=== PATIENT | male | born 1945 | race Caucasian/White ===

== ENCOUNTER 2024-02-11 08:04 | Inpatient (IN) | payer MEDICARE, OTHER, SELFPAY ==
[2024-02-11] VITALS (35 sets, daily range): BP systolic 111–161; BP diastolic 67–101; PULSE 85–124; RESP 16–28; TEMP 36.2–36.8; O2SAT 67–100
--- NOTE | ~2024-02-11 | XR_ITS ---
EXAMINATION: XR chest 1V portable DATE: 02/13/2024 08:03 INDICATION: Shortness of breath. TECHNIQUE: A single frontal view of the chest was obtained. COMPARISON: Chest 2 views 02/11/2024, chest CT 02/12/2024 FINDINGS: There are lucencies in the lungs, consistent with emphysema. There are small pleural effusi ons. There are airspace opacities in the mid and lower lung zones. No pneumothorax. The heart size is normal. IMPRESSION: 1. Airspace opacities in the mid and lower lung zones with mild worsening, consistent with atelectasi s versus pneumonia. 2. Emphysema. 3. Stable small pleural effusions. Reviewed, dictated and finalized at location A. ON OPERATOR IMPRESSION: 1. Airspace opacities in the mid and lower lung zones with mild worsening, cons istent with atelectasis versus pneumonia. 2. Emphysema. 3. Stable small pleural effusions.
--- NOTE | ~2024-02-11 | XR_ITS ---
EXAMINATION: XR chest 2V DATE: 02/11/2024 09:00 INDICATION: Shortness of breath. COPD. TECHNIQUE: frontal and lateral views of the chest were obtained. COMPARISON: None FINDINGS: Interstitial and airspace opacities in the bilateral lower lung zones. There are also small bilateral pleural effusions. No pneumothorax. Cardiomegaly. Severe thoracic spondylosis. Surgical clip project s of the central upper abdomen. IMPRESSION: 1. Opacities in the lower lung zones which could represent either congestive heart failure related mi ld pulmonary edema or pneumonia. 2. Small bilateral pleural effusions. Reviewed, dictated and finalized at location A. OR TECHNICAL WRITER IMPRESSION: 1. Opacities in the lower lung zones which could represent either congestive he art failure related mild pulmonary edema or pneumonia. 2. Small bilateral pleural effusions.
--- NOTE | ~2024-02-11 | CT_ITS ---
EXAMINATION: CTA chest PE protocol DATE: 02/12/2024 13:03 MANAGER GALLERY INDICATION: Pulmonary embolus suspected clinically TECHNIQUE: Computed tomographic angiography (CTA) of the chest was performed with 100 mL Omnipaque-35 0 intravenous contrast. The dose-length product was 182.95 mGy-cm. Maximum intensity projection 3D-re constructions of the aorta and other arteries were constructed by the technologist on a separate work station. COMPARISON: None. FINDINGS: No filling defect within the main or proximal pulmonary arteries. The main pulmonary artery is not enlarged. Calcified atherosclerotic disease within the thoracic aorta without aneurysmal dilatation. Retained fluid within the esophagus with an air-fluid level. Bilateral pleural effusions with adjacent compressive atelectasis. Panlobular emphysematous disease is noted. Bibasilar interstitial thickening is present. Full evaluation for the presence or absence of pulmonary nodules is limited secondary to the rapid re spiratory rate and motion artifact. No mediastinal lymphadenopathy is noted. Within the upper abdomen: Retained gastric contents within the stomach. The bilateral adrenal glands are unremarkable. No acute fractures. No lytic or blastic lesions identified. IMPRESSION: No pulmonary embolus. No aortic dilatation. Bilateral pleural effusions with adjacent compressive atelectasis. Motion artifact precludes adequate evaluation for the presence or absence of pulmonary nodules. Panlobular emphysematous disease. Air-fluid level within the esophagus. Reviewed, dictated and finalized at location A. GER GALLERY IMPRESSION: No pulmonary embolus. No aortic dilatation. Bilateral pleural effusions with adjacent compressive atelectasis. Motion artifact precludes adequate evaluation for the presence or absence of pu lmonary nodules. Panlobular emphysematous disease. Air-fluid level within the esophagus.
--- NOTE | ~2024-02-11 | XR_ITS ---
EXAMINATION: XR barium swallow modified DATE: 02/12/2024 13:14 INDICATION: Witnessed cough with oral intake. TECHNIQUE: The patient was given barium-containing material of multiple consistencies to swallow by t nestor speech pathologist while I performed fluoroscopy. Fluoroscopy exposure time was 2.0 minutes. The n umber of fluoroscopy images saved to the PACS was 1. Dose-area product was 1.27 Gy-cm^2. FINDINGS: There is reduced laryngeal elevation, reduced tongue base retraction, reduced pharyngeal squeeze, genesis lecular residue, pyriform sinus residue, pharyngeal wall residue, laryngeal penetration, and aspirati on. IMPRESSION: 1. Aspiration of all consistencies. 2. Please refer to the speech therapy report for recommendations. Reviewed, dictated and finalized at location A. OS ARCHITECT
--- NOTE | 2024-02-11 08:14 | ECG_ITS ---
Test Date: 2024-02-11 08:22:24 Measurements Intervals [place] Rate: 116 P: 68 IN: 169 QRS: 79 QRSD: 92 T: 46 QT: 317 QTc: 440 Interpretive Statements SINUS TACHYCARDIA NONSPECIFIC ST ELEVATION [0.05+ mV ST ELEVATION] ABNORMAL RHYTHM ECG No previous ECG available for comparison Electronically Signed On 02-16-2024 10:14:19 DIRECTOR OPERATING by Bib Ventura M.D.
[2024-02-11 08:23] LABS: Basophils Percent Auto 0.4 % (0.2-1.2); Eosinophils Absolute Auto 0.1 K/mm3 (0-0.3); Eosinophils Percent Auto 1.2 % (0-4.4); Hematocrit 38.6 % (42.0-52.0); Hemoglobin 11.9 g/dL (14.0-18.0); Immature Granulocyte Absolute 0.04 K/mm3 (0.00-0.031); Immature Granulocyte Percent A 0.4 % (0-0.5); Lymphocytes Absolute Auto 2.09 K/mm3 (0.9-3.2); Mean Corpuscular HGB Conc 30.8 g/dl (32-36); Mean Corpuscular Hemoglobin 28.6 pg (26-34); Mean Corpuscular Volume 92.8 fl (80-100); Mean Platelet Volume 10.7 fl (7.4-10.4); Monocytes Percent Auto 9.3 % (2.6-8.5); Neutrophils Absolute Auto 7.7 K/mm3 (1.3-6.7); Neutrophils Percent Auto 69.7 % (45.5-73.1); Platelet Count Result 539 k/mm3 (150-375); Red Blood Count 4.16 M/mm3 (4.6-6.20); Red Cell Distribution Width 15.9 % (11.5-14.5)
--- NOTE | 2024-02-11 08:30 | PC.NURSE ---
Upon arrival to ED, pt O2 sats 70% room air. Pt placed on 15L non-rebreather and sats elevated to 95%. Pt reports SOB had some improvement. Pt placed on 4L NC but unable to maintain O2 sats WNL. O2 dropped to 86% on 4L NC. Pt placed back on non-rebreather on 8L. made aware.
[2024-02-11 08:35] LABS: Alanine Aminotransferase 11 U/L (6-50); Albumin Level 3.9 g/dL (3.5-5.1); Alkaline Phosphatase 183 U/L (38-126); Anion Gap -1 mmol/L (4-12); Aspartate Amino Transferase 19 U/L (17-59); Bilirubin,Total 0.8 mg/dL (0.2-1.3); Blood Urea Nitrogen 19 mg/dL (9-20); Calcium 9.3 mg/dL (8.4-10.2); Carbon Dioxide 39 mmol/L (22-30); Chloride 99 mmol/L (98-107); Estimated CRCL calculation 62 ml/min; Estimated Glomerular Filt Rate > 60; Glucose 131 mg/dL (65-110); Potassium 4.2 mmol/L (3.4-5.0); Sodium 137 mmol/L (137-145)
[2024-02-11 08:46] LABS: Hypochromasia 1+; Platelet Estimate Increased (Adequate); Schistocytes None Seen
[2024-02-11 09:23] LABS: Alveolar/Arterial O2 Gradient 587.3 mmHg; Base Excess ABG 7.1 mEq/l (+/-2.0); Fractional Inspired Oxygen 100 %; HCO3 ABG 32.9 mEq/l (22.0-26.0); Methemoglobin ABG 0.1 %THb (0-1.5); Oxygen Content ABG 14.9 %vol (16.0-22.0); Oxygen Saturation ABG 94.6 % (95.0-100.0); Oxyhemoglobin 92.9 % THb (90.0-100.0); PCO2 ABG 52.9 mmHg (35.0-45.0); PO2 ABG 72.8 mmHg (80.0-100.0); PO2 FiO2 Ratio Arterial Blood 0.73 %; Total Hemoglobin 11.4 g/dL (12.0-18.0); pH ABG 7.412 (7.350-7.450)
[2024-02-11 09:24] LABS: Device NON-REBREATHER MASK; Modified Allen's Test Pass; Site Drawn RIGHT RADIAL
--- NOTE | 2024-02-11 09:29 | PC.NURSE ---
ED RT placed pt back on NC 6L.
[2024-02-11] MEDS: IPRATROPIUM 0.5 MG/ALBUTEROL SULFATE 2.5 MG AMPUL.NEB 3 ML INHALATION (09:37)
[2024-02-11] MEDS: ALBUTEROL SULFATE NEB 2.5 MG/3 ML INH INHALATION (09:37)
--- NOTE | 2024-02-11 10:16 | ED.SOB ---
HPI - SOB/Dyspnea General Chief Complaint: Shortness of Breath/Dyspnea <NATHAN Bryan Last Filed: 02/11/24 16:33> Stated Complaint: SOB <NATHAN Bryan Last Filed: 02/11/24 16:33> Time Seen by Provider: 02/11/24 09:04 <NATHAN Bryan Last Filed: 02/11/24 16:33> Source: patient, EMS and old records reviewed <NATHAN Bryan Last Filed: 02/11/24 16:33> Mode of arrival: EMS <NATHAN Bryan Last Filed: 02/11/24 16:33> Limitations: no limitations <NATHAN Bryan Last Filed: 02/11/24 16:33> History of Present Illness HPI Narrative: Patient is a 78-year-old male, past medical history of COPD, CHF, seizure disorder on Keppra, aortic valve stenosis, mitral valve stenosis, CAD, pulmonary HTN, DM, who presents to the ED via EMS with report of SOB. Per records, patient was admitted to [facility] on 02/08 from [facility] s/p cardiac arrest, AMS with possible CVA, NSTEMI, sepsis. Per staff at [facility], patient became acutely dyspneic today and was noted to be hypoxic down into the 70s. He does wear 2 L nasal cannula at night, this does not typically require oxygen supplementation throughout the day. Was placed on non-rebreather. Was given a nebulizer treatment and Solu-Medrol in route to the ED. Patient reports having diffuse chest pressure, recent cough, subjective fevers. Denies lower ext swelling <NATHAN Bryan Last Filed: 02/11/24 16:33> Related Data Home Medications: Home Medications ?Medication ?Instructions ?Recorded ?Confirmed ?Last Taken ?Type apixaban 5 mg tablet 5 mg PO BID 02/09/24 02/11/24 02/11/24 History aspirin 81 mg capsule 81 mg PO DAILY 02/09/24 02/11/24 02/11/24 History atorvastatin 80 mg tablet 80 mg PO HS 02/09/24 02/11/24 02/11/24 History cholecalciferol (vitamin D3) 25 25 mcg PO DAILY 02/09/24 02/11/24 02/11/24 History mcg (1,000 unit) chewable tablet (Vitamin D3) ferrous sulfate 325 mg (65 mg 325 mg PO .3x week 02/09/24 02/11/24 02/11/24 History iron) tablet (Feosol) finasteride 5 mg tablet 5 mg PO DAILY 02/09/24 02/11/24 02/11/24 History levetiracetam 1,000 mg tablet 1,000 mg PO BID 02/09/24 02/11/24 02/11/24 History (Keppra) lidocaine 4 % topical patch 1 patch topical Q24H 02/09/24 02/11/24 02/11/24 History (Aspercreme (lidocaine)) pantoprazole 40 mg tablet,delayed 40 mg PO QAM 02/09/24 02/11/24 02/11/24 History release polyethylene glycol 3350 17 gram 17 g PO DAILY 02/09/24 02/11/24 02/11/24 History oral powder packet (Miralax) prednisone 10 mg tablet 5 mg PO DIRECTED 02/09/24 02/11/24 02/11/24 History quetiapine 50 mg tablet 50 mg PO HS 02/09/24 02/11/24 02/11/24 History sennosides 8.6 mg-docusate sodium 1 tab-cap PO BID 02/09/24 02/11/24 02/11/24 History 50 mg tablet (Senna with Docusate Sodium) tiotropium 2.5 mcg-olodaterol 2.5 2 inh inhalation DAILY 02/09/24 02/11/24 02/11/24 History mcg/actuation mist for inhalation (Stiolto Respimat) tramadol 50 mg tablet 50 mg PO BID PRN moderate or more 02/09/24 02/11/24 02/11/24 History severe pain albuterol sulfate 2.5 mg/3 mL 2.5 mg inhalation Q6H PRN 02/10/24 02/11/24 02/11/24 History (0.083 %) solution for nebulization shortness of breath albuterol sulfate 90 mcg/actuation 1 puff inhalation QID PRN wheezing 02/10/24 02/11/24 02/11/24 History aerosol inhaler lacosamide 100 mg tablet 100 mg PO Q12H 02/10/24 02/11/24 02/11/24 History melatonin 5 mg tablet 5 mg PO HS PRN sleep 02/10/24 02/11/24 02/11/24 History potassium chloride 10 mEq 20 meq PO DAILY 02/10/24 02/11/24 02/10/24 History tablet,extended release(part/cryst) (Klor-Con M) bumetanide 2 mg tablet 2 mg PO DAILY 02/11/24 02/11/24 02/11/24 History mometasone-formoterol HFA 200 2 inh inhalation Q12H 02/11/24 02/11/24 02/11/24 History mcg-5 mcg/actuation aerosol inhaler (Dulera) <Martina Manning PA-C - Last Filed: 02/11/24 16:33> Allergies/Adverse Reactions: Allergies Allergy/AdvReac Type Severity Reaction Status Date / Time gabapentin Allergy Mild Rash Verified 02/09/24 21:42 <Martina Manning PA-C - Last Filed: 02/11/24 16:33> Review of Systems Review of Systems: All systems reviewed & are unremarkable except as noted in HPI. <Martina Manning PA-C - Last Filed: 02/11/24 16:33> All systems reviewed & are unremarkable except as noted in HPI and below <Martina Manning PA-C - Last Filed: 02/11/24 16:33> [facility] Family History Family History: Family History (Updated 02/11/24 @ 18:51 by Joanne Jameson RN) Mother COPD (chronic obstructive pulmonary disease) Diabetes mellitus Father Colon cancer <Martina Manning PA-C - Last Filed: 02/11/24 16:33> Social History Social History: Social History Smoking packs per day: 0.5 Smoking cigarettes per day: 10.0 Smoking status: Current every day smoker Second hand tobacco smoke exposure: Yes Alcohol intake: never Substance use: never Substance use type: does not use Do You Feel Safe in your Home?: Yes Lack of Transportation: No Lack of Food: Never True Current Housing: I Have Housing Concerned About Future Housing: No Difficulty Paying Gas/Electric Bills: No Difficulty Paying for Meds: No Currently Unemployed: No Education: High School Diploma/GED Difficulty w/ Childcare or Family Care: No Spiritual care concerns: No <Martina Manning PA-C - Last Filed: 02/11/24 16:33> Exam Narrative: GENERAL: Chronically ill/elderly appearing, thin, in mild acute distress. HEAD: Normocephalic, atraumatic. RESPIRATORY: Airway patent, respirations labored and tachypneic. Some accessory muscle use. Diffuse rhonchi and crackles throughout bases bilaterally. Occasional expiratory wheezing heard throughout right mid lung field. CARDIOVASCULAR: Tachycardic with regular rhythm without murmurs, rubs, or gallops. ABDOMINAL: Soft, nontender, nondistended. Normoactive BS. MUSCULOSKELETAL: Moves all extremities. No gross deformities. No peripheral edema. SKIN: Warm, dry, normal color. NEURO: A&O X3. Speech clear. Able to answer all questions appropriately. Cranial nerves II-XII grossly intact. Steady gait. No ataxic movements. No focal deficits. PSYCHIATRIC: Appropriate mood and affect. Normal interaction. <Martina Manning PA-C - Last Filed: 02/11/24 16:33> Course RN NIGHT/PA Physician Supervision I was notified when this patient came in that they were initially hypoxic at 88% but that oxygen settings were being tweaked. Subsequently saw on the monitor that they were saturating 95-96%. Patient was evaluated by the PA and I am notified that they were being admitted. I otherwise did not personally evaluate this patient but was available for consultation and was not involved in their care. <Lorelei Harrell MD - Last Filed: 02/11/24 21:53> Vital Signs Vital signs: Vital Signs Temperature 97.2 F L 02/11/24 08:01 Pulse Rate 113 H 02/11/24 08:01 Respiratory Rate 24 H 02/11/24 08:01 Blood Pressure 148/80 H 02/11/24 08:01 Pulse Oximetry 95 02/11/24 08:01 Oxygen Delivery Non-Rebreather Mask 02/11/24 08:01 Oxygen Flow Rate 15 02/11/24 08:01 Temperature 97.2 F L 02/11/24 21:32 Pulse Rate 85 02/11/24 21:32 Respiratory Rate 20 02/11/24 21:32 Blood Pressure 134/72 02/11/24 21:32 Pulse Oximetry 99 02/11/24 21:32 Oxygen Delivery High Flow Therapy with Nasal Cannula 02/11/24 11:59 Oxygen Flow Rate 6 02/11/24 11:59 Fraction of Inspired Oxygen 44 02/11/24 09:38 <Martina Manning PA-C - Last Filed: 02/11/24 16:33> Vital Signs Temperature 97.2 F L 02/11/24 08:01 Pulse Rate 113 H 02/11/24 08:01 Respiratory Rate 24 H 02/11/24 08:01 Blood Pressure 148/80 H 02/11/24 08:01 Pulse Oximetry 95 02/11/24 08:01 Oxygen Delivery Non-Rebreather Mask 02/11/24 08:01 Oxygen Flow Rate 15 02/11/24 08:01 Temperature 97.2 F L 02/11/24 21:32 Pulse Rate 85 02/11/24 21:32 Respiratory Rate 20 02/11/24 21:32 Blood Pressure 134/72 02/11/24 21:32 Pulse Oximetry 99 02/11/24 21:32 Oxygen Delivery High Flow Therapy with Nasal Cannula 02/11/24 11:59 Oxygen Flow Rate 6 02/11/24 11:59 Fraction of Inspired Oxygen 44 02/11/24 09:38 <Lorelei Harrell MD - Last Filed: 02/11/24 21:53> MDM - SOB/Dyspnea MDM Narrative Medical decision making narrative: Patient presented to ED from [facility] with report of shortness of breath. Recent prolonged hospitalization. Patient initially presented on non-rebreather mask. He was tachycardic and tachypneic, diffuse rhonchi throughout lung bases. Respiratory was notified. ABG was obtained and without significant CO2 retention. Normal pH. Was able to be titrated down to 6 L nasal cannula. Patient reports he typically wears 2 L nasal cannula at night, otherwise does not wear oxygen throughout the day. Complains of recent cough and subjective fevers, also reporting mild chest discomfort currently. EKG with sinus tachycardia, nonspecific ST changes. Baseline troponin 0.024. Will continue to trend. Chest x-ray: IMPRESSION: 1. Opacities in the lower lung zones which could represent either congestive heart failure related mild pulmonary edema or pneumonia. 2. Small bilateral pleural effusions. BNP minimally elevated to 519. Patient given dose of Lasix in the ED. Viral swabs negative. Patient is on eliquis BID, low suspicion for PE. Hypoxia attributable to chf/PNA. With leukocytosis, report of recent cough and subjective fevers, will start patient on antibiotics for possible concurrent pneumonia. Blood cultures were obtained. Rocephin and azithromycin started in the ED. Patient will be admitted for further evaluation and management, titration back to RA. Discussed case with [facility]y hospitalist RN NIGHT, accepted patient for admission. Patient in agreement with plan and need for admission. <Martina Manning PA-C - Last Filed: 02/11/24 16:33> Medical Records Attestation: I reviewed the patient's medical records. <NATHAN Bryan Last Filed: 02/11/24 16:33> Lab Data Attestation: I reviewed the patient's lab results. <Martina Manning PA-C - Last Filed: 02/11/24 16:33> Result diagrams: 02/11/24 08:18 02/11/24 08:18 <NATHAN Bryan Last Filed: 02/11/24 16:33> Labs: Lab Results 02/11/24 02/11/24 02/11/24 Range/Units 08:18 09:21 09:44 WBC 11.0 H (4.5-10.0) K/mm3 RBC 4.16 L (4.6-6.20) M/mm3 Hgb 11.9 L (14.0-18.0) g/dL Hct 38.6 L (42.0-52.0) % MCV 92.8 (80-100) fl MCH 28.6 (26-34) pg MCHC 30.8 L (32-36) g/dl RDW 15.9 H (11.5-14.5) % Plt Count 539 H (150-375) k/mm3 MPV 10.7 H (7.4-10.4) fl Immature Gran % (Auto) 0.4 (0-0.5) % Neut % (Auto) 69.7 (45.5-73.1) % Lymph % (Auto) 19.0 (18.3-44.2) % [place] % (Auto) 9.3 H (2.6-8.5) % Eos % (Auto) 1.2 (0-4.4) % Baso % (Auto) 0.4 (0.2-1.2) % Lymph # (Auto) 2.09 (0.9-3.2) K/mm3 [place] # (Auto) 1.0 H (0.1-0.6) K/mm3 Eos # (Auto) 0.1 (0-0.3) K/mm3 Baso # (Auto) 0.0 (0.0-0.1) K/mm3 Abs Immat Gran (auto) 0.04 H (0.00-0.031) K/mm3 Absolute Neuts (auto) 7.7 H (1.3-6.7) K/mm3 Absolute Nucleated RBC 0.000 (0.0-0.012) K/mm3 Nucleated RBC % 0.0 (0.0-0.2) % Platelet Estimate Increased (Adequate) Hypochromasia 1+ Schistocytes None seen Methemoglobin 0.1 (0-1.5) %THb Sodium 137 (137-145) mmol/L Potassium 4.2 (3.4-5.0) mmol/L Chloride 99 (98-107) mmol/L Carbon Dioxide 39 H (22-30) mmol/L Anion Gap -1 L (4-12) mmol/L BUN 19 (9-20) mg/dL Creatinine 0.80 (0.7-1.3) mg/dL Estim Creat Clear Calc 62 ml/min Estimated GFR > 60 (59 - ) Glucose 131 H (65-110) mg/dL Calcium 9.3 (8.4-10.2) mg/dL Total Bilirubin 0.8 (0.2-1.3) mg/dL AST 19 (17-59) U/L ALT 11 (6-50) U/L Alkaline Phosphatase 183 H (38-126) U/L Troponin I (0.000-0.034) ng/mL NT-Pro-B Natriuret Pep (19.9-100) pg/mL Total Protein 8.0 (6.3-8.2) g/dL Albumin 3.9 (3.5-5.1) g/dL Influenza A (RT-PCR) Negative (Negative) Influenza B (RT-PCR) Negative (Negative) RSV (RT-PCR) Negative (Negative) SARS-CoV-2 RNA (RT-PCR) Negative (Negative) 02/11/24 Range/Units 10:47 WBC (4.5-10.0) K/mm3 RBC (4.6-6.20) M/mm3 Hgb (14.0-18.0) g/dL Hct (42.0-52.0) % MCV (80-100) fl MCH (26-34) pg MCHC (32-36) g/dl RDW (11.5-14.5) % Plt Count (150-375) k/mm3 MPV (7.4-10.4) fl Immature Gran % (Auto) (0-0.5) % Neut % (Auto) (45.5-73.1) % Lymph % (Auto) (18.3-44.2) % [place] % (Auto) (2.6-8.5) % Eos % (Auto) (0-4.4) % Baso % (Auto) (0.2-1.2) % Lymph # (Auto) (0.9-3.2) K/mm3 [place] # (Auto) (0.1-0.6) K/mm3 Eos # (Auto) (0-0.3) K/mm3 Baso # (Auto) (0.0-0.1) K/mm3 Abs Immat Gran (auto) (0.00-0.031) K/mm3 Absolute Neuts (auto) (1.3-6.7) K/mm3 Absolute Nucleated RBC (0.0-0.012) K/mm3 Nucleated RBC % (0.0-0.2) % Platelet Estimate (Adequate) Hypochromasia Schistocytes Methemoglobin (0-1.5) %THb Sodium (137-145) mmol/L Potassium (3.4-5.0) mmol/L Chloride (98-107) mmol/L Carbon Dioxide (22-30) mmol/L Anion Gap (4-12) mmol/L BUN (9-20) mg/dL Creatinine (0.7-1.3) mg/dL Estim Creat Clear Calc ml/min Estimated GFR (59 - ) Glucose (65-110) mg/dL Calcium (8.4-10.2) mg/dL Total Bilirubin (0.2-1.3) mg/dL AST (17-59) U/L ALT (6-50) U/L Alkaline Phosphatase (38-126) U/L Troponin I 0.024 (0.000-0.034) ng/mL NT-Pro-B Natriuret Pep 519 H (19.9-100) pg/mL Total Protein (6.3-8.2) g/dL Albumin (3.5-5.1) g/dL Influenza A (RT-PCR) (Negative) Influenza B (RT-PCR) (Negative) RSV (RT-PCR) (Negative) SARS-CoV-2 RNA (RT-PCR) (Negative) <Martina Manning PA-C - Last Filed: 02/11/24 16:33> Lab Results 02/11/24 02/11/24 02/11/24 Range/Units 08:18 09:21 09:44 WBC 11.0 H (4.5-10.0) K/mm3 RBC 4.16 L (4.6-6.20) M/mm3 Hgb 11.9 L (14.0-18.0) g/dL Hct 38.6 L (42.0-52.0) % MCV 92.8 (80-100) fl MCH 28.6 (26-34) pg MCHC 30.8 L (32-36) g/dl RDW 15.9 H (11.5-14.5) % Plt Count 539 H (150-375) k/mm3 MPV 10.7 H (7.4-10.4) fl Immature Gran % (Auto) 0.4 (0-0.5) % Neut % (Auto) 69.7 (45.5-73.1) % Lymph % (Auto) 19.0 (18.3-44.2) % [place] % (Auto) 9.3 H (2.6-8.5) % Eos % (Auto) 1.2 (0-4.4) % Baso % (Auto) 0.4 (0.2-1.2) % Lymph # (Auto) 2.09 (0.9-3.2) K/mm3 [place] # (Auto) 1.0 H (0.1-0.6) K/mm3 Eos # (Auto) 0.1 (0-0.3) K/mm3 Baso # (Auto) 0.0 (0.0-0.1) K/mm3 Abs Immat Gran (auto) 0.04 H (0.00-0.031) K/mm3 Absolute Neuts (auto) 7.7 H (1.3-6.7) K/mm3 Absolute Nucleated RBC 0.000 (0.0-0.012) K/mm3 Nucleated RBC % 0.0 (0.0-0.2) % Platelet Estimate Increased (Adequate) Hypochromasia 1+ Schistocytes None seen Methemoglobin 0.1 (0-1.5) %THb Sodium 137 (137-145) mmol/L Potassium 4.2 (3.4-5.0) mmol/L Chloride 99 (98-107) mmol/L Carbon Dioxide 39 H (22-30) mmol/L Anion Gap -1 L (4-12) mmol/L BUN 19 (9-20) mg/dL Creatinine 0.80 (0.7-1.3) mg/dL Estim Creat Clear Calc 62 ml/min Estimated GFR > 60 (59 - ) Glucose 131 H (65-110) mg/dL Calcium 9.3 (8.4-10.2) mg/dL Total Bilirubin 0.8 (0.2-1.3) mg/dL AST 19 (17-59) U/L ALT 11 (6-50) U/L Alkaline Phosphatase 183 H (38-126) U/L Troponin I (0.000-0.034) ng/mL NT-Pro-B Natriuret Pep (19.9-100) pg/mL Total Protein 8.0 (6.3-8.2) g/dL Albumin 3.9 (3.5-5.1) g/dL Influenza A (RT-PCR) Negative (Negative) Influenza B (RT-PCR) Negative (Negative) RSV (RT-PCR) Negative (Negative) SARS-CoV-2 RNA (RT-PCR) Negative (Negative) 02/11/24 Range/Units 10:47 WBC (4.5-10.0) K/mm3 RBC (4.6-6.20) M/mm3 Hgb (14.0-18.0) g/dL Hct (42.0-52.0) % MCV (80-100) fl MCH (26-34) pg MCHC (32-36) g/dl RDW (11.5-14.5) % Plt Count (150-375) k/mm3 MPV (7.4-10.4) fl Immature Gran % (Auto) (0-0.5) % Neut % (Auto) (45.5-73.1) % Lymph % (Auto) (18.3-44.2) % [place] % (Auto) (2.6-8.5) % Eos % (Auto) (0-4.4) % Baso % (Auto) (0.2-1.2) % Lymph # (Auto) (0.9-3.2) K/mm3 [place] # (Auto) (0.1-0.6) K/mm3 Eos # (Auto) (0-0.3) K/mm3 Baso # (Auto) (0.0-0.1) K/mm3 Abs Immat Gran (auto) (0.00-0.031) K/mm3 Absolute Neuts (auto) (1.3-6.7) K/mm3 Absolute Nucleated RBC (0.0-0.012) K/mm3 Nucleated RBC % (0.0-0.2) % Platelet Estimate (Adequate) Hypochromasia Schistocytes Methemoglobin (0-1.5) %THb Sodium (137-145) mmol/L Potassium (3.4-5.0) mmol/L Chloride (98-107) mmol/L Carbon Dioxide (22-30) mmol/L Anion Gap (4-12) mmol/L BUN (9-20) mg/dL Creatinine (0.7-1.3) mg/dL Estim Creat Clear Calc ml/min Estimated GFR (59 - ) Glucose (65-110) mg/dL Calcium (8.4-10.2) mg/dL Total Bilirubin (0.2-1.3) mg/dL AST (17-59) U/L ALT (6-50) U/L Alkaline Phosphatase (38-126) U/L Troponin I 0.024 (0.000-0.034) ng/mL NT-Pro-B Natriuret Pep 519 H (19.9-100) pg/mL Total Protein (6.3-8.2) g/dL Albumin (3.5-5.1) g/dL Influenza A (RT-PCR) (Negative) Influenza B (RT-PCR) (Negative) RSV (RT-PCR) (Negative) SARS-CoV-2 RNA (RT-PCR) (Negative) <Lorelei Harrell MD - Last Filed: 02/11/24 21:53> ABG Data ABG results: 02/11/24 09:21 Puncture Site Right radial ABG pH 7.412 ABG pCO2 52.9 H ABG pO2 72.8 L ABG PO2/FiO2 Ratio 0.73 ABG HCO3 32.9 H ABG O2 Saturation 94.6 L ABG O2 Content 14.9 L ABG Base Excess 7.1 A-a Gradient 587.3 Oxyhemoglobin 92.9 Carboxyhemoglobin 1.0 Reduced Hemoglobin 6.0 H Total Hemoglobin 11.4 L O2 Delivery Device Non-rebreather mask O2 Liters/Min 8.0 FiO2 100 <Martina Manning PA-C - Last Filed: 02/11/24 16:33> 02/11/24 09:21 Puncture Site Right radial ABG pH 7.412 ABG pCO2 52.9 H ABG pO2 72.8 L ABG PO2/FiO2 Ratio 0.73 ABG HCO3 32.9 H ABG O2 Saturation 94.6 L ABG O2 Content 14.9 L ABG Base Excess 7.1 A-a Gradient 587.3 Oxyhemoglobin 92.9 Carboxyhemoglobin 1.0 Reduced Hemoglobin 6.0 H Total Hemoglobin 11.4 L O2 Delivery Device Non-rebreather mask O2 Liters/Min 8.0 FiO2 100 <Lorelei Harrell MD - Last Filed: 02/11/24 21:53> Attestation: I personally reviewed and interpreted this ABG as follows: <Martina Manning PA-C - Last Filed: 02/11/24 16:33> Imaging Data Attestation: I personally reviewed and interpreted this imaging study as follows: <Martina Manning PA-C - Last Filed: 02/11/24 16:33> Radiologist's impression: ITS Impressions Chest X-Ray 02/11/24 09:05 IMPRESSION: 1. Opacities in the lower lung zones which could represent either congestive heart failure related mild pulmonary edema or pneumonia. 2. Small bilateral pleural effusions. <NATHAN Bryan Last Filed: 02/11/24 16:33> ECG Data EKG #1: Attestation: I personally reviewed and interpreted this ECG as follows: <NATHAN Bryan Last Filed: 02/11/24 16:33> ECG completion date: 02/11/24 <NATHAN Bryan Last Filed: 02/11/24 16:33> ECG completion time: 08:22 <NATHAN Bryan Last Filed: 02/11/24 16:33> EKG Interpretation: tachycardia (116), sinus rhythm, non-specific ST changes and other (baseline artifact and wander) <NATHAN Bryan Last Filed: 02/11/24 16:33> Discharge Plan Discharge Clinical Impression: Acute hypoxic respiratory failure Pneumonia Qualifiers: Pneumonia type: due to unspecified organism Laterality: bilateral Lung location: lower lobe of lung Qualified Code(s): J18.9 - Pneumonia, unspecified organism Acute exacerbation of CHF (congestive heart failure) Qualifiers: Heart failure type: unspecified Qualified Code(s): I50.9 - Heart failure, unspecified <NATHAN Bryan Last Filed: 02/11/24 16:33> Patient Disposition: Still a Patient <NATHAN Bryan Last Filed: 02/11/24 16:33> Condition: Serious <NATHAN Bryan Last Filed: 02/11/24 16:33>
[2024-02-11 11:17] LABS: NT Pro B Type Natriuretic Pept 519 pg/mL (19.9-100); Troponin I 0.024 ng/mL (0.000-0.034)
[2024-02-11] MEDS: AZITHROMYCIN 500 MG/NS 250 ML 500 MG/250 ML BAG 250 MG IVPB (11:18)
[2024-02-11] MEDS: FUROSEMIDE INJ 40 MG/4 ML VIAL IV PUSH (11:19)
[2024-02-11 11:43] LABS: Influenza A QL RT-PCR Negative (Negative); Influenza B QL RT-PCR Negative (Negative); RSV RNA, RT-PCR Negative (Negative); SARS-CoV-2 RNA PCR Negative (Negative)
--- NOTE | 2024-02-11 13:32 | ECG_ITS ---
Test Date: 2024-02-11 13:39:15 Measurements Intervals [place] Rate: 106 P: 75 TX: 170 QRS: 76 QRSD: 93 T: 64 QT: 338 QTc: 450 Interpretive Statements SINUS TACHYCARDIA NONSPECIFIC ST ELEVATION [0.05+ mV ST ELEVATION] ABNORMAL RHYTHM ECG Compared to ECG 02/11/2024 08:22:24 No significant changes Electronically Signed On 02-16-2024 10:19:32 [facility] by Bib Ventura M.D.
[2024-02-11 14:07] LABS: Troponin I 0.021 ng/mL (0.000-0.034)
--- NOTE | 2024-02-11 15:15 | P.HP_ITS ---
H&P: HPI History of Present Illness Date/Time: 02/11/24 14:15 Chief Complaint: Shortness of Breath Narrative: Patient was brought in to the ER with reports of altered mental status at home. Patient has a past medical history of COPD, CHF, seizure disorder on Keppra, aortic valve stenosis, mitral valve stenosis, CAD, pulmonary HTN, DM. Per medical records, patient was admitted to [facility] on 02/08 from [facility] s/p cardiac arrest, AMS with possible CVA, NSTEMI, sepsis. Per staff at [facility], patient became acutely dyspneic today and was noted to be hypoxic down into the 70s. He does wear 2 L nasal cannula at night, and does not typically require oxygen supplementation throughout the day. Was placed on non-rebreather, given a nebulizer treatment and Solu-Medrol in route to the ED. Patient keeps asking for just 1 cigarette, which he states he gets at home. Review of Systems Review of Systems: All systems reviewed & are unremarkable except as noted in HPI and below PMFSH Social History Social History Smoking packs per day: 0.5 Smoking cigarettes per day: 10.0 Smoking status: Current every day smoker Tobacco type: cigarettes Second hand tobacco smoke exposure: Yes Alcohol intake: former Substance use: never Substance use type: does not use Do You Feel Safe in your Home?: Yes Lack of Transportation: No Lack of Food: Never True Current Housing: I Have Housing Concerned About Future Housing: No Difficulty Paying Gas/Electric Bills: No Difficulty Paying for Meds: No Currently Unemployed: No Education: High School Diploma/GED Difficulty w/ Childcare or Family Care: No Spiritual care concerns: No Meds Home Medications and Allergies Home Medications ?Medication ?Instructions ?Recorded ?Confirmed ?Type apixaban 5 mg tablet 5 mg PO BID 02/09/24 02/09/24 History aspirin 81 mg capsule 81 mg PO DAILY 02/09/24 02/09/24 History atorvastatin 80 mg tablet 80 mg PO HS 02/09/24 02/09/24 History cholecalciferol (vitamin D3) 25 25 mcg PO DAILY 02/09/24 02/09/24 History mcg (1,000 unit) chewable tablet (Vitamin D3) ferrous sulfate 325 mg (65 mg 325 mg PO .3x week 02/09/24 02/09/24 History iron) tablet (Feosol) finasteride 5 mg tablet 5 mg PO DAILY 02/09/24 02/09/24 History fluticasone 250 mcg-salmeterol 50 1 inh inhalation Q12H 02/09/24 02/09/24 History mcg/dose blistr powdr for inhalation (Advair Diskus) levetiracetam 1,000 mg tablet 1,000 mg PO BID 02/09/24 02/09/24 History (Keppra) lidocaine 4 % topical patch 1 patch topical Q24H 02/09/24 02/09/24 History (Aspercreme (lidocaine)) nicotine 21 mg/24 hr daily 1 patch transdermal DAILY PRN 02/09/24 02/09/24 History transdermal patch smoking cessation oxybutynin chloride 5 mg 5 mg PO DAILY 02/09/24 02/09/24 History tablet,extended release 24 hr pantoprazole 40 mg tablet,delayed 40 mg PO QAM 02/09/24 02/09/24 History release polyethylene glycol 3350 17 gram 17 g PO DAILY 02/09/24 02/09/24 History oral powder packet (Miralax) prednisone 10 mg tablet 10 mg PO DIRECTED 02/09/24 02/09/24 History quetiapine 50 mg tablet 50 mg PO HS 02/09/24 02/09/24 History sennosides 8.6 mg-docusate sodium 1 tab-cap PO BID 02/09/24 02/09/24 History 50 mg tablet (Senna with Docusate Sodium) tiotropium 2.5 mcg-olodaterol 2.5 2 inh inhalation DAILY 02/09/24 02/09/24 History mcg/actuation mist for inhalation (Stiolto Respimat) torsemide 40 mg tablet 40 mg PO QAM 02/09/24 02/09/24 History tramadol 50 mg tablet 50 mg PO BID PRN moderate or more 02/09/24 02/09/24 History severe pain albuterol sulfate 2.5 mg/3 mL 2.5 mg inhalation Q6H PRN 02/10/24 02/10/24 History (0.083 %) solution for nebulization shortness of breath albuterol sulfate 90 mcg/actuation 1 puff inhalation QID PRN wheezing 02/10/24 02/10/24 History aerosol inhaler lacosamide 100 mg tablet 100 mg PO Q12H 02/10/24 02/10/24 History melatonin 5 mg tablet 5 mg PO HS PRN sleep 02/10/24 02/10/24 History potassium chloride 10 mEq 10 meq PO DAILY 02/10/24 02/10/24 History tablet,extended release(part/cryst) (Klor-Con M) Allergies Allergy/AdvReac Type Severity Reaction Status Date / Time gabapentin Allergy Mild Rash Verified 02/09/24 21:42 Vital Signs Vital Signs - 24 hr 02/11/24 08:01 02/11/24 08:09 02/11/24 08:11 Temperature 97.2 F L Pulse Rate 113 H 118 H 124 H Respiratory Rate 24 H 23 H 24 H Blood Pressure 148/80 H 148/80 H Pulse Oximetry 95 67 L 93 Oxygen Delivery Non-Rebreather Mask Oxygen Flow Rate 15 Fraction of Inspired Oxygen 02/11/24 08:15 02/11/24 08:15 02/11/24 08:20 Temperature Pulse Rate 120 H Respiratory Rate 23 H Blood Pressure 157/101 H Pulse Oximetry 73 L 96 95 Oxygen Delivery Room Air Non-Rebreather Mask Oxygen Flow Rate 10 Fraction of Inspired Oxygen 02/11/24 08:20 02/11/24 08:30 02/11/24 08:31 Temperature Pulse Rate 114 H Respiratory Rate 22 H Blood Pressure Pulse Oximetry 94 94 94 Oxygen Delivery Nasal Cannula Non-Rebreather Mask Oxygen Flow Rate 4 8 Fraction of Inspired Oxygen 02/11/24 08:53 02/11/24 09:15 02/11/24 09:28 Temperature Pulse Rate 123 H 115 H Respiratory Rate 25 H 19 Blood Pressure 161/80 H Pulse Oximetry 96 97 97 Oxygen Delivery Non-Rebreather Mask Oxygen Flow Rate 8 Fraction of Inspired Oxygen 02/11/24 09:30 02/11/24 09:37 02/11/24 09:38 Temperature Pulse Rate 113 H 113 H Respiratory Rate 21 H 22 H Blood Pressure 132/71 Pulse Oximetry 100 97 Oxygen Delivery Nasal Cannula Oxygen Flow Rate 6 Fraction of Inspired Oxygen 44 02/11/24 09:59 02/11/24 10:00 02/11/24 10:00 Temperature Pulse Rate 120 H Respiratory Rate 24 H Blood Pressure Pulse Oximetry 74 L 94 Oxygen Delivery High Flow Nasal Cannula Oxygen Flow Rate 15 Fraction of Inspired Oxygen 02/11/24 10:00 02/11/24 10:01 02/11/24 10:30 Temperature Pulse Rate 121 H 118 H Respiratory Rate 27 H 17 Blood Pressure 155/86 H Pulse Oximetry 92 93 98 Oxygen Delivery High Flow Therapy with Na Oxygen Flow Rate 13 Fraction of Inspired Oxygen 02/11/24 11:00 02/11/24 11:00 02/11/24 11:30 Temperature Pulse Rate 115 H 109 H Respiratory Rate 28 H 22 H Blood Pressure 128/80 119/70 Pulse Oximetry 98 98 100 Oxygen Delivery High Flow Therapy with Na Oxygen Flow Rate 10 Fraction of Inspired Oxygen 02/11/24 11:36 02/11/24 11:59 02/11/24 12:00 Temperature Pulse Rate 106 H Respiratory Rate 20 Blood Pressure 118/71 Pulse Oximetry 100 100 100 Oxygen Delivery High Flow Therapy with Na High Flow Therapy with Na Oxygen Flow Rate 9 6 Fraction of Inspired Oxygen 02/11/24 12:30 02/11/24 13:00 02/11/24 13:30 Temperature Pulse Rate 107 H 108 H 112 H Respiratory Rate 18 18 23 H Blood Pressure 119/75 116/71 119/79 Pulse Oximetry 100 100 Oxygen Delivery Oxygen Flow Rate Fraction of Inspired Oxygen 02/11/24 14:00 02/11/24 14:30 Temperature Pulse Rate 106 H 105 H Respiratory Rate 18 17 Blood Pressure 119/67 111/71 Pulse Oximetry 100 98 Oxygen Delivery Oxygen Flow Rate Fraction of Inspired Oxygen Exam Narrative: General: Chronically ill appearing, respiratory distress with minimal exertion. HEENT: Atraumatic, PERRL, moist mucosa, EOM, anicteric. NECK: Supple. Lungs: Generally coarse and congested, expiratory wheezes, labored with minimal exertion. Heart: RRR, Grade II R. Sternal border murmur. Abdomen: Soft, non-tender, non-distended, +ve sounds X4 quadrants. Extremities: Acyanotic, no edema. Skin: Warm and dry, no lesions noted. Neuro: Well oriented, CN II-XII grossly intact. Psych: Pleasant and co-operative. H&P: Results Labs Labs: Short CBC 02/11/24 Range/Units 08:18 WBC 11.0 H (4.5-10.0) K/mm3 Hgb 11.9 L (14.0-18.0) g/dL Hct 38.6 L (42.0-52.0) % Plt Count 539 H (150-375) k/mm3 BMP 02/11/24 08:18 Sodium 137 Potassium 4.2 Chloride 99 Carbon Dioxide 39 H BUN 19 Creatinine 0.80 Glucose 131 H Calcium 9.3 Cardiac Enzymes 02/11/24 02/11/24 Range/Units 10:47 13:40 Troponin I 0.024 0.021 (0.000-0.034) ng/mL Liver Function 02/11/24 Range/Units 08:18 Total Bilirubin 0.8 (0.2-1.3) mg/dL AST 19 (17-59) U/L ALT 11 (6-50) U/L Alkaline Phosphatase 183 H (38-126) U/L Albumin 3.9 (3.5-5.1) g/dL Assessment and Plan Assessment and plan (1) Acute hypoxic respiratory failure: Code(s): J96.01 - Acute respiratory failure with hypoxia Status: Acute Assessment and Plan: - Likely related to CHF exacerbation +/vs PNA. - CXR: Opacities in the lower lung zones which could represent either congestive heart failure related mild pulmonary edema or pneumonia. - Blood cultures collected. - Started on empiric IV abx; Ceftriaxone, Azithromycin. - Given a dose of Lasix. - Currently on 5L/HFNC for sats > 90 %. - Wean O2 as forrest for sats > 90 %. (2) Chronic diastolic congestive heart failure, NYHA class 3: Code(s): I50.32 - Chronic diastolic (congestive) heart failure Status: Acute Assessment and Plan: - Possibly in exacerbation. - BNP 519. - EKG: ST with no acute ischemic changes. - Given a dose of lasix in ER. - Schedule IV lasix. - Strict I & O with daily weights. (3) COPD (chronic obstructive pulmonary disease): Code(s): J44.9 - Chronic obstructive pulmonary disease, unspecified Status: Acute Assessment and Plan: - Appears to be in acute exacerbation. - Start IV steroids. - Schedule bronchodilators. - Supplemental O2 for sats > 90 %; now on 5L/HFNC - Wean as forrest for sats > 90 %. (4) A-fib: Code(s): I48.91 - Unspecified atrial fibrillation Status: Acute Assessment and Plan: - Currently in sinus rhythm. - Resume Apixaban. - I'm not seeing any rate control meds on pt list. - Consider rate control medication. (5) Diabetes mellitus: Code(s): E11.9 - Type 2 diabetes mellitus without complications Status: Acute Assessment and Plan: - We'll start SSI and adjust as needed. (6) Seizure: Code(s): R56.9 - Unspecified convulsions Status: Acute Assessment and Plan: - Resume Lacosamide. - Seizure precautions. Quality VTE Prophylaxis VTE prophylaxis: mechanical ordered and pharmacologic ordered Hospitalist MIPS Advance Care Plan I have confirmed that the patient's Advanced Care Plan is present, code status is documented, or surrogate decision maker is listed in patient medical record.: Yes Medication Reconciliation I have utilized all available resources to obtain, update and review the patients current medications (includes all prescriptions, OTC, herbals, cannabis, and nutritional supplements).: Yes
[2024-02-11 17:58] LABS: Troponin I 0.022 ng/mL (0.000-0.034)
[2024-02-11] MEDS: ATORVASTATIN 40 MG TABLET 80 MG PO (23:58)
[2024-02-11] MEDS: APIXABAN 5 MG TABLET PO (23:58)
[2024-02-11] MEDS: LACOSAMIDE (*CRX) 100 MG TABLET PO (23:58)
[2024-02-11] MEDS: levETIRAcetam 500 MG TABLET 1000 MG PO (23:58)
[2024-02-11] MEDS: QUEtiapine FUMARATE 25 MG TABLET 50 MG PO (23:58)
[2024-02-11] MEDS: MELATONIN 5 MG TABLET PO (23:59)
[2024-02-12] VITALS (17 sets, daily range): BP systolic 106–140; BP diastolic 62–75; PULSE 85–102; RESP 16–24; TEMP 36.4–36.8; O2SAT 92–100; BMI 19.5
--- NOTE | 2024-02-12 | ECHO_ITS ---
Patient Info Name: Papito Joseph Age: 78 years : 1945 Gender: Male Ht: 71 in Wt: 148 lbs BSA: 1.83 m2 HR: 92 bpm BP: 124 / 75 mmHg Technical Quality: Fair Exam Date: 02/12/2024 10:07 AM Exam Location: Echo Lab Exam Room: [facility] Patient Status: Inpatient Admit Date: 02/11/2024 Staff Ordering Physician: Shadia Bhatti NP Pinball Machine Repairer: Sandra Lewis RDCS Attending Provider: Dimas Echavarria MD Referring Physician: Davy CRANE; Exam Type: CA echo doppler color flow Study Info Complete two-dimensional, color flow and Doppler transthoracic echocardiogram is performed. Summary 1. Complete two-dimensional, color flow and Doppler transthoracic echocardiogram is performed. 2. There is severe aortic valve stenosis. TAHIRA 0.8-1 by continuity equation, Vmax 376, MG 34 mmhg; DI 0.24. 3. There is mild aortic valve regurgitation. 4. There is moderate aortic valve sclerosis. 5. There is mild-moderate mitral valve stenosis. MVA 1.7 by deceleration time; MVA 1.2-1.4 (VTI), MG 4 mmhg at 99 bpm. 6. The mitral valve has calcified leaflets. 7. There is trace mitral valve regurgitation. 8. There is mild tricuspid valve regurgitation. 9. No pulmonary hypertension, estimated pulmonary arterial systolic pressure is 40 mmHg. 10. Left ventricular chamber dimension is normal. 11. Left ventricular systolic function is normal, estimated at 60-65%. 12. There is mildly increased left ventricular wall thickness. 13. Left ventricular septal wall motion is normal. 14. The left ventricular diastolic function is indeterminate. 15. Right ventricular chamber dimension is normal. 16. Right ventricular systolic function is normal. Left Ventricle Left ventricular chamber dimension is normal. Left ventricular systolic function is normal, estimated at 60-65%. There is mildly increased left ventricular wall thickness. Left ventricular septal wall motion is normal. The left ventricular diastolic function is indeterminate. Right Ventricle Right ventricular chamber dimension is normal. Right ventricular systolic function is normal. Left Atria Left atrial chamber dimension is enlarged. Right Atria Right atrial chamber dimension is normal. Aortic Valve Aortic valve is not well visualized. There is moderate aortic valve sclerosis. There is severe aortic valve stenosis. TAHIRA 0.8-1 by continuity equation, Vmax 376, MG 34 mmhg; DI 0.24. There is mild aortic valve regurgitation. Pulmonic Valve The pulmonic valve is normal. There is no pulmonic regurgitation. Mitral Valve The mitral valve has calcified leaflets. There is mild-moderate mitral valve stenosis. MVA 1.7 by deceleration time; MVA 1.2-1.4 (VTI), MG 4 mmhg at 99 bpm. There is trace mitral valve regurgitation. Tricuspid Valve The tricuspid valve leaflets are normal. There is no significant tricuspid valve stenosis. There is mild tricuspid valve regurgitation. No pulmonary hypertension, estimated pulmonary arterial systolic pressure is 40 mmHg. Pericardium/Pleural The pericardium appears normal. There is no pericardial effusion. Inferior Vena Cava Normal inferior vena cava with >50% collapse upon inspiration consistent with normal right atrial pressure, 3 mmHg. Aorta The aortic root size at the sinus of Valsalva is dilated. The prox ascending aorta size is normal. Left Ventricular Outflow Tract Name Value Normal LVOT 2D LVOT Diameter 2.0 cm LVOT Doppler LVOT Peak Gradient 3 mmHg LVOT Mean Gradient 2 mmHg LVOT VTI 17 cm LVOT VTI/AV VTI Ratio 0.2 LVOT Stroke Volume 51 ml LVOT CO 5.2 l/min LVOT CI 2.8 l/min/m2 Pulmonic Valve Name Value Normal PV Doppler PV Peak Gradient 4 mmHg Mitral Valve Name Value Normal MV Doppler MV Peak Gradient 10 mmHg MV Mean Gradient 3 mmHg MV Decel Grimes 317 cm/s2 MV PHT 129 ms MV Area (PHT) 1.7 cm2 4.0-5.0 MV Area (Cont Eq VTI) 1.1 cm2 MV Diastolic Function MV E Peak Velocity 141 cm/s MV A Peak Velocity 94 cm/s MV E/A 1.5 MV Decel Time 446 ms Tricuspid Valve Name Value Normal TV Regurgitation Doppler TR Peak Velocity 306 cm/s TR Peak Gradient 37 mmHg Estimated PAP/RSVP RA Pressure 3 mmHg <=5 PA Systolic Pressure 40 mmHg <36 RV Systolic Pressure 40 mmHg <36 Aortic Valve Name Value Normal AV Doppler AV Peak Velocity 426 cm/s AV Peak Gradient 34 mmHg AV Mean Gradient 22 mmHg AV VTI 86 cm AV Area (Cont Eq VTI) 0.6 cm2 >=3.0 AV Area (Cont Eq Abrahan) 0.8 cm2 AV Regurgitation 2D LVOT Area 3.0 cm2 Ventricles Name Value Normal LV Dimensions 2D/MM IVS Diastolic Thickness (2D) 1.1 cm 0.6-1.0 LVID Diastole (2D) 4.0 cm 4.2-5.8 LVIW Diastolic Thickness (2D) 0.9 cm 0.6-1.0 LVID Systole (2D) 3.0 cm 2.5-4.0 LVOT Diameter 2.0 cm LV Mass (2D Cubed) 123.62 g 88.00-224.00 LV Mass Index (2D Cubed) 68 g/m2 49-115 Relative Wall Thickness (2D) 0.46 LV Fractional Shortening/Ejection Fraction 2D/MM LV Fractional Shortening (2D) 20 % 25-43 LV EF (2D Teicholz) 41 % 52-72 Atria Name Value Normal RA Dimensions RA Area (4C) 21.9 cm2 <=18.0 Report Signatures Amended by Brittney Taylor on 02/12/2024 18:17
[2024-02-12 04:25] LABS: Basophils Percent Auto 0.1 % (0.2-1.2); Eosinophils Percent Auto 0.1 % (0-4.4); Hematocrit 29.3 % (42.0-52.0); Hemoglobin 9.2 g/dL (14.0-18.0); Immature Granulocyte Absolute 0.06 K/mm3 (0.00-0.031); Immature Granulocyte Percent A 0.4 % (0-0.5); Immature Platelet Fraction Pct 6.7 % (0.9-11.2); Lymphocytes Absolute Auto 1.21 K/mm3 (0.9-3.2); Lymphocytes Percent Auto 8.4 % (18.3-44.2); Mean Corpuscular HGB Conc 31.4 g/dl (32-36); Mean Corpuscular Hemoglobin 29.1 pg (26-34); Mean Corpuscular Volume 92.7 fl (80-100); Mean Platelet Volume 10.9 fl (7.4-10.4); Monocytes Absolute Auto 0.9 K/mm3 (0.1-0.6); Monocytes Percent Auto 6.4 % (2.6-8.5); Neutrophils Absolute Auto 12.1 K/mm3 (1.3-6.7); Neutrophils Percent Auto 84.6 % (45.5-73.1); Platelet Count Result 429 k/mm3 (150-375); Red Blood Count 3.16 M/mm3 (4.6-6.20); Red Cell Distribution Width 15.6 % (11.5-14.5); White Blood Count 14.4 K/mm3 (4.5-10.0)
[2024-02-12 04:32] LABS: Anion Gap -2 mmol/L (4-12); Blood Urea Nitrogen 19 mg/dL (9-20); Calcium 8.5 mg/dL (8.4-10.2); Carbon Dioxide 39 mmol/L (22-30); Chloride 97 mmol/L (98-107); Estimated CRCL calculation 56 ml/min; Estimated Glomerular Filt Rate > 60; Glucose 107 mg/dL (65-110); Potassium 4.3 mmol/L (3.4-5.0); Sodium 134 mmol/L (137-145)
[2024-02-12 04:53] LABS: Procalcitonin 0.1 ng/mL
[2024-02-12] MEDS: levETIRAcetam 500 MG TABLET 1000 MG PO ×2 (09:50→21:39)
[2024-02-12] MEDS: FINASTERIDE 5 MG TABLET PO (09:54)
[2024-02-12] MEDS: ASPIRIN 81 MG CHEWABLE TABLET PO (09:54)
[2024-02-12] MEDS: SENNA/DOCUSATE SODIUM TABLET 1 TAB PO (09:54)
[2024-02-12] MEDS: PANTOPRAZOLE 40 MG TABLET PO (09:55)
[2024-02-12] MEDS: CHOLECALCIFEROL 1,000 UNITS TABLET 1000 UNITS PO (10:31)
[2024-02-12] MEDS: APIXABAN 5 MG TABLET PO ×2 (10:31→21:39)
[2024-02-12] MEDS: LACOSAMIDE (*CRX) 100 MG TABLET PO ×2 (10:32→21:39)
[2024-02-12] MEDS: POTASSIUM CHLORIDE 20 MEQ ER TABLET PO (10:32)
[2024-02-12] MEDS: FUROSEMIDE INJ 40 MG/4 ML VIAL IV PUSH (10:32)
--- NOTE | 2024-02-12 11:21 | P.PNIM_ITS ---
Progress Note: A&P Assessment and Plan (1) Acute hypoxic respiratory failure: Code(s): J96.01 - Acute respiratory failure with hypoxia Status: Acute Assessment and Plan: - Likely related to CHF exacerbation +/vs PNA. - CXR: Opacities in the lower lung zones which could represent either congestive heart failure related mild pulmonary edema or pneumonia. - Blood cultures collected. - Started on empiric IV abx; Ceftriaxone, Azithromycin. - Given a dose of Lasix. - Currently on 5L/HFNC for sats > 90 %. - Wean O2 as forrest for sats > 90 %. (2) Chronic diastolic congestive heart failure, NYHA class 3: Code(s): I50.32 - Chronic diastolic (congestive) heart failure Status: Acute Assessment and Plan: - Possibly in exacerbation. - BNP 519. - EKG: ST with no acute ischemic changes. - Given a dose of lasix in ER. - Schedule IV lasix. - Strict I & O with daily weights. (3) COPD (chronic obstructive pulmonary disease): Code(s): J44.9 - Chronic obstructive pulmonary disease, unspecified Status: Acute Assessment and Plan: - Appears to be in acute exacerbation. - Start IV steroids. - Schedule bronchodilators. - Supplemental O2 for sats > 90 %; now on 5L/HFNC - Wean as forrest for sats > 90 %. (4) A-fib: Code(s): I48.91 - Unspecified atrial fibrillation Status: Acute Assessment and Plan: - Currently in sinus rhythm. - Resume Apixaban. - I'm not seeing any rate control meds on pt list. - Consider rate control medication. (5) Diabetes mellitus: Code(s): E11.9 - Type 2 diabetes mellitus without complications Status: Acute Assessment and Plan: - We'll start SSI and adjust as needed. (6) Seizure: Code(s): R56.9 - Unspecified convulsions Status: Acute Assessment and Plan: - Resume Lacosamide. - Seizure precautions. Subjective Date/time seen: 02/12/24 11:21 Interval history: Per medical records, patient was admitted to [facility] on 02/08 from [facility] s/p cardiac arrest, AMS with possible CVA, NSTEMI, sepsis. Per staff at [facility], patient became acutely dyspneic today and was noted to be hypoxic down into the 70s. He does wear 2 L nasal cannula at night, and does not typically require oxygen supplementation throughout the day. Ordered CTA to r/o PE which shows no PE. Patient failed barium swallow.Discussed with the patient and his son both understands risk of aspiration. So we will continue his regular diet.Discussed about the code status and will continue full code. Review of Systems Review of Systems: All systems reviewed & are unremarkable except as noted in HPI and below Exam Narrative: General: Chronically ill appearing, respiratory distress with minimal exertion. HEENT: Atraumatic, PERRL, moist mucosa, EOM, anicteric. NECK: Supple. Lungs: Generally coarse and congested, expiratory wheezes, labored with minimal exertion. Heart: RRR, Grade II R. Sternal border murmur. Abdomen: Soft, non-tender, non-distended, +ve sounds X4 quadrants. Extremities: Acyanotic, no edema. Skin: Warm and dry, no lesions noted. Neuro: Well oriented, CN II-XII grossly intact. Psych: Pleasant and co-operative. Objective Data Vital Signs Vital Signs: Vital Signs - 24 hr 02/11/24 11:30 02/11/24 11:36 02/11/24 11:59 Temperature Pulse Rate 109 H Respiratory Rate 22 H Blood Pressure 119/70 Pulse Oximetry 100 100 100 Oxygen Delivery High Flow Therapy with Na High Flow Therapy with Na Oxygen Flow Rate 9 6 02/11/24 12:00 02/11/24 12:30 02/11/24 13:00 Temperature Pulse Rate 106 H 107 H 108 H Respiratory Rate 20 18 18 Blood Pressure 118/71 119/75 116/71 Pulse Oximetry 100 100 Oxygen Delivery Oxygen Flow Rate 02/11/24 13:30 02/11/24 14:00 02/11/24 14:30 Temperature Pulse Rate 112 H 106 H 105 H Respiratory Rate 23 H 18 17 Blood Pressure 119/79 119/67 111/71 Pulse Oximetry 100 100 98 Oxygen Delivery Oxygen Flow Rate 02/11/24 15:38 02/11/24 18:00 02/11/24 20:00 Temperature 98.2 F Pulse Rate 90 105 H 93 Respiratory Rate 16 Blood Pressure 132/69 Pulse Oximetry 97 Oxygen Delivery Oxygen Flow Rate 02/11/24 21:32 02/11/24 22:00 02/11/24 22:40 Temperature 97.2 F L Pulse Rate 85 93 85 Respiratory Rate 20 20 Blood Pressure 134/72 Pulse Oximetry 99 99 Oxygen Delivery High Flow Therapy with Na Oxygen Flow Rate 5 02/11/24 23:55 02/11/24 23:56 02/12/24 00:00 Temperature 97.6 F Pulse Rate 92 92 94 Respiratory Rate 18 18 Blood Pressure 134/70 Pulse Oximetry 99 99 Oxygen Delivery Nasal Cannula Oxygen Flow Rate 4 02/12/24 02:00 02/12/24 04:00 02/12/24 04:00 Temperature Pulse Rate 89 90 90 Respiratory Rate 20 Blood Pressure Pulse Oximetry 99 Oxygen Delivery Nasal Cannula Oxygen Flow Rate 3 02/12/24 04:30 02/12/24 05:55 02/12/24 06:00 Temperature 98.2 F Pulse Rate 94 90 91 Respiratory Rate 20 20 Blood Pressure 140/70 Pulse Oximetry 98 99 Oxygen Delivery Nasal Cannula Oxygen Flow Rate 2 02/12/24 07:52 Temperature 97.5 F L Pulse Rate 92 Respiratory Rate 22 H Blood Pressure 124/75 Pulse Oximetry 94 Oxygen Delivery Oxygen Flow Rate Intake/Output Intake/Output: Intake & Output 02/09/24 02/10/24 02/11/24 02/12/24 23:59 23:59 23:59 23:59 Intake Total 540 220 Output Total 2500 900 Balance -1960 -680 Meds/Results Medications: Active Medications Generic Name Dose Route Start Last Admin Trade Name Freq PRN Reason Stop Dose Admin Acetaminophen 650 mg 02/11/24 13:02 Acetaminophen 325 Mg Tablet PO Q4H PRN Mild Pain (1-3) or Fever Albuterol 2.5 mg 02/11/24 23:08 Albuterol Sulfate Neb 2.5 Mg/3 Ml Inh INHALATION Q6H PRN shortness of breath Albuterol 1 puff 02/11/24 23:08 Albuterol Sulfate (*Sp) Aerosol 1 Puff INHALATION QID PRN wheezing Apixaban 5 mg 02/11/24 23:20 02/12/24 10:31 Apixaban 5 Mg Tablet PO 5 mg Q12HR PATTIE Administration Aspirin 81 mg 02/12/24 09:00 02/12/24 09:54 Aspirin 81 Mg Chewable Tablet PO 81 mg DAILY PATTIE Administration Atorvastatin Calcium 80 mg 02/11/24 23:20 02/11/24 23:58 Atorvastatin 40 Mg Tablet PO 80 mg HS PATTIE Administration Ferrous Sulfate 325 mg 02/13/24 08:00 Ferrous Sulfate [address] PO 03/14/24 07:59 [id number] PATTIE Finasteride 5 mg 02/12/24 09:00 02/12/24 09:54 Finasteride 5 Mg Tablet PO 5 mg DAILY PATTIE Administration Furosemide 40 mg 02/12/24 09:00 02/12/24 10:32 Furosemide Inj 40 Mg/4 Ml Vial IV PUSH 40 mg DAILY PATTIE Administration Ceftriaxone Sodium 1 gm in 50 mls @ 100 mls/hr 02/12/24 09:00 Rocephin 1 Gm/Ns 50 Ml IVPB Q24H PATTIE Azithromycin 500 mg in 250 mls @ 250 mls/hr 02/12/24 09:00 Zithromax IVPB Q24H PATTIE Lacosamide 100 mg 02/11/24 23:10 02/12/24 10:32 Lacosamide (*Crx) 100 Mg Tablet PO 100 mg Q12HR PATTIE Administration Levetiracetam 1,000 mg 02/11/24 23:20 02/12/24 09:50 Levetiracetam 500 Mg Tablet PO 1,000 mg Q12HR PATTIE Administration Melatonin 5 mg 02/11/24 23:08 02/11/24 23:59 Melatonin 5 Mg Tablet PO 5 mg HS PRN Administration sleep Miscellaneous Information 1 each 02/12/24 00:01 Clarify Dulera And Stiolto--Duplicate Long Acting Bronchodilators XX 03/13/24 00:00 [facility] Miscellaneous Information 1 each 02/12/24 00:01 Clarify Prednisone--Where Is Pt At On Dosing Taper? XX 03/13/24 00:00 [facility] Miscellaneous Information 1 each 02/12/24 00:01 Lidocaine 4% Patch Nonform; Ok To Change To 5% Patch? XX 03/13/24 00:00 [facility] Non-Formulary Medication 1 patch 02/11/24 23:15 Lidocaine [Aspercreme (Lidocaine)] TOPICAL 03/12/24 23:14 Q24H [facility] Non-Formulary Medication 2 inhalation 02/11/24 23:15 Mometasone-Formoterol [Dulera] INHALATION 03/12/24 23:14 Q12H [facility] Non-Formulary Medication 2 inhalation 02/12/24 09:00 Tiotropium-Olodaterol [Stiolto Respimat] INHALATION 03/13/24 08:59 DAILY PATTIE Pantoprazole Sodium 40 mg 02/12/24 09:00 02/12/24 09:55 Pantoprazole 40 Mg Tablet PO 40 mg QAM PATTIE Administration Perflutren Lipid Microsphere 0 ml 02/11/24 15:32 Perflutren Lipid Microspheres 1.5 Ml Vial Diluted To 10 Ml Total Volume IV PUSH 02/14/24 15:32 ONCE PRN adequate visualization Protocol Polyethylene Glycol 17 gm 02/12/24 09:00 Polyethylene Glycol 3350 17 Gm Powd.Pack PO DAILY PTATIE Potassium Chloride 20 meq 02/12/24 09:00 02/12/24 10:32 Potassium Chloride 20 Meq Er Tablet PO 20 meq DAILY PATTIE Administration Prednisone 5 mg 02/11/24 23:10 Prednisone 5 Mg Tablet PO DIRECTED PATTIE Quetiapine Fumarate 50 mg 02/11/24 23:25 02/11/24 23:58 Quetiapine Fumarate 25 Mg Tablet PO 50 mg HS PATTIE Administration Senna/Docusate Sodium 1 tab 02/12/24 09:00 02/12/24 09:54 Senna/Docusate Sodium Tablet PO 1 tab BID PATTIE Administration Tramadol HCl 50 mg 02/11/24 23:08 Tramadol Hcl (*Crx) 50 Mg Tablet PO BID PRN PAIN RATED 4-10 Vitamin D 1,000 units 02/12/24 09:00 02/12/24 10:31 Cholecalciferol 1,000 Units Tablet PO 1,000 units DAILY PATTIE Administration Radiology Results: ITS Impressions Chest X-Ray 02/11/24 09:05 IMPRESSION: 1. Opacities in the lower lung zones which could represent either congestive heart failure related mild pulmonary edema or pneumonia. 2. Small bilateral pleural effusions. Labs Labs: Laboratory Results - last 24 hr 02/11/24 02/11/24 02/11/24 09:44 13:40 17:26 WBC RBC Hgb Hct MCV MCH MCHC RDW Plt Count MPV Immature Gran % (Auto) Neut % (Auto) Lymph % (Auto) Miner % (Auto) Eos % (Auto) Baso % (Auto) Lymph # (Auto) Miner # (Auto) Eos # (Auto) Baso # (Auto) Abs Immat Gran (auto) Absolute Neuts (auto) Absolute Nucleated RBC Nucleated RBC % % Immature Plt Fraction Sodium Potassium Chloride Carbon Dioxide Anion Gap BUN Creatinine Estim Creat Clear Calc Estimated GFR Glucose Calcium Troponin I 0.021 0.022 Procalcitonin Influenza A (RT-PCR) Negative Influenza B (RT-PCR) Negative RSV (RT-PCR) Negative SARS-CoV-2 RNA (RT-PCR) Negative 02/12/24 03:51 WBC 14.4 H RBC 3.16 L Hgb 9.2 L Hct 29.3 L MCV 92.7 MCH 29.1 MCHC 31.4 L RDW 15.6 H Plt Count 429 H MPV 10.9 H Immature Gran % (Auto) 0.4 Neut % (Auto) 84.6 H Lymph % (Auto) 8.4 L Miner % (Auto) 6.4 Eos % (Auto) 0.1 Baso % (Auto) 0.1 L Lymph # (Auto) 1.21 Miner # (Auto) 0.9 H Eos # (Auto) 0.0 Baso # (Auto) 0.0 Abs Immat Gran (auto) 0.06 H Absolute Neuts (auto) 12.1 H Absolute Nucleated RBC 0.000 Nucleated RBC % 0.0 % Immature Plt Fraction 6.7 Sodium 134 L Potassium 4.3 Chloride 97 L Carbon Dioxide 39 H Anion Gap -2 L BUN 19 Creatinine 0.90 Estim Creat Clear Calc 56 Estimated GFR > 60 Glucose 107 Calcium 8.5 Troponin I Procalcitonin 0.1 Influenza A (RT-PCR) Influenza B (RT-PCR) RSV (RT-PCR) SARS-CoV-2 RNA (RT-PCR) Quality VTE Prophylaxis VTE prophylaxis: mechanical ordered and pharmacologic ordered Hospitalist MIPS Advance Care Plan I have confirmed that the patient's Advanced Care Plan is present, code status is documented, or surrogate decision maker is listed in patient medical record.: Yes Medication Reconciliation I have utilized all available resources to obtain, update and review the patients current medications (includes all prescriptions, OTC, herbals, cannabis, and nutritional supplements).: Yes
[2024-02-12 12:25] LABS: Glucose Point of Care 135 mg/dl (65-105)
--- NOTE | 2024-02-12 14:14 | PCSTNOTE ---
Please refer to the Bedside Swallow Evaluation in the EMR. Please note, silent aspiration cannot be ruled out at bedside. The above pleasant and cooperative pt was seen for a swallow evaluation at bedside. The pt was positioned upright in the bed and able to follow simple commands. He is currently on a regular diet and when asked re swallowing difficulty, he stated, it hangs up and reports difficulty x 3 weeks; Oral mucosa is normal; pt was wearing full upper and lower dentures. Brief peripheral exam revealed lingual and labial structures to be within functional limits. He was able to dry swallow on command and exhibited a strong productive coughing before oral trials. Vocal quality was clear. He was tested with thin liquids and pudding in controlled amounts via a spoon. The oral stages appeared WNL. No oral residue, leakage, or pocketing was noted. During the pharyngeal stage, swallow reflex appeared prompt but laryngeal elevation was questionably adequate; subtle/weak cough occurred after the thin liquids trials and overt s/s of aspiration/coughing were exhibited after the pudding trial; after the coughing occurred after the pudding trial it was decided to terminate the bedside testing and defer to a modified barium swallow (MBS). Impression: questionable degree of dysphagia which should be further assessed via MBS. Recommendation: NPO until MBS; MBS to further assess swallow function, determine a safe diet and an appropriate plan of care. Thank you for this referral.
--- NOTE | 2024-02-12 14:53 | PCSTNOTE ---
Please refer to the Modified Barium Swallow Evaluation in the EMR. The patient was seen for a modified barium swallow due to the bedside swallow evaluation revealing overt s/s of aspiration. Pt also has a current diagnosis of pneumonia. The pt was seated for a lateral view and presented with 4-5cc of thin liquid barium via spoon, pudding consistency barium via a spoon, and 4-5 cc of moderately thick liquids. The oral stages were within functional limits; during the pharyngeal stage the following was noted: reduced tongue base retraction which resulted in varying degrees of vallecular residue amongst trials, poor anterior movement of the pharyngeal wall as evidenced by pharyngeal wall coating (mild); reduced laryngeal elevation as evidenced by laryngeal penetration during the swallow and pyriform sinus residue which also varied amongst trial, and poor airway protection with lack of sensation resulting in silent aspiration after the swallow. All trials given resulted in aspiration. Chin tuck modification did not alter or improve outcomes. Impression: severe dysphagia Recommendation: ST for dysphagia but it is questionable if improvement could be achieved prior to discharge.
[2024-02-12 16:33] LABS: Glucose Point of Care 137 mg/dl (65-105)
[2024-02-12 20:10] LABS: Glucose Point of Care 112 mg/dl (65-105)
--- NOTE | 2024-02-12 20:20 | PC.NURSE ---
Detailed discussion with son, Marvin, pertaining to Aspiration Pneumonia, as well as the results from Barium Swallow evaluation. Son stated I did not understanding everting the said about my Dad eating . Rn advised son to come to bedside to discuss plan of care with Hospitalist, he said he will be able to tomorrow after work. Dr. NELSON updated on discussion. FILIBERTO Hurley updated on plan of care for the shift.
[2024-02-12] MEDS: SODIUM CHLORIDE 0.9% IV 1,000 ML 65 ML IV CONT (21:32)
[2024-02-12] MEDS: QUEtiapine FUMARATE 25 MG TABLET 50 MG PO (21:39)
[2024-02-12] MEDS: ATORVASTATIN 40 MG TABLET 80 MG PO (21:39)
[2024-02-12] MEDS: traMADol HCL (*CRX) 50 MG TABLET PO (23:23)
[2024-02-13] VITALS (19 sets, daily range): BP systolic 121–146; BP diastolic 61–76; PULSE 83–117; RESP 15–24; TEMP 36.3–36.9; O2SAT 91–99
[2024-02-13 05:36] LABS: Basophils Percent Auto 0.5 % (0.2-1.2); Eosinophils Absolute Auto 0.1 K/mm3 (0-0.3); Eosinophils Percent Auto 0.8 % (0-4.4); Hemoglobin 9.8 g/dL (14.0-18.0); Immature Granulocyte Absolute 0.02 K/mm3 (0.00-0.031); Immature Granulocyte Percent A 0.3 % (0-0.5); Lymphocytes Absolute Auto 1.38 K/mm3 (0.9-3.2); Lymphocytes Percent Auto 17.3 % (18.3-44.2); Mean Corpuscular HGB Conc 30.6 g/dl (32-36); Mean Corpuscular Hemoglobin 28.6 pg (26-34); Mean Corpuscular Volume 93.3 fl (80-100); Mean Platelet Volume 11.2 fl (7.4-10.4); Monocytes Absolute Auto 0.8 K/mm3 (0.1-0.6); Monocytes Percent Auto 9.6 % (2.6-8.5); Neutrophils Absolute Auto 5.7 K/mm3 (1.3-6.7); Neutrophils Percent Auto 71.5 % (45.5-73.1); Platelet Count Result 368 k/mm3 (150-375); Red Blood Count 3.43 M/mm3 (4.6-6.20); Red Cell Distribution Width 15.9 % (11.5-14.5)
[2024-02-13 05:49] LABS: Alanine Aminotransferase 8 U/L (6-50); Albumin Level 3.1 g/dL (3.5-5.1); Alkaline Phosphatase 150 U/L (38-126); Anion Gap -2 mmol/L (4-12); Aspartate Amino Transferase 15 U/L (17-59); Bilirubin,Total 0.6 mg/dL (0.2-1.3); Blood Urea Nitrogen 21 mg/dL (9-20); Calcium 8.7 mg/dL (8.4-10.2); Carbon Dioxide 39 mmol/L (22-30); Chloride 100 mmol/L (98-107); Estimated CRCL calculation 55 ml/min; Estimated Glomerular Filt Rate > 60; Glucose 87 mg/dL (65-110); Potassium 3.9 mmol/L (3.4-5.0); Sodium 137 mmol/L (137-145)
--- NOTE | 2024-02-13 07:48 | P.PNIM_ITS ---
Progress Note: A&P Assessment and Plan (1) Acute hypoxic respiratory failure: Code(s): J96.01 - Acute respiratory failure with hypoxia Status: Acute Assessment and Plan: - Likely related to CHF exacerbation +/vs PNA. - CXR: Opacities in the lower lung zones which could represent either congestive heart failure related mild pulmonary edema or pneumonia. - Blood cultures collected. - Started on empiric IV abx; Ceftriaxone, Azithromycin. - Given a dose of Lasix. - Currently on 5L/HFNC for sats > 90 %. - Wean O2 as forrest for sats > 90 %. (2) Chronic diastolic congestive heart failure, NYHA class 3: Code(s): I50.32 - Chronic diastolic (congestive) heart failure Status: Acute Assessment and Plan: - Possibly in exacerbation. - BNP 519. - EKG: ST with no acute ischemic changes. - Given a dose of lasix in ER. - Schedule IV lasix. - Strict I & O with daily weights. (3) COPD (chronic obstructive pulmonary disease): Code(s): J44.9 - Chronic obstructive pulmonary disease, unspecified Status: Acute Assessment and Plan: - Appears to be in acute exacerbation. - Start IV steroids. - Schedule bronchodilators. - Supplemental O2 for sats > 90 %; now on 5L/HFNC - Wean as forrest for sats > 90 %. (4) A-fib: Code(s): I48.91 - Unspecified atrial fibrillation Status: Acute Assessment and Plan: - Currently in sinus rhythm. - Resume Apixaban. - I'm not seeing any rate control meds on pt list. - Consider rate control medication. (5) Diabetes mellitus: Code(s): E11.9 - Type 2 diabetes mellitus without complications Status: Acute Assessment and Plan: - We'll start SSI and adjust as needed. (6) Seizure: Code(s): R56.9 - Unspecified convulsions Status: Acute Assessment and Plan: - Resume Lacosamide. - Seizure precautions. Subjective Date/time seen: 02/13/24 07:48 Interval history: 02/12: Night team nurse called yesterday and reported he spoke with the son and explained again the risk of aspiration. Today I will speak to his son and explain again the risk of aspiration. Although considering G-Tube is not going to completely prevent the aspiration risk. Also his son reported he took the patient to [facility] because he was not responding while watching TV. In [facility] ED he coded and was intubated. He reports he never was given explanation whether its Mi vs seizure or any other condition.Later he was discharged to [facility] and transferred to [facility].Off note patient came with nash and nursing team was not able to re- insert the nash and Urology is consulted. Around 6:00 p.m. his son came to visit the patient. Discussed with his son and the patient. Patient agrees to comfort care but not to hospice. Agrees to change the code status to DNR. Patient understands the risk of aspiration. 02/11:Per medical records, patient was admitted to [facility] on 02/08 from [facility] s/p cardiac arrest, AMS with possible CVA, NSTEMI, sepsis. Per staff at [facility], patient became acutely dyspneic today and was noted to be hypoxic down into the 70s. He does wear 2 L nasal cannula at night, and does not typically require oxygen supplementation throughout the day. Ordered CTA to r/o PE which shows no PE. Patient failed barium swallow.Discussed with the patient and his son both understands risk of aspiration. So we will continue his regular diet.Discussed about the code status and will continue full code. Review of Systems Review of Systems: All systems reviewed & are unremarkable except as noted in HPI and below Exam Narrative: General: Chronically ill appearing, respiratory distress with minimal exertion. HEENT: Atraumatic, PERRL, moist mucosa, EOM, anicteric. NECK: Supple. Lungs: Generally coarse and congested, expiratory wheezes, labored with minimal exertion. Heart: RRR, Grade II R. Sternal border murmur. Abdomen: Soft, non-tender, non-distended, +ve sounds X4 quadrants. Extremities: Acyanotic, no edema. Skin: Warm and dry, no lesions noted. Neuro: Well oriented, CN II-XII grossly intact. Psych: Pleasant and co-operative. Objective Data Vital Signs Vital Signs: Vital Signs - 24 hr 02/12/24 07:52 02/12/24 08:00 02/12/24 08:00 Temperature 97.5 F L Pulse Rate 92 102 H Respiratory Rate 22 H Blood Pressure 124/75 Pulse Oximetry 94 96 Oxygen Delivery Nasal Cannula Oxygen Flow Rate 2 02/12/24 10:00 02/12/24 11:39 02/12/24 12:00 Temperature 97.5 F L Pulse Rate 102 H 102 H Respiratory Rate 24 H Blood Pressure 106/70 Pulse Oximetry 100 94 Oxygen Delivery Nasal Cannula Oxygen Flow Rate 2 02/12/24 12:00 02/12/24 14:00 02/12/24 16:00 Temperature 97.9 F Pulse Rate 87 92 87 Respiratory Rate 18 Blood Pressure 118/62 Pulse Oximetry 100 Oxygen Delivery Oxygen Flow Rate 02/12/24 16:00 02/12/24 16:00 02/12/24 18:00 Temperature Pulse Rate 87 89 Respiratory Rate Blood Pressure Pulse Oximetry 94 Oxygen Delivery Nasal Cannula Oxygen Flow Rate 2 02/12/24 20:00 02/12/24 20:00 02/12/24 20:00 Temperature 98.1 F Pulse Rate 87 86 85 Respiratory Rate 16 16 Blood Pressure 126/69 Pulse Oximetry 95 95 Oxygen Delivery Nasal Cannula Oxygen Flow Rate 2 02/12/24 22:00 02/12/24 23:34 02/13/24 00:00 Temperature 97.7 F Pulse Rate 85 96 89 Respiratory Rate 20 Blood Pressure 117/70 Pulse Oximetry 92 Oxygen Delivery Oxygen Flow Rate 02/13/24 00:00 02/13/24 02:00 02/13/24 03:45 Temperature 98.5 F Pulse Rate 89 84 87 Respiratory Rate 15 20 Blood Pressure 122/61 Pulse Oximetry 95 95 Oxygen Delivery Nasal Cannula Oxygen Flow Rate 2 02/13/24 04:00 02/13/24 04:00 02/13/24 06:00 Temperature Pulse Rate 83 83 83 Respiratory Rate 15 Blood Pressure Pulse Oximetry 95 Oxygen Delivery Nasal Cannula Oxygen Flow Rate 2 02/13/24 07:14 Temperature 97.4 F L Pulse Rate 97 Respiratory Rate 24 H Blood Pressure 146/76 H Pulse Oximetry 91 Oxygen Delivery Oxygen Flow Rate Intake/Output Intake/Output: Intake & Output 02/10/24 02/11/24 02/12/24 02/13/24 23:59 23:59 23:59 23:59 Intake Total 540 940 Output Total 2500 1650 300 Balance -1960 -710 -300 Meds/Results Medications: Active Medications Generic Name Dose Route Start Last Admin Trade Name Freq PRN Reason Stop Dose Admin Acetaminophen 650 mg 02/11/24 13:02 Acetaminophen 325 Mg Tablet PO Q4H PRN Mild Pain (1-3) or Fever Albuterol 2.5 mg 02/11/24 23:08 Albuterol Sulfate Neb 2.5 Mg/3 Ml Inh INHALATION Q6H PRN shortness of breath Albuterol 1 puff 02/11/24 23:08 Albuterol Sulfate (*Sp) Aerosol 1 Puff INHALATION QID PRN wheezing Apixaban 5 mg 02/11/24 23:20 02/12/24 21:39 Apixaban 5 Mg Tablet PO 5 mg Q12HR PATTIE Administration Aspirin 81 mg 02/12/24 09:00 02/12/24 09:54 Aspirin 81 Mg Chewable Tablet PO 81 mg DAILY PATTIE Administration Atorvastatin Calcium 80 mg 02/11/24 23:20 02/12/24 21:39 Atorvastatin 40 Mg Tablet PO 80 mg HS PATTIE Administration Azithromycin 500 mg 02/13/24 09:00 Azithromycin 250 Mg Tablet PO 02/15/24 09:01 DAILY PATTIE Ferrous Sulfate 325 mg 02/13/24 08:00 Ferrous Sulfate [address] PO 03/14/24 07:59 [id number] PATTIE Finasteride 5 mg 02/12/24 09:00 02/12/24 09:54 Finasteride 5 Mg Tablet PO 5 mg DAILY PATTIE Administration Fluticasone/Umeclidinium/Vilanterol 1 puff 02/12/24 14:00 Fluticasone/Umeclidin/Vilanter 200-62.5-25 Mcg Ellipta INHALATION DAILYRT PATTIE Furosemide 40 mg 02/12/24 09:00 02/12/24 10:32 Furosemide Inj 40 Mg/4 Ml Vial IV PUSH 40 mg DAILY PATTIE Administration Ceftriaxone Sodium 1 gm in 50 mls @ 100 mls/hr 02/12/24 09:00 02/12/24 16:01 Rocephin 1 Gm/Ns 50 Ml IVPB 100 mls/hr Q24H PATTIE Administration Sodium Chloride 1,000 mls @ 65 mls/hr 02/12/24 20:45 02/12/24 21:32 Normal Saline Iv IV CONT 65 mls/hr .[id number] PATTIE Administration Lacosamide 100 mg 02/11/24 23:10 02/12/24 21:39 Lacosamide (*Crx) 100 Mg Tablet PO 100 mg Q12HR PATTIE Administration Levetiracetam 1,000 mg 02/11/24 23:20 02/12/24 21:39 Levetiracetam 500 Mg Tablet PO 1,000 mg Q12HR PATTIE Administration Lidocaine 1 patch 02/12/24 14:13 02/12/24 20:06 Lidocaine 5% Patch TRANSDERM Not Given DAILY PATTIE Melatonin 5 mg 02/11/24 23:08 02/11/24 23:59 Melatonin 5 Mg Tablet PO 5 mg HS PRN Administration sleep Pantoprazole Sodium 40 mg 02/12/24 09:00 02/12/24 09:55 Pantoprazole 40 Mg Tablet PO 40 mg QAM PATTIE Administration Perflutren Lipid Microsphere 0 ml 02/11/24 15:32 Perflutren Lipid Microspheres 1.5 Ml Vial Diluted To 10 Ml Total Volume IV PUSH 02/14/24 15:32 ONCE PRN adequate visualization Protocol Polyethylene Glycol 17 gm 02/12/24 09:00 02/12/24 16:01 Polyethylene Glycol 3350 17 Gm Powd.Pack PO Not Given DAILY PATTIE Potassium Chloride 20 meq 02/12/24 09:00 02/12/24 10:32 Potassium Chloride 20 Meq Er Tablet PO 20 meq DAILY PATTIE Administration Prednisone 2.5 mg 02/13/24 09:00 Prednisone 2.5 Mg Tablet PO 02/15/24 09:01 DAILY PATTIE Quetiapine Fumarate 50 mg 02/11/24 23:25 02/12/24 21:39 Quetiapine Fumarate 25 Mg Tablet PO 50 mg HS PATTIE Administration Senna/Docusate Sodium 1 tab 02/12/24 09:00 02/12/24 20:06 Senna/Docusate Sodium Tablet PO Not Given BID PATTIE Tramadol HCl 50 mg 02/11/24 23:08 02/12/24 23:23 Tramadol Hcl (*Crx) 50 Mg Tablet PO 50 mg BID PRN Administration PAIN RATED 4-10 Vitamin D 1,000 units 02/12/24 09:00 02/12/24 10:31 Cholecalciferol 1,000 Units Tablet PO 1,000 units DAILY PATTIE Administration Radiology Results: ITS Impressions Chest X-Ray 02/11/24 09:05 IMPRESSION: 1. Opacities in the lower lung zones which could represent either congestive heart failure related mild pulmonary edema or pneumonia. 2. Small bilateral pleural effusions. Chest CTA 02/12/24 13:02 IMPRESSION: No pulmonary embolus. No aortic dilatation. Bilateral pleural effusions with adjacent compressive atelectasis. Motion artifact precludes adequate evaluation for the presence or absence of pulmonary nodules. Panlobular emphysematous disease. Air-fluid level within the esophagus. Modified Barium Swallow 02/12/24 14:03 IMPRESSION: 1. Aspiration of all consistencies. 2. Please refer to the speech therapy report for recommendations. Labs Labs: Laboratory Results - last 24 hr 02/12/24 02/12/24 02/12/24 11:46 16:29 19:36 WBC RBC Hgb Hct MCV MCH MCHC RDW Plt Count MPV Immature Gran % (Auto) Neut % (Auto) Lymph % (Auto) [place] % (Auto) Eos % (Auto) Baso % (Auto) Lymph # (Auto) [place] # (Auto) Eos # (Auto) Baso # (Auto) Abs Immat Gran (auto) Absolute Neuts (auto) Absolute Nucleated RBC Nucleated RBC % Sodium Potassium Chloride Carbon Dioxide Anion Gap BUN Creatinine Estim Creat Clear Calc Estimated GFR Glucose POC Capillary Glucose 135 H 137 H 112 H Calcium Total Bilirubin AST ALT Alkaline Phosphatase Total Protein Albumin 02/13/24 04:56 WBC 8.0 RBC 3.43 L Hgb 9.8 L Hct 32.0 L MCV 93.3 MCH 28.6 MCHC 30.6 L RDW 15.9 H Plt Count 368 MPV 11.2 H Immature Gran % (Auto) 0.3 Neut % (Auto) 71.5 Lymph % (Auto) 17.3 L [place] % (Auto) 9.6 H Eos % (Auto) 0.8 Baso % (Auto) 0.5 Lymph # (Auto) 1.38 [place] # (Auto) 0.8 H Eos # (Auto) 0.1 Baso # (Auto) 0.0 Abs Immat Gran (auto) 0.02 Absolute Neuts (auto) 5.7 Absolute Nucleated RBC 0.000 Nucleated RBC % 0.0 Sodium 137 Potassium 3.9 Chloride 100 Carbon Dioxide 39 H Anion Gap -2 L BUN 21 H Creatinine 0.90 Estim Creat Clear Calc 55 Estimated GFR > 60 Glucose 87 POC Capillary Glucose Calcium 8.7 Total Bilirubin 0.6 AST 15 L ALT 8 Alkaline Phosphatase 150 H Total Protein 6.0 L Albumin 3.1 L Quality VTE Prophylaxis VTE prophylaxis: mechanical ordered and pharmacologic ordered Hospitalist MIPS Advance Care Plan I have confirmed that the patient's Advanced Care Plan is present, code status is documented, or surrogate decision maker is listed in patient medical record.: Yes Medication Reconciliation I have utilized all available resources to obtain, update and review the patients current medications (includes all prescriptions, OTC, herbals, cannabis, and nutritional supplements).: Yes
[2024-02-13] MEDS: FLUTICASONE/UMECLIDIN/VILANTER 200-62.5-25 MCG ELLIPTA 1 PUFF INHALATION (08:01)
[2024-02-13 08:14] LABS: Glucose Point of Care 106 mg/dl (65-105)
--- NOTE | 2024-02-13 09:32 | WPDURCON ---
Assessment and Plan Assessment and plan (1) Chronic indwelling Blankenship catheter: Code(s): Z97.8 - Presence of other specified devices Status: Acute Assessment and Plan: Last changed at [facility] 01/30/24 (2) Neurogenic bladder: Code(s): N31.9 - Neuromuscular dysfunction of bladder, unspecified Status: Acute Assessment and Plan: Managed with chronic indwelling Blankenship >5yrs in [place] Monthly catheter exchanges at [facility] (3) BPH (benign prostatic hyperplasia): Code(s): N40.0 - Benign prostatic hyperplasia without lower urinary tract symptoms Status: Acute Assessment and Plan: Denies bothersome LUTS Continue daily finasteride 5mg Plan - Continue monthly Blankenship catheter exchanges. Next due around 03/01/2024. - Recommend daily Blankenship hygiene. Keep catheter secured and off tension. - No need to exchange at this time as catheter is patent and draining. Renal function stable. - Recently treated for a complicated CAUTI 2 weeks ago. Low suspicion for acute UTI. - No plan for inpatient urologic surgical intervention. Signing off. Please call with questions. Urology Consult Note HPI Date Seen: 02/13/24 Requesting Physician: Catrachito Echavarria MD Primary Care Provider: UNKNOWN,DOCTOR Consult Narrative Reason for consult: Chronic Blankenship Evaluation Narrative: Papito Joseph is a pleasant 78 year old male with a complicated medical history significant for CHF, COPD, seizure disorder, afib, lifelong smoker who was admitted 02/11/24 from rehab for evaluation of acute on chronic hypoxic/hypercarbic respiratory failure likely 2/2 combined CHF/COPD exacerbation, ?aspiration PNA. Had a prolonged hospitalization at [facility] last month following a seizure requiring resuscitation/intubation. There are ongoing goals of care discussions after failed modified barium swallow yesterday. Urology consulted for management of chronic indwelling Blankenship catheter. He recently moved to the region from [place]. I have no urology records to review. Patient is alert and oriented and a good medical resident. He reports having a neurogenic bladder managed with indwelling Blankenship for at least 5 years. BPH on daily finasteride. Newly established with [facility] for monthly catheter exchanges. Last catheter change was at [facility] 01/30/24 and treated for Serratia marcescens/Enterococcus UTI with IV cefepime. On exam this morning, patient denies issue with his catheter. Denies bladder spasms, dysuria, abdominal pain, hematuria. Draining clear yellow urine, Blankenship secured off tension. He does have moderate-severe hypospadias, likely 2/2 prolonged catheter use. He is not bothered by this. Review of Systems Constitutional: Constitutional: Reports fatigue and Reports weakness Eyes: Eyes: Reports no additional eye complaints ENT: Reports Normal hearing present and Reports dysphagia Respiratory: Respiratory: Reports chest congestion, Reports cough and Reports dyspnea on exertion Gastrointestinal: Gastrointestinal: Denies abdominal pain Genitourinary: Genitourinary: Reports as per HPI Musculoskeletal: Musculoskeletal: Reports stiffness Neurologic: Denies Abnormal speech present and Denies confusion Psychiatric: Psychiatric: Denies confusion [facility] Family History Family History (Updated 02/11/24 @ 18:51 by Joanne Jameson RN) Mother COPD (chronic obstructive pulmonary disease) Diabetes mellitus Father Colon cancer Social History Social History Smoking packs per day: 0.5 Smoking cigarettes per day: 10.0 Smoking status: Current every day smoker Second hand tobacco smoke exposure: Yes Alcohol intake: never Substance use: never Substance use type: does not use Do You Feel Safe in your Home?: Yes Lack of Transportation: No Lack of Food: Never True Current Housing: I Have Housing Concerned About Future Housing: No Difficulty Paying Gas/Electric Bills: No Difficulty Paying for Meds: No Currently Unemployed: No Education: High School Diploma/GED Difficulty w/ Childcare or Family Care: No Spiritual care concerns: No Meds Home Medications and Allergies Home Medications ?Medication ?Instructions ?Recorded ?Confirmed ?Type apixaban 5 mg tablet 5 mg PO BID 02/09/24 02/11/24 History aspirin 81 mg capsule 81 mg PO DAILY 02/09/24 02/11/24 History atorvastatin 80 mg tablet 80 mg PO HS 02/09/24 02/11/24 History cholecalciferol (vitamin D3) 25 25 mcg PO DAILY 02/09/24 02/11/24 History mcg (1,000 unit) chewable tablet (Vitamin D3) ferrous sulfate 325 mg (65 mg 325 mg PO .3x week 02/09/24 02/11/24 History iron) tablet (Feosol) finasteride 5 mg tablet 5 mg PO DAILY 02/09/24 02/11/24 History levetiracetam 1,000 mg tablet 1,000 mg PO BID 02/09/24 02/11/24 History (Keppra) lidocaine 4 % topical patch 1 patch topical Q24H 02/09/24 02/11/24 History (Aspercreme (lidocaine)) pantoprazole 40 mg tablet,delayed 40 mg PO QAM 02/09/24 02/11/24 History release polyethylene glycol 3350 17 gram 17 g PO DAILY 02/09/24 02/11/24 History oral powder packet (Miralax) prednisone 10 mg tablet 5 mg PO DIRECTED 02/09/24 02/11/24 History quetiapine 50 mg tablet 50 mg PO HS 02/09/24 02/11/24 History sennosides 8.6 mg-docusate sodium 1 tab-cap PO BID 02/09/24 02/11/24 History 50 mg tablet (Senna with Docusate Sodium) tiotropium 2.5 mcg-olodaterol 2.5 2 inh inhalation DAILY 02/09/24 02/11/24 History mcg/actuation mist for inhalation (Stiolto Respimat) tramadol 50 mg tablet 50 mg PO BID PRN moderate or more 02/09/24 02/11/24 History severe pain albuterol sulfate 2.5 mg/3 mL 2.5 mg inhalation Q6H PRN 02/10/24 02/11/24 History (0.083 %) solution for nebulization shortness of breath albuterol sulfate 90 mcg/actuation 1 puff inhalation QID PRN wheezing 02/10/24 02/11/24 History aerosol inhaler lacosamide 100 mg tablet 100 mg PO Q12H 02/10/24 02/11/24 History melatonin 5 mg tablet 5 mg PO HS PRN sleep 02/10/24 02/11/24 History potassium chloride 10 mEq 20 meq PO DAILY 02/10/24 02/11/24 History tablet,extended release(part/cryst) (Klor-Con M) bumetanide 2 mg tablet 2 mg PO DAILY 02/11/24 02/11/24 History mometasone-formoterol HFA 200 2 inh inhalation Q12H 02/11/24 02/11/24 History mcg-5 mcg/actuation aerosol inhaler (Dulera) Allergies Allergy/AdvReac Type Severity Reaction Status Date / Time gabapentin Allergy Mild Rash Verified 02/09/24 21:42 Vital Signs Vital Signs - 24 hr 02/12/24 10:00 02/12/24 11:39 02/12/24 12:00 Temperature 97.5 F L Pulse Rate 102 H 102 H Respiratory Rate 24 H Blood Pressure 106/70 Pulse Oximetry 100 94 Oxygen Delivery Nasal Cannula Oxygen Flow Rate 2 02/12/24 12:00 02/12/24 14:00 02/12/24 16:00 Temperature 97.9 F Pulse Rate 87 92 87 Respiratory Rate 18 Blood Pressure 118/62 Pulse Oximetry 100 Oxygen Delivery Oxygen Flow Rate 02/12/24 16:00 02/12/24 16:00 02/12/24 18:00 Temperature Pulse Rate 87 89 Respiratory Rate Blood Pressure Pulse Oximetry 94 Oxygen Delivery Nasal Cannula Oxygen Flow Rate 2 02/12/24 20:00 02/12/24 20:00 02/12/24 20:00 Temperature 98.1 F Pulse Rate 87 86 85 Respiratory Rate 16 16 Blood Pressure 126/69 Pulse Oximetry 95 95 Oxygen Delivery Nasal Cannula Oxygen Flow Rate 2 02/12/24 22:00 02/12/24 23:34 02/13/24 00:00 Temperature 97.7 F Pulse Rate 85 96 89 Respiratory Rate 20 Blood Pressure 117/70 Pulse Oximetry 92 Oxygen Delivery Oxygen Flow Rate 02/13/24 00:00 02/13/24 02:00 02/13/24 03:45 Temperature 98.5 F Pulse Rate 89 84 87 Respiratory Rate 15 20 Blood Pressure 122/61 Pulse Oximetry 95 95 Oxygen Delivery Nasal Cannula Oxygen Flow Rate 2 02/13/24 04:00 02/13/24 04:00 02/13/24 06:00 Temperature Pulse Rate 83 83 83 Respiratory Rate 15 Blood Pressure Pulse Oximetry 95 Oxygen Delivery Nasal Cannula Oxygen Flow Rate 2 02/13/24 07:14 02/13/24 08:05 02/13/24 08:06 Temperature 97.4 F L Pulse Rate 97 97 Respiratory Rate 24 H 18 Blood Pressure 146/76 H Pulse Oximetry 91 95 Oxygen Delivery High Flow Nasal Cannula Oxygen Flow Rate 8 Exam Const: General: comfortable and no acute distress Other: Elderly gentleman, appears chronically ill HENMT: Mouth: Yes dry mucous membranes Resp: Auscultation: rhonchi : Other: moderate-severe hypospadias, nontender to touch Urinary Catheter: Urinary Catheter: patent and draining and urine clear Neuro: Speech: normal speech Psych: Speech and movement: Normal speech and movement present Affect: normal affect Results Labs 02/13/24 04:56 02/13/24 04:56 Labs: Short CBC 02/13/24 Range/Units 04:56 WBC 8.0 (4.5-10.0) K/mm3 Hgb 9.8 L (14.0-18.0) g/dL Hct 32.0 L (42.0-52.0) % Plt Count 368 (150-375) k/mm3 BMP 02/13/24 04:56 Sodium 137 Potassium 3.9 Chloride 100 Carbon Dioxide 39 H BUN 21 H Creatinine 0.90 Glucose 87 Calcium 8.7 Liver Function 02/13/24 Range/Units 04:56 Total Bilirubin 0.6 (0.2-1.3) mg/dL AST 15 L (17-59) U/L ALT 8 (6-50) U/L Alkaline Phosphatase 150 H (38-126) U/L Albumin 3.1 L (3.5-5.1) g/dL
[2024-02-13] MEDS: LIDOCAINE 5% PATCH 1 PATCH TRANSDERM (11:30)
[2024-02-13] MEDS: AZITHROMYCIN 500 MG/NS 250 ML 500 MG/250 ML BAG 250 MG IVPB (11:31)
[2024-02-13] MEDS: FUROSEMIDE INJ 40 MG/4 ML VIAL IV PUSH (11:31)
[2024-02-13 11:52] LABS: Glucose Point of Care 104 mg/dl (65-105)
[2024-02-13 16:36] LABS: Glucose Point of Care 118 mg/dl (65-105)
[2024-02-13 20:42] LABS: Glucose Point of Care 224 mg/dl (65-105)
[2024-02-14] VITALS (7 sets, daily range): BP systolic 127–138; BP diastolic 62–79; PULSE 73–103; RESP 18–20; TEMP 36.3–37; O2SAT 97–100
[2024-02-14] MEDS: MORPHINE SULFATE (*CRX) 2 MG/ML INJ IV PUSH ×2 (00:37→11:41)
--- NOTE | 2024-02-14 07:55 | PM.IMPN ---
Subjective Date/time seen: 02/14/24 07:55 Interval history: Continue comfort Objective Data Vital Signs Vital Signs: Vital Signs - 24 hr 02/13/24 08:00 02/13/24 08:05 02/13/24 08:06 Temperature Pulse Rate 90 97 Respiratory Rate 18 Blood Pressure Pulse Oximetry 95 Oxygen Delivery High Flow Nasal Cannula Oxygen Flow Rate 8 02/13/24 10:00 02/13/24 11:11 02/13/24 12:00 Temperature 97.7 F Pulse Rate 96 96 90 Respiratory Rate 24 H Blood Pressure 129/69 Pulse Oximetry 99 Oxygen Delivery Oxygen Flow Rate 02/13/24 14:00 02/13/24 15:41 02/13/24 16:00 Temperature 97.9 F Pulse Rate 92 100 92 Respiratory Rate 20 Blood Pressure 121/72 Pulse Oximetry 98 Oxygen Delivery Oxygen Flow Rate 02/13/24 17:46 02/13/24 19:27 02/13/24 20:00 Temperature 97.5 F L Pulse Rate 99 117 H Respiratory Rate 20 Blood Pressure 132/76 Pulse Oximetry 97 98 Oxygen Delivery High Flow Nasal Cannula Oxygen Flow Rate 10 02/13/24 20:00 02/13/24 22:00 02/14/24 00:00 Temperature 97.9 F Pulse Rate 113 H 94 101 H Respiratory Rate 20 Blood Pressure 127/76 Pulse Oximetry 98 Oxygen Delivery Oxygen Flow Rate 02/14/24 00:00 02/14/24 00:00 02/14/24 02:00 Temperature Pulse Rate 95 88 Respiratory Rate Blood Pressure Pulse Oximetry 99 Oxygen Delivery High Flow Nasal Cannula Oxygen Flow Rate 10 02/14/24 04:00 02/14/24 04:00 02/14/24 04:00 Temperature 98.1 F Pulse Rate 73 86 Respiratory Rate 20 Blood Pressure 131/62 Pulse Oximetry 100 99 Oxygen Delivery High Flow Nasal Cannula Oxygen Flow Rate 10 Intake/Output Intake/Output: Intake & Output 02/11/24 02/12/24 02/13/24 02/14/24 23:59 23:59 23:59 23:59 Intake Total 540 990 150 Output Total 2500 1650 1750 375 Balance -1960 -660 -1750 -225 Meds/Results Medications: Active Medications Generic Name Dose Route Start Last Admin Trade Name Freq PRN Reason Stop Dose Admin Lorazepam 2 mg 02/13/24 18:06 Lorazepam Inj (*Crx) 2 Mg/Ml Vial IV PUSH Q6H PRN Anxiety Morphine Sulfate 2 mg 02/13/24 18:06 02/14/24 00:37 Morphine Sulfate (*Crx) 2 Mg/Ml Inj IV PUSH 2 mg Q4H PRN Administration Pain Rated 7-10 Radiology Results: ITS Impressions Chest CTA 02/12/24 13:02 IMPRESSION: No pulmonary embolus. No aortic dilatation. Bilateral pleural effusions with adjacent compressive atelectasis. Motion artifact precludes adequate evaluation for the presence or absence of pulmonary nodules. Panlobular emphysematous disease. Air-fluid level within the esophagus. Modified Barium Swallow 02/12/24 14:03 IMPRESSION: 1. Aspiration of all consistencies. 2. Please refer to the speech therapy report for recommendations. Chest X-Ray 02/13/24 08:05 IMPRESSION: 1. Airspace opacities in the mid and lower lung zones with mild worsening, consistent with atelectasis versus pneumonia. 2. Emphysema. 3. Stable small pleural effusions. Labs Labs: Laboratory Results - last 24 hr 02/13/24 02/13/24 02/13/24 07:22 11:15 16:29 POC Capillary Glucose 106 H 104 118 H 02/13/24 19:32 POC Capillary Glucose 224 H
--- NOTE | 2024-02-14 11:10 | PCNFU ---
Nutrition Follow-Up Complete: Swallowing difficulties related to dysphagia as evidenced by modified barium swallow results and need for NPO Goal:Meet estimated need Pt is meeting goal via PO Pt current nutrition is Regular. Nutrition recommendation: continue with current plan of care. comfort measures Last recorded weight is 64.3 kg. Bowel Motility: +BM 1/2 Labs Reviewed: Hgb:9.8, HCT:32, BUN:21, Glu:224 Meds Noted: morphine Skin: WNL Additional Notes: Pt failed MBS, recommendations for NPO however noted son and pt are aware of aspiration risks and have chosen to proceed with a regular diet, status changed to comfort measures. Noted pt does not want any nutrition supplements. Intake currently 50-100% of meals. Monitor intake, wt, labs. Follow up in 7 days.
--- NOTE | 2024-02-14 18:01 | P.DS_ITS ---
DS: Admitting Diagnosis Discharge Date 02/14/2024 Admitting Diagnosis Shortness of Breath DS: Discharge Diagnosis Discharge Diagnosis (1) Acute hypoxic respiratory failure: Code(s): J96.01 - Acute respiratory failure with hypoxia Status: Acute Assessment and Plan: Initiated on comfort (2) Chronic diastolic congestive heart failure, NYHA class 3: Code(s): I50.32 - Chronic diastolic (congestive) heart failure Status: Acute (3) COPD (chronic obstructive pulmonary disease): Code(s): J44.9 - Chronic obstructive pulmonary disease, unspecified Status: Acute (4) A-fib: Code(s): I48.91 - Unspecified atrial fibrillation Status: Acute (5) Diabetes mellitus: Code(s): E11.9 - Type 2 diabetes mellitus without complications Status: Acute (6) Seizure: Code(s): R56.9 - Unspecified convulsions Status: Acute DS: Summary Hospital Course Hospital Course: Patient was brought in to the ER with reports of altered mental status at home. Patient has a past medical history of COPD, CHF, seizure disorder on Keppra, aortic valve stenosis, mitral valve stenosis, CAD, pulmonary HTN, DM. Per medical records, patient was admitted to [facility] on 02/08 from [facility] s/p cardiac arrest, AMS with possible CVA, NSTEMI, sepsis. Per staff at [facility], patient became acutely dyspneic today and was noted to be hypoxic down into the 70s. He does wear 2 L nasal cannula at night, and does not typically require oxygen supplementation throughout the day. Was placed on non-rebreather, given a nebulizer treatment and Solu-Medrol in route to the ED. Patient keeps asking for just 1 cigarette, which he states he gets at home. Assumed care 02/11. Spoke with the son who reported that previously he took the patient to [facility] because he was not responding while watching TV. In [facility] ED he coded and was intubated. He reports he never was given explanation whether its Mi vs seizure or any other condition.Later he was discharged to [facility] and transferred to [facility]. During the course of hospitalization patient was treated for acute respiratory failure with hypoxia and for CHF. During the hospitalization patient oxygen need was increased. He failed his speech evaluation. Patient reported he wants to eat and drink coffee. He wants to smoke and live his life. He does not want any aggressive measures. Discussed with the son and patient who agrees for comfort care and hospice. Status at Discharge Cognitive/behavioral status at discharge: Prognosis guarded Time Spent with Patient Time attestation: Total time spent providing and/or coordinating discharge services: 45 minute Exam Narrative: General: Chronically ill appearing, respiratory distress with minimal exertion. HEENT: Atraumatic, PERRL, moist mucosa, EOM, anicteric. NECK: Supple. Lungs: Generally coarse and congested, expiratory wheezes, labored with minimal exertion. Heart: RRR, Grade II R. Sternal border murmur. Abdomen: Soft, non-tender, non-distended, +ve sounds X4 quadrants. Extremities: Acyanotic, no edema. Skin: Warm and dry, no lesions noted. Neuro: Well oriented, CN II-XII grossly intact. Psych: Pleasant and co-operative. DS: Data Data Completed and Pending Labs on day of discharge: Labs from last 24 hours 02/13/24 19:32 POC Capillary Glucose 224 H Preliminary micro results at discharge 02/11/24 10:47 Blood Culture - Preliminary Blood 02/11/24 11:10 Blood Culture - Preliminary Blood Discharge Plan Discharge Attending physician on discharge: James Dorantes Discharging Clinician: James Dorantes Anticipated Discharge Date/Time: 02/14/24 18:17 Patient Disposition: Hospice - Home Activity: as tolerated Diet: regular Discharge Instructions: Discharged to hospice. Medical reconciliation as per hospice protocol Patient Instructions: Apixaban (By mouth), Heart Failure (DC), Pneumonia (DC) Patient Language: Bermudian Stand Alone Forms: General Discharge Information Discharge Medications: Continued bumetanide 2 mg tablet 2 mg PO DAILY Dulera 200-5 mcg/actuation HFA aerosol inhaler 2 inh inhalation Q12H finasteride 5 mg tablet 5 mg PO DAILY levetiracetam [Keppra] 1,000 mg tablet 1,000 mg PO BID lidocaine [Aspercreme (lidocaine)] 4 % adhesive patch,medicated 1 patch topical Q24H Patient Comments: 1 patch by transdermal route nightly Rx Instructions: may leave on for up to 12 hrs pantoprazole 40 mg tablet,delayed release (DR/EC) 40 mg PO QAM prednisone 10 mg tablet 5 mg PO DIRECTED Patient Comments: take 1 tablet by mouth daily with breakfast for 3 days. THEN 0.5 tablets daily with breakfast for 3 days Rx Instructions: see taper instructions quetiapine 50 mg tablet 50 mg PO HS sennosides-docusate sodium [Senna with Docusate Sodium] 8.6-50 mg tablet 1 tab-cap PO BID Stiolto Respimat 2.5-2.5 mcg/actuation mist 2 inh inhalation DAILY tramadol 50 mg tablet 50 mg PO BID PRN (Reason: moderate or more severe pain) polyethylene glycol 3350 [Miralax] 17 gram powder in packet 17 g PO DAILY Patient Comments: dissolve in 4-8 oz lacosamide 100 mg tablet 100 mg PO Q12H melatonin 5 mg tablet 5 mg PO HS PRN (Reason: sleep) potassium chloride [Klor-Con M10] 10 mEq tablet,ER particles/crystals 20 meq PO DAILY albuterol sulfate 90 mcg/actuation HFA aerosol inhaler 1 puff inhalation QID PRN (Reason: wheezing) albuterol sulfate 2.5 mg /3 mL (0.083 %) solution for nebulization 2.5 mg inhalation Q6H PRN (Reason: shortness of breath) Discontinued apixaban 5 mg tablet 5 mg PO BID aspirin 81 mg capsule 81 mg PO DAILY atorvastatin 80 mg tablet 80 mg PO HS ferrous sulfate [Feosol] 325 mg (65 mg iron) tablet 325 mg PO .3x week Patient Comments: takes 3 times a week cholecalciferol (vitamin D3) [Vitamin D3] 25 mcg (1,000 unit) tablet,chewable 25 mcg PO DAILY Date of admission: 02/13/24 10:02 Primary Care Provider: UNKNOWN,DOCTOR Admitting Provider: Dimas Echavarria Attending physician on admission: Dimas Echavarria Condition: Guarded Prognosis
--- NOTE | 2024-02-14 23:32 | PC.NURSE ---
PTS SON CAME TO PICK PT UP SINCE AMBULANCE WOULDNT BE ABLE TO GET HERE TILL [employer]. BROUGHT PORTABLE O2 TANK. HOSPICE NOTIFIED PT LEAVING
--- OUTSIDE RECORDS SUMMARY | 2024-02-18 04:06 | XMS_ITS | Continuity of Care Document ---
Author Organization [facility] Address [address] [place] [address] Care Team Providers Care Casino Operations Supervisor Name Role Phone Misc, PCP Unknown Primary Care Physician Unavail able Encounter Date(s): 12/06/22 - 12/12/22 [facility] [address] [place] [address] Encounter Diagnosis GI bleed(Discharge Diagnosis) - 12/06/22 Altered mental status(Discharge Diagnosis) - 12/06/22 On mechanically assisted ventilation(Discharge Diagnosis) - 12/06/22 Pyelonephritis(Discharge Diagnosis) - 12/06/22 Anemia(Discharge Diagnosis) - 12/06/22 Indwelling Nash catheter present(Discharge Diagnosis) - 12/07/22 Complicated UTI (urinary tract infection)(Discharge Diagnosis) - 12/07/22 Metabolic acidosis(Discharge Diagnosis) - 12/07/22 Lactic acidosis(Discharge Diagnosis) - 12/07/22 Prediabetes(Discharge Diagnosis) - 12/07/22 Hypertension(Discharge Diagnosis) - 12/07/22 Chronic diastolic CHF (congestive heart failure)(Discharge Diagnosis) - 12/07/22 Chronic obstructive pulmonary disease(Discharge Diagnosis) - 12/07/22 Hemorrhagic shock(Discharge Diagnosis) - 12/07/22 ZIGGY (acute kidney injury)(Discharge Diagnosis) - 12/07/22 Discharge Disposition: Discharge to Home (Routine) Attending Physician: MD Braulio, Kimi Jensen Admitting Physician: MD Neftali, Pa Carlson Allergies, Adverse Reactions, Alerts No Known Allergies Assessment and Plan Future Scheduled Tests Laboratory* COVID-19,PCR PE 12/12/21 Functional Status 12/12/22 Activity Status ADL Dangle 12/12/22 Oral Intake 240 Lunch Percent 100% 12/12/22 Personal Care Provided Diaper/Brief chec ked: clean and dry 12/12/22 Breakfast Percent 100% 12/11/22 Indwelling Catheter Care Done Pericare, IUC Line Care Bath Type Complete bed bath 12/11/22 ADLs Moderate assistance Diet Type soft bland 12/11/22 Living Environment Home Environment No qualifying data available Lives In Single level home Lives With Spouse Living Situation Acute Home with Family Patient's Responsibilities Rehab Leisure /Play/Hobbies, Personal ADL, Social participation Detail Areas of Responsibilities No AD u sed inside the house, sometimes used 3WW outside. Does yard work Spouse manages meds/laundry/cooking stall shower, flat enter, grab bars, s/c with back/arms grab by by toilet (did not use), own [facility] Location Bed 1st floor Location Main Bathroom 1st floor Location Kitchen 1st floor Location Laundry 1st floor Prior Cognitive-Communication Skills Ind ependent Prior Grooming Status Independent Prior Bathing Status Independent Prior UB Dressing Status Independent Prior LB Dressing Status Independent Prior Toileting Status Independent Prior Accessbility Options Acute Stairs 12/10/22 Dinner Percent 100% 12/09/22 Pressure Reducing Device for Bed Standar d mattress 12/09/22 Prior Household Ambulation Status Modifi ed Independent Prior Bed Mobility Status Modified Indep endent Prior Limited Community Ambulation Statu Modified Independent Prior Transfers (Chair/Toilet) Status Mo dified Independent 12/08/22 Elimination Assistance Offered Q2H Offer ed/Performed 12/08/22 Antiembolism Device SCD below the knee, bilateral Positioning/Pressure Reducing Devices Fo am wedge 12/06/22 Assistive Device Slider sheet Lifting Equipment Slide board/sheet Immunizations Given and Recorded Vaccine Date Status Refusal Reason influenza, injectable, MDCK, quad, PF. 11/06/16 Re corded Medications Advair Diskus 250 mcg-50 mcg inhalation powder 1 puffs, Inhale, Resp BID, last 07/2022, # 180 EA, 0 Refill(s) Start Date: 12/11/22 Status: Ordered albuterol 90 mcg/inh inhalation aerosol 1 puffs, Inhale, every 6 hr, PRN as needed for wheezing, last 12/05/22 [facility], # 18 g, 0 Refill(s) Start Date: 12/11/22 Status: Ordered cloNIDine 0.1 mg = 1 tab, Oral, Tab, First Dose: 12/12/22 8:00:00 PDT, Stop Date: 12/12/22 8:00:00 PDT Start Date: 12/12/22 Stop Date: 12/12/22 Status: Completed docusate-senna 50 mg-8.6 mg oral tablet 1 tab, Oral, BID, PRN constipation, last 12/05/22 [facility], # 30 tab, 0 Refill(s) Start Date: 12/11/22 Status: Ordered FeroSul 325 mg (65 mg elemental iron) oral tablet 325 mg = 1 tab, Oral, Fri/Fri/Fri, last 12/05/22 [facility], # 90 tab, 0 Refill(s) Start Date: 12/11/22 Status: Ordered Fish Oil 1000 mg oral capsule 1,000 mg = 1 cap, Oral, Daily, last 11/2022 [facility], # 60 cap, 0 Refill(s) Start Date: 12/11/22 Status: Ordered Flomax 0.4 mg oral capsule 0.8 mg = 2 cap, Oral, Daily, last 11/2022 [facility], # 90 cap, 0 Refill(s) Start Date: 12/11/22 Status: Ordered Lasix 40 mg = 1 tab, Oral, Tab, First Dose: 12/12/22 8:00:00 PDT, Stop Date: 12/12/22 8:00:00 PDT Start Date: 12/12/22 Stop Date: 12/12/22 Status: Completed Lipitor 80 mg oral tablet 80 mg = 1 tab, Oral, Daily, last 12/05/22 [facility], # 90 tab, 0 Refill(s) Start Date: 12/11/22 Status: Ordered metFORMIN 500 mg oral tablet, extended release 500 mg = 1 tab, Oral, Daily, last 11/2022 [facility], # 30 tab, 0 Refill(s) Start Date: 12/11/22 Status: Ordered metoprolol succinate 200 mg oral tablet, extended release 100 mg = 0.5 tab, Oral, Daily, last 05/2022 [facility], # 30 tab, 0 Refill(s) Start Date: 12/11/22 Status: Ordered Proscar 5 mg oral tablet 5 mg = 1 tab, Oral, Daily, last 04/2022 [facility], # 30 tab, 0 Refill(s) Start Date: 12/11/22 Status: Ordered Protonix 40 mg oral delayed release tablet 40 mg = 1 tab, Oral, BID, last 11/2022 [facility], # 60 tab, 0 Refill(s), Pharmacy: [facility], 174, cm, 12/08/22 9:07:00 PDT, Height/Length Measured, 87.6, kg, 12/10/22 6:52:00 PDT, Weight Dosing Start Date: 12/12/22 Status: Ordered Spiriva 18 mcg inhalation capsule 18 mcg = 1 cap, Inhale, Daily, use two inhalations of one capsule for each dose, # 30 EA, 0 Refill(s) Start Date: 12/11/22 Status: Ordered traMADol 50 mg oral tablet 50 mg = 1 tab, Oral, every 12 hr, last 11/2022 [facility], 0 Refill(s) Start Date: 12/11/22 Status: Ordered Vitamin D3 1000 intl units oral tablet 25 mcg = 1 tab, Oral, Daily, last 12/05/22 [facility], # 30 tab, 0 Refill(s) Start Date: 12/11/22 Status: Ordered Mental Status 12/12/22 Eye Opening Response Jorge Luis Spontaneous ly Best Verbal Response Jorge Luis Oriented Best Motor Response Parker Obeys comman ds Parker Coma Score 15 12/07/22 Response to Stimuli Affected by (adult) Sedation Problem List Condition Confirmation Course Effective Dates Status Health St atus Informant At risk for falls 1 Confirmed 12/02/21 Active Chronic diastolic CHF (congestive heart failure) Confirmed Active Chronic obstructive pulmonary disease Confirmed Active HLD (hyperlipidemia) Confirmed Active Hypertension Confirmed Active Stenosis of left internal carotid artery Confirmed Active Prediabetes Confirmed Active Tobacco dependence Confirmed Active 1Problem added automatically by system based on order of Add At Risk for Infection to Problem List Diagnosis Diagnosis Type Effective Dates Health Status Clinical Service Informant GI bleed Discharge Diagnosis 12/06/22 Altered mental status Discharge Diagnosis 12/06/22 On mechanically assisted ventilation Discharge Diagnosis 12/06/22 Pyelonephritis Discharge Diagnosis 12/06/22 Anemia Discharge Diagnosis 12/06/22 Indwelling Nash catheter present Discharge Diagnosis 12/07/22 Complicated UTI (urinary tract infection) Discharge Diagnosis 12/07/22 Metabolic acidosis Discharge Diagnosis 12/07/22 Lactic acidosis Discharge Diagnosis 12/07/22 Prediabetes Discharge Diagnosis 12/07/22 Hypertension Discharge Diagnosis 12/07/22 Chronic diastolic CHF (congestive heart failure) Discharge Diagnosis 12/07/22 Chronic obstructive pulmonary disease Discharge Diagnosis 12/07/22 Hemorrhagic shock Discharge Diagnosis 12/07/22 ZIGGY (acute kidney injury) Discharge Diagnosis 12/07/22 Results Laboratory List Name Date .Automated Diff 12/12/22 .Estimated Glomerular Filtration Rate CBC with Differential 12/12/22 Renal Panel 2 (BMP+Mg,Phos,Uric) 12/12/22 .Estimated Glomerular Filtration Rate Renal Panel 2 (BMP+Mg,Phos,Uric) 12/11/22 .Automated Diff 12/11/22 .Estimated Glomerular Filtration Rate CBC with Differential 12/11/22 Renal Panel 2 (BMP+Mg,Phos,Uric) 12/11/22 PT/INR 12/10/22 Partial Thromboplastin Time 12/10/22 .Automated Diff 12/10/22 CBC with Differential 12/10/22 PT/INR 12/07/22 Partial Thromboplastin Time (PTT) Hemoglobin A1c (Glycosylated) 12/06/22 Biofire Pneumonia Panel [facility] 12/06/22 VBG (Lactic Acid Only) [place] 12/06/22 VBG Alert Panel ([facility] ED Alert Panel) Triglycerides 12/06/22 VBG (Lactic Acid Only) [place] 12/06/22 .Estimated Glomerular Filtration Rate Co rrected 12/06/22 Complete Metabolic Panel (CMP) 12/06/22 PT/INR (PT with INR) 12/06/22 Troponin-I High Sensitivity 12/06/22 VBG Alert Panel ([facility] ED Alert Panel) VBG Alert Panel ([facility] ED Alert Panel) Ammonia Level 12/06/22 Complete Metabolic Panel (CMP) 12/06/22 UA with Microscopic, Culture if Ind 11/11 09/01 VBG Alert Panel ([facility] ED Alert Panel) Blood Gases Most recent to oldest [Reference Range]: 1 2 3 pH Shadi [7.36-7.41] 7.32 *LOW* (12/06/22 7:59 AM) 7.19 1 *CRIT* (12/06/22 4:11 AM) 7.16 2 *CRIT* (12/06/22 3:16 AM) pCO2 Shadi [40-45 mmHg] 50 mmHg *HI* (12/06/22 7:59 AM) 47 mmHg *HI* (12/06/22 4:11 AM) 43 mmHg (12/06/22 3:16 AM) pO2 Shadi [35.0-40.0 mmHg] 117.0 mmHg *HI* (12/06/22 7:59 AM) 70.0 mmHg *HI* (12/06/22 4:11 AM) 53.0 mmHg *HI* (12/06/22 3:16 AM) Na Shadi [136-145 mmol/L] 136 mmol/L (12/06/22 7:59 AM) 134 mmol/L *LOW* (12/06/22 4:11 AM) 138 mmol/L (12/06/22 3:16 AM) K Shadi [3.6-5.1 mmol/L] 3.3 mmol/L *LOW* (12/06/22 7:59 AM) 3.8 mmol/L (12/06/22 4:11 AM) 3.8 mmol/L (12/06/22 3:16 AM) Cl. [101-111 mmol/L] 102 mmol/L (12/06/22 7:59 AM) 100 mmol/L *LOW* (12/06/22 4:11 AM) 100 mmol/L *LOW* (12/06/22 3:16 AM) Calcium Ionized [1.15-1.35 mmol/L] 1.14 mmol/L *LOW* (12/06/22 7:59 AM) 1.12 mmol/L *LOW* (12/06/22 4:11 AM) 1.17 mmol/L (12/06/22 3:16 AM) Glucose Shadi [74-118 mg/dL] 177 mg/dL *HI* (12/06/22 7:59 AM) 166 mg/dL *HI* (12/06/22 4:11 AM) 199 mg/dL *HI* (12/06/22 3:16 AM) Lactic Acid Shadi [0.5-1.6 mmol/L] 2.7 mmol/L *HI* (12/06/22 9:30 AM) 2.5 mmol/L *HI* (12/06/22 7:59 AM) 3.5 mmol/L *HI* (12/06/22 7:05 AM) Hgb Shadi [13.5-17.5 g/dL] 9.7 g/dL *LOW* (12/06/22 7:59 AM) 7.3 g/dL *LOW* (12/06/22 4:11 AM) 6.6 g/dL 3 *CRIT* (12/06/22 3:16 AM) O2Hb Shadi [70.0-75.0 %] 95.4 % *HI* (12/06/22 7:59 AM) 90.9 % *HI* (12/06/22 4:11 AM) 69.1 % *LOW* (12/06/22 3:16 AM) COHb Shadi [0.5-1.5 %] 1.4 % (12/06/22 7:59 AM) 2.2 % *HI* (12/06/22 4:11 AM) 3.4 % *HI* (12/06/22 3:16 AM) MetHb Shadi [0.0-1.5 %] 1.7 % *HI* (12/06/22 7:59 AM) 1.1 % (12/06/22 4:11 AM) 1.2 % (12/06/22 3:16 AM) HHb Shadi [25.0-30.0 %] 1.5 % *LOW* (12/06/22 7:59 AM) 5.7 % *LOW* (12/06/22 4:11 AM) 26.4 % (12/06/22 3:16 AM) O2 Sat Shadi [50.0-70.0 %] 98.5 % *HI* (12/06/22 7:59 AM) 94.1 % *HI* (12/06/22 4:11 AM) 72.4 % *HI* (12/06/22 3:16 AM) Base Excess Shadi [-2.0-3.0 mmol/L] -0.6 mmol/L (12/06/22 7:59 AM) -9.5 mmol/L *LOW* (12/06/22 4:11 AM) -12.4 mmol/L *LOW* (12/06/22 3:16 AM) HCO3 Shadi [22.0-26.0 mmol/L] 25.8 mmol/L (12/06/22 7:59 AM) 18.0 mmol/L *LOW* (12/06/22 4:11 AM) 15.3 mmol/L *LOW* (12/06/22 3:16 AM) HCO3- Std Shadi [22.0-26.0 mmol/L] 24.4 mmol/L (12/06/22 7:59 AM) 17.5 mmol/L *LOW* (12/06/22 4:11 AM) 14.9 mmol/L *LOW* (12/06/22 3:16 AM) O2 Control LPM 15.0 L/min *NA* (12/06/22 2:43 AM) FiO2 Shadi 80 % *NA* (12/06/22 7:59 AM) 100 % *NA* (12/06/22 4:11 AM) 100 % *NA* (12/06/22 3:16 AM) Hct. [40.0-54.0 %] 29.0 % *LOW* (12/06/22 7:59 AM) 22.0 % *LOW* (12/06/22 4:11 AM) 20.0 % 4 *CRIT* (12/06/22 3:16 AM) 1Result Comment: Critical value called to and read back by SABRINA EMERY at 12/06/2022 04:17:31 PDT by CONOR. 2Result Comment: Critical value called to and read back by SABRINA EMERY at 12/06/2022 03:22:58 PDT by 3Result Comment: Critical value called to and read back by SABRINA EMERY at 12/06/2022 03:22:58 PDT by 4Result Comment: Critical value called to and read back by SABRINA EMERY at 12/06/2022 03:22:58 PDT by RO. Hematology Most recent to oldest [Reference Range]: 1 2 3 WBC [4.00-12.00 x10^3/mcL] 7.71 x10^3/mc L (12/12/22 6:19 AM) 8.36 x10^3/mcL (12/11/22 5:04 AM) 8.92 x10^3/mcL (12/10/22 5:11 AM) RBC [4.60-6.20 x10^6/mcL] 3.60 x10^6/mcL *LOW* (12/12/22 6:19 AM) 3.76 x10^6/mcL *LOW* (12/11/22 5:04 AM) 3.97 x10^6/mcL *LOW* (12/10/22 5:11 AM) Hgb [13.5-17.5 g/dL] 10.4 g/dL *LOW* (12/12/22 6:19 AM) 10.8 g/dL *LOW* (12/11/22 5:04 AM) 11.6 g/dL *LOW* (12/10/22 5:11 AM) Hct [40.0-54.0 %] 34.1 % *LOW* (12/12/22 6:19 AM) 34.6 % *LOW* (12/11/22 5:04 AM) 36.8 % *LOW* (12/10/22 5:11 AM) MCV [80.0-100.0 fL] 94.7 fL (12/12/22 6:19 AM) 92.0 fL (12/11/22 5:04 AM) 92.7 fL (12/10/22 5:11 AM) MCH [27.0-34.0 pg] 28.9 pg (12/12/22 6:19 AM) 28.7 pg (12/11/22 5:04 AM) 29.2 pg (12/10/22 5:11 AM) MCHC [30.0-36.0 g/dL] 30.5 g/dL (12/12/22 6:19 AM) 31.2 g/dL (12/11/22 5:04 AM) 31.5 g/dL (12/10/22 5:11 AM) Platelets [130-400 x10^3/mcL] 249 x10^3/mcL (12/12/22 6:19 AM) 253 x10^3/mcL (12/11/22 5:04 AM) 248 x10^3/mcL (12/10/22 5:11 AM) MPV [9.4-12.4 fL] 11.0 fL (12/12/22 6:19 AM) 11.2 fL (12/11/22 5:04 AM) 11.2 fL (12/10/22 5:11 AM) RDW-CV [11.3-14.8 %] 17.1 % *HI* (12/12/22 6:19 AM) 17.2 % *HI* (12/11/22 5:04 AM) 18.1 % *HI* (12/10/22 5:11 AM) RDW-SD [36.3-48.9 fL] 59.2 fL *HI* (12/12/22 6:19 AM) 57.9 fL *HI* (12/11/22 5:04 AM) 61.6 fL *HI* (12/10/22 5:11 AM) Neut Auto% [42.00-72.00 %] 67.40 % (12/12/22 6:19 AM) 70.60 % (12/11/22 5:04 AM) 73.40 % *HI* (12/10/22 5:11 AM) Lymp Auto% [17.00-45.00 %] 18.70 % (12/12/22 6:19 AM) 15.20 % *LOW* (12/11/22 5:04 AM) 12.10 % *LOW* (12/10/22 5:11 AM) [place] Auto% [3.00-10.00 %] 9.30 % (12/12/22 6:19 AM) 10.40 % *HI* (12/11/22 5:04 AM) 12.40 % *HI* (12/10/22 5:11 AM) Eos% Auto [1.00-10.00 %] 3.90 % (12/12/22 6:19 AM) 3.30 % (12/11/22 5:04 AM) 1.50 % (12/10/22 5:11 AM) Baso Auto% [0.00-2.00 %] 0.40 % (12/12/22 6:19 AM) 0.10 % (12/11/22 5:04 AM) 0.20 % (12/10/22 5:11 AM) Im Gr Auto% [0.00-2.00 %] 0.30 % (12/12/22 6:19 AM) 0.40 % (12/11/22 5:04 AM) 0.40 % (12/10/22 5:11 AM) NRBC% [<=1.00 %] 0.00 % (12/12/22 6:19 AM) 0.00 % (12/11/22 5:04 AM) 0.00 % (12/10/22 5:11 AM) Neut Abs [1.60-8.30 x10^3/mcL] 5.20 x10^3/mcL (12/12/22 6:19 AM) 5.90 x10^3/mcL (12/11/22 5:04 AM) 6.54 x10^3/mcL (12/10/22 5:11 AM) Lym Ab [1.00-4.50 x10^3/mcL] 1.44 x10^3/mcL (12/12/22 6:19 AM) 1.27 x10^3/mcL (12/11/22 5:04 AM) 1.08 x10^3/mcL (12/10/22 5:11 AM) [place] Abs [0.10-0.90 x10^3/mcL] 0.72 x10^3/mcL (12/12/22 6:19 AM) 0.87 x10^3/mcL (12/11/22 5:04 AM) 1.11 x10^3/mcL *HI* (12/10/22 5:11 AM) Eos Abs [0.00-0.55 x10^3/mcL] 0.30 x10^3/mcL (12/12/22 6:19 AM) 0.28 x10^3/mcL (12/11/22 5:04 AM) 0.13 x10^3/mcL (12/10/22 5:11 AM) Baso Abs [0.00-0.20 x10^3/mcL] 0.03 x10^3/mcL (12/12/22 6:19 AM) 0.01 x10^3/mcL (12/11/22 5:04 AM) 0.02 x10^3/mcL (12/10/22 5:11 AM) Im Gran Abs [0.01-0.03 x10^3/mcL] 0.02 x10^3/mcL (12/12/22 6:19 AM) 0.03 x10^3/mcL (12/11/22 5:04 AM) 0.04 x10^3/mcL *HI* (12/10/22 5:11 AM) NRBC Absolute [<=0.01 x10^3/mcL] 0.00 x10^3/mcL (12/12/22 6:19 AM) 0.00 x10^3/mcL (12/11/22 5:04 AM) 0.00 x10^3/mcL (12/10/22 5:11 AM) Coagulation Most recent to oldest [Reference Range]: 1 2 3 PT [9.3-11.5 seconds] 10.4 seconds (12/10/22 1:00 PM) 11.3 seconds (12/07/22 8:42 AM) 14.3 seconds *HI* (12/06/22 4:11 AM) INR [0.90-1.11] 0.98 (12/10/22 1:00 PM) 1.07 (12/07/22 8:42 AM) 1.38 *HI* (12/06/22 4:11 AM) PTT [22.75-32.96 seconds] 26.70 seconds (12/10/22 1:00 PM) 26.00 seconds (12/07/22 8:42 AM) Chemistry Most recent to oldest [Reference Range]: 1 2 3 Ammonia Level [10-53 mcmol/L] 40 mcmol/L (12/06/22 2:58 AM) Sodium Level [135.0-144.0 mmol/L] 144.0 mmol/L (12/12/22 6:19 AM) 144.0 mmol/L (12/11/22 4:02 PM) 142.0 mmol/L (12/11/22 5:04 AM) Potassium Level [3.5-5.1 mmol/L] 3.7 mmol/L (12/12/22 6:19 AM) 4.1 mmol/L (12/11/22 4:02 PM) 2.7 mmol/L 1 *CRIT* (12/11/22 5:04 AM) Chloride Level [101-111 mmol/L] 105 mmol/L (12/12/22 6:19 AM) 106 mmol/L (12/11/22 4:02 PM) 105 mmol/L (12/11/22 5:04 AM) CO2 [22.0-32.0 mmol/L] 35.0 mmol/L *HI* (12/12/22 6:19 AM) 36.1 mmol/L *HI* (12/11/22 4:02 PM) 32.5 mmol/L *HI* (12/11/22 5:04 AM) Anion Gap [4.0-16.0 mmol/L] 7.7 mmol/L (12/12/22 6:19 AM) 6.0 mmol/L (12/11/22 4:02 PM) 7.2 mmol/L (12/11/22 5:04 AM) Glucose Level [74-118 mg/dL] 101 mg/dL (12/12/22 6:19 AM) 98 mg/dL (12/11/22 4:02 PM) 133 mg/dL *HI* (12/11/22 5:04 AM) BUN [6-20 mg/dL] 7 mg/dL (12/12/22 6:19 AM) 6 mg/dL (12/11/22 4:02 PM) 8 mg/dL (12/11/22 5:04 AM) Creatinine Lvl [0.50-1.20 mg/dL] 0.86 mg/dL (12/12/22 6:19 AM) 0.84 mg/dL (12/11/22 4:02 PM) 0.74 mg/dL (12/11/22 5:04 AM) BUN/Creat Ratio [6.0-27.0 ratio] 8.7 ratio (12/12/22 6:19 AM) 7.4 ratio (12/11/22 4:02 PM) 10.5 ratio (12/11/22 5:04 AM) Calcium Level [7.5-10.4 mg/dL] 8.6 mg/dL (12/12/22 6:19 AM) 8.7 mg/dL (12/11/22 4:02 PM) 8.6 mg/dL (12/11/22 5:04 AM) Bilirubin Total [0.40-2.00 mg/dL] 0.30 mg/dL *LOW* (10/27/23 4:11 AM) 0.37 mg/dL *LOW* (12/06/22 2:58 AM) Protein Total [6.1-7.9 g/dL] 4.7 g/dL *LOW* (12/06/22 4:11 AM) 5.9 g/dL *LOW* (12/06/22 2:58 AM) Albumin Level [3.5-5.7 g/dL] 2.7 g/dL *LOW* (12/06/22 4:11 AM) 3.5 g/dL (12/06/22 2:58 AM) AST [15-41 IntlUnit/L] 26 IntlUnit/L (12/06/22 4:11 AM) 22 IntlUnit/L (12/06/22 2:58 AM) ALT [3-36 IntlUnit/L] 11 IntlUnit/L (12/06/22 4:11 AM) 9 IntlUnit/L (12/06/22 2:58 AM) Alk Phos [34-104 IntlUnit/L] 50 IntlUnit /L (12/06/22 4:11 AM) 60 IntlUnit/L (12/06/22 2:58 AM) Magnesium [1.8-2.5 mg/dL] 1.9 mg/dL (12/12/22 6:19 AM) 1.9 mg/dL (12/11/22 4:02 PM) 1.8 mg/dL (12/11/22 5:04 AM) Phosphorus Lvl [2.4-4.7 mg/dL] 3.0 mg/dL (12/12/22 6:19 AM) 2.8 mg/dL (12/11/22 4:02 PM) 3.2 mg/dL (12/11/22 5:04 AM) Uric Acid [3.0-8.0 mg/dL] 8.4 mg/dL *HI* (12/12/22 6:19 AM) 8.2 mg/dL *HI* (12/11/22 4:02 PM) 8.0 mg/dL (12/11/22 5:04 AM) Hemoglobin A1c [4.0-5.6 %] 5.3 % (12/06/22 5:05 PM) Triglycerides [10-200 mg/dL] 61 mg/dL (12/06/22 7:58 AM) eGFR CKD-EPI 89 2 *NA* (12/12/22 6:19 AM) 89 3 *NA* (12/11/22 4:02 PM) >90 4 *NA* (12/11/22 5:04 AM) eGFR Correction Yes (12/06/22 4:11 AM) Troponin-I HS [0.000-0.040 ng/mL] 0.015 ng/mL (12/06/22 4:11 AM) 1Result Comment: Critical value called to and read back by Margo Torres RN 2N at 12/11/2022 05:53:07 PDT by LUIS F/. 2Result Comment: eGFR CKD-EPI Result created via Discern Rule: [GL_GFR_CALC_CKDEPI] 3Result Comment: eGFR CKD-EPI Result created via Discern Rule: [GL_GFR_CALC_CKDEPI] 4Result Comment: eGFR CKD-EPI Result created via Discern Rule: [GL_GFR_CALC_CKDEPI] Urinalysis Most recent to oldest [Reference Range]: 1 2 3 UA Clarity HAZY *NA* (12/06/22 2:55 AM) UA Color [Yellow] Shelley *ABN* (12/06/22 2:55 AM) UA pH [5.0-8.0] 6.0 (12/06/22 2:55 AM) UA Spec Grav [1.006-1.029] 1.016 (12/06/22 2:55 AM) UA Protein [Negative mg/dL] 100 mg/dL *ABN* (12/06/22 2:55 AM) UA Glucose [Negative mg/dL] Negative mg/ dL (12/06/22 2:55 AM) UA Ketones [Negative mg/dL] Negative mg/ dL (12/06/22 2:55 AM) UA Blood SMALL *NA* (12/06/22 2:55 AM) UA Bilirubin [Negative] Negative (12/06/22 2:55 AM) UA Nitrite [Negative] Negative (12/06/22 2:55 AM) UA Urobilinogen [0.2 mg/dL] 2.0 mg/dL *ABN* (12/06/22 2:55 AM) UA Leuk Est MODERATE *NA* (12/06/22 2:55 AM) UA Culture Indicated? [No] Yes *ABN* (12/06/22 2:55 AM) UA RBC [0-3 /HPF] 101 /HPF *HI* (12/06/22 2:55 AM) UA WBC [0-3 /HPF] 87 /HPF *HI* (12/06/22 2:55 AM) UA Bacteria FEW /HPF *NA* (12/06/22 2:55 AM) UA Epi Squam [0-3 /HPF] 2 /HPF (12/06/22 2:55 AM) UA Epi Renal [<=1 /HPF] 0 /HPF (12/06/22 2:55 AM) UA Mucus RARE /LPF *NA* (12/06/22 2:55 AM) UA WBC Clumps MANY /HPF *NA* (12/06/22 2:55 AM) Immunology/Serology Most recent to oldest [Reference Range]: 1 2 3 Acinetobater calcoaceticus-baumanni comp [Not Detected] Not Detected (12/06/22 3:28 PM) E. cloacae cmp [Not Detected] Not Detect ed (12/06/22 3:28 PM) Escherichia coli [Not Detected] Not Dete cted (12/06/22 3:28 PM) Klebsiella aerogenes [Not Detected] Not Detected (12/06/22 3:28 PM) Klebsiella oxytoca [Not Detected] Not De tected (12/06/22 3:28 PM) Klebsiella pneumoniae group [Not Detecte d] Not Detected (12/06/22 3:28 PM) Moraxella catarrhalis [Not Detected] Not Detected (12/06/22 3:28 PM) Proteus spp. [Not Detected] Not Detected (12/06/22 3:28 PM) Pseudomonas aeruginosa [Not Detected] No t Detected (12/06/22 3:28 PM) Serratia marcescens [Not Detected] Detec remington BIN 10^5 1 *CRIT* (12/06/22 3:28 PM) Staphylococcus aureus [Not Detected] Not Detected (12/06/22 3:28 PM) Streptococcus pyogenes [Not Detected] No t Detected (12/06/22 3:28 PM) CTX-M [Not Detected] Not Detected (12/06/22 3:28 PM) IMP [Not Detected] Not Detected (12/06/22 3:28 PM) KPC [Not Detected] Not Detected (12/06/22 3:28 PM) mecA/C MREJ [Not Detected] Not Applicabl e *NA* (12/06/22 3:28 PM) NDM [Not Detected] Not Detected (12/06/22 3:28 PM) Oxa48 [Not Detected] Not Detected (12/06/22 3:28 PM) VIM [Not Detected] Not Detected (12/06/22 3:28 PM) Legionella pneumophila [Not Detected] No t Detected (12/06/22 3:28 PM) Coronavirus [Not Detected] Not Detected (12/06/22 3:28 PM) Parainfluenza virus [Not Detected] Not D etected (12/06/22 3:28 PM) Adenovirus [Not Detected] Not Detected (12/06/22 3:28 PM) Human Metapneumovirus [Not Detected] Not Detected (12/06/22 3:28 PM) Human Rhinovirus/Enterovirus [Not Detect ed] Not Detected (12/06/22 3:28 PM) Influenza A [Not Detected] Not Detected (12/06/22 3:28 PM) Influenza B [Not Detected] Not Detected (12/06/22 3:28 PM) Respiratory Syncytial Virus [Not Detecte d] Not Detected (12/06/22 3:28 PM) Chlamydia pneumoniae [Not Detected] Not Detected (12/06/22 3:28 PM) Mycoplamsa pneumoniae [Not Detected] Not Detected (12/06/22 3:28 PM) H. influenzae [Not Detected] Detected BI N 10^7 2 *CRIT* (12/06/22 3:28 PM) Streptococcus agalactiae (Group B) [Not Detected] Not Detected (12/06/22 3:28 PM) Streptococcus pneumoniae [Not Detected] Not Detected (12/06/22 3:28 PM) 1Result Comment: Critical value called to and read back by Apolonia Esquivel RN @ ICU at 12/06/2022 19:50:38 PDT by GBE. 2Result Comment: Critical value called to and read back by Apolonia Esquivel RN @ ICU at 12/06/2022 19:50:38 PDT by BARBARA. Transfusion Data Most recent to oldest [Reference Range]: 1 2 3 Transfusion Unit Number END [id number] (12/07/22 12:03 PM) START [id number] (12/07/22 10:59 AM) END [id number] (12/07/22 10:55 AM) Donor Blood Type O positive (12/07/22 10:59 AM) O positive (12/07/22 9:35 AM) Blood Product Red Blood Cells Leukoreduced (12/07/22 12:03 PM) Red Blood Cells Leukoreduced (12/07/22 10:59 AM) Red Blood Cells Leukoreduced (12/07/22 10:55 AM) Donation Type Volunteer homologous (allogeneic) donor (12/07/22 12:03 PM) Volunteer homologous (allogeneic) donor (12/07/22 10:59 AM) Volunteer homologous (allogeneic) donor (12/07/22 10:55 AM) Division 00 (12/07/22 12:03 PM) 00 (12/07/22 10:59 AM) 00 (12/07/22 10:55 AM) Blood Product Expiration 01/06/2023 23:59 (12/07/22 10:59 AM) 01/08/2023 23:59 (12/07/22 9:35 AM) Pre-Transfusion Checks Transfusion order reviewed: Informed consent verified: Transfusion education provided: Filter tubing used: Attributes: None (12/07/22 10:59 AM) Transfusion order reviewed: Informed consent verified: Transfusion education provided: Attributes: None (12/07/22 9:35 AM) User ID Bubba Lin (12/07/22 12:03 PM) Marycruz Guzman (12/07/22 10:59 AM) Marycruz Guzman (12/07/22 10:55 AM) Transfusion Started 12/07/2022 10:59 (12/07/22 10:59 AM) 12/07/2022 09:35 (12/07/22 9:35 AM) Transfusion Ended 12/07/2022 12:03 (12/07/22 12:03 PM) 12/07/2022 10:55 (12/07/22 10:55 AM) Red Blood Cells Volume Transfused 500 mL (12/07/22 12:03 PM) 500 mL (12/07/22 10:55 AM) Orders for Microbiology Reports Name Date Quantitative Culture 12/06/22 Respiratory Culture with Gram Stain (Spu malu Culture with Gram Stain) 12/06/22 Cindy auris Screen 12/06/22 Nasal MRSA Screen 12/06/22 Blood Culture 12/06/22 Blood Culture 12/06/22 Urine Culture 12/06/22 Microbiology Reports TEST:Respiratory Culture with Gram Stain STATUS:Auth (Verified) BODY SITE: SOURCE:Deep Endotracheal Aspirate COLLECTED DATE/TIME:12/06/22 3:28 PM FINAL REPORT Occasional Serratia marcescens 1+ Typical oral-pharyngeal melba. No MRSA or Pseudomonas found STAIN REPORT 5 WBCs/lpf 0 Epithelial cells/lpf Occasional Typical oral-pharyngeal melba. ORGANISM:Serratia marcescens TEST:Quantitative Culture STATUS:Auth (Verified) BODY SITE: SOURCE:Deep Endotracheal Aspirate COLLECTED DATE/TIME:12/06/22 3:28 PM FINAL REPORT 20,000 cfu/ml Serratia marcescens 60,000 cfu/ml Typical oral-pharyngeal melba. TEST:Nasal MRSA Screen STATUS:Auth (Verified) BODY SITE: SOURCE:Nasal COLLECTED DATE/TIME:12/06/22 11:00 AM FINAL REPORT Negative for MRSA. - Negative results are highly indicative (>95%) of not having MRSA pneumonia TEST:Cindy Auris Screen STATUS:Auth (Verified) BODY SITE:Bilateral Axilla and Groin SOURCE:Bilateral Axilla and Groin COLLECTED DATE/TIME:12/06/22 11:00 AM FINAL REPORT Negative for Cindy auris. TEST:Blood Culture STATUS:Auth (Verified) BODY SITE: SOURCE:Blood COLLECTED DATE/TIME:12/06/22 7:57 AM FINAL REPORT No growth at 121 Hours TEST:Blood Culture STATUS:Auth (Verified) BODY SITE: SOURCE:Blood COLLECTED DATE/TIME:12/06/22 7:57 AM FINAL REPORT No growth at 121 Hours TEST:Urine Culture1 STATUS:Auth (Verified) BODY SITE: SOURCE:Urine, Nash Catheterized COLLECTED DATE/TIME:12/06/22 2:55 AM FINAL REPORT >100,000 cfu/ml Proteus mirabilis ORGANISM:Proteus mirabilis INTERPRETIVE DATA 1In non-pediatric patients treatment is not recommended with asymptomatic bacteriuria as clinical outcomes are not improved. If the patient is asymptomatic, please re-evaluate the need for antibiotic therapy. Radiology Reports (Most Recent Ten) * Exam Date Time Procedure Performing Provider Status 12/10/22 6:17 AM XR Chest 1 View Portable CLARISA Boyd Joshua D; Lucina Notes: (XR Chest 1 View Portable) Reason For Exam: Congestion REPORT XR Chest 1 View Portable INDICATIONS: Congestion: , FINDINGS: A single frontal view of the chest is compared to prior study of December 08, 2022. No pneumothorax is noted. Cardiomegaly is stable. Bilateral lung interstitial and airspace opacities are overall improved. Blunting of the bilateral costophrenic angles is decreased. IMPRESSION: Improvement of alveolar pulmonary edema and/or pneumonia and minimal bilateral pleural effusions. Final Signed by: MD Loyola Bennett Signed (Electronic Signature): 12/10/2022 9:21 am Transcribed by: MARCY * Exam Date Time Procedure Performing Provider Status 12/08/22 5:50 AM XR Chest 1 View Portable Karla Maldonado; Auth (Verified) Notes: (XR Chest 1 View Portable) Reason For Exam: Hypoxia REPORT XR Chest 1 View Portable HISTORY: Hypoxia: , COMPARISON: 12/07/2022 IMPRESSION: Progressive bilateral pulmonary opacities with underlying effusions. Heart appears borderline prominent. Endotracheal tube and transesophageal tube of removed uneventfully. Left IJ introducer remains in situ. Grossly the osseous structures are similar the prior exam. Final Signed by: MD Parikh Francis R Signed (Electronic Signature): 12/08/2022 7:33 am Transcribed by: FANNIE * Exam Date Time Procedure Performing Provider Status 12/07/22 4:29 AM XR Chest 1 View Portable Cuca Drake ; Auth (Verified) Notes: (XR Chest 1 View Portable) Reason For Exam: Pneumonia REPORT XR Chest 1 View Portable HISTORY: Pneumonia: , COMPARISON: 12/06/2022 IMPRESSION: Progressive interstitial opacities. Dominant right side. Follow-through resolution. Correlate clinically. No leland cardiomegaly. Heart shifted to the right concordant with degree rotation of patient.Soft tissues, osseous structures, and indwelling support lines and tubes appear stable. Final Signed by: MD Parikh Francis R Signed (Electronic Signature): 12/07/2022 8:35 am Transcribed by: FANNIE * Exam Date Time Procedure Performing Provider Status 12/06/22 4:33 PM XR Abdomen KUB 1 View Cee, METAL ANNEALER, Cristina; Auth (Verified) Notes: (XR Abdomen KUB 1 View) Reason For Exam: Line placement REPORT XR Abdomen KUB 1 View INDICATION: Line placement: , COMPARISON: None FINDINGS: NG tube is noted in the stomach IMPRESSION: As above Final Signed by: MD Carpenter Aaron J Signed (Electronic Signature): 12/06/2022 4:35 pm Transcribed by: AJB * Exam Date Time Procedure Performing Provider Status 12/06/22 11:28 AM XR Chest 1 View Portable Cee, C RT, Cristina; Auth (Verified) Notes: (XR Chest 1 View Portable) Reason For Exam: Line placement REPORT XR Chest 1 View Portable INDICATION: Dyspnea COMPARISON: Same day IMPRESSION: A single frontal x-ray of the chest was performed and reveals the following: Since the prior study there is a new left central line with the tip probably in the left brachiocephalic vein. Correlation suggested. Otherwise The pertinent lines and/or tubes remain unchanged in position when compared with the prior study. Diffuse mild opacity persists unchanged without pneumothorax Final Signed by: MD Carpenter Aaron J Signed (Electronic Signature): 12/06/2022 11:31 am Transcribed by: AJB * Exam Date Time Procedure Performing Provider Status 12/06/22 7:35 AM XR Chest 1 View Portable Karla Maldonado; Auth (Verified) Notes: (XR Chest 1 View Portable) Reason For Exam: ET tube placement REPORT XR Chest 1 View Portable INDICATION: ET tube placement: , COMPARISON: 12/06/2022 IMPRESSION:No pneumothorax. Bilateral infrahilar atelectasis/infiltrates. Cardiomediastinal silhouette is within normal limits. Supporting tubes are unchanged. Final Signed by: MD Anthony Francisco Signed (Electronic Signature): 12/06/2022 2:24 pm Transcribed by: ALEXI * Exam Date Time Procedure Performing Provider Status 12/06/22 3:[address] Brain/Head w/o Contrast Fan Franklin , CLARISA, Tyron; Auth (Verified) Notes: (CT Brain/Head w/o Contrast) Radiation Dose Estimate: CTDI(mGy) DLP(mGy-cm) Body Part Effective Dose(mSv) 45.7000 1008.9000 Head 2.1187 Total Effective Dose: 2.760088 mSv (CT Brain/Head w/o Contrast) Reason For Exam: Neuro deficit, acute, stroke suspected REPORT CT Brain/Head w/o Contrast CLINICAL HISTORY: Slurred speech and generalized weakness. Hypotension. TECHNIQUE: CT head performed with multiplane reformats. COMPARISON: None available. FINDINGS: Saenz-white matter differentiation is normal. There is no mass effect or midline shift, intracranial hemorrhage, extra-axial fluid collection or hydrocephalus. The midbrain and brain stem are normal. There is a focal old infarct in the right cerebellar hemisphere. The basal cisterns are patent. No sellar or suprasellar abnormality. There is an old lacunar infarct left caudate head. Thereis generalized cerebral atrophy with commensurate prominence of the cerebral sulci. There are foci of decreased attenuation in the periventricular white matter. There are atherosclerotic calcifications of the cavernous portions of internal carotid arteries. The paranasal sinuses are clear. There is opacification of the left mastoid air cells. There is some fluid in the right mastoid air cells as well. Status post bilateral cataract surgeries. The orbital contents are unremarkable. The calvariumand extra cranial soft tissues appear normal. IMPRESSION: 1. No visible acute intracranial abnormality. 2. Cerebral atrophy. 3. Periventricular and central white matter small vessel ischemic disease. 4. Old lacunar infarct left caudate head. 5. Old focal infarct in the right cerebellar hemisphere. 6. Poor pneumatization of the left mastoid air cells, congenital or secondary to chronic mastoid effusion/mastoiditis. Mild right mastoid effusion/mastoiditis. DLP: 1008.90 mGy-cm. CTDI: 45.70 mGy. Note: All CT scans performed in the [facility] are performed using dose optimization techniques, including automated exposure control, iterative reconstruction, and adjustment of the mA and/or kV according to exam, patient size, and the body part being imaged. Final Signed by: MD Baron Troy K Signed (Electronic Signature): 12/06/2022 7:55 am Transcribed by: OVIDIO * Exam Date Time Procedure Performing Provider Status 12/06/22 4:13 AM 12/06/22 4:13 AM CTA Brain/Head CTA Neck Fan Franklin, CLARISA, Tyron; Fan Franklin, CLARISA, Tyron; Auth (Verified) Auth (Verified) Notes: (CTA Brain/Head) Radiation Dose Estimate: CTDI(mGy) DLP(mGy-cm) Body Part Effective Dose(mSv) 8.3000 318.1000 Head 0.6680 Total Effective Dose: 0.436741 mSv (CTA Brain/Head) Reason For Exam: Neuro deficit, acute, stroke suspected (CTA Neck) Radiation Dose Estimate: CTDI(mGy) DLP(mGy-cm) Body Part Effective Dose(mSv) 8.3000 318.1000 Neck 1.8768 Total Effective Dose: 1.697202 mSv (CTA Neck) Reason For Exam: Neuro deficit, acute, persistent or progressing REPORT CTA Brain/Head, CTA Neck INDICATION: Slurred speech and generalized weakness. Hypotension. TECHNIQUE: Intravenous administration of 96 ml Isovue-[address] head angiogram. Ahelical CTA scan of the head and neck was performed at 0.5mm intervals with 2mm reconstructions in coronal and sagittal planes. Following the examination, 3D and MIP reconstructions were performed rose [employer] 3D workstation. COMPARISON: None FINDINGS: CTA head: The anterior cerebral, middle cerebral and posterior cerebral arteries are normal. The basilar artery and its branches are normal. There are atherosclerotic calcifications of the cavernous portions of internal carotid arteries. The intracranial portions of the vertebral arteries appear normal. CTA neck: There is minimal atherosclerotic plaque at the origin of the right internal carotid artery. No significant atherosclerotic plaque in the right carotid bifurcation, left carotid bifurcation or proximal left internal carotid artery. Normal caliber common carotid and internal carotid arteries. The vertebral arteries demonstrate normal course and caliber. The visualized portions of the brachiocephalic and subclavian arteries are normal. The patient is intubated. There is also a nasogastric tube in place. There is a layering right pleural effusion. There is no lymphadenopathy or mass in the neck. The salivary and thyroid glands are normal. There are scattered mild degenerative changes of the cervical spine. The nasopharynx and oropharynx are normal. There is a retention cyst or polypin the right maxillary sinus with mild mucosal thickening here. IMPRESSION: CTA HEAD: 1. No aneurysm, stenosis or occlusion of the cerebral arterial vasculature. CTA NECK: 1. No aneurysm, stenosis, occlusion or dissection of the arterial vasculature in the neck. 2. Minimal calcified atherosclerotic plaque involving the origin of the right internal carotid artery. 3. Retention cyst or polyp right maxillary sinus along with mild chronic inflammatory changes here. 4. Layering right pleural effusion, incompletely visualized. DLP: 318.10 mGy-cm. CTDI: 8.30 mGy. Note: All CT scans performed in the [facility] are performed using dose optimization techniques, including automated exposure control, iterative reconstruction, and adjustment of the mA and/or kV according to exam, patient size, and the body part being imaged. Final Signed by: MD Baron Troy K Signed (Electronic Signature): 12/06/2022 7:59 am Transcribed by: OVIDIO * Exam Date Time Procedure Performing Provider Status 12/06/22 4:[address] Chest W/ Contrast Fan Franklin CRT, Nicolas; Auth (Verified) Notes: (CT Chest W/ Contrast) Reason For Exam: hypotensive, altered, GI bleed, tenderness to palpation to abdomen (CT Chest W/ Contrast) Radiation Dose Estimate: CTDI(mGy) DLP(mGy-cm) Body Part Effective Dose(mSv) 21.7000 907.6000 Chest 12.7064 Total Effective Dose: 12.303228 mSv REPORT CT Chest W/ Contrast CLINICAL HISTORY: Altered mental status. Generalized weakness. Hypotension. TECHNIQUE: CT chest performed with multiplane reformats. IV contrast: 96 mL of Isovue-370 COMPARISON: None available. FINDINGS: The patient is intubated with the endotracheal tube tip in satisfactory position. Nasogastric tube extending into the abdomen. There are calcified mediastinal lymph nodes. The largest lymph node is anterior to the rolando to the right of midline and measures 2.3 cm x 1.8 cm. There are also small calcified right hilar lymph nodes. There are atherosclerotic calcifications of the thoracic aorta. No aneurysm or dissection. No central pulmonary emboli. There is borderline cardiomegaly. There is no pericardial effusion or hiatal hernia. The thyroid gland, trachea and esophagus are unremarkable. There is a layering right pleural effusion, measuring up to 3.5 cm in thickness. There is adjacent atelec tasis. Borderline vascular congestion is seen. There is a small 8 mm subpleural noncalcified nodulein the left lower lobe. No pneumothoraces. There are mild emphysematous changes in the upper lungs and apices. There are multilevel endplate degenerative changes of the thoracic spine. No lytic or blastic bony lesion is seen. The soft tissues are unremarkable. IMPRESSION: 1. Layering right pleural effusion, measuring up to 3.5 cm in thickness, with adjacent atelectasis. 2. Borderline vascular congestion. 3. 8mm noncalcified indeterminate subpleural nodule in the left lower lobe, possibly a granuloma. 4. Borderline cardiomegaly. 5. Atherosclerotic calcifications of the thoracic aorta. Mitral annulus calcifications are also seen. 6. Calcified mediastinal lymph nodes, largest one measuring 2.3 cm x 1.8 cm. Could reflect old granulomatous and/or/or fungal infection versus treated lymphoma. Favor the former, given small calcified right hilar lymph nodes and 6 mm calcified granuloma in the right lower lobe. DLP: 907.60 mGy-cm. CTDI: 21.70 mGy. Note: All CT scans performed in the [facility] are performed using dose optimization techniques, including automated exposure control, iterative reconstruction, and adjustment of the mA and/or kV according to exam, patient size, and the body part being imaged. Final Signed by: MD Baron Troy K Signed (Electronic Signature): 12/06/2022 8:03 am Transcribed by: OVIDIO * Exam Date Time Procedure Performing Provider Status 12/06/22 3:55 AM CTA Abdomen and Pelvis BOYD Chavira Jr, Nicolas; Auth (Verified) Notes: (CTA Abdomen and Pelvis) Radiation Dose Estimate: CTDI(mGy) DLP(mGy-cm) Body Part Effective Dose(mSv) 8.8000 568.7000 Abdomen 8.5305 Total Effective Dose: 8.188339 mSv (CTA Abdomen and Pelvis) Reason For Exam: hypotensive, altered, GI bleed, tenderness to palpation to abdomen REPORT CTA Abdomen and Pelvis CLINICAL HISTORY: Hypotension. Bloody stool. Generalized weakness. TECHNIQUE: CT angiogram of the abdomen and pelvis was performed with multiplane reformats. IV contrast: 96 mL of Isovue-370 Oral contrast: None. COMPARISON: None available. FINDINGS: There are atherosclerotic calcination the claudio of the abdominal aorta, without aneurysm or dissection. There are also atherosclerotic calcifications of the common iliac and external iliac arteries, with variable at least mild stenosis. There are atherogenic calcifications of the common femoral and proximal superficial femoral arteries, with variable mild to moderate stenosis. The celiac artery is widely patent. There is moderate stenosis of the origin of the superior mesenteric artery secondary to calcified atherosclerotic plaque. Small caliber right and left renal arteries. The right renal artery appears widely patent. There is perhaps mild stenosis left renal artery origin. Widely patent inferior mesenteric artery. The liver, gallbladder, pancreas and adrenal glands are normal. There are calcified granulomas in the spleen. No hydronephrosis or renal masses. Small nonobstructing calculus in the lower pole the right kidney. There is nonspecific mild stranding of the perinephric fat. No retroperitoneal or mesenteric lymphadenopathy. There is no free air or free fluid. The small bowel is normal. No GI tract obstruction is identified. The appendix is normal. There is moderate to moderately large stool burden in the colon with fecal distention of the rectum. There is fluid in the cecum and proximal ascending colon. No significant colonic wall thickening. There is a Nash catheter in the decompressed urinary bladder. There is gas in the anterior bladder lumen, probablyfrom Nash instrumentation. There is a fat-containing umbilical hernia. There are age-appropriate degenerative changes of the thoracic and lumbar spine. The soft tissues appear normal. IMPRESSION: 1. Moderately large stool burden in the colon. There is small amount of fluid in the right right colon. Mild fecal distention of the rectum. Query constipation/obstipation. No colonic wall thickeningis seen. 2. No small bowel obstruction. 3. Normal appendix. 4. Nash catheter in the decompressed urinary bladder. 5. Calcified granulomas in the spleen. 6. Punctate nonobstructing calcification in the right kidney. 7. Atherosclerotic calcifications of the abdominal aorta, common iliac arteries, external iliac arteries, common femoral arteries and proximal superficial femoral arteries, with variable mild to moderate stenosis. 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 Mild stenosis of the origin left renal artery is suggested. DLP: 568.70 mGy-cm. CTDI: 8.80 mGy. Note: All CT scans performed in the [facility] are performed using dose optimization techniques, including automated exposure control, iterative reconstruction, and adjustment of the mA and/or kV according to exam, patient size, and the body part being imaged. Final Signed by: MD Baron Troy K Signed (Electronic Signature): 12/06/2022 8:15 am Transcribed by: TKB Vital Signs Most recent to oldest [Reference Range]: 1 2 3 Advance Directive Surrogate No (12/09/22 1:36 PM) No (12/09/22 1:35 PM) No (12/07/22 9:41 AM) Temperature Oral [35.8-37.9 Deg C] 36.3 Deg C (12/12/22 6:38 AM) 36.3 Deg C (12/10/22 4:07 PM) 36.5 Deg C (12/10/22 7:17 AM) Temperature Rectal [36.3-37.9 Deg C] 35.6 Deg C *LOW* (12/06/22 2:48 AM) Temperature Bladder [36-37.9 Deg C] 36.7 Deg C (12/08/22 3:00 PM) 36.7 Deg C (12/08/22 10:30 AM) Temperature Bladder [36.0-38.0 Deg C] 37.5 Deg C (12/07/22 12:04 PM) Temperature Temporal Artery [36.3-37.9 Deg C] 36.4 Deg C (12/12/22 11:15 AM) 36.2 Deg C *LOW* (12/12/22 3:54 AM) 36.6 Deg C (12/11/22 11:33 PM) Peripheral Pulse Rate [60-100 bpm] 106 bpm *HI* (12/09/22 8:07 AM) 114 bpm *HI* (12/08/22 5:00 PM) 88 bpm (12/08/22 4:00 PM) Heart Rate Monitored [50-100 bpm] 104 bpm *HI* (12/12/22 11:15 AM) 102 bpm *HI* (12/12/22 6:38 AM) 92 bpm (12/12/22 3:57 AM) Respiratory Rate [14-20 br/min] 18 br/min (12/12/22 11:15 AM) 16 br/min (12/12/22 3:54 AM) 18 br/min (12/11/22 11:33 PM) Blood Pressure [90-140/60-90 mmHg] 113/72mmHg (12/12/22 11:14 AM) 128/72mmHg (12/12/22 7:37 AM) 128/72mmHg (12/12/22 7:37 AM) Mean Arterial Pressure, Monitor 81 mmHg (12/09/22 8:07 AM) 88 mmHg (12/08/22 5:00 PM) 100 mmHg (12/08/22 4:00 PM) Mean Arterial Pressure, Cuff 85 mmHg (12/12/22 11:14 AM) 91 mmHg (12/12/22 6:38 AM) 90 mmHg (12/12/22 3:55 AM) Blood Pressure Invasive [90-140/60-90] 146/62 *HI* (12/08/22 4:00 PM) 112/46 (12/08/22 3:00 PM) 124/54 (12/08/22 2:00 PM) Mean Arterial Pressure, Invasive [65-140 mmHg] 96 mmHg (12/08/22 4:00 PM) 69 mmHg (12/08/22 3:00 PM) 80 mmHg (12/08/22 2:00 PM) Blood Pressure Location Right arm (12/12/22 11:15 AM) Right arm (12/12/22 3:54 AM) Left arm (12/11/22 11:33 PM) Blood Pressure Method Automatic (12/12/22 11:15 AM) Automatic (12/12/22 3:54 AM) Automatic (12/11/22 11:33 PM) Urine Output Greater than 30mL/hr Yes (12/11/22 6:59 PM) Yes (12/09/22 7:02 PM) Yes (12/08/22 5:00 PM) Level of Consciousness SOV Alert/Calm (12/12/22 7:00 AM) Alert/Calm (12/11/22 6:59 PM) Alert/Calm (12/11/22 7:30 AM) Additional Information Vital Signs Gave report to SABRINA Laurent, for handoff, ok to leave [facility]. (12/08/22 5:26 PM) Manual cuff and arterial line no longer correlating. As per Dr. Lanza, titrate pressors to manual cuff readings. (12/07/22 10:15 AM) took over care of patient from [facility] (12/06/22 11:04 AM) Peripheral Pulse Rate Begin 102 (12/11/22 11:05 AM) SpO2 Begin 100 (12/11/22 11:05 AM) Oxygen Flow Rate Begin 3 (12/11/22 11:05 AM) Peripheral Pulse Rate with Activity 123 bpm (12/11/22 11:05 AM) 138 bpm (12/09/22 10:24 AM) BP Position w Activity Sitting (12/09/22 10:24 AM) Vital Signs w/ Activity Additional Info With donning pants, 91%, 86% with walking (12/11/22 11:05 AM) on 2L/min (12/09/22 10:24 AM) Peripheral Pulse Rate end 120 bpm (12/09/22 10:24 AM) BP Position end Sitting (12/09/22 10:24 AM) O2 Saturation end 92 % (12/09/22 10:24 AM) Additional Information end on 3L/min (12/09/22 10:24 AM) Social History Social History Type Response Smoking Status Current every day heidy mathew entered on: 12/12/22 Sex Hospital Discharge Instructions Follow Up Care 12/06/2022 02:25:04 With:Sophia, PCP Unknown Address: When:1 to 2 weeks Discharge summary * MD Braulio, Kimi H: MODIFY, MODIFY, MODIFY, MODIFY, MODIFY, MODIFY, MODIFY, PERFORM, MODIFY Event Display: Discharge Summary Authored Date: Primary Care Provider Sophia, PCP Unknown Dates of Service 12/06/22-12/12/22 Discharge Diagnoses ZIGGY (acute kidney injury)??(N17.9: Acute kidney failure, unspecified) Altered mental status??(R41.82: Altered mental status, unspecified) Anemia??(D64.9: Anemia, unspecified) Chronic diastolic CHF (congestive heart failure)??(I50.32: Chronic diastolic (congestive) heart failure) Chronic obstructive pulmonary disease??(J44.9: Chronic obstructive pulmonary disease, unspecified) Complicated UTI (urinary tract infection)??(N39.0: Urinary tract infection, site not specified) GI bleed??(K92.2: Gastrointestinal hemorrhage, unspecified) Hemorrhagic shock??(R57.8: Other shock) Hypertension??(I10: Essential (primary) hypertension) Indwelling Nash catheter present??(Z97.8: Presence of other specified devices) Lactic acidosis,??(E87.20: Acidosis, unspecified)Metabolic acidosis On mechanically assisted ventilation??(Z99.11: Dependence on respirator [ventilator] status) Prediabetes??(R73.03: Prediabetes) Pyelonephritis??(N12: Tubulo-interstitial nephritis, not specified as acute or chronic) Procedures EGD Post-procedure Diagnosis:??Possible short segment??Caro's esophagus??in the??distal esophagus Irregular Z-line Large amount??of food??debris in??the fundus??and body of??the stomach??seen on??retroflexion and??antegrade view the distal??body of??the stomach??and antrum??was??mostly visible??and appeared??normal except??forsmall amounts of??food debris??and gastritis Pylorus appeared normal Normal duodenal mucosa seen in first and second portion of duodenum??mildly limited visualization by food debris No evidence of recent bleeding seen.?? Old blood mixed with food was present in the proximal stomach. Consults GI Studies TTE: Summary: 1. Left ventricular ejection fraction, by visual estimation, is 60 to 65%. 2. Normal global left ventricular systolic function. 3. Low normal RV systolic function. 4. Severely dilated left atrium. 5. Mildly dilated right atrium. 6. Mild mitral valve regurgitation. 7. Moderate mitral annular calcification. 8. Moderate mitral stenosis. 9. Moderate thickening of the anterior and posterior mitral valve leaflets. 10. Mild tricuspid regurgitation. 11. Mild to moderate aortic valve stenosis. 12. Trivial aortic regurgitation.13. Spectral Doppler shows grade II pattern of LV diastolic dysfunction ?? REPORT XR Chest 1 View Portable ?? INDICATIONS: ??Congestion: , ?? FINDINGS: ??A single frontal view of the chest is compared to prior study of December 08, 2022. No pneumothorax is noted. Cardiomegaly is stable. Bilateral lung interstitial and airspace opacities areoverall improved. Blunting of the bilateral costophrenic angles is decreased. ?? IMPRESSION: ?? Improvement of alveolar pulmonary edema and/or pneumonia and minimal bilateral pleural effusions. ?? 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 ICA stenosis s/p L. endarterectomy w/o defeicits who was BIBA due to altered mental status, worsening generalized weakness, slurred speech, and black tarry, bloody stool. Per family, patient had been experiencing generalized weakness for 1 week with worsening last night. Slurred speech started approximately 1:30 AM and became unresponsive at 2:00 AM. Family reports that patient has been hypotensive the past couple of days, with his baseline near 120s/80s. Pt family reported patient was complaining of recent vision changes with mild??headache. Pt had been having worsening SOB over the past couple of days as well. Family denied patient having dark tarry stool or diarrhea, but EMS found patient sitting on bucket with dark watery bloody stool. Pt family denies history of ulcers, liver cirrhosis, alcohol use, past EGD/GI bleed,??nausea, vomiting, diarrhea, abdominal pain, fever, chills.?Per EMS, upon arrival??patient was GCS 5 initially and hypotensive with SBP in 80s. Patient was fluid resuscitated with improvement of GCS to 13. Per ED report,??upon arrival to ED, patient remained GCS 8-9 and was eventually??intubated for airway protection. Patient also given 3 units pRBC in EDgiven Hgb of 5.6 and gross melena. Initial labs revealed acidosis with??pH of 7.22 and??lactic acidof 15 on VBG.??Initial bicarb level of 16.6 with elevated anion gap of 27.??CBC showed leukocytosisof 17??and??significantly low??Hgb of 5.6. BUN 35??and creatinine 1.71, indicative of ZIGGY likely??prerenal due to??hypoperfusion??secondary??to??acute GI bleed.??Normal LFTs with no history of cirrhosis. Patient was treated with Protonix empirically. UA with pyuria (WBC 87) and hematuria (RBC 101).??ED also??initiated further workup for suspected sepsis and gave Vanc and Zosyn empirically. Strokeactivation was also called in the ED given history of CVA and slurring of speech but patient was deemed not a candidate for tPA given active upper GI bleed. CT Head was ordered along with CTA??Head and Neck??which showed no acute intracranial hemorrhage, large vessel occlusion, stenosis, dissection. CXR showed small pleural effusion. CT??Chest??ordered which showed??R. sided??pleural effusion. CTA Abdomen/Pelvis was ordered in ED due to concern for mesenteric ischemia but did not identify any acute intraabdominal processes. At this point, patient remained hypotensive and was started on Levophed. Given his intubation status and hemodynamic instability from acute upper GI bleed, patient was admitted to ICU. Hospital Course Patient was admitted to ICU for acute GI bleed. GI was consulted and EGD was performed which had gastric contents, unable to visualize a bleed. Repeat EGD was performed on 12/07 which showed no visual bleeding or ulcers in distal stomach or duodenum. Patient was continued on IV protonix BID and wasable to be extubated. Following extubation he became agitated requiring precedex drip for 24 hrs. His agitation and delirium resolved and he was downgraded to med/surg. He was noted to have pneumoniaand sputum culture grew serratia and biofire was positive for H influenza. He completed course of IV ceftriaxone with improvement in his respiratory status. He was also noted to have pleural effusions which improved with diuresis.??His chronic indwelling?? nash catheter was exchanged and urine culture grew proteus and he completed antibiotic course. His home antiplatelets and anticoagulation were held in setting of GI bleed and his hemoglobin remained stable. He was weaned down to his baselineoxygen. He was counseled on smoking cessation. He was evaluated by PT and OT who recommended SNF however patient refused to go to SNF. He was alert and oriented and able to make medical decisions. Hewas ordered home health and advised to follow up with his PCP within 1-2 weeks. He was agreeable with this plan and was discharged to home with home health in stable condition. Physical Exam Vitals & Measurements T:??36.4?C (Temporal Artery)?? TMIN:??36.2?C (Temporal Artery)?? TMAX:??36.6?C (Temporal Artery)?? HR:??104(Monitored)?? RR:??18?? BP:??113/72?? SpO2:??97%?? General: [Alert, awake, no acute distress]. Eye: [EOMI, normal conjunctiva]. HENT: [Normocephalic, normal hearing, no scleral icterus]. Lungs: [Non labored respirations,??diminished at bases,??2L of NC]. Heart: [Normal rate, regular rhythm, no murmur, gallop or edema]. Abdomen: [Soft, non-tender, non-distended]. Skin: [Skin is warm, dry and pink, no rashes or lesions]. Neurologic: [Awake, alert, and oriented X1]. Psychiatric: [Cooperative, appropriate mood and affect]. Circulatory: [No LE edema bilaterally] Follow Up Labs/Studies No qualifying data available. No qualifying data available. Discharge Medications Home Advair Diskus 250 mcg-50 mcg inhalation powder, 1 puffs, Inhale, BID RT,?Still taking, not as prescribed: last 07/2022 @[facility] albuterol 90 mcg/inh inhalation aerosol, 1 puffs, Inhale, every 6 hr, PRN docusate-senna 50 mg-8.6 mg oral tablet, 1 tab, Oral, BID, PRN FeroSul 325 mg (65 mg elemental iron) oral tablet, 325 mg= 1 tab, Oral, Mon/Wed/Fri Fish Oil 1000 mg oral capsule, 1000 mg= 1 cap, Oral, Daily Flomax 0.4 mg oral capsule, 0.8 mg= 2 cap, Oral, Daily Lipitor 80 mg oral tablet, 80 mg= 1 tab, Oral, Daily metFORMIN 500 mg oral tablet, extended release, 500 mg= 1 tab, Oral, Daily metoprolol succinate 200 mg oral tablet, extended release, 100 mg= 0.5 tab, Oral, Daily,?Still taking, not as prescribed: last 05/2022 @[facility] Proscar 5 mg oral tablet, 5 mg= 1 tab, Oral, Daily,?Unable to obtain: last 04/2022 @[facility] Protonix 40 mg oral delayed release tablet, 40 mg= 1 tab, Oral, BID Spiriva 18 mcg inhalation capsule, 18 mcg= 1 cap, Inhale, Daily,?Still taking, not as prescribed: last 07/2022 @[facility] traMADol 50 mg oral tablet, 50 mg= 1 tab, Oral, every 12 hr Vitamin D3 1000 intl units oral tablet, 25 mcg= 1 tab, Oral, Daily Pending Labs and Studies None Condition on Discharge Stable Discharge Disposition Home with family Diet Cardiac/diabetic Activity Restrictions AAT Product Manager Services Utilized [_] Phone [_] Skype [_] Face to Face Electronically Signed on 12/12/22 03:28 PM MD Braulio, Kimi Jensen Nutrition and dietetics Note * Fidelia Lawrence: MODIFY, MODIFY, MODIFY, PERFORM, MODIFY Event Display: Nutrition Note Authored Date: Nutrition Note - High Nutrition Risk Follow Up ?? High nutrition??risk follow up for pt with moderate malnutrition dx (NFPE completed by RD on 12/09).??Pt admitted with altered mental status, worsening generalized weakness, slurred speech, and blacktarry, bloody stool. 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 Pt had been intubated, then extubated on 12/07.??Pt had EGD on 12/07,??no visual bleeding or ulcers seen. NGT and rectal tube have been discontinued. Wt trend overall increased since admit, question accuracy due to bed scales and pt with net negative I&O. Pt was advanced from clearliquid to full liquid diet. Pt now advanced to soft/bland diet (starting today with dinner).??Pt had been consuming average 83% on the full liquid diet, which was suboptimal for meeting estimated nutrient needs. Current soft/bland diet is appropriate for meeting calorie and protein needs. Noted perprevious nutrition note pt had declined oral nutrition supplements.? Spoke with pt at bedside. Pt??spoke??softly/mumbled, was difficult to understand at times. Pt reports his appetite is fine but??he is tired of hospital food. Noted?? has now ordered upgrade to soft/bland diet which will start with dinner, encouraged pt to eat meals as able.??Pt seemed focused on wanting to go home,??stated he might??go home tonight or tomorrow. Encouraged??pt to eat well for however long he is here.??Will continue to follow pt as??high nutrition risk to monitor PO intake trend now that diet has advanced.? Labs reviewed. K was??repleted. MAR medications reviewed: atorvastatin, ceftriaxone, lasix. Skin: Intact. No pressure injuries noted. GI: No N/V, diarrhea or constipation noted at this time per chart. Last BM 12/09. Edema: None noted. Net I&O since admit: -5057mL ?? Diagnosis Moderate malnutrition r/t inadequate energy intake in the context of chronic disease (COPD) as evidenced by mild loss of subcutaneous fat loss (orbital/triceps), mild muscle wasting (mormon/clavicle/dorsal hand), and reported weight loss of 40 lbs in over a year. (12/09 active, ongoing) Inadequate protein/energy intake related to GI dysfunction as evidenced by pt not yet meeting estimated nutritional needs 2/2 on liquid diet previously, now with orders for soft/bland.?? (12/08 active revised, ongoing) ?? Recommendations 1.??Continue soft/bland diet per order. Advance to goal diet of regular as medically able.?? Lab Results Test Name Test Result Date/Time CommentsSodium Level 142.0 mmol/L 12/11/2022 05:04 PDT Potassium Level 2.7 mmol/L (Critical) 12/11/2022 05:04 PDT Critical value called to and read back by Margo Torres RN 2N at 12/11/2022 05:53:07 PDT by LUIS F/RA. Glucose Level 133 mg/dL (High) 12/11/2022 05:04 PDT Magnesium 1.8 mg/dL 12/11/2022 05:04 PDT Phosphorus Lvl 3.2 mg/dL 12/11/2022 05:04 PDT Electronically Signed on 12/11/22 03:19 PM Fidelia Lawrence Jeanne L.: PERFORM Event Display: Nutrition Note Authored Date: [id number] Nutrition Note: ?? Nutrition Focused Physical Exam scheduled for this patient - sitting up at his bedside and agreeable to participate.?? Results as follows: ?? Adipose Stores Orbital Region: mild Buccal Region: normal Triceps Region: mild Midaxillary Region: Unable to observe due to positioning of patient ?? Lean Body Mass Stores Temporal Region: mild Clavicle Region: mild Deltoid Muscle Region: normal Scapula Region: normal Dorsal Hand Region: mild Thigh/Patellar Region: normal Calf Region: normal ?? Patient identified with 9.4% weight loss on admit (87.8 kg??in April to 79.5 kg on 12/07).?? Reweighed today with questionable gain of 9.2 kg (cumulative I/O - 2102 ml) or weight of 79.5 kg may not be accurate, however noted??weight of 80 kg on 12/08.?? Patient does endorse weight loss and describes it as 40 lbs in over a year .?[employer] form for malnutrition assessment completed withoutweight loss criteria.?? Results of nutrition focused physical exam used to complete form with criteria met for moderate malnutrition. ?? Nutrition Diagnosis: ?? Moderate malnutrition r/t inadequate energy intake in the context of chronic disease (COPD) as evidenced by mild loss of subcutaneous fat loss (orbital/triceps), mild muscle wasting (mormon/clavicle/dorsal hand), and reported weight loss of 40 lbs in over a year. ?? Patient just advanced from Clear Liquids to Full Liquids - he declines any offer of supplements - stating I will not drink any sweets .?? Patient being followed as high risk with f/u 12/11/22 ?? Electronically Signed on 12/09/22 03:29 PM Mavis Olson. * PROSPER Bardales, Terri: PERFORM Event Display: Nutrition Note Authored Date: [id number] Nutrition Recommendations 1. Advance diet as medically able to goal of regular diet. -- May consider diabetic diet restriction should the patient require tighter glycemic control Nutrition Risk Level Nutrition Risk: High (12/08/22) Assessment No qualifying data available. ?? RD consult ordered for selection of unable to assess on nutrition screen.?? 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 Pt was intubated on admit, extubated on 12/07. Pt s/p EGD on 12/07 which reveals?? No evidence of recent bleeding seen.?? Old blood mixed with foodwas present in the proximal stomach. See GI note for further details. Pt currently has orders for a clear liquid diet, pending meal trends. Recommend to advance as medically able to goal of regular diet. So far, no chewing/swallowing difficulty noted in pt's chart. N/Vlast documented on 12/07. Last BM on 12/06 via rectal tube which has since been discontinued. Reviewed weight history: pt with possible recent significant weight loss of 9.4% since April 2022 based on documented weight of 87.8 kg. Unable to perform nutrition focused physical exam or clarify weight history with pt at this time but will reattempt at next review.?? Will follow as high nutrition riskpending diet advancement and further p.o. and weight??trends. ?? 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 Nutrition Intake Clear Liquid Diet --pending meal trends ?? D5% at 50 mL/hr provides daily 204 calories/day Nutrition Diagnosis Inadequate protein/energy intake related to GI dysfunction as evidenced by pt not yet meeting estimated nutritional needs 2/2 NPO status previously, now with orders for Clear Liquid Diet. Nutrition Goals Advance diet within the next 24-48 hrs. Meal trends >50% within 5 days. Nutrition Interventions Diet Type: npo (12/07/22) 1. Advance diet as medically able to goal of regular diet. Nutrition Monitoring Diet advancement, meal??intake/tolerance, GI function, labs, weight, I & O, and skin. Anthropometrics Weight Dosin.5 kg (12/07/22) Height/Length Measured: 174 cm (12/08/22) Body Mass Index Measured: 25.6 kg/m2 (12/06/22) [place] Body Weight Calculated: 69.559 kg (12/08/22) Weight Nutrition: 79.5 kg (12/08/22) Reference Weight, Nutrition Description: current weight (12/08/22) Admitting Chief Complaint BIBA from home for slurred speech and generalized weakness on EMS arrival pt sitting on bucket withdark, watery, bloody stool noted in bucket, hypotensive 80s systolic, gcs 13 on arrival, nash present on admission Problem List/Past Medical History Ongoing Chronic diastolic CHF (congestive heart failure) Chronic obstructive pulmonary disease HLD (hyperlipidemia) Hypertension Prediabetes Stenosis of left internal carotid artery Tobacco dependence Historical No qualifying data Social History Alcohol Denies use, 12/01/2021 Electronic Cigarette/Vaping Never, 12/06/2022 Never, 04/17/2022 Tobacco Current every day smoker, Type: Cigarettes. per day 2 packs a day., 12/06/2022 Former smoker, Type: Cigarettes., 04/17/2022 Family History Family history is unknown Allergies No Known Allergies Lab Results H & H is low Hypernatremia noted Hemoglobin A1c of 5.3% is WNL Point of Care Glucose:??118-196 mg/dL x 24 hr - elevated; on dextrose IV fluids Lab Results Test Name Test Result Date/Time CommentsHgb 9.6 g/dL (Low) 12/08/2022 01:29 PDT Sodium Level 147.0 mmol/L (High) 12/08/2022 04:18 PDT Glucose Level 135 mg/dL (High) 12/08/2022 04:18 PDT Hemoglobin A1c 5.3 % 12/06/2022 17:05 PDT INTERPRETIVE INFORMATION: Hemoglobin A1c ?? Hemoglobin A1c values of 5.7 - 6.4 percent indicate an increased risk for developing diabetes mellitus. ??Hemoglobin A1c values greater than or equal to 6.5 percent are diagnostic of diabetes mellitus. ??Diagnosis should be confirmed by repeating the Hb A1c test. This boronate affinity Hb A1c method provides accurate analytical results in the presence of nearlyall hemoglobin variants. ??Hb F higher than 10 percent of total Hb may yield falsely low results. ??Conditions that shorten red cell survival, such as the presence of unstable hemoglobins like Hb SS,Hb CC, and Hb SC, or other causes of hemolytic anemia may yield falsely low results. ??Iron deficiency anemia may yield falsely high results. Medications Inpatient Atrovent 0.02% 500 mcg/2.5 mL solution for nebulization, 500 mcg= 2.5 mL, NEB, every 4 hours. RT cefTRIAXone IVPB, 2 g= 50 mL, IV Piggyback, every 24 hours. chlorhexidine 2% topical pad, 1 izabella, Topical, every evening D5W/LR 1,000 mL, 1000 mL, IV dexmedeTOMIDine additive* 400 mcg [0.4 mcg/kg/hr] + Premix Sodium Chloride 0.9%* 100 mL Dextrose 10% Water Bolus*, 100 to 150 mL, IV Bolus, every 15 min, PRN dextrose 50% Syringe, 12.5 g= 25 mL, IV Push, every 15 min, PRN fentaNYL, 25 mcg= 0.5 mL, IV Push, every 1 hr, PRN glucagon, 1 mg= 1 EA, IM, As Directed, PRN HumaLOG., Per Glucommander, Subcut, every 4 hours. HumaLOG., Per Glucommander, Subcut, As Directed, PRN Lantus, Per Glucommander, Subcut, BID norEPINEPHrine additive* 16 mg [0.01 mcg/kg/min] + Dextrose 5% Water* 250 mL oxyCODONE, 5 mg= 5 mL, Oral, every 4 hours., PRN oxyCODONE, 10 mg= 1 tab, Oral, every 4 hours., PRN Peridex 0.12% mucous membrane liquid, 0.018 g= 15 mL, Mucous Membrane, BID Pharmacy Communication, 1 EA, N/A, As Directed Protonix, 40 mg= 1 EA, Slow IV Push, every 12 hours. Proventil 2.5 mg/3 mL (0.083%) inhalation solution, 2.5 mg= 3 mL, NEB, every 4 hours. RT sodium chloride 0.9% flush, 10 mL, IV Push, every 12 hours. sodium chloride 0.9% flush, 20 mL, IV Push, As Directed, PRN vasopressin additive* 40 units [0.03 unit/min] + Premix Dextrose 5% Water* 100 mL ZyPREXA, 5 mg= 1 tab, Oral, Daily Home Advair Diskus 100 mcg-50 mcg inhalation powder, 1 puffs, Inhale, BID,?Not taking Albuterol (Eqv-Proventil HFA) 90 mcg/inh inhalation aerosol, 2 puffs, Inhale, every 6 hr, PRN aspirin 325 mg oral tablet, 325 mg= 1 tab, Oral, QHS cholecalciferol 1000 intl units oral tablet, 25 mcg= 1 tab, Oral, Daily Fish Oil 1000 mg oral capsule, 1000 mg= 1 cap, Oral, Daily Flomax 0.4 mg oral capsule, 0.4 mg= 1 cap, Oral, Daily Lipitor 80 mg oral tablet, 80 mg= 1 tab, Oral, QHS lisinopril 2.5 mg oral tablet, 2.5 mg= 1 tab, Oral, Daily Metoprolol Succinate ER 25 mg oral tablet, extended release, 25 mg= 1 tab, Oral, Daily Plavix 75 mg oral tablet, 75 mg= 1 tab, Oral, every evening Spiriva 18 mcg inhalation capsule, 18 mcg= 1 cap, Inhale, Daily,?Not taking Comments Reviewed drug/nutrient interactions. Product Manager Services Utilized [_] Phone [_] Skype [_] Face to Face Electronically Signed on 12/08/22 09:29 AM PROSPER Bardales Kelli Progress note * MD Braulio, Kimi Jensen: PERFORM, MODIFY, MODIFY, MODIFY Event Display: Progress Note Generic Authored Date: [id number] HOSPITAL COURSE: Patient is a 77-year-old male with PMH of HTN, CHFpEF (70-75%), HLD, COPD, 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 ICA stenosis s/p L. endarterectomy w/o defeicits who was BIBA due to altered mental status, worsening generalized weakness, slurred speech, and black tarry, bloody stool. Per family, patient had been experiencing generalized weakness for 1 week with worsening last night. Slurred speech started approximately 1:30 AM and became unresponsive at 2:00 AM. Family reports that patient has been hypotensive the past couple of days, with his baseline near 120s/80s. Pt family reported patient was complaining of recent vision changes with mild??headache. Pt had been having worsening SOB over the past couple of days as well. Family denied patient having dark tarry stool or diarrhea, but EMS found patient sitting on bucket with dark watery bloody stool. Pt family denies history of ulcers, liver cirrhosis, alcohol use, past EGD/GI bleed,??nausea, vomiting, diarrhea, abdominal pain, fever, chills.?Per EMS, upon arrival??patient was GCS 5 initially and hypotensive with SBP in 80s. Patient was fluid resuscitated with improvement of GCS to 13. Per ED report,??upon arrival to ED, patient remained GCS 8-9 and was eventually??intubated for airway protection. Patient also given 3 units pRBC in EDgiven Hgb of 5.6 and gross melena. Initial labs revealed acidosis with??pH of 7.22 and??lactic acidof 15 on VBG.??Initial bicarb level of 16.6 with elevated anion gap of 27.??CBC showed leukocytosisof 17??and??significantly low??Hgb of 5.6. BUN 35??and creatinine 1.71, indicative of ZIGGY likely??prerenal due to??hypoperfusion??secondary??to??acute GI bleed.??Normal LFTs with no history of cirrhosis. Patient was treated with Protonix empirically. UA with pyuria (WBC 87) and hematuria (RBC 101).??ED also??initiated further workup for suspected sepsis and gave Vanc and Zosyn empirically. Strokeactivation was also called in the ED given history of CVA and slurring of speech but patient was deemed not a candidate for tPA given active upper GI bleed. CT Head was ordered along with CTA??Head and Neck??which showed no acute intracranial hemorrhage, large vessel occlusion, stenosis, dissection. CXR showed small pleural effusion. CT??Chest??ordered which showed??R. sided??pleural effusion. CTA Abdomen/Pelvis was ordered in ED due to concern for mesenteric ischemia but did not identify any acute intraabdominal processes. At this point, patient remained hypotensive and was started on Levophed. Given his intubation status and hemodynamic instability from acute upper GI bleed, patient was admitted to ICU. ?? 12/06: EGD performed which had gastric contents, unable to visualize a bleed. Repeat EGD tomorrow per GI with Reglan 2x before tomorrow EGD. ?? 12/07: EGD repeated unable to visualize proximal stomach, but otherwise no visual bleeding or ulcers seen in distal stomach nor duodenum. Pt extubated yesterday and on NC. ?? 12/08: Overnight, pt became agitated and zyprexa was given. Pt desaturated and was placed on hi-floNC. This morning, pt stated multiple times he wanted to go back to earth with his family . I repeated to him that he is in the hospital and we will get him home as soon as possible. Pt denied any pain, but reported shortness of breath. No bowel movement overnight. ?? 12/09: assumed care. Calm. No complaints. States he is having trouble breathing which is improving. 12/10: No complaints. Agitation resolved. Reports no shortness of breath. 12/11: No complaints. Potassium 2.7, replaced. Advance??from liquid to??soft diet. ?? SUBJECTIVE: As above PHYSICAL EXAM: Vitals & Measurements T:??36.4?C (Temporal Artery)?? TMIN:??36.3?C (Oral)?? TMAX:??36.7?C (Temporal Artery)??HR:??103(Monitored)?? RR:??22?? BP:??133/76?? SpO2:??96%?? General: [Alert, awake, no acute distress]. Eye: [EOMI, normal conjunctiva]. HENT: [Normocephalic, normal hearing, no scleral icterus]. Lungs: [Non labored respirations, diminished, 2L of NC]. Heart: [Normal rate, regular rhythm, no murmur, gallop or edema]. Abdomen: [Soft, non-tender, non-distended]. Skin: [Skin is warm, dry and pink, no rashes or lesions]. Neurologic: [Awake, alert, and oriented X1]. Psychiatric: [Cooperative, appropriate mood and affect]. Circulatory: [No LE edema bilaterally] ASSESSMENT/PLANS: #Delirium - resolved #Agitation - resolved #Sinus tachycardia - resolved - was on precedex in ICU for 24 hours - continue zyprexa for now ?? #Community acquired PNA 2/2 to serratia and Hflu #History of COPD #History of chronic tobacco use #Bilateral effusions - improving respiratory status - continue IV??ceftriaxone - continue lasix targeting net negative, continue breathing treatments - repeat xray with improvement - pulmonary hygiene ?? #Hypernatremia - resolved - encourage water intake ?? #Acute blood loss anemia #Upper GI bleed with melena, improving - s/p EGD without obvious bleeding - continue holding all antiplatelets and AC - continue monitoring hh and signs of GI bleeding ?? #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 Endarterectomy - holding home asa and plavix 2/2 bleeding ?? #History of A. fib - Takes Eliquis at home. Holding for now given acute upper GI bleed. ?? #Hypotension - multifactorial - resolved ?? #ZIGGY, resolved ?? #UTI with pyuria and hematuria #Chronic indwelling catheter - New nash catheter placed in the ED - Urine cultures grew proteus - continue abx ?? Code Status: Full code as of right now. ??prefers no??advanced life support if prognosis seems poor. dvt ppx: holding due to bleed Next of??Emergency contact:?? (Alondra), Granddaughter (Rafaela)??-??[phone], home phone , Marvin (Son) - Dispo: PT recommended HH vs SNF. Patient does not want to go to SNF and prefers HH. LABS: Labs??(Last four charted values) WBC ?8.36?(DEC 11)?8.92?(OCT 31)?11.39?(OCT 30)?H??14.76?(NOV 29) Hgb ?L??10.8?(DEC 11)?L??11.6?(OCT 31)?L??11.5?(OCT 30)?L??10.5?(OCT 30) Hct ?L??34.6?(DEC 11)?L??36.8?(OCT 31)?L??37.6?(OCT 30)?L??33.6?(OCT 30) Plt ?253?(DEC 11)?248?(OCT 31)?223?(OCT 30)?224?(OCT 29) Na ?142.0?(DEC 11)?H??147.0?(OCT 31)?H??148.0?(OCT 30)?H??147.0?(OCT 29) K ?C??2.7?(DEC 11)?3.7?(OCT 31)?L??3.1?(OCT 30)?3.7?(OCT 29) CO2 ?H??32.5?(NOV 01)?H??34.4?(OCT 31)?H??33.2?(OCT 30)?29.8?(OCT 29) Cr ?0.74?(NOV 01)?0.84?(OCT 31)?0.87?(OCT 30)?0.89?(OCT 29) BUN ?8?(NOV 01)?12?(OCT 31)?20?(OCT 30)?H??29?(OCT 29) Glucose Random ?H??133?(NOV 01)?101?(OCT 31)?82?(OCT 30)?H??135?(OCT 29) PT ?10.4?(OCT 31)?11.3?(OCT 28)?H??14.3?(OCT 27) INR ?0.98?(OCT 31)?1.07?(OCT 28)?H??1.38?(DEC 06) PTT ?26.70?(DEC 10)?26.00?(DEC 07) IMAGING: No qualifying data available. MEDICATIONS: Inpatient albuterol 2.5 mg/3 mL (0.083%) inhalation solution, 2.5 mg= 3 mL, NEB, every 4 hours. RT, PRN Atrovent 0.02% 500 mcg/2.5 mL solution for nebulization, 0.5 mg= 2.5 mL, NEB, every 4 hours. RT, PRN cefTRIAXone IVPB, 2 g= 50 mL, IV Piggyback, every 24 hours. chlorhexidine 2% topical pad, 1 izabella, Topical, every evening cloNIDine, 0.1 mg= 1 tab, Oral, TID hydrALAZINE, 10 mg= 0.5 mL, IV Push, every 4 hours., PRN Lasix, 40 mg= 1 tab, Oral, Daily Lipitor, 40 mg= 2 tab, Oral, QHS nicotine 21 mg/24 hr Patch, 1 patches, Transdermal, Daily oxyCODONE, 5 mg= 5 mL, Oral, every 4 hours., PRN oxyCODONE, 10 mg= 1 tab, Oral, every 4 hours., PRN Protonix, 40 mg= 1 EA, Slow IV Push, every 12 hours. sodium chloride 0.9% flush, 10 mL, IV Push, every 12 hours. sodium chloride 0.9% flush, 20 mL, IV Push, As Directed, PRN ZyPREXA, 5 mg= 1 tab, Oral, Daily Home Advair Diskus 100 mcg-50 mcg inhalation powder, 1 puffs, Inhale, BID,?Not taking Albuterol (Eqv-Proventil HFA) 90 mcg/inh inhalation aerosol, 2 puffs, Inhale, every 6 hr, PRN aspirin 325 mg oral tablet, 325 mg= 1 tab, Oral, QHS cholecalciferol 1000 intl units oral tablet, 25 mcg= 1 tab, Oral, Daily Fish Oil 1000 mg oral capsule, 1000 mg= 1 cap, Oral, Daily Flomax 0.4 mg oral capsule, 0.4 mg= 1 cap, Oral, Daily Lipitor 80 mg oral tablet, 80 mg= 1 tab, Oral, QHS lisinopril 2.5 mg oral tablet, 2.5 mg= 1 tab, Oral, Daily Metoprolol Succinate ER 25 mg oral tablet, extended release, 25 mg= 1 tab, Oral, Daily Plavix 75 mg oral tablet, 75 mg= 1 tab, Oral, every evening Spiriva 18 mcg inhalation capsule, 18 mcg= 1 cap, Inhale, Daily,?Not taking INTAKE AND OUTPUT: ?? This visit (24 hour periods starting at 06:00 PDT)? 12/11/22 *?? 12/10/22?? 12/09/22?? Total Summary?Intake mL?? 560?? 1,270?? 660?Output mL?? 900?? 2,800?? 1,800?Fluid Balance ?? -340?? -1,530?? -1,140?? Intake (4)?Oral Intake mL?? 480?? 1,200?? 600?ceftriaxone mL?? 50?? 50?? 50?potassium chloride mL?? 30?? --?? --?sodium chloride mL?? --?? 20?? 10?Total?? 560?? 1,270?? 660?? Output (1)?Urethral Indwelling/Continuous 16 Fr mL?? 900?? 2,800?? 1,800?Total?? 900?? 2,800?? 1,800?? Counts (3)?Oral Intake mL?? 480?? 1,200?? 600?Stool Count ?? --?? 1?? 2?Urinary Catheter Output: mL?? 900?? 2,800?? 1,800? * This column has not completed the indicated time period.?? 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 ICA stenosis s/p L. endarterectomy w/o defeicits who was BIBA due to altered mental status, worsening generalized weakness, slurred speech, and black tarry, bloody stool. Per family, patient had been experiencing generalized weakness for 1 week with worsening last night. Slurred speech started approximately 1:30 AM and became unresponsive at 2:00 AM. Family reports that patient has been hypotensive the past couple of days, with his baseline near 120s/80s. Pt family reported patient was complaining of recent vision changes with mild??headache. Pt had been having worsening SOB over the past couple of days as well. Family denied patient having dark tarry stool or diarrhea, but EMS found patient sitting on bucket with dark watery bloody stool. Pt family denies history of ulcers, liver cirrhosis, alcohol use, past EGD/GI bleed,??nausea, vomiting, diarrhea, abdominal pain, fever, chills.?Per EMS, upon arrival??patient was GCS 5 initially and hypotensive with SBP in 80s. Patient was fluid resuscitated with improvement of GCS to 13. Per ED report,??upon arrival to ED, patient remained GCS 8-9 and was eventually??intubated for airway protection. Patient also given 3 units pRBC in EDgiven Hgb of 5.6 and gross melena. Initial labs revealed acidosis with??pH of 7.22 and??lactic acidof 15 on VBG.??Initial bicarb level of 16.6 with elevated anion gap of 27.??CBC showed leukocytosisof 17??and??significantly low??Hgb of 5.6. BUN 35??and creatinine 1.71, indicative of ZIGGY likely??prerenal due to??hypoperfusion??secondary??to??acute GI bleed.??Normal LFTs with no history of cirrhosis. Patient was treated with Protonix empirically. UA with pyuria (WBC 87) and hematuria (RBC 101).??ED also??initiated further workup for suspected sepsis and gave Vanc and Zosyn empirically. Strokeactivation was also called in the ED given history of CVA and slurring of speech but patient was deemed not a candidate for tPA given active upper GI bleed. CT Head was ordered along with CTA??Head and Neck??which showed no acute intracranial hemorrhage, large vessel occlusion, stenosis, dissection. CXR showed small pleural effusion. CT??Chest??ordered which showed??R. sided??pleural effusion. CTA Abdomen/Pelvis was ordered in ED due to concern for mesenteric ischemia but did not identify any acute intraabdominal processes. At this point, patient remained hypotensive and was started on Levophed. Given his intubation status and hemodynamic instability from acute upper GI bleed, patient was admitted to ICU. ?? 12/06: EGD performed which had gastric contents, unable to visualize a bleed. Repeat EGD tomorrow per GI with Reglan 2x before tomorrow EGD. ?? 12/07: EGD repeated unable to visualize proximal stomach, but otherwise no visual bleeding or ulcers seen in distal stomach nor duodenum. Pt extubated yesterday and on NC. ?? 12/08: Overnight, pt became agitated and zyprexa was given. Pt desaturated and was placed on hi-floNC. This morning, pt stated multiple times he wanted to go back to earth with his family . I repeated to him that he is in the hospital and we will get him home as soon as possible. Pt denied any pain, but reported shortness of breath. No bowel movement overnight. ?? 12/09: assumed care. Calm. No complaints. States he is having trouble breathing which is improving. 12/10: No complaints. Agitation resolved. Reports no shortness of breath. SUBJECTIVE: Patient denies shortness of breath, chest pain, or any other complaints. PHYSICAL EXAM: Vitals & Measurements T:??36.6?C (Temporal Artery)?? TMIN:??36.3?C (Temporal Artery)?? TMAX:??37.1?C (Temporal Artery)?? HR:??85(Monitored)?? RR:??20?? BP:??127/77?? SpO2:??93%?? WT:??87.600??kg?? General: [Alert, awake, no acute distress]. Eye: [EOMI, normal conjunctiva]. HENT: [Normocephalic, normal hearing, no scleral icterus]. Lungs: [Non labored respirations, diminished, 2L of NC]. Heart: [Normal rate, regular rhythm, no murmur, gallop or edema]. Abdomen: [Soft, non-tender, non-distended]. Skin: [Skin is warm, dry and pink, no rashes or lesions]. Neurologic: [Awake, alert, and oriented X1]. Psychiatric: [Cooperative, appropriate mood and affect]. Circulatory: [No LE edema bilaterally] ASSESSMENT/PLANS: #Delirium - resolved #Agitation - resolved #Sinus tachycardia - resolved - was on precedex in ICU for 24 hours - continue zyprexa for now ?? #Community acquired PNA 2/2 to serratia and Hflu #History of COPD #History of chronic tobacco use #Bilateral effusions - improving respiratory status - continue IV??ceftriaxone - continue lasix targeting net negative - repeat xray with improvement - pulmonary hygiene ?? #Hypernatremia - improving - encourage water intake - continue d5w fluids ?? #Acute blood loss anemia #Upper GI bleed with melena, improving - s/p EGD without obvious bleeding - continue holding all antiplatelets and AC - continue monitoring hh and signs of GI bleeding ?? #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 Endarterectomy - holding home asa and plavix 2/2 bleeding ?? #History of A. fib - Takes Eliquis at home. Holding for now given acute upper GI bleed. ?? #Hypotension - multifactorial - resolved ?? #ZIGGY, resolved ?? #UTI with pyuria and hematuria #Chronic indwelling catheter - New nash catheter placed in the ED - Urine cultures grew proteus - continue abx ?? Code Status: Full code as of right now. ??prefers no??advanced life support if prognosis seems poor. dvt ppx: holding due to bleed Next of??Emergency contact:?? (Alondra), Granddaughter (Rafaela)??-??[phone], home phone , Marvin (Son) - Dispo: PT recommended HH vs SNF LABS: Labs??(Last four charted values) WBC ?8.92?(OCT 31)?11.39?(OCT 30)?H??14.76?(OCT 29)?H??20.16?(OCT 28) Hgb ?L??11.6?(OCT 31)?L??11.5?(OCT 30)?L??10.5?(OCT 30)?L??10.5?(OCT 29) Hct ?L??36.8?(OCT 31)?L??37.6?(OCT 30)?L??33.6?(OCT 30)?L??32.6?(OCT 29) Plt ?248?(OCT 31)?223?(OCT 30)?224?(OCT 29)?248?(OCT 28) Na ?H??147.0?(OCT 31)?H??148.0?(OCT 30)?H??147.0?(OCT 29)?141.0?(OCT 28) K ?3.7?(OCT 31)?L??3.1?(OCT 30)?3.7?(OCT 29)?3.9?(OCT28) CO2 ?H??34.4?(OCT 31)?H??33.2?(OCT 30)?29.8?(OCT 29)?26.9?(OCT 28) Cr ?0.84?(OCT 31)?0.87?(OCT 30)?0.89?(OCT 29)?H??1.40?(OCT 28) BUN ?12?(OCT 31)?20?(OCT 30)?H??29?(OCT 29)?H??44?(OCT 28) Glucose Random ?101?(OCT 31)?82?(OCT 30)?H??135?(OCT 29)?H??173?(OCT 28) PT ?11.3?(OCT 28)?H??14.3?(OCT 27) INR ?1.07?(DEC 07)?H??1.38?(DEC 06) PTT ?26.00?(DEC 07) IMAGING: XR Chest 1 View Portable ?? 12/10/22 06:17:17 IMPRESSION: ?? Improvement of alveolar pulmonary edema and/or pneumonia and minimal bilateral pleural effusions. ?? Signed By: MD Loyola Bennett MEDICATIONS: Inpatient cefTRIAXone IVPB, 2 g= 50 mL, IV Piggyback, every 24 hours. chlorhexidine 2% topical pad, 1 izabella, Topical, every evening cloNIDine, 0.1 mg= 1 tab, Oral, TID Dextrose 5% Water 1,000 mL, 1000 mL, IV fentaNYL, 25 mcg= 0.5 mL, IV Push, every 1 hr, PRN hydrALAZINE, 10 mg= 0.5 mL, IV Push, every 4 hours., PRN Lasix, 40 mg= 1 tab, Oral, Daily Lipitor, 40 mg= 2 tab, Oral, QHS nicotine 21 mg/24 hr Patch, 1 patches, Transdermal, Daily oxyCODONE, 5 mg= 5 mL, Oral, every 4 hours., PRN oxyCODONE, 10 mg= 1 tab, Oral, every 4 hours., PRN Protonix, 40 mg= 1 EA, Slow IV Push, every 12 hours. sodium chloride 0.9% flush, 10 mL, IV Push, every 12 hours. sodium chloride 0.9% flush, 20 mL, IV Push, As Directed, PRN ZyPREXA, 5 mg= 1 tab, Oral, Daily Home Advair Diskus 100 mcg-50 mcg inhalation powder, 1 puffs, Inhale, BID,?Not taking Albuterol (Eqv-Proventil HFA) 90 mcg/inh inhalation aerosol, 2 puffs, Inhale, every 6 hr, PRN aspirin 325 mg oral tablet, 325 mg= 1 tab, Oral, QHS cholecalciferol 1000 intl units oral tablet, 25 mcg= 1 tab, Oral, Daily Fish Oil 1000 mg oral capsule, 1000 mg= 1 cap, Oral, Daily Flomax 0.4 mg oral capsule, 0.4 mg= 1 cap, Oral, Daily Lipitor 80 mg oral tablet, 80 mg= 1 tab, Oral, QHS lisinopril 2.5 mg oral tablet, 2.5 mg= 1 tab, Oral, Daily Metoprolol Succinate ER 25 mg oral tablet, extended release, 25 mg= 1 tab, Oral, Daily Plavix 75 mg oral tablet, 75 mg= 1 tab, Oral, every evening Spiriva 18 mcg inhalation capsule, 18 mcg= 1 cap, Inhale, Daily,?Not taking INTAKE AND OUTPUT: ?? This visit (24 hour periods starting at 06:00 PDT)? 12/10/22 *?? 12/09/22?? 12/08/22?? Total Summary?Intake mL?? 300?? 660?? 228?Output mL?? 300?? 1,800?? 3,200?Fluid Balance ?? --?? -1,140?? -2,972?? Intake (5)?Oral Intake mL?? 240?? 600?? --?ceftriaxone mL?? 50?? 50?? 50?furosemide mL?? --?? --?? 8?potassium chloride mL?? --?? --?? 150?sodium chloride mL?? 10?? 10?? 20?Total?? 300?? 660?? 228?? Output (1)?Urethral Indwelling/Continuous 16 Fr mL?? 300?? 1,800?? 3,200?Total?? 300?? 1,800?? 3,200?? Counts (3)?Oral Intake mL?? 240?? 600?? --?Stool Count ?? 1?? 2?? 1?Urinary Catheter Output: mL?? 300?? 1,800?? 3,200? * This column has not completed the indicated time period.?? 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 ICA stenosis s/p L. endarterectomy w/o defeicits who was BIBA due to altered mental status, worsening generalized weakness, slurred speech, and black tarry, bloody stool. Per family, patient had been experiencing generalized weakness for 1 week with worsening last night. Slurred speech started approximately 1:30 AM and became unresponsive at 2:00 AM. Family reports that patient has been hypotensive the past couple of days, with his baseline near 120s/80s. Pt family reported patient was complaining of recent vision changes with mild??headache. Pt had been having worsening SOB over the past couple of days as well. Family denied patient having dark tarry stool or diarrhea, but EMS found patient sitting on bucket with dark watery bloody stool. Pt family denies history of ulcers, liver cirrhosis, alcohol use, past EGD/GI bleed,??nausea, vomiting, diarrhea, abdominal pain, fever, chills.?Per EMS, upon arrival??patient was GCS 5 initially and hypotensive with SBP in 80s. Patient was fluid resuscitated with improvement of GCS to 13. Per ED report,??upon arrival to ED, patient remained GCS 8-9 and was eventually??intubated for airway protection. Patient also given 3 units pRBC in EDgiven Hgb of 5.6 and gross melena. Initial labs revealed acidosis with??pH of 7.22 and??lactic acidof 15 on VBG.??Initial bicarb level of 16.6 with elevated anion gap of 27.??CBC showed leukocytosisof 17??and??significantly low??Hgb of 5.6. BUN 35??and creatinine 1.71, indicative of ZIGGY likely??prerenal due to??hypoperfusion??secondary??to??acute GI bleed.??Normal LFTs with no history of cirrhosis. Patient was treated with Protonix empirically. UA with pyuria (WBC 87) and hematuria (RBC 101).??ED also??initiated further workup for suspected sepsis and gave Vanc and Zosyn empirically. Strokeactivation was also called in the ED given history of CVA and slurring of speech but patient was deemed not a candidate for tPA given active upper GI bleed. CT Head was ordered along with CTA??Head and Neck??which showed no acute intracranial hemorrhage, large vessel occlusion, stenosis, dissection. CXR showed small pleural effusion. CT??Chest??ordered which showed??R. sided??pleural effusion. CTA Abdomen/Pelvis was ordered in ED due to concern for mesenteric ischemia but did not identify any acute intraabdominal processes. At this point, patient remained hypotensive and was started on Levophed. Given his intubation status and hemodynamic instability from acute upper GI bleed, patient was admitted to ICU. ?? 12/06: EGD performed which had gastric contents, unable to visualize a bleed. Repeat EGD tomorrow per GI with Reglan 2x before tomorrow EGD. ?? 12/07: EGD repeated unable to visualize proximal stomach, but otherwise no visual bleeding or ulcers seen in distal stomach nor duodenum. Pt extubated yesterday and on NC. ?? 12/08: Overnight, pt became agitated and zyprexa was given. Pt desaturated and was placed on hi-cecilia NC. This morning, pt stated multiple times he wanted to go back to earth with his family . I repeated to him that he is in the hospital and we will get him home as soon as possible. Pt denied anypain, but reported shortness of breath. No bowel movement overnight. ?? 12/09: assumed care. Calm. No complaints. States he is having trouble breathing which is improving. SUBJECTIVE: as above. PHYSICAL EXAM: Vitals & Measurements T:??36.0?C (Temporal Artery)?? TMIN:??36.0?C (Temporal Artery)?? TMAX:??36.9?C (Temporal Artery)?? HR:??129(Monitored)?? RR:??18?? BP:??147/80?? BP:??146/62(Line)?? SpO2:??96%?? General: [Alert, awake, no acute distress]. Eye: [EOMI, normal conjunctiva]. HENT: [Normocephalic, normal hearing, no scleral icterus]. Lungs: [Crackles, mild labored breathing, diminished, 3L of NC]. Heart: [Normal rate, regular rhythm, no murmur, gallop or edema]. Abdomen: [Soft, non-tender, non-distended]. Skin: [Skin is warm, dry and pink, no rashes or lesions]. Neurologic: [Awake, alert, and oriented X1]. Psychiatric: [Cooperative, appropriate mood and affect]. Circulatory: [No LE edema bilaterally] ?? ASSESSMENT/PLANS: #Delirium vs baseline dementia #Agitation #Sinus tachycardia - was on precedex in ICU for 24 hours - continue zyprexa for now - no agitation this morning but likely has rebound tachycardia from precedex, start clonidine to assist with taper ?? #Community acquired PNA 2/2 to serratia and Hflu #History of COPD #History of chronic tobacco use #Bilateral effusions - improving respiratory status - continue IV abx f/u micro S - continue lasix targetting net negative - repeat xray in am - pulmonary hygiene ?? #Hypernatremia - encourage water intake - d5w for 1L ?? #Acute blood loss anemia #Upper GI bleed with melena, improving - s/p EGD without obvious bleeding - continue holding all antiplatelets and AC - continue monitoring hh and signs of GI bleeding ?? #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 Endarterectomy - holding home asa and plavix 2/2 bleeding ?? #History of A. fib - Takes Eliquis at home. Holding for now given acute upper GI bleed. ?? #Hypotension - multifactorial - resolved ?? #ZIGGY, resolved ?? #UTI with pyuria and hematuria #Chronic indwelling catheter - New nash catheter placed in the ED - Urine cultures grew proteus - continue abx ? Code Status: Full code as of right now. ??prefers no??advanced life support if prognosis seems poor. dvt ppx: holding due to bleed Next of??Emergency contact:?? (Alondra), Granddaughter (Rafaela)??-??, home phone , Marvin (Son) - LABS: Labs??(Last four charted values) WBC ?11.39?(OCT 30)?H??14.76?(OCT 29)?H??20.16?(OCT 28)?H??20.98?(OCT 27) Hgb ?L??11.5?(OCT 30)?L??10.5?(OCT 30)?L??10.5?(OCT 29)?L??10.7?(OCT 29) Hct ?L??37.6?(OCT 30)?L??33.6?(OCT 30)?L??32.6?(OCT 29)?L??33.1?(OCT 29) Plt ?223?(OCT 30)?224?(OCT 29)?248?(OCT 28)?239?(OCT 27) Na ?H??148.0?(OCT 30)?H??147.0?(OCT 29)?141.0?(OCT 28)?140.0?(OCT 27) K ?L??3.1?(OCT 30)?3.7?(OCT 29)?3.9?(OCT 28)?L??3.2?(OCT 27) CO2 ?H??33.2?(OCT 30)?29.8?(OCT 29)?26.9?(OCT 28)?26.6?(OCT 27) Cr ?0.87?(OCT 30)?0.89?(OCT 29)?H??1.40?(OCT 28)?H??1.69?(OCT 27) BUN ?20?(OCT 30)?H??29?(OCT 29)?H??44?(OCT 28)?H??45?(OCT 27) Glucose Random ?82?(OCT 30)?H??135?(OCT 29)?H??173?(OCT 28)?H??207?(OCT 27) PT ?11.3?(OCT 28)?H??14.3?(DEC 06) INR ?1.07?(DEC 07)?H??1.38?(DEC 06) PTT ?26.00?(DEC 07) IMAGING: No qualifying data available. MEDICATIONS: Inpatient cefTRIAXone IVPB, 2 g= 50 mL, IV Piggyback, every 24 hours. chlorhexidine 2% topical pad, 1 izabella, Topical, every evening Dextrose 5% Water 1000 mL, 1000 mL, IV fentaNYL, 25 mcg= 0.5 mL, IV Push, every 1 hr, PRN hydrALAZINE, 10 mg= 0.5 mL, IV Push, every 4 hours., PRN K-Phos Neutral oral tablet, 2 tab, Oral, ACHS oxyCODONE, 5 mg= 5 mL, Oral, every 4 hours., PRN oxyCODONE, 10 mg= 1 tab, Oral, every 4 hours., PRN Protonix, 40 mg= 1 EA, Slow IV Push, every 12 hours. sodium chloride 0.9% flush, 10 mL, IV Push, every 12 hours. sodium chloride 0.9% flush, 20 mL, IV Push, As Directed, PRN ZyPREXA, 5 mg= 1 tab, Oral, Daily Home Advair Diskus 100 mcg-50 mcg inhalation powder, 1 puffs, Inhale, BID,?Not taking Albuterol (Eqv-Proventil HFA) 90 mcg/inh inhalation aerosol, 2 puffs, Inhale, every 6 hr, PRN aspirin 325 mg oral tablet, 325 mg= 1 tab, Oral, QHS cholecalciferol 1000 intl units oral tablet, 25 mcg= 1 tab, Oral, Daily Fish Oil 1000 mg oral capsule, 1000 mg= 1 cap, Oral, Daily Flomax 0.4 mg oral capsule, 0.4 mg= 1 cap, Oral, Daily Lipitor 80 mg oral tablet, 80 mg= 1 tab, Oral, QHS lisinopril 2.5 mg oral tablet, 2.5 mg= 1 tab, Oral, Daily Metoprolol Succinate ER 25 mg oral tablet, extended release, 25 mg= 1 tab, Oral, Daily Plavix 75 mg oral tablet, 75 mg= 1 tab, Oral, every evening Spiriva 18 mcg inhalation capsule, 18 mcg= 1 cap, Inhale, Daily,?Not taking INTAKE AND OUTPUT: ?? This visit (24 hour periods starting at 06:00 PDT)? 12/09/22 *?? 12/08/22?? 12/07/22?? Total Summary?Intake mL?? 420?? 228?? 3,011.71?Output mL?? 750?? 3,200?? 2,890?Fluid Balance ?? -330?? -2,972?? 121.71?? Intake (16)?Dextrose 5% Water/Lactated Ringers 1,000 mL mL?? --?? --?? 857.5?Lactated Ringers Injection mL?? --?? --?? 500?Oral Intake mL?? 360?? --?? 30?Red Blood Cells Volume Transfused mL?? --?? --?? 1,000?ceftriaxone mL?? 50?? 50?? 50?dexmedeTOMIDine 400 mcg [0.4 mcg/kg/hr] + Premix Sodium Chloride 0.9% 100 mL mL?? --?? --?? 314.314?fentaNYL 1,000 mcg [25 mcg/hr] + Premix Sodium Chloride 0.9% 100 mL mL?? --?? --?? 90.375?fentanyl mL?? --?? --?? 0.5?furosemide mL?? --?? 8?? 2?norepinephrine 16 mg [0.01 mcg/kg/min] + Dextrose 5% Water 250 mL mL?? --?? --?? 17.997?oxycodone mL?? --?? --?? 5?piperacillin-tazobactam mL?? --?? --?? 75?potassium chloride mL?? --?? 150?? --?propofol 1,000 mg [10 mcg/kg/min] + Premix* 100 mL mL?? --?? --?? 40.023?sodium chloride mL?? 10?? 20?? 20?vasopressin 40 units [0.03 unit/min] + Premix Dextrose 5% Water 100 mL mL?? --?? --?? 9?Total?? 420?? 228?? 3,011.71?? Output (2)?Rectal mL?? --?? --?? 10?Urethral Indwelling/Continuous 16 Fr mL?? 750?? 3,200?? 2,880?Total?? 750?? 3,200?? 2,890?? Counts (5)?GI Tube Output: mL?? --?? --?? 10?Oral Intake mL?? 360?? --?? 30?Red Blood Cells Volume Transfused mL?? --?? --?? 1,000?Stool Count ?? 1?? 1?? --?Urinary Catheter Output: mL?? 750?? 3,200?? 2,880? * This column has not completed the indicated time period.?? 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 ICA stenosis s/p L. endarterectomy w/o defeicits who was BIBA due to altered mental status, worsening generalized weakness, slurred speech, and black tarry, bloody stool. Per family, patient had been experiencing generalized weakness for 1 week with worsening last night. Slurred speech started approximately 1:30 AM and became unresponsive at 2:00 AM. Family reports that patient has been hypotensive the past couple of days, with his baseline near 120s/80s. Pt family reported patient was complaining of recent vision changes with mild??headache. Pt had been having worsening SOB over the past couple of days as well. Family denied patient having dark tarry stool or diarrhea, but EMS found patient sitting on bucket with dark watery bloody stool. Pt family denies history of ulcers, liver cirrhosis, alcohol use, past EGD/GI bleed,??nausea, vomiting, diarrhea, abdominal pain, fever, chills.?Per EMS, upon arrival??patient was GCS 5 initially and hypotensive with SBP in 80s. Patient was fluid resuscitated with improvement of GCS to 13. Per ED report,??upon arrival to ED, patient remained GCS 8-9 and was eventually??intubated for airway protection. Patient also given 3 units pRBC in EDgiven Hgb of 5.6 and gross melena. Initial labs revealed acidosis with??pH of 7.22 and??lactic acidof 15 on VBG.??Initial bicarb level of 16.6 with elevated anion gap of 27.??CBC showed leukocytosisof 17??and??significantly low??Hgb of 5.6. BUN 35??and creatinine 1.71, indicative of ZIGGY likely??prerenal due to??hypoperfusion??secondary??to??acute GI bleed.??Normal LFTs with no history of cirrhosis. Patient was treated with Protonix empirically. UA with pyuria (WBC 87) and hematuria (RBC 101).??ED also??initiated further workup for suspected sepsis and gave Vanc and Zosyn empirically. Strokeactivation was also called in the ED given history of CVA and slurring of speech but patient was deemed not a candidate for tPA given active upper GI bleed. CT Head was ordered along with CTA??Head and Neck??which showed no acute intracranial hemorrhage, large vessel occlusion, stenosis, dissection. CXR showed small pleural effusion. CT??Chest??ordered which showed??R. sided??pleural effusion. CTA Abdomen/Pelvis was ordered in ED due to concern for mesenteric ischemia but did not identify any acute intraabdominal processes. At this point, patient remained hypotensive and was started on Levophed. Given his intubation status and hemodynamic instability from acute upper GI bleed, patient was admitted to ICU. ?? 12/06: EGD performed which had gastric contents, unable to visualize a bleed. Repeat EGD tomorrow per GI with Reglan 2x before tomorrow EGD. ?? 12/07: EGD repeated unable to visualize proximal stomach, but otherwise no visual bleeding or ulcers seen in distal stomach nor duodenum. Pt extubated yesterday and on NC. INTERVAL HISTORY: Overnight, pt became agitated and zyprexa was given. Pt desaturated and was placed on hi-cecilia NC. This morning, pt stated multiple times he wanted to go back [place] with his family . I repeated to him that he is in the hospital and we will get him home as soon as possible. Pt denied any pain, butreported shortness of breath. No bowel movement overnight. PHYSICAL EXAM: Vitals & Measurements T:??37.1?C (Oral)?? TMIN:??36.8?C (Oral)?? TMAX:??37.7?C (Bladder)?? HR:??82(Monitored)?? RR:??14?? BP:??164/74?? BP:??141/58(Line)?? SpO2:??100%?? General: [Alert, awake, no acute distress]. Eye: [EOMI, normal conjunctiva]. HENT: [Normocephalic, normal hearing, no scleral icterus]. Lungs: [Crackles, mild labored breathing, wet cough multiple times on exam, 3L of NC]. Heart: [Normal rate, regular rhythm, no murmur, gallop or edema]. Abdomen: [Soft, non-tender, non-distended]. Skin: [Skin is warm, dry and pink, no rashes or lesions]. Neurologic: [Awake, alert, and oriented X1]. Psychiatric: [Cooperative, appropriate mood and affect]. Circulatory: [No LE edema bilaterally] ASSESSMENT/PLANS: 1.??Indwelling Nash catheter present??(Z97.8: Presence of other specified devices) 2.??Complicated UTI (urinary tract infection)??(N39.0: Urinary tract infection, site not specified) 3.??Metabolic acidosis,??(E87.20: Acidosis, unspecified)Lactic acidosis 5.??Prediabetes??(R73.03: Prediabetes) 6.??Hypertension??(I10: Essential (primary) hypertension) 7.??Chronic diastolic CHF (congestive heart failure)??(I50.32: Chronic diastolic (congestive) heartfailure) 8.??Chronic obstructive pulmonary disease??(J44.9: Chronic obstructive pulmonary disease, unspecified) 9.??Hemorrhagic shock??(R57.8: Other shock) 10.??ZIGGY (acute kidney injury)??(N17.9: Acute kidney failure, unspecified) Altered mental status??(R41.82: Altered mental status, unspecified) Anemia??(D64.9: Anemia, unspecified) GI bleed??(K92.2: Gastrointestinal hemorrhage, unspecified) On mechanically assisted ventilation??(Z99.11: Dependence on respirator [ventilator] status) Pyelonephritis??(N12: Tubulo-interstitial nephritis, not specified as acute or chronic) Orders: dexmedeTOMIDine 400 mcg [0.4 mcg/kg/hr] + Premix Sodium Chloride 0.9% 100 mL, 100 mL, IV, Titrationinstructions: Adjust by 0.2 mcg/kg/hr as often as every 30 minutes, Max Dose: 1.2 mcg/kg/hr, Goal: RASS 0 to -2, Rate: 7.95 mL/hr, Order Duration: 45 days, Start Date: 12/07/22 13:47:00 PDT, Stop Date: 01/21/23 13:46:00 PST Dextrose 5% Water/Lactated Ringers 1,000 mL, 1,000 mL, IV, 50 mL/hr, Order Duration: 45 days, StartDate: 12/07/22 11:16:00 PDT, Stop Date: 01/21/23 11:15:00 PST, 77.5 kg, Populate Charting Weight From Order, 1.94, m2 furosemide, 40 mg = 4 mL, IV Push, Injection, BID for 45 days, First Dose: 12/08/22 9:13:00 PDT, Stop Date: 01/21/23 17:30:00 PST OLANZapine, 5 mg = 1 tab, Oral, Tab-Dis, Daily for 45 days, First Dose: 12/08/22 10:10:00 PDT, StopDate: 01/21/23 8:00:00 PST Delirium Prevention and Management Interventions Electrocardiogram Inpatient Hgb and Hct. 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 Endarterectomy #Agitation - On Precedex - Started Zyprexa 5mg daily - Given history of CVA, consider starting Lipitor? #Metabolic encephalopathy, improved #AMS with slurred speech, improved ?? Cardiovascular #History of HFpEF (EF 70-75%) #History of L. 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 Endarterectomy #Hx of HTN #HLD - Consider restarting home BP medications if BP >140 systolic - Previous echo in 2021 showed EF 70-75%,??mild aortic stenosis, and trace tricuspid regurgitation.?? - October 2022??Echo was performed at NH where family was told he has?? valve problems -??Pending echo results ?? - Monitor fluid status due to history of HFpEF ?? #History of A. fib - Takes Eliquis at home. Holding for now given acute upper GI bleed. - Need to get possible cardiology consult regarding restarting anticoagulation for hx of Afib ?? #Hemorrhagic shock vs distributive shock due to upper GI bleed vs septic shock, resolved #Hypotension, resolved ?? Respiratory?? #History of COPD #History of chronic tobacco use #Bilateral effusions #Serratia and H. Flu positive Biofire - Refer to Heme/ID - Follow with daily CXR and CBC - Hi cecilia to NC 3 L - O2 goal of 88-92% - Start Lasix 40 mg BID for pleural effusions ?? #Respiratory acidosis likely secondary to COPD, resolved #Mechanical ventilation, resolved ?? Gastrointestinal #Acute blood loss anemia #Upper GI bleed with melena, improving - Hgb and Hct q6h, hgb remains stable - Protonix 40 mg BID - GI recs: EGD was unable to visualize proximal stomach, no ulcer or bleeding seen in duodenum and distal stomach ? - Monitor H/H, stool output ? - If see increased melena, vomiting blood, or decrease hgb reconsult GI for repeat EGD ? - Otherwise recommends getting EGD repeated in outpatient setting - Started Clear liquid diet today and advance as tolerated - Consider blood transfusion if Hgb<7 and plt transfusion if plt<50 with active bleed ?? #Hemorrhagic shock, resolved ?? Renal #ZIGGY, resolved ?? - Strict I/O - Daily renal panel - ABG q6h - Replete electrolytes prn ?? #UTI with pyuria and hematuria #Chronic indwelling catheter - New nash catheter placed in the ED - Urine cultures grew proteus ?? #Possible history of BPH - Takes Tamsulosin at home. Hold for now. ?? #Anion gap metabolic acidosis, resolved #Lactic acidosis, resolved ?? Heme/ID #Leukocytosis, improved #Septic shock: Pneumonia vs. UTI #Serratia and H. Flu positive Biofire #Positive urine cx for proteus -??Ceftriaxone 12/07 for 6 days - F/u blood cultures ?? #Acute blood loss anemia, improving - Continue monitoring Hgb/hct ?? #Possible Coagulopathy - PT/INR normal ?? Endo #Hyperglycemia - Takes Metformin at home, holding - A1C 5.3 - Glucommander setting for glycemic control for critical ill patient ?? MSK #History of unspecified skin cancer s/p surgical removal - Per family, patient had unknown type of skin cancer on upper back which was removed surgically 30+ years ago ?? Fluids: Stop maintenance fluids as we are starting clear liquids Electrolytes: will replete PRN Nutrition: Clear liquid diet Antibiotics:??Vanc and Zosyn d/c. Ceftriaxone 12/06-12/13 DVT PPx: SCDs, holding chemoprophylaxis??given acute upper GI bleed GI??PPX: Protonix Consults: GI consulted (Dr. New) Dispo: Maintain ICU level of care Code Status: Full code as of right now. ??prefers no??advanced life support if prognosis seems poor. Next of??Emergency contact:?? (Alondra), Granddaughter (Rafaela)??-??, home phone , Marvin (Son) - ?? Patient was discussed with my attending, Dr. Julius Lanza D.O. [phone] PGY-1 [employer] Worker LABS: Labs??(Last four charted values) WBC ?H??14.76?(DEC 08)?H??20.16?(DEC 07)?H??20.98?(DEC 06)?H??17.09?(DEC 06) Hgb ?L??9.7?(DEC 08)?L??9.6?(DEC 08)?L??10.1?(DEC 07)?L??10.4?(DEC 07) Hct ?L??29.6?(DEC 08)?L??29.4?(DEC 08)?L??30.6?(DEC 07)?L??31.9?(DEC 07) Plt ?224?(OCT 29)?248?(OCT 28)?239?(OCT 27)?400?(OCT 27) Na ?H??147.0?(OCT 29)?141.0?(OCT 28)?140.0?(OCT 27)?138.0?(OCT 27) K ?3.7?(OCT 29)?3.9?(OCT 28)?L??3.2?(OCT 27)?3.8?(OCT 27) CO2 ?29.8?(OCT 29)?26.9?(OCT 28)?26.6?(OCT 27)?L??18.5?(OCT 27) Cr ?0.89?(OCT 29)?H??1.40?(OCT 28)?H??1.69?(OCT 27)?H??1.57?(OCT 27) BUN ?H??29?(OCT 29)?H??44?(OCT 28)?H??45?(OCT 27)?H??30?(OCT 27) Glucose Random ?H??135?(DEC 08)?H??173?(DEC 07)?H??207?(DEC 06)?H??170?(DEC 06) PT ?11.3?(DEC 07)?H??14.3?(DEC 06) INR ?1.07?(DEC 07)?H??1.38?(DEC 06) PTT ?26.00?(DEC 07) IMAGING: XR Chest 1 View Portable ?? 12/08/22 05:38:38 IMPRESSION: ?? Progressive bilateral pulmonary opacities with underlying effusions. Heart appears borderline prominent. ?? Endotracheal tube and transesophageal tube of removed uneventfully. Left IJ introducer remains in situ. Grossly the osseous structures are similar the prior exam. ?? Signed By: MD Kati, Steven Mcarthur MEDICATIONS: Inpatient Atrovent 0.02% 500 mcg/2.5 mL solution for nebulization, 500 mcg= 2.5 mL, NEB, every 4 hours. RT cefTRIAXone IVPB, 2 g= 50 mL, IV Piggyback, every 24 hours. chlorhexidine 2% topical pad, 1 izabella, Topical, every evening D5W/LR 1,000 mL, 1000 mL, IV dexmedeTOMIDine additive* 400 mcg [0.4 mcg/kg/hr] + Premix Sodium Chloride 0.9%* 100 mL Dextrose 10% Water Bolus*, 100 to 150 mL, IV Bolus, every 15 min, PRN dextrose 50% Syringe, 12.5 g= 25 mL, IV Push, every 15 min, PRN fentaNYL, 25 mcg= 0.5 mL, IV Push, every 1 hr, PRN glucagon, 1 mg= 1 EA, IM, As Directed, PRN HumaLOG., Per Glucommander, Subcut, every 4 hours. HumaLOG., Per Glucommander, Subcut, As Directed, PRN Lantus, Per Glucommander, Subcut, BID Lasix, 40 mg= 4 mL, IV Push, BID norEPINEPHrine additive* 16 mg [0.01 mcg/kg/min] + Dextrose 5% Water* 250 mL oxyCODONE, 5 mg= 5 mL, Oral, every 4 hours., PRN oxyCODONE, 10 mg= 1 tab, Oral, every 4 hours., PRN Peridex 0.12% mucous membrane liquid, 0.018 g= 15 mL, Mucous Membrane, BID Pharmacy Communication, 1 EA, N/A, As Directed Protonix, 40 mg= 1 EA, Slow IV Push, every 12 hours. Proventil 2.5 mg/3 mL (0.083%) inhalation solution, 2.5 mg= 3 mL, NEB, every 4 hours. RT sodium chloride 0.9% flush, 10 mL, IV Push, every 12 hours. sodium chloride 0.9% flush, 20 mL, IV Push, As Directed, PRN vasopressin additive* 40 units [0.03 unit/min] + Premix Dextrose 5% Water* 100 mL ZyPREXA, 5 mg, Oral, Daily Home Advair Diskus 100 mcg-50 mcg inhalation powder, 1 puffs, Inhale, BID,?Not taking Albuterol (Eqv-Proventil HFA) 90 mcg/inh inhalation aerosol, 2 puffs, Inhale, every 6 hr, PRN aspirin 325 mg oral tablet, 325 mg= 1 tab, Oral, QHS cholecalciferol 1000 intl units oral tablet, 25 mcg= 1 tab, Oral, Daily Fish Oil 1000 mg oral capsule, 1000 mg= 1 cap, Oral, Daily Flomax 0.4 mg oral capsule, 0.4 mg= 1 cap, Oral, Daily Lipitor 80 mg oral tablet, 80 mg= 1 tab, Oral, QHS lisinopril 2.5 mg oral tablet, 2.5 mg= 1 tab, Oral, Daily Metoprolol Succinate ER 25 mg oral tablet, extended release, 25 mg= 1 tab, Oral, Daily Plavix 75 mg oral tablet, 75 mg= 1 tab, Oral, every evening Spiriva 18 mcg inhalation capsule, 18 mcg= 1 cap, Inhale, Daily,?Not taking Red Blood Cells Volume Transfused: 500 mL (12/07/22 12:03:37) INTAKE AND OUTPUT: ?? This visit (24 hour periods starting at 06:00 PDT)? 12/08/22 *?? 12/07/22?? 12/06/22?? Total Summary?Intake mL?? 164?? 3,011.71?? 4,407.072?Output mL?? --?? 2,890?? 3,655?Fluid Balance ?? 164?? 121.71?? 752.072?? Intake (22)?Dextrose 5% Water/Lactated Ringers 1,000 mL mL?? --?? 857.5?? --?Lactated Ringers 1,000 mL mL?? --?? --?? 950?Lactated Ringers Injection mL?? --?? 500?? 1,500?Oral Intake mL?? --?? 30?? --?Red Blood Cells Volume Transfused mL?? --?? 1,000?? --?Sodium Chloride 0.9%, vancomycin mL?? --?? --?? 143.33?ceftriaxone mL?? 50?? 50?? 50?dexmedeTOMIDine 400 mcg [0.4 mcg/kg/hr] + Premix Sodium Chloride 0.9% 100 mL mL?? --?? 314.314?? --?fentaNYL 1,000 mcg [25 mcg/hr] + Premix Sodium Chloride 0.9% 100 mL mL?? --?? 90.375?? 215?fentanyl mL?? --?? 0.5?? --?furosemide mL?? 4?? 2?? --?magnesium sulfate mL?? --?? --?? 200?metoclopramide mL?? --?? --?? 6?norepinephrine 16 mg [0.01 mcg/kg/min] + Dextrose 5% Water 250 mL mL?? --?? 17.997?? 39.486?norepinephrine 4 mg [0.01 mcg/kg/min] + Premix Dextrose 5% Water 250 mL mL?? --?? --?? 564.384?oxycodone mL?? --?? 5?? --?piperacillin-tazobactam mL?? --?? 75?? 225?potassium chloride mL?? 100?? --?? 200?propofol 1,000 mg [10 mcg/kg/min] + Premix* 100 mL mL?? --?? 40.023?? 93.122?sodium chloride mL?? 10?? 20?? 10?vancomycin mL?? --?? --?? 150?vasopressin 40 units [0.03 unit/min] + Premix Dextrose 5% Water 100 mL mL?? --?? 9?? 60.75?Total?? 164?? 3,011.71?? 4,407.072?? Output (3)?Rectal mL?? --?? 10?? 900?Urethral Indwelling/Continuous 16 Fr mL?? --?? 2,880?? 2,055?Urine Voided mL?? --?? --?? 700?Total?? --?? 2,890?? 3,655?? Counts (5)?GI Tube Output: mL?? --?? 10?? 900?Oral Intake mL?? --?? 30?? --?Red Blood Cells Volume Transfused mL?? --?? 1,000?? --?Urinary Catheter Output: mL?? --?? 2,880?? 2,055?Urine Voided mL?? --?? --?? 700? * This column has not completed the indicated time period.?? Product Manager Services Utilized [_] Phone [_] Skype [_] Face to Face Electronically Signed on 12/08/22 10:35 AM DO Lanza Martin (R) Electronically Signed on 12/08/22 12:17 PM MD Laura, Julius Bryson * MD Sanchez Dale J: PERFORM Event Display: Critical Care Progress Note Authored Date: [id number] I have examined this patient and confirmed the essential components of the history and physical exam. I agree with the plan of care as documented by the resident. See resident's note for complete details of service.? MD Laura, Julius Bryson: I spent??35 minutes of clinical care time with this patient not including reportable procedures.?? Time involved was spent in direct patient care, reviewing ancillary data, old records, consulting with decision makers, other doctors, giving orders and documenting. Electronically Signed on 12/08/22 12:18 PM MD Sanchez Dale J * DO Lanza Martin (R): PERFORM, MODIFY, MODIFY, MODIFY, MODIFY Event Display: Critical Care Progress Note Authored Date: [id number] HOSPITAL COURSE: Patient is a 77-year-old male with PMH of HTN, CHFpEF (70-75%), HLD, COPD, 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 ICA stenosis s/p L. endarterectomy w/o defeicits who was BIBA due to altered mental status, worsening generalized weakness, slurred speech, and black tarry, bloody stool. Per family, patient had been experiencing generalized weakness for 1 week with worsening last night. Slurred speech started approximately 1:30 AM and became unresponsive at 2:00 AM. Family reports that patient has been hypotensive the past couple of days, with his baseline near 120s/80s. Pt family reported patient was complaining of recent vision changes with mild??headache. Pt had been having worsening SOB over the past couple of days as well. Family denied patient having dark tarry stool or diarrhea, but EMS found patient sitting on bucket with dark watery bloody stool. Pt family denies history of ulcers, liver cirrhosis, alcohol use, past EGD/GI bleed,??nausea, vomiting, diarrhea, abdominal pain, fever, chills.?Per EMS, upon arrival??patient was GCS 5 initially and hypotensive with SBP in 80s. Patient was fluid resuscitated with improvement of GCS to 13. Per ED report,??upon arrival to ED, patient remained GCS 8-9 and was eventually??intubated for airway protection. Patient also given 3 units pRBC in EDgiven Hgb of 5.6 and gross melena. Initial labs revealed acidosis with??pH of 7.22 and??lactic acidof 15 on VBG.??Initial bicarb level of 16.6 with elevated anion gap of 27.??CBC showed leukocytosisof 17??and??significantly low??Hgb of 5.6. BUN 35??and creatinine 1.71, indicative of ZIGGY likely??prerenal due to??hypoperfusion??secondary??to??acute GI bleed.??Normal LFTs with no history of cirrhosis. Patient was treated with Protonix empirically. UA with pyuria (WBC 87) and hematuria (RBC 101).??ED also??initiated further workup for suspected sepsis and gave Vanc and Zosyn empirically. Strokeactivation was also called in the ED given history of CVA and slurring of speech but patient was deemed not a candidate for tPA given active upper GI bleed. CT Head was ordered along with CTA??Head and Neck??which showed no acute intracranial hemorrhage, large vessel occlusion, stenosis, dissection. CXR showed small pleural effusion. CT??Chest??ordered which showed??R. sided??pleural effusion. CTA Abdomen/Pelvis was ordered in ED due to concern for mesenteric ischemia but did not identify any acute intraabdominal processes. At this point, patient remained hypotensive and was started on Levophed. Given his intubation status and hemodynamic instability from acute upper GI bleed, patient was admitted to ICU. ?? 12/06: EGD performed which had gastric contents, unable to visualize a bleed. Repeat EGD tomorrow per GI with Reglan 2x before tomorrow EGD. INTERVAL HISTORY: Pt intubated, following commands. Patient family consent to blood transfusion. PHYSICAL EXAM: Vitals & Measurements T:??37.8?C (Bladder)?? TMIN:??36.8?C (Bladder)?? TMAX:??37.8?C (Bladder)?? HR:??98(Pulse)?? RR:??22?? BP:??110/48?? BP:??121/43(Line)?? SpO2:??97%?? WT:??77.500??kg?? WT:??77.500??kg?? General: [Following commands, melena in G-tube, no acute distress]. Eye: [PERRL,??normal conjunctiva]. HENT: [Normocephalic, normal hearing, no scleral icterus]. Lungs: [Clear to auscultation, mechanically ventilated]. Heart: [Normal rate, regular rhythm, no murmur, gallop or edema]. Abdomen: [Soft, non-distended]. Skin: [Skin is warm, dry and pink, no rashes or lesions]. Neurologic: [Following commands]. Circulatory: [No LE edema bilaterally] ASSESSMENT/PLANS: 1.??Indwelling Nash catheter present??(Z97.8: Presence of other specified devices) 2.??Complicated UTI (urinary tract infection)??(N39.0: Urinary tract infection, site not specified) 3.??Metabolic acidosis,??(E87.20: Acidosis, unspecified)Lactic acidosis 5.??Prediabetes??(R73.03: Prediabetes) 6.??Hypertension??(I10: Essential (primary) hypertension) 7.??Chronic diastolic CHF (congestive heart failure)??(I50.32: Chronic diastolic (congestive) heartfailure) 8.??Chronic obstructive pulmonary disease??(J44.9: Chronic obstructive pulmonary disease, unspecified) 9.??Hemorrhagic shock??(R57.8: Other shock) 10.??ZIGGY (acute kidney injury)??(N17.9: Acute kidney failure, unspecified) Altered mental status??(R41.82: Altered mental status, unspecified) Anemia??(D64.9: Anemia, unspecified) GI bleed??(K92.2: Gastrointestinal hemorrhage, unspecified) On mechanically assisted ventilation??(Z99.11: Dependence on respirator [ventilator] status) Pyelonephritis??(N12: Tubulo-interstitial nephritis, not specified as acute or chronic) Orders: albuterol, 2.5 mg, = 3 mL, NEB, Device: Aerosol, Soln-Inhalation, every 4 hours. RT for 45 days, First Dose: 12/06/22 15:00:00 PDT, Stop Date: 01/20/23 11:00:00 PST chlorhexidine topical, 0.018 g = 15 mL, Mucous Membrane, Liquid, BID for 45 days, First Dose: 12/06/22 20:00:00 PDT, Stop Date: 01/20/23 8:00:00 PST Dextrose 10% Water, 100 to 150 mL, IV Bolus, Soln-IV, every 15 min for 45 days, PRN other (see comment), First Dose: 12/06/22 13:31:00 PDT, Stop Date: 01/20/23 12:30:00 PST glucagon, 1 mg = 1 EA, IM, Injection, As Directed for 45 days, PRN other (see comment), First Dose:12/06/22 13:31:00 PDT, Stop Date: 01/20/23 12:30:00 PST glucose, 12.5 g = 25 mL, IV Push, Syringe-inj, every 15 min for 45 days, PRN other (see comment), First Dose: 12/06/22 13:31:00 PDT, Stop Date: 01/20/23 12:30:00 PST insulin glargine, Ongoing Dose: Per Glucommander, Subcut, Injection, BID, for 45 days, First Dose: 12/06/22 20:00:00 PDT, Stop Date: 01/20/23 8:00:00 PST insulin lispro, Ongoing Dose: Per Glucommander, Subcut, Injection, every 4 hours., for 45 days, First Dose: 12/06/22 16:00:00 PDT, Stop Date: 01/20/23 12:00:00 PST insulin lispro, Ongoing Dose: Per Glucommander, Subcut, Injection, As Directed, for 45 days, PRN blood glucose, First Dose: 12/06/22 13:31:00 PDT, Stop Date: 01/20/23 12:30:00 PST ipratropium, 500 mcg, = 2.5 mL, NEB, Device: Aerosol, Soln-Inhalation, every 4 hours. RT for 45 days, First Dose: 12/06/22 15:00:00 PDT, Stop Date: 01/20/23 11:00:00 PST norepinephrine 16 mg [0.01 mcg/kg/min] + Dextrose 5% Water 250 mL, 250 mL, IV, Titration instructions: 0.02 mcg/kg/min as often as every 1 minute, Max Dose: 3 mcg/kg/min, Goal: Mean arterial pressureGREATER than 65 mmHg, Rate: 0.73 mL/hr, Order Duration: 45 days, Start Date: 12/06/22 15:47:00 PDT,Stop Date: ... Pharmacy Communication, 12/06/22 13:31:00 PDT, Instructions: USE ORDER COMMENTS FOR PHARMACY COMMUNICATION. sodium chloride, 10 mL, IV Push, Injection, every 12 hours. for 45 days, First Dose: 12/06/22 20:00:00 PDT, Stop Date: 01/20/23 8:00:00 PST sodium chloride, 20 mL, IV Push, Injection, As Directed for 45 days, PRN other (see comment), FirstDose: 12/06/22 11:27:00 PDT, Stop Date: 01/20/23 10:26:00 PST vasopressin 40 units [0.03 unit/min] + Premix Dextrose 5% Water 100 mL, 100 mL, IV, Goal: N/A, Rate: 4.5 mL/hr, Order Duration: 45 days, Start Date: 12/06/22 15:48:00 PDT, Stop Date: 01/20/23 15:47:00 PST Blood Glucose Monitoring POINT OF CARE Central Venous Access Device Line Care Central Venous Access Device Line Care Change attending to Communication Order D/C Insulin PUMP Communication Early and Progressive Mobilization Glucommander Setting Head of Bed Notify Treating Practitioner Laboratory Results NPO Readiness to Extubate Assessment Documentation Restraint Initiate Non Violent (Protective) Sedation Vacation & Spontaneous Breathing Trial Protocol Ventilator - Volume Control A/C Neuro #Metabolic encephalopathy #AMS with slurred speech #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 Endarterectomy #Sedation - On Fentanyl and Propofol - RAAS score -1 to -2 goal - Given history of CVA, consider starting Lipitor - Need to determine patient anticoagulation use of Eliquis ? Cardiovascular #Hemorrhagic shock vs distributive shock due to upper GI bleed vs septic shock #History of HFpEF (EF 70-75%) #History of L. 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 Endarterectomy #Hypotension #Hx of HTN #HLD - On vasopressin try to switch to levophed, and then off pressors, MAP goal >60 - Give 2 packed RBC for low Hgb and consider using fluid resuscitation to wean patient off pressors - If pressures don't increase with pRBC nor fluids will start albumin - Holding BP meds given persistent??hypotension - Previous echo in 2021 showed EF 70-75%,??mild aortic stenosis, and trace tricuspid regurgitation.?? - October 2022??Echo was performed at NH where family was told he has?? valve problems -??Echo ordered today for possible cardiogenic cause ?? - Monitor fluid status due to history of HFpEF ?? #Possible history of A. fib - Takes Eliquis at home. Holding for now given acute upper GI bleed. ?? Respiratory?? #History of COPD #History of chronic tobacco use #Mechanical Ventilation - MV settings: VC/AC, RR-22, TV-450, PEEP-6, FiO2-40 - Albuterol and Atrovent??nebulizer??treatment - Monitor ABG for improvement in acidosis - SBT today to wean patient off mechanical ventilation ?? #Right sided pleural effusion #Leukocytosis #Possible Pneumonia - CXR shows mild pleural effusion. CT chest confirms right sided pleural effusion. - Refer to Heme/ID - Follow with daily CXR and CBC ?? #Respiratory acidosis likely secondary to COPD, resolved ?? Gastrointestinal #Acute blood loss anemia #Upper GI bleed with melena #Hemorrhagic shock - Hgb and Hct q6h - Protonix 40 mg BID - IV Reglan 10 mg given two times since yesterday evening and this morning - Low intermittent suction of OG-tube - Repeat EGD today, yesterday EGD was difficult to visualize bleed due to gastric contents - Consider blood transfusion if Hgb<7 and plt transfusion if plt<50 with active bleed ?? Renal #ZIGGY, likely prerenal due to hypoperfusion secondary to acute GI bleed, improving - ZIGGY improving after fluid resuscitation - Strict I/O - Daily renal panel - Continue mIVF - ABG q6h ?? #UTI with pyuria and hematuria #Chronic indwelling catheter - New nash catheter placed in the ED - Urine cultures pending - Refer to heme/ID ?? #Possible history of BPH - Takes Tamsulosin at home. Hold for now. ?? #Anion gap metabolic acidosis, resolved #Lactic acidosis, resolved ?? Heme/ID #Leukocytosis #Hypothermia #Septic shock: Pneumonia vs. UTI # Serratia and H. Flu positive Biofire - D/c vanc and zosyn - Start Ceftriaxone today for coverage - F/u blood cultures, urine cultures ?? #Acute blood loss anemia - Order 2 Packed RBC, monitor Hgb/Hct and blood pressure - Discussed consent with Lilia, risk and benefits were discussed with her and she agreed to blood transfusion. Nurses Angela and Bubba confirmed pt consented to blood transfusion ?? #Possible Coagulopathy - Obtain PT/INR ?? Endo #Hyperglycemia - Takes Metformin at home - A1C 5.3 - Glucommander setting for glycemic control for critical ill patient ?? MSK #History of unspecified skin cancer s/p surgical removal - Per family, patient had unknown type of skin cancer on upper back which was removed surgically 30+ years ago ?? Fluids: IV LR 50 cc/hr Electrolytes: will replete PRN Nutrition: NPO for EGD Antibiotics:??Vanc and Zosyn d/c. Ceftriaxone 12/07- DVT PPx: SCDs, holding chemoprophylaxis??given acute upper GI bleed GI??PPX: Protonix Consults: GI consulted (Dr. New) Dispo: Maintain ICU level of care Code Status: Full code as of right now. ??prefers no??advanced life support if prognosis seems poor. Next of??Emergency contact:?? (Alondra), Granddaughter (Rafaela)??-??, home phone ?? Patient was discussed with my attending, Dr. Julius Lanza D.O. [phone] PGY-1 [employer] Worker LABS: Labs??(Last four charted values) WBC ?H??20.16?(DEC 07)?H??20.98?(DEC 06)?H??17.09?(DEC 06) Hgb ?L??7.8?(DEC 07)?L??8.2?(DEC 07)?L??8.5?(DEC 06)?L??8.7?(DEC 06) Hct ?L??23.7?(DEC 07)?L??25.0?(DEC 07)?L??26.5?(DEC 06)?L??26.1?(DEC 06) Plt ?248?(DEC 07)?239?(DEC 06)?400?(DEC 06) Na ?141.0?(DEC 07)?140.0?(OCT 27)?138.0?(OCT 27)?139.0?(OCT 27) K ?3.9?(OCT 28)?L??3.2?(OCT 27)?3.8?(OCT 27)?3.8?(OCT27) CO2 ?26.9?(OCT 28)?26.6?(OCT 27)?L??18.5?(OCT 27)?L??16.6?(OCT 27) Cr ?H??1.40?(OCT 28)?H??1.69?(OCT 27)?H??1.57?(OCT 27)?H??1.71?(OCT 27) BUN ?H??44?(OCT 28)?H??45?(OCT 27)?H??30?(OCT 27)?H??35?(OCT 27) Glucose Random ?H??173?(OCT 28)?H??207?(OCT 27)?H??170?(OCT 27)?H??221?(OCT 27) PT ?11.3?(DEC 07)?H??14.3?(DEC 06) INR ?1.07?(DEC 07)?H??1.38?(DEC 06) PTT ?26.00?(DEC 07) IMAGING: XR Abdomen KUB 1 View ?? 12/06/22 15:56:56 IMPRESSION: As above ?? Signed By: MD Pauline, Luis A Bryson ?? XR Chest 1 View Portable ?? 12/07/22 04:02:02 IMPRESSION: ?? Progressive interstitial opacities. Dominant right side. Follow-through resolution. Correlate clinically. No leland cardiomegaly. Heart shifted to the right concordant with degree rotation of patient.Soft tissues, osseous structures, and indwelling support lines and tubes appear stable. ?? Signed By: MD Kati, Steven Mcarthur ?? XR Chest 1 View Portable ?? 12/06/22 11:13:13 IMPRESSION: A single frontal x-ray of the chest was performed and reveals the following: ?? Since the prior study there is a new left central line with the tip probably in the left brachiocephalic vein. Correlation suggested. Otherwise The pertinent lines and/or tubes remain unchanged in position when compared with the prior study. ?? Diffuse mild opacity persists unchanged without pneumothorax ?? Signed By: MD Pauline, Luis A Bryson MEDICATIONS: Inpatient Atrovent 0.02% 500 mcg/2.5 mL solution for nebulization, 500 mcg= 2.5 mL, NEB, every 4 hours. RT cefTRIAXone IVPB, 2 g= 50 mL, IV Piggyback, every 24 hours. chlorhexidine 2% topical pad, 1 izabella, Topical, every evening Dextrose 10% Water Bolus*, 100 to 150 mL, IV Bolus, every 15 min, PRN dextrose 50% Syringe, 12.5 g= 25 mL, IV Push, every 15 min, PRN fentaNYL additive* 1,000 mcg [25 mcg/hr] + Premix Sodium Chloride 0.9% 100 mL glucagon, 1 mg= 1 EA, IM, As Directed, PRN HumaLOG., Per Glucommander, Subcut, every 4 hours. HumaLOG., Per Glucommander, Subcut, As Directed, PRN Lactated Ringers 1,000 mL, 1000 mL, IV Lantus, Per Glucommander, Subcut, BID norEPINEPHrine additive* 16 mg [0.01 mcg/kg/min] + Dextrose 5% Water* 250 mL norEPINEPHrine additive* 4 mg [0.01 mcg/kg/min] + Premix Dextrose 5% Water* 250 mL Peridex 0.12% mucous membrane liquid, 0.018 g= 15 mL, Mucous Membrane, BID Pharmacy Communication, 1 EA, N/A, As Directed propofol additive* 1,000 mg [10 mcg/kg/min] + Premix (RASS) 100 mL Protonix, 40 mg= 1 EA, Slow IV Push, every 12 hours. Proventil 2.5 mg/3 mL (0.083%) inhalation solution, 2.5 mg= 3 mL, NEB, every 4 hours. RT Sodium Chloride 0.9% 1,000 mL, 1000 mL, IV Sodium Chloride 0.9% 1,000 mL, 1000 mL, IV sodium chloride 0.9% flush, 10 mL, IV Push, every 12 hours. sodium chloride 0.9% flush, 20 mL, IV Push, As Directed, PRN vasopressin additive* 40 units [0.03 unit/min] + Premix Dextrose 5% Water* 100 mL Home Advair Diskus 100 mcg-50 mcg inhalation powder, 1 puffs, Inhale, BID,?Not taking Albuterol (Eqv-Proventil HFA) 90 mcg/inh inhalation aerosol, 2 puffs, Inhale, every 6 hr, PRN aspirin 325 mg oral tablet, 325 mg= 1 tab, Oral, QHS cholecalciferol 1000 intl units oral tablet, 25 mcg= 1 tab, Oral, Daily Fish Oil 1000 mg oral capsule, 1000 mg= 1 cap, Oral, Daily Flomax 0.4 mg oral capsule, 0.4 mg= 1 cap, Oral, Daily Lipitor 80 mg oral tablet, 80 mg= 1 tab, Oral, QHS lisinopril 2.5 mg oral tablet, 2.5 mg= 1 tab, Oral, Daily Metoprolol Succinate ER 25 mg oral tablet, extended release, 25 mg= 1 tab, Oral, Daily Plavix 75 mg oral tablet, 75 mg= 1 tab, Oral, every evening Spiriva 18 mcg inhalation capsule, 18 mcg= 1 cap, Inhale, Daily,?Not taking INTAKE AND OUTPUT: ?? This visit (24 hour periods starting at 06:00 PDT)? 12/07/22 *?? 12/06/22?? 12/05/22?? Total Summary?Intake mL?? 85?? 4,407.072?? 1,482.42?Output mL?? --?? 3,655?? --?Fluid Balance ?? 85?? 752.072?? 1,482.42?? Intake (18)?Lactated Ringers 1,000 mL mL?? --?? 950?? --?Lactated Ringers Injection mL?? --?? 1,500?? 1,000?Sodium Chloride 0.9%, vancomycin mL?? --?? 143.33?? 156.67?ceftriaxone mL?? --?? 50?? --?etomidate mL?? --?? --?? 5?fentaNYL 1,000 mcg [25 mcg/hr] + Premix Sodium Chloride 0.9% 100 mL mL?? --?? 215?? 18.75?iopamidol mL?? --?? --?? 194?magnesium sulfate mL?? --?? 200?? --?metoclopramide mL?? --?? 6?? --?norepinephrine 16 mg [0.01 mcg/kg/min] + Dextrose 5% Water 250 mL mL?? --?? 39.486?? --?norepinephrine 4 mg [0.01 mcg/kg/min] + Premix Dextrose 5% Water 250 mL mL?? --?? 564.384?? --?piperacillin-tazobactam mL?? 75?? 225?? 100?potassium chloride mL?? --?? 200?? --?propofol 1,000 mg [10 mcg/kg/min] + Premix* 100 mL mL?? --?? 93.122?? --?rocuronium mL?? --?? --?? 8?sodium chloride mL?? 10?? 10?? --?vancomycin mL?? --?? 150?? --?vasopressin 40 units [0.03 unit/min] + Premix Dextrose 5% Water 100 mL mL?? --?? 60.75?? --?Total?? 85?? 4,407.072?? 1,482.42?? Output (3)?Rectal mL?? --?? 900?? --?Urethral Indwelling/Continuous 16 Fr mL?? --?? 2,055?? --?Urine Voided mL?? --?? 700?? --?Total?? --?? 3,655?? --?? Counts (3)?GI Tube Output: mL?? --?? 900?? --?Urinary Catheter Output: mL?? --?? 2,055?? --?Urine Voided mL?? --?? 700?? --? * This column has not completed the indicated time period.?? Product Manager Services Utilized [_] Phone [_] Skype [_] Face to Face Electronically Signed on 12/07/22 09:59 AM Lanza, DO (Antonio Mcdermott Electronically Signed on 12/07/22 11:59 AM MD Sanchez Dale J * MD Sanchez Dale J: PERFORM Event Display: Critical Care Progress Note Authored Date: I have examined this patient and confirmed the essential components of the history and physical exam. I agree with the plan of care as documented by the resident. See resident's note for complete details of service.? MD Sanchez Dale J: I spent??35 minutes of critical care time with this patient not including reportable procedures. There was an acute impairment of an organ system with a high probability of imminent or life threatening deterioration in the patient's condition. Interventions and changes required in the course of therapy are located in the chart. Time involved was spent in direct patient care, reviewing ancillary data, old records, consulting with decision makers, other doctors, giving orders and documenting. Electronically Signed on 12/07/22 12:00 PM MD Sanchez Dale J Procedure note * MD New William: PERFORM, MODIFY Event Display: Procedure Note Authored Date: Name of Procedure:??EGD? Endoscopist: ??James New ?? Pre-procedure assessment: ASA??4 Time out was performed confirming right patient and procedure. History reviewed. ?? Sedation: Per ICU team ?? Instrument:??[id number]? EGD Pre-procedure Diagnosis:??Melena, AMS, Hypotension, Anemia Hgb 5.6,??s/p EGD 12/06 with large food debris throughout entire stomach s/p Reglan x3 doses ?? 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 Old blood mixed with food was present in the proximal stomach. ?? Technique: The patient was hooked to a BP, cardiac monitors and pulse oximeter. After adequate sedation, the gastroscope was introduced through the bite block under direct visualization and the esophagus, stomach and duodenum were intubated without difficulty. Findings were as documented. The patient tolerated the procedure well, residual CO2 was suctioned and the scope was withdrawn. ?? Complications: none ?? Blood Loss:??none ?? Specimens:??none _ _ ?? Recommendations: 1.??Avoid NSAID's 2.??Continue PPI??BID??therapy 3.??Monitor for a minimum of 72 hours total in hospital for GI bleed 4. Continue care per ICU team 5. Can consider repeat EGD if there is continued concern for??active GI bleed (drop in hemoglobin, blood in OG tube, persistent melena, etc.) 6. Would need Erythromycin 250 mg IV over 30 min or Reglan 10 mg IV evening before and morning of procedure if inpatient EGD is needed 7.??Recommend outpatient EGD??to evaluate proximal stomach and rule out malignancy,??ulcers, etc. if no further evidence of active bleeding ? Electronically Signed on 12/07/22 11:13 AM MD New William Electronically Signed on 12/07/22 11:14 AM MD New William * MD New William: PERFORM Event Display: Procedure Note Authored Date: [id number] Name of Procedure:??EGD? Endoscopist: ??James New ?? Pre-procedure assessment: ASA??IV Time out was performed confirming right patient and procedure. History reviewed. ?? Sedation: Per ICU ?? Instrument:??[id number]-[id number]? EGD Pre-procedure Diagnosis:??Melena, AMS, Hypotension, Anemia Hgb 5.6 ?? EGD Post-procedure Diagnosis:??Small amount??of old??blood limiting??evaluation of??the mucosa,??possible Caro's??esophagus seen??in the??distal esophagus Large blood??clots and food??debris throughout??the entire??stomach, bulb, and??2nd portion??of the??duodenum limiting??visualization of??the underlying??mucosa No significant active or recent hemorrhage seen ? Technique: The patient was hooked to a BP, cardiac monitors and pulse oximeter. After adequate sedation, the gastroscope was introduced through the bite block under direct visualization and the esophagus, stomach and duodenum were intubated without difficulty. Findings were as documented. The patient tolerated the procedure well, residual CO2 was suctioned and the scope was withdrawn. ?? Complications: none ?? Blood Loss:??none ?? Specimens:??none _ _ ?? Recommendations: 1.??If no??QT prolongation,??suggest Erythromycin??250 mg??IV?over 30 minutes in the morning 12/07/22.?? If unable to get Erythromycin can consider Reglan IV this afternoon and 12/07 AM if no QT prolongation 2.??Continue PPI??IV BID 3.??Plan for??repeat EGD??12/07/22 4.??Continue care??per??ICU team ? Electronically Signed on 12/06/22 03:14 PM MD New William Gastroenterology Consult note * MD New William: PERFORM, MODIFY Event Display: Gastroenterology Consultation Authored Date: [id number] Consult Requested By ED Reason for Consultation Melena Assessment/Plan Altered mental status??(R41.82: Altered mental status, unspecified) Anemia??(D64.9: Anemia, unspecified) ??-Monitor H/H, transfuse for Hgb >7-8 GI bleed??(K92.2: Gastrointestinal hemorrhage, unspecified) -DDx: Upper GI bleed such as PUD, Esophagitis, AVM's, Dieulafoy's, Neoplasms, etc. -Monitor H/H -Continue PPI IV BID -Maintain NPO -Will plan for EGD On mechanically assisted ventilation??(Z99.11: Dependence on respirator [ventilator] status) Pyelonephritis??(N12: Tubulo-interstitial nephritis, not specified as acute or chronic) Urinary tract infection??(N39.0: Urinary tract infection, site not specified) Subjective/History of Present Illness 77-year-old male with PMH of HTN, COPD, prior CVA in 11/2021, left ICA stenosis status post CEA, admitted for altered mental status and melena, intubated for GCS 5 and airway protection, hemoglobin 5.6, hypotension on vasopressors.?? GI consulted for evaluation of GI bleed. ?? History obtained from family ( Alondra and Rafaela granddaughter) since patient is intubated.??Reportedly had melena at home but no prior history of GI bleeds. Takes Eliquis at home.?? Reportedly has a history of colonoscopy but no EGD.?? Denies hematemesis. no FH of colon cancer Denies NSAID's or alcohol use. Chief Complaint BIBA from home for slurred speech and generalized weakness on EMS arrival pt sitting on bucket withdark, watery, bloody stool noted in bucket, hypotensive 80s systolic, gcs 13 on arrival, nash present on admission Objective/Physical Exam Vitals & Measurements T:??36.8?C (Bladder)?? TMIN:??35.6?C (Rectal)?? TMAX:??36.8?C (Bladder)?? HR:??104(Pulse)?? HR:??104(Monitored)?? RR:??22?? BP:??109/53?? BP:??131/52(Line)?? SpO2:??100%?? WT:??77.500??kg?? General: [intubated, no responding to commands,??no acute distress]. HENT: [No scleral icterus]. Abdomen: [Soft, non-tender, non-distended]. Review of Systems Unable to be obtained since patient is intubated and AMS Primary Care Provider Misc, PCP Unknown Problem List/Past Medical History Ongoing Chronic diastolic CHF (congestive heart failure) Chronic obstructive pulmonary disease HLD (hyperlipidemia) Hypertension Prediabetes Stenosis of left internal carotid artery Tobacco dependence Historical No qualifying data Procedure/Surgical History Colonoscopy Medications Inpatient Atrovent 0.02% 500 mcg/2.5 mL solution for nebulization, 500 mcg= 2.5 mL, NEB, every 4 hours. RT chlorhexidine 2% topical pad, 1 izabella, Topical, every evening Dextrose 10% Water Bolus*, 100 to 150 mL, IV Bolus, every 15 min, PRN dextrose 50% Syringe, 12.5 g= 25 mL, IV Push, every 15 min, PRN fentaNYL additive* 1,000 mcg [25 mcg/hr] + Premix Sodium Chloride 0.9% 100 mL glucagon, 1 mg= 1 EA, IM, As Directed, PRN HumaLOG., Per Glucommander, Subcut, every 4 hours. HumaLOG., Per Glucommander, Subcut, As Directed, PRN Lactated Ringers 1,000 mL, 1000 mL, IV Lantus, Per Glucommander, Subcut, BID magnesium sulfate, 1 g= 100 mL, IV Piggyback, Once norEPINEPHrine additive* 4 mg [0.01 mcg/kg/min] + Premix Dextrose 5% Water* 250 mL Notification: Consult to Pharmacy - VANCOmycin dose per pharmacy, 1 EA, N/A, As Directed Peridex 0.12% mucous membrane liquid, 0.018 g= 15 mL, Mucous Membrane, BID Pharmacy Communication, 1 EA, N/A, As Directed propofol additive* 1,000 mg [10 mcg/kg/min] + Premix (RASS) 100 mL Protonix, 40 mg= 1 EA, Slow IV Push, every 12 hours. Proventil 2.5 mg/3 mL (0.083%) inhalation solution, 2.5 mg= 3 mL, NEB, every 4 hours. RT Reglan, 10 mg= 2 mL, IV Push, Once sodium chloride 0.9% flush, 10 mL, IV Push, every 12 hours. sodium chloride 0.9% flush, 20 mL, IV Push, As Directed, PRN vancomycin, 750 mg= 150 mL, IV Piggyback, every 18 hr Zosyn, 4.5 g= 100 mL, IV Piggyback, every 8 hours. Home Advair Diskus 100 mcg-50 mcg inhalation powder, 1 puffs, Inhale, BID,?Not taking Albuterol (Eqv-Proventil HFA) 90 mcg/inh inhalation aerosol, 2 puffs, Inhale, every 6 hr, PRN aspirin 325 mg oral tablet, 325 mg= 1 tab, Oral, QHS cholecalciferol 1000 intl units oral tablet, 25 mcg= 1 tab, Oral, Daily Fish Oil 1000 mg oral capsule, 1000 mg= 1 cap, Oral, Daily Flomax 0.4 mg oral capsule, 0.4 mg= 1 cap, Oral, Daily Lipitor 80 mg oral tablet, 80 mg= 1 tab, Oral, QHS lisinopril 2.5 mg oral tablet, 2.5 mg= 1 tab, Oral, Daily Metoprolol Succinate ER 25 mg oral tablet, extended release, 25 mg= 1 tab, Oral, Daily Plavix 75 mg oral tablet, 75 mg= 1 tab, Oral, every evening Spiriva 18 mcg inhalation capsule, 18 mcg= 1 cap, Inhale, Daily,?Not taking Allergies No Known Allergies Social History Alcohol Denies use, 12/01/2021 Electronic Cigarette/Vaping Never, 12/06/2022 Never, 04/17/2022 Tobacco Current every day smoker, Type: Cigarettes. per day 2 packs a day., 12/06/2022 Former smoker, Type: Cigarettes., 04/17/2022 Family History Family history is unknown Lab Results Labs??(Last four charted values) WBC ?H??20.98?(DEC 06)?H??17.09?(DEC 06) Hgb ?L??9.4?(DEC 06)?L??9.2?(DEC 06)?L??7.0?(DEC 06)?C??5.6?(DEC 06) Hct ?L??28.0?(DEC 06)?L??28.6?(DEC 06)?L??22.7?(DEC 06)?C??18.9?(DEC 06) Plt ?239?(DEC 06)?400?(DEC 06) Na ?138.0?(DEC 06)?139.0?(DEC 06) K ?3.8?(DEC 06)?3.8?(DEC 06) CO2 ?L??18.5?(DEC 06)?L??16.6?(DEC 06) Cr ?H??1.57?(DEC 06)?H??1.71?(DEC 06) BUN ?H??30?(DEC 06)?H??35?(DEC 06) Glucose Random ?H??170?(DEC 06)?H??221?(DEC 06) PT ?H??14.3?(DEC 06) INR ?H??1.38?(DEC 06) Imaging Results (Last 24 Hours) CTA Brain/Head ?? 12/06/22 03:27:27 IMPRESSION: CTA HEAD: 1. No aneurysm, stenosis or occlusion of the cerebral arterial vasculature. ?? CTA NECK: 1. No aneurysm, stenosis, occlusion or dissection of the arterial vasculature in the neck. 2. Minimal calcified atherosclerotic plaque involving the origin of the right internal carotid artery. 3. Retention cyst or polyp right maxillary sinus along with mild chronic inflammatory changes here. 4. Layering right pleural effusion, incompletely visualized. ?? DLP: 318.10 mGy-cm. CTDI: 8.30 mGy. ?? Note: All CT scans performed in the [facility] are performed using dose optimization techniques, including automated exposure control, iterative reconstruction, and adjustment of the mA and/or kV according to exam, patient size, and the body part being imaged. ?? Signed By: MD Baron Troy K ?? CT Brain/Head w/o Contrast ?? 12/06/22 03:27:27 IMPRESSION: 1. No visible acute intracranial abnormality. 2. Cerebral atrophy. 3. Periventricular and central white matter small vessel ischemic disease. 4. Old lacunar infarct left caudate head. 5. Old focal infarct in the right cerebellar hemisphere. 6. Poor pneumatization of the left mastoid air cells, congenital or secondary to chronic mastoid effusion/mastoiditis. Mild right mastoid effusion/mastoiditis. ?? DLP: 1008.90 mGy-cm. CTDI: 45.70 mGy. ?? Note: All CT scans performed in the [facility] are performed using dose optimization techniques, including automated exposure control, iterative reconstruction, and adjustment of the mA and/or kV according to exam, patient size, and the body part being imaged. ?? Signed By: MD Baron Troy K ?? XR Chest 1 View Portable ?? 12/06/22 11:13:13 IMPRESSION: A single frontal x-ray of the chest was performed and reveals the following: ?? Since the prior study there is a new left central line with the tip probably in the left brachiocephalic vein. Correlation suggested. Otherwise The pertinent lines and/or tubes remain unchanged in position when compared with the prior study. ?? Diffuse mild opacity persists unchanged without pneumothorax ?? Signed By: MD Carpenter Aaron J ?? XR Chest 1 View Portable ?? 12/06/22 03:04:04 IMPRESSION: A single frontal x-ray of the chest was performed and reveals the following: ?? Endotracheal tube and NG tube appear in good position. ?? Small pleural effusions are noted ?? Mild congestion is evident ?? There is no pneumothorax ?? Signed By: MD Carpenter Aaron J ?? CTA Abdomen and Pelvis ?? 12/06/22 03:27:27 IMPRESSION: 1. Moderately large stool burden in the colon. There is small amount of fluid in the right right colon. Mild fecal distention of the rectum. Query constipation/obstipation. No colonic wall thickeningis seen. 2. No small bowel obstruction. 3. Normal appendix. 4. Nash catheter in the decompressed urinary bladder. 5. Calcified granulomas in the spleen. 6. Punctate nonobstructing calcification in the right kidney. 7. Atherosclerotic calcifications of the abdominal aorta, common iliac arteries, external iliac arteries, common femoral arteries and proximal superficial femoral arteries, with variable mild to moderate stenosis. 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 Mild stenosis of the origin left renal artery is suggested. ?? DLP: 568.70 mGy-cm. CTDI: 8.80 mGy. ?? Note: All CT scans performed in the [facility] are performed using dose optimization techniques, including automated exposure control, iterative reconstruction, and adjustment of the mA and/or kV according to exam, patient size, and the body part being imaged. ?? Signed By: MD Baron Troy K ?? CT Chest W/ Contrast ?? 12/06/22 03:27:27 IMPRESSION: 1. Layering right pleural effusion, measuring up to 3.5 cm in thickness, with adjacent atelectasis. 2. Borderline vascular congestion. 3. 8mm noncalcified indeterminate subpleural nodule in the left lower lobe, possibly a granuloma. 4. Borderline cardiomegaly. 5. Atherosclerotic calcifications of the thoracic aorta. Mitral annulus calcifications are also seen. 6. Calcified mediastinal lymph nodes, largest one measuring 2.3 cm x 1.8 cm. Could reflect old granulomatous and/or/or fungal infection versus treated lymphoma. Favor the former, given small calcified right hilar lymph nodes and 6 mm calcified granuloma in the right lower lobe. ?? DLP: 907.60 mGy-cm. CTDI: 21.70 mGy. ?? Note: All CT scans performed in the [facility] are performed using dose optimization techniques, including automated exposure control, iterative reconstruction, and adjustment of the mA and/or kV according to exam, patient size, and the body part being imaged. ?? Signed By: MD Baron Troy K Product Manager Services Utilized [_] Phone [_] Skype [_] Face to Face Electronically Signed on 12/06/22 02:42 PM MD Shaq, James Critical care medicine procedure note * MD Lindsay Jeffrey K: MODIFY MD Lindsay Jeffrey K: MODIFY Event Display: Critical Care / Assistant Professor Of Geography Procedure Authored Date: [id number] Procedure Date 12/06/2022 08:58:28 Procedure Name Left internal jugular central venous catheter Consent Verbal consent by telephone from patient's , confirmed and signed by two nurses. Time Out Time out was performed and identified patient, site, and procedure. All present were in agreement Indication Hemodynamic instability Shock Medications Administered Review the nursing medication procedure log for this procedure Procedure Details Prior to the procedure the following was done in preparation: 1. Hand hygiene using soap or alcohol based pipe cleaner. 2. Insertion site was cleaned with chlorhexidine and allowed to dry. 3. Sterile gown, cap, mask and gloves were put on. 4. Maximal barrier precautions were accomplished by kit sterile drape, sterile towels, and 3/4 sterile sheet if needed. ?? A procedural Time Out was taken, during which the correct patient identity, side and site, procedure, patient position, implants and/or equipment were confirmed. ?? The site was then infiltrated with 1% Lidocaine. Ultrasound was used to initially locate the vein and guide insertion of the needle. The vein was cannulated and the central line guidewire was inserted through the needle, after which the needle was removed.?US was used to visualize the guidewire in the lumen of the vessel in the transverse and longitudinal plane.?The dilator was passed through the hemostasis valve of the introducer.?Both dilator & catheter were advanced in unison over the guidewire into the lumen of the blood vessel.??Guidewire was removed, and verbally/visually confirmed by nursing at bedside.??All ports aspirated and flushed demonstrating good blood return and flow.?The line was sutured in place and dressed in a sterile manner. ?? Site Used: left Internal Jugular Vein Complications: None CXRY Results: Reviewed with satisfactory position and no pneumothorax Line OK to Use: Yes Complications None. ?? Procedure performed under direct supervision of my attending Dr. Pa Lindsay. ?? Manav Vasquez MD Emergency Medicine PGY-2 Product Manager Services Utilized [_] Phone [_] Skype [_] Face to Face ?? Dr. Pa Lindsay Attestation: ?? I was present throughout all critical portions of the procedure. Electronically Signed on 12/06/22 11:39 AM MD Pedro (R)Manav Electronically Signed on 12/07/22 02:55 PM MD Neftali, Pa Carlson * MD Neftali, Pa Carlson: MODIFY MD Lindsay Jeffrey K: MODIFY Event Display: Critical Care / Assistant Professor Of Geography Procedure Authored Date: [id number] Procedure Date 12/06/2022 08:58:28 Procedure Name Right radial arterial line Consent Verbal consent by patient's spouse, confirmed by two RNs via telephone Time Out Time out was performed and identified patient, site, and procedure. All present were in agreement Indication Hemodynamic instability Medications Administered Review the nursing medication procedure log for this procedure Procedure Details Prior to the procedure the following was done in preparation:?? 1. Hand hygiene using soap or alcohol based pipe cleaner. 2. Insertion site was cleaned with chlorhexidine and allowed to dry. 3. Sterile cap, mask and gloves were put on. 4. Maximal barrier precautions were accomplished??with a??sterile drape.? A procedural Time Out was taken, during which the correct patient identity, side and site, procedure, patient position, implants and/or equipment were confirmed. ?? Lidocaine, 1%, was infiltrated into the area selected for arterial cannulation. Ultrasound was usedto locate the vessel and guide needle placement. The vessel was cannulated and the intra-arterial catheter was inserted, then sutured in place.? Site Used:Right Radial Artery ?? No complications were evident. Complications None. ?? My attending, Dr. Pa Lindsay, was readily available throughout the entirety of the procedure. ?? Manav Vasquez MD Emergency Medicine PGY-2 Product Manager Services Utilized [_] Phone [_] Skype [_] Face to Face ?? Dr. Pa Lindsay Attestation: ?? I was present throughout all critical portions of the procedure. Electronically Signed on 12/06/22 11:35 AM MD Pedro (R)Manav Electronically Signed on 12/07/22 02:54 PM MD Lindsay Jeffrey K History and physical note * MD Lindsay Jeffrey K: MODIFY MD Lindsay Jeffrey K: MODIFY, MODIFY, MODIFY, MODIFY, MODIFY, MODIFY, MODIFY Reece, MS, Jaskirat: MODIFY, MODIFY Reece, MS, Jaskirat: MODIFY, MODIFY Reece, MS, Jaskirat: MODIFY, MODIFY Reece, MS, Jaskirat: MODIFY, MODIFY Reece, MS, Jaskirat: MODIFY, MODIFY Reece, MS, Jaskirat: MODIFY, MODIFY Reece, MS, Jaskirat: MODIFY, MODIFY Reece, MS, Jaskirat: MODIFY, MODIFY Reece, MS, Jaskirat: MODIFY, MODIFY Reece, MS, Jaskirat: MODIFY, MODIFY Reece, MS, Jaskirat: MODIFY, MODIFY Reece, MS, Jaskirat: MODIFY, MODIFY Reece, MS, Jaskirat: MODIFY, MODIFY Reece, MS, Jaskirat: MODIFY, MODIFY Reece, MS, Jaskirat: MODIFY, MODIFY Reece, MS, Jaskirat: MODIFY, MODIFY Reece, MS, Jaskirat: MODIFY, MODIFY Reece, MS, Jaskirat: MODIFY, MODIFY Reece, MS, Jaskirat: MODIFY, MODIFY Reece, MS, Jaskirat: MODIFY, MODIFY Reece, MS, Jaskirat: MODIFY Lanza, DO (R), Antonio: MODIFY, MODIFY Lanza, DO (R), Antonio: MODIFY, MODIFY Lanza, DO (R), Antonio: MODIFY, MODIFY Lanza, DO (R), Antonio: MODIFY, MODIFY Lanza, DO (R), Antonio: MODIFY, PERFORM Lanza, DO (R), Antonio: PERFORM Event Display: History and Physical Authored Date: CHIEF COMPLAINT: BIBA from home for slurred speech and generalized weakness on EMS arrival pt sitting on bucket withdark, watery, bloody stool noted in bucket, hypotensive 80s systolic, gcs 13 on arrival, nash present on admission HISTORY OF PRESENT ILLNESS: Patient is a 77-year-old male with PMH of HTN, CHFpEF (70-75%), HLD, COPD, 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 ICA stenosis s/p L. endarterectomy w/o defeicits who was BIBA due to altered mental status, worsening generalized weakness, slurred speech, and black tarry, bloody stool. Per family, patient had been experiencing generalized weakness for 1 week with worsening last night. Slurred speech started approximately 1:30 AM and became unresponsive at 2:00 AM. Family reports that patient has been hypotensive the past couple of days, with his baseline near 120s/80s. Pt family reported patient was complaining of recent vision changes with mild??headache. Pt had been having worsening SOB over the past couple of days as well. Family denied patient having dark tarry stool or diarrhea, but EMS found patient sitting on bucket with dark watery bloody stool. Pt family denies history of ulcers, liver cirrhosis, alcohol use, past EGD/GI bleed,??nausea, vomiting, diarrhea, abdominal pain, fever, chills.?Per EMS, upon arrival??patient was GCS 5 initially and hypotensive with SBP in 80s. Patient was fluid resuscitated with improvement of GCS to 13. Per ED report,??upon arrival to ED, patient remained GCS 8-9 and was eventually??intubated for airway protection. Patient also given 3 units pRBC in EDgiven Hgb of 5.6 and gross melena. Initial labs revealed acidosis with??pH of 7.22 and??lactic acidof 15 on VBG.??Initial bicarb level of 16.6 with elevated anion gap of 27.??CBC showed leukocytosisof 17??and??significantly low??Hgb of 5.6. BUN 35??and creatinine 1.71, indicative of ZIGGY likely??prerenal due to??hypoperfusion??secondary??to??acute GI bleed.??Normal LFTs with no history of cirrhosis. Patient was treated with Protonix empirically. UA with pyuria (WBC 87) and hematuria (RBC 101).??ED also??initiated further workup for suspected sepsis and gave Vanc and Zosyn empirically. Strokeactivation was also called in the ED given history of CVA and slurring of speech but patient was deemed not a candidate for tPA given active upper GI bleed. CT Head was ordered along with CTA??Head and Neck??which showed no acute intracranial hemorrhage, large vessel occlusion, stenosis, dissection. CXR showed small pleural effusion. CT??Chest??ordered which showed??R. sided??pleural effusion. CTA Abdomen/Pelvis was ordered in ED due to concern for mesenteric ischemia but did not identify any acute intraabdominal processes. At this point, patient remained hypotensive and was started on Levophed. Given his intubation status and hemodynamic instability from acute upper GI bleed, patient was admitted to ICU. ?? In the ICU, patient remains sedated on Fentanyl and Propofol. Given persistent hypotension, consent for arterial line and central line was obtained from . Both lines were placed??and??central line??location was confirmed with with CXR. Continuing Levophed for BP support.??Continuous??monitoring of??labs with gradual improvement in acidosis. pH of 7.32, lactate of 2.5, bicarb of 18.5, and anion gap of 21. Hgb improved to 9.2. WBC uptrending with leukocytosis of 21. ZIGGY has been improving with most recent BUN of 30 and creatinine of 1.57. Further history from family reveals that patient takes Protonix at home but does not have history of GI bleeds. Patient takes Eliquis at home, possibly due to history of A. fib but could not confirm. Patient has had colonoscopies in the past but no endoscopy. GI was consulted. Plan to do EGD today. REVIEW OF SYSTEMS: A total of 10 systems were reviewed and??found to be negative except as documented above in the chart. PHYSICAL EXAM: Vitals & Measurements T:??36.7?C (Bladder)?? TMIN:??35.6?C (Rectal)?? TMAX:??36.7?C (Bladder)?? HR:??109(Monitored)?? RR:??22?? BP:??85/55?? SpO2:??98%?? WT:??77.500??kg?? General: Partially sedated, intubated. Eye: PERRL, 2mm bilaterally with R side less reaction,??normal conjunctiva, no scleral icterus. HENT: No JVD,??dry oral mucosa. Lungs:??mechanical ventilation breath sounds b/l, equal chest rise b/l. Heart:??Normal ??rate,??regular??rhythm, no murmur auscultated. Circulatory:??No LE edema noted bilaterally Abdomen: Soft, diffuse??tenderness to palpation,??non-distended, no masses, rectal tube in place, black tarry stool visualized in stool bag. : Nash catheter in place draining??dark yellow colored??urine. Skin: Skin is warm and dry, no rashes or lesions. Neurologic/psych: Partially sedated, pupils as above, responds to command. LABS: Labs??(Last four charted values) WBC ?H??20.98?(DEC 06)?H??17.09?(DEC 06) Hgb ?L??9.2?(OCT 27)?L??7.0?(OCT 27)?C??5.6?(OCT 27) Hct ?L??28.6?(OCT 27)?L??22.7?(OCT 27)?C??18.9?(OCT 27) Plt ?239?(OCT 27)?400?(OCT 27) Na ?138.0?(OCT 27)?139.0?(OCT 27) K ?3.8?(OCT 27)?3.8?(OCT 27) CO2 ?L??18.5?(OCT 27)?L??16.6?(OCT 27) Cr ?H??1.57?(OCT 27)?H??1.71?(OCT 27) BUN ?H??30?(OCT 27)?H??35?(OCT 27) Glucose Random ?H??170?(OCT 27)?H??221?(OCT 27) PT ?H??14.3?(OCT 27) INR ?H??1.38?(OCT 27) IMAGING: CTA Brain/Head ?? 12/06/22 03:27:27 IMPRESSION: CTA HEAD: 1. No aneurysm, stenosis or occlusion of the cerebral arterial vasculature. ?? CTA NECK: 1. No aneurysm, stenosis, occlusion or dissection of the arterial vasculature in the neck. 2. Minimal calcified atherosclerotic plaque involving the origin of the right internal carotid artery. 3. Retention cyst or polyp right maxillary sinus along with mild chronic inflammatory changes here. 4. Layering right pleural effusion, incompletely visualized. ?? DLP: 318.10 mGy-cm. CTDI: 8.30 mGy. ?? Note: All CT scans performed in the [facility] are performed using dose optimization techniques, including automated exposure control, iterative reconstruction, and adjustment of the mA and/or kV according to exam, patient size, and the body part being imaged. ?? Signed By: MD Baron Troy K ?? CT Brain/Head w/o Contrast ?? 12/06/22 03:27:27 IMPRESSION: 1. No visible acute intracranial abnormality. 2. Cerebral atrophy. 3. Periventricular and central white matter small vessel ischemic disease. 4. Old lacunar infarct left caudate head. 5. Old focal infarct in the right cerebellar hemisphere. 6. Poor pneumatization of the left mastoid air cells, congenital or secondary to chronic mastoid effusion/mastoiditis. Mild right mastoid effusion/mastoiditis. ?? DLP: 1008.90 mGy-cm. CTDI: 45.70 mGy. ?? Note: All CT scans performed in the [facility] are performed using dose optimization techniques, including automated exposure control, iterative reconstruction, and adjustment of the mA and/or kV according to exam, patient size, and the body part being imaged. ?? Signed By: MD Baron Troy K ?? XR Chest 1 View Portable ?? 12/06/22 03:04:04 IMPRESSION: A single frontal x-ray of the chest was performed and reveals the following: ?? Endotracheal tube and NG tube appear in good position. ?? Small pleural effusions are noted ?? Mild congestion is evident ?? There is no pneumothorax ?? Signed By: MD Pauline, Luis A Bryson ?? CTA Abdomen and Pelvis ?? 12/06/22 03:27:27 IMPRESSION: 1. Moderately large stool burden in the colon. There is small amount of fluid in the right right colon. Mild fecal distention of the rectum. Query constipation/obstipation. No colonic wall thickeningis seen. 2. No small bowel obstruction. 3. Normal appendix. 4. Nash catheter in the decompressed urinary bladder. 5. Calcified granulomas in the spleen. 6. Punctate nonobstructing calcification in the right kidney. 7. Atherosclerotic calcifications of the abdominal aorta, common iliac arteries, external iliac arteries, common femoral arteries and proximal superficial femoral arteries, with variable mild to moderate stenosis. 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 Mild stenosis of the origin left renal artery is suggested. ?? DLP: 568.70 mGy-cm. CTDI: 8.80 mGy. ?? Note: All CT scans performed in the [facility] are performed using dose optimization techniques, including automated exposure control, iterative reconstruction, and adjustment of the mA and/or kV according to exam, patient size, and the body part being imaged. ?? Signed By: MD Baron Troy K ?? CT Chest W/ Contrast ?? 12/06/22 03:27:27 IMPRESSION: 1. Layering right pleural effusion, measuring up to 3.5 cm in thickness, with adjacent atelectasis. 2. Borderline vascular congestion. 3. 8mm noncalcified indeterminate subpleural nodule in the left lower lobe, possibly a granuloma. 4. Borderline cardiomegaly. 5. Atherosclerotic calcifications of the thoracic aorta. Mitral annulus calcifications are also seen. 6. Calcified mediastinal lymph nodes, largest one measuring 2.3 cm x 1.8 cm. Could reflect old granulomatous and/or/or fungal infection versus treated lymphoma. Favor the former, given small calcified right hilar lymph nodes and 6 mm calcified granuloma in the right lower lobe. ?? DLP: 907.60 mGy-cm. CTDI: 21.70 mGy. ?? Note: All CT scans performed in the [facility] are performed using dose optimization techniques, including automated exposure control, iterative reconstruction, and adjustment of the mA and/or kV according to exam, patient size, and the body part being imaged. ?? Signed By: MD Baron Troy K ASSESSMENT/PLANS: Altered mental status??(R41.82: Altered mental status, unspecified) GI bleed??(K92.2: Gastrointestinal hemorrhage, unspecified) On mechanically assisted ventilation??(Z99.11: Dependence on respirator [ventilator] status) Pyelonephritis??(N12: Tubulo-interstitial nephritis, not specified as acute or chronic) Urinary tract infection??(N39.0: Urinary tract infection, site not specified) Orders: Restraint Initiate Non Violent (Protective) ?? Neuro #Metabolic encephalopathy #AMS with slurred speech #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 Endarterectomy #Sedation - On Fentanyl and Propofol - RAAS score -1 to -2 goal - CT Head??and CTA Head and Neck show no acute intracranial hemorrhage, large vessel occlusion, stenosis, dissection - Given history of CVA, consider starting Lipitor - Need to determine patient anticoagulation use of Eliquis ? Cardiovascular #Hemorrhagic shock vs distributive shock due to upper GI bleed vs septic shock #History of HFpEF (EF 70-75%) #History of L. 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 Endarterectomy #HTN #HLD - On Levophed, MAP goal >60 - Troponin negative - Placed right radial??arterial line and left central IJ line today - Holding BP meds given persistent??hypotension - Considering septic shock as well given leukocytosis, hypothermia,??hypotension, and??tachycardia.Given Vanc and Zosyn in ED. - Previous echo in 2021 showed EF 70-75%,??mild aortic stenosis, and trace tricuspid regurgitation.?? - October 2022??Echo was performed at NH where family was told he has?? valve problems - Once patient stabilizes consider getting echo?? - F/u blood cultures ?? #Possible history of A. fib - Takes Eliquis at home. Holding for now given acute upper GI bleed. ?? Respiratory?? #History of COPD #History of chronic tobacco use #Respiratory acidosis likely secondary to COPD #Mechanical Ventilation - MV settings: VC/AC, RR-22, TV-450, PEEP-6, FiO2-50 - Per family, patient has been smoking since age of 8. Currently smokes 2 ppd. - Start Albuterol and Atrovent??nebulizer??treatment - Monitor ABG for improvement in acidosis ?? #Right sided pleural effusion #Leukocytosis #Possible Pneumonia - CXR shows mild pleural effusion. CT chest confirms right sided pleural effusion. - Order respiratory BioFire and respiratory cultures - Received Vanc and Zosyn in ED. Continue Vanc 750 mg daily??and Zosyn 4.5 g q8h for 7 days. -??Given Rocephin x1 - Follow with daily CXR and CBC ?? Gastrointestinal #Acute blood loss anemia #Upper GI bleed with melena #Hemorrhagic shock - Given 3 units of pRBC and??1L bolus of LR in ED.??Hgb improved to 9.2. - Hgb and Hct q6h - Start Protonix 40 mg BID - Reglan 10 mg IV once, QTc was 499, holding until??Mg returns - Low intermittent suction of OG-tube - GI consulted. Plan to do EGD today. - Consider blood transfusion if Hgb<7 and plt transfusion if plt<50 with active bleed ?? Renal #ZIGGY, likely prerenal due to hypoperfusion secondary to acute GI bleed #Anion gap metabolic acidosis #Lactic acidosis - ZIGGY improving after fluid resuscitation - Strict I/O - Daily renal panel - Continue mIVF - ABG q6h ?? #UTI with pyuria and hematuria #Chronic indwelling catheter - Nash catheter replaced this morning in ED - Given Vanc and Zosyn empirically in ED. Continue Vanc 750 mg daily??and Zosyn 4.5 g q8h for 7 days. - Given Rocephin x1 - Urine cultures pending ?? #Possible history of BPH - Takes Tamsulosin at home. Hold for now. ?? Heme/ID #Leukocytosis #Hypothermia #Septic shock vs. Pneumonia vs. UTI - Continue Vanc 750 mg daily??and Zosyn 4.5 g q8h for 7 days. - F/u blood cultures, urine cultures, respiratory BioFire, and respiratory cultures ?? #Acute blood loss anemia - See GI above ?? Endo #Hyperglycemia - Takes Metformin at home - Glucommander setting for glycemic control for critical ill patient ?? MSK #History of unspecified skin cancer s/p surgical removal - Per family, patient had unknown type of skin cancer on upper back which was removed surgically 30+ years ago ?? Fluids: IV LR 50 cc/hr Electrolytes: will replete PRN Nutrition: NPO for EGD Antibiotics:??Vanc and Zosyn DVT PPx: SCDs, holding chemoprophylaxis??given acute upper GI bleed GI??PPX: Protonix Consults: GI consulted (Dr. New) Dispo: Maintain ICU level of care Code Status: Full code as of right now. ??prefers no??advanced life support if prognosis seems poor. Next of??Emergency contact:?? (Alondra), Granddaughter (Rafaela)??-??, home phone ?? Patient was discussed with my attending, ??Neftali. ?? Lars Peña [facility] [employer] in [place] ?? Patient was discussed with my attending, Dr. Pa Lanza D.O. [phone] PGY-1 Parks Worker ATTENDING PHYSICIAN STATEMENT: ?? Dr. Pa Lindsay Attestation: ?? I have examined this patient and confirmed the essential components of the history and physical exam. I agree with the plan of care as??discussed during rounds and document??by the resident and amended herein by me. See residents note for complete details of service.? Critical Care Time:?33 Minutes This Critical Care time was to provide documentation, evaluate, manage and maintain or prevent deterioration of the organ systems and problems noted above. This critical care time does not include time I spent performing procedures that are reported separately or time spent by previous providers. Plan of care discussed with bedside RN, pharmacy,??and charge authorizer. ?? Primary Care Provider Misc, PCP Unknown Medical: Ongoing Chronic diastolic CHF (congestive heart failure) Chronic obstructive pulmonary disease HLD (hyperlipidemia) Hypertension Prediabetes Stenosis of left internal carotid artery Tobacco dependence Historical No qualifying data Allergies: No Known Allergies Medications: Inpatient chlorhexidine 2% topical pad, 1 izabella, Topical, every evening fentaNYL additive* 1,000 mcg [25 mcg/hr] + Premix Sodium Chloride 0.9% 100 mL Lactated Ringers 1,000 mL, 1000 mL, IV norEPINEPHrine additive* 4 mg [0.01 mcg/kg/min] + Premix Dextrose 5% Water* 250 mL propofol additive* 1,000 mg [10 mcg/kg/min] + Premix (RASS) 100 mL Protonix, 40 mg= 1 EA, Slow IV Push, every 12 hours. Rocephin IVPB, 2 g= 50 mL, IV Piggyback, every 24 hours. Home Advair Diskus 100 mcg-50 mcg inhalation powder, 1 puffs, Inhale, BID,?Not taking Albuterol (Eqv-Proventil HFA) 90 mcg/inh inhalation aerosol, 2 puffs, Inhale, every 6 hr, PRN aspirin 325 mg oral tablet, 325 mg= 1 tab, Oral, QHS cholecalciferol 1000 intl units oral tablet, 25 mcg= 1 tab, Oral, Daily Fish Oil 1000 mg oral capsule, 1000 mg= 1 cap, Oral, Daily Flomax 0.4 mg oral capsule, 0.4 mg= 1 cap, Oral, Daily Lipitor 80 mg oral tablet, 80 mg= 1 tab, Oral, QHS lisinopril 2.5 mg oral tablet, 2.5 mg= 1 tab, Oral, Daily Metoprolol Succinate ER 25 mg oral tablet, extended release, 25 mg= 1 tab, Oral, Daily Plavix 75 mg oral tablet, 75 mg= 1 tab, Oral, every evening Spiriva 18 mcg inhalation capsule, 18 mcg= 1 cap, Inhale, Daily,?Not taking FAMILY HISTORY: Family history is unknown SOCIAL HISTORY: Alcohol Denies use, 12/01/2021 Electronic Cigarette/Vaping Never, 12/06/2022 Never, 04/17/2022 Tobacco Current every day smoker, Type: Cigarettes. per day 2 packs a day., 12/06/2022 Former smoker, Type: Cigarettes., 04/17/2022 Product Manager Services Utilized [_] Phone [_] Skype [_] Face to Face Electronically Signed on 12/06/22 02:40 PM DO Pool (R), Antonio Electronically Signed on 12/06/22 02:41 PM DO Pool (R), Antonio Electronically Signed on 12/07/22 03:00 PM MD Neftali, Pa Carlson Emergency department Education note * SABRINA Ruff, Dickson: PERFORM, SIGN, VERIFY Event Display: ED Patient Education Note Authored Date: Patient Education Instructions Name: Papito Joseph Current Date: 12/06/2022 08:58:33 The following sheet(s) are the Patient Education Leaflets for [facility] Emergency department Discharge summary * SABRINA Ruff, Dickson: PERFORM, SIGN, VERIFY Event Display: ED Patient Summary Authored Date: [id number] Emergency Department [facility] KELSIE [place] [email or web address] Discharge Instructions (Patient) Name: Papito Joseph? :?1945 ? Diagnosis: Altered mental status; GI bleed; On mechanically assisted ventilation; Pyelonephritis; Urinary tract infection Visit Date: 12/06/2022 02:24:00 Primary Care Provider: ? Name: Misc, PCP Unknown ? Phone: Emergency Department Providers: Primary Physician: MD Wade, [facility] would like to thank you for allowing us to assist you with your healthcare needs. Thefollowing instructions include patient education materials, follow-up instructions, prescriptions and information regarding your injury/illness. Comment?? Allergies:??No Known Allergies Medication Information: [facility] ED Physicians provided you with a complete list of medications post discharge. ??If you have been instructed to stop taking a medication, please ensure you also follow up with this information to your Primary Care Physician.?? Unless otherwise noted, please continue to take medications as prescribed prior to your Emergency Room visit.?? Any specific questions regarding your chronic medications and dosages should be discussed with your physician(s) and pharmacist. ??New Medications and Prescriptions None Medications That Were Changed - Changes Shown Below None Medications That Have Not Changed Other Medications albuterol (Albuterol (Eqv-Proventil HFA) 90 mcg/inh inhalation aerosol) 2 Puffs Inhale (breathe in)every 6 hours as needed shortness of breath or wheezing. Refills: 0. Last Dose: Next Dose: aspirin (aspirin 325 mg oral tablet) 1 tab Oral (given by mouth) At Bedtime. Refills: 0. Last Dose: Next Dose: atorvastatin (Lipitor 80 mg oral tablet) 1 tab Oral (given by mouth) At Bedtime. Refills: 0. Last Dose: Next Dose: cholecalciferol (cholecalciferol 1000 intl units oral tablet) 1 tab Oral (given by mouth) Daily. Refills: 0. Last Dose: Next Dose: clopidogrel (Plavix 75 mg oral tablet) 1 tab Oral (given by mouth) every evening. Refills: 0. Last Dose: Next Dose: fluticasone-salmeterol (Advair Diskus 100 mcg-50 mcg inhalation powder) 1 Puffs Inhale (breathe in)2 times a day. Refills: 0. Last Dose: Next Dose: lisinopril (lisinopril 2.5 mg oral tablet) 1 tab Oral (given by mouth) Daily. Refills: 0. Last Dose: Next Dose: metoprolol (Metoprolol Succinate ER 25 mg oral tablet, extended release) 1 tab Oral (given by mouth) Daily. Refills: 0. Last Dose: Next Dose: omega-3 polyunsaturated fatty acids (Fish Oil 1000 mg oral capsule) 1 Capsules Oral (given by mouth) Daily. Last Dose: Next Dose: tamsulosin (Flomax 0.4 mg oral capsule) 1 Capsules Oral (given by mouth) Daily. Refills: 0. Last Dose: Next Dose: tiotropium (Spiriva 18 mcg inhalation capsule) 1 Capsules Inhale (breathe in) Daily. use two inhalations of one capsule for each dose. Refills: 0. Last Dose: Next Dose: Stop Taking the Following None Additional Medications Reviewed During Your Visit None If you have been given medications or prescription in the Emergency Department??? Many medications can make you feel sleepy, impair your ability to drive, or effect your ability to make good decisions. Some of these medicines can even make you stop breathing when you go to sleep, particularly if several different medicines are combined. For this reason, we ask that you arrange for someone else togive you a ride home, do not operate machinery or make important decisions, and do not take any sleeping pills, pain pills, or drink alcohol for at least 4-6 hours from the time you leave the emergency department. It is also important to know that the use of narcotic medications can be habit forming. Major Tests: The following tests were performed during your ED visit: Radiology Orders: CT Brain/Head w/o Contrast 12/06/22 3:08:00 PDT, Stroke, Reason: Neuro deficit, acute, stroke suspected, Consulting Dr: MD Wade, [place], Transport Mode: Ambulatory CT Chest W/ Contrast 12/06/22 3:09:00 PDT, Stat, Reason: hypotensive, altered, GI bleed, tendernessto palpation to abdomen, Consulting Dr: MD Wade, [place], Transport Mode: Ambulatory CTA Abdomen and Pelvis 12/06/22 3:09:00 PDT, Stat, Reason: hypotensive, altered, GI bleed, tenderness to palpation to abdomen, Consulting Dr: MD Wade, [place], Transport Mode: Ambulatory CTA Brain/Head 12/06/22 3:08:00 PDT, Stroke, Reason: Neuro deficit, acute, stroke suspected, Consulting Dr: MD Wade, [place], Transport Mode: Ambulatory CTA Neck 12/06/22 3:08:00 PDT, Stroke, Reason: Neuro deficit, acute, persistent or progressing, Consulting Dr: MD Wade, [place], Transport Mode: Ambulatory Electrocardiogram ED 12/06/22 3:08:00 PDT, Stat, Cerebrovascular Accident [CVA], Ambulatory, Stop date 12/06/22 3:08:00 PDT Electrocardiogram ED 12/06/22 2:44:00 PDT, Stat, Ambulatory, Stop date 12/06/22 2:44:00 PDT XR Chest 1 View Portable 12/06/22 2:50:00 PDT, Stat, Reason: Difficulty breathing, Transport Mode: Ambulatory XR Chest 1 View Portable 12/06/22 7:01:00 PDT, In AM, Reason: ET tube placement, Transport Mode: Ambulatory Laboratory Orders: .Automated Diff 12/06/22 2:50:00 PDT, Blood, Stat, Once, Nurse collect, [id number] .Automated Diff 12/06/22 4:11:23 PDT, Blood, ST, Collected, Once, [id number] .Estimated Glomerular Filtration Rate 12/06/22 2:58:00 PDT, Blood, Stat, Collected, Once, Nurse collect, [id number] .Estimated Glomerular Filtration Rate 12/06/22 4:11:00 PDT, Blood, ST, Collected, Once, [id number] .Estimated Glomerular Filtration Rate Corrected 12/06/22 4:11:00 PDT, Blood, ST, Collected, Once, [id number] ABG Alert Panel 12/07/22 3:30:00 PDT, Blood, AM Draw (Inpatient Only), Daily, for 45 days ABO/Rh Automated 12/06/22 2:58:00 PDT, Blood, Stat, Collected, Once, Nurse collect, [id number] ABO/Rh Retype 12/06/22 4:11:23 PDT, Blood, ST, Collected, Once ABOV 12/06/22 2:58:00 PDT, Blood, Stat, Collected, Collected By: Zackary BURRIS, Nurse collect, 3 mL Lebam/*A*/ Ammonia Level 12/06/22 2:54:00 PDT, Blood, Stat, Once, Nurse collect Antibody Screen 12/06/22 2:58:00 PDT, Blood, Stat, Collected, Collected By: Zackary BURRIS, Nurse collect, 3 mL Lebam/*A*/ Biofire Pneumonia Panel [facility] 12/06/22 7:59:32 PDT, ST Collect, Collected, Once Blood Culture 12/06/22 7:57:55 PDT, ST collect, ST - Stat ST, Collected Blood Culture 12/06/22 7:57:55 PDT, ST collect, ST - Stat ST, Collected CBC with Diff 12/06/22 4:11:23 PDT, Blood, ST, Collected, Once CBC with Diff 12/06/22 2:50:00 PDT, Blood, Stat, Once, Nurse collect CBC with Differential 12/07/22 3:30:00 PDT, Blood, AM Draw (Inpatient Only), Daily, for 45 days CMP 12/06/22 2:50:00 PDT, Blood, Stat, Once, Nurse collect CMP 12/06/22 4:11:23 PDT, Blood, ST, Collected, Once Crossmatch 12/06/22 2:58:00 PDT, Blood, Stat, Collected, Collected By: Zackary BURRIS, Nurse collect, 3 mL Lebam/*A*/ Hgb and Hct. 12/06/22 7:16:00 PDT, Blood, Routine, every 6 hr, for 2 days POC Glucose 12/06/22 2:45:40 PDT, Blood, RT collect, Collected, Once, Nurse collect PT with INR 12/06/22 4:11:23 PDT, Blood, ST, Collected, Once Renal Panel 2 (BMP+Mg,Phos,Uric) 12/07/22 3:30:00 PDT, Blood, AM Draw (Inpatient Only), Daily, for 45 days Sputum Culture with Gram Stain 12/06/22 7:16:00 PDT, Deep Endotracheal Aspirate, Stat collect, ST -Stat, Nurse collect Triglycerides 12/06/22 7:14:00 PDT, Blood, Timed Study, every 72 hr, for 6 days Troponin-I High Sensitivity 12/06/22 3:53:00 PDT, Blood, Add On, Once Type and Screen Only 12/06/22 2:57:00 PDT, Blood, Stat, Once, Nurse collect UA with Microscopic, Culture if Ind 12/06/22 2:50:00 PDT, Urine, Nash Catheterized, Stat Collect, Once, Nurse collect Urine Culture 12/06/22 2:55:00 PDT, Urine, Nash Catheterized, Stat Collect, Collected, Once, Nursecollect VBG (Lactic Acid Only) [place] 12/06/22 10:59:00 PDT, Blood, TS, Once VBG (Lactic Acid Only) [place] 12/06/22 10:05:00 PDT, Blood, ST, Once VBG (Lactic Acid Only) [place] 12/06/22 7:05:13 PDT, Blood, TS, Collected, Once VBG Alert Panel 12/06/22 7:21:00 PDT, Blood, Routine, every 4 hr, for 45 days VBG ED Alert Panel 12/06/22 3:16:17 PDT, Blood, ST, Collected, Once VBG ED Alert Panel 12/06/22 4:11:23 PDT, Blood, ST, Collected, Once VBG ED Alert Panel 12/06/22 2:27:00 PDT, Blood, Stat, Once, Nurse collect VBG ED Alert Panel 12/06/22 7:59:32 PDT, Blood, ST, Collected, Once Medications give during visit: Medication Dose Route vancomycin 1500 mg IV Piggyback piperacillin-tazobactam (Zosyn) 4.5 g IV Piggyback etomidate (Amidate) 10 mg IV Push rocuronium (Zemuron) 80 mg IV Push fentaNYL 1,000 mcg [25 mcg/hr] + Premix Sodium Chloride 0.9% 100 mL (fentaNYL additive* 1,000 mcg [25 mcg/hr] + Premix Sodium Chloride 0.9% 100 mL) 5 mL 100 mL Initial Volume 7.5 mL/hr IV Forearm, Right fentaNYL 1,000 mcg [25 mcg/hr] + Premix Sodium Chloride 0.9% 100 mL (fentaNYL additive* 1,000 mcg [25 mcg/hr] + Premix Sodium Chloride 0.9% 100 mL) 5 mL 100 mL Initial Volume 5 mL/hr IV Forearm, Left fentaNYL 1,000 mcg [25 mcg/hr] + Premix Sodium Chloride 0.9% 100 mL (fentaNYL additive* 1,000 mcg [25 mcg/hr] + Premix Sodium Chloride 0.9% 100 mL) 5 mL 100 mL Initial Volume 5 mL/hr IV Forearm, Left fentaNYL 1,000 mcg [25 mcg/hr] + Premix Sodium Chloride 0.9% 100 mL (fentaNYL additive* 1,000 mcg [25 mcg/hr] + Premix Sodium Chloride 0.9% 100 mL) 12.5 mL 100 mL Initial Volume 2.5 mL/hr IV Hand, Left fentaNYL 1,000 mcg [25 mcg/hr] + Premix Sodium Chloride 0.9% 100 mL (fentaNYL additive* 1,000 mcg [25 mcg/hr] + Premix Sodium Chloride 0.9% 100 mL) 12.5 mL 100 mL Initial Volume 2.5 mL/hr IV Hand, Left fentaNYL 1,000 mcg [25 mcg/hr] + Premix Sodium Chloride 0.9% 100 mL (fentaNYL additive* 1,000 mcg [25 mcg/hr] + Premix Sodium Chloride 0.9% 100 mL) 1.25 mL 100 mL Initial Volume 2.5 mL/hr IV Hand, Left fentaNYL 1,000 mcg [25 mcg/hr] + Premix Sodium Chloride 0.9% 100 mL (fentaNYL additive* 1,000 mcg [25 mcg/hr] + Premix Sodium Chloride 0.9% 100 mL) 1.25 mL 100 mL Initial Volume 2.5 mL/hr IV Hand, Left fentaNYL 1,000 mcg [25 mcg/hr] + Premix Sodium Chloride 0.9% 100 mL (fentaNYL additive* 1,000 mcg [25 mcg/hr] + Premix Sodium Chloride 0.9% 100 mL) 5 mL 100 mL Initial Volume 5 mL/hr IV Forearm, Right fentaNYL 1,000 mcg [25 mcg/hr] + Premix Sodium Chloride 0.9% 100 mL (fentaNYL additive* 1,000 mcg [25 mcg/hr] + Premix Sodium Chloride 0.9% 100 mL) 5 mL 100 mL Initial Volume 5 mL/hr IV Forearm, Right fentaNYL 1,000 mcg [25 mcg/hr] + Premix Sodium Chloride 0.9% 100 mL (fentaNYL additive* 1,000 mcg [25 mcg/hr] + Premix Sodium Chloride 0.9% 100 mL) 5 mL 100 mL Initial Volume 7.5 mL/hr IV Forearm, Right fentaNYL 1,000 mcg [25 mcg/hr] + Premix Sodium Chloride 0.9% 100 mL (fentaNYL additive* 1,000 mcg [25 mcg/hr] + Premix Sodium Chloride 0.9% 100 mL) 100 mL Initial Volume 10 mL/hr IV Forearm, Right fentaNYL 1,000 mcg [25 mcg/hr] + Premix Sodium Chloride 0.9% 100 mL (fentaNYL additive* 1,000 mcg [25 mcg/hr] + Premix Sodium Chloride 0.9% 100 mL) 100 mL Initial Volume 10 mL/hr IV Forearm, Right fentaNYL 1,000 mcg [25 mcg/hr] + Premix Sodium Chloride 0.9% 100 mL (fentaNYL additive* 1,000 mcg [25 mcg/hr] + Premix Sodium Chloride 0.9% 100 mL) 100 mL Initial Volume 5 mL/hr IV Hand, Left fentaNYL 1,000 mcg [25 mcg/hr] + Premix Sodium Chloride 0.9% 100 mL (fentaNYL additive* 1,000 mcg [25 mcg/hr] + Premix Sodium Chloride 0.9% 100 mL) 100 mL Initial Volume 5 mL/hr IV Hand, Left fentaNYL 1,000 mcg [25 mcg/hr] + Premix Sodium Chloride 0.9% 100 mL (fentaNYL additive* 1,000 mcg [25 mcg/hr] + Premix Sodium Chloride 0.9% 100 mL) 100 mL Initial Volume 7.5 mL/hr IV Forearm, Right fentaNYL 1,000 mcg [25 mcg/hr] + Premix Sodium Chloride 0.9% 100 mL (fentaNYL additive* 1,000 mcg [25 mcg/hr] + Premix Sodium Chloride 0.9% 100 mL) 100 mL Initial Volume 7.5 mL/hr IV Forearm, Right fentaNYL 1,000 mcg [25 mcg/hr] + Premix Sodium Chloride 0.9% 100 mL (fentaNYL additive* 1,000 mcg [25 mcg/hr] + Premix Sodium Chloride 0.9% 100 mL) 100 mL Initial Volume 2.5 mL/hr IV Forearm, Right fentaNYL 1,000 mcg [25 mcg/hr] + Premix Sodium Chloride 0.9% 100 mL (fentaNYL additive* 1,000 mcg [25 mcg/hr] + Premix Sodium Chloride 0.9% 100 mL) 100 mL Initial Volume 2.5 mL/hr IV Forearm, Right pantoprazole (Protonix IV) 80 mg IV Push iopamidol 194 mL IV Contrast Lactated Ringers (Lactated Ringers Bolus) 1000 mL IV Bolus norepinephrine 4 mg [0.01 mcg/kg/min] + Premix Dextrose 5% Water 250 mL (norEPINEPHrine additive* 4mg [0.01 mcg/kg/min] + Premix Dextrose 5% Water* 250 mL) 250 mL Initial Volume 34.56 mL/hr IV Forearm, Right norepinephrine 4 mg [0.01 mcg/kg/min] + Premix Dextrose 5% Water 250 mL (norEPINEPHrine additive* 4mg [0.01 mcg/kg/min] + Premix Dextrose 5% Water* 250 mL) 250 mL Initial Volume 34.56 mL/hr IV Forearm, Right norepinephrine 4 mg [0.01 mcg/kg/min] + Premix Dextrose 5% Water 250 mL (norEPINEPHrine additive* 4mg [0.01 mcg/kg/min] + Premix Dextrose 5% Water* 250 mL) 250 mL Initial Volume 5.76 mL/hr IV Forearm, Right norepinephrine 4 mg [0.01 mcg/kg/min] + Premix Dextrose 5% Water 250 mL (norEPINEPHrine additive* 4mg [0.01 mcg/kg/min] + Premix Dextrose 5% Water* 250 mL) 250 mL Initial Volume 2.88 mL/hr IV Forearm, Right norepinephrine 4 mg [0.01 mcg/kg/min] + Premix Dextrose 5% Water 250 mL (norEPINEPHrine additive* 4mg [0.01 mcg/kg/min] + Premix Dextrose 5% Water* 250 mL) 250 mL Initial Volume 2.88 mL/hr IV Forearm, Right norepinephrine 4 mg [0.01 mcg/kg/min] + Premix Dextrose 5% Water 250 mL (norEPINEPHrine additive* 4mg [0.01 mcg/kg/min] + Premix Dextrose 5% Water* 250 mL) 250 mL Initial Volume 23.04 mL/hr IV Forearm, Right norepinephrine 4 mg [0.01 mcg/kg/min] + Premix Dextrose 5% Water 250 mL (norEPINEPHrine additive* 4mg [0.01 mcg/kg/min] + Premix Dextrose 5% Water* 250 mL) 250 mL Initial Volume 23.04 mL/hr IV Forearm, Right norepinephrine 4 mg [0.01 mcg/kg/min] + Premix Dextrose 5% Water 250 mL (norEPINEPHrine additive* 4mg [0.01 mcg/kg/min] + Premix Dextrose 5% Water* 250 mL) 250 mL Initial Volume 5.76 mL/hr IV Forearm, Right norepinephrine 4 mg [0.01 mcg/kg/min] + Premix Dextrose 5% Water 250 mL (norEPINEPHrine additive* 4mg [0.01 mcg/kg/min] + Premix Dextrose 5% Water* 250 mL) 250 mL Initial Volume 40.32 mL/hr IV Forearm, Right norepinephrine 4 mg [0.01 mcg/kg/min] + Premix Dextrose 5% Water 250 mL (norEPINEPHrine additive* 4mg [0.01 mcg/kg/min] + Premix Dextrose 5% Water* 250 mL) 250 mL Initial Volume 28.8 mL/hr IV Forearm, Right norepinephrine 4 mg [0.01 mcg/kg/min] + Premix Dextrose 5% Water 250 mL (norEPINEPHrine additive* 4mg [0.01 mcg/kg/min] + Premix Dextrose 5% Water* 250 mL) 250 mL Initial Volume 28.8 mL/hr IV Forearm, Right norepinephrine 4 mg [0.01 mcg/kg/min] + Premix Dextrose 5% Water 250 mL (norEPINEPHrine additive* 4mg [0.01 mcg/kg/min] + Premix Dextrose 5% Water* 250 mL) 250 mL Initial Volume 11.52 mL/hr IV Forearm, Right norepinephrine 4 mg [0.01 mcg/kg/min] + Premix Dextrose 5% Water 250 mL (norEPINEPHrine additive* 4mg [0.01 mcg/kg/min] + Premix Dextrose 5% Water* 250 mL) 250 mL Initial Volume 11.52 mL/hr IV Forearm, Right norepinephrine 4 mg [0.01 mcg/kg/min] + Premix Dextrose 5% Water 250 mL (norEPINEPHrine additive* 4mg [0.01 mcg/kg/min] + Premix Dextrose 5% Water* 250 mL) 250 mL Initial Volume 17.28 mL/hr IV Forearm, Right norepinephrine 4 mg [0.01 mcg/kg/min] + Premix Dextrose 5% Water 250 mL (norEPINEPHrine additive* 4mg [0.01 mcg/kg/min] + Premix Dextrose 5% Water* 250 mL) 250 mL Initial Volume 17.28 mL/hr IV Forearm, Right norepinephrine 4 mg [0.01 mcg/kg/min] + Premix Dextrose 5% Water 250 mL (norEPINEPHrine additive* 4mg [0.01 mcg/kg/min] + Premix Dextrose 5% Water* 250 mL) 250 mL Initial Volume 40.32 mL/hr IV Forearm, Right pantoprazole (Protonix) 40 mg Slow IV Push cefTRIAXone (Rocephin IVPB) 2 g IV Piggyback X-rays do not always show injury or disease. Fractures may not be revealed on the initial x-ray. Ifthe problem persists or worsens, contact your physician, the follow-up physician, or return to the Emergency Department. Your initial x- ray reading is often a preliminary interpretation, done by an emergency provider to expedite your care. A radiologist reviews all x-rays within 24 hours. If there is a difference from the preliminary reading, you will be informed. If you have questions regarding the findings of your imaging studies please call the Emergency Department Adjusto Writer Operator at . If you need to obtain copies of the films, please call the Radiology Department at: . If you had a limited (not complete) bedside emergency ultrasound performed today while in the emergency department, you will need to discuss with your Primary Care Physician whether you need a formal(complete) ultrasound as an outpatient. Additional Information An Emergency Department visit is not capable of addressing all the unique aspects of an individual???s healthcare. It is intended to address immediate and life-threatening concerns. Emergency Department visits do not take the place of routine physical examinations or follow-up examinations by a primary physician. In addition, medical problems may not be apparent, diagnosed, or treated prior to being released from the emergency department. If cultures or other pending studies were ordered pleasecall in 3 days for results. Based on the patient???s clinical picture and the results of a medical screening exam, there is no emergent medical condition present at this time. The patient is stable for discharge from the ED with the agreed upon follow-up plan and return precautions. IS IT A STROKE? Act??BE FAST??and Check for these signs: ?BALANCE Is there a sudden loss of balance?EYES Is there a sudden change in vision?FACE Is there sudden facial droop?ARM Is there sudden arm and leg weakness?SPEECH Is there sudden speech difficulty?TIME Call at any sign of stroke Suicide Prevention Awareness: Warning Signs can include personal situations, thoughts, images, thinking types, mood and behavior. If you have thoughts or feelings of hurting yourself, please call 911 or the Suicide Prevention Hotline. In Case of Emergency Dial 911 or nearest Emergency Room: National Suicide Prevention Life Line ??5-907-393-TALK ?http://www.suicidepreventionlifeline.org Crisis Text Line Text HELLO to 978427 Transgender Suicide Prevention LifeLine National [place] on Mental Illness or ?http://www.daria.org Substance Abuse and Mental Health Services Administration 5-058-QMLIOT-7 ?http://www.[facility].gov/suicide-prevention Suicide Crisis Lifeline Call or Text 988 ?Email: 988Team@[facility].gov MyHealth Patient Portal [facility] Dec[employer] is an online service that allows patients who have had recent services at [facility] to view portions of their medical record, anytime. It is free and easy to use. It???s private andsecure. And it???s available 24 hours a day from any computer. [facility] is committed to protecting the safety and privacy concerns of our patients. Simply visit [email or web address]/ to login. You may receive a survey from an independent agency requesting information about your visit today. Please complete and return it at your earliest convenience. Your feedback helps us continually improve our service to the community. [place] Health and Safety Code 722909 requires medical providers to report immediately to the local health officer in writing, the name, date of , and address of every patient at least 14 years of age or older whom the provider has diagnosed as having a case of a disorder characterized by lapses of consciousness. The local health officer is required to report in writing to the Department of Motor Vehicles the name, age, and address of every person reported to it as a case of disorder characterized by lapses of consciousness. Seat Belt Law SEAT BELT LAW INFROMATION: Traffic crashes are a leading cause of for children. Child safety seats, including booster seats, are very effective in saving children???s lives. Failure to use a child passenger restraint system may increase the risk of or serious injury to a child in an accident. REQUIREMENTS: Regardless of age or weight, all children are required to be in a child safety seat, booster seat or safety belt when being transported in a motor vehicle. Children under 8 years of age must be secured in a federally approved child passenger restraint system in the back seat. Ifa child is under 8 years of age and is 4 feet 9 inches or taller, the child may be restrained by a safety belt in the back seat instead of in a child passenger restraint system. Starting 2016, children under 2 years of age must be secured in a federally- approved rear-facing child passenger restraint system, unless the child weighs 40 or more pounds or is 40 or more inches tall. The child must be secured in a manner that complies with the height and weight limits specified by the manufact urer. Children 8 years of age or older must be secured in a federally approved child passenger restraint system or safety belt.(Exceptions to this requirement can be found by calling (916) SEAT-CHECKor visit seatcheESCAPESwithYOU.[employer] or [employer]Light/cps/index.cfm to find a nearby location.) Failure to properly secure a child in a child safety seat, booster seat or safety belt as described above is illegal. Youmay receive a fine and/or be ordered to attend an education program. RESOURCES: There are places you can go to get free help on how to use or install a child safety seat safely. Call (525) [employer]AT[employer]ana [employer] or visit www.seatcheESCAPESwithYOU.[employer] or [employer]/cps/index.cfm to find a nearby location. Referral Instructions You were treated today on an emergency basis; it may be hinojosa to contact your primary care provider to notify them of your visit today. You may have been referred to your regular doctor or a specialist, please follow up as instructed. If your condition worsens or you can???t get in to see the doctor, contact the Emergency Department. Procedural Sedation If you or somebody under your care received procedural sedation at the emergency department today, here is some information regarding your care after you go home. The treatment today has been plannedaccording to current medical practices, but problems sometimes occur. Please call your health care provider if you have any problems or questions after the procedure. WHAT TO EXPECT: If the patient received sedation today they may be sleepy, confused, or feel a little ???out of it?? for several hours after going home. Coordination may be impaired until medications have completely worn off. The patient may feel nauseous or vomit if they eat too soon after the procedure. Start slow with juices and clear liquids and eat more as tolerated. HOME CARE INSTRUCTIONS: For at least the next 24 hours or until the patient is behaving normally again, do not participate in activities in which the patient may become injured. Do not operate heavy machinery or drive. Do not make important legal decisions. If the patient is a child, supervise all play or bathing for at least the next 24 hours or until the patient is behaving normally. Your child may be unsteady on their feet for several hours after sedation. Only take medications as prescribed or as directed by your healthcare provider. Avoid alcohol, medications, or drugs which may contribute to excess drowsiness for at least the first 24 hours. Keep all follow up appointments as directed. Seek medical care if clumsiness or sleepiness lasts more than 24 hours. SEEK IMMEDIATE MEDICAL CARE IF: The patient develops a rash. The patient develops difficulty breathing. The patient develops any other signs of an allergic reaction. If the patient appears to be doing worse or you have any other concerns. This information is not intended to replace advice given to you by your health care provider. Please make sure you discuss any questions with them. Insurance Information When you sign in, it is your responsibility to give correct and complete insurance information. We will make every effort to properly bill your insurance company on your behalf. If you are uninsured or underinsured, you may be eligible for Financial Assistance. [facility] offers a claudio program that may reduce or eliminate your bill. You can apply by filling out an application online by visiting our website [email or web address] or by calling our customer service department at to learn more and have an application mailed to you. [facility] has Financial Counselors that can help you with [place]overed [place] and presumptive Medi-Juan F. You can also visit [email or web address] to learn more about shoppable services. There are organizations that can provide further information about the billing and payment process. Please visit [email or web address]. * SABRINA Ruff, Dickson: PERFORM, SIGN, VERIFY Event Display: ED Clinical Summary Authored Date: [id number] Emergency Department [facility] Emergency Department Discharge Instructions (Clinical) PERSON INFORMATION Name: Papito Joseph? :?1945?Age:?? 77 Years ? Address and Phone:?? [place] [address]?? DISCHARGE INFORMATION Date of Discharge/Departed:? Diagnosis: ??Altered mental status; GI bleed; On mechanically assisted ventilation; Pyelonephritis;Urinary tract infection PROVIDERS Primary Care Provider: ? Name: Misc, PCP Unknown ? Phone: Emergency Department Providers: Provider Role Assigned Unassigned MD Olvera Michael ED Provider 12/06/2022 02:37:22 Serenity Naylor ED Scribe 12/06/2022 02:40:47 Rosita Leon DO (R), Jessie ED Resident 12/06/2022 02:48:26 Becca, RN, Katherine Strange ED Nurse 12/06/2022 03:49:19 12/06/2022 07:51:25 MD Zachary (R), Terry ED Resident 12/06/2022 06:23:04 12/06/2022 06:25:18 Elzbieta, SABRINA, Dickson ED Nurse 12/06/2022 06:42:26 Comment: MEDICAL INFORMATION Vitals Information: Vital Sign Triage Latest Temp Oral Temp Axillary Temp Rectal O2 Sat 100 % 95 % Respiratory Rate Peripheral Pulse Rate Blood Pressure / 56 mmHg / 62 mmHg Major Tests and Procedures: The following tests were performed during your ED visit. Radiology Orders: CT Brain/Head w/o Contrast 12/06/22 3:08:00 PDT, Stroke, Reason: Neuro deficit, acute, stroke suspected, Consulting Dr: MD Olvera Michael, Transport Mode: Ambulatory CT Chest W/ Contrast 12/06/22 3:09:00 PDT, Stat, Reason: hypotensive, altered, GI bleed, tendernessto palpation to abdomen, Consulting Dr: MD Olvera Michael, Transport Mode: Ambulatory CTA Abdomen and Pelvis 12/06/22 3:09:00 PDT, Stat, Reason: hypotensive, altered, GI bleed, tenderness to palpation to abdomen, Consulting Dr: MD Olvera Michael, Transport Mode: Ambulatory CTA Brain/Head 12/06/22 3:08:00 PDT, Stroke, Reason: Neuro deficit, acute, stroke suspected, Consulting Dr: MD Olvera Michael, Transport Mode: Ambulatory CTA Neck 12/06/22 3:08:00 PDT, Stroke, Reason: Neuro deficit, acute, persistent or progressing, Consulting Dr: MD Olvera Michael, Transport Mode: Ambulatory Electrocardiogram ED 12/06/22 3:08:00 PDT, Stat, Cerebrovascular Accident [CVA], Ambulatory, Stop date 12/06/22 3:08:00 PDT Electrocardiogram ED 12/06/22 2:44:00 PDT, Stat, Ambulatory, Stop date 12/06/22 2:44:00 PDT XR Chest 1 View Portable 12/06/22 2:50:00 PDT, Stat, Reason: Difficulty breathing, Transport Mode: Ambulatory XR Chest 1 View Portable 12/06/22 7:01:00 PDT, In AM, Reason: ET tube placement, Transport Mode: Ambulatory Laboratory Orders: .Automated Diff 12/06/22 2:50:00 PDT, Blood, Stat, Once, Nurse collect, [id number] .Automated Diff 12/06/22 4:11:23 PDT, Blood, ST, Collected, Once, [id number] .Estimated Glomerular Filtration Rate 12/06/22 2:58:00 PDT, Blood, Stat, Collected, Once, Nurse collect, [id number] .Estimated Glomerular Filtration Rate 12/06/22 4:11:00 PDT, Blood, ST, Collected, Once, [id number] .Estimated Glomerular Filtration Rate Corrected 12/06/22 4:11:00 PDT, Blood, ST, Collected, Once, [id number] ABG Alert Panel 12/07/22 3:30:00 PDT, Blood, AM Draw (Inpatient Only), Daily, for 45 days ABO/Rh Automated 12/06/22 2:58:00 PDT, Blood, Stat, Collected, Once, Nurse collect, [id number] ABO/Rh Retype 12/06/22 4:11:23 PDT, Blood, ST, Collected, Once ABOV 12/06/22 2:58:00 PDT, Blood, Stat, Collected, Collected By: DAYTON, Once, Nurse collect, 3 mL Lebam/*A*/ Ammonia Level 12/06/22 2:54:00 PDT, Blood, Stat, Once, Nurse collect Antibody Screen 12/06/22 2:58:00 PDT, Blood, Stat, Collected, Collected By: DAYTON, Zackary, Nurse collect, 3 mL Lebam/*A*/ Biofire Pneumonia Panel [facility] 12/06/22 7:59:32 PDT, ST Collect, Collected, Once Blood Culture 12/06/22 7:57:55 PDT, ST collect, ST - Stat ST, Collected Blood Culture 12/06/22 7:57:55 PDT, ST collect, ST - Stat ST, Collected CBC with Diff 12/06/22 4:11:23 PDT, Blood, ST, Collected, Once CBC with Diff 12/06/22 2:50:00 PDT, Blood, Stat, Once, Nurse collect CBC with Differential 12/07/22 3:30:00 PDT, Blood, AM Draw (Inpatient Only), Daily, for 45 days CMP 12/06/22 2:50:00 PDT, Blood, Stat, Once, Nurse collect CMP 12/06/22 4:11:23 PDT, Blood, ST, Collected, Once Crossmatch 12/06/22 2:58:00 PDT, Blood, Stat, Collected, Collected By: DAYTON, Once, Nurse collect, 3 mL Lebam/*A*/ Hgb and Hct. 12/06/22 7:16:00 PDT, Blood, Routine, every 6 hr, for 2 days POC Glucose 12/06/22 2:45:40 PDT, Blood, RT collect, Collected, Once, Nurse collect PT with INR 12/06/22 4:11:23 PDT, Blood, ST, Collected, Once Renal Panel 2 (BMP+Mg,Phos,Uric) 12/07/22 3:30:00 PDT, Blood, AM Draw (Inpatient Only), Daily, for 45 days Sputum Culture with Gram Stain 12/06/22 7:16:00 PDT, Deep Endotracheal Aspirate, Stat collect, ST -Stat, Nurse collect Triglycerides 12/06/22 7:14:00 PDT, Blood, Timed Study, every 72 hr, for 6 days Troponin-I High Sensitivity 12/06/22 3:53:00 PDT, Blood, Add On, Once Type and Screen Only 12/06/22 2:57:00 PDT, Blood, Stat, Once, Nurse collect UA with Microscopic, Culture if Ind 12/06/22 2:50:00 PDT, Urine, Nash Catheterized, Stat Collect, Once, Nurse collect Urine Culture 12/06/22 2:55:00 PDT, Urine, Nash Catheterized, Stat Collect, Collected, Once, Nursecollect VBG (Lactic Acid Only) [place] 12/06/22 10:59:00 PDT, Blood, TS, Once VBG (Lactic Acid Only) [place] 12/06/22 10:05:00 PDT, Blood, ST, Once VBG (Lactic Acid Only) [place] 12/06/22 7:05:13 PDT, Blood, TS, Collected, Once VBG Alert Panel 12/06/22 7:21:00 PDT, Blood, Routine, every 4 hr, for 45 days VBG ED Alert Panel 12/06/22 3:16:17 PDT, Blood, ST, Collected, Once VBG ED Alert Panel 12/06/22 4:11:23 PDT, Blood, ST, Collected, Once VBG ED Alert Panel 12/06/22 2:27:00 PDT, Blood, Stat, Once, Nurse collect VBG ED Alert Panel 12/06/22 7:59:32 PDT, Blood, ST, Collected, Once Results: Laboratory or Other Results This Visit??(last charted value for your??12/06/2022??visit) ?Hematology ?12/06/2022?7:58 AM ?Hct:??28.6??%??--??Normal range between??(??40.0??and??54.0??)?Hgb:??9.2??g/dL??--??Normal range between??(??13.5??and??17.5??)?12/06/2022?4:11 AM ?WBC:??20.98??x10^3/mcL??--??Normal range between??(??4.00??and??12.00??)?RBC:??2.47??x10^6/mcL??--??Normal range between??(??4.60??and??6.20??)?Neut Auto%:??90.20??%??--??Normal range between??(??42.00??and??72.00??)?Lymp Auto%:??2.40??%??--??Normal range between??(??17.00??and??45.00??)?[place] Auto%:??6.50??%??--??Normal range between??(??3.00??and??10.00??)?Baso Auto%:??0.10??%??--??Normal range between??(??0.00??and??2.00??)?Baso Abs:??0.03??x10^3/mcL??--??Normal range between??(??0.00??and??0.20??)?MCV:??91.9??fL??--??Normal range between??(??80.0??and??100.0??)?MCHC:??30.8??g/dL??--??Normal range between??(??30.0??and??36.0??)?Lym Ab:??0.51??x10^3/mcL??--??Normal range between??(??1.00??and??4.50??)?[place] Abs:??1.36??x10^3/mcL??--??Normal range between??(??0.10??and??0.90??)?MCH:??28.3??pg??--??Normal range between??(??27.0??and??34.0??)?Neut Abs:??18.92??x10^3/mcL??--??Normal range between??(??1.60??and??8.30??)?MPV:??11.3??fL??--??Normal range between??(??9.4??and??12.4??)?Platelets:??239??x10^3/mcL??--??Normal range between??(??130??and??400??)?Eos Abs:??0.00??x10^3/mcL??--??Normal range between??(??0.00??and??0.55??)?RDW-CV:??18.6??%??--??Normal range between??(??11.3??and??14.8??)?Im Gr Auto%:??0.80??%??--??Normal range between??(??0.00??and??2.00??)?Im Gran Abs:??0.16??x10^3/mcL??--??Normal range between??(??0.01??and??0.03??)?NRBC Absolute:??0.03??x10^3/mcL ?RDW-SD:??60.1??fL??--??Normal range between??(??36.3??and??48.9??)?Eos% Auto:??0.00??%??--??Normal range between??(??1.00??and??10.00??)?NRBC%:??0.10??% ?Coagulation ?12/06/2022?4:11 AM ?PT:??14.3??seconds??--??Normal range between??(??9.3??and??11.5??)?INR:??1.38?--??Normal range between??(??0.90??and??1.11??)?Urinalysis ?12/06/2022?2:55 AM ?UA Color:??Shelley?UA WBC:??87??/HPF??--??Normal range between??(??0??and??3??)?UA Urobilinogen:??2.0??mg/dL ?UA Bilirubin:??Negative?UA Ketones:??Negative??mg/dL ?UA RBC:??101??/HPF??--??Normal range between??(??0??and??3??)?UA Leuk Est:??MODERATE?UA Nitrite:??Negative?UA Glucose:??Negative??mg/dL ?UA Bacteria:??FEW??/HPF ?UA Protein:??100??mg/dL ?UA Blood:??SMALL?UA Mucus:??RARE??/LPF ?UA Epi Squam:??2??/HPF??--??Normal range between??(??0??and??3??)?UA pH:??6.0?--??Normal range between??(??5.0??and??8.0??)?UA Epi Renal:??0??/HPF ?UA Clarity:??HAZY?UA Spec Grav:??1.016?--??Normal range between??(??1.006??and??1.029??)?UA Culture Indicated?:??Yes?UA WBC Clumps:??MANY??/HPF ?Chemistry ?12/06/2022?7:59 AM ?HCO3 Shadi:??25.8??mmol/L??--??Normal range between??(??22.0??and??26.0??)?pCO2 Shadi:??50??mmHg??--??Normal range between??(??40??and??45??)?FiO2 Shadi:??80??% ?pO2 Shadi:??117.0??mmHg??--??Normal range between??(??35.0??and??40.0??)?pH Shadi:??7.32?--??Normal range between??(??7.36??and??7.41??)?Base Excess Shadi:??-0.6??mmol/L ?Calcium Ionized:??1.14??mmol/L??--??Normal range between??(??1.15??and??1.35??)?Lactic Acid Shadi:??2.5??mmol/L??--??Normal range between??(??0.5??and??1.6??)?O2 Sat Shadi:??98.5??%??--??Normal range between??(??50.0??and??70.0??)?HCO3- Std Shadi:??24.4??mmol/L??--??Normal range between??(??22.0??and??26.0??)?Glucose Shadi:??177??mg/dL??--??Normal range between??(??74??and??118??)?Hct.:??29.0??%??--??Normal range between??(??40.0??and??54.0??)?Hgb Shadi:??9.7??g/dL??--??Normal range between??(??13.5??and??17.5??)?K Shadi:??3.3??mmol/L??--??Normal range between??(??3.6??and??5.1??)?Na Shadi:??136??mmol/L??--??Normal range between??(??136??and??145??)?Cl.:??102??mmol/L??--??Normal range between??(??101??and??111??)?COHb Shadi:??1.4??%??--??Normal range between??(??0.5??and??1.5??)?O2Hb Shadi:??95.4??%??--??Normal range between??(??70.0??and??75.0??)?MetHb Shadi:??1.7??%??--??Normal range between??(??0.0??and??1.5??)?HHb Shadi:??1.5??%??--??Normal range between??(??25.0??and??30.0??)?12/06/2022?7:58 AM ?Triglycerides:??61??mg/dL??--??Normal range between??(??10??and??200??)?12/06/2022?4:11 AM ?Creatinine Lvl:??1.57??mg/dL??--??Normal range between??(??0.50??and??1.20??)?BUN:??30??mg/dL??--??Normal range between??(??6??and??20??)?Glucose Level:??170??mg/dL??--??Normal range between??(??74??and??118??)?Potassium Level:??3.8??mmol/L??--??Normal range between??(??3.5??and??5.1??)?AST:??26??IntlUnit/L??--??Normal range between??(??15??and??41??)?ALT:??11??IntlUnit/L??--??Normal range between??(??3??and??36??)?Troponin-I HS:??0.015??ng/mL??--??Normal range between??(??0.000??and??0.040??)?Sodium Level:??138.0??mmol/L??--??Normal range between??(??135.0??and??144.0??)?Calcium Level:??8.0??mg/dL??--??Normal range between??(??7.5??and??10.4??)?Albumin Level:??2.7??g/dL??--??Normal range between??(??3.5??and??5.7??)?Protein Total:??4.7??g/dL??--??Normal range between??(??6.1??and??7.9??)?Bilirubin Total:??0.30??mg/dL??--??Normal range between??(??0.40??and??2.00??)?Alk Phos:??50??IntlUnit/L??--??Normal range between??(??34??and??104??)?CO2:??18.5??mmol/L??--??Normal range between??(??22.0??and??32.0??)?eGFR Correction:??Yes?Chloride Level:??102??mmol/L??--??Normal range between??(??101??and??111??)?Anion Gap:??21.2??mmol/L??--??Normal range between??(??4.0??and??16.0??)?BUN/Creat Ratio:??19.0??ratio??--??Normal range between??(??6.0??and??27.0??)?eGFR CKD-EPI:??27?12/06/2022?2:58 AM ?Ammonia Level:??40??mcmol/L??--??Normal range between??(??10??and??53??)?12/06/2022?2:43 AM ?O2 Control LPM:??15.0??L/min ?Transfusion Medicine ?12/06/2022?2:58 AM ?ABO/Rh:??O??POS?Antibody Screen:??Negative??ABSC?Crossmatch - Computer:??Computer??XM??OK?Point of Care Testing ?12/06/2022?2:45 AM ?POC Gluc:??218??mg/dL??--??Normal range between??(??70??and??105??) Medications given during visit: Medication Dose Route vancomycin 1500 mg IV Piggyback piperacillin-tazobactam (Zosyn) 4.5 g IV Piggyback etomidate (Amidate) 10 mg IV Push rocuronium (Zemuron) 80 mg IV Push fentaNYL 1,000 mcg [25 mcg/hr] + Premix Sodium Chloride 0.9% 100 mL (fentaNYL additive* 1,000 mcg [25 mcg/hr] + Premix Sodium Chloride 0.9% 100 mL) 5 mL 100 mL Initial Volume 7.5 mL/hr IV Forearm, Right fentaNYL 1,000 mcg [25 mcg/hr] + Premix Sodium Chloride 0.9% 100 mL (fentaNYL additive* 1,000 mcg [25 mcg/hr] + Premix Sodium Chloride 0.9% 100 mL) 5 mL 100 mL Initial Volume 5 mL/hr IV Forearm, Left fentaNYL 1,000 mcg [25 mcg/hr] + Premix Sodium Chloride 0.9% 100 mL (fentaNYL additive* 1,000 mcg [25 mcg/hr] + Premix Sodium Chloride 0.9% 100 mL) 5 mL 100 mL Initial Volume 5 mL/hr IV Forearm, Left fentaNYL 1,000 mcg [25 mcg/hr] + Premix Sodium Chloride 0.9% 100 mL (fentaNYL additive* 1,000 mcg [25 mcg/hr] + Premix Sodium Chloride 0.9% 100 mL) 12.5 mL 100 mL Initial Volume 2.5 mL/hr IV Hand, Left fentaNYL 1,000 mcg [25 mcg/hr] + Premix Sodium Chloride 0.9% 100 mL (fentaNYL additive* 1,000 mcg [25 mcg/hr] + Premix Sodium Chloride 0.9% 100 mL) 12.5 mL 100 mL Initial Volume 2.5 mL/hr IV Hand, Left fentaNYL 1,000 mcg [25 mcg/hr] + Premix Sodium Chloride 0.9% 100 mL (fentaNYL additive* 1,000 mcg [25 mcg/hr] + Premix Sodium Chloride 0.9% 100 mL) 1.25 mL 100 mL Initial Volume 2.5 mL/hr IV Hand, Left fentaNYL 1,000 mcg [25 mcg/hr] + Premix Sodium Chloride 0.9% 100 mL (fentaNYL additive* 1,000 mcg [25 mcg/hr] + Premix Sodium Chloride 0.9% 100 mL) 1.25 mL 100 mL Initial Volume 2.5 mL/hr IV Hand, Left fentaNYL 1,000 mcg [25 mcg/hr] + Premix Sodium Chloride 0.9% 100 mL (fentaNYL additive* 1,000 mcg [25 mcg/hr] + Premix Sodium Chloride 0.9% 100 mL) 5 mL 100 mL Initial Volume 5 mL/hr IV Forearm, Right fentaNYL 1,000 mcg [25 mcg/hr] + Premix Sodium Chloride 0.9% 100 mL (fentaNYL additive* 1,000 mcg [25 mcg/hr] + Premix Sodium Chloride 0.9% 100 mL) 5 mL 100 mL Initial Volume 5 mL/hr IV Forearm, Right fentaNYL 1,000 mcg [25 mcg/hr] + Premix Sodium Chloride 0.9% 100 mL (fentaNYL additive* 1,000 mcg [25 mcg/hr] + Premix Sodium Chloride 0.9% 100 mL) 5 mL 100 mL Initial Volume 7.5 mL/hr IV Forearm, Right fentaNYL 1,000 mcg [25 mcg/hr] + Premix Sodium Chloride 0.9% 100 mL (fentaNYL additive* 1,000 mcg [25 mcg/hr] + Premix Sodium Chloride 0.9% 100 mL) 100 mL Initial Volume 10 mL/hr IV Forearm, Right fentaNYL 1,000 mcg [25 mcg/hr] + Premix Sodium Chloride 0.9% 100 mL (fentaNYL additive* 1,000 mcg [25 mcg/hr] + Premix Sodium Chloride 0.9% 100 mL) 100 mL Initial Volume 10 mL/hr IV Forearm, Right fentaNYL 1,000 mcg [25 mcg/hr] + Premix Sodium Chloride 0.9% 100 mL (fentaNYL additive* 1,000 mcg [25 mcg/hr] + Premix Sodium Chloride 0.9% 100 mL) 100 mL Initial Volume 5 mL/hr IV Hand, Left fentaNYL 1,000 mcg [25 mcg/hr] + Premix Sodium Chloride 0.9% 100 mL (fentaNYL additive* 1,000 mcg [25 mcg/hr] + Premix Sodium Chloride 0.9% 100 mL) 100 mL Initial Volume 5 mL/hr IV Hand, Left fentaNYL 1,000 mcg [25 mcg/hr] + Premix Sodium Chloride 0.9% 100 mL (fentaNYL additive* 1,000 mcg [25 mcg/hr] + Premix Sodium Chloride 0.9% 100 mL) 100 mL Initial Volume 7.5 mL/hr IV Forearm, Right fentaNYL 1,000 mcg [25 mcg/hr] + Premix Sodium Chloride 0.9% 100 mL (fentaNYL additive* 1,000 mcg [25 mcg/hr] + Premix Sodium Chloride 0.9% 100 mL) 100 mL Initial Volume 7.5 mL/hr IV Forearm, Right fentaNYL 1,000 mcg [25 mcg/hr] + Premix Sodium Chloride 0.9% 100 mL (fentaNYL additive* 1,000 mcg [25 mcg/hr] + Premix Sodium Chloride 0.9% 100 mL) 100 mL Initial Volume 2.5 mL/hr IV Forearm, Right fentaNYL 1,000 mcg [25 mcg/hr] + Premix Sodium Chloride 0.9% 100 mL (fentaNYL additive* 1,000 mcg [25 mcg/hr] + Premix Sodium Chloride 0.9% 100 mL) 100 mL Initial Volume 2.5 mL/hr IV Forearm, Right pantoprazole (Protonix IV) 80 mg IV Push iopamidol 194 mL IV Contrast Lactated Ringers (Lactated Ringers Bolus) 1000 mL IV Bolus norepinephrine 4 mg [0.01 mcg/kg/min] + Premix Dextrose 5% Water 250 mL (norEPINEPHrine additive* 4mg [0.01 mcg/kg/min] + Premix Dextrose 5% Water* 250 mL) 250 mL Initial Volume 34.56 mL/hr IV Forearm, Right norepinephrine 4 mg [0.01 mcg/kg/min] + Premix Dextrose 5% Water 250 mL (norEPINEPHrine additive* 4mg [0.01 mcg/kg/min] + Premix Dextrose 5% Water* 250 mL) 250 mL Initial Volume 34.56 mL/hr IV Forearm, Right norepinephrine 4 mg [0.01 mcg/kg/min] + Premix Dextrose 5% Water 250 mL (norEPINEPHrine additive* 4mg [0.01 mcg/kg/min] + Premix Dextrose 5% Water* 250 mL) 250 mL Initial Volume 5.76 mL/hr IV Forearm, Right norepinephrine 4 mg [0.01 mcg/kg/min] + Premix Dextrose 5% Water 250 mL (norEPINEPHrine additive* 4mg [0.01 mcg/kg/min] + Premix Dextrose 5% Water* 250 mL) 250 mL Initial Volume 2.88 mL/hr IV Forearm, Right norepinephrine 4 mg [0.01 mcg/kg/min] + Premix Dextrose 5% Water 250 mL (norEPINEPHrine additive* 4mg [0.01 mcg/kg/min] + Premix Dextrose 5% Water* 250 mL) 250 mL Initial Volume 2.88 mL/hr IV Forearm, Right norepinephrine 4 mg [0.01 mcg/kg/min] + Premix Dextrose 5% Water 250 mL (norEPINEPHrine additive* 4mg [0.01 mcg/kg/min] + Premix Dextrose 5% Water* 250 mL) 250 mL Initial Volume 23.04 mL/hr IV Forearm, Right norepinephrine 4 mg [0.01 mcg/kg/min] + Premix Dextrose 5% Water 250 mL (norEPINEPHrine additive* 4mg [0.01 mcg/kg/min] + Premix Dextrose 5% Water* 250 mL) 250 mL Initial Volume 23.04 mL/hr IV Forearm, Right norepinephrine 4 mg [0.01 mcg/kg/min] + Premix Dextrose 5% Water 250 mL (norEPINEPHrine additive* 4mg [0.01 mcg/kg/min] + Premix Dextrose 5% Water* 250 mL) 250 mL Initial Volume 5.76 mL/hr IV Forearm, Right norepinephrine 4 mg [0.01 mcg/kg/min] + Premix Dextrose 5% Water 250 mL (norEPINEPHrine additive* 4mg [0.01 mcg/kg/min] + Premix Dextrose 5% Water* 250 mL) 250 mL Initial Volume 40.32 mL/hr IV Forearm, Right norepinephrine 4 mg [0.01 mcg/kg/min] + Premix Dextrose 5% Water 250 mL (norEPINEPHrine additive* 4mg [0.01 mcg/kg/min] + Premix Dextrose 5% Water* 250 mL) 250 mL Initial Volume 28.8 mL/hr IV Forearm, Right norepinephrine 4 mg [0.01 mcg/kg/min] + Premix Dextrose 5% Water 250 mL (norEPINEPHrine additive* 4mg [0.01 mcg/kg/min] + Premix Dextrose 5% Water* 250 mL) 250 mL Initial Volume 28.8 mL/hr IV Forearm, Right norepinephrine 4 mg [0.01 mcg/kg/min] + Premix Dextrose 5% Water 250 mL (norEPINEPHrine additive* 4mg [0.01 mcg/kg/min] + Premix Dextrose 5% Water* 250 mL) 250 mL Initial Volume 11.52 mL/hr IV Forearm, Right norepinephrine 4 mg [0.01 mcg/kg/min] + Premix Dextrose 5% Water 250 mL (norEPINEPHrine additive* 4mg [0.01 mcg/kg/min] + Premix Dextrose 5% Water* 250 mL) 250 mL Initial Volume 11.52 mL/hr IV Forearm, Right norepinephrine 4 mg [0.01 mcg/kg/min] + Premix Dextrose 5% Water 250 mL (norEPINEPHrine additive* 4mg [0.01 mcg/kg/min] + Premix Dextrose 5% Water* 250 mL) 250 mL Initial Volume 17.28 mL/hr IV Forearm, Right norepinephrine 4 mg [0.01 mcg/kg/min] + Premix Dextrose 5% Water 250 mL (norEPINEPHrine additive* 4mg [0.01 mcg/kg/min] + Premix Dextrose 5% Water* 250 mL) 250 mL Initial Volume 17.28 mL/hr IV Forearm, Right norepinephrine 4 mg [0.01 mcg/kg/min] + Premix Dextrose 5% Water 250 mL (norEPINEPHrine additive* 4mg [0.01 mcg/kg/min] + Premix Dextrose 5% Water* 250 mL) 250 mL Initial Volume 40.32 mL/hr IV Forearm, Right pantoprazole (Protonix) 40 mg Slow IV Push cefTRIAXone (Rocephin IVPB) 2 g IV Piggyback Allergy Information: No Known Allergies Medication List: albuterol (Albuterol (Eqv-Proventil HFA) 90 mcg/inh inhalation aerosol) 2 Puffs Inhale (breathe in)every 6 hours as needed shortness of breath or wheezing. Refills: 0. aspirin (aspirin 325 mg oral tablet) 1 tab Oral (given by mouth) At Bedtime. Refills: 0. atorvastatin (Lipitor 80 mg oral tablet) 1 tab Oral (given by mouth) At Bedtime. Refills: 0. cholecalciferol (cholecalciferol 1000 intl units oral tablet) 1 tab Oral (given by mouth) Daily. Refills: 0. clopidogrel (Plavix 75 mg oral tablet) 1 tab Oral (given by mouth) every evening. Refills: 0. fluticasone-salmeterol (Advair Diskus 100 mcg-50 mcg inhalation powder) 1 Puffs Inhale (breathe in)2 times a day. Refills: 0. lisinopril (lisinopril 2.5 mg oral tablet) 1 tab Oral (given by mouth) Daily. Refills: 0. metoprolol (Metoprolol Succinate ER 25 mg oral tablet, extended release) 1 tab Oral (given by mouth) Daily. Refills: 0. omega-3 polyunsaturated fatty acids (Fish Oil 1000 mg oral capsule) 1 Capsules Oral (given by mouth) Daily. tamsulosin (Flomax 0.4 mg oral capsule) 1 Capsules Oral (given by mouth) Daily. Refills: 0. tiotropium (Spiriva 18 mcg inhalation capsule) 1 Capsules Inhale (breathe in) Daily. use two inhalations of one capsule for each dose. Refills: 0. Comment: Comment: Nurse Emergency department Note * SABRINA Hudson, Katherine Strange: PERFORM Event Display: ED Note Nursing Authored Date: [id number] Patient brought in by ambulance from home, GCS 9, hypotensive 80's systolic, active GI bleed, per EMS family stated pt had slurred speech. Tier 2 stroke alert called at 0239, pt unstable to go to CT at this time, pt intubated by Dr. Ta with Katherine Doherty RN, Pharmacist, and RT present. Intubated at 0304 with 7.5 tube 25cm at gum, placement confimed with color change, breath sounds, and XR. Patient taken to CT at 0330 Electronically Signed on 12/06/22 03:36 AM SABRINA Hudson, Katherine Strange Emergency department procedure note * MD Olvera Michael: MODIFY MD Olvera Michael: MODIFY, MODIFY, MODIFY Rosita Leon DO (R)Jessie: MODIFY Event Display: ED Procedure Note Authored Date: [id number] Olvera Procedure Procedure: Endotracheal Intubation ?? Indication:??Airway Protection ?? Informed consent was:??Implied Emergent ?? Procedure Description:?? Patient was placed in the??supineposition, set up with continuous telemetry, continuous pulse ox, and non invasive blood pressure monitoring every 2.5 minutes if no arterial line present.?Preoxygenation, medications, and intubation tools listed below.? Pre-Oxygenation:??Bag Mask Ventilation 100% FiO2 ?? Medications: 1.?? [??Etomidate??_ mg/kg]??10 mg 2. Rocuronium??_ mg/kg??80 mg ?? Intubation Device:??Video Laryngoscope Cormack-Lehane classification:??Grade 1 View Endotracheal??Tube Size:??7.5 Fr Airway confirmed by:??Auscultation & CO2 Colorimetric Detection CXRY Obtained: _Yes ?? Performed by me, Jessie Dickerson DO (Emergency Medicine PGY-3), directly supervised by attending physician Dr. Olvera. ?? Attending Attestation I attest that I was present for patel/critical portions of the procedure which was performed under mysupervision, and agree with the documentation above. ?? Bradly Olvera MD? Electronically Signed on 12/06/22 03:21 AM Rosita Leon DO (R)Jessie Electronically Signed on 12/06/22 07:59 AM Rosita Leon DO (R)Jessie Electronically Signed on 12/06/22 08:01 AM MD Wade, Bradly Emergency department Note * SABRINA Hudson, Katherine Strange: PERFORM Event Display: ED Misc Note Authored Date: [id number] ED Ambulance Offload Entered On: 12/06/2022 2:53 PDT Performed On: 12/06/2022 2:44 PDT by SABRINA Hudson, Katherine Strange ED Amb Offload ED Amb Offload Time : 12/06/2022 2:45 PDT ED Amb Offload Destination : Nazia Hudson RN, Kasey L - 12/06/2022 2:52 PDT Electronically Signed on 12/06/22 02:52 AM SABRINA Hudson Kasey L Emergency department Visit notification * Clare Mackenzie: PERFORM Event Display: ED Pre Arrival Note Authored Date: Emergency department Triage note * SABRINA Hudson Kasey L: PERFORM Event Display: ED Triage Note Authored Date: ED Triage Part 1 - Adult Entered On: 12/06/2022 2:44 PDT Performed On: 12/06/2022 2:25 PDT by SABRINA Hudson Kasey L ED Triage Part 1 - Adult Chief Complaint : BIBA from home for slurred speech and generalized weakness on EMS arrival pt sitting on bucket with dark, watery, bloody stool noted in bucket, hypotensive 80s systolic, gcs 13 on arrival, nash present on admission SABRINA Hudson Kasey L - 12/06/2022 2:45 PDT [facility] Mode of Arrival : Ambulance ED Allergies/Med Hx Section : Document assessment Allergy Band on and Verified : N/A Exhibit stroke-like symptoms : Yes Risk for Harm to Others : No Cognitive Impairment ED : Yes Behavioral Health Concern : No ED CSSRS Admit for Suicide Attempt : No ED Adult Choose Pain Score : Pain Assessment in Adult Dementia SABRINA Hudson Kasey L - 12/06/2022 2:38 PDT DCP GENERIC CODE Tracking Group : ED Tracking Group Tracking Acuity : 2 - Emergent SABRINA Hudson Kasey L - 12/06/2022 2:38 PDT Respirations : Labored SABRINA Hudson Kasey L - 12/06/2022 2:38 PDT Skin Color : Pale SABRINA Hudson Kasey L - 12/06/2022 2:45 PDT (As Of: 12/06/2022 02:47:09 PDT) Diagnoses(Active) Altered mental status Date: 12/06/2022 ; Diagnosis Type: Reason For Visit ; Confirmation: Confirmed ; Clinical Dx: Altered mental status ; Classification: Nursing ; Clinical Service: Non-Specified ; Code: IMO ; Probability: 0 ; Diagnosis Code: [id number] Hypotension Date: 12/06/2022 ; Diagnosis Type: Reason For Visit ; Confirmation: Confirmed ; Clinical Dx: Hypotension ; Classification: Nursing ; Clinical Service: Non- Specified ; Code: IMO ; Probability: 0 ; Diagnosis Code: 72888 Allergies (As Of: 12/06/2022 02:44:34 PDT) Allergies (Active) No Known Allergies Estimated Onset Date: Unspecified ; Created By: SABRINA Hudson Kasey L; Reaction Status: Active ; Category: Drug ; Substance: No Known Allergies ; Type: Allergy ; Updated By: SABRINA Hudson Kasey L; Reviewed Date: 12/06/2022 2:38 PDT Stroke Symptoms Details/BE FAST Stroke Symptom Onset : Unknown SABRINA Hudson Kasey L - 12/06/2022 2:38 PDT B.E.F.A.S.T Grid Speech Slurred : Yes SABRINA Hudson Kasey L - 12/06/2022 2:38 PDT Wake-up Stroke : Yes (Comment: wake up stroke [SABRINA Hudson Kasey L - 12/06/2022 2:38 PDT] ) Blood Glucose POC completed FAST : Yes SABRINA Hudson Kasey L - 12/06/2022 2:38 PDT ED Ambulance Name ED Amb [facility] : [facility]) SABRINA Hudson Kasey L - 12/06/2022 2:38 PDT Pain Assessment in Advanced Dementia Breathing Indep of Vocalization PAINAD : 1 = Occasional labored breathing. Short period of hyperventilation Negative Vocalization PAINAD : 0 = None Facial Expression PAINAD : 0 = Smiling or inexpressive Body Language PAINAD : 0 = Relaxed Consolability PAINAD : 0 = No need to console PAINAD Score : 1 SABRINA Hudson Kasey L - 12/06/2022 2:38 PDT [email or web address] Fall Risk Assessment Present To ED Because Of Fall : No Age Greater Than 70 : Yes Altered Mental Status : Yes Impaired Mobility : Yes Nursing Judgment : Yes Falls Assessment : Risk for falls Fall Interventions Initiated : Encourage patient prone to dizziness to move/change positions slowly, Use safety measures with chairs and wheelchairs, Placed yellow armband on patient, Keep side railsup, Keep bed in low position, Ensure path is clear, personal items in reach, Round hourly (emphasison toileting), Observable Room SABRINA Hudson Kasey L - 12/06/2022 2:38 PDT Electronically Signed on 12/06/22 02:38 AM SABRINA Hudson Kasey L Electronically Signed on 12/06/22 02:45 AM SABRINA Hudson Kasey L Portable XR Chest AP single view * MD Loyola Bennett: TRANSCRIBE, VERIFY, PERFORM, MODIFY Event Display: Report Authored Date: [id number] XR Chest 1 View Portable INDICATIONS: Congestion: , FINDINGS: A single frontal view of the chest is compared to prior study of December 08, 2022. No pneumothorax is noted. Cardiomegaly is stable. Bilateral lung interstitial and airspace opacities are overall improved. Blunting of the bilateral costophrenic angles is decreased. IMPRESSION: Improvement of alveolar pulmonary edema and/or pneumonia and minimal bilateral pleural effusions. Final Signed by: MD Loyola Bennett Signed (Electronic Signature): 12/10/2022 9:21 am Transcribed by: MARCY Parikh MD, Francis R: TRANSCRIBE, VERIFY, VERIFY, PERFORM Event Display: Report Authored Date: [id number] XR Chest 1 View Portable HISTORY: Hypoxia: , COMPARISON: 12/07/2022 IMPRESSION: Progressive bilateral pulmonary opacities with underlying effusions. Heart appears borderline prominent. Endotracheal tube and transesophageal tube of removed uneventfully. Left IJ introducer remains in situ. Grossly the osseous structures are similar the prior exam. Final Signed by: MD Parikh Francis R Signed (Electronic Signature): 12/08/2022 7:33 am Transcribed by: FANNIE Parikh MD, Francis R: TRANSCRIBE, VERIFY, PERFORM, VERIFY Event Display: Report Authored Date: [id number] XR Chest 1 View Portable HISTORY: Pneumonia: , COMPARISON: 12/06/2022 IMPRESSION: Progressive interstitial opacities. Dominant right side. Follow-through resolution. Correlate clinically. No leland cardiomegaly. Heart shifted to the right concordant with degree rotation of patient.Soft tissues, osseous structures, and indwelling support lines and tubes appear stable. Final Signed by: MD Parikh Francis R Signed (Electronic Signature): 12/07/2022 8:35 am Transcribed by: FANNIE Carpenter MD, Aaron J: TRANSCRIBE, VERIFY, PERFORM, VERIFY Event Display: Report Authored Date: [id number] XR Chest 1 View Portable INDICATION: Dyspnea COMPARISON: No prior IMPRESSION: A single frontal x-ray of the chest was performed and reveals the following: Endotracheal tube and NG tube appear in good position. Small pleural effusions are noted Mild congestion is evident There is no pneumothorax Final Signed by: MD Carpenter Aaron J Signed (Electronic Signature): 12/06/2022 8:48 am Transcribed by: IAN Carpenter MD, Aaron J: TRANSCRIBE, VERIFY, PERFORM, VERIFY Event Display: Report Authored Date: [id number] XR Chest 1 View Portable INDICATION: Dyspnea COMPARISON: Same day IMPRESSION: A single frontal x-ray of the chest was performed and reveals the following: Since the prior study there is a new left central line with the tip probably in the left brachiocephalic vein. Correlation suggested. Otherwise The pertinent lines and/or tubes remain unchanged in position when compared with the prior study. Diffuse mild opacity persists unchanged without pneumothorax Final Signed by: MD Carpenter Aaron J Signed (Electronic Signature): 12/06/2022 11:31 am Transcribed by: IAN Anthony MD, Francisco: TRANSCRIBE, VERIFY, PERFORM, VERIFY Event Display: Report Authored Date: [id number] XR Chest 1 View Portable INDICATION: ET tube placement: , COMPARISON: 12/06/2022 IMPRESSION:No pneumothorax. Bilateral infrahilar atelectasis/infiltrates. Cardiomediastinal silhouette is within normal limits. Supporting tubes are unchanged. Final Signed by: MD Anthony Francisco Signed (Electronic Signature): 12/06/2022 2:24 pm Transcribed by: FV CT Head WO contrast * MD Baron Troy K: TRANSCRIBE, VERIFY, PERFORM, VERIFY Event Display: Report Authored Date: [id number] CT Brain/Head w/o Contrast CLINICAL HISTORY: Slurred speech and generalized weakness. Hypotension. TECHNIQUE: CT head performed with multiplane reformats. COMPARISON: None available. FINDINGS: Saenz-white matter differentiation is normal. There is no mass effect or midline shift, intracranial hemorrhage, extra-axial fluid collection or hydrocephalus. The midbrain and brain stem are normal. There is a focal old infarct in the right cerebellar hemisphere. The basal cisterns are patent. No sellar or suprasellar abnormality. There is an old lacunar infarct left caudate head. Thereis generalized cerebral atrophy with commensurate prominence of the cerebral sulci. There are foci of decreased attenuation in the periventricular white matter. There are atherosclerotic calcifications of the cavernous portions of internal carotid arteries. The paranasal sinuses are clear. There is opacification of the left mastoid air cells. There is some fluid in the right mastoid air cells as well. Status post bilateral cataract surgeries. The orbital contents are unremarkable. The calvariumand extra cranial soft tissues appear normal. IMPRESSION: 1. No visible acute intracranial abnormality. 2. Cerebral atrophy. 3. Periventricular and central white matter small vessel ischemic disease. 4. Old lacunar infarct left caudate head. 5. Old focal infarct in the right cerebellar hemisphere. 6. Poor pneumatization of the left mastoid air cells, congenital or secondary to chronic mastoid effusion/mastoiditis. Mild right mastoid effusion/mastoiditis. DLP: 1008.90 mGy-cm. CTDI: 45.70 mGy. Note: All CT scans performed in the [facility] are performed using dose optimization techniques, including automated exposure control, iterative reconstruction, and adjustment of the mA and/or kV according to exam, patient size, and the body part being imaged. Final Signed by: MD Baron Troy K Signed (Electronic Signature): 12/06/2022 7:55 am Transcribed by: OVIDIO CTA Head vessels W contrast IV * MD Baron Troy K: TRANSCRIBE, VERIFY, PERFORM, VERIFY Event Display: Report Authored Date: [id number] CTA Brain/Head, CTA Neck INDICATION: Slurred speech and generalized weakness. Hypotension. TECHNIQUE: Intravenous administration of 96 ml Isovue-[address] head angiogram. Ahelical CTA scan of the head and neck was performed at 0.5mm intervals with 2mm reconstructions in coronal and sagittal planes. Following the examination, 3D and MIP reconstructions were performed rose [employer] 3D workstation. COMPARISON: None FINDINGS: CTA head: The anterior cerebral, middle cerebral and posterior cerebral arteries are normal. The basilar artery and its branches are normal. There are atherosclerotic calcifications of the cavernous portions of internal carotid arteries. The intracranial portions of the vertebral arteries appear normal. CTA neck: There is minimal atherosclerotic plaque at the origin of the right internal carotid artery. No significant atherosclerotic plaque in the right carotid bifurcation, left carotid bifurcation or proximal left internal carotid artery. Normal caliber common carotid and internal carotid arteries. The vertebral arteries demonstrate normal course and caliber. The visualized portions of the brachiocephalic and subclavian arteries are normal. The patient is intubated. There is also a nasogastric tube in place. There is a layering right pleural effusion. There is no lymphadenopathy or mass in the neck. The salivary and thyroid glands are normal. There are scattered mild degenerative changes of the cervical spine. The nasopharynx and oropharynx are normal. There is a retention cyst or polypin the right maxillary sinus with mild mucosal thickening here. IMPRESSION: CTA HEAD: 1. No aneurysm, stenosis or occlusion of the cerebral arterial vasculature. CTA NECK: 1. No aneurysm, stenosis, occlusion or dissection of the arterial vasculature in the neck. 2. Minimal calcified atherosclerotic plaque involving the origin of the right internal carotid artery. 3. Retention cyst or polyp right maxillary sinus along with mild chronic inflammatory changes here. 4. Layering right pleural effusion, incompletely visualized. DLP: 318.10 mGy-cm. CTDI: 8.30 mGy. Note: All CT scans performed in the [facility] are performed using dose optimization techniques, including automated exposure control, iterative reconstruction, and adjustment of the mA and/or kV according to exam, patient size, and the body part being imaged. Final Signed by: MD Baron Troy K Signed (Electronic Signature): 12/06/2022 7:59 am Transcribed by: OVIDIO CT Chest W contrast IV * MD Baron Troy K: TRANSCRIBE, VERIFY, PERFORM, VERIFY Event Display: Report Authored Date: [id number] CT Chest W/ Contrast CLINICAL HISTORY: Altered mental status. Generalized weakness. Hypotension. TECHNIQUE: CT chest performed with multiplane reformats. IV contrast: 96 mL of Isovue-370 COMPARISON: None available. FINDINGS: The patient is intubated with the endotracheal tube tip in satisfactory position. Nasogastric tube extending into the abdomen. There are calcified mediastinal lymph nodes. The largest lymph node is anterior to the rolando to the right of midline and measures 2.3 cm x 1.8 cm. There are also small calcified right hilar lymph nodes. There are atherosclerotic calcifications of the thoracic aorta. No aneurysm or dissection. No central pulmonary emboli. There is borderline cardiomegaly. There is no pericardial effusion or hiatal hernia. The thyroid gland, trachea and esophagus are unremarkable. There is a layering right pleural effusion, measuring up to 3.5 cm in thickness. There is adjacent atelec tasis. Borderline vascular congestion is seen. There is a small 8 mm subpleural noncalcified nodulein the left lower lobe. No pneumothoraces. There are mild emphysematous changes in the upper lungs and apices. There are multilevel endplate degenerative changes of the thoracic spine. No lytic or blastic bony lesion is seen. The soft tissues are unremarkable. IMPRESSION: 1. Layering right pleural effusion, measuring up to 3.5 cm in thickness, with adjacent atelectasis. 2. Borderline vascular congestion. 3. 8mm noncalcified indeterminate subpleural nodule in the left lower lobe, possibly a granuloma. 4. Borderline cardiomegaly. 5. Atherosclerotic calcifications of the thoracic aorta. Mitral annulus calcifications are also seen. 6. Calcified mediastinal lymph nodes, largest one measuring 2.3 cm x 1.8 cm. Could reflect old granulomatous and/or/or fungal infection versus treated lymphoma. Favor the former, given small calcified right hilar lymph nodes and 6 mm calcified granuloma in the right lower lobe. DLP: 907.60 mGy-cm. CTDI: 21.70 mGy. Note: All CT scans performed in the [facility] are performed using dose optimization techniques, including automated exposure control, iterative reconstruction, and adjustment of the mA and/or kV according to exam, patient size, and the body part being imaged. Final Signed by: MD Baron Troy K Signed (Electronic Signature): 12/06/2022 8:03 am Transcribed by: OVIDIO CTA Abdominal vessels and Pelvis vessels W contrast IV * MD Baron Troy K: TRANSCRIBE, VERIFY, PERFORM, VERIFY Event Display: Report Authored Date: [id number] CTA Abdomen and Pelvis CLINICAL HISTORY: Hypotension. Bloody stool. Generalized weakness. TECHNIQUE: CT angiogram of the abdomen and pelvis was performed with multiplane reformats. IV contrast: 96 mL of Isovue-370 Oral contrast: None. COMPARISON: None available. FINDINGS: There are atherosclerotic calcination the claudio of the abdominal aorta, without aneurysm or dissection. There are also atherosclerotic calcifications of the common iliac and external iliac arteries, with variable at least mild stenosis. There are atherogenic calcifications of the common femoral and proximal superficial femoral arteries, with variable mild to moderate stenosis. The celiac artery is widely patent. There is moderate stenosis of the origin of the superior mesenteric artery secondary to calcified atherosclerotic plaque. Small caliber right and left renal arteries. The right renal artery appears widely patent. There is perhaps mild stenosis left renal artery origin. Widely patent inferior mesenteric artery. The liver, gallbladder, pancreas and adrenal glands are normal. There are calcified granulomas in the spleen. No hydronephrosis or renal masses. Small nonobstructing calculus in the lower pole the right kidney. There is nonspecific mild stranding of the perinephric fat. No retroperitoneal or mesenteric lymphadenopathy. There is no free air or free fluid. The small bowel is normal. No GI tract obstruction is identified. The appendix is normal. There is moderate to moderately large stool burden in the colon with fecal distention of the rectum. There is fluid in the cecum and proximal ascending colon. No significant colonic wall thickening. There is a Nash catheter in the decompressed urinary bladder. There is gas in the anterior bladder lumen, probablyfrom Nash instrumentation. There is a fat-containing umbilical hernia. There are age-appropriate degenerative changes of the thoracic and lumbar spine. The soft tissues appear normal. IMPRESSION: 1. Moderately large stool burden in the colon. There is small amount of fluid in the right right colon. Mild fecal distention of the rectum. Query constipation/obstipation. No colonic wall thickeningis seen. 2. No small bowel obstruction. 3. Normal appendix. 4. Nash catheter in the decompressed urinary bladder. 5. Calcified granulomas in the spleen. 6. Punctate nonobstructing calcification in the right kidney. 7. Atherosclerotic calcifications of the abdominal aorta, common iliac arteries, external iliac arteries, common femoral arteries and proximal superficial femoral arteries, with variable mild to moderate stenosis. 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 Mild stenosis of the origin left renal artery is suggested. DLP: 568.70 mGy-cm. CTDI: 8.80 mGy. Note: All CT scans performed in the [facility] are performed using dose optimization techniques, including automated exposure control, iterative reconstruction, and adjustment of the mA and/or kV according to exam, patient size, and the body part being imaged. Final Signed by: MD Baron Troy K Signed (Electronic Signature): 12/06/2022 8:15 am Transcribed by: TKB XR Abdomen Single view * MD Carpenter Aaron J: TRANSCRIBE, VERIFY, PERFORM, VERIFY Event Display: Report Authored Date: [id number] XR Abdomen KUB 1 View INDICATION: Line placement: , COMPARISON: None FINDINGS: NG tube is noted in the stomach IMPRESSION: As above Final Signed by: MD Carpenter Aaron J Signed (Electronic Signature): 12/06/2022 4:35 pm Transcribed by: IAN Patient Care team information Care Team Personnel Name: Dora Cabral Position: Woods Superintendent Member Role: Nanotechnology Engineering Technician Name: Misc, PCP Unknown Position: care giver Member Role: Primary Care Physician Name: Bibi Robles Position: Emergency Medicine - Beverage Manager Member Role: ED Optical Fabricator Name: Rosita Leon DO (R)Jessie Position: Resident Member Role: Ordering Physician Address: Address: [address] [place] [address]- Name: SABRINA Ruff, Dickson Position: Emergency Medicine - Nurse Member Role: ED Nurse Name: Serenity Naylor Position: Emergency Medicine - Scribe Member Role: ED Scribe Name: MD Olvera Michael Position: Physician - Emergency Medicine Member Role: Supervising Physician Address: Address: [address] [place] [address]- Care Team Related Persons Name: Rafaela Nicole Name: Sindi Vasquez Address: Home
--- OUTSIDE RECORDS SUMMARY | 2024-02-18 04:06 | XMS_ITS | Continuity of Care Document ---
Author Organization [facility] Address [address] [place] [address] Care Team Providers Care Magnetic Testing Technician Name Role Phone Misc, PCP Unknown Primary Care Physician Unavail able Encounter Date(s): 04/17/22 - 04/17/22 [facility] [address] [place] [address] Encounter Diagnosis Paraphimosis(Discharge Diagnosis) - 04/17/22 Acute urinary retention(Discharge Diagnosis) - 04/17/22 Discharge Disposition: Discharge to Home (Routine) Attending Physician: MD Ramsay William Allergies, Adverse Reactions, Alerts No Known Allergies Assessment and Plan Future Scheduled Tests Laboratory* COVID-19,PCR PE 12/12/21 Immunizations Given and Recorded Vaccine Date Status Refusal Reason influenza, injectable, MDCK, quad, PF. 11/06/16 Re corded Medications Advair Diskus 100 mcg-50 mcg inhalation powder 1 puffs, Inhale, BID, # 60 blister, 0 Refill(s), Pharmacy: [facility], 180.34, cm, 12/01/21 22:33:00 PDT, Height/Length Measured, 89.9, kg, 12/02/21 3:09:00 PDT, Weight Dosing Start Date: 12/03/21 Status: Ordered Albuterol (Eqv-Proventil HFA) 90 mcg/inh inhalation aerosol = 2 puffs, Inhale, every 6 hr, PRN shortness of breath or wheezing, # 18 g, 0 Refill(s), Pharmacy: [facility], 180.34, cm, 12/01/21 22:33:00 PDT, Height/Length Measured, 89.9, kg, 12/02/21 3:09:00 PDT, Weight Dosing Start Date: 12/03/21 Status: Ordered aspirin 325 mg oral tablet 325 mg = 1 tab, Oral, QHS, # 30 tab, 0 Refill(s), Pharmacy: [facility], 180.34, cm, 12/01/21 22:33:00 PDT, Height/Length Measured, 89.9, kg, 12/02/21 3:09:00 PDT, Weight Dosing Start Date: 12/03/21 Status: Ordered cholecalciferol 1000 intl units oral tablet 25 mcg = 1 tab, Oral, Daily, # 30 tab, 0 Refill(s), Pharmacy: [facility], 180.34, cm, 12/01/21 22:33:00 PDT, Height/Length Measured, 89.9, kg, 12/02/21 3:09:00 PDT, Weight Dosing Start Date: 12/03/21 Status: Ordered Fish Oil 1000 mg oral capsule 1,000 mg = 1 cap, Oral, Daily Start Date: 12/02/21 Status: Ordered Flomax 0.4 mg oral capsule 0.4 mg = 1 cap, Oral, Daily, # 30 cap, 0 Refill(s), Pharmacy: [facility], 180.34, cm, 12/01/21 22:33:00 PDT, Height/Length Measured, 89.9, kg, 12/02/21 3:09:00 PDT, Weight Dosing Start Date: 12/03/21 Status: Ordered Lipitor 80 mg oral tablet 80 mg = 1 tab, Oral, QHS, # 30 tab, 0 Refill(s), Pharmacy: [facility], 180.34, cm, 12/01/21 22:33:00 PDT, Height/Length Measured, 89.9, kg, 12/02/21 3:09:00 PDT, Weight Dosing Start Date: 12/03/21 Status: Ordered lisinopril 2.5 mg oral tablet 2.5 mg = 1 tab, Oral, Daily, # 30 tab, 0 Refill(s), Pharmacy: [facility], 180.34, cm, 12/01/21 22:33:00 PDT, Height/Length Measured, 89.9, kg, 12/02/21 3:09:00 PDT, Weight Dosing Start Date: 12/03/21 Status: Ordered Metoprolol Succinate ER 25 mg oral tablet, extended release 25 mg = 1 tab, Oral, Daily, # 30 tab, 0 Refill(s), Pharmacy: [facility], 180.34, cm, 12/01/21 22:33:00 PDT, Height/Length Measured, 89.9, kg, 12/02/21 3:09:00 PDT, Weight Dosing Start Date: 12/03/21 Status: Ordered Plavix 75 mg oral tablet 75 mg = 1 tab, Oral, every evening, # 30 tab, 0 Refill(s), Pharmacy: [facility], 180.34, cm, 12/01/21 22:33:00 PDT, Height/Length Measured, 89.9, kg, 12/02/21 3:09:00 PDT, Weight Dosing Start Date: 12/03/21 Status: Ordered Spiriva 18 mcg inhalation capsule 18 mcg = 1 cap, Inhale, Daily, use two inhalations of one capsule for each dose, # 30 EA, 0 Refill(s), Pharmacy: [facility], 180.34, cm, 12/01/21 22:33:00 PDT, Height/Length Measured, 89.9,kg, 12/02/21 3:09:00 PDT, Weight Dosing Start Date: 12/03/21 Status: Ordered Mental Status 04/17/22 Eye Opening Response Jorge Luis Spontaneous ly Best Verbal Response Jorge Luis Oriented Best Motor Response Babb Obeys comman ds Jorge Luis Coma Score 15 Problem List Condition Confirmation Course Effective Dates [...] Effective Dates Health Status Clinical Service Informant Paraphimosis Discharge Diagnosis 04/17/22 Acute urinary retention Discharge Diagnosis 04/17/22 Non-Specified Vital Signs Most recent to oldest [Reference Range]: 1 2 3 Temperature Axillary [35.2-37.9 Deg C] 36.4 Deg C (04/17/22 6:56 PM) 36.2 Deg C (04/17/22 4:56 PM) Temperature Oral [35.8-37.9 Deg C] 36.5 Deg C (04/17/22 8:29 PM) 36.8 Deg C (04/17/22 11:22 AM) Peripheral Pulse Rate [60-100 bpm] 146 bpm *HI* (04/17/22 8:29 PM) 70 bpm (04/17/22 6:56 PM) 66 bpm (04/17/22 4:26 PM) Heart Rate Monitored [50-100 bpm] 73 bpm (04/17/22 6:56 PM) 77 bpm (04/17/22 1:47 PM) 79 bpm (04/17/22 1:13 PM) Respiratory Rate [14-20 br/min] 16 br/min (04/17/22 8:29 PM) 15 br/min (04/17/22 6:56 PM) 16 br/min (04/17/22 4:26 PM) Blood Pressure [90-140/60-90 mmHg] 144/89mmHg *HI* (04/17/22 8:29 PM) 155/92mmHg *HI* (04/17/22 6:56 PM) 147/86mmHg *HI* (04/17/22 4:56 PM) Mean Arterial Pressure, Monitor 113 mmHg (04/17/22 11:56 AM) Mean Arterial Pressure, Cuff [65-140 mmHg] 107 mmHg (04/17/22 8:29 PM) Mean Arterial Pressure, Cuff 103 mmHg (04/17/22 11:23 AM) Blood Pressure Location Right arm (04/17/22 8:29 PM) Right arm (04/17/22 4:56 PM) Blood Pressure Method Automatic (04/17/22 8:29 PM) Automatic (04/17/22 4:56 PM) Social History Social History Type Response Smoking Status Former smoker; Type: Cigarettes entered on: 04/17/22 Sex Hospital Discharge Instructions Patient Education 04/17/2022 20:03:42 Acute Urinary Retention, Male, [id number] Acute Urinary Retention, Male Acute urinary retention is when you are unable to pee (urinate). Acute urinary retention is common in older men. Prostates can get bigger, which blocks the flow of pee. HOME CARE ?Drink enough fluids to keep your pee clear or pale yellow. ?If you are sent home with a tube that drains the bladder (catheter), there will be a drainage bag attached to it. There are two types of bags. One is big that you can wear at night without having to empty it. One is smaller and needs to be emptied more often. ?Keep the drainage bag empty. ?Keep the drainage bag lower than your catheter. ?Only take medicine as told by your doctor. GET HELP IF: ?You have a low-grade fever. ?You have spasms or you are leaking pee when you have spasms. GET HELP RIGHT AWAY IF: ?You have chills or a fever. ?Your catheter stops draining pee. ?Your catheter falls out. ?You have increased bleeding that does not stop after you have rested and increased the amount of fluids you had been drinking. MAKE SURE YOU: ?Understand these instructions. ?Will watch your condition. ?Will get help right away if you are not doing well or get worse. This information is not intended to replace advice given to you by your health care provider. Make sure you discuss any questions you have with your health care provider. Document Released: 07/15/2008 Document Revised: 06/13/2015 Document Reviewed: 07/08/2013 [employer] Interactive Patient Education ??2016 [employer] 04/17/2022 20:03:09 Blankenship Catheter Care, Adult, [id number] Blankenship Catheter Care, Adult A Blankenship catheter is a soft, flexible tube. This tube is placed into your bladder to drain pee (urine). If you go home with this catheter in place, follow the instructions below. TAKING CARE OF THE CATHETER 1.?Wash your hands with soap and water. 2.?Put soap and water on a clean washcloth. ?Clean the skin where the tube goes into your body. ?Clean away from the tube site. ?Never wipe toward the tube. ?Clean the area using a circular motion. ?Remove all the soap. Pat the area dry with a clean towel. For males, reposition the skin that covers the end of the penis (foreskin). 3.?Attach the tube to your leg with tape or a leg strap. Do not stretch the tube tight. If you are using tape, remove any stickiness left behind by past tape you used. 4.?Keep the drainage bag below your hips. Keep it off the floor. 5.?Check your tube during the day. Make sure it is working and draining. Make sure the tube doesnot curl, twist, or bend. 6.?Do not pull on the tube or try to take it out. TAKING CARE OF THE DRAINAGE BAGS You will have a large overnight drainage bag and a small leg bag. You may wear the overnight bag any time. Never wear the small bag at night. Follow the directions below. Emptying the Drainage Bag Empty your drainage bag when it is ? full or at least 2???3 times a day. 1.?Wash your hands with soap and water. 2.?Keep the drainage bag below your hips. 3.?Hold the dirty bag over the toilet or clean container. 4.?Open the pour spout at the bottom of the bag. Empty the pee into the toilet or container. Do not let the pour spout touch anything. 5.?Clean the pour spout with a gauze pad or cotton ball that has rubbing alcohol on it. 6.?Close the pour spout. 7.?Attach the bag to your leg with tape or a leg strap. 8.?Wash your hands well. Changing the Drainage Bag Change your bag once a month or sooner if it starts to smell or look dirty. 1.?Wash your hands with soap and water. 2.?Pinch the rubber tube so that pee does not spill out. 3.?Disconnect the catheter tube from the drainage tube at the connection valve. Do not let the tubes touch anything. 4.?Clean the end of the catheter tube with an alcohol wipe. Clean the end of a the drainage tubewith a different alcohol wipe. 5.?Connect the catheter tube to the drainage tube of the clean drainage bag. 6.?Attach the new bag to the leg with tape or a leg strap. Avoid attaching the new bag too tightly. 7.?Wash your hands well. Cleaning the Drainage Bag 1.?Wash your hands with soap and water. 2.?Wash the bag in warm, soapy water. 3.?Rinse the bag with warm water. 4.?Fill the bag with a mixture of white vinegar and water (1 cup vinegar to 1 quart warm water [.2 liter vinegar to 1 liter warm water]). Close the bag and soak it for 30 minutes in the solution. 5.?Rinse the bag with warm water. 6.?Hang the bag to dry with the pour spout open and hanging downward. 7.?Store the clean bag (once it is dry) in a clean plastic bag. 8.?Wash your hands well. PREVENT INFECTION ?Wash your hands before and after touching your tube. ?Take showers every day. Wash the skin where the tube enters your body. Do not take baths. Replace wet leg straps with dry ones, if this applies. ? Do not use powders, sprays, or lotions on the genital area. Only use creams, lotions, or ointments as told by your doctor. ?For females, wipe from front to back after going to the bathroom. ?Drink enough fluids to keep your pee clear or pale yellow unless you are told not to have too much fluid (fluid restriction). ? Do not let the drainage bag or tubing touch or lie on the floor. ?Wear cotton underwear to keep the area dry. GET HELP IF: ?Your pee is cloudy or smells unusually bad. ?Your tube becomes clogged. ?You are not draining pee into the bag or your bladder feels full. ?Your tube starts to leak. GET HELP RIGHT AWAY IF: ?You have pain, puffiness (swelling), redness, or yellowish-white fluid (pus) where the tube enters the body. ?You have pain in the belly (abdomen), legs, lower back, or bladder. ?You have a fever. ?You see blood fill the tube, or your pee is pink or red. ?You feel sick to your stomach (nauseous), throw up (vomit), or have chills. ?Your tube gets pulled out. MAKE SURE YOU: ?Understand these instructions. ?Will watch your condition. ?Will get help right away if you are not doing well or get worse. This information is not intended to replace advice given to you by your health care provider. Make sure you discuss any questions you have with your health care provider. Document Released: 05/24/2013 Document Revised: 02/17/2015 Document Reviewed: 05/24/2013 [employer] Interactive Patient Education ??2016 [employer]. 04/17/2022 20:03:02 Paraphimosis Paraphimosis Paraphimosis is a condition that involves the foreskin of the penis (the fold of skin that stretches over the tip of the penis). It can occur in boys or men who have not been circumcised (had the foreskin removed). Or, it can develop if the entire foreskin was not removed in circumcision. It also can occur if the procedure was done incorrectly. Paraphimosis can develop if the foreskin is very tight. It can become stuck when it is pulled back.It cannot be returned to its normal position. This can keep blood from flowing to the tip of the penis. It can cause swelling and pain. Infection can result. This is a serious condition. It can be an emergency. Do not delay in getting treatment. CAUSES Causes of paraphimosis include: ?A foreskin that is tighter than normal. ?Infection under the foreskin. This could be caused by: ?Not cleaning the tip of the penis well. ?Genital piercing. ?Another medical condition, such as diabetes. ?Trauma to the area. For example, the tip of the penis might have been hit hard. ?A foreskin that has been pulled back for too long. ?A forceful retraction of the foreskin in attempting to clean the penis. This can cause the head of the penis to swell. Then, the foreskin cannot return to its natural position. SYMPTOMS ?When the foreskin is retracted (pulled back), it stays in that position. ?Pain, often at the tip of the penis. ?Swelling of the penis. DIAGNOSIS To decide if you have paraphimosis, a health care provider will probably: ?Ask about symptoms you have noticed. ?Ask about your health overall. ?Ask about any problems you have had with the penis or foreskin. ?Examine the penis. TREATMENT Paraphimosis can be treated several ways. Most of the time, treatment can be done in a clinic or a health care provider's office. Be sure to discuss the different options with your health care provider. They include: ?Forcing the foreskin back over the tip of the penis. You may be given painkillers for this procedure. Also, any swelling must be reduced first. To do this: ?Ice may be used. ?A bandage may be wrapped tightly around the penis. ?[place] may be used to drain any pus or blood that is causing the swelling. ?Dorsal slit procedure. A small cut is made in the tightened foreskin. This frees it. Then, it can be pulled back into place. ?Circumcision. This is surgery to remove the foreskin. It may be needed if the foreskin cannot be moved back into place. This also would prevent paraphimosis from developing again. HOME CARE INSTRUCTIONS ?The treated area may be covered with gauze or a bandage. What you will need to do will depend on the treatment you had. Ask: ?How often the bandage should be changed. ?If the area can get wet. ?When you can leave the skin uncovered. ?Apply any creams that your health care provider prescribed. Follow the directions carefully. ?Take any medications prescribed by your health care provider. Follow the directions carefully. ?Learn how to clean and care for the tip of the penis after treatment. After the swelling hassubsided, talk to your health care provider about the proper way to care for the hygiene of the penis. SEEK MEDICAL CARE IF: ?The treated area of skin does not heal. It can become more irritated and red or bloody. ?Urination is difficult or painful. ?Pain in the penis continues, even after taking pain medication. ?You have any questions about how to use creams or medications that were prescribed. ?You develop a fever of more than 101??F (38.3??C). SEEK IMMEDIATE MEDICAL CARE IF: You develop a fever of more than 102.0??F (38.9??C). This information is not intended to replace advice given to you by your health care provider. Make sure you discuss any questions you have with your health care provider. Document Released: 11/24/2009 Document Revised: 02/17/2015 Document Reviewed: 04/24/2015 Elsevier Interactive Patient Education ??2016 [employer] Follow Up Care 04/17/2022 11:22:22 With:LEONIDES Cortes Unknown Address:Unknown When:1 week Patient Care team information Personnel Name: Sophia, PCP Unknown
--- OUTSIDE RECORDS SUMMARY | 2024-02-18 04:06 | XMS_ITS ---
Author Organization [facility] Address [address] [place] [address]- Care Team Providers Care Aircraft Painter Name Role Phone Misc, PCP Unknown Primary Care Physician Unavail able Encounter Date(s): 12/12/21 - 12/12/21 [facility] 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) - 12/12/21 Chronic diastolic CHF (congestive heart failure)(Discharge Diagnosis) - 12/12/21 Discharge Disposition: Discharge to Home (Routine) Attending Physician: MD Mookie, Naz De Guzman Vital Signs 12/12/21 Temperature Tympanic 36.9 Deg C (Normal is 35.8-37.9 Deg C) Peripheral Pulse Rate 74 bpm (Normal is 60-100 bpm) Respiratory Rate 14 br/min (Normal is 14-2 0 br/min) Blood Pressure 147/77mmHg (Normal is 90-14 0/60-90 mmHg) Mean Arterial Pressure, Cuff 100 mmHg (No rmal is 65-140 mmHg) Systolic Blood Pressure 2 130 mmHg Diastolic Blood Pressure 2 69 mmHg Problem List Condition Effective Dates Status Health Status Inform ant Chronic diastolic CHF (conge stive heart failure)(Confirmed) Active Chronic obstructive pulmonar y disease(Confirmed) Active HLD (hyperlipidemia)(Confirmed) Active Hypertension(Confirmed) Active Stenosis of left internal ca rotid artery(Confirmed) Active Prediabetes(Confirmed) Active Tobacco dependence(Confirmed) Active Allergies, Adverse Reactions, Alerts No Known Allergies Medications albuterol (Albuterol (Eqv-Pr oventil HFA) 90 mcg/inh inhalation aerosol) Status: Ordered Start Date: 12/03/21 2 Puffs Inhale (breathe in) every 6 hours as needed shortness of breath or wheezing. Refills: 0. Ordering provider: MD Mcgraw Vajeeh [facility] [address], [place] [phone] aspirin (aspirin 325 mg oral tablet) Status: Ordered Start Date: 12/03/21 1 tab Oral (given by mouth) At Bedtime. Refills: 0. Ordering provider: MD Mcgraw Vajeeh [facility] [address], [place] [id number] atorvastatin (Lipitor 80 mg oral tablet) Status: Ordered Start Date: 12/03/21 1 tab Oral (given by mouth) At Bedtime. Refills: 0. [facility] [address], [place] [id number] cholecalciferol (cholecalcif vikki 1000 intl units oral tablet) Status: Ordered Start Date: 12/03/21 1 tab Oral (given by mouth) Daily. Refills: 0. Ordering provider: MD Mcgraw Vajeeh [facility] [address], [place] [id number] clopidogrel (Plavix 75 mg or al tablet) Status: Ordered Start Date: 12/03/21 1 tab Oral (given by mouth) every evening. Refills: 0. Ordering provider: MD Mcgraw Vajeeh [facility] [address], [place] [phone] fluticasone-salmeterol (Adva ir Diskus 100 mcg-50 mcg inhalation powder) Status: Ordered Start Date: 12/03/21 1 Puffs Inhale (breathe in) 2 times a day. Refills: 0. Ordering provider: MD Mcgraw Vajeeh [facility] [address], [place] [id number] lisinopril (lisinopril 2.5 m g oral tablet) Status: Ordered Start Date: 12/03/21 1 tab Oral (given by mouth) Daily. Refills: 0. Ordering provider: MD Mcgraw Vajeeh [facility] [address], [place] [id number] metoprolol (Metoprolol Succi izabela ER 25 mg oral tablet, extended release) Status: Ordered Start Date: 12/03/21 1 tab Oral (given by mouth) Daily. Refills: 0. Ordering provider: MD Lucien, Chacorta [facility] [address], [place] [phone] omega-3 polyunsaturated fatt y acids (Fish Oil 1000 mg oral capsule) Status: Ordered Start Date: 12/02/21 1 Capsules Oral (given by mouth) Daily. tamsulosin (Flomax 0.4 mg or al capsule) Status: Ordered Start Date: 12/03/21 1 Capsules Oral (given by mouth) Daily. Refills: 0. Ordering provider: MD Lucien, [facility] [address], [place] [phone] tiotropium (Spiriva 18 mcg i nhalation capsule) Status: Ordered Start Date: 12/03/21 1 Capsules Inhale (breathe in) Daily. use two inhalations of one capsule for each dose. Refills: 0. Ordering provider: MD Lucien, [facility] [address], [place] [phone] Social History Social History Type Response Smoking Status Current every day heidy mathew; Type: Cigarettes; Tobacco use per day: 2 packs a day; entered on: 12/01/21 Assessment and Plan Future Appointments ?? Future Scheduled Tests Laboratory* COVID-19,PCR PE 12/12/21
--- OUTSIDE RECORDS SUMMARY | 2024-02-18 04:07 | XMS_ITS ---
Care Plan - [facility] Created on: February 18, 2024 Papito Joseph : 1945 Sex: Male Author Organization [facility] Address [address] [place] [address] Phone Care Team Providers Care Commercial Producer Name Role Phone MELVIN Frias, Mayra Unavailable [phone] NO PCP, NO PCP Primary Care Provider Unavailkenrick Branch MD, [facility], Balbir Unavailable [phone]
--- OUTSIDE RECORDS SUMMARY | 2024-02-18 04:07 | XMS_ITS | Clinical Summary ---
Author Organization [facility] Address [address] [place] [address] Phone Care Team Providers Care Costume Seamstress Name Role Phone MELVIN Frias, Mayra Unavailable [phone] NO PCP, NO PCP Primary Care Provider Unavailabl e Sarina ELLIS, [facility], [facility] Unavailable [phone] Reason for Visit and Chief Complaint Ablation Follow Up Plan of Treatment Atrial Fibrillation s/p ablation: Underwent ablation on 07/29/2022. Reviewed results which shows Successful electrical isolation of right and left pulmonary veins. Left atrial roof line. Ablation of cavotricuspid isthmus with bidirectional block. ECG in office shows NSR. With regards to stroke prevention, the patient's CHADS-VASc score is 7 (for age, hypertension, diabetes, CHF, stroke). 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 [facility] by stone carriage operator at the [facility]. Nicotine Dependence: States he continues smoking. Significant amount of time was spent explaining cardiovascular effects of nicotine use, which can lead to a higher risk of plaque rupture, causing M.I. and stroke. Increased risk of malignancy with smoking was also discussed. Patient expressed understanding of this. No follow up needed. Would be happy to see him in the future if necessary. [facility] - Last Documented On 08/12/2022 11:19AM ; [facility] Pending Tests Order Diagnosis Results Due Ordering P priti Lab Test Order - A - Lab Order CP Lab Order - CP 06/27/22 Margo cardoso PA-C Last Documented On 4:20PM ; [facility] Assessments Includes: Assessments from this encounter Findings - Shortness of breath - Last Documented On 08/12/2022 11:19AM ; [facility] - Fainting - Last Documented On 08/12/2022 11:19AM ; [facility] - Atrial fibrillation - Last Documented On 08/12/2022 11:19AM ; [facility] - Congestive heart failure - Last Documented On 08/12/2022 11:19AM ; [facility] - Aortic stenosis - Last Documented On 08/12/2022 11:19AM ; [facility] - Aortic regurgitation - Last Documented On 08/12/2022 11:19AM ; [facility] - Mitral regurgitation - Last Documented On 08/12/2022 11:19AM ; [facility] - Mitral annular calcification - Last Documented On 08/12/2022 11:19AM ; [facility] - Hypertension - Last Documented On 08/12/2022 11:19AM ; [facility] - Pulmonary hypertension - Last Documented On 08/12/2022 11:19AM ; [facility] - Abnormal hepatic enzyme / Liver enzyme abnormal - ultrasound done 01/2022 showed hepatomegaly without cirrhosis or mass or PH - Last Documented On 08/12/2022 11:19AM ; [facility] - Hyperlipidemia - Last Documented On 08/12/2022 11:19AM ; [facility] - Obesity - Last Documented On 08/12/2022 11:19AM ; [facility] - Type 2 diabetes mellitus - Last Documented On 08/12/2022 11:19AM ; [facility] - Stroke/cerebrovascular accident - Last Documented On 08/12/2022 11:19AM ; [facility] - Nicotine dependence - Last Documented On 08/12/2022 11:19AM ; [facility] Medical Equipment - Implanted Devices Includes: Current Devices No Medical Equipment Recorded Medications Includes: Medications discussed during this encounter and other current Medications Current Medications (continue as prescribed) Colchicine 0.6 MG Oral Capsule 07/30/2022 Provider: Margo Verdin PA-C Diagnosis: take one tablet twice a day Last Documented On 8:11PM By Paula Nicholas ; [facility] Saturnino M20 20 MEQ Oral Tablet Extended Release 06/20 Provider: Diagnosis: Last Documented On 3 4:20PM By Paula Nicholas ; [facility] Albuterol Sulfate HFA 108 (9 0 Base) MCG/ACT Inhalation Aerosol Solution 06/18/2022 Provider: Diagnosis: Last Documented On 3 3:39PM By Balbir Branch MD, FACC ; [facility] Atorvastatin Calcium 80 MG Oral Tablet 06/18/2022 Pr ovider: Diagnosis: Last Documented On 3 3:39PM By Balbir Branch MD, FACC ; [facility] Cefpodoxime Proxetil 200 MG Oral Tablet 06/18/2022 P rovider: Diagnosis: Last Documented On 3 3:39PM By Balbir Branch MD, FACC ; [facility] Finasteride 5 MG Oral Tablet 06/18/2022 Provider: Diagnosis: Last Documented On 3 3:39PM By Balbir Branch MD, FACC ; [facility] Latanoprost 0.005% Ophthalmic Solution 06/18/2022 Pr ovider: Diagnosis: Last Documented On 3 3:40PM By Balbir Branch MD, FACC ; [facility] levETIRAcetam 500 MG Oral Tablet 06/18/2022 Provider : Diagnosis: Last Documented On 3 3:40PM By Balbir Branch MD, FACC ; [facility] Lisinopril 10 MG Oral Tablet 06/18/2022 Provider: Diagnosis: Last Documented On 3 3:40PM By Balbir Branch MD, FACC ; [facility] metFORMIN HCl 500 MG Oral Tablet 06/18/2022 Provider : Diagnosis: Last Documented On 3 3:41PM By Balbir Branch MD, FACC ; [facility] Metoprolol Succinate ER 200 MG Oral Tablet Extended Release 24 Hour 06/18/2022 Provider: Diagnosis: Last Documented On 3 3:41PM By Balbir Branch MD, FACC ; [facility] Pantoprazole Sodium 40 MG Oral Tablet Delayed Release 06/18/2022 Provider: Diagnosis: Last Documented On 3 3:41PM By Balbir Branch MD, FACC ; [facility] traMADol HCl 50 MG Oral Tablet 06/18/2022 Provider: Diagnosis: Last Documented On 3 3:42PM By Balbir Branch MD, FACC ; [facility] Tamsulosin HCl 0.4 MG Oral Capsule 06/18/2022 Provid er: Diagnosis: Last Documented On 3 3:42PM By Balbir Branch MD, FACC ; [facility] Eliquis 5 MG Oral Tablet 06/18/2022 Provider: Diagnosis: Last Documented On 3 3:38PM By Balbir Branch MD, FACC ; [facility] Lasix 40 MG Oral Tablet 06/18/2022 [facility]: [facility] Diagnosis: Take 2 tablets in the mornin g and 1 tablet in the afternoon, no later than 2 PM. Last Documented On 3 7:02PM By Balbir Branch MD, FACC ; [facility] Medications Administered Includes: Administered Medications from this encounter No Administered Medications Recorded Vital Signs Includes: Vital Signs from this encounter Vital Name 08/12/2022 10:19A Blood Pressure Sitting (mmHg) 118/60 Pulse Rate-Sitting (bpm) 80 Height (in) 69 Weight (lb) 180 Body Mass Index (kg/m2) 26.6 Body Surface Area (m2) 2.0 Last Documented On: 08/12/2022 10:24AM ; [facility] Results Includes: Results discussed during this encounter No Results Recorded For Specified Dates History of Present Illness Includes: History of Present Illness from this encounter HPI Papito Joseph is a 77 year old male. - Allergy list reviewed - Medication reconciliation performed Papito Joseph was seen in my office today for follow up. For our records, please allow me to summarize the history and findings. The patient's active cardiovascular problems are as follows: - Obesity - Type II Diabetes Mellitus - Nicotine Dependence - Hypertension - Hyperlipidemia - Pulmonary Hypertension - Mitral Annular Calcification / Mitral Regurgitation - Aortic Stenosis / Aortic Regurgitation - Syncope - Carotid Artery Stenosis s/p Left CEA (01/2022) - Congestive Heart Failure - Cerebrovascular Accident (3 years ago) - Atrial Fibrillation s/p ablation (08/06/2022) The patient has been referred to discuss the rhythm control options for atrial fibrillation, and more specifically the option of catheter ablation. He was found to have new onset atrial fibrillation in February 2022 after being admitted to the hospital for possible sepsis. Cardioversion was attempted, however it was unsuccessful. He returns for follow up after ablation. He reports feeling shortness of breath every once in awhile, especially when walking. Social History Description Last Updated Smoking status : Current everyday smoker 1.5 packs daily 06/18/2022 Last Documented On 3 10:17AM ; [facility] Medical History Includes: Medical History addressed during this encounter Description Last Updated Shortness of breath 06/18/2022 Last Documented On 3 10:17AM ; [facility] Abnormal hepatic enzyme / Li tonio enzyme abnormal - ultrasound done 01/2022 showed hepatomegaly without cirrhosis or mass or PH 06/18/2022 Last Documented On 3 10:17AM ; [facility] Aortic regurgitation 06/18/2022 Last Documented On 3 10:17AM ; [facility] Aortic stenosis 06/18/2022 Last Documented On 3 10:17AM ; [facility] Atrial fibrillation 06/18/2022 Last Documented On 3 10:17AM ; [facility] Congestive heart failure 06/18/2022 Last Documented On 3 10:17AM ; [facility] Fainting 06/18/2022 Last Documented On 3 10:17AM ; [facility] History of type 2 diabetes mellitus 10/2022 Last Documented On 3 10:17AM ; [facility] Hyperlipidemia 06/18/2022 Last Documented On 3 10:17AM ; [facility] Hypertension 06/18/2022 Last Documented On 3 10:17AM ; [facility] Mitral annular calcification 06/18/2022 Last Documented On 3 10:17AM ; [facility] Mitral regurgitation 06/18/2022 Last Documented On 3 10:17AM ; [facility] Nicotine dependence 06/18/2022 Last Documented On 3 10:17AM ; [facility] Obesity 06/18/2022 Last Documented On 3 10:17AM ; [facility] Pulmonary hypertension 06/18/2022 Last Documented On 3 10:17AM ; [facility] Stroke/cerebrovascular accident 06/19/19 Last Documented On 3 10:17AM ; [facility] Family History Includes: Family History addressed during this encounter Description Last Updated Family medical history : No significant family history 06/18/2022 Last Documented On 3 10:17AM ; [facility] Review of Systems Includes: Review of Systems from this encounter Systemic: No fever, no chills, and no recent weight change. Head: No headache. Eyes: No partial visual field loss and no diplopia . No eye pain. Otolaryngeal: No tinnitus, no hearing loss and no epistaxis. Cardiovascular: Cardiovascular symptoms: See HPI. Pulmonary: Pulmonary symptoms: See HPI. Gastrointestinal: No heartburn and no melena . No nausea. Genitourinary: No polyuria . No pain with urination and no blood in the urine. No sexual dysfunction. Endocrine: No polydipsia . No swelling of the neck. Hematologic: No easy bleeding and no tendency for easy bruising . No clotting problems. No vein problems/stripping. Musculoskeletal: No lower leg pain with activity, no muscle aches, no arthralgias, no localized soft tissue swelling of lower leg, and not of the ankle. Neurological: No dizziness and no paralysis / CVA. No convulsions/seizures. No memory loss. Psychological: No anxiety and no depression. Skin: No rash . No sores/wounds. Mental Status Includes: Mental Status from this encounter Description Oriented to time, place, and person No hallucinations No anxiety No delusions Functional Status Includes: Functional Status from this encounter No Functional Status Recorded Physical Exam Includes: Physical Exam from this encounter Allergies Includes: Active Allergies No Known Allergies Encounters Encounter Provider Location Date Check-In Time Check-Out Time Diagnosis Ablation Follow Up Margo Verdin PA-C [facility] [address] 08/13/19 9:31AM 11:15AM Fainting (Syncope),Yolanda betes Mellitus Type 2,Nicotine Dependence,At rial Fibrillation, Aortic Regurgitation ,Congestive Heart Failure,Hyper tension Systemic,Mitr al Annular Calcification ,Mitral Regurgitation ,Pulmonary Hypertension, Aortic Stenosis,Obes ity,Shortness of Breath,Hyperl ipidemia,Abno rmal Hepatic Enzyme,Stroke /cerebrovascu lar Accident Insurance Includes: Active Insurance Policies Plan Name Member ID Group # Subscriber Relationship Effect laurie Dates [id number] Papito Joseph Self Clinical Notes Includes: Clinical Notes from this encounter No Clinical Notes Recorded
--- OUTSIDE RECORDS SUMMARY | 2024-02-18 04:07 | XMS_ITS | Clinical Summary ---
Author Organization [facility] Address [address] [place] [address] Phone Care Team Providers Care Development Engineer Name Role Phone MELVIN Frias, Mayra Unavailable [phone] NO PCP, NO PCP Primary Care Provider Unavailkenrick e Sarina ELLIS, [facility], Balbir Unavailable [phone] Reason for Visit and Chief Complaint Chart Prep Appt Plan of Treatment Atrial Fibrillation: With regards to rhythm management, we discussed the options of antiarrhythmic drug therapy versus catheter ablation. We discussed the procedural details of catheter ablation and possible risks including bleeding, vascular complications, perforation/tamponade, esophageal injury, pulmonary vein stenosis, stroke, and rarely . I do believe that he is a good candidate for ablation. I have quoted a success rate of 70-75% with single procedure. After deliberating over the options and weighing the risks versus benefits, the patient has decided to proceed with ablation. The patient was also made aware that technical support and expertise may be provided on site during the procedure specifically involving the use of electrophysiology equipment and three- dimensional mapping systems by industry representatives. With regards to stroke prevention, the patient's CHADS-VASc score is 7 (for age, hypertension, diabetes, CHF, stroke). I have advised to continue current medications including Eliquis. We will hold anticoagulation for 24 hours prior to the procedure. Risk for CAD / Carotid Stenosis: He has significant risk factors for CAD including age, gender, CHF, hypertension, diabetes, obesity, hyperlipidemia, current smoker, and carotid stenosis with left CEA done January 2022. He underwent a functional study. Reviewed results in office which shows no evidence of ischemia and normal EF of 75%. Congestive Heart Failure / Edema / Pulmonary Hypertension: Echocardiogram done 05/23/2022 showed EF of 60-65% with severe pHTN [PASP 70-80 mmHg]. Decompensated on exam. Continue Lasix to 80/40 mg. [facility]. Murmur / Mixed Valvular Disease: Echocardiogram done May 23, 2022 showed mild aortic regurgitation, mild aortic stenosis [mean gradient 15 mmHg], mitral annular calcification, and mild- moderate mitral regurgitation. [facility]. Nicotine Dependence: States he continues smoking. Significant amount of time was spent explaining cardiovascular effects of nicotine use, which can lead to a higher risk of plaque rupture, causing M.I. and stroke. Increased risk of malignancy with smoking was also discussed. Patient expressed understanding of this. Follow-up 2-3 weeks after ablation. - Last Documented On 08/06/2022 4:42PM ; [facility] Assessments Includes: Assessments from this encounter Findings - Shortness of breath - Last Documented On 08/06/2022 4:42PM ; [facility] - Fainting - Last Documented On 08/06/2022 4:42PM ; [facility] - Atrial fibrillation - Last Documented On 08/06/2022 4:42PM ; [facility] - Congestive heart failure - Last Documented On 08/06/2022 4:42PM ; [facility] - Aortic stenosis - Last Documented On 08/06/2022 4:42PM ; [facility] - Aortic regurgitation - Last Documented On 08/06/2022 4:42PM ; [facility] - Mitral regurgitation - Last Documented On 08/06/2022 4:42PM ; [facility] - Mitral annular calcification - Last Documented On 08/06/2022 4:42PM ; [facility] - Hypertension - Last Documented On 08/06/2022 4:42PM ; [facility] - Pulmonary hypertension - Last Documented On 08/06/2022 4:42PM ; [facility] - Abnormal hepatic enzyme / Liver enzyme abnormal - ultrasound done 01/2022 showed hepatomegaly without cirrhosis or mass or PH - Last Documented On 08/06/2022 4:42PM ; [facility] - Hyperlipidemia - Last Documented On 08/06/2022 4:42PM ; [facility] - Obesity - Last Documented On 08/06/2022 4:42PM ; [facility] - Type 2 diabetes mellitus - Last Documented On 08/06/2022 4:42PM ; [facility] - Stroke/cerebrovascular accident - Last Documented On 08/06/2022 4:42PM ; [facility] - Nicotine dependence - Last Documented On 08/06/2022 4:42PM ; [facility] Medical Equipment - Implanted Devices Includes: Current Devices No Medical Equipment Recorded Medications Includes: Medications discussed during this encounter and other current Medications Current Medications (continue as prescribed) Colchicine 0.6 MG Oral Capsule 07/30/2022 Provider: Margo Verdin PA-C Diagnosis: take one tablet twice a day Last Documented On 3 8:11PM By Paula Nicholas ; [facility] [...] Diagnosis: Last Documented On 3 3:42PM By Balibr Branch MD, FACC ; [facility] Tamsulosin HCl 0.4 MG Oral Capsule 06/18/2022 Provid er: Diagnosis: Last Documented On 3 3:42PM By Balbir Branch MD, FACC ; [facility] Eliquis 5 MG Oral Tablet 06/18/2022 Provider: Diagnosis: Last Documented On 3 3:38PM By Balbir Branch MD, FACC ; [facility] Lasix 40 MG Oral Tablet 06/18/2022 Provider: Alonso Branch MD, [facility] Diagnosis: Take 2 tablets in the mornin g and 1 tablet in the afternoon, no later than 2 PM. Last Documented On 3 7:02PM By Balbir Branch MD, FACC ; [facility] Medications Administered Includes: Administered Medications from this encounter No Administered Medications Recorded Results Includes: Results discussed during this encounter [...] He returns for follow up after ablation. Social History Description Last Updated Smoking status : Current everyday smoker 1.5 packs daily 07/01/2022 Last Documented On 3 2:21PM ; [facility] Medical History Includes: Medical History addressed during this encounter Description Last Updated Shortness of breath 07/01/2022 Last Documented On 3 2:21PM ; [facility] Mitral annular calcification 06/14/2022 Last Documented On 3 8:45AM ; [facility] Pulmonary hypertension 06/14/2022 Last Documented On 3 8:44AM ; [facility] Aortic regurgitation 06/14/2022 Last Documented On 3 8:44AM ; [facility] Aortic stenosis 06/14/2022 Last Documented On 3 8:44AM ; [facility] Mitral regurgitation 06/14/2022 Last Documented On 3 8:44AM ; [facility] Fainting 06/14/2022 Last Documented On 3 8:43AM ; [facility] History of type 2 diabetes mellitus 06/2022 Last Documented On 3 8:43AM ; [facility] Stroke/cerebrovascular accident 06/15/19 Last Documented On 3 8:43AM ; [facility] Hyperlipidemia 06/14/2022 Last Documented On 3 8:43AM ; [facility] Hypertension 06/14/2022 Last Documented On 3 8:43AM ; [facility] Nicotine dependence 06/14/2022 Last Documented On 3 8:43AM ; [facility] Obesity 06/14/2022 Last Documented On 3 8:43AM ; [facility] Abnormal hepatic enzyme / Li tonio enzyme abnormal - ultrasound done 01/2022 showed hepatomegaly without cirrhosis or mass or PH 06/14/2022 Last Documented On 3 8:43AM ; [facility] Atrial fibrillation 06/14/2022 Last Documented On 3 8:34AM ; [facility] Congestive heart failure 06/14/2022 Last Documented On 3 8:34AM ; [facility] Family History Includes: Family History addressed during this encounter Description Last Updated Family medical history : No significant family history 07/01/2022 Last Documented On 3 2:21PM ; [facility] Review of Systems Includes: [...] Location Date Check-In Time Check-Out Time Diagnosis Chart Prep Appt Balbir Branch MD, [facility]ACC 08/07/19 23 8:34AM 11:59PM Atrial Fibrillation, Congestive Heart Failure,Abnor mal Hepatic Enzyme,Nicoti ne Dependence,Hy pertension Systemic,Obes ity,Hyperlipi demia,Faintin g (Syncope),Yolanda betes Mellitus Type 2,Stroke/cere brovascular Accident,Aort ic Regurgitation ,Mitral Regurgitation ,Aortic Stenosis,Pulm onary Hypertension, Mitral Annular Calcification ,Shortness of Breath Insurance Includes: Active Insurance Policies Plan Name Member ID Group # Subscriber Relationship Effect laurie Dates [id number] Papito Joseph Self Clinical Notes Includes: Clinical Notes from this encounter No Clinical Notes Recorded
--- OUTSIDE RECORDS SUMMARY | 2024-02-18 04:07 | XMS_ITS | Clinical Summary ---
Author Organization [facility] Address [address] [place] [address] Phone Care Team Providers Care Die Operator Name Role Phone MELVIN Frias, Mayra Unavailable [phone] NO PCP, NO PCP Primary Care Provider Unavailkenrick e Sarina ELLIS, [facility], Balbir Unavailable [phone] Reason for Visit and Chief Complaint [place] Follow Up Plan of Treatment Atrial Fibrillation: With regards [...] weeks after ablation. - Last Documented On 07/10/2022 12:43PM ; [facility] Pending Tests Order Diagnosis Results Due Ordering P priti Lab Test Order - A - Lab Order CP Lab Order - CP 06/27/22 Margo cardoso PA-C Last Documented On 4:20PM ; [facility] Assessments Includes: Assessments from this encounter Findings - Shortness of breath - Last Documented On 07/10/2022 12:43PM ; [facility] - Fainting - Last Documented On 07/10/2022 12:43PM ; [facility] - Atrial fibrillation - Last Documented On 07/10/2022 12:43PM ; [facility] - Congestive heart failure - Last Documented On 07/10/2022 12:43PM ; [facility] - Aortic stenosis - Last Documented On 07/10/2022 12:43PM ; [facility] - Aortic regurgitation - Last Documented On 07/10/2022 12:43PM ; [facility] - Mitral regurgitation - Last Documented On 07/10/2022 12:43PM ; [facility] - Mitral annular calcification - Last Documented On 07/10/2022 12:43PM ; [facility] - Hypertension - Last Documented On 07/10/2022 12:43PM ; [facility] - Pulmonary hypertension - Last Documented On 07/10/2022 12:43PM ; [facility] - Abnormal hepatic enzyme / Liver enzyme abnormal - ultrasound done 01/2022 showed hepatomegaly without cirrhosis or mass or PH - Last Documented On 07/10/2022 12:43PM ; [facility] - Hyperlipidemia - Last Documented On 07/10/2022 12:43PM ; [facility] - Obesity - Last Documented On 07/10/2022 12:43PM ; [facility] - Type 2 diabetes mellitus - Last Documented On 07/10/2022 12:43PM ; [facility] - Stroke/cerebrovascular accident - Last Documented On 07/10/2022 12:43PM ; [facility] - Nicotine dependence - Last Documented On 07/10/2022 12:43PM ; [facility] Medical Equipment - Implanted [...] Oral Tablet 06/18/2022 Provider: Alonso Branch MD, FACC Diagnosis: Take 2 tablets in the mornin g and 1 tablet in the afternoon, no later than 2 PM. Last Documented On 3 7:02PM By Balbir Branch MD, FACC ; [facility] Medications Administered Includes: Administered Medications from this encounter No Administered Medications Recorded Vital Signs Includes: Vital Signs from this encounter Vital Name 07/10/2022 12:10P Blood Pressure Sitting (mmHg) 124/70 Pulse Rate-Sitting (bpm) 71 Height (in) 69 Weight (lb) 183 Body Mass Index (kg/m2) 27.0 Body Surface Area (m2) 2.0 Last Documented On: 07/10/2022 12:12PM ; [facility] Results Includes: Results discussed [...] Dependence - Hypertension - Hyperlipidemia - Pulmonary Hypertesion - Mitral Annular Calcification / Mitral Regurgitation - Aortic Stenosis / Aortic Regurgitation - Syncope - Carotid Artery Stenosis s/p Left CEA (01/2022) - Congestive Heart Failure - Cerebrovascular Accident (3 years ago) - Atrial Fibrillation The patient has been referred to discuss the rhythm control options for atrial fibrillation, and more specifically the option of catheter ablation. He was found to have new onset atrial fibrillation in February 2022 after being admitted to the hospital for possible sepsis. Cardioversion was attempted, however it was unsuccessful. He returns for follow up to review stress test results.. He tells he has edema on both ankles, improved from before Social History Description Last Updated Smoking status : Current everyday smoker 1.5 packs daily 06/18/2022 Last Documented On 3 12:06PM ; [facility] Medical History Includes: Medical History addressed during this encounter Description Last Updated Shortness of breath 06/18/2022 Last Documented On 3 12:06PM ; [facility] Abnormal hepatic enzyme / Li tonio enzyme abnormal - ultrasound done 01/2022 showed hepatomegaly without cirrhosis or mass or PH 06/18/2022 Last Documented On 3 12:06PM ; [facility] Aortic regurgitation 06/18/2022 Last Documented On 3 12:06PM ; [facility] Aortic stenosis 06/18/2022 Last Documented On 3 12:06PM ; [facility] Atrial fibrillation 06/18/2022 Last Documented On 3 12:06PM ; [facility] Congestive heart failure 06/18/2022 Last Documented On 3 12:06PM ; [facility] Fainting 06/18/2022 Last Documented On 3 12:06PM ; [facility] History of type 2 diabetes mellitus 10/2022 Last Documented On 3 12:06PM ; [facility] Hyperlipidemia 06/18/2022 Last Documented On 3 12:06PM ; [facility] Hypertension 06/18/2022 Last Documented On 3 12:06PM ; [facility] Mitral annular calcification 06/18/2022 Last Documented On 3 12:06PM ; [facility] Mitral regurgitation 06/18/2022 Last Documented On 3 12:06PM ; [facility] Nicotine dependence 06/18/2022 Last Documented On 3 12:06PM ; [facility] Obesity 06/18/2022 Last Documented On 3 12:06PM ; [facility] Pulmonary hypertension 06/18/2022 Last Documented On 3 12:06PM ; [facility] Stroke/cerebrovascular accident 06/19/19 Last Documented On 3 12:06PM ; [facility] Family History Includes: Family History addressed during this encounter Description Last Updated Family medical history : No significant family history 06/18/2022 Last Documented On 3 12:06PM ; [facility] Review of Systems Includes: [...] Location Date Check-In Time Check-Out Time Diagnosis [place] Follow Up Margo Verdin PA-C [facility] [place] [address] 07/11/19 23 12:02PM 12:43PM Fainting (Syncope),Yolanda betes Mellitus Type 2,Nicotine Dependence,At rial Fibrillation, Aortic Regurgitation ,Congestive Heart Failure,Hyper tension Systemic,Mitr al Annular Calcification ,Mitral Regurgitation ,Pulmonary Hypertension, Aortic Stenosis,Obes ity,Shortness of Breath,Hyperl ipidemia,Abno rmal Hepatic Enzyme,Stroke /cerebrovascu lar Accident Insurance Includes: Active Insurance Policies Plan Name Member ID Group # Subscriber Relationship Effect laurie Dates [id number] Papito Joseph Self Clinical Notes Includes: Clinical Notes from this encounter No Clinical Notes Recorded
--- OUTSIDE RECORDS SUMMARY | 2024-02-18 04:07 | XMS_ITS | Clinical Summary ---
Author Organization [facility] Address [address] [place] [address] Phone Care Team Providers Care Trumpet Teacher Name Role Phone MELVIN Frias Lawanna Unavailable [phone] NO PCP, NO PCP Primary Care Provider Amara Branch MD, FACJaleel, Balbir Unavailable [phone] Reason for Visit and Chief Complaint Lexiscan Study Plan of Treatment No Plan of Treatment Recorded Assessments Includes: Assessments from this encounter No Assessments Recorded Medical Equipment - Implanted Devices Includes: Current Devices No Medical Equipment Recorded Medications Includes: Medications discussed during this encounter and other current Medications Current Medications (continue as prescribed) Colchicine 0.6 MG Oral Capsule 07/30/2022 Provider: Margo Verdin PA-C Diagnosis: take one tablet twice a day Last Documented On 3 8:11PM By Paula Nicholas ; [facility] KlRiley M20 20 MEQ Oral Tablet Extended Release [...] On 3 3:38PM By Balbir Branch MD, [facility] ; [facility] Lasix 40 MG Oral Tablet 06/18/2022 Provider: Alonso Branch MD, [facility] Diagnosis: Take 2 tablets in the mornin g and 1 tablet in the afternoon, no later than 2 PM. Last Documented On 3 7:02PM By Balbir Branch MD, [facility] ; [facility] Medications Administered Includes: Administered Medications from this encounter No Administered Medications Recorded Results Includes: Results discussed during this encounter No Results Recorded For Specified Dates History of Present Illness Includes: History of Present Illness from this encounter No History of Present Illness Recorded Social History No Social History Recorded - Smoking Status Unknown Medical History Includes: Medical History addressed during this encounter No Medical History Recorded Family History Includes: Family History addressed during this encounter No Family History Recorded Review of Systems Includes: Review of Systems from this encounter No Review of Systems Recorded Mental Status Includes: Mental Status from this encounter No Mental Status Recorded Functional Status Includes: Functional Status from this encounter No Functional Status Recorded Physical Exam Includes: Physical Exam from this encounter No Physical Exam Recorded Allergies Includes: Active Allergies No Known Allergies Encounters Encounter Provider Location Date Check-In Time Check-Out Time Diagnosis Lexiscan Study Balbir Branch MD, [facility] Office 06/25/19 23 1:49PM 4:05PM Insurance Includes: Active Insurance Policies Plan Name Member ID Group # Subscriber Relationship Effect laurie Dates [id number] Papito Joseph Self Clinical Notes Includes: Clinical Notes from this encounter No Clinical Notes Recorded
--- OUTSIDE RECORDS SUMMARY | 2024-02-18 04:07 | XMS_ITS ---
Author Organization [facility] Address [address] [place] [address] Phone Care Team Providers Care Sand Mixer Machine Name Role Phone MELVIN Frias Lawanna Unavailable [phone] NO PCP, NO PCP Primary Care Provider Unavailabl kristal Branch MD, [facility], Balbir Unavailable [phone] Plan of Treatment Pending Tests Order Diagnosis Results Due Ordering P priti Lab Test Order - A - Lab Order CP Lab Order - CP 06/27/22 Margo cardoso PA-C Last Documented On 3 4:20PM ; [facility] Assessments Includes: Assessments for all patient encounters Findings Encounter Date Abnormal hepatic enzyme / Li tonio enzyme abnormal - ultrasound done 01/2022 showed hepatomegaly without cirrhosis or mass or PH Ablation Follow Up with Margo Herrerau PA-C 08/12/2022 Last Documented On 3 11:19AM ; [facility] Aortic regurgitation Ablation Follow Up with Anu Herrerau PA-C 08/12/2022 Last Documented On 3 11:19AM ; [facility] Aortic stenosis Ablation Follow Up with Margo Browerwu PA-C 08/12/2022 Last Documented On 3 11:19AM ; [facility] Atrial fibrillation Ablation Follow Up with Juancarlos Browerwu PA-C 08/12/2022 Last Documented On 3 11:19AM ; [facility] Congestive heart failure Ablation Follow Up with Margo Herrerau PA-C 08/12/2022 Last Documented On 3 11:19AM ; [facility] Fainting Ablation Follow Up with Margo Strange Obidiegwu PA-C 08/12/2022 Last Documented On 3 11:19AM ; [facility] Hyperlipidemia Ablation Follow Up with Margo L Obidiegwu PA-C 08/12/2022 Last Documented On 3 11:19AM ; [facility] Hypertension Ablation Follow Up with Margo Strange Obidiegwu PA-C 08/12/2022 Last Documented On 3 11:19AM ; [facility] Mitral annular calcification Ablation Fo llow Up with Margo Strange Obidiegwu PA-C 08/12/2022 Last Documented On 3 11:19AM ; [facility] Mitral regurgitation Ablation Follow Up with Anu Strange Obidiegwu PA-C 08/12/2022 Last Documented On 3 11:19AM ; [facility] Nicotine dependence Ablation Follow Up with Juancarlos Strange Obidiegwu PA-C 08/12/2022 Last Documented On 3 11:19AM ; [facility] Obesity Ablation Follow Up with Margo Strange Obidiegwu PA-C 08/12/2022 Last Documented On 3 11:19AM ; [facility] Pulmonary hypertension Ablation Follow Up with Aldo Strange Obidiegwu PA-C 08/12/2022 Last Documented On 3 11:19AM ; [facility] Shortness of breath Ablation Follow Up with Juancarlos Strange Obidiegwu PA-C 08/12/2022 Last Documented On 3 11:19AM ; [facility] Stroke/cerebrovascular accident Ablation Follow Up with Margo Strange Obidiegwu PA-C 08/12/2022 Last Documented On 3 11:19AM ; [facility] Type 2 diabetes mellitus Ablation Follow Up with Margo L Obidiegwu PA-C 08/12/2022 Last Documented On 3 11:19AM ; [facility] Abnormal hepatic enzyme / Li tonio enzyme abnormal - ultrasound done 01/2022 showed hepatomegaly without cirrhosis or mass or PH Chart Prep Appt with Balbir Branch MD, [facility] 08/06/2022 Last Documented On 3 4:42PM ; [facility] Aortic regurgitation Chart Prep Appt sanjiv Branch MD, [facility] 08/06/2022 Last Documented On 3 4:42PM ; [facility] Aortic stenosis Chart Prep Appt with Itz Branch MD, [facility] 08/06/2022 Last Documented On 3 4:42PM ; [facility] Atrial fibrillation Chart Prep Appt with Pete Branch MD, [facility] 08/06/2022 Last Documented On 3 4:42PM ; [facility] Congestive heart failure Chart Prep Appt with Balbir Branch MD, [facility] 08/06/2022 Last Documented On 3 4:42PM ; [facility] Fainting Chart Prep Appt with Itz Branch MD, [facility] 08/06/2022 Last Documented On 3 4:42PM ; [facility] Hyperlipidemia Chart Prep Appt with Itz Branch MD, [facility] 08/06/2022 Last Documented On 3 4:42PM ; [facility] Hypertension Chart Prep Appt with Itz Branch MD, [facility] 08/06/2022 Last Documented On 3 4:42PM ; [facility] Mitral annular calcification Chart Prep Appt with Balbir Branch MD, [facility] 08/06/2022 Last Documented On 3 4:42PM ; [facility] Mitral regurgitation Chart Prep Appt sanjiv Branch MD, [facility] 08/06/2022 Last Documented On 3 4:42PM ; [facility] Nicotine dependence Chart Prep Appt with Pete Branch MD, [facility] 08/06/2022 Last Documented On 3 4:42PM ; [facility] Obesity Chart Prep Appt with Itz Branch MD, [facility] 08/06/2022 Last Documented On 3 4:42PM ; [facility] Pulmonary hypertension Chart Prep Appt w kenji Branch MD, [facility] 08/06/2022 Last Documented On 3 4:42PM ; [facility] Shortness of breath Chart Prep Appt with Pete Branch MD, [facility] 08/06/2022 Last Documented On 3 4:42PM ; [facility] Stroke/cerebrovascular accident Chart Pr ep Appt with Balbir Branch MD, [facility] 08/06/2022 Last Documented On 3 4:42PM ; [facility] Type 2 diabetes mellitus Chart Prep Appt with Balbir Branch MD, [facility] 08/06/2022 Last Documented On 3 4:42PM ; [facility] Abnormal hepatic enzyme / Li tonio enzyme abnormal - ultrasound done 01/2022 showed hepatomegaly without cirrhosis or mass or PH [place] Follow Up with Margo L Obkashmiregwu PA-C 07/10/2022 Last Documented On 3 12:43PM ; [facility] Aortic regurgitation [place] Follow Up with Abhi y L Obkashmiregwu PA-C 07/10/2022 Last Documented On 3 12:43PM ; [facility] Aortic stenosis [place] Follow Up with Margo L O bidrizwangwu PA-C 07/10/2022 Last Documented On 3 12:43PM ; [facility] Atrial fibrillation [place] Follow Up with Margo L Obidiegwu PA-C 07/10/2022 Last Documented On 3 12:43PM ; [facility] Congestive heart failure [place] Follow Up with Anu nagaly L Obidiegwu PA-C 07/10/2022 Last Documented On 3 12:43PM ; [facility] Fainting [place] Follow Up with Margo L O bidiegwu PA-C 07/10/2022 Last Documented On 3 12:43PM ; [facility] Hyperlipidemia [place] Follow Up with Margo L O bidiegwu PA-C 07/10/2022 Last Documented On 3 12:43PM ; [facility] Hypertension [place] Follow Up with Margo L O bidiegwu PA-C 07/10/2022 Last Documented On 3 12:43PM ; [facility] Mitral annular calcification [place] Follow Up with Margo L Obidiegwu PA-C 07/10/2022 Last Documented On 3 12:43PM ; [facility] Mitral regurgitation [place] Follow Up with Abhi Strange Obidiegwu PA-C 07/10/2022 Last Documented On 3 12:43PM ; [facility] Nicotine dependence [place] Follow Up with Margo L Obidiegwu PA-C 07/10/2022 Last Documented On 3 12:43PM ; [facility] Obesity [place] Follow Up with Margo L O bidiegwu PA-C 07/10/2022 Last Documented On 3 12:43PM ; [facility] Pulmonary hypertension [place] Follow Up with Veronica nagy L Obidiegwu PA-C 07/10/2022 Last Documented On 3 12:43PM ; [facility] Shortness of breath [place] Follow Up with Margo Strange Obidiegwu PA-C 07/10/2022 Last Documented On 3 12:43PM ; [facility] Stroke/cerebrovascular accident [place] Fol low Up with Margo L Obidiegwu PA-C 07/10/2022 Last Documented On 3 12:43PM ; [facility] Type 2 diabetes mellitus [place] Follow Up with Anu nagaly L Obidiegwu PA-C 07/10/2022 Last Documented On 3 12:43PM ; [facility] Abnormal hepatic enzyme / Li tonio enzyme abnormal - ultrasound done 01/2022 showed hepatomegaly without cirrhosis or mass or PH Eval Evaluation with Balbir Branch MD, FACJaleel 06/18/2022 Last Documented On 3 3:48PM ; [facility] Aortic regurgitation Eval Evaluation sanjiv Branch MD, [facility] 06/18/2022 Last Documented On 3 3:48PM ; [facility] Aortic stenosis Eval Evaluation with Itz Branch MD, [facility] 06/18/2022 Last Documented On 3 3:48PM ; [facility] Atrial fibrillation Eval Evaluation with Pete Branch MD, [facility] 06/18/2022 Last Documented On 3 3:48PM ; [facility] Congestive heart failure Eval Evaluation with Balbir Branch MD, [facility] 06/18/2022 Last Documented On 3 3:48PM ; [facility] Fainting Eval Evaluation with Itz Branch MD, [facility] 06/18/2022 Last Documented On 3 3:48PM ; [facility] Hyperlipidemia Eval Evaluation with Itz Branch MD, [facility] 06/18/2022 Last Documented On 3 3:48PM ; [facility] Hypertension Eval Evaluation with Itz Branch MD, [facility] 06/18/2022 Last Documented On 3 3:48PM ; [facility] Mitral annular calcification Eval Evalua tion with Balbir Branch MD, [facility] 06/18/2022 Last Documented On 3 3:48PM ; [facility] Mitral regurgitation Eval Evaluation wit h Balbir Branch MD, [facility] 06/18/2022 Last Documented On 3 3:48PM ; [facility] Nicotine dependence Eval Evaluation with Pete Branch MD, [facility] 06/18/2022 Last Documented On 3 3:48PM ; [facility] Obesity Eval Evaluation with Itz Branch MD, [facility] 06/18/2022 Last Documented On 3 3:48PM ; [facility] Pulmonary hypertension Eval Evaluation w kenji Branch MD, [facility] 06/18/2022 Last Documented On 3 3:48PM ; [facility] Shortness of breath Eval Evaluation with Pete Branch MD, [facility] 06/18/2022 Last Documented On 3 3:48PM ; [facility] Stroke/cerebrovascular accident Eval Payton luation with Balbir Branch MD, [facility]ACC 06/18/2022 Last Documented On 3 3:48PM ; [facility] Type 2 diabetes mellitus Eval Evaluation with Balbir Branch MD, [facility] 06/18/2022 Last Documented On 3 3:48PM ; [facility] Medical Equipment - Implanted Devices Includes: Current and historical Devices No Medical Equipment Recorded Medications Includes: Current and historical Medications Current Medications (continue as prescribed) Colchicine [...] MG Oral Tablet 06/18/2022 Provider: Alonso Branch MD FACJaleel Diagnosis: Take 2 tablets in the mornin g and 1 tablet in the afternoon, no later than 2 PM. Last Documented On 3 7:02PM By Balbir Branch MD, FACC ; [facility] Medications Administered Includes: Administered Medications in patient's chart No Administered Medications Recorded Results Includes: Results from 02/17/2023 through 02/18/2024 No Results Recorded For Specified Dates History of Present Illness History of Present Illness not supported for this document type No History of Present Illness Recorded Social History Description Last Updated Smoking status : Current everyday smoker 1.5 packs daily 06/18/2022 Last Documented On 3 3:48PM ; [facility] Medical History Includes: Medical History in patient's chart Description Last Updated Shortness of breath 06/18/2022 Last Documented On 3 3:48PM ; [facility] Abnormal hepatic enzyme / Li tonio enzyme abnormal - ultrasound done 01/2022 showed hepatomegaly without cirrhosis or mass or PH 06/18/2022 Last Documented On 3 3:48PM ; [facility] Aortic regurgitation 06/18/2022 Last Documented On 3 3:48PM ; [facility] Aortic stenosis 06/18/2022 Last Documented On 3 3:48PM ; [facility] Atrial fibrillation 06/18/2022 Last Documented On 3 3:48PM ; [facility] Congestive heart failure 06/18/2022 Last Documented On 3 3:48PM ; [facility] Fainting 06/18/2022 Last Documented On 3 3:48PM ; [facility] History of type 2 diabetes mellitus 10/2022 Last Documented On 3 3:48PM ; [facility] Hyperlipidemia 06/18/2022 Last Documented On 3 3:48PM ; [facility] Hypertension 06/18/2022 Last Documented On 3 3:48PM ; [facility] Mitral annular calcification 06/18/2022 Last Documented On 3 3:48PM ; [facility] Mitral regurgitation 06/18/2022 Last Documented On 3 3:48PM ; [facility] Nicotine dependence 06/18/2022 Last Documented On 3 3:48PM ; [facility] Obesity 06/18/2022 Last Documented On 3 3:48PM ; [facility] Pulmonary hypertension 06/18/2022 Last Documented On 3 3:48PM ; [facility] Stroke/cerebrovascular accident 06/19/19 Last Documented On 3 3:48PM ; [facility] Family History Includes: Family History in patient's chart Description Last Updated Family medical history : No significant family history 06/18/2022 Last Documented On 3 3:48PM ; [facility] Review of Systems Review of Systems not supported for this document type No Review of Systems Recorded Mental Status No Mental Status Recorded Functional Status No Functional Status Recorded Physical Exam Physical Exam not supported for this document type No Physical Exam Recorded Allergies Includes: Active, inactive, and resolved Allergies No Known Allergies Insurance Includes: Active Insurance Policies Plan Name Member ID Group # Subscriber Relationship Effect laurie Dates [id number] Papito Joseph Self Clinical Notes Includes: Signed Clinical Notes starting from 11/08/2022 No Clinical Notes Recorded
--- OUTSIDE RECORDS SUMMARY | 2024-02-18 04:07 | XMS_ITS ---
Author Organization [facility] Address [address] [place] [address] Care Team Providers Care Residential Glazier Name Role Phone Misc, PCP Unknown Primary Care Physician Unavail able Encounter Date(s): 12/01/21 - 12/03/21 [facility] [address] [place] [address] Encounter Diagnosis Hypertension(Discharge Diagnosis) - 12/01/21 Chronic obstructive pulmonary disease(Discharge Diagnosis) - 12/03/21 Acute cerebrovascular accident(Discharge Diagnosis) - 12/03/21 Stenosis of left internal carotid artery(Discharge Diagnosis) - 12/03/21 Tobacco dependence(Discharge Diagnosis) - 12/03/21 Chronic diastolic CHF (congestive heart failure)(Discharge Diagnosis) - 12/03/21 Discharge Disposition: Admitted to this Hospital as Inpatient Attending Physician: MD Lucien, Chacorta Melgar Admitting Physician: MD Kiera, Joe Reason for Visit CVAAneurysmal dilatation VSS covid neg neuro Vital Signs 12/03/21 Temperature Oral 36.6 Deg C (Normal is 35.8 -37.9 Deg C) Temperature Oral 36.4 Deg C (Normal is 35.8 -37.9 Deg C) Temperature Oral 36.7 Deg C (Normal is 35.8 -37.9 Deg C) Apical Heart Rate 115 bpm*HI* (Normal is 60- 100 bpm) Heart Rate Monitored 121 bpm*HI* (Normal is 50-100 bpm) Heart Rate Monitored 117 bpm*HI* (Normal is 50-100 bpm) Heart Rate Monitored 90 bpm (Normal is 50-100 bpm) Respiratory Rate 18 br/min (Normal is 14-2 0 br/min) Respiratory Rate 16 br/min (Normal is 14-2 0 br/min) Respiratory Rate 18 br/min (Normal is 14-2 0 br/min) Blood Pressure 137/77mmHg (Normal is 90-14 0/60-90 mmHg) Blood Pressure 151/88mmHg (Normal is 90-14 0/60-90 mmHg) Blood Pressure 125/77mmHg (Normal is 90-14 0/60-90 mmHg) Mean Arterial Pressure, Cuff 97 mmHg Mean Arterial Pressure, Cuff 93 mmHg Mean Arterial Pressure, Cuff 85 mmHg Blood Pressure Location Right arm Blood Pressure Location Left arm Blood Pressure Location Right arm Blood Pressure Method Automatic Blood Pressure Method Automatic Blood Pressure Method Automatic Urine Output Greater than 30mL/hr Yes Level of Consciousness SOV Alert/Calm 12/02/21 Temperature Temporal Artery 36.4 Deg C (Nor mal is 36.3-37.9 Deg C) Temperature Temporal Artery 36.0 Deg C*LOW* (Nor mal is 36.3-37.9 Deg C) Temperature Temporal Artery 36.8 Deg C (Nor mal is 36.3-37.9 Deg C) Peripheral Pulse Rate 73 bpm (Normal is 60-100 bpm) Peripheral Pulse Rate 80 bpm (Normal is 60-100 bpm) Peripheral Pulse Rate 92 bpm (Normal is 60-100 bpm) Mean Arterial Pressure, Monitor 109 mmHg Mean Arterial Pressure, Monitor 100 mmHg Mean Arterial Pressure, Monitor 100 mmHg Urine Output Greater than 30mL/hr Yes Level of Consciousness SOV Alert/Calm Level of Consciousness SOV Alert/Calm 12/01/21 Temperature Axillary 36.5 Deg C (Normal is 35.2-37.9 Deg C) Additional Information Vital Signs ED admit Problem List Condition Effective Dates Status Health [...] or wheezing. Refills: 0. Ordering provider: MD Lucien, Chacorta [facility] [address] [place], [place] [id number] aspirin (aspirin 325 mg oral tablet) Status: Ordered Start Date: 12/03/21 1 tab Oral (given by mouth) At Bedtime. Refills: 0. [facility]ing [facility]: [facility] [address], [place] [id number] atorvastatin (Lipitor 80 mg oral tablet) Status: Ordered Start Date: 12/03/21 1 tab Oral (given by mouth) At Bedtime. Refills: 0. Ordering provider: [facility] [address], [place] [id number] cholecalciferol (cholecalcif vikki 1000 intl units oral tablet) Status: Ordered Start Date: 12/03/21 1 tab Oral (given by mouth) Daily. Refills: 0. Ordering provider: [facility] [address], [place] [id number] clopidogrel (Plavix 75 mg or al tablet) Status: Ordered Start Date: 12/03/21 1 tab Oral (given by mouth) every evening. Refills: 0. Ordering provider: MD Lucien [facility] [address], [place] [id number] fluticasone-salmeterol (Adva ir Diskus 100 mcg-50 mcg inhalation powder) Status: Ordered Start Date: 12/03/21 1 Puffs Inhale (breathe in) 2 times a day. Refills: 0. Ordering [facility]: [facility] [address], [place] [phone] lisinopril (lisinopril 2.5 m g oral tablet) Status: Ordered Start Date: 12/03/21 1 tab Oral (given by mouth) Daily. Refills: 0. Ordering provider: [facility] [address], [place] [phone] metoprolol (Metoprolol Succi izabela ER 25 mg oral tablet, extended release) Status: Ordered Start Date: 12/03/21 1 tab Oral (given by mouth) Daily. Refills: 0. Ordering provider: MD Lucien, Chacorta [facility] [address], [place] [phone] omega-3 polyunsaturated fatt y acids (Fish Oil 1000 mg oral capsule) Status: Ordered Start Date: 12/02/21 1 Capsules Oral (given by mouth) Daily. tamsulosin (Flomax 0.4 mg or al capsule) Status: Ordered Start Date: 12/03/21 1 Capsules Oral (given by mouth) Daily. Refills: 0. Ordering provider: MD Lucien, Chacorta Melgar [facility] [address], [place] [phone] tiotropium (Spiriva 18 mcg i nhalation capsule) Status: Ordered Start Date: 12/03/21 1 Capsules Inhale (breathe in) Daily. use two inhalations of one capsule for each dose. Refills: 0. [facility]ing [facility]: [facility] [address], [place] [phone] metoprolol (Metoprolol Succi izabela ER (Toprol-XL)) Status: Completed Start Date: 12/03/21 Stop Date: 12/03/21 25 Milligrams Oral (given by mouth). Refills: 0. Results 12/03/21 WBC 13.31 x10^3/mcL (Normal is 4.00- 12.00 x10^3/mcL) RBC 4.91 x10^6/mcL (Normal is 4.60- 6.20 x10^6/mcL) Hgb 15.2 g/dL (Normal is 13.5- 17.5 g/dL) Hct 43.7 % (Normal is 40.0- 54.0 %) MCV 89.0 fL (Normal is 80.0- 100.0 fL) MCH 31.0 pg (Normal is 27.0- 34.0 pg) MCHC 34.8 g/dL (Normal is 30.0- 36.0 g/dL) Platelets 244 x10^3/mcL (Normal is 130-4 00 x10^3/mcL) MPV 11.3 fL (Normal is 9.4-1 2.4 fL) RDW-CV 15.0 % (Normal is 11.3- 14.8 %) RDW-SD 49.0 fL (Normal is 36.3- 48.9 fL) Neut Auto% 74.60 % (Normal is 42.00 -72.00 %) Lymp Auto% 12.40 % (Normal is 17.00 -45.00 %) [place] Auto% 12.10 % (Normal is 3.00- 10.00 %) Eos% Auto 0.40 % (Normal is 1.00- 10.00 %) Baso Auto% 0.20 % (Normal is 0.00- 2.00 %) Im Gr Auto% 0.30 % (Normal is 0.00- 2.00 %) NRBC% 0.00 % (Normal is <=1.0 0 %) Neut Abs 9.93 x10^3/mcL (Normal is 1.60- 8.30 x10^3/mcL) Lym Ab 1.65 x10^3/mcL (Normal is 1.00- 4.50 x10^3/mcL) [place] Abs 1.61 x10^3/mcL (Normal is 0.10- 0.90 x10^3/mcL) Eos Abs 0.05 x10^3/mcL (Normal is 0.00- 0.55 x10^3/mcL) Baso Abs 0.03 x10^3/mcL (Normal is 0.00- 0.20 x10^3/mcL) Im Gran Abs 0.04 x10^3/mcL (Normal is .01-0 .03 x10^3/mcL) NRBC Absolute 0.00 x10^3/mcL (Normal is <=.01 x10^3/mcL) Sodium Level 134.0 mmol/L (Normal is 135.0 -144.0 mmol/L) Potassium Level 3.7 mmol/L (Normal is 3.5-5 .1 mmol/L) Chloride Level 99 mmol/L (Normal is 101-1 11 mmol/L) CO2 27.8 mmol/L (Normal is 22.0- 32.0 mmol/L) Anion Gap 11.0 mmol/L (Normal is 4.0-1 6.0 mmol/L) Glucose Level 122 mg/dL (Normal is 74-11 8 mg/dL) BUN 11 mg/dL (Normal is 6-20 mg/dL) Creatinine Lvl 0.90 mg/dL (Normal is 0.50- 1.20 mg/dL) BUN/Creat Ratio 11.7 ratio (Normal is 6.0-2 7.0 ratio) Calcium Level 9.4 mg/dL (Normal is 7.5-1 0.4 mg/dL) eGFR CKD-EPI 88 1 Vitamin D 25 OH 27.17 ng/mL (Normal is 30.00 -100.00 ng/mL) 12/02/21 WBC 13.06 x10^3/mcL (Normal is 4.00- 12.00 x10^3/mcL) RBC 4.73 x10^6/mcL (Normal is 4.60- 6.20 x10^6/mcL) Hgb 14.6 g/dL (Normal is 13.5- 17.5 g/dL) Hct 42.1 % (Normal is 40.0- 54.0 %) MCV 89.0 fL (Normal is 80.0- 100.0 fL) MCH 30.9 pg (Normal is 27.0- 34.0 pg) MCHC 34.7 g/dL (Normal is 30.0- 36.0 g/dL) Platelets 259 x10^3/mcL (Normal is 130-4 00 x10^3/mcL) MPV 11.2 fL (Normal is 9.4-1 2.4 fL) RDW-CV 15.0 % (Normal is 11.3- 14.8 %) RDW-SD 48.7 fL (Normal is 36.3- 48.9 fL) Neut Auto% 76.60 % (Normal is 42.00 -72.00 %) Lymp Auto% 11.20 % (Normal is 17.00 -45.00 %) [place] Auto% 11.40 % (Normal is 3.00- 10.00 %) Eos% Auto 0.20 % (Normal is 1.00- 10.00 %) Baso Auto% 0.20 % (Normal is 0.00- 2.00 %) Im Gr Auto% 0.40 % (Normal is 0.00- 2.00 %) NRBC% 0.00 % (Normal is <=1.0 0 %) Neut Abs 10.01 x10^3/mcL (Normal is 1.60- 8.30 x10^3/mcL) Lym Ab 1.46 x10^3/mcL (Normal is 1.00- 4.50 x10^3/mcL) [place] Abs 1.49 x10^3/mcL (Normal is 0.10- 0.90 x10^3/mcL) Eos Abs 0.02 x10^3/mcL (Normal is 0.00- 0.55 x10^3/mcL) Baso Abs 0.03 x10^3/mcL (Normal is 0.00- 0.20 x10^3/mcL) Im Gran Abs 0.05 x10^3/mcL (Normal is .01-0 .03 x10^3/mcL) NRBC Absolute 0.00 x10^3/mcL (Normal is <=.01 x10^3/mcL) Teg Description Baseline Teg Split Time (SP) 5.6 minutes Teg Reaction(R) 6.2 minutes (Normal is 5.0-1 0.0 minutes) Teg Delta 0.6 Teg Kinetics(K) 1.8 minutes (Normal is 1.0-3 .0 minutes) Teg Angle 66.2 degrees (Normal is 53.0- 72.0 degrees) Teg Maximum(MA) 63.9 mm (Normal is 50.0- 70.0 mm) Teg G(Clot Strength) 8.9 kilodynes/sec (Normal i s 4.5-11.0 kilodynes/sec) Teg Lysis 30 3.4 % (Normal is 0.0-8 .0 %) Teg % ADP Aggregation 8.2 % Teg Net Clot Strength(Net G) 0.7 kilodynes/sec ( Normal is 4.6-10.9 kilodynes/sec) Teg % AA Inhibition 83.9 % Sodium Level 136.0 mmol/L (Normal is 135.0 -144.0 mmol/L) Potassium Level 4.0 mmol/L (Normal is 3.5-5 .1 mmol/L) Chloride Level 101 mmol/L (Normal is 101-1 11 mmol/L) CO2 28.1 mmol/L (Normal is 22.0- 32.0 mmol/L) Anion Gap 10.9 mmol/L (Normal is 4.0-1 6.0 mmol/L) Glucose Level 118 mg/dL (Normal is 74-11 8 mg/dL) BUN 9 mg/dL (Normal is 6-20 mg/dL) Creatinine Lvl 0.85 mg/dL (Normal is 0.50- 1.20 mg/dL) BUN/Creat Ratio 10.6 ratio (Normal is 6.0-2 7.0 ratio) Calcium Level 9.6 mg/dL (Normal is 7.5-1 0.4 mg/dL) Magnesium 1.6 mg/dL (Normal is 1.8-2 .5 mg/dL) HDL Cholesterol 35.6 mg/dL (Normal is 35.0- 85.0 mg/dL) Chol/HDL 3.9 ratio (Normal is 4.2-7 .3 ratio) Cholesterol Total 137.2 mg/dL (Normal is 10. 0-200.0 mg/dL) Triglycerides 60 mg/dL (Normal is 10-20 0 mg/dL) Chol/HDL Fast 3.9 ratio (Normal is 4.2-7 .3 ratio) Non HDL Chol 102 mg/dL LDL, Direct 98 mg/dL (Normal is <=100 mg/dL) eGFR CKD-EPI 90 2 BNP 155.34 pg/mL (Normal is <=100 .00 pg/mL) 12/01/21 WBC 10.05 x10^3/mcL (Normal is 4.00- 12.00 x10^3/mcL) RBC 4.41 x10^6/mcL (Normal is 4.60- 6.20 x10^6/mcL) Hgb 13.7 g/dL (Normal is 13.5- 17.5 g/dL) Hct 40.0 % (Normal is 40.0- 54.0 %) MCV 90.7 fL (Normal is 80.0- 100.0 fL) MCH 31.1 pg (Normal is 27.0- 34.0 pg) MCHC 34.3 g/dL (Normal is 30.0- 36.0 g/dL) Platelets 241 x10^3/mcL (Normal is 130-4 00 x10^3/mcL) MPV 11.5 fL (Normal is 9.4-1 2.4 fL) RDW-CV 15.1 % (Normal is 11.3- 14.8 %) RDW-SD 50.0 fL (Normal is 36.3- 48.9 fL) Neut Auto% 75.90 % (Normal is 42.00 -72.00 %) Lymp Auto% 11.90 % (Normal is 17.00 -45.00 %) [place] Auto% 10.80 % (Normal is 3.00- 10.00 %) Eos% Auto 0.70 % (Normal is 1.00- 10.00 %) Baso Auto% 0.40 % (Normal is 0.00- 2.00 %) Im Gr Auto% 0.30 % (Normal is 0.00- 2.00 %) NRBC% 0.00 % (Normal is <=1.0 0 %) Neut Abs 7.62 x10^3/mcL (Normal is 1.60- 8.30 x10^3/mcL) Lym Ab 1.20 x10^3/mcL (Normal is 1.00- 4.50 x10^3/mcL) [place] Abs 1.09 x10^3/mcL (Normal is 0.10- 0.90 x10^3/mcL) Eos Abs 0.07 x10^3/mcL (Normal is 0.00- 0.55 x10^3/mcL) Baso Abs 0.04 x10^3/mcL (Normal is 0.00- 0.20 x10^3/mcL) Im Gran Abs 0.03 x10^3/mcL (Normal is .01-0 .03 x10^3/mcL) NRBC Absolute 0.00 x10^3/mcL (Normal is <=.01 x10^3/mcL) PT 10.3 seconds (Normal is 9.3-1 1.5 seconds) INR 0.99 (Normal is 0.90- 1.11) Sodium Level 133.0 mmol/L (Normal is 135.0 -144.0 mmol/L) Potassium Level 4.4 mmol/L (Normal is 3.5-5 .1 mmol/L) Chloride Level 97 mmol/L (Normal is 101-1 11 mmol/L) CO2 31.1 mmol/L (Normal is 22.0- 32.0 mmol/L) Anion Gap 8.9 mmol/L (Normal is 4.0-1 6.0 mmol/L) Glucose Level 117 mg/dL (Normal is 74-11 8 mg/dL) BUN 12 mg/dL (Normal is 6-20 mg/dL) Creatinine Lvl 1.02 mg/dL (Normal is 0.50- 1.20 mg/dL) BUN/Creat Ratio 11.6 ratio (Normal is 6.0-2 7.0 ratio) Calcium Level 9.3 mg/dL (Normal is 7.5-1 0.4 mg/dL) Bilirubin Total 0.40 mg/dL (Normal is 0.40- 2.00 mg/dL) Protein Total 7.2 g/dL (Normal is 6.1-7 .9 g/dL) Albumin Level 4.3 g/dL (Normal is 3.5-5 .7 g/dL) AST 26 IntlUnit/L (Normal is 15-41 IntlUnit/L) ALT 31 IntlUnit/L (Normal is 3-36 IntlUnit/L) Alk Phos 64 IntlUnit/L (Normal is 34-10 4 IntlUnit/L) Hemoglobin A1c 5.7 % (Normal is 4.0-5 .6 %) eGFR CKD-EPI 76 3 Troponin-I HS 0.005 ng/mL (Normal is 0.000 -0.040 ng/mL) 1Result Comment: eGFR CKD-EPI Result created via Discern Rule: [GL_GFR_CALC_CKDEPI] 2Result Comment: eGFR CKD-EPI Result created via Discern Rule: [GL_GFR_CALC_CKDEPI] 3Result Comment: eGFR CKD-EPI Result created via Discern Rule: [GL_GFR_CALC_CKDEPI] Medications Administered During Your Visit acetaminophen (Tylenol) 650 Milligrams Oral (given by mouth) every 4 hours. as needed pain, mild (scale 1-3) for 45 Days. Refills: 0. albuterol (albuterol 2.5 mg/3 mL (0.083%) inhalation solution) 3 Milliliters Nebulized inhalation (inhale using nebulizer) once. Refills: 0. aspirin 325 Milligrams Oral (given by mouth) once. Refills: 0. aspirin 325 Milligrams Oral (given by mouth) every morning for 45 Days. Refills: 0. atorvastatin (Lipitor) 80 Milligrams Oral (given by mouth) At Bedtime for 45 Days. Refills: 0. benzonatate (Tessalon Perles) 100 Milligrams Oral (given by mouth) 3 times a day for 45 Days. Refills: 0. cholecalciferol 1,000 International unit Oral (given by mouth) Daily for 45 Days. Refills: 0. clopidogrel (Plavix) 75 Milligrams Oral (given by mouth) every evening for 45 Days. Refills: 0. fluticasone-salmeterol (Advair Diskus 100 mcg-50 mcg inhalation powder) 1 Puffs Inhale (breathe in) 2 times a day for 45 Days. Refills: 0. furosemide (Lasix) 40 Milligrams Intravenous Push Daily for 5 Days. Refills: 0. heparin (heparin 5,000 units/mL injectable) 1 Milliliters Subcutaneous (under the skin) every 12 hours. for 10 Days. Refills: 0. iopamidol 95 Milliliters IV Contrast once. Refills: 0. Lactated Ringers (Lactated Ringers Bolus) 500 Milliliters IV Bolus once. Refills: 0. magnesium sulfate 50 Milliliters/hour IV Piggyback once. Refills: 0. metFORMIN 500 Milligrams Oral (given by mouth) Daily for 45 Days. Refills: 0. metoprolol (Metoprolol Succinate ER (Toprol-XL)) 25 Milligrams Oral (given by mouth) Daily for 45 Days. Refills: 0. multivitamin (multivitamin adult, oral tablet) 1 tab Oral (given by mouth) Daily for 45 Days. Refills: 0. omega-3 polyunsaturated fatty acids 1,000 Milligrams Oral (given by mouth) Daily for 45 Days. Refills: 0. tamsulosin (Flomax) 0.4 Milligrams Oral (given by mouth) Daily for 45 Days. Refills: 0. Social History Social History Type Response Smoking Status Current every day sm oker; Type: Cigarettes; Tobacco use per day: 2 packs a day; entered on: 12/01/21 Assessment and Plan Future Appointments ?? Diagnostic Tests Pending * Flu A / B Screen 12/02/21 * [facility] Respiratory Panel 2.1 12/02/21 Instructions Patient Education CVA, Completed SMOKING CESSATION Stroke, Discharge Instructions Follow Up Care 12/01/2021 17:29:51 With:MD Mookie, Naz De Guzman Address: When:1 week With:F/U with PCP Address: When:1 week Comments:Needs Neurology referral via PCP
--- OUTSIDE RECORDS SUMMARY | 2024-02-18 04:07 | XMS_ITS | Clinical Summary ---
Author Organization [facility] Address [address] [place] [address] Phone Care Team Providers Care Cap Coverer Name Role Phone MELVIN Frias Lawanna Unavailable [phone] NO PCP, NO PCP Primary Care Provider Unavailkenrick Branch MD, FACC, Balbir Unavailable [phone] Reason for Visit and Chief Complaint Telephone Note Plan of Treatment Pending Tests Order Diagnosis Results Due Ordering P priti Lab Test Order - A - Lab Order CP Lab Order - CP 06/27/22 Margo cardoso PA-C Last Documented On 3 4:20PM ; [facility] Assessments Includes: Assessments from this encounter No [...] On 3 3:42PM By Balbir Branch MD, [facility] ; [facility] Eliquis 5 MG Oral Tablet 06/18/2022 Provider: Diagnosis: Last Documented On 3 3:38PM By Balbir Branch MD, [facility] ; [facility] Lasix 40 MG Oral Tablet 06/18/2022 Provider: Alonso Branch MD, [facility] Diagnosis: Take 2 tablets in the mornin g and 1 tablet in the afternoon, no later than 2 PM. Last Documented On 3 7:02PM By Balbir Branch MD, [facility] ; [facility] Medications Administered Includes: [...] Location Date Check-In Time Check-Out Time Diagnosis Telephone Note Margo Verdin PA-C 3 4:17PM 11:59PM Insurance Includes: Active Insurance Policies Plan Name Member ID Group # Subscriber Relationship Effect laurie [id number] Papito Joseph Self Clinical Notes Includes: Clinical Notes from this encounter No Clinical Notes Recorded
--- OUTSIDE RECORDS SUMMARY | 2024-02-18 04:08 | XMS_ITS | Continuity of Care Document ---
Author Name [facility] Organization [facility] Care Team Providers Care Adolescent Counselor Name Role Phone [facility] Unavailable Problems Problem Status Onset Date Classification Date Reported Comments Source Anemia, unspecified Active 03/30/2022 [facility] Chronic obstructive pulmonary disease, u Active 03/28/2022 [facility] Tobacco use Active 03/28/2022 [facility] Acute respiratory failure with hypoxia Active 03/28/2022 [facility] Effusion, right knee Active 03/28/2022 [facility] Pain in right knee Active 03/27/2022 [facility] Weakness Active 03/26/2022 [facility] Bacteremia Active 03/26/2022 [facility] Unspecified convulsions Active 03/26/2022 [facility] Unspecified atrial fibrillation Active 03/26/2022 [facility] Retention of urine, unspecified Active 03/26/2022 [facility] Presence of urogenital implants Active 03/26/2022 [facility] Personal history of transient ischemic a Active 03/26/2022 [facility] Prediabetes Active 03/26/2022 [facility] Hyperglycemia, unspecified Active 03/26/2022 [facility] Body mass index 30+ - obesity Active 04/12/2022 58 [facility] Diabetes Active 04/12/2022 58 [facility] Elevated serum cholesterol Active 04/12/2022 58 [facility] High blood pressure Active 04/12/2022 58 [facility] TIA (transient ischemic attack) Active [facility]tered mental status, unspecified Active [facility] Medications Medication Details Route Status Patient Instructions Ordering Provider Order Date Source Aspir 81 oral enteric coated tablet = 1 Tab, ORAL, DAILY, # 30 Tab, 0 Refill(s), Maintenance, Pharmacy: [facility] #[id number], 180.34, cm, 03/27/22 12:16:00 PST, Height/Length (cm), 86.3, kg, 03/26/22 18:15:00 PST, Dose calculation weight (kg) Active 58 [facility] Metoprolol Tartrate 50 mg oral tablet = 1 Tab, ORAL, BID, # 60 Tab, 0 Refill(s), Maintenance, Pharmacy: [facility] #[id number], 180.34, cm, 03/27/22 12:16:00 PST, Height/Length (cm), 86.3, kg, 03/26/22 18:15:00 PST, Dose calculation weight (kg) Active 58 [facility] atorvastatin 80 mg oral tablet = 1 Tab, ORAL, DAILY, # 30 Tab, 0 Refill(s), Maintenance, Pharmacy: [facility] #[id number], 180.34, cm, 03/27/22 12:16:00 PST, Height/Length (cm), 86.3, kg, 03/26/22 18:15:00 PST, Dose calculation weight (kg) Active 58 [facility] Eliquis 5 mg oral tablet = 1 Tab, ORAL, BID, # 60 Tab, 0 Refill(s), Maintenance, Pharmacy: [facility] #[id number], 180.34, cm, 03/27/22 12:16:00 PST, Height/Length (cm), 86.3, kg, 03/26/22 18:15:00 PST, Dose calculation weight (kg) Active 58 [facility] furosemide 20 mg oral tablet = 1 Tab, ORAL, DAILY, # 30 Tab, 0 Refill(s), Maintenance, Pharmacy: [facility] #[id number], 180.34, cm, 03/27/22 12:16:00 PST, Height/Length (cm), 86.3, kg, 03/26/22 18:15:00 PST, Dose calculation weight (kg) Active 58 [facility] tamsulosin 0.4 mg oral capsule = 1 Cap, ORAL, QBedtime, # 30 Cap, 0 Refill(s), Maintenance, Pharmacy: [facility] #[id number], 180.34, cm, 03/27/22 12:16:00 PST, Height/Length (cm), 86.3, kg, 03/26/22 18:15:00 PST, Dose calculation weight (kg) Active 023 58 [facility] lisinopril 10 mg oral tablet = 1 Tab, ORAL, DAILY, # 30 Tab, 0 Refill(s), Maintenance, Pharmacy: [facility] #[id number], 180.34, cm, 03/27/22 12:16:00 PST, Height/Length (cm), 86.3, kg, 03/26/22 18:15:00 PST, Dose calculation weight (kg) Active 023 58 [facility] digoxin 125 mcg (0.125 mg) oral tablet = 1 Tab, ORAL, DAILY, # 30 Tab, 0 Refill(s), Maintenance, Pharmacy: [facility] #[id number], 180.34, cm, 03/27/22 12:16:00 PST, Height/Length (cm), 86.3, kg, 03/26/22 18:15:00 PST, Dose calculation weight (kg) Active 023 58 [facility] cholecalciferol 1000 intl units oral tablet = 1 Tab, ORAL, DAILY, # 30 Tab, 0 Refill(s), Maintenance, Pharmacy: [facility] #[id number], 180.34, cm, 03/27/22 12:16:00 PST, Height/Length (cm), 86.3, kg, 03/26/22 18:15:00 PST, Dose calculation weight (kg) Active 023 58 [facility] budesonide 0.5 mg/2 mL inhalation suspension = 2 mL, INH, Q12H, # 120 mL, 0 Refill(s), Maintenance, Pharmacy: [facility] #[id number], 180.34, cm, 03/27/22 12:16:00 PST, Height/Length (cm), 86.3, kg, 03/26/22 18:15:00 PST, Dose calculation weight (kg) Active 023 58 [facility] nicotine 14 mg/24 hr transdermal film, extended release = 1 Patch, TOP, DAILY, X 7 Day(s), # 7 Patch, 0 Refill(s), Acute, Pharmacy: [facility] #[id number], 180.34, cm, 03/27/22 12:16:00 PST, Height/Length (cm), 86.3, kg, 03/26/22 18:15:00 PST, Dose calculation weight (kg) Active 023 58 [facility] Keppra 500 mg oral tablet = 1 Tab, ORAL, BID, # 60 Tab, 0 Refill(s), Maintenance, Pharmacy: [facility] #[id number], 180.34, cm, 03/27/22 12:16:00 PST, Height/Length (cm), 86.3, kg, 03/26/22 18:15:00 PST, Dose calculation weight (kg) Active 023 58 [facility] pantoprazole 40 mg oral enteric coated tablet = 1 Tab, ORAL, ACBkfst, # 30 Tab, 0 Refill(s), Maintenance, Pharmacy: [facility] #[id number], 180.34, cm, 03/27/22 12:16:00 PST, Height/Length (cm), 86.3, kg, 03/26/22 18:15:00 PST, Dose calculation weight (kg) Active 023 58 [facility] digoxin 0.125 mg, ORAL, TAB, 04/11/22 9:00:00 PST Active 023 58 [facility] digoxin 0.125 mg, ORAL, TAB, 04/10/22 9:00:00 PST Active 023 58 [facility] digoxin 0.125 mg, ORAL, TAB, 04/09/22 9:00:00 PST Active 023 58 [facility] docusate-senna 50 mg-8.6 mg oral capsule 0 Refill(s), Maintenance Active 023 50 [facility] Results Order Name Results Value Reference Range Date Interpretation Comments Source AutoDiff* Auto Neutrophil Percent 73.8 % 46.0 - 78.0 12/19 NA 2.16.840.1 .852011.3. 1355.2 AutoDiff* Auto Neutrophil Absolute 7.5 K/mm3 1.4 - 7.2 12/19 H 2.16.840.1 .335040.3. 1355.2 AutoDiff* Auto Lymphocyte Percent 12.5 % 9.0 - 42.0 12/19 NA 2.16.840.1 .901894.3. 1355.2 AutoDiff* Auto Lymphocyte Absolute 1.3 K/mm3 0.8 - 4.4 12/19 NA 2.16.840.1 .583465.3. 1355.2 AutoDiff* Auto Monocyte Percent 11.4 % 0.0 - 10.0 12/19 H 2.16.840.1 .228071.3. 1355.2 AutoDiff* Auto Monocyte Absolute 1.2 K/mm3 0.2 - 1.6 12/19 NA 2.16.840.1 .212302.3. 1355.2 AutoDiff* Auto Eosinophil Percent 1.3 % 0.0 - 7.0 12/19 NA 2.16.840.1 .198086.3. 1355.2 AutoDiff* Auto Eosinophil Absolute 0.1 K/mm3 0.0 - 0.7 12/19 NA 2.16.840.1 .248058.3. 1355.2 AutoDiff* Auto Basophil Percent 1.0 % 0.0 - 3.0 12/19 NA 2.16.840.1 .081249.3. 1355.2 AutoDiff* Auto Basophil Absolute 0.1 K/mm3 0.0 - 0.2 12/19 NA 2.16.840.1 .427550.3. 1355.2 AutoDiff* Auto NRBC % 0.1 % 12/19 NA 2.16.840.1 .702643.3. 1355.2 AutoDiff* Sex assigned at Male 12/19 NA 2.16.840.1 .288210.3. 1355.2 BNPep BNP B-Natriureti c Peptide 343 pg/mL 0 - 100 12/19 H The results of the BNP Test should be evaluated with all clinical and laboratory data available. If BNP Test results do not agree with the clinical evaluation, additional test should be performed. 2.16.840.1 .046183.3. 1355.2 BNPep Sex assigned at Male 12/19 NA 2.16.840.1 .500408.3. 1355.2 CBC WBC 10.10 K/mm3 4.50 - 11.00 12/19 NA 2.16.840.1 .635654.3. 1355.2 CBC RBC 3.34 M/mm3 4.50 - 5.90 12/19 L 2.16.840.1 .704506.3. 1355.2 CBC HGB 9.8 gm/dL 13.5 - 17.5 12/19 L 2.16.840.1 .531634.3. 1355.2 CBC HCT 30.4 % 37.0 - 49.0 12/19 L 2.16.840.1 .899050.3. 1355.2 CBC MCV 91.0 fL 80.0 - 99.0 12/19 NA 2.16.840.1 .775867.3. 1355.2 CBC MCH 29.3 pg 26.0 - 34.0 12/19 NA 2.16.840.1 .979918.3. 1355.2 CBC MCHC 32.2 gm/dL 32.5 - 35.5 12/19 L 2.16.840.1 .082720.3. 1355.2 CBC RDW 18.1 % 11.5 - 14.5 12/19 H 2.16.840.1 .555751.3. 1355.2 CBC PLT 437 K/mm3 150 - 400 12/19 H 2.16.840.1 .748227.3. 1355.2 CBC MPV 9.2 fL 7.4 - 10.4 12/19 NA 2.16.840.1 .508562.3. 1355.2 CBC Sex assigned at Male 12/19 NA 2.16.840.1 .365108.3. 1355.2 CMP Sodium Level 140 mmol/L 136 - 144 12/19 NA 2.16.840.1 .828495.3. 1355.2 CMP Potassium Level 4.3 mmol/L 3.5 - 5.2 12/19 NA 2.16.840.1 .482776.3. 1355.2 CMP Chloride Level 108 mmol/L 101 - 111 12/19 NA 2.16.840.1 .976064.3. 1355.2 CMP CO2/Carbon Dioxide 27 mmol/L 22 - 32 12/19 NA 2.16.840.1 .797411.3. 1355.2 CMP Anion Gap 5 mmol/L 5 - 15 12/19 NA 2.16.840.1 .806237.3. 1355.2 CMP Glucose, Random 92 mg/dL 70 - 110 12/19 NA 2.16.840.1 .867422.3. 1355.2 CMP BUN 10 mg/dL 7 - 29 12/19 NA 2.16.840.1 .934674.3. 1355.2 CMP Creatinine 0.9 mg/dL 0.5 - 1.4 12/19 NA 2.16.840.1 .899448.3. 1355.2 CMP BUN/Creat Ratio 11 15 - 24 12/19 L 2.16.840.1 .137813.3. 1355.2 CMP Osmolality, Calculated 278 mOsm/L 275 - 295 12/19 NA 2.16.840.1 .102948.3. 1355.2 CMP Calcium Level 8.4 mg/dL 8.9 - 10.3 12/19 L 2.16.840.1 .100360.3. 1355.2 CMP Total Protein 5.6 gm/dL 6.5 - 8.1 12/19 L 2.16.840.1 .711739.3. 1355.2 CMP Albumin Level 2.7 gm/dL 3.5 - 5.0 12/19 L 2.16.840.1 .560803.3. 1355.2 CMP Globulin Level 2.9 gm/dL 2.6 - 4.0 12/19 NA 2.16.840.1 .641696.3. 1355.2 CMP A/G Ratio 0.9 1.5 - 3.0 12/19 L 2.16.840.1 .131319.3. 1355.2 CMP ALP 66 IntUnit/L 30 - 114 12/19 NA 2.16.840.1 .246537.3. 1355.2 CMP ALT 11 IntUnit/L 14 - 63 12/19 L 2.16.840.1 .316704.3. 1355.2 CMP AST 12 IntUnit/L 15 - 41 12/19 L 2.16.840.1 .980821.3. 1355.2 CMP Bilirubin, Total 0.5 mg/dL 0.0 - 1.2 12/19 NA H-gklhdk-m-be nzoquinone imine (NAPQI), a metabolite of acetaminophen (paracetamol) , may generate erroneously low results in samples for patients that have taken toxic doses of acetaminophen (paracetamol) 2.16.840.1 .566487.3. 1355.2 CMP eGFR 88 mL/min/1.7 3m2 12/19 NA This eGFR equation utilizes the 2020 CKD-EPI creatinine equation.Stag es GFRNone or slight 1 >90 ml/minMild 2 60-89 ml/minModerat e 3 30-59 ml/minSevere 4 15-29 ml/minApproac jenny Failure 5 <15 ml/min 2.16.840.1 .091423.3. 1355.2 CMP Sex assigned at Male 12/19 NA 2.16.840.1 .435981.3. 1355.2 TSH3 TSH Thyroid Stim Hormone 3RD Generation 5.44 uInt Unit/mL 0.45 - 5.33 12/19 H Reference Ranges:Genera l Population (males and non- females): 0.45 - 5.33 Females, 1st Trimester: 0.05 - 3.70 Females, 2nd Trimester: 0.31 - 4.35 Females, 3rd Trimester: 0.41 - 5.18 2.16.840.1 .669398.3. 1355.2 TSH3 Sex assigned at Male 12/19 NA 2.16.840.1 .635314.3. 1355.2 AutoDiff* Auto Neutrophil Percent 68.9 % 46.0 - 78.0 04/10 NA [facility] AutoDiff* Auto Neutrophil Absolute 6.3 K/mm3 1.4 - 7.2 04/10 NA [facility] AutoDiff* Auto Lymphocyte Percent 17.6 % 9.0 - 42.0 04/10 NA [facility] AutoDiff* Auto Lymphocyte Absolute 1.6 K/mm3 0.8 - 4.4 04/10 NA [facility] AutoDiff* Auto Monocyte Percent 12.1 % 0.0 - 10.0 04/10 H [facility] AutoDiff* Auto Monocyte Absolute 1.1 K/mm3 0.2 - 1.6 04/10 NA [facility] AutoDiff* Auto Eosinophil Percent 0.8 % 0.0 - 7.0 04/10 NA [facility] AutoDiff* Auto Eosinophil Absolute 0.1 K/mm3 0.0 - 0.7 04/10 NA [facility] AutoDiff* Auto Basophil Percent 0.6 % 0.0 - 3.0 04/10 NA [facility] AutoDiff* Auto Basophil Absolute 0.1 K/mm3 0.0 - 0.2 04/10 NA [facility] AutoDiff* Sex assigned at Male 04/10 NA [facility] CBC WBC 9.20 K/mm3 4.50 - 11.00 04/10 NA [facility] CBC RBC 3.34 M/mm3 4.50 - 5.90 04/10 L [facility] CBC HGB 9.5 gm/dL 13.5 - 17.5 04/10 L [facility] CBC HCT 29.0 % 37.0 - 49.0 04/10 L [facility] CBC MCV 87.0 fL 80.0 - 99.0 04/10 NA [facility] CBC MCH 28.4 pg 26.0 - 34.0 04/10 NA [facility] CBC MCHC 32.6 gm/dL 32.5 - 35.5 04/10 NA [facility] CBC RDW 15.2 % 11.5 - 14.5 04/10 H [facility] CBC PLT 368 K/mm3 150 - 400 04/10 NA [facility] CBC MPV 8.6 fL 7.4 - 10.4 04/10 NA [facility] CBC Sex assigned at Male 04/10 NA [facility] CMP Sodium Level 138 mmol/L 136 - 144 04/10 NA [facility] CMP Potassium Level 3.9 mmol/L 3.5 - 5.2 04/10 NA [facility] CMP Chloride Level 101 mmol/L 101 - 111 04/10 NA [facility] CMP CO2/Carbon Dioxide 29 mmol/L 22 - 32 04/10 NA [facility] CMP Anion Gap 8 mmol/L 5 - 15 04/10 NA [facility] CMP Glucose, Random 104 mg/dL 70 - 110 04/10 NA [facility] CMP BUN 17 mg/dL 7 - 29 04/10 NA [facility] CMP Creatinine 1.0 mg/dL 0.5 - 1.4 04/10 [facility] CMP BUN/Creat Ratio 17 15 - 24 04/10 NA [facility] CMP Osmolality, Calculated 278 mOsm/L 275 - 295 04/10 NA [facility] CMP Calcium Level 8.6 mg/dL 8.9 - 10.3 04/10 L [facility] CMP Total Protein 6.1 gm/dL 6.5 - 8.1 04/10 L [facility] CMP Albumin Level 2.9 gm/dL 3.5 - 5.0 04/10 L [facility] CMP Globulin Level 3.2 gm/dL 2.6 - 4.0 04/10 NA [facility] CMP A/G Ratio 0.9 1.5 - 3.0 04/10 L [facility] CMP ALP 63 IntUnit/L 30 - 114 04/10 NA [facility] ALT 6 IntUnit/L 14 - 63 04/10 L [facility] AST 13 IntUnit/L 15 - 41 04/10 L [facility] Bilirubin, Total 0.4 mg/dL 0.0 - 1.2 04/10 NA S-zfphmm-z-be nzoquinone imine (NAPQI), a metabolite of acetaminophen (paracetamol) , may generate erroneously low results in samples for patients that have taken toxic doses of acetaminophen (paracetamol) [facility] CMP eGFR 82 mL/min/1.7 3m2 04/10 NA This eGFR equation utilizes the 2020 CKD-EPI creatinine equation.Stag es GFRNone or slight 1 >90 ml/minMild 2 60-89 ml/minModerat e 3 30-59 ml/minSevere 4 15-29 ml/minApproac jenny Failure 5 <15 ml/min [facility] CMP Sex assigned at Male 04/10 [facility] Mg Magnesium Level 1.8 mg/dL 1.8 - 2.4 04/10 [facility] Mg Sex assigned at Male 04/10 [facility] AutoDiff* Auto Neutrophil Percent 61.2 % 46.0 - 78.0 03/31 [facility] AutoDiff* Auto Neutrophil Absolute 4.0 K/mm3 1.4 - 7.2 03/31 [facility] AutoDiff* Auto Lymphocyte Percent 21.0 % 9.0 - 42.0 03/31 [facility] AutoDiff* Auto Lymphocyte Absolute 1.4 K/mm3 0.8 - 4.4 03/31 [facility] AutoDiff* Auto Monocyte Percent 15.6 % 0.0 - 10.0 03/31 H [facility] AutoDiff* Auto Monocyte Absolute 1.0 K/mm3 0.2 - 1.6 03/31 NA [facility] AutoDiff* Auto Eosinophil Percent 1.2 % 0.0 - 7.0 03/31 NA [facility] AutoDiff* Auto Eosinophil Absolute 0.1 K/mm3 0.0 - 0.7 03/31 NA [facility] AutoDiff* Auto Basophil Percent 1.0 % 0.0 - 3.0 03/31 NA [facility] AutoDiff* Auto Basophil Absolute 0.1 K/mm3 0.0 - 0.2 03/31 [facility] AutoDiff* Sex assigned at Male 03/31 [facility] Sodium Level 138 mmol/L 136 - 144 03/31 [facility] Potassium Level 4.5 mmol/L 3.5 - 5.2 03/31 [facility] Chloride Level 103 mmol/L 101 - 111 03/31 [facility] CO2/Carbon Dioxide 28 mmol/L 22 - 32 03/31 [facility] Anion Gap 7 mmol/L 5 - 15 03/31 [facility] Glucose, Random 116 mg/dL 70 - 110 03/31 H [facility] BUN 12 mg/dL 7 - 29 03/31 [facility] Creatinine 0.9 mg/dL 0.5 - 1.4 03/31 [facility] BUN/Creat Ratio 13 15 - 24 03/31 L [facility] Osmolality, Calculated 276 mOsm/L 275 - 295 03/31 [facility] Calcium Level 8.1 mg/dL 8.9 - 10.3 03/31 L [facility] eGFR 89 mL/min/1.7 3m2 03/31 NA This eGFR equation utilizes the 2020 CKD-EPI creatinine equation.Stag es GFRNone or slight 1 >90 ml/minMild 2 60-89 ml/minModerat e 3 30-59 ml/minSevere 4 15-29 ml/minApproac jenny Failure 5 <15 ml/min [facility] BMP Sex assigned at Male 03/31 NA [facility] CBC WBC 6.60 K/mm3 4.50 - 11.00 03/31 NA [facility] CBC RBC 2.86 M/mm3 4.50 - 5.90 03/31 L [facility] CBC HGB 8.4 gm/dL 13.5 - 17.5 03/31 L [facility] CBC HCT 25.4 % 37.0 - 49.0 03/31 L [facility] CBC MCV 88.9 fL 80.0 - 99.0 03/31 NA [facility] CBC MCH 29.3 pg 26.0 - 34.0 03/31 NA [facility] CBC MCHC 33.0 gm/dL 32.5 - 35.5 03/31 NA [facility] CBC RDW 14.7 % 11.5 - 14.5 03/31 H [facility] CBC PLT 362 K/mm3 150 - 400 03/31 NA [facility] CBC MPV 9.0 fL 7.4 - 10.4 03/31 NA [facility] CBC Sex assigned at Male 03/31 NA [facility] BMP Sodium Level 136 mmol/L 136 - 144 03/29 NA [facility] BMP Potassium Level 4.5 mmol/L 3.5 - 5.2 03/29 NA [facility] BMP Chloride Level 100 mmol/L 101 - 111 03/29 L [facility] BMP CO2/Carbon Dioxide 29 mmol/L 22 - 32 03/29 NA [facility] BMP Anion Gap 7 mmol/L 5 - 15 03/29 NA [facility] BMP Glucose, Random 99 mg/dL 70 - 110 03/29 NA [facility] BMP BUN 20 mg/dL 7 - 29 03/29 NA [facility] BMP Creatinine 1.0 mg/dL 0.5 - 1.4 03/29 NA [facility] BMP BUN/Creat Ratio 20 15 - 24 03/29 [facility] BMP Osmolality, Calculated 275 mOsm/L 275 - 295 03/29 NA [facility] BMP Calcium Level 8.2 mg/dL 8.9 - 10.3 03/29 L [facility] BMP eGFR 81 mL/min/1.7 3m2 03/29 NA This eGFR equation utilizes the 2020 CKD-EPI creatinine equation.Stag es GFRNone or slight 1 >90 ml/minMild 2 60-89 ml/minModerat e 3 30-59 ml/minSevere 4 15-29 ml/minApproac jenny Failure 5 <15 ml/min [facility] BMP Sex assigned at Male 03/29 [facility] AutoDiff* Auto Neutrophil Percent 65.4 % 46.0 - 78.0 03/29 [facility] AutoDiff* Auto Neutrophil Absolute 4.6 K/mm3 1.4 - 7.2 03/29 [facility] AutoDiff* Auto Lymphocyte Percent 16.0 % 9.0 - 42.0 03/29 [facility] AutoDiff* Auto Lymphocyte Absolute 1.1 K/mm3 0.8 - 4.4 03/29 [facility] AutoDiff* Auto Monocyte Percent 16.6 % 0.0 - 10.0 03/29 H [facility] AutoDiff* Auto Monocyte Absolute 1.2 K/mm3 0.2 - 1.6 03/29 [facility] AutoDiff* Auto Eosinophil Percent 1.4 % 0.0 - 7.0 03/29 [facility] AutoDiff* Auto Eosinophil Absolute 0.1 K/mm3 0.0 - 0.7 03/29 [facility] AutoDiff* Auto Basophil Percent 0.6 % 0.0 - 3.0 03/29 [facility] AutoDiff* Auto Basophil Absolute 0.0 K/mm3 0.0 - 0.2 03/29 NA [facility] AutoDiff* Sex assigned at Male 03/29 NA [facility] CBC WBC 7.00 K/mm3 4.50 - 11.00 03/29 NA [facility] CBC RBC 2.86 M/mm3 4.50 - 5.90 03/29 L [facility] CBC HGB 8.4 gm/dL 13.5 - 17.5 03/29 L [facility] CBC HCT 25.3 % 37.0 - 49.0 03/29 L [facility] CBC MCV 88.4 fL 80.0 - 99.0 03/29 NA [facility] CBC MCH 29.3 pg 26.0 - 34.0 03/29 NA [facility] CBC MCHC 33.1 gm/dL 32.5 - 35.5 03/29 NA [facility] CBC RDW 14.5 % 11.5 - 14.5 03/29 NA [facility] CBC PLT 327 K/mm3 150 - 400 03/29 NA [facility] CBC MPV 9.3 fL 7.4 - 10.4 03/29 NA [facility] CBC Sex assigned at Male 03/29 NA [facility] AutoDiff* Auto Neutrophil Percent 65.1 % 46.0 - 78.0 03/28 NA [facility] AutoDiff* Auto Neutrophil Absolute 4.8 K/mm3 1.4 - 7.2 03/28 NA [facility] AutoDiff* Auto Lymphocyte Percent 17.1 % 9.0 - 42.0 03/28 NA [facility] AutoDiff* Auto Lymphocyte Absolute 1.3 K/mm3 0.8 - 4.4 03/28 NA [facility] AutoDiff* Auto Monocyte Percent 16.8 % 0.0 - 10.0 03/28 H [facility] AutoDiff* Auto Monocyte Absolute 1.2 K/mm3 0.2 - 1.6 03/28 NA [facility] AutoDiff* Auto Eosinophil Percent 0.3 % 0.0 - 7.0 03/28 NA [facility] AutoDiff* Auto Eosinophil Absolute 0.0 K/mm3 0.0 - 0.7 03/28 NA [facility] AutoDiff* Auto Basophil Percent 0.7 % 0.0 - 3.0 03/28 NA [facility] AutoDiff* Auto Basophil Absolute 0.1 K/mm3 0.0 - 0.2 03/28 NA [facility] AutoDiff* Sex assigned at Male 03/28 NA [facility] CBC WBC 7.40 K/mm3 4.50 - 11.00 03/28 NA [facility] CBC RBC 2.89 M/mm3 4.50 - 5.90 03/28 L [facility] CBC HGB 8.5 gm/dL 13.5 - 17.5 03/28 L [facility] CBC HCT 25.5 % 37.0 - 49.0 03/28 L [facility] CBC MCV 88.3 fL 80.0 - 99.0 03/28 NA [facility] CBC MCH 29.5 pg 26.0 - 34.0 03/28 NA [facility] CBC MCHC 33.4 gm/dL 32.5 - 35.5 03/28 NA [facility] CBC RDW 14.6 % 11.5 - 14.5 03/28 H [facility] CBC PLT 337 K/mm3 150 - 400 03/28 NA [facility] CBC MPV 8.5 fL 7.4 - 10.4 03/28 NA [facility] CBC Sex assigned at Male 03/28 NA [facility] CMP Sodium Level 134 mmol/L 136 - 144 03/28 L [facility] CMP Potassium Level 4.0 mmol/L 3.5 - 5.2 03/28 NA [facility] CMP Chloride Level 99 mmol/L 101 - 111 03/28 L [facility] CMP CO2/Carbon Dioxide 30 mmol/L 22 - 32 03/28 NA [facility] Anion Gap 5 mmol/L 5 - 15 03/28 NA [facility] Glucose, Random 121 mg/dL 70 - 110 03/28 H [facility] BUN 15 mg/dL 7 - 29 03/28 NA [facility] Creatinine 0.8 mg/dL 0.5 - 1.4 03/28 NA [facility] BUN/Creat Ratio 19 15 - 24 03/28 NA [facility] Osmolality, Calculated 270 mOsm/L 275 - 295 03/28 L [facility] Calcium Level 8.2 mg/dL 8.9 - 10.3 03/28 L [facility] Total Protein 5.9 gm/dL 6.5 - 8.1 03/28 L [facility] Albumin Level 2.5 gm/dL 3.5 - 5.0 03/28 L [facility] Globulin Level 3.4 gm/dL 2.6 - 4.0 03/28 NA [facility] A/G Ratio 0.7 1.5 - 3.0 03/28 L [facility] ALP 64 IntUnit/L 30 - 114 03/28 NA [facility] ALT 5 IntUnit/L 14 - 63 03/28 L [facility] AST 12 IntUnit/L 15 - 41 03/28 L [facility] Bilirubin, Total 0.7 mg/dL 0.0 - 1.2 03/28 NA A-puymgt-k-be nzoquinone imine (NAPQI), a metabolite of acetaminophen (paracetamol) , may generate erroneously low results in samples for patients that have taken toxic doses of acetaminophen (paracetamol) [facility] Sex assigned at Male 03/28 NA [facility] eGFR >90 mL/min/1.7 3m2 03/28 NA This eGFR equation utilizes the 2020 CKD-EPI creatinine equation.Stag es GFRNone or slight 1 >90 ml/minMild 2 60-89 ml/minModerat e 3 30-59 ml/minSevere 4 15-29 ml/minApproac jenny Failure 5 <15 ml/min [facility] CRPhs CRP High Sensitivity 5.945 mg/dL 0.020 - 0.748 03/28 H [facility] CRPhs Sex assigned at Male 03/28 [facility] ESR Auto Sedimentatio n Rate Auto 40 mm/hr 0 - 20 03/28 H [facility] ESR Auto Sex assigned at Male 03/28 NA [facility] Mg Magnesium Level 1.7 mg/dL 1.8 - 2.4 03/28 L [facility] Mg Sex assigned at Male 03/28 [facility] Uric Uric Acid Level 4.5 mg/dL 2.6 - 8.7 03/28 NA S-ycvdzt-c-be nzoquinone imine (NAPQI), a metabolite of acetaminophen (paracetamol) , may generate erroneously low results in samples for patients that have taken toxic doses of acetaminophen (paracetamol) [facility] Uric Sex assigned at Male 03/[address] SARS-CoV-2 Source Eric miller 03/[address] Patient From [facility] Area? No 03/[address] Health Care Worker? No 03/[address] SARS-CoV-2 Molecular Negative Negative 03/26 NA Negative results should be treated as presumptive and, if inconsistent with clinical signs and symptoms or necessary for patient management, should be tested with different authorized or cleared molecular tests. Negative results do not preclude SARS-CoV-2 infection and should not be used as the sole basis for patient management decisions. Negative results should be considered in the context of a patient s recent exposures, history and the presence of clinical signs and symptoms consistent with COVID-19.Assa y performed by Nucleic Acid Amplification This test was performed under U.S. Food and Drug Administratio n (FDA) Emergency use Authorization (EUA). This test has been validated but the FDAs independent review of this validation is pending. [facility] [id number] Symptomatic per CDC? Yes 03/26 [facility] [id number] SARS-CoV-2 First test? Unknown 03/26 [facility] [id number] SARS-CoV-2 Is the Patient Hospitalized ? Yes 03/26 [facility] [id number] SARS-CoV-2 Is the Patient in ICU? No 03/26 [facility] [id number] SARS-CoV-2 Is the Patient ? No 03/26 [facility] [id number] Sex assigned at Male 03/26 [facility] AutoDiff* Auto Neutrophil Percent 69.8 % 46.0 - 78.0 03/26 [facility] AutoDiff* Auto Neutrophil Absolute 6.3 K/mm3 1.4 - 7.2 03/26 [facility] AutoDiff* Auto Lymphocyte Percent 15.7 % 9.0 - 42.0 03/26 [facility] AutoDiff* Auto Lymphocyte Absolute 1.4 K/mm3 0.8 - 4.4 03/26 [facility] AutoDiff* Auto Monocyte Percent 12.9 % 0.0 - 10.0 03/26 H [facility] AutoDiff* Auto Monocyte Absolute 1.2 K/mm3 0.2 - 1.6 03/26 [facility] AutoDiff* Auto Eosinophil Percent 0.8 % 0.0 - 7.0 03/26 [facility] AutoDiff* Auto Eosinophil Absolute 0.1 K/mm3 0.0 - 0.7 03/26 [facility] AutoDiff* Auto Basophil Percent 0.8 % 0.0 - 3.0 03/26 [facility] AutoDiff* Auto Basophil Absolute 0.1 K/mm3 0.0 - 0.2 03/26 [facility] AutoDiff* Sex assigned at Male 03/26 [facility] BMP Sodium Level 138 mmol/L 136 - 144 03/26 NA [facility] BMP Potassium Level 4.4 mmol/L 3.5 - 5.2 03/26 NA [facility] BMP Chloride Level 99 mmol/L 101 - 111 03/26 L [facility] BMP CO2/Carbon Dioxide 30 mmol/L 22 - 32 03/26 NA [facility] Anion Gap 9 mmol/L 5 - 15 03/26 NA [facility] BMP Glucose, Random 155 mg/dL 70 - 110 03/26 H [facility] BMP BUN 15 mg/dL 7 - 29 03/26 NA [facility] BMP Creatinine 0.9 mg/dL 0.5 - 1.4 03/26 NA [facility] BUN/Creat Ratio 17 15 - 24 03/26 NA [facility] Osmolality, Calculated 280 mOsm/L 275 - 295 03/26 NA [facility] Calcium Level 8.5 mg/dL 8.9 - 10.3 03/26 L [facility] BMP Sex assigned at Male 03/26 NA [facility] BMP eGFR 87 mL/min/1.7 3m2 03/26 NA This eGFR equation utilizes the 2020 CKD-EPI creatinine equation.Stag es GFRNone or slight 1 >90 ml/minMild 2 60-89 ml/minModerat e 3 30-59 ml/minSevere 4 15-29 ml/minApproac jenny Failure 5 <15 ml/min [facility] CBC WBC 9.10 K/mm3 4.50 - 11.00 03/26 NA [facility] CBC RBC 3.35 M/mm3 4.50 - 5.90 03/26 L [facility] CBC HGB 9.9 gm/dL 13.5 - 17.5 03/26 L [facility] CBC HCT 30.3 % 37.0 - 49.0 03/26 L [facility] CBC MCV 90.3 fL 80.0 - 99.0 03/26 NA [facility] CBC MCH 29.6 pg 26.0 - 34.0 03/26 [facility] CBC MCHC 32.7 gm/dL 32.5 - 35.5 03/26 NA [facility] CBC RDW 14.6 % 11.5 - 14.5 03/26 H [facility] CBC PLT 423 K/mm3 150 - 400 03/26 H [facility] CBC MPV 8.7 fL 7.4 - 10.4 03/26 NA [facility] CBC Sex assigned at Male 03/26 [facility] Liver ALP 75 IntUnit/L 30 - 114 03/26 [facility] Liver ALT 5 IntUnit/L 14 - 63 03/26 L [facility] Liver AST 15 IntUnit/L 15 - 41 03/26 [facility] Liver Bilirubin, Total 0.6 mg/dL 0.0 - 1.2 03/26 NA J-idqvta-i-be nzoquinone imine (NAPQI), a metabolite of acetaminophen (paracetamol) , may generate erroneously low results in samples for patients that have taken toxic doses of acetaminophen (paracetamol) [facility] Liver Bilirubin, Direct 0.2 mg/dL 0.0 - 0.5 03/26 NA W-krvqji-s-be nzoquinone imine (NAPQI), a metabolite of acetaminophen (paracetamol) , may generate erroneously low results in samples for patients that have taken toxic doses of acetaminophen (paracetamol) [facility] Liver Bilirubin, Indirect (Calc) 0.4 mg/dL 03/26 [facility] Liver Total Protein 6.5 gm/dL 6.5 - 8.1 03/26 [facility] Liver Albumin Level 2.7 gm/dL 3.5 - 5.0 03/26 L [facility] Liver Globulin Level 3.8 gm/dL 2.6 - 4.0 03/26 [facility] Liver A/G Ratio 0.7 1.5 - 3.0 03/26 L [facility] Liver Sex assigned at Male 03/26 NA [facility] Mg Magnesium Level 1.7 mg/dL 1.8 - 2.4 03/26 L [facility] Mg Sex assigned at Male 03/26 NA [facility] Phos Phosphorus Level 2.6 mg/dL 2.5 - 4.9 03/26 NA [facility] Phos Sex assigned at Male 03/26 NA [facility] AutoDiff* Auto Neutrophil Percent 74.6 % 46.0 - 78.0 03/25 NA [facility] AutoDiff* Auto Neutrophil Absolute 6.5 K/mm3 1.4 - 7.2 03/25 NA [facility] AutoDiff* Auto Lymphocyte Percent 12.5 % 9.0 - 42.0 03/25 NA [facility] AutoDiff* Auto Lymphocyte Absolute 1.1 K/mm3 0.8 - 4.4 03/25 NA [facility] AutoDiff* Auto Monocyte Percent 11.8 % 0.0 - 10.0 03/25 H [facility] AutoDiff* Auto Monocyte Absolute 1.0 K/mm3 0.2 - 1.6 03/25 [facility] AutoDiff* Auto Eosinophil Percent 0.7 % 0.0 - 7.0 03/25 [facility] AutoDiff* Auto Eosinophil Absolute 0.1 K/mm3 0.0 - 0.7 03/25 [facility] AutoDiff* Auto Basophil Percent 0.4 % 0.0 - 3.0 03/25 [facility] AutoDiff* Auto Basophil Absolute 0.0 K/mm3 0.0 - 0.2 03/25 [facility] AutoDiff* Sex assigned at Male 03/25 [facility] BMP Sodium Level 134 mmol/L 136 - 144 03/25 L [facility] BMP Potassium Level 4.4 mmol/L 3.5 - 5.2 03/25 NA [facility] BMP Chloride Level 95 mmol/L 101 - 111 03/25 L [facility] BMP CO2/Carbon Dioxide 29 mmol/L 22 - 32 03/25 NA [facility] Anion Gap 10 mmol/L 5 - 15 03/25 NA [facility] Glucose, Random 145 mg/dL 70 - 110 03/25 H [facility] BMP BUN 16 mg/dL 7 - 29 03/25 NA [facility] BMP Creatinine 0.9 mg/dL 0.5 - 1.4 03/25 NA [facility] BUN/Creat Ratio 18 15 - 24 03/25 NA [facility] Osmolality, Calculated 272 mOsm/L 275 - 295 03/25 L [facility] Calcium Level 8.4 mg/dL 8.9 - 10.3 03/25 L [facility] eGFR 89 mL/min/1.7 3m2 03/25 NA This eGFR equation utilizes the 2020 CKD-EPI creatinine equation.Stag es GFRNone or slight 1 >90 ml/minMild 2 60-89 ml/minModerat e 3 30-59 ml/minSevere 4 15-29 ml/minApproac jenny Failure 5 <15 ml/min [facility] Sex assigned at Male 03/25 [facility] CBC WBC 8.70 K/mm3 4.50 - 11.00 03/25 [facility] CBC RBC 3.31 M/mm3 4.50 - 5.90 03/25 [facility] CBC HGB 9.8 gm/dL 13.5 - 17.5 03/25 [facility] CBC HCT 30.1 % 37.0 - 49.0 03/25 [facility] CBC MCV 90.9 fL 80.0 - 99.0 03/25 [facility] CBC MCH 29.7 pg 26.0 - 34.0 03/25 [facility] CBC MCHC 32.7 gm/dL 32.5 - 35.5 03/25 [facility] CBC RDW 14.8 % 11.5 - 14.5 03/25 H [facility] CBC PLT 439 K/mm3 150 - 400 03/25 H [facility] CBC MPV 8.6 fL 7.4 - 10.4 03/25 NA [facility] CBC Sex assigned at Male 03/25 NA [facility] Liver ALP 81 IntUnit/L 30 - 114 03/25 NA [facility] Liver ALT 7 IntUnit/L 14 - 63 03/25 L [facility] Liver AST 13 IntUnit/L 15 - 41 03/25 L [facility] Liver Bilirubin, Total 0.6 mg/dL 0.0 - 1.2 03/25 NA B-mbzboi-d-be nzoquinone imine (NAPQI), a metabolite of acetaminophen (paracetamol) , may generate erroneously low results in samples for patients that have taken toxic doses of acetaminophen (paracetamol) [facility] Liver Bilirubin, Direct 0.1 mg/dL 0.0 - 0.5 03/25 NA J-hrktbh-x-be nzoquinone imine (NAPQI), a metabolite of acetaminophen (paracetamol) , may generate erroneously low results in samples for patients that have taken toxic doses of acetaminophen (paracetamol) [facility] Liver Bilirubin, Indirect (Calc) 0.5 mg/dL 03/25 NA [facility] Liver Total Protein 6.8 gm/dL 6.5 - 8.1 03/25 NA [facility] Liver Albumin Level 2.8 gm/dL 3.5 - 5.0 03/25 L [facility] Liver Globulin Level 4.0 gm/dL 2.6 - 4.0 03/25 [facility] Liver A/G Ratio 0.7 1.5 - 3.0 03/25 L [facility] Liver Sex assigned at Male 03/25 NA [facility] Mg Magnesium Level 2.1 mg/dL 1.8 - 2.4 03/25 [facility] Mg Sex assigned at Male 03/25 [facility] Pho Phosphorus Level 3.0 mg/dL 2.5 - 4.9 03/25 NA [facility] Phos Sex assigned at Male 03/25 NA [facility] AutoDiff* Auto Neutrophil Percent 71.7 % 46.0 - 78.0 03/24 NA [facility] AutoDiff* Auto Neutrophil Absolute 6.5 K/mm3 1.4 - 7.2 03/24 NA [facility] AutoDiff* Auto Lymphocyte Percent 13.6 % 9.0 - 42.0 03/24 [facility] AutoDiff* Auto Lymphocyte Absolute 1.2 K/mm3 0.8 - 4.4 03/24 [facility] AutoDiff* Auto Monocyte Percent 13.1 % 0.0 - 10.0 03/24 H [facility] AutoDiff* Auto Monocyte Absolute 1.2 K/mm3 0.2 - 1.6 03/24 [facility] AutoDiff* Auto Eosinophil Percent 0.5 % 0.0 - 7.0 03/24 [facility] AutoDiff* Auto Eosinophil Absolute 0.0 K/mm3 0.0 - 0.7 03/24 [facility] AutoDiff* Auto Basophil Percent 1.1 % 0.0 - 3.0 03/24 [facility] AutoDiff* Auto Basophil Absolute 0.1 K/mm3 0.0 - 0.2 03/24 [facility] AutoDiff* Sex assigned at Male 03/24 [facility] BMP Sodium Level 137 mmol/L 136 - 144 03/24 [facility] BMP Potassium Level 4.3 mmol/L 3.5 - 5.2 03/24 [facility] BMP Chloride Level 102 mmol/L 101 - 111 03/24 [facility] BMP CO2/Carbon Dioxide 30 mmol/L 22 - 32 03/24 [facility] BMP Anion Gap 5 mmol/L 5 - 15 03/24 [facility] Glucose, Random 100 mg/dL 70 - 110 03/24 NA [facility] BMP BUN 13 mg/dL 7 - 29 03/24 NA [facility] BMP Creatinine 0.9 mg/dL 0.5 - 1.4 03/24 NA [facility] BUN/Creat Ratio 14 15 - 24 03/24 [facility] Osmolality, Calculated 274 mOsm/L 275 - 295 03/24 [facility] Calcium Level 8.4 mg/dL 8.9 - 10.3 03/24 [facility] Sex assigned at Male 03/24 NA [facility] BMP eGFR 89 mL/min/1.7 3m2 03/24 NA This eGFR equation utilizes the 2020 CKD-EPI creatinine equation.Stag es GFRNone or slight 1 >90 ml/minMild 2 60-89 ml/minModerat e 3 30-59 ml/minSevere 4 15-29 ml/minApproac jenny Failure 5 <15 ml/min [facility] CBC WBC 9.10 K/mm3 4.50 - 11.00 03/24 [facility] CBC RBC 2.99 M/mm3 4.50 - 5.90 03/24 [facility] CBC HGB 9.0 gm/dL 13.5 - 17.5 03/24 [facility] CBC HCT 26.8 % 37.0 - 49.0 03/24 [facility] CBC MCV 89.6 fL 80.0 - 99.0 03/24 [facility] CBC MCH 30.0 pg 26.0 - 34.0 03/24 [facility] CBC MCHC 33.5 gm/dL 32.5 - 35.5 03/24 [facility] CBC RDW 14.5 % 11.5 - 14.5 03/24 [facility] CBC PLT 399 K/mm3 150 - 400 03/24 [facility] CBC MPV 9.1 fL 7.4 - 10.4 03/24 NA [facility] CBC Sex assigned at Male 03/24 NA [facility] Liver ALP 72 IntUnit/L 30 - 114 03/24 NA [facility] Liver ALT 5 IntUnit/L 14 - 63 03/24 L [facility] Liver AST 11 IntUnit/L 15 - 41 03/24 L [facility] Liver Bilirubin, Total 0.8 mg/dL 0.0 - 1.2 03/24 NA V-puhwap-x-be nzoquinone imine (NAPQI), a metabolite of acetaminophen (paracetamol) , may generate erroneously low results in samples for patients that have taken toxic doses of acetaminophen (paracetamol) [facility] Liver Bilirubin, Direct 0.1 mg/dL 0.0 - 0.5 03/24 NA Y-vboehl-q-be nzoquinone imine (NAPQI), a metabolite of acetaminophen (paracetamol) , may generate erroneously low results in samples for patients that have taken toxic doses of acetaminophen (paracetamol) [facility] Liver Bilirubin, Indirect (Calc) 0.7 mg/dL 03/24 NA [facility] Liver Total Protein 5.7 gm/dL 6.5 - 8.1 03/24 L [facility] Liver Albumin Level 2.4 gm/dL 3.5 - 5.0 03/24 [facility] Liver Globulin Level 3.3 gm/dL 2.6 - 4.0 03/24 [facility] Liver A/G Ratio 0.7 1.5 - 3.0 03/24 L [facility] Liver Sex assigned at Male 03/24 [facility] Mg Magnesium Level 1.7 mg/dL 1.8 - 2.4 03/24 L [facility] Mg Sex assigned at Male 03/24 [facility] Phos Phosphorus Level 3.0 mg/dL 2.5 - 4.9 03/24 NA [facility] Phos Sex assigned at Male 03/24 [facility] AutoDiff* Auto Neutrophil Percent 75.7 % 46.0 - 78.0 03/23 [facility] AutoDiff* Auto Neutrophil Absolute 6.6 K/mm3 1.4 - 7.2 03/23 [facility] AutoDiff* Auto Lymphocyte Percent 10.8 % 9.0 - 42.0 03/23 [facility] AutoDiff* Auto Lymphocyte Absolute 0.9 K/mm3 0.8 - 4.4 03/23 [facility] AutoDiff* Auto Monocyte Percent 12.5 % 0.0 - 10.0 03/23 [facility] AutoDiff* Auto Monocyte Absolute 1.1 K/mm3 0.2 - 1.6 03/23 [facility] AutoDiff* Auto Eosinophil Percent 0.3 % 0.0 - 7.0 03/23 [facility] AutoDiff* Auto Eosinophil Absolute 0.0 K/mm3 0.0 - 0.7 03/23 [facility] AutoDiff* Auto Basophil Percent 0.7 % 0.0 - 3.0 03/23 [facility] AutoDiff* Auto Basophil Absolute 0.1 K/mm3 0.0 - 0.2 03/23 [facility] AutoDiff* Sex assigned at Male 03/23 [facility] BMP Sodium Level 137 mmol/L 136 - 144 03/23 [facility] BMP Potassium Level 4.3 mmol/L 3.5 - 5.2 03/23 [facility] BMP Chloride Level 100 mmol/L 101 - 111 03/23 L [facility] BMP CO2/Carbon Dioxide 32 mmol/L 22 - 32 03/23 [facility] BMP Anion Gap 5 mmol/L 5 - 15 03/23 [facility] BMP Glucose, Random 112 mg/dL 70 - 110 03/23 [facility] BMP BUN 9 mg/dL 7 - 29 03/23 [facility] BMP Creatinine 0.9 mg/dL 0.5 - 1.4 03/23 NA [facility] BMP BUN/Creat Ratio 10 15 - 24 03/23 L [facility] BMP Osmolality, Calculated 273 mOsm/L 275 - 295 03/23 L [facility] Calcium Level 8.5 mg/dL 8.9 - 10.3 03/23 L [facility] BMP Sex assigned at Male 03/23 NA [facility] BMP eGFR 89 mL/min/1.7 3m2 03/23 NA This eGFR equation utilizes the 2020 CKD-EPI creatinine equation.Stag es GFRNone or slight 1 >90 ml/minMild 2 60-89 ml/minModerat e 3 30-59 ml/minSevere 4 15-29 ml/minApproac jenny Failure 5 <15 ml/min [facility] CBC WBC 8.80 K/mm3 4.50 - 11.00 03/23 [facility] CBC RBC 3.06 M/mm3 4.50 - 5.90 03/23 L [facility] CBC HGB 9.1 gm/dL 13.5 - 17.5 03/23 L [facility] CBC HCT 27.9 % 37.0 - 49.0 03/23 [facility] CBC MCV 91.4 fL 80.0 - 99.0 03/23 [facility] CBC MCH 29.7 pg 26.0 - 34.0 03/23 [facility] CBC MCHC 32.5 gm/dL 32.5 - 35.5 03/23 [facility] CBC RDW 14.6 % 11.5 - 14.5 03/23 H [facility] CBC PLT 443 K/mm3 150 - 400 03/23 H [facility] CBC MPV 8.4 fL 7.4 - 10.4 03/23 [facility] CBC Sex assigned at Male 03/23 [facility] Liver ALP 81 IntUnit/L 30 - 114 03/23 [facility] Liver ALT 8 IntUnit/L 14 - 63 03/23 L [facility] Liver AST 12 IntUnit/L 15 - 41 03/23 L [facility] Liver Bilirubin, Total 0.8 mg/dL 0.0 - 1.2 03/23 NA Q-phlgnl-t-be nzoquinone imine (NAPQI), a metabolite of acetaminophen (paracetamol) , may generate erroneously low results in samples for patients that have taken toxic doses of acetaminophen (paracetamol) [facility] Liver Bilirubin, Direct 0.1 mg/dL 0.0 - 0.5 03/23 NA L-zokmwa-k-be nzoquinone imine (NAPQI), a metabolite of acetaminophen (paracetamol) , may generate erroneously low results in samples for patients that have taken toxic doses of acetaminophen (paracetamol) [facility] Liver Bilirubin, Indirect (Calc) 0.7 mg/dL 03/23 NA [facility] Liver Total Protein 6.0 gm/dL 6.5 - 8.1 03/23 L [facility] Liver Albumin Level 2.6 gm/dL 3.5 - 5.0 03/23 L [facility] Liver Globulin Level 3.4 gm/dL 2.6 - 4.0 03/23 [facility] Liver A/G Ratio 0.8 1.5 - 3.0 03/23 L [facility] Liver Sex assigned at Male 03/23 [facility] Mg Magnesium Level 2.0 mg/dL 1.8 - 2.4 03/23 [facility] Mg Sex assigned at Male 03/23 [facility] Phos Phosphorus Level 3.1 mg/dL 2.5 - 4.9 03/23 [facility] Phos Sex assigned at Male 03/23 [facility] AutoDiff* Auto Neutrophil Percent 79.4 % 46.0 - 78.0 03/22 H [facility] AutoDiff* Auto Neutrophil Absolute 8.8 K/mm3 1.4 - 7.2 03/22 H [facility] AutoDiff* Auto Lymphocyte Percent 9.2 % 9.0 - 42.0 03/22 [facility] AutoDiff* Auto Lymphocyte Absolute 1.0 K/mm3 0.8 - 4.4 03/22 [facility] AutoDiff* Auto Monocyte Percent 10.4 % 0.0 - 10.0 03/22 [facility] AutoDiff* Auto Monocyte Absolute 1.1 K/mm3 0.2 - 1.6 03/22 [facility] AutoDiff* Auto Eosinophil Percent 0.5 % 0.0 - 7.0 03/22 [facility] AutoDiff* Auto Eosinophil Absolute 0.1 K/mm3 0.0 - 0.7 03/22 [facility] AutoDiff* Auto Basophil Percent 0.5 % 0.0 - 3.0 03/22 [facility] AutoDiff* Auto Basophil Absolute 0.1 K/mm3 0.0 - 0.2 03/22 [facility] AutoDiff* Sex assigned at Male 03/22 [facility] BMP Sodium Level 136 mmol/L 136 - 144 03/22 [facility] BMP Potassium Level 4.0 mmol/L 3.5 - 5.2 03/22 [facility] BMP Chloride Level 97 mmol/L 101 - 111 03/22 [facility] BMP CO2/Carbon Dioxide 30 mmol/L 22 - 32 03/22 [facility] BMP Anion Gap 9 mmol/L 5 - 15 03/22 [facility] BMP Glucose, Random 135 mg/dL 70 - 110 03/22 [facility] BMP BUN 12 mg/dL 7 - 29 03/22 [facility] BMP Creatinine 0.9 mg/dL 0.5 - 1.4 03/22 [facility] BMP BUN/Creat Ratio 13 15 - 24 03/22 [facility] BMP Osmolality, Calculated 274 mOsm/L 275 - 295 03/22 L [facility] BMP Calcium Level 8.3 mg/dL 8.9 - 10.3 03/22 L [facility] BMP Sex assigned at Male 03/22 NA [facility] BMP eGFR 88 mL/min/1.7 3m2 03/22 NA This eGFR equation utilizes the 2020 CKD-EPI creatinine equation.Stag es GFRNone or slight 1 >90 ml/minMild 2 60-89 ml/minModerat e 3 30-59 ml/minSevere 4 15-29 ml/minApproac jenny Failure 5 <15 ml/min [facility] CBC WBC 11.00 K/mm3 4.50 - 11.00 03/22 NA [facility] CBC RBC 2.98 M/mm3 4.50 - 5.90 03/22 L [facility] CBC HGB 9.0 gm/dL 13.5 - 17.5 03/22 L [facility] CBC HCT 27.1 % 37.0 - 49.0 03/22 L [facility] CBC MCV 91.1 fL 80.0 - 99.0 03/22 NA [facility] CBC MCH 30.2 pg 26.0 - 34.0 03/22 NA [facility] CBC MCHC 33.2 gm/dL 32.5 - 35.5 03/22 [facility] CBC RDW 14.7 % 11.5 - 14.5 03/22 H [facility] CBC PLT 458 K/mm3 150 - 400 03/22 H [facility] CBC MPV 8.6 fL 7.4 - 10.4 03/22 NA [facility] CBC Sex assigned at Male 03/22 NA [facility] Liver ALP 82 IntUnit/L 30 - 114 03/22 [facility] Liver ALT 11 IntUnit/L 14 - 63 03/22 [facility] Liver AST 14 IntUnit/L 15 - 41 03/22 [facility] Liver Bilirubin, Total 0.7 mg/dL 0.0 - 1.2 03/22 NA P-neiujh-r-be nzoquinone imine (NAPQI), a metabolite of acetaminophen (paracetamol) , may generate erroneously low results in samples for patients that have taken toxic doses of acetaminophen (paracetamol) [facility] Liver Bilirubin, Direct 0.1 mg/dL 0.0 - 0.5 03/22 NA C-ckopzf-a-be nzoquinone imine (NAPQI), a metabolite of acetaminophen (paracetamol) , may generate erroneously low results in samples for patients that have taken toxic doses of acetaminophen (paracetamol) [facility] Liver Bilirubin, Indirect (Calc) 0.6 mg/dL 03/22 NA [facility] Liver Total Protein 5.9 gm/dL 6.5 - 8.1 03/22 L [facility] Liver Albumin Level 2.5 gm/dL 3.5 - 5.0 03/22 L [facility] Liver Globulin Level 3.4 gm/dL 2.6 - 4.0 03/22 [facility] Liver A/G Ratio 0.7 1.5 - 3.0 03/22 L [facility] Liver Sex assigned at Male 03/22 [facility] Mg Magnesium Level 1.8 mg/dL 1.8 - 2.4 03/22 NA [facility] Mg Sex assigned at Male 03/22 [facility] Phos Phosphorus Level 2.9 mg/dL 2.5 - 4.9 03/22 NA [facility] Phos Sex assigned at Male 03/22 [facility] C Blood C Blood Final:No growth at 5 days.Sex assigned at :Male 03/21 Performed at: [facility], [address] [place] [address], [place] Laborer: Demond Mccoy MD Verified: March 26, 2022 20:01:45 PST [facility] Lactic Lactic Acid Level 1.9 mmol/L 0.5 - 2.0 03/21 NA Venipuncture immediately after or during the administratio n of Metamizole (Dipyrone) may lead to falsely low results for Lactic. Venipuncture should be performed prior to the administratio n of Metamizole. [facility] Lactic Sex assigned at Male 03/21 NA [facility] TrepScreen Treponema Ab NEGATIVE 03/21 NA Treponemal Ab = presumptive pos, and Syphilis RPR Screen = negative, andTreponema Ab by TP-PA = negative, then Syphilisis unlikelyTrepo nemal Ab = presumptive pos, and Syphilis RPR Screen = negative, andTreponema Ab by TP-PA = positive, then Syphilisis likely; correlate with clinical history and treataccordin g to CDC guidelinesTre ponemal Ab = presumptive pos, and Syphilis RPR Screen = positive, then Syphilis islikely; correlate with clinical history and treataccordin g to CDC guidelines [facility] TrepScreen Sex assigned at Male 03/21 [facility] C Blood C Blood Final:No growth at 5 days.Sex assigned at :Male 03/21 [facility] AutoDiff* Auto Neutrophil Percent 80.1 % 46.0 - 78.0 03/21 [facility] AutoDiff* Auto Neutrophil Absolute 9.1 K/mm3 1.4 - 7.2 03/21 [facility] AutoDiff* Auto Lymphocyte Percent 9.6 % 9.0 - 42.0 03/21 [facility] AutoDiff* Auto Lymphocyte Absolute 1.1 K/mm3 0.8 - 4.4 03/21 [facility] AutoDiff* Auto Monocyte Percent 9.1 % 0.0 - 10.0 03/21 [facility] AutoDiff* Auto Monocyte Absolute 1.0 K/mm3 0.2 - 1.6 03/21 [facility] AutoDiff* Auto Eosinophil Percent 0.7 % 0.0 - 7.0 03/21 [facility] AutoDiff* Auto Eosinophil Absolute 0.1 K/mm3 0.0 - 0.7 03/21 [facility] AutoDiff* Auto Basophil Percent 0.5 % 0.0 - 3.0 03/21 NA [facility] AutoDiff* Auto Basophil Absolute 0.1 K/mm3 0.0 - 0.2 03/21 NA [facility] AutoDiff* Sex assigned at Male 03/21 NA [facility] BMP Sodium Level 137 mmol/L 136 - 144 03/21 NA [facility] Potassium Level 3.6 mmol/L 3.5 - 5.2 03/21 NA [facility] Chloride Level 99 mmol/L 101 - 111 03/21 L [facility] BMP CO2/Carbon Dioxide 33 mmol/L 22 - 32 03/21 H [facility] Anion Gap 5 mmol/L 5 - 15 03/21 NA [facility] Glucose, Random 107 mg/dL 70 - 110 03/21 NA [facility] BUN 10 mg/dL 7 - 29 03/21 NA [facility] BMP Creatinine 0.9 mg/dL 0.5 - 1.4 03/21 NA [facility] BUN/Creat Ratio 11 15 - 24 03/21 [facility] Osmolality, Calculated 273 mOsm/L 275 - 295 03/21 [facility] Calcium Level 8.4 mg/dL 8.9 - 10.3 03/21 [facility] eGFR 88 mL/min/1.7 3m2 03/21 NA This eGFR equation utilizes the 2020 CKD-EPI creatinine equation.Stag es GFRNone or slight 1 >90 ml/minMild 2 60-89 ml/minModerat e 3 30-59 ml/minSevere 4 15-29 ml/minApproac jenny Failure 5 <15 ml/min [facility] Sex assigned at Male 03/21 [facility] CBC WBC 11.30 K/mm3 4.50 - 11.00 03/21 H [facility] CBC RBC 3.00 M/mm3 4.50 - 5.90 03/21 L [facility] CBC HGB 9.0 gm/dL 13.5 - 17.5 03/21 L [facility] CBC HCT 27.2 % 37.0 - 49.0 03/21 L [facility] CBC MCV 90.9 fL 80.0 - 99.0 03/21 [facility] CBC MCH 30.0 pg 26.0 - 34.0 03/21 NA [facility] CBC MCHC 33.0 gm/dL 32.5 - 35.5 03/21 [facility] CBC RDW 14.5 % 11.5 - 14.5 03/21 NA [facility] CBC PLT 469 K/mm3 150 - 400 03/21 H [facility] CBC MPV 9.0 fL 7.4 - 10.4 03/21 [facility] CBC Sex assigned at Male 03/21 NA [facility] Liver ALP 84 IntUnit/L 30 - 114 03/21 [facility] Liver ALT 21 IntUnit/L 14 - 63 03/21 NA [facility] Liver AST 14 IntUnit/L 15 - 41 03/21 L [facility] Liver Bilirubin, Total 0.7 mg/dL 0.0 - 1.2 03/21 NA X-gtwaon-y-be nzoquinone imine (NAPQI), a metabolite of acetaminophen (paracetamol) , may generate erroneously low results in samples for patients that have taken toxic doses of acetaminophen (paracetamol) [facility] Liver Bilirubin, Direct 0.2 mg/dL 0.0 - 0.5 03/21 NA Z-pfewvu-g-be nzoquinone imine (NAPQI), a metabolite of acetaminophen (paracetamol) , may generate erroneously low results in samples for patients that have taken toxic doses of acetaminophen (paracetamol) [facility] Liver Bilirubin, Indirect (Calc) 0.5 mg/dL 03/21 NA [facility] Liver Total Protein 5.9 gm/dL 6.5 - 8.1 03/21 L [facility] Liver Albumin Level 2.6 gm/dL 3.5 - 5.0 03/21 L [facility] Liver Globulin Level 3.3 gm/dL 2.6 - 4.0 03/21 NA [facility] Liver A/G Ratio 0.8 1.5 - 3.0 03/21 L [facility] Liver Sex assigned at Male 03/21 NA [facility] Mg Magnesium Level 1.8 mg/dL 1.8 - 2.4 03/21 NA [facility] Mg Sex assigned at Male 03/21 NA [facility] Phos Phosphorus Level 2.9 mg/dL 2.5 - 4.9 03/21 NA [facility] Phos Sex assigned at Male 03/21 NA [facility] Lactic Lactic Acid Level 1.5 mmol/L 0.5 - 2.0 03/21 NA Venipuncture immediately after or during the administratio n of Metamizole (Dipyrone) may lead to falsely low results for Lactic. Venipuncture should be performed prior to the administratio n of Metamizole. [facility] Lactic Sex assigned at Male 03/21 NA [facility] Lactic Lactic Acid Level 5.4 mmol/L 0.5 - 2.0 03/21 C CRITICAL TEST RESULTS REPORTING1. Result has been confirmed by repeat testing? Y/N N2. Person Results Called To: Name / Title: SHEA De Guzman RN3. When Reported: a.Date/Time Reported: 03/20/2022 20:52 b. Who Reported Results: Name: 4. TWO Patient identifiers Confirmed? Y/N Y5. Confirmed Read-back of patient information and Test results? Y/N YVenipuncture immediately after or during the administratio n of Metamizole (Dipyrone) may lead to falsely low results for Lactic. Venipuncture should be performed prior to the administratio n of Metamizole. [facility] Lactic Sex assigned at Male 03/21 NA [facility] AutoDiff* Auto Neutrophil Percent 81.0 % 46.0 - 78.0 03/21 H [facility] AutoDiff* Auto Neutrophil Absolute 9.6 K/mm3 1.4 - 7.2 03/21 [facility] AutoDiff* Auto Lymphocyte Percent 10.1 % 9.0 - 42.0 03/21 [facility] AutoDiff* Auto Lymphocyte Absolute 1.2 K/mm3 0.8 - 4.4 03/21 [facility] AutoDiff* Auto Monocyte Percent 7.7 % 0.0 - 10.0 03/21 [facility] AutoDiff* Auto Monocyte Absolute 0.9 K/mm3 0.2 - 1.6 03/21 [facility] AutoDiff* Auto Eosinophil Percent 0.6 % 0.0 - 7.0 03/21 [facility] AutoDiff* Auto Eosinophil Absolute 0.1 K/mm3 0.0 - 0.7 03/21 [facility] AutoDiff* Auto Basophil Percent 0.6 % 0.0 - 3.0 03/21 [facility] AutoDiff* Auto Basophil Absolute 0.1 K/mm3 0.0 - 0.2 03/21 [facility] AutoDiff* Auto NRBC % 0.1 % 03/21 [facility] AutoDiff* Sex assigned at Male 03/21 [facility] CBC WBC 11.80 K/mm3 4.50 - 11.00 03/21 [facility] CBC RBC 3.12 M/mm3 4.50 - 5.90 03/21 [facility] CBC HGB 9.3 gm/dL 13.5 - 17.5 03/21 L [facility] CBC HCT 28.4 % 37.0 - 49.0 03/21 [facility] CBC MCV 91.2 fL 80.0 - 99.0 03/21 [facility] CBC MCH 29.8 pg 26.0 - 34.0 03/21 [facility] CBC MCHC 32.7 gm/dL 32.5 - 35.5 03/21 [facility] CBC RDW 14.4 % 11.5 - 14.5 03/21 NA [facility] CBC PLT 474 K/mm3 150 - 400 03/21 H [facility] CBC MPV 8.7 fL 7.4 - 10.4 03/21 NA [facility] CBC Sex assigned at Male 03/21 NA [facility] CMP Sodium Level 136 mmol/L 136 - 144 03/21 NA [facility] CMP Potassium Level 4.5 mmol/L 3.5 - 5.2 03/21 NA [facility] CMP Chloride Level 98 mmol/L 101 - 111 03/21 L [facility] CMP CO2/Carbon Dioxide 30 mmol/L 22 - 32 03/21 NA [facility] CMP Anion Gap 8 mmol/L 5 - 15 03/21 NA [facility] CMP Glucose, Random 151 mg/dL 70 - 110 03/21 H [facility] CMP BUN 10 mg/dL 7 - 29 03/21 [facility] CMP Creatinine 0.9 mg/dL 0.5 - 1.4 03/21 [facility] CMP BUN/Creat Ratio 11 15 - 24 03/21 [facility] CMP Osmolality, Calculated 274 mOsm/L 275 - 295 03/21 L [facility] CMP Calcium Level 8.3 mg/dL 8.9 - 10.3 03/21 L [facility] CMP Total Protein 5.6 gm/dL 6.5 - 8.1 03/21 L [facility] CMP Albumin Level 2.6 gm/dL 3.5 - 5.0 03/21 L [facility] CMP Globulin Level 3.0 gm/dL 2.6 - 4.0 03/21 [facility] CMP A/G Ratio 0.9 1.5 - 3.0 03/21 L [facility] CMP ALP 89 IntUnit/L 30 - 114 03/21 [facility] CMP ALT 28 IntUnit/L 14 - 63 03/21 NA [facility] CMP AST 17 IntUnit/L 15 - 41 03/21 [facility] CMP Bilirubin, Total 0.7 mg/dL 0.0 - 1.2 03/21 NA O-dpdfch-p-be nzoquinone imine (NAPQI), a metabolite of acetaminophen (paracetamol) , may generate erroneously low results in samples for patients that have taken toxic doses of acetaminophen (paracetamol) [facility] CMP Sex assigned at Male 03/21 NA [facility] CMP eGFR 89 mL/min/1.7 3m2 03/21 NA This eGFR equation utilizes the 2020 CKD-EPI creatinine equation.Stag es GFRNone or slight 1 >90 ml/minMild 2 60-89 ml/minModerat e 3 30-59 ml/minSevere 4 15-29 ml/minApproac jenny Failure 5 <15 ml/min [facility] Mg Magnesium Level 1.9 mg/dL 1.8 - 2.4 03/21 NA [facility] Mg Sex assigned at Male 03/21 [facility] PT PT - Patient 14.7 sec 11.6 - 14.2 03/21 H [facility] PT PT - INR 1.2 0.9 - 1.1 03/21 H Recommended Therapeutic Range for Oral Anticoagulant Theraphy (Yenni, et al, CHEST, 119/1., Feb 2000)Indicati ons INRProphylaxi s/Treatment ofThromboembo lic Disorders ............. ......... 2.0 - 3.0Prevention of Systemic Embolism ............. .. 2.0 - 3.0 Tissue Heart Valves Valvular Heart Diseases Atrial FibrillationM echanical Heart Valves (High Risk) ............. ............. ... 2.5 - 3.5 [facility] PT Sex assigned at Male 03/21 [facility] PTT PTT - Patient 37.9 sec 23.0 - 36.0 03/21 H [facility] PTT Sex assigned at Male 03/21 NA [facility] Trop Troponin I 0.17 ng/mL 0.00 - 0.05 03/21 C CRITICAL TEST RESULTS REPORTING1. Result has been confirmed by repeat testing? Y/N N2. Person Results Called To: Name / Title: DEO FRAZIER RN3. When Reported: a.Date/Time Reported: 03/20/2022 20:04 b. Who Reported Results: Name: RC4. TWO Patient identifiers Confirmed? Y/N Y5. Confirmed Read-back of patient information and Test results? Y/N YA Troponin value of 0.06 ng/mL or greater is consistent with myocardial injury. Interpretatio n requires correlation with other clinical findings.Gupta ging values are more significant than a single elevated value in the diagnosis of acute ischemic necrosis. [facility] Trop Sex assigned at Male 03/21 [facility] AutoDiff* Auto Neutrophil Percent 73.4 % 46.0 - 78.0 03/20 [facility] AutoDiff* Auto Neutrophil Absolute 6.5 K/mm3 1.4 - 7.2 03/20 [facility] AutoDiff* Auto Lymphocyte Percent 15.2 % 9.0 - 42.0 03/20 [facility] AutoDiff* Auto Lymphocyte Absolute 1.4 K/mm3 0.8 - 4.4 03/20 [facility] AutoDiff* Auto Monocyte Percent 9.8 % 0.0 - 10.0 03/20 [facility] AutoDiff* Auto Monocyte Absolute 0.9 K/mm3 0.2 - 1.6 03/20 [facility] AutoDiff* Auto Eosinophil Percent 0.9 % 0.0 - 7.0 03/20 [facility] AutoDiff* Auto Eosinophil Absolute 0.1 K/mm3 0.0 - 0.7 03/20 [facility] AutoDiff* Auto Basophil Percent 0.7 % 0.0 - 3.0 03/20 [facility] AutoDiff* Auto Basophil Absolute 0.1 K/mm3 0.0 - 0.2 03/20 NA [facility] AutoDiff* Sex assigned at Male 03/20 NA [facility] BMP Sodium Level 139 mmol/L 136 - 144 03/20 NA [facility] BMP Potassium Level 4.6 mmol/L 3.5 - 5.2 03/20 NA [facility] Chloride Level 102 mmol/L 101 - 111 03/20 NA [facility] BMP CO2/Carbon Dioxide 32 mmol/L 22 - 32 03/20 NA [facility] Anion Gap 5 mmol/L 5 - 15 03/20 NA [facility] Glucose, Random 129 mg/dL 70 - 110 03/20 H [facility] BMP BUN 8 mg/dL 7 - 29 03/20 NA [facility] BMP Creatinine 1.0 mg/dL 0.5 - 1.4 03/20 NA [facility] BUN/Creat Ratio 8 15 - 24 03/20 [facility] Osmolality, Calculated 278 mOsm/L 275 - 295 03/20 NA [facility] Calcium Level 8.4 mg/dL 8.9 - 10.3 03/20 [facility] BMP Sex assigned at Male 03/20 NA [facility] BMP eGFR 79 mL/min/1.7 3m2 03/20 NA This eGFR equation utilizes the 2020 CKD-EPI creatinine equation.Stag es GFRNone or slight 1 >90 ml/minMild 2 60-89 ml/minModerat e 3 30-59 ml/minSevere 4 15-29 ml/minApproac jenny Failure 5 <15 ml/min [facility] CBC WBC 8.90 K/mm3 4.50 - 11.00 03/20 NA [facility] CBC RBC 2.91 M/mm3 4.50 - 5.90 03/20 L [facility] CBC HGB 8.8 gm/dL 13.5 - 17.5 03/20 L [facility] CBC HCT 26.5 % 37.0 - 49.0 03/20 L [facility] CBC MCV 91.2 fL 80.0 - 99.0 03/20 NA [facility] CBC MCH 30.3 pg 26.0 - 34.0 03/20 NA [facility] CBC MCHC 33.2 gm/dL 32.5 - 35.5 03/20 NA [facility] CBC RDW 14.6 % 11.5 - 14.5 03/20 H [facility] CBC PLT 446 K/mm3 150 - 400 03/20 H [facility] CBC MPV 8.8 fL 7.4 - 10.4 03/20 NA [facility] CBC Sex assigned at Male 03/20 NA [facility] Liver ALP 77 IntUnit/L 30 - 114 03/20 [facility] Liver ALT 35 IntUnit/L 14 - 63 03/20 NA [facility] Liver AST 18 IntUnit/L 15 - 41 03/20 [facility] Liver Bilirubin, Total 0.7 mg/dL 0.0 - 1.2 03/20 NA O-cbwcxd-k-be nzoquinone imine (NAPQI), a metabolite of acetaminophen (paracetamol) , may generate erroneously low results in samples for patients that have taken toxic doses of acetaminophen (paracetamol) [facility] Liver Bilirubin, Direct 0.2 mg/dL 0.0 - 0.5 03/20 NA A-chfznv-k-be nzoquinone imine (NAPQI), a metabolite of acetaminophen (paracetamol) , may generate erroneously low results in samples for patients that have taken toxic doses of acetaminophen (paracetamol) [facility] Liver Bilirubin, Indirect (Calc) 0.5 mg/dL 03/20 NA [facility] Liver Total Protein 5.7 gm/dL 6.5 - 8.1 03/20 L [facility] Liver Albumin Level 2.4 gm/dL 3.5 - 5.0 03/20 L [facility] Liver Globulin Level 3.3 gm/dL 2.6 - 4.0 03/20 NA [facility] Liver A/G Ratio 0.7 1.5 - 3.0 03/20 L [facility] Liver Sex assigned at Male 03/20 NA [facility] Mg Magnesium Level 2.0 mg/dL 1.8 - 2.4 03/20 NA [facility] Mg Sex assigned at Male 03/20 NA [facility] Phos Phosphorus Level 3.6 mg/dL 2.5 - 4.9 03/20 NA [facility] Phos Sex assigned at Male 03/20 [facility] AutoDiff* Auto Neutrophil Percent 77.1 % 46.0 - 78.0 03/19 [facility] AutoDiff* Auto Neutrophil Absolute 8.1 K/mm3 1.4 - 7.2 03/19 H [facility] AutoDiff* Auto Lymphocyte Percent 12.1 % 9.0 - 42.0 03/19 [facility] AutoDiff* Auto Lymphocyte Absolute 1.3 K/mm3 0.8 - 4.4 03/19 [facility] AutoDiff* Auto Monocyte Percent 8.9 % 0.0 - 10.0 03/19 [facility] AutoDiff* Auto Monocyte Absolute 0.9 K/mm3 0.2 - 1.6 03/19 [facility] AutoDiff* Auto Eosinophil Percent 1.0 % 0.0 - 7.0 03/19 [facility] AutoDiff* Auto Eosinophil Absolute 0.1 K/mm3 0.0 - 0.7 03/19 [facility] AutoDiff* Auto Basophil Percent 0.9 % 0.0 - 3.0 03/19 [facility] AutoDiff* Auto Basophil Absolute 0.1 K/mm3 0.0 - 0.2 03/19 [facility] AutoDiff* Auto NRBC % 0.1 % 03/19 [facility] AutoDiff* Sex assigned at Male 03/19 NA [facility] BMP Sodium Level 138 mmol/L 136 - 144 03/19 NA [facility] BMP Potassium Level 3.9 mmol/L 3.5 - 5.2 03/19 NA [facility] BMP Chloride Level 103 mmol/L 101 - 111 03/19 NA [facility] BMP CO2/Carbon Dioxide 32 mmol/L 22 - 32 03/19 NA [facility] BMP Anion Gap 3 mmol/L 5 - 15 03/19 L [facility] BMP Glucose, Random 135 mg/dL 70 - 110 03/19 H [facility] BMP BUN 8 mg/dL 7 - 29 03/19 NA [facility] BMP Creatinine 0.7 mg/dL 0.5 - 1.4 03/19 NA [facility] BUN/Creat Ratio 11 15 - 24 03/19 L [facility] BMP Osmolality, Calculated 276 mOsm/L 275 - 295 03/19 NA [facility] Calcium Level 8.1 mg/dL 8.9 - 10.3 03/19 L [facility] BMP eGFR >90 mL/min/1.7 3m2 03/19 NA This eGFR equation utilizes the 2020 CKD-EPI creatinine equation.Stag es GFRNone or slight 1 >90 ml/minMild 2 60-89 ml/minModerat e 3 30-59 ml/minSevere 4 15-29 ml/minApproac jenny Failure 5 <15 ml/min [facility] BMP Sex assigned at Male 03/19 NA [facility] CBC WBC 10.60 K/mm3 4.50 - 11.00 03/19 NA [facility] CBC RBC 2.93 M/mm3 4.50 - 5.90 03/19 [facility] CBC HGB 8.8 gm/dL 13.5 - 17.5 03/19 [facility] CBC HCT 26.4 % 37.0 - 49.0 03/19 [facility] CBC MCV 90.1 fL 80.0 - 99.0 03/19 [facility] CBC MCH 30.0 pg 26.0 - 34.0 03/19 [facility] CBC MCHC 33.3 gm/dL 32.5 - 35.5 03/19 [facility] CBC RDW 14.4 % 11.5 - 14.5 03/19 NA [facility] CBC PLT 436 K/mm3 150 - 400 03/19 H [facility] CBC MPV 9.4 fL 7.4 - 10.4 03/19 [facility] CBC Sex assigned at Male 03/19 [facility] Liver ALP 75 IntUnit/L 30 - 114 03/19 [facility] Liver ALT 50 IntUnit/L 14 - 63 03/19 [facility] Liver AST 24 IntUnit/L 15 - 41 03/19 [facility] Liver Bilirubin, Total 0.6 mg/dL 0.0 - 1.2 03/19 NA M-qqebml-v-be nzoquinone imine (NAPQI), a metabolite of acetaminophen (paracetamol) , may generate erroneously low results in samples for patients that have taken toxic doses of acetaminophen (paracetamol) [facility] Liver Bilirubin, Direct 0.2 mg/dL 0.0 - 0.5 03/19 NA V-oztxgm-o-be nzoquinone imine (NAPQI), a metabolite of acetaminophen (paracetamol) , may generate erroneously low results in samples for patients that have taken toxic doses of acetaminophen (paracetamol) [facility] Liver Bilirubin, Indirect (Calc) 0.4 mg/dL 03/19 [facility] Liver Total Protein 5.5 gm/dL 6.5 - 8.1 03/19 L [facility] Liver Albumin Level 2.3 gm/dL 3.5 - 5.0 03/19 L [facility] Liver Globulin Level 3.2 gm/dL 2.6 - 4.0 03/19 [facility] Liver A/G Ratio 0.7 1.5 - 3.0 03/19 L [facility] Liver Sex assigned at Male 03/19 [facility] Mg Magnesium Level 1.6 mg/dL 1.8 - 2.4 03/19 L [facility] Mg Sex assigned at Male 03/19 NA [facility] Phos Phosphorus Level 3.6 mg/dL 2.5 - 4.9 03/19 NA [facility] Phos Sex assigned at Male 03/19 NA [facility] AutoDiff* Auto Neutrophil Percent 75.7 % 46.0 - 78.0 03/18 [facility] AutoDiff* Auto Neutrophil Absolute 8.8 K/mm3 1.4 - 7.2 03/18 H [facility] AutoDiff* Auto Lymphocyte Percent 14.3 % 9.0 - 42.0 03/18 [facility] AutoDiff* Auto Lymphocyte Absolute 1.7 K/mm3 0.8 - 4.4 03/18 [facility] AutoDiff* Auto Monocyte Percent 8.7 % 0.0 - 10.0 03/18 [facility] AutoDiff* Auto Monocyte Absolute 1.0 K/mm3 0.2 - 1.6 03/18 [facility] AutoDiff* Auto Eosinophil Percent 0.9 % 0.0 - 7.0 03/18 [facility] AutoDiff* Auto Eosinophil Absolute 0.1 K/mm3 0.0 - 0.7 03/18 [facility] AutoDiff* Auto Basophil Percent 0.4 % 0.0 - 3.0 03/18 [facility] AutoDiff* Auto Basophil Absolute 0.0 K/mm3 0.0 - 0.2 03/18 [facility] AutoDiff* Sex assigned at Male 03/18 [facility] BMP Sodium Level 138 mmol/L 136 - 144 03/18 [facility] BMP Potassium Level 4.6 mmol/L 3.5 - 5.2 02/06 /2023 NA [facility] Chloride Level 102 mmol/L 101 - 111 03/18 NA [facility] BMP CO2/Carbon Dioxide 31 mmol/L 22 - 32 03/18 NA [facility] Anion Gap 5 mmol/L 5 - 15 03/18 NA [facility] Glucose, Random 123 mg/dL 70 - 110 03/18 H [facility] BUN 10 mg/dL 7 - 29 03/18 [facility] Creatinine 0.8 mg/dL 0.5 - 1.4 03/18 [facility] BUN/Creat Ratio 12 15 - 24 03/18 [facility] Osmolality, Calculated 276 mOsm/L 275 - 295 03/18 [facility] Calcium Level 8.1 mg/dL 8.9 - 10.3 03/18 [facility] Sex assigned at Male 03/18 [facility] eGFR 90 mL/min/1.7 3m2 03/18 NA This eGFR equation utilizes the 2020 CKD-EPI creatinine equation.Stag es GFRNone or slight 1 >90 ml/minMild 2 60-89 ml/minModerat e 3 30-59 ml/minSevere 4 15-29 ml/minApproac jenny Failure 5 <15 ml/min [facility] CBC WBC 11.70 K/mm3 4.50 - 11.00 03/18 [facility] CBC RBC 3.10 M/mm3 4.50 - 5.90 03/18 [facility] CBC HGB 9.2 gm/dL 13.5 - 17.5 03/18 [facility] CBC HCT 27.9 % 37.0 - 49.0 03/18 [facility] CBC MCV 90.0 fL 80.0 - 99.0 03/18 NA [facility] CBC MCH 29.7 pg 26.0 - 34.0 03/18 [facility] CBC MCHC 33.0 gm/dL 32.5 - 35.5 03/18 [facility] CBC RDW 14.6 % 11.5 - 14.5 03/18 H [facility] CBC PLT 399 K/mm3 150 - 400 03/18 [facility] CBC MPV 9.6 fL 7.4 - 10.4 03/18 [facility] CBC Sex assigned at Male 03/18 NA [facility] Liver ALP 82 IntUnit/L 30 - 114 03/18 [facility] Liver ALT 64 IntUnit/L 14 - 63 03/18 H [facility] Liver AST 39 IntUnit/L 15 - 41 03/18 [facility] Liver Bilirubin, Total 0.8 mg/dL 0.0 - 1.2 03/18 NA R-ftwqyg-a-be nzoquinone imine (NAPQI), a metabolite of acetaminophen (paracetamol) , may generate erroneously low results in samples for patients that have taken toxic doses of acetaminophen (paracetamol) [facility] Liver Bilirubin, Direct 0.2 mg/dL 0.0 - 0.5 03/18 NA C-cvtdxs-a-be nzoquinone imine (NAPQI), a metabolite of acetaminophen (paracetamol) , may generate erroneously low results in samples for patients that have taken toxic doses of acetaminophen (paracetamol) [facility] Liver Bilirubin, Indirect (Calc) 0.6 mg/dL 03/18 [facility] Liver Total Protein 5.7 gm/dL 6.5 - 8.1 03/18 L [facility] Liver Albumin Level 2.5 gm/dL 3.5 - 5.0 03/18 L [facility] Liver Globulin Level 3.2 gm/dL 2.6 - 4.0 03/18 [facility] Liver A/G Ratio 0.8 1.5 - 3.0 03/18 L [facility] Liver Sex assigned at Male 03/18 [facility] Mg Magnesium Level 1.7 mg/dL 1.8 - 2.4 03/18 L [facility] Mg Sex assigned at Male 03/18 NA [facility] Phos Phosphorus Level 3.6 mg/dL 2.5 - 4.9 03/18 NA [facility] Phos Sex assigned at Male 03/18 NA [facility] PTT PTT - Patient 21.3 sec 23.0 - 36.0 03/18 L [facility] PTT Sex assigned at Male 03/18 NA [facility] PTT PTT - Patient 37.5 sec 23.0 - 36.0 03/17 H [facility] PTT Sex assigned at Male 03/17 [place] [facility] PTT - Patient 35.6 sec 23.0 - 36.0 03/17 NA [facility] PTT Sex assigned at Male 03/17 NA [facility] AutoDiff* Auto Neutrophil Percent 80.6 % 46.0 - 78.0 03/17 H [facility] AutoDiff* Auto Neutrophil Absolute 9.3 K/mm3 1.4 - 7.2 03/17 H [facility] AutoDiff* Auto Lymphocyte Percent 10.0 % 9.0 - 42.0 03/17 [facility] AutoDiff* Auto Lymphocyte Absolute 1.2 K/mm3 0.8 - 4.4 03/17 [facility] AutoDiff* Auto Monocyte Percent 8.2 % 0.0 - 10.0 03/17 [facility] AutoDiff* Auto Monocyte Absolute 0.9 K/mm3 0.2 - 1.6 03/17 [facility] AutoDiff* Auto Eosinophil Percent 0.8 % 0.0 - 7.0 03/17 [facility] AutoDiff* Auto Eosinophil Absolute 0.1 K/mm3 0.0 - 0.7 03/17 [facility] AutoDiff* Auto Basophil Percent 0.4 % 0.0 - 3.0 03/17 [facility] AutoDiff* Auto Basophil Absolute 0.0 K/mm3 0.0 - 0.2 03/17 NA [facility] AutoDiff* Auto NRBC % 0.1 % 03/17 NA [facility] AutoDiff* Sex assigned at Male 03/17 NA [facility] BMP Sodium Level 138 mmol/L 136 - 144 03/17 NA [facility] BMP Potassium Level 4.4 mmol/L 3.5 - 5.2 03/17 NA [facility] BMP Chloride Level 102 mmol/L 101 - 111 03/17 NA [facility] BMP CO2/Carbon Dioxide 29 mmol/L 22 - 32 03/17 NA [facility] Anion Gap 7 mmol/L 5 - 15 03/17 [facility] BMP Glucose, Random 125 mg/dL 70 - 110 03/17 H [facility] BMP BUN 9 mg/dL 7 - 29 03/17 [facility] BMP Creatinine 0.5 mg/dL 0.5 - 1.4 03/17 [facility] BUN/Creat Ratio 18 15 - 24 03/17 [facility] Osmolality, Calculated 276 mOsm/L 275 - 295 03/17 [facility] Calcium Level 8.1 mg/dL 8.9 - 10.3 03/17 [facility] eGFR >90 mL/min/1.7 3m2 03/17 NA This eGFR equation utilizes the 2020 CKD-EPI creatinine equation.Stag es GFRNone or slight 1 >90 ml/minMild 2 60-89 ml/minModerat e 3 30-59 ml/minSevere 4 15-29 ml/minApproac jenny Failure 5 <15 ml/min [facility] BMP Sex assigned at Male 03/17 [facility] CBC WBC 11.60 K/mm3 4.50 - 11.00 03/17 H [facility] CBC RBC 3.06 M/mm3 4.50 - 5.90 03/17 L [facility] CBC HGB 9.2 gm/dL 13.5 - 17.5 03/17 L [facility] CBC HCT 27.5 % 37.0 - 49.0 03/17 L [facility] CBC MCV 89.6 fL 80.0 - 99.0 03/17 [facility] CBC MCH 30.1 pg 26.0 - 34.0 03/17 [facility] CBC MCHC 33.6 gm/dL 32.5 - 35.5 03/17 [facility] CBC RDW 14.2 % 11.5 - 14.5 03/17 [facility] CBC PLT 322 K/mm3 150 - 400 03/17 [facility] CBC MPV 9.6 fL 7.4 - 10.4 03/17 [facility] CBC Sex assigned at Male 03/17 [facility] Liver ALP 75 IntUnit/L 30 - 114 03/17 [facility] Liver ALT 63 IntUnit/L 14 - 63 03/17 [facility] Liver AST 41 IntUnit/L 15 - 41 03/17 [facility] Liver Bilirubin, Total 1.0 mg/dL 0.0 - 1.2 03/17 NA P-uhcsec-v-be nzoquinone imine (NAPQI), a metabolite of acetaminophen (paracetamol) , may generate erroneously low results in samples for patients that have taken toxic doses of acetaminophen (paracetamol) [facility] Liver Bilirubin, Direct 0.3 mg/dL 0.0 - 0.5 03/17 NA U-asakur-y-be nzoquinone imine (NAPQI), a metabolite of acetaminophen (paracetamol) , may generate erroneously low results in samples for patients that have taken toxic doses of acetaminophen (paracetamol) [facility] Liver Bilirubin, Indirect (Calc) 0.7 mg/dL 03/17 [facility] Liver Total Protein 5.4 gm/dL 6.5 - 8.1 03/17 L [facility] Liver Albumin Level 2.2 gm/dL 3.5 - 5.0 03/17 L [facility] Liver Globulin Level 3.2 gm/dL 2.6 - 4.0 03/17 NA [facility] Liver A/G Ratio 0.7 1.5 - 3.0 03/17 L [facility] Liver Sex assigned at Male 03/17 NA [facility] Mg Magnesium Level 1.7 mg/dL 1.8 - 2.4 03/17 L [facility] Mg Sex assigned at Male 03/17 NA [facility] Phos Phosphorus Level 3.7 mg/dL 2.5 - 4.9 03/17 NA [facility] Phos Sex assigned at Male 03/17 NA [facility] PTT PTT - Patient 34.2 sec 23.0 - 36.0 03/17 NA [facility] PTT Sex assigned at Male 03/17 NA [facility] PTT PTT - Patient 34.3 sec 23.0 - 36.0 03/17 NA [facility] PTT Sex assigned at Male 03/17 NA [facility] PTT PTT - Patient 36.4 sec 23.0 - 36.0 03/16 H [facility] PTT Sex assigned at Male 03/16 NA [facility] PTT PTT - Patient 33.4 sec 23.0 - 36.0 03/16 NA [facility] PTT Sex assigned at Male 03/16 NA [facility] AutoDiff* Auto Neutrophil Percent 82.3 % 46.0 - 78.0 03/16 H [facility] AutoDiff* Auto Neutrophil Absolute 9.7 K/mm3 1.4 - 7.2 03/16 H [facility] AutoDiff* Auto Lymphocyte Percent 9.9 % 9.0 - 42.0 03/16 NA [facility] AutoDiff* Auto Lymphocyte Absolute 1.2 K/mm3 0.8 - 4.4 03/16 NA [facility] AutoDiff* Auto Monocyte Percent 6.9 % 0.0 - 10.0 03/16 [facility] AutoDiff* Auto Monocyte Absolute 0.8 K/mm3 0.2 - 1.6 03/16 [facility] AutoDiff* Auto Eosinophil Percent 0.6 % 0.0 - 7.0 03/16 [facility] AutoDiff* Auto Eosinophil Absolute 0.1 K/mm3 0.0 - 0.7 03/16 [facility] AutoDiff* Auto Basophil Percent 0.3 % 0.0 - 3.0 03/16 [facility] AutoDiff* Auto Basophil Absolute 0.0 K/mm3 0.0 - 0.2 03/16 [facility] AutoDiff* Sex assigned at Male 03/16 [facility] BMP Sodium Level 138 mmol/L 136 - 144 03/16 [facility] BMP Potassium Level 4.1 mmol/L 3.5 - 5.2 03/16 [facility] BMP Chloride Level 102 mmol/L 101 - 111 03/16 [facility] BMP CO2/Carbon Dioxide 31 mmol/L 22 - 32 03/16 [facility] BMP Anion Gap 5 mmol/L 5 - 15 03/16 [facility] BMP Glucose, Random 125 mg/dL 70 - 110 03/16 H [facility] BMP BUN 10 mg/dL 7 - 29 03/16 [facility] BMP Creatinine 0.7 mg/dL 0.5 - 1.4 03/16 [facility] BMP BUN/Creat Ratio 14 15 - 24 03/16 L [facility] BMP Osmolality, Calculated 276 mOsm/L 275 - 295 03/16 [facility] BMP Calcium Level 8.0 mg/dL 8.9 - 10.3 03/16 L [facility] BMP Sex assigned at Male 03/16 [facility] BMP eGFR >90 mL/min/1.7 3m2 03/16 NA This eGFR equation utilizes the 2020 CKD-EPI creatinine equation.Stag es GFRNone or slight 1 >90 ml/minMild 2 60-89 ml/minModerat e 3 30-59 ml/minSevere 4 15-29 ml/minApproac jenny Failure 5 <15 ml/min [facility] CBC WBC 11.80 K/mm3 4.50 - 11.00 03/16 H [facility] CBC RBC 3.11 M/mm3 4.50 - 5.90 03/16 L [facility] CBC HGB 9.4 gm/dL 13.5 - 17.5 03/16 L [facility] CBC HCT 27.8 % 37.0 - 49.0 03/16 L [facility] CBC MCV 89.6 fL 80.0 - 99.0 03/16 NA [facility] CBC MCH 30.3 pg 26.0 - 34.0 03/16 [facility] CBC MCHC 33.8 gm/dL 32.5 - 35.5 03/16 NA [facility] CBC RDW 14.3 % 11.5 - 14.5 03/16 NA [facility] CBC PLT 289 K/mm3 150 - 400 03/16 [facility] CBC MPV 10.0 fL 7.4 - 10.4 03/16 [facility] CBC Sex assigned at Male 03/16 [facility] Liver ALP 76 IntUnit/L 30 - 114 03/16 [facility] Liver ALT 65 IntUnit/L 14 - 63 03/16 H [facility] Liver AST 38 IntUnit/L 15 - 41 03/16 [facility] Liver Bilirubin, Total 0.8 mg/dL 0.0 - 1.2 03/16 NA K-fbzpoc-u-be nzoquinone imine (NAPQI), a metabolite of acetaminophen (paracetamol) , may generate erroneously low results in samples for patients that have taken toxic doses of acetaminophen (paracetamol) [facility] Liver Bilirubin, Direct 0.2 mg/dL 0.0 - 0.5 03/16 NA R-frfkex-g-be nzoquinone imine (NAPQI), a metabolite of acetaminophen (paracetamol) , may generate erroneously low results in samples for patients that have taken toxic doses of acetaminophen (paracetamol) [facility] Liver Bilirubin, Indirect (Calc) 0.6 mg/dL 03/16 NA [facility] Liver Total Protein 5.5 gm/dL 6.5 - 8.1 03/16 L [facility] Liver Albumin Level 2.2 gm/dL 3.5 - 5.0 03/16 L [facility] Liver Globulin Level 3.3 gm/dL 2.6 - 4.0 03/16 [facility] Liver A/G Ratio 0.7 1.5 - 3.0 03/16 L [facility] Liver Sex assigned at Male 03/16 [facility] Mg Magnesium Level 1.7 mg/dL 1.8 - 2.4 03/16 L [facility] Mg Sex assigned at Male 03/16 [facility] Phos Phosphorus Level 3.0 mg/dL 2.5 - 4.9 03/16 [facility] Phos Sex assigned at Male 03/16 [facility] PTT PTT - Patient 38.7 sec 23.0 - 36.0 03/16 H [facility] PTT Sex assigned at Male 03/16 [facility] PTT PTT - Patient 33.8 sec 23.0 - 36.0 03/16 NA [facility] PTT Sex assigned at Male 03/16 NA [facility] PTT PTT - Patient 30.6 sec 23.0 - 36.0 03/15 NA [facility] PTT Sex assigned at Male 03/15 [facility] PTT PTT - Patient 32.9 sec 23.0 - 36.0 03/15 NA [facility] PTT Sex assigned at Male 03/15 [facility] C Blood C Blood Final:No growth at 5 days.Sex assigned at :Male 03/15 Performed at: [facility], [address] [place] [address], [place] Laborer: Demond Mccoy MD Verified: March 20, 2022 14:01:59 PST [facility] AutoDiff* Auto Neutrophil Percent 86.4 % 46.0 - 78.0 03/15 H [facility] AutoDiff* Auto Neutrophil Absolute 11.3 K/mm3 1.4 - 7.2 03/15 H [facility] AutoDiff* Auto Lymphocyte Percent 7.0 % 9.0 - 42.0 03/15 L [facility] AutoDiff* Auto Lymphocyte Absolute 0.9 K/mm3 0.8 - 4.4 03/15 [facility] AutoDiff* Auto Monocyte Percent 5.9 % 0.0 - 10.0 03/15 [facility] AutoDiff* Auto Monocyte Absolute 0.8 K/mm3 0.2 - 1.6 03/15 [facility] AutoDiff* Auto Eosinophil Percent 0.7 % 0.0 - 7.0 03/15 [facility] AutoDiff* Auto Eosinophil Absolute 0.1 K/mm3 0.0 - 0.7 03/15 [facility] AutoDiff* Auto Basophil Percent 0.0 % 0.0 - 3.0 03/15 [facility] AutoDiff* Auto Basophil Absolute 0.0 K/mm3 0.0 - 0.2 03/15 [facility] AutoDiff* Sex assigned at Male 03/15 [facility] BMP Sodium Level 135 mmol/L 136 - 144 03/15 L [facility] BMP Potassium Level 3.9 mmol/L 3.5 - 5.2 03/15 [facility] BMP Chloride Level 102 mmol/L 101 - 111 03/15 [facility] BMP CO2/Carbon Dioxide 31 mmol/L 22 - 32 03/15 [facility] BMP Anion Gap 2 mmol/L 5 - 15 03/15 L [facility] BMP Glucose, Random 132 mg/dL 70 - 110 03/15 H [facility] BMP BUN 13 mg/dL 7 - 29 03/15 NA [facility] Creatinine 0.7 mg/dL 0.5 - 1.4 03/15 NA [facility] BUN/Creat Ratio 19 15 - 24 03/15 NA [facility] Osmolality, Calculated 272 mOsm/L 275 - 295 03/15 L [facility] Calcium Level 7.3 mg/dL 8.9 - 10.3 03/15 L [facility] BMP Sex assigned at Male 03/15 NA [facility] BMP eGFR >90 mL/min/1.7 3m2 03/15 NA This eGFR equation utilizes the 2020 CKD-EPI creatinine equation.Stag es GFRNone or slight 1 >90 ml/minMild 2 60-89 ml/minModerat e 3 30-59 ml/minSevere 4 15-29 ml/minApproac jenny Failure 5 <15 ml/min [facility] CBC WBC 13.10 K/mm3 4.50 - 11.00 03/15 H [facility] CBC RBC 3.03 M/mm3 4.50 - 5.90 03/15 [facility] CBC HGB 9.2 gm/dL 13.5 - 17.5 03/15 [facility] CBC HCT 27.2 % 37.0 - 49.0 03/15 [facility] CBC MCV 89.7 fL 80.0 - 99.0 03/15 NA [facility] CBC MCH 30.3 pg 26.0 - 34.0 03/15 [facility] CBC MCHC 33.8 gm/dL 32.5 - 35.5 03/15 [facility] CBC RDW 14.0 % 11.5 - 14.5 03/15 NA [facility] CBC PLT 225 K/mm3 150 - 400 03/15 NA [facility] CBC MPV 10.4 fL 7.4 - 10.4 03/15 NA [facility] CBC Sex assigned at Male 03/15 NA [facility] Liver ALP 72 IntUnit/L 30 - 114 03/15 NA [facility] Liver ALT 66 IntUnit/L 14 - 63 03/15 H [facility] Liver AST 54 IntUnit/L 15 - 41 03/15 H [facility] Liver Bilirubin, Total 1.0 mg/dL 0.0 - 1.2 03/15 NA M-kuibxc-z-be nzoquinone imine (NAPQI), a metabolite of acetaminophen (paracetamol) , may generate erroneously low results in samples for patients that have taken toxic doses of acetaminophen (paracetamol) [facility] Liver Bilirubin, Direct 0.2 mg/dL 0.0 - 0.5 03/15 NA V-cfprjf-o-be nzoquinone imine (NAPQI), a metabolite of acetaminophen (paracetamol) , may generate erroneously low results in samples for patients that have taken toxic doses of acetaminophen (paracetamol) [facility] Liver Bilirubin, Indirect (Calc) 0.8 mg/dL 03/15 NA [facility] Liver Total Protein 4.5 gm/dL 6.5 - 8.1 03/15 L [facility] Liver Albumin Level 1.9 gm/dL 3.5 - 5.0 03/15 L [facility] Liver Globulin Level 2.6 gm/dL 2.6 - 4.0 03/15 [facility] Liver A/G Ratio 0.7 1.5 - 3.0 03/15 L [facility] Liver Sex assigned at Male 03/15 [facility] Mg Magnesium Level 1.6 mg/dL 1.8 - 2.4 03/15 L [facility] Mg Sex assigned at Male 03/15 [facility] Phos Phosphorus Level 2.6 mg/dL 2.5 - 4.9 03/15 NA [facility] Phos Sex assigned at Male 03/15 NA [facility] PTT PTT - Patient 36.0 sec 23.0 - 36.0 03/15 NA [facility] PTT Sex assigned at Male 03/15 NA [facility] Lactic Lactic Acid Level 1.6 mmol/L 0.5 - 2.0 03/15 NA Venipuncture immediately after or during the administratio n of Metamizole (Dipyrone) may lead to falsely low results for Lactic. Venipuncture should be performed prior to the administratio n of Metamizole. [facility] Lactic Sex assigned at Male 03/15 NA [facility] PTT PTT - Patient 31.9 sec 23.0 - 36.0 03/15 NA [facility] PTT Sex assigned at Male 03/15 NA [facility] PTT PTT - Patient 33.5 sec 23.0 - 36.0 03/14 NA [facility] PTT Sex assigned at Male 03/14 NA [facility] PTT PTT - Patient 30.2 sec 23.0 - 36.0 03/14 NA [facility] PTT Sex assigned at Male 03/14 NA [facility] AutoDiff* Auto Neutrophil Percent 85.4 % 46.0 - 78.0 03/14 H [facility] AutoDiff* Auto Neutrophil Absolute 11.6 K/mm3 1.4 - 7.2 03/14 H [facility] AutoDiff* Auto Lymphocyte Percent 6.0 % 9.0 - 42.0 03/14 L [facility] AutoDiff* Auto Lymphocyte Absolute 0.8 K/mm3 0.8 - 4.4 03/14 NA [facility] AutoDiff* Auto Monocyte Percent 7.4 % 0.0 - 10.0 03/14 [facility] AutoDiff* Auto Monocyte Absolute 1.0 K/mm3 0.2 - 1.6 03/14 NA [facility] AutoDiff* Auto Eosinophil Percent 0.3 % 0.0 - 7.0 03/14 NA [facility] AutoDiff* Auto Eosinophil Absolute 0.0 K/mm3 0.0 - 0.7 03/14 NA [facility] AutoDiff* Auto Basophil Percent 0.9 % 0.0 - 3.0 03/14 NA [facility] AutoDiff* Auto Basophil Absolute 0.1 K/mm3 0.0 - 0.2 03/14 NA [facility] AutoDiff* Sex assigned at Male 03/14 NA [facility] BMP Sodium Level 135 mmol/L 136 - 144 03/14 L [facility] BMP Potassium Level 3.6 mmol/L 3.5 - 5.2 03/14 NA [facility] Chloride Level 101 mmol/L 101 - 111 03/14 [facility] BMP CO2/Carbon Dioxide 29 mmol/L 22 - 32 03/14 [facility] Anion Gap 5 mmol/L 5 - 15 03/14 NA [facility] BMP Glucose, Random 184 mg/dL 70 - 110 03/14 H [facility] BMP BUN 19 mg/dL 7 - 29 03/14 [facility] Creatinine 0.8 mg/dL 0.5 - 1.4 03/14 [facility] BUN/Creat Ratio 24 15 - 24 03/14 [facility] Osmolality, Calculated 277 mOsm/L 275 - 295 03/14 [facility] Calcium Level 7.3 mg/dL 8.9 - 10.3 03/14 L [facility] eGFR >90 mL/min/1.7 3m2 03/14 NA This eGFR equation utilizes the 2020 CKD-EPI creatinine equation.Stag es GFRNone or slight 1 >90 ml/minMild 2 60-89 ml/minModerat e 3 30-59 ml/minSevere 4 15-29 ml/minApproac jenny Failure 5 <15 ml/min [facility] BMP Sex assigned at Male 03/14 [facility] CBC WBC 13.50 K/mm3 4.50 - 11.00 03/14 H [facility] CBC RBC 3.11 M/mm3 4.50 - 5.90 03/14 L [facility] CBC HGB 9.4 gm/dL 13.5 - 17.5 03/14 L [facility] CBC HCT 27.7 % 37.0 - 49.0 03/14 L [facility] CBC MCV 89.4 fL 80.0 - 99.0 03/14 NA [facility] CBC MCH 30.2 pg 26.0 - 34.0 03/14 NA [facility] CBC MCHC 33.8 gm/dL 32.5 - 35.5 03/14 [facility] CBC RDW 14.4 % 11.5 - 14.5 03/14 [facility] CBC PLT 183 K/mm3 150 - 400 03/14 [facility] CBC MPV 11.0 fL 7.4 - 10.4 03/14 H [facility] CBC Sex assigned at Male 03/14 [facility] Liver ALP 74 IntUnit/L 30 - 114 03/14 [facility] Liver ALT 40 IntUnit/L 14 - 63 03/14 [facility] Liver AST 40 IntUnit/L 15 - 41 03/14 [facility] Liver Bilirubin, Total 1.0 mg/dL 0.0 - 1.2 03/14 NA Z-olvnok-o-be nzoquinone imine (NAPQI), a metabolite of acetaminophen (paracetamol) , may generate erroneously low results in samples for patients that have taken toxic doses of acetaminophen (paracetamol) [facility] Liver Bilirubin, Direct 0.3 mg/dL 0.0 - 0.5 03/14 NA A-mknllm-b-be nzoquinone imine (NAPQI), a metabolite of acetaminophen (paracetamol) , may generate erroneously low results in samples for patients that have taken toxic doses of acetaminophen (paracetamol) [facility] Liver Bilirubin, Indirect (Calc) 0.7 mg/dL 03/14 [facility] Liver Total Protein 4.7 gm/dL 6.5 - 8.1 03/14 L [facility] Liver Albumin Level 2.0 gm/dL 3.5 - 5.0 03/14 L [facility] Liver Globulin Level 2.7 gm/dL 2.6 - 4.0 03/14 NA [facility] Liver A/G Ratio 0.7 1.5 - 3.0 03/14 L [facility] Liver Sex assigned at Male 03/14 NA [facility] Mg Magnesium Level 1.6 mg/dL 1.8 - 2.4 03/14 L [facility] Mg Sex assigned at Male 03/14 NA [facility] Phos Phosphorus Level 2.7 mg/dL 2.5 - 4.9 03/14 NA [facility] Phos Sex assigned at Male 03/14 NA [facility] PTT PTT - Patient 33.2 sec 23.0 - 36.0 03/14 NA [facility] PTT Sex assigned at Male 03/14 NA [facility] Lactic Lactic Acid Level 0.9 mmol/L 0.5 - 2.0 03/14 NA Venipuncture immediately after or during the administratio n of Metamizole (Dipyrone) may lead to falsely low results for Lactic. Venipuncture should be performed prior to the administratio n of Metamizole. [facility] Lactic Sex assigned at Male 03/14 NA [facility] C Blood C Blood Final:No growth at 5 days.Sex assigned at :Male 03/14 Performed at: [facility], [address] [place] [address], [place] Laborer: Demond Mccoy MD Verified: March 19, 2022 06:01:35 PST [facility] PTT PTT - Patient 31.1 sec 23.0 - 36.0 03/14 NA [facility] PTT Sex assigned at Male 03/14 NA [facility] PTT PTT - Patient 33.4 sec 23.0 - 36.0 03/13 NA [facility] PTT Sex assigned at Male 03/13 [facility] PTT PTT - Patient 29.7 sec 23.0 - 36.0 03/13 NA [facility] PTT Sex assigned at Male 03/13 NA [facility] AutoDiff* Auto Neutrophil Percent 85.4 % 46.0 - 78.0 03/13 H [facility] AutoDiff* Auto Neutrophil Absolute 12.9 K/mm3 1.4 - 7.2 03/13 H [facility] AutoDiff* Auto Lymphocyte Percent 5.8 % 9.0 - 42.0 03/13 [facility] AutoDiff* Auto Lymphocyte Absolute 0.9 K/mm3 0.8 - 4.4 03/13 [facility] AutoDiff* Auto Monocyte Percent 8.2 % 0.0 - 10.0 03/13 [facility] AutoDiff* Auto Monocyte Absolute 1.2 K/mm3 0.2 - 1.6 03/13 [facility] AutoDiff* Auto Eosinophil Percent 0.1 % 0.0 - 7.0 03/13 [facility] AutoDiff* Auto Eosinophil Absolute 0.0 K/mm3 0.0 - 0.7 03/13 [facility] AutoDiff* Auto Basophil Percent 0.5 % 0.0 - 3.0 03/13 [facility] AutoDiff* Auto Basophil Absolute 0.1 K/mm3 0.0 - 0.2 03/13 [facility] AutoDiff* Auto NRBC % 0.1 % 03/13 [facility] AutoDiff* Sex assigned at Male 03/13 [facility] BMP Sodium Level 134 mmol/L 136 - 144 03/13 [facility] BMP Potassium Level 3.7 mmol/L 3.5 - 5.2 03/13 [facility] BMP Chloride Level 100 mmol/L 101 - 111 03/13 [facility] BMP CO2/Carbon Dioxide 27 mmol/L 22 - 32 03/13 NA [facility] BMP Anion Gap 7 mmol/L 5 - 15 03/13 NA [facility] BMP Glucose, Random 126 mg/dL 70 - 110 03/13 H [facility] BMP BUN 20 mg/dL 7 - 29 03/13 NA [facility] BMP Creatinine 0.8 mg/dL 0.5 - 1.4 03/13 NA [facility] BMP Calcium Level 7.5 mg/dL 8.9 - 10.3 03/13 L [facility] BMP Sex assigned at Male 03/13 NA [facility] BMP eGFR >90 mL/min/1.7 3m2 03/13 NA This eGFR equation utilizes the 2020 CKD-EPI creatinine equation.Stag es GFRNone or slight 1 >90 ml/minMild 2 60-89 ml/minModerat e 3 30-59 ml/minSevere 4 15-29 ml/minApproac jenny Failure 5 <15 ml/min [facility] CBC WBC 15.10 K/mm3 4.50 - 11.00 03/13 H [facility] CBC RBC 3.45 M/mm3 4.50 - 5.90 03/13 L [facility] CBC HGB 10.2 gm/dL 13.5 - 17.5 03/13 L [facility] CBC HCT 31.4 % 37.0 - 49.0 03/13 L [facility] CBC MCV 91.1 fL 80.0 - 99.0 03/13 NA [facility] CBC MCH 29.6 pg 26.0 - 34.0 03/13 NA [facility] CBC MCHC 32.5 gm/dL 32.5 - 35.5 03/13 NA [facility] CBC RDW 14.4 % 11.5 - 14.5 03/13 NA [facility] CBC PLT 152 K/mm3 150 - 400 03/13 NA [facility] CBC MPV 10.2 fL 7.4 - 10.4 03/13 [facility] CBC Sex assigned at Male 03/13 NA [facility] Liver ALP 80 IntUnit/L 30 - 114 03/13 NA [facility] Liver ALT 25 IntUnit/L 14 - 63 03/13 NA [facility] Liver AST 19 IntUnit/L 15 - 41 03/13 NA [facility] Liver Bilirubin, Total 1.6 mg/dL 0.0 - 1.2 03/13 H N-elytao-h-be nzoquinone imine (NAPQI), a metabolite of acetaminophen (paracetamol) , may generate erroneously low results in samples for patients that have taken toxic doses of acetaminophen (paracetamol) [facility] Liver Bilirubin, Direct 0.5 mg/dL 0.0 - 0.5 03/13 NA N-bypziu-b-be nzoquinone imine (NAPQI), a metabolite of acetaminophen (paracetamol) , may generate erroneously low results in samples for patients that have taken toxic doses of acetaminophen (paracetamol) [facility] Liver Bilirubin, Indirect (Calc) 1.1 mg/dL 03/13 [facility] Liver Total Protein 5.1 gm/dL 6.5 - 8.1 03/13 L [facility] Liver Albumin Level 2.3 gm/dL 3.5 - 5.0 03/13 L [facility] Liver Globulin Level 2.8 gm/dL 2.6 - 4.0 03/13 [facility] Liver A/G Ratio 0.8 1.5 - 3.0 03/13 L [facility] Liver Sex assigned at Male 03/13 [facility] Mg Magnesium Level 1.6 mg/dL 1.8 - 2.4 03/13 L [facility] Mg Sex assigned at Male 03/13 [facility] Phos Phosphorus Level 2.4 mg/dL 2.5 - 4.9 03/13 L [facility] Phos Sex assigned at Male 03/13 [facility] PTT PTT - Patient 32.5 sec 23.0 - 36.0 03/13 NA [facility] PTT Sex assigned at Male 03/13 NA [facility] PTT PTT - Patient 30.4 sec 23.0 - 36.0 03/13 NA [facility] PTT Sex assigned at Male 03/13 NA [facility] PTT PTT - Patient 31.9 sec 23.0 - 36.0 03/12 NA [facility] PTT Sex assigned at Male 03/12 [facility] C Blood C Blood Final:Stap hylococcus aureus Performed at [facility] [address] [place] [address] [employer] Laborer: Demond Mccoy MDORGANISM :SASex assigned at :Male 03/12 [facility] Lactic Lactic Acid Level 1.4 mmol/L 0.5 - 2.0 03/12 NA Venipuncture immediately after or during the administratio n of Metamizole (Dipyrone) may lead to falsely low results for Lactic. Venipuncture should be performed prior to the administratio n of Metamizole. [facility] Lactic Sex assigned at Male 03/12 NA [facility] PTT PTT - Patient 27.6 sec 23.0 - 36.0 03/12 NA [facility] PTT Sex assigned at Male 03/12 [facility] C Blood C Blood Final:No growth at 5 days.Sex assigned at :Male 03/12 [facility] AutoDiff* Auto Neutrophil Percent 84.4 % 46.0 - 78.0 03/12 H [facility] AutoDiff* Auto Neutrophil Absolute 14.7 K/mm3 1.4 - 7.2 03/12 H [facility] AutoDiff* Auto Lymphocyte Percent 7.0 % 9.0 - 42.0 03/12 L [facility] AutoDiff* Auto Lymphocyte Absolute 1.2 K/mm3 0.8 - 4.4 03/12 [facility] AutoDiff* Auto Monocyte Percent 8.3 % 0.0 - 10.0 03/12 [facility] AutoDiff* Auto Monocyte Absolute 1.4 K/mm3 0.2 - 1.6 03/12 [facility] AutoDiff* Auto Eosinophil Percent 0.1 % 0.0 - 7.0 03/12 [facility] AutoDiff* Auto Eosinophil Absolute 0.0 K/mm3 0.0 - 0.7 03/12 [facility] AutoDiff* Auto Basophil Percent 0.2 % 0.0 - 3.0 03/12 [facility] AutoDiff* Auto Basophil Absolute 0.0 K/mm3 0.0 - 0.2 03/12 [facility] AutoDiff* Sex assigned at Male 03/12 [facility] BMP Sodium Level 131 mmol/L 136 - 144 03/12 L [facility] BMP Potassium Level 3.8 mmol/L 3.5 - 5.2 03/12 [facility] BMP Chloride Level 96 mmol/L 101 - 111 03/12 [facility] BMP CO2/Carbon Dioxide 28 mmol/L 22 - 32 03/12 [facility] BMP Anion Gap 7 mmol/L 5 - 15 03/12 [facility] BMP Glucose, Random 116 mg/dL 70 - 110 03/12 [facility] BMP BUN 30 mg/dL 7 - 29 03/12 [facility] BMP Creatinine 0.8 mg/dL 0.5 - 1.4 03/12 [facility] BMP BUN/Creat Ratio 38 15 - 24 03/12 [facility] BMP Osmolality, Calculated 270 mOsm/L 275 - 295 03/12 L [facility] BMP Calcium Level 7.6 mg/dL 8.9 - 10.3 03/12 [facility] BMP Sex assigned at Male 03/12 [facility] BMP eGFR 90 mL/min/1.7 3m2 03/12 NA This eGFR equation utilizes the 2020 CKD-EPI creatinine equation.Stag es GFRNone or slight 1 >90 ml/minMild 2 60-89 ml/minModerat e 3 30-59 ml/minSevere 4 15-29 ml/minApproac jenny Failure 5 <15 ml/min [facility] CBC WBC 17.40 K/mm3 4.50 - 11.00 03/12 H [facility] CBC RBC 3.64 M/mm3 4.50 - 5.90 03/12 L [facility] CBC HGB 10.9 gm/dL 13.5 - 17.5 03/12 L [facility] CBC HCT 33.0 % 37.0 - 49.0 03/12 L [facility] CBC MCV 90.7 fL 80.0 - 99.0 03/12 NA [facility] CBC MCH 29.9 pg 26.0 - 34.0 03/12 NA [facility] CBC MCHC 33.0 gm/dL 32.5 - 35.5 03/12 NA [facility] CBC RDW 14.1 % 11.5 - 14.5 03/12 NA [facility] CBC PLT 132 K/mm3 150 - 400 03/12 L [facility] CBC MPV 11.9 fL 7.4 - 10.4 03/12 H [facility] CBC Sex assigned at Male 03/12 NA [facility] LipidP Total Cholesterol 114 mg/dL 90 - 200 03/12 NA Venipuncture immediately after or during the administratio n of Metamizole (Dipyrone) may lead to falsely low results for Chol. Venipuncture should be performed prior to the administratio n of Metamizole. [facility] LipidP Triglyceride s 109 mg/dL 42 - 197 03/12 NA Y-jrrslr-h-be nzoquinone imine (NAPQI), a metabolite of acetaminophen (paracetamol) , may generate erroneously low results in samples for patients that have taken toxic doses of acetaminophen (paracetamol) [facility] LipidP HDL Cholesterol 31 mg/dL 35 - 60 03/12 L Venipuncture immediately after or during the administratio n of Metamizole (Dipyrone) may lead to falsely low results for HDL. Venipuncture should be performed prior to the administratio n of Metamizole. [facility] LipidP LDL Cholesterol, Calc 61 mg/dL - <=130 03/12 NA [facility] LipidP Total Chol/HDL Ratio 4 03/12 NA NOTE: Reference ranges reflect current 2004 recommendatio ns of the National Cholesterol Educational Program.See Interpretatio n Below: Men Women 3.4 1/2 average risk 3.3 5.0 average risk 4.4 9.6 2X average risk 7.1 24.0 3X average risk 11.1 [facility] LipidP LDL/HDL Ratio 2.0 03/12 NA [facility] LipidP VLDL Cholesterol, Calc 22 mg/dL 14 - 35 03/12 NA [facility] LipidP Sex assigned at Male 03/12 NA [facility] Liver ALP 92 IntUnit/L 30 - 114 03/12 [facility] Liver ALT 32 IntUnit/L 14 - 63 03/12 NA [facility] Liver AST 26 IntUnit/L 15 - 41 03/12 [facility] Liver Bilirubin, Total 1.6 mg/dL 0.0 - 1.2 03/12 H Z-ktcgjl-f-be nzoquinone imine (NAPQI), a metabolite of acetaminophen (paracetamol) , may generate erroneously low results in samples for patients that have taken toxic doses of acetaminophen (paracetamol) [facility] Liver Bilirubin, Direct 0.5 mg/dL 0.0 - 0.5 03/12 NA X-lymjab-k-be nzoquinone imine (NAPQI), a metabolite of acetaminophen (paracetamol) , may generate erroneously low results in samples for patients that have taken toxic doses of acetaminophen (paracetamol) [facility] Liver Bilirubin, Indirect (Calc) 1.1 mg/dL 03/12 NA [facility] Liver Total Protein 5.6 gm/dL 6.5 - 8.1 03/12 L [facility] Liver Albumin Level 2.6 gm/dL 3.5 - 5.0 03/12 L [facility] Liver Globulin Level 3.0 gm/dL 2.6 - 4.0 03/12 NA [facility] Liver A/G Ratio 0.9 1.5 - 3.0 03/12 L [facility] Liver Sex assigned at Male 03/12 NA [facility] Mg Magnesium Level 1.7 mg/dL 1.8 - 2.4 03/12 L [facility] Mg Sex assigned at Male 03/12 NA [facility] Phos Phosphorus Level <1.5 mg/dL 2.5 - 4.9 03/12 L [facility] Phos Sex assigned at Male 03/12 NA [facility] PTT PTT - Patient 28.6 sec 23.0 - 36.0 03/12 NA [facility] PTT Sex assigned at Male 03/12 NA [facility] TSH3 TSH Thyroid Stim Hormone 3RD Generation 4.99 uInt Unit/mL 0.45 - 5.33 03/12 NA Reference Ranges:Genera l Population (males and non- females): 0.45 - 5.33 Females, 1st Trimester: 0.05 - 3.70 Females, 2nd Trimester: 0.31 - 4.35 Females, 3rd Trimester: 0.41 - 5.18 [facility] TSH3 Sex assigned at Male 03/12 NA [facility] PTT PTT - Patient 26.9 sec 23.0 - 36.0 03/12 [facility] PTT Sex assigned at Male 03/12 NA [facility] PTT PTT - Patient 29.7 sec 23.0 - 36.0 03/11 NA [facility] PTT Sex assigned at Male 03/11 NA [facility] VancR Vancomycin Lvl Random 14.6 mcg/mL 03/11 NA [facility] VancR Sex assigned at Male 03/11 NA [facility] PTT PTT - Patient 26.1 sec 23.0 - 36.0 03/11 [facility] PTT Sex assigned at Male 03/11 [facility] [id number] Hemoglobin A1C by HPLC 6.4 % 4.5 - 5.6 03/11 H [facility] [id number] Calculated Mean Blood Glucose 151 mg/dL 03/11 NA [facility] [id number] Sex assigned at Male 03/11 [facility] AutoDiff* Auto Neutrophil Percent 87.1 % 46.0 - 78.0 03/11 H [facility] AutoDiff* Auto Neutrophil Absolute 20.6 K/mm3 1.4 - 7.2 03/11 [facility] AutoDiff* Auto Lymphocyte Percent 4.2 % 9.0 - 42.0 03/11 L [facility] AutoDiff* Auto Lymphocyte Absolute 1.0 K/mm3 0.8 - 4.4 03/11 [facility] AutoDiff* Auto Monocyte Percent 8.5 % 0.0 - 10.0 03/11 [facility] AutoDiff* Auto Monocyte Absolute 2.0 K/mm3 0.2 - 1.6 03/11 [facility] AutoDiff* Auto Eosinophil Percent 0.0 % 0.0 - 7.0 03/11 [facility] AutoDiff* Auto Eosinophil Absolute 0.0 K/mm3 0.0 - 0.7 03/11 [facility] AutoDiff* Auto Basophil Percent 0.2 % 0.0 - 3.0 03/11 [facility] AutoDiff* Auto Basophil Absolute 0.1 K/mm3 0.0 - 0.2 03/11 [facility] AutoDiff* Sex assigned at Male 03/11 [facility] BMP Sodium Level 137 mmol/L 136 - 144 03/11 [facility] BMP Potassium Level 4.4 mmol/L 3.5 - 5.2 03/11 [facility] BMP Chloride Level 100 mmol/L 101 - 111 03/11 L [facility] CO2/Carbon Dioxide 28 mmol/L 22 - 32 03/11 NA [facility] Anion Gap 9 mmol/L 5 - 15 03/11 NA [facility] Glucose, Random 96 mg/dL 70 - 110 03/11 NA [facility] BUN 50 mg/dL 7 - 29 03/11 H [facility] Creatinine 0.9 mg/dL 0.5 - 1.4 03/11 NA [facility] BUN/Creat Ratio 56 15 - 24 03/11 H [facility] Osmolality, Calculated 287 mOsm/L 275 - 295 03/11 NA [facility] Calcium Level 7.9 mg/dL 8.9 - 10.3 03/11 L [facility] eGFR 83 mL/min/1.7 3m2 03/11 NA This eGFR equation utilizes the 2020 CKD-EPI creatinine equation.Stag es GFRNone or slight 1 >90 ml/minMild 2 60-89 ml/minModerat e 3 30-59 ml/minSevere 4 15-29 ml/minApproac jenny Failure 5 <15 ml/min [facility] Sex assigned at Male 03/11 [facility] CBC WBC 23.70 K/mm3 4.50 - 11.00 03/11 H [facility] CBC RBC 3.50 M/mm3 4.50 - 5.90 03/11 L [facility] CBC HGB 10.2 gm/dL 13.5 - 17.5 03/11 L [facility] CBC HCT 31.9 % 37.0 - 49.0 03/11 L [facility] CBC MCV 91.1 fL 80.0 - 99.0 03/11 NA [facility] CBC MCH 29.1 pg 26.0 - 34.0 03/11 NA [facility] CBC MCHC 31.9 gm/dL 32.5 - 35.5 03/11 [facility] CBC RDW 14.4 % 11.5 - 14.5 03/11 [facility] CBC PLT 118 K/mm3 150 - 400 03/11 L [facility] CBC MPV 11.2 fL 7.4 - 10.4 03/11 H [facility] CBC Manual Diff Y/N Man Diff 03/11 NA [facility] CBC Sex assigned at Male 03/11 NA [facility] Liver ALP 75 IntUnit/L 30 - 114 03/11 NA [facility] Liver ALT 22 IntUnit/L 14 - 63 03/11 NA [facility] Liver AST 14 IntUnit/L 15 - 41 03/11 L [facility] Liver Bilirubin, Total 1.2 mg/dL 0.0 - 1.2 03/11 NA N-nwlcxc-a-be nzoquinone imine (NAPQI), a metabolite of acetaminophen (paracetamol) , may generate erroneously low results in samples for patients that have taken toxic doses of acetaminophen (paracetamol) [facility] Liver Bilirubin, Direct 0.3 mg/dL 0.0 - 0.5 03/11 NA B-lkgnuk-l-be nzoquinone imine (NAPQI), a metabolite of acetaminophen (paracetamol) , may generate erroneously low results in samples for patients that have taken toxic doses of acetaminophen (paracetamol) [facility] Liver Bilirubin, Indirect (Calc) 0.9 mg/dL 03/11 [facility] Liver Total Protein 5.5 gm/dL 6.5 - 8.1 03/11 L [facility] Liver Albumin Level 2.5 gm/dL 3.5 - 5.0 03/11 L [facility] Liver Globulin Level 3.0 gm/dL 2.6 - 4.0 03/11 [facility] Liver A/G Ratio 0.8 1.5 - 3.0 03/11 L [facility] Liver Sex assigned at Male 03/11 [facility] MDiff Bands % 1 % 0 - 4 03/11 [facility] MDiff Absolute Bands Count 0.2 K/mm3 03/11 NA [facility] MDiff Manual Neutrophil Percent 92 % 46 - 78 03/11 H [facility] MDiff Manual Neutrophil Absolute 22.0 K/mm3 1.4 - 7.2 03/11 H [facility] MDiff Manual Lymphocyte Percent 2 % 9 - 42 03/11 L [facility] MDiff Manual Lymphocyte Absolute 0.5 K/mm3 0.8 - 4.4 03/11 L [facility] MDiff Manual Monocyte Percent 5 % 0 - 10 03/11 NA [facility] MDiff Manual Monocyte Absolute 1.2 K/mm3 0.2 - 1.6 03/11 NA [facility] MDiff RBC Morphology Normal Normal 03/11 NA [facility] MDiff Toxic Granulation 1+ None 03/11 * [facility] MDiff PLT Estimate Decreased Normal 03/11 * [facility] MDiff Platelet Clumps None None 03/11 NA [facility] MDiff Sex assigned at Male 03/11 NA [facility] Mg Magnesium Level 2.3 mg/dL 1.8 - 2.4 03/11 NA [facility] Mg Sex assigned at Male 03/11 NA [facility] Phos Phosphorus Level 2.0 mg/dL 2.5 - 4.9 03/11 L [facility] Phos Sex assigned at Male 03/11 NA [facility] PTT PTT - Patient 31.4 sec 23.0 - 36.0 03/11 NA [facility] PTT Sex assigned at Male 03/11 NA [facility] PTT PTT - Patient 27.6 sec 23.0 - 36.0 03/11 NA [facility] PTT Sex assigned at Male 03/11 NA [facility] C Urine C Urine Final:>100 ,000 cfu/ml Klebsiella oxytoca <10,000 cfu/ml Citrobacte r koseri Performed at [address] [address] [employer] Laborer: Demond Mccoy MDORGANISM :Corry Bacon assigned at :Male 03/11 [facility] Lactic Lactic Acid Level 2.1 mmol/L 0.5 - 2.0 03/11 H Venipuncture immediately after or during the administratio n of Metamizole (Dipyrone) may lead to falsely low results for Lactic. Venipuncture should be performed prior to the administratio n of Metamizole. [facility] Lactic Sex assigned at Male 03/11 NA [facility] UAIf UA - Source/Colle ct Type Urine Voided 03/10 NA [facility] UAIf UA - Appearance SL Clear 03/10 * [facility] RED 03[facility]10 * [facility] UA - pH 8.0 5.0 - 8.0 03/10 NA [facility] UA - Specific [place] 1.012 1.005 - 1.025 03/10 [facility] - Protein 100 mg/dL Negative 03/10 * [facility] UA - Glucose NEG mg/dL Negative 03/10 [facility] Ketones [facility]G Negative 03/10 [facility] - Bilirubin NEG Negative 03/10 [facility] - Blood MANY Negative 03/10 * [facility] UAIf UA - Urobilinogen <2.0 mg/dL 0.1 - 2.0 03/10 NA [facility] UAIf UA - Nitrites NEG Negative 03/10 [facility] - Leukocyte Esterase MOD Negative 03/10 * [facility] Y/N Yes 03/10 [facility] - WBC 46 /HPF 0 - 5 03/10 [facility] - RBC 15 /HPF 0 - 2 03/10 H [facility] UACSIf UA - Bacteria MANY 03/10 * [facility] UACSIf UA - Epithelials, Squamous <1 /HPF 03/10 NA [facility] UACSIf UA - Mucus RARE None 03/10 [facility] UACSIf Sex assigned at Male 03/10 [facility] Lactic Lactic Acid Level 2.4 mmol/L 0.5 - 2.0 03/10 H Venipuncture immediately after or during the administratio n of Metamizole (Dipyrone) may lead to falsely low results for Lactic. Venipuncture should be performed prior to the administratio n of Metamizole. [facility] Lactic Sex assigned at Male 03/10 [facility] PTT PTT - Patient 27.2 sec 23.0 - 36.0 03/10 [facility] PTT Sex assigned at Male 03/10 [facility] C Blood C Blood Final:Citr obacter koseri Staphyloco ccus aureus Enterococc us faecalis Please refer to accession #[id number] 393 for sensitivit ies. In 2 of 2 sets drawn [place] [address] [employer] Laborer: RASHARD Moctezumaex assigned at :Male 03/10 [facility] BCPCRPNL2 BC IMP (carbapenem resistance) NOT_DETECT Not Detected 03/10 [facility] BCPCRPNL2 BC KPC (carbap-resi stance gene) NOT_DETECT Not Detected 03/10 [facility] BCPCRPNL2 BC OXA-48-like (carbapenem resistance) NOT_DETECT Not Detected 03/10 [facility] BCPCRPNL2 BC NDM (carbapenem resistance) NOT_DETECT Not Detected 03/10 [facility] BCPCRPNL2 BC VIM (carbapenem resistance) NOT_DETECT Not Detected 03/10 [facility] BCPCRPNL2 BC mcr-1 (colistin resistance) NOT_APPLIC ABLE Not Detected 03/[address] CTX-M (extended spectrum B-lactamase) NOT_DETECT Not Detected 03/[address] mecA/C and MREJ (methicillin resist) NOT_DETECT Not Detected 03/[address] Hardeep/B vancomycin-r esistance NOT_DETECT Not Detected 03/[address] Enterococcus faecalis DETECT Not Detected 03/10 * Enterococcus faecalis and faecium are gram-positive cocci that normally inhabit the gastrointesti nal tract of humans, but are among the most common nosocomial pathogens. Enterococcal infections include urinary tract infections, hepatobiliary sepsis, endocarditis, surgical wound infection, bloodstream infection, and sepsis. Enterococci can carry vancomycin-re sistance genes such as Hardeep and vanB. E. faecalis is more pathogenic than E. faecium, the latter exhibits more resistance and is associated with the majority of vancomycin-re sistant enterococcus (VRE) infections. [address] Enterococcus faecium NOT_DETECT Not Detected 03/[address] Listeria monocytogene s NOT_DETECT Not Detected 03/[address] Staphylococc us DETECT Not Detected 03/10 * The BCID Panel contains three assays for the detection of Staphylococcu s species. The Staphylococcu s aureus assay and two multi-species assays (Staphylococc us1 and Staphylococcu s2) which are the most commonly encountered CoNS recovered for positive blood cultures. However, this is a large and diverse group and detection by BCID Panel assays is variable [address] Staphylococc us aureus DETECT Not Detected 03/10 * The S.aureus assay detects all strains of S. aureus and does not cross-react with other organisms, including other species of Staphylococcu s. The multi-species assays detect the most prevalent coagulase-neg ative Staphylococcu s (CoNS) species encountered in blood culture specimens and can also react with high levels of S. aureus. [address] Staphylococc us epidermidis NOT_DETECT Not Detected 03/10 [facility] BCPCRPN BC Staphylococc us lugdunensis NOT_DETECT Not Detected 03/10 [facility] BCPCRPN BC Streptococcu s NOT_DETECT Not Detected 03/10 [facility] Streptococcu s agalac Group B NOT_DETECT Not Detected 03/10 [facility] Streptococcu s pneumoniae NOT_DETECT Not Detected 03/10 [facility] BCPCRPN BC Strep pyogenes Group A NOT_DETECT Not Detected 03/10 [facility] BC Acinetobacte r baumannii NOT_DETECT Not Detected 03/10 [facility] Bacteroides fragilis NOT_DETECT Not Detected 03/10 [facility] BC Enterobacter iaceae DETECT Not Detected 03/10 * The BCID Panel cannot currently provide any result for Enterobacteri aceae that are specifically listed with their Genus and Species. [facility] BCPCRPNL2 BC Enterobacter ales NOT_DETECT Not Detected 03/10 [facility] BC Enterobacter cloacae complex NOT_DETECT Not Detected 03/10 [facility] BC Escherichia coli NOT_DETECT Not Detected 03/10 [facility] BC Klebsiella aerogenes NOT_DETECT Not Detected 03/10 [facility] Klebsiella oxytoca NOT_DETECT Not Detected 03/10 [facility] BCPCRPN BC Klebsiella pneumoniae NOT_DETECT Not Detected 03/10 [facility] BC Proteus NOT_DETECT Not Detected 03/10 [facility] BCPCRPN BC Salmonella NOT_DETECT Not Detected 03/10 [facility] BCPCRPN BC Serratia marcescens NOT_DETECT Not Detected 03/10 [facility] Haemophilus influenzae NOT_DETECT Not Detected 03/10 [facility] BCPCRPN BC Neisseria meningitidis NOT_DETECT Not Detected 03/10 [place] [address] BC Pseudomonas aeruginosa NOT_DETECT Not Detected 03/10 [place] [address] BC Stenotrophom onas maltophilia NOT_DETECT Not Detected 03/10 [place] [address] BC Cindy albicans NOT_DETECT Not Detected 03/10 [place] [address] BC Cindy auris NOT_DETECT Not Detected 03/10 [place] [address] BC Cindy glabrata NOT_DETECT Not Detected 03/10 [place] [address] BC Cindy krusei NOT_DETECT Not Detected 03/10 [place] [place] [address] [place] C[place] parapsilosis NOT_DETECT Not Detected 03/10 [place] [address] [place] tropicalis NOT_DETECT Not Detected 03/10 [place] [address] BC Cryptococcus neoformans/g attii NOT_DETECT Not Detected 03/10 [place] [address] Sex assigned at Male 03/10 [facility] Lactic Lactic Acid Level 4.5 mmol/L 0.5 - 2.0 03/10 C CRITICAL TEST RESULTS REPORTING1. Result has been confirmed by repeat testing? Y/N N2. Person Results Called To: Name / Title: Estelita Smith RN3. When Reported: a.Date/Time Reported: 03/10/2022 12:59 b. Who Reported Results: Name: GIANA CLS4. TWO Patient identifiers Confirmed? Y/N Y5. Confirmed Read-back of patient information and Test results? Y/N YVenipuncture immediately after or during the administratio n of Metamizole (Dipyrone) may lead to falsely low results for Lactic. Venipuncture should be performed prior to the administratio n of Metamizole. [facility] Lactic Sex assigned at Male 03/10 [facility] C Blood C Blood Final:Citr obacter koseri Staphyloco ccus aureus Enterococc us faecalis In 2 of 2 sets drawn [place] [address] [employer] Laborer: Demond Mccoy MDORGANISM :Demetrice oconnorfaecaSex assigned at :Male 03/10 [facility] PTT PTT - Patient 25.7 sec 23.0 - 36.0 03/10 [facility] PTT Sex assigned at Male 03/10 [facility] AutoDiff* Auto Neutrophil Percent 86.9 % 46.0 - 78.0 03/10 [facility] AutoDiff* Auto Neutrophil Absolute 22.5 K/mm3 1.4 - 7.2 03/10 [facility] AutoDiff* Auto Lymphocyte Percent 2.5 % 9.0 - 42.0 03/10 [facility] AutoDiff* Auto Lymphocyte Absolute 0.6 K/mm3 0.8 - 4.4 03/10 [facility] AutoDiff* Auto Monocyte Percent 10.4 % 0.0 - 10.0 03/10 [facility] AutoDiff* Auto Monocyte Absolute 2.7 K/mm3 0.2 - 1.6 03/10 H [facility] AutoDiff* Auto Eosinophil Percent 0.0 % 0.0 - 7.0 03/10 [facility] AutoDiff* Auto Eosinophil Absolute 0.0 K/mm3 0.0 - 0.7 03/10 [facility] AutoDiff* Auto Basophil Percent 0.2 % 0.0 - 3.0 03/10 [facility] AutoDiff* Auto Basophil Absolute 0.0 K/mm3 0.0 - 0.2 03/10 [facility] AutoDiff* Sex assigned at Male 03/10 [facility] BMP Sodium Level 135 mmol/L 136 - 144 03/10 [facility] BMP Potassium Level 4.3 mmol/L 3.5 - 5.2 03/10 [facility] BMP Chloride Level 98 mmol/L 101 - 111 03/10 [facility] BMP CO2/Carbon Dioxide 30 mmol/L 22 - 32 03/10 NA [facility] Anion Gap 7 mmol/L 5 - 15 03/10 NA [facility] BMP Glucose, Random 146 mg/dL 70 - 110 03/10 H [facility] BUN 62 mg/dL 7 - 29 03/10 H [facility] BMP Creatinine 1.1 mg/dL 0.5 - 1.4 03/10 NA [facility] BUN/Creat Ratio 56 15 - 24 03/10 H [facility] Osmolality, Calculated 290 mOsm/L 275 - 295 03/10 NA [facility] Calcium Level 8.6 mg/dL 8.9 - 10.3 03/10 L [facility] eGFR 72 mL/min/1.7 3m2 03/10 NA This eGFR equation utilizes the 2020 CKD-EPI creatinine equation.Stag es GFRNone or slight 1 >90 ml/minMild 2 60-89 ml/minModerat e 3 30-59 ml/minSevere 4 15-29 ml/minApproac jenny Failure 5 <15 ml/min [facility] BMP Sex assigned at Male 03/10 NA [facility] CBC WBC 25.80 K/mm3 4.50 - 11.00 03/10 H [facility] CBC RBC 3.56 M/mm3 4.50 - 5.90 03/10 L [facility] CBC HGB 10.9 gm/dL 13.5 - 17.5 03/10 L [facility] CBC HCT 32.1 % 37.0 - 49.0 03/10 L [facility] CBC MCV 90.3 fL 80.0 - 99.0 03/10 NA [facility] CBC MCH 30.6 pg 26.0 - 34.0 03/10 NA [facility] CBC MCHC 33.9 gm/dL 32.5 - 35.5 03/10 [facility] CBC RDW 14.4 % 11.5 - 14.5 03/10 NA [facility] CBC PLT 120 K/mm3 150 - 400 03/10 L [facility] CBC MPV 11.5 fL 7.4 - 10.4 03/10 H [facility] CBC Sex assigned at Male 03/10 NA [facility] Liver ALP 72 IntUnit/L 30 - 114 03/10 NA [facility] Liver ALT 29 IntUnit/L 14 - 63 03/10 NA [facility] Liver AST 20 IntUnit/L 15 - 41 03/10 NA [facility] Liver Bilirubin, Total 1.3 mg/dL 0.0 - 1.2 03/10 H P-psydtm-a-be nzoquinone imine (NAPQI), a metabolite of acetaminophen (paracetamol) , may generate erroneously low results in samples for patients that have taken toxic doses of acetaminophen (paracetamol) [facility] Liver Bilirubin, Direct 0.3 mg/dL 0.0 - 0.5 03/10 NA P-bpdygk-a-be nzoquinone imine (NAPQI), a metabolite of acetaminophen (paracetamol) , may generate erroneously low results in samples for patients that have taken toxic doses of acetaminophen (paracetamol) [facility] Liver Bilirubin, Indirect (Calc) 1.0 mg/dL 03/10 [facility] Liver Total Protein 6.2 gm/dL 6.5 - 8.1 03/10 L [facility] Liver Albumin Level 2.9 gm/dL 3.5 - 5.0 03/10 L [facility] Liver Globulin Level 3.3 gm/dL 2.6 - 4.0 03/10 [facility] Liver A/G Ratio 0.9 1.5 - 3.0 03/10 L [facility] Liver Sex assigned at Male 03/10 [facility] Mg Magnesium Level 2.2 mg/dL 1.8 - 2.4 03/10 NA [facility] Mg Sex assigned at Male 03/10 [facility] Phos Phosphorus Level 1.9 mg/dL 2.5 - 4.9 03/10 L [facility] Phos Sex assigned at Male 03/10 NA [facility] PTT PTT - Patient 27.7 sec 23.0 - 36.0 03/10 NA [facility] PTT Sex assigned at Male 03/10 NA [facility] PTT PTT - Patient 26.8 sec 23.0 - 36.0 03/10 NA [facility] PTT Sex assigned at Male 03/10 NA [facility] PTT PTT - Patient 28.5 sec 23.0 - 36.0 03/09 NA [facility] PTT Sex assigned at Male 03/09 NA [facility] PTT PTT - Patient 28.2 sec 23.0 - 36.0 03/09 NA [facility] PTT Sex assigned at Male 03/09 NA [facility] AutoDiff* Auto Neutrophil Percent 89.7 % 46.0 - 78.0 03/09 H [facility] AutoDiff* Auto Neutrophil Absolute 27.2 K/mm3 1.4 - 7.2 03/09 H [facility] AutoDiff* Auto Lymphocyte Percent 2.6 % 9.0 - 42.0 03/09 [facility] AutoDiff* Auto Lymphocyte Absolute 0.8 K/mm3 0.8 - 4.4 03/09 [facility] AutoDiff* Auto Monocyte Percent 6.9 % 0.0 - 10.0 03/09 [facility] AutoDiff* Auto Monocyte Absolute 2.1 K/mm3 0.2 - 1.6 03/09 H [facility] AutoDiff* Auto Eosinophil Percent 0.6 % 0.0 - 7.0 03/09 [facility] AutoDiff* Auto Eosinophil Absolute 0.2 K/mm3 0.0 - 0.7 03/09 [facility] AutoDiff* Auto Basophil Percent 0.2 % 0.0 - 3.0 03/09 [facility] AutoDiff* Auto Basophil Absolute 0.1 K/mm3 0.0 - 0.2 03/09 NA [facility] AutoDiff* Sex assigned at Male 03/09 NA [facility] BMP Sodium Level 131 mmol/L 136 - 144 03/09 L [facility] BMP Potassium Level 4.1 mmol/L 3.5 - 5.2 03/09 NA [facility] Chloride Level 98 mmol/L 101 - 111 03/09 L [facility] BMP CO2/Carbon Dioxide 29 mmol/L 22 - 32 03/09 NA [facility] Anion Gap 4 mmol/L 5 - 15 03/09 L [facility] BMP Glucose, Random 157 mg/dL 70 - 110 03/09 H [facility] BMP BUN 72 mg/dL 7 - 29 03/09 H [facility] BMP Creatinine 1.4 mg/dL 0.5 - 1.4 03/09 [facility] BUN/Creat Ratio 51 15 - 24 03/09 H [facility] Osmolality, Calculated 287 mOsm/L 275 - 295 03/09 NA [facility] Calcium Level 8.1 mg/dL 8.9 - 10.3 03/09 L [facility] eGFR 50 mL/min/1.7 3m2 03/09 NA This eGFR equation utilizes the 2020 CKD-EPI creatinine equation.Stag es GFRNone or slight 1 >90 ml/minMild 2 60-89 ml/minModerat e 3 30-59 ml/minSevere 4 15-29 ml/minApproac jenny Failure 5 <15 ml/min [facility] BMP Sex assigned at Male 03/09 NA [facility] CBC WBC 30.30 K/mm3 4.50 - 11.00 03/09 H [facility] CBC RBC 3.17 M/mm3 4.50 - 5.90 03/09 L [facility] CBC HGB 9.6 gm/dL 13.5 - 17.5 03/09 L [facility] CBC HCT 29.2 % 37.0 - 49.0 03/09 L [facility] CBC MCV 91.9 fL 80.0 - 99.0 03/09 NA [facility] CBC MCH 30.2 pg 26.0 - 34.0 03/09 NA [facility] CBC MCHC 32.9 gm/dL 32.5 - 35.5 03/09 NA [facility] CBC RDW 14.0 % 11.5 - 14.5 03/09 NA [facility] CBC PLT 123 K/mm3 150 - 400 03/09 L [facility] CBC MPV 11.3 fL 7.4 - 10.4 03/09 H [facility] CBC Sex assigned at Male 03/09 [facility] Liver ALP 55 IntUnit/L 30 - 114 03/09 [facility] Liver ALT 19 IntUnit/L 14 - 63 03/09 NA [facility] Liver AST 17 IntUnit/L 15 - 41 03/09 [facility] Liver Bilirubin, Total 1.9 mg/dL 0.0 - 1.2 03/09 H K-mqnxlg-y-be nzoquinone imine (NAPQI), a metabolite of acetaminophen (paracetamol) , may generate erroneously low results in samples for patients that have taken toxic doses of acetaminophen (paracetamol) [facility] Liver Bilirubin, Direct 0.6 mg/dL 0.0 - 0.5 03/09 H S-yqsrec-j-be nzoquinone imine (NAPQI), a metabolite of acetaminophen (paracetamol) , may generate erroneously low results in samples for patients that have taken toxic doses of acetaminophen (paracetamol) [facility] Liver Bilirubin, Indirect (Calc) 1.3 mg/dL 03/09 [facility] Liver Total Protein 5.8 gm/dL 6.5 - 8.1 03/09 L [facility] Liver Albumin Level 2.8 gm/dL 3.5 - 5.0 03/09 L [facility] Liver Globulin Level 3.0 gm/dL 2.6 - 4.0 03/09 NA [facility] Liver A/G Ratio 0.9 1.5 - 3.0 03/09 L [facility] Liver Sex assigned at Male 03/09 NA [facility] Mg Magnesium Level 2.0 mg/dL 1.8 - 2.4 03/09 NA [facility] Mg Sex assigned at Male 03/09 NA [facility] Phos Phosphorus Level 2.3 mg/dL 2.5 - 4.9 03/09 L [facility] Phos Sex assigned at Male 03/09 NA [facility] PTT PTT - Patient 34.2 sec 23.0 - 36.0 03/09 NA [facility] PTT Sex assigned at Male 03/09 NA [facility] PTT PTT - Patient 29.7 sec 23.0 - 36.0 03/09 NA [facility] PTT Sex assigned at Male 03/09 NA [facility] PTT PTT - Patient 39.6 sec 23.0 - 36.0 03/08 H [facility] PTT Sex assigned at Male 03/08 NA [facility] PTT PTT - Patient 41.8 sec 23.0 - 36.0 03/08 H [facility] PTT Sex assigned at Male 03/08 NA [facility] PTT PTT - Patient 60.3 sec 23.0 - 36.0 03/08 H [facility] PTT Sex assigned at Male 03/08 NA [facility] AutoDiff* Auto Neutrophil Percent 90.4 % 46.0 - 78.0 03/08 H [facility] AutoDiff* Auto Neutrophil Absolute 21.7 K/mm3 1.4 - 7.2 03/08 H [facility] AutoDiff* Auto Lymphocyte Percent 2.4 % 9.0 - 42.0 03/08 L [facility] AutoDiff* Auto Lymphocyte Absolute 0.6 K/mm3 0.8 - 4.4 03/08 L [facility] AutoDiff* Auto Monocyte Percent 6.5 % 0.0 - 10.0 03/08 [facility] AutoDiff* Auto Monocyte Absolute 1.6 K/mm3 0.2 - 1.6 03/08 [facility] AutoDiff* Auto Eosinophil Percent 0.4 % 0.0 - 7.0 03/08 [facility] AutoDiff* Auto Eosinophil Absolute 0.1 K/mm3 0.0 - 0.7 03/08 [facility] AutoDiff* Auto Basophil Percent 0.3 % 0.0 - 3.0 03/08 [facility] AutoDiff* Auto Basophil Absolute 0.1 K/mm3 0.0 - 0.2 03/08 [facility] AutoDiff* Auto NRBC % 0.1 % 03/08 [facility] AutoDiff* Sex assigned at Male 03/08 [facility] BMP Sodium Level 136 mmol/L 136 - 144 03/08 [facility] BMP Potassium Level 4.0 mmol/L 3.5 - 5.2 03/08 [facility] BMP Chloride Level 100 mmol/L 101 - 111 03/08 L [facility] BMP CO2/Carbon Dioxide 29 mmol/L 22 - 32 03/08 [facility] BMP Anion Gap 7 mmol/L 5 - 15 03/08 [facility] BMP Glucose, Random 175 mg/dL 70 - 110 03/08 [facility] BMP BUN 58 mg/dL 7 - 29 03/08 [facility] BMP Creatinine 1.2 mg/dL 0.5 - 1.4 03/08 [facility] BMP BUN/Creat Ratio 48 15 - 24 03/08 [facility] BMP Osmolality, Calculated 292 mOsm/L 275 - 295 03/08 [facility] BMP Calcium Level 8.6 mg/dL 8.9 - 10.3 03/08 L [facility] BMP Sex assigned at Male 03/08 [facility] BMP eGFR 65 mL/min/1.7 3m2 03/08 NA This eGFR equation utilizes the 2020 CKD-EPI creatinine equation.Stag es GFRNone or slight 1 >90 ml/minMild 2 60-89 ml/minModerat e 3 30-59 ml/minSevere 4 15-29 ml/minApproac jenny Failure 5 <15 ml/min [facility] CBC WBC 24.00 K/mm3 4.50 - 11.00 03/08 H [facility] CBC RBC 3.42 M/mm3 4.50 - 5.90 03/08 L [facility] CBC HGB 10.3 gm/dL 13.5 - 17.5 03/08 L [facility] CBC HCT 31.3 % 37.0 - 49.0 03/08 [facility] CBC MCV 91.4 fL 80.0 - 99.0 03/08 [facility] CBC MCH 30.1 pg 26.0 - 34.0 03/08 [facility] CBC MCHC 33.0 gm/dL 32.5 - 35.5 03/08 [facility] CBC RDW 14.6 % 11.5 - 14.5 03/08 H [facility] CBC PLT 169 K/mm3 150 - 400 03/08 [facility] CBC MPV 11.7 fL 7.4 - 10.4 03/08 [facility] CBC Sex assigned at Male 03/08 NA [facility] Liver ALP 50 IntUnit/L 30 - 114 03/08 [facility] Liver ALT 17 IntUnit/L 14 - 63 03/08 [facility] Liver AST 16 IntUnit/L 15 - 41 03/08 [facility] Liver Bilirubin, Total 1.6 mg/dL 0.0 - 1.2 03/08 H G-neezpx-n-be nzoquinone imine (NAPQI), a metabolite of acetaminophen (paracetamol) , may generate erroneously low results in samples for patients that have taken toxic doses of acetaminophen (paracetamol) [facility] Liver Bilirubin, Direct 0.5 mg/dL 0.0 - 0.5 03/08 NA G-tcnwks-d-be nzoquinone imine (NAPQI), a metabolite of acetaminophen (paracetamol) , may generate erroneously low results in samples for patients that have taken toxic doses of acetaminophen (paracetamol) [facility] Liver Bilirubin, Indirect (Calc) 1.1 mg/dL 03/08 NA [facility] Liver Total Protein 6.6 gm/dL 6.5 - 8.1 03/08 NA [facility] Liver Albumin Level 3.4 gm/dL 3.5 - 5.0 03/08 L [facility] Liver Globulin Level 3.2 gm/dL 2.6 - 4.0 03/08 NA [facility] Liver A/G Ratio 1.1 1.5 - 3.0 03/08 L [facility] Liver Sex assigned at Male 03/08 [facility] Mg Magnesium Level 2.3 mg/dL 1.8 - 2.4 03/08 [facility] Mg Sex assigned at Male 03/08 [facility] Phos Phosphorus Level 2.9 mg/dL 2.5 - 4.9 03/08 NA [facility] Phos Sex assigned at Male 03/08 NA [facility] PTT PTT - Patient 41.0 sec 23.0 - 36.0 03/08 H [facility] PTT Sex assigned at Male 03/08 [facility] PTT PTT - Patient 52.0 sec 23.0 - 36.0 03/08 H [facility] PTT Sex assigned at Male 03/08 [facility] PTT PTT - Patient 38.2 sec 23.0 - 36.0 03/08 H [facility] PTT Sex assigned at Male 03/08 [facility] AutoDiff* Auto Neutrophil Percent 89.7 % 46.0 - 78.0 03/07 [facility] AutoDiff* Auto Neutrophil Absolute 23.5 K/mm3 1.4 - 7.2 03/07 [facility] AutoDiff* Auto Lymphocyte Percent 2.4 % 9.0 - 42.0 03/07 [facility] AutoDiff* Auto Lymphocyte Absolute 0.6 K/mm3 0.8 - 4.4 03/07 [facility] AutoDiff* Auto Monocyte Percent 7.0 % 0.0 - 10.0 03/07 [facility] AutoDiff* Auto Monocyte Absolute 1.8 K/mm3 0.2 - 1.6 03/07 [facility] AutoDiff* Auto Eosinophil Percent 0.4 % 0.0 - 7.0 03/07 [facility] AutoDiff* Auto Eosinophil Absolute 0.1 K/mm3 0.0 - 0.7 03/07 [facility] AutoDiff* Auto Basophil Percent 0.5 % 0.0 - 3.0 03/07 [facility] AutoDiff* Auto Basophil Absolute 0.1 K/mm3 0.0 - 0.2 03/07 [facility] AutoDiff* Auto NRBC % 0.1 % 03/07 [facility] AutoDiff* Sex assigned at Male 03/07 [facility] CBC WBC 26.20 K/mm3 4.50 - 11.00 03/07 [facility] CBC RBC 3.69 M/mm3 4.50 - 5.90 03/07 [facility] CBC HGB 11.2 gm/dL 13.5 - 17.5 03/07 [facility] CBC HCT 34.4 % 37.0 - 49.0 03/07 [facility] CBC MCV 93.0 fL 80.0 - 99.0 03/07 [facility] CBC MCH 30.3 pg 26.0 - 34.0 03/07 [facility] CBC MCHC 32.6 gm/dL 32.5 - 35.5 03/07 [facility] CBC RDW 14.5 % 11.5 - 14.5 03/07 [facility] CBC PLT 197 K/mm3 150 - 400 03/07 [facility] CBC MPV 10.8 fL 7.4 - 10.4 03/07 H [facility] CBC Sex assigned at Male 03/07 [facility] PT PT - Patient 14.8 sec 11.6 - 14.2 03/07 H [facility] PT PT - INR 1.2 0.9 - 1.1 03/07 H Recommended Therapeutic Range for Oral Anticoagulant Theraphy (Yenni, et al, CHEST, 119/1., Feb 2000)Indicati ons INRProphylaxi s/Treatment ofThromboembo lic Disorders ............. ......... 2.0 - 3.0Prevention of Systemic Embolism ............. .. 2.0 - 3.0 Tissue Heart Valves Valvular Heart Diseases Atrial FibrillationM echanical Heart Valves (High Risk) ............. ............. ... 2.5 - 3.5 [facility] PT Sex assigned at Male 03/07 [facility] PTT PTT - Patient 25.8 sec 23.0 - 36.0 03/07 [facility] PTT Sex assigned at Male 03/07 [facility] AutoDiff* Auto Neutrophil Percent 89.6 % 46.0 - 78.0 03/07 H [facility] AutoDiff* Auto Neutrophil Absolute 25.1 K/mm3 1.4 - 7.2 03/07 H [facility] AutoDiff* Auto Lymphocyte Percent 2.3 % 9.0 - 42.0 03/07 L [facility] AutoDiff* Auto Lymphocyte Absolute 0.6 K/mm3 0.8 - 4.4 01/26 /2023 L [facility] AutoDiff* Auto Monocyte Percent 7.9 % 0.0 - 10.0 03/07 [facility] AutoDiff* Auto Monocyte Absolute 2.2 K/mm3 0.2 - 1.6 03/07 H [facility] AutoDiff* Auto Eosinophil Percent 0.1 % 0.0 - 7.0 03/07 [facility] AutoDiff* Auto Eosinophil Absolute 0.0 K/mm3 0.0 - 0.7 03/07 [facility] AutoDiff* Auto Basophil Percent 0.1 % 0.0 - 3.0 03/07 [facility] AutoDiff* Auto Basophil Absolute 0.0 K/mm3 0.0 - 0.2 03/07 [facility] AutoDiff* Sex assigned at Male 03/07 [facility] BMP Sodium Level 139 mmol/L 136 - 144 03/07 [facility] BMP Potassium Level 4.0 mmol/L 3.5 - 5.2 03/07 [facility] BMP Chloride Level 101 mmol/L 101 - 111 03/07 [facility] BMP CO2/Carbon Dioxide 29 mmol/L 22 - 32 03/07 [facility] BMP Anion Gap 9 mmol/L 5 - 15 03/07 [facility] BMP Glucose, Random 158 mg/dL 70 - 110 03/07 [facility] BMP BUN 47 mg/dL 7 - 29 03/07 [facility] BMP Creatinine 1.4 mg/dL 0.5 - 1.4 03/07 [facility] BMP BUN/Creat Ratio 34 15 - 24 03/07 [facility] BMP Osmolality, Calculated 293 mOsm/L 275 - 295 03/07 [facility] BMP Calcium Level 8.9 mg/dL 8.9 - 10.3 03/07 [facility] BMP eGFR 54 mL/min/1.7 3m2 03/07 NA This eGFR equation utilizes the 2020 CKD-EPI creatinine equation.Stag es GFRNone or slight 1 >90 ml/minMild 2 60-89 ml/minModerat e 3 30-59 ml/minSevere 4 15-29 ml/minApproac jenny Failure 5 <15 ml/min [facility] BMP Sex assigned at Male 03/07 [facility] CBC WBC 28.00 K/mm3 4.50 - 11.00 03/07 H [facility] CBC RBC 3.74 M/mm3 4.50 - 5.90 03/07 L [facility] CBC HGB 11.3 gm/dL 13.5 - 17.5 03/07 L [facility] CBC HCT 34.6 % 37.0 - 49.0 03/07 L [facility] CBC MCV 92.6 fL 80.0 - 99.0 03/07 NA [facility] CBC MCH 30.3 pg 26.0 - 34.0 03/07 [facility] CBC MCHC 32.7 gm/dL 32.5 - 35.5 03/07 [facility] CBC RDW 14.6 % 11.5 - 14.5 03/07 H [facility] CBC PLT 194 K/mm3 150 - 400 03/07 [facility] CBC MPV 10.6 fL 7.4 - 10.4 03/07 H [facility] CBC Manual Diff Y/N Man Diff 03/07 [facility] CBC Sex assigned at Male 03/07 [facility] Liver ALP 51 IntUnit/L 30 - 114 03/07 [facility] Liver ALT 18 IntUnit/L 14 - 63 03/07 [facility] Liver AST 23 IntUnit/L 15 - 41 03/07 [facility] Liver Bilirubin, Total 1.3 mg/dL 0.0 - 1.2 03/07 H D-fumirk-w-be nzoquinone imine (NAPQI), a metabolite of acetaminophen (paracetamol) , may generate erroneously low results in samples for patients that have taken toxic doses of acetaminophen (paracetamol) [facility] Liver Bilirubin, Direct 0.5 mg/dL 0.0 - 0.5 03/07 NA N-rknpeh-z-be nzoquinone imine (NAPQI), a metabolite of acetaminophen (paracetamol) , may generate erroneously low results in samples for patients that have taken toxic doses of acetaminophen (paracetamol) [facility] Liver Bilirubin, Indirect (Calc) 0.8 mg/dL 03/07 NA [facility] Liver Total Protein 6.6 gm/dL 6.5 - 8.1 03/07 NA [facility] Liver Albumin Level 3.4 gm/dL 3.5 - 5.0 03/07 L [facility] Liver Globulin Level 3.2 gm/dL 2.6 - 4.0 03/07 NA [facility] Liver A/G Ratio 1.1 1.5 - 3.0 03/07 L [facility] Liver Sex assigned at Male 03/07 NA [facility] MDiff Bands % 8 % 0 - 4 03/07 H [facility] MDiff Absolute Bands Count 2.2 K/mm3 03/07 [facility] MDiff Manual Neutrophil Percent 80 % 46 - 78 03/07 H [facility] MDiff Manual Neutrophil Absolute 24.6 K/mm3 1.4 - 7.2 03/07 H [facility] MDiff Manual Lymphocyte Percent 2 % 9 - 42 03/07 [facility] MDiff Manual Lymphocyte Absolute 0.6 K/mm3 0.8 - 4.4 03/07 L [facility] MDiff Manual Monocyte Percent 10 % 0 - 10 03/07 [facility] MDiff Manual Monocyte Absolute 2.8 K/mm3 0.2 - 1.6 03/07 H [facility] MDiff RBC Morphology Normal Normal 03/07 NA [facility] MDiff Anisocytosis 1+ None 03/07 * [facility] MDiff PLT Estimate Normal Normal 03/07 [facility] MDbruna Platelet Clumps None None 03/07 [facility] MDiff Sex assigned at Male 03/07 [facility] [facility] Magnesium Level 1.9 mg/dL 1.8 - 2.4 03/07 [facility] Mg Sex assigned at Male 03/07 [facility] Phos Phosphorus Level 4.2 mg/dL 2.5 - 4.9 03/07 [facility] Phos Sex assigned at Male 03/07 [facility] AutoDiff* Auto Neutrophil Percent 92.9 % 46.0 - 78.0 03/06 [facility] AutoDiff* Auto Neutrophil Absolute 18.4 K/mm3 1.4 - 7.2 03/06 [facility] AutoDiff* Auto Lymphocyte Percent 1.8 % 9.0 - 42.0 03/06 [facility] AutoDiff* Auto Lymphocyte Absolute 0.4 K/mm3 0.8 - 4.4 03/06 [facility] AutoDiff* Auto Monocyte Percent 5.1 % 0.0 - 10.0 03/06 [facility] AutoDiff* Auto Monocyte Absolute 1.0 K/mm3 0.2 - 1.6 03/06 [facility] AutoDiff* Auto Eosinophil Percent 0.0 % 0.0 - 7.0 03/06 [facility] AutoDiff* Auto Eosinophil Absolute 0.0 K/mm3 0.0 - 0.7 03/06 [facility] AutoDiff* Auto Basophil Percent 0.2 % 0.0 - 3.0 03/06 [facility] AutoDiff* Auto Basophil Absolute 0.0 K/mm3 0.0 - 0.2 03/06 [facility] AutoDiff* Sex assigned at Male 03/06 [facility] BMP Sodium Level 137 mmol/L 136 - 144 03/06 [facility] BMP Potassium Level 4.2 mmol/L 3.5 - 5.2 03/06 NA [facility] Chloride Level 99 mmol/L 101 - 111 03/06 L [facility] CO2/Carbon Dioxide 27 mmol/L 22 - 32 03/06 NA [facility] Anion Gap 11 mmol/L 5 - 15 03/06 NA [facility] Glucose, Random 192 mg/dL 70 - 110 03/06 H [facility] BMP BUN 25 mg/dL 7 - 29 03/06 NA [facility] BMP Creatinine 1.2 mg/dL 0.5 - 1.4 03/06 [facility] BUN/Creat Ratio 21 15 - 24 03/06 [facility] Osmolality, Calculated 283 mOsm/L 275 - 295 03/06 NA [facility] Calcium Level 9.0 mg/dL 8.9 - 10.3 03/06 NA [facility] BMP eGFR 66 mL/min/1.7 3m2 03/06 NA This eGFR equation utilizes the 2020 CKD-EPI creatinine equation.Stag es GFRNone or slight 1 >90 ml/minMild 2 60-89 ml/minModerat e 3 30-59 ml/minSevere 4 15-29 ml/minApproac jenny Failure 5 <15 ml/min [facility] BMP Sex assigned at Male 03/06 [facility] CBC WBC 19.80 K/mm3 4.50 - 11.00 03/06 H [facility] CBC RBC 4.12 M/mm3 4.50 - 5.90 03/06 L [facility] CBC HGB 12.4 gm/dL 13.5 - 17.5 03/06 [facility] CBC HCT 38.4 % 37.0 - 49.0 03/06 [facility] CBC MCV 93.1 fL 80.0 - 99.0 03/06 [facility] CBC MCH 30.0 pg 26.0 - 34.0 03/06 NA [facility] CBC MCHC 32.2 gm/dL 32.5 - 35.5 03/06 L [facility] CBC RDW 14.4 % 11.5 - 14.5 03/06 NA [facility] CBC PLT 227 K/mm3 150 - 400 03/06 NA [facility] CBC MPV 10.0 fL 7.4 - 10.4 03/06 NA [facility] CBC Sex assigned at Male 03/06 NA [facility] LipidP Total Cholesterol 130 mg/dL 90 - 200 03/06 NA Venipuncture immediately after or during the administratio n of Metamizole (Dipyrone) may lead to falsely low results for Chol. Venipuncture should be performed prior to the administratio n of Metamizole. [facility] LipidP Triglyceride s 56 mg/dL 42 - 197 03/06 NA H-gskbrf-c-be nzoquinone imine (NAPQI), a metabolite of acetaminophen (paracetamol) , may generate erroneously low results in samples for patients that have taken toxic doses of acetaminophen (paracetamol) [facility] LipidP HDL Cholesterol 50 mg/dL 35 - 60 03/06 NA Venipuncture immediately after or during the administratio n of Metamizole (Dipyrone) may lead to falsely low results for HDL. Venipuncture should be performed prior to the administratio n of Metamizole. [facility] LipidP LDL Cholesterol, Calc 69 mg/dL - <=130 03/06 NA [facility] LipidP Total Chol/HDL Ratio 3 03/06 NA NOTE: Reference ranges reflect current 2004 recommendatio ns of the National Cholesterol Educational Program.See Interpretatio n Below: Men Women 3.4 1/2 average risk 3.3 5.0 average risk 4.4 9.6 2X average risk 7.1 24.0 3X average risk 11.1 [facility] LipidP LDL/HDL Ratio 1.4 03/06 NA [facility] LipidP VLDL Cholesterol, Calc 11 mg/dL 14 - 35 03/06 L [facility] LipidP Sex assigned at Male 03/06 [facility] Liver ALP 63 IntUnit/L 30 - 114 03/06 [facility] Liver ALT 16 IntUnit/L 14 - 63 03/06 [facility] Liver AST 23 IntUnit/L 15 - 41 03/06 [facility] Liver Bilirubin, Total 0.8 mg/dL 0.0 - 1.2 03/06 NA E-yxnezx-y-be nzoquinone imine (NAPQI), a metabolite of acetaminophen (paracetamol) , may generate erroneously low results in samples for patients that have taken toxic doses of acetaminophen (paracetamol) [facility] Liver Bilirubin, Direct 0.2 mg/dL 0.0 - 0.5 03/06 NA D-loggum-i-be nzoquinone imine (NAPQI), a metabolite of acetaminophen (paracetamol) , may generate erroneously low results in samples for patients that have taken toxic doses of acetaminophen (paracetamol) [facility] Liver Bilirubin, Indirect (Calc) 0.6 mg/dL 03/06 [facility] Liver Total Protein 7.2 gm/dL 6.5 - 8.1 03/06 [facility] Liver Albumin Level 3.8 gm/dL 3.5 - 5.0 03/06 [facility] Liver Globulin Level 3.4 gm/dL 2.6 - 4.0 03/06 [facility] Liver A/G Ratio 1.1 1.5 - 3.0 03/06 L [facility] Liver Sex assigned at Male 03/06 [facility] Mg Magnesium Level 2.0 mg/dL 1.8 - 2.4 03/06 [facility] Mg Sex assigned at Male 03/06 [facility] Phos Phosphorus Level 4.7 mg/dL 2.5 - 4.9 03/06 [facility] Phos Sex assigned at Male 03/06 [facility] [id number] Hemoglobin A1C by HPLC 6.1 % 4.5 - 5.6 03/05 H [facility] [id number] Calculated Mean Blood Glucose 140 mg/dL 03/05 [facility] [id number] Sex assigned at Male 03/05 [facility] ABORh ABO/Rh Type O Pos 03/05 NA [facility] ABORh Sex assigned at Male 03/05 [facility] ABSC 3 Antibody Screen Negative ABSC 03/05 NA [facility] ABSC 3 Sex assigned at Male 03/05 [facility] AutoDiff* Auto Neutrophil Percent 80.2 % 46.0 - 78.0 03/05 H [facility] AutoDiff* Auto Neutrophil Absolute 10.2 K/mm3 1.4 - 7.2 03/05 H [facility] AutoDiff* Auto Lymphocyte Percent 7.3 % 9.0 - 42.0 03/05 L [facility] AutoDiff* Auto Lymphocyte Absolute 0.9 K/mm3 0.8 - 4.4 03/05 [facility] AutoDiff* Auto Monocyte Percent 11.7 % 0.0 - 10.0 03/05 H [facility] AutoDiff* Auto Monocyte Absolute 1.5 K/mm3 0.2 - 1.6 03/05 [facility] AutoDiff* Auto Eosinophil Percent 0.1 % 0.0 - 7.0 03/05 [facility] AutoDiff* Auto Eosinophil Absolute 0.0 K/mm3 0.0 - 0.7 03/05 [facility] AutoDiff* Auto Basophil Percent 0.7 % 0.0 - 3.0 03/05 [facility] AutoDiff* Auto Basophil Absolute 0.1 K/mm3 0.0 - 0.2 03/05 [facility] AutoDiff* Sex assigned at Male 03/05 [facility] BMP Sodium Level 136 mmol/L 136 - 144 03/05 [facility] BMP Potassium Level 3.9 mmol/L 3.5 - 5.2 03/05 NA [facility] Chloride Level 102 mmol/L 101 - 111 03/05 NA [facility] BMP CO2/Carbon Dioxide 26 mmol/L 22 - 32 03/05 NA [facility] Anion Gap 8 mmol/L 5 - 15 03/05 NA [facility] BMP Glucose, Random 129 mg/dL 70 - 110 03/05 H [facility] BMP BUN 13 mg/dL 7 - 29 03/05 NA [facility] BMP Creatinine 0.8 mg/dL 0.5 - 1.4 03/05 NA [facility] BUN/Creat Ratio 16 15 - 24 03/05 NA [facility] Osmolality, Calculated 274 mOsm/L 275 - 295 03/05 L [facility] Calcium Level 8.8 mg/dL 8.9 - 10.3 03/05 L [facility] BMP eGFR 90 mL/min/1.7 3m2 03/05 NA This eGFR equation utilizes the 2020 CKD-EPI creatinine equation.Stag es GFRNone or slight 1 >90 ml/minMild 2 60-89 ml/minModerat e 3 30-59 ml/minSevere 4 15-29 ml/minApproac jenny Failure 5 <15 ml/min [facility] BMP Sex assigned at Male 03/05 NA [facility] CBC WBC 12.70 K/mm3 4.50 - 11.00 03/05 H [facility] CBC RBC 3.84 M/mm3 4.50 - 5.90 03/05 L [facility] CBC HGB 11.6 gm/dL 13.5 - 17.5 03/05 L [facility] CBC HCT 35.6 % 37.0 - 49.0 03/05 L [facility] CBC MCV 92.7 fL 80.0 - 99.0 03/05 NA [facility] CBC MCH 30.3 pg 26.0 - 34.0 03/05 NA [facility] CBC MCHC 32.8 gm/dL 32.5 - 35.5 03/05 [facility] CBC RDW 14.4 % 11.5 - 14.5 03/05 [facility] CBC PLT 246 K/mm3 150 - 400 03/05 [facility] CBC MPV 9.8 fL 7.4 - 10.4 03/05 [facility] CBC Sex assigned at Male 03/05 [facility] Liver ALP 60 IntUnit/L 30 - 114 03/05 [facility] Liver ALT 15 IntUnit/L 14 - 63 03/05 [facility] Liver AST 20 IntUnit/L 15 - 41 03/05 [facility] Liver Bilirubin, Total 0.7 mg/dL 0.0 - 1.2 03/05 NA U-hpocas-y-be nzoquinone imine (NAPQI), a metabolite of acetaminophen (paracetamol) , may generate erroneously low results in samples for patients that have taken toxic doses of acetaminophen (paracetamol) [facility] Liver Bilirubin, Direct 0.2 mg/dL 0.0 - 0.5 03/05 NA V-foaqeb-w-be nzoquinone imine (NAPQI), a metabolite of acetaminophen (paracetamol) , may generate erroneously low results in samples for patients that have taken toxic doses of acetaminophen (paracetamol) [facility] Liver Bilirubin, Indirect (Calc) 0.5 mg/dL 03/05 [facility] Liver Total Protein 6.6 gm/dL 6.5 - 8.1 03/05 [facility] Liver Albumin Level 3.6 gm/dL 3.5 - 5.0 03/05 [facility] Liver Globulin Level 3.0 gm/dL 2.6 - 4.0 03/05 [facility] Liver A/G Ratio 1.2 1.5 - 3.0 03/05 L [facility] Liver Sex assigned at Male 03/05 [facility] Mg Magnesium Level 1.8 mg/dL 1.8 - 2.4 03/05 [facility] Mg Sex assigned at Male 03/05 NA [facility] Phos Phosphorus Level 3.6 mg/dL 2.5 - 4.9 03/05 NA [facility] Phos Sex assigned at Male 03/05 [facility] C MRSA C MRSA Final:No MRSA (Methicill in Resistant Staph Aureus) recovered Performed at [address] [address] [place] Laborer: Dana Moctezuma assigned at :Male 03/05 [id number]: Order placed because patient was transfered to an ICU area. [facility] COVFLURSV SARS-CoV-2 Source Eric miller 03/05 NA [facility] COVFLURSV Influenza A Agn Molecular NEGATIVE Negative 03/05 NA Assay performed by RT-PCR [facility] COVFLURSV Influenza B Agn Molecular NEGATIVE Negative 03/05 NA Assay performed by RT-PCR [facility] COVFLURSV Respiratory Syncytial Virus Molecular NEGATIVE Negative 03/05 NA Assay performed by RT-PCR [facility] COVFLURSV SARS-CoV-2 Molecular NEGATIVE Negative 03/05 NA Assay performed by RT-PCRThis test was performed under U.S. Food and Drug Administratio n (FDA) Emergency use Authorization (EUA). This test has been validated but the FDAs independent review of this validation is pending. [facility] COVFLURSV SARS-CoV-2 First test? Unknown 03/05 NA [facility] COVFLURSV Health Care Worker? Unknown 03/05 NA [facility] COVFLURSV SARS-CoV-2 Is the Patient Hospitalized ? Unknown 03/05 NA [facility] COVFLURSV SARS-CoV-2 Is the Patient in ICU? Unknown 03/05 NA [facility] COVFLURSV Patient From [facility] Area? Unknown 03/05 NA [facility] COVFLURSV Symptomatic per CDC? Unknown 03/05 NA [facility] COVFLURSV SARS-CoV-2 Is the Patient ? Unknown 03/05 [facility] COVFLURSV Sex assigned at Male 03/05 [facility] RESPPCR2.1 Resp Adenovirus NOT_DETECT Not Detected 03/05 [facility] RESPPCR2.1 Resp Coronavirus 229E NOT_DETECT Not Detected 03/05 [facility] RESPPCR2.1 Resp Coronavirus HKU1 NOT_DETECT Not Detected 03/05 [facility] RESPPCR2.1 Resp Coronavirus NL63 NOT_DETECT Not Detected 03/05 [facility] RESPPCR2.1 Resp Coronavirus OC43 NOT_DETECT Not Detected 03/05 [facility] RESPPCR2.1 Resp Human Metapneumovi demetria NOT_DETECT Not Detected 03/05 [facility] RESPPCR2.1 Resp Human Rhino/Entero NOT_DETECT Not Detected 03/05 [facility] RESPPCR2.1 Resp Influenza A NOT_DETECT Not Detected 03/05 [facility] RESPPCR2.1 Resp Influenza B NOT_DETECT Not Detected 03/05 [facility] RESPPCR2.1 Resp Parainfluenz a virus 1 NOT_DETECT Not Detected 03/05 [facility] RESPPCR2.1 Resp Parainfluenz a virus 2 NOT_DETECT Not Detected 03/05 [facility] RESPPCR2.1 Resp Parainfluenz a virus 3 NOT_DETECT Not Detected 03/05 [facility] RESPPCR2.1 Resp Parainfluenz a virus 4 NOT_DETECT Not Detected 03/05 [facility] RESPPCR2.1 Resp Respiratory Syncytial Virus NOT_DETECT Not Detected 03/05 [facility] RESPPCR2.1 Resp Bordetella parapertussi s NOT_DETECT Not Detected 03/05 [facility] RESPPCR2.1 Resp Bordetella Pertussis NOT_DETECT Not Detected 03/05 [facility] RESPPCR2.1 Resp Chlamydophil a pneumoniae NOT_DETECT Not Detected 03/05 [facility] RESPPCR2.1 Resp Mycoplasma pneumoniae NOT_DETECT Not Detected 03/05 [facility] RESPPCR2.1 SARS-CoV-2 Molecular NOT_DETECT Not Detected 03/05 [facility] RESPPCR2.1 Sex assigned at Male 03/05 [facility] AutoDiff* Auto Neutrophil Percent 82.6 % 46.0 - 78.0 03/05 [facility] AutoDiff* Auto Neutrophil Absolute 10.0 K/mm3 1.4 - 7.2 03/05 [facility] AutoDiff* Auto Lymphocyte Percent 8.8 % 9.0 - 42.0 03/05 [facility] AutoDiff* Auto Lymphocyte Absolute 1.1 K/mm3 0.8 - 4.4 03/05 [facility] AutoDiff* Auto Monocyte Percent 7.4 % 0.0 - 10.0 03/05 [facility] AutoDiff* Auto Monocyte Absolute 0.9 K/mm3 0.2 - 1.6 03/05 [facility] AutoDiff* Auto Eosinophil Percent 0.6 % 0.0 - 7.0 03/05 [facility] AutoDiff* Auto Eosinophil Absolute 0.1 K/mm3 0.0 - 0.7 03/05 [facility] AutoDiff* Auto Basophil Percent 0.6 % 0.0 - 3.0 03/05 [facility] AutoDiff* Auto Basophil Absolute 0.1 K/mm3 0.0 - 0.2 03/05 [facility] AutoDiff* Auto NRBC % 0.1 % 03/05 [facility] AutoDiff* Sex assigned at Male 03/05 [facility] CBC WBC 12.10 K/mm3 4.50 - 11.00 03/05 [facility] CBC RBC 4.27 M/mm3 4.50 - 5.90 03/05 [facility] CBC HGB 13.4 gm/dL 13.5 - 17.5 03/05 L [facility] CBC HCT 39.3 % 37.0 - 49.0 03/05 NA [facility] CBC MCV 92.2 fL 80.0 - 99.0 03/05 NA [facility] CBC MCH 31.3 pg 26.0 - 34.0 03/05 NA [facility] CBC MCHC 34.0 gm/dL 32.5 - 35.5 03/05 NA [facility] CBC RDW 14.3 % 11.5 - 14.5 03/05 NA [facility] CBC PLT 264 K/mm3 150 - 400 03/05 NA [facility] CBC MPV 10.0 fL 7.4 - 10.4 03/05 NA [facility] CBC Sex assigned at Male 03/05 NA [facility] CMP Sodium Level 135 mmol/L 136 - 144 03/05 L [facility] CMP Potassium Level 3.9 mmol/L 3.5 - 5.2 03/05 [facility] CMP Chloride Level 99 mmol/L 101 - 111 03/05 L [facility] CMP CO2/Carbon Dioxide 21 mmol/L 22 - 32 03/05 L [facility] CMP Anion Gap 15 mmol/L 5 - 15 03/05 [facility] CMP Glucose, Random 229 mg/dL 70 - 110 03/05 H [facility] CMP BUN 13 mg/dL 7 - 29 03/05 [facility] CMP Creatinine 1.3 mg/dL 0.5 - 1.4 03/05 [facility] CMP BUN/Creat Ratio 10 15 - 24 03/05 L [facility] CMP Osmolality, Calculated 277 mOsm/L 275 - 295 03/05 NA [facility] CMP Calcium Level 9.0 mg/dL 8.9 - 10.3 03/05 [facility] CMP Total Protein 7.3 gm/dL 6.5 - 8.1 03/05 NA [facility] Albumin Level 3.8 gm/dL 3.5 - 5.0 03/05 [facility] Globulin Level 3.5 gm/dL 2.6 - 4.0 03/05 [facility] A/G Ratio 1.1 1.5 - 3.0 03/05 L [facility] ALP 63 IntUnit/L 30 - 114 03/05 NA [facility] ALT 15 IntUnit/L 14 - 63 03/05 [facility] AST 25 IntUnit/L 15 - 41 03/05 [facility] Bilirubin, Total 0.4 mg/dL 0.0 - 1.2 03/05 NA E-zcuyug-m-be nzoquinone imine (NAPQI), a metabolite of acetaminophen (paracetamol) , may generate erroneously low results in samples for patients that have taken toxic doses of acetaminophen (paracetamol) [facility] eGFR 55 mL/min/1.7 3m2 03/05 NA This eGFR equation utilizes the 2020 CKD-EPI creatinine equation.Stag es GFRNone or slight 1 >90 ml/minMild 2 60-89 ml/minModerat e 3 30-59 ml/minSevere 4 15-29 ml/minApproac jenny Failure 5 <15 ml/min [facility] Sex assigned at Male 03/05 [facility] PT PT - Patient 14.2 sec 11.6 - 14.2 03/05 [facility] PT PT - INR 1.2 0.9 - 1.1 03/05 H Recommended Therapeutic Range for Oral Anticoagulant Theraphy (Yenni, et al, CHEST, 119/1., Feb 2000)Indicati ons INRProphylaxi s/Treatment ofThromboembo lic Disorders ............. ......... 2.0 - 3.0Prevention of Systemic Embolism ............. .. 2.0 - 3.0 Tissue Heart Valves Valvular Heart Diseases Atrial FibrillationM echanical Heart Valves (High Risk) ............. ............. ... 2.5 - 3.5 [facility] PT Sex assigned at Male 03/05 NA [facility] PTT PTT - Patient 26.5 sec 23.0 - 36.0 03/05 NA [facility] PTT Sex assigned at Male 03/05 NA [facility] Trop Troponin I 0.02 ng/mL 0.00 - 0.05 03/05 NA A Troponin value of 0.06 ng/mL or greater is consistent with myocardial injury. Interpretatio n requires correlation with other clinical findings.Gupta ging values are more significant than a single elevated value in the diagnosis of acute ischemic necrosis. [facility] Trop Sex assigned at Male 03/05 NA [facility] TSH3 Rflx TSH Thyroid Stim Hormone 3RD Generation 2.56 uInt Unit/mL 0.45 - 5.33 03/05 NA Reference Ranges:[facility] l Population (males and non- females): 0.45 - 5.33 Females, 1st Trimester: 0.05 - 3.70 Females, 2nd Trimester: 0.31 - 4.35 Females, 3rd Trimester: 0.41 - 5.18 [facility] TSH3 Rflx Sex assigned at Male 03/05 NA [facility] POC Gluc POCT - Glucose (Capillary) 228 mg/dL 70 - 110 03/05 H Device Code: 50 ER#2Facility: [id number]: H ERSerial Number: [id number] perator Code: Neema rose marie Name: Gloria Landa chetna Lot: [id number] [facility] POC Gluc Sex assigned at Male 03/05 [facility] Diagnostic Reports Report Value Date Source Knee Rt 2 Vw EXAMINATION: Knee Rt 2 Vw CLINICAL HISTORY: Knee pain. COMPARISONS: No priors available for comparison. TECHNIQUE: AP and lateral views of the right knee were obtained. FINDINGS: There is no fracture or joint dislocation. There are mild bicompartmental degenerative changes greatest in the medial and patellofemoral compartments characterized by joint space narrowing and spur formation. There is a moderately sized joint effusion. Vascular calcifications are noted throughout the soft tissues. IMPRESSION: Moderately size joint effusion. Signed by: Sandeep Montiel on 03/28/2022 12:51 PM 03/28/2022 [facility] US Lower Ext Vein Duplex Rt EXAM: Right extremity venous duplex study CLINICAL INDICATION: Swelling COMPARISON: None TECHNIQUE: Venous duplex evaluation performed using 4 MHz transducer. Sagittal and axial saenz scale and color Doppler images, including compression images, obtained of the right common femoral, femoral, popliteal, posterior tibial veins. Spectral wave forms from the segments also recorded. FINDINGS: No DVT IMPRESSION: 1. Normal Signed by: Chapo Lowery on 03/28/2022 6:21 AM 03/28/2022 [facility] Chest 1 Vw EXAMINATION: Chest 1 Vw CLINICAL HISTORY: Shortness of breath. COMPARISONS: Chest radiograph dated 03/21/2022 TECHNIQUE: A single portable AP view of the chest was obtained. FINDINGS: The cardiomediastinal silhouette is mildly enlarged. There is mild pulmonary vascular congestion and perihilar interstitial and airspace opacity. Small bilateral effusions are present. No pneumothorax is seen. The osseous structures are grossly intact. IMPRESSION: Mild CHF. Signed by: Sandeep Montiel on 03/22/2022 10:39 AM 03/22/2022 [facility] MRI Brain W WO Contrast Clinical History convulsions AMS, r/o brain lesion Comparison: CT HEAD on 03/20/2022, 241 images. Technique: Multiplanar multisequence MR imaging of the brain before and after the administration of IV contrast Contrast: Dotarem 18.0 ml SHERRON SURESH, [id number] Findings: The ventricles and sulci are normal in size and configuration. There is no acute infarct or intracerebral hemorrhage. No extra-axial blood or fluid collection is present. 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 Increased T2/FLAIR periventricular signal compatible chronic small vessel ischemia. The brainstem, posterior fossa and cervicomedullary junction are preserved. The orbits, periorbital and pericavernous spaces are normal. The pituitary is unremarkable. No abnormality of the skull base or calvarium is identified. Impression: No intracranial mass is identified. 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 Chronic small vessel ischemia. This report was electronically signed by Lionel Haines MD on 03/21/2022 8:34:04 PM. 03/22/2022 [facility] US Renal EXAMINATION: US Chinyere l CLINICAL HISTORY: Urinary retention. COMPARISONS: No priors available for comparison. TECHNIQUE: Real-time sonography and color-flow imaging of the kidneys was performed and multiple images were obtained. FINDINGS: The right kidney measures 11.2 cm. The left kidney measures 9.7 cm. Both kidneys demonstrate normal echogenicity and contour without hydronephrosis. There are punctate echogenic reflector scattered throughout both kidneys not felt to represent true calculi. Urinary bladder was not imaged. IMPRESSION: No hydronephrosis. Punctate echogenic reflectors throughout both kidneys are not felt to represent true calculi. Correlation with clinical findings and urinalysis is recommended. Signed by: Sandeep Montiel on 03/21/2022 4:09 PM 03/21/2022 [facility] Chest 1 Vw Portable EXAM: Chest 1 Vw Por table CLINICAL INDICATION: Chest pain COMPARISON: Radiograph from the prior day TECHNIQUE: Single portable frontal view of the chest. FINDINGS: Normal cardiomediastinal silhouette. Infiltrates or pulmonary edema is seen No acute abnormality of the bony thorax. IMPRESSION: 1. No change Signed by: Chapo Lowery on 03/21/2022 6:23 AM 03/21/2022 [facility] Chest 1 Vw Portable Clinical History dyspnea Comparison: XR CHEST on 03/15/2022, 1 images. Without Contrast SHERRON SURESH, [id number] FINDINGS: Cardiomediastinal silhouette is unremarkable. Calcifications are present in the aorta. There are small bilateral pleural effusions. There is pulmonary venous congestion with moderate, diffuse interstitial prominence compatible with pulmonary edema. No definite consolidation is identified. There is no acute bony abnormality. IMPRESSION: Bilateral pleural effusions and a moderate interstitial pulmonary edema. This report was electronically signed by Gelacio Crowe MD on 03/20/2022 8:55:36 PM. 03/21/2022 [facility] CT Brain WO Contrast Clinical History altered mental status cva Comparison: CT HEAD on 03/05/2022, 230 images. Technique: All CT scans at this medical facility are performed using dose modulation techniques as appropriate to a performed exam including the following: Automated exposure control was utilized; adjustment of the mA and/or kV according to patient size; and use of iterative reconstruction technique. All CT studies are reported to the Dose Index Registry of the [employer]. Without Contrast Radiation Dose: CTDI (mGy): 52.11; DLP (mGy-cm): 1032.36 SHERRON SURESH, [id number] FINDINGS: Cerebral ventricles are symmetric in morphology. There is no extra-axial collection, midline shift or intracranial hemorrhage . Basal cisterns are not effaced. Visual segments of the orbits are unremarkable. Paranasal sinuses and mastoids are well pneumatized. There is no depressed skull fracture. IMPRESSION: Negative for an acute intracranial process by noncontrast CT. Should symptoms persist MRI follow-up is recommended for more sensitive evaluation. This report was electronically signed by Ari Willard MD on 03/20/2022 7:14:35 PM. The above findings were reported to Nurse Gary Park The call was initiated at 03/20/2022 7:15:08 PM. 03/21/2022 [facility] 1 Vw Clinical History sob Comparison: XR CHEST on 03/10/2022, 2 images. Technique: 2 frontal views of the chest Without Contrast SHERRON SURESH, [id number] FINDINGS: Trachea is midline. Heart is enlarged, cardiomediastinal silhouette unremarkable. There is hazy patchy airspace consolidation involving right mid and lower lung primarily, less so left lower lung with some associated subsegmental atelectasis. There is no definite pulmonary vascular congestion, no evidence of pneumothorax. Small pleural effusions cannot be excluded based on this study. Osseous structures do not suggest acute pathology. There are degenerative changes in the spine. IMPRESSION: 1. Mild cardiac enlargement 2. Hazy patchy airspace consolidation right mid and lower lung, less so left lower lung with some associated subsegmental atelectasis, cannot exclude multifocal pneumonia. This report was electronically signed by Lucas Frank MD on 03/15/2022 3:19:29 AM. 03/15/2022 [facility] Chest 1 Vw Portable EXAM: Chest 1 Vw Por table CLINICAL INDICATION: Chest pain COMPARISON: 03/09/2022 TECHNIQUE: Single portable frontal view of the chest. FINDINGS: Normal cardiomediastinal silhouette. No mediastinal or hilar abnormality. Central airway is patent. Lungs are clear. No pleural effusion or pneumothorax. No acute abnormality of the bony thorax. IMPRESSION: 1. No acute abnormality. Signed by: Chapo Lowery on 03/10/2022 6:51 AM 03/10/2022 [place] [address] Vw Portable INDICATION: Congestion PROCEDURE: Chest 1 Vw Portable FINDINGS: The cardiac silhouette appears enlarged. There is mild redistribution and increase in the vascular markings in the perihilar regions and at the bases. IMPRESSION: Findings suggest mild congestive heart failure and cardiomegaly. There is no gross interval change as compared to the previous study 03/08/2022. Signed by: Angelo Boateng on 03/09/2022 11:12 AM 03/09/2022 [place] [address] Vw Portable EXAMINATION: Portabl e chest x-ray, one view. COMPARISON: March 07, 2022. INDICATION: Shortness of breath. FINDINGS: Mild cardiomegaly, pulmonary edema and left costophrenic angle blunting are suggestive of CHF. There is new tiny left pleural effusion. The remainder of findings are unchanged. IMPRESSION: New left costophrenic angle blunting suggestive of tiny pleural effusion. Signed by: KIANA BUTTERFIELD on 03/08/2022 7:24 AM 03/08/2022 [place] [address] Vw Portable INDICATION: Congestion COMPARISON: March 06, 2022 FINDINGS: Cardiomegaly is seen. There is no evidence of infiltrates or effusions. The aorta is calcified. Mild pulmonary vascular congestion is seen. Soft tissues are unremarkable. Spondylosis is seen throughout the spine. IMPRESSION: Cardiomegaly with mild pulmonary vascular congestion, not significant changed. Calcified aorta. Spondylosis thoracic spine. Signed by: Jesus Garcia on 03/07/2022 7:21 AM 03/07/2022 [facility] MRI Brain WO Contrast EXAMINATION: MRI B rain WO Contrast CLINICAL HISTORY: Unspecified neurologic symptoms and suspected stroke. COMPARISONS: CT brain and CTA head from the previous day. TECHNIQUE: Multiplanar/multisequence noncontrast MR imaging of the brain was performed. Patient motion artifact severely degrades several of these sequences rendering some of them near nondiagnostic. FINDINGS: Evaluation of the posterior fossa demonstrate the fourth ventricle to be midline without mass impression. The seventh and eighth nerve complexes are grossly unremarkable. Evaluation of the supratentorial brain demonstrates the cortical sulci and ventricular system to be unremarkable for the patient's age. No restricted diffusion is seen. There is suspected mild nonspecific confluent periventricular T2/FLAIR signal abnormality likely related to small vessel ischemic disease in a patient of this age. There is no gross mass lesion or hemorrhage. There is no mass effect or midline shift. An extra-axial fluid collection is not identified. The cerebral vasculature demonstrates grossly normal flow-void. The globes and optic nerve complexes are symmetric with nonvisualization of the lenses, likely postsurgical. There is mild chronic mucosal thickening throughout the right maxillary sinus, right frontal sinus and bilateral posterior ethmoid air cells. IMPRESSION: Markedly limited study due to motion with no acute infarct. Short-term follow-up with a repeat study when the patient can better tolerate it may be of benefit. Signed by: Sandeep Montiel on 03/06/2022 1:46 PM 03/06/2022 [facility] Chest 1 Vw Portable EXAM: Chest 1 Vw Por table CLINICAL INDICATION: Chest pain COMPARISON: 03/04/2022 TECHNIQUE: Single portable frontal view of the chest. FINDINGS: Normal cardiomediastinal silhouette. Congestion noted. No acute abnormality of the bony thorax. IMPRESSION: 1. Congestion is noted. Signed by: Chapo Lowery on 03/06/2022 7:16 AM 03/06/2022 [facility] CT Brain WO Contrast Clinical History 24 hours after tpa patient altered would not hold still Comparison: CT HEAD on 03/04/2022, 244 images. Technique: Noncontrast CT head is obtained. All CT scans at this medical facility are performed using dose modulation techniques as appropriate to a performed exam including the following: Automated exposure control was utilized; adjustment of the mA and/or kV according to patient size; and use of iterative reconstruction technique. All CT studies are reported to the Dose Index Registry of the [employer]. Without Contrast Radiation Dose: CTDI (mGy): 46.34; DLP (mGy-cm): 895.32 SHERRON SURESH, [id number] -FINDINGS: Evaluation is limited secondary to motion artifact. Cerebral parenchyma: Saenz-white differentiation is maintained. No acute hemorrhage. Extra-axial spaces: No extra-axial fluid collection Ventricles: Ventricles are normal in size Mass effect: No midline shift Posterior Fossa: cerebellar tonsils are normal in position and configuration Calvarium: Normal Visualized paranasal sinuses/mastoids: clear IMPRESSION: No acute intracranial hemorrhage given the limitation of motion artifact. This report was electronically signed by Hudson Conner GASPAR on 03/05/2022 6:36:54 PM. 03/06/2022 [facility] CT Angio Head/Neck W Contrast Clinical History stroke Comparison: CT HEAD on 03/04/2022, 244 images. Technique: Axial images are acquired from the aortic arch to the vertex, during the dynamic injection of intravenous contrast. Data is reconstructed in the sagittal and coronal planes. Multiplanar MIP reconstruction imaging was provided and reviewed at the workstation. MIPS reconstruction was performed in multiple planes. All CT scans at this medical facility are performed using dose modulation techniques as appropriate to a performed exam including the following: Automated exposure control was utilized; adjustment of the mA and/or kV according to patient size; and use of iterative reconstruction technique. All CT studies are reported to the Dose Index Registry of the [employer]. 3D images be reconstructed or obtained with maximum intensity projection postprocessing (MIP), volume rendered or other 3D technique. Contrast: isovue 370/100ml Radiation Dose: CTDI (mGy): 25.26; DLP (mGy-cm): 988.98 SHERRON SURESH, [id number] Findings: CTA neck: Aortic arch is normal in caliber without significant atherosclerotic changes. The right brachiocephalic, common carotid arteries, carotid bulb as well as the internal carotid artery are patent. mild plaque in the carotid bulb and distal common carotid. The left common carotid artery, carotid bulb and internal carotid artery are patent. mild inflammatory changes along the distal carotid and carotid bulb. The vertebral arteries are patent. CTA head: Cavernous internal carotid arteries are patent. The A1, and A2 segments of the anterior cerebral artery are patent. There is a patent anterior communicating artery. The M1, and M2 segments of the middle cerebral artery are patent. There is a symmetric distal branch pattern. The posterior inferior cerebellar arteries are patent. Basilar artery is unremarkable. Posterior superior cerebral arteries are unremarkable. The P1, and P2 segments of the posterior cerebral artery are patent. Posterior communicating arteries are present. Bony structures are intact. No evidence of an acute fracture. The airway is midline. Thyroid gland is unremarkable. Lung apices demonstrate subtle emphysematous changes with dependent basilar lung disease. There is no enlarged cervical lymphadenopathy. Impression: No evidence of hemodynamically significant stenosis in the neck. No dissection or occlusion Inflammatory changes surrounding the distal left common carotid and carotid bulb suggest prior endarterectomy. No evidence of hemodynamically significant stenosis in the head. No aneurysm or occlusion. No evidence of vascular mass. This report was electronically signed by Fidencio Del Rio MD on 03/04/2022 9:40:39 PM. 03/05/[address]22 [facility] CT Brain WO Contrast Clinical History stroke/TIA Comparison: CT HEAD on 11/22/2013, 83 images. Technique: Noncontrast axial images were obtained from the skull base to the vertex. Sagittal and coronal reconstructions were performed. All CT scans at this medical facility are performed using dose modulation techniques as appropriate to a performed exam including the following: Automated exposure control was utilized; adjustment of the mA and/or kV according to patient size; and use of iterative reconstruction technique. All CT studies are reported to the Dose Index Registry of the [employer]. Without Contrast Radiation Dose: CTDI (mGy): 46.66; DLP (mGy-cm): 924.79 SHERRON SURESH, [id number] Findings: There was dilatation of the ventricles and sulci. No acute hemorrhage is seen. No acute large vessel cerebral infarcts were seen. Old lacunar infarct. Sinus disease. Motion artifact. No fractures were seen. There was decreased attenuation seen within the periventricular white matter which was nonspecific however may represent small vessel ischemia. Impression: Atrophy. No acute hemorrhage. No acute infarcts are seen. However, acute infarcts cannot be excluded. If clinically indicated, MRI is recommended for further evaluation. This report was electronically signed by Jan Baron MD on 03/04/2022 7:16:30 PM. The above findings were reported to Dr. Rodriguez . The call was initiated at 03/04/2022 7:18:22 PM. 03/05/2022 [facility] Chest 1 Vw Portable INDICATION: Stroke/TIA COMPARISON: December 10, 2013 FINDINGS: Cardiomegaly is seen. There is no evidence of infiltrates or effusions. The aorta is calcified. Mild pulmonary vascular congestion is seen. Soft tissues are unremarkable. Spondylosis is seen throughout the spine. IMPRESSION: Cardiomegaly with mild pulmonary vascular congestion. Calcified aorta. Spondylosis thoracic spine. Signed by: Jesus Garcia on 03/04/2022 9:14 PM 03/05/2022 [facility] Consultation Notes Results Value Date Source Discharge summary Patient: SHERORN SURESH Age: 76 years Legal Sex: Male : 1945 Author: MD Morgan, Clayton Basic Information Documented by: Attending Physician. Discharge Information Discharge Information: Admit Date: 03/26/22 17:18 Discharge Date: 04/11/22 Reason For Visit: SWING BED Discharge Location: Home Physicians Involved With Care ?? Admitting: ? MD Anne Tasha ?? Attending: ? MD Anne Tasha ?? Primary Care: ??? NONE, . Conditions Present on Admission: DIagnosis/Condition: Active Diagnoses ?Anemia (Anemia, unspecified) ?Effusion of right knee joint (Effusion, right knee) ?Acute respiratory failure with hypoxia (Acute respiratory failure with hypoxia) ?Tobacco abuse (Tobacco use) ?COPD without exacerbation (Chronic obstructive pulmonary disease, unspecified) ?Right knee pain (Pain in right knee) ?Hyperglycemia (Hyperglycemia, unspecified) ?Prediabetes (Prediabetes) ?History of TIA (transient ischemic attack) (Personal history of transient ischemic attack (TIA), and cerebral infarction without residual deficits) ?Urinary catheter present (Presence of urogenital implants) ?Urine retention (Retention of urine, unspecified) ?Atrial fibrillation with RVR (Unspecified atrial fibrillation) ?Seizure (Unspecified convulsions) ?MSSA bacteremia (Bacteremia) ?Generalized weakness (Weakness) . Diagnoses: Active Diagnoses ?Anemia (Anemia, unspecified) ?Effusion of right knee joint (Effusion, right knee) ?Acute respiratory failure with hypoxia (Acute respiratory failure with hypoxia) ?Tobacco abuse (Tobacco use) ?COPD without exacerbation (Chronic obstructive pulmonary disease, unspecified) ?Right knee pain (Pain in right knee) ?Hyperglycemia (Hyperglycemia, unspecified) ?Prediabetes (Prediabetes) ?History of TIA (transient ischemic attack) (Personal history of transient ischemic attack (TIA), and cerebral infarction without residual deficits) ?Urinary catheter present (Presence of urogenital implants) ?Urine retention (Retention of urine, unspecified) ?Atrial fibrillation with RVR (Unspecified atrial fibrillation) ?Seizure (Unspecified convulsions) ?MSSA bacteremia (Bacteremia) ?Generalized weakness (Weakness) . Allergies: Allergic Reactions (Selected) NKA. 76 yo male with hx of HTN, HLD, tob abuse, COPD, pre-diabetes, s/p carotid endarterectomy 02/21/22 who is admitted to [facility] Swing bed for cont IV Abx therapy for MSSA Bacteremia with IV Ancef thru 04/10/22 and rehab for weakness after an acute hospitalization where he was treated for an acute CVA with tPA and he suffered a seizure and developed atrial fibrillation. Has a blankenship catheter for urine retention - has not had any problems with urination previously and no dx of prostate problems. Seen by Dr. Cagle neurology on 04/10/22 and recommended to continue Keppra and follow up as outpt, 1. Weakness: Swing bed, PT, OT, fall precautions. 2. TIA: On Eliquis, ASA, cont Lipitor, patient presented with signs/symptoms of CVA, CT head was negative for hemorrhagic stroke - Neurology recommended tPA. Subsequent MRI brain was negative for stroke, CT H&N angio was negative, Echo with bubble was negative. 3. New onset AFib: Currently in NSR, Cont Metoprolol and Digoxin and follow up as outpatient, cont Eliquis. 4. Urinary retention: On Blankenship, Cont Bladder training with new parameters. Nurse informed for bladder scanning. Cont Flomax. 5. Seizure like activity: CT and MRI brain were negative for acute process, Cont Keppra, scheduled for EEG on today at [facility] with Dr. Cagle, will follow up with Neurology. 6. MSSA and E faecalis bacteremia: Cont Ancef until 04/10/22. Missed the dose last night, will restart and last dose tomorrow am. 7. COPD: Chronic, not on exacerbation, need O2 at night, Cont Budesonide and Duoneb treatments, may need Home O2 nocturnal. 8. HTN: Cont Lisinopril and Metoprolol. 9. Pre-diabetes: Cont Insulin sliding scale. 10. HLD: Cont Lipitor 11. Smoking: Nicotine patch and counseling done. 12. 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 13. Anemia: Hgb stable and improving, no sign of bleed. Laboratory Results: Lab Results ST Selected Lab Results Lab ? Results ? Normalcy ? Date WBC ? 9.20 K/mm3 ? Normal ? 04/10/22 05:25 HGB ? 9.5 gm/dL ? Low ? 04/10/22 05:25 HCT ? 29.0 % ? Low ? 04/10/22 05:25 PLT ? 368 K/mm3 ? Normal ? 04/10/22 05:25 Sodium Level ? 138 mmol/L ? Normal ? 04/10/22 05:25 Chloride Level ? 101 mmol/L ? Normal ? 04/10/22 05:25 Potassium Level ? 3.9 mmol/L ? Normal ? 04/10/22 05:25 BUN ? 17 mg/dL ? Normal ? 04/10/22 05:25 Creatinine ? 1.0 mg/dL ? Normal ? 04/10/22 05:25 AST ? 13 IntUnit/L ? Low ? 04/10/22 05:25 ALT ? 6 IntUnit/L ? Low ? 04/10/22 05:25 Calcium Level ? 8.6 mg/dL ? Low ? 04/10/22 05:25 Magnesium Level ? 1.8 mg/dL ? Normal ? 04/10/22 05:25 Albumin Level ? 2.9 gm/dL ? Low ? 04/10/22 05:25 CO2/Carbon Dioxide ? 29 mmol/L ? Normal ? 04/10/22 05:25 Glucose, Random ? 104 mg/dL ? Normal ? 04/10/22 05:25 , Unresulted Labs/Orders ST Results Pending No Pending Orders Found Within Electronic Medical Record . MEDICATIONS NEW MEDICATIONS YOU WILL BE TAKING AT HOME WITH INSTRUCTIONS ON HOW AND WHEN TO TAKE FOR EACH MEDICATION. budesonide (budesonide 0.5 mg/2 mL inhalation suspension) ?2 mL = 0.5 mg Deep breath EVERY 12 HOURS NEBULIZER AMPULE Last Dose: ?04/11/2022 07:13 aspirin (Aspir 81 oral enteric coated tablet) ?1 Tab = 81 mg Oral DAILY Enteric coated tablet Last Dose: 04/11/2022 ?08:38 metoprolol (Metoprolol Tartrate 50 mg oral tablet) ?1 Tab = 50 mg Oral TWICE DAILY Tablet Last Dose: 04/11/2022 08:38 atorvastatin (atorvastatin 80 mg oral tablet) ?1 Tab = 80 mg Oral DAILY Tablet apixaban (Eliquis 5 mg oral tablet) ?1 Tab = 5 mg Oral TWICE DAILY Tablet furosemide (furosemide 20 mg oral tablet) ?1 Tab = 20 mg Oral DAILY Tablet pantoprazole (pantoprazole 40 mg oral enteric coated tablet) ?1 Tab = 40 mg Oral BEFORE BREAKFAST Enteric coated tablet Last Dose: ?04/11/2022 05:34 nicotine (nicotine 14 mg/24 hr transdermal film, extended release) ?1 Patch Top of the skin in one area DAILY Patch 7 Day(s) Last Dose: ?04/08/2022 09:27 levETIRAcetam (Keppra 500 mg oral tablet) ?1 Tab = 500 mg Oral TWICE DAILY Tablet Last Dose: 04/11/2022 08:38 tamsulosin (tamsulosin 0.4 mg oral capsule) ?1 Cap = 0.4 mg Oral AT BEDTIME Capsule lisinopril (lisinopril 10 mg oral tablet) ?1 Tab = 10 mg Oral DAILY Tablet digoxin (digoxin 125 mcg (0.125 mg) oral tablet) ?1 Tab = 0.125 mg Oral DAILY Tablet cholecalciferol (cholecalciferol 1000 intl units oral tablet) ?1 Tab = 25 mcg Oral DAILY Tablet MEDICATION(S) YOU TOOK AT HOME PRIOR TO YOUR VISIT. PLEASE CHECK THE INSTRUCTIONS, THEY MAY HAVE CHANGED. docusate-senna (docusate-senna 50 mg-8.6 mg oral capsule) Immunizations:: Immunization/Vaccination Not Found Within Electronic Medical Record . Vital Signs (last charted) Pulse:?78?(04/11 08:38)?Pulse Ox:?93?(04/11 08:17) BP:?127/66?? ?(04/11 08:17)?Ox Delivery:?? ?Room air Temperature:?? ?97.9 F (36.6 C) ?(04/11 08:17)?Ox %/FiO2:?21?(04/11 07:33) Respiration:?? ?18?(04/11 08:17)?FiO2 set:?Not Charted Pain Intensity Level:??6??(04/11 08:38) Measurements (last charted) ? Weight: ? 88.3 kg (04/11/22 06:40:00) ? Height: ? 180.34 cm (03/27/22 10:06:00) ? BMI: ? 26.54 kg/m2 (03/26/22 18:14:00) Physical Examination General: Alert and oriented, No acute distress. Eye: Extraocular movements are intact. HENT: Normocephalic. Neck: Supple. Respiratory: Rales and coarse BL, decrease BS bases . Cardiovascular: Normal rate, Regular rhythm, Diastolc Murmur. Gastrointestinal: Soft, Non-tender, Non-distended, Normal bowel sounds. Genitourinary: No costovertebral angle tenderness, Blankenship in place . Musculoskeletal Normal range of motion. Normal strength. No tenderness. No swelling. Midline R upper arm. Integumentary: Warm. Neurologic: Alert, Oriented, Normal sensory, Normal motor function, No focal deficits, Cranial Nerves II-XII are grossly intact, Gag reflex normal. Psychiatric: Cooperative, Normal judgment, Non-suicidal. Discharge Plan Discharge Summary Plan Discharge Status: improved. Condition at Discharge: Cognitive status intact, Resuscitation status full code, Rehab potential good. Discharged/Transferred to: home with Home Health Care. Follow Up: PMD in 1 week , Neurology as scheduled, Urology in 1 week . Professional Services Total Discharge Time Discharge Time: > 30 Minutes. Electronically signed by: MD Morgan, Clayton Signed on: 11-Apr-2022 11:25 PST 04/11/2022 [facility] Neurology Office/Clinic Note Patient: SHERRON SURESH Age: 76 years Legal Sex: MALE : 1945 _ 04/10/2022 16:00 PST Reason for consult: Recent TIA, seizures History of present illness: Patient with recent TIA and seizure. He is currently at rehab. He is in a wheelchair due to generalized weakness. He denies focal neurologic deficits. Reports having seizures previously in his life, small once. Sounds like this time he had generalized tonic-clonic convulsions. He is on Keppra. He denies significant side effects. No qualifying data available. Review of System: Constitutional: Negative except as noted in HPI. EENT: Negative except as noted in HPI. Respiratory: Negative except as noted in HPI. Cardiovascular: Negative except as noted in HPI. Lymphatic: Negative except as noted in HPI. Gastrointestinal: Negative except as noted in HPI. Genitourinary: Negative except as noted in HPI. LNMP: _ (if applicable) Musculoskeletal: Negative except as noted in HPI. Skin: Negative except as noted in HPI. Neurologic: Negative except as noted in HPI. Psychiatric: Negative except as noted in HPI. Review of Systems was completed. Vital Signs (last 24 hrs) Last Charted Minimum Maximum Temp(?F) 97.8 (APR 10 15:53 PST) 97.8 (APR 10 15:53 PST) 97.8 (APR 10 15:53 PST) Heart Rate 77 (APR 10 15:53 PST) 77 (APR 10 15:53 PST) 77 (APR 10 15:53 PST) Resp Rate 16 (APR 10 15:53 PST) 16 (APR 10 15:53 PST) 16 (APR 10 15:53 PST) SBP 138 (APR 10 15:53 PST) 138 (APR 10 15:53 PST) 138 (APR 10 15:53 PST) DBP 88 (APR 10 15:53 PST) 88 (APR 10 15:53 PST) 88 (APR 10 15:53 PST) Physical Examination: General Appearance: No acute distress. HEENT: Normocephalic. PERRL. Normal tympanic membranes. No nasal discharge. Oral cavity and pharynx normal. Teeth and gingiva in good general condition. Neck supple, non-tender without lymphadenopathy, masses or thyromegaly. Cardiac: Normal rate and rhythm. There is no peripheral edema, cyanosis or pallor. Lungs: Clear to auscultation Abdomen: Positive bowel sounds. Soft, non-distended, non-tender. No guarding or rebound. No masses. Musculoskeletal: No joint deformity, erythema, or tenderness. Neurological: Normal motor, sensory, and mental status examination. Reflexes 2+ throughout. Skin: Skin normal color, texture and turgor with no rash present. Genitalia: Deferred. Psychiatric: Demonstrated good judgment and reason and normal affect during examination. Assessment: 76-year-old male with recent TIA and seizure disorder. Continue Keppra, strict vascular risk factors control per primary care provider. We discussed adherence with antiepileptic drugs. We discussed seizure triggers and seizure precautions. We discussed antiepileptic drugs side effects. I have reviewed patients medical records, labs and images, results as above. Counseling included patients condition, prognosis and treatment. Patient was interactive, attentive, asked questions and verbalized understanding. We will provide primary care provider with the copy of this note. It is duly noted that this narrative may have been transcribed utilizing [employer] voice recognition software and may include unintended recognition errors within the text. [id number] Male 04/11/2022 [facility] [place] Progress note Patient: SHERRON SURESH Age: 76 years Legal Sex: Male : 1945 Author: MD Morgan, Clayton Basic Information No events, Labs reviewed and OK except Hgb which is improving Review of Systems Constitutional: Weakness, Fatigue, Decreased activity. Eye: Negative. Ear/Nose/Mouth/Throat: Negative. Respiratory: Shortness of breath. Cardiovascular: Negative. Gastrointestinal: Negative. Genitourinary: Negative. Musculoskeletal: Joint pain. Integumentary: Negative. Neurologic: Negative. Psychiatric: Negative. Health Status Allergies: Allergic Reactions (Selected) NKA Current medications: (Selected) Inpatient Medications Ordered Dextrose 50% Inj 50 mL: = 25 mL, IV, As directed, PRN, Blood Glucose, INJ, 03/27/22 8:30:00 PST Dextrose 50% Inj 50 mL: = 50 mL, IV, As directed, PRN, Blood Glucose, INJ, 03/27/22 8:30:00 PST DuoNeb: = 3 mL, INH, Q4H7, PRN, Shortness of breath, NEB AMP, 03/27/22 12:55:00 PST DuoNeb: = 3 mL, INH, Q6H7, NEB AMP, 03/27/22 13:00:00 PST Eliquis: 5 mg, ORAL, BID, Indication = Atrial Fibrillation, TAB, 03/26/22 21:00:00 PST Keppra: 500 mg, ORAL, BID, TAB, 03/26/22 21:00:00 PST Metoprolol Tartrate: 50 mg, ORAL, BID, TAB, 03/30/22 21:00:00 PST acetaminophen: 500 mg, ORAL, Q6H, PRN, Pain-Mild (Scale 1-3), TAB, 03/26/22 20:32:00 PST aspirin: 81 mg, ORAL, DAILY, EC TAB, 04/08/22 20:09:00 PST atorvastatin: 80 mg, ORAL, DAILY, TAB, 03/26/22 19:46:00 PST bisacodyl: 5 mg, ORAL, DAILY, PRN, Constipation, EC TAB Second option, 04/03/22 17:35:00 PST budesonide 0.25 mg/2 mL Inhal Susp: 0.5 mg, INH, Q12H, NEB AMP, 03/27/22 13:00:00 PST cholecalciferol: 25 mcg, ORAL, DAILY, TAB, 03/27/22 9:00:00 PST digoxin: 0.125 mg, ORAL, DAILY, TAB, 03/27/22 9:00:00 PST docusate: 100 mg, ORAL, BID, CAP, 03/26/22 21:00:00 PST furosemide: 20 mg, ORAL, DAILY, TAB, 03/27/22 9:00:00 PST glucagon: 1 mg, SUBQ, As directed, PRN, Blood Glucose, INJ, 03/27/22 8:30:00 PST glucose 40% oral gel: 15 gm = 37.5 mL, ORAL, As directed, PRN, Blood Glucose, GEL, 03/27/22 8:30:00 PST insulin regular Sliding Scale Med (Body wt 70-100kg): sliding scale, SUBQ, AC&Bed, INJ, 03/26/22 21:00:00 PST lisinopril: 10 mg, ORAL, DAILY, TAB, 03/27/22 9:00:00 PST magnesium hydroxide: = 30 mL, ORAL, DAILY, PRN, Constipation, ORAL SUSP First option, 03/26/22 20:32:00 PST magnesium oxide: 400 mg, ORAL, BIDMEALS, TAB, 03/28/22 16:30:00 PST nicotine 14 mg/day Patch: 14 mg, TOP, DAILY, PATCH, 03/27/22 12:54:00 PST pantoprazole: 40 mg, ORAL, ACBkfst, NOW, EC TAB, 03/28/22 14:53:00 PST tamsulosin: 0.4 mg, ORAL, QBedtime, CAP, 03/26/22 21:00:00 PST traMADol: 100 mg, ORAL, Q6H, PRN, Pain-Severe (Scale 7-10), TAB, 03/27/22 12:54:00 PST traMADol: 50 mg, ORAL, Q6H, PRN, Pain-Moderate (Scale 4-6), TAB, 03/27/22 12:54:00 PST Documented Medications Documented Eliquis 5 mg oral tablet: = 1 Tab, ORAL, BID, 0 Refill(s), Maintenance atorvastatin 80 mg oral tablet: = 1 Tab, ORAL, DAILY, 0 Refill(s), Maintenance cholecalciferol 1000 intl units oral tablet: = 1 Tab, ORAL, DAILY, 0 Refill(s), Maintenance digoxin 125 mcg (0.125 mg) oral tablet: = 1 Tab, ORAL, DAILY, 0 Refill(s), Maintenance docusate-senna 50 mg-8.6 mg oral capsule: 0 Refill(s), Maintenance furosemide 20 mg oral tablet: = 1 Tab, ORAL, DAILY, 0 Refill(s), Maintenance insulin lispro 100 units/mL injectable solution: correction scale, SUBQ, AC&Bed, 0 Refill(s), Maintenance lisinopril 10 mg oral tablet: = 1 Tab, ORAL, DAILY, 0 Refill(s), Maintenance metoprolol tartrate 25 mg oral tablet: = 1 Tab, ORAL, BID, 0 Refill(s), Maintenance tamsulosin 0.4 mg oral capsule: = 1 Cap, ORAL, QBedtime, 0 Refill(s), Maintenance, Medications (27) Active Scheduled: (17) albuterol-ipratrop 3-0.5 mg/3 mL Neb Soln 3 mL, INH, Q6H7 apixaban 5 mg Tab 5 mg 1 Tab, ORAL, BID aspirin 81 mg EC Tab 81 mg 1 EC_Tab, ORAL, DAILY atorvastatin 40 mg Tab 80 mg 2 Tab, ORAL, DAILY budesonide 0.5 mg/2 mL, 2 mL Inhal Susp 0.5 mg 2 mL, INH, Q12H cholecalciferol (D3) 25 mcg (1,000 IU) Tab 25 mcg 1 Tab, ORAL, DAILY digoxin 0.125 mg Tab 0.125 mg 1 Tab, ORAL, DAILY docusate sodium 100 mg Cap 100 mg 1 Cap, ORAL, BID furosemide 20 mg Tab 20 mg 1 Tab, ORAL, DAILY insulin regular (HumuLIN R) 100 units/mL, 3 mL MDV sliding scale, SUBQ, AC&Bed levETIRAcetam 500 mg Tab 500 mg 1 Tab, ORAL, BID lisinopril 10 mg Tab 10 mg 1 Tab, ORAL, DAILY magnesium Oxide 400 mg Tab 400 mg 1 Tab, ORAL, BIDMEALS metoprolol tartrate 50 mg Tab 50 mg 1 Tab, ORAL, BID nicotine 14 mg/day Patch 14 mg 1 Patch, TOP, DAILY pantoprazole 40 mg EC Tab 40 mg 1 Tab, ORAL, ACBkfst tamsulosin 0.4 mg Cap 0.4 mg 1 Cap, ORAL, QBedtime Continuous: (0) PRN: (10) acetaminophen 500 mg Tab 500 mg 1 ea, ORAL, Q6H albuterol-ipratrop 3-0.5 mg/3 mL Neb Soln 3 mL, INH, Q4H7 bisacodyl 5 mg EC Tab 5 mg 1 Tab, ORAL, DAILY Dextrose 50% Inj 50 mL Syr 25 mL, IV, As directed Dextrose 50% Inj 50 mL Syr 50 mL, IV, As directed glucagon 1 mg Inj SDV 1 mg, SUBQ, As directed Glucose 40% Oral Gel 15 gm 15 gm 37.5 mL, ORAL, As directed Milk of Magnesia 30 mL 30 mL, ORAL, DAILY traMADol 50 mg Tab 50 mg 1 Tab, ORAL, Q6H traMADol 50 mg Tab 100 mg 2 Tab, ORAL, Q6H Problem list: All Problems Anticoagulated by anticoagulation treatment / [id number] / Confirmed Bleeding / 138943960 / Provisional Blood sugar management / [id number] / Provisional Body mass index 30+ - obesity / 514655141 / Confirmed Current smoker / 292351892 / Confirmed Diabetes / 45110 / Confirmed Elevated serum cholesterol / [id number] [facility] / Confirmed Fall risk / [id number] / Provisional High blood pressure / [id number] / Confirmed Manage infection control / [id number] / Provisional Readiness for discharge / 0460314762 / Provisional TIA (transient ischemic attack) / [id number] / Confirmed Canceled: Activity intolerance / 176957267 Canceled: Anticoagulant monitoring / [id number] Canceled: Blood sugar management / [id number] Canceled: Decreased cardiac output / 300248899 Canceled: Fall risk / [id number] Canceled: Knowledge deficit / 4676103557 Canceled: Readiness for discharge / 5033900804 Canceled: Skin integrity at risk / 2835782803, Active or Inactive Problems (5) Body mass index 30+ - obesity Diabetes Elevated serum cholesterol High blood pressure TIA (transient ischemic attack) Physical Examination Vital Signs (last 24 hrs) Last Charted Minimum Maximum Temp(?F) 98 (APR 10 07:45 PST) 97.9 (APR 09 19:47 PST) 98 (APR 10 07:45 PST) Heart Rate 99 (APR 10 08:54 PST) 72 (APR 09 13:55 PST) H 115 (APR 10 08:38 PST) Resp Rate 20 (APR 10 08:38 PST) 18 (APR 09 13:55 PST) 20 (APR 09 19:07 PST) SBP 132 (APR 10 08:54 PST) 132 (APR 10 08:54 PST) H 155 (APR 10 07:45 PST) DBP 68 (APR 10 08:54 PST) 68 (APR 09 19:47 PST) 86 (APR 10 07:45 PST) SpO2 98 (APR 10 08:39 PST) C 89 (APR 10 01:06 PST) 98 (APR 09 19:21 PST) OXYFIO2 24 (APR 10 08:39 PST) 24 (APR 10 08:30 PST) 24 (APR 10 08:30 PST) OXYFLOW 1 (APR 10 08:39 PST) 1 (APR 09 13:55 PST) 1 (APR 09 13:55 PST) OXYDELIVERY Nasal cannula Nasal Nasal (APR 10 08:39 PST) (APR 09 19:07 PST) (APR 09 19:07 PST) General: Alert and oriented, No acute distress. Eye: Extraocular movements are intact. HENT: Normocephalic. Neck: Supple. Respiratory: Rales and coarse BL, decrease BS bases . Cardiovascular: Normal rate, Regular rhythm, Diastolc Murmur. Gastrointestinal: Soft, Non-tender, Non-distended, Normal bowel sounds. Genitourinary: No costovertebral angle tenderness, Blankenship in place . Musculoskeletal Normal range of motion. Normal strength. No tenderness. No swelling. Midline R upper arm. Integumentary: Warm. Neurologic: Alert, Oriented, Normal sensory, Normal motor function, No focal deficits, Cranial Nerves II-XII are grossly intact, Gag reflex normal. Psychiatric: Cooperative, Normal judgment, Non-suicidal. Review / Management Results review: Labs (Last four charted values) WBC 9.20 (APR 10) 6.60 (MAR 31) 7.00 (MAR 29) 7.40 (MAR 16) Hgb L 9.5 (APR 10) L 8.4 (MAR 31) L 8.4 (MAR 29) L 8.5 (MAR 16) Hct L 29.0 (APR 10) L 25.4 (MAR 31) L 25.3 (MAR 29) L 25.5 (MAR 16) Plt 368 (APR 10) 362 (MAR 31) 327 (MAR 29) 337 (MAR 28) Na 138 (APR 10) 138 (MAR 31) 136 (MAR 29) L 134 (MAR 28) K 3.9 (APR 10) 4.5 (MAR 31) 4.5 (MAR 29) 4.0 (MAR 28) CO2 29 (APR 10) 28 (MAR 31) 29 (MAR 29) 30 (MAR 28) Cl 101 (APR 10) 103 (MAR 31) L 100 (MAR 29) L 99 (MAR 28) Cr 1.0 (APR 10) 0.9 (MAR 31) 1.0 (MAR 29) 0.8 (MAR 28) BUN 17 (APR 10) 12 (MAR 31) 20 (MAR 29) 15 (MAR 28) Glucose Random 104 (APR 10) H 116 (MAR 31) 99 (MAR 29) H 121 (MAR 28) Mg 1.8 (APR 10) L 1.7 (MAR 28) Ca L 8.6 (APR 10) L 8.1 (MAR 31) L 8.2 (MAR 29) L 8.2 (MAR 28) . Impression and Plan 1. Weakness: Swing bed, PT, OT, fall precautions. 2. TIA: On Eliquis, ASA, cont Lipitor, patient presented with signs/symptoms of CVA, CT head was negative for hemorrhagic stroke - Neurology recommended tPA. Subsequent MRI brain was negative for stroke, CT H&N angio was negative, Echo with bubble was negative. 3. New onset AFib: Currently in NSR, Cont Metoprolol and Digoxin and follow up as outpatient, cont Eliquis. 4. Urinary retention: On Blankenship, Cont Bladder training with new parameters. Nurse informed for bladder scanning. Cont Flomax. 5. Seizure like activity: CT and MRI brain were negative for acute process, Cont Kecynthiara, scheduled for EEG on today at [facility] with Dr. Royter, will follow up with Neurology. 6. MSSA and E faecalis bacteremia: Cont Ancef until 04/10/22. Missed the dose last night, will restart and last dose tomorrow am. 7. COPD: Chronic, not on exacerbation, need O2 at night, Cont Budesonide and Duoneb treatments, may need Home O2 nocturnal. 8. HTN: Cont Lisinopril and Metoprolol. 9. Pre-diabetes: Cont Insulin sliding scale. 10. HLD: Cont Lipitor 11. Smoking: Nicotine patch and counseling done. 12. 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 13. Anemia: Hgb stable and improving, no sign of bleed. 14. DVT, GI PPX 15. Code: Full 16. Dispo: In PT Swing Electronically signed by: MD Morgan, Clayton Signed on: 10-Apr-2022 10:01 PST 04/10/2022 [facility] Progress Note Patient: SHERRON SURESH Age: 76 years Legal Sex: Male : 1945 Author: MD Morgan, [facility] Basic Information No events, Labs reviewed and OK except Hgb which is improving Review of Systems Constitutional: Weakness, Fatigue, Decreased activity. Eye: Negative. Ear/Nose/Mouth/Throat: Negative. Respiratory: Shortness of breath. Cardiovascular: Negative. Gastrointestinal: Negative. Genitourinary: Negative. Musculoskeletal: Joint pain. Integumentary: Negative. Neurologic: Negative. Psychiatric: Negative. Health Status Allergies: Allergic Reactions (Selected) NKA Current medications: (Selected) Inpatient Medications Ordered Dextrose 50% Inj 50 mL: = 25 mL, IV, As directed, PRN, Blood Glucose, INJ, 03/27/22 8:30:00 PST Dextrose 50% Inj 50 mL: = 50 mL, IV, As directed, PRN, Blood Glucose, INJ, 03/27/22 8:30:00 PST DuoNeb: = 3 mL, INH, Q4H7, PRN, Shortness of breath, NEB AMP, 03/27/22 12:55:00 PST DuoNeb: = 3 mL, INH, Q6H7, NEB AMP, 03/27/22 13:00:00 PST Eliquis: 5 mg, ORAL, BID, Indication = Atrial Fibrillation, TAB, 03/26/22 21:00:00 PST Keppra: 500 mg, ORAL, BID, TAB, 03/26/22 21:00:00 PST Metoprolol Tartrate: 50 mg, ORAL, BID, TAB, 03/30/22 21:00:00 PST acetaminophen: 500 mg, ORAL, Q6H, PRN, Pain-Mild (Scale 1-3), TAB, 03/26/22 20:32:00 PST aspirin: 81 mg, ORAL, DAILY, EC TAB, 04/08/22 20:09:00 PST atorvastatin: 80 mg, ORAL, DAILY, TAB, 03/26/22 19:46:00 PST bisacodyl: 5 mg, ORAL, DAILY, PRN, Constipation, EC TAB Second option, 04/03/22 17:35:00 PST budesonide 0.25 mg/2 mL Inhal Susp: 0.5 mg, INH, Q12H, NEB AMP, 03/27/22 13:00:00 PST cholecalciferol: 25 mcg, ORAL, DAILY, TAB, 03/27/22 9:00:00 PST digoxin: 0.125 mg, ORAL, DAILY, TAB, 03/27/22 9:00:00 PST docusate: 100 mg, ORAL, BID, CAP, 03/26/22 21:00:00 PST furosemide: 20 mg, ORAL, DAILY, TAB, 03/27/22 9:00:00 PST glucagon: 1 mg, SUBQ, As directed, PRN, Blood Glucose, INJ, 03/27/22 8:30:00 PST glucose 40% oral gel: 15 gm = 37.5 mL, ORAL, As directed, PRN, Blood Glucose, GEL, 03/27/22 8:30:00 PST insulin regular Sliding Scale Med (Body wt 70-100kg): sliding scale, SUBQ, AC&Bed, INJ, 03/26/22 21:00:00 PST lisinopril: 10 mg, ORAL, DAILY, TAB, 03/27/22 9:00:00 PST magnesium hydroxide: = 30 mL, ORAL, DAILY, PRN, Constipation, ORAL SUSP First option, 03/26/22 20:32:00 PST magnesium oxide: 400 mg, ORAL, BIDMEALS, TAB, 03/28/22 16:30:00 PST nicotine 14 mg/day Patch: 14 mg, TOP, DAILY, PATCH, 03/27/22 12:54:00 PST pantoprazole: 40 mg, ORAL, ACBkfst, NOW, EC TAB, 03/28/22 14:53:00 PST tamsulosin: 0.4 mg, ORAL, QBedtime, CAP, 03/26/22 21:00:00 PST traMADol: 100 mg, ORAL, Q6H, PRN, Pain-Severe (Scale 7-10), TAB, 03/27/22 12:54:00 PST traMADol: 50 mg, ORAL, Q6H, PRN, Pain-Moderate (Scale 4-6), TAB, 03/27/22 12:54:00 PST Documented Medications Documented Eliquis 5 mg oral tablet: = 1 Tab, ORAL, BID, 0 Refill(s), Maintenance atorvastatin 80 mg oral tablet: = 1 Tab, ORAL, DAILY, 0 Refill(s), Maintenance cholecalciferol 1000 intl units oral tablet: = 1 Tab, ORAL, DAILY, 0 Refill(s), Maintenance digoxin 125 mcg (0.125 mg) oral tablet: = 1 Tab, ORAL, DAILY, 0 Refill(s), Maintenance docusate-senna 50 mg-8.6 mg oral capsule: 0 Refill(s), Maintenance furosemide 20 mg oral tablet: = 1 Tab, ORAL, DAILY, 0 Refill(s), Maintenance insulin lispro 100 units/mL injectable solution: correction scale, SUBQ, AC&Bed, 0 Refill(s), Maintenance lisinopril 10 mg oral tablet: = 1 Tab, ORAL, DAILY, 0 Refill(s), Maintenance metoprolol tartrate 25 mg oral tablet: = 1 Tab, ORAL, BID, 0 Refill(s), Maintenance tamsulosin 0.4 mg oral capsule: = 1 Cap, ORAL, QBedtime, 0 Refill(s), Maintenance, Medications (27) Active Scheduled: (17) albuterol-ipratrop 3-0.5 mg/3 mL Neb Soln 3 mL, INH, Q6H7 apixaban 5 mg Tab 5 mg 1 Tab, ORAL, BID aspirin 81 mg EC Tab 81 mg 1 EC_Tab, ORAL, DAILY atorvastatin 40 mg Tab 80 mg 2 Tab, ORAL, DAILY budesonide 0.5 mg/2 mL, 2 mL Inhal Susp 0.5 mg 2 mL, INH, Q12H cholecalciferol (D3) 25 mcg (1,000 IU) Tab 25 mcg 1 Tab, ORAL, DAILY digoxin 0.125 mg Tab 0.125 mg 1 Tab, ORAL, DAILY docusate sodium 100 mg Cap 100 mg 1 Cap, ORAL, BID furosemide 20 mg Tab 20 mg 1 Tab, ORAL, DAILY insulin regular (HumuLIN R) 100 units/mL, 3 mL MDV sliding scale, SUBQ, AC&Bed levETIRAcetam 500 mg Tab 500 mg 1 Tab, ORAL, BID lisinopril 10 mg Tab 10 mg 1 Tab, ORAL, DAILY magnesium Oxide 400 mg Tab 400 mg 1 Tab, ORAL, BIDMEALS metoprolol tartrate 50 mg Tab 50 mg 1 Tab, ORAL, BID nicotine 14 mg/day Patch 14 mg 1 Patch, TOP, DAILY pantoprazole 40 mg EC Tab 40 mg 1 Tab, ORAL, ACBkfst tamsulosin 0.4 mg Cap 0.4 mg 1 Cap, ORAL, QBedtime Continuous: (0) PRN: (10) acetaminophen 500 mg Tab 500 mg 1 ea, ORAL, Q6H albuterol-ipratrop 3-0.5 mg/3 mL Neb Soln 3 mL, INH, Q4H7 bisacodyl 5 mg EC Tab 5 mg 1 Tab, ORAL, DAILY Dextrose 50% Inj 50 mL Syr 25 mL, IV, As directed Dextrose 50% Inj 50 mL Syr 50 mL, IV, As directed glucagon 1 mg Inj SDV 1 mg, SUBQ, As directed Glucose 40% Oral Gel 15 gm 15 gm 37.5 mL, ORAL, As directed Milk of Magnesia 30 mL 30 mL, ORAL, DAILY traMADol 50 mg Tab 50 mg 1 Tab, ORAL, Q6H traMADol 50 mg Tab 100 mg 2 Tab, ORAL, Q6H Problem list: All Problems Anticoagulated by anticoagulation treatment / [id number] / Confirmed Bleeding / 401051272 / Provisional Blood sugar management / 3697146503 / Provisional Body mass index 30+ - obesity / 525510753 / Confirmed Current smoker / 066148137 / Confirmed Diabetes / 31643 / Confirmed Elevated serum cholesterol / [id number] / Confirmed Fall risk / 9972925945 / Provisional High blood pressure / [id number] C3B6 / Confirmed Manage infection control / 8593725586 / Provisional Readiness for discharge / 0623249459 / Provisional TIA (transient ischemic attack) / [id number] / Confirmed Canceled: Activity intolerance / 467260467 Canceled: Anticoagulant monitoring / 021748010 Canceled: Blood sugar management / 3209416245 Canceled: Decreased cardiac output / 801129498 Canceled: Fall risk / 3047281467 Canceled: Knowledge deficit / 8112621319 Canceled: Readiness for discharge / 1861395182 Canceled: Skin integrity at risk / 9065439262, Active or Inactive Problems (5) Body mass index 30+ - obesity Diabetes Elevated serum cholesterol High blood pressure TIA (transient ischemic attack) Physical Examination Vital Signs (last 24 hrs) Last Charted Minimum Maximum Temp(?F) 98 (APR 10 07:45 PST) 97.9 (APR 09 19:47 PST) 98 (APR 10 07:45 PST) Heart Rate 99 (APR 10 08:54 PST) 72 (APR 09 13:55 PST) H 115 (APR 10 08:38 PST) Resp Rate 20 (APR 10 08:38 PST) 18 (APR 09 13:55 PST) 20 (APR 09 19:07 PST) SBP 132 (APR 10 08:54 PST) 132 (APR 10 08:54 PST) H 155 (APR 10 07:45 PST) DBP 68 (APR 10 08:54 PST) 68 (APR 09 19:47 PST) 86 (APR 10 07:45 PST) SpO2 98 (APR 10 08:39 PST) C 89 (APR 10 01:06 PST) 98 (APR 09 19:21 PST) OXYFIO2 24 (APR 10 08:39 PST) 24 (APR 10 08:30 PST) 24 (APR 10 08:30 PST) OXYFLOW 1 (APR 10 08:39 PST) 1 (APR 09 13:55 PST) 1 (APR 09 13:55 PST) OXYDELIVERY Nasal cannula Nasal Nasal (APR 10 08:39 PST) (APR 09 19:07 PST) (APR 09 19:07 PST) General: Alert and oriented, No acute distress. Eye: Extraocular movements are intact. HENT: Normocephalic. Neck: Supple. Respiratory: Rales and coarse BL, decrease BS bases . Cardiovascular: Normal rate, Regular rhythm, Diastolc Murmur. Gastrointestinal: Soft, Non-tender, Non-distended, Normal bowel sounds. Genitourinary: No costovertebral angle tenderness, Blankenship in place . Musculoskeletal Normal range of motion. Normal strength. No tenderness. No swelling. Midline R upper arm. Integumentary: Warm. Neurologic: Alert, Oriented, Normal sensory, Normal motor function, No focal deficits, Cranial Nerves II-XII are grossly intact, Gag reflex normal. Psychiatric: Cooperative, Normal judgment, Non-suicidal. Review / Management Results review: Labs (Last four charted values) WBC 9.20 (APR 10) 6.60 (MAR 31) 7.00 (MAR 29) 7.40 (MAR 28) Hgb L 9.5 (APR 10) L 8.4 (MAR 31) L 8.4 (MAR 29) L 8.5 (MAR 28) Hct L 29.0 (APR 10) L 25.4 (MAR 31) L 25.3 (MAR 29) L 25.5 (MAR 28) Plt 368 (APR 10) 362 (MAR 31) 327 (MAR 29) 337 (MAR 28) Na 138 (APR 10) 138 (MAR 31) 136 (MAR 29) L 134 (MAR 28) K 3.9 (APR 10) 4.5 (MAR 31) 4.5 (MAR 29) 4.0 (MAR 28) CO2 29 (APR 10) 28 (MAR 31) 29 (MAR 29) 30 (MAR 28) Cl 101 (APR 10) 103 (MAR 31) L 100 (MAR 29) L 99 (MAR 28) Cr 1.0 (APR 10) 0.9 (MAR 31) 1.0 (MAR 29) 0.8 (MAR 28) BUN 17 (APR 10) 12 (MAR 31) 20 (MAR 29) 15 (MAR 28) Glucose Random 104 (APR 10) H 116 (MAR 31) 99 (MAR 29) H 121 (MAR 28) Mg 1.8 (APR 10) L 1.7 (MAR 28) Ca L 8.6 (APR 10) L 8.1 (MAR 31) L 8.2 (MAR 29) L 8.2 (MAR 28) . Impression and Plan 1. Weakness: Swing bed, PT, OT, fall precautions. 2. TIA: On Eliquis, ASA, cont Lipitor, patient presented with signs/symptoms of CVA, CT head was negative for hemorrhagic stroke - Neurology recommended tPA. Subsequent MRI brain was negative for stroke, CT H&N angio was negative, Echo with bubble was negative. 3. New onset AFib: Currently in NSR, Cont Metoprolol and Digoxin and follow up as outpatient, cont Eliquis. 4. Urinary retention: On Blankenship, Cont Bladder training with new parameters. Nurse informed for bladder scanning. Cont Flomax. 5. Seizure like activity: CT and MRI brain were negative for acute process, Cont Santosh, scheduled for EEG on today at [facility] with Dr. Cagle, will follow up with Neurology. 6. MSSA and E faecalis bacteremia: Cont Ancef until 04/10/22. Missed the dose last night, will restart and last dose tomorrow am. 7. COPD: Chronic, not on exacerbation, need O2 at night, Cont Budesonide and Duoneb treatments, may need Home O2 nocturnal. 8. HTN: Cont Lisinopril and Metoprolol. 9. Pre-diabetes: Cont Insulin sliding scale. 10. HLD: Cont Lipitor 11. Smoking: Nicotine patch and counseling done. 12. 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 13. Anemia: Hgb stable and improving, no sign of bleed. 14. DVT, GI PPX 15. Code: Full 16. Dispo: In PT Swing [id number] Male 04/10/2022 [facility] Progress Note Patient: SHERRON SURESH Age: 76 years Legal Sex: Male : 1945 Author: MD Morgan, [facility] Basic Information No events, Review of Systems Constitutional: Weakness, Fatigue, Decreased activity. Eye: Negative. Ear/Nose/Mouth/Throat: Negative. Respiratory: Shortness of breath. Cardiovascular: Negative. Gastrointestinal: Negative. Genitourinary: Negative. Musculoskeletal: Joint pain. Integumentary: Negative. Neurologic: Negative. Psychiatric: Negative. Health Status Allergies: Allergic Reactions (Selected) NKA Current medications: (Selected) Inpatient Medications Ordered Ancef: 2 gm, IVPB, [id number], Indication= Bacteremia / Fungemia, INJ, 03/26/22 20:00:00 PST, Stop date 04/10/22 3:59:00 PST Dextrose 50% Inj 50 mL: = 25 mL, IV, As directed, PRN, Blood Glucose, INJ, 03/27/22 8:30:00 PST Dextrose 50% Inj 50 mL: = 50 mL, IV, As directed, PRN, Blood Glucose, INJ, 03/27/22 8:30:00 PST DuoNeb: = 3 mL, INH, Q4H7, PRN, Shortness of breath, NEB AMP, 03/27/22 12:55:00 PST DuoNeb: = 3 mL, INH, Q6H7, NEB AMP, 03/27/22 13:00:00 PST Eliquis: 5 mg, ORAL, BID, Indication = Atrial Fibrillation, TAB, 03/26/22 21:00:00 PST Keppra: 500 mg, ORAL, BID, TAB, 03/26/22 21:00:00 PST Metoprolol Tartrate: 50 mg, ORAL, BID, TAB, 03/30/22 21:00:00 PST acetaminophen: 500 mg, ORAL, Q6H, PRN, Pain-Mild (Scale 1-3), TAB, 03/26/22 20:32:00 PST aspirin: 81 mg, ORAL, DAILY, EC TAB, 04/08/22 20:09:00 PST atorvastatin: 80 mg, ORAL, DAILY, TAB, 03/26/22 19:46:00 PST bisacodyl: 5 mg, ORAL, DAILY, PRN, Constipation, EC TAB Second option, 04/03/22 17:35:00 PST budesonide 0.25 mg/2 mL Inhal Susp: 0.5 mg, INH, Q12H, NEB AMP, 03/27/22 13:00:00 PST cholecalciferol: 25 mcg, ORAL, DAILY, TAB, 03/27/22 9:00:00 PST digoxin: 0.125 mg, ORAL, DAILY, TAB, 03/27/22 9:00:00 PST docusate: 100 mg, ORAL, BID, CAP, 03/26/22 21:00:00 PST furosemide: 20 mg, ORAL, DAILY, TAB, 03/27/22 9:00:00 PST glucagon: 1 mg, SUBQ, As directed, PRN, Blood Glucose, INJ, 03/27/22 8:30:00 PST glucose 40% oral gel: 15 gm = 37.5 mL, ORAL, As directed, PRN, Blood Glucose, GEL, 03/27/22 8:30:00 PST insulin regular Sliding Scale Med (Body wt 70-100kg): sliding scale, SUBQ, AC&Bed, INJ, 03/26/22 21:00:00 PST lisinopril: 10 mg, ORAL, DAILY, TAB, 03/27/22 9:00:00 PST magnesium hydroxide: = 30 mL, ORAL, DAILY, PRN, Constipation, ORAL SUSP First option, 03/26/22 20:32:00 PST magnesium oxide: 400 mg, ORAL, BIDMEALS, TAB, 03/28/22 16:30:00 PST nicotine 14 mg/day Patch: 14 mg, TOP, DAILY, PATCH, 03/27/22 12:54:00 PST pantoprazole: 40 mg, ORAL, ACBkfst, NOW, EC TAB, 03/28/22 14:53:00 PST tamsulosin: 0.4 mg, ORAL, QBedtime, CAP, 03/26/22 21:00:00 PST traMADol: 100 mg, ORAL, Q6H, PRN, Pain-Severe (Scale 7-10), TAB, 03/27/22 12:54:00 PST traMADol: 50 mg, ORAL, Q6H, PRN, Pain-Moderate (Scale 4-6), TAB, 03/27/22 12:54:00 PST Documented Medications Documented Eliquis 5 mg oral tablet: = 1 Tab, ORAL, BID, 0 Refill(s), Maintenance atorvastatin 80 mg oral tablet: = 1 Tab, ORAL, DAILY, 0 Refill(s), Maintenance cholecalciferol 1000 intl units oral tablet: = 1 Tab, ORAL, DAILY, 0 Refill(s), Maintenance digoxin 125 mcg (0.125 mg) oral tablet: = 1 Tab, ORAL, DAILY, 0 Refill(s), Maintenance docusate-senna 50 mg-8.6 mg oral capsule: 0 Refill(s), Maintenance furosemide 20 mg oral tablet: = 1 Tab, ORAL, DAILY, 0 Refill(s), Maintenance insulin lispro 100 units/mL injectable solution: correction scale, SUBQ, AC&Bed, 0 Refill(s), Maintenance lisinopril 10 mg oral tablet: = 1 Tab, ORAL, DAILY, 0 Refill(s), Maintenance metoprolol tartrate 25 mg oral tablet: = 1 Tab, ORAL, BID, 0 Refill(s), Maintenance tamsulosin 0.4 mg oral capsule: = 1 Cap, ORAL, QBedtime, 0 Refill(s), Maintenance, Medications (28) Active Scheduled: (18) albuterol-ipratrop 3-0.5 mg/3 mL Neb Soln 3 mL, INH, Q6H7 apixaban 5 mg Tab 5 mg 1 Tab, ORAL, BID aspirin 81 mg EC Tab 81 mg 1 EC_Tab, ORAL, DAILY atorvastatin 40 mg Tab 80 mg 2 Tab, ORAL, DAILY budesonide 0.5 mg/2 mL, 2 mL Inhal Susp 0.5 mg 2 mL, INH, Q12H ceFAZolin 2 g Inj 2 gm 1 Vial, IVPB, O2F-Ixzxmfxz cholecalciferol (D3) 25 mcg (1,000 IU) Tab 25 mcg 1 Tab, ORAL, DAILY digoxin 0.125 mg Tab 0.125 mg 1 Tab, ORAL, DAILY docusate sodium 100 mg Cap 100 mg 1 Cap, ORAL, BID furosemide 20 mg Tab 20 mg 1 Tab, ORAL, DAILY insulin regular (HumuLIN R) 100 units/mL, 3 mL MDV sliding scale, SUBQ, AC&Bed levETIRAcetam 500 mg Tab 500 mg 1 Tab, ORAL, BID lisinopril 10 mg Tab 10 mg 1 Tab, ORAL, DAILY magnesium Oxide 400 mg Tab 400 mg 1 Tab, ORAL, BIDMEALS metoprolol tartrate 50 mg Tab 50 mg 1 Tab, ORAL, BID nicotine 14 mg/day Patch 14 mg 1 Patch, TOP, DAILY pantoprazole 40 mg EC Tab 40 mg 1 Tab, ORAL, ACBkfst tamsulosin 0.4 mg Cap 0.4 mg 1 Cap, ORAL, QBedtime Continuous: (0) PRN: (10) acetaminophen 500 mg Tab 500 mg 1 ea, ORAL, Q6H albuterol-ipratrop 3-0.5 mg/3 mL Neb Soln 3 mL, INH, Q4H7 bisacodyl 5 mg EC Tab 5 mg 1 Tab, ORAL, DAILY Dextrose 50% Inj 50 mL Syr 25 mL, IV, As directed Dextrose 50% Inj 50 mL Syr 50 mL, IV, As directed glucagon 1 mg Inj SDV 1 mg, SUBQ, As directed Glucose 40% Oral Gel 15 gm 15 gm 37.5 mL, ORAL, As directed Milk of Magnesia 30 mL 30 mL, ORAL, DAILY traMADol 50 mg Tab 50 mg 1 Tab, ORAL, Q6H traMADol 50 mg Tab 100 mg 2 Tab, ORAL, Q6H Problem list: All Problems Anticoagulated by anticoagulation treatment / [id number] / Confirmed Bleeding / [id number] / Provisional Blood sugar management / [id number] / Provisional Body mass index 30+ - obesity / 836468907 / Confirmed Current smoker / 142456332 / Confirmed Diabetes / 26885 / Confirmed Elevated serum cholesterol / [id number] / Confirmed Fall risk / [id number] / Provisional High blood pressure / [id number] / Confirmed Manage infection control / [id number] / Provisional Readiness for discharge / [id number] / Provisional TIA (transient ischemic attack) / [id number] / Confirmed Canceled: Activity intolerance / [id number] Canceled: Anticoagulant monitoring / [id number] Canceled: Blood sugar management / [id number] Canceled: Decreased cardiac output / [id number] Canceled: Fall risk / [id number] Canceled: Knowledge deficit / [id number] Canceled: Readiness for discharge / [id number] Canceled: Skin integrity at risk / 7156380014, Active or Inactive Problems (5) Body mass index 30+ - obesity Diabetes Elevated serum cholesterol High blood pressure TIA (transient ischemic attack) Physical Examination Vital Signs (last 24 hrs) Last Charted Minimum Maximum Temp(?F) 98.4 (APR 09 08:15 PST) 97.8 (APR 08 19:23 PST) 98.4 (APR 09 08:15 PST) Heart Rate 70 (APR 09 09:21 PST) 70 (APR 09 09:21 PST) 90 (APR 08 19:23 PST) Resp Rate 16 (APR 09 08:15 PST) 16 (APR 09 08:15 PST) 20 (APR 08 18:52 PST) SBP 103 (APR 09 08:15 PST) 103 (APR 09 08:15 PST) 120 (APR 08 16:03 PST) DBP L 59 (APR 09 08:15 PST) L 59 (APR 09 08:15 PST) 75 (APR 08 16:03 PST) SpO2 98 (APR 09 08:15 PST) C 87 (APR 08 17:30 PST) 99 (APR 08 19:05 PST) OXYFIO2 21 (APR 08 13:53 PST) 21 (B 13:53 PST) 21 (B 13:53 PST) OXYFLOW 1 (APR 09 08:15 PST) 1 (B 18:23 PST) 2 (APR 08 17:55 PST) OXYDELIVERY Nasal cannula Room a Room a (APR 09 08:15 PST) (APR 08 17:30 PST) (APR 08 17:30 PST) Measurements from flowsheet : Measurements 04/08/2022 05:04 PST Weight (kg) 88.0 kg Weight measured method Bed scale General: Alert and oriented, No acute distress. Eye: Extraocular movements are intact. HENT: Normocephalic. Neck: Supple. Respiratory: Rales and coarse BL, decrease BS bases . Cardiovascular: Normal rate, Regular rhythm, Diastolc Murmur. Gastrointestinal: Soft, Non-tender, Non-distended, Normal bowel sounds. Genitourinary: No costovertebral angle tenderness, Blankenship in place . Musculoskeletal Normal range of motion. Normal strength. No tenderness. No swelling. Midline R upper arm. Integumentary: Warm. Neurologic: Alert, Oriented, Normal sensory, Normal motor function, No focal deficits, Cranial Nerves II-XII are grossly intact, Gag reflex normal. Psychiatric: Cooperative, Normal judgment, Non-suicidal. Review / Management Results review: Labs (Last four charted values) WBC 6.60 (MAR 31) 7.00 (MAR 29) 7.40 (B 16) Hgb L 8.4 (MAR 31) L 8.4 (MAR 29) L 8.5 (MAR 16) Hct L 25.4 (MAR 31) L 25.3 (MAR 29) L 25.5 (B 16) Plt 362 (MAR 31) 327 (B 17) 337 (B 16) Na 138 (MAR 31) 136 (MAR 29) L 134 (B 16) K 4.5 (MAR 31) 4.5 (B 17) 4.0 (B 16) CO2 28 (MAR 31) 29 (B 17) 30 (B 16) Cl 103 (MAR 31) L 100 (MAR 17) L 99 (B 16) Cr 0.9 (B ) 1.0 (B 17) 0.8 (B 16) BUN 12 (MAR 31) 20 (B 17) 15 (B 16) Glucose Random H 116 (MAR 31) 99 (B 17) H 121 (B 16) Mg L 1.7 (B 16) Ca L 8.1 (MAR 31) L 8.2 (B 17) L 8.2 (B 16) . Impression and Plan 1. Weakness: Swing bed, PT, OT, fall precautions. 2. TIA: On Eliquis, ASA, cont Lipitor, patient presented with signs/symptoms of CVA, CT head was negative for hemorrhagic stroke - Neurology recommended tPA. Subsequent MRI brain was negative for stroke, CT H&N angio was negative, Echo with bubble was negative. 3. New onset AFib: Currently in NSR, Cont Metoprolol and Digoxin and follow up as outpatient, cont Eliquis. 4. Urinary retention: On Blankenship, Cont Bladder training with new parameters. Nurse informed for bladder scanning. Cont Flomax. 5. Seizure like activity: CT and MRI brain were negative for acute process, Cont Santosh, scheduled for EEG on 04/10/22, will follow up with Neurology. 6. MSSA and E faecalis bacteremia: Cont Ancef until 04/10/22. 7. COPD: Chronic, not on exacerbation, need O2 at night, Cont Budesonide and Duoneb treatments, may need Home O2 nocturnal. 8. HTN: Cont Lisinopril and Metoprolol. 9. Pre-diabetes: Cont Insulin sliding scale. 10. HLD: Cont Lipitor 11. Smoking: Nicotine patch and counseling done. 12. 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 13. DVT, GI PPX 14. Code: Full 15. Dispo: In PT Swing [id number] Male 04/09/2022 [facility] Progress Note Patient: SHERRON SURESH Age: 76 years Legal Sex: Male : 1945 Author: MD Morgan, [facility] Basic Information No events, Review of Systems Constitutional: Weakness, Fatigue, Decreased activity. Eye: Negative. Ear/Nose/Mouth/Throat: Negative. Respiratory: Shortness of breath. Cardiovascular: Negative. Gastrointestinal: Negative. Genitourinary: Negative. Musculoskeletal: Joint pain. Integumentary: Negative. Neurologic: Negative. Psychiatric: Negative. Health Status Allergies: Allergic Reactions (Selected) NKA Current medications: (Selected) Inpatient Medications Ordered Ancef: 2 gm, IVPB, P0P-Fpbgwtcy, Indication= Bacteremia / Fungemia, INJ, 03/26/22 20:00:00 PST, Stop date 04/10/22 3:59:00 PST Dextrose 50% Inj 50 mL: = 25 mL, IV, As directed, PRN, Blood Glucose, INJ, 03/27/22 8:30:00 PST Dextrose 50% Inj 50 mL: = 50 mL, IV, As directed, PRN, Blood Glucose, INJ, 03/27/22 8:30:00 PST DuoNeb: = 3 mL, INH, Q4H7, PRN, Shortness of breath, [facility], 03/27/22 12:55:00 PST DuoNeb: = 3 mL, INH, Q6H7, [facility], 03/27/22 13:00:00 PST Eliquis: 5 mg, ORAL, BID, Indication = Atrial Fibrillation, TAB, 03/26/22 21:00:00 PST Keppra: 500 mg, ORAL, BID, TAB, 03/26/22 21:00:00 PST Metoprolol Tartrate: 50 mg, ORAL, BID, TAB, 03/30/22 21:00:00 PST acetaminophen: 500 mg, ORAL, Q6H, PRN, Pain-Mild (Scale 1-3), TAB, 03/26/22 20:32:00 PST atorvastatin: 80 mg, ORAL, DAILY, TAB, 03/26/22 19:46:00 PST bisacodyl: 5 mg, ORAL, DAILY, PRN, Constipation, EC TAB Second option, 04/03/22 17:35:00 PST budesonide 0.25 mg/2 mL Inhal Susp: 0.5 mg, INH, Q12H, [facility], 03/27/22 13:00:00 PST cholecalciferol: 25 mcg, ORAL, DAILY, TAB, 03/27/22 9:00:00 PST digoxin: 0.125 mg, ORAL, DAILY, TAB, 03/27/22 9:00:00 PST docusate: 100 mg, ORAL, BID, CAP, 03/26/22 21:00:00 PST furosemide: 20 mg, ORAL, DAILY, TAB, 03/27/22 9:00:00 PST glucagon: 1 mg, SUBQ, As directed, PRN, Blood Glucose, INJ, 03/27/22 8:30:00 PST glucose 40% oral gel: 15 gm = 37.5 mL, ORAL, As directed, PRN, Blood Glucose, GEL, 03/27/22 8:30:00 PST insulin regular Sliding Scale Med (Body wt 70-100kg): sliding scale, SUBQ, AC&Bed, INJ, 03/26/22 21:00:00 PST lisinopril: 10 mg, ORAL, DAILY, TAB, 03/27/22 9:00:00 PST magnesium hydroxide: = 30 mL, ORAL, DAILY, PRN, Constipation, ORAL SUSP First option, 03/26/22 20:32:00 PST magnesium oxide: 400 mg, ORAL, BIDMEALS, TAB, 03/28/22 16:30:00 PST nicotine 14 mg/day Patch: 14 mg, TOP, DAILY, PATCH, 03/27/22 12:54:00 PST pantoprazole: 40 mg, ORAL, ACBkfst, NOW, EC TAB, 03/28/22 14:53:00 PST tamsulosin: 0.4 mg, ORAL, QBedtime, CAP, 03/26/22 21:00:00 PST traMADol: 100 mg, ORAL, Q6H, PRN, Pain-Severe (Scale 7-10), TAB, 03/27/22 12:54:00 PST traMADol: 50 mg, ORAL, Q6H, PRN, Pain-Moderate (Scale 4-6), TAB, 03/27/22 12:54:00 PST Documented Medications Documented Eliquis 5 mg oral tablet: = 1 Tab, ORAL, BID, 0 Refill(s), Maintenance atorvastatin 80 mg oral tablet: = 1 Tab, ORAL, DAILY, 0 Refill(s), Maintenance cholecalciferol 1000 intl units oral tablet: = 1 Tab, ORAL, DAILY, 0 Refill(s), Maintenance digoxin 125 mcg (0.125 mg) oral tablet: = 1 Tab, ORAL, DAILY, 0 Refill(s), Maintenance docusate-senna 50 mg-8.6 mg oral capsule: 0 Refill(s), Maintenance furosemide 20 mg oral tablet: = 1 Tab, ORAL, DAILY, 0 Refill(s), Maintenance insulin lispro 100 units/mL injectable solution: correction scale, SUBQ, AC&Bed, 0 Refill(s), Maintenance lisinopril 10 mg oral tablet: = 1 Tab, ORAL, DAILY, 0 Refill(s), Maintenance metoprolol tartrate 25 mg oral tablet: = 1 Tab, ORAL, BID, 0 Refill(s), Maintenance tamsulosin 0.4 mg oral capsule: = 1 Cap, ORAL, QBedtime, 0 Refill(s), Maintenance, Medications (27) Active Scheduled: (17) albuterol-ipratrop 3-0.5 mg/3 mL Neb Soln 3 mL, INH, Q6H7 apixaban 5 mg Tab 5 mg 1 Tab, ORAL, BID atorvastatin 40 mg Tab 80 mg 2 Tab, ORAL, DAILY budesonide 0.5 mg/2 mL, 2 mL Inhal Susp 0.5 mg 2 mL, INH, Q12H ceFAZolin 2 g Inj 2 gm 1 Vial, IVPB, P2Y-Eholkzud cholecalciferol (D3) 25 mcg (1,000 IU) Tab 25 mcg 1 Tab, ORAL, DAILY digoxin 0.125 mg Tab 0.125 mg 1 Tab, ORAL, DAILY docusate sodium 100 mg Cap 100 mg 1 Cap, ORAL, BID furosemide 20 mg Tab 20 mg 1 Tab, ORAL, DAILY insulin regular (HumuLIN R) 100 units/mL, 3 mL MDV sliding scale, SUBQ, AC&Bed levETIRAcetam 500 mg Tab 500 mg 1 Tab, ORAL, BID lisinopril 10 mg Tab 10 mg 1 Tab, ORAL, DAILY magnesium Oxide 400 mg Tab 400 mg 1 Tab, ORAL, BIDMEALS metoprolol tartrate 50 mg Tab 50 mg 1 Tab, ORAL, BID nicotine 14 mg/day Patch 14 mg 1 Patch, TOP, DAILY pantoprazole 40 mg EC Tab 40 mg 1 Tab, ORAL, ACBkfst tamsulosin 0.4 mg Cap 0.4 mg 1 Cap, ORAL, QBedtime Continuous: (0) PRN: (10) acetaminophen 500 mg Tab 500 mg 1 ea, ORAL, Q6H albuterol-ipratrop 3-0.5 mg/3 mL Neb Soln 3 mL, INH, Q4H7 bisacodyl 5 mg EC Tab 5 mg 1 Tab, ORAL, DAILY Dextrose 50% Inj 50 mL Syr 25 mL, IV, As directed Dextrose 50% Inj 50 mL Syr 50 mL, IV, As directed glucagon 1 mg Inj SDV 1 mg, SUBQ, As directed Glucose 40% Oral Gel 15 gm 15 gm 37.5 mL, ORAL, As directed Milk of Magnesia 30 mL 30 mL, ORAL, DAILY traMADol 50 mg Tab 50 mg 1 Tab, ORAL, Q6H traMADol 50 mg Tab 100 mg 2 Tab, ORAL, Q6H Problem list: All Problems Anticoagulated by anticoagulation treatment / [id number] / Confirmed Bleeding / 402633708 / Provisional Blood sugar management / [id number] / Provisional Body mass index 30+ - obesity / 569057817 / Confirmed Current smoker / 937027002 / Confirmed Diabetes / 65443 / Confirmed Elevated serum cholesterol / [id number] [facility] / Confirmed Fall risk / [id number] / Provisional High blood pressure / [id number] / Confirmed Manage infection control / 9731075219 / Provisional Readiness for discharge / [id number] / Provisional TIA (transient ischemic attack) / [id number] / Confirmed, Active or Inactive Problems (5) Body mass index 30+ - obesity Diabetes Elevated serum cholesterol High blood pressure TIA (transient ischemic attack) Physical Examination Vital Signs (last 24 hrs) Last Charted Minimum Maximum Temp(?F) 98.4 (APR 08 07:26 PST) 98.4 (APR 07 19:17 PST) 98.4 (APR 07 19:17 PST) Heart Rate 75 (APR 08 16:03 PST) 66 (APR 08 07:05 PST) 92 (APR 07 19:17 PST) Resp Rate 18 (APR 08 16:03 PST) 18 (APR 08 07:10 PST) 20 (B 19:00 PST) SBP 120 (APR 08 16:03 PST) 120 (APR 08 16:03 PST) 134 (B 19:17 PST) DBP 75 (APR 08 16:03 PST) 66 (B 07:26 PST) 75 (B 16:03 PST) SpO2 95 (APR 08 18:23 PST) C 87 (APR 08 17:30 PST) 99 (APR 07 19:00 PST) OXYFIO2 21 (APR 08 13:53 PST) 21 (APR 07 19:00 PST) 92 (APR 08 01:26 PST) OXYFLOW 1 (APR 08 18:23 PST) 0 (B 19:00 PST) 2 (APR 08 02:10 PST) OXYDELIVERY Nasal cannula Room a Room a (APR 08 18:23 PST) (APR 07 19:17 PST) (APR 07 19:17 PST) Measurements from flowsheet : Measurements 04/08/2022 05:04 PST Weight (kg) 88.0 kg Weight measured method Bed scale 04/07/2022 06:[address] [facility] Weight (kg) 87.0 kg Weight measured method Bed scale General: Alert and oriented, No acute distress. Eye: Extraocular movements are intact. HENT: Normocephalic. Neck: Supple. Respiratory: Rales and coarse BL, decrease BS bases . Cardiovascular: Normal rate, Regular rhythm, Diastolc Murmur. Gastrointestinal: Soft, Non-tender, Non-distended, Normal bowel sounds. Genitourinary: No costovertebral angle tenderness, Blankenship in place . Musculoskeletal Normal range of motion. Normal strength. No tenderness. No swelling. Midline R upper arm. Integumentary: Warm. Neurologic: Alert, Oriented, Normal sensory, Normal motor function, No focal deficits, Cranial Nerves II-XII are grossly intact, Gag reflex normal. Psychiatric: Cooperative, Normal judgment, Non-suicidal. Review / Management Results review: Labs (Last four charted values) WBC 6.60 (B ) 7.00 (B 17) 7.40 (FEB 16) Hgb L 8.4 (B 19) L 8.4 (B 17) L 8.5 (FEB 16) Hct L 25.4 (B 19) L 25.3 (FEB 17) L 25.5 (FEB 16) Plt 362 (B 19) 327 (FEB 17) 337 (FEB 16) Na 138 (B 19) 136 (FEB 17) L 134 (FEB 16) K 4.5 (FEB 19) 4.5 (FEB 17) 4.0 (FEB 16) CO2 28 (B 19) 29 (FEB 17) 30 (FEB 16) Cl 103 (B 19) L 100 (FEB 17) L 99 (FEB 16) Cr 0.9 (FEB 19) 1.0 (FEB 17) 0.8 (FEB 16) BUN 12 (FEB 19) 20 (FEB 17) 15 (FEB 16) Glucose Random H 116 (B 19) 99 (FEB 17) H 121 (FEB 16) Mg L 1.7 (MAR 16) Ca L 8.1 (MAR 19) L 8.2 (MAR 17) L 8.2 (MAR 16) . Impression and Plan 1. Weakness: Swing bed, PT, OT, fall precautions. 2. TIA: On Eliquis, need ASA, cont Lipitor, patient presented with signs/symptoms of CVA, CT head was negative for hemorrhagic stroke - Neurology recommended tPA. Subsequent MRI brain was negative for stroke, CT H&N angio was negative, Echo with bubble was negative. 3. New onset AFib: Currently in NSR, Cont Metoprolol and Digoxin and follow up as outpatient, cont Eliquis. 4. Urinary retention: On Blankenship, start Bladder training with new parameters. Nurse informed for bladder scanning. Cont Flomax. 5. Seizure like activity: CT and MRI brain were negative for acute process, Cont Santosh, scheduled for EEG on 04/10/22, will follow up with Neurology. 6. MSSA and E faecalis bacteremia: Cont Ancef until 04/10/22. 7. COPD: Chronic, not on exacerbation, need O2 at night, Cont Budesonide and Duoneb treatments, may need Home O2 nocturnal. 8. HTN: Cont Lisinopril and Metoprolol. 9. Pre-diabetes: Cont Insulin sliding scale. 10. HLD: Cont Lipitor 11. Smoking: Nicotine patch and counseling done. 12. 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 13. DVT, GI PPX 14. Code: Full 15. Dispo: In PT Swing [id number] Male 04/09/2022 [facility] Hospitalist Progress Note Patient: SHERRON SURESH ? Age: 76 years?Legal Sex: MALE?: 1945 Date of Service 04/07/22 Hospital Course 76M with HTN, HLD, smoker, COPD, pre-diabetes, S/P carotid endarterectomy 02/21/22, is admitted for IV antibiotics and rehab after acute treatment for TIA (treated with tPA), MSSA bacteremia, new onset AFib, seizure, urinary retention Subjective No new concerns today Objective Vitals and Measurements T: 97.6 F HR: 84(Apical) HR: 66 RR: 18 BP: 133/75 SpO2: 96% O2 Delivery: Nasal cannula O2 Flow: 1L/min FiO2: 28% HT:?180.34 cm?WT:?87.0 kg?BMI:?26.54 kg/m2 Intake and Output?as of :15 (24 hour periods starting at 06:00) ? 04/07/22 04/06/22 04/05/22 Intake mL ?? 1380 ?? 2205 ?? 2810 Output mL ?? 1800 ?? 3900 ?? 6000 Fluid Balance ?? -420 ??-1695 ??-3190 Physical Exam General: ?Alert and oriented, No acute distress. ? HENT: ?Normocephalic. ? Neck: ?Supple, Non-tender. ? Respiratory: ?Respirations are non-labored, Breath sounds are equal. ? Cardiovascular: ?Normal rate, No edema. ? Gastrointestinal: ?Soft, Non-tender, Non-distended. ? Integumentary: ?Warm, Dry. ? Neurologic: ?Alert, Oriented. ? Psychiatric: ?Cooperative. ? Inpatient Medications Scheduled: albuterol-ipratrop 3-0.5 mg/3 mL Neb Soln ?3 mL, INH, Q6H7 apixaban 5 mg Tab ?5 mg 1 Tab, ORAL, BID atorvastatin 40 mg Tab ?80 mg 2 Tab, ORAL, DAILY budesonide 0.5 mg/2 mL, 2 mL Inhal Susp ?0.5 mg 2 mL, INH, Q12H ceFAZolin 2 g Inj ?2 gm 1 Vial, IVPB, D1K-Hbruzyqh cholecalciferol (D3) 25 mcg (1,000 IU) Tab ?25 mcg 1 Tab, ORAL, DAILY digoxin 0.125 mg Tab ?0.125 mg 1 Tab, ORAL, DAILY docusate sodium 100 mg Cap ?100 mg 1 Cap, ORAL, BID furosemide 20 mg Tab ?20 mg 1 Tab, ORAL, DAILY insulin regular (HumuLIN R) 100 units/mL, 3 mL MDV ?sliding scale, SUBQ, AC&Bed levETIRAcetam 500 mg Tab ?500 mg 1 Tab, ORAL, BID lisinopril 10 mg Tab ?10 mg 1 Tab, ORAL, DAILY magnesium Oxide 400 mg Tab ?400 mg 1 Tab, ORAL, BIDMEALS metoprolol tartrate 50 mg Tab ?50 mg 1 Tab, ORAL, BID nicotine 14 mg/day Patch ?14 mg 1 Patch, TOP, DAILY pantoprazole 40 mg EC Tab ?40 mg 1 Tab, ORAL, ACBkfst tamsulosin 0.4 mg Cap ?0.4 mg 1 Cap, ORAL, QBedtime ? Continuous: ? PRN: acetaminophen 500 mg Tab ?500 mg 1 ea, ORAL, Q6H albuterol-ipratrop 3-0.5 mg/3 mL Neb Soln ?3 mL, INH, Q4H7 bisacodyl 5 mg EC Tab ?5 mg 1 Tab, ORAL, DAILY Dextrose 50% Inj 50 mL Syr ?25 mL, IV, As directed Dextrose 50% Inj 50 mL Syr ?50 mL, IV, As directed glucagon 1 mg Inj SDV ?1 mg, SUBQ, As directed Glucose 40% Oral Gel 15 gm ?15 gm 37.5 mL, ORAL, As directed Milk of Magnesia 30 mL ?30 mL, ORAL, DAILY traMADol 50 mg Tab ?50 mg 1 Tab, ORAL, Q6H traMADol 50 mg Tab ?100 mg 2 Tab, ORAL, Q6H Lab Results ? Labs All 24H ?Lab ?Results ?Date POCT - Glucose (Capillary)? 112 mg/dL? (HIGH)? 04/07/22 11:01 PST Assessment/Plan _ Acute respiratory failure with hypoxia (Acute respiratory failure with hypoxia, J96.01) Anemia (Anemia, unspecified, D64.9) Atrial fibrillation with RVR (Unspecified atrial fibrillation, I48.91) COPD without exacerbation (Chronic obstructive pulmonary disease, unspecified, J44.9) Effusion of right knee joint (Effusion, right knee, M25.461) Generalized weakness (Weakness, R53.1) History of TIA (transient ischemic attack) (Personal history of transient ischemic attack (TIA), and cerebral infarction without residual deficits, Z86.73) Hyperglycemia (Hyperglycemia, unspecified, R73.9) MSSA bacteremia (Bacteremia, R78.81) Prediabetes (Prediabetes, R73.03) Right knee pain (Pain in right knee, M25.561) Seizure (Unspecified convulsions, R56.9) Tobacco abuse (Tobacco use, Z72.0) Urinary catheter present (Presence of urogenital implants, Z96.0) Urine retention (Retention of urine, unspecified, R33.9) 1.??Generalized weakness - S/P?treatment for TIA, MSSA bacteremia, new onset AFib - for PT/OT ? 2.? TIA - patient presented with signs/symptoms of CVA - CT head was negative for hemorrhagic stroke - Neurology recommended tPA. Subsequent MRI brain was negative for stroke, CT angio was negative for hemodynamically significant stenosis in the head and neck. Echo with bubble study was negative for cardiac source of thrombus and negative for vegetations. - dual antiplatelet agents were discontinued as per Neurology ? 3.? New onset AFib - currently in NSR, HR is controlled -?Cardiology recommended metoprolol and digoxin and follow up?as outpatient - he is on Eliquis ? 4.? Urinary retention - patient was thought to have traumatic urinary catheterization and developed urinary retention then failed bladder training?so will be discharged with Blankenship and follow up with Urology - he is on tamsulosin ? 5.? Seizure like activity -?CT and MRI brain were negative for acute process - he was started on Keppra - patient has been scheduled for EEG on 04/10/22 - will follow up with Neurology ? 6.? MSSA and E faecalis bacteremia - patient is on Ancef until 04/10/22 ? 7. COPD - stable on budesonide and Duoneb treatments ? 8.? HTN - controlled on lisinopril and metoprolol ? 9.? Pre-diabetes - on insulin sliding scale ? 10.? GI and DVT prophylaxis ? 11.? Full code ? 12.? Swing bed - over-all patient is improving and is for potential discharge on 04/10/22 which is last day of antibiotics Electronically signed by: MD Betsy, Ulises Bauman Signed on: 07-Apr-2022 14:17 PST 04/07/2022 58 [facility] Hospitalist Progress Note Patient: SHERRON SURESH Age: 76 years Legal Sex: MALE : 1945 Date of Service 04/07/22 Hospital Course 76M with HTN, HLD, smoker, COPD, pre-diabetes, S/P carotid endarterectomy 02/21/22, is admitted for IV antibiotics and rehab after acute treatment for TIA (treated with tPA), MSSA bacteremia, new onset AFib, seizure, urinary retention Subjective No new concerns today Objective Vitals and Measurements T: 97.6 F HR: 84(Apical) HR: 66 RR: 18 BP: 133/75 SpO2: 96% O2 Delivery: Nasal cannula O2 Flow: 1L/min FiO2: 28% HT: 180.34 cm WT: 87.0 kg BMI: 26.54 kg/m2 Intake and Output as of 14:15 (24 hour periods starting at 06:00) 04/07/22 04/06/22 04/05/22 Intake mL 1380 2205 2810 Output mL 1800 3900 6000 Fluid Balance -421 -5133 -1608 Physical Exam General: Alert and oriented, No acute distress. HENT: Normocephalic. Neck: Supple, Non-tender. Respiratory: Respirations are non-labored, Breath sounds are equal. Cardiovascular: Normal rate, No edema. Gastrointestinal: Soft, Non-tender, Non-distended. Integumentary: Warm, Dry. Neurologic: Alert, Oriented. Psychiatric: Cooperative. Inpatient Medications Scheduled: albuterol-ipratrop 3-0.5 mg/3 mL Neb Soln 3 mL, INH, Q6H7 apixaban 5 mg Tab 5 mg 1 Tab, ORAL, BID atorvastatin 40 mg Tab 80 mg 2 Tab, ORAL, DAILY budesonide 0.5 mg/2 mL, 2 mL Inhal Susp 0.5 mg 2 mL, INH, Q12H ceFAZolin 2 g Inj 2 gm 1 Vial, IVPB, A4L-Uvzoarvs cholecalciferol (D3) 25 mcg (1,000 IU) Tab 25 mcg 1 Tab, ORAL, DAILY digoxin 0.125 mg Tab 0.125 mg 1 Tab, ORAL, DAILY docusate sodium 100 mg Cap 100 mg 1 Cap, ORAL, BID furosemide 20 mg Tab 20 mg 1 Tab, ORAL, DAILY insulin regular (HumuLIN R) 100 units/mL, 3 mL MDV sliding scale, SUBQ, AC&Bed levETIRAcetam 500 mg Tab 500 mg 1 Tab, ORAL, BID lisinopril 10 mg Tab 10 mg 1 Tab, ORAL, DAILY magnesium Oxide 400 mg Tab 400 mg 1 Tab, ORAL, BIDMEALS metoprolol tartrate 50 mg Tab 50 mg 1 Tab, ORAL, BID nicotine 14 mg/day Patch 14 mg 1 Patch, TOP, DAILY pantoprazole 40 mg EC Tab 40 mg 1 Tab, ORAL, ACBkfst tamsulosin 0.4 mg Cap 0.4 mg 1 Cap, ORAL, QBedtime Continuous: PRN: acetaminophen 500 mg Tab 500 mg 1 ea, ORAL, Q6H albuterol-ipratrop 3-0.5 mg/3 mL Neb Soln 3 mL, INH, Q4H7 bisacodyl 5 mg EC Tab 5 mg 1 Tab, ORAL, DAILY Dextrose 50% Inj 50 mL Syr 25 mL, IV, As directed Dextrose 50% Inj 50 mL Syr 50 mL, IV, As directed glucagon 1 mg Inj SDV 1 mg, SUBQ, As directed Glucose 40% Oral Gel 15 gm 15 gm 37.5 mL, ORAL, As directed Milk of Magnesia 30 mL 30 mL, ORAL, DAILY traMADol 50 mg Tab 50 mg 1 Tab, ORAL, Q6H traMADol 50 mg Tab 100 mg 2 Tab, ORAL, Q6H Lab Results Labs All 24H Lab Results Date POCT - Glucose (Capillary) 112 mg/dL (HIGH) 04/07/22 11:01 PST Assessment/Plan _ Acute respiratory failure with hypoxia (Acute respiratory failure with hypoxia, J96.01) Anemia (Anemia, unspecified, D64.9) Atrial fibrillation with RVR (Unspecified atrial fibrillation, I48.91) COPD without exacerbation (Chronic obstructive pulmonary disease, unspecified, J44.9) Effusion of right knee joint (Effusion, right knee, M25.461) Generalized weakness (Weakness, R53.1) History of TIA (transient ischemic attack) (Personal history of transient ischemic attack (TIA), and cerebral infarction without residual deficits, Z86.73) Hyperglycemia (Hyperglycemia, unspecified, R73.9) MSSA bacteremia (Bacteremia, R78.81) Prediabetes (Prediabetes, R73.03) Right knee pain (Pain in right knee, M25.561) Seizure (Unspecified convulsions, R56.9) Tobacco abuse (Tobacco use, Z72.0) Urinary catheter present (Presence of urogenital implants, Z96.0) Urine retention (Retention of urine, unspecified, R33.9) 1. Generalized weakness - S/P treatment for TIA, MSSA bacteremia, new onset AFib - for PT/OT 2. TIA - patient presented with signs/symptoms of CVA - CT head was negative for hemorrhagic stroke - Neurology recommended tPA. Subsequent MRI brain was negative for stroke, CT angio was negative for hemodynamically significant stenosis in the head and neck. Echo with bubble study was negative for cardiac source of thrombus and negative for vegetations. - dual antiplatelet agents were discontinued as per Neurology 3. New onset AFib - currently in NSR, HR is controlled - Cardiology recommended metoprolol and digoxin and follow up as outpatient - he is on Eliquis 4. Urinary retention - patient was thought to have traumatic urinary catheterization and developed urinary retention then failed bladder training so will be discharged with Blankenship and follow up with Urology - he is on tamsulosin 5. Seizure like activity - CT and MRI brain were negative for acute process - he was started on Keppra - patient has been scheduled for EEG on 04/10/22 - will follow up with Neurology 6. MSSA and E faecalis bacteremia - patient is on Ancef until 04/10/22 7. COPD - stable on budesonide and Duoneb treatments 8. HTN - controlled on lisinopril and metoprolol 9. Pre-diabetes - on insulin sliding scale 10. GI and DVT prophylaxis 11. Full code 12. Swing bed - over-all patient is improving and is for potential discharge on 04/10/22 which is last day of antibiotics [id number] Male 04/07/2022 [facility] Hospitalist Progress Note Patient: SHERRON SURESH Age: 76 years Legal Sex: MALE : 1945 Date of Service 04/06/22 Hospital Course 76M with HTN, HLD, smoker, COPD, pre-diabetes, S/P carotid endarterectomy 02/21/22, is admitted for IV antibiotics and rehab after acute treatment for TIA (treated with tPA), MSSA bacteremia, new onset AFib, seizure, urinary retention Subjective Patient has no new concerns today Objective Vitals and Measurements T: 98.3 F HR: 64(Apical) HR: 81 RR: 18 BP: 140/76 SpO2: 97% O2 Delivery: Nasal cannula O2 Flow: 2L/min FiO2: 28% HT: 180.34 cm WT: 90.9 kg BMI: 26.54 kg/m2 Intake and Output as of 11:27 (24 hour periods starting at 06:00) 04/06/22 04/05/22 04/04/22 Intake mL 0 2810 2940 Output mL 250 6000 4400 Fluid Balance -[phone] Physical Exam . General: Alert and oriented, No acute distress. HENT: Normocephalic. Neck: Supple, Non-tender. Respiratory: Respirations are non-labored, Breath sounds are equal. Cardiovascular: Normal rate, No edema. Gastrointestinal: Soft, Non-tender, Non-distended. Integumentary: Warm, Dry. Neurologic: Alert, Oriented. Psychiatric: Cooperative. Inpatient Medications Scheduled: albuterol-ipratrop 3-0.5 mg/3 mL Neb Soln 3 mL, INH, Q6H7 apixaban 5 mg Tab 5 mg 1 Tab, ORAL, BID atorvastatin 40 mg Tab 80 mg 2 Tab, ORAL, DAILY budesonide 0.5 mg/2 mL, 2 mL Inhal Susp 0.5 mg 2 mL, INH, Q12H ceFAZolin 2 g Inj 2 gm 1 Vial, IVPB, [id number]-Ppmoihbe cholecalciferol (D3) 25 mcg (1,000 IU) Tab 25 mcg 1 Tab, ORAL, DAILY digoxin 0.125 mg Tab 0.125 mg 1 Tab, ORAL, DAILY docusate sodium 100 mg Cap 100 mg 1 Cap, ORAL, BID furosemide 20 mg Tab 20 mg 1 Tab, ORAL, DAILY insulin regular (HumuLIN R) 100 units/mL, 3 mL MDV sliding scale, SUBQ, AC&Bed levETIRAcetam 500 mg Tab 500 mg 1 Tab, ORAL, BID lisinopril 10 mg Tab 10 mg 1 Tab, ORAL, DAILY magnesium Oxide 400 mg Tab 400 mg 1 Tab, ORAL, BIDMEALS metoprolol tartrate 50 mg Tab 50 mg 1 Tab, ORAL, BID nicotine 14 mg/day Patch 14 mg 1 Patch, TOP, DAILY pantoprazole 40 mg EC Tab 40 mg 1 Tab, ORAL, ACBkfst tamsulosin 0.4 mg Cap 0.4 mg 1 Cap, ORAL, QBedtime Continuous: PRN: acetaminophen 500 mg Tab 500 mg 1 ea, ORAL, Q6H albuterol-ipratrop 3-0.5 mg/3 mL Neb Soln 3 mL, INH, Q4H7 bisacodyl 5 mg EC Tab 5 mg 1 Tab, ORAL, DAILY Dextrose 50% Inj 50 mL Syr 25 mL, IV, As directed Dextrose 50% Inj 50 mL Syr 50 mL, IV, As directed glucagon 1 mg Inj SDV 1 mg, SUBQ, As directed Glucose 40% Oral Gel 15 gm 15 gm 37.5 mL, ORAL, As directed Milk of Magnesia 30 mL 30 mL, ORAL, DAILY traMADol 50 mg Tab 50 mg 1 Tab, ORAL, Q6H traMADol 50 mg Tab 100 mg 2 Tab, ORAL, Q6H Lab Results Labs All 24H Lab Results Date POCT - Glucose (Capillary) 118 mg/dL (HIGH) 04/05/22 16:09 PST Assessment/Plan _ Acute respiratory failure with hypoxia (Acute respiratory failure with hypoxia, J96.01) Anemia (Anemia, unspecified, D64.9) Atrial fibrillation with RVR (Unspecified atrial fibrillation, I48.91) COPD without exacerbation (Chronic obstructive pulmonary disease, unspecified, J44.9) Effusion of right knee joint (Effusion, right knee, M25.461) Generalized weakness (Weakness, R53.1) History of TIA (transient ischemic attack) (Personal history of transient ischemic attack (TIA), and cerebral infarction without residual deficits, Z86.73) Hyperglycemia (Hyperglycemia, unspecified, R73.9) MSSA bacteremia (Bacteremia, R78.81) Prediabetes (Prediabetes, R73.03) Right knee pain (Pain in right knee, M25.561) Seizure (Unspecified convulsions, R56.9) Tobacco abuse (Tobacco use, Z72.0) Urinary catheter present (Presence of urogenital implants, Z96.0) Urine retention (Retention of urine, unspecified, R33.9) 1. Generalized weakness - S/P treatment for TIA, MSSA bacteremia, new onset AFib - for PT/OT 2. TIA - patient presented with signs/symptoms of CVA - CT head was negative for hemorrhagic stroke - Neurology recommended tpA. Subsequent MRI brain was negative for stroke, CT angio was negative for hemodynamically significant stenosis in the head and neck. Echo with bubble study was negative for cardiac source of thrombus and negative for vegetations. - dual antiplatelet agents were discontinued as per Neurology 3. New onset AFib - currently in NSR, HR is controlled - Cardiology recommended metoprolol and digoxin and follow up as outpatient - he is on Eliquis 4. Urinary retention - patient was thought to have traumatic urinary catheterization and developed urinary retention then failed bladder training so will be discharged with Blankenship and follow up with Urology - he is on tamsulosin 5. Seizure like activity - CT and MRI brain were negative for acute process - he was started on Keppra - patient has been scheduled for EEG on 04/10/22 - will follow up with Neurology 6. MSSA and E faecalis bacteremia - patient is on Ancef until 04/10/22 7. COPD - stable on budesonide and Duoneb treatments 8. HTN - controlled on lisinopril and metoprolol 9. Pre-diabetes - on insulin sliding scale 10. GI and DVT prophylaxis 11. Full code 12. Swing bed - over-all patient is improving and is for potential discharge on 04/10/22 which is last day of antibiotics [id number] Male 04/06/2022 [facility] Progress Note Patient: SHERRON SURESH Age: 76 years Legal Sex: Male : 1945 Author: MD Begum Swapna Review of Systems Constitutional: No fever, No chills. Respiratory: No shortness of breath, No cough. Cardiovascular: Negative. Gastrointestinal: Negative. Neurologic: Alert and oriented X4. Psychiatric: Negative. All other systems are negative Health Status Current medications: Home Medications (10) Active atorvastatin 80 mg oral tablet 80 mg = 1 Tab, ORAL, DAILY (Documented 03/07/22) cholecalciferol 1000 intl units oral tablet 25 mcg = 1 Tab, ORAL, DAILY (Documented 03/07/22) digoxin 125 mcg (0.125 mg) oral tablet 0.125 mg = 1 Tab, ORAL, DAILY (Documented 03/20/22) docusate-senna 50 mg-8.6 mg oral capsule (Documented 03/07/22) Eliquis 5 mg oral tablet 5 mg = 1 Tab, ORAL, BID (Documented 03/20/22) furosemide 20 mg oral tablet 20 mg = 1 Tab, ORAL, DAILY (Documented 03/07/22) insulin lispro 100 units/mL injectable solution correction scale, SUBQ, AC&Bed (Documented 03/26/22) lisinopril 10 mg oral tablet 10 mg = 1 Tab, ORAL, DAILY (Documented 03/20/22) metoprolol tartrate 25 mg oral tablet 25 mg = 1 Tab, ORAL, BID (Documented 03/20/22) tamsulosin 0.4 mg oral capsule 0.4 mg = 1 Cap, ORAL, QBedtime (Documented 03/07/22) , Active inpatient medications ACTIVE INPT MEDS: albuterol-ipratropium (DuoNeb) 3 mL INH Q6H7 apixaban (Eliquis) 5 mg ORAL BID atorvastatin 80 mg ORAL DAILY budesonide (budesonide 0.25 mg/2 mL Inhal Susp) 0.5 mg INH Q12H ceFAZolin (Ancef) 2 gm IVPB [id number] cholecalciferol 25 mcg ORAL DAILY digoxin 0.125 mg ORAL DAILY docusate 100 mg ORAL BID furosemide 20 mg ORAL DAILY insulin regular (insulin regular Sliding Scale Med (Body wt 70-100kg)) SUBQ AC&Bed levETIRAcetam (Keppra) 500 mg ORAL BID lisinopril 10 mg ORAL DAILY magnesium oxide 400 mg ORAL BIDMEALS metoprolol (Metoprolol Tartrate) 50 mg ORAL BID nicotine (nicotine 14 mg/day Patch) 14 mg TOP DAILY pantoprazole 40 mg ORAL ACBkfst tamsulosin 0.4 mg ORAL QBedtime ACTIVE PRN MEDS: acetaminophen 500 mg ORAL Q6H albuterol-ipratropium (DuoNeb) 3 mL INH Q4H7 bisacodyl 5 mg ORAL DAILY glucagon 1 mg SUBQ As directed glucose (Dextrose 50% Inj 50 mL) 25 mL IV As directed glucose (Dextrose 50% Inj 50 mL) 50 mL IV As directed glucose (glucose 40% oral gel) 15 gm ORAL As directed magnesium hydroxide 30 mL ORAL DAILY traMADol 50 mg ORAL Q6H traMADol 100 mg ORAL Q6H ONE TIME MEDS: None ACTIVE IV MEDS: None Problem List: Problem List Active or Inactive Problems (5) Body mass index 30+ - obesity Diabetes Elevated serum cholesterol High blood pressure TIA (transient ischemic attack) Physical Examination Intake and Output Intake and Output Fluid Balance Intake and Output as of 08:13 (24 hour periods starting at 06:00) 04/05/22 04/04/22 04/03/22 Intake mL 320 2940 5157 Output mL 0 4400 5475 Fluid Balance [phone] VS/Measurements: Inpt. Vital signs (ST) Vital Signs (last 24 hrs) Last Charted Minimum Maximum Temp(?F) 97.0 (FEB 07:32 PST) 97.0 (FEB 07:32 PST) 97.5 (FEB 19:27 PST) Heart Rate 78 (B 07:34 PST) 64 (B 01:06 PST) H 100 (FEB 08:17 PST) Resp Rate 16 (B 07:34 PST) 16 (FEB 07:17 PST) 20 (FEB 18:52 PST) SBP H 142 (B 07:32 PST) H 142 (B 07:32 PST) H 154 (FEB 09:07 PST) DBP 74 (FEB 07:32 PST) 69 (FEB 09:07 PST) 79 (FEB 19:27 PST) SpO2 98 (B 07:34 PST) 95 (FEB 09:07 PST) 100 (FEB 00:58 PST) OXYFIO2 28 (FEB 01:06 PST) 28 (FEB 18:52 PST) 28 (FEB 18:52 PST) OXYFLOW 2 (B 07:34 PST) 2 (FEB 09:07 PST) 2 (FEB 09:07 PST) OXYDELIVERY Nasal cannula Nasal Nasal (B 07:17 PST) (FEB 09:07 PST) (FEB 09:07 PST) . General: Alert and oriented, No acute distress. HENT: Normocephalic. Neck: Supple, Non-tender. Respiratory: Respirations are non-labored, Breath sounds are equal. Cardiovascular: Normal rate, No edema. Gastrointestinal: Soft, Non-tender, Non-distended. Integumentary: Warm, Dry. Neurologic: Alert, Oriented. Psychiatric: Cooperative. Review / Management Laboratory Results Labs (Last four charted values) WBC 6.60 (MAR 31) 7.00 (B 17) 7.40 (B 16) Hgb L 8.4 (MAR 19) L 8.4 (B 17) L 8.5 (B 16) Hct L 25.4 (B 19) L 25.3 (B 17) L 25.5 (B 16) Plt 362 (B ) 327 (B 17) 337 (B 16) Na 138 (MAR 19) 136 (B 17) L 134 (B 16) K 4.5 (MAR 31) 4.5 (MAR 17) 4.0 (MAR 16) CO2 28 (MAR 31) 29 (MAR 17) 30 (MAR 16) Cl 103 (MAR 31) L 100 (MAR 17) L 99 (B 16) Cr 0.9 (MAR 31) 1.0 (MAR 17) 0.8 (MAR 16) BUN 12 (MAR 31) 20 (B 17) 15 (B 16) Glucose Random H 116 (MAR 31) 99 (MAR 17) H 121 (MAR 16) Mg L 1.7 (MAR 16) Ca L 8.1 (MAR 31) L 8.2 (MAR 17) L 8.2 (MAR 16) Cultures Results: Culture Results Culture MRSA Screen Final - March 06 2022 08:17:11 PST No MRSA (Methicillin Resistant Staph Aureus) [place] [address] [facility] [facility] Laborer: Demond Mccoy MD Cult Blood Final - March 13 2022 11:23:54 PST Citrobacter koseri Staphylococcus aureus Enterococcus faecalis In 2 of 2 sets drawn [place] [address] [facility] [facility] Laborer: Demond Mccoy MD Final - March 13 2022 11:25:51 PST Citrobacter koseri Staphylococcus aureus Enterococcus faecalis Please refer to accession #[id number] for sensitivities. In 2 of 2 sets drawn [place] [address] [employer] [facility] Laborer: Demond Mccoy MD Culture Urine Final - March 14 2022 06:28:27 PST >100,000 cfu/ml Klebsiella oxytoca <10,000 cfu/ml Citrobacter koseri [place] [address] [employer] [facility] Laborer: Demond Mccoy MD Cult Blood Final - March 17 2022 14:02:02 PST No growth at 5 days. Final - March 16 2022 08:10:37 PST Staphylococcus [place] [address] [employer] [facility] Laborer: Demond Mccoy MD Final - March 19 2022 06:01:34 PST No growth at 5 days. No growth at 5 days. Final - March 20 2022 14:01:57 PST No growth at 5 days. Final - March 20 2022 14:01:58 PST No growth at 5 days. Final - March 26 2022 20:01:44 PST No growth at 5 days. No growth at 5 days. . Impression and Plan Diagnosis: Active Diagnoses Anemia (Anemia, unspecified) Effusion of right knee joint (Effusion, right knee) Acute respiratory failure with hypoxia (Acute respiratory failure with hypoxia) Tobacco abuse (Tobacco use) COPD without exacerbation (Chronic obstructive pulmonary disease, unspecified) Right knee pain (Pain in right knee) Hyperglycemia (Hyperglycemia, unspecified) Prediabetes (Prediabetes) History of TIA (transient ischemic attack) (Personal history of transient ischemic attack (TIA), and cerebral infarction without residual deficits) Urinary catheter present (Presence of urogenital implants) Urine retention (Retention of urine, unspecified) Atrial fibrillation with RVR (Unspecified atrial fibrillation) Seizure (Unspecified convulsions) MSSA bacteremia (Bacteremia) Generalized weakness (Weakness) . Course: Improving, Progressing as expected, stepson at bedside. Plan: 76-year-old male with hypertension, hyperlipidemia, chronic ex-smoker, newly diagnosed type II DM, ?history of TIA's, carotid endarterectomy (elective, 02/21/2022) BIBA to the ED with c/o AMS (GCS 8/15 on presentation) and admitted due to the possibility of acute stroke. Vital signs were significant for Tachycardia (144bpm) and ECG showed new onset Afib with RVR. CT brain was -ve for hemorrhagic stroke. Pt was given tPA in ED as per recs of Neurologist. CT angio was -ve for hemodynamically significant stenosis in head and neck. Pt was transferred to ICU on 03/04, MRI brain (03/06) was negative for acute stroke and downgraded on 03/07. During the course of ICU stay , pt stayed AAOX3. ECHO without bubble study was -ve for evidence of cardiac source thrombus, negative for vegetations and EF 60%. Dual antiplatelet agents were dc'd as per recs of Neuro. Cardio (Dr. Chang) was consulted who recommended Metoprolol and digoxin for Afib and outpt f/u. Pt had a ?traumatic urinary catheterization and later had a MSSA and gram -ve bacteremia. ID was consulted and pt was started on Unasyn and later switched to Ancef with Midline and goal to complete abx treatment (04/10/22). Repeat cultures are negative till date. Pt had a rapid response on 03/20/22 based on seizure like activity (eyes rolled back, non responsive, body stiffness). Lactic acid was elevated to 5.4. CT scan brain was done and negative for acute findings. Pt stayed in ICU for observation without intubation and later downgraded on 03/21/22 and care transitioned to the residency team. Pt says that he does not recall the seizures/event. Denies tongue bite, fecal incontinence and prior hx of seizures in the past. MRI brain w/wo contrast negative for lesion/stroke. Repeat cultures negative till date. Pt has urinary cath in place due to urinary retention after failed attempt to dc blankenship's, pt to f/u with urologist outpt. was seen by [facility] initially. the team Spoke with Dr. Cagle 03/25, recommendations - continue Keppra and follow up outpatient, on iv abxs until 04/10/22 PT/OT. [id number] Male 04/05/2022 [facility] Progress Note Patient: SHERRON SURESH Age: 76 years Legal Sex: Male : 1945 Author: MD Shy, Niyah Review of Systems Constitutional: No fever, No chills. Respiratory: No shortness of breath, No cough. Cardiovascular: Negative. Gastrointestinal: Negative. Neurologic: Alert and oriented X4. Psychiatric: Negative. All other systems are negative Health Status Current medications: Home Medications (10) Active atorvastatin 80 mg oral tablet 80 mg = 1 Tab, ORAL, DAILY (Documented 03/07/22) cholecalciferol 1000 intl units oral tablet 25 mcg = 1 Tab, ORAL, DAILY (Documented 03/07/22) digoxin 125 mcg (0.125 mg) oral tablet 0.125 mg = 1 Tab, ORAL, DAILY (Documented 03/20/22) docusate-senna 50 mg-8.6 mg oral capsule (Documented 03/07/22) Eliquis 5 mg oral tablet 5 mg = 1 Tab, ORAL, BID (Documented 03/20/22) furosemide 20 mg oral tablet 20 mg = 1 Tab, ORAL, DAILY (Documented 03/07/22) insulin lispro 100 units/mL injectable solution correction scale, SUBQ, AC&Bed (Documented 03/26/22) lisinopril 10 mg oral tablet 10 mg = 1 Tab, ORAL, DAILY (Documented 03/20/22) metoprolol tartrate 25 mg oral tablet 25 mg = 1 Tab, ORAL, BID (Documented 03/20/22) tamsulosin 0.4 mg oral capsule 0.4 mg = 1 Cap, ORAL, QBedtime (Documented 03/07/22) , Active inpatient medications ACTIVE INPT MEDS: albuterol-ipratropium (DuoNeb) 3 mL INH Q6H7 apixaban (Eliquis) 5 mg ORAL BID atorvastatin 80 mg ORAL DAILY budesonide (budesonide 0.25 mg/2 mL Inhal Susp) 0.5 mg INH Q12H ceFAZolin (Ancef) 2 gm IVPB [id number] cholecalciferol 25 mcg ORAL DAILY digoxin 0.125 mg ORAL DAILY docusate 100 mg ORAL BID furosemide 20 mg ORAL DAILY insulin regular (insulin regular Sliding Scale Med (Body wt 70-100kg)) SUBQ AC&Bed levETIRAcetam (Keppra) 500 mg ORAL BID lisinopril 10 mg ORAL DAILY magnesium oxide 400 mg ORAL BIDMEALS metoprolol (Metoprolol Tartrate) 50 mg ORAL BID nicotine (nicotine 14 mg/day Patch) 14 mg TOP DAILY pantoprazole 40 mg ORAL ACBkfst tamsulosin 0.4 mg ORAL QBedtime ACTIVE PRN MEDS: acetaminophen 500 mg ORAL Q6H albuterol-ipratropium (DuoNeb) 3 mL INH Q4H7 bisacodyl 5 mg ORAL DAILY glucagon 1 mg SUBQ As directed glucose (Dextrose 50% Inj 50 mL) 25 mL IV As directed glucose (Dextrose 50% Inj 50 mL) 50 mL IV As directed glucose (glucose 40% oral gel) 15 gm ORAL As directed magnesium hydroxide 30 mL ORAL DAILY traMADol 50 mg ORAL Q6H traMADol 100 mg ORAL Q6H ONE TIME MEDS: None ACTIVE IV MEDS: None Problem List: Problem List Active or Inactive Problems (5) Body mass index 30+ - obesity Diabetes Elevated serum cholesterol High blood pressure TIA (transient ischemic attack) Physical Examination VS/Measurements: Vital signs from flowsheet : Vital Signs 04/04/2022 07:26 PST Peripheral Pulse Rate 72 bpm Normal Peripheral Pulse Rate 72 bpm Normal Respiratory rate 20 br/min Normal Respiratory rate 20 br/min Normal Pulse Oximetry 99 % Pulse Oximetry 99 % Pulse Oximetry 99 % Oxygen delivery Nasal cannula Oxygen flow 2 L/min Oxygen flow 2 L/min Peripheral pulse site Pulse oximetry device Peripheral pulse site Pulse oximetry device . General: Alert and oriented, No acute distress. HENT: Normocephalic. Neck: Supple, Non-tender. Respiratory: Respirations are non-labored, Breath sounds are equal. Cardiovascular: Normal rate, No edema. Gastrointestinal: Soft, Non-tender, Non-distended. Integumentary: Warm, Dry. Neurologic: Alert, Oriented. Psychiatric: Cooperative. Review / Management Laboratory Results Labs (Last four charted values) WBC 6.60 (MAR 31) 7.00 (MAR 29) 7.40 (MAR 28) Hgb L 8.4 (MAR 31) L 8.4 (MAR 29) L 8.5 (MAR 28) Hct L 25.4 (MAR 31) L 25.3 (MAR 29) L 25.5 (MAR 28) Plt 362 (MAR 31) 327 (MAR 29) 337 (MAR 28) Na 138 (MAR 31) 136 (MAR 29) L 134 (MAR 28) K 4.5 (MAR 31) 4.5 (MAR 29) 4.0 (MAR 28) CO2 28 (MAR 31) 29 (MAR 29) 30 (MAR 28) Cl 103 (MAR 31) L 100 (MAR 29) L 99 (MAR 28) Cr 0.9 (MAR 31) 1.0 (MAR 29) 0.8 (MAR 28) BUN 12 (MAR 31) 20 (MAR 29) 15 (MAR 28) Glucose Random H 116 (MAR 31) 99 (MAR 29) H 121 (MAR 28) Mg L 1.7 (MAR 28) Ca L 8.1 (MAR 31) L 8.2 (MAR 29) L 8.2 (MAR 28) Cultures Results: Culture Results Culture MRSA Screen Final - March 06 2022 08:17:11 PST No MRSA (Methicillin Resistant Staph Aureus) [place] [address] [employer] Laborer: Demond Mccoy MD Cult Blood Final - March 13 2022 11:23:54 PST Citrobacter koseri Staphylococcus aureus Enterococcus faecalis In 2 of 2 sets drawn [place] [address] [employer] Laborer: Demond Mccoy MD Final - March 13 2022 11:25:51 PST Citrobacter koseri Staphylococcus aureus Enterococcus faecalis Please refer to accession #[id number] for sensitivities. In 2 of 2 sets drawn [place] [address] [employer] Laborer: Demond Mccoy MD Culture Urine Final - March 14 2022 06:28:27 PST >100,000 cfu/ml Klebsiella oxytoca <10,000 cfu/ml Citrobacter koseri [place] [address] [employer] Laborer: Demond Mccoy MD Cult Blood Final - March 17 2022 14:02:02 PST No growth at 5 days. Final - March 16 2022 08:10:37 PST Staphylococcus aureus [place] [address] [employer] [facility] Laborer: Demond Mccoy MD Final - March 19 2022 06:01:34 PST No growth at 5 days. No growth at 5 days. Final - March 20 2022 14:01:57 PST No growth at 5 days. Final - March 20 2022 14:01:58 PST No growth at 5 days. Final - March 26 2022 20:01:44 PST No growth at 5 days. No growth at 5 days. . Impression and Plan Diagnosis: Active Diagnoses Anemia (Anemia, unspecified) Effusion of right knee joint (Effusion, right knee) Acute respiratory failure with hypoxia (Acute respiratory failure with hypoxia) Tobacco abuse (Tobacco use) COPD without exacerbation (Chronic obstructive pulmonary disease, unspecified) Right knee pain (Pain in right knee) Hyperglycemia (Hyperglycemia, unspecified) Prediabetes (Prediabetes) History of TIA (transient ischemic attack) (Personal history of transient ischemic attack (TIA), and cerebral infarction without residual deficits) Urinary catheter present (Presence of urogenital implants) Urine retention (Retention of urine, unspecified) Atrial fibrillation with RVR (Unspecified atrial fibrillation) Seizure (Unspecified convulsions) MSSA bacteremia (Bacteremia) Generalized weakness (Weakness) . Course: Improving, Progressing as expected, stepson at bedside. Plan: 76-year-old male with hypertension, hyperlipidemia, chronic ex-smoker, newly diagnosed type II DM, ?history of TIA's, carotid endarterectomy (elective, 02/21/2022) BIBA to the ED with c/o AMS (GCS 8/15 on presentation) and admitted due to the possibility of acute stroke. Vital signs were significant for Tachycardia (144bpm) and ECG showed new onset Afib with RVR. CT brain was -ve for hemorrhagic stroke. Pt was given tPA in ED as per recs of Neurologist. CT angio was -ve for hemodynamically significant stenosis in head and neck. Pt was transferred to ICU on 03/04, MRI brain (03/06) was negative for acute stroke and downgraded on 03/07. During the course of ICU stay , pt stayed AAOX3. ECHO without bubble study was -ve for evidence of cardiac source thrombus, negative for vegetations and EF 60%. Dual antiplatelet agents were dc'd as per recs of Neuro. Cardio (Dr. Chang) was consulted who recommended Metoprolol and digoxin for Afib and outpt f/u. Pt had a ?traumatic urinary catheterization and later had a MSSA and gram -ve bacteremia. ID was consulted and pt was started on Unasyn and later switched to Ancef with Midline and goal to complete abx treatment (04/10/22). Repeat cultures are negative till date. Pt had a rapid response on 03/20/22 based on seizure like activity (eyes rolled back, non responsive, body stiffness). Lactic acid was elevated to 5.4. CT scan brain was done and negative for acute findings. Pt stayed in ICU for observation without intubation and later downgraded on 03/21/22 and care transitioned to the residency team. Pt says that he does not recall the seizures/event. Denies tongue bite, fecal incontinence and prior hx of seizures in the past. MRI brain w/wo contrast negative for lesion/stroke. Repeat cultures negative till date. Pt has urinary cath in place due to urinary retention after failed attempt to dc blankenship's, pt to f/u with urologist outpt. was seen by [facility] initially. the team Spoke with Dr. Cagle 03/25, recommendations - continue Keppra and follow up outpatient, on iv abxs until 04/10/22 PT/OT. [id number] Male 04/04/2022 [facility] Progress Note Patient: SHERRON SURESH Age: 76 years Legal Sex: Male : 1945 Author: MD Begum Swapna Review of Systems Constitutional: No fever, No chills. Respiratory: No shortness of breath, No cough. Cardiovascular: Negative. Gastrointestinal: Negative. Neurologic: Alert and oriented X4. Psychiatric: Negative. All other systems are negative Health Status Current medications: Home Medications (10) Active atorvastatin 80 mg oral tablet 80 mg = 1 Tab, ORAL, DAILY (Documented 03/07/22) cholecalciferol 1000 intl units oral tablet 25 mcg = 1 Tab, ORAL, DAILY (Documented 03/07/22) digoxin 125 mcg (0.125 mg) oral tablet 0.125 mg = 1 Tab, ORAL, DAILY (Documented 03/20/22) docusate-senna 50 mg-8.6 mg oral capsule (Documented 03/07/22) Eliquis 5 mg oral tablet 5 mg = 1 Tab, ORAL, BID (Documented 03/20/22) furosemide 20 mg oral tablet 20 mg = 1 Tab, ORAL, DAILY (Documented 03/07/22) insulin lispro 100 units/mL injectable solution correction scale, SUBQ, AC&Bed (Documented 03/26/22) lisinopril 10 mg oral tablet 10 mg = 1 Tab, ORAL, DAILY (Documented 03/20/22) metoprolol tartrate 25 mg oral tablet 25 mg = 1 Tab, ORAL, BID (Documented 03/20/22) tamsulosin 0.4 mg oral capsule 0.4 mg = 1 Cap, ORAL, QBedtime (Documented 03/07/22) , Active inpatient medications ACTIVE INPT MEDS: albuterol-ipratropium (DuoNeb) 3 mL INH Q6H7 apixaban (Eliquis) 5 mg ORAL BID atorvastatin 80 mg ORAL DAILY budesonide (budesonide 0.25 mg/2 mL Inhal Susp) 0.5 mg INH Q12H ceFAZolin (Ancef) 2 gm IVPB [id number] cholecalciferol 25 mcg ORAL DAILY digoxin 0.125 mg ORAL DAILY docusate 100 mg ORAL BID furosemide 20 mg ORAL DAILY insulin regular (insulin regular Sliding Scale Med (Body wt 70-100kg)) SUBQ AC&Bed levETIRAcetam (Keppra) 500 mg ORAL BID lisinopril 10 mg ORAL DAILY magnesium oxide 400 mg ORAL BIDMEALS metoprolol (Metoprolol Tartrate) 50 mg ORAL BID nicotine (nicotine 14 mg/day Patch) 14 mg TOP DAILY pantoprazole 40 mg ORAL ACBkfst tamsulosin 0.4 mg ORAL QBedtime ACTIVE PRN MEDS: acetaminophen 500 mg ORAL Q6H albuterol-ipratropium (DuoNeb) 3 mL INH Q4H7 glucagon 1 mg SUBQ As directed glucose (Dextrose 50% Inj 50 mL) 25 mL IV As directed glucose (Dextrose 50% Inj 50 mL) 50 mL IV As directed glucose (glucose 40% oral gel) 15 gm ORAL As directed magnesium hydroxide 30 mL ORAL DAILY traMADol 50 mg ORAL Q6H traMADol 100 mg ORAL Q6H ONE TIME MEDS: None ACTIVE IV MEDS: None Problem List: Problem List Active or Inactive Problems (5) Body mass index 30+ - obesity Diabetes Elevated serum cholesterol High blood pressure TIA (transient ischemic attack) Physical Examination Intake and Output Intake and Output Fluid Balance Intake and Output as of 18:12 (24 hour periods starting at 06:00) 04/02/22 04/01/2223 Intake mL 1460 3307 2460 Output mL 1400 4225 3000 Fluid Balance 99 -181 -069 VS/Measurements: Inpt. Vital signs (ST) Vital Signs (last 24 hrs) Last Charted Minimum Maximum Temp(?F) 98.6 (APR 02 11:22 PST) 97.3 (APR 02 08:00 PST) 98.6 (APR 02 11:22 PST) Heart Rate 77 (APR 02 13:25 PST) 70 (APR 01 18:56 PST) H 101 (APR 02 08:00 PST) Resp Rate 20 (APR 02 13:25 PST) 18 (APR 02 07:06 PST) H 22 (APR 02 08:00 PST) SBP 132 (APR 02:22 PST) 132 (B 11:22 PST) H 148 (APR 01 19:26 PST) DBP L 57 (APR 02:22 PST) L 57 (B 11:22 PST) 81 (B 08:00 PST) SpO2 95 (APR 02 13:25 PST) 95 (B 08:00 PST) 98 (B 19:08 PST) OXYFLOW 2 (APR 02 13:25 PST) 2 (FEB 18:56 PST) 2 (FEB 18:56 PST) OXYDELIVERY Nasal cannula Nasal Nasal (APR 02:22 PST) (B 18:56 PST) (B 18:56 PST) , Measurements 04/02/2022 06:55 PST Weight (kg) 88.1 kg Weight measured method Bed scale . General: Alert and oriented, No acute distress. HENT: Normocephalic. Neck: Supple, Non-tender. Respiratory: Respirations are non-labored, Breath sounds are equal. Cardiovascular: Normal rate, No edema. Gastrointestinal: Soft, Non-tender, Non-distended. Integumentary: Warm, Dry. Neurologic: Alert, Oriented. Psychiatric: Cooperative. Review / Management Laboratory Results Labs (Last four charted values) WBC 6.60 (FEB 19) 7.00 (FEB 17) 7.40 (B 16) Hgb L 8.4 (B 19) L 8.4 (B 17) L 8.5 (B 16) Hct L 25.4 (B 19) L 25.3 (FEB 17) L 25.5 (FEB 16) Plt 362 (FEB 19) 327 (FEB 17) 337 (FEB 16) Na 138 (B 19) 136 (B 17) L 134 (B 16) K 4.5 (B 19) 4.5 (B 17) 4.0 (B 16) CO2 28 (B 19) 29 (B 17) 30 (B 16) Cl 103 (B 19) L 100 (B 17) L 99 (B 16) Cr 0.9 (B 19) 1.0 (B 17) 0.8 (B 16) BUN 12 (B 19) 20 (FEB 17) 15 (B 16) Glucose Random H 116 (B ) 99 (B 17) H 121 (B 16) Mg L 1.7 (B 16) Ca L 8.1 (B 19) L 8.2 (B 17) L 8.2 (B 16) Cultures Results: Culture Results Culture MRSA Screen Final - March 06 2022 08:17:11 PST No MRSA (Methicillin Resistant Staph Aureus) [place] [address] [employer] Laborer: Demond Mccoy MD Cult Blood Final - March 13 2022 11:23:54 PST Citrobacter koseri Staphylococcus aureus Enterococcus faecalis In 2 of 2 sets drawn [place] [address] [employer] Laborer: Demond Mccoy MD Final - March 13 2022 11:25:51 PST Citrobacter koseri Staphylococcus aureus Enterococcus faecalis Please refer to accession #[id number] for sensitivities. In 2 of 2 sets drawn [place] [address] [employer] [facility] Laborer: Demond Mccoy MD Culture Urine Final - March 14 2022 06:28:27 PST >100,000 cfu/ml Klebsiella oxytoca <10,000 cfu/ml Citrobacter koseri [place] [address] [employer] [facility] Laborer: Demond Mccoy MD Cult Blood Final - March 17 2022 14:02:02 PST No growth at 5 days. Final - March 16 2022 08:10:37 PST Staphylococcus [place] [address] [employer] [facility] Laborer: Demond Mccoy MD Final - March 19 2022 06:01:34 PST No growth at 5 days. No growth at 5 days. Final - March 20 2022 14:01:57 PST No growth at 5 days. - March 20 2022 14:01:58 PST No growth at 5 days. March 26 2022 20:01:44 PST No growth at 5 days. No growth at 5 days. . Impression and Plan Diagnosis: Active Diagnoses Anemia (Anemia, unspecified) Effusion of right knee joint (Effusion, right knee) Acute respiratory failure with hypoxia (Acute respiratory failure with hypoxia) Tobacco abuse (Tobacco use) COPD without exacerbation (Chronic obstructive pulmonary disease, unspecified) Right knee pain (Pain in right knee) Hyperglycemia (Hyperglycemia, unspecified) Prediabetes (Prediabetes) History of TIA (transient ischemic attack) (Personal history of transient ischemic attack (TIA), and cerebral infarction without residual deficits) Urinary catheter present (Presence of urogenital implants) Urine retention (Retention of urine, unspecified) Atrial fibrillation with RVR (Unspecified atrial fibrillation) Seizure (Unspecified convulsions) MSSA bacteremia (Bacteremia) Generalized weakness (Weakness) . Course: Improving, Progressing as expected, matthew at bedside. Plan: on iv abxs until 04/10/22 PT/OT. [id number] Male 04/02/2022 [facility] Hospitalist Progress Note Patient: SHERRON SURESH Age: 76 years Legal Sex: MALE : 1945 Date of Service 04/01/2022 11:22 PST Hospital Course 76 yo male with hx of HTN, HLD, tob abuse, COPD, pre-diabetes, s/p carotid endarterectomy 02/21/22 who is admitted to [facility] bed for cont IV Abx therapy for MSSA Bacteremia with IV Ancef thru 04/10/22 and rehab for weakness after an acute hospitalization where he was treated for an acute CVA with tPA and he suffered a seizure and developed atrial fibrillation. Has a blankenship catheter for urine retention - has not had any problems with urination previously and no dx of prostate problems. 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 [facility]. Had his carotid stent placed there 02/21/22. His and stepson are at the bedside helping with history ( is 86 and stepson is 70); , Julián Vasquez, is surrogate decision maker. I reviewed notes, studies, and imaging reports from the outside facility [1] Subjective Is doing okay - cannot feel his bladder filling up, is okay to wait on taking out the blankenship cath. No pain in the knee - feeling back to normal Objective Vitals and Measurements T: 98.6 F HR: 91(Apical) HR: 91 RR: 20 BP: 138/79 SpO2: 95% O2 Delivery: Nasal cannula O2 Flow: 2L/min HT: 180.34 cm WT: 86.3 kg BMI: 26.54 kg/m2 Intake and Output as of 11:22 (24 hour periods starting at 06:00) 04/01/22 03/31/22 03/30/22 Intake mL 720 2460 2382 Output mL 475 3000 3675 Fluid Balance 245 -540 -1293 Physical Exam General Appearance: No acute distress. Cardiac: Normal sinus rhythm. No murmurs. Lungs: Clear to auscultation, diminished at bases Abdomen: Soft, non-distended, nontender, +BS Musculoskeletal: Lt knee - no pain with ROM, no edema/erythema Psychiatric: Alert and interactive Inpatient Medications Scheduled: albuterol-ipratrop 3-0.5 mg/3 mL Neb Soln 3 mL, INH, Q6H7 apixaban 5 mg Tab 5 mg 1 Tab, ORAL, BID atorvastatin 40 mg Tab 80 mg 2 Tab, ORAL, DAILY budesonide 0.5 mg/2 mL, 2 mL Inhal Susp 0.5 mg 2 mL, INH, Q12H ceFAZolin 2 g Inj 2 gm 1 Vial, IVPB, [id number] cholecalciferol (D3) 25 mcg (1,000 IU) Tab 25 mcg 1 Tab, ORAL, DAILY digoxin 0.125 mg Tab 0.125 mg 1 Tab, ORAL, DAILY docusate sodium 100 mg Cap 100 mg 1 Cap, ORAL, BID furosemide 20 mg Tab 20 mg 1 Tab, ORAL, DAILY insulin regular (HumuLIN R) 100 units/mL, 3 mL MDV sliding scale, SUBQ, AC&Bed levETIRAcetam 500 mg Tab 500 mg 1 Tab, ORAL, BID lisinopril 10 mg Tab 10 mg 1 Tab, ORAL, DAILY magnesium Oxide 400 mg Tab 400 mg 1 Tab, ORAL, BIDMEALS metoprolol tartrate 50 mg Tab 50 mg 1 Tab, ORAL, BID nicotine 14 mg/day Patch 14 mg 1 Patch, TOP, DAILY pantoprazole 40 mg EC Tab 40 mg 1 Tab, ORAL, ACBkfst tamsulosin 0.4 mg Cap 0.4 mg 1 Cap, ORAL, QBedtime Continuous: PRN: acetaminophen 500 mg Tab 500 mg 1 ea, ORAL, Q6H albuterol-ipratrop 3-0.5 mg/3 mL Neb Soln 3 mL, INH, Q4H7 Dextrose 50% Inj 50 mL Syr 25 mL, IV, As directed Dextrose 50% Inj 50 mL Syr 50 mL, IV, As directed glucagon 1 mg Inj SDV 1 mg, SUBQ, As directed Glucose 40% Oral Gel 15 gm 15 gm 37.5 mL, ORAL, As directed Milk of Magnesia 30 mL 30 mL, ORAL, DAILY traMADol 50 mg Tab 50 mg 1 Tab, ORAL, Q6H traMADol 50 mg Tab 100 mg 2 Tab, ORAL, Q6H Lab Results Labs All 24H Lab Results Date POCT - Glucose (Capillary) 119 mg/dL (HIGH) 04/01/22 11:03 PST Assessment/Plan _ Acute respiratory failure with hypoxia (Acute respiratory failure with hypoxia, J96.01) Anemia (Anemia, unspecified, D64.9) - hgb stable 8.4 - stool iFob pending Atrial fibrillation with RVR (Unspecified atrial fibrillation, I48.91) COPD without exacerbation (Chronic obstructive pulmonary disease, unspecified, J44.9) Effusion of right knee joint (Effusion, right knee, M25.461) Generalized weakness (Weakness, R53.1) - cont to work with PT/OT per rehab plan History of TIA (transient ischemic attack) (Personal history of transient ischemic attack (TIA), and cerebral infarction without residual deficits, Z86.73) Hyperglycemia (Hyperglycemia, unspecified, R73.9) MSSA bacteremia (Bacteremia, R78.81) - doing well on abx - Cont the IV abx thru 04/10/22 - weekly labs last complete 03/28/22 - stable Prediabetes (Prediabetes, R73.03) Right knee pain (Pain in right knee, M25.561) - resolved with 3 days antiinflammatory Seizure (Unspecified convulsions, R56.9) Tobacco abuse (Tobacco use, Z72.0) Urinary catheter present (Presence of urogenital implants, Z96.0) Urine retention (Retention of urine, unspecified, R33.9) - failed bladder training yesterday/today - hold off on bladder training for now until becomes more active with PT (had 3 attempts at blankenship removal in [place]) - disc that may have to go home with lbankenship and f/u w/outpt urology Orders: metoprolol (Metoprolol Tartrate), 50 mg, ORAL, BID, TAB, 03/30/22 21:00:00 PST naproxen (Naprosyn), 500 mg, ORAL, BID, NOW, TAB, 03/28/22 14:54:00 PST, 3 Day(s), Stop date 03/31/22 14:53:00 PST Basic Metabolic Panel BMP Bladder Training CBC w Differential Continue Blankenship Differential Automated* Occult Bld Stool FIT (Lab) Screen POC Glucose Panel POC Glucose Panel POC Glucose Panel POC Glucose Panel POC Glucose Panel POC Glucose Panel POC Glucose Panel POC Glucose Panel POC Glucose Panel POC Glucose Panel POC Glucose Panel POC Glucose Panel POC Glucose Panel Serum Indices Disposition: Swing Bed Anticipated DC: once abx/rehab complete Place of DC: home wi/family with HHN/PT/OT [1] Hospitalist Progress/SOAP Note; MD Omid, [facility] 03/31/2022 14:40 PST [id number] Male 04/01/2022 [facility] Hospitalist Progress Note Patient: SHERRON SURESH Age: 76 years Legal Sex: MALE : 1945 Date of Service 03/31/2022 14:41 PST Hospital Course 76 yo male with hx of HTN, HLD, tob abuse, COPD, pre-diabetes, s/p carotid endarterectomy 02/21/22 who is admitted to [facility] [place] for cont IV Abx therapy for MSSA Bacteremia with IV Ancef thru 04/10/22 and rehab for weakness after an acute hospitalization where he was treated for an acute CVA with tPA and he suffered a seizure and developed atrial fibrillation. Has a blankenship catheter for urine retention - has not had any problems with urination previously and no dx of prostate problems. 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 [facility]read[facility]. Had his carotid stent placed there 02/21/22. His and stepson are at the bedside helping with history ( is 86 and stepson is 70); , Julián Vasquez, is surrogate decision maker. I reviewed notes, studies, and imaging reports from the outside facility [1] Subjective Is doing well - knee is feeling better today. Knee is getting better. Would like to try and get the blankenship out Objective Vitals and Measurements T: 97.4 F HR: 80(Apical) HR: 86 RR: 20 BP: 152/70 SpO2: 97% O2 Delivery: Nasal cannula O2 Flow: 2L/min HT: 180.34 cm WT: 86.3 kg BMI: 26.54 kg/m2 Intake and Output as of 14:40 (24 hour periods starting at 06:00) 03/31/22 03/30/22 03/29/22 Intake mL 320 2382 2140 Output mL 550 9695 2875 Fluid Balance -230 -1293 -735 Physical Exam General Appearance: No acute distress. Cardiac: Normal sinus rhythm. No murmurs. Lungs: Clear to auscultation, diminished at bases Abdomen: Soft, non-distended, non-tender, +BS Psychiatric: Alert and interactive Inpatient Medications Scheduled: albuterol-ipratrop 3-0.5 mg/3 mL Neb Soln 3 mL, INH, Q6H7 apixaban 5 mg Tab 5 mg 1 Tab, ORAL, BID atorvastatin 40 mg Tab 80 mg 2 Tab, ORAL, DAILY budesonide 0.5 mg/2 mL, 2 mL Inhal Susp 0.5 mg 2 mL, INH, Q12H ceFAZolin 2 g Inj 2 gm 1 Vial, IVPB, [id number] cholecalciferol (D3) 25 mcg (1,000 IU) Tab 25 mcg 1 Tab, ORAL, DAILY digoxin 0.125 mg Tab 0.125 mg 1 Tab, ORAL, DAILY docusate sodium 100 mg Cap 100 mg 1 Cap, ORAL, BID furosemide 20 mg Tab 20 mg 1 Tab, ORAL, DAILY insulin regular (HumuLIN R) 100 units/mL, 3 mL MDV sliding scale, SUBQ, AC&Bed levETIRAcetam 500 mg Tab 500 mg 1 Tab, ORAL, BID lisinopril 10 mg Tab 10 mg 1 Tab, ORAL, DAILY magnesium Oxide 400 mg Tab 400 mg 1 Tab, ORAL, BIDMEALS metoprolol tartrate 50 mg Tab 50 mg 1 Tab, ORAL, BID naproxen 500 mg Tab 500 mg 1 Tab, ORAL, BID nicotine 14 mg/day Patch 14 mg 1 Patch, TOP, DAILY pantoprazole 40 mg EC Tab 40 mg 1 Tab, ORAL, ACBkfst tamsulosin 0.4 mg Cap 0.4 mg 1 Cap, ORAL, QBedtime Continuous: PRN: acetaminophen 500 mg Tab 500 mg 1 ea, ORAL, Q6H albuterol-ipratrop 3-0.5 mg/3 mL Neb Soln 3 mL, INH, Q4H7 Dextrose 50% Inj 50 mL Syr 25 mL, IV, As directed Dextrose 50% Inj 50 mL Syr 50 mL, IV, As directed glucagon 1 mg Inj SDV 1 mg, SUBQ, As directed Glucose 40% Oral Gel 15 gm 15 gm 37.5 mL, ORAL, As directed Milk of Magnesia 30 mL 30 mL, ORAL, DAILY traMADol 50 mg Tab 50 mg 1 Tab, ORAL, Q6H traMADol 50 mg Tab 100 mg 2 Tab, ORAL, Q6H Lab Results Labs All 24H Lab Results Date Auto Neutrophil Percent 61.2 % 03/31/22 03:03 PST Auto Neutrophil Absolute 4.0 K/mm3 03/31/22 03:03 PST Auto Lymphocyte Percent 21.0 % 03/31/22 03:03 PST Auto Lymphocyte Absolute 1.4 K/mm3 03/31/22 03:03 PST Auto Monocyte Percent 15.6 % (HIGH) 03/31/22 03:03 PST Auto Monocyte Absolute 1.0 K/mm3 03/31/22 03:03 PST Auto Basophil Percent 1.0 % 03/31/22 03:03 PST Auto Basophil Absolute 0.1 K/mm3 03/31/22 03:03 PST Auto Eosinophil Percent 1.2 % 03/31/22 03:03 PST Auto Eosinophil Absolute 0.1 K/mm3 03/31/22 03:03 PST WBC 6.60 K/mm3 03/31/22 03:03 PST RBC 2.86 M/mm3 (LOW) 03/31/22 03:03 PST HGB 8.4 gm/dL (LOW) 03/31/22 03:03 PST HCT 25.4 % (LOW) 03/31/22 03:03 PST MCV 88.9 fL 03/31/22 03:03 PST MCH 29.3 pg 03/31/22 03:03 PST MCHC 33.0 gm/dL 03/31/22 03:03 PST RDW 14.7 % (HIGH) 03/31/22 03:03 PST PLT 362 K/mm3 03/31/22 03:03 PST MPV 9.0 fL 03/31/22 03:03 PST Sodium Level 138 mmol/L 03/31/22 03:03 PST Potassium Level 4.5 mmol/L 03/31/22 03:03 PST Chloride Level 103 mmol/L 03/31/22 03:03 PST CO2/Carbon Dioxide 28 mmol/L 03/31/22 03:03 PST Anion Gap 7 mmol/L 03/31/22 03:03 PST Glucose, Random 116 mg/dL (HIGH) 03/31/22 03:03 PST POCT - Glucose (Capillary) 125 mg/dL (HIGH) 03/31/22 10:46 PST BUN 12 mg/dL 03/31/22 03:03 PST Creatinine 0.9 mg/dL 03/31/22 03:03 PST BUN/Creat Ratio 13 (LOW) 03/31/22 03:03 PST Osmolality, Calculated 276 mOsm/L 03/31/22 03:03 PST Calcium Level 8.1 mg/dL (LOW) 03/31/22 03:03 PST eGFR 89 mL/min/1.73m2 03/31/22 03:03 PST Assessment/Plan _ Acute respiratory failure with hypoxia (Acute respiratory failure with hypoxia, J96.01) Anemia (Anemia, unspecified, D64.9) - hgb 8.4, stable - will cont to monitor - pt on blood thinner and Nsaids - stool iFob is pending Atrial fibrillation with RVR (Unspecified atrial fibrillation, I48.91) COPD without exacerbation (Chronic obstructive pulmonary disease, unspecified, J44.9) Effusion of right knee joint (Effusion, right knee, M25.461) - swelling/pain improving - no signs of infection - will complete the 3 days of antiinflamm Generalized weakness (Weakness, R53.1) - cont PT/OT per rehab plan - cont self directed exercises History of TIA (transient ischemic attack) (Personal history of transient ischemic attack (TIA), and cerebral infarction without residual deficits, Z86.73) Hyperglycemia (Hyperglycemia, unspecified, R73.9) MSSA bacteremia (Bacteremia, R78.81) - cont IV Abx Cefazolin thru 04/10/22 - weekly labs have been stable, pt is afebrile Prediabetes (Prediabetes, R73.03) Right knee pain (Pain in right knee, M25.561) - improving, no signs of infection Seizure (Unspecified convulsions, R56.9) Tobacco abuse (Tobacco use, Z72.0) Urinary catheter present (Presence of urogenital implants, Z96.0) Urine retention (Retention of urine, unspecified, R33.9) - will start bladder training - if not able to feel bladder when full not able to get the blankenship out Orders: magnesium oxide (magnesium oxide), 400 mg, ORAL, BIDMEALS, TAB, 03/28/22 16:30:00 PST metoprolol (Metoprolol Tartrate), 50 mg, ORAL, BID, TAB, 03/30/22 21:00:00 PST naproxen (Naprosyn), 500 mg, ORAL, BID, NOW, TAB, 03/28/22 14:54:00 PST, 3 Day(s), Stop date 03/31/22 14:53:00 PST pantoprazole (pantoprazole), 40 mg, ORAL, ACBkfst, NOW, EC TAB, 03/28/22 14:53:00 PST Basic Metabolic Panel BMP Basic Metabolic Panel BMP CBC w Differential CBC w Differential Continue Blankenship Differential Automated* Differential Automated* Nutritional Services Consult Occult Bld Stool FIT (Lab) Screen POC Glucose Panel POC Glucose Panel POC Glucose Panel POC Glucose Panel POC Glucose Panel POC Glucose Panel POC Glucose Panel POC Glucose Panel POC Glucose Panel POC Glucose Panel POC Glucose Panel POC Glucose Panel Serum Indices Serum Indices Disposition: Swing Bed Anticipated DC: once IV abx and rehab is complete Place of DC: home with family w/HHN/PT/OT [1] Hospitalist Progress/SOAP Note; MD Omid, [facility] 03/30/2022 14:13 PST [id number] Male 03/31/2022 [facility] Hospitalist Progress Note Patient: SHERRON SURESH Age: 76 years Legal Sex: MALE : 1945 Date of Service 03/30/2022 14:13 PST Hospital Course 76 yo male with hx of HTN, HLD, tob abuse, COPD, pre-diabetes, s/p carotid endarterectomy 02/21/22 who is admitted to [facility] Swing bed for cont IV Abx therapy for MSSA Bacteremia with IV Ancef thru 04/10/22 and rehab for weakness after an acute hospitalization where he was treated for an acute CVA with tPA and he suffered a seizure and developed atrial fibrillation. Has a blankenship catheter for urine retention - has not had any problems with urination previously and no dx of prostate problems. 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 [facility]. Had his carotid stent placed there 02/21/22. His and stepson are at the bedside helping with history ( is 85 and stepson is 70); , Julián Vasquez, is surrogate decision maker. I reviewed notes, studies, and imaging reports from the outside facility [1] Subjective Is moving better - knee has no swelling and min pain now. Would like to cont to drink his coffee thruout the day Objective Vitals and Measurements T: 97.4 F HR: 102(Apical) HR: 96 RR: 20 BP: 150/60 SpO2: 98% O2 Delivery: Nasal cannula O2 Flow: 2L/min FiO2: 28% HT: 180.34 cm WT: 86.3 kg BMI: 26.54 kg/m2 Intake and Output as of 14:13 (24 hour periods starting at 06:00) 03/30/22 03/29/22 03/28/22 Intake mL 340 2140 2030 Output mL 550 2875 1900 Fluid Balance -210 -735 130 Physical Exam General Appearance: No acute distress. Cardiac: Normal sinus rhythm. No murmurs, no LE edema Lungs: fine crackles Abdomen: Soft, non-distended, non-tender, +BS Musculoskeletal: Rt Knee - no edema, FROM Psychiatric: Alert and interactive Inpatient Medications Scheduled: albuterol-ipratrop 3-0.5 mg/3 mL Neb Soln 3 mL, INH, Q6H7 apixaban 5 mg Tab 5 mg 1 Tab, ORAL, BID atorvastatin 40 mg Tab 80 mg 2 Tab, ORAL, DAILY budesonide 0.5 mg/2 mL, 2 mL Inhal Susp 0.5 mg 2 mL, INH, Q12H ceFAZolin 2 g Inj 2 gm 1 Vial, IVPB, [id number] cholecalciferol (D3) 25 mcg (1,000 IU) Tab 25 mcg 1 Tab, ORAL, DAILY digoxin 0.125 mg Tab 0.125 mg 1 Tab, ORAL, DAILY docusate sodium 100 mg Cap 100 mg 1 Cap, ORAL, BID furosemide 20 mg Tab 20 mg 1 Tab, ORAL, DAILY insulin regular (HumuLIN R) 100 units/mL, 3 mL MDV sliding scale, SUBQ, AC&Bed levETIRAcetam 500 mg Tab 500 mg 1 Tab, ORAL, BID lisinopril 10 mg Tab 10 mg 1 Tab, ORAL, DAILY magnesium Oxide 400 mg Tab 400 mg 1 Tab, ORAL, BIDMEALS metoprolol tartrate 50 mg Tab 50 mg 1 Tab, ORAL, BID naproxen 500 mg Tab 500 mg 1 Tab, ORAL, BID nicotine 14 mg/day Patch 14 mg 1 Patch, TOP, DAILY pantoprazole 40 mg EC Tab 40 mg 1 Tab, ORAL, ACBkfst tamsulosin 0.4 mg Cap 0.4 mg 1 Cap, ORAL, QBedtime Continuous: PRN: acetaminophen 500 mg Tab 500 mg 1 ea, ORAL, Q6H albuterol-ipratrop 3-0.5 mg/3 mL Neb Soln 3 mL, INH, Q4H7 Dextrose 50% Inj 50 mL Syr 25 mL, IV, As directed Dextrose 50% Inj 50 mL Syr 50 mL, IV, As directed glucagon 1 mg Inj SDV 1 mg, SUBQ, As directed Glucose 40% Oral Gel 15 gm 15 gm 37.5 mL, ORAL, As directed Milk of Magnesia 30 mL 30 mL, ORAL, DAILY traMADol 50 mg Tab 50 mg 1 Tab, ORAL, Q6H traMADol 50 mg Tab 100 mg 2 Tab, ORAL, Q6H Lab Results Labs All 72H A/G Ratio L 0.7 (03/28/22) Albumin Level L 2.5 (03/28/22) ALP 64 (03/28/22) ALT L 5 (03/28/22) Anion Gap 7 (03/29/22) 5 (03/28/22) AST L 12 (03/28/22) Auto Basophil Absolute 0.0 (03/29/22) 0.1 (03/28/22) Auto Basophil Percent 0.6 (03/29/22) 0.7 (03/28/22) Auto Eosinophil Absolute 0.1 (03/29/22) 0.0 (03/28/22) Auto Eosinophil Percent 1.4 (03/29/22) 0.3 (03/28/22) Auto Lymphocyte Absolute 1.1 (03/29/22) 1.3 (03/28/22) Auto Lymphocyte Percent 16.0 (03/29/22) 17.1 (03/28/22) Auto Monocyte Absolute 1.2 (03/29/22) 1.2 (03/28/22) Auto Monocyte Percent H 16.6 (03/29/22) H 16.8 (03/28/22) Auto Neutrophil Absolute 4.6 (03/29/22) 4.8 (03/28/22) Auto Neutrophil Percent 65.4 (03/29/22) 65.1 (03/28/22) Bilirubin, Total 0.7 (03/28/22) BUN 20 (03/29/22) 15 (03/28/22) BUN/Creat Ratio 20 (03/29/22) 19 (03/28/22) Calcium Level L 8.2 (03/29/22) L 8.2 (03/28/22) Chloride Level L 100 (03/29/22) L 99 (03/28/22) CO2/Carbon Dioxide 29 (03/29/22) 30 (03/28/22) Creatinine 1.0 (03/29/22) 0.8 (03/28/22) CRP High Sensitivity H 5.945 (03/28/22) eGFR 81 (03/29/22) >90 (03/28/22) Globulin Level 3.4 (03/28/22) Glucose, Random 99 (03/29/22) H 121 (03/28/22) HCT L 25.3 (03/29/22) L 25.5 (03/28/22) HGB L 8.4 (03/29/22) L 8.5 (03/28/22) Magnesium Level L 1.7 (03/28/22) MCH 29.3 (03/29/22) 29.5 (03/28/22) MCHC 33.1 (03/29/22) 33.4 (03/28/22) MCV 88.4 (03/29/22) 88.3 (03/28/22) MPV 9.3 (03/29/22) 8.5 (03/28/22) Osmolality, Calculated 275 (03/29/22) L 270 (03/28/22) PLT 327 (03/29/22) 337 (03/28/22) POCT - Glucose (Capillary) H 141 (03/30/22) H 143 (03/30/22) Potassium Level 4.5 (03/29/22) 4.0 (03/28/22) RBC L 2.86 (03/29/22) L 2.89 (03/28/22) RDW 14.5 (03/29/22) H 14.6 (03/28/22) Sedimentation Rate Auto H 40 (03/28/22) Sodium Level 136 (03/29/22) L 134 (03/28/22) Total Protein L 5.9 (03/28/22) Uric Acid Level 4.5 (03/28/22) WBC 7.00 (03/29/22) 7.40 (03/28/22) Assessment/Plan _ Acute respiratory failure with hypoxia (Acute respiratory failure with hypoxia, J96.01) - cont oxygen support and wean oxygen as tolerated Anemia (Anemia, unspecified, D64.9) - will cont to monitor Atrial fibrillation with RVR (Unspecified atrial fibrillation, I48.91) COPD without exacerbation (Chronic obstructive pulmonary disease, unspecified, J44.9) Effusion of right knee joint (Effusion, right knee, M25.461) - improving, will complete the course of anti-inflammatory - considered ref for aspiration if not resolving Generalized weakness (Weakness, R53.1) - cont to work with PT/OT per rehab plan History of TIA (transient ischemic attack) (Personal history of transient ischemic attack (TIA), and cerebral infarction without residual deficits, Z86.73) Hyperglycemia (Hyperglycemia, unspecified, R73.9) MSSA bacteremia (Bacteremia, R78.81) - cont IV abx thru 04/10/22 Ancef - weekly labs CBC/CMP/ESR/CRP-hs Prediabetes (Prediabetes, R73.03) hgbA1c 6.4 - will cont to monitor Right knee pain (Pain in right knee, M25.561) Seizure (Unspecified convulsions, R56.9) - cont meds and seizure precautions Tobacco abuse (Tobacco use, Z72.0) Urinary catheter present (Presence of urogenital implants, Z96.0) Urine retention (Retention of urine, unspecified, R33.9) - has improved activity - will trial the bladder training Friday (pt had failed 3 attempts for removal) Orders: magnesium oxide (magnesium oxide), 400 mg, ORAL, BIDMEALS, TAB, 03/28/22 16:30:00 PST metoprolol (Metoprolol Tartrate), 50 mg, ORAL, BID, TAB, 03/30/22 21:00:00 PST naproxen (Naprosyn), 500 mg, ORAL, BID, NOW, TAB, 03/28/22 14:54:00 PST, 3 Day(s), Stop date 03/31/22 14:53:00 PST pantoprazole (pantoprazole), 40 mg, ORAL, ACBkfst, NOW, EC TAB, 03/28/22 14:53:00 PST Basic Metabolic Panel BMP CBC w Differential CBC w Differential Comprehensive Metabolic Panel CMP Continue Blankenship CRPhs CReactive Protein HighSensitivity Differential Automated* Differential Automated* Knee Rt 2 Vw Magnesium Level Nutritional Services Consult POC Glucose Panel POC Glucose Panel POC Glucose Panel POC Glucose Panel POC Glucose Panel POC Glucose Panel POC Glucose Panel POC Glucose Panel POC Glucose Panel POC Glucose Panel POC Glucose Panel POC Glucose Panel Sed Rate (ESR) AUTO Serum Indices Serum Indices Uric Acid Level US Lower Ext Vein Duplex Rt Disposition: Swing Bed Anticipated DC: once abx and rehab are complette Place of Discharge: home with family with HHN?PT/OT [1] Hospitalist Progress/SOAP Note; MD Omid, [facility] 03/28/2022 12:09 PST hgb down to 8.4 (down from 9.9) will check stool for occult blood and cont to monitor [id number] Male 03/30/2022 [facility] Hospitalist Progress Note Patient: SHERRON SURESH Age: 76 years Legal Sex: MALE : 1945 Date of Service 03/29/2022 08:06 PST Hospital Course 76 yo male with hx of HTN, HLD, tob abuse, COPD, pre-diabetes, s/p carotid endarterectomy 02/21/22 who is admitted to [facility] Swing bed for cont IV Abx therapy for MSSA Bacteremia with IV Ancef thru 04/10/22 and rehab for weakness after an acute hospitalization where he was treated for an acute CVA with tPA and he suffered a seizure and developed atrial fibrillation. Has a blankenship catheter for urine retention - has not had any problems with urination previously and no dx of prostate problems. 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 [facility] Had his carotid stent placed there 02/21/22. His and stepson are at the bedside helping with history ( is 86 and stepson is 70); , Julián Vasquez, is surrogate decision maker. I reviewed notes, studies, and imaging reports from the outside facility Subjective Feels like the knee is doing a little better - less pain and swelling has gone down Objective Vitals and Measurements T: 98.0 F HR: 117(Apical) HR: 86 RR: 20 BP: 116/67 SpO2: 96% O2 Delivery: Nasal cannula O2 Flow: 2L/min FiO2: 26% HT: 180.34 cm WT: 86.3 kg BMI: 26.54 kg/m2 Intake and Output as of 08:06 (24 hour periods starting at 06:00) 03/29/22 03/28/22 03/27/22 Intake mL 600 2030 1880 Output mL 0 1900 3350 Fluid Balance 600 130 -1470 Physical Exam General Appearance: No acute distress. Cardiac: Normal sinus rhythm. No murmurs Lungs: diminished at bases, exp wheezes Abdomen: Soft, non-distended, non-tender, +BS Musculoskeletal: Rt knee - min edema, no erythema, min ttp Psychiatric: Alert and interactive Inpatient Medications Scheduled: albuterol-ipratrop 3-0.5 mg/3 mL Neb Soln 3 mL, INH, Q6H7 apixaban 5 mg Tab 5 mg 1 Tab, ORAL, BID atorvastatin 40 mg Tab 80 mg 2 Tab, ORAL, DAILY budesonide 0.5 mg/2 mL, 2 mL Inhal Susp 0.5 mg 2 mL, INH, Q12H ceFAZolin 2 g Inj 2 gm 1 Vial, IVPB, [id number] cholecalciferol (D3) 25 mcg (1,000 IU) Tab 25 mcg 1 Tab, ORAL, DAILY digoxin 0.125 mg Tab 0.125 mg 1 Tab, ORAL, DAILY docusate sodium 100 mg Cap 100 mg 1 Cap, ORAL, BID furosemide 20 mg Tab 20 mg 1 Tab, ORAL, DAILY insulin regular (HumuLIN R) 100 units/mL, 3 mL MDV sliding scale, SUBQ, AC&Bed levETIRAcetam 500 mg Tab 500 mg 1 Tab, ORAL, BID lisinopril 10 mg Tab 10 mg 1 Tab, ORAL, DAILY magnesium Oxide 400 mg Tab 400 mg 1 Tab, ORAL, BIDMEALS metoprolol tartrate 25 mg Tab 25 mg 1 Tab, ORAL, BID naproxen 500 mg Tab 500 mg 1 Tab, ORAL, BID nicotine 14 mg/day Patch 14 mg 1 Patch, TOP, DAILY pantoprazole 40 mg EC Tab 40 mg 1 Tab, ORAL, ACBkfst tamsulosin 0.4 mg Cap 0.4 mg 1 Cap, ORAL, QBedtime Continuous: PRN: acetaminophen 500 mg Tab 500 mg 1 ea, ORAL, Q6H albuterol-ipratrop 3-0.5 mg/3 mL Neb Soln 3 mL, INH, Q4H7 Dextrose 50% Inj 50 mL Syr 25 mL, IV, As directed Dextrose 50% Inj 50 mL Syr 50 mL, IV, As directed glucagon 1 mg Inj SDV 1 mg, SUBQ, As directed Glucose 40% Oral Gel 15 gm 15 gm 37.5 mL, ORAL, As directed Milk of Magnesia 30 mL 30 mL, ORAL, DAILY traMADol 50 mg Tab 50 mg 1 Tab, ORAL, Q6H traMADol 50 mg Tab 100 mg 2 Tab, ORAL, Q6H Lab Results Labs All 24H Lab Results Date Auto Neutrophil Percent 65.4 % 03/29/22 04:46 PST Auto Neutrophil Absolute 4.6 K/mm3 03/29/22 04:46 PST Auto Lymphocyte Percent 16.0 % 03/29/22 04:46 PST Auto Lymphocyte Absolute 1.1 K/mm3 03/29/22 04:46 PST Auto Monocyte Percent 16.6 % (HIGH) 03/29/22 04:46 PST Auto Monocyte Absolute 1.2 K/mm3 03/29/22 04:46 PST Auto Basophil Percent 0.6 % 03/29/22 04:46 PST Auto Basophil Absolute 0.0 K/mm3 03/29/22 04:46 PST Auto Eosinophil Percent 1.4 % 03/29/22 04:46 PST Auto Eosinophil Absolute 0.1 K/mm3 03/29/22 04:46 PST WBC 7.00 K/mm3 03/29/22 04:46 PST RBC 2.86 M/mm3 (LOW) 03/29/22 04:46 PST HGB 8.4 gm/dL (LOW) 03/29/22 04:46 PST HCT 25.3 % (LOW) 03/29/22 04:46 PST MCV 88.4 fL 03/29/22 04:46 PST MCH 29.3 pg 03/29/22 04:46 PST MCHC 33.1 gm/dL 03/29/22 04:46 PST RDW 14.5 % 03/29/22 04:46 PST PLT 327 K/mm3 03/29/22 04:46 PST MPV 9.3 fL 03/29/22 04:46 PST Sodium Level 136 mmol/L 03/29/22 04:46 PST Potassium Level 4.5 mmol/L 03/29/22 04:46 PST Chloride Level 100 mmol/L (LOW) 03/29/22 04:46 PST CO2/Carbon Dioxide 29 mmol/L 03/29/22 04:46 PST Anion Gap 7 mmol/L 03/29/22 04:46 PST Glucose, Random 99 mg/dL 03/29/22 04:46 PST POCT - Glucose (Capillary) 98 mg/dL 03/29/22 05:59 PST BUN 20 mg/dL 03/29/22 04:46 PST Creatinine 1.0 mg/dL 03/29/22 04:46 PST BUN/Creat Ratio 20 03/29/22 04:46 PST Osmolality, Calculated 275 mOsm/L 03/29/22 04:46 PST Calcium Level 8.2 mg/dL (LOW) 03/29/22 04:46 PST eGFR 81 mL/min/1.73m2 03/29/22 04:46 PST Diagnostic Results Result Type: Knee Rt 2 Vw Result Date: March 28, 2022 11:38 PST Reason For Exam: Swelling REPORT: EXAMINATION: Knee Rt 2 VwCLINICAL HISTORY: Knee pain.COMPARISONS: No priors available for comparison.TECHNIQUE:AP and lateral views of the right knee were obtained. FINDINGS: There is no fracture or joint dislocation. There are mild bicompartmental degenerative changes greatest in the medial and patellofemoral compartments characterized by joint space narrowing and spur formation. There is a moderately sized joint effusion. Vascular calcifications are noted throughout the soft tissues. IMPRESSION: Moderately size joint effusion. Signed by: Sandeep Montiel on 03/28/2022 12:51 PM Assessment/Plan _ Acute respiratory failure with hypoxia (Acute respiratory failure with hypoxia, J96.01) - cont oxygen support and wean as tolerated Atrial fibrillation with RVR (Unspecified atrial fibrillation, I48.91) - NSR, rate controlled - cont anticoagulation COPD without exacerbation (Chronic obstructive pulmonary disease, unspecified, J44.9) - cont inh steroids and breathing tx Effusion of right knee joint (Effusion, right knee, M25.461) - will cont the antinflamm tx x 3 days - has improved with tx - XR showed moderate effusion - if not cont to improve will need ref for draingage Generalized weakness (Weakness, R53.1) - cont to work with PT/OT per rehab plan Ordered: Admission Status History of TIA (transient ischemic attack) (Personal history of transient ischemic attack (TIA), and cerebral infarction without residual deficits, Z86.73) Hyperglycemia (Hyperglycemia, unspecified, R73.9) MSSA bacteremia (Bacteremia, R78.81) - will cont the IV abx for full 6 weeks - IV Ancef Q8 thru 04/10/22 - pt afeb, VSS - monitor weekly labs - WBC, CBC, ESR, CRP-hs Prediabetes (Prediabetes, R73.03) - hgbA1c 6.4 on 03/11/22 - cont to monitor and cover with SSI - ok for regular diet Right knee pain (Pain in right knee, M25.561) - has tramadol for pain Seizure (Unspecified convulsions, R56.9) - cont seizure precautions - will need f/u appt with Dr Cagle Tobacco abuse (Tobacco use, Z72.0) Urinary catheter present (Presence of urogenital implants, Z96.0) Urine retention (Retention of urine, unspecified, R33.9) - cont blankenship and meds for urine retention - will start bladder training once more active Orders: acetaminophen (acetaminophen), 500 mg, ORAL, Q6H, PRN, Pain-Mild (Scale 1-3), TAB, 03/26/22 20:32:00 PST albuterol-ipratropium (DuoNeb), = 3 mL, INH, Q6H7, NEB AMP, 03/27/22 13:00:00 PST albuterol-ipratropium (DuoNeb), = 3 mL, INH, Q4H7, PRN, Shortness of breath, [facility] AMP, 03/27/22 12:55:00 PST apixaban (Eliquis), 5 mg, ORAL, BID, Indication = Atrial Fibrillation, TAB, 03/26/22 21:00:00 PST atorvastatin (atorvastatin), 80 mg, ORAL, DAILY, TAB, 03/26/22 19:46:00 PST budesonide (budesonide 0.25 mg/2 mL Inhal Susp), 0.5 mg, INH, Q12H, NEB AMP, 03/27/22 13:00:00 PST ceFAZolin (Ancef), 2 gm, IVPB, [id number], Indication= Bacteremia / Fungemia, INJ, 03/26/22 20:00:00 PST, Stop date 04/10/22 3:59:00 PST cholecalciferol (cholecalciferol), 25 mcg, ORAL, DAILY, TAB, 03/27/22 9:00:00 PST digoxin (digoxin), 0.125 mg, ORAL, DAILY, TAB, 03/27/22 9:00:00 PST docusate (docusate), 100 mg, ORAL, BID, CAP, 03/26/22 21:00:00 PST furosemide (furosemide), 20 mg, ORAL, DAILY, TAB, 03/27/22 9:00:00 PST glucagon (glucagon), 1 mg, SUBQ, As directed, PRN, Blood Glucose, INJ, 03/27/22 8:30:00 PST glucose (glucose 40% oral gel), 15 gm = 37.5 mL, ORAL, As directed, PRN, Blood Glucose, GEL, 03/27/22 8:30:00 PST glucose (Dextrose 50% Inj 50 mL), = 50 mL, IV, As directed, PRN, Blood Glucose, INJ, 03/27/22 8:30:00 PST glucose (Dextrose 50% Inj 50 mL), = 25 mL, IV, As directed, PRN, Blood Glucose, INJ, 03/27/22 8:30:00 PST insulin regular (insulin regular Sliding Scale Med (Body wt 70-100kg)), sliding scale, SUBQ, AC&Bed, INJ, 03/26/22 21:00:00 PST levETIRAcetam (Keppra), 500 mg, ORAL, BID, TAB, 03/26/22 21:00:00 PST lisinopril (lisinopril), 10 mg, ORAL, DAILY, TAB, 03/27/22 9:00:00 PST magnesium hydroxide (magnesium hydroxide), = 30 mL, ORAL, DAILY, PRN, Constipation, ORAL SUSP, 03/26/22 20:32:00 PST magnesium oxide (magnesium oxide), 400 mg, ORAL, BIDMEALS, TAB, 03/28/22 16:30:00 PST metoprolol (Metoprolol Tartrate), 25 mg, ORAL, BID, TAB, 03/26/22 21:00:00 PST naproxen (Naprosyn), 500 mg, ORAL, BID, NOW, TAB, 03/28/22 14:54:00 PST, 3 Day(s), Stop date 03/31/22 14:53:00 PST nicotine (nicotine 14 mg/day Patch), 14 mg, TOP, DAILY, PATCH, 03/27/22 12:54:00 PST pantoprazole (pantoprazole), 40 mg, ORAL, ACBkfst, NOW, EC TAB, 03/28/22 14:53:00 PST tamsulosin (tamsulosin), 0.4 mg, ORAL, QBedtime, CAP, 03/26/22 21:00:00 PST traMADol (traMADol), 50 mg, ORAL, Q6H, PRN, Pain-Moderate (Scale 4-6), TAB, 03/27/22 12:54:00 PST traMADol (traMADol), 100 mg, ORAL, Q6H, PRN, Pain-Severe (Scale 7-10), TAB, 03/27/22 12:54:00 PST Ambulate Basic Metabolic Panel BMP CBC w Differential CBC w Differential Chair Chair Communication Communication Communication Communication Comprehensive Metabolic Panel CMP Continue Blankenship CRPhs CReactive Protein HighSensitivity Differential Automated* Differential Automated* Fingerstick/Capillary Blood Sugar Fingerstick/Capillary Blood Sugar Full Code Hypoglycemia Protocol Hypoglycemia Protocol Incentive Spirometry Education Intake and Output Knee Rt 2 Vw Magnesium Level Notify Physician Nutritional Services Consult Occupational Therapy Eval and Treat per protocol Oxygen Therapy Physical Therapy Eval and Treat per protocol POC Glucose Panel POC Glucose Panel POC Glucose Panel POC Glucose Panel POC Glucose Panel POC Glucose Panel POC Glucose Panel POC Glucose Panel POC Glucose Panel POC Glucose Panel Precautions Regular Diet Respiratory Assessment Sed Rate (ESR) AUTO Serum Indices Serum Indices Cook Dinner Consult Speech Therapy Eval and Treat per protocol Straight Cath Updraft Nebulizer Treatment Updraft Nebulizer Treatment Updraft Nebulizer Treatment Uric Acid Level US Lower Ext Vein Duplex Rt Vital Signs VTE Prophylaxis Guidelines Weigh Patient Disposition: Swing Bed Anticipated DC: Once IV Abx/Rehab is complete Place of DC: [place] [id number] Male 03/29/2022 [facility] XR Knee - right 2 Views EXAMINATION: Kne e Rt 2 Vw CLINICAL HISTORY: Knee pain. COMPARISONS: No priors available for comparison. TECHNIQUE: AP and lateral views of the right knee were obtained. FINDINGS: There is no fracture or joint dislocation. There are mild bicompartmental degenerative changes greatest in the medial and patellofemoral compartments characterized by joint space narrowing and spur formation. There is a moderately sized joint effusion. Vascular calcifications are noted throughout the soft tissues. IMPRESSION: Moderately size joint effusion. Signed by: Sandeep Montiel on 03/28/2022 12:51 PM Final 03/28/2022 58 [facility] Hospitalist Progress Note Patient: SHERRON SURESH Age: 76 years Legal Sex: MALE : 1945 Date of Service 03/28/2022 12:[address] [facility] Hospital Course 76 yo male with hx of HTN, HLD, tob abuse, COPD, pre-diabetes, s/p carotid endarterectomy 02/21/22 who is admitted to [facility] bed for cont IV Abx therapy for MSSA Bacteremia with IV Ancef thru 04/10/22 and rehab for weakness after an acute hospitalization where he was treated for an acute CVA with tPA and he suffered a seizure and developed atrial fibrillation. Has a blankenship catheter for urine retention - has not had any problems with urination previously and no dx of prostate problems. 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 [facility]read[facility]. Had his carotid stent placed there 02/21/22. His and stepson are at the bedside helping with history ( is 85 and stepson is 70); , Julián Vasquez, is surrogate decision maker. I reviewed notes, studies, and imaging reports from the outside facility [1] Subjective Is feeling better - had a shower with OT today. Feels like the Rt knee is still a little painful but the less swelling. Objective Vitals and Measurements T: 98.6 F HR: 117(Apical) HR: 88 RR: 18 BP: 135/73 SpO2: 98% O2 Delivery: Room air O2 Flow: 2L/min FiO2: 21% HT: 180.34 cm WT: 86.3 kg BMI: 26.54 kg/m2 Intake and Output as of 12:09 (24 hour periods starting at 06:00) 03/28/22 03/27/22 03/26/22 Intake mL 830 1880 200 Output mL 600 3350 2525 Fluid Balance 230 -1470 -2325 Physical Exam General Appearance: No acute distress. Cardiac: Normal sinus rhythm Lungs: Clear to auscultation, sl diminished at bases Abdomen: Soft, non-distended, non-tender. Neurological: Grossly intact motor and sensory examination. Musculoskeletal: Rt knee edema, min ttp anteriorly, no erythema/warmth Psychiatric: Alert and interactive Inpatient Medications Scheduled: albuterol-ipratrop 3-0.5 mg/3 mL Neb Soln 3 mL, INH, Q6H7 apixaban 5 mg Tab 5 mg 1 Tab, ORAL, BID atorvastatin 40 mg Tab 80 mg 2 Tab, ORAL, DAILY budesonide 0.5 mg/2 mL, 2 mL Inhal Susp 0.5 mg 2 mL, INH, Q12H ceFAZolin 2 g Inj 2 gm 1 Vial, IVPB, [id number] cholecalciferol (D3) 25 mcg (1,000 IU) Tab 25 mcg 1 Tab, ORAL, DAILY digoxin 0.125 mg Tab 0.125 mg 1 Tab, ORAL, DAILY docusate sodium 100 mg Cap 100 mg 1 Cap, ORAL, BID furosemide 20 mg Tab 20 mg 1 Tab, ORAL, DAILY insulin regular (HumuLIN R) 100 units/mL, 3 mL MDV sliding scale, SUBQ, AC&Bed levETIRAcetam 500 mg Tab 500 mg 1 Tab, ORAL, BID lisinopril 10 mg Tab 10 mg 1 Tab, ORAL, DAILY metoprolol tartrate 25 mg Tab 25 mg 1 Tab, ORAL, BID nicotine 14 mg/day Patch 14 mg 1 Patch, TOP, DAILY tamsulosin 0.4 mg Cap 0.4 mg 1 Cap, ORAL, QBedtime Continuous: PRN: acetaminophen 500 mg Tab 500 mg 1 ea, ORAL, Q6H albuterol-ipratrop 3-0.5 mg/3 mL Neb Soln 3 mL, INH, Q4H7 Dextrose 50% Inj 50 mL Syr 25 mL, IV, As directed Dextrose 50% Inj 50 mL Syr 50 mL, IV, As directed glucagon 1 mg Inj SDV 1 mg, SUBQ, As directed Glucose 40% Oral Gel 15 gm 15 gm 37.5 mL, ORAL, As directed Milk of Magnesia 30 mL 30 mL, ORAL, DAILY traMADol 50 mg Tab 50 mg 1 Tab, ORAL, Q6H traMADol 50 mg Tab 100 mg 2 Tab, ORAL, Q6H Lab Results Labs All 24H Lab Results Date CRP High Sensitivity 5.945 mg/dL (HIGH) 03/28/22 04:36 PST Auto Neutrophil Percent 65.1 % 03/28/22 04:36 PST Auto Neutrophil Absolute 4.8 K/mm3 03/28/22 04:36 PST Auto Lymphocyte Percent 17.1 % 03/28/22 04:36 PST Auto Lymphocyte Absolute 1.3 K/mm3 03/28/22 04:36 PST Auto Monocyte Percent 16.8 % (HIGH) 03/28/22 04:36 PST Auto Monocyte Absolute 1.2 K/mm3 03/28/22 04:36 PST Auto Basophil Percent 0.7 % 03/28/22 04:36 PST Auto Basophil Absolute 0.1 K/mm3 03/28/22 04:36 PST Auto Eosinophil Percent 0.3 % 03/28/22 04:36 PST Auto Eosinophil Absolute 0.0 K/mm3 03/28/22 04:36 PST WBC 7.40 K/mm3 03/28/22 04:36 PST RBC 2.89 M/mm3 (LOW) 03/28/22 04:36 PST HGB 8.5 gm/dL (LOW) 03/28/22 04:36 PST HCT 25.5 % (LOW) 03/28/22 04:36 PST MCV 88.3 fL 03/28/22 04:36 PST MCH 29.5 pg 03/28/22 04:36 PST MCHC 33.4 gm/dL 03/28/22 04:36 PST RDW 14.6 % (HIGH) 03/28/22 04:36 PST PLT 337 K/mm3 03/28/22 04:36 PST MPV 8.5 fL 03/28/22 04:36 PST Sedimentation Rate Auto 40 mm/hr (HIGH) 03/28/22 04:36 PST Sodium Level 134 mmol/L (LOW) 03/28/22 04:36 PST Potassium Level 4.0 mmol/L 03/28/22 04:36 PST Chloride Level 99 mmol/L (LOW) 03/28/22 04:36 PST CO2/Carbon Dioxide 30 mmol/L 03/28/22 04:36 PST Anion Gap 5 mmol/L 03/28/22 04:36 PST Glucose, Random 121 mg/dL (HIGH) 03/28/22 04:36 PST POCT - Glucose (Capillary) 126 mg/dL (HIGH) 03/28/22 10:59 PST BUN 15 mg/dL 03/28/22 04:36 PST Creatinine 0.8 mg/dL 03/28/22 04:36 PST BUN/Creat Ratio 19 03/28/22 04:36 PST Osmolality, Calculated 270 mOsm/L (LOW) 03/28/22 04:36 PST Uric Acid Level 4.5 mg/dL 03/28/22 04:36 PST Calcium Level 8.2 mg/dL (LOW) 03/28/22 04:36 PST Magnesium Level 1.7 mg/dL (LOW) 03/28/22 04:36 PST Total Protein 5.9 gm/dL (LOW) 03/28/22 04:36 PST Albumin Level 2.5 gm/dL (LOW) 03/28/22 04:36 PST Globulin Level 3.4 gm/dL 03/28/22 04:36 PST A/G Ratio 0.7 (LOW) 03/28/22 04:36 PST Bilirubin, Total 0.7 mg/dL 03/28/22 04:36 PST AST 12 IntUnit/L (LOW) 03/28/22 04:36 PST ALT 5 IntUnit/L (LOW) 03/28/22 04:36 PST ALP 64 IntUnit/L 03/28/22 04:36 PST eGFR >90 mL/min/1.73m2 03/28/22 04:36 PST Diagnostic Results Result Type: Knee Rt 2 Vw Result Date: March 28, 2022 11:38 PST Reason For Exam: Swelling REPORT: EXAMINATION: Knee Rt 2 VwCLINICAL HISTORY: Knee pain.COMPARISONS: No priors available for comparison.TECHNIQUE:AP and lateral views of the right knee were obtained. FINDINGS: There is no fracture or joint dislocation. There are mild bicompartmental degenerative changes greatest in the medial and patellofemoral compartments characterized by joint space narrowing and spur formation. There is a moderately sized joint effusion. Vascular calcifications are noted throughout the soft tissues. IMPRESSION: Moderately size joint effusion. Signed by: Sandeep Montiel on 03/28/2022 12:51 PM Assessment/Plan _ Acute respiratory failure with hypoxia (Acute respiratory failure with hypoxia, J96.01) Atrial fibrillation with RVR (Unspecified atrial fibrillation, I48.91) COPD without exacerbation (Chronic obstructive pulmonary disease, unspecified, J44.9) Effusion of right knee joint (Effusion, right knee, M25.461) - reviewed xray result which shows mod jt effusion - will cont to elevate, can wear a lite wrap as needed, will trial an antiinflamm - Uric acid level is wnl at 4.5 - consider ref to ortho for eval and tx Generalized weakness (Weakness, R53.1) - cont to work with PT/OT per rehab plan - rec pt to sit up in chairs with meals if tolerated Ordered: Admission Status History of TIA (transient ischemic attack) (Personal history of transient ischemic attack (TIA), and cerebral infarction without residual deficits, Z86.73) Hyperglycemia (Hyperglycemia, unspecified, R73.9) MSSA bacteremia (Bacteremia, R78.81) - will cont the IV Ancef Q 8 thru 04/10/22 - pt afeb, VSS - wbc/cmp WNL, ESR 40 and CRP-hs 5.945 - will cont to monitor weekly labs Prediabetes (Prediabetes, R73.03) Right knee pain (Pain in right knee, M25.561) - cont meds for pain - ok for ice or heat pack as needed Seizure (Unspecified convulsions, R56.9) - cont meds - needs f/u appt scheduled with Dr Cagle Tobacco abuse (Tobacco use, Z72.0) Urinary catheter present (Presence of urogenital implants, Z96.0) Urine retention (Retention of urine, unspecified, R33.9) - will cont meds and the blankenship for now - disc moving forward with bladder training as he becomes more active with therapist Orders: acetaminophen (acetaminophen), 500 mg, ORAL, Q6H, PRN, Pain-Mild (Scale 1-3), TAB, 03/26/22 20:32:00 PST albuterol-ipratropium (DuoNeb), = 3 mL, INH, Q6H7, NEB AMP, 03/27/22 13:00:00 PST albuterol-ipratropium (DuoNeb), = 3 mL, INH, Q4H7, PRN, Shortness of breath, NEB AMP, 03/27/22 12:55:00 PST apixaban (Eliquis), 5 mg, ORAL, BID, Indication = Atrial Fibrillation, TAB, 03/26/22 21:00:00 PST atorvastatin (atorvastatin), 80 mg, ORAL, DAILY, TAB, 03/26/22 19:46:00 PST budesonide (budesonide 0.25 mg/2 mL Inhal Susp), 0.5 mg, INH, Q12H, NEB AMP, 03/27/22 13:00:00 PST ceFAZolin (Ancef), 2 gm, IVPB, [id number], Indication= Bacteremia / Fungemia, INJ, 03/26/22 20:00:00 PST, Stop date 04/10/22 3:59:00 PST cholecalciferol (cholecalciferol), 25 mcg, ORAL, DAILY, TAB, 03/27/22 9:00:00 PST digoxin (digoxin), 0.125 mg, ORAL, DAILY, TAB, 03/27/22 9:00:00 PST docusate (docusate), 100 mg, ORAL, BID, CAP, 03/26/22 21:00:00 PST furosemide (furosemide), 20 mg, ORAL, DAILY, TAB, 03/27/22 9:00:00 PST glucagon (glucagon), 1 mg, SUBQ, As directed, PRN, Blood Glucose, INJ, 03/27/22 8:30:00 PST glucose (glucose 40% oral gel), 15 gm = 37.5 mL, ORAL, As directed, PRN, Blood Glucose, GEL, 03/27/22 8:30:00 PST glucose (Dextrose 50% Inj 50 mL), = 50 mL, IV, As directed, PRN, Blood Glucose, INJ, 03/27/22 8:30:00 PST glucose (Dextrose 50% Inj 50 mL), = 25 mL, IV, As directed, PRN, Blood Glucose, INJ, 03/27/22 8:30:00 PST insulin regular (insulin regular Sliding Scale Med (Body wt 70-100kg)), sliding scale, SUBQ, AC&Bed, INJ, 03/26/22 21:00:00 PST levETIRAcetam (Keppra), 500 mg, ORAL, BID, TAB, 03/26/22 21:00:00 PST lisinopril (lisinopril), 10 mg, ORAL, DAILY, TAB, 03/27/22 9:00:00 PST magnesium hydroxide (magnesium hydroxide), = 30 mL, ORAL, DAILY, PRN, Constipation, ORAL SUSP, 03/26/22 20:32:00 PST metoprolol (Metoprolol Tartrate), 25 mg, ORAL, BID, TAB, 03/26/22 21:00:00 PST nicotine (nicotine 14 mg/day Patch), 14 mg, TOP, DAILY, PATCH, 03/27/22 12:54:00 PST tamsulosin (tamsulosin), 0.4 mg, ORAL, QBedtime, CAP, 03/26/22 21:00:00 PST traMADol (traMADol), 50 mg, ORAL, Q6H, PRN, Pain-Moderate (Scale 4-6), TAB, 03/27/22 12:54:00 PST traMADol (traMADol), 100 mg, ORAL, Q6H, PRN, Pain-Severe (Scale 7-10), TAB, 03/27/22 12:54:00 PST Ambulate CBC w Differential Chair Chair Communication Communication Communication Communication Comprehensive Metabolic Panel CMP Continue Blankenship CRPhs CReactive Protein HighSensitivity Differential Automated* Fingerstick/Capillary Blood Sugar Fingerstick/Capillary Blood Sugar Full Code Hypoglycemia Protocol Hypoglycemia Protocol Incentive Spirometry Education Intake and Output Knee Rt 2 Vw Magnesium Level Notify Physician Nutritional Services Consult Occupational Therapy Eval and Treat per protocol Oxygen Therapy Physical Therapy Eval and Treat per protocol POC Glucose Panel POC Glucose Panel POC Glucose Panel POC Glucose Panel POC Glucose Panel POC Glucose Panel POC Glucose Panel Precautions Regular Diet Respiratory Assessment Sed Rate (ESR) AUTO Serum Indices Cook Dinner Consult Speech Therapy Eval and Treat per protocol Straight Cath Updraft Nebulizer Treatment Updraft Nebulizer Treatment Updraft Nebulizer Treatment Uric Acid Level US Lower Ext Vein Duplex Rt Vital Signs VTE Prophylaxis Guidelines Weigh Patient Disposition: Swing Bed Anticipated DC: once abx/rehab is complete Place of DC: home with family with HHN/PT/OT [1] Hospitalist Admission H&P; MD Omid, [facility] 03/27/2022 11:59 PST [id number] Male 03/28/2022 [facility] Lower Ext Vein Duplex Rt EXAM: Right extremity venous duplex study CLINICAL INDICATION: Swelling COMPARISON: None TECHNIQUE: Venous duplex evaluation performed using 4 MHz transducer. Sagittal and axial saenz scale and color Doppler images, including compression images, obtained of the right common femoral, femoral, popliteal, posterior tibial veins. Spectral wave forms from the segments also recorded. FINDINGS: No DVT IMPRESSION: 1. Normal Signed by: Chapo Lowery on 03/28/2022 6:21 AM Final 03/28/2022 58 [facility] History and Physical Examination Patient: SHERRON SURESH ? Age: 76 years?Legal Sex: MALE?: 1945 Date of Service 03/27/2022 11:59 PST Chief Complaint SWING BED History of Present Illness 76 yo male with hx of HTN, HLD, tob abuse, COPD, pre-diabetes, s/p carotid endarterectomy 02/21/22 who is admitted to [facility] [place] for cont IV Abx therapy for MSSA Bacteremia with IV Ancef thru 04/10/22 and rehab for weakness after an acute hospitalization where he was treated for an acute CVA with tPA and he suffered a seizure and developed atrial fibrillation. Has a blankenship catheter for urine retention - has not had any problems with urination previously and no dx of prostate problems.? 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 [facility].? Had his carotid stent placed there 02/21/22. His and celinaon are at the bedside helping with history ( is 86 and stepson is 70); , Julián Vasquez, is surrogate decision maker.? I reviewed notes, studies, and imaging reports from the outside facility ? Acute hospitalization Recap: 76-year-old male with history of HTN, HLD, chronic ex-smoker, COPD, new T2DM, s/p carotid endarterectomy on 02/21/22 who was admitted due to AMS to r/o stroke on 03/04. Patient was directly admitted to ICU for tPA. Later,?MRI had no findings of stroke, unremarkable CT angio of the neck and unremarkable During hospitalization, patient developed Afib with RVR and was managed with amiodarone drip. Patient also developed urinary retention and hematuria and was placed on Blankenship. Blood cultures during his hospital stayed showed polymicrobial infection with MSSA, Enterococcus and Citrobacter bacteremia. ID was consulted and he was placed on Unasyn and then switched to Ancef. PER ID This is a difficult case to sort out; however, based on the clinical review of this case, I suspect that the MSSA was likely present on admission, which led to the patient's altered sensorium and atrial fibrillation. ?This is probably masked by the patient's corticosteroids. ?The E. faecalis and Citrobacter likely a complication of a catheter-associated urinary tract infection. The patient has had hematuria; that has now since resolved, but that would be my suspicion for the introduction of the source, especially in light of the fact that there is only gram-negative vanesa identified from the urine at this point . Of note, patient had received steroids due to COPD, earlier in the admission. On 03/20, patient was transferred to ICU after a seizure-like activity/rapid response episode. Next day, he was downgraded. Tele neuro was consulted and recommended Keppra, apixaban, atorvastatin. Patient has remained? stable, neurologically intact. No more seizure-like activity. EEG had been ordered per Tele Neuro, but it was discontinued after consulting our neurologist who recommended to cancel it, as it is not going to give us any further information. Dr. Cagle recommended to continue Keppra and f/u as outpatient. Review of Systems Constitutional: Negative. EENT: Negative. Respiratory: Chronic Cough, occ RIVERA Cardiovascular: Negative. Gastrointestinal: Negative. Genitourinary: Negative. Hematology/Lymphatics: Negative. Endocrine: Negative. Immunologic: Negative. Musculoskeletal: R leg pain edema - from great toe to the back of the knee Skin: Negative. Neurologic: Negative. Psychiatric: Negative. ? Review of Systems was completed. ? Physical Exam Vitals and Measurements T: 98.0 F HR: 69(Apical) HR: 82 RR: 18 BP: 126/74 SpO2: 97% O2 Delivery: Nasal cannula O2 Flow: 1L/min HT:?180.34 cm?WT:?86.3 kg(Dose Calc Wt.)?WT:?86.3 kg?BMI:?26.54 kg/m2 ?Shock Index: ?0.558 03/27/22 07:29 General Appearance: No acute distress. HEENT: PERRL,EOMI B, neck supple Cardiac: Normal rate and rhythm, pulses 2+ B DP Lungs: Insp/Exp wheezing Abdomen: Positive bowel sounds. Soft, non-distended, non-tender to palp Musculoskeletal: Rt knee - edema, no erythema, pain with ROM, ttp ant and post aspect. Rt Foot - min edema at dorsum, no erythema, great toe min ttp Neurological: No focal deficits Skin: Skin norm Genitalia: Deferred. Psychiatric: Demonstrated good judgment and reason Assessment/Plan _ Acute respiratory failure with hypoxia (Acute respiratory failure with hypoxia, J96.01) - will cont oxygen support and wean as tolerated - pt not on home oxygen prior to acute events - disc with pt and family - given baseline chronic lung disease and prolonged smoking hx may req usp oxygen therapy ( has oxygen for nite time use at home, says that was using at home when he had episodes of severe SOB) ? Atrial fibrillation with RVR (Unspecified atrial fibrillation, I48.91) - currently NSR - will cont the aniticoag, B avis, Echo (03/05/22)?- showed EF 55-60% ? COPD without exacerbation (Chronic obstructive pulmonary disease, unspecified, J44.9) - will cont on inhaled steroids and breathing tx - will get resp therapy consult, give pt IS ? Generalized weakness (Weakness, R53.1) - will admit to rehab - get PT/OT/ST eval and tx - pt has supportive family, will return home with them, is motivated to return to [facility] Ordered: Admission Status ? History of TIA (transient ischemic attack) (Personal history of transient ischemic attack (TIA), and cerebral infarction without residual deficits, Z86.73) - reviewed records from outside facility - pt received tx with tPA on 03/04/22 for likely stroke, had consult with Dr Cagle, neurologoy - cont chol, bp control, anticoagulation - disc high risk of re-stroke with multiple RF and cont tob abuse ? Hyperglycemia (Hyperglycemia, unspecified, R73.9) - will cont to monitor - likely sugar was elevated from steroids received and acute stress - per pt and family has no dx of DM ? MSSA bacteremia (Bacteremia, R78.81) - admit for continued IV Abx therapy for MSSA bacteremia (polymicrobial infection per ID, Dr Fernandez notes) - will cont IV abx therapy with 2 gn Ancef Q8 thru 04/10/22 (4 weeks 03/13/22 thru 04/10/22) - will monitor weekly labs - CBC/CMP/ESR/CRP-hs ? Prediabetes (Prediabetes, R73.03) - hgA1c 6.4 03/11/22 - will cont FSBS, SSI coverage, CCD diet, monitor closely and adj medication - likely higher sugars due to steroid therapy and acute stress ? Right knee pain (Pain in right knee, M25.561) - pain and swelling started in last 24 hours, - will r/o acute gout attack, will check xray and u/s to r/o DVT - ok for elevation and cold compress, take meds as needed for pain ? Seizure (Unspecified convulsions, R56.9) - one episode, had the tele-neuro consult that rec? kecynthiara - will give lorazepam IV for acute sustained seizure - will cont seizure precaution - needs f/u with Dr Cagle ? Tobacco abuse (Tobacco use, Z72.0) - disc need for cessation - disc high risk for re-stroke - cont nicotine patch ? Urinary catheter present (Presence of urogenital implants, Z96.0) - cont blankenship care per protocol ? Urine retention (Retention of urine, unspecified, R33.9) - cont meds and will cont with bladder training - disc that poss had some underlying prostate enlargement that was unknown -? disc that as gets more moble and stable from his acute illness normal bladder functions more likely to return ? ? Orders: acetaminophen (acetaminophen), 500 mg, ORAL, Q6H, PRN, Pain-Mild (Scale 1-3), TAB, 03/26/22 20:32:00 PST albuterol-ipratropium (DuoNeb), = 3 mL, INH, Q6H7, NEB AMP, 03/27/22 13:00:00 PST albuterol-ipratropium (DuoNeb), = 3 mL, INH, Q4H7, PRN, Shortness of breath, NEB AMP, 03/27/22 12:55:00 PST apixaban (Eliquis), 5 mg, ORAL, BID, Indication = Atrial Fibrillation, TAB, 03/26/22 21:00:00 PST atorvastatin (atorvastatin), 80 mg, ORAL, DAILY, TAB, 03/26/22 19:46:00 PST budesonide (budesonide 0.25 mg/2 mL Inhal Susp), 0.5 mg, INH, Q12H, NEB AMP, 03/27/22 13:00:00 PST ceFAZolin (Ancef), 2 gm, IVPB, [id number], Indication= Bacteremia / Fungemia, INJ, 03/26/22 20:00:00 PST, Stop date 04/10/22 3:59:00 PST cholecalciferol (cholecalciferol), 25 mcg, ORAL, DAILY, TAB, 03/27/22 9:00:00 PST digoxin (digoxin), 0.125 mg, ORAL, DAILY, TAB, 03/27/22 9:00:00 PST docusate (docusate), 100 mg, ORAL, BID, CAP, 03/26/22 21:00:00 PST furosemide (furosemide), 20 mg, ORAL, DAILY, TAB, 03/27/22 9:00:00 PST glucagon (glucagon), 1 mg, SUBQ, As directed, PRN, Blood Glucose, INJ, 03/27/22 8:30:00 PST glucose (glucose 40% oral gel), 15 gm = 37.5 mL, ORAL, As directed, PRN, Blood Glucose, GEL, 03/27/22 8:30:00 PST glucose (Dextrose 50% Inj 50 mL), = 50 mL, IV, As directed, PRN, Blood Glucose, INJ, 03/27/22 8:30:00 PST glucose (Dextrose 50% Inj 50 mL), = 25 mL, IV, As directed, PRN, Blood Glucose, INJ, 03/27/22 8:30:00 PST insulin regular (insulin regular Sliding Scale Med (Body wt 70-100kg)), sliding scale, SUBQ, AC&Bed, INJ, 03/26/22 21:00:00 PST levETIRAcetam (Keppra), 500 mg, ORAL, BID, TAB, 03/26/22 21:00:00 PST lisinopril (lisinopril), 10 mg, ORAL, DAILY, TAB, 03/27/22 9:00:00 PST magnesium hydroxide (magnesium hydroxide), = 30 mL, ORAL, DAILY, PRN, Constipation, ORAL SUSP, 03/26/22 20:32:00 PST metoprolol (Metoprolol Tartrate), 25 mg, ORAL, BID, TAB, 03/26/22 21:00:00 PST nicotine (nicotine 14 mg/day Patch), 14 mg, TOP, DAILY, PATCH, 03/27/22 12:54:00 PST tamsulosin (tamsulosin), 0.4 mg, ORAL, QBedtime, CAP, 03/26/22 21:00:00 PST traMADol (traMADol), 50 mg, ORAL, Q6H, PRN, Pain-Moderate (Scale 4-6), TAB, 03/27/22 12:54:00 PST traMADol (traMADol), 100 mg, ORAL, Q6H, PRN, Pain-Severe (Scale 7-10), TAB, 03/27/22 12:54:00 PST Ambulate CBC w Differential Chair Chair Communication Communication Communication Communication Comprehensive Metabolic Panel CMP Continue Blankenship CRPhs CReactive Protein HighSensitivity Differential Automated* Fingerstick/Capillary Blood Sugar Fingerstick/Capillary Blood Sugar Full Code Hypoglycemia Protocol Hypoglycemia Protocol Incentive Spirometry Education Intake and Output Knee Rt 2 Vw Magnesium Level Notify Physician Nutritional Services Consult Occupational Therapy Eval and Treat per protocol Oxygen Therapy Physical Therapy Eval and Treat per protocol POC Glucose Panel POC Glucose Panel POC Glucose Panel POC Glucose Panel POC Glucose Panel POC Glucose Panel Precautions Regular Diet Respiratory Assessment Sed Rate (ESR) AUTO Serum Indices Cook Dinner Consult Speech Therapy Eval and Treat per protocol Straight Cath Updraft Nebulizer Treatment Updraft Nebulizer Treatment Updraft Nebulizer Treatment Uric Acid Level US Lower Ext Vein Duplex Rt Vital Signs VTE Prophylaxis Guidelines Weigh Patient ? Disposition:? Swing Bed Anticipated DC: once IV ABx and rehab complete Place of DC: home with family with HHN/PT/OT Allergies NKA Problem List Active Problems Body mass index 30+ - obesity Elevated serum cholesterol High blood pressure TIA (transient ischemic attack) Gout Pre-Diabetes Chronic Cough COPD (takes inhalers, no home oxygen) Atrial Fibrillation (dx in acute hospital) Procedure/Surgical History L carotid endarterectomy/stent 02/21/22 (at [facility]) Medications Inpatient acetaminophen, 500 mg, 1 ea, ORAL, Q6H, PRN Ancef, 2 gm, 1 Vial, IVPB, [id number] atorvastatin, 80 mg, 2 Tab, ORAL, DAILY budesonide 0.25 mg/2 mL Inhal Susp, 0.5 mg, 2 mL, INH, Q12H cholecalciferol, 25 mcg, 1 Tab, ORAL, DAILY Dextrose 50% Inj 50 mL, 25 mL, IV, As directed, PRN Dextrose 50% Inj 50 mL, 50 mL, IV, As directed, PRN digoxin, 0.125 mg, 1 Tab, ORAL, DAILY docusate, 100 mg, 1 Cap, ORAL, BID DuoNeb, 3 mL, INH, Q4H7, PRN DuoNeb, 3 mL, INH, Q6H7 Eliquis, 5 mg, 1 Tab, ORAL, BID furosemide, 20 mg, 1 Tab, ORAL, DAILY glucagon, 1 mg, SUBQ, As directed, PRN glucose 40% oral gel, 15 gm, 37.5 mL, ORAL, As directed, PRN insulin regular Sliding Scale Med (Body wt 70-100kg), sliding scale, SUBQ, AC&Bed Keppra, 500 mg, 1 Tab, ORAL, BID lisinopril, 10 mg, 1 Tab, ORAL, DAILY magnesium hydroxide, 30 mL, ORAL, DAILY, PRN Metoprolol Tartrate, 25 mg, 1 Tab, ORAL, BID nicotine 14 mg/day Patch, 14 mg, 1 Patch, TOP, DAILY tamsulosin, 0.4 mg, 1 Cap, ORAL, QBedtime traMADol, 50 mg, 1 Tab, ORAL, Q6H, PRN traMADol, 100 mg, 2 Tab, ORAL, Q6H, PRN Home atorvastatin 80 mg oral tablet, 80 mg, 1 Tab, ORAL, DAILY cholecalciferol 1000 intl units oral tablet, 25 mcg, 1 Tab, ORAL, DAILY digoxin 125 mcg (0.125 mg) oral tablet, 0.125 mg, 1 Tab, ORAL, DAILY docusate-senna 50 mg-8.6 mg oral capsule Eliquis 5 mg oral tablet, 5 mg, 1 Tab, ORAL, BID furosemide 20 mg oral tablet, 20 mg, 1 Tab, ORAL, DAILY insulin lispro 100 units/mL injectable solution, correction scale, SUBQ, AC&Bed lisinopril 10 mg oral tablet, 10 mg, 1 Tab, ORAL, DAILY metoprolol tartrate 25 mg oral tablet, 25 mg, 1 Tab, ORAL, BID tamsulosin 0.4 mg oral capsule, 0.4 mg, 1 Cap, ORAL, QBedtime Lab Results ? Immunology ? ? SARS-CoV-2 Source Nasopharyngeal? 03/26/22 14:30 PST Patient From Congregate Area? No? 03/26/22 14:30 PST Health Care Worker? No? 03/26/22 14:30 PST SARS-CoV-2 Molecular Negative? 03/26/22 14:30 PST Symptomatic per CDC? Yes? 03/26/22 14:30 PST SARS-CoV-2 First test? Unknown? 03/26/22 14:30 PST SARS-CoV-2 Is the Patient Hospitalized? Yes? 03/26/22 14:30 PST SARS-CoV-2 Is the Patient in ICU? No? 03/26/22 14:30 PST SARS-CoV-2 Is the Patient ? No? 03/26/22 14:30 PST Social History ???Abuse/Intent to Harm ?CSSRS Risk Level: No risk (0-24) ? *Alcohol Screen How often do you have a drink containing alcohol? Never (0). How many standard drinks containing alcohol do you have on a typical day? Never (0). How often do you have six or more drinks on one occasion? Never (0). Ready to change: N/A. Previous treatment: None. *Home/Environment Screen Living Situation: Home/Independent. Lives with: Spouse. Has emotional support? Yes. *Nutrition Screen No (0) Decreased appetite:. If pt unsure/unable, answer next question (0), No (0), Nutritional Risks: No nutritional risk triggers identified. Type of diet: Regular diet. *Substance Abuse Screen Do you have concerns about substance abuse for yourself or in your household? No. Current or past use? Never. How often do you use substances or drugs in your life? Never used. *Tobacco Use Screen Is there a smoker in the household? No. Do you have concerns about tobacco use in household? No. Over the past 30 days, what and how much have you smoked? Former smoker, quit more than 30 days ago. Over the past 30 days, what has been your smokeless tobacco use? Never. Are you ready to quit? N/A. Started at age: 12 Years. Stopped at age: 75 Years. Number of years: 64. Receiving counseling during visit/stay: No. Family History Stroke in Brother Electronically signed by: MD Anne Tasha Signed on: 28-Mar-2022 07:09 PST 03/27/2022 [facility] Progress Note Patient: SHERRON SURESH Age: 76 years Legal Sex: Male : 1945 Author: DO Fernandez Mina Basic Information Time Seen: Date and Time seen:: 03/22/2022 14:39:00. no c/o n/v/d. Review of Systems ROS reviewed as documented in chart Health Status Current medications: None, Active inpatient medications ACTIVE INPT MEDS: apixaban (Eliquis) 5 mg ORAL BID atorvastatin 80 mg ORAL QBedtime ceFAZolin (Ancef) 2 gm IVPB [id number] cholecalciferol 25 mcg ORAL DAILY digoxin 0.125 mg ORAL DAILY furosemide 20 mg ORAL DAILY insulin lispro (insulin lispro Correction Scale Med (Body wt 70-100kg)) SUBQ AC&Bed levETIRAcetam (Keppra) 500 mg ORAL BID lisinopril 10 mg ORAL DAILY metoprolol 25 mg ORAL BID pantoprazole (Protonix) 40 mg ORAL ACBkfst Pharmacy Communication N/A As directed Pharmacy Communication N/A As directed Pharmacy Consult N/A As directed tamsulosin 0.4 mg ORAL QBedtime ACTIVE PRN MEDS: acetaminophen 650 mg ORAL Q6H dextromethorphan-guaiFENesin (Robitussin DM) 10 mL ORAL Q4H glucagon 1 mg SUBQ As directed glucose (Dextrose 50% Inj 50 mL) 25 mL IV As directed glucose (Dextrose 50% Inj 50 mL) 50 mL IV As directed glucose (glucose 40% oral gel) 15 gm ORAL As directed levalbuterol (Xopenex) 1.25 mg INH Q4H metoprolol (metoprolol IV) 5 mg IV PUSH Q6H nalOXone (Narcan) 0.2 mg IV PUSH As directed traMADol 50 mg ORAL Q6H ONE TIME MEDS: (Completed) magnesium sulfate 2 gm IVPB ONCE ACTIVE IV MEDS: None Physical Examination Intake and Output Intake and Output Fluid Balance Intake and Output as of 16:28 (24 hour periods starting at 06:00) 03/26/22 03/25/22 03/24/22 Intake mL 530 440 250 Output mL 0 3750 3300 Fluid Balance 530 3310 -3050 VS/Measurements: Inpt. Vital signs (ST) Vital Signs (last 24 hrs) Last Charted Minimum Maximum Temp(?F) 98.5 (B 15:31 PST) 97.5 (B 07:35 PST) 98.5 (B 15:31 PST) Heart Rate 70 (B 15:26 PST) 70 (MAR 26 15:26 PST) H 119 (B 19:43 PST) Resp Rate 18 (B 15:26 PST) 17 (B 05:16 PST) 20 (B 19:42 PST) SBP 131 (B 15:26 PST) 116 (B 07:35 PST) H 146 (MAR 26 03:53 PST) DBP 73 (B 15:26 PST) 63 (B 11:15 PST) 74 (B 19:41 PST) SpO2 99 (B 15:31 PST) C 87 (B 19:43 PST) 100 (B 11:16 PST) OXYFLOW 1 (MAR 26 15:31 PST) 1 (FEB 14 15:31 PST) 2 (FEB 13 19:42 PST) OXYDELIVERY Nasal cannula Nasal Nasal (B 14 15:31 PST) (B 13 19:42 PST) (B 13 19:42 PST) , Measurements 03/26/2022 06:04 PST Weight (kg) 85.8 kg Weight measured method Bed scale 03/25/2022 09:00 PST Weight (kg) 89.1 kg . nontoxic chest gae abd soft ext warm Review / Management Laboratory Results Labs (Last four charted values) WBC 9.10 (FEB 14) 8.70 (FEB 13) 9.10 (FEB 12) 8.80 (FEB 11) Hgb L 9.9 (FEB 14) L 9.8 (FEB 13) L 9.0 (FEB 12) L 9.1 (FEB 11) Hct L 30.3 (FEB 14) L 30.1 (FEB 13) L 26.8 (FEB 12) L 27.9 (FEB 11) Plt H 423 (FEB 14) H 439 (FEB 13) 399 (FEB 12) H 443 (FEB 11) Na 138 (FEB 14) L 134 (FEB 13) 137 (FEB 12) 137 (FEB 11) K 4.4 (FEB 14) 4.4 (FEB 13) 4.3 (FEB 12) 4.3 (FEB 11) CO2 30 (FEB 14) 29 (FEB 13) 30 (FEB 12) 32 (FEB 11) Cl L 99 (FEB 14) L 95 (FEB 13) 102 (FEB 12) L 100 (FEB 11) Cr 0.9 (FEB 14) 0.9 (FEB 13) 0.9 (FEB 12) 0.9 (FEB 11) BUN 15 (FEB 14) 16 (FEB 13) 13 (FEB 12) 9 (FEB 11) Glucose Random H 155 (FEB 14) H 145 (FEB 13) 100 (FEB 12) H 112 (FEB 11) Mg L 1.7 (FEB 14) 2.1 (FEB 13) L 1.7 (FEB 12) 2.0 (FEB 11) Phos 2.6 (FEB 14) 3.0 (FEB 13) 3.0 (MAR 24) 3.1 (MAR 23) Ca L 8.5 (MAR 26) L 8.4 (MAR 25) L 8.4 (MAR 24) L 8.5 (MAR 23) PT H 14.7 (MAR 20) H 14.8 (MAR 07) 14.2 (MAR 04) INR H 1.2 (MAR 20) H 1.2 (MAR 07) H 1.2 (MAR 04) PTT H 37.9 (MAR 20) L 21.3 (MAR 17) H 37.5 (MAR 17) 35.6 (MAR 17) DIAGNOSTIC DATA: 03/10/22: Blood culture 2/2 sets, Staphylococcus aureus, enterococcus fecalis, Citrobacter koseri. Cirtobacter koseri 03/10/22: Blood culture 2/2 sets Citrobacter koseri, Enterococcus, S. aureus: blood culture biofire enterobacteriacae, staph aureus. e faecalis 03/12/22: Blood culture 1/2 sets in progress gpc clusters: S aureus 03/13/22: Blood culture 2/2 sets neg. 03/15/22: Blood culture 2/2 sets neg. 03/10 urine culture: Greater than 100,000 colony-forming units and gram-negative vanesa. 03/10 UA: 46 WBCs, 15 RBCs. 03/04/22: MRSA screen negative. 03/06 MRI brain without contrast: Poor study. Echocardiogram 03/05/22: A bubble study not completed due to lack of cooperation, due to quality EF 55-60. No thrombus. No pericardial effusion. 03/04 CTA head and neck. No hemodynamically significant stenosis. 03/04/22 CT brain: Atrophy, no hemorrhage. 03/11/22: urine culture:>100,000 cfu/ml Klebsiella oxytoca <10,000 cfu/ml Citrobacter koseri 03/21/22 Treponema ab negative. 03/26/22: SARS CoV2 neg. 03/05/22: TTE Summary Technically limited study, poor acoustic windows. Due to the quality of the echocardiogram bubble study not completed. Ejection fraction is visually estimated at 55-60%. No obvious evidence of cardiac source thrombus. Mild left atrial enlargement. Right ventricle is not well visualized. Right atrium is not well visualized. Moderate to severe aortic insufficiency. Thickened mitral valve leaflets with reduced excursion. Tricuspid valve was not well visualized. Insufficient tricuspid regurgitation jet to calculate RVSP. Mild pulmonic regurgitation. Normal size aortic root. Normal size of IVC with normal inspiratory collapse. There is no evidence of pericardial effusion. 03/04/22 CTA head and neck; No evidence of hemodynamically significant stenosis in the neck. No dissection or occlusion Inflammatory changes surrounding the distal left common carotid and carotid bulb suggest prior endarterectomy. No evidence of hemodynamically significant stenosis in the head. No aneurysm or occlusion. No evidence of vascular mass. 03/04/22: ct brain Impression: Atrophy. No acute hemorrhage. Anti-Infective Medications Ordered Medications ceFAZolin, 2 gm = 1 Vial, IVPB, [id number], Indication= Bloodstream Infection, Routine, INJ, 03/19/22 20:00:00 PST, 4 Week(s), Stop date 04/16/22 19:59:00 PST, 200 mL/hr, 30 min Completed Medications ampicillin-sulbactam, 3 gm = 1 Vial, IVPB, [id number], Indication= Bacteremia / Fungemia, INJ, 03/11/22 18:00:00 PST, 7 Day(s), Stop date 03/18/22 23:59:00 PST, 200 mL/hr, 30 min vancomycin, 2,000 mg, IVPB, ONCE, Indication= Bloodstream Infection, IV SOLN, 03/11/22 4:00:00 PST, Stop date 03/11/22 4:00:00 PST, 250 mL/hr, 120 min Discontinued Medications ceFAZolin, 2 gm = 1 Vial, IVPB, Q8H, Indication= Bloodstream Infection, NOW, INJ, 03/19/22 9:52:00 PST, 4 Week(s), Stop date 04/16/22 9:51:00 PST, 200 mL/hr, 30 min cefTRIAXone, 1 gm, IVPB, Q24H, Indication= Sepsis, INJ, 03/10/22 12:52:00 PST vancomycin, 1,000 mg, IVPB, [id number], Indication= Bloodstream Infection, IV SOLN, 03/11/22 22:00:00 PST Impression and Plan Polymicrobial bacteremia, suspect MSSA bacteremia was present on admission and other organisms are secondary to Blankenship catheter.03/05 TTE neg. No evidence of hematogenous seeding. Ancef 2 g iv q 8 03/19/22 hours for 4 weeks 03/13-04/10/22. COPD exacerbation status post methylprednisolone. DM. A1c 6.1, new diagnosis. Dyslipidemia. Atrial fibrillation. Stroke, status post tPA 03/04. Atrial fibrillation with RVR. Carotid artery disease, status post left carotid endarterectomy 02/21/2022. MLC 03/19/22 No change from ID. Continue ancef thru 04/10. Weekly cbc, cmp. Tele-neuro notes reviewed. Face to face time 15 minutes. Total time spent 50 minutes. [id number] Male 03/27/2022 [facility] Emergencyist Progress Note Patient: SHERRON SURESH Age: 76 years Legal Sex: MALE : 1945 Date of Service 03/25/2022 20:24 PST Subjective 76-year-old male with history of HTN, HLD, chronic ex-smoker, new T2DM, carotid endarterectomy FEB 21, 2022. BIBA to ED with AMS of GCS 8 admitted for possible stroke. No overnight events. Relevant laboratory results and imaging reviewed. Patient seen sitting up at beside after eating breakfast. He is slightly hard of hearing. He reports feeling well with decent appetite, able to finish half of his hospital meals. He denies any recent seizure-like symptoms, fever, chills, nausea, chest pain, SOB, vomiting, or diarrhea. Patient was noted to have a slight cough about once every minute or two during the interview. Objective Vitals and Measurements T: 97.8 F HR: 99(Apical) HR: 119 RR: 20 BP: 126/74 SpO2: 87% O2 Delivery: Nasal cannula O2 Flow: 2L/min HT: 180.34 cm WT: 89.1 kg BMI: 26.2 kg/m2 Intake and Output as of 20:24 (24 hour periods starting at 06:00) 03/25/22 03/24/22 03/23/22 Intake mL 340 250 200 Output mL 2700 3300 4350 Fluid Balance -2360 -3050 -4150 Physical Exam Vital Signs (last 24 hrs) Last Charted Minimum Maximum Temp(?F) 97.8 (FEB 13 07:19 PST) 97.8 (FEB 12 15:23 PST) 98.4 (FEB 12 19:39 PST) Heart Rate 99 (B 13 07:20 PST) 70 (FEB 12 15:23 PST) 99 (FEB 13 07:20 PST) Resp Rate 17 (B 13 02:53 PST) 17 (FEB 13 02:53 PST) 18 (FEB 12 19:39 PST) SBP 127 (B 07:20 PST) 123 (FEB 12 11:23 PST) H 151 (FEB 12 23:03 PST) DBP 64 (B 07:20 PST) 64 (B 07:20 PST) 74 (FEB 12 23:03 PST) SpO2 98 (B 07:20 PST) 96 (FEB 12 19:37 PST) 99 (FEB 12 15:23 PST) General Appearance: 76-year-old male that appears his age. HEENT: NCAT. Normal oropharynx. Neck supple without lymphadenopathy. Cardiac: Normal sinus rhythm. No murmurs. Lungs: Clear to auscultation. Abdomen: Soft, non-distended, non-tender. Neurological: Grossly intact motor and sensory examination. Skin: No rash present. Psychiatric: Alert and interactive with normal affect. (Last three charted values) WBC 8.70 (FEB 13) 9.10 (FEB 12) 8.80 (FEB 11) Hgb L 9.8 (FEB 13) L 9.0 (FEB 12) L 9.1 (FEB 11) Hct L 30.1 (FEB 13) L 26.8 (FEB 12) L 27.9 (FEB 11) Plt H 439 (FEB 13) 399 (FEB 12) H 443 (FEB 11) Na L 134 (FEB 13) 137 (FEB 12) 137 (FEB 11) K 4.4 (FEB 13) 4.3 (FEB 12) 4.3 (FEB 11) CO2 29 (FEB 13) 30 (FEB 12) 32 (FEB 11) Cl L 95 (FEB 13) 102 (FEB 12) L 100 (FEB 11) Cr 0.9 (FEB 13) 0.9 (FEB 12) 0.9 (MAR 23) BUN 16 (MAR 25) 13 (MAR 24) 9 (MAR 23) Glu Rndm H 145 (MAR 25) 100 (MAR 24) H 112 (MAR 23) Mg 2.1 (MAR 25) L 1.7 (MAR 24) 2.0 (MAR 23) Phos 3.0 (MAR 25) 3.0 (MAR 24) 3.1 (MAR 23) Ca L 8.4 (MAR 25) L 8.4 (MAR 24) L 8.5 (MAR 23) PT H 14.7 (MAR 20) H 14.8 (MAR 07) 14.2 (MAR 04) INR H 1.2 (MAR 20) H 1.2 (MAR 07) H 1.2 (MAR 04) PTT H 37.9 (MAR 20) L 21.3 (MAR 17) H 37.5 (MAR 17) Inpatient Medications Scheduled: apixaban 5 mg Tab 5 mg 1 Tab, ORAL, BID atorvastatin 40 mg Tab 80 mg 2 Tab, ORAL, QBedtime ceFAZolin 2 gm 1 Vial, IVPB, [id number] cholecalciferol (D3) 25 mcg (1,000 IU) Tab 25 mcg 1 Tab, ORAL, DAILY digoxin 0.125 mg Tab 0.125 mg 1 Tab, ORAL, DAILY furosemide 20 mg Tab 20 mg 1 Tab, ORAL, DAILY insulin lispro (Admelog) 100 units/mL, 3 mL MDV correction scale, SUBQ, AC&Bed levETIRAcetam 500 mg Tab 500 mg 1 Tab, ORAL, BID lisinopril 10 mg Tab 10 mg 1 Tab, ORAL, DAILY metoprolol tartrate 25 mg Tab 25 mg 1 Tab, ORAL, BID pantoprazole 40 mg EC Tab 40 mg 1 Tab, ORAL, ACBkfst Pharmacy Communication No Anticoag/antithrombotic/antiplat elet, N/A, As directed Pharmacy Communication As Directed, N/A, As directed Pharmacy Consult Pharmacotherapy Review, N/A, As directed tamsulosin 0.4 mg Cap 0.4 mg 1 Cap, ORAL, QBedtime Continuous: PRN: acetaminophen 325 mg Tab 650 mg 2 ea, ORAL, Q6H Dextrose 50% Inj 50 mL Syr 25 mL, IV, As directed Dextrose 50% Inj 50 mL Syr 50 mL, IV, As directed glucagon 1 mg Inj SDV 1 mg, SUBQ, As directed Glucose 40% Oral Gel 15 gm 15 gm 37.5 mL, ORAL, As directed levalbuterol 1.25 mg/3 mL Neb Amp 3 mL 1.25 mg 3 mL, INH, Q4H LORazepam 2 mg/mL, 1 mL Inj 2 mg 1 mL, IV, ONCE metoprolol tartrate 1 mg/mL Inj 5 mL 5 mg 5 mL, IV PUSH, Q6H nalOXone 0.4 mg/mL, 1 mL Inj 0.2 mg 0.5 mL, IV PUSH, As directed traMADol 50 mg Tab 50 mg 1 Tab, ORAL, Q6H Lab Results Labs All 24H Lab Results Date Auto Neutrophil Percent 74.6 % 03/25/22 06:01 PST Auto Neutrophil Absolute 6.5 K/mm3 03/25/22 06:01 PST Auto Lymphocyte Percent 12.5 % 03/25/22 06:01 PST Auto Lymphocyte Absolute 1.1 K/mm3 03/25/22 06:01 PST Auto Monocyte Percent 11.8 % (HIGH) 03/25/22 06:01 PST Auto Monocyte Absolute 1.0 K/mm3 03/25/22 06:01 PST Auto Basophil Percent 0.4 % 03/25/22 06:01 PST Auto Basophil Absolute 0.0 K/mm3 03/25/22 06:01 PST Auto Eosinophil Percent 0.7 % 03/25/22 06:01 PST Auto Eosinophil Absolute 0.1 K/mm3 03/25/22 06:01 PST WBC 8.70 K/mm3 03/25/22 06:01 PST RBC 3.31 M/mm3 (LOW) 03/25/22 06:01 PST HGB 9.8 gm/dL (LOW) 03/25/22 06:01 PST HCT 30.1 % (LOW) 03/25/22 06:01 PST MCV 90.9 fL 03/25/22 06:01 PST MCH 29.7 pg 03/25/22 06:01 PST MCHC 32.7 gm/dL 03/25/22 06:01 PST RDW 14.8 % (HIGH) 03/25/22 06:01 PST PLT 439 K/mm3 (HIGH) 03/25/22 06:01 PST MPV 8.6 fL 03/25/22 06:01 PST Sodium Level 134 mmol/L (LOW) 03/25/22 06:01 PST Potassium Level 4.4 mmol/L 03/25/22 06:01 PST Chloride Level 95 mmol/L (LOW) 03/25/22 06:01 PST CO2/Carbon Dioxide 29 mmol/L 03/25/22 06:01 PST Anion Gap 10 mmol/L 03/25/22 06:01 PST Glucose, Random 145 mg/dL (HIGH) 03/25/22 06:01 PST POCT - Glucose (Capillary) 165 mg/dL (HIGH) 03/25/22 20:17 PST BUN 16 mg/dL 03/25/22 06:01 PST Creatinine 0.9 mg/dL 03/25/22 06:01 PST BUN/Creat Ratio 18 03/25/22 06:01 PST Osmolality, Calculated 272 mOsm/L (LOW) 03/25/22 06:01 PST Calcium Level 8.4 mg/dL (LOW) 03/25/22 06:01 PST Magnesium Level 2.1 mg/dL 03/25/22 06:01 PST Phosphorus Level 3.0 mg/dL 03/25/22 06:01 PST Total Protein 6.8 gm/dL 03/25/22 06:01 PST Albumin Level 2.8 gm/dL (LOW) 03/25/22 06:01 PST Globulin Level 4.0 gm/dL 03/25/22 06:01 PST A/G Ratio 0.7 (LOW) 03/25/22 06:01 PST Bilirubin, Total 0.6 mg/dL 03/25/22 06:01 PST Bilirubin, Direct 0.1 mg/dL 03/25/22 06:01 PST Bilirubin, Indirect (Calc) 0.5 mg/dL 03/25/22 06:01 PST AST 13 IntUnit/L (LOW) 03/25/22 06:01 PST ALT 7 IntUnit/L (LOW) 03/25/22 06:01 PST ALP 81 IntUnit/L 03/25/22 06:01 PST eGFR 89 mL/min/1.73m2 03/25/22 06:01 PST Assessment/Plan _ #Concern for CVA (Ruled out) - s/p tPA - MRI was negative, CTA with no LVO - TTE with no thrombus reported( PFO not done) - cont statin, not on antiplatelet agents, discussed with neurology Dr Cagle, the main concern was for cardioembolic process and Eliquis is enough, no need to add antiplatelets #Afib with RVR - Monitor Vital signs q4h, O2 prn - continue digoxin and metoprolol - cont Eliquis #MSSA bacteremia, #Enterococcus and Citrobacter bacteremia - ID recs: Unasyn thru 03/18. Ancef 2 g iv q 8 03/19/22 hours for 4 weeks 03/13-04/10/22. 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 Cagle 03/25, we appreciate your recommendations - continue Keppra and follow up outpatient #Urinary retention Hematuria - resolved #BPH - continue Blankenship catheter needs outpatient urology evaluation - per RN report patient was trialed off Blankenship and was retaining, it had to be placed back - no more hematuria, hgb stable - cont Flomax - US Renal shows normal b/l echogenicity and no hydronephrosis #HTN - On lispro #HLD - Atorvastatin 80 mg Qdaily #DM type II - Insulin lispro correction scale #DVT prophylaxis Continue Eliquis #Status code: Full code Disposition: swing bed for abx course completion (swing bed pending per CM) and neuro cleared, pending EEG - Continue PT at acute rehab Attestation Plan of care was discussed with supervising attending physician, Dr. Lemus. Care team includes: Senior PGY 3 resident, Dr. Chelsie Monsalve. Senior PGY 2 resident, Dr. Nguyễn Rao. Night senior PGY 2 resident, Dr. Bo. Signed, Lionel Watkins PGY1, [facility] I participated in the following activities of this patients care: the medical history, the physical exam, medical decision making. I personally performed: supervision of the patient's care, the medical history, the physical exam and medical decision making. The case was discussed with: resident physician Evaluation and management service: I agree with the evaluation and management decisions made in this patient's care. Results interpretation: I agree with the study interpretation in this patient's care. [id number] Male 03/26/2022 [facility] Progress Note Patient: SHERRON SURESH Age: 76 years Legal Sex: Male : 1945 Author: FILIBERTO Perkins,MSN, Ara Zamudio Basic Information Time Seen: Date and Time seen:: 03/25/2022 15:19:00. 2LNC Review of Systems Denies headache Denies chest pain Denies sob. Denies n/v/d Health Status Current medications: None, Active inpatient medications ACTIVE INPT MEDS: apixaban (Eliquis) 5 mg ORAL BID atorvastatin 80 mg ORAL QBedtime ceFAZolin (Ancef) 2 gm IVPB [id number] cholecalciferol 25 mcg ORAL DAILY digoxin 0.125 mg ORAL DAILY furosemide 20 mg ORAL DAILY insulin lispro (insulin lispro Correction Scale Med (Body wt 70-100kg)) SUBQ Q6H ipratropium 0.5 mg INH TID levETIRAcetam (Keppra) 500 mg ORAL BID lisinopril 10 mg ORAL DAILY metoprolol 25 mg ORAL BID pantoprazole (Protonix) 40 mg ORAL ACBkfst Pharmacy Communication N/A As directed Pharmacy Communication N/A As directed Pharmacy Consult N/A As directed tamsulosin 0.4 mg ORAL QBedtime ACTIVE PRN MEDS: acetaminophen 650 mg ORAL Q6H glucagon 1 mg SUBQ As directed glucose (Dextrose 50% Inj 50 mL) 25 mL IV As directed glucose (Dextrose 50% Inj 50 mL) 50 mL IV As directed glucose (glucose 40% oral gel) 15 gm ORAL As directed levalbuterol (Xopenex) 1.25 mg INH Q4H metoprolol (metoprolol IV) 5 mg IV PUSH Q6H nalOXone (Narcan) 0.2 mg IV PUSH As directed traMADol 50 mg ORAL Q6H ONE TIME MEDS: (Completed) magnesium sulfate 2 gm IVPB ONCE ACTIVE IV MEDS: None Physical Examination Intake and Output Intake and Output Fluid Balance Intake and Output as of 15:19 (24 hour periods starting at 06:00) 03/25/22 03/24/22 03/23/22 Intake mL 240 250 200 Output mL 0 3300 4350 Fluid Balance 240 -3050 -4150 VS/Measurements: Inpt. Vital signs (ST) Vital Signs (last 24 hrs) Last Charted Minimum Maximum Temp(?F) 97.8 (MAR 25 11:33 PST) 97.8 (B 15:23 PST) 98.4 (B 19:39 PST) Heart Rate 94 (MAR 25 11:33 PST) 70 (B 15:23 PST) 99 (B 07:20 PST) Resp Rate 17 (MAR 25 02:53 PST) 17 (B 02:53 PST) 18 (B 19:39 PST) SBP 104 (B 11:33 PST) 104 (B 11:33 PST) H 151 (B 23:03 PST) DBP 69 (B 11:33 PST) 64 (B 07:20 PST) 74 (FEB 23:03 PST) SpO2 97 (B 11:33 PST) 96 (FEB 19:37 PST) 99 (B 15:23 PST) OXYFLOW 2 (B 08:44 PST) 2 (B 20:21 PST) 2 (B 20:21 PST) OXYDELIVERY Nasal cannula Nasal Nasal (MAR 25 08:44 PST) (B 19:39 PST) (B 19:39 PST) , Measurements 03/25/2022 09:00 PST Weight (kg) 89.1 kg 03/24/2022 09:00 PST Weight (kg) 89.1 kg . General: Alert some confusion. Head: Normocephalic Cardiovascular: Regular rate, regular rhythm, no edema Respiratory: B/L clear, Gastrointestinal: Soft, non-tender, non-distended Musculoskeletal: Full rom, Psych: Calm and cooperative Rt mid line intact with no erythema. Review / Management Laboratory Results Labs (Last four charted values) WBC 8.70 (FEB 13) 9.10 (FEB 12) 8.80 (FEB 11) 11.00 (FEB 10) Hgb L 9.8 (FEB 13) L 9.0 (FEB 12) L 9.1 (FEB 11) L 9.0 (FEB 10) Hct L 30.1 (FEB 13) L 26.8 (FEB 12) L 27.9 (FEB 11) L 27.1 (FEB 10) Plt H 439 (FEB 13) 399 (FEB 12) H 443 (FEB 11) H 458 (FEB 10) Na L 134 (FEB 13) 137 (FEB 12) 137 (FEB 11) 136 (FEB 10) K 4.4 (FEB 13) 4.3 (FEB 12) 4.3 (FEB 11) 4.0 (FEB 10) CO2 29 (FEB 13) 30 (FEB 12) 32 (FEB 11) 30 (FEB 10) Cl L 95 (FEB 13) 102 (FEB 12) L 100 (FEB 11) L 97 (FEB 10) Cr 0.9 (FEB 13) 0.9 (FEB 12) 0.9 (FEB 11) 0.9 (FEB 10) BUN 16 (FEB 13) 13 (FEB 12) 9 (FEB 11) 12 (FEB 10) Glucose Random H 145 (FEB 13) 100 (FEB 12) H 112 (FEB 11) H 135 (FEB 10) Mg 2.1 (FEB 13) L 1.7 (FEB 12) 2.0 (FEB 11) 1.8 (FEB 10) Phos 3.0 (FEB 13) 3.0 (FEB 12) 3.1 (FEB 11) 2.9 (FEB 10) Ca L 8.4 (FEB 13) L 8.4 (FEB 12) L 8.5 (FEB 11) L 8.3 (FEB 10) PT H 14.7 (MAR 08) H 14.8 (MAR 07) 14.2 (MAR 04) INR H 1.2 (MAR 20) H 1.2 (MAR 07) H 1.2 (MAR 04) PTT H 37.9 (MAR 20) L 21.3 (MAR 17) H 37.5 (MAR 17) 35.6 (MAR 17) DIAGNOSTIC DATA: 03/10/22: Blood culture 2/2 sets, Staphylococcus aureus, enterococcus fecalis, Citrobacter koseri. Cirtobacter koseri 03/10/22: Blood culture 2/2 sets Citrobacter koseri, Enterococcus, S. aureus: blood culture biofire enterobacteriacae, staph aureus. e faecalis 03/12/22: Blood culture 1/2 sets in progress gpc clusters: S aureus 03/13/22: Blood culture 2/2 sets neg. 03/15/22: Blood culture 2/2 sets neg. 03/10 urine culture: Greater than 100,000 colony-forming units and gram-negative vanesa. 03/10 UA: 46 WBCs, 15 RBCs. 03/04/22: MRSA screen negative. 03/06 MRI brain without contrast: Poor study. Echocardiogram 03/05/22: A bubble study not completed due to lack of cooperation, due to quality EF 55-60. No thrombus. No pericardial effusion. 03/04 CTA head and neck. No hemodynamically significant stenosis. 03/04/22 CT brain: Atrophy, no hemorrhage. 03/11/22: urine culture:>100,000 cfu/ml Klebsiella oxytoca <10,000 cfu/ml Citrobacter koseri 03/21/22 Treponema ab negative. 03/05/22: TTE Summary Technically limited study, poor acoustic windows. Due to the quality of the echocardiogram bubble study not completed. Ejection fraction is visually estimated at 55-60%. No obvious evidence of cardiac source thrombus. Mild left atrial enlargement. Right ventricle is not well visualized. Right atrium is not well visualized. Moderate to severe aortic insufficiency. Thickened mitral valve leaflets with reduced excursion. Tricuspid valve was not well visualized. Insufficient tricuspid regurgitation jet to calculate RVSP. Mild pulmonic regurgitation. Normal size aortic root. Normal size of IVC with normal inspiratory collapse. There is no evidence of pericardial effusion. 03/04/22 CTA head and neck; No evidence of hemodynamically significant stenosis in the neck. No dissection or occlusion Inflammatory changes surrounding the distal left common carotid and carotid bulb suggest prior endarterectomy. No evidence of hemodynamically significant stenosis in the head. No aneurysm or occlusion. No evidence of vascular mass. 03/04/22: ct brain Impression: Atrophy. No acute hemorrhage. 03/21/22 : Mri brain No intracranial mass is identified. 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 Chronic small vessel ischemia. 03/22/22 CXR Mild CHF. Anti-Infective Medications Ordered Medications ceFAZolin, 2 gm = 1 Vial, IVPB, [id number], Indication= Bloodstream Infection, Routine, INJ, 03/19/22 20:00:00 PST, 4 Week(s), Stop date 04/16/22 19:59:00 PST, 200 mL/hr, 30 min Completed Medications ampicillin-sulbactam, 3 gm = 1 Vial, IVPB, [id number], Indication= Bacteremia / Fungemia, INJ, 03/11/22 18:00:00 PST, 7 Day(s), Stop date 03/18/22 23:59:00 PST, 200 mL/hr, 30 min vancomycin, 2,000 mg, IVPB, ONCE, Indication= Bloodstream Infection, IV SOLN, 03/11/22 4:00:00 PST, Stop date 03/11/22 4:00:00 PST, 250 mL/hr, 120 min Discontinued Medications ceFAZolin, 2 gm = 1 Vial, IVPB, Q8H, Indication= Bloodstream Infection, NOW, INJ, 03/19/22 9:52:00 PST, 4 Week(s), Stop date 04/16/22 9:51:00 PST, 200 mL/hr, 30 min cefTRIAXone, 1 gm, IVPB, Q24H, Indication= Sepsis, INJ, 03/10/22 12:52:00 PST vancomycin, 1,000 mg, IVPB, [id number], Indication= Bloodstream Infection, IV SOLN, 03/11/22 22:00:00 PST Impression and Plan Polymicrobial bacteremia, suspect MSSA bacteremia was present on admission and other organisms are secondary to Blankenship catheter.03/05 TTE neg. No evidence of hematogenous seeding. Ancef 2 g iv q 8 03/19/22 hours for 4 weeks 03/13-04/10/22. COPD exacerbation status post methylprednisolone. Diabetes mellitus, A1c 6.1, new diagnosis. Dyslipidemia. Atrial fibrillation. Stroke, status post tPA 03/04. Atrial fibrillation with RVR. Carotid artery disease, status post left carotid endarterectomy 02/21/2022. Seizures on Keppra MLC 03/25/22. Stable from ID. Continue Ancef. DW bedside nurse. Pending swing bed. Atrovent discontinued as pt refusing to due, prn levalbuterol available for wheezing. Son updated. Face to face time 15 minutes. Total time spent 50 minutes. Seen and agree with above. Face to Face time 15 minutes. Total time spent 50 minutes. [id number] Male 03/25/2022 [facility] Progress Note Patient: SHERRON SURESH Age: 76 years Legal Sex: Male : 1945 Author: SABRINA Johnson, Payton Ahumada Pt. had a midline placed left cephalic vein 03-19-22, % VO 33. Pt complaining of 'a lot ' of pain with flushing. Left cephalic vein assessed with ultrasound. Catheter visible within the vein. Vein no longer compressible. Catheter discontinued. New midline placed right basilic vein. % VO 31, Arm circumference 30 cm. Pt. requires abx therapy until 04-10-22. Discussed with ID doctor. [id number] Male 03/25/2022 [facility] Progress Note Patient: MAYRA SURESH Age: 76 years Legal Sex: MALE : 1945 Date of Service 03/24/22 Hospital Course 76-year-old male with hypertension, hyperlipidemia, chronic ex-smoker, newly diagnosed type II DM, ?history of TIA's, carotid endarterectomy (elective, 02/21/2022) BIBA to the ED with c/o AMS (GCS 8/15 on presentation) and admitted due to the possibility of acute stroke. Vital signs were significant for Tachycardia (144bpm) and ECG showed new onset Afib with RVR. CT brain was -ve for hemorrhagic stroke. Pt was given tPA in ED as per recs of Neurologist. CT angio was -ve for hemodynamically significant stenosis in head and neck. Pt was transferred to ICU on 03/04, MRI brain (03/06) was negative for acute stroke and downgraded on 03/07. During the course of ICU stay , pt stayed AAOX3. ECHO without bubble study was -ve for evidence of cardiac source thrombus, negative for vegetations and EF 60%. Dual antiplatelet agents were dc'd as per recs of Neuro. Cardio (Dr. hCang) was consulted who recommended Metoprolol and digoxin for Afib and outpt f/u. Pt had a ?traumatic urinary catheterization and later had a MSSA and gram -ve bacteremia. ID was consulted and pt was started on Unasyn and later switched to Ancef with Midline and goal to complete abx treatment (04/10/22). Repeat cultures are negative till date. Pt had a rapid response on 03/20/22 based on seizure like activity (eyes rolled back, non responsive, body stiffness). Lactic acid was elevated to 5.4. CT scan brain was done and negative for acute findings. Pt stayed in ICU for observation without intubation and later downgraded on 03/21/22 and care transitioned to the residency team. Pt says that he does not recall the seizures/event. Denies tongue bite, fecal incontinence and prior hx of seizures in the past. MRI brain w/wo contrast negative for lesion/stroke. Repeat cultures negative till date. Pt has urinary cath in place due to urinary retention after failed attempt to dc blankenship's, pt to f/u with urologist outpt Subjective Pt evaluated at bedside. Pt is tolerating oral diet well. No focal neurological weakness. No seizure episode. Objective Vitals and Measurements T: 98.3 F HR: 120(Apical) HR: 75 RR: 20 BP: 123/66 SpO2: 98% O2 Delivery: Nasal cannula O2 Flow: 2L/min FiO2: 25% HT: 180.34 cm WT: 89.1 kg BMI: 26.2 kg/m2 Intake and Output as of 15:09 (24 hour periods starting at 06:00) 03/24/22 03/23/22 03/22/22 Intake mL 50 200 1000 Output mL 1000 2800 3700 Fluid Balance -950 -2600 -2700 Physical Exam General: Alert and oriented to time, place and person, No acute distress. HENT: Normocephalic, Normal hearing. Neck: Supple. Respiratory: Respirations are non-labored. Cardiovascular: Normal rate, No edema Musculoskeletal: Gait not assessed due to risk of fall. Integumentary: Warm, No pallor, dry peeled off skin noticed on b/l legs. Neurologic: Alert, Oriented. Psychiatric: Cooperative, Appropriate mood and affect. Neurological: CN II-XII intact. Strength and sensation symmetric and intact throughout. Reflexes 2+ throughout. Cerebellar testing normal. Inpatient Medications Scheduled: apixaban 5 mg Tab 5 mg 1 Tab, ORAL, BID atorvastatin 40 mg Tab 80 mg 2 Tab, ORAL, QBedtime ceFAZolin 2 gm 1 Vial, IVPB, [id number] cholecalciferol (D3) 25 mcg (1,000 IU) Tab 25 mcg 1 Tab, ORAL, DAILY digoxin 0.125 mg Tab 0.125 mg 1 Tab, ORAL, DAILY furosemide 20 mg Tab 20 mg 1 Tab, ORAL, DAILY insulin lispro (Admelog) 100 units/mL, 3 mL MDV correction scale, SUBQ, Q6H ipratropium 0.5mg/2.5 mL (0.02%) Neb Amp 0.5 mg 2.5 mL, INH, TID lactulose 20 gm/30 mL Syrup 30 mL 10 gm 15 mL, ORAL, BID levETIRAcetam 500 mg Tab 500 mg 1 Tab, ORAL, BID lisinopril 10 mg Tab 10 mg 1 Tab, ORAL, DAILY metoprolol tartrate 25 mg Tab 25 mg 1 Tab, ORAL, BID pantoprazole 40 mg EC Tab 40 mg 1 Tab, ORAL, ACBkfst Pharmacy Communication No Anticoag/antithrombotic/antiplat elet, N/A, As directed Pharmacy Communication As Directed, N/A, As directed Pharmacy Consult Pharmacotherapy Review, N/A, As directed tamsulosin 0.4 mg Cap 0.4 mg 1 Cap, ORAL, QBedtime Continuous: PRN: acetaminophen 325 mg Tab 650 mg 2 ea, ORAL, Q6H Dextrose 50% Inj 50 mL Syr 25 mL, IV, As directed Dextrose 50% Inj 50 mL Syr 50 mL, IV, As directed glucagon 1 mg Inj SDV 1 mg, SUBQ, As directed Glucose 40% Oral Gel 15 gm 15 gm 37.5 mL, ORAL, As directed levalbuterol 1.25 mg/3 mL Neb Amp 3 mL 1.25 mg 3 mL, INH, Q4H LORazepam 2 mg/mL, 1 mL Inj 2 mg 1 mL, IV, ONCE metoprolol tartrate 1 mg/mL Inj 5 mL 5 mg 5 mL, IV PUSH, Q6H nalOXone 0.4 mg/mL, 1 mL Inj 0.2 mg 0.5 mL, IV PUSH, As directed traMADol 50 mg Tab 50 mg 1 Tab, ORAL, Q6H Lab Results Labs All 24H Lab Results Date Auto Neutrophil Percent 71.7 % 03/24/22 06:16 PST Auto Neutrophil Absolute 6.5 K/mm3 03/24/22 06:16 PST Auto Lymphocyte Percent 13.6 % 03/24/22 06:16 PST Auto Lymphocyte Absolute 1.2 K/mm3 03/24/22 06:16 PST Auto Monocyte Percent 13.1 % (HIGH) 03/24/22 06:16 PST Auto Monocyte Absolute 1.2 K/mm3 03/24/22 06:16 PST Auto Basophil Percent 1.1 % 03/24/22 06:16 PST Auto Basophil Absolute 0.1 K/mm3 03/24/22 06:16 PST Auto Eosinophil Percent 0.5 % 03/24/22 06:16 PST Auto Eosinophil Absolute 0.0 K/mm3 03/24/22 06:16 PST WBC 9.10 K/mm3 03/24/22 06:16 PST RBC 2.99 M/mm3 (LOW) 03/24/22 06:16 PST HGB 9.0 gm/dL (LOW) 03/24/22 06:16 PST HCT 26.8 % (LOW) 03/24/22 06:16 PST MCV 89.6 fL 03/24/22 06:16 PST MCH 30.0 pg 03/24/22 06:16 PST MCHC 33.5 gm/dL 03/24/22 06:16 PST RDW 14.5 % 03/24/22 06:16 PST PLT 399 K/mm3 03/24/22 06:16 PST MPV 9.1 fL 03/24/22 06:16 PST Sodium Level 137 mmol/L 03/24/22 06:16 PST Potassium Level 4.3 mmol/L 03/24/22 06:16 PST Chloride Level 102 mmol/L 03/24/22 06:16 PST CO2/Carbon Dioxide 30 mmol/L 03/24/22 06:16 PST Anion Gap 5 mmol/L 03/24/22 06:16 PST Glucose, Random 100 mg/dL 03/24/22 06:16 PST POCT - Glucose (Capillary) 143 mg/dL (HIGH) 03/24/22 11:48 PST BUN 13 mg/dL 03/24/22 06:16 PST Creatinine 0.9 mg/dL 03/24/22 06:16 PST BUN/Creat Ratio 14 (LOW) 03/24/22 06:16 PST Osmolality, Calculated 274 mOsm/L (LOW) 03/24/22 06:16 PST Calcium Level 8.4 mg/dL (LOW) 03/24/22 06:16 PST Magnesium Level 1.7 mg/dL (LOW) 03/24/22 06:16 PST Phosphorus Level 3.0 mg/dL 03/24/22 06:16 PST Total Protein 5.7 gm/dL (LOW) 03/24/22 06:16 PST Albumin Level 2.4 gm/dL (LOW) 03/24/22 06:16 PST Globulin Level 3.3 gm/dL 03/24/22 06:16 PST A/G Ratio 0.7 (LOW) 03/24/22 06:16 PST Bilirubin, Total 0.8 mg/dL 03/24/22 06:16 PST Bilirubin, Direct 0.1 mg/dL 03/24/22 06:16 PST Bilirubin, Indirect (Calc) 0.7 mg/dL 03/24/22 06:16 PST AST 11 IntUnit/L (LOW) 03/24/22 06:16 PST ALT 5 IntUnit/L (LOW) 03/24/22 06:16 PST ALP 72 IntUnit/L 03/24/22 06:16 PST eGFR 89 mL/min/1.73m2 03/24/22 06:16 PST Images No new imaging Assessment/Plan _ 1. Altered mental status (Altered mental status, [id number]) 2. Atrial fibrillation with rapid ventricular response (Unspecified atrial fibrillation, I48.91) 3. MSSA bacteremia (Bacteremia, R78.81) 4. Gram-negative bacteremia (Bacteremia, R78.81) 5. Urinary catheter present (Presence of urogenital implants, Z96.0) 6. Diabetes mellitus (Type 2 diabetes mellitus without complications, E11.9) 7. HLD (hyperlipidemia) (Hyperlipidemia, unspecified, E78.5) 8. HTN (hypertension) (Essential (primary) hypertension, I10) 9. Hx of transient ischemic attack (TIA) (Personal history of transient ischemic attack (TIA), and cerebral infarction without residual deficits, Z86.73) Orders: furosemide (Lasix), 20 mg, ORAL, ONCE, TAB, 03/22/22 17:00:00 PST, Stop date 03/22/22 17:00:00 PST ipratropium (ipratropium), 0.5 mg, INH, TID, NEB AMP, 03/23/22 14:00:00 PST lactulose (lactulose), 10 gm, ORAL, BID, SYRUP, 03/24/22 9:35:00 PST, Stop date 03/24/22 21:00:00 PST levETIRAcetam (Keppra), 500 mg, ORAL, BID, TAB, 03/23/22 9:56:00 PST levETIRAcetam (levETIRAcetam), 1,000 mg = 100 mL, IVPB, [id number], IV SOLN, 03/22/22 13:00:00 PST, 2 Time(s)/Dose(s), Stop date 03/22/22 13:29:00 PST, 400 mL/hr, 15 min magnesium sulfate (magnesium sulfate), 2 gm = 50 mL, IVPB, ONCE, IV SOLN, 03/24/22 9:35:00 PST, Stop date 03/24/22 9:35:00 PST, 25 mL/hr, 2 hr Chest 1 Vw EEG Full Code Lactic Acid/Lactate MRI Brain W WO Contrast Physical Therapy Eval and Treat per protocol Serum Indices Treponema Ab Screen US Renal Virtual Care Neuro Consult #Concern for CVA (Ruled out) - s/p tPA - MRI was negative, CTA with no LVO - TTE with no thrombus reported( PFO not done) - cont statin, not on antiplatelet agents, discussed with neurology Dr Cagle, the main concern was for cardioembolic process and Eliquis is enough, no need to add antiplatelets #Afib with RVR - Monitor Vital signs q4h, O2 prn - continue digoxin and metoprolol - cont Eliquis #MSSA bacteremia, #Enterococcus and Citrobacter bacteremia - ID recs: Unasyn thru 03/18. Ancef 2 g iv q 8 03/19/22 hours for 4 weeks 03/13-04/10/22. 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 but did have some MV thickening - blood cultures negative till date #Seizure like activity - MRI brain w/wo contrast: -ve for brain lesion/stroke - Seizure precautions - Ativan prn for seizures - TeleNeuro consulted: recs EEG (possibly on 03/25) , s/p loading dose keppra 2gm, continue Keppra 500 mg bid - Treponema screen -ve #Urinary retention Hematuria - resolved #BPH - continue Blankenship catheter needs outpatient urology evaluation - per RN report patient was trialed off Blankenship and was retaining, it had to be placed back - no more hematuria, hgb stable - cont Flomax - US Renal shows normal b/l echogenicity and no hydronephrosis #HTN - On lispro #HLD - Atorvastatin 80 mg qdaily #DM type II - Insulin lispro correction scale #DVT prophylaxis Continue Eliquis #Status code: Full code Disposition: swing bed for abx course completion (swing bed to review patient again on Saturday 03/25) and clearance from neuro after EEG on 03/25 - Continue PT at acute rehab Pt was seen and case discussed with the attending physician Dr. Mariah MD who agreed to the above assessment plan. Discussed with Jorge L Mason MD PGY1 and the night resident Jass Bo MD PGY2 Chacorta Li MD PGY2 I participated in the following activities of this patients care: the medical history, the physical exam, medical decision making. I personally performed: supervision of the patient's care, the medical history, the physical exam and medical decision making. The case was discussed with: resident physician Evaluation and management service: I agree with the evaluation and management decisions made in this patient's care. Results interpretation: I agree with the study interpretation in this patient's care. [id number] Male 03/24/2022 [facility] Neurology Progress Note Patient: SHERRON SURESH Age: 76 years Legal Sex: MALE : 1945 _ Brief TeleNeurology Note 03/24/22: The patient was not seen on TeleNeurology rounds. EEG remains pending. In-house Neurology to follow-up Friday if the patient is still admitted. Feng [facility] [id number] Male 03/24/2022 [facility] Progress Note Patient: MAYRA SURESH Age: 76 years Legal Sex: MALE : 1945 Date of Service 03/23/22 Hospital Course 76-year-old male with hypertension, hyperlipidemia, chronic ex-smoker, newly diagnosed type II DM, ?history of TIA's, carotid endarterectomy (elective, 02/21/2022) BIBA to the ED with c/o AMS (GCS 8/15 on presentation) and admitted due to the possibility of acute stroke. Vital signs were significant for Tachycardia (144bpm) and ECG showed new onset Afib with RVR. CT brain was -ve for hemorrhagic stroke. Pt was given tPA in ED as per recs of Neurologist. CT angio was -ve for hemodynamically significant stenosis in head and neck. Pt was transferred to ICU on 03/04, MRI brain (03/06) was negative for acute stroke and downgraded on 03/07. During the course of ICU stay , pt stayed AAOX3. ECHO without bubble study was -ve for evidence of cardiac source thrombus, negative for vegetations and EF 60%. Dual antiplatelet agents were dc'd as per recs of Neuro. Cardio (Dr. Chang) was consulted who recommended Metoprolol and digoxin for Afib and outpt f/u. Pt had a ?traumatic urinary catheterization and later had a MSSA and gram -ve bacteremia. ID was consulted and pt was started on Unasyn and later switched to Ancef with Midline and goal to complete abx treatment (04/10/22). Repeat cultures are negative till date. Pt had a rapid response on 03/20/22 based on seizure like activity (eyes rolled back, non responsive, body stiffness). Lactic acid was elevated to 5.4. CT scan brain was done and negative for acute findings. Pt stayed in ICU for observation without intubation and later downgraded on 03/21/22 and care transitioned to the residency team. Pt says that he does not recall the seizures/event. Denies tongue bite, fecal incontinence and prior hx of seizures in the past. MRI brain w/wo contrast negative for lesion/stroke. Repeat cultures negative till date. Pt has urinary cath in place due to urinary retention after failed attempt to dc blankenship's, pt to f/u with urologist outpt Subjective Pt evaluated at bedside. Pt is tolerating oral diet well. No focal neurological weakness. No seizure episode Objective Vitals and Measurements T: 98.3 F HR: 84(Apical) HR: 89 RR: 17 BP: 132/74 SpO2: 96% O2 Delivery: Nasal cannula O2 Flow: 2L/min HT: 180.34 cm WT: 89.1 kg BMI: 26.2 kg/m2 Intake and Output as of 17:04 (24 hour periods starting at 06:00) 03/23/22 03/22/22 03/21/22 Intake mL 0 1000 200 Output mL 0 3700 3650 Fluid Balance 0 -2700 -3450 Physical Exam General: Alert and oriented to time, place and person, No acute distress. HENT: Normocephalic, Normal hearing. Neck: Supple. Respiratory: Respirations are non-labored. Cardiovascular: Normal rate, No edema Musculoskeletal: Gait not assessed due to risk of fall. Integumentary: Warm, No pallor, dry peeled off skin noticed on b/l legs. Neurologic: Alert, Oriented. Psychiatric: Cooperative, Appropriate mood and affect. Neurological: CN II-XII intact. Strength and sensation symmetric and intact throughout. Reflexes 2+ throughout. Cerebellar testing normal. Inpatient Medications Scheduled: apixaban 5 mg Tab 5 mg 1 Tab, ORAL, BID atorvastatin 40 mg Tab 80 mg 2 Tab, ORAL, QBedtime ceFAZolin 2 gm 1 Vial, IVPB, [id number] cholecalciferol (D3) 25 mcg (1,000 IU) Tab 25 mcg 1 Tab, ORAL, DAILY digoxin 0.125 mg Tab 0.125 mg 1 Tab, ORAL, DAILY furosemide 20 mg Tab 20 mg 1 Tab, ORAL, DAILY insulin lispro (Admelog) 100 units/mL, 3 mL MDV correction scale, SUBQ, Q6H ipratropium 0.5mg/2.5 mL (0.02%) Neb Amp 0.5 mg 2.5 mL, INH, TID levETIRAcetam 500 mg Tab 500 mg 1 Tab, ORAL, BID lisinopril 10 mg Tab 10 mg 1 Tab, ORAL, DAILY metoprolol tartrate 25 mg Tab 25 mg 1 Tab, ORAL, BID pantoprazole 40 mg EC Tab 40 mg 1 Tab, ORAL, ACBkfst Pharmacy Communication No Anticoag/antithrombotic/antiplat elet, N/A, As directed Pharmacy Communication As Directed, N/A, As directed Pharmacy Consult Pharmacotherapy Review, N/A, As directed tamsulosin 0.4 mg Cap 0.4 mg 1 Cap, ORAL, QBedtime Continuous: PRN: acetaminophen 325 mg Tab 650 mg 2 ea, ORAL, Q6H Dextrose 50% Inj 50 mL Syr 25 mL, IV, As directed Dextrose 50% Inj 50 mL Syr 50 mL, IV, As directed glucagon 1 mg Inj SDV 1 mg, SUBQ, As directed Glucose 40% Oral Gel 15 gm 15 gm 37.5 mL, ORAL, As directed levalbuterol 1.25 mg/3 mL Neb Amp 3 mL 1.25 mg 3 mL, INH, Q4H LORazepam 2 mg/mL, 1 mL Inj 2 mg 1 mL, IV, ONCE metoprolol tartrate 1 mg/mL Inj 5 mL 5 mg 5 mL, IV PUSH, Q6H nalOXone 0.4 mg/mL, 1 mL Inj 0.2 mg 0.5 mL, IV PUSH, As directed traMADol 50 mg Tab 50 mg 1 Tab, ORAL, Q6H Lab Results Labs All 24H Lab Results Date Auto Neutrophil Percent 75.7 % 03/23/22 07:04 PST Auto Neutrophil Absolute 6.6 K/mm3 03/23/22 07:04 PST Auto Lymphocyte Percent 10.8 % 03/23/22 07:04 PST Auto Lymphocyte Absolute 0.9 K/mm3 03/23/22 07:04 PST Auto Monocyte Percent 12.5 % (HIGH) 03/23/22 07:04 PST Auto Monocyte Absolute 1.1 K/mm3 03/23/22 07:04 PST Auto Basophil Percent 0.7 % 03/23/22 07:04 PST Auto Basophil Absolute 0.1 K/mm3 03/23/22 07:04 PST Auto Eosinophil Percent 0.3 % 03/23/22 07:04 PST Auto Eosinophil Absolute 0.0 K/mm3 03/23/22 07:04 PST WBC 8.80 K/mm3 03/23/22 07:04 PST RBC 3.06 M/mm3 (LOW) 03/23/22 07:04 PST HGB 9.1 gm/dL (LOW) 03/23/22 07:04 PST HCT 27.9 % (LOW) 03/23/22 07:04 PST MCV 91.4 fL 03/23/22 07:04 PST MCH 29.7 pg 03/23/22 07:04 PST MCHC 32.5 gm/dL 03/23/22 07:04 PST RDW 14.6 % (HIGH) 03/23/22 07:04 PST PLT 443 K/mm3 (HIGH) 03/23/22 07:04 PST MPV 8.4 fL 03/23/22 07:04 PST Sodium Level 137 mmol/L 03/23/22 07:04 PST Potassium Level 4.3 mmol/L 03/23/22 07:04 PST Chloride Level 100 mmol/L (LOW) 03/23/22 07:04 PST CO2/Carbon Dioxide 32 mmol/L 03/23/22 07:04 PST Anion Gap 5 mmol/L 03/23/22 07:04 PST Glucose, Random 112 mg/dL (HIGH) 03/23/22 07:04 PST POCT - Glucose (Capillary) 158 mg/dL (HIGH) 03/23/22 11:47 PST BUN 9 mg/dL 03/23/22 07:04 PST Creatinine 0.9 mg/dL 03/23/22 07:04 PST BUN/Creat Ratio 10 (LOW) 03/23/22 07:04 PST Osmolality, Calculated 273 mOsm/L (LOW) 03/23/22 07:04 PST Calcium Level 8.5 mg/dL (LOW) 03/23/22 07:04 PST Magnesium Level 2.0 mg/dL 03/23/22 07:04 PST Phosphorus Level 3.1 mg/dL 03/23/22 07:04 PST Total Protein 6.0 gm/dL (LOW) 03/23/22 07:04 PST Albumin Level 2.6 gm/dL (LOW) 03/23/22 07:04 PST Globulin Level 3.4 gm/dL 03/23/22 07:04 PST A/G Ratio 0.8 (LOW) 03/23/22 07:04 PST Bilirubin, Total 0.8 mg/dL 03/23/22 07:04 PST Bilirubin, Direct 0.1 mg/dL 03/23/22 07:04 PST Bilirubin, Indirect (Calc) 0.7 mg/dL 03/23/22 07:04 PST AST 12 IntUnit/L (LOW) 03/23/22 07:04 PST ALT 8 IntUnit/L (LOW) 03/23/22 07:04 PST ALP 81 IntUnit/L 03/23/22 07:04 PST eGFR 89 mL/min/1.73m2 03/23/22 07:04 PST Images No new imaging Assessment/Plan _ 1. Altered mental status (Altered mental status, [id number]) 2. Atrial fibrillation with rapid ventricular response (Unspecified atrial fibrillation, I48.91) 3. MSSA bacteremia (Bacteremia, R78.81) 4. Gram-negative bacteremia (Bacteremia, R78.81) 5. Urinary catheter present (Presence of urogenital implants, Z96.0) 6. Diabetes mellitus (Type 2 diabetes mellitus without complications, E11.9) 7. HLD (hyperlipidemia) (Hyperlipidemia, unspecified, E78.5) 8. HTN (hypertension) (Essential (primary) hypertension, I10) 9. Hx of transient ischemic attack (TIA) (Personal history of transient ischemic attack (TIA), and cerebral infarction without residual deficits, Z86.73) Orders: furosemide (Lasix), 20 mg, ORAL, ONCE, TAB, 03/22/22 17:00:00 PST, Stop date 03/22/22 17:00:00 PST ipratropium (ipratropium), 0.5 mg, INH, TID, NEB AMP, 03/23/22 14:00:00 PST levETIRAcetam (Keppra), 500 mg, ORAL, BID, TAB, 03/23/22 9:56:00 PST levETIRAcetam (levETIRAcetam), 1,000 mg = 100 mL, IVPB, [id number], IV SOLN, 03/22/22 13:00:00 PST, 2 Time(s)/Dose(s), Stop date 03/22/22 13:29:00 PST, 400 mL/hr, 15 min LORazepam (Ativan), 2 mg, IV, ONCE, PRN, Seizures, STAT, INJ, 03/21/22 13:28:00 PST Chest 1 Vw Communication EEG Full Code Lactic Acid/Lactate MRI Brain W WO Contrast Physical Therapy Eval and Treat per protocol Physician Consult Precautions Serum Indices Treponema Ab Screen US Renal Virtual Care Neuro Consult #concern for CVA (Ruled out) - s/p tPA - MRI was negative, CTA with no LVO - TTE with no thrombus reported( PFO not done) - cont statin, not on antiplatelet agents, discussed with neurology Dr Cagle, the main concern was for cardioembolic process and Eliquis is enough, no need to add antiplatelets - PT #Afib with RVR - Monitor Vital signs q4h, O2 prn - continue digoxin and metoprolol - cont Eliquis #MSSA bacteremia, #Enterococcus and Citrobacter bacteremia - ID recs: Unasyn thru 03/18. Ancef 2 g iv q 8 03/19/22 hours for 4 weeks 03/13-04/10/22. 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 but did have some MV thickening - blood cultures negative till date #Seizure like activity - MRI brain w/wo contrast: -ve for brain lesion/stroke - Seizure precautions - Ativan prn for seizures - TeleNeuro consulted: recs EEG (possibly on 03/25) , s/p loading dose keppra 2gm, continue Keppra 500 mg bid - Treponema screen -ve #Urinary retention Hematuria - resolved #BPH - continue Blankenship catheter needs outpatient urology evaluation - per RN report patient was trialed off Blankenship and was retaining, it had to be placed back - no more hematuria, hgb stable - cont Flomax - US Renal shows normal b/l echogenicity and no hydronephrosis #HTN - On lispro #HLD - Atorvastatin 80 mg qdaily #DM type II - Insulin lispro correction scale #DVT prophylaxis Continue eliquis #Status code: Full code Disposition: swing bed for abx course completion (swing bed to review patient again on Saturday 03/25), clearance from neuro. PT OT Pt was seen and case discussed with the attending physician Dr. Mariah MD who agreed to the above assessment plan. Discussed with Jorge L Mason MD PGY1 and the night resident and Diaz Ferraro MD PGY 3. Chacorta Li MD PGY2 I participated in the following activities of this patients care: the medical history, the physical exam, medical decision making. I personally performed: supervision of the patient's care, the medical history, the physical exam and medical decision making. The case was discussed with: resident physician Evaluation and management service: I agree with the evaluation and management decisions made in this patient's care. Results interpretation: I agree with the study interpretation in this patient's care. [id number] Male 03/24/2022 [facility] Neurology Progress Note Patient: SHERRON SURESH Age: 76 years Legal Sex: MALE : 1945 History of Present Illness 76 year-old man with a past medical history of TIA, left carotid endarterectomy, hypertension, hyperlipidemia, and obesity who initially presented 03/04 with an acute transient episode of confusion, unresponsiveness, and 'posturing' per EMS. A rapid response was called 03/20 for an episode of eyes rolled back, non responsive, body stiffness, and lactic acidosis. The patient was amnestic to the episode. No complaints. The patient is sleeping comfortably. Review of Systems 10-point review of systems complete, all others negative other than those mentioned in HPI Physical Exam Vitals and Measurements T: 98.3 F HR: 84(Apical) HR: 89 RR: 17 BP: 118/66 SpO2: 96% O2 Delivery: Nasal cannula O2 Flow: 2L/min HT: 180.34 cm WT: 89.1 kg BMI: 26.2 kg/m2 The exam was conducted with the assistance of bedside nursing staff. General: No acute distress. HEENT: Atraumatic, normocephalic. CV/Pulm: Breathing comfortably. Abdomen: Non-distended. Extremities: No cyanosis. Skin: No rash. Mental status: Sleeping but easily awakens, oriented to name, , hospital, and month. Language is fluent with intact comprehension. Cranial nerves: Face symmetric. Motor: Moving extremities spontaneously. Assessment/Plan _ 1. Altered mental status (Altered mental status, [id number]) 2. Atrial fibrillation with rapid ventricular response (Unspecified atrial fibrillation, I48.91) 3. MSSA bacteremia (Bacteremia, R78.81) 4. Gram-negative bacteremia (Bacteremia, R78.81) 5. Urinary catheter present (Presence of urogenital implants, Z96.0) 6. Diabetes mellitus (Type 2 diabetes mellitus without complications, E11.9) 7. HLD (hyperlipidemia) (Hyperlipidemia, unspecified, E78.5) 8. HTN (hypertension) (Essential (primary) hypertension, I10) 9. Hx of transient ischemic attack (TIA) (Personal history of transient ischemic attack (TIA), and cerebral infarction without residual deficits, Z86.73) 76 year-old man with a past medical history of TIA, left carotid endarterectomy, hypertension, hyperlipidemia, and obesity who initially presented 03/04 with an acute transient episode of confusion, unresponsiveness, and 'posturing.' The patient had an episode / of eyes rolled back, non responsive, body stiffness, and lactic acidosis. The patient was amnestic to both events. The patient is sleeping but easily awakens with now intact orientation. He follows commands and responds to questions. 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 Suspect these episodes are a manifestation of seizure as opposed to TIA. The fact that the episodes are similar, self-limited, recurrent, and associated with amnesia is suggestive. Disorientation has resolved. Per nursing, he will have some disorientation on first waking up. Recommendations Workup - EEG. Unable to be performed until Friday, 03/25. This can be obtained as an outpatient if no further episodes. Management - Levetiracetam 500 mg q12h - Seizure and delirium precautions - Lorazepam 2 mg IV PRN seizure > 3 minutes or multiple w/o return to baseline - [facility] Morbidity Report Form - Apixaban 5 mg q12h - Atorvastatin 80 mg daily We will continue to follow. To be followed up by in-house Neurology after EEG, if still admitted, on Friday. Case discussed with bedside nursing and recommendations given. Prior consent for telehealth services obtained from patient. This service is delivered via an interactive video telecommunication system. Total time spent providing care: 20 minutes Feng Gaffney MD [facility] Past Medical History Active Problems Body mass index 30+ - obesity Elevated serum cholesterol High blood pressure TIA (transient ischemic attack) Family History Family history is unknown Social History *Alcohol Screen How often do you have a drink containing alcohol? Never (0). How many standard drinks containing alcohol do you have on a typical day? Never (0). How often do you have six or more drinks on one occasion? Never (0). Ready to change: N/A. Previous treatment: None. *Substance Abuse Screen Substance abuse in household: No. Household substance abuse concerns: No. *Tobacco Use Screen Is there a smoker in the household? Yes. Do you have concerns about tobacco use in household? No. Over the past 30 days, what and how much have you smoked? 5-9 cigarettes (between 1/4 to 1/2 pack)/day in last 30 days. Over the past 30 days, what has been your smokeless tobacco use? Never. Are you ready to quit? No. Started at age: 12 Years. Number of years: 64. Receiving counseling during visit/stay: Yes. Home Medications Last Documented: 03/20/2022 aspirin 325 mg oral enteric coated tablet, 1 Tab, ORAL, DAILY, Not taking atenolol 50 mg oral tablet, 1 Tab, ORAL, DAILY, Not taking atenolol 50 mg oral tablet, 50 mg, 1 Tab, ORAL, DAILY, Not taking atorvastatin 80 mg oral tablet, 80 mg, 1 Tab, ORAL, DAILY cholecalciferol 1000 intl units oral tablet, 25 mcg, 1 Tab, ORAL, DAILY clopidogrel 75 mg oral tablet, 75 mg, 1 Tab, ORAL, DAILY digoxin 125 mcg (0.125 mg) oral tablet, 0.125 mg, 1 Tab, ORAL, DAILY docusate-senna 50 mg-8.6 mg oral capsule Eliquis 5 mg oral tablet, 5 mg, 1 Tab, ORAL, BID Fish Oil 1000 mg oral capsule, 1 Cap, ORAL, DAILY furosemide 20 mg oral tablet, 20 mg, 1 Tab, ORAL, DAILY lisinopril 10 mg oral tablet, 10 mg, 1 Tab, ORAL, DAILY metFORMIN, 500 mg, ORAL, DAILY metoprolol tartrate 25 mg oral tablet, 25 mg, 1 Tab, ORAL, BID tamsulosin 0.4 mg oral capsule, 0.4 mg, 1 Cap, ORAL, QBedtime traMADol, 50 mg, ORAL, Q6H, PRN Eliquis 5 mg oral tablet, Fish Oil 1000 mg oral capsule, aspirin 325 mg oral enteric coated tablet, atenolol 50 mg oral tablet, atenolol 50 mg oral tablet, atorvastatin 80 mg oral tablet, cholecalciferol 1000 intl units oral tablet, clopidogrel 75 mg oral tablet, digoxin 125 mcg (0.125 mg) oral tablet, docusate-senna 50 mg-8.6 mg oral capsule, furosemide 20 mg oral tablet, lisinopril 10 mg oral tablet, metFORMIN, metoprolol tartrate 25 mg oral tablet, tamsulosin 0.4 mg oral capsule, traMADol, Lab Results Labs All 24H Lab Results Date Auto Neutrophil Percent 75.7 % 03/23/22 07:04 PST Auto Neutrophil Absolute 6.6 K/mm3 03/23/22 07:04 PST Auto Lymphocyte Percent 10.8 % 03/23/22 07:04 PST Auto Lymphocyte Absolute 0.9 K/mm3 03/23/22 07:04 PST Auto Monocyte Percent 12.5 % (HIGH) 03/23/22 07:04 PST Auto Monocyte Absolute 1.1 K/mm3 03/23/22 07:04 PST Auto Basophil Percent 0.7 % 03/23/22 07:04 PST Auto Basophil Absolute 0.1 K/mm3 03/23/22 07:04 PST Auto Eosinophil Percent 0.3 % 03/23/22 07:04 PST Auto Eosinophil Absolute 0.0 K/mm3 03/23/22 07:04 PST WBC 8.80 K/mm3 03/23/22 07:04 PST RBC 3.06 M/mm3 (LOW) 03/23/22 07:04 PST HGB 9.1 gm/dL (LOW) 03/23/22 07:04 PST HCT 27.9 % (LOW) 03/23/22 07:04 PST MCV 91.4 fL 03/23/22 07:04 PST MCH 29.7 pg 03/23/22 07:04 PST MCHC 32.5 gm/dL 03/23/22 07:04 PST RDW 14.6 % (HIGH) 03/23/22 07:04 PST PLT 443 K/mm3 (HIGH) 03/23/22 07:04 PST MPV 8.4 fL 03/23/22 07:04 PST Sodium Level 137 mmol/L 03/23/22 07:04 PST Potassium Level 4.3 mmol/L 03/23/22 07:04 PST Chloride Level 100 mmol/L (LOW) 03/23/22 07:04 PST CO2/Carbon Dioxide 32 mmol/L 03/23/22 07:04 PST Anion Gap 5 mmol/L 03/23/22 07:04 PST Glucose, Random 112 mg/dL (HIGH) 03/23/22 07:04 PST POCT - Glucose (Capillary) 141 mg/dL (HIGH) 03/23/22 06:11 PST BUN 9 mg/dL 03/23/22 07:04 PST Creatinine 0.9 mg/dL 03/23/22 07:04 PST BUN/Creat Ratio 10 (LOW) 03/23/22 07:04 PST Osmolality, Calculated 273 mOsm/L (LOW) 03/23/22 07:04 PST Calcium Level 8.5 mg/dL (LOW) 03/23/22 07:04 PST Magnesium Level 2.0 mg/dL 03/23/22 07:04 PST Phosphorus Level 3.1 mg/dL 03/23/22 07:04 PST Total Protein 6.0 gm/dL (LOW) 03/23/22 07:04 PST Albumin Level 2.6 gm/dL (LOW) 03/23/22 07:04 PST Globulin Level 3.4 gm/dL 03/23/22 07:04 PST A/G Ratio 0.8 (LOW) 03/23/22 07:04 PST Bilirubin, Total 0.8 mg/dL 03/23/22 07:04 PST Bilirubin, Direct 0.1 mg/dL 03/23/22 07:04 PST Bilirubin, Indirect (Calc) 0.7 mg/dL 03/23/22 07:04 PST AST 12 IntUnit/L (LOW) 03/23/22 07:04 PST ALT 8 IntUnit/L (LOW) 03/23/22 07:04 PST ALP 81 IntUnit/L 03/23/22 07:04 PST eGFR 89 mL/min/1.73m2 03/23/22 07:04 PST Diagnostic Results General Diagnostic Result Type: Chest 1 Vw Result Date: March 22, 2022 10:33 PST Reason For Exam: Abnormal Chest Sounds (Wheezing, Rales, Stridor) REPORT: EXAMINATION: Chest 1 VwCLINICAL HISTORY: Shortness of breath.COMPARISONS: Chest radiograph dated 03/21/2022TECHNIQUE:A single portable AP view of the chest was obtained. FINDINGS: The cardiomediastinal silhouette is mildly enlarged. There is mild pulmonary vascular congestion and perihilar interstitial and airspace opacity. Small bilateral effusions are present. No pneumothorax is seen. The osseous structures are grossly intact. IMPRESSION: Mild CHF. Signed by: Sandeep Montiel on 03/22/2022 10:39 AM Result Type: Chest 1 Vw Portable Result Date: March 21, 2022 06:04 PST Reason For Exam: Congestion REPORT: EXAM: Chest 1 Vw PortableCLINICAL INDICATION: Chest pain COMPARISON: Radiograph from the prior day TECHNIQUE: Single portable frontal view of the chest. FINDINGS: Normal cardiomediastinal silhouette. Infiltrates or pulmonary edema is seen No acute abnormality of the bony thorax. IMPRESSION: 1. No change Signed by: Chapo Lowery on 03/21/2022 6:23 AM Computerized Tomography Result Type: CT Brain WO Contrast Result Date: March 20, 2022 18:59 PST Reason For Exam: CVA REPORT: Clinical Historyaltered mental status cvaComparison:CT HEAD on 03/05/2022, 230 images.Technique: All CT scans at this medical facility are performed using dose modulation techniques as appropriate to a performed exam including the following: Automated exposure control was utilized; adjustment of the mA and/or kV according to patient size; and use of iterative reconstruction technique.All CT studies are reported to the Dose Index Registry of the [employer]. Without ContrastRadiation Dose: CTDI (mGy): 52.11; DLP (mGy-cm): 1032.36GLSHERRON CURTIS, [id number] FINDINGS: Cerebral ventricles are symmetric in morphology. There is no extra-axial collection, midline shift or intracranial hemorrhage . Basal cisterns are not effaced.Visual segments of the orbits are unremarkable. Paranasal sinuses and mastoids are well pneumatized. There is no depressed skull fracture. IMPRESSION: Negative for an acute intracranial process by noncontrast CT. Should symptoms persist MRI follow-up is recommended for more sensitive evaluation.This report was electronically signed by Ari Willard MD on 03/20/2022 7:14:35 PM.The above findings were reported to Nurse Gary Park The call was initiated at 03/20/2022 7:15:08 PM. Ultrasound Result Type: US Renal Result Date: March 21, 2022 15:56 PST Reason For Exam: Urinary retention REPORT: EXAMINATION: US RenalCLINICAL HISTORY: Urinary retention.COMPARISONS: No priors available for comparison.TECHNIQUE:Real-time sonography and color-flow imaging of the kidneys was performed and multiple images were obtained. FINDINGS: The right kidney measures 11.2 cm. The left kidney measures 9.7 cm.Both kidneys demonstrate normal echogenicity and contour without hydronephrosis. There are punctate echogenic reflector scattered throughout both kidneys not felt to represent true calculi. Urinary bladder was not imaged. IMPRESSION: No hydronephrosis. Punctate echogenic reflectors throughout both kidneys are not felt to represent true calculi. Correlation with clinical findings and urinalysis is recommended. Signed by: Sandeep Montiel on 03/21/2022 4:09 PM Magnetic Resonance Imaging Result Type: MRI Brain W WO Contrast Result Date: March 21, 2022 19:03 PST Reason For Exam: Seizures/Convulsions REPORT: Clinical Historyconvulsions AMS, r/o brain lesionComparison:CT HEAD on 03/20/2022, 241 images.Technique: Multiplanar multisequence MR imaging of the brain before and after the administration of IV contrastContrast: Dotarem 18.0 SHERRON Baker, [id number] Findings: The ventricles and sulci are normal in size and configuration. There is no acute infarct or intracerebral hemorrhage. No extra-axial blood or fluid collection is present. 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 Increased T2/FLAIR periventricular signal compatible chronic small vessel ischemia. The brainstem, posterior fossa and cervicomedullary junction are preserved. The orbits, periorbital and pericavernous spaces are normal. The pituitary is unremarkable. No abnormality of the skull base or calvarium is identified. Impression: No intracranial mass is identified. 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 No qualifying data [id number] Male 03/23/2022 [facility] Progress Note Patient: MAYRA SURESH Age: 76 years Legal Sex: MALE : 1945 Date of Service 03/22/22 Hospital Course 76-year-old male with hypertension, hyperlipidemia, chronic ex-smoker, newly diagnosed type II DM, ?history of TIA's, carotid endarterectomy (elective, 02/21/2022) BIBA to the ED with c/o AMS (GCS 8/15 on presentation) and admitted due to the possibility of acute stroke. Vital signs were significant for Tachycardia (144bpm) and ECG showed new onset Afib with RVR. CT brain was -ve for hemorrhagic stroke. Pt was given tPA in ED as per recs of Neurologist. CT angio was -ve for hemodynamically significant stenosis in head and neck. Pt was transferred to ICU on 03/04, MRI brain (03/06) was negative for acute stroke and downgraded on 03/07. During the course of ICU stay , pt stayed AAOX3. ECHO without bubble study was -ve for evidence of cardiac source thrombus, negative for vegetations and EF 60%. Dual antiplatelet agents were dc'd as per recs of Neuro. Cardio (Dr. Chang) was consulted who recommended Metoprolol and digoxin for Afib and outpt f/u. Pt had a ?traumatic urinary catheterization and later had a MSSA and gram -ve bacteremia. ID was consulted and pt was started on Unasyn and later switched to Ancef with Midline and goal to complete abx treatment (04/10/22). Repeat cultures are negative till date. Pt had a rapid response on 03/20/22 based on seizure like activity (eyes rolled back, non responsive, body stiffness). Lactic acid was elevated to 5.4. CT scan brain was done and negative for acute findings. Pt stayed in ICU for observation without intubation and later downgraded on 03/21/22 and care transitioned to the residency team. Pt says that he does not recall the seizures/event. Denies tongue bite, fecal incontinence and prior hx of seizures in the past. MRI brain w/wo contrast negative for lesion/stroke. Repeat cultures negative till date. Pt has urinary cath in place due to urinary retention after failed attempt to dc blankenship's, pt to f/u with urologist outpt. Subjective Pt evaluated at bedside. Denies any new complaints or concerns. Pt is tolerating oral diet well. No focal neurological weakness. No seizure episode. Objective Vitals and Measurements T: 97.6 F HR: 103(Apical) HR: 100 RR: 20 BP: 117/69 SpO2: 97% O2 Delivery: Nasal cannula O2 Flow: 2L/min HT: 180.34 cm WT: 89.1 kg BMI: 26.2 kg/m2 Intake and Output as of 14:51 (24 hour periods starting at 06:00) 03/22/22 03/21/22 03/20/22 Intake mL 560 200 703 Output mL 950 3650 5600 Fluid Balance -390 -1900 -7389 Physical Exam General: Alert and oriented to time, place and person, No acute distress. HENT: Normocephalic, Normal hearing. Neck: Supple. Respiratory: Respirations are non-labored. Cardiovascular: Normal rate, No edema Musculoskeletal: Gait not assessed due to risk of fall. Integumentary: Warm, No pallor, dry peeled off skin noticed on b/l legs. Neurologic: Alert, Oriented. Psychiatric: Cooperative, Appropriate mood and affect. Neurological: CN II-XII intact. Strength and sensation symmetric and intact throughout. Reflexes 2+ throughout. Cerebellar testing normal. Inpatient Medications Scheduled: apixaban 5 mg Tab 5 mg 1 Tab, ORAL, BID atorvastatin 40 mg Tab 80 mg 2 Tab, ORAL, QBedtime ceFAZolin 2 gm 1 Vial, IVPB, [id number] cholecalciferol (D3) 25 mcg (1,000 IU) Tab 25 mcg 1 Tab, ORAL, DAILY digoxin 0.125 mg Tab 0.125 mg 1 Tab, ORAL, DAILY furosemide 20 mg Tab 20 mg 1 Tab, ORAL, DAILY insulin lispro (Admelog) 100 units/mL, 3 mL MDV correction scale, SUBQ, Q6H lisinopril 10 mg Tab 10 mg 1 Tab, ORAL, DAILY metoprolol tartrate 25 mg Tab 25 mg 1 Tab, ORAL, BID pantoprazole 40 mg EC Tab 40 mg 1 Tab, ORAL, ACBkfst Pharmacy Communication No Anticoag/antithrombotic/antiplat elet, N/A, As directed Pharmacy Communication As Directed, N/A, As directed Pharmacy Consult Pharmacotherapy Review, N/A, As directed tamsulosin 0.4 mg Cap 0.4 mg 1 Cap, ORAL, QBedtime Continuous: PRN: acetaminophen 325 mg Tab 650 mg 2 ea, ORAL, Q6H Dextrose 50% Inj 50 mL Syr 25 mL, IV, As directed Dextrose 50% Inj 50 mL Syr 50 mL, IV, As directed glucagon 1 mg Inj SDV 1 mg, SUBQ, As directed Glucose 40% Oral Gel 15 gm 15 gm 37.5 mL, ORAL, As directed levalbuterol 1.25 mg/3 mL Neb Amp 3 mL 1.25 mg 3 mL, INH, Q4H LORazepam 2 mg/mL, 1 mL Inj 2 mg 1 mL, IV, ONCE metoprolol tartrate 1 mg/mL Inj 5 mL 5 mg 5 mL, IV PUSH, Q6H nalOXone 0.4 mg/mL, 1 mL Inj 0.2 mg 0.5 mL, IV PUSH, As directed traMADol 50 mg Tab 50 mg 1 Tab, ORAL, Q6H Lab Results Labs All 24H Lab Results Date Auto Neutrophil Percent 79.4 % (HIGH) 03/22/22 05:56 PST Auto Neutrophil Absolute 8.8 K/mm3 (HIGH) 03/22/22 05:56 PST Auto Lymphocyte Percent 9.2 % 03/22/22 05:56 PST Auto Lymphocyte Absolute 1.0 K/mm3 03/22/22 05:56 PST Auto Monocyte Percent 10.4 % (HIGH) 03/22/22 05:56 PST Auto Monocyte Absolute 1.1 K/mm3 03/22/22 05:56 PST Auto Basophil Percent 0.5 % 03/22/22 05:56 PST Auto Basophil Absolute 0.1 K/mm3 03/22/22 05:56 PST Auto Eosinophil Percent 0.5 % 03/22/22 05:56 PST Auto Eosinophil Absolute 0.1 K/mm3 03/22/22 05:56 PST Culture Blood See Report 03/21/22 14:54 PST WBC 11.00 K/mm3 03/22/22 05:56 PST RBC 2.98 M/mm3 (LOW) 03/22/22 05:56 PST HGB 9.0 gm/dL (LOW) 03/22/22 05:56 PST HCT 27.1 % (LOW) 03/22/22 05:56 PST MCV 91.1 fL 03/22/22 05:56 PST MCH 30.2 pg 03/22/22 05:56 PST MCHC 33.2 gm/dL 03/22/22 05:56 PST RDW 14.7 % (HIGH) 03/22/22 05:56 PST PLT 458 K/mm3 (HIGH) 03/22/22 05:56 PST MPV 8.6 fL 03/22/22 05:56 PST Sodium Level 136 mmol/L 03/22/22 05:56 PST Potassium Level 4.0 mmol/L 03/22/22 05:56 PST Chloride Level 97 mmol/L (LOW) 03/22/22 05:56 PST CO2/Carbon Dioxide 30 mmol/L 03/22/22 05:56 PST Anion Gap 9 mmol/L 03/22/22 05:56 PST Glucose, Random 135 mg/dL (HIGH) 03/22/22 05:56 PST POCT - Glucose (Capillary) 176 mg/dL (HIGH) 03/22/22 11:48 PST BUN 12 mg/dL 03/22/22 05:56 PST Creatinine 0.9 mg/dL 03/22/22 05:56 PST BUN/Creat Ratio 13 (LOW) 03/22/22 05:56 PST Osmolality, Calculated 274 mOsm/L (LOW) 03/22/22 05:56 PST Calcium Level 8.3 mg/dL (LOW) 03/22/22 05:56 PST Magnesium Level 1.8 mg/dL 03/22/22 05:56 PST Phosphorus Level 2.9 mg/dL 03/22/22 05:56 PST Total Protein 5.9 gm/dL (LOW) 03/22/22 05:56 PST Albumin Level 2.5 gm/dL (LOW) 03/22/22 05:56 PST Globulin Level 3.4 gm/dL 03/22/22 05:56 PST A/G Ratio 0.7 (LOW) 03/22/22 05:56 PST Bilirubin, Total 0.7 mg/dL 03/22/22 05:56 PST Bilirubin, Direct 0.1 mg/dL 03/22/22 05:56 PST Bilirubin, Indirect (Calc) 0.6 mg/dL 03/22/22 05:56 PST AST 14 IntUnit/L (LOW) 03/22/22 05:56 PST ALT 11 IntUnit/L (LOW) 03/22/22 05:56 PST ALP 82 IntUnit/L 03/22/22 05:56 PST eGFR 88 mL/min/1.73m2 03/22/22 05:56 PST Images No new imaging Assessment/Plan _ 1. Altered mental status (Altered mental status, [id number]) 2. Atrial fibrillation with rapid ventricular response (Unspecified atrial fibrillation, I48.91) 3. MSSA bacteremia (Bacteremia, R78.81) 4. Gram-negative bacteremia (Bacteremia, R78.81) 5. Urinary catheter present (Presence of urogenital implants, Z96.0) 6. Diabetes mellitus (Type 2 diabetes mellitus without complications, E11.9) 7. HLD (hyperlipidemia) (Hyperlipidemia, unspecified, E78.5) 8. HTN (hypertension) (Essential (primary) hypertension, I10) 9. Hx of transient ischemic attack (TIA) (Personal history of transient ischemic attack (TIA), and cerebral infarction without residual deficits, Z86.73) Orders: levETIRAcetam (levETIRAcetam), 1,000 mg = 100 mL, IVPB, [id number], IV SOLN, 03/22/22 13:00:00 PST, 2 Time(s)/Dose(s), Stop date 03/22/22 13:29:00 PST, 400 mL/hr, 15 min LORazepam (Ativan), 2 mg, IV, ONCE, PRN, Seizures, STAT, INJ, 03/21/22 13:28:00 PST Chest 1 Vw Communication EEG Full Code Lactic Acid/Lactate MRI Brain W WO Contrast Physical Therapy Eval and Treat per protocol Physician Consult Precautions Serum Indices Treponema Ab Screen US Renal Virtual Care Neuro Consult #concern for CVA (Ruled out) - s/p tPA - MRI was negative, CTA with no LVO - TTE with no thrombus reported( PFO not done) - cont statin, not on antiplatelet agents, discussed with neurology Dr Cagle, the main concern was for cardioembolic process and Eliquis is enough, no need to add antiplatelets - PT #Afib with RVR - Monitor Vital signs q4h, O2 prn - continue digoxin and metoprolol - cont Eliquis #MSSA bacteremia, #Enterococcus and Citrobacter bacteremia - ID following - ID recs: Unasyn thru 2/6. Ancef 2 g iv q 8 2/7/23 hours for 4 weeks 03/13-04/10/22. 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 but did have some MV thickening - blood cultures negative till date, repeat cultures sent to uptrending leukocytosis #Seizure like activity - MRI brain w/wo contrast: -ve for brain lesion/stroke - Seizure precautions - Ativan prn for seizures - TeleNeuro consulted: recs EEG and Loading dose of Keppra 2gm followed by Keppra 500 mg bid - Treponema screen -ve #Urinary retention Hematuria - resolved #BPH - continue Blankenship catheter needs outpatient urology evaluation - per RN report patient was trialed off Blankenship and was retaining, it had to be placed back - no more hematuria, hgb stable - cont Flomax - US Renal shows normal b/l echogenicity and no hydronephrosis #HTN - On lispro #HLD - Atorvastatin 80 mg qdaily #DM type II - Insulin lispro correction scale #Status code: Full code Disposition: swing bed for abx course completion, clearance from neuro. PT OT Pt was seen and case discussed with the attending physician Dr. Mariah MD who agreed to the above assessment plan. Discussed with Cesilia Campbell MD PGY1 and the night resident and Diaz Ferraro MD PGY 3. Chacorta Li MD PGY2 I participated in the following activities of this patients care: the medical history, the physical exam, medical decision making. I personally performed: supervision of the patient's care, the medical history, the physical exam and medical decision making. The case was discussed with: resident physician Evaluation and management service: I agree with the evaluation and management decisions made in this patient's care. Results interpretation: I agree with the study interpretation in this patient's care. [id number] Male 03/22/2022 [facility] Progress Note Patient: SHERRON SURESH Age: 76 years Legal Sex: Male : 1945 Author: DO Fernandez Mina Basic Information Time Seen: Date and Time seen:: 03/22/2022 14:39:00. Review of Systems ROS reviewed as documented in chart Health Status Current medications: None, Active inpatient medications ACTIVE INPT MEDS: apixaban (Eliquis) 5 mg ORAL BID atorvastatin 80 mg ORAL QBedtime ceFAZolin (Ancef) 2 gm IVPB [id number] cholecalciferol 25 mcg ORAL DAILY digoxin 0.125 mg ORAL DAILY furosemide 20 mg ORAL DAILY insulin lispro (insulin lispro Correction Scale Med (Body wt 70-100kg)) SUBQ Q6H lisinopril 10 mg ORAL DAILY metoprolol 25 mg ORAL BID pantoprazole (Protonix) 40 mg ORAL ACBkfst Pharmacy Communication N/A As directed Pharmacy Communication N/A As directed Pharmacy Consult N/A As directed tamsulosin 0.4 mg ORAL QBedtime ACTIVE PRN MEDS: acetaminophen 650 mg ORAL Q6H glucagon 1 mg SUBQ As directed glucose (Dextrose 50% Inj 50 mL) 25 mL IV As directed glucose (Dextrose 50% Inj 50 mL) 50 mL IV As directed glucose (glucose 40% oral gel) 15 gm ORAL As directed levalbuterol (Xopenex) 1.25 mg INH Q4H metoprolol (metoprolol IV) 5 mg IV PUSH Q6H nalOXone (Narcan) 0.2 mg IV PUSH As directed traMADol 50 mg ORAL Q6H ONE TIME MEDS: None ACTIVE IV MEDS: None Physical Examination Intake and Output Intake and Output Fluid Balance Intake and Output as of 14:39 (24 hour periods starting at 06:00) 03/22/22 03/21/22 03/20/22 Intake mL 560 200 703 Output mL 950 3650 5600 Fluid Balance -[phone] -[phone] -4721 VS/Measurements: Inpt. Vital signs (ST) Vital Signs (last 24 hrs) Last Charted Minimum Maximum Temp(?F) 97.6 (MAR 22 11:44 PST) 97.5 (MAR 22 07:23 PST) 98.6 (MAR 22 00:07 PST) Heart Rate H 100 (MAR 22 11:44 PST) 82 (MAR 22 00:11 PST) H 103 (MAR 22 07:24 PST) Resp Rate 20 (FEB 10 11:44 PST) 19 (B 10 07:24 PST) H 25 (B 09 16:01 PST) SBP 117 (FEB 10 11:44 PST) 110 (FEB 10 00:11 PST) H 142 (FEB 10 07:24 PST) DBP 69 (FEB 10 11:44 PST) L 56 (B 00:11 PST) 73 (B 16:04 PST) SpO2 97 (MAR 22 11:44 PST) 95 (B 16:01 PST) 97 (B 03:44 PST) OXYFLOW 2 (MAR 22 11:44 PST) 2 (MAR 22 11:44 PST) 3 (MAR 21 16:01 PST) OXYDELIVERY Nasal cannula Nasal Nasal (MAR 22 11:44 PST) (MAR 21 16:01 PST) (MAR 21 16:01 PST) , Measurements 03/22/2022 05:35 PST Weight (kg) 89.1 kg Weight measured method Bed scale . resting dnd chest gae abd soft ext warm mlc ok Review / Management Laboratory Results Labs (Last four charted values) WBC 11.00 (FEB 10) H 11.30 (FEB 09) H 11.80 (FEB 08) 8.90 (FEB 08) Hgb L 9.0 (FEB 10) L 9.0 (FEB 09) L 9.3 (FEB 08) L 8.8 (FEB 08) Hct L 27.1 (FEB 10) L 27.2 (FEB 09) L 28.4 (FEB 08) L 26.5 (FEB 08) Plt H 458 (FEB 10) H 469 (FEB 09) H 474 (FEB 08) H 446 (FEB 08) Na 136 (FEB 10) 137 (FEB 09) 136 (FEB 08) 139 (FEB 08) K 4.0 (FEB 10) 3.6 (FEB 09) 4.5 (FEB 08) 4.6 (FEB 08) CO2 30 (FEB 10) H 33 (FEB 09) 30 (FEB 08) 32 (FEB 08) Cl L 97 (FEB 10) L 99 (FEB 09) L 98 (FEB 08) 102 (FEB 08) Cr 0.9 (FEB 10) 0.9 (MAR 21) 0.9 (MAR 20) 1.0 (MAR 20) BUN 12 (MAR 22) 10 (MAR 21) 10 (MAR 20) 8 (MAR 20) Glucose Random H 135 (MAR 22) 107 (MAR 21) H 151 (MAR 20) H 129 (MAR 20) Mg 1.8 (MAR 22) 1.8 (MAR 21) 1.9 (MAR 20) 2.0 (MAR 20) Phos 2.9 (MAR 22) 2.9 (MAR 21) 3.6 (MAR 20) 3.6 (MAR 19) Ca L 8.3 (MAR 22) L 8.4 (MAR 21) L 8.3 (MAR 20) L 8.4 (MAR 20) PT H 14.7 (MAR 20) H 14.8 (MAR 07) 14.2 (MAR 04) INR H 1.2 (MAR 20) H 1.2 (MAR 07) H 1.2 (MAR 04) PTT H 37.9 (MAR 20) L 21.3 (MAR 17) H 37.5 (MAR 17) 35.6 (MAR 17) DIAGNOSTIC DATA: 03/10/22: Blood culture 2/2 sets, Staphylococcus aureus, enterococcus fecalis, Citrobacter koseri. Cirtobacter koseri 03/10/22: Blood culture 2/2 sets Citrobacter koseri, Enterococcus, S. aureus: blood culture biofire enterobacteriacae, staph aureus. e faecalis 03/12/22: Blood culture 1/2 sets in progress gpc clusters: S aureus 03/13/22: Blood culture 2/2 sets neg. 03/15/22: Blood culture 2/2 sets neg. 03/10 urine culture: Greater than 100,000 colony-forming units and gram-negative vanesa. 03/10 UA: 46 WBCs, 15 RBCs. 03/04/22: MRSA screen negative. 03/06 MRI brain without contrast: Poor study. Echocardiogram 03/05/22: A bubble study not completed due to lack of cooperation, due to quality EF 55-60. No thrombus. No pericardial effusion. 03/04 CTA head and neck. No hemodynamically significant stenosis. 03/04/22 CT brain: Atrophy, no hemorrhage. 03/11/22: urine culture:>100,000 cfu/ml Klebsiella oxytoca <10,000 cfu/ml Citrobacter koseri 03/21/22 Treponema ab negative. 03/05/22: TTE Summary Technically limited study, poor acoustic windows. Due to the quality of the echocardiogram bubble study not completed. Ejection fraction is visually estimated at 55-60%. No obvious evidence of cardiac source thrombus. Mild left atrial enlargement. Right ventricle is not well visualized. Right atrium is not well visualized. Moderate to severe aortic insufficiency. Thickened mitral valve leaflets with reduced excursion. Tricuspid valve was not well visualized. Insufficient tricuspid regurgitation jet to calculate RVSP. Mild pulmonic regurgitation. Normal size aortic root. Normal size of IVC with normal inspiratory collapse. There is no evidence of pericardial effusion. 03/04/22 CTA head and neck; No evidence of hemodynamically significant stenosis in the neck. No dissection or occlusion Inflammatory changes surrounding the distal left common carotid and carotid bulb suggest prior endarterectomy. No evidence of hemodynamically significant stenosis in the head. No aneurysm or occlusion. No evidence of vascular mass. 03/04/22: ct brain Impression: Atrophy. No acute hemorrhage. Anti-Infective Medications Ordered Medications ceFAZolin, 2 gm = 1 Vial, IVPB, [id number], Indication= Bloodstream Infection, Routine, INJ, 03/19/22 20:00:00 PST, 4 Week(s), Stop date 04/16/22 19:59:00 PST, 200 mL/hr, 30 min Completed Medications ampicillin-sulbactam, 3 gm = 1 Vial, IVPB, [id number], Indication= Bacteremia / Fungemia, INJ, 03/11/22 18:00:00 PST, 7 Day(s), Stop date 03/18/22 23:59:00 PST, 200 mL/hr, 30 min vancomycin, 2,000 mg, IVPB, ONCE, Indication= Bloodstream Infection, IV SOLN, 03/11/22 4:00:00 PST, Stop date 03/11/22 4:00:00 PST, 250 mL/hr, 120 min Discontinued Medications ceFAZolin, 2 gm = 1 Vial, IVPB, Q8H, Indication= Bloodstream Infection, NOW, INJ, 03/19/22 9:52:00 PST, 4 Week(s), Stop date 04/16/22 9:51:00 PST, 200 mL/hr, 30 min cefTRIAXone, 1 gm, IVPB, Q24H, Indication= Sepsis, INJ, 03/10/22 12:52:00 PST vancomycin, 1,000 mg, IVPB, [id number], Indication= Bloodstream Infection, IV SOLN, 03/11/22 22:00:00 PST Impression and Plan Polymicrobial bacteremia, suspect MSSA bacteremia was present on admission and other organisms are secondary to Blankenship catheter.03/05 TTE neg. No evidence of hematogenous seeding. Ancef 2 g iv q 8 03/19/22 hours for 4 weeks 03/13-04/10/22. COPD exacerbation status post methylprednisolone. Diabetes mellitus, A1c 6.1, new diagnosis. Dyslipidemia. Atrial fibrillation. Stroke, status post tPA 03/04. Atrial fibrillation with RVR. Carotid artery disease, status post left carotid endarterectomy 02/21/2022. MLC 03/19/22 Avasys on board due to episodes of confusion. Tele-neuro consult pending. Stable from ID. DW bedside nurse. Face to face time 15 minutes. Total time spent 50 minutes. [id number] Male 03/22/2022 [facility] Neurology Consultation Patient: SHERRON SURESH Age: 76 years Legal Sex: MALE : 1945 Consult Requested by: MD Guillermo, [facility] Reason for Consultation eyes rolled back, non responsive, body stiffness History of Present Illness 76 year-old man with a past medical history of TIA, left carotid endarterectomy, hypertension, hyperlipidemia, and obesity who initially presented 03/04 with an acute transient episode of confusion, unresponsiveness, and 'posturing' per EMS. The episode was noted by the patient's while he was working in the yard. The patient was drowsy and disoriented on presentation. He was amnestic to the episode. CT neuroimaging was unremarkable. The patient received TNK. Neurology was consulted. The patient had returned to baseline upon assessment. The patient was found to be in atrial fibrillation with RVR. He was started on anticoagulation. MRI was unremarkable for acute stroke. A rapid response was called 03/20 for an episode of eyes rolled back, non responsive, body stiffness, and lactic acidosis. The patient was amnestic to the episode. 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 He is sleeping but easily awakens. He is disoriented and hard of hearing. The patient denies any personal or family history of seizures. He reports a history of stroke but is unable to characterize this. He reports 'of course,' when asked if he's had concussions before. Review of Systems Unable to perform ROS due to patient factors Physical Exam Vitals and Measurements T: 97.5 F HR: 103(Apical) HR: 68(Monitored) HR: 103 RR: 19 BP: 142/73 SpO2: 95% O2 Delivery: Nasal cannula O2 Flow: 3L/min HT: 180.34 cm WT: 89.1 kg BMI: 26.2 kg/m2 The exam was conducted with the assistance of bedside nursing staff. General: No acute distress. HEENT: Atraumatic, normocephalic. CV/Pulm: Breathing comfortably. Abdomen: Non-distended. Extremities: No cyanosis. Skin: No rash. Mental status: Awake, alert, and oriented to person, [place], says it is April. Language is fluent with intact comprehension. Cranial nerves: Visual simmons full. Extraocular muscles intact. V1-3 intact. Face symmetric. Tongue midline. Motor: No drift x 4 extremities. Sensory: Intact to LT x 4 extremities. Coordination: No dysmetria. Assessment/Plan _ 1. Altered mental status (Altered mental status, [id number]) 2. Atrial fibrillation with rapid ventricular response (Unspecified atrial fibrillation, I48.91) 3. MSSA bacteremia (Bacteremia, R78.81) 4. Gram-negative bacteremia (Bacteremia, R78.81) 5. Urinary catheter present (Presence of urogenital implants, Z96.0) 6. Diabetes mellitus (Type 2 diabetes mellitus without complications, E11.9) 7. HLD (hyperlipidemia) (Hyperlipidemia, unspecified, E78.5) 8. HTN (hypertension) (Essential (primary) hypertension, I10) 9. Hx of transient ischemic attack (TIA) (Personal history of transient ischemic attack (TIA), and cerebral infarction without residual deficits, Z86.73) 76 year-old man with a past medical history of TIA, left carotid endarterectomy, hypertension, hyperlipidemia, and obesity who initially presented 03/04 with an acute transient episode of confusion, unresponsiveness, and 'posturing.' The patient had an episode 2/ of eyes rolled back, non responsive, body stiffness, and lactic acidosis. The patient was amnestic to both events. The patient is sleeping but easily awakens with orientation to name only. He is otherwise disoriented. He follows commands and responds to questions. 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 Suspect these episodes are a manifestation of seizure as opposed to TIA. The fact that the episodes are similar, self-limited, recurrent, and associated with amnesia is suggestive. Disorientation, delirium vs prolonged postictal/interictal. Recommendations Workup - EEG Management - Levetiracetam 2 grams x 1 now - Levetiracetam 500 mg q12h - Seizure and delirium precautions - Lorazepam 2 mg IV PRN seizure > 3 minutes or multiple w/o return to baseline - [facility] Morbidity Report Form - Apixaban 5 mg q12h - Atorvastatin 80 mg daily We will continue to follow. Will follow-up EEG and provide further recommendations if needed. Case discussed with bedside nursing and recommendations given. Prior consent for telehealth services obtained from patient. This service is delivered via an interactive video telecommunication system. Total time spent providing care: 40 minutes Feng Gaffney MD [facility] Past Medical History Active Problems Body mass index 30+ - obesity Elevated serum cholesterol High blood pressure TIA (transient ischemic attack) Family History Family history is unknown Social History *Alcohol Screen How often do you have a drink containing alcohol? Never (0). How many standard drinks containing alcohol do you have on a typical day? Never (0). How often do you have six or more drinks on one occasion? Never (0). Ready to change: N/A. Previous treatment: None. *Substance Abuse Screen Substance abuse in household: No. Household substance abuse concerns: No. *Tobacco Use Screen Is there a smoker in the household? Yes. Do you have concerns about tobacco use in household? No. Over the past 30 days, what and how much have you smoked? 5-9 cigarettes (between 1/4 to 1/2 pack)/day in last 30 days. Over the past 30 days, what has been your smokeless tobacco use? Never. Are you ready to quit? No. Started at age: 12 Years. Number of years: 64. Receiving counseling during visit/stay: Yes. Home Medications Last Documented: 03/20/2022 aspirin 325 mg oral enteric coated tablet, 1 Tab, ORAL, DAILY, Not taking atenolol 50 mg oral tablet, 1 Tab, ORAL, DAILY, Not taking atenolol 50 mg oral tablet, 50 mg, 1 Tab, ORAL, DAILY, Not taking atorvastatin 80 mg oral tablet, 80 mg, 1 Tab, ORAL, DAILY cholecalciferol 1000 intl units oral tablet, 25 mcg, 1 Tab, ORAL, DAILY clopidogrel 75 mg oral tablet, 75 mg, 1 Tab, ORAL, DAILY digoxin 125 mcg (0.125 mg) oral tablet, 0.125 mg, 1 Tab, ORAL, DAILY docusate-senna 50 mg-8.6 mg oral capsule Eliquis 5 mg oral tablet, 5 mg, 1 Tab, ORAL, BID Fish Oil 1000 mg oral capsule, 1 Cap, ORAL, DAILY furosemide 20 mg oral tablet, 20 mg, 1 Tab, ORAL, DAILY lisinopril 10 mg oral tablet, 10 mg, 1 Tab, ORAL, DAILY metFORMIN, 500 mg, ORAL, DAILY metoprolol tartrate 25 mg oral tablet, 25 mg, 1 Tab, ORAL, BID tamsulosin 0.4 mg oral capsule, 0.4 mg, 1 Cap, ORAL, QBedtime traMADol, 50 mg, ORAL, Q6H, PRN Eliquis 5 mg oral tablet, Fish Oil 1000 mg oral capsule, aspirin 325 mg oral enteric coated tablet, atenolol 50 mg oral tablet, atenolol 50 mg oral tablet, atorvastatin 80 mg oral tablet, cholecalciferol 1000 intl units oral tablet, clopidogrel 75 mg oral tablet, digoxin 125 mcg (0.125 mg) oral tablet, docusate-senna 50 mg-8.6 mg oral capsule, furosemide 20 mg oral tablet, lisinopril 10 mg oral tablet, metFORMIN, metoprolol tartrate 25 mg oral tablet, tamsulosin 0.4 mg oral capsule, traMADol, Lab Results Labs All 24H Lab Results Date Lactic Acid Level 1.9 mmol/L 03/21/22 14:47 PST Treponema Ab Negative 03/21/22 14:47 PST Auto Neutrophil Percent 79.4 % (HIGH) 03/22/22 05:56 PST Auto Neutrophil Absolute 8.8 K/mm3 (HIGH) 03/22/22 05:56 PST Auto Lymphocyte Percent 9.2 % 03/22/22 05:56 PST Auto Lymphocyte Absolute 1.0 K/mm3 03/22/22 05:56 PST Auto Monocyte Percent 10.4 % (HIGH) 03/22/22 05:56 PST Auto Monocyte Absolute 1.1 K/mm3 03/22/22 05:56 PST Auto Basophil Percent 0.5 % 03/22/22 05:56 PST Auto Basophil Absolute 0.1 K/mm3 03/22/22 05:56 PST Auto Eosinophil Percent 0.5 % 03/22/22 05:56 PST Auto Eosinophil Absolute 0.1 K/mm3 03/22/22 05:56 PST Culture Blood See Report 03/21/22 14:54 PST WBC 11.00 K/mm3 03/22/22 05:56 PST RBC 2.98 M/mm3 (LOW) 03/22/22 05:56 PST HGB 9.0 gm/dL (LOW) 03/22/22 05:56 PST HCT 27.1 % (LOW) 03/22/22 05:56 PST MCV 91.1 fL 03/22/22 05:56 PST MCH 30.2 pg 03/22/22 05:56 PST MCHC 33.2 gm/dL 03/22/22 05:56 PST RDW 14.7 % (HIGH) 03/22/22 05:56 PST PLT 458 K/mm3 (HIGH) 03/22/22 05:56 PST MPV 8.6 fL 03/22/22 05:56 PST Sodium Level 136 mmol/L 03/22/22 05:56 PST Potassium Level 4.0 mmol/L 03/22/22 05:56 PST Chloride Level 97 mmol/L (LOW) 03/22/22 05:56 PST CO2/Carbon Dioxide 30 mmol/L 03/22/22 05:56 PST Anion Gap 9 mmol/L 03/22/22 05:56 PST Glucose, Random 135 mg/dL (HIGH) 03/22/22 05:56 PST POCT - Glucose (Capillary) 130 mg/dL (HIGH) 03/22/22 05:54 PST BUN 12 mg/dL 03/22/22 05:56 PST Creatinine 0.9 mg/dL 03/22/22 05:56 PST BUN/Creat Ratio 13 (LOW) 03/22/22 05:56 PST Osmolality, Calculated 274 mOsm/L (LOW) 03/22/22 05:56 PST Calcium Level 8.3 mg/dL (LOW) 03/22/22 05:56 PST Magnesium Level 1.8 mg/dL 03/22/22 05:56 PST Phosphorus Level 2.9 mg/dL 03/22/22 05:56 PST Total Protein 5.9 gm/dL (LOW) 03/22/22 05:56 PST Albumin Level 2.5 gm/dL (LOW) 03/22/22 05:56 PST Globulin Level 3.4 gm/dL 03/22/22 05:56 PST A/G Ratio 0.7 (LOW) 03/22/22 05:56 PST Bilirubin, Total 0.7 mg/dL 03/22/22 05:56 PST Bilirubin, Direct 0.1 mg/dL 03/22/22 05:56 PST Bilirubin, Indirect (Calc) 0.6 mg/dL 03/22/22 05:56 PST AST 14 IntUnit/L (LOW) 03/22/22 05:56 PST ALT 11 IntUnit/L (LOW) 03/22/22 05:56 PST ALP 82 IntUnit/L 03/22/22 05:56 PST eGFR 88 mL/min/1.73m2 03/22/22 05:56 PST Diagnostic Results General Diagnostic Result Type: Chest 1 Vw Result Date: March 15, 2022 02:16 PST Reason For Exam: Shortness of Breath, Dyspnea, Hypoxia REPORT: Clinical HistorysobComparison:XR CHEST on 03/10/2022, 2 images.Technique: 2 frontal views of the chestWithout ContrastGLISSON, SHERRON, [id number] FINDINGS: Trachea is midline. Heart is enlarged, cardiomediastinal silhouette unremarkable.There is hazy patchy airspace consolidation involving right mid and lower lung primarily, less so left lower lung with some associated subsegmental atelectasis. There is no definite pulmonary vascular congestion, no evidence of pneumothorax. Small pleural effusions cannot be excluded based on this study.Osseous structures do not suggest acute pathology. There are degenerative changes in the spine. IMPRESSION: 1. Mild cardiac enlargement2. Hazy patchy airspace consolidation right mid and lower lung, less so left lower lung with some associated subsegmental atelectasis, cannot exclude multifocal pneumonia.This report was electronically signed by Lucas Frank MD on 03/15/2022 3:19:29 AM. Result Type: Chest 1 Vw Portable Result Date: March 21, 2022 06:04 PST Reason For Exam: Congestion REPORT: EXAM: Chest 1 Vw PortableCLINICAL INDICATION: Chest pain COMPARISON: Radiograph from the prior day TECHNIQUE: Single portable frontal view of the chest. FINDINGS: Normal cardiomediastinal silhouette. Infiltrates or pulmonary edema is seen No acute abnormality of the bony thorax. IMPRESSION: 1. No change Signed by: Chapo Lowery on 03/21/2022 6:23 AM Computerized Tomography Result Type: CT Brain WO Contrast Result Date: March 20, 2022 18:59 PST Reason For Exam: CVA REPORT: Clinical Historyaltered mental status cvaComparison:CT HEAD on 03/05/2022, 230 images.Technique: All CT scans at this medical facility are performed using dose modulation techniques as appropriate to a performed exam including the following: Automated exposure control was utilized; adjustment of the mA and/or kV according to patient size; and use of iterative reconstruction technique.All CT studies are reported to the Dose Index Registry of the [employer]. Without ContrastRadiation Dose: CTDI (mGy): 52.11; DLP (mGy-cm): 1032.36GLISSON, BILL, [id number] FINDINGS: Cerebral ventricles are symmetric in morphology. There is no extra-axial collection, midline shift or intracranial hemorrhage . Basal cisterns are not effaced.Visual segments of the orbits are unremarkable. Paranasal sinuses and mastoids are well pneumatized. There is no depressed skull fracture. IMPRESSION: Negative for an acute intracranial process by noncontrast CT. Should symptoms persist MRI follow-up is recommended for more sensitive evaluation.This report was electronically signed by Ari Willard MD on 03/20/2022 7:14:35 PM.The above findings were reported to Nurse Gary Clark. The call was initiated at 03/20/2022 7:15:08 PM. Ultrasound Result Type: US Renal Result Date: March 21, 2022 15:56 PST Reason For Exam: Urinary retention REPORT: EXAMINATION: US RenalCLINICAL HISTORY: Urinary retention.COMPARISONS: No priors available for comparison.TECHNIQUE:Real-time sonography and color-flow imaging of the kidneys was performed and multiple images were obtained. FINDINGS: The right kidney measures 11.2 cm. The left kidney measures 9.7 cm.Both kidneys demonstrate normal echogenicity and contour without hydronephrosis. There are punctate echogenic reflector scattered throughout both kidneys not felt to represent true calculi. Urinary bladder was not imaged. IMPRESSION: No hydronephrosis. Punctate echogenic reflectors throughout both kidneys are not felt to represent true calculi. Correlation with clinical findings and urinalysis is recommended. Signed by: Sandeep Montiel on 03/21/2022 4:09 PM Magnetic Resonance Imaging Result Type: MRI Brain W WO Contrast Result Date: March 21, 2022 19:03 PST Reason For Exam: Seizures/Convulsions REPORT: Clinical Historyconvulsions AMS, r/o brain lesionComparison:CT HEAD on 03/20/2022, 241 images.Technique: Multiplanar multisequence MR imaging of the brain before and after the administration of IV contrastContrast: Dotarem 18.0 SHERRON Baker, [id number] Findings: The ventricles and sulci are normal in size and configuration. There is no acute infarct or intracerebral hemorrhage. No extra-axial blood or fluid collection is present. 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 Increased T2/FLAIR periventricular signal compatible chronic small vessel ischemia. The brainstem, posterior fossa and cervicomedullary junction are preserved. The orbits, periorbital and pericavernous spaces are normal. The pituitary is unremarkable. No abnormality of the skull base or calvarium is identified. Impression: No intracranial mass is identified. 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 No qualifying data [id number] Male 03/22/2022 [facility] Progress Note Patient: MAYRA SURESH J Age: 76 years Legal Sex: MALE : 1945 Date of Service 03/21/22 Hospital Course 76-year-old male with hypertension, hyperlipidemia, chronic ex-smoker, newly diagnosed type II DM, ?history of TIA's, carotid endarterectomy (elective, 02/21/2022) BIBA to the ED with c/o AMS (GCS 8/15 on presentation) and admitted due to the possibility of acute stroke. Vital signs were significant for Tachycardia (144bpm) and ECG showed new onset Afib with RVR. CT brain was -ve for hemorrhagic stroke. Pt was given tPA in ED as per recs of Neurologist. CT angio was -ve for hemodynamically significant stenosis in head and neck. Pt was transferred to ICU on 03/04, MRI brain (03/06) was negative for acute stroke and downgraded on 03/07. During the course of ICU stay , pt stayed AAOX3. ECHO without bubble study was -ve for evidence of cardiac source thrombus, negative for vegetations and EF 60%. Dual antiplatelet agents were dc'd as per recs of Neuro. Cardio (Dr. Chang) was consulted who recommended Metoprolol and digoxin for Afib and outpt f/u. Pt had a ?traumatic urinary catheterization and later had a MSSA and gram -ve bacteremia. ID was consulted and pt was started on Unasyn and later switched to Ancef with Midline and goal to complete abx treatment (04/10/22). Repeat cultures are negative till date. Pt had a rapid response on 03/20/22 based on seizure like activity (eyes rolled back, non responsive, body stiffness). Lactic acid was elevated to 5.4. CT scan brain was done and negative for acute findings. Pt stayed in ICU for observation without intubation and later downgraded on 03/21/22 and care transitioned to the residency team. Pt says that he does not recall the seizures/event. Denies tongue bite, fecal incontinence and prior hx of seizures in the past. MRI brain w/wo contrast ordered along with repeat cultures due uptrending leukocytosis. F/u with neuro for further recs. Pt has urinary cath in place due to urinary retention after failed attempt to dc blankenship's, pt to f/u with urologist outpt. Subjective Pt evaluated in the afternoon at bedside. Denies any new complaints. Pt is tolerating oral diet well. No focal neurological weakness. Objective Vitals and Measurements T: 98.2 F HR: 92(Apical) HR: 68(Monitored) HR: 94 RR: 25 BP: 137/73 SpO2: 96% O2 Delivery: Nasal cannula O2 Flow: 3L/min FiO2: 100% HT: 180.34 cm WT: 89.7 kg BMI: 26.2 kg/m2 Intake and Output as of 17:23 (24 hour periods starting at 06:00) 03/21/22 03/20/22 03/19/22 Intake mL 0 703 150 Output mL [phone] Fluid Balance -657 -[phone] -5087 Physical Exam General: Alert and oriented to time, place and person, No acute distress. HENT: Normocephalic, Normal hearing. Neck: Supple. Respiratory: Respirations are non-labored. Cardiovascular: Normal rate, No edema Musculoskeletal: Gait not assessed due to risk of fall. Integumentary: Warm, No pallor, dry peeled off skin noticed on b/l legs. Neurologic: Alert, Oriented. Psychiatric: Cooperative, Appropriate mood and affect. Neurological: CN II-XII intact. Strength and sensation symmetric and intact throughout. Reflexes 2+ throughout. Cerebellar testing normal. Inpatient Medications Scheduled: apixaban 5 mg Tab 5 mg 1 Tab, ORAL, BID atorvastatin 40 mg Tab 80 mg 2 Tab, ORAL, QBedtime ceFAZolin 2 gm 1 Vial, IVPB, U2M-Orlnigvk cholecalciferol (D3) 25 mcg (1,000 IU) Tab 25 mcg 1 Tab, ORAL, DAILY digoxin 0.125 mg Tab 0.125 mg 1 Tab, ORAL, DAILY furosemide 20 mg Tab 20 mg 1 Tab, ORAL, DAILY insulin lispro (Admelog) 100 units/mL, 3 mL MDV correction scale, SUBQ, Q6H lisinopril 10 mg Tab 10 mg 1 Tab, ORAL, DAILY metoprolol tartrate 25 mg Tab 25 mg 1 Tab, ORAL, BID pantoprazole 40 mg EC Tab 40 mg 1 Tab, ORAL, ACBkfst Pharmacy Communication No Anticoag/antithrombotic/antiplat elet, N/A, As directed Pharmacy Communication As Directed, N/A, As directed Pharmacy Consult Pharmacotherapy Review, N/A, As directed tamsulosin 0.4 mg Cap 0.4 mg 1 Cap, ORAL, QBedtime Continuous: sodium chloride 0.9% 500 mL 500 mL, IV, 100 mL/hr PRN: acetaminophen 325 mg Tab 650 mg 2 ea, ORAL, Q6H Dextrose 50% Inj 50 mL Syr 25 mL, IV, As directed Dextrose 50% Inj 50 mL Syr 50 mL, IV, As directed glucagon 1 mg Inj SDV 1 mg, SUBQ, As directed Glucose 40% Oral Gel 15 gm 15 gm 37.5 mL, ORAL, As directed levalbuterol 1.25 mg/3 mL Neb Amp 3 mL 1.25 mg 3 mL, INH, Q4H LORazepam 2 mg/mL, 1 mL Inj 2 mg 1 mL, IV, ONCE metoprolol tartrate 1 mg/mL Inj 5 mL 5 mg 5 mL, IV PUSH, Q6H nalOXone 0.4 mg/mL, 1 mL Inj 0.2 mg 0.5 mL, IV PUSH, As directed traMADol 50 mg Tab 50 mg 1 Tab, ORAL, Q6H Lab Results Labs All 24H Lab Results Date Lactic Acid Level 1.9 mmol/L 03/21/22 14:47 PST Auto NRBC % 0.1 % 03/20/22 19:15 PST Auto Neutrophil Percent 80.1 % (HIGH) 03/21/22 03:59 PST Auto Neutrophil Absolute 9.1 K/mm3 (HIGH) 03/21/22 03:59 PST Auto Lymphocyte Percent 9.6 % 03/21/22 03:59 PST Auto Lymphocyte Absolute 1.1 K/mm3 03/21/22 03:59 PST Auto Monocyte Percent 9.1 % 03/21/22 03:59 PST Auto Monocyte Absolute 1.0 K/mm3 03/21/22 03:59 PST Auto Basophil Percent 0.5 % 03/21/22 03:59 PST Auto Basophil Absolute 0.1 K/mm3 03/21/22 03:59 PST Auto Eosinophil Percent 0.7 % 03/21/22 03:59 PST Auto Eosinophil Absolute 0.1 K/mm3 03/21/22 03:59 PST WBC 11.30 K/mm3 (HIGH) 03/21/22 03:59 PST RBC 3.00 M/mm3 (LOW) 03/21/22 03:59 PST HGB 9.0 gm/dL (LOW) 03/21/22 03:59 PST HCT 27.2 % (LOW) 03/21/22 03:59 PST MCV 90.9 fL 03/21/22 03:59 PST MCH 30.0 pg 03/21/22 03:59 PST MCHC 33.0 gm/dL 03/21/22 03:59 PST RDW 14.5 % 03/21/22 03:59 PST PLT 469 K/mm3 (HIGH) 03/21/22 03:59 PST MPV 9.0 fL 03/21/22 03:59 PST PT - Patient 14.7 sec (HIGH) 03/20/22 19:15 PST PT - INR 1.2 - (HIGH) 03/20/22 19:15 PST PTT - Patient 37.9 sec (HIGH) 03/20/22 19:15 PST Sodium Level 137 mmol/L 03/21/22 03:59 PST Potassium Level 3.6 mmol/L 03/21/22 03:59 PST Chloride Level 99 mmol/L (LOW) 03/21/22 03:59 PST CO2/Carbon Dioxide 33 mmol/L (HIGH) 03/21/22 03:59 PST Anion Gap 5 mmol/L 03/21/22 03:59 PST Glucose, Random 107 mg/dL 03/21/22 03:59 PST POCT - Glucose (Capillary) 180 mg/dL (HIGH) 03/21/22 16:52 PST BUN 10 mg/dL 03/21/22 03:59 PST Creatinine 0.9 mg/dL 03/21/22 03:59 PST BUN/Creat Ratio 11 (LOW) 03/21/22 03:59 PST Osmolality, Calculated 273 mOsm/L (LOW) 03/21/22 03:59 PST Calcium Level 8.4 mg/dL (LOW) 03/21/22 03:59 PST Magnesium Level 1.8 mg/dL 03/21/22 03:59 PST Phosphorus Level 2.9 mg/dL 03/21/22 03:59 PST Total Protein 5.9 gm/dL (LOW) 03/21/22 03:59 PST Albumin Level 2.6 gm/dL (LOW) 03/21/22 03:59 PST Globulin Level 3.3 gm/dL 03/21/22 03:59 PST A/G Ratio 0.8 (LOW) 03/21/22 03:59 PST Bilirubin, Total 0.7 mg/dL 03/21/22 03:59 PST Bilirubin, Direct 0.2 mg/dL 02/09/23 03:59 PST Bilirubin, Indirect (Calc) 0.5 mg/dL 03/21/22 03:59 PST AST 14 IntUnit/L (LOW) 03/21/22 03:59 PST ALT 21 IntUnit/L 03/21/22 03:59 PST ALP 84 IntUnit/L 03/21/22 03:59 PST Troponin I 0.17 ng/mL (Critical) 03/20/22 19:15 PST eGFR 88 mL/min/1.73m2 03/21/22 03:59 PST Images No new imaging Assessment/Plan _ 1. Altered mental status (Altered mental status, [id number] F917) 2. Atrial fibrillation with rapid ventricular response (Unspecified atrial fibrillation, I48.91) 3. MSSA bacteremia (Bacteremia, R78.81) 4. Gram-negative bacteremia (Bacteremia, R78.81) 5. Urinary catheter present (Presence of urogenital implants, Z96.0) 6. Diabetes mellitus (Type 2 diabetes mellitus without complications, E11.9) 7. HLD (hyperlipidemia) (Hyperlipidemia, unspecified, E78.5) 8. HTN (hypertension) (Essential (primary) hypertension, I10) 9. Hx of transient ischemic attack (TIA) (Personal history of transient ischemic attack (TIA), and cerebral infarction without residual deficits, Z86.73) Orders: LORazepam (Ativan), 2 mg, IV, ONCE, PRN, Seizures, STAT, INJ, 03/21/22 13:28:00 PST Communication Lactic Acid/Lactate MRI Brain W WO Contrast Physical Therapy Eval and Treat per protocol Physician Consult Precautions Serum Indices Treponema Ab Screen US Renal #concern for CVA - s/p tPA - MRI was negative, CTA with no LVO - TTE with no thrombus reported( PFO not done) - cont statin, not on antiplatelet agents, discussed with neurology Dr Cagle, the main concern was for cardioembolic process and Eliquis is enough, no need to add antiplatelets - PT #Afib with RVR - Monitor Vital signs q4h, O2 prn - continue digoxin and metoprolol - cont Eliquis #MSSA bacteremia, #Enterococcus and Citrobacter bacteremia - ID following - ID recs: Unasyn thru 03/18. Ancef 2 g iv q 8 03/19/22 hours for 4 weeks 03/13-04/10/22. 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 but did have some MV thickening - blood cultures negative till date, repeat cultures sent to uptrending leukocytosis #Seizure like activity - Ordered MRI brain w/wo contrast to rule out brain lesion - Seizure precautions - Ativan prn for seizures - Neuro consult pending - Treponema screen #Urinary retention Hematuria - resolved #BPH - continue Blankenship catheter needs outpatient urology evaluation - per RN report patient was trialed off Blankenship and was retaining, it had to be placed back - no more hematuria, hgb stable - cont Flomax - US Renal shows normal b/l echogenicity and no hydronephrosis #HTN - On lispro #HLD - Atorvastatin 80 mg qdaily #DM type II - Insulin lispro correction scale #Status code: Full code Disposition: swing bed for abx course completion, clearance from neuro PT OT Pt was seen and case discussed with the attending physician Dr. Eli MD who agreed to the above assessment plan. Discussed with Cesilia Campbell MD PGY1 and the night resident and Diaz Ferraro MD PGY 3. Chacorta Li MD PGY2 New onset seizure per report and notes , it is unclear if repeated episodes of neurological deficit are associated to this event or not, will consider broadening differential including AVM , mass, lession, with MRI brain W/WO/C, will recall Neurology Dr Cagle for his input, and order RPR, and repeat blood culture, explained to family at bedside and patient whom agreed with plan. The case was discussed with: the Resident . Discussion of management and test result interpretation with OTHER PROVIDERS: ID Dr Fernandez, Neuro Dr Cagle Prior EXTERNAL notes/records are reviewed. Home medications reviewed and reconciled based on the information available at the time of dictation Care is affected by social determinants or health: I participated in the following activities of this patient's care: (a) medical history, (b) physical exam, (c) assessment and plan/medical decision making, (d) supervision of patient's care I agree with the study interpretation in this patient's care, evaluation and management decisions made in this patient's care. History, vital signs, laboratory and imaging tests were reviewed by me INDEPENDENTLY. William Ordonez MD Internal Medicine - Hospitalist [id number] Male 03/22/2022 [facility] Progress Note Patient: SHERRON SURESH Age: 76 years Legal Sex: Male : 1945 Author: DO Fernandez Mina Basic Information Time Seen: Date and Time seen:: 03/21/2022 10:46:00. transferred to ICU. ct head neg. Transferred to ICU for ?seizure and ams. At time of transfer was resolved. Review of Systems ROS reviewed as documented in chart Health Status Current medications: None, Active inpatient medications ACTIVE INPT MEDS: apixaban (Eliquis) 5 mg ORAL BID atorvastatin 80 mg ORAL QBedtime ceFAZolin (Ancef) 2 gm IVPB [id number] cholecalciferol 25 mcg ORAL DAILY digoxin 0.125 mg ORAL DAILY furosemide 20 mg ORAL DAILY insulin lispro (insulin lispro Correction Scale Med (Body wt 70-100kg)) SUBQ Q6H lisinopril 10 mg ORAL DAILY metoprolol 25 mg ORAL BID pantoprazole (Protonix) 40 mg ORAL ACBkfst Pharmacy Communication N/A As directed Pharmacy Communication N/A As directed Pharmacy Consult N/A As directed tamsulosin 0.4 mg ORAL QBedtime ACTIVE PRN MEDS: acetaminophen 650 mg ORAL Q6H glucagon 1 mg SUBQ As directed glucose (Dextrose 50% Inj 50 mL) 25 mL IV As directed glucose (Dextrose 50% Inj 50 mL) 50 mL IV As directed glucose (glucose 40% oral gel) 15 gm ORAL As directed levalbuterol (Xopenex) 1.25 mg INH Q4H metoprolol (metoprolol IV) 5 mg IV PUSH Q6H nalOXone (Narcan) 0.2 mg IV PUSH As directed traMADol 50 mg ORAL Q6H ONE TIME MEDS: (Completed) furosemide (Lasix) 20 mg IV PUSH ONCE (Completed) furosemide (Lasix) 20 mg IV PUSH ONCE ACTIVE IV MEDS: sodium chloride 0.9% 500 mL (Normal Saline 0.9% 500 mL) 500 mL 100 mL/hr Physical Examination Intake and Output Intake and Output Fluid Balance Intake and Output as of 10:46 (24 hour periods starting at 06:00) 03/21/22 03/20/22 03/19/22 Intake mL 0 703 150 Output mL 0 5600 6900 Fluid Balance 0 -5535 -7496 VS/Measurements: Inpt. Vital signs (ST) Vital Signs (last 24 hrs) Last Charted Minimum Maximum Temp(?F) 98.2 (MAR 21 07:00 PST) 97.7 (MAR 20 11:17 PST) 98.2 (MAR 21 07:00 PST) Heart Rate 64 (MAR 21 10:19 PST) 64 (MAR 21 10:19 PST) H 104 (MAR 21 07:45 PST) Resp Rate 14 (MAR 21 10:19 PST) 14 (MAR 21 02:00 PST) H 27 (MAR 21 08:00 PST) SBP H 141 (MAR 21 10:19 PST) 113 (MAR 21 05:00 PST) H 148 (MAR 21 07:00 PST) DBP 74 (MAR 21 10:19 PST) 62 (MAR 20 15:53 PST) H 101 (MAR 20 20:00 PST) SpO2 95 (MAR 21 09:30 PST) 94 (MAR 21 01:00 PST) 100 (MAR 20 15:53 PST) OXYFIO2 100 (MAR 20 20:00 PST) 100 (MAR 20 20:00 PST) 100 (MAR 20 20:00 PST) OXYFLOW 3 (MAR 21 08:00 PST) 3 (MAR 20 23:00 PST) 15 (MAR 20 20:00 PST) OXYDELIVERY Nasal cannula Nasal Nasal (MAR 21 09:30 PST) (MAR 20:17 PST) (MAR 20 11:17 PST) , Measurements 03/20/2022 09:25 PST Weight (kg) 89.7 kg Weight measured method Bed scale . aao chest coarse cv irregular abd soft ext warm legs dry non blanching ankles mlc ok Review / Management Laboratory Results Labs (Last four charted values) WBC H 11.30 (MAR 21) H 11.80 (FEB 08) 8.90 (FEB 08) 10.60 (FEB 07) Hgb L 9.0 (FEB 09) L 9.3 (FEB 08) L 8.8 (FEB 08) L 8.8 (FEB 07) Hct L 27.2 (FEB 09) L 28.4 (FEB 08) L 26.5 (FEB 08) L 26.4 (B 07) Plt H 469 (FEB 09) H 474 (FEB 08) H 446 (FEB 08) H 436 (B 07) Na 137 (B 09) 136 (FEB 08) 139 (FEB 08) 138 (B 07) K 3.6 (B 09) 4.5 (FEB 08) 4.6 (FEB 08) 3.9 (B 07) CO2 H 33 (B 09) 30 (B 08) 32 (B 08) 32 (B 07) Cl L 99 (B 09) L 98 (B 08) 102 (FEB 08) 103 (B 07) Cr 0.9 (B 09) 0.9 (FEB 08) 1.0 (FEB 08) 0.7 (FEB 07) BUN 10 (FEB 09) 10 (FEB 08) 8 (FEB 08) 8 (B 07) Glucose Random 107 (B 09) H 151 (B 08) H 129 (B 08) H 135 (B 07) Mg 1.8 (B 09) 1.9 (FEB 08) 2.0 (FEB 08) L 1.6 (B 07) Phos 2.9 (FEB 09) 3.6 (FEB 08) 3.6 (FEB 07) 3.6 (FEB 06) Ca L 8.4 (MAR 09) L 8.3 (B 08) L 8.4 (B 08) L 8.1 (MAR 07) PT H 14.7 (MAR 08) H 14.8 (MAR 07) 14.2 (MAR 04) INR H 1.2 (MAR 08) H 1.2 (MAR 07) H 1.2 (MAR 04) PTT H 37.9 (FEB 08) L 21.3 (MAR 17) H 37.5 (MAR 17) 35.6 (MAR 17) DIAGNOSTIC DATA: 03/10/22: Blood culture 2/2 sets, Staphylococcus aureus, enterococcus fecalis, Citrobacter koseri. Cirtobacter koseri 03/10/22: Blood culture 2/2 sets Citrobacter koseri, Enterococcus, S. aureus: blood culture biofire enterobacteriacae, staph aureus. e faecalis 03/12/22: Blood culture 1/2 sets in progress gpc clusters: S aureus 03/13/22: Blood culture 2/2 sets neg. 03/15/22: Blood culture 2/2 sets neg. 03/10 urine culture: Greater than 100,000 colony-forming units and gram-negative vanesa. 03/10 UA: 46 WBCs, 15 RBCs. 03/04/22: MRSA screen negative. 03/06 MRI brain without contrast: Poor study. Echocardiogram 03/05/22: A bubble study not completed due to lack of cooperation, due to quality EF 55-60. No thrombus. No pericardial effusion. 03/04 CTA head and neck. No hemodynamically significant stenosis. 03/04/22 CT brain: Atrophy, no hemorrhage. 03/11/22: urine culture:>100,000 cfu/ml Klebsiella oxytoca <10,000 cfu/ml Citrobacter koseri 03/05/22: TTE Summary Technically limited study, poor acoustic windows. Due to the quality of the echocardiogram bubble study not completed. Ejection fraction is visually estimated at 55-60%. No obvious evidence of cardiac source thrombus. Mild left atrial enlargement. Right ventricle is not well visualized. Right atrium is not well visualized. Moderate to severe aortic insufficiency. Thickened mitral valve leaflets with reduced excursion. Tricuspid valve was not well visualized. Insufficient tricuspid regurgitation jet to calculate RVSP. Mild pulmonic regurgitation. Normal size aortic root. Normal size of IVC with normal inspiratory collapse. There is no evidence of pericardial effusion. 03/04/22 CTA head and neck; No evidence of hemodynamically significant stenosis in the neck. No dissection or occlusion Inflammatory changes surrounding the distal left common carotid and carotid bulb suggest prior endarterectomy. No evidence of hemodynamically significant stenosis in the head. No aneurysm or occlusion. No evidence of vascular mass. 03/04/22: ct brain Impression: Atrophy. No acute hemorrhage. Anti-Infective Medications Ordered Medications ceFAZolin, 2 gm = 1 Vial, IVPB, [id number], Indication= Bloodstream Infection, Routine, INJ, 03/19/22 20:00:00 PST, 4 Week(s), Stop date 04/16/22 19:59:00 PST, 200 mL/hr, 30 min Completed Medications ampicillin-sulbactam, 3 gm = 1 Vial, IVPB, [id number], Indication= Bacteremia / Fungemia, INJ, 03/11/22 18:00:00 PST, 7 Day(s), Stop date 03/18/22 23:59:00 PST, 200 mL/hr, 30 min vancomycin, 2,000 mg, IVPB, ONCE, Indication= Bloodstream Infection, IV SOLN, 03/11/22 4:00:00 PST, Stop date 03/11/22 4:00:00 PST, 250 mL/hr, 120 min Discontinued Medications ceFAZolin, 2 gm = 1 Vial, IVPB, Q8H, Indication= Bloodstream Infection, NOW, INJ, 03/19/22 9:52:00 PST, 4 Week(s), Stop date 04/16/22 9:51:00 PST, 200 mL/hr, 30 min cefTRIAXone, 1 gm, IVPB, Q24H, Indication= Sepsis, INJ, 03/10/22 12:52:00 PST vancomycin, 1,000 mg, IVPB, [id number], Indication= Bloodstream Infection, IV SOLN, 03/11/22 22:00:00 PST Impression and Plan Polymicrobial bacteremia, suspect MSSA bacteremia was present on admission and other organisms are secondary to Blankenship catheter.03/05 TTE neg. No evidence of hematogenous seeding. Ancef 2 g iv q 8 03/19/22 hours for 4 weeks 03/13-04/10/22. COPD exacerbation status post methylprednisolone. Diabetes mellitus, A1c 6.1, new diagnosis. Dyslipidemia. Atrial fibrillation. Stroke, status post tPA 03/04. Atrial fibrillation with RVR. Carotid artery disease, status post left carotid endarterectomy 02/21/2022. MLC 03/19/22 Patient at clinical baseline. Etiology of event overnight unclear. No change from ID. Continue Ancef. Labs and films reviewed. [id number] Male 03/21/2022 [facility] Progress Note Patient: SHERRON SURESH Age: 76 years Legal Sex: Male : 1945 Author: DO Fernandez Mina Basic Information Time Seen: Date and Time seen:: 03/20/2022 21:11:00. ambulating without difficulty. Review of Systems ROS reviewed as documented in chart Health Status Current medications: None, Active inpatient medications ACTIVE INPT MEDS: apixaban (Eliquis) 5 mg ORAL BID atorvastatin 80 mg ORAL QBedtime ceFAZolin (Ancef) 2 gm IVPB [id number] cholecalciferol 25 mcg ORAL DAILY digoxin 0.125 mg ORAL DAILY furosemide 20 mg ORAL DAILY insulin lispro (insulin lispro Correction Scale Med (Body wt 70-100kg)) SUBQ Q6H lisinopril 10 mg ORAL DAILY metoprolol 25 mg ORAL BID pantoprazole (Protonix) 40 mg ORAL ACBkfst Pharmacy Communication N/A As directed Pharmacy Communication N/A As directed Pharmacy Consult N/A As directed tamsulosin 0.4 mg ORAL QBedtime ACTIVE PRN MEDS: acetaminophen 650 mg ORAL Q6H glucagon 1 mg SUBQ As directed glucose (Dextrose 50% Inj 50 mL) 25 mL IV As directed glucose (Dextrose 50% Inj 50 mL) 50 mL IV As directed glucose (glucose 40% oral gel) 15 gm ORAL As directed levalbuterol (Xopenex) 1.25 mg INH Q4H metoprolol (metoprolol IV) 5 mg IV PUSH Q6H nalOXone (Narcan) 0.2 mg IV PUSH As directed traMADol 50 mg ORAL Q6H ONE TIME MEDS: (Completed) furosemide (Lasix) 20 mg IV PUSH ONCE (Completed) furosemide (Lasix) 20 mg IV PUSH ONCE (Completed) magnesium sulfate 2 gm IVPB ONCE ACTIVE IV MEDS: sodium chloride 0.9% 500 mL (Normal Saline 0.9% 500 mL) 500 mL 100 mL/hr Problem List: Problem List Active or Inactive Problems (4) Body mass index 30+ - obesity Elevated serum cholesterol High blood pressure TIA (transient ischemic attack) Physical Examination Intake and Output Intake and Output Fluid Balance Intake and Output as of 21:11 (24 hour periods starting at 06:00) 03/20/22 03/19/22 03/18/22 Intake mL 095 074 3236 Output mL 2900 0 8650 Fluid Balance -1348 -7082 -8983 VS/Measurements: Inpt. Vital signs (ST) Vital Signs (last 24 hrs) Last Charted Minimum Maximum Temp(?F) 97.9 (FEB 08 15:53 PST) 97.4 (FEB 03:27 PST) 98.2 (B 08:16 PST) Heart Rate 72 (MAR 20 15:53 PST) L 57 (MAR 20 08:17 PST) 78 (MAR 19 23:19 PST) Resp Rate 18 (B 15:53 PST) 18 (B 08:16 PST) 19 (B 23:19 PST) SBP 136 (FEB 08 20:00 PST) 119 (FEB 08 15:53 PST) H 143 (FEB 08 03:27 PST) DBP H 101 (FEB 08 20:00 PST) 60 (FEB 08 08:17 PST) H 101 (FEB 20:00 PST) SpO2 96 (FEB 08 20:10 PST) 96 (FEB 08 20:10 PST) 100 (FEB 08 07:46 PST) OXYFIO2 100 (FEB 20:00 PST) 100 (FEB 20:00 PST) 100 (FEB 20:00 PST) OXYFLOW 6 (B 20:10 PST) 2 (FEB 21:35 PST) 15 (FEB 08 20:00 PST) OXYDELIVERY Nasal cannula Nasal Nasal (MAR 20 20:00 PST) (MAR 19 21:35 PST) (MAR 19 21:35 PST) , Measurements 03/20/2022 09:25 PST Weight (kg) 89.7 kg Weight measured method Bed scale . comfortable dancing jovial abd soft neuro nonfocal Review / Management Laboratory Results Labs (Last four charted values) WBC H 11.80 (MAR 08) 8.90 (MAR 20) 10.60 (FEB 07) H 11.70 (FEB 06) Hgb L 9.3 (FEB 08) L 8.8 (FEB 08) L 8.8 (FEB 07) L 9.2 (FEB 06) Hct L 28.4 (FEB 08) L 26.5 (FEB 08) L 26.4 (FEB 07) L 27.9 (FEB 06) Plt H 474 (FEB 08) H 446 (FEB 08) H 436 (FEB 07) 399 (FEB 06) Na 136 (FEB 08) 139 (FEB 08) 138 (FEB 07) 138 (FEB 06) K 4.5 (FEB 08) 4.6 (FEB 08) 3.9 (FEB 07) 4.6 (FEB 06) CO2 30 (FEB 08) 32 (FEB 08) 32 (FEB 07) 31 (FEB 06) Cl L 98 (FEB 08) 102 (FEB 08) 103 (FEB 07) 102 (FEB 06) Cr 0.9 (FEB 08) 1.0 (FEB 08) 0.7 (FEB 07) 0.8 (FEB 06) BUN 10 (FEB 08) 8 (FEB 08) 8 (FEB 07) 10 (FEB 06) Glucose Random H 151 (FEB 08) H 129 (FEB 08) H 135 (FEB 07) H 123 (FEB 06) Mg 1.9 (FEB 08) 2.0 (FEB 08) L 1.6 (FEB 07) L 1.7 (B 06) Phos 3.6 (FEB 08) 3.6 (FEB 07) 3.6 (FEB 06) 3.7 (FEB 05) Ca L 8.3 (B 08) L 8.4 (B 08) L 8.1 (B 07) L 8.1 (MAR 06) PT H 14.7 (MAR 08) H 14.8 (MAR 07) 14.2 (MAR 04) INR H 1.2 (MAR 08) H 1.2 (MAR 07) H 1.2 (MAR 04) PTT H 37.9 (MAR 08) L 21.3 (MAR 05) H 37.5 (MAR 05) 35.6 (MAR 17) DIAGNOSTIC DATA: 03/10/22: Blood culture 2/2 sets, Staphylococcus aureus, enterococcus fecalis, Citrobacter koseri. Cirtobacter koseri 03/10/22: Blood culture 2/2 sets Citrobacter koseri, Enterococcus, S. aureus: blood culture biofire enterobacteriacae, staph aureus. e faecalis 03/12/22: Blood culture 1/2 sets in progress gpc clusters: S aureus 03/13/22: Blood culture 2/2 sets in progress 03/15/22: Blood culture 2/2 sets in progress 03/10 urine culture: Greater than 100,000 colony-forming units and gram-negative vanesa. 03/10 UA: 46 WBCs, 15 RBCs. 03/04/22: MRSA screen negative. 03/06 MRI brain without contrast: Poor study. Echocardiogram 03/05/22: A bubble study not completed due to lack of cooperation, due to quality EF 55-60. No thrombus. No pericardial effusion. 03/04 CTA head and neck. No hemodynamically significant stenosis. 03/04/22 CT brain: Atrophy, no hemorrhage. 03/11/22: urine culture:>100,000 cfu/ml Klebsiella oxytoca <10,000 cfu/ml Citrobacter koseri 03/05/22: TTE Summary Technically limited study, poor acoustic windows. Due to the quality of the echocardiogram bubble study not completed. Ejection fraction is visually estimated at 55-60%. No obvious evidence of cardiac source thrombus. Mild left atrial enlargement. Right ventricle is not well visualized. Right atrium is not well visualized. Moderate to severe aortic insufficiency. Thickened mitral valve leaflets with reduced excursion. Tricuspid valve was not well visualized. Insufficient tricuspid regurgitation jet to calculate RVSP. Mild pulmonic regurgitation. Normal size aortic root. Normal size of IVC with normal inspiratory collapse. There is no evidence of pericardial effusion. 03/04/22 CTA head and neck; No evidence of hemodynamically significant stenosis in the neck. No dissection or occlusion Inflammatory changes surrounding the distal left common carotid and carotid bulb suggest prior endarterectomy. No evidence of hemodynamically significant stenosis in the head. No aneurysm or occlusion. No evidence of vascular mass. 03/04/22: ct brain Impression: Atrophy. No acute hemorrhage. Anti-Infective Medications Ordered Medications ceFAZolin, 2 gm = 1 Vial, IVPB, [id number], Indication= Bloodstream Infection, Routine, INJ, 03/19/22 20:00:00 PST, 4 Week(s), Stop date 04/16/22 19:59:00 PST, 200 mL/hr, 30 min Completed Medications ampicillin-sulbactam, 3 gm = 1 Vial, IVPB, [id number], Indication= Bacteremia / Fungemia, INJ, 03/11/22 18:00:00 PST, 7 Day(s), Stop date 03/18/22 23:59:00 PST, 200 mL/hr, 30 min vancomycin, 2,000 mg, IVPB, ONCE, Indication= Bloodstream Infection, IV SOLN, 03/11/22 4:00:00 PST, Stop date 03/11/22 4:00:00 PST, 250 mL/hr, 120 min Discontinued Medications ceFAZolin, 2 gm = 1 Vial, IVPB, Q8H, Indication= Bloodstream Infection, NOW, INJ, 03/19/22 9:52:00 PST, 4 Week(s), Stop date 04/16/22 9:51:00 PST, 200 mL/hr, 30 min cefTRIAXone, 1 gm, IVPB, Q24H, Indication= Sepsis, INJ, 03/10/22 12:52:00 PST vancomycin, 1,000 mg, IVPB, [id number], Indication= Bloodstream Infection, IV SOLN, 03/11/22 22:00:00 PST Impression and Plan Polymicrobial bacteremia, suspect MSSA bacteremia was present on admission and other organisms are secondary to Blankenship catheter.03/05 TTE neg. No evidence of hematogenous seeding. Ancef 2 g iv q 8 03/19/22 hours for 4 weeks 03/13-04/10/22. COPD exacerbation status post methylprednisolone. Diabetes mellitus, A1c 6.1, new diagnosis. Dyslipidemia. Atrial fibrillation. Stroke, status post tPA 03/04. Atrial fibrillation with RVR. Carotid artery disease, status post left carotid endarterectomy 02/21/2022. MLC 03/19/22 Ancef 03/13-04/10/22. Face to face time 15 minutes. Total time spent 50 minutes. Family updated. [id number] Male 03/21/2022 [facility] Critical Care Progress Note Patient: SHERRON SURESH Age: 76 years Legal Sex: MALE : 1945 ICU Day 1 Subjective ICU team responded to rapid response called and patient was transferred to ICU for further management Patient was reported to have seizure-like movement, altered mental status, unresponsive Hospital Course 76-year-old male was initially admitted to ICU on 03/04/2022 for altered mental status prior to arrival to the ED. He had a history of TIAs, status post endarterectomy on left side on 02/21/2022 He presented with altered mental status and dysarthria, confusion. On arrival he was able to move all extremities. However he was read as CVA and was administered tPA after admission. His CT angiogram head and neck was negative for any large vessel occlusion. He was seen by neuro, Dr. Cagle on 03/05/2022, noted to have bacterial baseline, no focal neurological deficit. He was recommended permissive hypertension and supportive management including physical therapy. He had hematuria post tPA which improved. Also received amiodarone drip for rapid A-fib during ICU stay. He also had ICU delirium before being transferred to medical floor. He also had MSSA bacteremia on admission, was followed by ID. MRI of the head 03/06/2022, was also negative. Today at around 730 he became altered, suspected seizure-like movement, extension of both arms, not able to follow commands. After being transferred to ICU he was arousable, follows basic commands, moving all extremities. Chest x-ray showed pulmonary venous congestion, bilateral edema feet. He was able to protect his airways, SPO2 stable, blood pressure stable, A-fib with RVR, heart rate around 120/min Plan to continue observation without intubation at this time He has past medical history of COPD, hypertension, prior strokes, recent A-fib, diabetes mellitus. Objective Vitals and Measurements T: 97.9 F HR: 62(Apical) HR: 72 RR: 18 BP: 119/62 SpO2: 100% O2 Delivery: Nasal cannula O2 Flow: 5L/min HT: 180.34 cm WT: 89.7 kg BMI: 26.2 kg/m2 Vital Signs (last 24 hrs) Last Charted Minimum Maximum Temp(?F) 97.9 (MAR 20 15:53 PST) 97.4 (MAR 20 03:27 PST) 98.2 (MAR 20 08:16 PST) Heart Rate 72 (MAR 20 15:53 PST) L 57 (MAR 20 08:17 PST) 78 (MAR 19 23:19 PST) Resp Rate 18 (MAR 20 15:53 PST) 18 (MAR 20 08:16 PST) 19 (MAR 19 23:19 PST) SBP 119 (MAR 20 15:53 PST) 119 (MAR 20 15:53 PST) H 143 (MAR 20 03:27 PST) DBP 62 (MAR 20 15:53 PST) 60 (MAR 20 08:17 PST) 72 (MAR 20 03:27 PST) SpO2 100 (MAR 20 15:53 PST) 98 (MAR 19 23:19 PST) 100 (MAR 20 07:46 PST) Daily Weights 89.7 kg (03/20/22 09:25 PST) 96.5 kg (03/17/22 08:38 PST) 96.5 kg (03/17/22 04:34 PST) Intake and Output Intake and Output as of 19:52 (24 hour periods starting at 06:00) 03/20/22 03/19/22 03/18/22 Intake mL 607 047 9019 Output mL 2900 6900 3750 Fluid Balance -6241 -7468 -2018 Physical Exam General Appearance: No acute distress. awake, communicative HEENT: NCAT. Normal oropharynx. Neck supple without lymphadenopathy. Cardiac: Normal sinus rhythm. No murmurs. Lungs: Diminished bilaterally to auscultation, few crackles at the bases. Abdomen: Soft, non-distended, non-tender. Neurological: Grossly intact, limited neuro exam Skin: No rash present. Assessment/Plan _ Altered mental status (Altered mental status, [id number]) Altered mental status (Altered mental status, unspecified, R41.82) Atrial fibrillation with rapid ventricular response (Unspecified atrial fibrillation, I48.91) Stroke (Cerebral infarction, unspecified, I63.9) TIA/acute encephalopathy/seizure -patient was transiently altered with involuntary extension like movement of both upper extremities No tonic-clonic movement reported After being transferred to ICU patient regained consciousness, no desaturation, no need for vasopressors CT scan chest 03/20/2022, done around 7 PM was unremarkable for any acute events Plan to continue observation Patient may need MRI after stabilization -Atrial fibrillation with RVR -plan to continue oral anticoagulation and heart rate control with beta-blockers - COPD -patient's oxygenation appears to be stable at this time we will avoid beta agonist due to association of atrial fibrillation with RVR -Hypertension -plan to monitor blood pressure closely, continue beta-avis and JACINDA inhibitors for now Plan to titrate antiepileptic medications as needed Plan to allow permissive hypertension for now - DVT prophylaxis - GI prophylaxis - Full code - No evidence of sepsis -Cumulative time spent in management of patient is over 45 minutes excluding procedures. Time includes examining patient, reviewing records including labs, reviewing radiology examinations and evaluating treatment options, discussing with consultants and monitoring for potential decompensation. Upon my evaluation patient has high degree of imminent or life-threatening deterioration due to present condition. This dictation was transcribed using [employer] voice recognition technology and may include unintended recognition errors in the text. Allergies NKA Inpatient Medications acetaminophen, 650 mg, 2 ea, ORAL, Q6H, PRN Ancef, 2 gm, 1 Vial, IVPB, S8D-Tsfskrit atorvastatin, 80 mg, 2 Tab, ORAL, QBedtime cholecalciferol, 25 mcg, 1 Tab, ORAL, DAILY Dextrose 50% Inj 50 mL, 25 mL, IV, As directed, PRN Dextrose 50% Inj 50 mL, 50 mL, IV, As directed, PRN digoxin, 0.125 mg, 1 Tab, ORAL, DAILY Eliquis, 5 mg, 1 Tab, ORAL, BID furosemide, 20 mg, 1 Tab, ORAL, DAILY glucagon, 1 mg, SUBQ, As directed, PRN glucose 40% oral gel, 15 gm, 37.5 mL, ORAL, As directed, PRN insulin lispro Correction Scale Med (Body wt 70-100kg), correction scale, SUBQ, Q6H Lasix, 20 mg, 2 mL, IV PUSH, ONCE lisinopril, 10 mg, 1 Tab, ORAL, DAILY metoprolol, 25 mg, 1 Tab, ORAL, BID metoprolol IV, 5 mg, 5 mL, IV PUSH, Q6H, PRN Narcan, 0.2 mg, 0.5 mL, IV PUSH, As directed, PRN Normal Saline 0.9% 500 mL, 500 mL, IV Pharmacy Communication, No Anticoag/antithrombotic/antiplat elet, N/A, As directed Pharmacy Communication, As Directed, N/A, As directed Pharmacy Consult, Pharmacotherapy Review, N/A, As directed Protonix, 40 mg, 1 Tab, ORAL, ACBkfst tamsulosin, 0.4 mg, 1 Cap, ORAL, QBedtime traMADol, 50 mg, 1 Tab, ORAL, Q6H, PRN Xopenex, 1.25 mg, 3 mL, INH, Q4H, PRN Lines/Tubes/Airways Urinary Catheter Indwelling/Continuous Urethral Not present on admit (03/14/22 10:20) Lab Results (Last three charted values) WBC H 11.80 (MAR 20) 8.90 (MAR 20) 10.60 (MAR 19) Hgb L 9.3 (MAR 20) L 8.8 (MAR 20) L 8.8 (MAR 19) Hct L 28.4 (MAR 20) L 26.5 (MAR 20) L 26.4 (MAR 19) Plt H 474 (MAR 20) H 446 (MAR 20) H 436 (MAR 19) Na 136 (MAR 20) 139 (MAR 20) 138 (MAR 19) K 4.5 (MAR 20) 4.6 (MAR 20) 3.9 (MAR 19) CO2 30 (MAR 20) 32 (MAR 20) 32 (MAR 19) Cl L 98 (MAR 20) 102 (MAR 20) 103 (MAR 19) Cr 0.9 (MAR 20) 1.0 (MAR 20) 0.7 (MAR 19) BUN 10 (MAR 20) 8 (MAR 20) 8 (MAR 19) Glu Rndm H 151 (MAR 20) H 129 (MAR 08) H 135 (MAR 19) Mg 2.0 (MAR 20) L 1.6 (MAR 19) L 1.7 (MAR 18) Phos 3.6 (MAR 20) 3.6 (MAR 19) 3.6 (MAR 06) Ca L 8.3 (MAR 20) L 8.4 (MAR 08) L 8.1 (MAR 19) PT H 14.7 (MAR 20) H 14.8 (MAR 07) 14.2 (MAR 04) INR H 1.2 (MAR 20) H 1.2 (MAR 07) H 1.2 (MAR 04) PTT H 37.9 (MAR 20) L 21.3 (MAR 17) H 37.5 (MAR 17) Culture Results Culture MRSA Screen Final - March 06 2022 08:17:11 PST No MRSA (Methicillin Resistant Staph Aureus) [place] [address] [employer]: Demond Mccoy MD Cult Blood Final - March 13 2022 11:23:54 PST Citrobacter koseri Staphylococcus aureus Enterococcus faecalis In 2 of 2 sets drawn [place] [address] [employer]orer: Demond Mccoy MD Final - March 13 2022 11:25:51 PST Citrobacter koseri Staphylococcus aureus Enterococcus faecalis Please refer to accession #[id number] for sensitivities. In 2 of 2 sets drawn [place] [address] [employer]orer: Demond Mccoy MD Culture Urine Final - March 14 2022 06:28:27 PST >100,000 cfu/ml Klebsiella oxytoca <10,000 cfu/ml Citrobacter koseri [place] [address] [employer]orer: Demond Mccoy MD Cult Blood Final - March 17 2022 14:02:02 PST No growth at 5 days. Final - March 16 2022 08:10:37 PST Staphylococcus [place] [address] [employer]: Demond Mccoy MD Final - March 19 2022 06:01:34 PST No growth at 5 days. No growth at 5 days. Final - March 20 2022 14:01:57 PST No growth at 5 days. Final - March 20 2022 14:01:58 PST No growth at 5 days. Diagnostic Results General Diagnostic Result Type: Chest 1 Vw Result Date: March 15, 2022 02:16 PST Reason For Exam: Shortness of Breath, Dyspnea, Hypoxia REPORT: Clinical HistorysobComparison:XR CHEST on 03/10/2022, 2 images.Technique: 2 frontal views of the chestWithout ContrastSHERRON SURESH, [id number] FINDINGS: Trachea is midline. Heart is enlarged, cardiomediastinal silhouette unremarkable.There is hazy patchy airspace consolidation involving right mid and lower lung primarily, less so left lower lung with some associated subsegmental atelectasis. There is no definite pulmonary vascular congestion, no evidence of pneumothorax. Small pleural effusions cannot be excluded based on this study.Osseous structures do not suggest acute pathology. There are degenerative changes in the spine. IMPRESSION: 1. Mild cardiac enlargement2. Hazy patchy airspace consolidation right mid and lower lung, less so left lower lung with some associated subsegmental atelectasis, cannot exclude multifocal pneumonia.This report was electronically signed by Lucas Frank MD on 03/15/2022 3:19:29 AM. Result Type: Chest 1 Vw Portable Result Date: March 10, 2022 06:28 PST Reason For Exam: Congestion REPORT: EXAM: Chest 1 Vw PortableCLINICAL INDICATION: Chest pain COMPARISON: 03/09/2022 TECHNIQUE: Single portable frontal view of the chest. FINDINGS: Normal cardiomediastinal silhouette. No mediastinal or hilar abnormality. Central airway is patent. Lungs are clear. No pleural effusion or pneumothorax. No acute abnormality of the bony thorax. IMPRESSION: 1. No acute abnormality. Signed by: Chapo Lowery on 03/10/2022 6:51 AM Computerized Tomography Result Type: CT Brain WO Contrast Result Date: March 20, 2022 18:59 PST Reason For Exam: CVA REPORT: Clinical Historyaltered mental status cvaComparison:CT HEAD on 03/05/2022, 230 images.Technique: All CT scans at this medical facility are performed using dose modulation techniques as appropriate to a performed exam including the following: Automated exposure control was utilized; adjustment of the mA and/or kV according to patient size; and use of iterative reconstruction technique.All CT studies are reported to the Dose Index Registry of the [employer]. Without ContrastRadiation Dose: CTDI (mGy): 52.11; DLP (mGy-cm): 1032.36GLSHERRON CURTIS, [id number] FINDINGS: Cerebral ventricles are symmetric in morphology. There is no extra-axial collection, midline shift or intracranial hemorrhage . Basal cisterns are not effaced.Visual segments of the orbits are unremarkable. Paranasal sinuses and mastoids are well pneumatized. There is no depressed skull fracture. IMPRESSION: Negative for an acute intracranial process by noncontrast CT. Should symptoms persist MRI follow-up is recommended for more sensitive evaluation.This report was electronically signed by Ari Willard MD on 03/20/2022 7:14:35 PM.The above findings were reported to Nurse Gary Park The call was initiated at 03/20/2022 7:15:08 PM. Magnetic Resonance Imaging Result Type: MRI Brain WO Contrast Result Date: March 06, 2022 13:20 PST Reason For Exam: Stroke/TIA;Stroke/TIA REPORT: EXAMINATION: MRI Brain WO ContrastCLINICAL HISTORY: Unspecified neurologic symptoms and suspected stroke.COMPARISONS: CT brain and CTA head from the previous day.TECHNIQUE:Multiplanar/multis equence noncontrast MR imaging of the brain was performed. Patient motion artifact severely degrades several of these sequences rendering some of them near nondiagnostic. FINDINGS: Evaluation of the posterior fossa demonstrate the fourth ventricle to be midline without mass impression. The seventh and eighth nerve complexes are grossly unremarkable.Evaluation of the supratentorial brain demonstrates the cortical sulci and ventricular system to be unremarkable for the patient's age. No restricted diffusion is seen. There is suspected mild nonspecific confluent periventricular T2/FLAIR signal abnormality likely related to small vessel ischemic disease in a patient of this age.There is no gross mass lesion or hemorrhage. There is no mass effect or midline shift. An extra-axial fluid collection is not identified. The cerebral vasculature demonstrates grossly normal flow-void.The globes and optic nerve complexes are symmetric with nonvisualization of the lenses, likely postsurgical. There is mild chronic mucosal thickening throughout the right maxillary sinus, right frontal sinus and bilateral posterior ethmoid air cells. IMPRESSION: Markedly limited study due to motion with no acute infarct. Short-term follow-up with a repeat study when the patient can better tolerate it may be of benefit. Signed by: Sandeep Montiel on 03/06/2022 1:46 PM [id number] Male 03/21/2022 [facility] Progress Note Patient: SHERRON SURESH Age: 76 years Legal Sex: Male : 1945 Author: MD Ashley, Thomas Barrett Assessment and Plan 76-year-old male patient was admitted on 03/04/2022 because of dysarthria. Patient has new onset atrial fibrillation. Patient had tenecteplase at that time. Code stroke was called today March 20, 2022 for similar symptoms. She has dysarthria. Patient able to move extremities. CT scan of br pending. Patient is in atrial fibrillation with heart rate of 102 blood pressure 130s over 80s. Patient able to protect his airway. Continue neuro checks. Medications (23) Active Scheduled: (14) apixaban 5 mg Tab 5 mg 1 Tab, ORAL, BID atorvastatin 40 mg Tab 80 mg 2 Tab, ORAL, QBedtime ceFAZolin 2 gm 1 Vial, IVPB, M2U-Cckmosri cholecalciferol (D3) 25 mcg (1,000 IU) Tab 25 mcg 1 Tab, ORAL, DAILY digoxin 0.125 mg Tab 0.125 mg 1 Tab, ORAL, DAILY furosemide 20 mg Tab 20 mg 1 Tab, ORAL, DAILY insulin lispro (Admelog) 100 units/mL, 3 mL MDV correction scale, SUBQ, Q6H lisinopril 10 mg Tab 10 mg 1 Tab, ORAL, DAILY metoprolol tartrate 25 mg Tab 25 mg 1 Tab, ORAL, BID pantoprazole 40 mg EC Tab 40 mg 1 Tab, ORAL, ACBkfst Pharmacy Communication No Anticoag/antithrombotic/antiplat elet, N/A, As directed Pharmacy Communication As Directed, N/A, As directed Pharmacy Consult Pharmacotherapy Review, N/A, As directed tamsulosin 0.4 mg Cap 0.4 mg 1 Cap, ORAL, QBedtime Continuous: (0) PRN: (9) acetaminophen 325 mg Tab 650 mg 2 ea, ORAL, Q6H Dextrose 50% Inj 50 mL Syr 25 mL, IV, As directed Dextrose 50% Inj 50 mL Syr 50 mL, IV, As directed glucagon 1 mg Inj SDV 1 mg, SUBQ, As directed Glucose 40% Oral Gel 15 gm 15 gm 37.5 mL, ORAL, As directed levalbuterol 1.25 mg/3 mL Neb Amp 3 mL 1.25 mg 3 mL, INH, Q4H metoprolol tartrate 1 mg/mL Inj 5 mL 5 mg 5 mL, IV PUSH, Q6H nalOXone 0.4 mg/mL, 1 mL Inj 0.2 mg 0.5 mL, IV PUSH, As directed traMADol 50 mg Tab 50 mg 1 Tab, ORAL, Q6H CT; MPRESSION: Negative for an acute intracranial process by noncontrast CT. Should symptoms persist MRI follow-up is recommended for more sensitive evaluation. [id number] Male 03/21/2022 [facility] Hospitalist Progress Note Patient: SHERRON SURESH Age: 76 years Legal Sex: Male : 1945 Author: MD Sergio, Patricia Shetty Basic Information overnight no events feels weel seen w/ family, discussed pending bed at swing bed Health Status Current medications: Home Medications (16) Active aspirin 325 mg oral enteric coated tablet 1 Tab, ORAL, DAILY (Documented 12/10/13) atenolol 50 mg oral tablet 1 Tab, ORAL, DAILY (Documented 12/10/13) atenolol 50 mg oral tablet 50 mg = 1 Tab, ORAL, DAILY (Documented 12/11/13) atorvastatin 80 mg oral tablet 80 mg = 1 Tab, ORAL, DAILY (Documented 03/07/22) cholecalciferol 1000 intl units oral tablet 25 mcg = 1 Tab, ORAL, DAILY (Documented 03/07/22) clopidogrel 75 mg oral tablet 75 mg = 1 Tab, ORAL, DAILY (Documented 03/07/22) digoxin 125 mcg (0.125 mg) oral tablet 0.125 mg = 1 Tab, ORAL, DAILY (Documented 03/20/22) docusate-senna 50 mg-8.6 mg oral capsule (Documented 03/07/22) Eliquis 5 mg oral tablet 5 mg = 1 Tab, ORAL, BID (Documented 03/20/22) Fish Oil 1000 mg oral capsule 1 Cap, ORAL, DAILY (Documented 12/10/13) furosemide 20 mg oral tablet 20 mg = 1 Tab, ORAL, DAILY (Documented 03/07/22) lisinopril 10 mg oral tablet 10 mg = 1 Tab, ORAL, DAILY (Documented 03/20/22) metFORMIN 500 mg, ORAL, DAILY (Documented 03/07/22) metoprolol tartrate 25 mg oral tablet 25 mg = 1 Tab, ORAL, BID (Documented 03/20/22) tamsulosin 0.4 mg oral capsule 0.4 mg = 1 Cap, ORAL, QBedtime (Documented 03/07/22) traMADol 50 mg, PRN, ORAL, Q6H (Documented 03/20/22) , Active inpatient medications ACTIVE INPT MEDS: apixaban (Eliquis) 5 mg ORAL BID atorvastatin 80 mg ORAL QBedtime ceFAZolin (Ancef) 2 gm IVPB [id number] cholecalciferol 25 mcg ORAL DAILY digoxin 0.125 mg ORAL DAILY furosemide 20 mg ORAL DAILY insulin lispro (insulin lispro Correction Scale Med (Body wt 70-100kg)) SUBQ Q6H lisinopril 10 mg ORAL DAILY metoprolol 25 mg ORAL BID pantoprazole (Protonix) 40 mg ORAL ACBkfst Pharmacy Communication N/A As directed Pharmacy Communication N/A As directed Pharmacy Consult N/A As directed tamsulosin 0.4 mg ORAL QBedtime ACTIVE PRN MEDS: acetaminophen 650 mg ORAL Q6H glucagon 1 mg SUBQ As directed glucose (Dextrose 50% Inj 50 mL) 25 mL IV As directed glucose (Dextrose 50% Inj 50 mL) 50 mL IV As directed glucose (glucose 40% oral gel) 15 gm ORAL As directed levalbuterol (Xopenex) 1.25 mg INH Q4H metoprolol (metoprolol IV) 5 mg IV PUSH Q6H nalOXone (Narcan) 0.2 mg IV PUSH As directed traMADol 50 mg ORAL Q6H ONE TIME MEDS: (Completed) magnesium sulfate 2 gm IVPB ONCE ACTIVE IV MEDS: None Problem List: Problem List Active or Inactive Problems (4) Body mass index 30+ - obesity Elevated serum cholesterol High blood pressure TIA (transient ischemic attack) Physical Examination Intake and Output Intake and Output Fluid Balance Intake and Output as of 15:40 (24 hour periods starting at 06:00) 03/20/22 03/19/22 03/18/22 Intake mL 006 806 [id number] Output mL 1050 2260 1990 Fluid Balance -[phone] VS/Measurements: Inpt. Vital signs (ST) Vital Signs (last 24 hrs) Last Charted Minimum Maximum Temp(?F) 97.7 (MAR 20 11:17 PST) 97.4 (MAR 20 03:27 PST) 98.4 (MAR 19:25 PST) Heart Rate 78 (MAR 20 11:18 PST) L 57 (MAR 20 08:17 PST) 79 (MAR 19 19:26 PST) Resp Rate 18 (MAR 20 11:17 PST) 17 (MAR 19 19:26 PST) 19 (MAR 19 23:19 PST) SBP 138 (MAR 20 11:16 PST) 135 (MAR 19 23:19 PST) H 150 (MAR 19 19:25 PST) DBP 70 (MAR 20 11:16 PST) L 54 (MAR 19 19:25 PST) 72 (MAR 20 03:27 PST) SpO2 99 (MAR 20 11:18 PST) 97 (MAR 19 19:26 PST) 100 (MAR 20 07:46 PST) OXYFLOW 5 (MAR 20 11:17 PST) 2 (MAR 19 19:26 PST) 5 (MAR 20 11:17 PST) OXYDELIVERY Nasal cannula Nasal Nasal (MAR 20 11:17 PST) (MAR 19 19:26 PST) (MAR 19:26 PST) , Measurements 03/20/2022 09:25 PST Weight (kg) 89.7 kg Weight measured method Bed scale . General: alert, Not in distress HEENT: normocephalic Eyes: normal conjunctiva, EOMI Cardiac: normal rate, rhythm, no rubs, murmurs or gallops Chest: Normal resp effort, diminished breath sounds b/l, no wheezing or crackles Abdomen: non tender, non distended, bowel sounds present Neuro: Alert and oriented, awake, answering questions Review / Management Results review: Lab results 03/20/2022 05:28 PST White Blood Cell Count 8.90 K/mm3 Normal Red Blood Cell Count 2.91 M/mm3 LOW Hemoglobin 8.8 gm/dL LOW Hematocrit 26.5 % LOW Mean Cell Volume 91.2 fL Normal Mean Cell Hemoglobin 30.3 pg Normal Mean Cell Hgb Concentration 33.2 gm/dL Normal RBC Distribution Width 14.6 % HI Platelet Count 446 K/mm3 HI Mean Platelet Volume 8.8 fL Normal Auto Neutrophil Percent 73.4 % Normal Auto Lymphocyte Percent 15.2 % Normal Auto Monocyte Percent 9.8 % Normal Auto Eosinophil Percent 0.9 % Normal Auto Basophil Percent 0.7 % Normal Auto Neutrophil Absolute 6.5 K/mm3 Normal Auto Lymphocyte Absolute 1.4 K/mm3 Normal Auto Monocyte Absolute 0.9 K/mm3 Normal Auto Eosinophil Absolute 0.1 K/mm3 Normal Auto Basophil Absolute 0.1 K/mm3 Normal Sodium Level 139 mmol/L Normal Potassium Level 4.6 mmol/L Normal Chloride Level 102 mmol/L Normal Carbon Dioxide 32 mmol/L Normal Anion Gap Calculated 5 mmol/L Normal Glucose Random 129 mg/dL HI Blood Urea Nitrogen 8 mg/dL Normal Creatinine 1.0 mg/dL Normal eGFR 79 mL/min/1.73m2 NA BUN/Creatinine Ratio Calculated 8 LOW Osmolality, Calculated 278 mOsm/L Normal Calcium Level 8.4 mg/dL LOW Magnesium Level 2.0 mg/dL Normal Phosphorus Level 3.6 mg/dL Normal Protein Total 5.7 gm/dL LOW Albumin Level 2.4 gm/dL LOW Globulin Level 3.3 gm/dL Normal Albumin/Globulin Ratio Calculated 0.7 LOW Bilirubin, Direct 0.2 mg/dL Normal Bilirubin, Total 0.7 mg/dL Normal Bilirubin, Indirect (Calc) 0.5 mg/dL NA Alkaline Phosphatase 77 IntUnit/L Normal Alanine Aminotransferase (SGPT) 35 IntUnit/L Normal Aspartate Aminotransferase (SGOT) 18 IntUnit/L Normal 03/19/2022 05:12 PST White Blood Cell Count 10.60 K/mm3 Normal Red Blood Cell Count 2.93 M/mm3 LOW Hemoglobin 8.8 gm/dL LOW Hematocrit 26.4 % LOW Mean Cell Volume 90.1 fL Normal Mean Cell Hemoglobin 30.0 pg Normal Mean Cell Hgb Concentration 33.3 gm/dL Normal RBC Distribution Width 14.4 % Normal Platelet Count 436 K/mm3 HI Mean Platelet Volume 9.4 fL Normal Auto Neutrophil Percent 77.1 % Normal Auto Lymphocyte Percent 12.1 % Normal Auto Monocyte Percent 8.9 % Normal Auto Eosinophil Percent 1.0 % Normal Auto Basophil Percent 0.9 % Normal Auto Neutrophil Absolute 8.1 K/mm3 HI Auto Lymphocyte Absolute 1.3 K/mm3 Normal Auto Monocyte Absolute 0.9 K/mm3 Normal Auto Eosinophil Absolute 0.1 K/mm3 Normal Auto Basophil Absolute 0.1 K/mm3 Normal Auto NRBC % 0.1 % NA Sodium Level 138 mmol/L Normal Potassium Level 3.9 mmol/L Normal Chloride Level 103 mmol/L Normal Carbon Dioxide 32 mmol/L Normal Anion Gap Calculated 3 mmol/L LOW Glucose Random 135 mg/dL HI Blood Urea Nitrogen 8 mg/dL Normal Creatinine 0.7 mg/dL Normal eGFR >90 mL/min/1.73m2 NA BUN/Creatinine Ratio Calculated 11 LOW Osmolality, Calculated 276 mOsm/L Normal Calcium Level 8.1 mg/dL LOW Magnesium Level 1.6 mg/dL LOW Phosphorus Level 3.6 mg/dL Normal Protein Total 5.5 gm/dL LOW Albumin Level 2.3 gm/dL LOW Globulin Level 3.2 gm/dL Normal Albumin/Globulin Ratio Calculated 0.7 LOW Bilirubin, Direct 0.2 mg/dL Normal Bilirubin, Total 0.6 mg/dL Normal Bilirubin, Indirect (Calc) 0.4 mg/dL NA Alkaline Phosphatase 75 IntUnit/L Normal Alanine Aminotransferase (SGPT) 50 IntUnit/L Normal Aspartate Aminotransferase (SGOT) 24 IntUnit/L Normal . Laboratory Results Labs (Last four charted values) WBC 8.90 (MAR 20) 10.60 (MAR 19) H 11.70 (MAR 18) H 11.60 (MAR 17) Hgb L 8.8 (MAR 20) L 8.8 (MAR 19) L 9.2 (MAR 18) L 9.2 (MAR 17) Hct L 26.5 (MAR 20) L 26.4 (MAR 19) L 27.9 (MAR 18) L 27.5 (MAR 17) Plt H 446 (MAR 20) H 436 (MAR 19) 399 (MAR 18) 322 (MAR 17) Na 139 (MAR 20) 138 (MAR 19) 138 (MAR 18) 138 (MAR 17) K 4.6 (MAR 20) 3.9 (MAR 19) 4.6 (MAR 18) 4.4 (MAR 17) CO2 32 (MAR 20) 32 (MAR 19) 31 (MAR 18) 29 (MAR 05) Cl 102 (MAR 20) 103 (MAR 07) 102 (MAR 18) 102 (MAR 05) Cr 1.0 (MAR 20) 0.7 (MAR 19) 0.8 (MAR 18) 0.5 (MAR 17) BUN 8 (MAR 20) 8 (MAR 19) 10 (MAR 18) 9 (MAR 17) Glucose Random H 129 (MAR 20) H 135 (MAR 19) H 123 (MAR 18) H 125 (MAR 17) Mg 2.0 (MAR 20) L 1.6 (MAR 19) L 1.7 (MAR 18) L 1.7 (MAR 17) Phos 3.6 (MAR 20) 3.6 (MAR 19) 3.6 (MAR 18) 3.7 (MAR 17) Ca L 8.4 (MAR 20) L 8.1 (MAR 19) L 8.1 (MAR 18) L 8.1 (MAR 17) PT H 14.8 (MAR 07) 14.2 (MAR 04) INR H 1.2 (MAR 07) H 1.2 (MAR 04) PTT L 21.3 (MAR 17) H 37.5 (MAR 17) 35.6 (MAR 17) 34.2 (MAR 17) Cultures Results: Culture Results Culture MRSA Screen Final - March 06 2022 08:17:11 PST No MRSA (Methicillin Resistant Staph Aureus) [place] [address] [employer] [facility] [employer]orer: Demond Mccoy MD Cult Blood Final - March 13 2022 11:23:54 PST Citrobacter koseri Staphylococcus aureus Enterococcus faecalis In 2 of 2 sets drawn [place] [address] [employer] [facility] Laborer: Demond Mccoy MD Final - March 13 2022 11:25:51 PST Citrobacter koseri Staphylococcus aureus Enterococcus faecalis Please refer to accession #[id number] for sensitivities. In 2 of 2 sets drawn [place] [address] [employer] [facility] Laborer: Demond Mccoy MD Culture Urine Final - March 14 2022 06:28:27 PST >100,000 cfu/ml Klebsiella oxytoca <10,000 cfu/ml Citrobacter [place]oseri [place] [address] [employer] [facility] Laborer: Demond Mccoy MD Cult Blood Final - March 17 2022 14:02:02 PST No growth at 5 days. Final - March 16 2022 08:10:37 PST Staphylococcus aureus Performed at [address] [address] [employer] [facility] Laborer: Demond Mccoy MD Final - March 19 2022 06:01:34 PST No growth at 5 days. No growth at 5 days. Final - March 20 2022 14:01:57 PST No growth at 5 days. Final - March 20 2022 14:01:58 PST No growth at 5 days. . Impression and Plan Diagnosis: Active Diagnoses Stroke (Cerebral infarction, unspecified) Atrial fibrillation with rapid ventricular response (Unspecified atrial fibrillation) Altered mental status (Altered mental status, unspecified) . Diagnosis: Active Diagnoses Stroke (Cerebral infarction, unspecified) Atrial fibrillation with rapid ventricular response (Unspecified atrial fibrillation) Altered mental status (Altered mental status, unspecified) . Diagnosis: Active Diagnoses Stroke (Cerebral infarction, unspecified) Atrial fibrillation with rapid ventricular response (Unspecified atrial fibrillation) Altered mental status (Altered mental status, unspecified) . Diagnosis: Active Diagnoses Stroke (Cerebral infarction, unspecified) Atrial fibrillation with rapid ventricular response (Unspecified atrial fibrillation) Altered mental status (Altered mental status, unspecified) . Diagnosis: Active Diagnoses Stroke (Cerebral infarction, unspecified) Atrial fibrillation with rapid ventricular response (Unspecified atrial fibrillation) Altered mental status (Altered mental status, unspecified) . concern for CVA - s/p tpa - MRI was negative, CTA with no LVO - TTE with no thrombus reported( PFO not done) - cont statin, not on antiplatelet agents, discussed with neurology Dr Cagle, the main concern was for cardioembolic process and eliquis is enough, no need to add antiplatelets - PT Afib with RVR - continue digoxin and metoprolol - cont eliquis MSSA bacteremia, Enterococcus and Citrobacter bacteremia - ID following - ID recs: Unasyn thru 03/18. ancef 2 g iv q 8 03/19/22 hours for 4 weeks 03/13-04/10/22. - will likely need to go to a facility for antibiotics as he lives with elderly - TTE did now show endocarditis but did have some MV thickening - blood culture cleared 03/13 Urinary retention Hematuria - resolved BPH - continue blankenship catheter needs outpatient urology eval - per RN report patient was trialed off Blankenship and was retaining, it had to be placed back - no more hematuria, hgb stable - cont flomax COPD - was on steroids earlier in hospitalization - start PRN albuterol HTN - cont lisinopril ELOS: 1- 2 days,needs placement for completion of iv antibiotics - cm to follow [id number] Male 03/20/2022 [facility] Progress Note Patient: SHERRON SURESH Age: 76 years Legal Sex: Male : 1945 Author: DO Fernandez Mina Basic Information Time Seen: Date and Time seen:: 03/19/2022 21:06:00. no new joint issues. cxp sob. Review of Systems ROS reviewed as documented in chart Health Status Current medications: None, Active inpatient medications ACTIVE INPT MEDS: apixaban (Eliquis) 5 mg ORAL BID atorvastatin 80 mg ORAL QBedtime ceFAZolin (Ancef) 2 gm IVPB [id number] cholecalciferol 25 mcg ORAL DAILY digoxin 0.125 mg ORAL DAILY furosemide 20 mg ORAL DAILY insulin lispro (insulin lispro Correction Scale Med (Body wt 70-100kg)) SUBQ Q6H lisinopril 10 mg ORAL DAILY metoprolol 25 mg ORAL BID pantoprazole (Protonix) 40 mg ORAL ACBkfst Pharmacy Communication N/A As directed Pharmacy Communication N/A As directed Pharmacy Consult N/A As directed tamsulosin 0.4 mg ORAL QBedtime ACTIVE PRN MEDS: acetaminophen 650 mg ORAL Q6H glucagon 1 mg SUBQ As directed glucose (Dextrose 50% Inj 50 mL) 25 mL IV As directed glucose (Dextrose 50% Inj 50 mL) 50 mL IV As directed glucose (glucose 40% oral gel) 15 gm ORAL As directed levalbuterol (Xopenex) 1.25 mg INH Q4H metoprolol (metoprolol IV) 5 mg IV PUSH Q6H nalOXone (Narcan) 0.2 mg IV PUSH As directed traMADol 50 mg ORAL Q6H ONE TIME MEDS: (Completed) magnesium sulfate 2 gm IVPB ONCE ACTIVE IV MEDS: None Problem List: Problem List Active or Inactive Problems (4) Body mass index 30+ - obesity Elevated serum cholesterol High blood pressure TIA (transient ischemic attack) Physical Examination Intake and Output Intake and Output Fluid Balance Intake and Output as of 21:05 (24 hour periods starting at 06:00) 03/19/22 03/18/22 03/17/22 Intake mL 150 1108 2643 Output mL 5100 3750 4350 Fluid Balance -4731 -2656 -6819 VS/Measurements: Inpt. Vital signs (ST) Vital Signs (last 24 hrs) Last Charted Minimum Maximum Temp(?F) 98.4 (MAR 19 19:25 PST) 97.7 (MAR 18 23:41 PST) 98.4 (MAR 19 19:25 PST) Heart Rate 79 (MAR 19 19:26 PST) 78 (MAR 19 15:05 PST) H 109 (MAR 19 03:21 PST) Resp Rate 17 (MAR 19 19:26 PST) 15 (MAR 19 15:05 PST) H 21 (MAR 19 07:36 PST) SBP H 150 (MAR 19 19:25 PST) 129 (MAR 19 07:36 PST) H 170 (MAR 19 03:17 PST) DBP L 54 (MAR 19 19:25 PST) L 54 (MAR 19 19:25 PST) 82 (MAR 19 15:05 PST) SpO2 97 (MAR 19 19:26 PST) 93 (MAR 19 03:21 PST) 99 (MAR 19 15:05 PST) OXYFLOW 2 (MAR 19 19:26 PST) 2 (MAR 18 23:42 PST) 2 (MAR 18 23:42 PST) OXYDELIVERY Nasal cannula Nasal Nasal (MAR 19 19:26 PST) (MAR 18 23:42 PST) (MAR 18 23:42 PST) . nontoxic abd soft ext warm mlc ok Review / Management Laboratory Results Labs (Last four charted values) WBC 10.60 (MAR 07) H 11.70 (MAR 06) H 11.60 (MAR 05) H 11.80 (MAR 16) Hgb L 8.8 (FEB 07) L 9.2 (FEB 06) L 9.2 (FEB 05) L 9.4 (FEB 04) Hct L 26.4 (FEB 07) L 27.9 (FEB 06) L 27.5 (FEB 05) L 27.8 (FEB 04) Plt H 436 (FEB 07) 399 (FEB 06) 322 (FEB 05) 289 (FEB 04) Na 138 (FEB 07) 138 (FEB 06) 138 (FEB 05) 138 (FEB 04) K 3.9 (FEB 07) 4.6 (FEB 06) 4.4 (FEB 05) 4.1 (FEB 04) CO2 32 (B 07) 31 (B 06) 29 (B 05) 31 (B 04) Cl 103 (B 07) 102 (FEB 06) 102 (FEB 05) 102 (B 04) Cr 0.7 (B 07) 0.8 (B 06) 0.5 (B 05) 0.7 (B 04) BUN 8 (B 07) 10 (B 06) 9 (B 05) 10 (B 04) Glucose Random H 135 (B 07) H 123 (B 06) H 125 (B 05) H 125 (B 04) Mg L 1.6 (B 07) L 1.7 (FEB 06) L 1.7 (FEB 05) L 1.7 (FEB 04) Phos 3.6 (B 07) 3.6 (B 06) 3.7 (B 05) 3.0 (B 04) Ca L 8.1 (B 07) L 8.1 (FEB 06) L 8.1 (FEB 05) L 8.0 (FEB 04) PT H 14.8 (MAR 07) 14.2 (MAR 04) INR H 1.2 (MAR 07) H 1.2 (MAR 04) PTT L 21.3 (MAR 05) H 37.5 (FEB 05) 35.6 (FEB 05) 34.2 (FEB 05) DIAGNOSTIC DATA: 03/10/22: Blood culture 2/2 sets, Staphylococcus aureus, enterococcus fecalis, Citrobacter koseri. Cirtobacter koseri 03/10/22: Blood culture 2/2 sets Citrobacter koseri, Enterococcus, S. aureus: blood culture biofire enterobacteriacae, staph aureus. e faecalis 03/12/22: Blood culture 1/2 sets in progress gpc clusters: S aureus 03/13/22: Blood culture 2/2 sets in progress 03/15/22: Blood culture 2/2 sets in progress 03/10 urine culture: Greater than 100,000 colony-forming units and gram-negative vanesa. 03/10 UA: 46 WBCs, 15 RBCs. 03/04/22: MRSA screen negative. 03/06 MRI brain without contrast: Poor study. Echocardiogram 03/05/22: A bubble study not completed due to lack of cooperation, due to quality EF 55-60. No thrombus. No pericardial effusion. 03/04 CTA head and neck. No hemodynamically significant stenosis. 03/04/22 CT brain: Atrophy, no hemorrhage. 03/11/22: urine culture:>100,000 cfu/ml Klebsiella oxytoca <10,000 cfu/ml Citrobacter koseri 03/05/22: TTE Summary Technically limited study, poor acoustic windows. Due to the quality of the echocardiogram bubble study not completed. Ejection fraction is visually estimated at 55-60%. No obvious evidence of cardiac source thrombus. Mild left atrial enlargement. Right ventricle is not well visualized. Right atrium is not well visualized. Moderate to severe aortic insufficiency. Thickened mitral valve leaflets with reduced excursion. Tricuspid valve was not well visualized. Insufficient tricuspid regurgitation jet to calculate RVSP. Mild pulmonic regurgitation. Normal size aortic root. Normal size of IVC with normal inspiratory collapse. There is no evidence of pericardial effusion. 03/04/22 CTA head and neck; No evidence of hemodynamically significant stenosis in the neck. No dissection or occlusion Inflammatory changes surrounding the distal left common carotid and carotid bulb suggest prior endarterectomy. No evidence of hemodynamically significant stenosis in the head. No aneurysm or occlusion. No evidence of vascular mass. 03/04/22: ct brain Impression: Atrophy. No acute hemorrhage. Anti-Infective Medications Ordered Medications ceFAZolin, 2 gm = 1 Vial, IVPB, [id number], Indication= Bloodstream Infection, Routine, INJ, 03/19/22 20:00:00 PST, 4 Week(s), Stop date 04/16/22 19:59:00 PST, 200 mL/hr, 30 min Completed Medications ampicillin-sulbactam, 3 gm = 1 Vial, IVPB, [id number], Indication= Bacteremia / Fungemia, INJ, 03/11/22 18:00:00 PST, 7 Day(s), Stop date 03/18/22 23:59:00 PST, 200 mL/hr, 30 min vancomycin, 2,000 mg, IVPB, ONCE, Indication= Bloodstream Infection, IV SOLN, 03/11/22 4:00:00 PST, Stop date 03/11/22 4:00:00 PST, 250 mL/hr, 120 min Discontinued Medications ceFAZolin, 2 gm = 1 Vial, IVPB, Q8H, Indication= Bloodstream Infection, NOW, INJ, 03/19/22 9:52:00 PST, 4 Week(s), Stop date 04/16/22 9:51:00 PST, 200 mL/hr, 30 min cefTRIAXone, 1 gm, IVPB, Q24H, Indication= Sepsis, INJ, 03/10/22 12:52:00 PST vancomycin, 1,000 mg, IVPB, [id number], Indication= Bloodstream Infection, IV SOLN, 03/11/22 22:00:00 PST Cultures Results Impression and Plan Polymicrobial bacteremia, suspect MSSA bacteremia was present on admission and other organisms are secondary to Blankenship catheter.03/05 TTE neg. No evidence of hematogenous seeding. COPD exacerbation status post methylprednisolone. Diabetes mellitus, A1c 6.1, new diagnosis. Dyslipidemia. Atrial fibrillation. Stroke, status post tPA 03/04. Atrial fibrillation with RVR. Carotid artery disease, status post left carotid endarterectomy 02/21/2022. MLC 03/19/22 Ancef 2 g iv q 8 03/19/22 hours for 4 weeks 03/13-04/10/22. Face to face time 15 minutes. Total time spent 50 minutes. [id number] Male 03/20/2022 [facility] Progress Note Patient: SHERRON SURESH Age: 76 years Legal Sex: Male : 1945 Author: SABRINA Rodrigues, Stewart P Successful 20g x 8cm left upper arm cephalic vein BARD PowerGlide Pro Midline/extended dwell catheter Ref#[id number] Lot#[id number] Exp:02/09/2023 inserted using ultrasound guidance by Moy Rodrigues RN, [facility] on 1st attempt. Arm circumference 29cm. VO at 33%. Catheter secured with tegaderm, stat-lock, and guardiva patch. Dressing clean, dry, and intact. No bleeding or hematoma noted. Patient cooperated throughout procedure. Tolerated well. Midline ready for immediate use. [id number] Male 03/19/2022 [facility] Emergencyist Progress Note Patient: SHERRON SURESH Age: 76 years Legal Sex: Male : 1945 Author: MD Sergio, Patricia Shetty Basic Information overnight no events pt reports feeling fine seen w/ family, discussed swing bed vs home health, cm to follow up today Health Status Current medications: Home Medications (16) Active aspirin 325 mg oral enteric coated tablet 1 Tab, ORAL, DAILY (Documented 12/10/13) atenolol 50 mg oral tablet 1 Tab, ORAL, DAILY (Documented 12/10/13) atenolol 50 mg oral tablet 50 mg = 1 Tab, ORAL, DAILY (Documented 12/11/13) atorvastatin 40 mg oral tablet 1 Tab, ORAL, QBedtime (Documented 12/10/13) atorvastatin 80 mg oral tablet 80 mg = 1 Tab, ORAL, DAILY (Documented 03/07/22) cholecalciferol 1000 intl units oral tablet 25 mcg = 1 Tab, ORAL, DAILY (Documented 03/07/22) clopidogrel 75 mg oral tablet 75 mg = 1 Tab, ORAL, DAILY (Documented 03/07/22) docusate-senna 50 mg-8.6 mg oral capsule (Documented 03/07/22) Fish Oil 1000 mg oral capsule 1 Cap, ORAL, DAILY (Documented 12/10/13) furosemide 20 mg oral tablet 20 mg = 1 Tab, ORAL, DAILY (Documented 03/07/22) hydrochlorothiazide-lisinopril 12.5 mg-10 mg oral tablet 1 Tab, ORAL, DAILY (Documented 12/10/13) lisinopril 2.5 mg, ORAL, DAILY (Documented 03/07/22) metFORMIN 500 mg, ORAL, DAILY (Documented 03/07/22) metoprolol 25 mg, ORAL, DAILY (Documented 03/07/22) tamsulosin 0.4 mg oral capsule 0.4 mg = 1 Cap, ORAL, QBedtime (Documented 03/07/22) traMADol 50 mg oral tablet , PRN, Q6H (Documented 12/10/13) , Active inpatient medications ACTIVE INPT MEDS: apixaban (Eliquis) 5 mg ORAL BID atorvastatin 80 mg ORAL QBedtime cholecalciferol 25 mcg ORAL DAILY digoxin 0.125 mg ORAL DAILY furosemide 20 mg ORAL DAILY insulin lispro (insulin lispro Correction Scale Med (Body wt 70-100kg)) SUBQ Q6H lisinopril 10 mg ORAL DAILY metoprolol 25 mg ORAL BID pantoprazole (Protonix) 40 mg ORAL ACBkfst Pharmacy Communication N/A As directed Pharmacy Communication N/A As directed Pharmacy Consult N/A As directed tamsulosin 0.4 mg ORAL QBedtime ACTIVE PRN MEDS: acetaminophen 650 mg ORAL Q6H glucagon 1 mg SUBQ As directed glucose (Dextrose 50% Inj 50 mL) 25 mL IV As directed glucose (Dextrose 50% Inj 50 mL) 50 mL IV As directed glucose (glucose 40% oral gel) 15 gm ORAL As directed levalbuterol (Xopenex) 1.25 mg INH Q4H metoprolol (metoprolol IV) 5 mg IV PUSH Q6H nalOXone (Narcan) 0.2 mg IV PUSH As directed traMADol 50 mg ORAL Q6H ONE TIME MEDS: None ACTIVE IV MEDS: None Problem List: Problem List Active or Inactive Problems (4) Body mass index 30+ - obesity Elevated serum cholesterol High blood pressure TIA (transient ischemic attack) Physical Examination Intake and Output Intake and Output Fluid Balance Intake and Output as of 09:48 (24 hour periods starting at 06:00) 03/19/22 03/18/22 03/17/22 Intake mL 0 1108 2643 Output mL 0 3750 4350 Fluid Balance 0 -2642 -1707 VS/Measurements: Inpt. Vital signs (ST) Vital Signs (last 24 hrs) Last Charted Minimum Maximum Temp(?F) 98.3 (MAR 19 07:36 PST) 97.7 (MAR 18 23:41 PST) 99.1 (MAR 18 18:00 PST) Heart Rate 95 (MAR 19 08:38 PST) 79 (MAR 18 11:32 PST) H 109 (MAR 19 03:21 PST) Resp Rate H 21 (MAR 19 07:36 PST) 17 (MAR 18 19:26 PST) H 21 (MAR 19 07:36 PST) SBP 129 (MAR 19 07:36 PST) 126 (MAR 18 19:24 PST) H 170 (MAR 19 03:17 PST) DBP 70 (MAR 19 07:36 PST) 61 (MAR 18 19:24 PST) 78 (MAR 19 03:17 PST) SpO2 95 (MAR 19 07:36 PST) 93 (MAR 18 19:26 PST) 97 (MAR 18 23:42 PST) OXYFLOW 2 (MAR 19 07:36 PST) 2 (MAR 18 11:32 PST) 2 (MAR 18 11:32 PST) OXYDELIVERY Nasal cannula Nasal Nasal (MAR 19 07:36 PST) (MAR 18 11:32 PST) (MAR 18 11:32 PST) . General: alert, Not in distress HEENT: normocephalic Eyes: normal conjunctiva, EOMI Cardiac: normal rate, rhythm, no rubs, murmurs or gallops Chest: Normal resp effort, diminished breath sounds b/l, no wheezing or crackles Abdomen: non tender, non distended, bowel sounds present Neuro: Alert and oriented, awake, answering questions Review / Management Laboratory Results Labs (Last four charted values) WBC 10.60 (MAR 19) H 11.70 (MAR 18) H 11.60 (MAR 17) H 11.80 (MAR 16) Hgb L 8.8 (MAR 19) L 9.2 (MAR 18) L 9.2 (MAR 17) L 9.4 (MAR 16) Hct L 26.4 (MAR 19) L 27.9 (MAR 18) L 27.5 (MAR 17) L 27.8 (MAR 04) Plt H 436 (MAR 19) 399 (MAR 18) 322 (MAR 17) 289 (MAR 16) Na 138 (MAR 19) 138 (MAR 18) 138 (MAR 17) 138 (MAR 16) K 3.9 (MAR 19) 4.6 (MAR 18) 4.4 (MAR 17) 4.1 (MAR 16) CO2 32 (MAR 19) 31 (MAR 18) 29 (MAR 17) 31 (MAR 16) Cl 103 (MAR 19) 102 (MAR 18) 102 (MAR 17) 102 (MAR 16) Cr 0.7 (MAR 19) 0.8 (MAR 18) 0.5 (MAR 17) 0.7 (MAR 16) BUN 8 (MAR 19) 10 (MAR 18) 9 (MAR 17) 10 (MAR 16) Glucose Random H 135 (MAR 19) H 123 (MAR 18) H 125 (MAR 17) H 125 (MAR 16) Mg L 1.6 (MAR 19) L 1.7 (MAR 18) L 1.7 (MAR 17) L 1.7 (MAR 16) Phos 3.6 (MAR 19) 3.6 (MAR 18) 3.7 (MAR 17) 3.0 (MAR 16) Ca L 8.1 (MAR 19) L 8.1 (MAR 18) L 8.1 (MAR 17) L 8.0 (MAR 16) PT H 14.8 (MAR 07) 14.2 (MAR 04) INR H 1.2 (MAR 07) H 1.2 (MAR 04) PTT L 21.3 (MAR 17) H 37.5 (MAR 17) 35.6 (MAR 17) 34.2 (MAR 17) Cultures Results: Culture Results Culture MRSA Screen Final - March 06 2022 08:17:11 PST No MRSA (Methicillin Resistant Staph Aureus) recovered Performed at [address] [address] [place] Laborer: Demond Mccoy MD Cult Blood Final - March 13 2022 11:23:54 PST Citrobacter koseri Staphylococcus aureus Enterococcus faecalis In 2 of 2 sets drawn this date. Performed at [address] [address] [place] Laborer: Demond Mccoy MD Final - March 13 2022 11:25:51 PST Citrobacter koseri Staphylococcus aureus Enterococcus faecalis Please refer to accession #[id number] for sensitivities. In 2 of 2 sets drawn [place] [address] [employer] [facility] Laborer: Demond Mccoy MD Culture Urine Final - March 14 2022 06:28:27 PST >100,000 cfu/ml Klebsiella oxytoca <10,000 cfu/ml Citrobacter [place] [address] [employer] Laborer: Demond Mccoy MD Cult Blood Final - March 17 2022 14:02:02 PST No growth at 5 days. Final - March 16 2022 08:10:37 PST Staphylococcus [place] [address] [employer] [facility] Laborer: Demond Mccoy MD Final - March 19 2022 06:01:34 PST No growth at 5 days. No growth at 5 days. . Impression and Plan Diagnosis: Active Diagnoses Stroke (Cerebral infarction, unspecified) Atrial fibrillation with rapid ventricular response (Unspecified atrial fibrillation) Altered mental status (Altered mental status, unspecified) . concern for CVA - s/p tpa - MRI was negative, CTA with no LVO - TTE with no thrombus reported( PFO not done) - cont statin, not on antiplatelet agents, discussed with neurology Dr Cagle, the main concern was for cardioembolic process and eliquis is enough, no need to add antiplatelets - PT Afib with RVR - continue digoxin and metoprolol - cont eliquis MSSA bacteremia, Enterococcus and Citrobacter bacteremia - ID following - ID recs: Unasyn thru 03/18. ancef 2 g iv q 8 03/19/22 hours for 4 weeks 03/13-04/10/22. - will likely need to go to a facility for antibiotics as he lives with elderly - TTE did now show endocarditis but did have some MV thickening - blood culture cleared 03/13 Urinary retention Hematuria - resolved BPH - continue blankenship catheter needs outpatient urology eval - per RN report patient was trialed off Blankenship and was retaining, it had to be placed back - no more hematuria, hgb stable - cont flomax COPD - was on steroids earlier in hospitalization - start PRN albuterol HTN - cont lisinopril ELOS: 1- 2 days,needs placement for completion of iv antibiotics - cm to follow [id number] Male 03/19/2022 [facility] Progress Note Patient: SHERRON SURESH Age: 76 years Legal Sex: Male : 1945 Author: DO Fernandez Mina Basic Information Time Seen: Date and Time seen:: 03/18/2022 15:38:00. feels good. no joint pain. Review of Systems ROS reviewed as documented in chart Health Status Current medications: None, Active inpatient medications ACTIVE INPT MEDS: ampicillin-sulbactam (Unasyn) 3 gm IVPB [id number] apixaban (Eliquis) 5 mg ORAL BID atorvastatin 80 mg ORAL QBedtime cholecalciferol 25 mcg ORAL DAILY digoxin 0.125 mg ORAL DAILY furosemide 20 mg ORAL DAILY insulin lispro (insulin lispro Correction Scale Med (Body wt 70-100kg)) SUBQ Q6H lisinopril 10 mg ORAL DAILY metoprolol 25 mg ORAL BID pantoprazole (Protonix) 40 mg ORAL ACBkfst Pharmacy Communication N/A As directed Pharmacy Communication N/A As directed Pharmacy Consult N/A As directed tamsulosin 0.4 mg ORAL QBedtime ACTIVE PRN MEDS: acetaminophen 650 mg ORAL Q6H glucagon 1 mg SUBQ As directed glucose (Dextrose 50% Inj 50 mL) 25 mL IV As directed glucose (Dextrose 50% Inj 50 mL) 50 mL IV As directed glucose (glucose 40% oral gel) 15 gm ORAL As directed levalbuterol (Xopenex) 1.25 mg INH Q4H metoprolol (metoprolol IV) 5 mg IV PUSH Q6H nalOXone (Narcan) 0.2 mg IV PUSH As directed traMADol 50 mg ORAL Q6H ONE TIME MEDS: None ACTIVE IV MEDS: None Problem List: Problem List Active or Inactive Problems (4) Body mass index 30+ - obesity Elevated serum cholesterol High blood pressure TIA (transient ischemic attack) Physical Examination Intake and Output Intake and Output Fluid Balance Intake and Output as of 15:37 (24 hour periods starting at 06:00) 03/18/22 03/17/22 03/16/22 Intake mL 37 2643 3860 Output mL 1000 2012 2010 Fluid Balance -[phone] VS/Measurements: Inpt. Vital signs (ST) Vital Signs (last 24 hrs) Last Charted Minimum Maximum Temp(?F) 97.8 (MAR 18 11:31 PST) 97.8 (MAR 18 11:31 PST) 98.4 (B 20:11 PST) Heart Rate 79 (MAR 18 11:32 PST) 64 (B 15:46 PST) 95 (B 20:11 PST) Resp Rate 20 (MAR 18 11:32 PST) 17 (B 15:46 PST) 20 (B 11:32 PST) SBP 134 (B 11:31 PST) 113 (B 20:11 PST) H 162 (B 15:46 PST) DBP 69 (B 11:31 PST) 60 (B 20:11 PST) 81 (B 07:40 PST) SpO2 96 (B 11:32 PST) 95 (B 07:40 PST) 97 (B 15:46 PST) OXYFLOW 2 (MAR 18 11:32 PST) 2 (B 15:46 PST) 2 (MAR 17 15:46 PST) OXYDELIVERY Nasal cannula Nasal Nasal (MAR 18 11:32 PST) (B 15:46 PST) (B 15:46 PST) , Measurements 03/17/2022 08:38 PST Weight (kg) 96.5 kg Weight measured method Bed scale 03/17/2022 04:34 PST Weight (kg) 96.5 kg . comfortable abd soft ext warm Review / Management Laboratory Results Labs (Last four charted values) WBC H 11.70 (MAR 06) H 11.60 (MAR 05) H 11.80 (MAR 16) H 13.10 (MAR 03) Hgb L 9.2 (MAR 18) L 9.2 (MAR 05) L 9.4 (MAR 16) L 9.2 (MAR 03) Hct L 27.9 (MAR 06) L 27.5 (B 05) L 27.8 (B 04) L 27.2 (MAR 03) Plt 399 (B 06) 322 (FEB 05) 289 (FEB 04) 225 (B 03) Na 138 (B 06) 138 (B 05) 138 (B 04) L 135 (MAR 03) K 4.6 (MAR 18) 4.4 (B 05) 4.1 (B 04) 3.9 (MAR 03) CO2 31 (MAR 18) 29 (MAR 17) 31 (MAR 16) 31 (MAR 15) Cl 102 (MAR 18) 102 (MAR 17) 102 (MAR 16) 102 (MAR 15) Cr 0.8 (MAR 18) 0.5 (MAR 17) 0.7 (MAR 16) 0.7 (MAR 15) BUN 10 (MAR 18) 9 (MAR 17) 10 (MAR 16) 13 (MAR 15) Glucose Random H 123 (MAR 18) H 125 (MAR 17) H 125 (MAR 16) H 132 (MAR 15) Mg L 1.7 (MAR 18) L 1.7 (MAR 17) L 1.7 (MAR 16) L 1.6 (MAR 15) Phos 3.6 (MAR 18) 3.7 (MAR 17) 3.0 (MAR 16) 2.6 (MAR 15) Ca L 8.1 (MAR 18) L 8.1 (MAR 17) L 8.0 (MAR 16) L 7.3 (MAR 15) PT H 14.8 (MAR 07) 14.2 (MAR 04) INR H 1.2 (MAR 07) H 1.2 (MAR 04) PTT L 21.3 (MAR 17) H 37.5 (MAR 17) 35.6 (MAR 17) 34.2 (MAR 17) DIAGNOSTIC DATA: 03/10/22: Blood culture 2/2 sets, Staphylococcus aureus, enterococcus fecalis, Citrobacter koseri. Cirtobacter koseri 03/10/22: Blood culture 2/2 sets Citrobacter koseri, Enterococcus, S. aureus: blood culture biofire enterobacteriacae, staph aureus. e faecalis 03/12/22: Blood culture 1/2 sets in progress gpc clusters: S aureus 03/13/22: Blood culture 2/2 sets in progress 03/15/22: Blood culture 2/2 sets in progress 03/10 urine culture: Greater than 100,000 colony-forming units and gram-negative vanesa. 03/10 UA: 46 WBCs, 15 RBCs. 03/04/22: MRSA screen negative. 03/06 MRI brain without contrast: Poor study. Echocardiogram 03/05/22: A bubble study not completed due to lack of cooperation, due to quality EF 55-60. No thrombus. No pericardial effusion. 03/04 CTA head and neck. No hemodynamically significant stenosis. 03/04/22 CT brain: Atrophy, no hemorrhage. 03/11/22: urine culture:>100,000 cfu/ml Klebsiella oxytoca <10,000 cfu/ml Citrobacter koseri 03/05/22: TTE Summary Technically limited study, poor acoustic windows. Due to the quality of the echocardiogram bubble study not completed. Ejection fraction is visually estimated at 55-60%. No obvious evidence of cardiac source thrombus. Mild left atrial enlargement. Right ventricle is not well visualized. Right atrium is not well visualized. Moderate to severe aortic insufficiency. Thickened mitral valve leaflets with reduced excursion. Tricuspid valve was not well visualized. Insufficient tricuspid regurgitation jet to calculate RVSP. Mild pulmonic regurgitation. Normal size aortic root. Normal size of IVC with normal inspiratory collapse. There is no evidence of pericardial effusion. 03/04/22 CTA head and neck; No evidence of hemodynamically significant stenosis in the neck. No dissection or occlusion Inflammatory changes surrounding the distal left common carotid and carotid bulb suggest prior endarterectomy. No evidence of hemodynamically significant stenosis in the head. No aneurysm or occlusion. No evidence of vascular mass. 03/04/22: ct brain Impression: Atrophy. No acute hemorrhage. Anti-Infective Medications Ordered Medications ampicillin-sulbactam, 3 gm = 1 Vial, IVPB, [id number], Indication= Bacteremia / Fungemia, INJ, 03/11/22 18:00:00 PST, 7 Day(s), Stop date 03/18/22 23:59:00 PST, 200 mL/hr, 30 min Completed Medications vancomycin, 2,000 mg, IVPB, ONCE, Indication= Bloodstream Infection, IV SOLN, 03/11/22 4:00:00 PST, Stop date 03/11/22 4:00:00 PST, 250 mL/hr, 120 min Discontinued Medications cefTRIAXone, 1 gm, IVPB, Q24H, Indication= Sepsis, INJ, 03/10/22 12:52:00 PST vancomycin, 1,000 mg, IVPB, [id number], Indication= Bloodstream Infection, IV SOLN, 03/11/22 22:00:00 PST Impression and Plan Polymicrobial bacteremia, suspect MSSA bacteremia was present on admission and other organisms are secondary to Blankenship catheter.03/05 TTE neg. No evidence of hematogenous seeding. COPD exacerbation status post methylprednisolone. Diabetes mellitus, A1c 6.1, new diagnosis. Dyslipidemia. Atrial fibrillation. Stroke, status post tPA 03/04. Atrial fibrillation with RVR. Carotid artery disease, status post left carotid endarterectomy 02/21/2022. Unasyn thru 03/18. ancef 2 g iv q 8 03/19/22 hours for 4 weeks 03/13-04/10/22. CBC, CMP. Updated hospitalist. MLC ordered. Family and patient updated. Face to face time 15 minutes. Total time spent 50 minutes. [id number] Male 03/18/2022 [facility] Hospitalist Progress Note Patient: SHERRON SURESH Age: 76 years Legal Sex: Male : 1945 Author: MD Benjamin, Nerses Basic Information Patient was seen this morning, denies any pain, breathing is stable, discussed his hospitalization, discussed that he will need IV antibiotics for several more weeks and that likely he will need to go to some facility for this, he agrees Review of Systems Constitutional: Negative except as documented in history of present illness. Eye: Negative except as documented in history of present illness. Respiratory: Negative except as documented in history of present illness. Cardiovascular: Negative except as documented in history of present illness. Gastrointestinal: Negative except as documented in history of present illness. Hematology/Lymphatics: Negative except as documented in history of present illness. Musculoskeletal: Negative except as documented in history of present illness. Neurologic: Negative except as documented in history of present illness. Health Status Current medications: Home Medications (16) Active aspirin 325 mg oral enteric coated tablet 1 Tab, ORAL, DAILY (Documented 12/10/13) atenolol 50 mg oral tablet 1 Tab, ORAL, DAILY (Documented 12/10/13) atenolol 50 mg oral tablet 50 mg = 1 Tab, ORAL, DAILY (Documented 12/11/13) atorvastatin 40 mg oral tablet 1 Tab, ORAL, QBedtime (Documented 12/10/13) atorvastatin 80 mg oral tablet 80 mg = 1 Tab, ORAL, DAILY (Documented 03/07/22) cholecalciferol 1000 intl units oral tablet 25 mcg = 1 Tab, ORAL, DAILY (Documented 03/07/22) clopidogrel 75 mg oral tablet 75 mg = 1 Tab, ORAL, DAILY (Documented 03/07/22) docusate-senna 50 mg-8.6 mg oral capsule (Documented 03/07/22) Fish Oil 1000 mg oral capsule 1 Cap, ORAL, DAILY (Documented 12/10/13) furosemide 20 mg oral tablet 20 mg = 1 Tab, ORAL, DAILY (Documented 03/07/22) hydrochlorothiazide-lisinopril 12.5 mg-10 mg oral tablet 1 Tab, ORAL, DAILY (Documented 12/10/13) lisinopril 2.5 mg, ORAL, DAILY (Documented 03/07/22) metFORMIN 500 mg, ORAL, DAILY (Documented 03/07/22) metoprolol 25 mg, ORAL, DAILY (Documented 03/07/22) tamsulosin 0.4 mg oral capsule 0.4 mg = 1 Cap, ORAL, QBedtime (Documented 03/07/22) traMADol 50 mg oral tablet , PRN, Q6H (Documented 12/10/13) , Active inpatient medications ACTIVE INPT MEDS: ampicillin-sulbactam (Unasyn) 3 gm IVPB [id number] apixaban (Eliquis) 5 mg ORAL BID atorvastatin 80 mg ORAL QBedtime cholecalciferol 25 mcg ORAL DAILY digoxin 0.125 mg ORAL DAILY furosemide 20 mg ORAL DAILY insulin lispro (insulin lispro Correction Scale Med (Body wt 70-100kg)) SUBQ Q6H lisinopril 10 mg ORAL DAILY metoprolol 25 mg ORAL BID pantoprazole (Protonix) 40 mg ORAL ACBkfst Pharmacy Communication N/A As directed Pharmacy Communication N/A As directed Pharmacy Consult N/A As directed tamsulosin 0.4 mg ORAL QBedtime ACTIVE PRN MEDS: acetaminophen 650 mg ORAL Q6H glucagon 1 mg SUBQ As directed glucose (Dextrose 50% Inj 50 mL) 25 mL IV As directed glucose (Dextrose 50% Inj 50 mL) 50 mL IV As directed glucose (glucose 40% oral gel) 15 gm ORAL As directed levalbuterol (Xopenex) 1.25 mg INH Q4H metoprolol (metoprolol IV) 5 mg IV PUSH Q6H nalOXone (Narcan) 0.2 mg IV PUSH As directed traMADol 50 mg ORAL Q6H ONE TIME MEDS: None ACTIVE IV MEDS: None Problem List: Problem List Active or Inactive Problems (4) Body mass index 30+ - obesity Elevated serum cholesterol High blood pressure TIA (transient ischemic attack) Physical Examination Intake and Output Intake and Output Fluid Balance Intake and Output as of 12:13 (24 hour periods starting at 06:00) 03/18/22 03/17/22 03/16/22 Intake mL 37 2643 3860 Output mL 1000 4350 6375 Fluid Balance -[phone] VS/Measurements: Inpt. Vital signs (ST) Vital Signs (last 24 hrs) Last Charted Minimum Maximum Temp(?F) 97.8 (MAR 18 11:31 PST) 97.8 (MAR 18:31 PST) 98.4 (MAR 17:11 PST) Heart Rate 79 (MAR 18 11:32 PST) 64 (MAR 17 15:46 PST) 95 (MAR 17:11 PST) Resp Rate 20 (MAR 18:32 PST) 17 (MAR 17 15:46 PST) 20 (MAR 18:32 PST) SBP 134 (MAR 18 11:31 PST) 113 (MAR 17 20:11 PST) H 162 (MAR 17 15:46 PST) DBP 69 (MAR 18:31 PST) 60 (FEB 05 20:11 PST) 81 (MAR 18 07:40 PST) SpO2 96 (MAR 18 11:32 PST) 94 (MAR 17 12:26 PST) 97 (MAR 17 15:46 PST) OXYFLOW 2 (MAR 18 11:32 PST) 2 (MAR 17 12:25 PST) 2 (MAR 17 12:25 PST) OXYDELIVERY Nasal cannula Nasal Nasal (MAR 18 11:32 PST) (MAR 17 12:25 PST) (MAR 17 12:25 PST) , Measurements 03/17/2022 08:38 PST Weight (kg) 96.5 kg Weight measured method Bed scale 03/17/2022 04:34 PST Weight (kg) 96.5 kg . General: alert, Not in distress HEENT: normocephalic Eyes: normal conjunctiva, EOMI Cardiac: normal rate, rhythm, no rubs, murmurs or gallops Chest: Normal resp effort, diminished breath sounds b/l, no wheezing or crackles Abdomen: non tender, non distended, bowel sounds present Extremities: +1 edema Neuro: Alert and oriented, awake, answering questions Review / Management Results review: Lab results 03/18/2022 05:12 PST White Blood Cell Count 11.70 K/mm3 HI Red Blood Cell Count 3.10 M/mm3 LOW Hemoglobin 9.2 gm/dL LOW Hematocrit 27.9 % LOW Mean Cell Volume 90.0 fL Normal Mean Cell Hemoglobin 29.7 pg Normal Mean Cell Hgb Concentration 33.0 gm/dL Normal RBC Distribution Width 14.6 % HI Platelet Count 399 K/mm3 Normal Mean Platelet Volume 9.6 fL Normal Auto Neutrophil Percent 75.7 % Normal Auto Lymphocyte Percent 14.3 % Normal Auto Monocyte Percent 8.7 % Normal Auto Eosinophil Percent 0.9 % Normal Auto Basophil Percent 0.4 % Normal Auto Neutrophil Absolute 8.8 K/mm3 HI Auto Lymphocyte Absolute 1.7 K/mm3 Normal Auto Monocyte Absolute 1.0 K/mm3 Normal Auto Eosinophil Absolute 0.1 K/mm3 Normal Auto Basophil Absolute 0.0 K/mm3 Normal Sodium Level 138 mmol/L Normal Potassium Level 4.6 mmol/L Normal Chloride Level 102 mmol/L Normal Carbon Dioxide 31 mmol/L Normal Anion Gap Calculated 5 mmol/L Normal Glucose Random 123 mg/dL HI Blood Urea Nitrogen 10 mg/dL Normal Creatinine 0.8 mg/dL Normal eGFR 90 mL/min/1.73m2 NA BUN/Creatinine Ratio Calculated 12 LOW Osmolality, Calculated 276 mOsm/L Normal Calcium Level 8.1 mg/dL LOW Magnesium Level 1.7 mg/dL LOW Phosphorus Level 3.6 mg/dL Normal Protein Total 5.7 gm/dL LOW Albumin Level 2.5 gm/dL LOW Globulin Level 3.2 gm/dL Normal Albumin/Globulin Ratio Calculated 0.8 LOW Bilirubin, Direct 0.2 mg/dL Normal Bilirubin, Total 0.8 mg/dL Normal Bilirubin, Indirect (Calc) 0.6 mg/dL NA Alkaline Phosphatase 82 IntUnit/L Normal Alanine Aminotransferase (SGPT) 64 IntUnit/L HI Aspartate Aminotransferase (SGOT) 39 IntUnit/L Normal 03/17/2022 20:45 PST PTT Patient 21.3 sec LOW 03/17/2022 13:34 PST PTT Patient 37.5 sec HI 03/17/2022 08:35 PST PTT Patient 35.6 sec Normal 03/17/2022 03:22 PST White Blood Cell Count 11.60 K/mm3 HI Red Blood Cell Count 3.06 M/mm3 LOW Hemoglobin 9.2 gm/dL LOW Hematocrit 27.5 % LOW Mean Cell Volume 89.6 fL Normal Mean Cell Hemoglobin 30.1 pg Normal Mean Cell Hgb Concentration 33.6 gm/dL Normal RBC Distribution Width 14.2 % Normal Platelet Count 322 K/mm3 Normal Mean Platelet Volume 9.6 fL Normal Auto Neutrophil Percent 80.6 % HI Auto Lymphocyte Percent 10.0 % Normal Auto Monocyte Percent 8.2 % Normal Auto Eosinophil Percent 0.8 % Normal Auto Basophil Percent 0.4 % Normal Auto Neutrophil Absolute 9.3 K/mm3 HI Auto Lymphocyte Absolute 1.2 K/mm3 Normal Auto Monocyte Absolute 0.9 K/mm3 Normal Auto Eosinophil Absolute 0.1 K/mm3 Normal Auto Basophil Absolute 0.0 K/mm3 Normal Auto NRBC % 0.1 % NA Sodium Level 138 mmol/L Normal Potassium Level 4.4 mmol/L Normal Chloride Level 102 mmol/L Normal Carbon Dioxide 29 mmol/L Normal Anion Gap Calculated 7 mmol/L Normal Glucose Random 125 mg/dL HI Blood Urea Nitrogen 9 mg/dL Normal Creatinine 0.5 mg/dL Normal eGFR >90 mL/min/1.73m2 NA BUN/Creatinine Ratio Calculated 18 Normal Osmolality, Calculated 276 mOsm/L Normal Calcium Level 8.1 mg/dL LOW Magnesium Level 1.7 mg/dL LOW Phosphorus Level 3.7 mg/dL Normal Protein Total 5.4 gm/dL LOW Albumin Level 2.2 gm/dL LOW Globulin Level 3.2 gm/dL Normal Albumin/Globulin Ratio Calculated 0.7 LOW Bilirubin, Direct 0.3 mg/dL Normal Bilirubin, Total 1.0 mg/dL Normal Bilirubin, Indirect (Calc) 0.7 mg/dL NA Alkaline Phosphatase 75 IntUnit/L Normal Alanine Aminotransferase (SGPT) 63 IntUnit/L Normal Aspartate Aminotransferase (SGOT) 41 IntUnit/L Normal PTT Patient 34.2 sec Normal . Laboratory Results Labs (Last four charted values) WBC H 11.70 (MAR 18) H 11.60 (MAR 17) H 11.80 (MAR 16) H 13.10 (MAR 15) Hgb L 9.2 (MAR 18) L 9.2 (MAR 17) L 9.4 (MAR 16) L 9.2 (MAR 15) Hct L 27.9 (MAR 18) L 27.5 (MAR 17) L 27.8 (MAR 16) L 27.2 (MAR 15) Plt 399 (MAR 18) 322 (MAR 05) 289 (MAR 16) 225 (MAR 15) Na 138 (MAR 18) 138 (MAR 05) 138 (MAR 16) L 135 (MAR 15) K 4.6 (MAR 06) 4.4 (MAR 05) 4.1 (MAR 16) 3.9 (MAR 15) CO2 31 (MAR 18) 29 (MAR 17) 31 (MAR 16) 31 (MAR 15) Cl 102 (MAR 18) 102 (MAR 05) 102 (MAR 16) 102 (MAR 15) Cr 0.8 (MAR 06) 0.5 (MAR 05) 0.7 (MAR 16) 0.7 (MAR 15) BUN 10 (MAR 18) 9 (MAR 05) 10 (MAR 16) 13 (MAR 15) Glucose Random H 123 (MAR 06) H 125 (B 05) H 125 (MAR 04) H 132 (MAR 03) Mg L 1.7 (MAR 06) L 1.7 (MAR 05) L 1.7 (MAR 16) L 1.6 (MAR 15) Phos 3.6 (MAR 18) 3.7 (MAR 17) 3.0 (MAR 16) 2.6 (MAR 15) Ca L 8.1 (MAR 18) L 8.1 (MAR 17) L 8.0 (MAR 16) L 7.3 (MAR 15) PT H 14.8 (MAR 07) 14.2 (MAR 04) INR H 1.2 (MAR 07) H 1.2 (MAR 04) PTT L 21.3 (MAR 17) H 37.5 (MAR 17) 35.6 (MAR 17) 34.2 (MAR 17) Cultures Results: Culture Results Culture MRSA Screen Final - March 06 2022 08:17:11 PST No MRSA (Methicillin Resistant Staph Aureus) [place] [address] [employer] Laborer: Demond Mccoy MD Cult Blood Final - March 13 2022 11:23:54 PST Citrobacter koseri Staphylococcus aureus Enterococcus faecalis In 2 of 2 sets drawn [place] [address] [employer] Laborer: Demond Mccoy MD Final - March 13 2022 11:25:51 PST Citrobacter koseri Staphylococcus aureus Enterococcus faecalis Please refer to accession #[id number] for sensitivities. In 2 of 2 sets drawn [place] [address] [employer] Laborer: Demond Mccoy MD Culture Urine Final - March 14 2022 06:28:27 PST >100,000 cfu/ml Klebsiella oxytoca <10,000 cfu/ml Citrobacter [place]oseri [place] [address] [employer] Laborer: Demond Mccoy MD Cult Blood Final - March 17 2022 14:02:02 PST No growth at 5 days. Final - March 16 2022 08:10:37 PST Staphylococcus [place] [address] [employer] Laborer: Deomnd Mccoy MD . Impression and Plan Diagnosis: Active Diagnoses Stroke (Cerebral infarction, unspecified) Atrial fibrillation with rapid ventricular response (Unspecified atrial fibrillation) Altered mental status (Altered mental status, unspecified) . Diagnosis: Active Diagnoses Stroke (Cerebral infarction, unspecified) Atrial fibrillation with rapid ventricular response (Unspecified atrial fibrillation) Altered mental status (Altered mental status, unspecified) . Diagnosis: Active Diagnoses Stroke (Cerebral infarction, unspecified) Atrial fibrillation with rapid ventricular response (Unspecified atrial fibrillation) Altered mental status (Altered mental status, unspecified) . concern for CVA - s/p tpa - MRI was negative, CTA with no LVO - TTE with no thrombus reported( PFO not done) - cont statin, not on antiplatelet agents, discussed with neurology Dr Cagle, the main concern was for cardioembolic process and eliquis is enough, no need to add antiplatelets - PT Afib with RVR - continue digoxin and metoprolol - cont eliquis MSSA bacteremia, Enterococcus and Citrobacter bacteremia - ID following - on Unasyn planned until 03/18 after this cefazolin 2g Q8H for 4-6 weeks - ID final plan pending regarding dates and line clearance - will likely need to go to a facility for antibiotics as he lives with elderly - TTE did now show endocatditis but did have some MV thickening - blood culture cleared 03/13 Urinary retention Hematuria - resolved BPH - continue blankenship catheter needs outpatient urology eval - per RN report patient was trialed off Blankenship and was retaining, it had to be placed back - no more hematuria, hgb stable - cont flomax COPD - was on steroids earlier in hospitalization - start PRN albuterol HTN - cont lisinopril ELOS: 1- 2 days, needs ID clearance for line, final antibiotic plan and dispo planning [id number] Male 03/18/2022 [facility] Emergencyist Progress Note Patient: SHERRON SURESH Age: 76 years Legal Sex: MALE : 1945 Subjective pt Seen and examined today denies of any shortness of breath chest pain dizziness nausea vomiting abdominal pain Objective Vitals and Measurements T: 97.9 F HR: 101(Apical) HR: 101 RR: 18 BP: 125/66 SpO2: 97% O2 Delivery: Nasal cannula O2 Flow: 2L/min HT: 180.34 cm WT: 96.5 kg BMI: 26.2 kg/m2 Intake and Output as of 11:49 (24 hour periods starting at 06:00) 03/17/22 03/16/22 03/15/22 Intake mL 580 3860 1700 Output mL 350 6375 3050 Fluid Balance 230 -0845 -1350 Physical Exam General Appearance: No acute distress. HEENT: NCAT. Normal oropharynx. Neck supple without lymphadenopathy. Cardiac: irregular. s1 s2 normal No murmurs. Lungs: Clear to auscultation.,normal breath sounds Abdomen: Soft, non-distended, non-tender. bowel sounds normal Neurological: AAO X3 Grossly intact motor and sensory examination. Skin: No rash present. Psychiatric: awake oriented LE :no pedal edema , pulses palpable Inpatient Medications Scheduled: ampicillin-sulbactam 3 gm 1 Vial, IVPB, C3T-Igrfrrvh apixaban 5 mg Tab 5 mg 1 Tab, ORAL, BID atorvastatin 40 mg Tab 80 mg 2 Tab, ORAL, QBedtime cholecalciferol (D3) 25 mcg (1,000 IU) Tab 25 mcg 1 Tab, ORAL, DAILY digoxin 0.125 mg Tab 0.125 mg 1 Tab, ORAL, DAILY furosemide 20 mg Tab 20 mg 1 Tab, ORAL, DAILY insulin lispro (Admelog) 100 units/mL, 3 mL MDV correction scale, SUBQ, Q6H lisinopril 10 mg Tab 10 mg 1 Tab, ORAL, DAILY metoprolol tartrate 25 mg Tab 25 mg 1 Tab, ORAL, BID pantoprazole 40 mg EC Tab 40 mg 1 Tab, ORAL, ACBkfst Pharmacy Communication No Anticoag/antithrombotic/antiplat elet, N/A, As directed Pharmacy Communication As Directed, N/A, As directed Pharmacy Consult Pharmacotherapy Review, N/A, As directed tamsulosin 0.4 mg Cap 0.4 mg 1 Cap, ORAL, QBedtime Continuous: PRN: acetaminophen 325 mg Tab 650 mg 2 ea, ORAL, Q6H Dextrose 50% Inj 50 mL Syr 25 mL, IV, As directed Dextrose 50% Inj 50 mL Syr 50 mL, IV, As directed glucagon 1 mg Inj SDV 1 mg, SUBQ, As directed Glucose 40% Oral Gel 15 gm 15 gm 37.5 mL, ORAL, As directed levalbuterol 1.25 mg/3 mL Neb Amp 3 mL 1.25 mg 3 mL, INH, Q4H metoprolol tartrate 1 mg/mL Inj 5 mL 5 mg 5 mL, IV PUSH, Q6H nalOXone 0.4 mg/mL, 1 mL Inj 0.2 mg 0.5 mL, IV PUSH, As directed traMADol 50 mg Tab 50 mg 1 Tab, ORAL, Q6H Lab Results Labs All 24H Lab Results Date Auto NRBC % 0.1 % 03/17/22 03:22 PST Auto Neutrophil Percent 80.6 % (HIGH) 03/17/22 03:22 PST Auto Neutrophil Absolute 9.3 K/mm3 (HIGH) 03/17/22 03:22 PST Auto Lymphocyte Percent 10.0 % 03/17/22 03:22 PST Auto Lymphocyte Absolute 1.2 K/mm3 03/17/22 03:22 PST Auto Monocyte Percent 8.2 % 03/17/22 03:22 PST Auto Monocyte Absolute 0.9 K/mm3 03/17/22 03:22 PST Auto Basophil Percent 0.4 % 03/17/22 03:22 PST Auto Basophil Absolute 0.0 K/mm3 03/17/22 03:22 PST Auto Eosinophil Percent 0.8 % 03/17/22 03:22 PST Auto Eosinophil Absolute 0.1 K/mm3 03/17/22 03:22 PST WBC 11.60 K/mm3 (HIGH) 03/17/22 03:22 PST RBC 3.06 M/mm3 (LOW) 03/17/22 03:22 PST HGB 9.2 gm/dL (LOW) 03/17/22 03:22 PST HCT 27.5 % (LOW) 03/17/22 03:22 PST MCV 89.6 fL 03/17/22 03:22 PST MCH 30.1 pg 03/17/22 03:22 PST MCHC 33.6 gm/dL 03/17/22 03:22 PST RDW 14.2 % 03/17/22 03:22 PST PLT 322 K/mm3 03/17/22 03:22 PST MPV 9.6 fL 03/17/22 03:22 PST PTT - Patient 35.6 sec 03/17/22 08:35 PST Sodium Level 138 mmol/L 03/17/22 03:22 PST Potassium Level 4.4 mmol/L 03/17/22 03:22 PST Chloride Level 102 mmol/L 03/17/22 03:22 PST CO2/Carbon Dioxide 29 mmol/L 03/17/22 03:22 PST Anion Gap 7 mmol/L 03/17/22 03:22 PST Glucose, Random 125 mg/dL (HIGH) 03/17/22 03:22 PST POCT - Glucose (Capillary) 130 mg/dL (HIGH) 03/17/22 05:30 PST BUN 9 mg/dL 03/17/22 03:22 PST Creatinine 0.5 mg/dL 03/17/22 03:22 PST BUN/Creat Ratio 18 03/17/22 03:22 PST Osmolality, Calculated 276 mOsm/L 03/17/22 03:22 PST Calcium Level 8.1 mg/dL (LOW) 03/17/22 03:22 PST Magnesium Level 1.7 mg/dL (LOW) 03/17/22 03:22 PST Phosphorus Level 3.7 mg/dL 03/17/22 03:22 PST Total Protein 5.4 gm/dL (LOW) 03/17/22 03:22 PST Albumin Level 2.2 gm/dL (LOW) 03/17/22 03:22 PST Globulin Level 3.2 gm/dL 03/17/22 03:22 PST A/G Ratio 0.7 (LOW) 03/17/22 03:22 PST Bilirubin, Total 1.0 mg/dL 03/17/22 03:22 PST Bilirubin, Direct 0.3 mg/dL 03/17/22 03:22 PST Bilirubin, Indirect (Calc) 0.7 mg/dL 03/17/22 03:22 PST AST 41 IntUnit/L 03/17/22 03:22 PST ALT 63 IntUnit/L 03/17/22 03:22 PST ALP 75 IntUnit/L 03/17/22 03:22 PST eGFR >90 mL/min/1.73m2 03/17/22 03:22 PST Assessment/Plan _ Altered mental status (Altered mental status, [id number]) Altered mental status (Altered mental status, unspecified, R41.82) Atrial fibrillation with rapid ventricular response (Unspecified atrial fibrillation, I48.91) Stroke (Cerebral infarction, unspecified, I63.9) 76-year-old male with known history of hypertension, hyperlipidemia and COPD with history of smoking who presented to ER with altered mental status and probable TIA/ CVA and s/p tPA admitted to ICU for further management. Patient being monitored in ICU course for 24 hours an found to have A. fib with RVR received amiodarone and beta-blockers afterwards transferred to medical floor [1] Bacteremia - Polymicrobial bacteremia -TTENEGATIVE for endocarditis repeat blood cultures pending yet preliminary negative -ID on board -IV ABX Unasyn till Mar then switched to Ancef as per ID A. fib with RVR -Newly onset,cardiology on board -Rate controlled continue medications and anticoagulation as per cardiology -Cardiology input appreciated -Vital signs reviewed currently stable started the patient on Eliquis DM -insulin -FS target 140-180 CVA -SP tPA -Currently stable -Continue telemetry monitoring Hematuria -Resolved,HgB stable traumatic versus-UTI versus anticoagulation use -Monitoring CBC and blood transfusion to keep hemoglobin more than 7 Anemia -Hemoglobin stable -Continue monitoring CBC Disposition Discussed with the patient today who said he wants to talk to immigration case manager about SNIF details as he is interested in going to SNF for rehab discussed with the immigration case manager today who who said she will talk to the patient about the details and options Orders: apixaban (Eliquis), 5 mg, ORAL, BID, Indication = Atrial Fibrillation, TAB, 03/16/22 9:10:00 PST Pharmacy Consult (Pharmacy Consult), Pharmacotherapy Review, 03/16/22 8:58:00 PST, N/A, 03/16/22 8:58:00 PST Continue Blankenship Photograph Wound Wound Care Wound/Enterostomal Therapist Consult [id number] Male 03/17/2022 [facility] Emergencyist Progress Note Patient: SHERRON SURESH Age: 76 years Legal Sex: MALE : 1945 Subjective pt seen and examined today patient feels his breathing is better he is denying chest pain dizziness nausea vomiting complaining of multiple scabs on his left forearm that occasionally bleed Objective Vitals and Measurements T: 97.4 F HR: 99(Apical) HR: 78 RR: 17 BP: 159/92 SpO2: 98% O2 Delivery: Nasal cannula O2 Flow: 3L/min HT: 180.34 cm WT: 98.4 kg BMI: 26.2 kg/m2 Intake and Output as of 13:17 (24 hour periods starting at 06:00) 03/16/22 03/15/22 03/14/22 Intake mL 1200 1700 400 Output mL 2125 3050 1800 Fluid Balance -925 -1350 -1400 Physical Exam General Appearance: No acute distress. HEENT: NCAT. Normal oropharynx. Neck supple without lymphadenopathy. Cardiac: Normal sinus rhythm. s1 s2 normal No murmurs. Lungs: Clear to auscultation.,normal breath sounds Abdomen: Soft, non-distended, non-tender. bowel sounds normal Neurological: AAO X3 Grossly intact motor and sensory examination. Skin: No rash present. Psychiatric: awake oriented LE :no pedal edema , pulses palpable Inpatient Medications Scheduled: ampicillin-sulbactam 3 gm 1 Vial, IVPB, L2Z-[id number] apixaban 5 mg Tab 5 mg 1 Tab, ORAL, BID atorvastatin 40 mg Tab 80 mg 2 Tab, ORAL, QBedtime cholecalciferol (D3) 25 mcg (1,000 IU) Tab 25 mcg 1 Tab, ORAL, DAILY digoxin 0.125 mg Tab 0.125 mg 1 Tab, ORAL, DAILY furosemide 20 mg Tab 20 mg 1 Tab, ORAL, DAILY insulin lispro (Admelog) 100 units/mL, 3 mL MDV correction scale, SUBQ, Q6H lisinopril 10 mg Tab 10 mg 1 Tab, ORAL, DAILY metoprolol tartrate 25 mg Tab 25 mg 1 Tab, ORAL, BID pantoprazole 40 mg EC Tab 40 mg 1 Tab, ORAL, ACBkfst Pharmacy Communication No Anticoag/antithrombotic/antiplat elet, N/A, As directed Pharmacy Communication As Directed, N/A, As directed Pharmacy Consult Pharmacotherapy Review, N/A, As directed tamsulosin 0.4 mg Cap 0.4 mg 1 Cap, ORAL, QBedtime Continuous: PRN: acetaminophen 325 mg Tab 650 mg 2 ea, ORAL, Q6H Dextrose 50% Inj 50 mL Syr 25 mL, IV, As directed Dextrose 50% Inj 50 mL Syr 50 mL, IV, As directed glucagon 1 mg Inj SDV 1 mg, SUBQ, As directed Glucose 40% Oral Gel 15 gm 15 gm 37.5 mL, ORAL, As directed levalbuterol 1.25 mg/3 mL Neb Amp 3 mL 1.25 mg 3 mL, INH, Q4H metoprolol tartrate 1 mg/mL Inj 5 mL 5 mg 5 mL, IV PUSH, Q6H nalOXone 0.4 mg/mL, 1 mL Inj 0.2 mg 0.5 mL, IV PUSH, As directed traMADol 50 mg Tab 50 mg 1 Tab, ORAL, Q6H Lab Results Labs All 24H Lab Results Date Auto Neutrophil Percent 82.3 % (HIGH) 03/16/22 05:36 PST Auto Neutrophil Absolute 9.7 K/mm3 (HIGH) 03/16/22 05:36 PST Auto Lymphocyte Percent 9.9 % 03/16/22 05:36 PST Auto Lymphocyte Absolute 1.2 K/mm3 03/16/22 05:36 PST Auto Monocyte Percent 6.9 % 03/16/22 05:36 PST Auto Monocyte Absolute 0.8 K/mm3 03/16/22 05:36 PST Auto Basophil Percent 0.3 % 03/16/22 05:36 PST Auto Basophil Absolute 0.0 K/mm3 03/16/22 05:36 PST Auto Eosinophil Percent 0.6 % 03/16/22 05:36 PST Auto Eosinophil Absolute 0.1 K/mm3 03/16/22 05:36 PST WBC 11.80 K/mm3 (HIGH) 03/16/22 05:36 PST RBC 3.11 M/mm3 (LOW) 03/16/22 05:36 PST HGB 9.4 gm/dL (LOW) 03/16/22 05:36 PST HCT 27.8 % (LOW) 03/16/22 05:36 PST MCV 89.6 fL 03/16/22 05:36 PST MCH 30.3 pg 03/16/22 05:36 PST MCHC 33.8 gm/dL 03/16/22 05:36 PST RDW 14.3 % 03/16/22 05:36 PST PLT 289 K/mm3 03/16/22 05:36 PST MPV 10.0 fL 03/16/22 05:36 PST PTT - Patient 33.4 sec 03/16/22 09:22 PST Sodium Level 138 mmol/L 03/16/22 05:36 PST Potassium Level 4.1 mmol/L 03/16/22 05:36 PST Chloride Level 102 mmol/L 03/16/22 05:36 PST CO2/Carbon Dioxide 31 mmol/L 03/16/22 05:36 PST Anion Gap 5 mmol/L 03/16/22 05:36 PST Glucose, Random 125 mg/dL (HIGH) 03/16/22 05:36 PST POCT - Glucose (Capillary) 150 mg/dL (HIGH) 03/16/22 11:58 PST BUN 10 mg/dL 03/16/22 05:36 PST Creatinine 0.7 mg/dL 03/16/22 05:36 PST BUN/Creat Ratio 14 (LOW) 03/16/22 05:36 PST Osmolality, Calculated 276 mOsm/L 03/16/22 05:36 PST Calcium Level 8.0 mg/dL (LOW) 03/16/22 05:36 PST Magnesium Level 1.7 mg/dL (LOW) 03/16/22 05:36 PST Phosphorus Level 3.0 mg/dL 03/16/22 05:36 PST Total Protein 5.5 gm/dL (LOW) 03/16/22 05:36 PST Albumin Level 2.2 gm/dL (LOW) 03/16/22 05:36 PST Globulin Level 3.3 gm/dL 03/16/22 05:36 PST A/G Ratio 0.7 (LOW) 03/16/22 05:36 PST Bilirubin, Total 0.8 mg/dL 03/16/22 05:36 PST Bilirubin, Direct 0.2 mg/dL 03/16/22 05:36 PST Bilirubin, Indirect (Calc) 0.6 mg/dL 03/16/22 05:36 PST AST 38 IntUnit/L 03/16/22 05:36 PST ALT 65 IntUnit/L (HIGH) 03/16/22 05:36 PST ALP 76 IntUnit/L 03/16/22 05:36 PST eGFR >90 mL/min/1.73m2 03/16/22 05:36 PST Assessment/Plan _ Altered mental status (Altered mental status, [id number] F917) Altered mental status (Altered mental status, unspecified, R41.82) Atrial fibrillation with rapid ventricular response (Unspecified atrial fibrillation, I48.91) Stroke (Cerebral infarction, unspecified, I63.9) 76-year-old male with known history of hypertension, hyperlipidemia and COPD with history of smoking who presented to ER with altered mental status and probable TIA/ CVA and s/p tPA admitted to ICU for further management. Patient being monitored in ICU course for 24 hours an found to have A. fib with RVR received amiodarone and beta-blockers afterwards transferred to medical floor [1] Bacteremia -Polymicrobial bacteremia -TTENEGATIVE for endocarditis repeat blood cultures pending yet -ID on board -IV ABX Unasyn till Mar then switched to Ancef as per ID A. fib with RVR -Newly onset,cardiology on board -Rate controlled continue medications and anticoagulation as per cardiology -Cardiology input appreciated -Vital signs reviewed currently stable we will start the patient on Eliquis today Boyd discontinued DM -insulin -FS target 140-180 CVA -SP tPA -Currently stable -Continue telemetry monitoring Secondary prophylaxis including aspirin, Plavix, high-dose Lipitor 80 mg bedtime Hematuria -Resolved,HgB stable Pneumatic versus-UTI versus anticoagulation use -Monitoring CBC and blood transfusion to keep hemoglobin more than 7 Anemia -Hemoglobin stable -Continue monitoring CBC Disposition discussed with the patient today regarding SNF placement but patient refused to go to SNF and patient will likely go home with home health care with IV antibiotics ending ID clearance for discharge Orders: apixaban (Eliquis), 5 mg, ORAL, BID, Indication = Atrial Fibrillation, TAB, 03/16/22 9:10:00 PST Pharmacy Consult (Pharmacy Consult), Pharmacotherapy Review, 03/16/22 8:58:00 PST, N/A, 03/16/22 8:58:00 PST Continue Blankenship Photograph Wound Wound Care Wound/Enterostomal Therapist Consult [1] IM Progress Note, Acute Care; MD Braulio, [facility] 03/10/2022 12:09 PST [id number] Male 03/16/2022 [facility] Emergencyist Progress Note Patient: SHERRON SURESH Age: 76 years Legal Sex: MALE : 1945 Subjective Seen and examined today patient feels his breathing is better he is denying chest pain dizziness nausea vomiting complaining of multiple scabs on his left forearm that occasionally bleed Objective Vitals and Measurements T: 97.8 F HR: 111(Apical) HR: 83 RR: 18 BP: 120/72 SpO2: 97% O2 Delivery: Nasal cannula O2 Flow: 3L/min HT: 180.34 cm WT: 93.5 kg BMI: 26.2 kg/m2 Intake and Output as of 15:09 (24 hour periods starting at 06:00) 03/15/22 03/14/22 03/13/22 Intake mL 680 400 800 Output mL 300 1800 1375 Fluid Balance 380 -1400 -575 Physical Exam General Appearance: No acute distress. HEENT: NCAT. Normal oropharynx. Neck supple without lymphadenopathy. Cardiac: Normal sinus rhythm. s1 s2 normal No murmurs. Lungs: Clear to auscultation.,normal breath sounds Abdomen: Soft, non-distended, non-tender. bowel sounds normal Neurological: AAO X3 Grossly intact motor and sensory examination. Skin: Multiple black scabs on left forearm nontender non-itchy. Psychiatric: awake oriented LE :no pedal edema , pulses palpable Inpatient Medications Scheduled: atorvastatin 40 mg Tab 80 mg 2 Tab, ORAL, QBedtime cholecalciferol (D3) 25 mcg (1,000 IU) Tab 25 mcg 1 Tab, ORAL, DAILY digoxin 0.125 mg Tab 0.125 mg 1 Tab, ORAL, DAILY enoxaparin 100 mg/mL, 1 mL Inj Syringe 90 mg 0.9 mL, SUBQ, Q12H furosemide 20 mg Tab 20 mg 1 Tab, ORAL, DAILY insulin lispro (Admelog) 100 units/mL, 3 mL MDV correction scale, SUBQ, Q6H lisinopril 10 mg Tab 10 mg 1 Tab, ORAL, DAILY metoprolol tartrate 25 mg Tab 25 mg 1 Tab, ORAL, BID pantoprazole 40 mg EC Tab 40 mg 1 Tab, ORAL, ACBkfst Pharmacy Communication No Anticoag/antithrombotic/antiplat elet, N/A, As directed Pharmacy Communication As Directed, N/A, As directed tamsulosin 0.4 mg Cap 0.4 mg 1 Cap, ORAL, QBedtime Continuous: PRN: acetaminophen 325 mg Tab 650 mg 2 ea, ORAL, Q6H Dextrose 50% Inj 50 mL Syr 25 mL, IV, As directed Dextrose 50% Inj 50 mL Syr 50 mL, IV, As directed glucagon 1 mg Inj SDV 1 mg, SUBQ, As directed Glucose 40% Oral Gel 15 gm 15 gm 37.5 mL, ORAL, As directed levalbuterol 1.25 mg/3 mL Neb Amp 3 mL 1.25 mg 3 mL, INH, Q4H metoprolol tartrate 1 mg/mL Inj 5 mL 5 mg 5 mL, IV PUSH, Q6H nalOXone 0.4 mg/mL, 1 mL Inj 0.2 mg 0.5 mL, IV PUSH, As directed traMADol 50 mg Tab 50 mg 1 Tab, ORAL, Q6H Lab Results Labs All 24H Lab Results Date Lactic Acid Level 1.6 mmol/L 03/14/22 21:11 PST Auto Neutrophil Percent 86.4 % (HIGH) 03/15/22 02:44 PST Auto Neutrophil Absolute 11.3 K/mm3 (HIGH) 03/15/22 02:44 PST Auto Lymphocyte Percent 7.0 % (LOW) 03/15/22 02:44 PST Auto Lymphocyte Absolute 0.9 K/mm3 03/15/22 02:44 PST Auto Monocyte Percent 5.9 % 03/15/22 02:44 PST Auto Monocyte Absolute 0.8 K/mm3 03/15/22 02:44 PST Auto Basophil Percent 0.0 % 03/15/22 02:44 PST Auto Basophil Absolute 0.0 K/mm3 03/15/22 02:44 PST Auto Eosinophil Percent 0.7 % 03/15/22 02:44 PST Auto Eosinophil Absolute 0.1 K/mm3 03/15/22 02:44 PST WBC 13.10 K/mm3 (HIGH) 03/15/22 02:44 PST RBC 3.03 M/mm3 (LOW) 03/15/22 02:44 PST HGB 9.2 gm/dL (LOW) 03/15/22 02:44 PST HCT 27.2 % (LOW) 03/15/22 02:44 PST MCV 89.7 fL 03/15/22 02:44 PST MCH 30.3 pg 03/15/22 02:44 PST MCHC 33.8 gm/dL 03/15/22 02:44 PST RDW 14.0 % 03/15/22 02:44 PST PLT 225 K/mm3 03/15/22 02:44 PST MPV 10.4 fL 03/15/22 02:44 PST PTT - Patient 32.9 sec 03/15/22 08:42 PST Sodium Level 135 mmol/L (LOW) 03/15/22 02:44 PST Potassium Level 3.9 mmol/L 03/15/22 02:44 PST Chloride Level 102 mmol/L 03/15/22 02:44 PST CO2/Carbon Dioxide 31 mmol/L 03/15/22 02:44 PST Anion Gap 2 mmol/L (LOW) 03/15/22 02:44 PST Glucose, Random 132 mg/dL (HIGH) 03/15/22 02:44 PST POCT - Glucose (Capillary) 185 mg/dL (HIGH) 03/15/22 11:41 PST BUN 13 mg/dL 03/15/22 02:44 PST Creatinine 0.7 mg/dL 03/15/22 02:44 PST BUN/Creat Ratio 19 03/15/22 02:44 PST Osmolality, Calculated 272 mOsm/L (LOW) 03/15/22 02:44 PST Calcium Level 7.3 mg/dL (LOW) 03/15/22 02:44 PST Magnesium Level 1.6 mg/dL (LOW) 03/15/22 02:44 PST Phosphorus Level 2.6 mg/dL 03/15/22 02:44 PST Total Protein 4.5 gm/dL (LOW) 03/15/22 02:44 PST Albumin Level 1.9 gm/dL (LOW) 03/15/22 02:44 PST Globulin Level 2.6 gm/dL 03/15/22 02:44 PST A/G Ratio 0.7 (LOW) 03/15/22 02:44 PST Bilirubin, Total 1.0 mg/dL 03/15/22 02:44 PST Bilirubin, Direct 0.2 mg/dL 03/15/22 02:44 PST Bilirubin, Indirect (Calc) 0.8 mg/dL 03/15/22 02:44 PST AST 54 IntUnit/L (HIGH) 03/15/22 02:44 PST ALT 66 IntUnit/L (HIGH) 03/15/22 02:44 PST ALP 72 IntUnit/L 03/15/22 02:44 PST eGFR >90 mL/min/1.73m2 03/15/22 02:44 PST Assessment/Plan _ Altered mental status (Altered mental status, [id number] F917) Altered mental status (Altered mental status, unspecified, R41.82) Atrial fibrillation with rapid ventricular response (Unspecified atrial fibrillation, I48.91) Stroke (Cerebral infarction, unspecified, I63.9) Bacteremia -Polymicrobial bacteremia -TTENEGATIVE for endocarditis -ID on board -IV ABX Unasyn till 6 [place] then switched to Ancef as per ID -survilance blood culture A. fib with RVR -Newly onset,cardiology on board -Rate controlled continue medications and anticoagulation as per cardiology -Cardiology input appreciated -Vital signs reviewed currently stable DM -insulin -FS target 140-180 CVA -SP tPA -Currently stable -Continue telemetry monitoring Secondary prophylaxis including aspirin, Plavix, high-dose Lipitor 80 mg bedtime Hematuria -Resolved,HgB stable -UTI versus anticoagulation use -Monitoring CBC and blood transfusion to keep hemoglobin more than 7 Anemia -Hemoglobin stable -Continue monitoring CBC Orders: Photograph Wound Wound Care Wound/Enterostomal Therapist Consult [id number] Male 03/15/2022 [facility] Progress Note Patient: SHERRON SURESH Age: 76 years Legal Sex: Male : 1945 Author: DO Fernandez Mina Basic Information Time Seen: Date and Time seen:: 03/15/2022 13:58:00. no c/o. denies joint swelling or back pain. Review of Systems ROS reviewed as documented in chart Health Status Current medications: None, Active inpatient medications ACTIVE INPT MEDS: ampicillin-sulbactam (Unasyn) 3 gm IVPB Q3D-Juegqsos atorvastatin 80 mg ORAL QBedtime cholecalciferol 25 mcg ORAL DAILY digoxin 0.125 mg ORAL DAILY enoxaparin (Lovenox) 90 mg SUBQ Q12H furosemide 20 mg ORAL DAILY insulin lispro (insulin lispro Correction Scale Med (Body wt 70-100kg)) SUBQ Q6H lisinopril 10 mg ORAL DAILY metoprolol 25 mg ORAL BID pantoprazole (Protonix) 40 mg ORAL ACBkfst Pharmacy Communication N/A As directed Pharmacy Communication N/A As directed tamsulosin 0.4 mg ORAL QBedtime ACTIVE PRN MEDS: acetaminophen 650 mg ORAL Q6H glucagon 1 mg SUBQ As directed glucose (Dextrose 50% Inj 50 mL) 25 mL IV As directed glucose (Dextrose 50% Inj 50 mL) 50 mL IV As directed glucose (glucose 40% oral gel) 15 gm ORAL As directed levalbuterol (Xopenex) 1.25 mg INH Q4H metoprolol (metoprolol IV) 5 mg IV PUSH Q6H nalOXone (Narcan) 0.2 mg IV PUSH As directed traMADol 50 mg ORAL Q6H ONE TIME MEDS: None ACTIVE IV MEDS: None Problem List: Problem List Active or Inactive Problems (4) Body mass index 30+ - obesity Elevated serum cholesterol High blood pressure TIA (transient ischemic attack) Physical Examination Intake and Output Intake and Output Fluid Balance Intake and Output as of 13:58 (24 hour periods starting at 06:00) 03/15/22 03/14/22 03/13/22 Intake mL 680 400 800 Output mL 300 1800 1375 Fluid Balance 380 -1400 -575 VS/Measurements: Inpt. Vital signs (ST) Vital Signs (last 24 hrs) Last Charted Minimum Maximum Temp(?F) 97.8 (MAR 15 11:20 PST) 97.8 (MAR 14 23:22 PST) 98.4 (MAR 14 19:30 PST) Heart Rate 83 (MAR 15 11:20 PST) 80 (MAR 14 14:49 PST) H 111 (MAR 15 08:36 PST) Resp Rate 18 (MAR 15 11:20 PST) L 12 (MAR 14 15:00 PST) 20 (MAR 14 20:33 PST) SBP 120 (MAR 15 11:20 PST) 101 (MAR 15 07:41 PST) 133 (MAR 14 19:30 PST) DBP 72 (MAR 15 11:20 PST) 60 (MAR 15 07:41 PST) 77 (MAR 14 15:26 PST) SpO2 97 (MAR 15 11:20 PST) 92 (MAR 14 14:49 PST) 100 (MAR 14 20:33 PST) OXYFLOW 3 (MAR 15 11:20 PST) 2 (MAR 14 23:22 PST) 5 (MAR 14 15:00 PST) OXYDELIVERY Nasal cannula Nasal Nasal (MAR 15 11:20 PST) (MAR 14 15:26 PST) (MAR 14 15:26 PST) , Measurements 03/14/2022 05:57 PST Weight (kg) 93.5 kg Weight measured method Bed scale . aao chest gae abd soft ext warm Review / Management Laboratory Results Labs (Last four charted values) WBC H 13.10 (MAR 15) H 13.50 (MAR 14) H 15.10 (MAR 13) H 17.40 (MAR 12) Hgb L 9.2 (MAR 15) L 9.4 (MAR 14) L 10.2 (MAR 13) L 10.9 (MAR 12) Hct L 27.2 (MAR 15) L 27.7 (MAR 14) L 31.4 (MAR 13) L 33.0 (MAR 12) Plt 225 (MAR 15) 183 (MAR 14) 152 (MAR 13) L 132 (MAR 12) Na L 135 (MAR 15) L 135 (MAR 14) L 134 (MAR 13) L 131 (MAR 12) K 3.9 (MAR 15) 3.6 (MAR 14) 3.7 (MAR 13) 3.8 (MAR 12) CO2 31 (MAR 15) 29 (MAR 14) 27 (MAR 13) 28 (MAR 12) Cl 102 (MAR 15) 101 (MAR 14) L 100 (MAR 13) L 96 (MAR 12) Cr 0.7 (MAR 15) 0.8 (MAR 14) 0.8 (MAR 13) 0.8 (MAR 12) BUN 13 (MAR 15) 19 (MAR 14) 20 (MAR 13) H 30 (MAR 12) Glucose Random H 132 (MAR 15) H 184 (MAR 14) H 126 (MAR 13) H 116 (MAR 12) Mg L 1.6 (MAR 15) L 1.6 (MAR 14) L 1.6 (MAR 13) L 1.7 (MAR 12) Phos 2.6 (MAR 15) 2.7 (MAR 14) L 2.4 (MAR 13) L <1.5 (MAR 12) Ca L 7.3 (MAR 15) L 7.3 (MAR 14) L 7.5 (MAR 13) L 7.6 (MAR 12) PT H 14.8 (MAR 07) 14.2 (MAR 04) INR H 1.2 (MAR 07) H 1.2 (MAR 04) PTT 32.9 (MAR 15) 36.0 (MAR 15) 31.9 (MAR 14) 33.5 (MAR 14) DIAGNOSTIC DATA: 03/10/22: Blood culture 2/2 sets, Staphylococcus aureus, enterococcus fecalis, Citrobacter koseri. Cirtobacter koseri 03/10/22: Blood culture 2/2 sets Citrobacter koseri, Enterococcus, S. aureus: blood culture biofire enterobacteriacae, staph aureus. e faecalis 03/12/22: Blood culture 1/2 sets in progress gpc clusters: S aureus 03/13/22: Blood culture 2/2 sets in progress 03/15/22: Blood culture 2/2 sets in progress 03/10 urine culture: Greater than 100,000 colony-forming units and gram-negative vanesa. 03/10 UA: 46 WBCs, 15 RBCs. 03/04/22: MRSA screen negative. 03/06 MRI brain without contrast: Poor study. Echocardiogram 03/05/22: A bubble study not completed due to lack of cooperation, due to quality EF 55-60. No thrombus. No pericardial effusion. 03/04 CTA head and neck. No hemodynamically significant stenosis. 03/04/22 CT brain: Atrophy, no hemorrhage. 03/11/22: urine culture:>100,000 cfu/ml Klebsiella oxytoca <10,000 cfu/ml Citrobacter koseri 03/05/22: TTE Summary Technically limited study, poor acoustic windows. Due to the quality of the echocardiogram bubble study not completed. Ejection fraction is visually estimated at 55-60%. No obvious evidence of cardiac source thrombus. Mild left atrial enlargement. Right ventricle is not well visualized. Right atrium is not well visualized. Moderate to severe aortic insufficiency. Thickened mitral valve leaflets with reduced excursion. Tricuspid valve was not well visualized. Insufficient tricuspid regurgitation jet to calculate RVSP. Mild pulmonic regurgitation. Normal size aortic root. Normal size of IVC with normal inspiratory collapse. There is no evidence of pericardial effusion. 03/04/22 CTA head and neck; No evidence of hemodynamically significant stenosis in the neck. No dissection or occlusion Inflammatory changes surrounding the distal left common carotid and carotid bulb suggest prior endarterectomy. No evidence of hemodynamically significant stenosis in the head. No aneurysm or occlusion. No evidence of vascular mass. 03/04/22: ct brain Impression: Atrophy. No acute hemorrhage. Anti-Infective Medications Ordered Medications ampicillin-sulbactam, 3 gm = 1 Vial, IVPB, [id number], Indication= Bacteremia / Fungemia, INJ, 03/11/22 18:00:00 PST, 200 mL/hr, 30 min Completed Medications vancomycin, 2,000 mg, IVPB, ONCE, Indication= Bloodstream Infection, IV SOLN, 03/11/22 4:00:00 PST, Stop date 03/11/22 4:00:00 PST, 250 mL/hr, 120 min Discontinued Medications cefTRIAXone, 1 gm, IVPB, Q24H, Indication= Sepsis, INJ, 03/10/22 12:52:00 PST vancomycin, 1,000 mg, IVPB, [id number], Indication= Bloodstream Infection, IV SOLN, 03/11/22 22:00:00 PST Impression and Plan Polymicrobial bacteremia, suspect MSSA bacteremia was present on admission and other organisms are secondary to Blankenship catheter.03/05 TTE neg. No evidence of hematogenous seeding. COPD exacerbation status post methylprednisolone. Diabetes mellitus, A1c 6.1, new diagnosis. Dyslipidemia. Atrial fibrillation. Stroke, status post tPA 03/04. Atrial fibrillation with RVR. Carotid artery disease, status post left carotid endarterectomy 02/21/2022. Unasyn thru 03/18 then switch to ancef 2 g iv q 8 03/19/22 hours for 4-6 weeks. Family and patient updated. Face to face time 15 minutes. Total time spent 50 minutes. [id number] Male 03/15/2022 [facility] Progress Note Patient: SHERRON SURESH Age: 76 years Legal Sex: Male : 1945 Author: DO Fernandez Mina Basic Information Time Seen: Date and Time seen:: 03/14/2022 20:34:00. up in chair. feels good. appetite baseline. no fever, chills. sweats. Health Status Current medications: None, Active inpatient medications ACTIVE INPT MEDS: ampicillin-sulbactam (Unasyn) 3 gm IVPB [id number] atorvastatin 80 mg ORAL QBedtime cholecalciferol 25 mcg ORAL DAILY digoxin 0.125 mg ORAL DAILY enoxaparin (Lovenox) 90 mg SUBQ Q12H furosemide 20 mg ORAL DAILY insulin lispro (insulin lispro Correction Scale Med (Body wt 70-100kg)) SUBQ Q6H lisinopril 10 mg ORAL DAILY metoprolol 25 mg ORAL BID pantoprazole (Protonix) 40 mg ORAL ACBkfst Pharmacy Communication N/A As directed Pharmacy Communication N/A As directed tamsulosin 0.4 mg ORAL QBedtime ACTIVE PRN MEDS: acetaminophen 650 mg ORAL Q6H glucagon 1 mg SUBQ As directed glucose (Dextrose 50% Inj 50 mL) 25 mL IV As directed glucose (Dextrose 50% Inj 50 mL) 50 mL IV As directed glucose (glucose 40% oral gel) 15 gm ORAL As directed levalbuterol (Xopenex) 1.25 mg INH Q4H metoprolol (metoprolol IV) 5 mg IV PUSH Q6H nalOXone (Narcan) 0.2 mg IV PUSH As directed traMADol 50 mg ORAL Q6H ONE TIME MEDS: None ACTIVE IV MEDS: None Problem List: Problem List Active or Inactive Problems (4) Body mass index 30+ - obesity Elevated serum cholesterol High blood pressure TIA (transient ischemic attack) Physical Examination Intake and Output Intake and Output Fluid Balance Intake and Output as of 20:34 (24 hour periods starting at 06:00) 03/14/22 03/13/22 03/12/22 Intake mL 300 800 420 Output mL 1250 1375 950 Fluid Balance -950 -575 -530 VS/Measurements: Inpt. Vital signs (ST) Vital Signs (last 24 hrs) Last Charted Minimum Maximum Temp(?F) 98.4 (MAR 14 19:30 PST) 97.6 (MAR 13 23:29 PST) 98.6 (MAR 14 03:16 PST) Heart Rate 93 (MAR 14 20:33 PST) 68 (MAR 14 03:17 PST) H 101 (MAR 13 23:29 PST) Resp Rate 20 (MAR 14 20:33 PST) L 12 (MAR 14 15:00 PST) 20 (MAR 13 23:29 PST) SBP 133 (MAR 14 20:12 PST) 118 (MAR 14 15:26 PST) 133 (MAR 13 23:29 PST) DBP 72 (MAR 14 20:12 PST) 72 (MAR 14 19:30 PST) 78 (MAR 14 11:28 PST) SpO2 100 (MAR 14 20:33 PST) 92 (MAR 14 14:49 PST) 100 (MAR 14 20:33 PST) OXYFLOW 3 (MAR 14 20:26 PST) 2 (MAR 13 23:29 PST) 5 (MAR 14 15:00 PST) OXYDELIVERY Nasal cannula Nasal Nasal (MAR 14 19:30 PST) (MAR 13 23:29 PST) (MAR 13 23:29 PST) , Measurements 03/14/2022 05:57 PST Weight (kg) 93.5 kg Weight measured method Bed scale . nontoxic chest gae abd soft ext warm Review / Management Laboratory Results Labs (Last four charted values) WBC H 13.50 (MAR 14) H 15.10 (MAR 13) H 17.40 (MAR 12) H 23.70 (MAR 11) Hgb L 9.4 (MAR 14) L 10.2 (MAR 13) L 10.9 (MAR 12) L 10.2 (MAR 11) Hct L 27.7 (MAR 14) L 31.4 (MAR 13) L 33.0 (MAR 12) L 31.9 (MAR 11) Plt 183 (MAR 14) 152 (MAR 13) L 132 (MAR 12) L 118 (MAR 11) Na L 135 (MAR 14) L 134 (MAR 13) L 131 (MAR 12) 137 (MAR 11) K 3.6 (MAR 14) 3.7 (MAR 13) 3.8 (MAR 12) 4.4 (MAR 11) CO2 29 (MAR 14) 27 (MAR 13) 28 (MAR 12) 28 (MAR 11) Cl 101 (MAR 14) L 100 (MAR 13) L 96 (MAR 12) L 100 (MAR 11) Cr 0.8 (MAR 14) 0.8 (MAR 13) 0.8 (MAR 12) 0.9 (MAR 11) BUN 19 (MAR 14) 20 (MAR 13) H 30 (MAR 12) H 50 (MAR 11) Glucose Random H 184 (MAR 14) H 126 (MAR 13) H 116 (MAR 12) 96 (MAR 11) Mg L 1.6 (MAR 14) L 1.6 (MAR 13) L 1.7 (MAR 12) 2.3 (MAR 11) Phos 2.7 (MAR 14) L 2.4 (MAR 13) L <1.5 (MAR 12) L 2.0 (MAR 11) Ca L 7.3 (MAR 14) L 7.5 (MAR 13) L 7.6 (MAR 12) L 7.9 (MAR 11) PT H 14.8 (MAR 07) 14.2 (MAR 04) INR H 1.2 (MAR 07) H 1.2 (MAR 04) PTT 33.5 (MAR 14) 30.2 (MAR 14) 33.2 (MAR 14) 31.1 (MAR 13) DIAGNOSTIC DATA: 03/10/22: Blood culture 2/2 sets, Staphylococcus aureus, enterococcus fecalis, Citrobacter koseri. Cirtobacter koseri 03/10/22: Blood culture 2/2 sets Citrobacter koseri, Enterococcus, S. aureus: blood culture biofire enterobacteriacae, staph aureus. e faecalis 03/12/22: Blood culture 1/2 sets in progress gpc clusters: S aureus 03/13/22: Blood culture 2/2 sets in progress 03/10 urine culture: Greater than 100,000 colony-forming units and gram-negative vanesa. 03/10 UA: 46 WBCs, 15 RBCs. 03/04/22: MRSA screen negative. 03/06 MRI brain without contrast: Poor study. Echocardiogram 03/05/22: A bubble study not completed due to lack of cooperation, due to quality EF 55-60. No thrombus. No pericardial effusion. 03/04 CTA head and neck. No hemodynamically significant stenosis. 03/04/22 CT brain: Atrophy, no hemorrhage. 03/11/22: urine culture:>100,000 cfu/ml Klebsiella oxytoca <10,000 cfu/ml Citrobacter koseri 03/05/22: TTE Summary Technically limited study, poor acoustic windows. Due to the quality of the echocardiogram bubble study not completed. Ejection fraction is visually estimated at 55-60%. No obvious evidence of cardiac source thrombus. Mild left atrial enlargement. Right ventricle is not well visualized. Right atrium is not well visualized. Moderate to severe aortic insufficiency. Thickened mitral valve leaflets with reduced excursion. Tricuspid valve was not well visualized. Insufficient tricuspid regurgitation jet to calculate RVSP. Mild pulmonic regurgitation. Normal size aortic root. Normal size of IVC with normal inspiratory collapse. There is no evidence of pericardial effusion. 03/04/22 CTA head and neck; No evidence of hemodynamically significant stenosis in the neck. No dissection or occlusion Inflammatory changes surrounding the distal left common carotid and carotid bulb suggest prior endarterectomy. No evidence of hemodynamically significant stenosis in the head. No aneurysm or occlusion. No evidence of vascular mass. 03/04/22: ct brain Impression: Atrophy. No acute hemorrhage. Anti-Infective Medications Ordered Medications ampicillin-sulbactam, 3 gm = 1 Vial, IVPB, [id number], Indication= Bacteremia / Fungemia, INJ, 03/11/22 18:00:00 PST, 200 mL/hr, 30 min Completed Medications vancomycin, 2,000 mg, IVPB, ONCE, Indication= Bloodstream Infection, IV SOLN, 03/11/22 4:00:00 PST, Stop date 03/11/22 4:00:00 PST, 250 mL/hr, 120 min Discontinued Medications cefTRIAXone, 1 gm, IVPB, Q24H, Indication= Sepsis, INJ, 03/10/22 12:52:00 PST vancomycin, 1,000 mg, IVPB, [id number], Indication= Bloodstream Infection, IV SOLN, 03/11/22 22:00:00 PST Impression and Plan Polymicrobial bacteremia, suspect MSSA bacteremia was present on admission and other organisms are secondary to Blankenship catheter.03/05 TTE neg. No evidence of hematogenous seeding. COPD exacerbation status post methylprednisolone. Diabetes mellitus, A1c 6.1, new diagnosis. Dyslipidemia. Atrial fibrillation. Stroke, status post tPA 03/04. Atrial fibrillation with RVR. Carotid artery disease, status post left carotid endarterectomy 02/21/2022. No change. Rx citrobacter/e faecalis 7 days then switch to ancef 2 g iv q 8 hours for 4-6 weeks. [id number] Male 03/15/2022 [facility] Progress Note Patient: SHERRON SURESH Age: 76 years Legal Sex: MALE : 1945 Subjective patient seen and examined at the bedside.No acute complains overnight VS reviewed,labs reviewed case discussed with KYLE/NORBERTO Patient today denied fever/chill/nausea/vomiting diarrhea Patient AAO*3 ID input noted continue current ABX regimen Objective Vitals and Measurements T: 98.4 F HR: 90(Apical) HR: 92 RR: 18 BP: 133/72 SpO2: 97% O2 Delivery: Nasal cannula O2 Flow: 3L/min HT: 180.34 cm WT: 93.5 kg BMI: 26.2 kg/m2 Intake and Output as of 19:36 (24 hour periods starting at 06:00) 03/14/22 03/13/22 03/12/22 Intake mL 300 800 420 Output mL 1250 1375 950 Fluid Balance -950 -575 -530 Physical Exam General Appearance: No acute distress. HEENT: NCAT. Normal oropharynx. Neck supple without lymphadenopathy. Cardiac: Irregular rhythm. No murmurs. Lungs: Clear to auscultation. Abdomen: Soft, non-distended, non-tender. Neurological: Grossly intact motor and sensory examination. Skin: Bruising noted on the bilateral arms Inpatient Medications Scheduled: ampicillin-sulbactam 3 gm 1 Vial, IVPB, [id number] atorvastatin 40 mg Tab 80 mg 2 Tab, ORAL, QBedtime cholecalciferol (D3) 25 mcg (1,000 IU) Tab 25 mcg 1 Tab, ORAL, DAILY digoxin 0.125 mg Tab 0.125 mg 1 Tab, ORAL, DAILY enoxaparin 100 mg/mL, 1 mL Inj Syringe 90 mg 0.9 mL, SUBQ, Q12H furosemide 20 mg Tab 20 mg 1 Tab, ORAL, DAILY insulin lispro (Admelog) 100 units/mL, 3 mL MDV correction scale, SUBQ, Q6H lisinopril 10 mg Tab 10 mg 1 Tab, ORAL, DAILY metoprolol tartrate 25 mg Tab 25 mg 1 Tab, ORAL, BID pantoprazole 40 mg EC Tab 40 mg 1 Tab, ORAL, ACBkfst Pharmacy Communication No Anticoag/antithrombotic/antiplat elet, N/A, As directed Pharmacy Communication As Directed, N/A, As directed tamsulosin 0.4 mg Cap 0.4 mg 1 Cap, ORAL, QBedtime Continuous: PRN: acetaminophen 325 mg Tab 650 mg 2 ea, ORAL, Q6H Dextrose 50% Inj 50 mL Syr 25 mL, IV, As directed Dextrose 50% Inj 50 mL Syr 50 mL, IV, As directed glucagon 1 mg Inj SDV 1 mg, SUBQ, As directed Glucose 40% Oral Gel 15 gm 15 gm 37.5 mL, ORAL, As directed levalbuterol 1.25 mg/3 mL Neb Amp 3 mL 1.25 mg 3 mL, INH, Q4H metoprolol tartrate 1 mg/mL Inj 5 mL 5 mg 5 mL, IV PUSH, Q6H nalOXone 0.4 mg/mL, 1 mL Inj 0.2 mg 0.5 mL, IV PUSH, As directed traMADol 50 mg Tab 50 mg 1 Tab, ORAL, Q6H Lab Results Labs All 24H Lab Results Date Lactic Acid Level 0.9 mmol/L 03/13/22 22:08 PST Auto Neutrophil Percent 85.4 % (HIGH) 03/14/22 02:50 PST Auto Neutrophil Absolute 11.6 K/mm3 (HIGH) 03/14/22 02:50 PST Auto Lymphocyte Percent 6.0 % (LOW) 03/14/22 02:50 PST Auto Lymphocyte Absolute 0.8 K/mm3 03/14/22 02:50 PST Auto Monocyte Percent 7.4 % 03/14/22 02:50 PST Auto Monocyte Absolute 1.0 K/mm3 03/14/22 02:50 PST Auto Basophil Percent 0.9 % 03/14/22 02:50 PST Auto Basophil Absolute 0.1 K/mm3 03/14/22 02:50 PST Auto Eosinophil Percent 0.3 % 03/14/22 02:50 PST Auto Eosinophil Absolute 0.0 K/mm3 03/14/22 02:50 PST Culture Blood See Report 03/13/22 22:08 PST WBC 13.50 K/mm3 (HIGH) 03/14/22 02:50 PST RBC 3.11 M/mm3 (LOW) 03/14/22 02:50 PST HGB 9.4 gm/dL (LOW) 03/14/22 02:50 PST HCT 27.7 % (LOW) 03/14/22 02:50 PST MCV 89.4 fL 03/14/22 02:50 PST MCH 30.2 pg 03/14/22 02:50 PST MCHC 33.8 gm/dL 03/14/22 02:50 PST RDW 14.4 % 03/14/22 02:50 PST PLT 183 K/mm3 03/14/22 02:50 PST MPV 11.0 fL (HIGH) 03/14/22 02:50 PST PTT - Patient 33.5 sec 03/14/22 14:09 PST Sodium Level 135 mmol/L (LOW) 03/14/22 02:50 PST Potassium Level 3.6 mmol/L 03/14/22 02:50 PST Chloride Level 101 mmol/L 03/14/22 02:50 PST CO2/Carbon Dioxide 29 mmol/L 03/14/22 02:50 PST Anion Gap 5 mmol/L 03/14/22 02:50 PST Glucose, Random 184 mg/dL (HIGH) 03/14/22 02:50 PST POCT - Glucose (Capillary) 196 mg/dL (HIGH) 03/14/22 17:53 PST BUN 19 mg/dL 03/14/22 02:50 PST Creatinine 0.8 mg/dL 03/14/22 02:50 PST BUN/Creat Ratio 24 03/14/22 02:50 PST Osmolality, Calculated 277 mOsm/L 03/14/22 02:50 PST Calcium Level 7.3 mg/dL (LOW) 03/14/22 02:50 PST Magnesium Level 1.6 mg/dL (LOW) 03/14/22 02:50 PST Phosphorus Level 2.7 mg/dL 03/14/22 02:50 PST Total Protein 4.7 gm/dL (LOW) 03/14/22 02:50 PST Albumin Level 2.0 gm/dL (LOW) 03/14/22 02:50 PST Globulin Level 2.7 gm/dL 03/14/22 02:50 PST A/G Ratio 0.7 (LOW) 03/14/22 02:50 PST Bilirubin, Total 1.0 mg/dL 03/14/22 02:50 PST Bilirubin, Direct 0.3 mg/dL 03/14/22 02:50 PST Bilirubin, Indirect (Calc) 0.7 mg/dL 03/14/22 02:50 PST AST 40 IntUnit/L 03/14/22 02:50 PST ALT 40 IntUnit/L 03/14/22 02:50 PST ALP 74 IntUnit/L 03/14/22 02:50 PST eGFR >90 mL/min/1.73m2 03/14/22 02:50 PST Assessment/Plan Bacteremia -Polymicrobial bacteremia -TTE -ID on board -IV ABX -survilance blood culture A. fib with RVR -Newly onset,cardiology on board -TSH, lipid panel, A1c results reviewed -Cardiology input appreciated -Vital signs reviewed currently stable DM -insulin -FS target 140-180 CVA -SP tPA -Currently stable -Continue telemetry monitoring Secondary prophylaxis including aspirin, Plavix, high-dose Lipitor 80 mg bedtime Hematuria -Resolved,HgB stable -UTI versus anticoagulation use -Monitoring CBC and blood transfusion to keep hemoglobin more than 7 Anemia -Hemoglobin 9.4 -Continue monitoring CBC [id number] Male 03/15/2022 [facility] Progress Note Patient: SHERRON SURESH Age: 76 years Legal Sex: Male : 1945 Author: DO Fernandez Mina Basic Information Time Seen: Date and Time seen:: 03/13/2022 09:14:00. no n/v/d cxp ,sob Health Status Current medications: None, Home Medications (16) Active aspirin 325 mg oral enteric coated tablet 1 Tab, ORAL, DAILY (Documented 12/10/13) atenolol 50 mg oral tablet 1 Tab, ORAL, DAILY (Documented 12/10/13) atenolol 50 mg oral tablet 50 mg = 1 Tab, ORAL, DAILY (Documented 12/11/13) atorvastatin 40 mg oral tablet 1 Tab, ORAL, QBedtime (Documented 12/10/13) atorvastatin 80 mg oral tablet 80 mg = 1 Tab, ORAL, DAILY (Documented 03/07/22) cholecalciferol 1000 intl units oral tablet 25 mcg = 1 Tab, ORAL, DAILY (Documented 03/07/22) clopidogrel 75 mg oral tablet 75 mg = 1 Tab, ORAL, DAILY (Documented 03/07/22) docusate-senna 50 mg-8.6 mg oral capsule (Documented 03/07/22) Fish Oil 1000 mg oral capsule 1 Cap, ORAL, DAILY (Documented 12/10/13) furosemide 20 mg oral tablet 20 mg = 1 Tab, ORAL, DAILY (Documented 03/07/22) hydrochlorothiazide-lisinopril 12.5 mg-10 mg oral tablet 1 Tab, ORAL, DAILY (Documented 12/10/13) lisinopril 2.5 mg, ORAL, DAILY (Documented 03/07/22) metFORMIN 500 mg, ORAL, DAILY (Documented 03/07/22) metoprolol 25 mg, ORAL, DAILY (Documented 03/07/22) tamsulosin 0.4 mg oral capsule 0.4 mg = 1 Cap, ORAL, QBedtime (Documented 03/07/22) traMADol 50 mg oral tablet , PRN, Q6H (Documented 12/10/13) , Active inpatient medications ACTIVE INPT MEDS: ampicillin-sulbactam (Unasyn) 3 gm IVPB [id number] atorvastatin 80 mg ORAL QBedtime cholecalciferol 25 mcg ORAL DAILY digoxin 0.125 mg ORAL DAILY enoxaparin (Lovenox) 90 mg SUBQ Q12H furosemide 20 mg ORAL DAILY insulin lispro (insulin lispro Correction Scale Med (Body wt 70-100kg)) SUBQ Q6H lisinopril 10 mg ORAL DAILY metoprolol 25 mg ORAL BID pantoprazole (Protonix) 40 mg ORAL ACBkfst Pharmacy Communication N/A As directed Pharmacy Communication N/A As directed tamsulosin 0.4 mg ORAL QBedtime ACTIVE PRN MEDS: acetaminophen 650 mg ORAL Q6H glucagon 1 mg SUBQ As directed glucose (Dextrose 50% Inj 50 mL) 25 mL IV As directed glucose (Dextrose 50% Inj 50 mL) 50 mL IV As directed glucose (glucose 40% oral gel) 15 gm ORAL As directed levalbuterol (Xopenex) 1.25 mg INH Q4H metoprolol (metoprolol IV) 5 mg IV PUSH Q6H nalOXone (Narcan) 0.2 mg IV PUSH As directed traMADol 50 mg ORAL Q6H ONE TIME MEDS: None ACTIVE IV MEDS: None Problem List: Problem List Active or Inactive Problems (4) Body mass index 30+ - obesity Elevated serum cholesterol High blood pressure TIA (transient ischemic attack) Physical Examination Intake and Output Intake and Output Fluid Balance Intake and Output as of 21:22 (24 hour periods starting at 06:00) 03/13/22 03/12/22 03/11/22 Intake mL [phone] Output mL [phone] Fluid Balance [phone] VS/Measurements: Inpt. Vital signs (ST) Vital Signs (last 24 hrs) Last Charted Minimum Maximum Temp(?F) 98.6 (MAR 13 19:22 PST) 98.1 (MAR 13 08: PST) 99.8 (MAR 12 23:42 PST) Heart Rate 86 (MAR 13 19:23 PST) 71 (MAR 13 03:34 PST) H 100 (MAR 12 23:42 PST) Resp Rate 18 (MAR 13 19:23 PST) 18 (MAR 13 19:23 PST) 20 (MAR 13 08:01 PST) SBP 134 (MAR 13 19:22 PST) 132 (MAR 13 15:19 PST) H 159 (MAR 13 08:01 PST) DBP 65 (MAR 13 19:22 PST) 63 (MAR 13 03:34 PST) 81 (MAR 13 15:19 PST) SpO2 98 (MAR 13 19:23 PST) C 85 (MAR 12 21:44 PST) 100 (MAR 13 08:01 PST) OXYFLOW 3 (MAR 13 19:23 PST) 3 (MAR 13 08:01 PST) 5 (MAR 12 21:45 PST) OXYDELIVERY Nasal cannula Room a Room a (MAR 13:23 PST) (MAR 12 21:44 PST) (MAR 12 21:44 PST) , Measurements 03/12/2022 06:00 PST Weight (kg) 92.0 kg Weight measured method Bed scale . aao heent anicteric chest gae abd soft ext warm Review / Management Laboratory Results Labs (Last four charted values) WBC H 15.10 (MAR 13) H 17.40 (MAR 12) H 23.70 (MAR 11) H 25.80 (MAR 10) Hgb L 10.2 (MAR 13) L 10.9 (MAR 12) L 10.2 (MAR 11) L 10.9 (MAR 10) Hct L 31.4 (MAR 13) L 33.0 (MAR 12) L 31.9 (MAR 11) L 32.1 (MAR 10) Plt 152 (MAR 13) L 132 (MAR 12) L 118 (MAR 11) L 120 (MAR 10) Na L 134 (MAR 13) L 131 (MAR 12) 137 (MAR 11) L 135 (MAR 10) K 3.7 (MAR 13) 3.8 (MAR 12) 4.4 (MAR 11) 4.3 (MAR 10) CO2 27 (MAR 13) 28 (MAR 12) 28 (MAR 11) 30 (MAR 10) Cl L 100 (MAR 13) L 96 (MAR 12) L 100 (MAR 11) L 98 (MAR 10) Cr 0.8 (MAR 13) 0.8 (MAR 12) 0.9 (MAR 11) 1.1 (MAR 10) BUN 20 (MAR 13) H 30 (MAR 12) H 50 (MAR 11) H 62 (MAR 10) Glucose Random H 126 (MAR 13) H 116 (MAR 12) 96 (MAR 11) H 146 (MAR 10) Mg L 1.6 (MAR 13) L 1.7 (MAR 12) 2.3 (MAR 11) 2.2 (MAR 10) Phos L 2.4 (MAR 13) L <1.5 (MAR 12) L 2.0 (MAR 11) L 1.9 (MAR 10) Ca L 7.5 (MAR 13) L 7.6 (MAR 12) L 7.9 (MAR 11) L 8.6 (MAR 10) PT H 14.8 (MAR 07) 14.2 (MAR 04) INR H 1.2 (MAR 07) H 1.2 (MAR 04) PTT 31.1 (MAR 13) 33.4 (MAR 13) 29.7 (MAR 13) 32.5 (MAR 13) DIAGNOSTIC DATA: 03/10/22: Blood culture 2/2 sets, Staphylococcus aureus, enterococcus species, Citrobacter koseri. Cirtobacter koseri 03/10/22: Blood culture 2/2 sets Citrobacter koseri, Enterococcus, S. aureus: blood culture biofire enterobacteriacae, staph aureus. e faecalis 03/12/22: Blood culture 1/2 sets in progress gpc clusters 03/13/22: Blood culture 2/2 sets in progress 03/10 urine culture: Greater than 100,000 colony-forming units and gram-negative vanesa. 03/10 UA: 46 WBCs, 15 RBCs. 03/04/22: MRSA screen negative. 03/06 MRI brain without contrast: Poor study. Echocardiogram 03/05/22: A bubble study not completed due to lack of cooperation, due to quality EF 55-60. No thrombus. No pericardial effusion. 03/04 CTA head and neck. No hemodynamically significant stenosis. 03/04/22 CT brain: Atrophy, no hemorrhage. 03/11/22: urine culture: >100,000 cfu/ml Gram Negative Rods Culture in progress 03/05/22: TTE Summary Technically limited study, poor acoustic windows. Due to the quality of the echocardiogram bubble study not completed. Ejection fraction is visually estimated at 55-60%. No obvious evidence of cardiac source thrombus. Mild left atrial enlargement. Right ventricle is not well visualized. Right atrium is not well visualized. Moderate to severe aortic insufficiency. Thickened mitral valve leaflets with reduced excursion. Tricuspid valve was not well visualized. Insufficient tricuspid regurgitation jet to calculate RVSP. Mild pulmonic regurgitation. Normal size aortic root. Normal size of IVC with normal inspiratory collapse. There is no evidence of pericardial effusion. 03/04/22 CTA head and neck; No evidence of hemodynamically significant stenosis in the neck. No dissection or occlusion Inflammatory changes surrounding the distal left common carotid and carotid bulb suggest prior endarterectomy. No evidence of hemodynamically significant stenosis in the head. No aneurysm or occlusion. No evidence of vascular mass. 03/04/22: ct brain Impression: Atrophy. No acute hemorrhage. Impression and Plan Polymicrobial bacteremia, suspect MSSA bacteremia was present on admission and other organisms are secondary to Blankenship catheter.03/05 TTE neg. No evidence of hematogenous seeding. COPD exacerbation status post methylprednisolone. Diabetes mellitus, A1c 6.1, new diagnosis. Dyslipidemia. Atrial fibrillation. Stroke, status post tPA 03/04. Atrial fibrillation with RVR. Carotid artery disease, status post left carotid endarterectomy 02/21/2022. Surveillance blood cultures. Continue current anti-infectives. Prognosis fair. [id number] Male 03/14/2022 [facility] Emergencyist Progress Note Patient: SHERRON SURESH Age: 76 years Legal Sex: MALE : 1945 Subjective Patient seen and examined at bedside today, Questions and concerns were discussed with patient ID on board regarding bacteremia Cardiology on board regarding the A. fib and input appreciated Continue current regimen and follow-up blood culture Pending placement Objective Vitals and Measurements T: 99.1 F HR: 80(Apical) HR: 88 RR: 20 BP: 149/75 SpO2: 99% O2 Delivery: Nasal cannula O2 Flow: 3L/min FiO2: 21% HT: 180.34 cm WT: 92.0 kg BMI: 26.2 kg/m2 Intake and Output as of 12:45 (24 hour periods starting at 06:00) 03/13/22 03/12/22 03/11/22 Intake mL [phone] Output mL 795 312 4908 Fluid Balance 200 -530 -2015 Physical Exam General Appearance: No acute distress. HEENT: NCAT. Normal oropharynx. Neck supple without lymphadenopathy. Cardiac: Irregular rhythm. No murmurs. Lungs: Clear to auscultation. Abdomen: Soft, non-distended, non-tender. Neurological: Grossly intact motor and sensory examination. Skin: Bruising noted on the bilateral arms Inpatient Medications Scheduled: ampicillin-sulbactam 3 gm 1 Vial, IVPB, [id number] atorvastatin 40 mg Tab 80 mg 2 Tab, ORAL, QBedtime cholecalciferol (D3) 25 mcg (1,000 IU) Tab 25 mcg 1 Tab, ORAL, DAILY digoxin 0.125 mg Tab 0.125 mg 1 Tab, ORAL, DAILY enoxaparin 100 mg/mL, 1 mL Inj Syringe 90 mg 0.9 mL, SUBQ, Q12H furosemide 20 mg Tab 20 mg 1 Tab, ORAL, DAILY insulin lispro (Admelog) 100 units/mL, 3 mL MDV correction scale, SUBQ, Q6H lisinopril 10 mg Tab 10 mg 1 Tab, ORAL, DAILY metoprolol tartrate 25 mg Tab 25 mg 1 Tab, ORAL, BID pantoprazole 40 mg EC Tab 40 mg 1 Tab, ORAL, ACBkfst Pharmacy Communication No Anticoag/antithrombotic/antiplat elet, N/A, As directed Pharmacy Communication As Directed, N/A, As directed tamsulosin 0.4 mg Cap 0.4 mg 1 Cap, ORAL, QBedtime Continuous: sodium chloride 0.9% 1,000 mL 1,000 mL, IV, 100 mL/hr PRN: acetaminophen 325 mg Tab 650 mg 2 ea, ORAL, Q6H Dextrose 50% Inj 50 mL Syr 25 mL, IV, As directed Dextrose 50% Inj 50 mL Syr 50 mL, IV, As directed glucagon 1 mg Inj SDV 1 mg, SUBQ, As directed Glucose 40% Oral Gel 15 gm 15 gm 37.5 mL, ORAL, As directed levalbuterol 1.25 mg/3 mL Neb Amp 3 mL 1.25 mg 3 mL, INH, Q4H metoprolol tartrate 1 mg/mL Inj 5 mL 5 mg 5 mL, IV PUSH, Q6H nalOXone 0.4 mg/mL, 1 mL Inj 0.2 mg 0.5 mL, IV PUSH, As directed traMADol 50 mg Tab 50 mg 1 Tab, ORAL, Q6H Lab Results Labs All 24H Lab Results Date Auto NRBC % 0.1 % 03/13/22 02:57 PST Auto Neutrophil Percent 85.4 % (HIGH) 03/13/22 02:57 PST Auto Neutrophil Absolute 12.9 K/mm3 (HIGH) 03/13/22 02:57 PST Auto Lymphocyte Percent 5.8 % (LOW) 03/13/22 02:57 PST Auto Lymphocyte Absolute 0.9 K/mm3 03/13/22 02:57 PST Auto Monocyte Percent 8.2 % 03/13/22 02:57 PST Auto Monocyte Absolute 1.2 K/mm3 03/13/22 02:57 PST Auto Basophil Percent 0.5 % 03/13/22 02:57 PST Auto Basophil Absolute 0.1 K/mm3 03/13/22 02:57 PST Auto Eosinophil Percent 0.1 % 03/13/22 02:57 PST Auto Eosinophil Absolute 0.0 K/mm3 03/13/22 02:57 PST WBC 15.10 K/mm3 (HIGH) 03/13/22 02:57 PST RBC 3.45 M/mm3 (LOW) 03/13/22 02:57 PST HGB 10.2 gm/dL (LOW) 03/13/22 02:57 PST HCT 31.4 % (LOW) 03/13/22 02:57 PST MCV 91.1 fL 03/13/22 02:57 PST MCH 29.6 pg 03/13/22 02:57 PST MCHC 32.5 gm/dL 03/13/22 02:57 PST RDW 14.4 % 03/13/22 02:57 PST PLT 152 K/mm3 03/13/22 02:57 PST MPV 10.2 fL 03/13/22 02:57 PST PTT - Patient 29.7 sec 03/13/22 08:13 PST Sodium Level 134 mmol/L (LOW) 03/13/22 02:57 PST Potassium Level 3.7 mmol/L 03/13/22 02:57 PST Chloride Level 100 mmol/L (LOW) 03/13/22 02:57 PST CO2/Carbon Dioxide 27 mmol/L 03/13/22 02:57 PST Anion Gap 7 mmol/L 03/13/22 02:57 PST Glucose, Random 126 mg/dL (HIGH) 03/13/22 02:57 PST POCT - Glucose (Capillary) 108 mg/dL 03/13/22 11:55 PST BUN 20 mg/dL 03/13/22 02:57 PST Creatinine 0.8 mg/dL 03/13/22 02:57 PST Calcium Level 7.5 mg/dL (LOW) 03/13/22 02:57 PST Magnesium Level 1.6 mg/dL (LOW) 03/13/22 02:57 PST Phosphorus Level 2.4 mg/dL (LOW) 03/13/22 02:57 PST Total Protein 5.1 gm/dL (LOW) 03/13/22 02:57 PST Albumin Level 2.3 gm/dL (LOW) 03/13/22 02:57 PST Globulin Level 2.8 gm/dL 03/13/22 02:57 PST A/G Ratio 0.8 (LOW) 03/13/22 02:57 PST Bilirubin, Total 1.6 mg/dL (HIGH) 03/13/22 02:57 PST Bilirubin, Direct 0.5 mg/dL 03/13/22 02:57 PST Bilirubin, Indirect (Calc) 1.1 mg/dL 03/13/22 02:57 PST AST 19 IntUnit/L 03/13/22 02:57 PST ALT 25 IntUnit/L 03/13/22 02:57 PST ALP 80 IntUnit/L 03/13/22 02:57 PST eGFR >90 mL/min/1.73m2 03/13/22 02:57 PST Assessment/Plan A. fib with RVR -Newly onset -TSH, lipid panel, A1c results reviewed -Cardiology input appreciated -Vital signs reviewed currently stable -, Continue telemetry monitoring Bacteremia -Likely due to the UTI -Citrobacter koseri Staphylococcus aureus Enterococcus species -We will follow-up with infectious disease regarding the treatment -Currently on IV Unasyn DM -insulin -FS target 140-180 CVA -SP tPA -Currently stable -Continue telemetry monitoring Secondary prophylaxis including aspirin, Plavix, high-dose Lipitor 80 mg bedtime Hematuria -Improved compared to yesterday -UTI versus anticoagulation use -Monitoring CBC and blood transfusion to keep hemoglobin more than 7 Anemia -Hemoglobin 10. 2 -[place] [id number] Male 03/13/2022 [facility] Consultation Patient: MAYRA SURESH Age: 76 years Legal Sex: MALE : 1945 _ Patient: SHERRON SURESH Age: 76 years Legal Sex: MALE : 1945 Cardiology Consultation Reason for Consultation 1. Palpitations History of Present Illness Cardiovascular: Patient presents with c/o palpitations for more than 24 hours feels heart racing, pounding in the chest, with exertion, Severity: mild to moderate, Onset: insidious. No prior history of AFIBB. Denies : Chest Pain. shortness of breath. dizziness. leg edema. fatigue. cyanosis. diaphoresis. syncope. Claudication. Respiratory: Denies : cough. fever. seasonal nasal stuffiness. ear pain. postnasal drip. headache. chest congestion. epistaxis. rhinorrhea. Gastroenterology: Denies : dysphagia. abdominal pain. heartburn. nausea. vomiting. constipation. diarrhea. fever. abdominal distension. blood in stool. hematemesis. Neurology: Denies : headache. head injury. seizures. tingling/ numbness. paraesthesias. weakness. dizziness. speech difficulty. tremors. memory loss. Endocrinology: Denies : myalgias. fatigue. weight gain. weight loss. flushing. polyuria. polydipsia. appetite change. tingling, numbness. General/Constitutional: Denies : fever. chills. weight loss. weakness. fatigue. ENT: Denies : tinnitus. vertigo. loss of hearing. drainage from ear. ear pain. nasal discharge. epistaxis. nasal septal deviation. sore throat. hoarseness of voice. Ophthalmology: Denies : drainage. foreign body sensation. eye pain. eye irritation. diminished vision. contact with irritant. burning sensation. fever. itching. Infectious Diseases: Denies : chills. fever. frequent infections. chronic cough. skin infections. Genitourinary: Denies : frequent urination. burning w urination. Incontinence. Positive for hematuria. flank pain. renal colic. abdominal pain. fever. Pelvic Pain. Dermatology: Denies : rash. moles. acne. laceration. ulcer. redness. itching. h/o insect bite. contact with irritant. h/o treatment. warts. Psychiatric: Denies : unusual stress. sleep disturbances. weight gain. weight loss. appetite change. low energy level. depressed mood. feeling overwhelmed. crying spells. thoughts of hurting self. Current Medications See [employer] PMS[facility]: [facility] Review of Systems CONSTITUTIONAL: no weight gain. no loss of appetite. no fever. no weakness. no weight loss. no chills. OPTHALMOLOGY: no diminished vision. no eye irritation. no drainage from eyes. no blurring of vision. no seasonal eye sx. no dander related eye sx. ENT: no cold. no cough. no coughing blood. no nose bleed. no hearing loss. no change in voice. no sore throat. no ringing in ears. no snoring. no tinnitus. no vertigo. no epistaxis. no hoarseness. CARDIOVASCULAR: no chest pain, no. no diaphoresis. no claudication. no PND. no orthopnea. no exertional dyspnea. no ascites. no cyanosis. no phlebitis. no rheumatic fever. no syncope. no shortness of breath. palpitations yes. no leg swelling. no dizziness. no varicose veins. RESPIRATORY: no cough. no wheezing. no asthma. no hemoptysis. no pneumonia. no night sweats. GASTROENTEROLOGY: no nausea. no heartburn. no hematemesis. no jaundice. no hernia. no hemorrhoids. no loss of appetite. no change in weight. no vomiting. no bloating/belching. no difficulty swallowing. no abdominal pain. no diarrhea. no constipation. no change in bowel habits. no blood in stool. UROLOGY: no difficulty urinating. no blood in urine. no urinary urgency. no frequent urination. no urinary incontinence. no voiding dysfunction. no recurrent UTI. no nocturia. no renal colic. no passage of stones. MUSCULOSKELETAL: no joint swelling. no joint pain. no leg cramps. no joint stiffness. no weakness. no atrophy. NEUROLOGY: no headache. no tingling and numbness. no seizures. no insomnia. no memory loss. no dizziness. no syncope. no weakness. no paralysis. no tremors. no incoordination. no gait disturbance. no paresthesias. no atrophy of muscles. ENDOCRINOLOGY: no fatigue. no excessive sweating. no excessive thirst. no excessive urination. no weight loss. no sleep disturbance. no cold intolerance. no heat intolerance. HEMATOLOGY/LYMPH: no swollen glands. no fatigue. no loss of appetite. no anemia. no bleeding. no bruising. ALLERGY/IMMUNOLOGY: no runny nose. no scratchy throat. no itchy eyes. no fullness in ears. no sinus congestion. no stuffy nose. no dermatitis. no urticaria. no hay fever. no angioedema. no food allergy. no pollen sensitivity. DERMATOLOGY: no rash. no change in color of moles. no lumps. no dry or sensitive skin. no hives. Physical Examination GENERAL: appearance well nourished. HEENT: head normocephalic. sclera normal. pupils ERLA. EOM intact. NECK: neck supple. thyroid not enlarged. cervical lymph nodes normal. ROM normal. Bruit absent. HEART: PMI within mid clavicular line, normal. rhythm regular. murmurs none. heart sounds normal S1 and S2. clicks none. CHEST: shape and expansion normal. breath sounds normal. percussion normal. rales no. wheezes no. ABDOMEN: shape normal. scars no. guarding no. tenderness no. masses no. liver, spleen not palpable. BACK: spine normal. CVA tenderness no. S I joints non tender. SLR normal. EXTREMITIES: edema no. cyanosis no. clubbing no. tremors no. pulses 2+ bilateral. NEUROLOGICAL: sensory normal. motor normal strength bilaterally. coordination normal. reflexes 2+ bilaterally. MUSCULOSKELETAL: upper extremity joints normal. lower extremity joints normal. cervical spines normal. L-S spines normal. Assessments 1. Palpitations 2. Atrial Fibrillation Paroxysmal Treatment Based on my evaluation, medical therapy is advised for treating the condition which includes a rhythm converting agent along with rate controlling medication if needed. Anticoagulation to prevent systemic thromboembolism should be instituted due to high risk conditions. FU on OP basis. Electronically signed by Gurpreet Chang M.D., F.A.C.C. [id number] Male 03/13/2022 [facility] Progress Note Patient: SHERRON SURESH Age: 76 years Legal Sex: Male : 1945 Author: DO Fernandez Mina Basic Information Time Seen: Date and Time seen:: 03/13/2022 09:14:00. Health Status Current medications: None, Active inpatient medications ACTIVE INPT MEDS: ampicillin-sulbactam (Unasyn) 3 gm IVPB [id number] atorvastatin 80 mg ORAL QBedtime cholecalciferol 25 mcg ORAL DAILY digoxin 0.125 mg ORAL DAILY enoxaparin (Lovenox) 90 mg SUBQ Q12H furosemide 20 mg ORAL DAILY insulin lispro (insulin lispro Correction Scale Med (Body wt 70-100kg)) SUBQ Q6H lisinopril 2.5 mg ORAL DAILY metoprolol 25 mg ORAL BID pantoprazole (Protonix) 40 mg ORAL ACBkfst Pharmacy Communication N/A As directed Pharmacy Communication N/A As directed tamsulosin 0.4 mg ORAL QBedtime ACTIVE PRN MEDS: acetaminophen 650 mg ORAL Q6H glucagon 1 mg SUBQ As directed glucose (Dextrose 50% Inj 50 mL) 25 mL IV As directed glucose (Dextrose 50% Inj 50 mL) 50 mL IV As directed glucose (glucose 40% oral gel) 15 gm ORAL As directed levalbuterol (Xopenex) 1.25 mg INH Q4H metoprolol (metoprolol IV) 5 mg IV PUSH Q6H nalOXone (Narcan) 0.2 mg IV PUSH As directed traMADol 50 mg ORAL Q6H ONE TIME MEDS: None ACTIVE IV MEDS: sodium chloride 0.9% 1,000 mL (Normal Saline 0.9% 1,000 mL) 1,000 mL 100 mL/hr Problem List: Problem List Active or Inactive Problems (4) Body mass index 30+ - obesity Elevated serum cholesterol High blood pressure TIA (transient ischemic attack) Physical Examination Intake and Output Intake and Output Fluid Balance Intake and Output as of :13 (24 hour periods starting at 06:00) 03/13/22 03/12/22 03/11/22 Intake mL 511 477 7192 Output mL 0 950 3400 Fluid Balance 100 VS/Measurements: Inpt. Vital signs (ST) Vital Signs (last 24 hrs) Last Charted Minimum Maximum Temp(?F) 98.1 (MAR 13 08:01 PST) 97.9 (MAR 12 15:00 PST) 99.8 (MAR 12 23:42 PST) Heart Rate 89 (MAR 13 08:01 PST) 71 (MAR 13 03:34 PST) H 113 (MAR 12 09:28 PST) Resp Rate 20 (MAR 13 08:01 PST) 18 (MAR 12 21:15 PST) 20 (MAR 12 11:29 PST) SBP H 159 (MAR 13 08:01 PST) 122 (MAR 12 11:29 PST) H 159 (MAR 13 08:01 PST) DBP 80 (MAR 13 08:01 PST) L 55 (MAR 12 19:58 PST) 80 (MAR 13 08:01 PST) SpO2 100 (MAR 13 08:01 PST) C 85 (MAR 12 21:44 PST) 100 (MAR 13 08:01 PST) OXYFIO2 21 (MAR 12 21:20 PST) 21 (MAR 12 21:15 PST) 21 (MAR 12 21:15 PST) OXYFLOW 3 (MAR 13 08:01 PST) 3 (MAR 13 08:01 PST) 5 (MAR 12 21:45 PST) OXYDELIVERY Nasal cannula Room a Room a (MAR 13 08:01 PST) (MAR 12 11:29 PST) (MAR 12 11:29 PST) , Measurements 03/12/2022 06:00 PST Weight (kg) 92.0 kg Weight measured method Bed scale . Review / Management Laboratory Results Labs (Last four charted values) WBC H 15.10 (MAR 13) H 17.40 (MAR 12) H 23.70 (MAR 11) H 25.80 (MAR 10) Hgb L 10.2 (MAR 13) L 10.9 (MAR 12) L 10.2 (MAR 11) L 10.9 (MAR 10) Hct L 31.4 (MAR 13) L 33.0 (MAR 12) L 31.9 (MAR 11) L 32.1 (MAR 10) Plt 152 (MAR 13) L 132 (MAR 12) L 118 (MAR 11) L 120 (MAR 10) Na L 134 (MAR 13) L 131 (MAR 12) 137 (MAR 11) L 135 (MAR 10) K 3.7 (MAR 13) 3.8 (MAR 12) 4.4 (MAR 11) 4.3 (MAR 10) CO2 27 (MAR 13) 28 (MAR 12) 28 (MAR 11) 30 (MAR 10) Cl L 100 (MAR 13) L 96 (MAR 12) L 100 (MAR 11) L 98 (MAR 10) Cr 0.8 (MAR 13) 0.8 (MAR 12) 0.9 (MAR 11) 1.1 (MAR 10) BUN 20 (MAR 13) H 30 (MAR 12) H 50 (MAR 11) H 62 (MAR 10) Glucose Random H 126 (MAR 13) H 116 (MAR 12) 96 (MAR 11) H 146 (MAR 10) Mg L 1.6 (MAR 13) L 1.7 (MAR 12) 2.3 (MAR 11) 2.2 (MAR 10) Phos L 2.4 (MAR 13) L <1.5 (MAR 12) L 2.0 (MAR 11) L 1.9 (MAR 10) Ca L 7.5 (MAR 13) L 7.6 (MAR 12) L 7.9 (MAR 11) L 8.6 (MAR 10) PT H 14.8 (MAR 07) 14.2 (MAR 04) INR H 1.2 (MAR 07) H 1.2 (MAR 04) PTT 29.7 (MAR 13) 32.5 (MAR 13) 30.4 (MAR 12) 31.9 (MAR 12) 03/10/22: Blood culture 2/2 sets Citrobacter koseri, Enterococcus, S. aureus: blood culture biofire enterobacteriacae, staph aureus. e faecalis 03/12/22: Blood culture 2/2 sets in progress 03/11/22: urine culture: >100,000 cfu/ml Gram Negative Rods Culture in progress 03/05/22: TTE Summary Technically limited study, poor acoustic windows. Due to the quality of the echocardiogram bubble study not completed. Ejection fraction is visually estimated at 55-60%. No obvious evidence of cardiac source thrombus. Mild left atrial enlargement. Right ventricle is not well visualized. Right atrium is not well visualized. Moderate to severe aortic insufficiency. Thickened mitral valve leaflets with reduced excursion. Tricuspid valve was not well visualized. Insufficient tricuspid regurgitation jet to calculate RVSP. Mild pulmonic regurgitation. Normal size aortic root. Normal size of IVC with normal inspiratory collapse. There is no evidence of pericardial effusion. 03/04/22 CTA head and neck; No evidence of hemodynamically significant stenosis in the neck. No dissection or occlusion Inflammatory changes surrounding the distal left common carotid and carotid bulb suggest prior endarterectomy. No evidence of hemodynamically significant stenosis in the head. No aneurysm or occlusion. No evidence of vascular mass. 03/04/22: ct brain Impression: Atrophy. No acute hemorrhage. 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 [id number] Male 03/13/2022 [facility] Consultation REFERRING PHYSICIAN: Hospitalist. CONSULTING PHYSICIAN: Adin Fernandez DO REASON FOR CONSULTATION: Polymicrobial bacteremia. HISTORY OF PRESENT ILLNESS: This is a pleasant 76-year-old male. His history is obtained from spouse at bedside and family. With respect to the patient's history, he was in his usual state of health until 03/04, when he developed left-sided arm shaking and fell back on the couch. He was brought in by ambulance and upon arrival, patient was afebrile, tachycardic in AFib and worked up for a stroke and was negative. Patient incidentally underwent a left carotid endarterectomy on the at the [facility] in [place]. Patient denies any fevers, chills or sweats. During the course of the hospitalization, he required digoxin, diltiazem and methylprednisolone and on admission, patient received alteplase for acute stroke. Imaging has been negative during the course of the patient's hospitalization. During the course of the patient's hospitalization, patient became briefly hypotensive, tachycardic and blood cultures were ordered and are positive for Citrobacter koseri, Staph aureus and enterococcus species. Blood culture BioFire is notable for enterobacteriaceae, Staphylococcus aureus and E. faecalis. Urine culture has a gram-negative vanesa. His hospitalization was complicated by hematuria and attempt to remove the Blankenship catheter on Friday was unsuccessful. It had be replaced. I am asked to see this patient in infectious diseases perspective and make additional recommendations. REVIEW OF SYSTEMS: CONSTITUTIONAL: Patient's family denies fevers, chills, or sweats. EYES, EARS, NOSE, MOUTH, AND THROAT: No visual or auditory change. RESPIRATORY: No cough. CARDIOVASCULAR: Negative. GASTROINTESTINAL: No diarrhea. GENITOURINARY: Negative. MUSCULOSKELETAL: Negative. INTEGUMENT: Patient has friable skin. NEUROLOGIC: Negative. PSYCHIATRIC: Negative. ALLERGIC AND IMMUNOLOGIC: Negative. ALLERGIES: HE HAS NO KNOWN DRUG ALLERGIES. PAST MEDICAL HISTORY: Carotid artery disease, status post left carotid endarterectomy; stroke in mid-February, no deficit; TIAs; hypertension; hypercholesterolemia; obesity; tobaccoism. No history of COVID, tuberculosis, Valley fever, HIV, hepatitis, herpes, shingles, rheumatic fever, pneumonia, meningitis, urinary tract infection. SURGICAL HISTORY: Left carotid endarterectomy 02/21/22. FAMILY HISTORY: Father , stomach ulcer. Mother , DKA. Two brothers have diabetes. SOCIAL HISTORY: Patient is a tobacco smoker, last cigarette prior to admission. No alcohol or drug abuse. He is to his third , has 2 children. 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 He is a [place] resident. Primary: He is followed by the [facility]. OUTPATIENT MEDICATIONS: Reviewed. INPATIENT MEDICATIONS: Include tenecteplase 23.5, 03/04; Flomax 0.4 daily, 03/06 to present; 03/11 vancomycin 2 g; metoprolol; Protonix; methylprednisolone 60 b.i.d. 03/05 and 60 daily, 03/06-03/10; amp/sulbactam 3 g IV q. 6 hours, 03/11 to present. PHYSICAL EXAMINATION: GENERAL: Patient is pleasant, appears his stated age. VITAL SIGNS: Blood pressure 128/79, pulse 90, respiratory rate 20, T-current 97.9. HEENT: PERRL. Dentures. No conjunctival petechiae or thrush. Hair distribution is normal. NECK: Without JVD. Left CEA site is unremarkable. HEART: Irregular, without murmurs, rubs or gallops. ABDOMEN: Soft, without tenderness to palpation. Reducible umbilical hernia. EXTREMITIES: Perfused. INTEGUMENT: Patient has ecchymosis of bilateral upper extremities. IV site is unremarkable. There is no obvious stigmata of endocarditis. No synovitis. DIAGNOSTIC DATA: 03/12: White count 17.4, platelet count 132,000. Sodium 131, total bilirubin 1.6. 03/10/22: Blood culture 2/2 sets, Staphylococcus aureus, enterococcus species, Citrobacter koseri. Cirtobacter koseri Amikacin less than or equal to 16; ampicillin/sulbactam less than or equal to 8/4; , cefepime, cefuroxime, gentamicin, tobramycin less than or equal to 4, cefazolin, cefoxitin less than or equal to 8; cefotaxime, levofloxacin less than or equal to 2; ceftazidime, ceftriaxone, ciprofloxacin, imipenem, ertapenem, meropenem less than or equal to 1; pip/tazo less than or equal to 615; trimethoprim/sulfa less than or equal to 2/38. 03/10 urine culture: Greater than 100,000 colony-forming units and gram-negative vanesa. 03/10 UA: 46 WBCs, 15 RBCs. 03/04: White count 12.7. Sodium 138. A1c 6.1. MRSA screen negative. 03/06 MRI brain without contrast: Poor study. Echocardiogram 03/05/22: A bubble study not completed due to lack of cooperation, due to quality EF 55-60. No thrombus. No pericardial effusion. 03/04 CTA head and neck. No hemodynamically significant stenosis. 03/04/22 CT brain: Atrophy, no hemorrhage. IMPRESSION: 1. Polymicrobial bacteremia, suspect methicillin susceptible Staphylococcus aureus bacteremia was present on admission and other organisms are secondary to Blankenship catheter. Rule out endocarditis. No evidence of hematogenous seeding. 2. Chronic obstructive pulmonary disease exacerbation, status post methylprednisolone. 3. Diabetes mellitus, A1c 6.1, new diagnosis. 4. Dyslipidemia. 5. Atrial fibrillation. 6. Stroke, status post tPA 03/04. 7. Atrial fibrillation with RVR. 8. Carotid artery disease, status post left carotid endarterectomy 02/21/2022. PLAN: Continue Unasyn. Surveillance blood cultures ordered. Echo ordered. This is a difficult case to sort out; however, based on the clinical review of this case, I suspect that the MSSA was likely present on admission, which led to the patient's altered sensorium and atrial fibrillation. This is probably masked by the patient's corticosteroids. The E. faecalis and citrobacter likely a complication of a catheter-associated urinary tract infection and The patient has had hematuria; that has now since resolved, but that would be my suspicion for the introduction of the source, especially in light of the fact that there is only gram-negative vanesa identified from the urine at this point. All labs and films reviewed. [id number] care time 40 minutes. [id number]-face care time 2 hours. Thank you for allowing us to see this patient for infectious disease consultation. DO Paula Adorno MR, 03/12/2022 20:01:57 Conf # [id number] GS/DK, 03/12/2022 21:03:00 Dictation ID [id number] Male 03/13/2022 [facility] Progress Note Patient: SHERRON SURESH Age: 76 years Legal Sex: Male : 1945 Author: DO Fernandez Mina Basic Information Time Seen: Date and Time seen:: 03/12/2022 19:43:00. [id number] Health Status Current medications: Home Medications (16) Active aspirin 325 mg oral enteric coated tablet 1 Tab, ORAL, DAILY (Documented 12/10/13) atenolol 50 mg oral tablet 1 Tab, ORAL, DAILY (Documented 12/10/13) atenolol 50 mg oral tablet 50 mg = 1 Tab, ORAL, DAILY (Documented 12/11/13) atorvastatin 40 mg oral tablet 1 Tab, ORAL, QBedtime (Documented 12/10/13) atorvastatin 80 mg oral tablet 80 mg = 1 Tab, ORAL, DAILY (Documented 03/07/22) cholecalciferol 1000 intl units oral tablet 25 mcg = 1 Tab, ORAL, DAILY (Documented 03/07/22) clopidogrel 75 mg oral tablet 75 mg = 1 Tab, ORAL, DAILY (Documented 03/07/22) docusate-senna 50 mg-8.6 mg oral capsule (Documented 03/07/22) Fish Oil 1000 mg oral capsule 1 Cap, ORAL, DAILY (Documented 12/10/13) furosemide 20 mg oral tablet 20 mg = 1 Tab, ORAL, DAILY (Documented 03/07/22) hydrochlorothiazide-lisinopril 12.5 mg-10 mg oral tablet 1 Tab, ORAL, DAILY (Documented 12/10/13) lisinopril 2.5 mg, ORAL, DAILY (Documented 03/07/22) metFORMIN 500 mg, ORAL, DAILY (Documented 03/07/22) metoprolol 25 mg, ORAL, DAILY (Documented 03/07/22) tamsulosin 0.4 mg oral capsule 0.4 mg = 1 Cap, ORAL, QBedtime (Documented 03/07/22) traMADol 50 mg oral tablet , PRN, Q6H (Documented 12/10/13) , Active inpatient medications ACTIVE INPT MEDS: ampicillin-sulbactam (Unasyn) 3 gm IVPB [id number] atorvastatin 80 mg ORAL QBedtime cholecalciferol 25 mcg ORAL DAILY digoxin 0.125 mg ORAL DAILY enoxaparin (Lovenox) 90 mg SUBQ Q12H furosemide 20 mg ORAL DAILY insulin lispro (insulin lispro Correction Scale Med (Body wt 70-100kg)) SUBQ Q6H lisinopril 2.5 mg ORAL DAILY metoprolol 25 mg ORAL BID pantoprazole (Protonix) 40 mg ORAL ACBkfst Pharmacy Communication N/A As directed Pharmacy Communication N/A As directed tamsulosin 0.4 mg ORAL QBedtime ACTIVE PRN MEDS: acetaminophen 650 mg ORAL Q6H glucagon 1 mg SUBQ As directed glucose (Dextrose 50% Inj 50 mL) 25 mL IV As directed glucose (Dextrose 50% Inj 50 mL) 50 mL IV As directed glucose (glucose 40% oral gel) 15 gm ORAL As directed levalbuterol (Xopenex) 1.25 mg INH Q4H metoprolol (metoprolol IV) 5 mg IV PUSH Q6H nalOXone (Narcan) 0.2 mg IV PUSH As directed traMADol 50 mg ORAL Q6H ONE TIME MEDS: None ACTIVE IV MEDS: sodium chloride 0.9% 1,000 mL (Normal Saline 0.9% 1,000 mL) 1,000 mL 100 mL/hr Problem List: Problem List Active or Inactive Problems (4) Body mass index 30+ - obesity Elevated serum cholesterol High blood pressure TIA (transient ischemic attack) Physical Examination Intake and Output Intake and Output Fluid Balance Intake and Output as of 19:25 (24 hour periods starting at 06:00) 03/12/22 03/11/22 03/10/22 Intake mL 200 1384 3271 Output mL 0 3400 4000 Fluid Balance 726 VS/Measurements: Inpt. Vital signs (ST) Vital Signs (last 24 hrs) Last Charted Minimum Maximum Temp(?F) 97.9 (MAR 12 15:00 PST) 97.9 (MAR 11 23:45 PST) 99.3 (MAR 12 03:41 PST) Heart Rate 90 (MAR 12 16:48 PST) 89 (MAR 12 11:29 PST) H 113 (MAR 11 19:33 PST) Resp Rate 20 (MAR 12 16:48 PST) 19 (MAR 11 23:46 PST) 20 (MAR 11 19:33 PST) SBP 128 (MAR 12 16:48 PST) 109 (MAR 11 19:32 PST) H 145 (MAR 12 03:42 PST) DBP 79 (MAR 12 16:48 PST) 60 (MAR 11 19:32 PST) 79 (MAR 12 15:00 PST) SpO2 95 (MAR 12 15:00 PST) 90 (MAR 11 23:46 PST) 95 (MAR 12 15:00 PST) OXYDELIVERY Room air Room a Room a (MAR 12 15:00 PST) (MAR 11 19:33 PST) (MAR 11 19:33 PST) , Measurements 03/12/2022 06:00 PST Weight (kg) 92.0 kg Weight measured method Bed scale 03/11/2022 09:00 PST Weight (kg) 90.1 kg Weight measured method Bed scale . Review / Management Laboratory Results Labs (Last four charted values) WBC H 17.40 (MAR 12) H 23.70 (MAR 11) H 25.80 (MAR 10) H 30.30 (MAR 09) Hgb L 10.9 (MAR 12) L 10.2 (MAR 11) L 10.9 (MAR 10) L 9.6 (MAR 09) Hct L 33.0 (MAR 12) L 31.9 (MAR 11) L 32.1 (MAR 10) L 29.2 (MAR 09) Plt L 132 (MAR 12) L 118 (MAR 11) L 120 (MAR 10) L 123 (MAR 09) Na L 131 (MAR 12) 137 (MAR 11) L 135 (MAR 10) L 131 (MAR 09) K 3.8 (MAR 12) 4.4 (MAR 11) 4.3 (MAR 10) 4.1 (MAR 09) CO2 28 (MAR 12) 28 (MAR 11) 30 (MAR 10) 29 (MAR 09) Cl L 96 (MAR 12) L 100 (MAR 11) L 98 (MAR 10) L 98 (MAR 09) Cr 0.8 (MAR 12) 0.9 (MAR 11) 1.1 (MAR 10) 1.4 (MAR 09) BUN H 30 (MAR 12) H 50 (MAR 11) H 62 (MAR 10) H 72 (MAR 09) Glucose Random H 116 (MAR 12) 96 (MAR 11) H 146 (MAR 10) H 157 (MAR 09) Mg L 1.7 (MAR 12) 2.3 (MAR 11) 2.2 (MAR 10) 2.0 (MAR 09) Phos L <1.5 (MAR 12) L 2.0 (MAR 11) L 1.9 (MAR 10) L 2.3 (MAR 09) Ca L 7.6 (MAR 12) L 7.9 (MAR 11) L 8.6 (MAR 10) L 8.1 (MAR 09) PT H 14.8 (MAR 07) 14.2 (MAR 04) INR H 1.2 (MAR 07) H 1.2 (MAR 04) PTT 31.9 (MAR 12) 27.6 (MAR 12) 28.6 (MAR 12) 26.9 (MAR 11) 03/10/22: Blood culture 2/2 sets Citrobacter koseri, Enterococcus, S. aureus: blood culture biofire enterobacteriacae, staph aureus. e faecalis 03/12/22: Blood culture 2/2 sets in progress 03/11/22: urine culture: >100,000 cfu/ml Gram Negative Rods Culture in progress 03/05/22: TTE Summary Technically limited study, poor acoustic windows. Due to the quality of the echocardiogram bubble study not completed. Ejection fraction is visually estimated at 55-60%. No obvious evidence of cardiac source thrombus. Mild left atrial enlargement. Right ventricle is not well visualized. Right atrium is not well visualized. Moderate to severe aortic insufficiency. Thickened mitral valve leaflets with reduced excursion. Tricuspid valve was not well visualized. Insufficient tricuspid regurgitation jet to calculate RVSP. Mild pulmonic regurgitation. Normal size aortic root. Normal size of IVC with normal inspiratory collapse. There is no evidence of pericardial effusion. 03/04/22 CTA head and neck; No evidence of hemodynamically significant stenosis in the neck. No dissection or occlusion Inflammatory changes surrounding the distal left common carotid and carotid bulb suggest prior endarterectomy. No evidence of hemodynamically significant stenosis in the head. No aneurysm or occlusion. No evidence of vascular mass. 03/04/22: ct brain Impression: Atrophy. No acute hemorrhage. [id number] Male 03/13/2022 [facility] Emergency[facility] Progress Note Patient: SHERRON SURESH Age: 76 years Legal Sex: MALE : 1945 Subjective patient seen and examined at the bedside.No acute complains overnight VS reviewed,labs reviewed case discussed with CM/SW Patient today denied fever/chill/nausea/vomiting diarrhea Patient AAO*3 Hematuria improved ID on board regarding bacteremia Cardiology consulted for A. fib with RVR and input appreciated Continue current anticoagulation therapy and monitoring CBC closely Objective Vitals and Measurements T: 98.3 F HR: 113(Apical) HR: 89 RR: 20 BP: 122/66 SpO2: 94% O2 Delivery: Room air HT: 180.34 cm WT: 92.0 kg BMI: 26.2 kg/m2 Intake and Output as of 13:04 (24 hour periods starting at 06:00) 03/12/22 03/11/22 03/10/22 Intake mL 100 1384 3271 Output mL 0 3400 4000 Fluid Balance Physical Exam General Appearance: No acute distress. HEENT: NCAT. Normal oropharynx. Neck supple without lymphadenopathy. Cardiac: Irregular rhythm. No murmurs. Lungs: Clear to auscultation. Abdomen: Soft, non-distended, non-tender. Neurological: Grossly intact motor and sensory examination. Skin: Bruising noted on the left arms and the back Inpatient Medications Scheduled: ampicillin-sulbactam 3 gm 1 Vial, IVPB, [id number] atorvastatin 40 mg Tab 80 mg 2 Tab, ORAL, QBedtime cholecalciferol (D3) 25 mcg (1,000 IU) Tab 25 mcg 1 Tab, ORAL, DAILY digoxin 0.125 mg Tab 0.125 mg 1 Tab, ORAL, DAILY enoxaparin 100 mg/mL, 1 mL Inj Syringe 90 mg 0.9 mL, SUBQ, Q12H furosemide 20 mg Tab 20 mg 1 Tab, ORAL, DAILY insulin lispro (Admelog) 100 units/mL, 3 mL MDV correction scale, SUBQ, Q6H lisinopril 2.5 mg Tab 2.5 mg 1 Tab, ORAL, DAILY metoprolol tartrate 25 mg Tab 25 mg 1 Tab, ORAL, BID pantoprazole 40 mg EC Tab 40 mg 1 Tab, ORAL, ACBkfst Pharmacy Communication No Anticoag/antithrombotic/antiplat elet, N/A, As directed Pharmacy Communication As Directed, N/A, As directed tamsulosin 0.4 mg Cap 0.4 mg 1 Cap, ORAL, QBedtime Continuous: sodium chloride 0.9% 1,000 mL 1,000 mL, IV, 100 mL/hr PRN: acetaminophen 325 mg Tab 650 mg 2 ea, ORAL, Q6H Dextrose 50% Inj 50 mL Syr 25 mL, IV, As directed Dextrose 50% Inj 50 mL Syr 50 mL, IV, As directed glucagon 1 mg Inj SDV 1 mg, SUBQ, As directed Glucose 40% Oral Gel 15 gm 15 gm 37.5 mL, ORAL, As directed levalbuterol 1.25 mg/3 mL Neb Amp 3 mL 1.25 mg 3 mL, INH, Q4H metoprolol tartrate 1 mg/mL Inj 5 mL 5 mg 5 mL, IV PUSH, Q6H nalOXone 0.4 mg/mL, 1 mL Inj 0.2 mg 0.5 mL, IV PUSH, As directed traMADol 50 mg Tab 50 mg 1 Tab, ORAL, Q6H Lab Results Labs All 24H Lab Results Date Vancomycin Lvl Random 14.6 mcg/mL 03/11/22 13:30 PST Lactic Acid Level 1.4 mmol/L 03/12/22 09:05 PST HDL Cholesterol 31 mg/dL (LOW) 03/12/22 02:50 PST LDL Cholesterol, Calc 61 mg/dL 03/12/22 02:50 PST VLDL Cholesterol, Calc 22 mg/dL 03/12/22 02:50 PST Total Chol/HDL Ratio 4 03/12/22 02:50 PST LDL/HDL Ratio 2.0 03/12/22 02:50 PST TSH Thyroid Stim Hormone 3RD G 4.99 uInt Unit/mL 03/12/22 02:50 PST Auto Neutrophil Percent 84.4 % (HIGH) 03/12/22 02:50 PST Auto Neutrophil Absolute 14.7 K/mm3 (HIGH) 03/12/22 02:50 PST Auto Lymphocyte Percent 7.0 % (LOW) 03/12/22 02:50 PST Auto Lymphocyte Absolute 1.2 K/mm3 03/12/22 02:50 PST Auto Monocyte Percent 8.3 % 03/12/22 02:50 PST Auto Monocyte Absolute 1.4 K/mm3 03/12/22 02:50 PST Auto Basophil Percent 0.2 % 03/12/22 02:50 PST Auto Basophil Absolute 0.0 K/mm3 03/12/22 02:50 PST Auto Eosinophil Percent 0.1 % 03/12/22 02:50 PST Auto Eosinophil Absolute 0.0 K/mm3 03/12/22 02:50 PST WBC 17.40 K/mm3 (HIGH) 03/12/22 02:50 PST RBC 3.64 M/mm3 (LOW) 03/12/22 02:50 PST HGB 10.9 gm/dL (LOW) 03/12/22 02:50 PST HCT 33.0 % (LOW) 03/12/22 02:50 PST MCV 90.7 fL 03/12/22 02:50 PST MCH 29.9 pg 03/12/22 02:50 PST MCHC 33.0 gm/dL 03/12/22 02:50 PST RDW 14.1 % 03/12/22 02:50 PST PLT 132 K/mm3 (LOW) 03/12/22 02:50 PST MPV 11.9 fL (HIGH) 03/12/22 02:50 PST PTT - Patient 27.6 sec 03/12/22 09:05 PST Sodium Level 131 mmol/L (LOW) 03/12/22 02:50 PST Potassium Level 3.8 mmol/L 03/12/22 02:50 PST Chloride Level 96 mmol/L (LOW) 03/12/22 02:50 PST CO2/Carbon Dioxide 28 mmol/L 03/12/22 02:50 PST Anion Gap 7 mmol/L 03/12/22 02:50 PST Glucose, Random 116 mg/dL (HIGH) 03/12/22 02:50 PST POCT - Glucose (Capillary) 179 mg/dL (HIGH) 03/12/22 11:45 PST BUN 30 mg/dL (HIGH) 03/12/22 02:50 PST Creatinine 0.8 mg/dL 03/12/22 02:50 PST BUN/Creat Ratio 38 (HIGH) 03/12/22 02:50 PST Osmolality, Calculated 270 mOsm/L (LOW) 03/12/22 02:50 PST Calcium Level 7.6 mg/dL (LOW) 03/12/22 02:50 PST Magnesium Level 1.7 mg/dL (LOW) 03/12/22 02:50 PST Phosphorus Level <1.5 mg/dL (LOW) 03/12/22 02:50 PST Total Protein 5.6 gm/dL (LOW) 03/12/22 02:50 PST Albumin Level 2.6 gm/dL (LOW) 03/12/22 02:50 PST Globulin Level 3.0 gm/dL 03/12/22 02:50 PST A/G Ratio 0.9 (LOW) 03/12/22 02:50 PST Total Cholesterol 114 mg/dL 03/12/22 02:50 PST Triglycerides 109 mg/dL 03/12/22 02:50 PST Bilirubin, Total 1.6 mg/dL (HIGH) 03/12/22 02:50 PST Bilirubin, Direct 0.5 mg/dL 03/12/22 02:50 PST Bilirubin, Indirect (Calc) 1.1 mg/dL 03/12/22 02:50 PST AST 26 IntUnit/L 03/12/22 02:50 PST ALT 32 IntUnit/L 03/12/22 02:50 PST ALP 92 IntUnit/L 03/12/22 02:50 PST eGFR 90 mL/min/1.73m2 03/12/22 02:50 PST Assessment/Plan A. fib with RVR -Newly onset -TSH, lipid panel, A1c results reviewed -Cardiology input appreciated-we will continue current anticoagulation given the high risk -Continue digoxin and metoprolol for rate control Bacteremia -Likely due to the UTI -Citrobacter koseri Staphylococcus aureus Enterococcus species -ID on board -Currently on IV Unasyn CVA -SP tPA -Currently stable -Continue telemetry monitoring Secondary prophylaxis- Hematuria -Improved compared to yesterday -UTI versus anticoagulation use -Monitoring CBC and blood transfusion to keep hemoglobin more than 7 Anemia -Hemoglobin 10.9 -Continue [place] [id number] Male 03/12/2022 [facility] Consultation Patient: MAYRA SURESH Age: 76 years Legal Sex: MALE : 1945 Cardiology Consultation Reason for Consultation 1. Palpitations History of Present Illness Cardiovascular: Patient presents with c/o palpitations for more than 24 hours feels heart racing, pounding in the chest, with exertion, Severity: mild to moderate, Onset: insidious. No prior history of AFIBB. Denies : Chest Pain. shortness of breath. dizziness. leg edema. fatigue. cyanosis. diaphoresis. syncope. Claudication. Respiratory: Denies : cough. fever. seasonal nasal stuffiness. ear pain. postnasal drip. headache. chest congestion. epistaxis. rhinorrhea. Gastroenterology: Denies : dysphagia. abdominal pain. heartburn. nausea. vomiting. constipation. diarrhea. fever. abdominal distension. blood in stool. hematemesis. Neurology: Denies : headache. head injury. seizures. tingling/ numbness. paraesthesias. weakness. dizziness. speech difficulty. tremors. memory loss. Endocrinology: Denies : myalgias. fatigue. weight gain. weight loss. flushing. polyuria. polydipsia. appetite change. tingling, numbness. General/Constitutional: Denies : fever. chills. weight loss. weakness. fatigue. ENT: Denies : tinnitus. vertigo. loss of hearing. drainage from ear. ear pain. nasal discharge. epistaxis. nasal septal deviation. sore throat. hoarseness of voice. Ophthalmology: Denies : drainage. foreign body sensation. eye pain. eye irritation. diminished vision. contact with irritant. burning sensation. fever. itching. Infectious Diseases: Denies : chills. fever. frequent infections. chronic cough. skin infections. Genitourinary: Denies : frequent urination. burning w urination. Incontinence. Positive for hematuria. flank pain. renal colic. abdominal pain. fever. Pelvic Pain. Dermatology: Denies : rash. moles. acne. laceration. ulcer. redness. itching. h/o insect bite. contact with irritant. h/o treatment. warts. Psychiatric: Denies : unusual stress. sleep disturbances. weight gain. weight loss. appetite change. low energy level. depressed mood. feeling overwhelmed. crying spells. thoughts of hurting self. Current Medications See [employer] Data PMSH: See [employer] Data Review of Systems CONSTITUTIONAL: no weight gain. no loss of appetite. no fever. no weakness. no weight loss. no chills. OPTHALMOLOGY: no diminished vision. no eye irritation. no drainage from eyes. no blurring of vision. no seasonal eye sx. no dander related eye sx. ENT: no cold. no cough. no coughing blood. no nose bleed. no hearing loss. no change in voice. no sore throat. no ringing in ears. no snoring. no tinnitus. no vertigo. no epistaxis. no hoarseness. CARDIOVASCULAR: no chest pain, no. no diaphoresis. no claudication. no PND. no orthopnea. no exertional dyspnea. no ascites. no cyanosis. no phlebitis. no rheumatic fever. no syncope. no shortness of breath. palpitations yes. no leg swelling. no dizziness. no varicose veins. RESPIRATORY: no cough. no wheezing. no asthma. no hemoptysis. no pneumonia. no night sweats. GASTROENTEROLOGY: no nausea. no heartburn. no hematemesis. no jaundice. no hernia. no hemorrhoids. no loss of appetite. no change in weight. no vomiting. no bloating/belching. no difficulty swallowing. no abdominal pain. no diarrhea. no constipation. no change in bowel habits. no blood in stool. UROLOGY: no difficulty urinating. no blood in urine. no urinary urgency. no frequent urination. no urinary incontinence. no voiding dysfunction. no recurrent UTI. no nocturia. no renal colic. no passage of stones. MUSCULOSKELETAL: no joint swelling. no joint pain. no leg cramps. no joint stiffness. no weakness. no atrophy. NEUROLOGY: no headache. no tingling and numbness. no seizures. no insomnia. no memory loss. no dizziness. no syncope. no weakness. no paralysis. no tremors. no incoordination. no gait disturbance. no paresthesias. no atrophy of muscles. ENDOCRINOLOGY: no fatigue. no excessive sweating. no excessive thirst. no excessive urination. no weight loss. no sleep disturbance. no cold intolerance. no heat intolerance. HEMATOLOGY/LYMPH: no swollen glands. no fatigue. no loss of appetite. no anemia. no bleeding. no bruising. ALLERGY/IMMUNOLOGY: no runny nose. no scratchy throat. no itchy eyes. no fullness in ears. no sinus congestion. no stuffy nose. no dermatitis. no urticaria. no hay fever. no angioedema. no food allergy. no pollen sensitivity. DERMATOLOGY: no rash. no change in color of moles. no lumps. no dry or sensitive skin. no hives. Physical Examination GENERAL: appearance well nourished. HEENT: head normocephalic. sclera normal. pupils ERLA. EOM intact. NECK: neck supple. thyroid not enlarged. cervical lymph nodes normal. ROM normal. Bruit absent. HEART: PMI within mid clavicular line, normal. rhythm regular. murmurs none. heart sounds normal S1 and S2. clicks none. CHEST: shape and expansion normal. breath sounds normal. percussion normal. rales no. wheezes no. ABDOMEN: shape normal. scars no. guarding no. tenderness no. masses no. liver, spleen not palpable. BACK: spine normal. CVA tenderness no. S I joints non tender. SLR normal. EXTREMITIES: edema no. cyanosis no. clubbing no. tremors no. pulses 2+ bilateral. NEUROLOGICAL: sensory normal. motor normal strength bilaterally. coordination normal. reflexes 2+ bilaterally. MUSCULOSKELETAL: upper extremity joints normal. lower extremity joints normal. cervical spines normal. L-S spines normal. Assessments 1. Palpitations 2. Atrial Fibrillation Paroxysmal Treatment Based on my evaluation, medical therapy is advised for treating the condition which includes a rhythm converting agent along with rate controlling medication if needed. Anticoagulation to prevent systemic thromboembolism should be instituted due to high risk conditions. FU on OP basis. Electronically signed by Gurpreet Chang M.D., F.A.C.C. [id number] Male 03/12/2022 [facility] Emergency[facility] Progress Note Patient: SHERRON SURESH Age: 76 years Legal Sex: MALE : 1945 Subjective Patient seen and examined at bedside, Patient has no new complaints Pending cardiology consult for discharge clearance Hematuria noted however as per patient has been improving Hemoglobin has been monitored Objective Vitals and Measurements T: 98.6 F HR: 94(Apical) HR: 88 RR: 19 BP: 126/64 SpO2: 99% O2 Delivery: Nasal cannula O2 Flow: 4L/min HT: 180.34 cm WT: 90.1 kg BMI: 26.2 kg/m2 Intake and Output as of 15:27 (24 hour periods starting at 06:00) 03/11/22 03/10/22 03/09/22 Intake mL 1084 3271 2 Output mL 1750 4000 2845 Fluid Balance -501 -524 -3229 Physical Exam General Appearance: No acute distress. HEENT: NCAT. Normal oropharynx. Neck supple without lymphadenopathy. Cardiac: Irregular rhythm. No murmurs. Lungs: Clear to auscultation. Abdomen: Soft, non-distended, non-tender. Neurological: Grossly intact motor and sensory examination. Inpatient Medications Scheduled: atorvastatin 40 mg Tab 80 mg 2 Tab, ORAL, QBedtime cefTRIAXone 1 gm Inj 1 gm 1 Vial, IVPB, Q24H cholecalciferol (D3) 25 mcg (1,000 IU) Tab 25 mcg 1 Tab, ORAL, DAILY digoxin 0.125 mg Tab 0.125 mg 1 Tab, ORAL, DAILY enoxaparin 100 mg/mL, 1 mL Inj Syringe 90 mg 0.9 mL, SUBQ, Q12H furosemide 20 mg Tab 20 mg 1 Tab, ORAL, DAILY insulin lispro (Admelog) 100 units/mL, 3 mL MDV correction scale, SUBQ, Q6H lisinopril 2.5 mg Tab 2.5 mg 1 Tab, ORAL, DAILY metoprolol tartrate 25 mg Tab 25 mg 1 Tab, ORAL, BID pantoprazole 40 mg EC Tab 40 mg 1 Tab, ORAL, ACBkfst Pharmacy Communication No Anticoag/antithrombotic/antiplat elet, N/A, As directed Pharmacy Communication As Directed, N/A, As directed tamsulosin 0.4 mg Cap 0.4 mg 1 Cap, ORAL, QBedtime vancomycin 1 g Inj 1,000 mg, IVPB, [id number] vancomycin pharmacy to dose Rx to Dose, N/A, As directed Continuous: sodium chloride 0.9% 1,000 mL 1,000 mL, IV, 100 mL/hr PRN: acetaminophen 325 mg Tab 650 mg 2 ea, ORAL, Q6H Dextrose 50% Inj 50 mL Syr 25 mL, IV, As directed Dextrose 50% Inj 50 mL Syr 50 mL, IV, As directed glucagon 1 mg Inj SDV 1 mg, SUBQ, As directed Glucose 40% Oral Gel 15 gm 15 gm 37.5 mL, ORAL, As directed levalbuterol 1.25 mg/3 mL Neb Amp 3 mL 1.25 mg 3 mL, INH, Q4H metoprolol tartrate 1 mg/mL Inj 5 mL 5 mg 5 mL, IV PUSH, Q6H nalOXone 0.4 mg/mL, 1 mL Inj 0.2 mg 0.5 mL, IV PUSH, As directed traMADol 50 mg Tab 50 mg 1 Tab, ORAL, Q6H Lab Results Labs All 24H Lab Results Date Vancomycin Lvl Random 14.6 mcg/mL 03/11/22 13:30 PST Lactic Acid Level 2.1 mmol/L (HIGH) 03/10/22 16:22 PST Absolute Bands Count 0.2 K/mm3 03/11/22 03:01 PST Auto Neutrophil Percent 87.1 % (HIGH) 03/11/22 03:01 PST Auto Neutrophil Absolute 20.6 K/mm3 (HIGH) 03/11/22 03:01 PST Auto Lymphocyte Percent 4.2 % (LOW) 03/11/22 03:01 PST Auto Lymphocyte Absolute 1.0 K/mm3 03/11/22 03:01 PST Auto Monocyte Percent 8.5 % 03/11/22 03:01 PST Auto Monocyte Absolute 2.0 K/mm3 (HIGH) 03/11/22 03:01 PST Auto Basophil Percent 0.2 % 03/11/22 03:01 PST Auto Basophil Absolute 0.1 K/mm3 03/11/22 03:01 PST Auto Eosinophil Percent 0.0 % 03/11/22 03:01 PST Auto Eosinophil Absolute 0.0 K/mm3 03/11/22 03:01 PST Manual Neutrophil Percent 92 % (HIGH) 03/11/22 03:01 PST Manual Neutrophil Absolute 22.0 K/mm3 (HIGH) 03/11/22 03:01 PST Manual Lymphocyte Percent 2 % (LOW) 03/11/22 03:01 PST Manual Lymphocyte Absolute 0.5 K/mm3 (LOW) 03/11/22 03:01 PST Manual Monocyte Percent 5 % 03/11/22 03:01 PST Manual Monocyte Absolute 1.2 K/mm3 03/11/22 03:01 PST WBC 23.70 K/mm3 (HIGH) 03/11/22 03:01 PST RBC 3.50 M/mm3 (LOW) 03/11/22 03:01 PST HGB 10.2 gm/dL (LOW) 03/11/22 03:01 PST HCT 31.9 % (LOW) 03/11/22 03:01 PST MCV 91.1 fL 03/11/22 03:01 PST MCH 29.1 pg 03/11/22 03:01 PST MCHC 31.9 gm/dL (LOW) 03/11/22 03:01 PST RDW 14.4 % 03/11/22 03:01 PST PLT 118 K/mm3 (LOW) 03/11/22 03:01 PST MPV 11.2 fL (HIGH) 03/11/22 03:01 PST Platelet Clumps None 03/11/22 03:01 PST Bands % 1 % 03/11/22 03:01 PST PLT Estimate Decreased (ABNORMAL) 03/11/22 03:01 PST RBC Morphology Normal 03/11/22 03:01 PST Toxic Granulation 1+ (ABNORMAL) 03/11/22 03:01 PST PTT - Patient 29.7 sec 03/11/22 13:30 PST Sodium Level 137 mmol/L 03/11/22 03:01 PST Potassium Level 4.4 mmol/L 03/11/22 03:01 PST Chloride Level 100 mmol/L (LOW) 03/11/22 03:01 PST CO2/Carbon Dioxide 28 mmol/L 03/11/22 03:01 PST Anion Gap 9 mmol/L 03/11/22 03:01 PST Glucose, Random 96 mg/dL 03/11/22 03:01 PST POCT - Glucose (Capillary) 133 mg/dL (HIGH) 03/11/22 11:52 PST BUN 50 mg/dL (HIGH) 03/11/22 03:01 PST Creatinine 0.9 mg/dL 03/11/22 03:01 PST BUN/Creat Ratio 56 (HIGH) 03/11/22 03:01 PST Osmolality, Calculated 287 mOsm/L 03/11/22 03:01 PST Calcium Level 7.9 mg/dL (LOW) 03/11/22 03:01 PST Magnesium Level 2.3 mg/dL 03/11/22 03:01 PST Phosphorus Level 2.0 mg/dL (LOW) 03/11/22 03:01 PST Total Protein 5.5 gm/dL (LOW) 03/11/22 03:01 PST Albumin Level 2.5 gm/dL (LOW) 03/11/22 03:01 PST Globulin Level 3.0 gm/dL 03/11/22 03:01 PST A/G Ratio 0.8 (LOW) 03/11/22 03:01 PST Bilirubin, Total 1.2 mg/dL 03/11/22 03:01 PST Bilirubin, Direct 0.3 mg/dL 03/11/22 03:01 PST Bilirubin, Indirect (Calc) 0.9 mg/dL 03/11/22 03:01 PST AST 14 IntUnit/L (LOW) 03/11/22 03:01 PST ALT 22 IntUnit/L 03/11/22 03:01 PST ALP 75 IntUnit/L 03/11/22 03:01 PST eGFR 83 mL/min/1.73m2 03/11/22 03:01 PST Assessment/Plan CVA -SP tPA -Currently stable -Continue telemetry monitoring Secondary prophylaxis- A. fib with RVR -Newly onset -Currently controlled with digoxin and metoprolol -Started anticoagulations with Lovenox therapeutic dose -We will consult cardiology -Complicated with hematuria -TSH, lipid panel, A1c tomorrow morning as a.m. labs and follow-up Hematuria -Likely due to anticoagulation use -Improving -Monitoring CBC and blood transfusion to keep hemoglobin more than 7 Anemia -Hemoglobin 10.2 -Continue monitoring CBC [id number] Male 03/11/2022 [facility] Consult Note Patient: SHERRON SURESH Age: 76 years Legal Sex: MALE : 1945 Current Anti-Infective Orders Anti-Infective Medications (Ordered) cefTRIAXone, 1 gm, IVPB, Q24H, Indication= Sepsis, INJ, 03/10/22 12:52:00 PST vancomycin, 1,000 mg, IVPB, [id number], Indication= Bloodstream Infection, IV SOLN, 03/11/22 22:00:00 PST Indication bloodstream infection Renal Replacement Therapy No dialysis Plan Loading Dose: 2000mg_ Initial maintenance dose: _1000mg q18h Projected AUC of initial maintenance dose 483.9 Bayesian model Adult 2-compartment Therapeutic drug monitoring strategy Bayesian-derived AUC Goal AUC 24 400-600 Next level(s) planned random vanco level at 199903/11/22 Allergies NKA Measurements Height: 180.34 cm Weight: 88.6 kg (195 lbs) Lab Results Serum Creatinine Creatinine: 0.9 mg/dL (03/11/22 03:01:00) Creatinine: 1.1 mg/dL (03/10/22 02:40:00) Creatinine: 1.4 mg/dL (03/09/22 05:36:00) Creatinine: 1.2 mg/dL (03/08/22 05:29:00) Creatinine: 1.4 mg/dL (03/07/22 04:01:00) Microbiology Results Cultures Culture MRSA Screen Final - March 06 2022 08:17:11 PST No MRSA (Methicillin Resistant Staph Aureus) [place] [address] [employer] [place] 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 24 hour course reviewed and no new events last night; feeling better today Review of Systems Constitutional: No fever, No chills. Eye: Negative. Ear/Nose/Mouth/Throat: Negative. Respiratory: No shortness of breath, No cough. Cardiovascular: No chest pain, No syncope. Gastrointestinal: No nausea, No vomiting. Genitourinary: Negative. Hematology/Lymphatics: Negative. Endocrine: Negative. Musculoskeletal: Negative. Neurologic: Negative. Psychiatric: Negative. All other systems are negative Health Status Allergies: Allergic Reactions (All) NKA, Allergies (1) Active Severity Reaction NKA None Documented Current medications: (Selected) Inpatient Medications Ordered Dextrose 50% Inj 50 mL: = 25 mL, IV, As directed, PRN, Blood Glucose, INJ, 03/04/22 21:48:00 PST Dextrose 50% Inj 50 mL: = 50 mL, IV, As directed, PRN, Blood Glucose, INJ, 03/04/22 21:48:00 PST Lovenox: 90 mg, SUBQ, Q12H, Indication = Atrial Fibrillation, INJ, 03/08/22 21:00:00 PST Narcan: 0.2 mg, IV PUSH, As directed, PRN, Other (see comment), INJ, 03/10/22 11:18:00 PST Normal Saline 0.9% 1,000 mL: 1,000 mL, IV, 03/10/22 13:12:00 PST, 100 mL/hr, 10 hr, Order Weight 94.4, kg, 2.17, m2 Pharmacy Communication: As Directed, 03/04/22 21:48:00 PST, N/A, 03/04/22 21:48:00 PST Pharmacy Communication: No Anticoag/antithrombotic/antiplat elet, 03/04/22 19:17:00 PST, N/A, 03/04/22 19:17:00 PST Protonix: 40 mg, ORAL, ACBkfst, EC TAB, 03/06/22 7:00:00 PST Rocephin: 1 gm, IVPB, Q24H, Indication= Sepsis, INJ, 03/10/22 12:52:00 PST Xopenex: 1.25 mg, INH, Q4H, PRN, Wheezing, NEB AMP, 03/06/22 19:00:00 PST acetaminophen: 650 mg, ORAL, Q6H, PRN, Fever, TAB, 03/04/22 21:48:00 PST atorvastatin: 80 mg, ORAL, QBedtime, TAB, 03/04/22 21:48:00 PST cholecalciferol: 25 mcg, ORAL, DAILY, TAB, 03/08/22 14:21:00 PST digoxin: 0.125 mg, ORAL, DAILY, TAB, 03/07/22 12:46:00 PST furosemide: 20 mg, ORAL, DAILY, TAB, 03/08/22 14:21:00 PST glucagon: 1 mg, SUBQ, As directed, PRN, Blood Glucose, INJ, 03/04/22 21:48:00 PST glucose 40% oral gel: 15 gm = 37.5 mL, ORAL, As directed, PRN, Blood Glucose, GEL, 03/04/22 21:48:00 PST insulin lispro Correction Scale Med (Body wt 70-100kg): correction scale, SUBQ, Q6H, 03/09/22 18:00:00 PST lisinopril: 2.5 mg, ORAL, DAILY, TAB, 03/08/22 14:21:00 PST metoprolol: 25 mg, ORAL, BID, TAB, 03/09/22 19:00:00 PST tamsulosin: 0.4 mg, ORAL, QBedtime, CAP, 03/09/22 21:00:00 PST traMADol: 50 mg, ORAL, Q6H, PRN, Pain-Moderate (Scale 4-6), TAB, 03/09/22 18:45:00 PST Documented Medications Documented Fish Oil 1000 mg oral capsule: 1 Cap, ORAL, DAILY, 0 Refill(s), Maintenance aspirin 325 mg oral enteric coated tablet: = 1 Tab, ORAL, DAILY, 0 Refill(s), Maintenance atenolol 50 mg oral tablet: = 1 Tab, ORAL, DAILY, 0 Refill(s), Maintenance atenolol 50 mg oral tablet: = 1 Tab, ORAL, DAILY, 0 Refill(s), Maintenance atorvastatin 40 mg oral tablet: = 1 Tab, ORAL, QBedtime, 0 Refill(s), Maintenance atorvastatin 80 mg oral tablet: = 1 Tab, ORAL, DAILY, 0 Refill(s), Maintenance cholecalciferol 1000 intl units oral tablet: = 1 Tab, ORAL, DAILY, 0 Refill(s), Maintenance clopidogrel 75 mg oral tablet: = 1 Tab, ORAL, DAILY, 0 Refill(s), Maintenance docusate-senna 50 mg-8.6 mg oral capsule: 0 Refill(s), Maintenance furosemide 20 mg oral tablet: = 1 Tab, ORAL, DAILY, 0 Refill(s), Maintenance hydrochlorothiazide-lisinopril 12.5 mg-10 mg oral tablet: = 1 Tab, ORAL, DAILY, 0 Refill(s), Maintenance lisinopril: 2.5 mg, ORAL, DAILY, 0 Refill(s), Maintenance metFORMIN: 500 mg, ORAL, DAILY, 0 Refill(s), Maintenance metoprolol: 25 mg, ORAL, DAILY, 0 Refill(s), Maintenance tamsulosin 0.4 mg oral capsule: = 1 Cap, ORAL, QBedtime, 0 Refill(s), Maintenance traMADol 50 mg oral tablet: Q6H, PRN PRN Pain-Whole Scale (Scale 1-10), 0 Refill(s), Maintenance, Medications (22) Active Scheduled: (13) atorvastatin 40 mg Tab 80 mg 2 Tab, ORAL, QBedtime cefTRIAXone 1 gm Inj 1 gm 1 Vial, IVPB, Q24H cholecalciferol (D3) 25 mcg (1,000 IU) Tab 25 mcg 1 Tab, ORAL, DAILY digoxin 0.125 mg Tab 0.125 mg 1 Tab, ORAL, DAILY enoxaparin 100 mg/mL, 1 mL Inj Syringe 90 mg 0.9 mL, SUBQ, Q12H furosemide 20 mg Tab 20 mg 1 Tab, ORAL, DAILY insulin lispro (Admelog) 100 units/mL, 3 mL MDV correction scale, SUBQ, Q6H lisinopril 2.5 mg Tab 2.5 mg 1 Tab, ORAL, DAILY metoprolol tartrate 25 mg Tab 25 mg 1 Tab, ORAL, BID pantoprazole 40 mg EC Tab 40 mg 1 Tab, ORAL, ACBkfst Pharmacy Communication No Anticoag/antithrombotic/antiplat elet, N/A, As directed Pharmacy Communication As Directed, N/A, As directed tamsulosin 0.4 mg Cap 0.4 mg 1 Cap, ORAL, QBedtime Continuous: (1) sodium chloride 0.9% 1,000 mL 1,000 mL, IV, 100 mL/hr PRN: (8) acetaminophen 325 mg Tab 650 mg 2 ea, ORAL, Q6H Dextrose 50% Inj 50 mL Syr 25 mL, IV, As directed Dextrose 50% Inj 50 mL Syr 50 mL, IV, As directed glucagon 1 mg Inj SDV 1 mg, SUBQ, As directed Glucose 40% Oral Gel 15 gm 15 gm 37.5 mL, ORAL, As directed levalbuterol 1.25 mg/3 mL Neb Amp 3 mL 1.25 mg 3 mL, INH, Q4H nalOXone 0.4 mg/mL, 1 mL Inj 0.2 mg 0.5 mL, IV PUSH, As directed traMADol 50 mg Tab 50 mg 1 Tab, ORAL, Q6H Problem list: All Problems Anticoagulant monitoring / [id number] / Provisional Body mass index 30+ - obesity / [id number] / Confirmed Current smoker / [id number] / Confirmed Elevated serum cholesterol / [id number] / Confirmed High blood pressure / [id number] / Confirmed Readiness for discharge / [id number] / Provisional Skin integrity at risk / [id number] / Provisional TIA (transient ischemic attack) / [id number] / Confirmed Canceled: Activity intolerance / [id number] Canceled: Decreased cardiac output / [id number] Canceled: Knowledge deficit / [id number], Active or Inactive Problems (4) Body mass index 30+ - obesity Elevated serum cholesterol High blood pressure TIA (transient ischemic attack) Physical Examination Vital Signs (last 24 hrs) Last Charted Minimum Maximum Temp(?F) 97.9 (MAR 10 15:51 PST) 97.5 (MAR 09 23:17 PST) 99.5 (MAR 10 11:47 PST) Heart Rate H 106 (MAR 10 15:51 PST) 80 (MAR 10 03:16 PST) C 129 (MAR 10 11:48 PST) Resp Rate 19 (MAR 10 15:50 PST) 17 (MAR 09 23:17 PST) 20 (MAR 10 11:46 PST) SBP 100 (MAR 10 15:50 PST) 100 (MAR 10 15:50 PST) H 143 (MAR 10 11:46 PST) DBP L 54 (MAR 10 15:50 PST) L 54 (MAR 10 15:50 PST) 73 (MAR 10 11:46 PST) SpO2 92 (MAR 10 15:51 PST) 91 (MAR 10 07:45 PST) 98 (MAR 09 19:31 PST) OXYFLOW 6 (MAR 10 15:50 PST) 3 (MAR 09 19:31 PST) 6 (MAR 10 11:46 PST) OXYDELIVERY Nasal cannula Nasal Nasal (MAR 10 15:50 PST) (MAR 09 19:31 PST) (MAR 09 19:31 PST) General: No acute distress. Eye: Pupils are equal, round and reactive to light, Extraocular movements are intact. HENT: Normocephalic. Neck: Supple. Respiratory: Lungs are clear to auscultation, No chest wall tenderness. Cardiovascular: Normal rate, Regular rhythm, Normal peripheral perfusion. Gastrointestinal: Soft, Non-tender, Normal bowel sounds. Genitourinary: No costovertebral angle tenderness. Lymphatics: No lymphadenopathy neck, axilla, groin. Musculoskeletal Normal range of motion. Integumentary: Warm, Dry. Neurologic: Alert, Oriented. Psychiatric: Cooperative. Review / Management Results review: Labs (Last four charted values) WBC H 25.80 (MAR 10) H 30.30 (MAR 09) H 24.00 (MAR 08) H 26.20 (MAR 07) Hgb L 10.9 (MAR 10) L 9.6 (MAR 09) L 10.3 (MAR 08) L 11.2 (MAR 07) Hct L 32.1 (MAR 10) L 29.2 (MAR 09) L 31.3 (MAR 08) L 34.4 (MAR 07) Plt L 120 (MAR 10) L 123 (MAR 09) 169 (MAR 08) 197 (MAR 07) Na L 135 (MAR 10) L 131 (MAR 09) 136 (MAR 08) 139 (MAR 07) K 4.3 (MAR 10) 4.1 (MAR 09) 4.0 (MAR 08) 4.0 (MAR 07) CO2 30 (MAR 10) 29 (MAR 09) 29 (MAR 08) 29 (MAR 07) Cl L 98 (MAR 10) L 98 (MAR 09) L 100 (MAR 08) 101 (MAR 07) Cr 1.1 (MAR 10) 1.4 (MAR 09) 1.2 (MAR 08) 1.4 (MAR 07) BUN H 62 (MAR 10) H 72 (MAR 09) H 58 (MAR 08) H 47 (MAR 07) Glucose Random H 146 (MAR 10) H 157 (MAR 09) H 175 (MAR 08) H 158 (MAR 07) Mg 2.2 (MAR 10) 2.0 (MAR 09) 2.3 (MAR 08) 1.9 (MAR 07) Phos L 1.9 (MAR 10) L 2.3 (MAR 09) 2.9 (MAR 08) 4.2 (MAR 07) Ca L 8.6 (MAR 10) L 8.1 (MAR 09) L 8.6 (MAR 08) 8.9 (MAR 07) PT H 14.8 (MAR 07) 14.2 (MAR 04) INR H 1.2 (MAR 07) H 1.2 (MAR 04) PTT 27.2 (MAR 10) 25.7 (MAR 10) 27.7 (MAR 10) 26.8 (MAR 09) . Impression and Plan Diagnosis Atrial fibrillation with rapid ventricular response. Altered mental status. . Course: Unchanged. PLAN: Summary: 76-year-old male with known history of hypertension, hyperlipidemia and COPD with history of smoking who presented to ER with altered mental status and probable TIA/ CVA and s/p tPA admitted to ICU for further management. Patient being monitored in ICU course for 24 hours an found to have A. fib with RVR received amiodarone and beta-blockers afterwards transferred to medical floor; patient had a traumatic Blankenship with hematuria and bladder irrigation done and urine now clear will discontinue Blankenship today 1. TIA - S/P TPA in ER course and neurology evaluated and MRI Brain showed no acute infarct; unremarkable CT angio of the neck and unremarkable ECHO - Currently patient is doing well, no neurologic deficits, cleared from neuro standpoint 2. New onset atrial fibrillation with rapid ventricular rate - On oral metoprolol and other meds - continue anticoagulation with Lovenox and will switch to Eliquis upon discharge 3. Hematuria - Likely secondary to traumatic (Blankenship placed in ICU); improving color urine ?clots and bladder irritation done and finally urine normal color and Blankenship to be removed today - UA and cultures pending - monitor CBC DVT Prophylaxis: SCD's - This patient continued to be hospitalized for - A Fib with RVR Education and Follow-up: Counseled: Patient, Regarding diagnosis, Regarding treatment, Regarding medications. Milton Ramsey MD Attending Physician [id number] Male 03/10/2022 [facility] Progress Note Patient: SHERRON SURESH Age: 76 years Legal Sex: Male : 1945 Author: MD Braulio, Milton Carlson Associated Diagnosis: Atrial fibrillation with rapid ventricular response; Altered mental status Basic Information - Seen and examined at bedside with Nursing staff.. 24 hour course reviewed and no new events last night Review of Systems Constitutional: No fever, No chills. Eye: Negative. Ear/Nose/Mouth/Throat: Negative. Respiratory: No shortness of breath, No cough. Cardiovascular: No chest pain, No syncope. Gastrointestinal: No nausea, No vomiting. Genitourinary: Negative. Hematology/Lymphatics: Negative. Endocrine: Negative. Musculoskeletal: Negative. Neurologic: Negative. Psychiatric: Negative. All other systems are negative Health Status Allergies: Allergic Reactions (All) NKA, Allergies (1) Active Severity Reaction NKA None Documented Current medications: (Selected) Inpatient Medications Ordered Dextrose 50% Inj 50 mL: = 25 mL, IV, As directed, PRN, Blood Glucose, INJ, 03/04/22 21:48:00 PST Dextrose 50% Inj 50 mL: = 50 mL, IV, As directed, PRN, Blood Glucose, INJ, 03/04/22 21:48:00 PST Lovenox: 90 mg, SUBQ, Q12H, Indication = Atrial Fibrillation, INJ, 03/08/22 21:00:00 PST Pharmacy Communication: As Directed, 03/04/22 21:48:00 PST, N/A, 03/04/22 21:48:00 PST Pharmacy Communication: No Anticoag/antithrombotic/antiplat elet, 03/04/22 19:17:00 PST, N/A, 03/04/22 19:17:00 PST Protonix: 40 mg, ORAL, ACBkfst, EC TAB, 03/06/22 7:00:00 PST Xopenex: 1.25 mg, INH, Q4H, PRN, Wheezing, NEB AMP, 03/06/22 19:00:00 PST acetaminophen: 650 mg, ORAL, Q6H, PRN, Fever, TAB, 03/04/22 21:48:00 PST aspirin: 325 mg, ORAL, DAILY, EC TAB, 03/09/22 11:15:00 PST atorvastatin: 80 mg, ORAL, QBedtime, TAB, 03/04/22 21:48:00 PST cholecalciferol: 25 mcg, ORAL, DAILY, TAB, 03/08/22 14:21:00 PST digoxin: 0.125 mg, ORAL, DAILY, TAB, 03/07/22 12:46:00 PST furosemide: 20 mg, ORAL, DAILY, TAB, 03/08/22 14:21:00 PST glucagon: 1 mg, SUBQ, As directed, PRN, Blood Glucose, INJ, 03/04/22 21:48:00 PST glucose 40% oral gel: 15 gm = 37.5 mL, ORAL, As directed, PRN, Blood Glucose, GEL, 03/04/22 21:48:00 PST lisinopril: 2.5 mg, ORAL, DAILY, TAB, 03/08/22 14:21:00 PST methylPREDNISolone succinate: 60 mg, IV PUSH, DAILY, INJ, 03/06/22 9:00:00 PST metoprolol: 25 mg, ORAL, BID, TAB, 03/09/22 19:00:00 PST tamsulosin: 0.4 mg, ORAL, QBedtime, CAP, 03/09/22 21:00:00 PST Documented Medications Documented Fish Oil 1000 mg oral capsule: 1 Cap, ORAL, DAILY, 0 Refill(s), Maintenance aspirin 325 mg oral enteric coated tablet: = 1 Tab, ORAL, DAILY, 0 Refill(s), Maintenance atenolol 50 mg oral tablet: = 1 Tab, ORAL, DAILY, 0 Refill(s), Maintenance atenolol 50 mg oral tablet: = 1 Tab, ORAL, DAILY, 0 Refill(s), Maintenance atorvastatin 40 mg oral tablet: = 1 Tab, ORAL, QBedtime, 0 Refill(s), Maintenance atorvastatin 80 mg oral tablet: = 1 Tab, ORAL, DAILY, 0 Refill(s), Maintenance cholecalciferol 1000 intl units oral tablet: = 1 Tab, ORAL, DAILY, 0 Refill(s), Maintenance clopidogrel 75 mg oral tablet: = 1 Tab, ORAL, DAILY, 0 Refill(s), Maintenance docusate-senna 50 mg-8.6 mg oral capsule: 0 Refill(s), Maintenance furosemide 20 mg oral tablet: = 1 Tab, ORAL, DAILY, 0 Refill(s), Maintenance hydrochlorothiazide-lisinopril 12.5 mg-10 mg oral tablet: = 1 Tab, ORAL, DAILY, 0 Refill(s), Maintenance lisinopril: 2.5 mg, ORAL, DAILY, 0 Refill(s), Maintenance metFORMIN: 500 mg, ORAL, DAILY, 0 Refill(s), Maintenance metoprolol: 25 mg, ORAL, DAILY, 0 Refill(s), Maintenance tamsulosin 0.4 mg oral capsule: = 1 Cap, ORAL, QBedtime, 0 Refill(s), Maintenance traMADol 50 mg oral tablet: Q6H, PRN PRN Pain-Whole Scale (Scale 1-10), 0 Refill(s), Maintenance, Medications (19) Active Scheduled: (13) aspirin 325 mg EC Tab 325 mg 1 EC_Tab, ORAL, DAILY atorvastatin 40 mg Tab 80 mg 2 Tab, ORAL, QBedtime cholecalciferol (D3) 25 mcg (1,000 IU) Tab 25 mcg 1 Tab, ORAL, DAILY digoxin 0.125 mg Tab 0.125 mg 1 Tab, ORAL, DAILY enoxaparin 100 mg/mL, 1 mL Inj Syringe 90 mg 0.9 mL, SUBQ, Q12H furosemide 20 mg Tab 20 mg 1 Tab, ORAL, DAILY lisinopril 2.5 mg Tab 2.5 mg 1 Tab, ORAL, DAILY methylPRED sod succ 40 mg/mL Inj 60 mg 1.5 mL, IV PUSH, DAILY metoprolol tartrate 25 mg Tab 25 mg 1 Tab, ORAL, BID pantoprazole 40 mg EC Tab 40 mg 1 Tab, ORAL, ACBkfst Pharmacy Communication No Anticoag/antithrombotic/antiplat elet, N/A, As directed Pharmacy Communication As Directed, N/A, As directed tamsulosin 0.4 mg Cap 0.4 mg 1 Cap, ORAL, QBedtime Continuous: (0) PRN: (6) acetaminophen 325 mg Tab 650 mg 2 ea, ORAL, Q6H Dextrose 50% Inj 50 mL Syr 25 mL, IV, As directed Dextrose 50% Inj 50 mL Syr 50 mL, IV, As directed glucagon 1 mg Inj SDV 1 mg, SUBQ, As directed Glucose 40% Oral Gel 15 gm 15 gm 37.5 mL, ORAL, As directed levalbuterol 1.25 mg/3 mL Neb Amp 3 mL 1.25 mg 3 mL, INH, Q4H Problem list: All Problems Anticoagulant monitoring / [id number] / Provisional Body mass index 30+ - obesity / 232271260 / Confirmed Current smoker / [id number] / Confirmed Elevated serum cholesterol / [id number] / Confirmed High blood pressure / [id number] C3B6 / Confirmed Readiness for discharge / [id number] / Provisional Skin integrity at risk / [id number] / Provisional TIA (transient ischemic attack) / [id number] / Confirmed Canceled: Activity intolerance / [id number] Canceled: Decreased cardiac output / [id number] Canceled: Knowledge deficit / [id number], Active or Inactive Problems (4) Body mass index 30+ - obesity Elevated serum cholesterol High blood pressure TIA (transient ischemic attack) Physical Examination Vital Signs (last 24 hrs) Last Charted Minimum Maximum Temp(?F) 99.4 (MAR 09 07:31 PST) 97.8 (MAR 08 16:00 PST) 99.4 (MAR 09 07:31 PST) Heart Rate 88 (MAR 09 08:23 PST) 75 (MAR 09 03:22 PST) C 139 (MAR 08 14:00 PST) Resp Rate H 22 (MAR 09 03:19 PST) 16 (MAR 08 14:00 PST) H 27 (MAR 08 13:00 PST) SBP 97 (MAR 09 07:35 PST) 90 (MAR 08 19:49 PST) H 154 (MAR 08 12:00 PST) DBP 62 (MAR 09 07:35 PST) L 52 (MAR 08 19:49 PST) H 96 (MAR 08 15:00 PST) SpO2 91 (MAR 09 07:35 PST) 91 (MAR 08 11:00 PST) 98 (MAR 08 16:00 PST) OXYFLOW 2 (MAR 09 03:19 PST) 2 (MAR 08 11:00 PST) 2 (MAR 08 11:00 PST) OXYDELIVERY Nasal cannula Nasal Nasal (MAR 09 03:19 PST) (MAR 08 11:00 PST) (MAR 08 11:00 PST) General: No acute distress. Eye: Pupils are equal, round and reactive to light, Extraocular movements are intact. HENT: Normocephalic. Neck: Supple. Respiratory: Lungs are clear to auscultation, No chest wall tenderness. Cardiovascular: Normal rate, Regular rhythm, Normal peripheral perfusion. Gastrointestinal: Soft, Non-tender, Normal bowel sounds. Genitourinary: No costovertebral angle tenderness. Lymphatics: No lymphadenopathy neck, axilla, groin. Musculoskeletal Normal range of motion. Integumentary: Warm, Dry. Neurologic: Alert, Oriented. Psychiatric: Cooperative. Review / Management Results review: Labs (Last four charted values) WBC H 30.30 (MAR 09) H 24.00 (MAR 08) H 26.20 (MAR 07) H 28.00 (MAR 07) Hgb L 9.6 (MAR 09) L 10.3 (MAR 08) L 11.2 (MAR 07) L 11.3 (MAR 07) Hct L 29.2 (MAR 09) L 31.3 (MAR 08) L 34.4 (MAR 07) L 34.6 (MAR 07) Plt L 123 (MAR 09) 169 (MAR 08) 197 (MAR 07) 194 (MAR 07) Na L 131 (MAR 09) 136 (MAR 08) 139 (MAR 07) 137 (MAR 06) K 4.1 (MAR 09) 4.0 (MAR 08) 4.0 (MAR 07) 4.2 (MAR 06) CO2 29 (MAR 09) 29 (MAR 08) 29 (MAR 07) 27 (MAR 06) Cl L 98 (MAR 09) L 100 (MAR 08) 101 (MAR 07) L 99 (MAR 06) Cr 1.4 (MAR 09) 1.2 (MAR 08) 1.4 (MAR 07) 1.2 (MAR 06) BUN H 72 (MAR 09) H 58 (MAR 08) H 47 (MAR 07) 25 (MAR 06) Glucose Random H 157 (MAR 09) H 175 (MAR 08) H 158 (MAR 07) H 192 (MAR 06) Mg 2.0 (MAR 09) 2.3 (MAR 08) 1.9 (MAR 07) 2.0 (MAR 06) Phos L 2.3 (MAR 09) 2.9 (MAR 08) 4.2 (MAR 07) 4.7 (MAR 06) Ca L 8.1 (MAR 09) L 8.6 (MAR 08) 8.9 (MAR 07) 9.0 (MAR 06) PT H 14.8 (MAR 07) 14.2 (MAR 04) INR H 1.2 (MAR 07) H 1.2 (MAR 04) PTT 28.2 (MAR 09) 34.2 (MAR 09) 29.7 (MAR 08) H 39.6 (MAR 08) . Impression and Plan Diagnosis Atrial fibrillation with rapid ventricular response. Altered mental status. . Course: Unchanged. PLAN: 1. TIA - S/P TPA - MRI was limited but showed no acute infarct, unremarkable CT angio of the neck and unremarkable echo - Currently patient is doing well, no neurologic deficits, cleared from neuro standpoint 2. New onset atrial fibrillation with rapid ventricular rate - On oral metoprolol and other meds - continue anticoagulation 3. Hematuria - improving and still on/off red color urine ?clots and continue to monitor and will remove blankenship tomorrow - monitor CBC DVT Prophylaxis: SCD's - This patient continued to be hospitalized for - A Fib with RVR - Abnormal Labs Reviewed and treated appropriately (including IV Medications ..etc) - Continue current complex plan of care and monitor high risk labs and IV Meds and please see today MD orders for more details Total time : Greater than 35 minutes spent in taking care of the patient today including Bedside evaluation, Reviewing labs, prior records, reviewing radiology and communicating with Nursing staff, and discussing condition with the patient/Family. Disposition: Home once stable and Expected day of discharge : 1-2 days Education and Follow-up: Counseled: Patient, Regarding diagnosis, Regarding treatment, Regarding medications. Milton Ramsey MD Attending Physician [id number] Male 03/09/2022 [facility] Progress Note Patient: SHERRON SURESH Age: 76 years Legal Sex: Male : 1945 Author: MD Gerardo, Srinivasa Chao Subjective dyspnea improving Health Status Current medications: Active inpatient medications ACTIVE INPT MEDS: amiodarone 200 mg ORAL BID aspirin 81 mg ORAL DAILY atorvastatin 80 mg ORAL QBedtime dilTIAZem (Cardizem) 60 mg ORAL Q6H methylPREDNISolone (methylPREDNISolone succinate) 60 mg IV PUSH DAILY pantoprazole (Protonix) 40 mg ORAL ACBkfst Pharmacy Communication N/A As directed Pharmacy Communication N/A As directed tamsulosin (Flomax) 0.4 mg ORAL DAILY ACTIVE PRN MEDS: acetaminophen 650 mg ORAL Q6H glucagon 1 mg SUBQ As directed glucose (Dextrose 50% Inj 50 mL) 25 mL IV As directed glucose (Dextrose 50% Inj 50 mL) 50 mL IV As directed glucose (glucose 40% oral gel) 15 gm ORAL As directed levalbuterol (Xopenex) 1.25 mg INH Q4H ONE TIME MEDS: (Ordered) albumin human (albumin human 25% intravenous solution) 25 gm IVPB ONCE (Completed) amiodarone 150 mg IVPB ONCE (Completed) digoxin 0.5 mg IV PUSH ONCE (Completed) dilTIAZem 10 mg IV PUSH ONCE ACTIVE IV MEDS: HEParin 25,000 units [12 units/kg/hr] + field service poultry technician premix 250 mL (HEParin additive 25,000 units [12 units/kg/hr] + Sodium Chloride 0.45% premix diluent 250 mL) 250 mL 11.33 mL/hr HEParin 25,000 units [12 units/kg/hr] + field service poultry technician premix 250 mL (HEParin additive 25,000 units [12 units/kg/hr] + Dextrose 5% Water premix diluent 250 mL) 250 mL 11.33 mL/hr, (Selected) Inpatient Medications Ordered Cardizem: 60 mg, ORAL, Q6H, TAB, 03/06/22 7:31:00 PST Dextrose 50% Inj 50 mL: = 25 mL, IV, As directed, PRN, Blood Glucose, INJ, 03/04/22 21:48:00 PST Dextrose 50% Inj 50 mL: = 50 mL, IV, As directed, PRN, Blood Glucose, INJ, 03/04/22 21:48:00 PST Flomax: 0.4 mg, ORAL, DAILY, CAP, 03/06/22 9:38:00 PST HEParin additive 25,000 units [12 units/kg/hr] + Dextrose 5% Water premix diluent 250 mL: 250 mL, IV, 03/07/22 8:33:00 PST, 11.33 mL/hr, 22.1 hr, Order Weight 94.4, kg, 2.17, m2 HEParin additive 25,000 units [12 units/kg/hr] + Sodium Chloride 0.45% premix diluent 250 mL: 250 mL, IV, 03/07/22 8:33:00 PST, 11.33 mL/hr, 22.1 hr, Order Weight 94.4, kg, 2.17, m2 Pharmacy Communication: As Directed, 03/04/22 21:48:00 PST, N/A, 03/04/22 21:48:00 PST Pharmacy Communication: No Anticoag/antithrombotic/antiplat elet, 03/04/22 19:17:00 PST, N/A, 03/04/22 19:17:00 PST Protonix: 40 mg, ORAL, ACBkfst, GRANULE, 03/06/22 7:00:00 PST Xopenex: 1.25 mg, INH, Q4H, PRN, Wheezing, NEB AMP, 03/06/22 19:00:00 PST acetaminophen: 650 mg, ORAL, Q6H, PRN, Fever, TAB, 03/04/22 21:48:00 PST albumin human 25% intravenous solution: 25 gm = 100 mL, IVPB, ONCE, IV SOLN, 03/07/22 8:30:00 PST, Stop date 03/07/22 8:30:00 PST, 100 mL/hr, 1 hr amiodarone: 200 mg, ORAL, BID, TAB, 03/07/22 7:29:00 PST aspirin: 81 mg, ORAL, DAILY, EC TAB, 03/06/22 9:00:00 PST atorvastatin: 80 mg, ORAL, QBedtime, TAB, 03/04/22 21:48:00 PST glucagon: 1 mg, SUBQ, As directed, PRN, Blood Glucose, INJ, 03/04/22 21:48:00 PST glucose 40% oral gel: 15 gm = 37.5 mL, ORAL, As directed, PRN, Blood Glucose, GEL, 03/04/22 21:48:00 PST methylPREDNISolone succinate: 60 mg, IV PUSH, DAILY, INJ, 03/06/22 9:00:00 PST Documented Medications Documented Fish Oil 1000 mg oral capsule: 1 Cap, ORAL, DAILY, 0 Refill(s), Maintenance aspirin 325 mg oral enteric coated tablet: = 1 Tab, ORAL, DAILY, 0 Refill(s), Maintenance atenolol 50 mg oral tablet: = 1 Tab, ORAL, DAILY, 0 Refill(s), Maintenance atenolol 50 mg oral tablet: = 1 Tab, ORAL, DAILY, 0 Refill(s), Maintenance atorvastatin 40 mg oral tablet: = 1 Tab, ORAL, QBedtime, 0 Refill(s), Maintenance hydrochlorothiazide-lisinopril 12.5 mg-10 mg oral tablet: = 1 Tab, ORAL, DAILY, 0 Refill(s), Maintenance traMADol 50 mg oral tablet: Q6H, PRN Pain-Whole Scale (Scale 1-10), 0 Refill(s), Maintenance Objective VS/Measurements: Inpt. Vital signs (ST) Vital Signs (last 24 hrs) Last Charted Minimum Maximum Temp(?F) 98.7 (MAR 07 04:00 PST) 98.1 (MAR 06 19:00 PST) 98.7 (MAR 07 04:00 PST) Heart Rate 90 (MAR 07 08:00 PST) 86 (MAR 07 03:00 PST) C 156 (MAR 06 14:00 PST) Resp Rate 18 (MAR 07 08:00 PST) 15 (MAR 06 16:00 PST) H 43 (MAR 06 14:00 PST) SBP 124 (MAR 07 08:00 PST) L 79 (MAR 06 18:30 PST) H 143 (MAR 06 13:00 PST) DBP 78 (MAR 07 08:00 PST) L 51 (MAR 06 18:30 PST) H 108 (MAR 06 13:00 PST) SpO2 94 (MAR 07 08:00 PST) 92 (MAR 06 15:00 PST) 100 (MAR 06 20:00 PST) OXYFLOW 2 (MAR 07 08:00 PST) 2 (MAR 06 10:00 PST) 2 (MAR 06 10:00 PST) OXYDELIVERY Nasal cannula Nasal Nasal (MAR 07 08:00 PST) (MAR 06 10:00 PST) (MAR 06 10:00 PST) . General Appearance: in acute distress. HEENT: NCAT. Cardiac: Irregular . No murmurs. Lungs: Clear to auscultation. Abdomen: Soft, non-distended, non-tender. Neurological: Intermittent confusion Skin: No rash present. Extremities: No edema. Results Review Laboratory ResultsLab Results ST Selected Lab Results Lab Results Normalcy Date WBC 28.00 K/mm3 High 03/07/22 04:01 HGB 11.3 gm/dL Low 03/07/22 04:01 HCT 34.6 % Low 03/07/22 04:01 PLT 194 K/mm3 Normal 03/07/22 04:01 Sodium Level 139 mmol/L Normal 03/07/22 04:01 Chloride Level 101 mmol/L Normal 03/07/22 04:01 Potassium Level 4.0 mmol/L Normal 03/07/22 04:01 BUN 47 mg/dL High 03/07/22 04:01 Creatinine 1.4 mg/dL Normal 03/07/22 04:01 AST 23 IntUnit/L Normal 03/07/22 04:01 ALT 18 IntUnit/L Normal 03/07/22 04:01 PT - INR 1.2 - High 03/04/22 19:10 PT - Patient 14.2 sec Normal 03/04/22 19:10 PTT - Patient 26.5 sec Normal 03/04/22 19:10 Hemoglobin A1C by HPLC 6.1 % High 03/05/22 05:15 Calcium Level 8.9 mg/dL Normal 03/07/22 04:01 Phosphorus Level 4.2 mg/dL Normal 03/07/22 04:01 Magnesium Level 1.9 mg/dL Normal 03/07/22 04:01 Albumin Level 3.4 gm/dL Low 03/07/22 04:01 Troponin I 0.02 ng/mL Normal 03/04/22 19:10 CO2/Carbon Dioxide 29 mmol/L Normal 03/07/22 04:01 Glucose, Random 158 mg/dL High 03/07/22 04:01 Cultures Results Culture Results Culture MRSA Screen Final - March 06 2022 08:17:11 PST No MRSA (Methicillin Resistant Staph Aureus) [place] [address] [facility] Laborer: Demond Mccoy MD Chest x-ray shows mild vascular congestion Assessment and Plan 1. Altered mentation--status post tPA . No evidence of cva on MRI. EF 55% with moderate . Neurologist is following patient. 2. New onset atrial fibrillation with rapid ventricular rate-- On oral cardizem and amioadrone. Start heparin drip 3. COPD exacerbation--patient started on steroids and bronchodilator treatments 4. Delirium--patient was receiving Ativan as needed. off precedex 5. Hematuria-- improving. remove blankenship tomorrow Cumulative time spent in management of patient is over 45 minutes excluding procedures. Upon my evaluation, patient has high degree of imminent or life threatening deterioration due to present condition. Time includes personally examining patient, reviewing records including labs, reviewing radiology examinations, discussing with consultants and evaluating treatment options and monitoring for potential decompensation. This dictation was transcribed using [employer] voice recognition technology and may include unintended recognition errors in the text. [id number] Male 03/07/2022 [facility] Progress Note Patient: MAYRA SURESH Age: 76 years Legal Sex: MALE : 1945 Date of Service 03/07/2022 07:48 PST Subjective 76-year-old male with known history of hypertension, hyperlipidemia and past history of smoking who was admitted because of Altered mental status and probable TIA. S/P TPA. Today patient is feeling well. Denies any headache, blurry vision or slurred speech at the moment. No neurologic deficits. all he remembered that he passed out then he woke up here in the hospital. He had MRI brain which was limited due to motion with no acute infarct. He had CT angio head and neck which was unremarkable. Patient reported past history of TIA and endarterectomy on the left side in January 2022, he reported that at his time he experienced slurred speech and LOC. Patient was on Precedex drip for agitation. he developed atrial fibrillation with RVR, initially was on amiodarone drip which was transitioned to amiodarone p.o. He will get started on heparin drip infusion. Review of Systems Constitutional: Negative except as in HPI. Eye: Negative except as in HPI. Ear/Nose/Mouth/Throat: Negative except as in HPI. Respiratory: Negative except as in HPI. Cardiovascular: Negative except as in HPI. Gastrointestinal: Negative except as in HPI. Genitourinary: Negative except as in HPI. Hematology/Lymphatics: Negative except as in HPI. Immunologic: Negative except as in HPI. Musculoskeletal: Negative except as in HPI. Neurologic: Negative except as in HPI. Vital Signs T: 98.7 F HR: 106(Apical) HR: 104(Monitored) RR: 23 BP: 124/58 SpO2: 96% O2 Delivery: Nasal cannula O2 Flow: 2L/min HT: 180.34 cm WT: 83.9 kg BMI: 0 kg/m2 Physical Exam General Appearance: No acute distress. HEENT: NCAT. Normal oropharynx. Neck supple without lymphadenopathy. Cardiac: Normal sinus rhythm. No murmurs. Lungs: Clear to auscultation. Abdomen: Soft, non-distended, non-tender. Neurological: Grossly intact motor and sensory examination. Skin: No rash present. Psychiatric: Alert and interactive with normal affect. Intake and Output This visit (24 hour periods starting at 06:00 PST) 03/07/22 * 03/06/22 03/05/22 Total Summary Intake mL -- 997.318 285.524 Output mL -- 1,100 984 Fluid Balance -- -102.682 -698.476 Intake (12) LORazepam mL -- -- 0.5 Oral intake mL -- 480 -- amiodarone mL -- 100 100 amiodarone 360 mg [0.5 mg/min] + field service poultry technician premix 200 mL mL -- 161.699 -- amiodarone 360 mg [1 mg/min] + field service poultry technician premix 200 mL mL -- 191.092 -- dexmedetomidine 400 mcg + field service poultry technician premix 100 mL mL -- -- 165.357 dexmedetomidine 400 mcg [0.2 mcg/kg/hr] + field service poultry technician premix 100 mL mL -- 55.027 -- digoxin mL -- 2 -- dilTIAZem 100 mg [5 mg/hr] + sodium chloride 0.9% 100 mL mL -- -- 10.667 diltiazem mL -- 2 2 furosemide mL -- 4 4 methylPREDNISolone mL -- 1.5 3 Total -- 997.318 285.524 Output (1) Indwelling/Continuous Urethral Not present on admit mL -- 1,100 984 Total -- 1,100 984 Counts (3) Oral intake mL -- 480 -- Stool count large -- 1 -- Urinary cath output : mL -- 1,100 984 * This column has not completed the indicated time period. Assessment/Plan 76-year-old male with known history of hypertension, hyperlipidemia and past history of smoking who was admitted because of Altered mental status and probable TIA. . #TIA - S/P TPA -MRI was limited but showed no acute infarct, unremarkable CT angio of the neck and unremarkable echo -Currently patient is doing well, no neurologic deficits, cleared from neuro standpoint -Continue dual antiplatelet therapy and high intensity statin -Continue with permissive hypertension during hospital stay, normothermia and euglycemia. -Neuro checks Q4H -Continue working with PT/OT -Follow-up outpatient Patient was seen with Attending Physician, Dr. Cagle, who agreed with the above assessment and plan. Howard Eldridge MD PGY 2 Attending Attestation and/or Time Spent I saw and examined the patient with the resident. I have reviewed medical records, labs and images. I agree with assessment and plan. Dr. Cagle. Allergies NKA Code Status: Full Code Medications Scheduled: albumin human 25% 25 gm 100 mL, IVPB, ONCE amiodarone 200 mg Tab 200 mg 1 Tab, ORAL, BID aspirin 81 mg EC Tab 81 mg 1 EC_Tab, ORAL, DAILY atorvastatin 40 mg Tab 80 mg 2 Tab, ORAL, QBedtime dilTIAZem 30 mg Tab 60 mg 2 Tab, ORAL, Q6H methylPRED sod succ 40 mg/mL Inj 60 mg 1.5 mL, IV PUSH, DAILY pantoprazole 40 mg ECG Pkt Oral Susp 40 mg 1 Pkt, ORAL, ACBkfst Pharmacy Communication No Anticoag/antithrombotic/antiplat elet, N/A, As directed Pharmacy Communication As Directed, N/A, As directed tamsulosin 0.4 mg Cap 0.4 mg 1 Cap, ORAL, DAILY Continuous: amiodarone 360 mg [0.5 mg/min] + dextrose 5% water premix diluent 200 mL 200 mL, IV, 16.67 mL/hr PRN: acetaminophen 325 mg Tab 650 mg 2 ea, ORAL, Q6H Dextrose 50% Inj 50 mL Syr 25 mL, IV, As directed Dextrose 50% Inj 50 mL Syr 50 mL, IV, As directed glucagon 1 mg Inj SDV 1 mg, SUBQ, As directed Glucose 40% Oral Gel 15 gm 15 gm 37.5 mL, ORAL, As directed levalbuterol 1.25 mg/3 mL Neb Amp 3 mL 1.25 mg 3 mL, INH, Q4H Home Medications (7) Active aspirin 325 mg oral enteric coated tablet 1 Tab, ORAL, DAILY atenolol 50 mg oral tablet 1 Tab, ORAL, DAILY atenolol 50 mg oral tablet 50 mg = 1 Tab, ORAL, DAILY atorvastatin 40 mg oral tablet 1 Tab, ORAL, QBedtime Fish Oil 1000 mg oral capsule 1 Cap, ORAL, DAILY hydrochlorothiazide-lisinopril 12.5 mg-10 mg oral tablet 1 Tab, ORAL, DAILY traMADol 50 mg oral tablet , PRN, Q6H Lines/Tubes/Airways Urinary Catheter Indwelling/Continuous Urethral Not present on admit (03/04/22 19:44) Lab Results Labs All 24H Lab Results Date Absolute Bands Count 2.2 K/mm3 03/07/22 04:01 PST Auto Neutrophil Percent 89.6 % (HIGH) 03/07/22 04:01 PST Auto Neutrophil Absolute 25.1 K/mm3 (HIGH) 03/07/22 04:01 PST Auto Lymphocyte Percent 2.3 % (LOW) 03/07/22 04:01 PST Auto Lymphocyte Absolute 0.6 K/mm3 (LOW) 03/07/22 04:01 PST Auto Monocyte Percent 7.9 % 03/07/22 04:01 PST Auto Monocyte Absolute 2.2 K/mm3 (HIGH) 03/07/22 04:01 PST Auto Basophil Percent 0.1 % 03/07/22 04:01 PST Auto Basophil Absolute 0.0 K/mm3 03/07/22 04:01 PST Auto Eosinophil Percent 0.1 % 03/07/22 04:01 PST Auto Eosinophil Absolute 0.0 K/mm3 03/07/22 04:01 PST Manual Neutrophil Percent 80 % (HIGH) 03/07/22 04:01 PST Manual Neutrophil Absolute 24.6 K/mm3 (HIGH) 03/07/22 04:01 PST Manual Lymphocyte Percent 2 % (LOW) 03/07/22 04:01 PST Manual Lymphocyte Absolute 0.6 K/mm3 (LOW) 03/07/22 04:01 PST Manual Monocyte Percent 10 % 03/07/22 04:01 PST Manual Monocyte Absolute 2.8 K/mm3 (HIGH) 03/07/22 04:01 PST WBC 28.00 K/mm3 (HIGH) 03/07/22 04:01 PST RBC 3.74 M/mm3 (LOW) 03/07/22 04:01 PST HGB 11.3 gm/dL (LOW) 03/07/22 04:01 PST HCT 34.6 % (LOW) 03/07/22 04:01 PST MCV 92.6 fL 03/07/22 04:01 PST MCH 30.3 pg 03/07/22 04:01 PST MCHC 32.7 gm/dL 03/07/22 04:01 PST RDW 14.6 % (HIGH) 03/07/22 04:01 PST PLT 194 K/mm3 03/07/22 04:01 PST MPV 10.6 fL (HIGH) 03/07/22 04:01 PST Platelet Clumps None 03/07/22 04:01 PST Fingerstick/cap blood sugar 158 mg/dL 03/07/22 06:00 PST Anisocytosis 1+ (ABNORMAL) 03/07/22 04:01 PST Bands % 8 % (HIGH) 03/07/22 04:01 PST PLT Estimate Normal 03/07/22 04:01 PST RBC Morphology Normal 03/07/22 04:01 PST Sodium Level 139 mmol/L 03/07/22 04:01 PST Potassium Level 4.0 mmol/L 03/07/22 04:01 PST Chloride Level 101 mmol/L 03/07/22 04:01 PST CO2/Carbon Dioxide 29 mmol/L 03/07/22 04:01 PST Anion Gap 9 mmol/L 03/07/22 04:01 PST Glucose, Random 158 mg/dL (HIGH) 03/07/22 04:01 PST POCT - Glucose (Capillary) 152 mg/dL (HIGH) 03/06/22 23:53 PST BUN 47 mg/dL (HIGH) 03/07/22 04:01 PST Creatinine 1.4 mg/dL 03/07/22 04:01 PST BUN/Creat Ratio 34 (HIGH) 03/07/22 04:01 PST Osmolality, Calculated 293 mOsm/L 03/07/22 04:01 PST Calcium Level 8.9 mg/dL 03/07/22 04:01 PST Magnesium Level 1.9 mg/dL 03/07/22 04:01 PST Phosphorus Level 4.2 mg/dL 03/07/22 04:01 PST Total Protein 6.6 gm/dL 03/07/22 04:01 PST Albumin Level 3.4 gm/dL (LOW) 03/07/22 04:01 PST Globulin Level 3.2 gm/dL 03/07/22 04:01 PST A/G Ratio 1.1 (LOW) 03/07/22 04:01 PST Bilirubin, Total 1.3 mg/dL (HIGH) 03/07/22 04:01 PST Bilirubin, Direct 0.5 mg/dL 03/07/22 04:01 PST Bilirubin, Indirect (Calc) 0.8 mg/dL 03/07/22 04:01 PST AST 23 IntUnit/L 03/07/22 04:01 PST ALT 18 IntUnit/L 03/07/22 04:01 PST ALP 51 IntUnit/L 03/07/22 04:01 PST eGFR 54 mL/min/1.73m2 03/07/22 04:01 PST Diagnostics General Diagnostic Result Type: Chest 1 Vw Portable Result Date: March 07, 2022 06:11 PST Reason For Exam: Congestion REPORT: INDICATION:CongestionCOMPARISON: March 06, 2022 FINDINGS: Cardiomegaly is seen. There is no evidence of infiltrates or effusions. The aorta is calcified. Mild pulmonary vascular congestion is seen. Soft tissues are unremarkable. Spondylosis is seen throughout the spine. IMPRESSION: Cardiomegaly with mild pulmonary vascular congestion, not significant changed.Calcified aorta.Spondylosis thoracic spine. Signed by: Jesus Garcia on 03/07/2022 7:21 AM Computerized Tomography Result Type: CT Brain WO Contrast Result Date: March 05, 2022 18:24 PST Reason For Exam: Stroke/TIA REPORT: Clinical Peazhiv31 hours after tpa patient altered would not hold stillComparison:CT HEAD on 03/04/2022, 244 images.Technique: Noncontrast CT head is obtained.All CT scans at this medical facility are performed using dose modulation techniques as appropriate to a performed exam including the following: Automated exposure control was utilized; adjustment of the mA and/or kV according to patient size; and use of iterative reconstruction technique.All CT studies are reported to the Dose Index Registry of the [employer]. Without ContrastRadiation Dose: CTDI (mGy): 46.34; DLP (mGy-cm): 895.32SHERRON SURESH, [id number]:Evaluation is limited secondary to motion artifact.Cerebral parenchyma: Saenz-white differentiation is maintained. No acute hemorrhage.Extra-axial spaces: No extra-axial fluid collectionVentricles: Ventricles are normal in sizeMass effect: No midline shiftPosterior Fossa: cerebellar tonsils are normal in position and configuration Calvarium: Normal Visualized paranasal sinuses/mastoids: clear IMPRESSION:No acute intracranial hemorrhage given the limitation of motion artifact.This report was electronically signed by Hudson Prieto DO on 03/05/2022 6:36:54 PM. Result Type: CT Angio Head/Neck W Contrast Result Date: March 04, 2022 20:52 PST Reason For Exam: Other REPORT: Clinical HistorystrokeComparison:CT HEAD on 03/04/2022, 244 images.Technique: Axial images are acquired from the aortic arch to the vertex, during the dynamic injection of intravenous contrast. Data is reconstructed in the sagittal and coronal planes. Multiplanar MIP reconstruction imaging was provided and reviewed at the workstation.MIPS reconstruction was performed in multiple planes.All CT scans at this medical facility are performed using dose modulation techniques as appropriate to a performed exam including the following: Automated exposure control was utilized; adjustment of the mA and/or kV according to patient size; and use of iterative reconstruction technique.All CT studies are reported to the Dose Index Registry of the [employer]. 3D images be reconstructed or obtained with maximum intensity projection postprocessing (MIP), volume rendered or other 3D technique.Contrast: isovue 370/100mlRadiation Dose: CTDI (mGy): 25.26; DLP (mGy-cm): 988.98GLKIRSTEN, SHERRON, [id number] Findings: CTA neck: Aortic arch is normal in caliber without significant atherosclerotic changes.The right brachiocephalic, common carotid arteries, carotid bulb as well as the internal carotid artery are patent. mild plaque in the carotid bulb and distal common carotid.The left common carotid artery, carotid bulb and internal carotid artery are patent. mild inflammatory changes along the distal carotid and carotid bulb.The vertebral arteries are patent. CTA head: Cavernous internal carotid arteries are patent. The A1, and A2 segments of the anterior cerebral artery are patent. There is a patent anterior communicating artery. The M1, and M2 segments of the middle cerebral artery are patent. There is a symmetric distal branch pattern. The posterior inferior cerebellar arteries are patent. Basilar artery is unremarkable. Posterior superior cerebral arteries are unremarkable. The P1, and P2 segments of the posterior cerebral artery are patent. Posterior communicating arteries are present. Bony structures are intact. No evidence of an acute fracture. The airway is midline. Thyroid gland is unremarkable. Lung apices demonstrate subtle emphysematous changes with dependent basilar lung disease. There is no enlarged cervical lymphadenopathy. Impression: No evidence of hemodynamically significant stenosis in the neck. No dissection or occlusionInflammatory changes surrounding the distal left common carotid and carotid bulb suggest prior endarterectomy.No evidence of hemodynamically significant stenosis in the head. No aneurysm or occlusion.No evidence of vascular mass.This report was electronically signed by Fidencio Del Rio MD on 03/04/2022 9:40:39 PM. Magnetic Resonance Imaging Result Type: MRI Brain WO Contrast Result Date: March 06, 2022 13:20 PST Reason For Exam: Stroke/TIA;Stroke/TIA REPORT: EXAMINATION: MRI Brain WO ContrastCLINICAL HISTORY: Unspecified neurologic symptoms and suspected stroke.COMPARISONS: CT brain and CTA head from the previous day.TECHNIQUE:Multiplanar/multis equence noncontrast MR imaging of the brain was performed. Patient motion artifact severely degrades several of these sequences rendering some of them near nondiagnostic. FINDINGS: Evaluation of the posterior fossa demonstrate the fourth ventricle to be midline without mass impression. The seventh and eighth nerve complexes are grossly unremarkable.Evaluation of the supratentorial brain demonstrates the cortical sulci and ventricular system to be unremarkable for the patient's age. No restricted diffusion is seen. There is suspected mild nonspecific confluent periventricular T2/FLAIR signal abnormality likely related to small vessel ischemic disease in a patient of this age.There is no gross mass lesion or hemorrhage. There is no mass effect or midline shift. An extra-axial fluid collection is not identified. The cerebral vasculature demonstrates grossly normal flow-void.The globes and optic nerve complexes are symmetric with nonvisualization of the lenses, likely postsurgical. There is mild chronic mucosal thickening throughout the right maxillary sinus, right frontal sinus and bilateral posterior ethmoid air cells. IMPRESSION: Markedly limited study due to motion with no acute infarct. Short-term follow-up with a repeat study when the patient can better tolerate it may be of benefit. Signed by: Sandeep Montiel on 03/06/2022 1:46 PM [id number] Male 03/07/2022 [facility] Progress Note Patient: SHERRON SURESH Age: 76 years Legal Sex: Male : 1945 Author: MD Gerardo, Srinivasa V Subjective In rapid A. fib and started on amiodarone drip Health Status Current medications: Active inpatient medications ACTIVE INPT MEDS: albuterol-ipratropium (DuoNeb) 3 mL INH Q4H aspirin 81 mg ORAL DAILY atorvastatin 80 mg ORAL QBedtime dilTIAZem (Cardizem) 60 mg ORAL Q6H furosemide (Lasix) 40 mg IV PUSH DAILY methylPREDNISolone (methylPREDNISolone succinate) 60 mg IV PUSH DAILY pantoprazole (Protonix) 40 mg ORAL ACBkfst Pharmacy Communication N/A As directed Pharmacy Communication N/A As directed tamsulosin (Flomax) 0.4 mg ORAL DAILY ACTIVE PRN MEDS: acetaminophen 650 mg ORAL Q6H glucagon 1 mg SUBQ As directed glucose (Dextrose 50% Inj 50 mL) 25 mL IV As directed glucose (Dextrose 50% Inj 50 mL) 50 mL IV As directed glucose (glucose 40% oral gel) 15 gm ORAL As directed ONE TIME MEDS: (Completed) amiodarone 150 mg IVPB ONCE (Completed) amiodarone 150 mg IVPB ONCE (Completed) digoxin 0.5 mg IV PUSH ONCE (Completed) dilTIAZem 10 mg IV PUSH ONCE (Completed) dilTIAZem 10 mg IV PUSH ONCE ACTIVE IV MEDS: amiodarone 360 mg [0.5 mg/min] + field service poultry technician premix 200 mL (amiodarone drip 360 mg [0.5 mg/min] + Dextrose 5% Water premix diluent 200 mL) 200 mL 16.67 mL/hr amiodarone 360 mg [1 mg/min] + field service poultry technician premix 200 mL (amiodarone drip 360 mg [1 mg/min] + Dextrose 5% Water premix diluent 200 mL) 200 mL 33.33 mL/hr, (Selected) Inpatient Medications Ordered Cardizem: 60 mg, ORAL, Q6H, TAB, 03/06/22 7:31:00 PST Dextrose 50% Inj 50 mL: = 25 mL, IV, As directed, PRN, Blood Glucose, INJ, 03/04/22 21:48:00 PST Dextrose 50% Inj 50 mL: = 50 mL, IV, As directed, PRN, Blood Glucose, INJ, 03/04/22 21:48:00 PST DuoNeb: = 3 mL, INH, Q4H, NEB AMP, 03/05/22 13:06:00 PST Flomax: 0.4 mg, ORAL, DAILY, CAP, 03/06/22 9:38:00 PST Lasix: 40 mg, IV PUSH, DAILY, INJ, 03/06/22 7:27:00 PST Pharmacy Communication: As Directed, 03/04/22 21:48:00 PST, N/A, 03/04/22 21:48:00 PST Pharmacy Communication: No Anticoag/antithrombotic/antiplat elet, 03/04/22 19:17:00 PST, N/A, 03/04/22 19:17:00 PST Protonix: 40 mg, ORAL, ACBkfst, GRANULE, 03/06/22 7:00:00 PST acetaminophen: 650 mg, ORAL, Q6H, PRN, Fever, TAB, 03/04/22 21:48:00 PST amiodarone drip 360 mg [0.5 mg/min] + Dextrose 5% Water premix diluent 200 mL: 200 mL, IV, 03/06/22 20:07:00 PST, 18 hr, Stop date 03/07/22 14:06:00 PST, 16.67 mL/hr, 12 hr, Order Weight 94.4, kg, 2.17, m2 amiodarone drip 360 mg [1 mg/min] + Dextrose 5% Water premix diluent 200 mL: 200 mL, IV, 03/06/22 14:07:00 PST, 6 hr, Stop date 03/06/22 20:06:00 PST, 33.33 mL/hr, 6 hr, Order Weight 94.4, kg, 2.17, m2 aspirin: 81 mg, ORAL, DAILY, EC TAB, 03/06/22 9:00:00 PST atorvastatin: 80 mg, ORAL, QBedtime, TAB, 03/04/22 21:48:00 PST glucagon: 1 mg, SUBQ, As directed, PRN, Blood Glucose, INJ, 03/04/22 21:48:00 PST glucose 40% oral gel: 15 gm = 37.5 mL, ORAL, As directed, PRN, Blood Glucose, GEL, 03/04/22 21:48:00 PST methylPREDNISolone succinate: 60 mg, IV PUSH, DAILY, INJ, 03/06/22 9:00:00 PST Documented Medications Documented Fish Oil 1000 mg oral capsule: 1 Cap, ORAL, DAILY, 0 Refill(s), Maintenance aspirin 325 mg oral enteric coated tablet: = 1 Tab, ORAL, DAILY, 0 Refill(s), Maintenance atenolol 50 mg oral tablet: = 1 Tab, ORAL, DAILY, 0 Refill(s), Maintenance atenolol 50 mg oral tablet: = 1 Tab, ORAL, DAILY, 0 Refill(s), Maintenance atorvastatin 40 mg oral tablet: = 1 Tab, ORAL, QBedtime, 0 Refill(s), Maintenance hydrochlorothiazide-lisinopril 12.5 mg-10 mg oral tablet: = 1 Tab, ORAL, DAILY, 0 Refill(s), Maintenance traMADol 50 mg oral tablet: Q6H, PRN Pain-Whole Scale (Scale 1-10), 0 Refill(s), Maintenance Objective VS/Measurements: Inpt. Vital signs (ST) Vital Signs (last 24 hrs) Last Charted Minimum Maximum Temp(?F) 98.7 (MAR 06 08:00 PST) 98.2 (MAR 05 16:00 PST) 98.9 (MAR 05 19:45 PST) Heart Rate H 106 (MAR 06 11:34 PST) 63 (MAR 05 16:45 PST) C 128 (MAR 06 11:00 PST) Resp Rate H 21 (MAR 06 11:00 PST) 14 (MAR 05 17:45 PST) H 35 (MAR 05 19:15 PST) SBP 134 (MAR 06 11:00 PST) L 87 (MAR 05 20:30 PST) H 149 (MAR 05 17:45 PST) DBP H 96 (MAR 06 11:00 PST) L 40 (MAR 05 21:00 PST) H 110 (MAR 05 15:30 PST) SpO2 94 (MAR 06 11:00 PST) C 85 (MAR 05 17:30 PST) 100 (MAR 05 19:15 PST) OXYFIO2 36 (MAR 05 15:13 PST) 36 (MAR 05 15:13 PST) 44 (MAR 05 15:07 PST) OXYFLOW 2 (MAR 06 11:00 PST) 2 (MAR 06 02:13 PST) 15 (MAR 05 16:00 PST) OXYDELIVERY Nasal cannula Nasal Nasal (MAR 06 11:00 PST) (MAR 05 15:00 PST) (MAR 05 15:00 PST) . General Appearance: in acute distress. HEENT: NCAT. Cardiac: Irregular and tachycardic. No murmurs. Lungs: Clear to auscultation. Abdomen: Soft, non-distended, non-tender. Neurological: Intermittent confusion Skin: No rash present. Extremities: No edema. Results Review Laboratory ResultsLab Results ST Selected Lab Results Lab Results Normalcy Date WBC 19.80 K/mm3 High 03/06/22 03:58 HGB 12.4 gm/dL Low 03/06/22 03:58 HCT 38.4 % Normal 03/06/22 03:58 PLT 227 K/mm3 Normal 03/06/22 03:58 Sodium Level 137 mmol/L Normal 03/06/22 03:58 Chloride Level 99 mmol/L Low 03/06/22 03:58 Potassium Level 4.2 mmol/L Normal 03/06/22 03:58 BUN 25 mg/dL Normal 03/06/22 03:58 Creatinine 1.2 mg/dL Normal 03/06/22 03:58 AST 23 IntUnit/L Normal 03/06/22 03:58 ALT 16 IntUnit/L Normal 03/06/22 03:58 PT - INR 1.2 - High 03/04/22 19:10 PT - Patient 14.2 sec Normal 03/04/22 19:10 PTT - Patient 26.5 sec Normal 03/04/22 19:10 Hemoglobin A1C by HPLC 6.1 % High 03/05/22 05:15 Calcium Level 9.0 mg/dL Normal 03/06/22 03:58 Phosphorus Level 4.7 mg/dL Normal 03/06/22 03:58 Magnesium Level 2.0 mg/dL Normal 03/06/22 03:58 Albumin Level 3.8 gm/dL Normal 03/06/22 03:58 Troponin I 0.02 ng/mL Normal 03/04/22 19:10 CO2/Carbon Dioxide 27 mmol/L Normal 03/06/22 03:58 Glucose, Random 192 mg/dL High 03/06/22 03:58 Cultures Results Culture Results Culture MRSA Screen Final - March 06 2022 08:17:11 PST No MRSA (Methicillin Resistant Staph Aureus) [place] [address] [employer] Laborer: Demond Mccoy MD Chest x-ray shows mild vascular congestion Assessment and Plan 1. Acute CVA--status post tPA . Neurologist is following patient. Patient has new onset A. 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 2. New onset atrial fibrillation with rapid ventricular rate--obtain echocardiogram . On oral amioadrone. Patient is started on amiodarone drip. Start heparin drip tomorrow 3. COPD exacerbation--patient started on steroids and bronchodilator treatments 4. Delirium--patient was receiving Ativan as needed. off precedex 5. Hematuria-- improving Cumulative time spent in management of patient is over 45 minutes excluding procedures. Upon my evaluation, patient has high degree of imminent or life threatening deterioration due to present condition. Time includes personally examining patient, reviewing records including labs, reviewing radiology examinations, discussing with consultants and evaluating treatment options and monitoring for potential decompensation. This dictation was transcribed using [employer] voice recognition technology and may include unintended recognition errors in the text. [id number] Male 03/06/2022 [facility] Progress Note Patient: SHERRON SURESH Age: 76 years Legal Sex: Male : 1945 Author: MD Braulio, Milton Carlson Assessment and Plan 76Male initially admitted to ICU s/p tpa now transferring to medical floor for further monitoring [id number] Male 03/06/2022 [facility] Progress Note Patient: SHERRON SURESH Age: 76 years Legal Sex: Male : 1945 Author: MD Gerardo, Srinivasa V Subjective Patient is more confused today. Trying to get out of bed. In rapid A. fib and started on Cardizem drip Health Status Current medications: Active inpatient medications ACTIVE INPT MEDS: albuterol-ipratropium (DuoNeb) 3 mL INH Q4H atorvastatin 80 mg ORAL QBedtime furosemide (Lasix) 40 mg IV PUSH DAILY methylPREDNISolone (methylPREDNISolone succinate) 60 mg IV PUSH Q12H Pharmacy Communication N/A As directed Pharmacy Communication N/A As directed ACTIVE PRN MEDS: acetaminophen 650 mg ORAL Q6H glucagon 1 mg SUBQ As directed glucose (Dextrose 50% Inj 50 mL) 25 mL IV As directed glucose (Dextrose 50% Inj 50 mL) 50 mL IV As directed glucose (glucose 40% oral gel) 15 gm ORAL As directed LORazepam (Ativan) 1 mg IV Q4H ONE TIME MEDS: (Completed) amiodarone 150 mg IVPB ONCE (Completed) dilTIAZem 10 mg IV PUSH ONCE (Completed) dilTIAZem 10 mg IV PUSH ONCE (Discontinued) LORazepam (Ativan) 1.5 mg IV ONCE (Completed) tenecteplase 23.5 mg IV PUSH ONCE ACTIVE IV MEDS: dilTIAZem 100 mg [5 mg/hr] + sodium chloride 0.9% 100 mL (dilTIAZem additive 100 mg [5 mg/hr] + sodium chloride 0.9% 100 mL) 100 mL 5 mL/hr, (Selected) Inpatient Medications Ordered Ativan: 1 mg, IV, Q4H, PRN, Anxiety, Routine, INJ, 03/05/22 13:18:00 PST Dextrose 50% Inj 50 mL: = 25 mL, IV, As directed, PRN, Blood Glucose, INJ, 03/04/22 21:48:00 PST Dextrose 50% Inj 50 mL: = 50 mL, IV, As directed, PRN, Blood Glucose, INJ, 03/04/22 21:48:00 PST DuoNeb: = 3 mL, INH, Q4H, NEB AMP, 03/05/22 13:06:00 PST Lasix: 40 mg, IV PUSH, DAILY, INJ, 03/05/22 12:01:00 PST Pharmacy Communication: As Directed, 03/04/22 21:48:00 PST, N/A, 03/04/22 21:48:00 PST Pharmacy Communication: No Anticoag/antithrombotic/antiplat elet for 24hrs, 03/04/22 19:17:00 PST, N/A, 03/04/22 19:17:00 PST acetaminophen: 650 mg, ORAL, Q6H, PRN, Fever, TAB, 03/04/22 21:48:00 PST atorvastatin: 80 mg, ORAL, QBedtime, TAB, 03/04/22 21:48:00 PST dilTIAZem additive 100 mg [5 mg/hr] + sodium chloride 0.9% 100 mL: 100 mL, IV, 03/05/22 12:20:00 PST, Loading Dose Reference 10 mg, 20 mg, other, Goal Parameters = HR less than 110, 5 mL/hr, 20 hr, Order Weight 94.4, kg, 2.17, m2 glucagon: 1 mg, SUBQ, As directed, PRN, Blood Glucose, INJ, 03/04/22 21:48:00 PST glucose 40% oral gel: 15 gm = 37.5 mL, ORAL, As directed, PRN, Blood Glucose, GEL, 03/04/22 21:48:00 PST methylPREDNISolone succinate: 60 mg, IV PUSH, Q12H, INJ, 03/05/22 13:06:00 PST Documented Medications Documented Fish Oil 1000 mg oral capsule: 1 Cap, ORAL, DAILY, 0 Refill(s), Maintenance aspirin 325 mg oral enteric coated tablet: = 1 Tab, ORAL, DAILY, 0 Refill(s), Maintenance atenolol 50 mg oral tablet: = 1 Tab, ORAL, DAILY, 0 Refill(s), Maintenance atenolol 50 mg oral tablet: = 1 Tab, ORAL, DAILY, 0 Refill(s), Maintenance atorvastatin 40 mg oral tablet: = 1 Tab, ORAL, QBedtime, 0 Refill(s), Maintenance hydrochlorothiazide-lisinopril 12.5 mg-10 mg oral tablet: = 1 Tab, ORAL, DAILY, 0 Refill(s), Maintenance traMADol 50 mg oral tablet: Q6H, PRN Pain-Whole Scale (Scale 1-10), 0 Refill(s), Maintenance Objective VS/Measurements: Inpt. Vital signs (ST) Vital Signs (last 24 hrs) Last Charted Minimum Maximum Temp(?F) 98.4 (MAR 05 12:00 PST) 97.3 (MAR 05 06:00 PST) 98.4 (MAR 05 12:00 PST) Temp(?C) 36.9 (MAR 04 23:15 PST) 36.9 (MAR 04 23:15 PST) 36.9 (MAR 04 23:15 PST) Heart Rate H 113 (MAR 05 13:00 PST) L 55 (MAR 05 09:00 PST) C 144 (MAR 04 19:02 PST) Resp Rate H 31 (MAR 05 13:00 PST) 14 (MAR 04 22:45 PST) H 31 (MAR 05 11:00 PST) SBP H 163 (MAR 05 13:00 PST) 104 (MAR 04 20:15 PST) H 182 (MAR 05 12:00 PST) DBP H 110 (MAR 05 13:00 PST) L 48 (MAR 05 09:00 PST) C 143 (MAR 04 19:40 PST) SpO2 95 (MAR 05 13:00 PST) C 86 (MAR 04 19:15 PST) 100 (MAR 04 22:15 PST) OXYFLOW 6 (MAR 05 08:00 PST) 2 (MAR 04 19:40 PST) 6 (MAR 04 19:43 PST) OXYDELIVERY Nasal cannula Room a Room a (MAR 05 13:00 PST) (MAR 04 19:02 PST) (MAR 04 19:02 PST) . General Appearance: in acute distress. HEENT: NCAT. Cardiac: Irregular and tachycardic. No murmurs. Lungs: Clear to auscultation. Abdomen: Soft, non-distended, non-tender. Neurological: Intermittent confusion Skin: No rash present. Extremities: No edema. Results Review Laboratory ResultsLab Results ST Selected Lab Results Lab Results Normalcy Date WBC 12.70 K/mm3 High 03/05/22 05:15 HGB 11.6 gm/dL Low 03/05/22 05:15 HCT 35.6 % Low 03/05/22 05:15 PLT 246 K/mm3 Normal 03/05/22 05:15 Sodium Level 136 mmol/L Normal 03/05/22 05:15 Chloride Level 102 mmol/L Normal 03/05/22 05:15 Potassium Level 3.9 mmol/L Normal 03/05/22 05:15 BUN 13 mg/dL Normal 03/05/22 05:15 Creatinine 0.8 mg/dL Normal 03/05/22 05:15 AST 20 IntUnit/L Normal 03/05/22 05:15 ALT 15 IntUnit/L Normal 03/05/22 05:15 PT - INR 1.2 - High 03/04/22 19:10 PT - Patient 14.2 sec Normal 03/04/22 19:10 PTT - Patient 26.5 sec Normal 03/04/22 19:10 Hemoglobin A1C by HPLC 6.1 % High 03/05/22 05:15 Calcium Level 8.8 mg/dL Low 03/05/22 05:15 Phosphorus Level 3.6 mg/dL Normal 03/05/22 05:15 Magnesium Level 1.8 mg/dL Normal 03/05/22 05:15 Albumin Level 3.6 gm/dL Normal 03/05/22 05:15 Troponin I 0.02 ng/mL Normal 03/04/22 19:10 CO2/Carbon Dioxide 26 mmol/L Normal 03/05/22 05:15 Glucose, Random 129 mg/dL High 03/05/22 05:15 Chest x-ray shows mild vascular congestion Assessment and Plan 1. Acute CVA--status post tPA . Obtain MRI head tomorrow. Repeat CT head in 24 hours. Neurologist is following patient. Patient has new onset A. 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 New onset atrial fibrillation with rapid ventricular rate--obtain echocardiogram . We will start anticoagulation after repeat head CT is negative. Patient is started on Cardizem drip 3. COPD exacerbation--patient started on steroids and bronchodilator treatments 4. Delirium--patient was receiving Ativan as needed. if no improvement will start Haldol Cumulative time spent in management of patient is over 45 minutes excluding procedures. Upon my evaluation, patient has high degree of imminent or life threatening deterioration due to present condition. Time includes personally examining patient, reviewing records including labs, reviewing radiology examinations, discussing with consultants and evaluating treatment options and monitoring for potential decompensation. This dictation was transcribed using [employer] voice recognition technology and may include unintended recognition errors in the text. [id number] Male 03/05/2022 [facility] Neurology Consultation Patient: SHERRON SURESH Age: 76 years Legal Sex: MALE : 1945 _ 03/05/2022 08:02 PST Altered mental status; ALTERED MENTAL STATUS ATRIAL FIBRILLATION WITH RAPID VENTRICULAR RESPONSE Reason for consult: Altered mental status, probable stroke. History of present illness: Patient with recent TIAs and endarterectomy on the left side in January 2022 presents due to acute change in mental status. Patient has no recollection to the above events. He is back to his baseline today. He is status post tPA. He denies focal neurologic deficits. He is still in the ICU according to acute thrombolysis protocol. Neurology consulted by ER physician. No qualifying data available. Review of System: Constitutional: Negative except as noted in HPI. EENT: Negative except as noted in HPI. Respiratory: Negative except as noted in HPI. Cardiovascular: Negative except as noted in HPI. Lymphatic: Negative except as noted in HPI. Gastrointestinal: Negative except as noted in HPI. Genitourinary: Negative except as noted in HPI. LNMP: _ (if applicable) Musculoskeletal: Negative except as noted in HPI. Skin: Negative except as noted in HPI. Neurologic: Negative except as noted in HPI. Psychiatric: Negative except as noted in HPI. Review of Systems was completed. Vital Signs (last 24 hrs) Last Charted Minimum Maximum Temp(?F) 97.3 (MAR 05 06:00 PST) 97.3 (MAR 05 06:00 PST) 98.2 (MAR 04 23:45 PST) Temp(?C) 36.9 (MAR 04 23:15 PST) 36.9 (MAR 04 23:15 PST) 36.9 (MAR 04 23:15 PST) Heart Rate H 120 (MAR 05 07:00 PST) 60 (MAR 05 06:30 PST) C 144 (MAR 04 19:02 PST) Resp Rate H 22 (MAR 05 07:00 PST) 14 (MAR 04 22:45 PST) H 29 (MAR 04 20:15 PST) SBP 107 (MAR 05 07:00 PST) 104 (MAR 04 20:15 PST) H 160 (MAR 05 04:30 PST) DBP L 49 (MAR 05 07:00 PST) L 49 (MAR 05 07:00 PST) C 143 (MAR 04 19:40 PST) SpO2 97 (MAR 05 07:00 PST) C 86 (MAR 04 19:15 PST) 100 (MAR 04 22:15 PST) Physical Examination: General Appearance: No acute distress. HEENT: Normocephalic. PERRL. Cardiac: Normal rate. There is no peripheral edema, cyanosis or pallor. Lungs: Clear to auscultation and percussion without rales, rhonchi, wheezing or diminished breath sounds. Abdomen: Positive bowel sounds. Soft, non-distended, non-tender. No guarding or rebound. No masses. Musculoskeletal: No joint deformity, erythema, or tenderness Neurological: Patient is awake, alert, oriented x4. Cranial nerves intact. There is no apparent focal weakness. Gait not tested. Skin: Skin normal color, texture and turgor Genitalia: Deferred. Psychiatric: Normal thinking process noticed. Patient reports no hallucinations or paranoid ideations. (Last three charted values) WBC H 12.70 (MAR 05) H 12.10 (MAR 04) Hgb L 11.6 (MAR 05) L 13.4 (MAR 04) Hct L 35.6 (MAR 05) 39.3 (MAR 04) Plt 246 (MAR 05) 264 (MAR 04) Na 136 (MAR 05) L 135 (MAR 04) K 3.9 (MAR 05) 3.9 (MAR 04) CO2 26 (MAR 05) L 21 (MAR 04) Cl 102 (MAR 05) L 99 (MAR 04) Cr 0.8 (MAR 05) 1.3 (MAR 04) BUN 13 (MAR 05) 13 (MAR 04) Glu Rndm H 129 (MAR 05) H 229 (MAR 04) Mg 1.8 (MAR 05) Phos 3.6 (MAR 05) Ca L 8.8 (MAR 05) 9.0 (MAR 04) PT 14.2 (MAR 04) INR H 1.2 (MAR 04) PTT 26.5 (MAR 04) CT Brain WO Contrast 03/04/22 18:57:37 Impression: Atrophy. No acute hemorrhage. No acute infarcts are seen. However, acute infarcts cannot be excluded. If clinically indicated, MRI is recommended for further evaluation. This report was electronically signed by Jan Baron MD on 03/04/2022 7:16:30 PM. The above findings were reported to Dr. Rodriguez . The call was initiated at 03/04/2022 7:18:22 PM. Chest 1 Vw Portable 03/04/22 21:14:09 IMPRESSION: Cardiomegaly with mild pulmonary vascular congestion. Calcified aorta. Spondylosis thoracic spine. Signed by: Jesus Garcia on 03/04/2022 9:[address] Angio Head/Neck W Contrast 03/04/22 20:52:10 Impression: No evidence of hemodynamically significant stenosis in the neck. No dissection or occlusion Inflammatory changes surrounding the distal left common carotid and carotid bulb suggest prior endarterectomy. No evidence of hemodynamically significant stenosis in the head. No aneurysm or occlusion. No evidence of vascular mass. This report was electronically signed by Fidencio Del Rio MD on 03/04/2022 9:40:39 PM. Assessment: Atrial fibrillation with rapid ventricular response (Unspecified atrial fibrillation) Altered mental status (Altered mental status, unspecified) Plan: 26-year-old male with vascular risk factors and probable TIA versus minor CVA. He is back to baseline after acute thrombolysis yesterday. His work-up is negative for condition requiring invasive approach. Continue with TNK protocol. I recommend physical, occupational and speech therapy evaluation and treatment. Continue with permissive hypertension during hospital stay, normothermia and euglycemia. I have reviewed patients medical records, labs and images, results as above. Counseling included patients condition, prognosis and treatment. Patient was interactive, attentive, asked questions and verbalized understanding. We will provide primary care provider with the copy of this note. It is duly noted that this narrative may have been transcribed utilizing [employer] voice recognition software and may include unintended recognition errors within the text. [id number] Male 03/05/2022 [facility] ED Physician Notes Patient: MAYRA SURESH Age: 76 years Legal Sex: MALE : 1945 Chief Complaint biba from home for altered mental status started about 1.5 hours prior to arrival. 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 EMS states he been working in the yard, went in, checked on him and he was confused, altered, not answering questions. EMS states moving all extremities, states he is 'posturing' States he has a previous CVA in the past, currently on aspirin and Plavix as well as other meds for diabetes. Is unavailable at this time for further history. Complete HPI, review of systems, past medical history, past surgical history, social history, family history, and medication history limited secondary to _. A history obtained through chart review, EMS report if available, and outside records Additional History Obtained From: EMS Documentation Reviewed: _ Physical Exam Triage Vital Signs 03/04/22 19:02 T: 98.0 F HR: 144 RR: 20 BP: 112/67 SPO2: 91% O2 Delivery: Room air HT: 180.34 cm WT: 94.4 kg(Dose Calc Wt.) WT: 94.4 kg BMI: 30.54 - Vital Signs: Abnormal for tachycardia Oxygen Saturation: Inadequate on room air General: The patient is listless and oriented x0 (person, place, time) EYE: Pupils are equal, round and reactive to light and accommodation. pupils 3-4mm, equal, minimally reactive HEENT: Normocephalic, atraumatic, CV: Tachyc rate and ireg ireg rhythm, normal S1-S2. No clicks, rubs, murmurs auscultated. No JVD. Lungs: Clear to auscultation bilaterally without crackles, rhonchi, or wheezes Abdomen: Soft, nondistended, and nontender in all 4 quadrants without any palpable or pulsatile masses. Vascular: +2 Radial Pulses Bilateral. +2 PT/PT Bilaterally. Neuro: GCS 8 E(4) V(2) M(2), listless, extension to pain, not following commands, moving all extremities Skin: Warm, dry, and without rash Extremities: No cyanosis, clubbing, edema Musculoskeletal: No tenderness to palpation of the major joints or long bones ED Course, Data, and Interventions Orders Ativan, 1.5 mg, 0.75 mL, IV, ONCE Pharmacy Communication, No Anticoag/antithrombotic/antiplat elet for 24hrs, N/A, As directed dilTIAZem, 10 mg, 2 mL, IV PUSH, ONCE tenecteplase, 23.5 mg, 4.7 mL, IV PUSH, ONCE Procedures Critical Care Procedure Note Authorized and Performed by: Jesus Rodriguez MD Total critical care time: Approximately 40 minutes Patient has a condition of CVA. Due to a high probability of clinically significant, life threatening deterioration, the patient required my highest level of preparedness to intervene emergently and I personally spent this critical care time directly and personally managing the patient. This critical care time included obtaining a history; examining the patient; pulse oximetry; ordering and review of studies; arranging urgent treatment with development of a management plan; evaluation of patient's response to treatment; frequent reassessment; and, discussions with other providers. Interventions included reevaluations, discussion with plumbing installer, discussion with neurologist This critical care time was performed to assess and manage the high probability of imminent, life-threatening deterioration that could result in multi-organ failure. It was exclusive of separately billable procedures and treating other patients and teaching time. Please see MDM section and the rest of the note for further information on patient assessment and treatment. Diagnostics Imaging results below were independently viewed and interpreted by me. General Diagnostic Result Type: Chest 1 Vw Portable Result Date: March 04, 2022 19:01 PST Reason For Exam: Other REPORT: INDICATION:Stroke/TIACOMPARISON: December 10, 2013 FINDINGS: Cardiomegaly is seen. There is no evidence of infiltrates or effusions. The aorta is calcified. Mild pulmonary vascular congestion is seen. Soft tissues are unremarkable. Spondylosis is seen throughout the spine. IMPRESSION: Cardiomegaly with mild pulmonary vascular congestion.Calcified aorta.Spondylosis thoracic spine. Signed by: Jesus Garcia on 03/04/2022 9:14 PM Computerized Tomography Result Type: CT Brain WO Contrast Result Date: March 04, 2022 19:01 PST Reason For Exam: Stroke/TIA REPORT: Clinical Historystroke/TIAComparison:CT HEAD on 11/22/2013, 83 images.Technique: Noncontrast axial images were obtained from the skull base to the vertex. Sagittal and coronal reconstructions were performed.All CT scans at this medical facility are performed using dose modulation techniques as appropriate to a performed exam including the following: Automated exposure control was utilized; adjustment of the mA and/or kV according to patient size; and use of iterative reconstruction technique.All CT studies are reported to the Dose Index Registry of the [employer]. Without ContrastRadiation Dose: CTDI (mGy): 46.66; DLP (mGy-cm): 924.79GLSHERRON CURTIS, [id number] Findings: There was dilatation of the ventricles and sulci.No acute hemorrhage is seen.No acute large vessel cerebral infarcts were seen.Old lacunar infarct.Sinus disease.Motion artifact.No fractures were seen.There was decreased attenuation seen within the periventricular white matter which was nonspecific however may represent small vessel ischemia. Impression: Atrophy.No acute hemorrhage.No acute infarcts are seen. However, acute infarcts cannot be excluded. If clinically indicated, MRI is recommended for further evaluation.This report was electronically signed by Jan Baron MD on 03/04/2022 7:16:30 PM.The above findings were reported to Dr. Rodriguez . The call was initiated at 03/04/2022 7:18:22 PM. Result Type: CT Angio Head/Neck W Contrast Result Date: March 04, 2022 20:52 PST Reason For Exam: Other REPORT: Clinical HistorystrokeComparison:CT HEAD on 03/04/2022, 244 images.Technique: Axial images are acquired from the aortic arch to the vertex, during the dynamic injection of intravenous contrast. Data is reconstructed in the sagittal and coronal planes. Multiplanar MIP reconstruction imaging was provided and reviewed at the workstation.MIPS reconstruction was performed in multiple planes.All CT scans at this medical facility are performed using dose modulation techniques as appropriate to a performed exam including the following: Automated exposure control was utilized; adjustment of the mA and/or kV according to patient size; and use of iterative reconstruction technique.All CT studies are reported to the Dose Index Registry of the [employer]. 3D images be reconstructed or obtained with maximum intensity projection postprocessing (MIP), volume rendered or other 3D technique.Contrast: isovue 370/100mlRadiation Dose: CTDI (mGy): 25.26; DLP (mGy-cm): 988.98GLSHERRON CURTIS, [id number] Findings: CTA neck: Aortic arch is normal in caliber without significant atherosclerotic changes.The right brachiocephalic, common carotid arteries, carotid bulb as well as the internal carotid artery are patent. mild plaque in the carotid bulb and distal common carotid.The left common carotid artery, carotid bulb and internal carotid artery are patent. mild inflammatory changes along the distal carotid and carotid bulb.The vertebral arteries are patent. CTA head: Cavernous internal carotid arteries are patent. The A1, and A2 segments of the anterior cerebral artery are patent. There is a patent anterior communicating artery. The M1, and M2 segments of the middle cerebral artery are patent. There is a symmetric distal branch pattern. The posterior inferior cerebellar arteries are patent. Basilar artery is unremarkable. Posterior superior cerebral arteries are unremarkable. The P1, and P2 segments of the posterior cerebral artery are patent. Posterior communicating arteries are present. Bony structures are intact. No evidence of an acute fracture. The airway is midline. Thyroid gland is unremarkable. Lung apices demonstrate subtle emphysematous changes with dependent basilar lung disease. There is no enlarged cervical lymphadenopathy. Impression: No evidence of hemodynamically significant stenosis in the neck. No dissection or occlusionInflammatory changes surrounding the distal left common carotid and carotid bulb suggest prior endarterectomy.No evidence of hemodynamically significant stenosis in the head. No aneurysm or occlusion.No evidence of vascular mass.This report was electronically signed by Fidencio Del Rio MD on 03/04/2022 9:40:39 PM. Order Name: ECG 12 Lead - CV (ED) Date Performed: 03/04/2022 20:09:52 PST Status: Completed Impression: EKG: EKG results below were independently viewed and interpreted by me. EKG Interpretation (Read by ED MD) Indication: To evaluate for myocardial infarction Findings: Rate 121. Ireg Ireg rhythm. Normal axis. Normal intervals. Normal QRS. No ST or T wave changes. Impression: Afib with RVR Re-evaluation 03/04/2022 190 - I attempted to call patient's , no answer 03/04/20221909 - D/W Dr. Cagle, neurologist on-call, discussed history, physical examination, my interpretation of head CT at this time is no bleed. He recommends tenecteplase as long as labs look okay. He understands CTA not going to be obtainable at this time as the patient is unable to hold still. Wants me to wait for labs. I asked RN to call lab and make sure lab is doing his labs 1st 03/04/20221918 - [facility] states CT neg for acute findings including bleed 03/04/20221929 - RN placed blankenship, now has BRB in blankenship, appears traumatic, no urine in blankenship, I will go ahead and continue to give TN K 03/04/20221937 - INR/Plts ok, pharmacist to give TNK 03/04/2022 1950 - D/W Dr Flowers, service on-call, requested admission status post TNK, he requests CT angio needs to be done prior to him excepting the patient for admission. I discussed with him patient listless, not holding still, I am very worried about the safety of procedural sedation for CTA 03/04/20221954 - Spoke with Tsering, discussed Dr Flowers's recs, he recommends we try ativan first 03/04/20222143 - D/W Dr Flowers, CTA negative, will admit Medical Decision Making 76 Years Male by ambulance from home, stroke alert, last known well approximately 80 minutes prior to arrival. Patient with GCS of 8, not answering questions, seems to be posturing, ext to pain. Anticoagulated on aspirin and Plavix, reportedly with history of CVA, no absolute contraindications to TNK. CT of the brain was negative. Not hypoglycemic. Differential includes ischemic CVA, large vessel occlusion, ICH/SAH. CT of the brain was negative. CTA negative for large vessel occlusion. Sepsis, severe sepsis and septic shock were considered. No obvious source of infection, afebrile Diagnosis Altered mental status (Altered mental status, unspecified, R41.82) Atrial fibrillation with rapid ventricular response (Unspecified atrial fibrillation, I48.91) Social Determinants of Health: _ Condition Guarded Disposition Admit to ICU Prescriptions Current medications were reviewed and updated. 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/PA Time Patient Seen face to face: Date and time 03/04/2022 18:47:39 Past Medical History Active Problems Body mass index 30+ - obesity Elevated serum cholesterol High blood pressure TIA (transient ischemic attack) Allergies NKA Home Medications aspirin 325 mg oral enteric coated tablet, 1 Tab, ORAL, DAILY atenolol 50 mg oral tablet, 1 Tab, ORAL, DAILY atenolol 50 mg oral tablet, 50 mg, 1 Tab, ORAL, DAILY atorvastatin 40 mg oral tablet, 1 Tab, ORAL, QBedtime Fish Oil 1000 mg oral capsule, 1 Cap, ORAL, DAILY hydrochlorothiazide-lisinopril 12.5 mg-10 mg oral tablet, 1 Tab, ORAL, DAILY traMADol 50 mg oral tablet, Q6H, PRN Lab Results Laboratory results below were independently viewed and interpreted by me. Labs All 24H Lab Results Date Influenza A Agn Molecular Negative 03/04/22 19:20 PST Influenza B Agn Molecular Negative 03/04/22 19:20 PST Auto NRBC % 0.1 % 03/04/22 19:10 PST Respiratory Syncytial Virus Mo Negative 03/04/22 19:20 PST Auto Neutrophil Percent 82.6 % (HIGH) 03/04/22 19:10 PST Auto Neutrophil Absolute 10.0 K/mm3 (HIGH) 03/04/22 19:10 PST Auto Lymphocyte Percent 8.8 % (LOW) 03/04/22 19:10 PST Auto Lymphocyte Absolute 1.1 K/mm3 03/04/22 19:10 PST Auto Monocyte Percent 7.4 % 03/04/22 19:10 PST Auto Monocyte Absolute 0.9 K/mm3 03/04/22 19:10 PST Auto Basophil Percent 0.6 % 03/04/22 19:10 PST Auto Basophil Absolute 0.1 K/mm3 03/04/22 19:10 PST Auto Eosinophil Percent 0.6 % 03/04/22 19:10 PST Auto Eosinophil Absolute 0.1 K/mm3 03/04/22 19:10 PST SARS-CoV-2 Molecular Negative 03/04/22 19:20 PST SARS-CoV-2 Source Nasopharyngeal 03/04/22 19:20 PST Health Care Worker? Unknown 03/04/22 19:20 PST Patient From Congregate Area? Unknown 03/04/22 19:20 PST Symptomatic per CDC? Unknown 03/04/22 19:20 PST SARS-CoV-2 First test? Unknown 03/04/22 19:20 PST SARS-CoV-2 Is the Patient Hosp Unknown 03/04/22 19:20 PST SARS-CoV-2 Is the Patient Preg Unknown 03/04/22 19:20 PST SARS-CoV-2 Is the Patient in I Unknown 03/04/22 19:20 PST WBC 12.10 K/mm3 (HIGH) 03/04/22 19:10 PST RBC 4.27 M/mm3 (LOW) 03/04/22 19:10 PST HGB 13.4 gm/dL (LOW) 03/04/22 19:10 PST HCT 39.3 % 03/04/22 19:10 PST MCV 92.2 fL 03/04/22 19:10 PST MCH 31.3 pg 03/04/22 19:10 PST MCHC 34.0 gm/dL 03/04/22 19:10 PST RDW 14.3 % 03/04/22 19:10 PST PLT 264 K/mm3 03/04/22 19:10 PST MPV 10.0 fL 03/04/22 19:10 PST Fingerstick/cap blood sugar 193 mg/dL 03/04/22 19:02 PST PT - Patient 14.2 sec 03/04/22 19:10 PST PT - INR 1.2 - (HIGH) 03/04/22 19:10 PST PTT - Patient 26.5 sec 03/04/22 19:10 PST Sodium Level 135 mmol/L (LOW) 03/04/22 19:10 PST Potassium Level 3.9 mmol/L 03/04/22 19:10 PST Chloride Level 99 mmol/L (LOW) 03/04/22 19:10 PST CO2/Carbon Dioxide 21 mmol/L (LOW) 03/04/22 19:10 PST Anion Gap 15 mmol/L 03/04/22 19:10 PST Glucose, Random 229 mg/dL (HIGH) 03/04/22 19:10 PST POCT - Glucose (Capillary) 228 mg/dL (HIGH) 03/04/22 18:59 PST BUN 13 mg/dL 03/04/22 19:10 PST Creatinine 1.3 mg/dL 03/04/22 19:10 PST BUN/Creat Ratio 10 (LOW) 03/04/22 19:10 PST Osmolality, Calculated 277 mOsm/L 03/04/22 19:10 PST Calcium Level 9.0 mg/dL 03/04/22 19:10 PST Total Protein 7.3 gm/dL 03/04/22 19:10 PST Albumin Level 3.8 gm/dL 03/04/22 19:10 PST Globulin Level 3.5 gm/dL 03/04/22 19:10 PST A/G Ratio 1.1 (LOW) 03/04/22 19:10 PST Bilirubin, Total 0.4 mg/dL 03/04/22 19:10 PST AST 25 IntUnit/L 03/04/22 19:10 PST ALT 15 IntUnit/L 03/04/22 19:10 PST ALP 63 IntUnit/L 03/04/22 19:10 PST Troponin I 0.02 ng/mL 03/04/22 19:10 PST eGFR 55 mL/min/1.73m2 03/04/22 19:10 PST Images Images below were independently viewed and interpreted by me. [id number] Male 03/05/2022 [facility] Discharge Summaries Results Value Date Source Discharge Summary Patient: SHERRON SURESH Age: 76 years Legal Sex: Male : 1945 Author: MD Morgan, Clayton Basic Information Documented by: Attending Physician. Discharge Information Discharge Information: Admit Date: 03/26/22 17:18 Discharge Date: 04/11/22 Reason For Visit: SWING BED Discharge Location: Home Physicians Involved With Care Admitting: MD Anne Tasha Attending: MD Anne Tasha Primary Care: MD MARTHA . Conditions Present on Admission: DIagnosis/Condition: Active Diagnoses Anemia (Anemia, unspecified) Effusion of right knee joint (Effusion, right knee) Acute respiratory failure with hypoxia (Acute respiratory failure with hypoxia) Tobacco abuse (Tobacco use) COPD without exacerbation (Chronic obstructive pulmonary disease, unspecified) Right knee pain (Pain in right knee) Hyperglycemia (Hyperglycemia, unspecified) Prediabetes (Prediabetes) History of TIA (transient ischemic attack) (Personal history of transient ischemic attack (TIA), and cerebral infarction without residual deficits) Urinary catheter present (Presence of urogenital implants) Urine retention (Retention of urine, unspecified) Atrial fibrillation with RVR (Unspecified atrial fibrillation) Seizure (Unspecified convulsions) MSSA bacteremia (Bacteremia) Generalized weakness (Weakness) . Diagnoses: Active Diagnoses Anemia (Anemia, unspecified) Effusion of right knee joint (Effusion, right knee) Acute respiratory failure with hypoxia (Acute respiratory failure with hypoxia) Tobacco abuse (Tobacco use) COPD without exacerbation (Chronic obstructive pulmonary disease, unspecified) Right knee pain (Pain in right knee) Hyperglycemia (Hyperglycemia, unspecified) Prediabetes (Prediabetes) History of TIA (transient ischemic attack) (Personal history of transient ischemic attack (TIA), and cerebral infarction without residual deficits) Urinary catheter present (Presence of urogenital implants) Urine retention (Retention of urine, unspecified) Atrial fibrillation with RVR (Unspecified atrial fibrillation) Seizure (Unspecified convulsions) MSSA bacteremia (Bacteremia) Generalized weakness (Weakness) . Allergies: Allergic Reactions (Selected) NKA. 76 yo male with hx of HTN, HLD, tob abuse, COPD, pre-diabetes, s/p carotid endarterectomy 02/21/22 who is admitted to [facility] Swing bed for cont IV Abx therapy for MSSA Bacteremia with IV Ancef thru 04/10/22 and rehab for weakness after an acute hospitalization where he was treated for an acute CVA with tPA and he suffered a seizure and developed atrial fibrillation. Has a blankenship catheter for urine retention - has not had any problems with urination previously and no dx of prostate problems. Seen by Dr. Cagle neurology on 04/10/22 and recommended to continue Keppra and follow up as outpt, 1. Weakness: Swing bed, PT, OT, fall precautions. 2. TIA: On Eliquis, ASA, cont Lipitor, patient presented with signs/symptoms of CVA, CT head was negative for hemorrhagic stroke - Neurology recommended tPA. Subsequent MRI brain was negative for stroke, CT H&N angio was negative, Echo with bubble was negative. 3. New onset AFib: Currently in NSR, Cont Metoprolol and Digoxin and follow up as outpatient, cont Eliquis. 4. Urinary retention: On Blankenship, Cont Bladder training with new parameters. Nurse informed for bladder scanning. Cont Flomax. 5. Seizure like activity: CT and MRI brain were negative for acute process, Cont Kecynthiara, scheduled for EEG on today at [facility] with Dr. Cagle, will follow up with Neurology. 6. MSSA and E faecalis bacteremia: Cont Ancef until 04/10/22. Missed the dose last night, will restart and last dose tomorrow am. 7. COPD: Chronic, not on exacerbation, need O2 at night, Cont Budesonide and Duoneb treatments, may need Home O2 nocturnal. 8. HTN: Cont Lisinopril and Metoprolol. 9. Pre-diabetes: Cont Insulin sliding scale. 10. HLD: Cont Lipitor 11. Smoking: Nicotine patch and counseling done. 12. 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 13. Anemia: Hgb stable and improving, no sign of bleed. Laboratory Results: Lab Results ST Selected Lab Results Lab Results Normalcy Date WBC 9.20 K/mm3 Normal 04/10/22 05:25 HGB 9.5 gm/dL Low 04/10/22 05:25 HCT 29.0 % Low 04/10/22 05:25 PLT 368 K/mm3 Normal 04/10/22 05:25 Sodium Level 138 mmol/L Normal 04/10/22 05:25 Chloride Level 101 mmol/L Normal 04/10/22 05:25 Potassium Level 3.9 mmol/L Normal 04/10/22 05:25 BUN 17 mg/dL Normal 04/10/22 05:25 Creatinine 1.0 mg/dL Normal 04/10/22 05:25 AST 13 IntUnit/L Low 04/10/22 05:25 ALT 6 IntUnit/L Low 04/10/22 05:25 Calcium Level 8.6 mg/dL Low 04/10/22 05:25 Magnesium Level 1.8 mg/dL Normal 04/10/22 05:25 Albumin Level 2.9 gm/dL Low 04/10/22 05:25 CO2/Carbon Dioxide 29 mmol/L Normal 04/10/22 05:25 Glucose, Random 104 mg/dL Normal 04/10/22 05:25 , Unresulted Labs/Orders ST Results Pending No Pending Orders Found Within Electronic Medical Record . MEDICATIONS NEW MEDICATIONS YOU WILL BE TAKING AT HOME WITH INSTRUCTIONS ON HOW AND WHEN TO TAKE FOR EACH MEDICATION. budesonide (budesonide 0.5 mg/2 mL inhalation suspension) 2 mL = 0.5 mg Deep breath EVERY 12 HOURS NEBULIZER AMPULE Last Dose: 04/11/2022 07:13 aspirin (Aspir 81 oral enteric coated tablet) 1 Tab = 81 mg Oral DAILY Enteric coated tablet Last Dose: 04/11/2022 08:38 metoprolol (Metoprolol Tartrate 50 mg oral tablet) 1 Tab = 50 mg Oral TWICE DAILY Tablet Last Dose: 04/11/2022 08:38 atorvastatin (atorvastatin 80 mg oral tablet) 1 Tab = 80 mg Oral DAILY Tablet apixaban (Eliquis 5 mg oral tablet) 1 Tab = 5 mg Oral TWICE DAILY Tablet furosemide (furosemide 20 mg oral tablet) 1 Tab = 20 mg Oral DAILY Tablet pantoprazole (pantoprazole 40 mg oral enteric coated tablet) 1 Tab = 40 mg Oral BEFORE BREAKFAST Enteric coated tablet Last Dose: 04/11/2022 05:34 nicotine (nicotine 14 mg/24 hr transdermal film, extended release) 1 Patch Top of the skin in one area DAILY Patch 7 Day(s) Last Dose: 04/08/2022 09:27 levETIRAcetam (Keppra 500 mg oral tablet) 1 Tab = 500 mg Oral TWICE DAILY Tablet Last Dose: 04/11/2022 08:38 tamsulosin (tamsulosin 0.4 mg oral capsule) 1 Cap = 0.4 mg Oral AT BEDTIME Capsule lisinopril (lisinopril 10 mg oral tablet) 1 Tab = 10 mg Oral DAILY Tablet digoxin (digoxin 125 mcg (0.125 mg) oral tablet) 1 Tab = 0.125 mg Oral DAILY Tablet cholecalciferol (cholecalciferol 1000 intl units oral tablet) 1 Tab = 25 mcg Oral DAILY Tablet MEDICATION(S) YOU TOOK AT HOME PRIOR TO YOUR VISIT. PLEASE CHECK THE INSTRUCTIONS, THEY MAY HAVE CHANGED. docusate-senna (docusate-senna 50 mg-8.6 mg oral capsule) Immunizations:: Immunization/Vaccination Not Found Within Electronic Medical Record . Vital Signs (last charted) Pulse: 78 (04/11 08:38) Pulse Ox: 93 (04/11 08:17) BP: 127/66 (04/11 08:17) Ox Delivery: Room air Temperature: 97.9 F (36.6 C) (04/11 08:17) Ox %/FiO2: 21 (04/11 07:33) Respiration: 18 (04/11 08:17) FiO2 set: Not Charted Pain Intensity Level: 6 (04/11 08:38) Measurements (last charted) Weight: 88.3 kg (04/11/22 06:40:00) Height: 180.34 cm (03/27/22 10:06:00) BMI: 26.54 kg/m2 (03/26/22 18:14:00) Physical Examination General: Alert and oriented, No acute distress. Eye: Extraocular movements are intact. HENT: Normocephalic. Neck: Supple. Respiratory: Rales and coarse BL, decrease BS bases . Cardiovascular: Normal rate, Regular rhythm, Diastolc Murmur. Gastrointestinal: Soft, Non-tender, Non-distended, Normal bowel sounds. Genitourinary: No costovertebral angle tenderness, Blankenship in place . Musculoskeletal Normal range of motion. Normal strength. No tenderness. No swelling. Midline R upper arm. Integumentary: Warm. Neurologic: Alert, Oriented, Normal sensory, Normal motor function, No focal deficits, Cranial Nerves II-XII are grossly intact, Gag reflex normal. Psychiatric: Cooperative, Normal judgment, Non-suicidal. Discharge Plan Discharge Summary Plan Discharge Status: improved. Condition at Discharge: Cognitive status intact, Resuscitation status full code, Rehab potential good. Discharged/Transferred to: home with Home Health Care. Follow Up: PMD in 1 week , Neurology as scheduled, Urology in 1 week . Professional Services Total Discharge Time Discharge Time: > 30 Minutes. [id number] Male 04/11/2022 [facility] Discharge Summary Patient: MAYRA SURESH Age: 76 years Legal Sex: MALE : 1945 Admission Information Admit Date: 03/04/22 18:46 Reason for Admission: ALTERED MENTAL STATUS ATRIAL FIBRILLATION WITH RAPID VENTRICULAR RESPONSE Physicians Involved With Care Admitting: DO Flowers Avinaj Attending: MD Lemus Ruohul Consulting: DO Flowers Avinaj Consulting: MD Tsering, Elmo Consulting: Beckie Bhardwaj Consulting: MD Gerardo, Srinivasa Chao Consulting: MD Gaspar Thong Huy Consulting: DO Fernandez Mina Residents: MD Guillermo, Chacorta Monsalve MD, Chelsie Watkins MD, Jose E Final Diagnosis _ 1. Altered mental status (Altered mental status, [id number]) 2. Atrial fibrillation with rapid ventricular response (Unspecified atrial fibrillation, I48.91) 3. Gram-negative bacteremia (Bacteremia, R78.81) 4. Urinary catheter present (Presence of urogenital implants, Z96.0) 5. Diabetes mellitus (Type 2 diabetes mellitus without complications, E11.9) 6. HLD (hyperlipidemia) (Hyperlipidemia, unspecified, E78.5) 7. HTN (hypertension) (Essential (primary) hypertension, I10) 8. Hx of transient ischemic attack (TIA) (Personal history of transient ischemic attack (TIA), and cerebral infarction without residual deficits, Z86.73) 9. Seizure (Unspecified convulsions, R56.9) 10. MSSA bacteremia (Bacteremia, R78.81) Hospital Course 76-year-old male with history of HTN, HLD, chronic ex-smoker, COPD, new T2DM, s/p carotid endarterectomy on 02/21/22 who was admitted due to AMS to r/o stroke on 03/04. Patient was directly admitted to ICU for tPA. Later, MRI had no findings of stroke, unremarkable CT angio of the neck and unremarkable During hospitalization, patient developed Afib with RVR and was managed with amiodarone drip. Patient also developed urinary retention and hematuria and was placed on Blankenship. Blood cultures during his hospital stayed showed polymicrobial infection with MSSA, Enterococcus and Citrobacter bacteremia. ID was consulted and he was placed on Unasyn and then switched to Ancef. PER ID 'This is a difficult case to sort out; however, based on the clinical review of this case, I suspect that the MSSA was likely present on admission, which led to the patient's altered sensorium and atrial fibrillation. This is probably masked by the patient's corticosteroids. The E. faecalis and Citrobacter likely a complication of a catheter-associated urinary tract infection. The patient has had hematuria; that has now since resolved, but that would be my suspicion for the introduction of the source, especially in light of the fact that there is only gram-negative vanesa identified from the urine at this point'. Of note, patient had received steroids due to COPD, earlier in the admission. On 03/20, patient was transferred to ICU after a seizure-like activity/rapid response episode. Next day, he was downgraded. Tele neuro was consulted and recommended Keppra, apixaban, atorvastatin. Patient has remained since then stable, neurologically intact. No more seizure-like activity. EEG had been ordered per Tele Neuro, but it was discontinued after consulting our neurologist who recommended to cancel it, as it is not going to give us any further information. Dr. Cagle recommended to continue Keppra and f/u as outpatient. The day of the discharge; patient has been asymptomatic. He remains with Blankenship cath in place. He has been neurologically intact. No more seizure activity. Cleared per neurology standpoint. Patient continues on antibiotic due to bacteremia. Per ID, he needs to complete IV tx with Ancef until 04/10/22, otherwise, cleared per ID for acute rehab placement. Patient has remained with normal vital signs. Plan: transferred to swing bed to [place] to continue IV antibiotics. He will also continue receiving PT. Significant Findings -Bacteremia, polymicrobial -Unremarkable MRI of the brain, CT angio and ECHO Lab Results Labs All 72H A/G Ratio L 0.7 (03/26/22) L 0.7 (03/25/22) Albumin Level L 2.7 (03/26/22) L 2.8 (03/25/22) ALP 75 (03/26/22) 81 (03/25/22) ALT L 5 (03/26/22) L 7 (03/25/22) Anion Gap 9 (03/26/22) 10 (03/25/22) AST 15 (03/26/22) L 13 (03/25/22) Auto Basophil Absolute 0.1 (03/26/22) 0.0 (03/25/22) Auto Basophil Percent 0.8 (03/26/22) 0.4 (03/25/22) Auto Eosinophil Absolute 0.1 (03/26/22) 0.1 (03/25/22) Auto Eosinophil Percent 0.8 (03/26/22) 0.7 (03/25/22) Auto Lymphocyte Absolute 1.4 (03/26/22) 1.1 (03/25/22) Auto Lymphocyte Percent 15.7 (03/26/22) 12.5 (03/25/22) Auto Monocyte Absolute 1.2 (03/26/22) 1.0 (03/25/22) Auto Monocyte Percent H 12.9 (03/26/22) H 11.8 (03/25/22) Auto Neutrophil Absolute 6.3 (03/26/22) 6.5 (03/25/22) Auto Neutrophil Percent 69.8 (03/26/22) 74.6 (03/25/22) Bilirubin, Direct 0.2 (03/26/22) 0.1 (03/25/22) Bilirubin, Indirect (Calc) 0.4 (03/26/22) 0.5 (03/25/22) Bilirubin, Total 0.6 (03/26/22) 0.6 (03/25/22) BUN 15 (03/26/22) 16 (03/25/22) BUN/Creat Ratio 17 (03/26/22) 18 (03/25/22) Calcium Level L 8.5 (03/26/22) L 8.4 (03/25/22) Chloride Level L 99 (03/26/22) L 95 (03/25/22) CO2/Carbon Dioxide 30 (03/26/22) 29 (03/25/22) Creatinine 0.9 (03/26/22) 0.9 (03/25/22) eGFR 87 (03/26/22) 89 (03/25/22) Globulin Level 3.8 (03/26/22) 4.0 (03/25/22) Glucose, Random H 155 (03/26/22) H 145 (03/25/22) HCT L 30.3 (03/26/22) L 30.1 (03/25/22) HGB L 9.9 (03/26/22) L 9.8 (03/25/22) Magnesium Level L 1.7 (03/26/22) 2.1 (03/25/22) MCH 29.6 (03/26/22) 29.7 (03/25/22) MCHC 32.7 (03/26/22) 32.7 (03/25/22) MCV 90.3 (03/26/22) 90.9 (03/25/22) MPV 8.7 (03/26/22) 8.6 (03/25/22) Osmolality, Calculated 280 (03/26/22) L 272 (03/25/22) Phosphorus Level 2.6 (03/26/22) 3.0 (03/25/22) PLT H 423 (03/26/22) H 439 (03/25/22) POCT - Glucose (Capillary) H 257 (03/26/22) H 128 (03/26/22) Potassium Level 4.4 (03/26/22) 4.4 (03/25/22) RBC L 3.35 (03/26/22) L 3.31 (03/25/22) RDW H 14.6 (03/26/22) H 14.8 (03/25/22) Sodium Level 138 (03/26/22) L 134 (03/25/22) Total Protein 6.5 (03/26/22) 6.8 (03/25/22) WBC 9.10 (03/26/22) 8.70 (03/25/22) Images MRI Brain W/WO contrast The ventricles and sulci are normal in size and configuration. There is no acute infarct or intracerebral hemorrhage. No extra-axial blood or fluid collection is present. 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 Increased T2/FLAIR periventricular signal compatible chronic small vessel ischemia. The brainstem, posterior fossa and cervicomedullary junction are preserved. The orbits, periorbital and pericavernous spaces are normal. The pituitary is unremarkable. No abnormality of the skull base or calvarium is identified. Impression: No intracranial mass is identified. 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 Chronic small vessel ischemia. Renal US 03/21 The right kidney measures 11.2 cm. The left kidney measures 9.7 cm. Both kidneys demonstrate normal echogenicity and contour without hydronephrosis. There are punctate echogenic reflector scattered throughout both kidneys not felt to represent true calculi. Urinary bladder was not imaged. IMPRESSION: No hydronephrosis. Punctate echogenic reflectors throughout both kidneys are not felt to represent true calculi. Correlation with clinical findings and urinalysis is recommended. CXR 03/22 The cardiomediastinal silhouette is mildly enlarged. There is mild pulmonary vascular congestion and perihilar interstitial and airspace opacity. Small bilateral effusions are present. No pneumothorax is seen. The osseous structures are grossly intact. IMPRESSION: Mild CHF. ECHO 03/05 Technically limited study, poor acoustic windows. Due to the quality of the echocardiogram bubble study not completed. Ejection fraction is visually estimated at 55-60%. No obvious evidence of cardiac source thrombus. Mild left atrial enlargement. Right ventricle is not well visualized. Right atrium is not well visualized. Moderate to severe aortic insufficiency. Thickened mitral valve leaflets with reduced excursion. Tricuspid valve was not well visualized. Insufficient tricuspid regurgitation jet to calculate RVSP. Mild pulmonic regurgitation. Normal size aortic root. Normal size of IVC with normal inspiratory collapse.There is no evidence of pericardial effusion. CT angio Neck and Head 03/04/22 CTA neck: Aortic arch is normal in caliber without significant atherosclerotic changes. The right brachiocephalic, common carotid arteries, carotid bulb as well as the internal carotid artery are patent. mild plaque in the carotid bulb and distal common carotid. The left common carotid artery, carotid bulb and internal carotid artery are patent. mild inflammatory changes along the distal carotid and carotid bulb. The vertebral arteries are patent. CTA head: Cavernous internal carotid arteries are patent. The A1, and A2 segments of the anterior cerebral artery are patent. There is a patent anterior communicating artery. The M1, and M2 segments of the middle cerebral artery are patent. There is a symmetric distal branch pattern. The posterior inferior cerebellar arteries are patent. Basilar artery is unremarkable. Posterior superior cerebral arteries are unremarkable. The P1, and P2 segments of the posterior cerebral artery are patent. Posterior communicating arteries are present. Bony structures are intact. No evidence of an acute fracture. The airway is midline. Thyroid gland is unremarkable. Lung apices demonstrate subtle emphysematous changes with dependent basilar lung disease. There is no enlarged cervical lymphadenopathy. Impression: No evidence of hemodynamically significant stenosis in the neck. No dissection or occlusion Inflammatory changes surrounding the distal left common carotid and carotid bulb suggest prior endarterectomy. No evidence of hemodynamically significant stenosis in the head. No aneurysm or occlusion. No evidence of vascular mass. Physical Exam Vitals and Measurements T: 97.7 F HR: 93(Apical) HR: 76 RR: 18 BP: 129/63 SpO2: 100% O2 Delivery: Nasal cannula O2 Flow: 2L/min HT: 180.34 cm WT: 85.8 kg BMI: 26.2 kg/m2 General Appearance: No acute distress. Patient is alert and oriented. HEENT: NCAT. Cardiac: Normal sinus rhythm. No murmurs. Lungs: Clear to auscultation. Abdomen: Soft, non-distended, non-tender. Neurological: Grossly intact motor and sensory examination. Skin: No rash present. Psychiatric: Alert and interactive with normal affect. Discharge Plan Plan: transferred to swing bed to [place] to continue IV antibiotics. He will also continue receiving PT. Patient Discharge Condition The day of the discharge; patient has been asymptomatic. He remains with Blankenship cath in place. He has been neurologically intact. No more seizure activity. Cleared per neurology standpoint. Patient continues on antibiotic due to bacteremia. Per ID, he needs to complete IV tx with Ancef until 04/10/22, otherwise, cleared per ID for acute rehab placement. Patient has remained with normal vital signs. Discharge Disposition/Location Discharge Date: Discharge Location: Inpatient Rehab Facility Discharge Details Follow-Up Plans: Patient will be transferred to [place] to continue antibiotics. Once outpatient, he needs to follow up with PCP and neurologist. Discharge Activity: Activity As Tolerated Discharge Diet: Cardiac Diet Discharge Medications (11) atorvastatin 80 mg oral tablet 80 mg = 1 Tab, ORAL, DAILY (Ordered 03/07/22) cholecalciferol 1000 intl units oral tablet 25 mcg = 1 Tab, ORAL, DAILY (Ordered 03/07/22) digoxin 125 mcg (0.125 mg) oral tablet 0.125 mg = 1 Tab, ORAL, DAILY (Ordered 03/20/22) docusate-senna 50 mg-8.6 mg oral capsule (Ordered 03/07/22) Eliquis 5 mg oral tablet 5 mg = 1 Tab, ORAL, BID (Ordered 03/20/22) Fish Oil 1000 mg oral capsule 1 Cap, ORAL, DAILY (Ordered 12/10/13) furosemide 20 mg oral tablet 20 mg = 1 Tab, ORAL, DAILY (Ordered 03/07/22) insulin lispro 100 units/mL injectable solution correction scale, SUBQ, AC&Bed (Ordered 03/26/22) lisinopril 10 mg oral tablet 10 mg = 1 Tab, ORAL, DAILY (Ordered 03/20/22) metoprolol tartrate 25 mg oral tablet 25 mg = 1 Tab, ORAL, BID (Ordered 03/20/22) tamsulosin 0.4 mg oral capsule 0.4 mg = 1 Cap, ORAL, QBedtime (Ordered 03/07/22) Patient Education Hospital Discharge After a Stroke Mediterranean Diet Follow-Up Provider: PT GOES TO THE [facility] IN [place] FOR HIS APPOINTMENTS TAKE DISCHARGE FOLDER AND ALL MEDICATION TO SEE YOUR PROVIDER FOR FOLLOW Date: Within 1 to 2 weeks Time Spent Coordinating Discharge >60 min Patient was seen and evaluated along with (PGY1) under the direct supervision of Dr. Lemus who agrees with the above plan. - Dr.Ruth Monsalve (PGY3). [id number] Male 03/26/2022 [facility] History and Physicals Results Value Date Source Hospitalist Admission H&P 03/27/2022 [facility] History and Physical Patient: Riana SURESH Age: 76 years Legal Sex: MALE : 1945 Date of Service 03/27/2022 11:59 PST Chief Complaint SWING BED History of Present Illness 76 yo male with hx of HTN, HLD, tob abuse, COPD, pre-diabetes, s/p carotid endarterectomy 02/21/22 who is admitted to [facility] Swing bed for cont IV Abx therapy for MSSA Bacteremia with IV Ancef thru 04/10/22 and rehab for weakness after an acute hospitalization where he was treated for an acute CVA with tPA and he suffered a seizure and developed atrial fibrillation. Has a blankenship catheter for urine retention - has not had any problems with urination previously and no dx of prostate problems. 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 [facility]. Had his carotid stent placed there 02/21/22. His and stepson are at the bedside helping with history ( is 86 and stepson is 70); , Julián Vasquez, is surrogate decision maker. I reviewed notes, studies, and imaging reports from the outside facility Acute hospitalization Recap: 76-year-old male with history of HTN, HLD, chronic ex-smoker, COPD, new T2DM, s/p carotid endarterectomy on 02/21/22 who was admitted due to AMS to r/o stroke on 03/04. Patient was directly admitted to ICU for tPA. Later, MRI had no findings of stroke, unremarkable CT angio of the neck and unremarkable During hospitalization, patient developed Afib with RVR and was managed with amiodarone drip. Patient also developed urinary retention and hematuria and was placed on Blankenship. Blood cultures during his hospital stayed showed polymicrobial infection with MSSA, Enterococcus and Citrobacter bacteremia. ID was consulted and he was placed on Unasyn and then switched to Ancef. PER ID 'This is a difficult case to sort out; however, based on the clinical review of this case, I suspect that the MSSA was likely present on admission, which led to the patient's altered sensorium and atrial fibrillation. This is probably masked by the patient's corticosteroids. The E. faecalis and Citrobacter likely a complication of a catheter-associated urinary tract infection. The patient has had hematuria; that has now since resolved, but that would be my suspicion for the introduction of the source, especially in light of the fact that there is only gram-negative vanesa identified from the urine at this point'. Of note, patient had received steroids due to COPD, earlier in the admission. On 03/20, patient was transferred to ICU after a seizure-like activity/rapid response episode. Next day, he was downgraded. Tele neuro was consulted and recommended Keppra, apixaban, atorvastatin. Patient has remained stable, neurologically intact. No more seizure-like activity. EEG had been ordered per Tele Neuro, but it was discontinued after consulting our neurologist who recommended to cancel it, as it is not going to give us any further information. Dr. Cagle recommended to continue Keppra and f/u as outpatient. Review of Systems Constitutional: Negative. EENT: Negative. Respiratory: Chronic Cough, occ RIVERA Cardiovascular: Negative. Gastrointestinal: Negative. Genitourinary: Negative. Hematology/Lymphatics: Negative. Endocrine: Negative. Immunologic: Negative. Musculoskeletal: R leg pain edema - 'from great toe to the back of the knee' Skin: Negative. Neurologic: Negative. Psychiatric: Negative. Review of Systems was completed. Physical Exam Vitals and Measurements T: 98.0 F HR: 69(Apical) HR: 82 RR: 18 BP: 126/74 SpO2: 97% O2 Delivery: Nasal cannula O2 Flow: 1L/min HT: 180.34 cm WT: 86.3 kg(Dose Calc Wt.) WT: 86.3 kg BMI: 26.54 kg/m2 Shock Index: 0.558 03/27/22 07:29 General Appearance: No acute distress. HEENT: PERRL,EOMI B, neck supple Cardiac: Normal rate and rhythm, pulses 2+ B DP Lungs: Insp/Exp wheezing Abdomen: Positive bowel sounds. Soft, non-distended, non-tender to palp Musculoskeletal: Rt knee - edema, no erythema, pain with ROM, ttp ant and post aspect. Rt Foot - min edema at dorsum, no erythema, great toe min ttp Neurological: No focal deficits Skin: Skin norm Genitalia: Deferred. Psychiatric: Demonstrated good judgment and reason Assessment/Plan _ Acute respiratory failure with hypoxia (Acute respiratory failure with hypoxia, J96.01) - will cont oxygen support and wean as tolerated - pt not on home oxygen prior to acute events - disc with pt and family - given baseline chronic lung disease and prolonged smoking hx may req usp oxygen therapy ( has oxygen for nite time use at home, says that was using at home when he had episodes of severe SOB) Atrial fibrillation with RVR (Unspecified atrial fibrillation, I48.91) - currently NSR - will cont the aniticoag, B avis, Echo (03/05/22) - showed EF 55-60% COPD without exacerbation (Chronic obstructive pulmonary disease, unspecified, J44.9) - will cont on inhaled steroids and breathing tx - will get resp therapy consult, give pt IS Generalized weakness (Weakness, R53.1) - will admit to rehab - get PT/OT/ST eval and tx - pt has supportive family, will return home with them, is motivated to return to [facility] Ordered: Admission Status History of TIA (transient ischemic attack) (Personal history of transient ischemic attack (TIA), and cerebral infarction without residual deficits, Z86.73) - reviewed records from outside facility - pt received tx with tPA on 03/04/22 for likely stroke, had consult with Dr Cagle, neurologoy - cont chol, bp control, anticoagulation - disc high risk of re-stroke with multiple RF and cont tob abuse Hyperglycemia (Hyperglycemia, unspecified, R73.9) - will cont to monitor - likely sugar was elevated from steroids received and acute stress - per pt and family has no dx of DM MSSA bacteremia (Bacteremia, R78.81) - admit for continued IV Abx therapy for MSSA bacteremia (polymicrobial infection per ID, Dr Fernandez notes) - will cont IV abx therapy with 2 gn Ancef Q8 thru 04/10/22 (4 weeks 03/13/22 thru 04/10/22) - will monitor weekly labs - CBC/CMP/ESR/CRP-hs Prediabetes (Prediabetes, R73.03) - hgA1c 6.4 03/11/22 - will cont FSBS, SSI coverage, CCD diet, monitor closely and adj medication - likely higher sugars due to steroid therapy and acute stress Right knee pain (Pain in right knee, M25.561) - pain and swelling started in last 24 hours, - will r/o acute gout attack, will check xray and u/s to r/o DVT - ok for elevation and cold compress, take meds as needed for pain Seizure (Unspecified convulsions, R56.9) - one episode, had the tele-neuro consult that rec santosh - will give lorazepam IV for acute sustained seizure - will cont seizure precaution - needs f/u with Dr Cagle Tobacco abuse (Tobacco use, Z72.0) - disc need for cessation - disc high risk for re-stroke - cont nicotine patch Urinary catheter present (Presence of urogenital implants, Z96.0) - cont blankenship care per protocol Urine retention (Retention of urine, unspecified, R33.9) - cont meds and will cont with bladder training - disc that poss had some underlying prostate enlargement that was unknown - disc that as gets more moble and stable from his acute illness normal bladder functions more likely to return Orders: acetaminophen (acetaminophen), 500 mg, ORAL, Q6H, PRN, Pain-Mild (Scale 1-3), TAB, 03/26/22 20:32:00 PST albuterol-ipratropium (DuoNeb), = 3 mL, INH, Q6H7, NEB AMP, 03/27/22 13:00:00 PST albuterol-ipratropium (DuoNeb), = 3 mL, INH, Q4H7, PRN, Shortness of breath, NEB AMP, 03/27/22 12:55:00 PST apixaban (Eliquis), 5 mg, ORAL, BID, Indication = Atrial Fibrillation, TAB, 03/26/22 21:00:00 PST atorvastatin (atorvastatin), 80 mg, ORAL, DAILY, TAB, 03/26/22 19:46:00 PST budesonide (budesonide 0.25 mg/2 mL Inhal Susp), 0.5 mg, INH, Q12H, NEB AMP, 03/27/22 13:00:00 PST ceFAZolin (Ancef), 2 gm, IVPB, [id number], Indication= Bacteremia / Fungemia, INJ, 03/26/22 20:00:00 PST, Stop date 04/10/22 3:59:00 PST cholecalciferol (cholecalciferol), 25 mcg, ORAL, DAILY, TAB, 03/27/22 9:00:00 PST digoxin (digoxin), 0.125 mg, ORAL, DAILY, TAB, 03/27/22 9:00:00 PST docusate (docusate), 100 mg, ORAL, BID, CAP, 03/26/22 21:00:00 PST furosemide (furosemide), 20 mg, ORAL, DAILY, TAB, 03/27/22 9:00:00 PST glucagon (glucagon), 1 mg, SUBQ, As directed, PRN, Blood Glucose, INJ, 03/27/22 8:30:00 PST glucose (glucose 40% oral gel), 15 gm = 37.5 mL, ORAL, As directed, PRN, Blood Glucose, GEL, 03/27/22 8:30:00 PST glucose (Dextrose 50% Inj 50 mL), = 50 mL, IV, As directed, PRN, Blood Glucose, INJ, 03/27/22 8:30:00 PST glucose (Dextrose 50% Inj 50 mL), = 25 mL, IV, As directed, PRN, Blood Glucose, INJ, 03/27/22 8:30:00 PST insulin regular (insulin regular Sliding Scale Med (Body wt 70-100kg)), sliding scale, SUBQ, AC&Bed, INJ, 03/26/22 21:00:00 PST levETIRAcetam (Keppra), 500 mg, ORAL, BID, TAB, 03/26/22 21:00:00 PST lisinopril (lisinopril), 10 mg, ORAL, DAILY, TAB, 03/27/22 9:00:00 PST magnesium hydroxide (magnesium hydroxide), = 30 mL, ORAL, DAILY, PRN, Constipation, ORAL SUSP, 03/26/22 20:32:00 PST metoprolol (Metoprolol Tartrate), 25 mg, ORAL, BID, TAB, 03/26/22 21:00:00 PST nicotine (nicotine 14 mg/day Patch), 14 mg, TOP, DAILY, PATCH, 03/27/22 12:54:00 PST tamsulosin (tamsulosin), 0.4 mg, ORAL, QBedtime, CAP, 03/26/22 21:00:00 PST traMADol (traMADol), 50 mg, ORAL, Q6H, PRN, Pain-Moderate (Scale 4-6), TAB, 03/27/22 12:54:00 PST traMADol (traMADol), 100 mg, ORAL, Q6H, PRN, Pain-Severe (Scale 7-10), TAB, 03/27/22 12:54:00 PST Ambulate CBC w Differential Chair Chair Communication Communication Communication Communication Comprehensive Metabolic Panel CMP Continue Blankenship CRPhs CReactive Protein HighSensitivity Differential Automated* Fingerstick/Capillary Blood Sugar Fingerstick/Capillary Blood Sugar Full Code Hypoglycemia Protocol Hypoglycemia Protocol Incentive Spirometry Education Intake and Output Knee Rt 2 Vw Magnesium Level Notify Physician Nutritional Services Consult Occupational Therapy Eval and Treat per protocol Oxygen Therapy Physical Therapy Eval and Treat per protocol POC Glucose Panel POC Glucose Panel POC Glucose Panel POC Glucose Panel POC Glucose Panel POC Glucose Panel Precautions Regular Diet Respiratory Assessment Sed Rate (ESR) AUTO Serum Indices Cook Dinner Consult Speech Therapy Eval and Treat per protocol Straight Cath Updraft Nebulizer Treatment Updraft Nebulizer Treatment Updraft Nebulizer Treatment Uric Acid Level US Lower Ext Vein Duplex Rt Vital Signs VTE Prophylaxis Guidelines Weigh Patient Disposition: Swing Bed Anticipated DC: once IV ABx and rehab complete Place of DC: home with family with HHN/PT/OT Allergies NKA Problem List Active Problems Body mass index 30+ - obesity Elevated serum cholesterol High blood pressure TIA (transient ischemic attack) Gout Pre-Diabetes Chronic Cough COPD (takes inhalers, no home oxygen) Atrial Fibrillation (dx in acute hospital) Procedure/Surgical History L carotid endarterectomy/stent 02/21/22 (at [facility]) Medications Inpatient acetaminophen, 500 mg, 1 ea, ORAL, Q6H, PRN Ancef, 2 gm, 1 Vial, IVPB, [id number] atorvastatin, 80 mg, 2 Tab, ORAL, DAILY budesonide 0.25 mg/2 mL Inhal Susp, 0.5 mg, 2 mL, INH, Q12H cholecalciferol, 25 mcg, 1 Tab, ORAL, DAILY Dextrose 50% Inj 50 mL, 25 mL, IV, As directed, PRN Dextrose 50% Inj 50 mL, 50 mL, IV, As directed, PRN digoxin, 0.125 mg, 1 Tab, ORAL, DAILY docusate, 100 mg, 1 Cap, ORAL, BID DuoNeb, 3 mL, INH, Q4H7, PRN DuoNeb, 3 mL, INH, Q6H7 Eliquis, 5 mg, 1 Tab, ORAL, BID furosemide, 20 mg, 1 Tab, ORAL, DAILY glucagon, 1 mg, SUBQ, As directed, PRN glucose 40% oral gel, 15 gm, 37.5 mL, ORAL, As directed, PRN insulin regular Sliding Scale Med (Body wt 70-100kg), sliding scale, SUBQ, AC&Bed Keppra, 500 mg, 1 Tab, ORAL, BID lisinopril, 10 mg, 1 Tab, ORAL, DAILY magnesium hydroxide, 30 mL, ORAL, DAILY, PRN Metoprolol Tartrate, 25 mg, 1 Tab, ORAL, BID nicotine 14 mg/day Patch, 14 mg, 1 Patch, TOP, DAILY tamsulosin, 0.4 mg, 1 Cap, ORAL, QBedtime traMADol, 50 mg, 1 Tab, ORAL, Q6H, PRN traMADol, 100 mg, 2 Tab, ORAL, Q6H, PRN Home atorvastatin 80 mg oral tablet, 80 mg, 1 Tab, ORAL, DAILY cholecalciferol 1000 intl units oral tablet, 25 mcg, 1 Tab, ORAL, DAILY digoxin 125 mcg (0.125 mg) oral tablet, 0.125 mg, 1 Tab, ORAL, DAILY docusate-senna 50 mg-8.6 mg oral capsule Eliquis 5 mg oral tablet, 5 mg, 1 Tab, ORAL, BID furosemide 20 mg oral tablet, 20 mg, 1 Tab, ORAL, DAILY insulin lispro 100 units/mL injectable solution, correction scale, SUBQ, AC&Bed lisinopril 10 mg oral tablet, 10 mg, 1 Tab, ORAL, DAILY metoprolol tartrate 25 mg oral tablet, 25 mg, 1 Tab, ORAL, BID tamsulosin 0.4 mg oral capsule, 0.4 mg, 1 Cap, ORAL, QBedtime Lab Results Immunology SARS-CoV-2 Source Nasopharyngeal 03/26/22 14:30 PST Patient From Congregate Area? No 03/26/22 14:30 PST Health Care Worker? No 03/26/22 14:30 PST SARS-CoV-2 Molecular Negative 03/26/22 14:30 PST Symptomatic per CDC? Yes 03/26/22 14:30 PST SARS-CoV-2 First test? Unknown 03/26/22 14:30 PST SARS-CoV-2 Is the Patient Hospitalized? Yes 03/26/22 14:30 PST SARS-CoV-2 Is the Patient in ICU? No 03/26/22 14:30 PST SARS-CoV-2 Is the Patient ? No 03/26/22 14:30 PST Social History Abuse/Intent to Harm CSSRS Risk Level: No risk (0-24) *Alcohol Screen How often do you have a drink containing alcohol? Never (0). How many standard drinks containing alcohol do you have on a typical day? Never (0). How often do you have six or more drinks on one occasion? Never (0). Ready to change: N/A. Previous treatment: None. *Home/Environment Screen Living Situation: Home/Independent. Lives with: Spouse. Has emotional support? Yes. *Nutrition Screen No (0) Decreased appetite:. If pt unsure/unable, answer next question (0), No (0), Nutritional Risks: No nutritional risk triggers identified. Type of diet: Regular diet. *Substance Abuse Screen Do you have concerns about substance abuse for yourself or in your household? No. Current or past use? Never. How often do you use substances or drugs in your life? Never used. *Tobacco Use Screen Is there a smoker in the household? No. Do you have concerns about tobacco use in household? No. Over the past 30 days, what and how much have you smoked? Former smoker, quit more than 30 days ago. Over the past 30 days, what has been your smokeless tobacco use? Never. Are you ready to quit? N/A. Started at age: 12 Years. Stopped at age: 75 Years. Number of years: 64. Receiving counseling during visit/stay: No. Family History Stroke in Brother [id number] Male 03/27/2022 [facility] Admission H&P 03/05/2022 [facility] History and Physical Patient: Riana SURESH Age: 76 years Legal Sex: MALE : 1945 Chief Complaint biba from home for altered mental status started about 1.5 hours prior to arrival. History of Present Illness Patient is a 76-year-old male with a past medical history of hypertension, hyperlipidemia and prior stroke who presented with dysarthria. Most of the HPI obtained from chart review due to patient clinical condition. Last known well was 80 minutes prior to arrival. Per EMS report, patient was working in the yard and when his checked on him he was confused unable to answer questions. On arrival to the ED, patient was nonfocal on physical exam and moves all extremities equally. He was administered tenecteplase at approximately 2058. Initial noncontrast CT head was negative for acute stroke. Review of Systems Unable to obtain due to patient's clinical condition Physical Exam Vitals and Measurements T: 98.0 F HR: 103(Monitored) HR: 144 RR: 25 BP: 116/67 SpO2: 100% O2 Delivery: Nasal cannula O2 Flow: 6L/min HT: 180.34 cm WT: 94.4 kg(Dose Calc Wt.) WT: 94.4 kg BMI: 30.54 - Shock Index: 1.241 03/04/22 22:15 General Appearance: No acute distress. HEENT: NCAT. Normal oropharynx. Neck supple without lymphadenopathy. Cardiac: Normal sinus rhythm. No murmurs. Lungs: Clear to auscultation. Abdomen: Soft, non-distended, non-tender. Neurological: Grossly intact motor and sensory examination. Dysarthric, unable to answer questions. Skin: No rash present. Psychiatric: Alert and interactive with normal affect. Extremities: No edema. Assessment/Plan _ Altered mental status (Altered mental status, [id number]) Altered mental status (Altered mental status, unspecified, R41.82) Atrial fibrillation with rapid ventricular response (Unspecified atrial fibrillation, I48.91) Orders: acetaminophen (acetaminophen), 650 mg, ORAL, Q6H, PRN, Fever, TAB, 03/04/22 21:48:00 PST aspirin (aspirin), 81 mg, ORAL, DAILY, TAB, 03/05/22 21:48:00 PST atorvastatin (atorvastatin), 80 mg, ORAL, DAILY, TAB, 03/04/22 21:48:00 PST glucagon (glucagon), 1 mg, SUBQ, As directed, PRN, Blood Glucose, INJ, 03/04/22 21:48:00 PST glucose (Dextrose 50% Inj 50 mL), = 25 mL, IV, As directed, PRN, Blood Glucose, INJ, 03/04/22 21:48:00 PST glucose (Dextrose 50% Inj 50 mL), = 50 mL, IV, As directed, PRN, Blood Glucose, INJ, 03/04/22 21:48:00 PST glucose (glucose 40% oral gel), 15 gm = 37.5 mL, ORAL, As directed, PRN, Blood Glucose, GEL, 03/04/22 21:48:00 PST labetalol (labetalol), 10 mg, IV PUSH, [id number], PRN, Blood Pressure, INJ, 03/04/22 21:48:00 PST, 2 Time(s)/Dose(s), Stop date Limited # of times niCARdipine 20 mg [5 mg/hr] + field service poultry technician premix 200 mL (niCARdipine drip 20 mg [5 mg/hr] + Sodium Chloride 0.9% premix diluent titrate (anti-hypertensive)), 200 mL, IV, 03/04/22 21:48:00 PST, Goal Parameters = Other - Specify Other Goal Parameters, Other Goal Parameters: Blood Pressure, 50 mL/hr, 4 hr, Order Weight 94.4, kg, 2.17, m2 Pharmacy Communication (Pharmacy Communication), As Directed, 03/04/22 21:48:00 PST, N/A, 03/04/22 21:48:00 PST ABO/Rh Type Activity as Tolerated Antibody Screen 3 Cell Basic Metabolic Panel BMP Bedrest CBC w Differential Communication Communication Communication Communication Communication Communication Communication Communication Communication Communication Communication CT Brain WO Contrast CV Echo ALEIDA Fingerstick/Capillary Blood Sugar Fingerstick/Capillary Blood Sugar Full Code Hepatic Function Panel Hypoglycemia Protocol Hypoglycemia Protocol Intermittent Pneumatic Compression Device Lipid Panel Magnesium Level MRI Brain WO Contrast Neuro Assessment Neuro Checks NIH Scale NIH Scale NIH Scale NIH Scale Notify Physician NPO Oxygen Therapy Phosphorus Level Physician Consult Speech Therapy Eval and Treat Speech Therapy Eval and Treat per protocol Stroke Nurse Consult Stroke Quality Measures Stroke Quality Measures Swallow Screen Vital Signs VTE Prophylaxis Guidelines Weigh Patient Assessment: Patient is a 76-year-old male with a past medical history of hypertension, hyperlipidemia and prior stroke who presented with dysarthria s/p tenecteplase at approximately 2058 Impression Dysarthria Acute CVA New onset atrial fibrillation Hypertension Hyperlipidemia Leukocytosis Hyperglycemia Plan NCCTH negative for any acute intracranial events CT angiogram head and neck negative for any large vessel occlusions Q1h neurochecks. Goal blood pressure less than 180/105 Completed stroke work-up with MRI and echocardiogram with bubble study Aspirin in 24 hours after follow-up CT scan if no hemorrhagic transformation EKG shows atrial fibrillation, QTC WNL. Check TSH Initiate statin therapy, lipid panel pending Hemodynamically stable, no acute issues CXR shows bilateral pulmonary congestion SPO2>90% on room air, no acute issues Diet after dysphagia screen LFTs within normal limits Bun/Creat within normal limits Strict I/O's with goal UOP 0.5cc/kg/h Afebrile, mild leukocytosis, likely reactive No indication for antibiotics at this time Hyperglycemic on admission, Accuchecks q6H. Check hemoglobin A1c Maintain blood glucose 140-180 H/H within normal limits Platelets within normal limits Coags within normal limits DVT PPX: SCDs GI PPX: Not indicated Lines/Tubes: PIVs Code status: Full code Disp: ICU Upon my evaluation, this patient had a high probability of imminent or life-threatening deterioration due to acute CVA which required my direct attention, intervention and personal management. I personally provided 35 minutes of critical care time exclusive of time spent on separately billable procedures. Time includes review of laboratory data, radiology results, discussion with consultants and monitoring for potential decompensation. Interventions were performed as documented above. Allergies NKA Problem List Active Problems Body mass index 30+ - obesity Elevated serum cholesterol High blood pressure TIA (transient ischemic attack) Inactive Problems No qualifying data Procedure/Surgical History CEA, left Medications Inpatient acetaminophen, 650 mg, 2 ea, ORAL, Q6H, PRN aspirin, 81 mg, 1 EC_Tab, ORAL, DAILY Ativan, 1.5 mg, 0.75 mL, IV, ONCE atorvastatin, 80 mg, 2 Tab, ORAL, QBedtime Dextrose 50% Inj 50 mL, 25 mL, IV, As directed, PRN Dextrose 50% Inj 50 mL, 50 mL, IV, As directed, PRN glucagon, 1 mg, SUBQ, As directed, PRN glucose 40% oral gel, 15 gm, 37.5 mL, ORAL, As directed, PRN labetalol, 10 mg, 2 mL, IV PUSH, [id number], PRN niCARdipine drip 20 mg [5 mg/hr] + Sodium Chloride 0.9% premix diluent titrate (anti-hypertensive) Pharmacy Communication, No Anticoag/antithrombotic/anti platelet for 24hrs, N/A, As directed Pharmacy Communication, As Directed, N/A, As directed Home aspirin 325 mg oral enteric coated tablet, 1 Tab, ORAL, DAILY atenolol 50 mg oral tablet, 1 Tab, ORAL, DAILY atenolol 50 mg oral tablet, 50 mg, 1 Tab, ORAL, DAILY atorvastatin 40 mg oral tablet, 1 Tab, ORAL, QBedtime Fish Oil 1000 mg oral capsule, 1 Cap, ORAL, DAILY hydrochlorothiazide-lisinopr il 12.5 mg-10 mg oral tablet, 1 Tab, ORAL, DAILY traMADol 50 mg oral tablet, Q6H, PRN Lab Results Hematology - CBC WBC H 12.10 K/mm3 03/04/22 19:10 PST RBC L 4.27 M/mm3 03/04/22 19:10 PST HGB L 13.4 gm/dL 03/04/22 19:10 PST HCT 39.3 % 03/04/22 19:10 PST MCV 92.2 fL 03/04/22 19:10 PST MCH 31.3 pg 03/04/22 19:10 PST MCHC 34.0 gm/dL 03/04/22 19:10 PST RDW 14.3 % 03/04/22 19:10 PST PLT 264 K/mm3 03/04/22 19:10 PST MPV 10.0 fL 03/04/22 19:10 PST Chemistry Sodium Level L 135 mmol/L 03/04/22 19:10 PST Potassium Level 3.9 mmol/L 03/04/22 19:10 PST Chloride Level L 99 mmol/L 03/04/22 19:10 PST CO2/Carbon Dioxide L 21 mmol/L 03/04/22 19:10 PST Anion Gap 15 mmol/L 03/04/22 19:10 PST Glucose, Random H 229 mg/dL 03/04/22 19:10 PST BUN 13 mg/dL 03/04/22 19:10 PST Creatinine 1.3 mg/dL 03/04/22 19:10 PST BUN/Creat Ratio L 10 03/04/22 19:10 PST Osmolality, Calculated 277 mOsm/L 03/04/22 19:10 PST Calcium Level 9.0 mg/dL 03/04/22 19:10 PST Total Protein 7.3 gm/dL 03/04/22 19:10 PST Albumin Level 3.8 gm/dL 03/04/22 19:10 PST Globulin Level 3.5 gm/dL 03/04/22 19:10 PST A/G Ratio L 1.1 03/04/22 19:10 PST ALP 63 IntUnit/L 03/04/22 19:10 PST ALT 15 IntUnit/L 03/04/22 19:10 PST AST 25 IntUnit/L 03/04/22 19:10 PST Bilirubin, Total 0.4 mg/dL 03/04/22 19:10 PST eGFR 55 mL/min/1.73m2 03/04/22 19:10 PST Troponin I 0.02 ng/mL 03/04/22 19:10 PST Coagulation PTT - Patient 26.5 sec 03/04/22 19:10 PST PT - Patient 14.2 sec 03/04/22 19:10 PST PT - INR H 1.2 03/04/22 19:10 PST Immunology SARS-CoV-2 Source Nasopharyngeal 03/04/22 19:20 PST Influenza A Agn Molecular Negative 03/04/22 19:20 PST Influenza B Agn Molecular Negative 03/04/22 19:20 PST Respiratory Syncytial Virus Molecular Negative 03/04/22 19:20 PST SARS-CoV-2 Molecular Negative 03/04/22 19:20 PST SARS-CoV-2 First test? Unknown 03/04/22 19:20 PST Health Care Worker? Unknown 03/04/22 19:20 PST SARS-CoV-2 Is the Patient Hospitalized? Unknown 03/04/22 19:20 PST SARS-CoV-2 Is the Patient in ICU? Unknown 03/04/22 19:20 PST Patient From Congregate Area? Unknown 03/04/22 19:20 PST Symptomatic per CDC? Unknown 03/04/22 19:20 PST SARS-CoV-2 Is the Patient ? Unknown 03/04/22 19:20 PST Social History Abuse/Intent to Harm CSSRS Suicide screening ED: Screening not complete; Pt unable to answer or refused *Alcohol Screen Household alcohol concerns: No. Alcohol abuse in household: No. Use: Past. *Nutrition Screen Nutritional Risk: No nutritional risk triggers identified. *Substance Abuse Screen Substance abuse in household: No. Household substance abuse concerns: No. *Tobacco Use Screen Smoker in household: Yes. Household tobacco concerns: No. Tobacco Use: Former smoker. Tobacco Type: Cigarettes. Number of years used: 50. Started at age: 10 Years. Previous treatment: None. Received smoking cessation counseling during stay: Yes. Smokeless tobacco cessation advice given: Yes. Tobacco cessation advice/treatment type provided: Smoking cessation - direct discussion. Ready to change: Yes. Family History Family history is unknown Diagnostics Results CT Brain WO Contrast 03/04/22 18:57:37 Impression: Atrophy. No acute hemorrhage. No acute infarcts are seen. However, acute infarcts cannot be excluded. If clinically indicated, MRI is recommended for further evaluation. This report was electronically signed by Jan Baron MD on 03/04/2022 7:16:30 PM. The above findings were reported to Dr. Rodriguez . The call was initiated at 03/04/2022 7:18:22 PM. Chest 1 Vw Portable 03/04/22 21:14:09 IMPRESSION: Cardiomegaly with mild pulmonary vascular congestion. Calcified aorta. Spondylosis thoracic spine. Signed by: Jesus Garcia on 03/04/2022 9:[address] Angio Head/Neck W Contrast 03/04/22 20:52:10 Impression: No evidence of hemodynamically significant stenosis in the neck. No dissection or occlusion Inflammatory changes surrounding the distal left common carotid and carotid bulb suggest prior endarterectomy. No evidence of hemodynamically significant stenosis in the head. No aneurysm or occlusion. No evidence of vascular mass. This report was electronically signed by Fidencio Del Rio MD on 03/04/2022 9:40:39 PM. [id number] Male 03/05/2022 [facility] Vital Signs Vital Sign Value Date Comments Source Temperature (F) 97.6 [degF] 04/11/2022 [facility] Peripheral Pulse Rate 90 bpm 04/11/2022 58 [facility] Respiratory rate 18 br/min 04/11/2022 58 [facility] Systolic BP 130 mm[Hg] 04/11/2022 58 [facility] Diastolic BP 69 mm[Hg] 04/11/2022 58 [facility] Pulse Oximetry 97 % 04/11/[address] [facility] [place] [facility] Apical Heart Rate 78 bpm 04/11/2022 58 [facility] Temperature (F) 97.9 [degF] 04/11/2022 58 [facility] Peripheral Pulse Rate 78 bpm 04/11/2022 58 [facility] Respiratory rate 18 br/min 04/11/2022 58 [facility] Systolic BP 127 mm[Hg] 04/11/2022 58 [facility] Diastolic BP 66 mm[Hg] 04/11/2022 58 [email or web address] [place] Pulse Oximetry 93 % 04/11/2022 58 [facility] [place] Respiratory rate 18 br/min 04/11/2022 [facility] [place] Peripheral Pulse Rate 76 bpm 04/11/2022 58 [facility] Pulse Oximetry 94 % 04/11/2022 58 [facility] Oxygen FiO2 21 % 04/11/20[facility] 21 % 04/11/2022 58 [facility] Weight (kg) 88.3 kg 04/11/2022 58 [facility] Oxygen flow 1 L/min 04/11/2022 58 [facility] Oxygen flow 1 L/min 04/11/2022 58 [facility] Temperature (F) 97.4 [degF] 04/11/2022 [facility] [place] Systolic BP 147 mm[Hg] 04/11/2022 58 [facility] Diastolic BP 67 mm[Hg] 04/11/2022 58 [facility] Apical Heart Rate 99 bpm 04/10/2022 [facility] [place] Oxygen flow 1 L/min 04/10/2022 58 [facility] Apical Heart Rate 70 bpm 04/09/2022 [facility] [place] Weight (kg) 88.0 kg 04/08/2022 58 [facility] Weight (kg) 87.0 kg 04/07/2022 58 [facility] HeightLength (cm) 180.34 cm [facility]) [facility].34 [facility] Body [facility] Index 26.54 kg/m2 03/27/2022 [facility] Dose calculation weight (kg) 86.3 kg 03/27/2022 58 [facility] Encounters Location Location Details Encounter Type Encounter Number Reason For Visit Attending Provider ADM Date DC Date Status Source 50 50 [facility] Inpatient [id number] ALTERED MENTAL STATUS ATRIAL FIBRILLA TION WITH RAPID VENTRICU LAR RESPONSE Tian Elliottdy 03/05 Active [facility] [email or web address] [place] 58 58 [facility] Inpatient [id number] SWING BED Kymberly Brannon nson 03/27 [id number] Elmo Royter 04/10 Active [facility] [id number] Elmo Royter 06/26 Active [facility] [id number] Elmo Royter 10/23 Active [facility] Outpatient [id number] G93.41 Steven Mclaughlin 12/19 Active [id number] Plan of Care Plan of Care Date Source Extracted from:Title: [facility] Summary - Author: MD Morgan, Clayton Date: 04/11/22 Discharge Information Discharge Information: Admit Date: 03/26/22 17:18 Discharge Date: 04/11/22 Reason For Visit: SWING BED Discharge Location: [facility] Inv[facility] With Care ?? Admitting: ? MD Anne Tasha ?? Attending: ? MD Anne Tasha ?? Primary Care: ??? MD MARTHA . Conditions Present on Admission: DIagnosis/Condition: Active Diagnoses ?Anemia (Anemia, unspecified) ?Effusion of right knee joint (Effusion, right knee) ?Acute respiratory failure with hypoxia (Acute respiratory failure with hypoxia) ?Tobacco abuse (Tobacco use) ?COPD without exacerbation (Chronic obstructive pulmonary disease, unspecified) ?Right knee pain (Pain in right knee) ?Hyperglycemia (Hyperglycemia, unspecified) ?Prediabetes (Prediabetes) ?History of TIA (transient ischemic attack) (Personal history of transient ischemic attack (TIA), and cerebral infarction without residual deficits) ?Urinary catheter present (Presence of urogenital implants) ?Urine retention (Retention of urine, unspecified) ?Atrial fibrillation with RVR (Unspecified atrial fibrillation) ?Seizure (Unspecified convulsions) ?MSSA bacteremia (Bacteremia) ?Generalized weakness (Weakness) . Diagnoses: Active Diagnoses ?Anemia (Anemia, unspecified) ?Effusion of right knee joint (Effusion, right knee) ?Acute respiratory failure with hypoxia (Acute respiratory failure with hypoxia) ?Tobacco abuse (Tobacco use) ?COPD without exacerbation (Chronic obstructive pulmonary disease, unspecified) ?Right knee pain (Pain in right knee) ?Hyperglycemia (Hyperglycemia, unspecified) ?Prediabetes (Prediabetes) ?History of TIA (transient ischemic attack) (Personal history of transient ischemic attack (TIA), and cerebral infarction without residual deficits) ?Urinary catheter present (Presence of urogenital implants) ?Urine retention (Retention of urine, unspecified) ?Atrial fibrillation with RVR (Unspecified atrial fibrillation) ?Seizure (Unspecified convulsions) ?MSSA bacteremia (Bacteremia) ?Generalized weakness (Weakness) . Allergies: Allergic Reactions (Selected) NKA. 76 yo male with hx of HTN, HLD, tob abuse, COPD, pre-diabetes, s/p carotid endarterectomy 02/21/22 who is admitted to [facility] Swing bed for cont IV Abx therapy for MSSA Bacteremia with IV Ancef thru 04/10/22 and rehab for weakness after an acute hospitalization where he was treated for an acute CVA with tPA and he suffered a seizure and developed atrial fibrillation. Has a blankenship catheter for urine retention - has not had any problems with urination previously and no dx of prostate problems. Seen by Dr. Cagle neurology on 04/10/22 and recommended to continue Keppra and follow up as outpt, 1. Weakness: Swing bed, PT, OT, fall precautions. 2. TIA: On Eliquis, ASA, cont Lipitor, patient presented with signs/symptoms of CVA, CT head was negative for hemorrhagic stroke - Neurology recommended tPA. Subsequent MRI brain was negative for stroke, CT H&N angio was negative, Echo with bubble was negative. 3. New onset AFib: Currently in NSR, Cont Metoprolol and Digoxin and follow up as outpatient, cont Eliquis. 4. Urinary retention: On Blankenship, Cont Bladder training with new parameters. Nurse informed for bladder scanning. Cont Flomax. 5. Seizure like activity: CT and MRI brain were negative for acute process, Cont Santosh, scheduled for EEG on today at [facility] with Dr. Cagle, will follow up with Neurology. 6. MSSA and E faecalis bacteremia: Cont Ancef until 04/10/22. Missed the dose last night, will restart and last dose tomorrow am. 7. COPD: Chronic, not on exacerbation, need O2 at night, Cont Budesonide and Duoneb treatments, may need Home O2 nocturnal. 8. HTN: Cont Lisinopril and Metoprolol. 9. Pre-diabetes: Cont Insulin sliding scale. 10. HLD: Cont Lipitor 11. Smoking: Nicotine patch and counseling done. 12. 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 13. Anemia: Hgb stable and improving, no sign of bleed. Laboratory Results: Lab Results ST Selected Lab Results Lab ? Results ? Normalcy ? Date WBC ? 9.20 K/mm3 ? Normal ? 04/10/22 05:25 HGB ? 9.5 gm/dL ? Low ? 04/10/22 05:25 HCT ? 29.0 % ? Low ? 04/10/22 05:25 PLT ? 368 K/mm3 ? Normal ? 04/10/22 05:25 Sodium Level ? 138 mmol/L ? Normal ? 04/10/22 05:25 Chloride Level ? 101 mmol/L ? Normal ? 04/10/22 05:25 Potassium Level ? 3.9 mmol/L ? Normal ? 04/10/22 05:25 BUN ? 17 mg/dL ? Normal ? 04/10/22 05:25 Creatinine ? 1.0 mg/dL ? Normal ? 04/10/22 05:25 AST ? 13 IntUnit/L ? Low ? 04/10/22 05:25 ALT ? 6 IntUnit/L ? Low ? 04/10/22 05:25 Calcium Level ? 8.6 mg/dL ? Low ? 04/10/22 05:25 Magnesium Level ? 1.8 mg/dL ? Normal ? 03/01/23 05:25 Albumin Level ? 2.9 gm/dL ? Low ? 04/10/22 05:25 CO2/Carbon Dioxide ? 29 mmol/L ? Normal ? 04/10/22 05:25 Glucose, Random ? 104 mg/dL ? Normal ? 04/10/22 05:25 , Unresulted Labs/Orders ST Results Pending No Pending Orders Found Within Electronic Medical Record . MEDICATIONS NEW MEDICATIONS YOU WILL BE TAKING AT HOME WITH INSTRUCTIONS ON HOW AND WHEN TO TAKE FOR EACH MEDICATION. budesonide (budesonide 0.5 mg/2 mL inhalation suspension) ?2 mL = 0.5 mg Deep breath EVERY 12 HOURS NEBULIZER AMPULE Last Dose: ?04/11/2022 07:13 aspirin (Aspir 81 oral enteric coated tablet) ?1 Tab = 81 mg Oral DAILY Enteric coated tablet Last Dose: 04/11/2022 ?08:38 metoprolol (Metoprolol Tartrate 50 mg oral tablet) ?1 Tab = 50 mg Oral TWICE DAILY Tablet Last Dose: 04/11/2022 08:38 atorvastatin (atorvastatin 80 mg oral tablet) ?1 Tab = 80 mg Oral DAILY Tablet apixaban (Eliquis 5 mg oral tablet) ?1 Tab = 5 mg Oral TWICE DAILY Tablet furosemide (furosemide 20 mg oral tablet) ?1 Tab = 20 mg Oral DAILY Tablet pantoprazole (pantoprazole 40 mg oral enteric coated tablet) ?1 Tab = 40 mg Oral BEFORE BREAKFAST Enteric coated tablet Last Dose: ?04/11/2022 05:34 nicotine (nicotine 14 mg/24 hr transdermal film, extended release) ?1 Patch Top of the skin in one area DAILY Patch 7 Day(s) Last Dose: ?04/08/2022 09:27 levETIRAcetam (Keppra 500 mg oral tablet) ?1 Tab = 500 mg Oral TWICE DAILY Tablet Last Dose: 04/11/2022 08:38 tamsulosin (tamsulosin 0.4 mg oral capsule) ?1 Cap = 0.4 mg Oral AT BEDTIME Capsule lisinopril (lisinopril 10 mg oral tablet) ?1 Tab = 10 mg Oral DAILY Tablet digoxin (digoxin 125 mcg (0.125 mg) oral tablet) ?1 Tab = 0.125 mg Oral DAILY Tablet cholecalciferol (cholecalciferol 1000 intl units oral tablet) ?1 Tab = 25 mcg Oral DAILY Tablet MEDICATION(S) YOU TOOK AT HOME PRIOR TO YOUR VISIT. PLEASE CHECK THE INSTRUCTIONS, THEY MAY HAVE CHANGED. docusate-senna (docusate-senna 50 mg-8.6 mg oral capsule) Immunizations:: Immunization/Vaccination Not Found Within Electronic Medical Record . Vital Signs (last charted) Pulse:?78?(04/11 08:38)?Pulse Ox:?93?(04/11 08:17) BP:?127/66?? ?(04/11 08:17)?Ox Delivery:?? ?Room air Temperature:?? ?97.9 F (36.6 C) ?(04/11 08:17)?Ox %/FiO2:?21?(04/11 07:33) Respiration:?? ?18?(04/11 08:17)?FiO2 set:?Not Charted Pain Intensity Level:??6??(04/11 08:38) Measurements (last charted) ? Weight: ? 88.3 kg (04/11/22 06:40:00) ? Height: ? 180.34 cm (03/27/22 10:06:00) ? BMI: ? 26.54 kg/m2 (03/26/22 18:14:00) Discharge Plan Discharge Summary Plan Discharge Status: improved. Condition at Discharge: Cognitive status intact, Resuscitation status full code, Rehab potential good. Discharged/Transferred to: home with Home Health Care. Follow Up: PMD in 1 week , Neurology as scheduled, Urology in 1 week . Future Appointments Appointment Date: 06/26/2022 02:30:00 PM Scheduled Provider: MD Cagle Vladimir Location: [facility] Appointment Type: NR Office Visit 04/12/2022 58 [facility] Social History Social History Date Source Social History TypeResponse Smoking Status Never; Is there a smoker in the household? No; *Do you have concerns about tobacco use in household? No; Former smoker, quit more than 30 days ago; *Are you ready to quit? N/A; Receiving counseling during visit/stay: No; Started at age: 12; Stopped at age: 75; Number of years: 64; 1 entered on: 03/26/22 Sex Male Sammi klein had last cigarette on June 21- yrs of smoking 04/12/2022 [facility] Social History TypeResponse Smoking Status Never; Is there a smoker in the household? No; *Do you have concerns about tobacco use in household? No; Former smoker, quit more than 30 days ago; *Are you ready to quit? N/A; Receiving counseling during visit/stay: No; Started at age: 12; Stopped at age: 75; Number of years: 64; 1 entered on: 03/26/22 Sex Male Sammi klein had last cigarette on June 21- yrs of smoking 03/27/2022 58 [facility] Social History TypeResponse Smoking Status Never; Is there a smoker in the household? No; *Do you have concerns about tobacco use in household? No; Former smoker, quit more than 30 days ago; *Are you ready to quit? N/A; Receiving counseling during visit/stay: No; Started at age: 12; Stopped at age: 75; Number of years: 64; 1 entered on: 03/26/22 Sex Male Sammi klein had last cigarette on June 21- yrs of smoking 03/27/[address] [place] [address]
--- OUTSIDE RECORDS SUMMARY | 2024-02-18 04:10 | XMS_ITS | Clinical Summary ---
Author Organization [facility] Address [address] [place] [address] Phone Care Team Providers Care Spray Operator Name Role Phone Provider, Unknown Primary Care Provider Unavaila ble Allergies Active Allergy Reactions Criticality Noted Date Comments Gabapentin Rash 12/02/2023 Medications Vitamin D3 (cholecalcifer ol) 1000 UNIT TabletIndicati ons:Vitamin D Deficiency Take 25 mcg by mouth daily. Indications: Vitamin D Deficiency Active ferrous sulfate 325 (65 Fe) MG TabletIndicati ons:Iron Deficiency Take 325 mg by mouth three times a week. Indications: Iron Deficiency Active melatonin 3 MG TabletIndicati ons:Insomnia Take 5 mg by mouth nightly as needed for Other. Indications: Trouble Sleeping Active albuterol (PROVENTIL, VENTOLIN) (2.5 MG/3ML) 0.083% Nebulizer Soln 2.5 mg by Nebulization route every 6 hours as needed for Shortness of Breath. Active albuterol 108 (90 Base) MCG/ACT Aerosol Solution take 1 Puff by inhalation every 6 hours as needed for Wheezing. 09/09/19 24 Active apixaban (ELIQUIS) 5 MG Tablet Take 5 mg by mouth 2 times daily. 05/04/19 24 Active atorvastatin (LIPITOR) 80 MG Tablet Take 1 Tablet by mouth every evening. 02/12/19 24 Active finasteride (PROSCAR) 5 MG Tablet Take 5 mg by mouth daily. 05/29/19 24 Active fluticasone-sa lmeterol (ADVAIR) 250-50 MCG/ACT AEROSOL POWDER, BREATH ACTIVATED take 1 Puff by inhalation 2 times daily. 11/28/19 24 Active oxybutynin (DITROPAN-XL) 5 MG TABLET SR 24 HR Take 5 mg by mouth daily. 12/26/19 Active pantoprazole (PROTONIX) 40 MG Tablet Delayed Response Take 40 mg by mouth daily. 10/23/19 24 Active potassium chloride SA (KLORCON M) 20 MEQ Tablet Controlled Release Take 10 mEq by mouth daily. 04/01/19 24 Active senna-docusate (SENOKOT S) 8.6-50 MG Tablet Take 1 Tablet by mouth 2 times daily. 04/30/19 24 Active tiotropium-olo daterol (STIOLTO RESPIMAT) 2.5-2.5 MCG/ACT Aerosol Solution take 2 Puffs by inhalation daily. 09/09/19 24 Active traMADol (ULTRAM) 50 MG Tablet Take 50 mg by mouth 2 times daily as needed for Moderate or more severe pain. 10/23/19 Active aspirin 81 MG Chewable Tablet Take 1 Tablet by mouth daily. 02/10/20 Active levETIRAcetam (KEPPRA) 1000 MG Tablet Take 1 Tablet by mouth 2 times daily. 60 Tablet 02/09/20 24 Active lacosamide (VIMPAT) 100 MG TabletIndicati ons:Seizure (HCC) Take 1 Tablet by mouth 2 times daily. 60 Tablet 02/09/20 24 Active Lidocaine 4 % Patch 1 Patch by Transdermal route nightly. 30 Patch 02/09/20 24 Active nicotine (NICODERM CQ) 21 MG/24HR PATCH 24 HR 1 Patch by Transdermal route daily as needed (smoking cessation). 30 Patch 02/09/20 24 Active polyethylene glycol (GLYCOLAX, MIRALAX) 17 g PackIndication s:Constipation Take 1 Packet by mouth daily. Dissolve in 4-8 oz of liquid. Indications: Constipation 90 Packet 02/09/20 24 Active QUEtiapine (SEROquel) 50 MG Tablet Take 1 Tablet by mouth nightly. 180 Tablet 02/09/20 24 Active torsemide 40 MG Tablet Take 40 mg by mouth every morning. 90 Tablet 02/10/20 24 Active albuterol 108 (90 Base) MCG/ACT Aerosol Solution take 2 Puffs by inhalation every 4 hours as needed. 024 Discontinu ed(Med List Clean Up) budesonide-for moterol fumarate (SYMBICORT) 160-4.5 MCG/ACT Aerosol take 2 Puffs by inhalation 2 times daily. 01/06/20 024 Discontinu ed(Med List Clean Up) furosemide (LASIX) 40 MG Tablet Take 40 mg by mouth daily. 04/01/19 24 024 Discontinu ed(Alterna te therapy) levETIRAcetam (KEPPRA) 500 MG Tablet Take 500 mg by mouth 2 times daily. 07/22/19 24 024 Discontinu ed(Dose adjustment ) lisinopril (PRINIVIL, ZESTRIL) 10 MG Tablet Take 10 mg by mouth daily. 04/23/19 24 024 Discontinu ed(Allergi c response) predniSONE (DELTASONE) 10 MG Tablet Take 1 Tablet by mouth daily (with breakfast) for 3 days, THEN 0.5 Tablets daily (with breakfast) for 3 days. 5 Tablet 02/10/20 24 025 Active Problems Problem Noted Date Diagnosed Date Cardiopulmonary arrest with successful resuscita tion 01/25/2024 Seizures DC (myocardial infarction) CVA (cerebral vascular accident) Overview (01/26/2024): 05/2023 COPD (chronic obstructive pulmonary disease) BPH (benign prostatic hyperplasia) A-fib Aortic valve stenosis Mitral valve stenosis Chronic diastolic heart failure CAD (coronary artery disease) TIA (transient ischemic attack) HLD (hyperlipidemia) Pulmonary HTN DM type 2 (diabetes mellitus, type 2) Encounters Date Type Department Care Team Description 01/27/2024 10:30 AM ENTERPRISE APPLICATIONS MANAGER [facility] [address] [place] [address] Spenser Leonard MD Seizure (HCC) (Primary Dx) Discharge Disposition: Discharged to home or Selfcare 01/25/2024 11:18 AM ENTERPRISE APPLICATIONS MANAGER - 02/09/2024 6:35 PM ENTERPRISE APPLICATIONS MANAGER [facility] Int[facility] [address] [place] [address] KuzeljTa MD Patel, Satyen V, MD Carmicheal, Crystal Marie, MD Dianati, Behfar, MD Cardiopulmonary arrest with successful resuscitation (HCC) Discharge Disposition: Discharged/Transferred to IP Rehab Facility (IRF)/Unit 01/25/2024 Travel from Last 3 Months Social History Tobacco Use Types Packs/Day Years Used Date Smoking Tobacco: Former Cigarettes [facility] Utilities Answer Date Recorded In the past 12 months has th e electric, gas, oil, or water company threatened to shut off services in your home? Patient unable to answer 01/25/2024 Social Connection and Isolation Panel [NHANES] A nswer Date Recorded In a typical week, how many times do you talk on the phone with family, friends, or neighbors? Patient unable to answer 01/25/2024 How often do you get togethe r with friends or relatives? Patient unable to answer 01/25/2024 How often do you attend chur ch or presybeterian services? Patient unable to answer 01/25/2024 Do you belong to any clubs o r organizations such as sikh groups, unions, fraternal or athletic groups, or school groups? Patient unable to answer 01/25/2024 How often do you attend meet ings of the clubs or organizations you belong to? Patient unable to answer 01/25/2024 Are you , , di vorced, , never , or living with a partner? Patient unable to answer 01/25/2024 AUDIT-C Answer Date Recorded Q1: How often do you have a drink containing alcohol? Patient unable to answer 01/25/2024 Q2: How many drinks containi ng alcohol do you have on a typical day when you are drinking? Patient unable to answer Q3: How often do you have si x or more drinks on one occasion? Patient unable to answer 01/25/2024 Overall Financial Resource Strain (CARDIA) Answe r Date Recorded How hard is it for you to pa y for the very basics like food, housing, medical care, and heating? Patient unable to answer 01/25/2024 [facility] [place] [facility] - Occupational Stress Questionnaire Answer Date Recorded Do you feel stress - tense, restless, nervous, or anxious, or unable to sleep at night because your mind is troubled all the time - these days? Patient unable to answer 01/25/2024 Exercise Vital Sign Answer Date Recorde d On average, how many days pe r week do you engage in moderate to strenuous exercise (like a brisk walk)? Patient unable to answer 01/25/2024 On average, how many minutes do you engage in exercise at this level? Patient unable to answer 01/25/2024 Hunger Vital Sign Answer Date Recorded Within the past 12 months, y ou worried that your food would run out before you got the money to buy more. Patient unable to answer 01/25/2024 Within the past 12 months, t he food you bought just didn't last and you didn't have money to get more. Patient unable to answer 01/25/2024 PRAPARE - Transportation Answer Date Re corded In the past 12 months, has l ack of transportation kept you from medical appointments or from getting medications? Patient unable to answer 01/25/2024 In the past 12 months, has l ack of transportation kept you from meetings, work, or from getting things needed for daily living? Patient unable to answer 01/25/2024 Housing Stability Vital Sign Answer Joe e Recorded In the last 12 months, was t here a time when you were not able to pay the mortgage or rent on time? Patient unable to answer 01/25/2024 In the past 12 months, how m any times have you moved where you were living? 2 01/25/2024 At any time in the past 12 m [facility], were you homeless or living in a fdc (including now)? Patient unable to answer 01/25/2024 Sex and Gender Information Value Date Recorded Sex Assigned at Not on file Legal Sex Male 11:18 AM ENTERPRISE APPLICATIONS MANAGER Gender Identity Not on file Sexual Orientation Not on file Last Filed Vital Signs Vital Sign Reading Time Taken Comments Blood Pressure 133/73 02/09/2024 6:00 PM ENTERPRISE APPLICATIONS MANAGER Pulse 90 02/09/2024 6:00 PM ENTERPRISE APPLICATIONS MANAGER Temperature 37 ??C (98.6 ??F) 02/09/2024 7:00 AM ENTERPRISE APPLICATIONS MANAGER Respiratory Rate 23 02/09/2024 6:00 PM ENTERPRISE APPLICATIONS MANAGER Oxygen Saturation 100% 02/09/2024 6:00 PM ENTERPRISE APPLICATIONS MANAGER Inhaled Oxygen Concentration - - Weight 70.4 kg (155 lb 3.2 oz) 02/09/2024 6:00 A M ENTERPRISE APPLICATIONS MANAGER Height 177.8 cm (5' 10 ) 01/25/2024 5:06 PM ENTERPRISE APPLICATIONS MANAGER Body Mass Index 22.27 01/25/2024 5:06 PM ENTERPRISE APPLICATIONS MANAGER Plan of Treatment Health Maintenance Due Date Last Done Comments Diabetes: Eye Exam 1945 Diabetes: Foot Exam 1945 Hepatitis C Virus (HCV) Screening 1945 Respiratory Syncytial Virus (RSV) Immunization (Adult) (1 - 1-dose 75+ series) 07/04/2019 SARS-COV-2 Immunization (2023- season) 2023 12/18/2020, 04/19/2020, 03/22/2020 Diabetes: Hemoglobin A1c 07/25/2024 01/25/2024 Diabetes: Nephropathy Screening 02/07/2025 02/08/2024, 02/07/2024, 01/25/2024 TdaP Immunization Completed 06/26/2011, 02/10/2002 Zoster Immunization Completed 12/06/2021, Pneumococcal Immunization (50+ years) Completed 05/08/2023, 04/18/2023, 10/21/2016 Influenza Immunization Completed , 01/24/2023, 12/06/2021, Additional history exists Hepatitis B Immunization Aged Out No longer eligible based on patient's age to complete this topic Meningococcal Immunization (ACWY) Aged Out No longer eligible based on patient's age to complete this topic Rotavirus Immunization Aged Out No lo nger eligible based on patient's age to complete this topic Procedures Procedure Name Priority Date/Time Associated Diagnosis Comments CBC WITH AUTO DIFFERENTIAL Routine 02/09/2024 4:39 AM ENTERPRISE APPLICATIONS MANAGER BASIC METABOLIC PANEL W/ CALCIUM TOTAL Routine 02/09/2024 4:39 AM ENTERPRISE APPLICATIONS MANAGER COMPLETE BLOOD COUNT (CBC) WITH DIFF Routine 02/09/2024 4:39 AM ENTERPRISE APPLICATIONS MANAGER RHYTHM STRIP 02/09/2024 12:00 AM ENTERPRISE APPLICATIONS MANAGER RHYTHM STRIP 02/09/2024 12:00 AM ENTERPRISE APPLICATIONS MANAGER RHYTHM STRIP 02/09/2024 12:00 AM ENTERPRISE APPLICATIONS MANAGER RHYTHM STRIP 02/09/2024 12:00 AM ENTERPRISE APPLICATIONS MANAGER CBC WITH AUTO DIFFERENTIAL STAT 02/08/2024 3:45 AM ENTERPRISE APPLICATIONS MANAGER TROPONIN I, HIGH SENSITIVITY (HSTRP) STAT 02/08/2024 3:45 AM ENTERPRISE APPLICATIONS MANAGER CMP (COMPREHENSIVE METABOLIC PANEL) STAT 02/08/2024 3:45 AM ENTERPRISE APPLICATIONS MANAGER COMPLETE BLOOD COUNT (CBC) WITH DIFF STAT 02/08/2024 3:45 AM ENTERPRISE APPLICATIONS MANAGER B-TYPE NATRIURETIC PEPTIDE (BNP) STAT 02/08/2024 3:45 AM ENTERPRISE APPLICATIONS MANAGER XR CHEST SINGLE VIEW PORTABLE Stat with Interpretation 02/08/2024 3:44 AM ENTERPRISE APPLICATIONS MANAGER BLOOD GASES, ARTERIAL W/ O2 SATURATION Routine 02/08/2024 2:58 AM ENTERPRISE APPLICATIONS MANAGER RHYTHM STRIP 02/08/2024 12:00 AM ENTERPRISE APPLICATIONS MANAGER RHYTHM STRIP 02/08/2024 12:00 AM ENTERPRISE APPLICATIONS MANAGER RHYTHM STRIP 02/08/2024 12:00 AM ENTERPRISE APPLICATIONS MANAGER RHYTHM STRIP 02/08/2024 12:00 AM ENTERPRISE APPLICATIONS MANAGER RHYTHM STRIP 02/08/2024 12:00 AM ENTERPRISE APPLICATIONS MANAGER XR SMALL BOWEL FOLLOW THROUGH Routine 02/07/2024 2:33 PM ENTERPRISE APPLICATIONS MANAGER XR ABDOMEN KUB FLAT PLATE STAT 02/07/2024 11:42 AM ENTERPRISE APPLICATIONS MANAGER CBC WITH AUTO DIFFERENTIAL STAT 02/07/2024 8:02 AM ENTERPRISE APPLICATIONS MANAGER LACTIC ACID (LACTATE) STAT 02/07/2024 8:02 AM ENTERPRISE APPLICATIONS MANAGER CMP (COMPREHENSIVE METABOLIC PANEL) STAT 02/07/2024 8:02 AM ENTERPRISE APPLICATIONS MANAGER COMPLETE BLOOD COUNT (CBC) WITH DIFF STAT 02/07/2024 8:02 AM ENTERPRISE APPLICATIONS MANAGER XR ABDOMEN KUB FLAT PLATE Routine 02/07/2024 3:09 AM ENTERPRISE APPLICATIONS MANAGER RHYTHM STRIP 02/07/2024 12:00 AM ENTERPRISE APPLICATIONS MANAGER RHYTHM STRIP 02/07/2024 12:00 AM ENTERPRISE APPLICATIONS MANAGER RHYTHM STRIP 02/07/2024 12:00 AM ENTERPRISE APPLICATIONS MANAGER RHYTHM STRIP 02/07/2024 12:00 AM ENTERPRISE APPLICATIONS MANAGER RHYTHM STRIP 02/07/2024 12:00 AM ENTERPRISE APPLICATIONS MANAGER CT ABDOMEN PELVIS W/ CONTRAST Stat with Interpretation 02/06/2024 7:34 PM ENTERPRISE APPLICATIONS MANAGER MINT GREENMELVIN HEPARIN/SST TOP TUBE Routine 02/06/2024 1:40 PM ENTERPRISE APPLICATIONS MANAGER GOLD TOP TUBE Routine 02/06/2024 1:40 PM ENTERPRISE APPLICATIONS MANAGER BLUE TOP TUBE Routine 02/06/2024 1:40 PM ENTERPRISE APPLICATIONS MANAGER CBC WITH AUTO DIFFERENTIAL STAT 02/06/2024 1:40 PM ENTERPRISE APPLICATIONS MANAGER EXTRA TUBES Routine 02/06/2024 1:40 PM ENTERPRISE APPLICATIONS MANAGER B-TYPE NATRIURETIC PEPTIDE (BNP) STAT 02/06/2024 1:40 PM ENTERPRISE APPLICATIONS MANAGER COMPLETE BLOOD COUNT (CBC) WITH DIFF STAT 02/06/2024 1:40 PM ENTERPRISE APPLICATIONS MANAGER XR ABDOMEN KUB FLAT PLATE Stat with Interpretation 02/06/2024 12:54 PM ENTERPRISE APPLICATIONS MANAGER RHYTHM STRIP 02/06/2024 12:00 AM ENTERPRISE APPLICATIONS MANAGER RHYTHM STRIP 02/06/2024 12:00 AM ENTERPRISE APPLICATIONS MANAGER RHYTHM STRIP 02/06/2024 12:00 AM ENTERPRISE APPLICATIONS MANAGER RHYTHM STRIP 02/06/2024 12:00 AM ENTERPRISE APPLICATIONS MANAGER XR SWALLOWING FUNCTION STUDY WITH VIDEO/CINE Routine 02/05/2024 10:40 AM ENTERPRISE APPLICATIONS MANAGER POCT GLUCOSE Routine 02/05/2024 8:55 AM ENTERPRISE APPLICATIONS MANAGER RHYTHM STRIP 02/05/2024 12:00 AM ENTERPRISE APPLICATIONS MANAGER RHYTHM STRIP 02/05/2024 12:00 AM ENTERPRISE APPLICATIONS MANAGER RHYTHM STRIP 02/05/2024 12:00 AM ENTERPRISE APPLICATIONS MANAGER RHYTHM STRIP 02/05/2024 12:00 AM ENTERPRISE APPLICATIONS MANAGER POCT GLUCOSE Routine 02/04/2024 5:11 PM ENTERPRISE APPLICATIONS MANAGER POCT GLUCOSE Routine 02/04/2024 10:43 AM ENTERPRISE APPLICATIONS MANAGER POCT GLUCOSE Routine 02/04/2024 5:07 AM ENTERPRISE APPLICATIONS MANAGER RHYTHM STRIP 02/04/2024 12:00 AM ENTERPRISE APPLICATIONS MANAGER RHYTHM STRIP 02/04/2024 12:00 AM ENTERPRISE APPLICATIONS MANAGER RHYTHM STRIP 02/04/2024 12:00 AM ENTERPRISE APPLICATIONS MANAGER RHYTHM STRIP 02/04/2024 12:00 AM ENTERPRISE APPLICATIONS MANAGER RHYTHM STRIP 02/04/2024 12:00 AM ENTERPRISE APPLICATIONS MANAGER RHYTHM STRIP 02/04/2024 12:00 AM ENTERPRISE APPLICATIONS MANAGER POCT GLUCOSE Routine 02/03/2024 10:21 PM ENTERPRISE APPLICATIONS MANAGER POCT GLUCOSE Routine 02/03/2024 4:27 PM ENTERPRISE APPLICATIONS MANAGER POCT GLUCOSE Routine 02/03/2024 11:49 AM ENTERPRISE APPLICATIONS MANAGER CBC WITH AUTO DIFFERENTIAL Routine 02/03/2024 10:53 AM ENTERPRISE APPLICATIONS MANAGER COMPLETE BLOOD COUNT (CBC) WITH DIFF Routine 02/03/2024 10:53 AM ENTERPRISE APPLICATIONS MANAGER BASIC METABOLIC PANEL W/ CALCIUM TOTAL Routine 02/03/2024 10:43 AM ENTERPRISE APPLICATIONS MANAGER XR CHEST SINGLE VIEW PORTABLE Routine 02/03/2024 9:53 AM ENTERPRISE APPLICATIONS MANAGER POCT GLUCOSE Routine 02/03/2024 7:51 AM ENTERPRISE APPLICATIONS MANAGER POCT GLUCOSE Routine 02/03/2024 5:07 AM ENTERPRISE APPLICATIONS MANAGER RHYTHM STRIP 02/03/2024 12:00 AM ENTERPRISE APPLICATIONS MANAGER RHYTHM STRIP 02/03/2024 12:00 AM ENTERPRISE APPLICATIONS MANAGER RHYTHM STRIP 02/03/2024 12:00 AM ENTERPRISE APPLICATIONS MANAGER RHYTHM STRIP 02/03/2024 12:00 AM ENTERPRISE APPLICATIONS MANAGER POCT GLUCOSE Routine 02/02/2024 10:58 PM ENTERPRISE APPLICATIONS MANAGER POCT GLUCOSE Routine 02/02/2024 5:51 PM ENTERPRISE APPLICATIONS MANAGER POCT GLUCOSE Routine 02/02/2024 12:02 PM ENTERPRISE APPLICATIONS MANAGER INCENTIVE SPIROMETRY RT-INITIAL Routine 02/02/2024 11:36 AM ENTERPRISE APPLICATIONS MANAGER POCT GLUCOSE Routine 02/02/2024 5:21 AM ENTERPRISE APPLICATIONS MANAGER RHYTHM STRIP 02/02/2024 12:00 AM ENTERPRISE APPLICATIONS MANAGER RHYTHM STRIP 02/02/2024 12:00 AM ENTERPRISE APPLICATIONS MANAGER RHYTHM STRIP 02/02/2024 12:00 AM ENTERPRISE APPLICATIONS MANAGER POCT GLUCOSE Routine 02/01/2024 11:01 PM ENTERPRISE APPLICATIONS MANAGER POCT GLUCOSE Routine 02/01/2024 5:52 PM ENTERPRISE APPLICATIONS MANAGER POCT GLUCOSE Routine 02/01/2024 12:55 PM ENTERPRISE APPLICATIONS MANAGER CBC WITH AUTO DIFFERENTIAL Routine 02/01/2024 4:38 AM ENTERPRISE APPLICATIONS MANAGER COMPLETE BLOOD COUNT (CBC) WITH DIFF Routine 02/01/2024 4:38 AM ENTERPRISE APPLICATIONS MANAGER BASIC METABOLIC PANEL W/ CALCIUM TOTAL Routine 02/01/2024 4:38 AM ENTERPRISE APPLICATIONS MANAGER RHYTHM STRIP 02/01/2024 12:00 AM ENTERPRISE APPLICATIONS MANAGER RHYTHM STRIP 02/01/2024 12:00 AM ENTERPRISE APPLICATIONS MANAGER RHYTHM STRIP 02/01/2024 12:00 AM ENTERPRISE APPLICATIONS MANAGER POCT GLUCOSE Routine 01/31/2024 11:44 PM ENTERPRISE APPLICATIONS MANAGER POCT GLUCOSE Routine 01/31/2024 5:28 PM ENTERPRISE APPLICATIONS MANAGER POCT GLUCOSE Routine 01/31/2024 12:25 PM ENTERPRISE APPLICATIONS MANAGER POCT GLUCOSE Routine 01/31/2024 5:59 AM ENTERPRISE APPLICATIONS MANAGER RHYTHM STRIP 01/31/2024 12:00 AM ENTERPRISE APPLICATIONS MANAGER POCT GLUCOSE Routine 01/30/2024 11:29 PM ENTERPRISE APPLICATIONS MANAGER POCT GLUCOSE Routine 01/30/2024 4:54 PM ENTERPRISE APPLICATIONS MANAGER POCT GLUCOSE Routine 01/30/2024 12:19 PM ENTERPRISE APPLICATIONS MANAGER PT EVALUATE AND TREAT Routine 01/30/2024 9:23 AM ENTERPRISE APPLICATIONS MANAGER OT EVALUATE AND TREAT Routine 01/30/2024 9:23 AM ENTERPRISE APPLICATIONS MANAGER PHOSPHORUS (PO4) Routine 01/30/2024 9:17 AM ENTERPRISE APPLICATIONS MANAGER MAGNESIUM (MG) Routine 01/30/2024 9:17 AM ENTERPRISE APPLICATIONS MANAGER BASIC METABOLIC PANEL W/ CALCIUM TOTAL Routine 01/30/2024 9:17 AM ENTERPRISE APPLICATIONS MANAGER XR CHEST SINGLE VIEW PORTABLE Routine 01/30/2024 6:55 AM ENTERPRISE APPLICATIONS MANAGER CBC WITH AUTO DIFFERENTIAL Routine 01/30/2024 4:22 AM ENTERPRISE APPLICATIONS MANAGER COMPLETE BLOOD COUNT (CBC) WITH DIFF Routine 01/30/2024 4:22 AM ENTERPRISE APPLICATIONS MANAGER RENAL FUNCTION PANEL (RFP) Routine 01/30/2024 4:22 AM ENTERPRISE APPLICATIONS MANAGER RHYTHM STRIP 01/30/2024 12:00 AM ENTERPRISE APPLICATIONS MANAGER RHYTHM STRIP 01/30/2024 12:00 AM ENTERPRISE APPLICATIONS MANAGER POCT GLUCOSE Routine 01/29/2024 11:54 PM ENTERPRISE APPLICATIONS MANAGER POCT GLUCOSE Routine 01/29/2024 5:40 PM ENTERPRISE APPLICATIONS MANAGER POCT GLUCOSE Routine 01/29/2024 11:25 AM ENTERPRISE APPLICATIONS MANAGER COMMUNICATION TO RESPIRATORY THERAPY Routine 01/29/2024 10:39 AM ENTERPRISE APPLICATIONS MANAGER POCT GLUCOSE Routine 01/29/2024 6:40 AM ENTERPRISE APPLICATIONS MANAGER CBC WITH AUTO DIFFERENTIAL Routine 01/29/2024 4:49 AM ENTERPRISE APPLICATIONS MANAGER COMPLETE BLOOD COUNT (CBC) WITH DIFF Routine 01/29/2024 4:49 AM ENTERPRISE APPLICATIONS MANAGER RENAL FUNCTION PANEL (RFP) Routine 01/29/2024 4:49 AM ENTERPRISE APPLICATIONS MANAGER RHYTHM STRIP 01/29/2024 12:00 AM ENTERPRISE APPLICATIONS MANAGER RHYTHM STRIP 01/29/2024 12:00 AM ENTERPRISE APPLICATIONS MANAGER RHYTHM STRIP 01/29/2024 12:00 AM ENTERPRISE APPLICATIONS MANAGER POCT GLUCOSE Routine 01/28/2024 10:57 PM ENTERPRISE APPLICATIONS MANAGER POCT GLUCOSE Routine 01/28/2024 5:21 PM ENTERPRISE APPLICATIONS MANAGER BLOOD GASES, ARTERIAL W/ O2 SATURATION Routine 01/28/2024 11:27 AM ENTERPRISE APPLICATIONS MANAGER POCT GLUCOSE Routine 01/28/2024 11:23 AM ENTERPRISE APPLICATIONS MANAGER CBC WITH AUTO DIFFERENTIAL Routine 01/28/2024 9:08 AM ENTERPRISE APPLICATIONS MANAGER COMPLETE BLOOD COUNT (CBC) WITH DIFF Routine 01/28/2024 9:08 AM ENTERPRISE APPLICATIONS MANAGER XR CHEST SINGLE VIEW PORTABLE Routine 01/28/2024 5:21 AM ENTERPRISE APPLICATIONS MANAGER POCT GLUCOSE Routine 01/28/2024 5:10 AM ENTERPRISE APPLICATIONS MANAGER CBC WITH AUTO DIFFERENTIAL Routine 01/28/2024 4:13 AM ENTERPRISE APPLICATIONS MANAGER BASIC METABOLIC PANEL W/ CALCIUM TOTAL Routine 01/28/2024 4:13 AM ENTERPRISE APPLICATIONS MANAGER PHOSPHORUS (PO4) Routine 01/28/2024 4:13 AM ENTERPRISE APPLICATIONS MANAGER HEPATIC FUNCTION PANEL Routine 01/28/2024 4:13 AM ENTERPRISE APPLICATIONS MANAGER AMMONIA Routine 01/28/2024 4:13 AM ENTERPRISE APPLICATIONS MANAGER MAGNESIUM (MG) Routine 01/28/2024 4:13 AM ENTERPRISE APPLICATIONS MANAGER COMPLETE BLOOD COUNT (CBC) WITH DIFF Routine 01/28/2024 4:13 AM ENTERPRISE APPLICATIONS MANAGER RHYTHM STRIP 01/28/2024 12:00 AM ENTERPRISE APPLICATIONS MANAGER RHYTHM STRIP 01/28/2024 12:00 AM ENTERPRISE APPLICATIONS MANAGER RHYTHM STRIP 01/28/2024 12:00 AM ENTERPRISE APPLICATIONS MANAGER RHYTHM STRIP 01/28/2024 12:00 AM ENTERPRISE APPLICATIONS MANAGER POCT GLUCOSE Routine 01/27/2024 11:30 PM ENTERPRISE APPLICATIONS MANAGER POCT GLUCOSE Routine 01/27/2024 7:07 PM ENTERPRISE APPLICATIONS MANAGER POCT GLUCOSE Routine 01/27/2024 12:17 PM ENTERPRISE APPLICATIONS MANAGER EEG Routine 01/27/2024 10:30 AM ENTERPRISE APPLICATIONS MANAGER TYPE & SCREEN (CROSSMATCH CONVERTIBLE) STAT 01/27/2024 9:49 AM ENTERPRISE APPLICATIONS MANAGER HEMOGLOBIN & HEMATOCRIT (H&H) STAT 01/27/2024 9:49 AM ENTERPRISE APPLICATIONS MANAGER XR CHEST SINGLE VIEW PORTABLE Routine 01/27/2024 6:16 AM ENTERPRISE APPLICATIONS MANAGER POCT GLUCOSE Routine 01/27/2024 5:25 AM ENTERPRISE APPLICATIONS MANAGER CBC WITH AUTO DIFFERENTIAL Routine 01/27/2024 4:20 AM ENTERPRISE APPLICATIONS MANAGER RENAL FUNCTION PANEL (RFP) Routine 01/27/2024 4:20 AM ENTERPRISE APPLICATIONS MANAGER MAGNESIUM (MG) Routine 01/27/2024 4:20 AM ENTERPRISE APPLICATIONS MANAGER COMPLETE BLOOD COUNT (CBC) WITH DIFF Routine 01/27/2024 4:20 AM ENTERPRISE APPLICATIONS MANAGER RHYTHM STRIP 01/27/2024 12:00 AM ENTERPRISE APPLICATIONS MANAGER RHYTHM STRIP 01/27/2024 12:00 AM ENTERPRISE APPLICATIONS MANAGER RHYTHM STRIP 01/27/2024 12:00 AM ENTERPRISE APPLICATIONS MANAGER RHYTHM STRIP 01/27/2024 12:00 AM ENTERPRISE APPLICATIONS MANAGER RHYTHM STRIP 01/27/2024 12:00 AM ENTERPRISE APPLICATIONS MANAGER POCT GLUCOSE Routine 01/26/2024 11:13 PM ENTERPRISE APPLICATIONS MANAGER POCT GLUCOSE Routine 01/26/2024 5:36 PM ENTERPRISE APPLICATIONS MANAGER POCT GLUCOSE Routine 01/26/2024 12:27 PM ENTERPRISE APPLICATIONS MANAGER ADULT TRANS THORACIC ECHO 2D COMPLT W CONT STAT 01/26/2024 7:53 AM ENTERPRISE APPLICATIONS MANAGER UR LEGIONELLA ANTIGEN Routine 01/26/2024 6:28 AM ENTERPRISE APPLICATIONS MANAGER STREPTOCOCCUS PNEUMONIAE ANTIGEN, URINE Routine 01/26/2024 6:28 AM ENTERPRISE APPLICATIONS MANAGER XR CHEST SINGLE VIEW PORTABLE Routine 01/26/2024 6:16 AM ENTERPRISE APPLICATIONS MANAGER PROCALCITONIN Routine 01/26/2024 6:15 AM ENTERPRISE APPLICATIONS MANAGER MANUAL DIFFERENTIAL STAT 01/26/2024 4 :28 AM ENTERPRISE APPLICATIONS MANAGER CBC WITH AUTO DIFFERENTIAL STAT 01/26/2024 4:28 AM ENTERPRISE APPLICATIONS MANAGER TROPONIN I, HIGH SENSITIVITY (HSTRP) Routine 01/26/2024 4:28 AM ENTERPRISE APPLICATIONS MANAGER MAGNESIUM (MG) Routine 01/26/2024 4:28 AM ENTERPRISE APPLICATIONS MANAGER CREATINE KINASE (CK) TOTAL Routine 01/26/2024 4:28 AM ENTERPRISE APPLICATIONS MANAGER TRIGLYCERIDES Routine 01/26/2024 4:28 AM ENTERPRISE APPLICATIONS MANAGER LIPID PANEL STAT 01/26/2024 4:28 AM ENTERPRISE APPLICATIONS MANAGER THYROID STIMULATING HORMONE (TSH) Routine 01/26/2024 4:28 AM ENTERPRISE APPLICATIONS MANAGER LACTIC ACID (LACTATE) STAT 01/26/2024 4:28 AM ENTERPRISE APPLICATIONS MANAGER HEPATIC FUNCTION PANEL STAT 01/26/2024 4:28 AM ENTERPRISE APPLICATIONS MANAGER BASIC METABOLIC PANEL W/ CALCIUM TOTAL STAT 01/26/2024 4:28 AM ENTERPRISE APPLICATIONS MANAGER COMPLETE BLOOD COUNT (CBC) WITH DIFF STAT 01/26/2024 4:28 AM ENTERPRISE APPLICATIONS MANAGER POCT GLUCOSE Routine 01/26/2024 12:29 AM ENTERPRISE APPLICATIONS MANAGER RHYTHM STRIP 01/26/2024 12:00 AM ENTERPRISE APPLICATIONS MANAGER RHYTHM STRIP 01/26/2024 12:00 AM ENTERPRISE APPLICATIONS MANAGER RHYTHM STRIP 01/26/2024 12:00 AM ENTERPRISE APPLICATIONS MANAGER RHYTHM STRIP 01/26/2024 12:00 AM ENTERPRISE APPLICATIONS MANAGER AEROSOL NEBULIZER-INITIAL Routine 01/25/2024 10:31 PM ENTERPRISE APPLICATIONS MANAGER LACTIC ACID (LACTATE) STAT 01/25/2024 7:29 PM ENTERPRISE APPLICATIONS MANAGER TROPONIN I, HIGH SENSITIVITY (HSTRP) STAT 01/25/2024 7:29 PM ENTERPRISE APPLICATIONS MANAGER MRSA NASAL PCR STAT 01/25/2024 7:29 PM ENTERPRISE APPLICATIONS MANAGER MRSA NASAL BY PCR STAT 01/25/2024 7:2 9 PM ENTERPRISE APPLICATIONS MANAGER CULTURE, RESPIRATORY, LOWER Routine 01/25/2024 7:12 PM ENTERPRISE APPLICATIONS MANAGER APTT (PTT) STAT 01/25/2024 3:37 PM ENTERPRISE APPLICATIONS MANAGER TROPONIN I, HIGH SENSITIVITY (HSTRP) STAT 01/25/2024 3:28 PM ENTERPRISE APPLICATIONS MANAGER EKG 12 LEAD STAT 01/25/2024 2:39 PM ENTERPRISE APPLICATIONS MANAGER CT CHEST, ABDOMEN, PELVIS WITHOUT CONTRAST Stat with Interpretation 01/25/2024 2:27 PM ENTERPRISE APPLICATIONS MANAGER BLOOD GASES, ARTERIAL W/ O2 SATURATION STAT 01/25/2024 2:02 PM ENTERPRISE APPLICATIONS MANAGER URINE DRUG SCREEN STAT 01/25/2024 1:3 1 PM ENTERPRISE APPLICATIONS MANAGER URINALYSIS REFLEX IF INDICATED BY ABNORMAL RESULTS STAT 01/25/2024 1:31 PM ENTERPRISE APPLICATIONS MANAGER CULTURE, URINE STAT 01/25/2024 1:31 PM ENTERPRISE APPLICATIONS MANAGER LACTIC ACID (LACTATE) STAT 01/25/2024 1:30 PM ENTERPRISE APPLICATIONS MANAGER TROPONIN I, HIGH SENSITIVITY (HSTRP) STAT 01/25/2024 1:30 PM ENTERPRISE APPLICATIONS MANAGER CULTURE, BLOOD STAT 01/25/2024 1:25 PM ENTERPRISE APPLICATIONS MANAGER CULTURE, BLOOD STAT 01/25/2024 1:05 PM ENTERPRISE APPLICATIONS MANAGER BLOOD GASES, ARTERIAL W/ O2 SATURATION STAT 01/25/2024 12:55 PM ENTERPRISE APPLICATIONS MANAGER CTA STROKE HEAD AND NECK Stat with Interpretation 01/25/2024 12:40 PM ENTERPRISE APPLICATIONS MANAGER CT HEAD OR BRAIN WO CONTRAST Stat with Interpretation 01/25/2024 12:37 PM ENTERPRISE APPLICATIONS MANAGER RSV,SARS-COV-2,INFL UENZA A&B BY PCR STAT 01/25/2024 12:10 PM ENTERPRISE APPLICATIONS MANAGER TYPE & SCREEN (CROSSMATCH CONVERTIBLE) STAT 01/25/2024 12:09 PM ENTERPRISE APPLICATIONS MANAGER LEVETIRACETAM STAT 01/25/2024 12:09 PM ENTERPRISE APPLICATIONS MANAGER LACTIC ACID (LACTATE) STAT 01/25/2024 12:09 PM ENTERPRISE APPLICATIONS MANAGER CBC WITH AUTO DIFFERENTIAL STAT 01/25/2024 12:01 PM ENTERPRISE APPLICATIONS MANAGER HEMOGLOBIN A1C W/ ESTIMATED GLUCOSE STAT 01/25/2024 12:01 PM ENTERPRISE APPLICATIONS MANAGER TROPONIN I, HIGH SENSITIVITY (HSTRP) STAT 01/25/2024 12:01 PM ENTERPRISE APPLICATIONS MANAGER MAGNESIUM (MG) STAT 01/25/2024 12:01 PM ENTERPRISE APPLICATIONS MANAGER CMP (COMPREHENSIVE METABOLIC PANEL) STAT 01/25/2024 12:01 PM ENTERPRISE APPLICATIONS MANAGER PROTIME (PT) (PROTHROMBIN TIME) STAT 01/25/2024 12:01 PM ENTERPRISE APPLICATIONS MANAGER APTT (PTT) STAT 01/25/2024 12:01 PM ENTERPRISE APPLICATIONS MANAGER COMPLETE BLOOD COUNT (CBC) WITH DIFF STAT 01/25/2024 12:01 PM ENTERPRISE APPLICATIONS MANAGER BLOOD GASES, ARTERIAL W/ O2 SATURATION STAT 01/25/2024 11:54 AM ENTERPRISE APPLICATIONS MANAGER CRITICAL CARE Routine 01/25/2024 11:51 AM ENTERPRISE APPLICATIONS MANAGER INTUBATION Routine 01/25/2024 11:51 AM ENTERPRISE APPLICATIONS MANAGER XR CHEST SINGLE VIEW PORTABLE STAT 01/25/2024 11:49 AM ENTERPRISE APPLICATIONS MANAGER POCT GLUCOSE STAT 01/25/2024 11:48 AM ENTERPRISE APPLICATIONS MANAGER EKG 12 LEAD STAT 01/25/2024 11:44 AM ENTERPRISE APPLICATIONS MANAGER POCT CREATININE STAT 01/25/2024 11:35 AM ENTERPRISE APPLICATIONS MANAGER CT STROKE HEAD WO CONTRAST Stat with Interpretation 01/25/2024 11:29 AM ENTERPRISE APPLICATIONS MANAGER POCT GLUCOSE STAT 01/25/2024 11:24 AM ENTERPRISE APPLICATIONS MANAGER RHYTHM STRIP 01/25/2024 12:00 AM ENTERPRISE APPLICATIONS MANAGER RHYTHM STRIP 01/25/2024 12:00 AM ENTERPRISE APPLICATIONS MANAGER RHYTHM STRIP 01/25/2024 12:00 AM ENTERPRISE APPLICATIONS MANAGER RHYTHM STRIP 01/25/2024 12:00 AM ENTERPRISE APPLICATIONS MANAGER EKG SCAN 01/25/2024 12:00 AM ENTERPRISE APPLICATIONS MANAGER from Last 3 Months Results * (ABNORMAL) CBC with Auto Differential (02/09/2024 4:39 AM ENTERPRISE APPLICATIONS MANAGER) Only the most recent of13 resultswithin the time period is included. WBC 9.15 4.00 - 12.00 10(3)/mcL 02/09/2024 5:03 AM ENTERPRISE APPLICATIONS MANAGER [facility] RBC 3.09(L) 4.40 - 5.80 10(6)/mcL 02/09/2024 5:03 AM ENTERPRISE APPLICATIONS MANAGER [facility] HEMOGLOBIN (HGB) 8.9(L) 13.0 - 16.5 g/dL 02/09/2024 5:03 AM [facility] HEMATOCRIT (HCT) 28.6(L) 38.0 - 50.0 % 02/09/2024 5:03 AM [facility] MCV 92.6 82.0 - 96.0 fL 02/09/2024 5:03 AM [facility] MCH 28.8 26.0 - 32.0 pg 02/09/2024 5:03 AM [facility] MCHC 31.1 31.0 - 36.0 g/dL 02/09/2024 5:03 AM [facility] PLATELET COUNT 400 140 - 440 10(3)/mcL 02/09/2024 5:03 AM [facility] RDW 15.9(H) 11.8 - 15.5 % 02/09/2024 5:03 AM [facility] MPV 10.7 8.0 - 12.6 fL 02/09/2024 5:03 AM [facility] NEUTROPHILS 71.9(H) 40.0 - 68.0 % 02/09/2024 5:03 AM [facility] LYMPHOCYTES 16.8(L) 19.0 - 49.0 % 02/09/2024 5:03 AM [facility] MONOCYTES 9.5 3.0 - 13.0 % 02/09/2024 5:03 AM [facility] EOSINOPHILS 1.5 0.0 - 8.0 % 02/09/2024 5:03 AM [facility] BASOPHILS 0.3 0.0 - 1.0 % 02/09/2024 5:03 AM [facility] ABSOLUTE NEUTROPHILS 6.57(H) 1.40 - 5.30 10(3)/mcL 02/09/2024 5:03 AM [facility] ABSOLUTE LYMPHOCYTES 1.54 0.90 - 3.30 10(3)/mcL 02/09/2024 5:03 AM [facility] ABSOLUTE MONOCYTES 0.87 0.10 - 0.90 10(3)/mcL 02/09/2024 5:03 AM ENTERPRISE APPLICATIONS MANAGER [facility] ABSOLUTE EOSINOPHIL 0.14 0.00 - 0.50 10(3)/mcL 02/09/2024 5:03 AM ENTERPRISE APPLICATIONS MANAGER [facility] ABSOLUTE BASOPHILS 0.03 0.00 - 0.10 10(3)/mcL 02/09/2024 5:03 AM ENTERPRISE APPLICATIONS MANAGER [facility] NRBC PER 100 WBC 0 02/09/20 5:03 AM ENTERPRISE APPLICATIONS MANAGER [facility] Blood Venipuncture / Unknown 02/09/2024 4:39 AM ENTERPRISE APPLICATIONS MANAGER 02/09/2024 5:00 AM ENTERPRISE APPLICATIONS MANAGER us Ector Carroll MD HEMATOLOGY ORDERABLES Final Re sult [facility] [place] [address] * (ABNORMAL) Basic Metabolic Panel w/ Calcium Total (02/09/2024 4:39 AM ENTERPRISE APPLICATIONS MANAGER) Only the most recent of6 resultswithin the time period is included. SODIUM 142 136 - 145 mmol/L 02/09/2024 5:24 AM [facility] POTASSIUM 3.2(L) 3.5 - 5.1 mmol/L 02/09/2024 5:24 AM [facility] CHLORIDE 102 98 - 107 mmol/L 02/09/2024 5:24 AM [facility] CO2, VENOUS 35(H) 22 - 30 mmol/L 02/09/2024 5:24 AM [facility] ANION GAP 8.2 <18.0 mmol/L 02/09/2024 5:24 AM [facility] GLUCOSE 106(H) 70 - 99 mg/dL 02/09/2024 5:24 AM [facility] BUN 15 8 - 26 mg/dL 02/09/2024 5:24 AM ENTERPRISE APPLICATIONS MANAGER [facility] CREATININE, BLOOD 0.74 0.70 - 1.30 mg/dL 02/09/2024 5:24 AM ENTERPRISE APPLICATIONS MANAGER [facility] BUN/CREATININE RATIO 20 12 - 20 ratio 02/09/2024 5:24 AM ENTERPRISE APPLICATIONS MANAGER [facility] CALCIUM 8.6(L) 8.7 - 10.5 mg/dL 02/09/2024 5:24 AM ENTERPRISE APPLICATIONS MANAGER [facility] GFR, ESTIMATED >60 >=60 02/09/2024 5:24 AM ENTERPRISE APPLICATIONS MANAGER [facility] Comment: Creatinine Clearance is the preferred criteria for selecting drug dose adjustments in renally impaired patients. ??The GFR is provided as additional pertinent clinical information. GFR is reported in mL/min/1.73 sq m. Calculation based on the Chronic Kidney Disease Epidemiology Collaboration (CKD- EPI) equation refit without adjustment for race. GFR, EST. >60 >=60 024 5:24 AM ENTERPRISE APPLICATIONS MANAGER [facility] GFR, EST. NONAFRICAN >60 >=60 02/09/2024 5:24 AM ENTERPRISE APPLICATIONS MANAGER [facility] Blood Venipuncture / Unknown 02/09/2024 4:39 AM ENTERPRISE APPLICATIONS MANAGER 02/09/2024 5:00 AM ENTERPRISE APPLICATIONS MANAGER Ector Carroll MD CHEMISTRY ORDERABLES Final Res ult Performing Organization Address City/[facility]/ZIP Co de Phone Number [facility] [place] [address] * RHYTHM STRIP (02/09/2024 12:00 AM ENTERPRISE APPLICATIONS MANAGER) Only the most recent of61 resultswithin the time period is included. 02/09/2024 us Provider Scan IMG ECG ORDERABLES Final Result RESULTING AGENCY * TROPONIN I, HIGH SENSITIVITY (HSTRP) (02/08/2024 3:45 AM ENTERPRISE APPLICATIONS MANAGER) Only the most recent of6 resultswithin the time period is included. TROPONIN I, HIGH SENSITIVITY- [place] 9 <=35 ng/L 02/08/2024 6:35 AM ENTERPRISE APPLICATIONS MANAGER [facility] Comment: High-sensitivity troponin I results are reported in ng/L making the result appear to be 1,000 times higher than the contemporary troponin I value which is reported in ng/ml. Results from [facility]. Blood Venipuncture / Unknown 02/08/2024 3:45 AM ENTERPRISE APPLICATIONS MANAGER 02/08/2024 3:48 AM ENTERPRISE APPLICATIONS MANAGER us Luzma Bermudez AGENT, HUSSEIN CHEMISTRY ORDERABLES Madyson bravo Result [facility] [place] [address] * (ABNORMAL) CMP (Comprehensive Metabolic Panel) (02/08/2024 3:45 AM ENTERPRISE APPLICATIONS MANAGER) Only the most recent of3 resultswithin the time period is included. Pathologist [facility] SODIUM 146(H) 136 - 145 mmol/L 02/08/2024 4:10 AM ENTERPRISE APPLICATIONS MANAGER [facility] POTASSIUM 3.5 3.5 - 5.1 mmol/L 02/08/2024 4:10 AM [facility] CHLORIDE 106 98 - 107 mmol/L 02/08/2024 4:10 AM [facility] CO2, VENOUS 30 22 - 30 mmol/L 02/08/2024 4:10 AM [facility] ANION GAP 13.5 <18.0 mmol/L 02/08/2024 4:10 AM [facility] GLUCOSE 168(H) 70 - 99 mg/dL 02/08/2024 4:10 AM [facility] BUN 16 8 - 26 mg/dL 02/08/2024 4:10 AM [facility] CREATININE, BLOOD 0.73 0.70 - 1.30 mg/dL 02/08/2024 4:10 AM [facility] BUN/CREATININE RATIO 22(H) 12 - 20 ratio 02/08/2024 4:10 AM [facility] TOTAL PROTEIN 6.4 6.3 - 8.2 g/dL 02/08/2024 4:10 AM [facility] ALBUMIN 3.0(L) 3.5 - 5.0 g/dL 02/08/2024 4:10 AM [facility] A/G RATIO 0.9(L) 1.0 - 2.2 02/08/2024 4:10 AM [facility] CALCIUM 8.8 8.7 - 10.5 mg/dL 02/08/2024 4:10 AM [facility] T BILI 0.5 0.2 - 1.2 mg/dL 02/08/2024 4:10 AM [facility] SGOT (AST) 12 5 - 34 U/L 02/08/2024 4:10 AM [facility] SGPT (ALT) 9 0 - 55 U/L 02/08/2024 4:10 AM [facility] ALKALINE PHOSPHATASE 107 40 - 150 U/L 02/08/2024 4:10 AM [facility] GFR, ESTIMATED >60 >=60 02/08/2024 4:10 AM [facility] Comment: Creatinine Clearance is the preferred criteria for selecting drug dose adjustments in renally impaired patients. ??The GFR is provided as additional pertinent clinical information. GFR is reported in mL/min/1.73 sq m. Calculation based on the Chronic Kidney Disease Epidemiology Collaboration (CKD- EPI) equation refit without adjustment for race. GFR, EST. >60 >=60 024 4:10 AM [facility] GFR, EST. NONAFRICAN >60 >=60 02/08/2024 4:10 AM [facility] Blood Venipuncture / Unknown 02/08/2024 3:45 AM ENTERPRISE APPLICATIONS MANAGER 02/08/2024 3:48 AM ENTERPRISE APPLICATIONS MANAGER us Luzma Bermudez APRN, LAST MARKER CHEMISTRY ORDERABLES Madyson l Result Performing Organization Address City/[facility]/ZIP Co de Phone Number [facility] [place] [address] * (ABNORMAL) B-Type Natriuretic Peptide (BNP) (02/08/2024 3:45 AM ENTERPRISE APPLICATIONS MANAGER) Only the most recent of2 resultswithin the time period is included. B TYPE NATRIURETIC PEPTIDE 346(H) <100 pg/mL 02/08/2024 4:42 AM ENTERPRISE APPLICATIONS MANAGER [facility] Blood Venipuncture / Unknown 02/08/2024 3:45 AM ENTERPRISE APPLICATIONS MANAGER 02/08/2024 3:48 AM ENTERPRISE APPLICATIONS MANAGER Luzma Bermudez APRN, LAST MARKER CHEMISTRY ORDERABLES Madyson l Result Performing Organization Address [facility] Co de Phone Number [facility] [address] [place] [address] * XR CHEST SINGLE VIEW PORTABLE (02/08/2024 3:44 AM ENTERPRISE APPLICATIONS MANAGER) Only the most recent of7 resultswithin the time period is included. Anatomical Region Laterality Modality Chest N/A Digital Radiogra phy 02/08/2024 4:27 AM ENTERPRISE APPLICATIONS MANAGER Impressions 02/08/2024 4:30 AM ENTERPRISE APPLICATIONS MANAGER IMPRESSION: ?? Worsening CHF with bilateral pleural effusions. Narrative 02/08/2024 4:30 AM ENTERPRISE APPLICATIONS MANAGER EXAM DESCRIPTION: ?? XR CHEST SINGLE VIEW PORTABLE REASON FOR STUDY: ?? sob ?? TECHNIQUE: Single radiographic view of the chest. COMPARISON: ?? Chest x-ray of February 03, 2024. FINDINGS: LUNGS/PLEURA: ?? Lungs are hypoventilatory with diffusely increased interstitial markings, perihilar haziness, bibasilar atelectasis and small bilateral pleural effusions, slightly increased from previous study. HEART/MEDIASTINUM: Cardiac silhouette is ??enlarged. ??There is atherosclerosis of the aorta. ?? Remaining mediastinal silhouettes are unremarkable. HARDWARE/LINES/TUBES: ?? EKG leads overlie the film. BONES: ?? No acute findings. THIS IS AN ELECTRONICALLY VERIFIED FINAL REPORT 02/08/2024 4:27 AM - Electronically signed by ??Jessica Pena M.D. SN: SN D: ??02/08/2024 4:26 AM T: ??02/08/2024 4:27 AM Report ID: [id number] Reading Location: ??[id number] Procedure Note Jessica Pena MD - 02/08/2024 EXAM DESCRIPTION: XR CHEST SINGLE VIEW PORTABLE REASON FOR STUDY: sob TECHNIQUE: Single radiographic view of the chest. COMPARISON: Chest x-ray of February 03, 2024. FINDINGS: LUNGS/PLEURA: Lungs are hypoventilatory with diffusely increased interstitial markings, perihilar haziness, bibasilar atelectasis and small bilateral pleural effusions, slightly increased from previous study. HEART/MEDIASTINUM: Cardiac silhouette is enlarged. There is atherosclerosis of the aorta. Remaining mediastinal silhouettes are unremarkable. HARDWARE/LINES/TUBES: EKG leads overlie the film. BONES: No acute findings. THIS IS AN ELECTRONICALLY VERIFIED FINAL REPORT 02/08/2024 4:27 AM - Electronically signed by Jessica Pena M.D. SN: Report ID: [id number] Reading Location: [id number] IMPRESSION: Worsening CHF with bilateral pleural effusions. Arelis Sellers AGENT, LAST MARKER IMG DIAGNOSTIC ORDERABL ES Final Result * (ABNORMAL) Blood Gases, Arterial w/ O2 Saturation (02/08/2024 2:58 AM ENTERPRISE APPLICATIONS MANAGER) Only the most recent of5 resultswithin the time period is included. O2 STATUS 100% nonrebreather mask 02/08/2024 3:02 AM ENTERPRISE APPLICATIONS MANAGER [facility] PH ARTERIAL 7.38 7.35 - 7.45 02/08/2024 3:02 AM ENTERPRISE APPLICATIONS MANAGER [facility] PC02 (ARTERIAL) 55(H) 35 - 45 mmHg 02/08/2024 3:02 AM ENTERPRISE APPLICATIONS MANAGER [facility] PO2 (ARTERIAL) 125(H) 75 - 100 mmHg 02/08/2024 3:02 AM ENTERPRISE APPLICATIONS MANAGER [facility] O2 SAT ART, MEASURED 98 94 - 100 % 02/08/2024 3:02 AM ENTERPRISE APPLICATIONS MANAGER [facility] BASE ARTERIAL 7.3(H) -2.0 - 2.0 mmol/L 02/08/2024 3:02 AM ENTERPRISE APPLICATIONS MANAGER [facility] BICARBONATE 33.1(H) 22.0 - 26.0 mmol/L 02/08/2024 3:02 AM ENTERPRISE APPLICATIONS MANAGER [facility] WANDA'S TEST RESULTS Non-Radial Site 02/08/2024 3:02 AM ENTERPRISE APPLICATIONS MANAGER [facility] CARBOXYHEMOGLOBIN 2.6 0.0 - 5.0 % 02/08/2024 3:02 AM [facility] METHEMOGLOBIN 0.4 0.0 - 1.5 % 02/08/2024 3:02 AM ENTERPRISE APPLICATIONS MANAGER [facility] ART Blood Gas Arterial Punctur e / Unknown 02/08/2024 2:58 AM ENTERPRISE APPLICATIONS MANAGER 02/08/2024 2:58 AM ENTERPRISE APPLICATIONS MANAGER Arelis Sellers AGENT, LAST MARKER CHEMISTRY ORDERABLES Fi nal Result [facility] [address] [place] [address] * XR SMALL BOWEL FOLLOW THROUGH (02/07/2024 2:33 PM ENTERPRISE APPLICATIONS MANAGER) Anatomical Region Laterality Modality GI, Abdomen N/A Digital Radiogra phy 02/07/2024 3:56 PM ENTERPRISE APPLICATIONS MANAGER Impressions 02/07/2024 3:58 PM ENTERPRISE APPLICATIONS MANAGER IMPRESSION: ?? Normal small bowel follow through exam. ??No evidence of bowel obstruction Narrative 02/07/2024 3:58 PM ENTERPRISE APPLICATIONS MANAGER EXAM DESCRIPTION: ?? XR SMALL BOWEL FOLLOW THROUGH REASON FOR STUDY: ?? Admitted 01/27/24 due to cardiac arrest. XR KUB and CT Abdomen/Pelvis on 02/06/24 suggest partial or developing small bowel obstruction. Pt had modified barium swallow on 02/05/24. ?? COMPARISON: ?? Abdominal radiographs 02/06/2024 PROCEDURE: Initial loan services professional image of abdomen acquired, followed by administration of ?? 80 mL ??oral contrast. ??Serial radiographic images acquired. ??Fluoroscopic images recorded of the terminal ileum and other indicated areas. ??Compression spot images obtained where possible. ?? FINDINGS: OFFICE CLEANER KUB: ?? Residual contrast from prior study opacifies the large bowel. ??Non-obstructive bowel pattern. ??No abnormal calcifications. ??Soft tissue planes normal. STOMACH: ?? Normal distention without abnormality. DUODENUM: ?? Normal mucosal pattern with adequate distention. ??No displacement or obstruction. JEJUNUM: ?? Normal mucosal pattern. ??No dilatation, segmentation, strictures or masses. ILEUM: ?? Normal mucosal pattern. ??No dilatation, segmentation, strictures or masses. TERMINAL ILEUM AND ILEO-CECAL VALVE: ?? Normal mucosal pattern without cobble-stoning or stricture. PROXIMAL COLON: ?? Incompletely imaged. ??No abnormality. OTHER: ?? No other significant finding. THIS IS AN ELECTRONICALLY VERIFIED FINAL REPORT 02/07/2024 3:56 PM - Electronically signed by ??Gale Beltran M.D. FT: FT D: ??02/07/2024 3:56 PM T: ??02/07/2024 3:56 PM Report ID: [id number] Reading Location: ??[id number] Procedure Note Gale Velez MD - 02/07/2024 EXAM DESCRIPTION: XR SMALL BOWEL FOLLOW THROUGH REASON FOR STUDY: Admitted 01/27/24 due to cardiac arrest. XR KUB and CT Abdomen/Pelvis on 02/06/24 suggest partial or developing small bowel obstruction. Pt had modified barium swallow on 02/05/24. COMPARISON: Abdominal radiographs 02/06/2024 PROCEDURE: Initial loan services professional image of abdomen acquired, followed by administration of 80 mL oral contrast. Serial radiographic images acquired. Fluoroscopic images recorded of the terminal ileum and other indicated areas. Compression spot images obtained where possible. FINDINGS: OFFICE CLEANER KUB: Residual contrast from prior study opacifies the large bowel. Non-obstructive bowel pattern. No abnormal calcifications. Soft tissue planes normal. STOMACH: Normal distention without abnormality. DUODENUM: Normal mucosal pattern with adequate distention. No displacement or obstruction. JEJUNUM: Normal mucosal pattern. No dilatation, segmentation, strictures or masses. ILEUM: Normal mucosal pattern. No dilatation, segmentation, strictures or masses. TERMINAL ILEUM AND ILEO-CECAL VALVE: Normal mucosal pattern without cobble-stoning or stricture. PROXIMAL COLON: Incompletely imaged. No abnormality. OTHER: No other significant finding. THIS IS AN ELECTRONICALLY VERIFIED FINAL REPORT 02/07/2024 3:56 PM - Electronically signed by Gale Beltran M.D. FT: FT Report ID: [id number] Reading Location: [id number] IMPRESSION: Normal small bowel follow through exam. No evidence of bowel obstruction Gagan Chao MD IMAnne Marie FLUOROSCOPY ORDERABLES Fi nal Result * XR ABDOMEN KUB FLAT PLATE (02/07/2024 11:42 AM ENTERPRISE APPLICATIONS MANAGER) Only the most recent of3 resultswithin the time period is included. Anatomical Region Laterality Modality Abdomen N/A Digital Radiogra phy 02/07/2024 11:5 6 AM ENTERPRISE APPLICATIONS MANAGER Impressions 02/07/2024 11:58 AM ENTERPRISE APPLICATIONS MANAGER IMPRESSION: Nasogastric tube tip and side hole project over the gastric fundus. Bilateral lower lobe pneumonia and small pleural effusions. Narrative 02/07/2024 11:58 AM ENTERPRISE APPLICATIONS MANAGER EXAM DESCRIPTION: ?? XR ABDOMEN KUB FLAT PLATE REASON FOR STUDY: ?? NG tube placement verification ?? TECHNIQUE: 1 ??radiographic view of the abdomen. COMPARISON: ?? Small-bowel follow-through examination loan services professional image from the same day. ??CT from 02/06/2024. FINDINGS: Bilateral lower lobe pneumonic consolidation and bilateral small pleural effusions are present. ??A nasogastric tube tip and side hole project over the gastric fundus. ??No acute osseous findings. ??Incompletely evaluated bowel-gas pattern. ??Stool is present in the colon. THIS IS AN ELECTRONICALLY VERIFIED FINAL REPORT 02/07/2024 11:56 AM - Electronically signed by ??Maxi Long M.D. MZ: MAHIN D: ??02/07/2024 11:56 AM T: ??02/07/2024 11:56 AM Report ID: [id number] Reading Location: ??[id number] Procedure Note Maxi Long MD - 02/07/2024 EXAM DESCRIPTION: XR ABDOMEN KUB FLAT PLATE REASON FOR STUDY: NG tube placement verification TECHNIQUE: 1 radiographic view of the abdomen. COMPARISON: Small-bowel follow-through examination loan services professional image from the same day. CT from 02/06/2024. FINDINGS: Bilateral lower lobe pneumonic consolidation and bilateral small pleural effusions are present. A nasogastric tube tip and side hole project over the gastric fundus. No acute osseous findings. Incompletely evaluated bowel-gas pattern. Stool is present in the colon. THIS IS AN ELECTRONICALLY VERIFIED FINAL REPORT 02/07/2024 11:56 AM - Electronically signed by Maxi Long M.D. MZ: MAHIN Report ID: [id number] Reading Location: [id number] IMPRESSION: Nasogastric tube tip and side hole project over the gastric fundus. Bilateral lower lobe pneumonia and small pleural effusions. Gagan Chao MD IMG DIAGNOSTIC ORDERABLES Fin al Result * Lactic Acid (Lactate) (02/07/2024 8:02 AM ENTERPRISE APPLICATIONS MANAGER) Only the most recent of5 resultswithin the time period is included. LACTIC ACID 0.7 0.7 - 2.0 mmol/L 02/07/2024 8:51 AM ENTERPRISE APPLICATIONS MANAGER [facility] Blood Venipuncture / Unknown 02/07/2024 8:02 AM ENTERPRISE APPLICATIONS MANAGER 02/07/2024 8:14 AM ENTERPRISE APPLICATIONS MANAGER Gagan Chao MD CHEMISTRY ORDERABLES Final Re sult [facility] [place] [address] * CT ABDOMEN PELVIS W/ CONTRAST (02/06/2024 7:34 PM ENTERPRISE APPLICATIONS MANAGER) Anatomical Region Laterality Modality Abdomen N/A Computed Tomogra phy 02/06/2024 8:22 PM ENTERPRISE APPLICATIONS MANAGER Impressions 02/06/2024 8:24 PM ENTERPRISE APPLICATIONS MANAGER IMPRESSION: Marked stool debris throughout the entire colon with some gas distention of sigmoid colon. ??Findings suggest stool impaction. ?? [id number] distention of small bowel loops in the pelvis with some additional decompressed small bowel distally. ??This finding raises suspicion for partial or developing small bowel obstruction however a transition point is difficult to localize. ??No bowel wall thickening or inflammatory change is identified however would suggest correlation with small-bowel follow-through based upon clinical assessment. Increasing bilateral pleural effusions with bibasilar infiltrates and atelectasis in keeping with worsening lower lobe pneumonias. ?? Can not exclude superimposed fluid overload-CHF.. ??Please correlate with clinical factors. Blankenship catheter in the bladder. Narrative 02/06/2024 8:24 PM ENTERPRISE APPLICATIONS MANAGER EXAM DESCRIPTION: ?? CT ABDOMEN PELVIS W/ CONTRAST REASON FOR STUDY: ?? Admitted 01/27/24 for cardiac arrest. XR KUB on 02/06/24 suggested possible SBO. Hx of HTN, DM ?? TECHNIQUE: CT scan of the abdomen and pelvis performed with intravenous and ??without ??oral contrast using helical scanning technique with dynamic intravenous contrast injection. Reconstructed coronal and sagittal MPR images reviewed. All images stored on PACS. Automated exposure control was used as a dose optimization technique for this examination. CONTRAST TYPE/DOSE: ?? 76mL of IOPAMIDOL 76 % IV SOLN ??injected via ?? Intravenous COMPARISON: ?? CT abdomen pelvis comparison from 01/25/2024. FINDINGS: LOWER CHEST: ?? Increasing bilateral pleural effusions with bilateral lower lobe atelectasis with air bronchograms and infiltrate in keeping with bibasilar pneumonias. ??Pulmonary emphysema. ??Interstitial infiltrates bilaterally. ??Findings could indicate congestion and or bilateral pneumonias. ??Findings are increased. LIVER: ?? Normal size. ??No identified cystic or solid masses. GALLBLADDER: ?? Somewhat contracted. ??No stones. BILE DUCTS: ?? No intrahepatic or extrahepatic ductal dilatation. SPLEEN: ?? Normal size. ??No focal lesions. PANCREAS: ?? No identified cystic or solid masses. No significant calcifications. No adjacent inflammation or peripancreatic fluid collections. Pancreatic duct not dilated. ?? ADRENALS: ?? Normal. KIDNEYS/URINARY TRACT: ?? No identified significant cystic or solid masses. No visualized stones. No hydronephrosis or hydroureter. Symmetric enhancement. ?Blankenship catheter within the bladder. ?? Bladder is partly decompressed. GI: ?? There is marked stool debris throughout the entire colon with some gas distention of sigmoid colon. ??There is fluid distention of small bowel loops in the pelvis with a transition point which is difficult to localize. ??Findings could indicate small bowel obstruction although the transition point is difficult to localize. PERITONEUM: ?? Small fat containing umbilical hernia. ??No ascites or free air. RETROPERITONEUM: ?? No mass or adenopathy. REPRODUCTIVE: ?? No significant abnormality. VASCULATURE: ?? No abdominal aortic aneurysm. MUSCULOSKELETAL: ?? No significant abnormality. OTHER: ?? No other abnormality. THIS IS AN ELECTRONICALLY VERIFIED FINAL REPORT 02/06/2024 8:22 PM - Electronically signed by ??Sara Hardy M.D. LC: SURESH D: ??02/06/2024 8:22 PM T: ??02/06/2024 8:22 PM Report ID: [id number] Reading Location: ??[id number] Procedure Note Jeanne Hardy MD - 02/06/2024 EXAM DESCRIPTION: CT ABDOMEN PELVIS W/ CONTRAST REASON FOR STUDY: Admitted 01/27/24 for cardiac arrest. XR KUB on 02/06/24 suggested possible SBO. Hx of HTN, DM TECHNIQUE: CT scan of the abdomen and pelvis performed with intravenous and without oral contrast using helical scanning technique with dynamic intravenous contrast injection. Reconstructed coronal and sagittal MPR images reviewed. All images stored on PACS. Automated exposure control was used as a dose optimization technique for this examination. CONTRAST TYPE/DOSE: 76mL of IOPAMIDOL 76 % IV SOLN injected via Intravenous COMPARISON: CT abdomen pelvis comparison from 01/25/2024. FINDINGS: LOWER CHEST: Increasing bilateral pleural effusions with bilateral lower lobe atelectasis with air bronchograms and infiltrate in keeping with bibasilar pneumonias. Pulmonary emphysema. Interstitial infiltrates bilaterally. Findings could indicate congestion and or bilateral pneumonias. Findings are increased. LIVER: Normal size. No identified cystic or solid masses. GALLBLADDER: Somewhat contracted. No stones. BILE DUCTS: No intrahepatic or extrahepatic ductal dilatation. SPLEEN: Normal size. No focal lesions. PANCREAS: No identified cystic or solid masses. No significant calcifications. No adjacent inflammation or peripancreatic fluid collections. Pancreatic duct not dilated. ADRENALS: Normal. KIDNEYS/URINARY TRACT: No identified significant cystic or solid masses. No visualized stones. No hydronephrosis or hydroureter. Symmetric enhancement. Blankenship catheter within the bladder. Bladder is partly decompressed. GI: There is marked stool debris throughout the entire colon with some gas distention of sigmoid colon. There is fluid distention of small bowel loops in the pelvis with a transition point which is difficult to localize. Findings could indicate small bowel obstruction although the transition point is difficult to localize. PERITONEUM: Small fat containing umbilical hernia. No ascites or free air. RETROPERITONEUM: No mass or adenopathy. REPRODUCTIVE: No significant abnormality. VASCULATURE: No abdominal aortic aneurysm. MUSCULOSKELETAL: No significant abnormality. OTHER: No other abnormality. THIS IS AN ELECTRONICALLY VERIFIED FINAL REPORT 02/06/2024 8:22 PM - Electronically signed by Sara Hardy M.D. LC: SURESH Report ID: [id number] Reading Location: [id number] IMPRESSION: Marked stool debris throughout the entire colon with some gas distention of sigmoid colon. Findings suggest stool impaction. Gqoy-[id number] distention of small bowel loops in the pelvis with some additional decompressed small bowel distally. This finding raises suspicion for partial or developing small bowel obstruction however a transition point is difficult to localize. No bowel wall thickening or inflammatory change is identified however would suggest correlation with small-bowel follow-through based upon clinical assessment. Increasing bilateral pleural effusions with bibasilar infiltrates and atelectasis in keeping with worsening lower lobe pneumonias. Can not exclude superimposed fluid overload-CHF.. Please correlate with clinical factors. Blankenship catheter in the bladder. us Gagan Chao MD IMG CT ORDERABLES Final Resul t * ANNE-MARIE MELVIN BHATT HEPARIN/SST TOP TUBE (02/06/2024 1:40 PM ENTERPRISE APPLICATIONS MANAGER) Blood No Phlebotomy Charged / Unknown 02/06/2024 1:40 PM ENTERPRISE APPLICATIONS MANAGER 02/06/2024 1:45 PM ENTERPRISE APPLICATIONS MANAGER Gagan Chao MD HEMATOLOGY ORDERABLES Final R esult Performing Organization Address [facility] de Phone Number [facility] [place] [address] * Gold Top Tube (02/06/2024 1:40 PM ENTERPRISE APPLICATIONS MANAGER) Blood No Phlebotomy Charged / Unknown 02/06/2024 1:40 PM ENTERPRISE APPLICATIONS MANAGER 02/06/2024 1:45 PM ENTERPRISE APPLICATIONS MANAGER us Gagan Chao MD CHEMISTRY ORDERABLES Final Re sult Performing Organization Address [facility] de Phone Number [facility] [place] [address] * Blue Top Tube (02/06/2024 1:40 PM ENTERPRISE APPLICATIONS MANAGER) Blood No Phlebotomy Charged / Unknown 02/06/2024 1:40 PM ENTERPRISE APPLICATIONS MANAGER 02/06/2024 1:45 PM ENTERPRISE APPLICATIONS MANAGER us Gagan Chao MD HEMATOLOGY ORDERABLES Final R esult Performing Organization Address [facility] de Phone Number [facility] [place] [address] * XR SWALLOWING FUNCTION STUDY WITH VIDEO/CINE (02/05/2024 10:40 AM ENTERPRISE APPLICATIONS MANAGER) Anatomical Region Laterality Modality GI, Abdomen N/A Digital Radiogra phy 02/05/2024 11:0 6 AM ENTERPRISE APPLICATIONS MANAGER Impressions 02/05/2024 11:08 AM ENTERPRISE APPLICATIONS MANAGER IMPRESSION: ?? Aspiration, as detailed above. Please correlate with Speech Pathology report. Narrative 02/05/2024 11:08 AM ENTERPRISE APPLICATIONS MANAGER EXAM DESCRIPTION: ?? XR SWALLOWING FUNCTION STUDY WITH VIDEO/CINE REASON FOR STUDY: ?? dysphagia with O2 desat- dysphagia with liquids worsening x 5 years-dysphagia/aspiratoin with oxygen de saturation 01/25/2024 ?? RADIATION DOSE: ??The utilized fluoroscopic equipment does not provide radiation exposure indices. ??The exposure time is 1.4 and the number of fluorographic images are 7 ?? TECHNIQUE: Fluoroscopic assistance provided to Speech Pathology Department who performed the exam. The patient was brought into the fluoro room and placed upright on a modified barium swallow chair. ??The patient was then given multiple consistencies mixed with barium to swallow under live fluoroscopic video guidance. COMPARISON: ?? None available FINDINGS: ?? There is penetration and aspiration of thin liquids, which was ejected with throat clearing. ??There is global weakness with swallowing.. ??There is also aspiration of vallecular residuals on attempts at subsequent consistencies. THIS IS AN ELECTRONICALLY VERIFIED FINAL REPORT 02/05/2024 11:06 AM - Electronically signed by ??Maxi Long M.D. MZ: MAHIN D: ??02/05/2024 11:06 AM T: ??02/05/2024 11:06 AM Report ID: [id number] Reading Location: ??[id number] Procedure Note Maxi Long MD - 02/05/2024 EXAM DESCRIPTION: XR SWALLOWING FUNCTION STUDY WITH VIDEO/CINE REASON FOR STUDY: dysphagia with O2 desat- dysphagia with liquids worsening x 5 years-dysphagia/aspiratoin with oxygen de saturation 01/25/2024 RADIATION DOSE: The utilized fluoroscopic equipment does not provide radiation exposure indices. The exposure time is 1.4 and the number of fluorographic images are 7 TECHNIQUE: Fluoroscopic assistance provided to Speech Pathology Department who performed the exam. The patient was brought into the fluoro room and placed upright on a modified barium swallow chair. The patient was then given multiple consistencies mixed with barium to swallow under live fluoroscopic video guidance. COMPARISON: None available FINDINGS: There is penetration and aspiration of thin liquids, which was ejected with throat clearing. There is global weakness with swallowing.. There is also aspiration of vallecular residuals on attempts at subsequent consistencies. THIS IS AN ELECTRONICALLY VERIFIED FINAL REPORT 02/05/2024 11:06 AM - Electronically signed by Maxi Long M.D. MZ: MZ Report ID: [id number] Reading Location: [id number] IMPRESSION: Aspiration, as detailed above. Please correlate with Speech Pathology report. us Ector Carroll MD IMG FLUOROSCOPY ORDERABLES Fin al Result * (ABNORMAL) POCT Glucose (02/05/2024 8:55 AM ENTERPRISE APPLICATIONS MANAGER) Only the most recent of41 resultswithin the time period is included. GLUCOSE,BEDSID E POCT 131(H) 70 - 99 mg/dL 02/05/2024 9:01 AM ENTERPRISE APPLICATIONS MANAGER [facility] Comment:Patient RN Performed Blood 02/05/2024 8:55 AM ENTERPRISE APPLICATIONS MANAGER 02/05/2024 9:01 AM ENTERPRISE APPLICATIONS MANAGER us None Provider POINT OF CARE TESTING Final Resu lt Performing Organization Address City/[facility]/ZIP Co de Phone Number [facility] [place] [address] * PHOSPHORUS (PO4) (01/30/2024 9:17 AM ENTERPRISE APPLICATIONS MANAGER) Only the most recent of2 resultswithin the time period is included. PHOSPHORUS 3.2 2.5 - 4.5 mg/dL 01/30/2024 9:46 AM ENTERPRISE APPLICATIONS MANAGER [facility] Blood Venipuncture / Unknown 01/30/2024 9:17 AM ENTERPRISE APPLICATIONS MANAGER 01/30/2024 9:19 AM ENTERPRISE APPLICATIONS MANAGER us Gagan Chao MD CHEMISTRY ORDERABLES Final Re sult Performing Organization Address City/[facility]/ZIP Co de Phone Number [facility] [place] [address] * MAGNESIUM (MG) (01/30/2024 9:17 AM ENTERPRISE APPLICATIONS MANAGER) Only the most recent of5 resultswithin the time period is included. MAGNESIUM 2.0 1.6 - 2.6 mg/dL 01/30/2024 9:46 AM ENTERPRISE APPLICATIONS MANAGER [facility] Blood Venipuncture / Unknown 01/30/2024 9:17 AM ENTERPRISE APPLICATIONS MANAGER 01/30/2024 9:19 AM ENTERPRISE APPLICATIONS MANAGER us Gagan Chao MD CHEMISTRY ORDERABLES Final Re sult [facility] [place] [address] * (ABNORMAL) Renal Function Panel (RFP) (01/30/2024 4:22 AM ENTERPRISE APPLICATIONS MANAGER) Only the most recent of3 resultswithin the time period is included. SODIUM 141 136 - 145 mmol/L 01/30/2024 5:46 AM ENTERPRISE APPLICATIONS MANAGER [facility] POTASSIUM 6.0(H) 3.5 - 5.1 mmol/L 01/30/2024 5:46 AM [facility] Comment: Specimen is hemolyzed. In vitro hemolysis could affect results. Clinical correlation advised. CHLORIDE 104 98 - 107 mmol/L 01/30/2024 5:46 AM ENTERPRISE APPLICATIONS MANAGER [facility] CO2, VENOUS 31(H) 22 - 30 mmol/L 01/30/2024 5:46 AM ENTERPRISE APPLICATIONS MANAGER [facility] ANION GAP 12.0 <18.0 mmol/L 01/30/2024 5:46 AM ENTERPRISE APPLICATIONS MANAGER [facility] GLUCOSE 116(H) 70 - 99 mg/dL 01/30/2024 5:46 AM [facility] BUN 26 8 - 26 mg/dL 01/30/2024 5:46 AM [facility] CREATININE, BLOOD 0.78 0.70 - 1.30 mg/dL 01/30/2024 5:46 AM [facility] BUN/CREATININE RATIO 33(H) 12 - 20 ratio 01/30/2024 5:46 AM ENTERPRISE APPLICATIONS MANAGER [facility] ALBUMIN 2.9(L) 3.5 - 5.0 g/dL 01/30/2024 5:46 AM ENTERPRISE APPLICATIONS MANAGER [facility] CALCIUM 9.7 8.7 - 10.5 mg/dL 01/30/2024 5:46 AM ENTERPRISE APPLICATIONS MANAGER [facility] PHOSPHORUS 3.3 2.5 - 4.5 mg/dL 01/30/2024 5:46 AM ENTERPRISE APPLICATIONS MANAGER [facility] Comment: Specimen is hemolyzed. In vitro hemolysis could affect results. Clinical correlation advised. GFR, ESTIMATED >60 >=60 01/30/2024 5:46 AM ENTERPRISE APPLICATIONS MANAGER [facility] Comment: Creatinine Clearance is the preferred criteria for selecting drug dose adjustments in renally impaired patients. ??The GFR is provided as additional pertinent clinical information. GFR is reported in mL/min/1.73 sq m. Calculation based on the Chronic Kidney Disease Epidemiology Collaboration (CKD- EPI) equation refit without adjustment for race. GFR, EST. >60 >=60 024 5:46 AM ENTERPRISE APPLICATIONS MANAGER [facility] GFR, EST. NONAFRICAN >60 >=60 01/30/2024 5:46 AM ENTERPRISE APPLICATIONS MANAGER [facility] Blood Venipuncture / Unknown 01/30/2024 4:22 AM ENTERPRISE APPLICATIONS MANAGER 01/30/2024 4:57 AM ENTERPRISE APPLICATIONS MANAGER Spenser Demarco MD CHEMISTRY ORDERABLES Final Result [facility] [place] [address] * (ABNORMAL) Hepatic Function Panel (01/28/2024 4:13 AM ENTERPRISE APPLICATIONS MANAGER) Only the most recent of2 resultswithin the time period is included. T BILI 0.5 0.2 - 1.2 mg/dL 01/28/2024 5:10 AM ENTERPRISE APPLICATIONS MANAGER [facility] BILIRUBIN,DIRECT 0.3 0.0 - 0.5 mg/dL 01/28/2024 5:10 AM ENTERPRISE APPLICATIONS MANAGER [facility] ALKALINE PHOSPHATASE 59 40 - 150 U/L 01/28/2024 5:10 AM ENTERPRISE APPLICATIONS MANAGER [facility] SGOT (AST) 13 5 - 34 U/L 01/28/2024 5:10 AM ENTERPRISE APPLICATIONS MANAGER [facility] SGPT (ALT) 10 0 - 55 U/L 01/28/2024 5:10 AM ENTERPRISE APPLICATIONS MANAGER [facility] TOTAL PROTEIN 6.5 6.3 - 8.2 g/dL 01/28/2024 5:10 AM ENTERPRISE APPLICATIONS MANAGER [facility] ALBUMIN 3.0(L) 3.5 - 5.0 g/dL 01/28/2024 5:10 AM ENTERPRISE APPLICATIONS MANAGER [facility] Blood Venipuncture / Unknown 01/28/2024 4:13 AM ENTERPRISE APPLICATIONS MANAGER 01/28/2024 4:45 AM ENTERPRISE APPLICATIONS MANAGER Spenser Demarco MD CHEMISTRY ORDERABLES Final Result [facility] [place] [address] * AMMONIA (01/28/2024 4:13 AM ENTERPRISE APPLICATIONS MANAGER) AMMONIA 41 18 - 72 umol/L 01/28/2024 5:01 AM [facility] Blood Venipuncture / Unknown 01/28/2024 4:13 AM ENTERPRISE APPLICATIONS MANAGER 01/28/2024 4:44 AM ENTERPRISE APPLICATIONS MANAGER Spenser Demarco MD CHEMISTRY ORDERABLES Final Result [facility] [place] [address] * EEG (01/27/2024 10:30 AM ENTERPRISE APPLICATIONS MANAGER) Narrative Perez Nelson MD - 01/27/2024 10:30 AM ENTERPRISE APPLICATIONS MANAGER Perez Nelson MD ? 01/28/2024 10:25 PM Electroencephalography Date of EE01/27/24 Clinical History: The patient is a 78 year old male with cardiac arrest. ?? Suspicious for seizure. EEG Description: This EEG was recorded on a [place] with 18 cranial leads and an EKG. ??The International 10-20 system was used for electrode placement. Background: The recording was done during an obtunded state. ??There was moderate diffuse generalized slowing in the theta range, with a posterior dominant rhythm of 6 - 7 hz. Sleep: No sleep architecture noted. Activation Procedures: Photic stimulation and hyperventilation were not performed. Epileptic Discharges: No epileptic discharges noted. Interpretation: This is a abnormal EEG with diffuse generalized slowing consistent with a moderate encephalopathy. ??No epileptic discharges were seen. ??Clinical correlation is recommended. Spenser Demarco MD NEUROLOGY ORDERABLES Final Result * TYPE & SCREEN (CROSSMATCH CONVERTIBLE) (01/27/2024 9:49 AM ENTERPRISE APPLICATIONS MANAGER) Only the most recent of2 resultswithin the time period is included. Pathologist [facility] ABO TYPING O 01/27/2024 11:25 AM ENTERPRISE APPLICATIONS MANAGER [facility] BLOOD BANK RH Positive 01/27/2024 11:25 AM ENTERPRISE APPLICATIONS MANAGER [facility] BLOOD BANK ABSC Negative 01/27/2024 11:25 AM ENTERPRISE APPLICATIONS MANAGER [facility] BLOOD BANK Blood Venipuncture / Unknown 01/27/2024 9:49 AM ENTERPRISE APPLICATIONS MANAGER 01/27/2024 10:06 AM ENTERPRISE APPLICATIONS MANAGER Gagan Chao MD BLOOD BANK ORDERABLES Edited Result - Final [facility] BLOOD [facility] [place] [address] * (ABNORMAL) Hemoglobin & Hematrocrit (H&H) (01/27/2024 9:49 AM ENTERPRISE APPLICATIONS MANAGER) HEMOGLOBIN (HGB) 8.6(L) 13.0 - 16.5 g/dL 01/27/2024 10:08 AM ENTERPRISE APPLICATIONS MANAGER [facility] HEMATOCRIT (HCT) 27.1(L) 38.0 - 50.0 % 01/27/2024 10:08 AM ENTERPRISE APPLICATIONS MANAGER [facility] Blood Venipuncture / Unknown 01/27/2024 9:49 AM ENTERPRISE APPLICATIONS MANAGER 01/27/2024 10:06 AM ENTERPRISE APPLICATIONS MANAGER us Gagan Chao MD HEMATOLOGY ORDERABLES Final R esult [facility] [place] [address] * ADULT TRANS THORACIC ECHO 2D COMPLT W CONT (01/26/2024 7:53 AM ENTERPRISE APPLICATIONS MANAGER) AV Peak Grad mmHg 41.22 mmHg RESULTING AGENCY Mean Aortic Valve Gradient (MAVG) 25 mmHg RESULTING AGENCY LV end cristina diam cm 3.2 cm RESULTING AGENCY LV end sys diam cm 2.5 cm RESULTING AGENCY Aortic Root Diam cm 2.9 cm RESULTING AGENCY LA vol index ml/m2 32 ml/m2 RESULTING AGENCY LVOT Peak Abrahan m/sec 0.85 m/sec RESULTING AGENCY AV Peak Abrahan m/sec 3.21 m/sec RESULTING AGENCY MV Mean Grad mmHg 5 mmHg RESULTING AGENCY MVA by PHT cm2 1.83 cm2 RESUL TING AGENCY E/A Ratio 1.64 RESULTING AGENCY TR Abrahan m/sec 3.18 m/sec RESULTI NG AGENCY E/E' 31.1 RESULTING AGENCY AV Area (VTI) cm2 0.74 cm2 RESULTING AGENCY SEPTUM DIASTOLIC CM 1 cm RESULTING AGENCY PW DIASTOLIC CM 1.3 cm RESU LTING AGENCY LA VOLUME 59.9 ml RESULTING AGENCY Anatomical Region Laterality Modality CARDIO N/A Ultrasound Narrative 01/26/2024 2:41 PM ENTERPRISE APPLICATIONS MANAGER Transthoracic Echocardiography Report (TTE) Patient name ? DEMETRICE Bryson ? 1945 Patient ID (I) ? [id number] ? Indications: Cardiac arrest, COPD, Atrial fibrillation, Aortic stenosis, Mitral stenosis, Congestive heart failure, diastolic dysfunction, Coronary artery disease and Pulmonary hypertension. Study Date01/26/2024 Technical quality: Poor visualization Limitation Reason: COPD/Emphysema Type of Study: TTE procedure: Adult Trans Thoracic Echo 2D Complete. Priority:STATHR: 91 bpmBP: 108/61 mmHg Contrast Medium: Lumason. Amount - 3 ml Conclusions Summary The left ventricle is normal in size. Mild concentric left ventricular hypertrophy is present. LV function is normal. There are no regional wall motion abnormalities. LV EF of 60-65% Grade III diastolic dysfunction/restrictive filling pattern. Left atrium is mildly dilated. Severe mitral annular calcification is present. Mild to moderate mitral stenosis. Mild mitral regurgitation is present. The aortic valve is trileaflet with normal leaflet excursion. Aortic valve appears to be trileaflet, with thickened and restricted opening of the leaflets. Moderate to severe aortic stenosis. peak velocity 3.6 m/sec, peak and mean gradients of 30 mm of Hg, calculated aortic valve area 0.8 cm2, dimensionless index 0.24. No AI. Findings Mitral Valve Severe mitral annular calcification is present. Mild to moderate mitral stenosis. Mild mitral regurgitation is present. Aortic Valve The aortic valve is trileaflet with normal leaflet excursion. Aortic valve appears to be trileaflet, with thickened and restricted opening of the leaflets. Moderate to severe aortic stenosis. peak velocity 3.6 m/sec, peak and mean gradients of 30 mm of Hg, calculated aortic valve area 0.8 cm2, dimensionless index 0.24. No AI. Tricuspid Valve The tricuspid valve is normal. There is no evidence of tricuspid stenosis. Trace tricuspid valve regurgitation. Pulmonic Valve The pulmonic valve structure appears normal. There is no evidence of pulmonic stenosis. There is no significant pulmonic valve regurgitation. Left Atrium Left atrium is mildly dilated. Left Ventricle The left ventricle is normal in size. Mild concentric left ventricular hypertrophy is present. LV function is normal. There are no regional wall motion abnormalities. LV EF of 60-65% Grade III diastolic dysfunction/restrictive filling pattern. Right Atrium The right atrium size is normal. Right Ventricle Normal right ventricular cavity size and normal systolic function. Pericardial Effusion The pericardium is normal. There is no pericardial effusion visualized. Miscellaneous Aortic root and proximal ascending aorta are normal in size. Atrial septum appears intact. IVC is normal in size and respiratory response. Valves Mitral Valve Area (PHT): 1.83 cm^2 ?Area (continuity): 1.38 cm^2 Peak E-Wave: 1.76 m/s ?Mean Velocity: 1.07 m/s Peak A-Wave: 1.07 m/s ?Mean Gradient: 5 mmHg Peak Gradient: 12.39 mmHg ?Deceleration Time: 373 msec P1/2t: 120 msec Tissue Doppler E' Velocity: 0.04 m/s ?E/E':31.1 E/A Ratio: 1.64 ?E/Lat E': 31.1 ?E/Med E':35.9 Aortic Valve Area (continuity): 0.74 cm^2 ? Mean Velocity: 2.38 m/s Area (VTI):0.74 cm^2 ? Mean Gradient: 25 mmHg Peak Velocity: 3.21 m/s ?AV VTI: 66 cm Peak Gradient: 41.22 mmHg Tricuspid Valve Peak E-Wave: 0.53 m/s Peak Gradient: 1.13 mmHg TR Velocity: 3.18 m/s TR Gradient: 40.45 mmHg Pulmonic Valve Peak Velocity: 0.85 m/s ? Mean Velocity: 0.64 m/s Peak Gradient: 2.9 mmHg ? Mean Gradient: 2 mmHg LVOT Peak Velocity: 0.85 m/s ? Mean Velocity: 0.55 m/s Peak Gradient: 3 mmHg ? Mean Gradient: 1 mmHg LVOT Diameter: 2 cm ? LVOT VTI: 15.6 cm Stroke Volume: 49 ml ?Stroke Volume Index: 25.79 ml/m^2 Structures Left Ventricle Diastolic Dimension: 3.2 cm ?Systolic Dimension: 2.5 cm Septum Diastolic: 1 cm ? Septum Systolic: 1.2 cm PW Diastolic: 1.3 cm ? PW Systolic: 1.4 cm Diastolic Length: 27.9 cm ?Systolic Length: 14.1 cm EF Calculated: 61.05% ?CI: 2.35 l/min*m^2 CO: 4.46 l/min RWT: 0.81 ?LV EDV: 83.7 ml FS: 21.88 % ?LV EDV Index: 44 m^2 LV Length: 7.88 cm ? LV ESV: 32.6 ml LVOT Diameter: 2 cm ?LV ESV Index: 17 m^2 Right Ventricle ?RVOT (PLAX) diameter:3.8 cm Tissue Doppler RV S': 11.3 TAPSE: 1.75 cm Left Atrium LA Systolic Pressure: 40.87 mmHg ? LA Area: 20.1 cm^2 ?LA Volume: 59.9 ml ?LA Index: 32ml/m^2 Great Vessels Aorta ? Ascending Aorta: 3.7 cm Aorta Root:2.9 cm ? Ascending Aorta Index:1.95 cm/m^2 Demographics Age ?78 ? Gender ? Male Race ?Height ? 70 in. ? Weight ? 159.7 lbs. ? BMI (BSA) ?22.91 kg/m^2 (1.9 ?m^2) Circuits Engineer ?Schrader Fabienne ?Room ? 3 Interpreting ? Marixa ?Referring Physician ?Tal ? Physician Procedure Note Tal Calvin MD - 01/26/2024 Transthoracic Echocardiography Report (TTE) Patient name DEMETRICE Hall 1945 Patient ID (UPI) [id number] Indications: Cardiac arrest, COPD, Atrial fibrillation, Aortic stenosis, Mitral stenosis, Congestive heart failure, diastolic dysfunction, Coronary artery disease and Pulmonary hypertension. Study Date01/26/2024 Technical quality: Poor visualization Limitation Reason: COPD/Emphysema Type of Study: TTE procedure: Adult Trans Thoracic Echo 2D Complete. Priority:STATHR: 91 bpmBP: 108/61 mmHg Contrast Medium: Lumason. Amount - 3 ml Conclusions Summary The left ventricle is normal in size. Mild concentric left ventricular hypertrophy is present. LV function is normal. There are no regional wall motion abnormalities. LV EF of 60-65% Grade III diastolic dysfunction/restrictive filling pattern. Left atrium is mildly dilated. Severe mitral annular calcification is present. Mild to moderate mitral stenosis. Mild mitral regurgitation is present. The aortic valve is trileaflet with normal leaflet excursion. Aortic valve appears to be trileaflet, with thickened and restricted opening of the leaflets. Moderate to severe aortic stenosis. peak velocity 3.6 m/sec, peak and mean gradients of 30 mm of Hg, calculated aortic valve area 0.8 cm2, dimensionless index 0.24. No AI. Findings Mitral Valve Severe mitral annular calcification is present. Mild to moderate mitral stenosis. Mild mitral regurgitation is present. Aortic Valve The aortic valve is trileaflet with normal leaflet excursion. Aortic valve appears to be trileaflet, with thickened and restricted opening of the leaflets. Moderate to severe aortic stenosis. peak velocity 3.6 m/sec, peak and mean gradients of 30 mm of Hg, calculated aortic valve area 0.8 cm2, dimensionless index 0.24. No AI. Tricuspid Valve The tricuspid valve is normal. There is no evidence of tricuspid stenosis. Trace tricuspid valve regurgitation. Pulmonic Valve The pulmonic valve structure appears normal. There is no evidence of pulmonic stenosis. There is no significant pulmonic valve regurgitation. Left Atrium Left atrium is mildly dilated. Left Ventricle The left ventricle is normal in size. Mild concentric left ventricular hypertrophy is present. LV function is normal. There are no regional wall motion abnormalities. LV EF of 60-65% Grade III diastolic dysfunction/restrictive filling pattern. Right Atrium The right atrium size is normal. Right Ventricle Normal right ventricular cavity size and normal systolic function. Pericardial Effusion The pericardium is normal. There is no pericardial effusion visualized. Miscellaneous Aortic root and proximal ascending aorta are normal in size. Atrial septum appears intact. IVC is normal in size and respiratory response. Valves Mitral Valve Area (PHT): 1.83 cm^2 Area (continuity): 1.38 cm^2 Peak E-Wave: 1.76 m/s Mean Velocity: 1.07 m/s Peak A-Wave: 1.07 m/s Mean Gradient: 5 mmHg Peak Gradient: 12.39 mmHg Deceleration Time: 373 msec P1/2t: 120 msec Tissue Doppler E' Velocity: 0.04 m/s E/E':31.1 E/A Ratio: 1.64 E/Lat E': 31.1 E/Med E':35.9 Aortic Valve Area (continuity): 0.74 cm^2 Mean Velocity: 2.38 m/s Area (VTI):0.74 cm^2 Mean Gradient: 25 mmHg Peak Velocity: 3.21 m/s AV VTI: 66 cm Peak Gradient: 41.22 mmHg Tricuspid Valve Peak E-Wave: 0.53 m/s Peak Gradient: 1.13 mmHg TR Velocity: 3.18 m/s TR Gradient: 40.45 mmHg Pulmonic Valve Peak Velocity: 0.85 m/s Mean Velocity: 0.64 m/s Peak Gradient: 2.9 mmHg Mean Gradient: 2 mmHg LVOT Peak Velocity: 0.85 m/s Mean Velocity: 0.55 m/s Peak Gradient: 3 mmHg Mean Gradient: 1 mmHg LVOT Diameter: 2 cm LVOT VTI: 15.6 cm Stroke Volume: 49 ml Stroke Volume Index: 25.79 ml/m^2 Structures Left Ventricle Diastolic Dimension: 3.2 cm Systolic Dimension: 2.5 cm Septum Diastolic: 1 cm Septum Systolic: 1.2 cm PW Diastolic: 1.3 cm PW Systolic: 1.4 cm Diastolic Length: 27.9 cm Systolic Length: 14.1 cm EF Calculated: 61.05% CI: 2.35 l/min*m^2 CO: 4.46 l/min RWT: 0.81 LV EDV: 83.7 ml FS: 21.88 % LV EDV Index: 44 m^2 LV Length: 7.88 cm LV ESV: 32.6 ml LVOT Diameter: 2 cm LV ESV Index: 17 m^2 Right Ventricle RVOT (PLAX) diameter:3.8 cm Tissue Doppler RV S': 11.3 TAPSE: 1.75 cm Left Atrium LA Systolic Pressure: 40.87 mmHg LA Area: 20.1 cm^2 LA Volume: 59.9 ml LA Index: 32ml/m^2 Great Vessels Aorta Ascending Aorta: 3.7 cm Aorta Root:2.9 cm Ascending Aorta Index:1.95 cm/m^2 Demographics Age 78 Gender Male Race Height 70 in. Weight 159.7 lbs. 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 Infection due to S. pneumoniae cannot be ruled out since the antigen present in the sample may be below the detection limit of the test. Other URINE SPECIMEN / Unknown Non-Phlebotomy Collection / Unknown 01/26/2024 6:28 AM ENTERPRISE APPLICATIONS MANAGER 01/26/2024 7:48 AM ENTERPRISE APPLICATIONS MANAGER Luzma Bermudez APRN, CNP URINE ORDERABLES Final Re sult Performing Organization Address City/[facility] Co de Phone Number [facility] [address] [place] [address], [place] * Ur Legionella Antigen (01/26/2024 6:28 AM ENTERPRISE APPLICATIONS MANAGER) [facility] LEGIONELLA URINE AG Negative Negative 01/26/2024 2:14 PM ENTERPRISE APPLICATIONS MANAGER [facility] Comment:Presumptive Negative for Legionella Pneumophila Serogroup 1 Antigen in urine, suggesting no recent or current infection. Infection due to Legionella cannot be ruled out since other serogroups and species may cause disease. Antigen may not be present in urine in early infection, and the level of antigen present in the urine may be below the detection limit of the test. Other Non-Phlebotomy Collection / Unknown 01/26/2024 6:28 AM ENTERPRISE APPLICATIONS MANAGER 01/26/2024 7:48 AM ENTERPRISE APPLICATIONS MANAGER Luzma Bermudez APRN, CNP URINE ORDERABLES Final Re sult Performing Organization Address [facility] de Phone Number [facility] [address] [place] [address], [place] * (ABNORMAL) Procalcitonin (01/26/2024 6:15 AM ENTERPRISE APPLICATIONS MANAGER) [facility] PROCALCITONIN 0.73(H) <=0.25 ng/mL 01/26/2024 7:21 AM ENTERPRISE APPLICATIONS MANAGER [facility] Blood Venipuncture / Unknown 01/26/2024 6:15 AM ENTERPRISE APPLICATIONS MANAGER 01/26/2024 6:20 AM ENTERPRISE APPLICATIONS MANAGER Luzma Bermudez APRN, CNP IMMUNOLOGY ORDERABLES Fin al Result Performing Organization Address City/[facility] Co de Phone Number [facility] [place] [address] * (ABNORMAL) Manual Differential (01/26/2024 4:28 AM ENTERPRISE APPLICATIONS MANAGER) [facility] BANDS % 16.0 % 01/26/2024 6:06 AM [facility] NEUTROPHILS % 64.0 40.0 - 68.0 % 01/26/2024 6:06 AM ENTERPRISE APPLICATIONS MANAGER [facility] LYMPHOCYTES % 11.0(L) 19.0 - 49.0 % 01/26/2024 6:06 AM [facility] MONOCYTES % 9.0 3.0 - 13.0 % 01/26/2024 6:06 AM ENTERPRISE APPLICATIONS MANAGER [facility] NEUTROPHILS ABSOLUTE 6.06 1.50 - 6.70 10(3)/[facility] 01/26/2024 6:06 AM [facility] LYMPHOCYTES ABSOLUTE 0.83(L) 0.90 - 3.30 10(3)/[facility] 01/26/2024 6:06 AM [facility] MONOCYTES ABSOLUTE 0.68 0.10 - 0.90 10(3)/[facility] 01/26/2024 6:06 AM [facility] RBC MORPHOLOGY CONSISTENT WITH INDICES Yes 01/26/2024 6:06 AM [facility] WBC MORPH STATUS Normal 01/26/20 24 6:06 AM [facility] PLATELET STATUS Normal 6:06 AM [facility] Blood BLOOD SPECIMEN / Unknown Venipuncture / Unknown 01/26/2024 4:28 AM ENTERPRISE APPLICATIONS MANAGER 01/26/2024 5:23 AM [facility] us Gagan Chao MD HEMATOLOGY ORDERABLES Final R esult [facility] [place] [address] * Triglycerides (01/26/2024 4:28 AM [facility]) TRIGLYCERIDES 60 <150 mg/dL 01/26/2024 6:26 AM [facility] Blood BLOOD SPECIMEN / Unknown Venipuncture / Unknown 01/26/2024 4:28 AM ENTERPRISE APPLICATIONS MANAGER 01/26/2024 5:23 AM ENTERPRISE APPLICATIONS MANAGER us Spenser Demarco MD CHEMISTRY ORDERABLES Final Result [facility] [place] [address] * Thyroid Stimulating Hormone (TSH) (01/26/2024 4:28 AM ENTERPRISE APPLICATIONS MANAGER) Pathologist [facility] TSH 0.485 0.300 - 5.000 mIU/L 01/26/2024 6:06 AM ENTERPRISE APPLICATIONS MANAGER [facility] Blood BLOOD SPECIMEN / Unknown Venipuncture / Unknown 01/26/2024 4:28 AM ENTERPRISE APPLICATIONS MANAGER 01/26/2024 5:23 AM ENTERPRISE APPLICATIONS MANAGER us Spenser Demarco MD CHEMISTRY ORDERABLES Final Result Performing Organization Address City/[facility]/ZIP Co de Phone Number [facility] [place] [address] * (ABNORMAL) Lipid Panel (01/26/2024 4:28 AM ENTERPRISE APPLICATIONS MANAGER) [facility] CHOLESTEROL 84 <200 mg/dL 01/26/2024 5:54 AM ENTERPRISE APPLICATIONS MANAGER [facility] TRIGLYCERIDES 66 <150 mg/dL 01/26/2024 5:54 AM ENTERPRISE APPLICATIONS MANAGER [facility] HDL CHOLESTEROL 34(L) >40 mg/dL 5:54 AM ENTERPRISE APPLICATIONS MANAGER [facility] LDL 37 <130 mg/dL 01/26/2024 5:54 AM ENTERPRISE APPLICATIONS MANAGER [facility] VLDL 13 10 - 50 mg/dL 01/26/2024 5:54 AM ENTERPRISE APPLICATIONS MANAGER [facility] CHOL/HDL RATIO 2.5 0.0 - 4.4 01/26/2024 5:54 AM ENTERPRISE APPLICATIONS MANAGER [facility] NON-HDL CHOLESTEROL 50 <130 mg/dL 01/26/2024 5:54 AM ENTERPRISE APPLICATIONS MANAGER [facility] Blood BLOOD SPECIMEN / Unknown Venipuncture / Unknown 01/26/2024 4:28 AM ENTERPRISE APPLICATIONS MANAGER 01/26/2024 5:23 AM ENTERPRISE APPLICATIONS MANAGER us Luzma Bermudez APRN, CNP CHEMISTRY ORDERABLES Madyson l Result [facility] [address] [place] [address] * (ABNORMAL) Creatine Kinase (CK) Total (01/26/2024 4:28 AM ENTERPRISE APPLICATIONS MANAGER) CK (CPK) 407(H) 30 - 200 U/L 01/26/2024 5:51 AM ENTERPRISE APPLICATIONS MANAGER [facility] Blood BLOOD SPECIMEN / Unknown Venipuncture / Unknown 01/26/2024 4:28 AM ENTERPRISE APPLICATIONS MANAGER 01/26/2024 5:23 AM ENTERPRISE APPLICATIONS MANAGER us Spenser Demarco MD HEMATOLOGY ORDERABLES Madyson l Result [facility] [address] [place] [address] * MRSA NASAL PCR (01/25/2024 7:29 PM ENTERPRISE APPLICATIONS MANAGER) MRSA PCR RESULT Negative Negative, Invalid 01/25/2024 9:03 PM ENTERPRISE APPLICATIONS MANAGER [facility] Other NASOPHARYNGEAL SWAB / Unknown Non-Phlebotomy Collection / Unknown 01/25/2024 7:29 PM ENTERPRISE APPLICATIONS MANAGER 01/25/2024 7:31 PM ENTERPRISE APPLICATIONS MANAGER Ta Reyes MD MICROBIOLOGY - GENERAL ORDERABLE S Final Result [facility] [address] [place] [address] * Culture, Respiratory, Lower (01/25/2024 7:12 PM ENTERPRISE APPLICATIONS MANAGER) CULTURE RESULTS PSEUDOMONAS AERUGINOSA 01/29/2024 9:52 PM ENTERPRISE APPLICATIONS MANAGER [facility] CULTURE RESULTS STREPTOCOCCUS PNEUMONIAE 01/29/2024 9:52 PM ENTERPRISE APPLICATIONS MANAGER [facility] CULTURE RESULTS Few Mixed matias 01/29/2024 9:52 PM ENTERPRISE APPLICATIONS MANAGER [facility] Comment:PROBABLE USUAL MATIAS FOR THIS SPECIMEN SOURCE Culture SPECIMEN FROM TRACHEA OBTAINED BY ASPIRATION / Unknown Non-Phlebotomy Collection / Unknown 01/25/2024 7:12 PM ENTERPRISE APPLICATIONS MANAGER 01/25/2024 11:11 PM ENTERPRISE APPLICATIONS MANAGER Narrative Organism Antibiotic Method Susceptibility Pseudomonas aeruginosa Cefepime [facility] II[facility] <=1 mcg/ml: Susceptible Pseudomonas aeruginosa Gentamicin [facility] II[facility] Resistant Pseudomonas aeruginosa Levofloxacin [facility] II[facility] 0.25 mcg/ml: Susceptible Pseudomonas aeruginosa Meropenem [facility] IIB 8 mcg/ml: Resistant Pseudomonas aeruginosa Tobramycin [facility] IIB <=1 mcg/ml: Susceptible Pseudomonas aeruginosa Piperacillin/Tazo bacta m ORTEZ SALMERON 29 mm: Susceptible Streptococcus pneumoniae Penicillin G ORTEZ SALMERON Susceptible Comment:VERIFIED BY NEELIMA SALMERON Spenser Demarco MD MICROBIOLOGY - GENERAL ORD ERABLES Final Result Performing Organization Address City/[facility] Co de Phone Number [facility] [address] [place] [address], * PTT (Partial Thromboplastin Time) - baseline (01/25/2024 3:37 PM ENTERPRISE APPLICATIONS MANAGER) Only the most recent of2 resultswithin the time period is included. PTT 28 24 - 36 sec 01/25/2024 3:59 PM ENTERPRISE APPLICATIONS MANAGER [facility] Blood Venipuncture / Unknown 01/25/2024 3:37 PM ENTERPRISE APPLICATIONS MANAGER 01/25/2024 3:39 PM ENTERPRISE APPLICATIONS MANAGER Narrative [facility] - 01/25/2024 3:59 PM ENTERPRISE APPLICATIONS MANAGER Therapeutic range for unfractionated heparin at 0.3-0.7 U/mL is an aPTT value in the range of 71-100 seconds. Critical value for the PTT test is >= 122 seconds. Ta Reyes MD HEMATOLOGY ORDERABLES Final Resu lt F [facility] [facility] [place] [address] * EKG 12 LEAD (01/25/2024 2:39 PM ENTERPRISE APPLICATIONS MANAGER) Only the most recent of2 resultswithin the time period is included. Ventricular Rate 77 BPM EXTERNAL EKG Atrial Rate 77 BPM EXTERNAL EKG P-R Interval 168 ms EXTERNAL EKG QRS Duration 150 ms EXTERNAL EKG Q-T Duration 428 ms EXTERNAL EKG QTC CALCULATION 484 ms EXTERNAL EKG P [place] 86 degrees EXTERNAL EKG R [place] 97 degrees EXTERNAL EKG T [place] 30 degrees EXTERNAL EKG 01/25/2024 2:39 PM ENTERPRISE APPLICATIONS MANAGER Impressions EXTERNAL EKG - 01/28/2024 3:01 PM ENTERPRISE APPLICATIONS MANAGER Normal sinus rhythm Right bundle branch block Abnormal ECG no change since 25 January 2024 11:44 a.m. Confirmed by Robinson Robison ([id number]) on 01/28/2024 3:01:13 PM Narrative Procedure Note Robinson Robison MD - 01/28/2024 IMPRESSION: Normal sinus rhythm Right bundle branch block Abnormal ECG no change since 25 January 2024 11:44 a.m. Confirmed by Robinson Robison ([id number]) on 01/28/2024 3:01:13 PM us Ta Reyes MD IMG ECG ORDERABLES Final Result Performing Organization Address City/State/[facility] Co de Phone Number EXTERNAL EKG * CT CHEST, ABDOMEN, PELVIS WITHOUT CONTRAST (01/25/2024 2:27 PM ENTERPRISE APPLICATIONS MANAGER) Anatomical Region Laterality Modality Chest, Abdomen, Pelvis N/A Computed Tomography 01/25/2024 3:32 PM ENTERPRISE APPLICATIONS MANAGER Impressions 01/25/2024 3:34 PM ENTERPRISE APPLICATIONS MANAGER IMPRESSION: Large amount of debris in the left mainstem bronchus extending into the other bronchi in the left lung. ?? Severe emphysema. Patchy consolidation at both lung bases, worse on the left. Pneumonia is a definite consideration. Small bilateral pleural effusions, cause unknown. Severe atherosclerosis. Narrative 01/25/2024 3:34 PM ENTERPRISE APPLICATIONS MANAGER EXAM DESCRIPTION: CT CHEST, ABDOMEN, PELVIS WITHOUT CONTRAST REASON FOR STUDY: sepsis protocol. Pt had cardiac arrest and seizure today. Hx of HTN ?? TECHNIQUE: CT scan of the chest, abdomen, and pelvis performed without intravenous and ??without ??oral contrast using helical scanning technique. Reconstructed coronal and sagittal MPR images reviewed. All images stored on PACS. ??Automated exposure control was used as a dose optimization technique for this examination. COMPARISON: None FINDINGS: The sensitivity for detection of visceral lesions is diminished without the use of intravenous contrast. CHEST LUNGS: Severe emphysema is seen. ?? No obvious suspicious nodules or masses. ??There is patchy consolidation at both lung bases, worse on the left. ??There is a large amount of debris in the left mainstem bronchus extending into the other bronchi in the left lung. PLEURA: ?? Small pleural effusions are seen. MEDIASTINUM/SILVIA: ?? Paratracheal, subaortic and subcarinal nodes range in size up to about a cm. HEART: ?? There is no pericardial effusion. CORONARY ARTERY CALCIFICATION: ??Present ?? VASCULATURE CHEST: ?? There is borderline enlargement of the ascending aorta which measures about 4 cm. AXILLA: ?? Nonspecific axillary nodes are seen. CHEST WALL: ?? No masses. ??No subcutaneous air. HARDWARE/LINES/TUBES: ?? The endotracheal tube tip is above the rolando. ??The enteric tube terminates in the fundus of the stomach. MUSCULOSKELETAL CHEST: ?? No significant abnormality. ABDOMEN/PELVIS LIVER: ?? Normal size. ??No identified cystic or solid masses. No cysts. GALLBLADDER: ?? No stones identified. No wall thickening or inflammatory changes. BILE DUCTS: ?? No intrahepatic or extrahepatic ductal dilatation. SPLEEN: ?? Normal size. ??No focal lesions. PANCREAS: ?? No identified cystic or solid masses. ??No significant calcifications. No adjacent inflammation or peripancreatic fluid collections. Pancreatic duct not dilated. ADRENALS: ?? Normal. KIDNEYS/URINARY TRACT: ?? No identified significant cystic or solid masses. No stones. No hydronephrosis or hydroureter. ?A Blankenship catheter is seen in the bladder. GI: ?? No bowel obstruction or obvious inflammatory bowel disease was seen. PERITONEUM: ?? No ascites or free air. RETROPERITONEUM: ?? No mass or adenopathy. REPRODUCTIVE: ?? No significant abnormality. VASCULATURE ABDOMEN: ?? No abdominal aortic aneurysm. ?? There is severe atherosclerosis with widespread mural calcification. MUSCULOSKELETAL ABDOMEN PELVIS: ?? No acute finding. OTHER: ?? No significant abnormality. THIS IS AN ELECTRONICALLY VERIFIED FINAL REPORT 01/25/2024 3:32 PM - Electronically signed by ??Rafa Ovalles M.D. VONNIE: VONNIE D: ??01/25/2024 3:32 PM T: ??01/25/2024 3:32 PM Report ID: [id number] Reading Location: ??[id number] Procedure Note Pa Ovalles MD - 01/25/2024 EXAM DESCRIPTION: CT CHEST, ABDOMEN, PELVIS WITHOUT CONTRAST REASON FOR STUDY: sepsis protocol. Pt had cardiac arrest and seizure today. Hx of HTN TECHNIQUE: CT scan of the chest, abdomen, and pelvis performed without intravenous and without oral contrast using helical scanning technique. Reconstructed coronal and sagittal MPR images reviewed. All images stored on PACS. Automated exposure control was used as a dose optimization technique for this examination. COMPARISON: None FINDINGS: The sensitivity for detection of visceral lesions is diminished without the use of intravenous contrast. CHEST LUNGS: Severe emphysema is seen. No obvious suspicious nodules or masses. There is patchy consolidation at both lung bases, worse on the left. There is a large amount of debris in the left mainstem bronchus extending into the other bronchi in the left lung. PLEURA: Small pleural effusions are seen. MEDIASTINUM/SILVIA: Paratracheal, subaortic and subcarinal nodes range in size up to about a cm. HEART: There is no pericardial effusion. CORONARY ARTERY CALCIFICATION: Present VASCULATURE CHEST: There is borderline enlargement of the ascending aorta which measures about 4 cm. AXILLA: Nonspecific axillary nodes are seen. CHEST WALL: No masses. No subcutaneous air. HARDWARE/LINES/TUBES: The endotracheal tube tip is above the rolando. The enteric tube terminates in the fundus of the stomach. MUSCULOSKELETAL CHEST: No significant abnormality. ABDOMEN/PELVIS LIVER: Normal size. No identified cystic or solid masses. No cysts. GALLBLADDER: No stones identified. No wall thickening or inflammatory changes. BILE DUCTS: No intrahepatic or extrahepatic ductal dilatation. SPLEEN: Normal size. No focal lesions. PANCREAS: No identified cystic or solid masses. No significant calcifications. No adjacent inflammation or peripancreatic fluid collections. Pancreatic duct not dilated. ADRENALS: Normal. KIDNEYS/URINARY TRACT: No identified significant cystic or solid masses. No stones. No hydronephrosis or hydroureter. A Balnkenship catheter is seen in the bladder. GI: No bowel obstruction or obvious inflammatory bowel disease was seen. PERITONEUM: No ascites or free air. RETROPERITONEUM: No mass or adenopathy. REPRODUCTIVE: No significant abnormality. VASCULATURE ABDOMEN: No abdominal aortic aneurysm. There is severe atherosclerosis with widespread mural calcification. MUSCULOSKELETAL ABDOMEN PELVIS: No acute finding. OTHER: No significant abnormality. THIS IS AN ELECTRONICALLY VERIFIED FINAL REPORT 01/25/2024 3:32 PM - Electronically signed by Rafa Ovalles M.D. VONNIE: VONNIE Report ID: [id number] Reading Location: [id number] IMPRESSION: Large amount of debris in the left mainstem bronchus extending into the other bronchi in the left lung. Severe emphysema. Patchy consolidation at both lung bases, worse on the left. Pneumonia is a definite consideration. Small bilateral pleural effusions, cause unknown. Severe atherosclerosis. Ta Reyes MD IM CT ORDERABLES Final Result * (ABNORMAL) Urinalysis w/ Reflex (01/25/2024 1:31 PM ENTERPRISE APPLICATIONS MANAGER) SPECIFIC GRAVITY 1.010 1.003 - 1.030 01/25/2024 1:52 PM ENTERPRISE APPLICATIONS MANAGER [facility] URINE PH 5.0 5.0 - 9.0 01/25/2024 1:52 PM ENTERPRISE APPLICATIONS MANAGER [facility] WBC ESTERASE 500 /uL(A) Negative 01/25/2024 1:52 PM ENTERPRISE APPLICATIONS MANAGER [facility] NITRITE Negative Negative 01/25/2024 1:52 PM ENTERPRISE APPLICATIONS MANAGER [facility] PROTEIN, RANDOM URINE 30 mg/dL(A) Negative 01/25/2024 1:52 PM ENTERPRISE APPLICATIONS MANAGER [facility] URINE GLUCOSE, QUAL Negative Negative 01/25/2024 1:52 PM ENTERPRISE APPLICATIONS MANAGER [facility] URINE KETONES Negative Negative 01/25/2024 1:52 PM ENTERPRISE APPLICATIONS MANAGER [facility] UROBILINOGEN Normal Normal mg/dL 01/25/2024 1:52 PM ENTERPRISE APPLICATIONS MANAGER [facility] URINE BLOOD 150 /uL(A) Negative rosalinda/ul 01/25/2024 1:52 PM ENTERPRISE APPLICATIONS MANAGER [facility] URINALYSIS COLOR Yellow 01/25/20 1:52 PM ENTERPRISE APPLICATIONS MANAGER [facility] URINALYSIS CLARITY Slightly Cloudy 01/25/2024 1:52 PM ENTERPRISE APPLICATIONS MANAGER [facility] WBC (Urine) 11-20(A) Negative, 0-5 /hpf 01/25/2024 1:52 PM ENTERPRISE APPLICATIONS MANAGER [facility] URINE RBC'S 0-2 Negative, 0-2 /hpf 01/25/2024 1:52 PM ENTERPRISE APPLICATIONS MANAGER [facility] EPITHELIAL CELLS Small amount /lpf 2023 1:52 PM ENTERPRISE APPLICATIONS MANAGER [facility] BACTERIA, URINE Few(A) Negative /hpf 01/25/2024 1:52 PM ENTERPRISE APPLICATIONS MANAGER [facility] Urine URINE SPECIMEN / Unknown Non-Phlebotomy Collection / Unknown 01/25/2024 1:31 PM ENTERPRISE APPLICATIONS MANAGER 01/25/2024 1:35 PM ENTERPRISE APPLICATIONS MANAGER us Ta Reyes MD URINE ORDERABLES Final Result [facility] [place] [address] * Culture, Urine (01/25/2024 1:31 PM ENTERPRISE APPLICATIONS MANAGER) CULTURE RESULTS SERRATIA MARCESCENS 01/27/2024 8:02 PM ENTERPRISE APPLICATIONS MANAGER [facility] CULTURE RESULTS Also mixed growth of distal urethral contaminants 01/27/2024 8:02 PM ENTERPRISE APPLICATIONS MANAGER [facility] CULTURE RESULTS ENTEROCOCCUS FAECALIS 01/27/2024 8:02 PM ENTERPRISE APPLICATIONS MANAGER [facility] Comment:SENSITIVITY NOT PERF ORMED Urine URINE SPECIMEN / Unknown Non-Phlebotomy Collection / Unknown 01/25/2024 1:31 PM ENTERPRISE APPLICATIONS MANAGER 01/25/2024 1:35 PM ENTERPRISE APPLICATIONS MANAGER Narrative [facility] - 01/27/2024 8:02 PM ENTERPRISE APPLICATIONS MANAGER Susceptibility not performed on enterococcus species. ??Due to high achievable concentrations in urine, Ampicillin is the drug of choice for treating infections limited to the lower urinary tract (regardless of Vancomycin susceptibility). ??For allergic patients, Nitrofurantoin or a quinolone may be substituted. Organism Antibiotic Method Susceptibility Serratia marcescens Cefepime [facility] VITEK IIB <=1 mcg/ml: Susceptible Serratia marcescens Ceftriaxone [facility] VITEK IIB <=1 mcg/ml: Susceptible Serratia marcescens Gentamicin [facility] VITEK IIB <=1 mcg/ml: Susceptible Serratia marcescens Levofloxacin [facility] V[facility] IIB <=0.12 mcg/ml: Susceptible Serratia marcescens Meropenem [facility] V[facility] IIB <=0.25 mcg/ml: Susceptible Serratia marcescens Nitrofurantoin [facility] VITEK IIB 256 mcg/ml: Resistant Serratia marcescens Tobramycin [facility] VITEK IIB <=1 mcg/ml: Susceptible Serratia marcescens Trimeth/Sulfamethoxazole [facility] NATE K IIB <=20 mcg/ml: Susceptible Serratia marcescens Piperacillin/Tazobactam NEELIMA Mcarthur 31 mm: Susceptible us Ta Reyes MD MICROBIOLOGY - GENERAL ORDERABLE S Final Result [facility] [address] [place] [address], * (ABNORMAL) Urine Drug Screen (01/25/2024 1:31 PM ENTERPRISE APPLICATIONS MANAGER) UR AMPHETAMINE NON DETECTED NON DETECTED 01/25/2024 1:55 PM ENTERPRISE APPLICATIONS MANAGER [facility] Comment: FOR MEDICAL USE ONLY. CUTOFF CONCENTRATION FOR DETECTED RESULT: AMPHETAMINE: ??500 NG/ML UR BENZODIAZEPINES DETECTED(A) NON DETECTED 01/25/2024 1:55 PM ENTERPRISE APPLICATIONS MANAGER [facility] Comment: FOR MEDICAL USE ONLY. CUTOFF CONCENTRATION FOR DETECTED RESULT: BENZODIAZAPINE: ??200 NG/ML UR COCAINE METABOLITE NON DETECTED NON DETECTED 01/25/2024 1:55 PM ENTERPRISE APPLICATIONS MANAGER [facility] Comment: FOR MEDICAL USE ONLY. CUTOFF CONCENTRATION FOR DETECTED RESULT: COCAINE: ??150 NG/ML UR OPIATES NON DETECTED NON DETECTED 01/25/2024 1:55 PM ENTERPRISE APPLICATIONS MANAGER [facility] Comment: FOR MEDICAL USE ONLY. CUTOFF CONCENTRATION FOR DETECTED RESULT: OPIATES: ? 300 NG/ML UR PHENCYCLIDINE NON DETECTED NON DETECTED 01/25/2024 1:55 PM ENTERPRISE APPLICATIONS MANAGER [facility] Comment: FOR MEDICAL USE ONLY. CUTOFF CONCENTRATION FOR DETECTED RESULT: PCP: ? 25 NG/ML UR CANNABINOID NON DETECTED NON DETECTED 01/25/2024 1:55 PM ENTERPRISE APPLICATIONS MANAGER [facility] Comment: FOR MEDICAL USE ONLY. CUTOFF CONCENTRATION FOR DETECTED RESULT: THC (MARIJUANA): 50 NG/ML UR BARBITURATE NON DETECTED NON DETECTED 01/25/2024 1:55 PM ENTERPRISE APPLICATIONS MANAGER [facility] Comment: FOR MEDICAL USE ONLY. CUTOFF CONCENTRATION FOR DETECTED RESULT: BARBITUATES: ? 200 NG/ML UR FENTANYL NON DETECTED NON DETECTED 01/25/2024 1:55 PM ENTERPRISE APPLICATIONS MANAGER [facility] Comment: FOR MEDICAL USE ONLY. CUTOFF CONCENTRATION FOR DETECTED RESULT: FENTANYL: ??1.0 NG/ML Urine Non-Phlebotomy Collection / Unknown 01/25/2024 1:31 PM ENTERPRISE APPLICATIONS MANAGER 01/25/2024 1:35 PM ENTERPRISE APPLICATIONS MANAGER us Ta Reyes MD URINE ORDERABLES Final Result [facility] [address] [place] [address] * Blood Culture #2 (01/25/2024 1:25 PM ENTERPRISE APPLICATIONS MANAGER) Only the most recent of2 resultswithin the time period is included. CULTURE RESULTS NO GROWTH WITHIN 5 DAYS, FINAL RESULT 01/30/2024 2:01 PM ENTERPRISE APPLICATIONS MANAGER [facility] Culture BLOOD SPECIMEN / Unknown Venipuncture / Unknown 01/25/2024 1:25 PM ENTERPRISE APPLICATIONS MANAGER 01/25/2024 1:25 PM ENTERPRISE APPLICATIONS MANAGER us Ta Reyes MD MICROBIOLOGY - GENERAL ORDERABLE S Final Result [facility] [address] [place] [address], [place] * CTA STROKE HEAD AND NECK (01/25/2024 12:40 PM ENTERPRISE APPLICATIONS MANAGER) Anatomical Region Laterality Modality vascular N/A Computed Tomogra phy 01/25/2024 1:54 PM ENTERPRISE APPLICATIONS MANAGER Impressions 01/25/2024 1:56 PM ENTERPRISE APPLICATIONS MANAGER IMPRESSION: CAROTID CTA: No carotid or vertebral stenosis. INTRACRANIAL CTA: Normal. Narrative 01/25/2024 1:56 PM ENTERPRISE APPLICATIONS MANAGER EXAM DESCRIPTION: ?? CTA STROKE HEAD AND NECK REASON FOR STUDY: ?? post cardiac arrest, seizure. Pt brought to facility for AMS, stroke-like symptoms. ?? TECHNIQUE: Post IV contrast scanning, thin section axial imaging from the great vessel origins through the brain. ?3D MIP images rendered on scanning unit and reviewed at time of interpretation. ?? Carotid stenosis measurements are based on NASCET criteria. Automated exposure control was used as a dose optimization technique for this examination. CONTRAST TYPE/DOSE: ?? 100mL of IOPAMIDOL 76 % IV SOLN ??injected via ?? Intravenous COMPARISON: ?? CT brain same day FINDINGS: Motion artifact obscures detail CAROTID AND VERTEBRAL ARTERIES: RIGHT CAROTIDS: ?? No internal, external or common carotid stenosis. LEFT CAROTIDS: ?? No internal, external or common carotid stenosis. ?? Adjacent surgical clips and subtle wall irregularity may represent post endarterectomy changes at the bifurcation. ??Please correlate clinically. RIGHT VERTEBRAL: ??Patent. No significant stenosis. No dissection. LEFT VERTEBRAL: ?? Patent. No significant stenosis. No dissection. AORTIC ARCH: ?? Normal three-vessel origin. Bilateral subclavian arteries are patent. No dissection. INCLUDED LUNGS: ?? Extensive emphysematous changes with biapical pleural thickening. ??Small to moderate right effusion. NECK SOFT TISSUE: ?? ET tube and NG tube identified partially unremarkable. ??Nonenlarged lymph nodes retrocaval pretracheal space. OTHER: ?? No other significant finding. INTRACRANIAL VESSELS: [place]AKNE[place] OF STOUT: ?? The anterior, middle, posterior cerebral arteries are all patent. ??No evidence of aneurysm or focal stenosis. POSTERIOR CIRCULATION: ?? The distal vertebral arteries are patent as is the basilar artery. No aneurysm. BRAIN: ?? No gross enhancing lesions as visualized. ?? THIS IS AN ELECTRONICALLY VERIFIED FINAL REPORT 01/25/2024 1:54 PM - Electronically signed by ??Chris Tran M.D. RB: GILES D: ??01/25/2024 1:54 PM T: ??01/25/2024 1:54 PM Report ID: [id number] Reading Location: ??[id number] Procedure Note Chris Tran MD - 01/25/2024 EXAM DESCRIPTION: CTA STROKE HEAD AND NECK REASON FOR STUDY: post cardiac arrest, seizure. Pt brought to facility for AMS, stroke-like symptoms. TECHNIQUE: Post IV contrast scanning, thin section axial imaging from the great vessel origins through the brain. 3D MIP images rendered on scanning unit and reviewed at time of interpretation. Carotid stenosis measurements are based on NASCET criteria. Automated exposure control was used as a dose optimization technique for this examination. CONTRAST TYPE/DOSE: 100mL of IOPAMIDOL 76 % IV SOLN injected via Intravenous COMPARISON: CT brain same day FINDINGS: Motion artifact obscures detail CAROTID AND VERTEBRAL ARTERIES: RIGHT CAROTIDS: No internal, external or common carotid stenosis. LEFT CAROTIDS: No internal, external or common carotid stenosis. Adjacent surgical clips and subtle wall irregularity may represent post endarterectomy changes at the bifurcation. Please correlate clinically. RIGHT VERTEBRAL: Patent. No significant stenosis. No dissection. LEFT VERTEBRAL: Patent. No significant stenosis. No dissection. AORTIC ARCH: Normal three-vessel origin. Bilateral subclavian arteries are patent. No dissection. INCLUDED LUNGS: Extensive emphysematous changes with biapical pleural thickening. Small to moderate right effusion. NECK SOFT TISSUE: ET tube and NG tube identified partially unremarkable. Nonenlarged lymph nodes retrocaval pretracheal space. OTHER: No other significant finding. INTRACRANIAL VESSELS: NAKNEK OF STOUT: The anterior, middle, posterior cerebral arteries are all patent. No evidence of aneurysm or focal stenosis. POSTERIOR CIRCULATION: The distal vertebral arteries are patent as is the basilar artery. No aneurysm. BRAIN: No gross enhancing lesions as visualized. THIS IS AN ELECTRONICALLY VERIFIED FINAL REPORT 01/25/2024 1:54 PM - Electronically signed by Chris Tran M.D. RB: GILES Report ID: [id number] Reading Location: [id number] IMPRESSION: CAROTID CTA: No carotid or vertebral stenosis. INTRACRANIAL CTA: Normal. Ta Reyes MD IM CT ORDERABLES Final Result * CT HEAD OR BRAIN WO CONTRAST (01/25/2024 12:37 PM ENTERPRISE APPLICATIONS MANAGER) Anatomical Region Laterality Modality Head N/A Computed Tomogra phy 01/25/2024 1:23 PM ENTERPRISE APPLICATIONS MANAGER Impressions 01/25/2024 1:26 PM ENTERPRISE APPLICATIONS MANAGER IMPRESSION: No acute intracranial abnormality. Narrative 01/25/2024 1:26 PM ENTERPRISE APPLICATIONS MANAGER EXAM DESCRIPTION: CT HEAD OR BRAIN WO CONTRAST REASON FOR STUDY: post cardiac arrest, seizure. Pt brought to facility for AMS, stroke-like symptoms. ?? TECHNIQUE: Multiplanar computed tomographic imaging of the brain. Automated exposure control was used as a dose optimization technique for this study. COMPARISON: Earlier the same day.. FINDINGS: No acute intracranial hemorrhage or abnormal extra-axial fluid collection. No evidence of acute large vessel territorial infarction. 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 No acute hydrocephalus. ??There is cerebral volume loss. Basilar cisterns patent. ?? Paranasal sinuses and mastoid air cells clear. ?? No depressed skull fractures. THIS IS AN ELECTRONICALLY VERIFIED FINAL REPORT 01/25/2024 1:23 PM - Electronically signed by ??Edgar Lema M.D. SN: SN D: ??01/25/2024 1:23 PM T: ??01/25/2024 1:23 PM Report ID: [id number] Reading Location: ??[id number] Procedure Note Edgar Lema MD - 01/25/2024 EXAM DESCRIPTION: CT HEAD OR BRAIN WO CONTRAST REASON FOR STUDY: post cardiac arrest, seizure. Pt brought to facility for AMS, stroke-like symptoms. TECHNIQUE: Multiplanar computed tomographic imaging of the brain. Automated exposure control was used as a dose optimization technique for this study. COMPARISON: Earlier the same day.. FINDINGS: No acute intracranial hemorrhage or abnormal extra-axial fluid collection. No evidence of acute large vessel territorial infarction. 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 No acute hydrocephalus. There is cerebral volume loss. Basilar cisterns patent. Paranasal sinuses and mastoid air cells clear. No depressed skull fractures. THIS IS AN ELECTRONICALLY VERIFIED FINAL REPORT 01/25/2024 1:23 PM - Electronically signed by Edgar Lema M.D. SN: SN Report ID: [id number] Reading Location: [id number] IMPRESSION: No acute intracranial abnormality. Ta Reyes MD IMG CT ORDERABLES Final Result * ZAINAB-COV-2 Flu RSV - (Quad PCR) (01/25/2024 12:10 PM ENTERPRISE APPLICATIONS MANAGER) FLU A Negative Negative, Error 01/25/2024 12:58 PM ENTERPRISE APPLICATIONS MANAGER [facility] FLU B Negative Negative 01/25/2024 12:58 PM ENTERPRISE APPLICATIONS MANAGER [facility] RESP SYNC VIRUS Negative Negative 12:58 PM ENTERPRISE APPLICATIONS MANAGER [facility] SARSCOV2 NOT DETECTED (Reference Range for this test is Not Detected) 01/25/2024 12:58 PM ENTERPRISE APPLICATIONS MANAGER [facility] Comment:This test was perfor med by a Reverse Tubing Mill Setter PCR Method. Swab NASOPHARYNGEAL SWAB / Unknown Non-Phlebotomy Collection / Unknown 01/25/2024 12:10 PM ENTERPRISE APPLICATIONS MANAGER 01/25/2024 12:17 PM ENTERPRISE APPLICATIONS MANAGER Narrative [facility] - 01/25/2024 12:58 PM ENTERPRISE APPLICATIONS MANAGER This test has not been FDA cleared or approved; the test has been authorized by FDA under an Emergency Use Authorization (EUA) for use by laboratories certified under the CLIA that meet the requirements to perform moderate, high or waived complexity tests. Authorized Fact Sheets about this test for providers and patients are available at: https://www.fda.gov/medical-devices/fnnexuasj-cyiwyqajih-gxcoogm-devices/emergen -us e-authorizations us Ta Reyes MD MICROBIOLOGY - GENERAL ORDERABLE S Final Result Performing Organization Address City/[facility]/ZIP Co de Phone Number [facility] [address] [place] [address] * LEVETIRACETAM (01/25/2024 12:09 PM ENTERPRISE APPLICATIONS MANAGER) LEVETIRACETAM 15.6 12 - 46 mcg/mL 01/25/2024 9:23 PM ENTERPRISE APPLICATIONS MANAGER [facility] Blood Venipuncture / Unknown 01/25/2024 12:09 PM ENTERPRISE APPLICATIONS MANAGER 01/25/2024 12:18 PM ENTERPRISE APPLICATIONS MANAGER us Ta Reyes MD LAB SEND OUTS Final Result Performing Organization Address [facility] Co de Phone Number [facility] [address] [facility] [facility] [address], * Hemoglobin A1C w/ Estimated Glucose (01/25/2024 12:01 PM ENTERPRISE APPLICATIONS MANAGER) HGB-A1C 5.6 4.0 - 6.0 % 01/25/2024 4:27 PM ENTERPRISE APPLICATIONS MANAGER [facility] Est Average Glucose 114.0 mg/dL 01/25/2024 4:27 PM ENTERPRISE APPLICATIONS MANAGER [facility] Blood Venipuncture / Unknown 01/25/2024 12:01 PM ENTERPRISE APPLICATIONS MANAGER 01/25/2024 12:01 PM ENTERPRISE APPLICATIONS MANAGER Narrative [facility] - 01/25/2024 4:27 PM ENTERPRISE APPLICATIONS MANAGER HEMOGLOBIN A1C: DIABETIC PATIENTS: WELL-CONTROLLED: ?? 6.2 - 7.0 INTERMEDIATE WELL-CONTROLLED: ??7.0 - 9.0 POORLY-CONTROLLED: ??>9.0 us Gagan Chao MD CHEMISTRY ORDERABLES Final Re sult Performing Organization Address City/[facility]/ZIP Co de Phone Number [facility] [address] [place] [address] * (ABNORMAL) PT (PROTHROMBIN TIME) (01/25/2024 12:01 PM ENTERPRISE APPLICATIONS MANAGER) PROTIME-PATIENT 15.1(H) 11.6 - 14.8 sec 01/25/2024 12:24 PM ENTERPRISE APPLICATIONS MANAGER [facility] INR 1.2 0.9 - 1.2 01/25/2024 12:24 PM ENTERPRISE APPLICATIONS MANAGER [facility] Comment: Therapeutic Ranges INR = 2.0-3.0: Venous thromb, atrial fib, pul embolism, tissue heart valve, ami. INR = 2.5-3.5: Mechanical heart valve Critical value for INR is >/= 4.5 Blood Venipuncture / Unknown 01/25/2024 12:01 PM ENTERPRISE APPLICATIONS MANAGER 01/25/2024 12:01 PM ENTERPRISE APPLICATIONS MANAGER us Ta Reyes MD HEMATOLOGY ORDERABLES Final Resu lt [facility] [address] [place] [address] * Critical Care (01/25/2024 11:51 AM ENTERPRISE APPLICATIONS MANAGER) Narrative Ta Reyes MD - 01/25/2024 11:51 AM ENTERPRISE APPLICATIONS MANAGER Ta Reyes MD ? 01/25/2024 ??4:06 PM Critical Care Performed by: Ta Reyes MD Authorized by: Ta Reyes MD ?? Critical care provider statement: ??Critical care time (minutes): ??150 ??Critical care was necessary to treat or prevent imminent or life-threatening deterioration of the following conditions: ??Cardiac failure, respiratory failure and shock us Ta Reyes MD PROCEDURE/MINOR SURGICAL ORDERAB LES Final Result * Intubation (01/25/2024 11:51 AM ENTERPRISE APPLICATIONS MANAGER) Narrative Ta Reyes MD - 01/25/2024 11:51 AM ENTERPRISE APPLICATIONS MANAGER Ta Reyes MD ? 01/25/2024 ??4:06 PM Intubation Performed by: Ta Reyes MD Authorized by: Ta Reyes MD ??Consent: The procedure was performed in an emergent situation. Indications: airway protection Intubation method: direct Patient status: sedated Preoxygenation: BVM Sedatives: etomidate Paralytic: succinylcholine Laryngoscope size: Mac 4 Tube size: 8.0 mm Tube type: cuffed Number of attempts: 1 Cords visualized: yes Post-procedure assessment: chest rise and CO2 detector Breath sounds: equal and absent over the epigastrium Cuff inflated: yes Chest x-ray interpreted by me and radiologist. Chest x-ray findings: endotracheal tube in appropriate position Patient tolerance: patient tolerated the procedure well with no immediate complications us Ta Reyes MD PROCEDURE/MINOR SURGICAL ORDERAB LES Final Result * POCT Creatinine (01/25/2024 11:35 AM ENTERPRISE APPLICATIONS MANAGER) CREATININE - POCT 1.0 0.6 - 1.3 mg/dL 01/25/2024 12:12 PM ENTERPRISE APPLICATIONS MANAGER [facility] Blood 01/25/2024 11:3 5 AM ENTERPRISE APPLICATIONS MANAGER 01/25/2024 12:12 PM ENTERPRISE APPLICATIONS MANAGER None Provider POINT OF CARE TESTING Final Resu lt [facility] [address] [place] [address] * CT STROKE HEAD WO CONTRAST (01/25/2024 11:29 AM ENTERPRISE APPLICATIONS MANAGER) Anatomical Region Laterality Modality Head N/A Computed Tomogra phy 01/25/2024 11:3 6 AM ENTERPRISE APPLICATIONS MANAGER Impressions 01/25/2024 11:38 AM ENTERPRISE APPLICATIONS MANAGER IMPRESSION: No acute intracranial abnormality. Results called to ordering provider at the time of image interpretation. Narrative 01/25/2024 11:38 AM ENTERPRISE APPLICATIONS MANAGER EXAM DESCRIPTION: CT STROKE HEAD WO CONTRAST REASON FOR STUDY: pt AMS and poor historian and only answers yes to everything. last known normal unknown ?? TECHNIQUE: Multiplanar computed tomographic imaging of the brain. Automated exposure control was used as a dose optimization technique for this study. COMPARISON: None. FINDINGS: No acute intracranial hemorrhage or abnormal extra-axial fluid collection. No evidence of acute large vessel territorial infarction. 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 No acute hydrocephalus. ??There is cerebral volume loss. Basilar cisterns patent. ?? Paranasal sinuses and mastoid air cells clear. ?? No depressed skull fractures. THIS IS AN ELECTRONICALLY VERIFIED FINAL REPORT 01/25/2024 11:36 AM - Electronically signed by ??Edgar Lema M.D. SN: SN D: ??01/25/2024 11:36 AM T: ??01/25/2024 11:36 AM Report ID: [id number] Reading Location: ??[id number] Procedure Note Edgar Lema MD - 01/25/2024 EXAM DESCRIPTION: CT STROKE HEAD WO CONTRAST REASON FOR STUDY: pt AMS and poor historian and only answers yes to everything. last known normal unknown TECHNIQUE: Multiplanar computed tomographic imaging of the brain. Automated exposure control was used as a dose optimization technique for this study. COMPARISON: None. FINDINGS: No acute intracranial hemorrhage or abnormal extra-axial fluid collection. No evidence of acute large vessel territorial infarction. 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 No acute hydrocephalus. There is cerebral volume loss. Basilar cisterns patent. Paranasal sinuses and mastoid air cells clear. No depressed skull fractures. THIS IS AN ELECTRONICALLY VERIFIED FINAL REPORT 01/25/2024 11:36 AM - Electronically signed by Edgar Lema M.D. SN: SN Report ID: [id number] Reading Location: [id number] IMPRESSION: No acute intracranial abnormality. Results called to ordering provider at the time of image interpretation. Ta Reyes MD IMG CT ORDERABLES Final Result * EKG SCAN (01/25/2024 12:00 AM ENTERPRISE APPLICATIONS MANAGER) 01/25/2024 us Provider Scan IMG ECG ORDERABLES Final Result RESULTING AGENCY from Last 3 Months Insurance MEDICARE MEDICARE Advance Directives Documents on File Type Date Recorded Patient Flying I Instructor Expl anation [place] Surrogate Physician Appointment 01/26/2024 3:46 PM [facility], 01/26/2024 * Full Code (Latest Code Status on File) Date Activated Date Inactivated Comments 01/25/2024 6:48 PM CPR-Full Cindy tment: FULL ARREST: Attempt Resuscitation/CPR wit intubation and mechanical ventilation. PRE-ARREST: Use entire range of life support measures to stabilize the patient. Care Teams Spray Operator Relationship Specialty Start Date End Date Provider, Unknown UNKNOWN PCP - General 01/25/24
--- OUTSIDE RECORDS SUMMARY | 2024-02-18 04:10 | XMS_ITS | Continuity of Care Document ---
Author Organization [address] 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 Name Role Phone MD MARTHA Primary Care Physician Unavailab le Encounter Date(s): 03/26/22 - 04/11/[address] [place] [id number] Discharge Disposition: Home with Home Health Care Attending Physician: MD Anne Tasha Admitting Physician: MD Anne Tasha Allergies, Adverse Reactions, Alerts No Known Allergies Assessment and Plan Extracted from: Title:Discharge Summary - Author:MD Morgan, Clayton Date:04/11/22 Discharge Information Discharge Information: Admit Date: 03/26/22 17:18 Discharge Date: 04/11/22 Reason For Visit: SWING BED Discharge Location: Home Physicians Involved With Care ? Admitting: ? MD Anne Tasha ? Attending: ? MD Anne Tasha ? Primary Care: ? MD MARTHA . Conditions Present on Admission: [...] carotid endarterectomy 02/21/22 who is admitted to [facility] Swing bed for cont IV Abx therapy for MSSA Bacteremia with IV Ancef thru 04/10/22 and rehab for weakness after an acute hospitalization where he was treated for an acute CVA with tPA and he suffered a seizure and developed atrial fibrillation. Has a nash catheter for urine retention - has not [...] outpatient, cont Eliquis. 4. Urinary retention: On Nash, Cont Bladder training with new parameters. Nurse informed for bladder scanning. Cont Flomax. 5. Seizure like activity: CT and MRI brain were negative for acute process, Cont Keppra, scheduled for EEG on today at [facility] with Dr. Cagle, will follow [...] Lab Results ST Selected Lab Results Lab ?? Results ?? Normalcy ?? Date WBC ?? 9.20 K/mm3 ?? Normal ?? 04/10/22 05:25 HGB ?? 9.5 gm/dL ?? Low ?? 04/10/22 05:25 HCT ?? 29.0 % ?? Low ?? 04/10/22 05:25 PLT ?? 368 K/mm3 ?? Normal ?? 04/10/22 05:25 Sodium Level ?? 138 mmol/L ?? Normal ?? 04/10/22 05:25 Chloride Level ?? 101 mmol/L ?? Normal ?? 04/10/22 05:25 Potassium Level ?? 3.9 mmol/L ?? Normal ?? 04/10/22 05:25 BUN ?? 17 mg/dL ?? Normal ?? 04/10/22 05:25 Creatinine ?? 1.0 mg/dL ?? Normal ?? 04/10/22 05:25 AST ?? 13 IntUnit/L ?? Low ?? 04/10/22 05:25 ALT ?? 6 IntUnit/L ?? Low ?? 04/10/22 05:25 Calcium Level ?? 8.6 mg/dL ?? Low ?? 04/10/22 05:25 Magnesium Level ?? 1.8 mg/dL ?? Normal ?? 04/10/22 05:25 Albumin Level ?? 2.9 gm/dL ?? Low ?? 04/10/22 05:25 CO2/Carbon Dioxide ?? 29 mmol/L ?? Normal ?? 04/10/22 05:25 Glucose, Random ?? 104 mg/dL ?? Normal ?? 04/10/22 05:25 , Unresulted Labs/Orders ST Results [...] Signs (last charted) Pulse:?78?(04/11 08:38)?Pulse Ox:?93?(04/11 08:17) BP:?127/66?(04/12 07:17)?Ox Delivery:?Room air Temperature:?97.9 F (36.6 C) ??(04/11 08:17)?Ox %/FiO2:?21?(04/11 07:33) Respiration:?18?(04/12 07:17)?FiO2 set:?Not Charted Pain Intensity Level:?6?(04/11 08:38) Measurements (last charted) ? Weight: ? [...] in 1 week . Future Appointments Appointment Date:06/26/2022 02:30:00 PM Scheduled Provider:MD Tsering, Elmo Location:[facility] Appointment Type:NR Office Visit Functional Status 04/11/22 [facility] to destination [facility] Patient discharge to Home 04/11/22 Home Equipment/Treatments/Services Walke r Uses currently No Status of request Available to patient Provider/Company name Dash Chahal Provider address/telephone # Equip. Serv. Delivery Date/Time 15:00:00 Home equip/tx/svc comments to bring to p atient room 4 wheel walker delivered at 1400 Anticipated discharge date Anticipated discharge disposition Home w ith home care Identify/notify family caregiver Yes Name/number of caregiver Alondra [phone] 04/11/22 Interdisciplinary Team Conf Performed Ye s Interdisciplinary Team Conf date/time 04/04/27 09:00:00 03/27/22 Assets & liabilities Able to return to rehospital living arrangement, Lives with family/significant other 03/26/22 Anticipated discharge needs Home Health Medications Aspir 81 oral enteric coated tablet = 1 Tab, ORAL, DAILY, # 30 Tab, 0 Refill(s), Maintenance, Pharmacy: [facility] #[id number], 180.34, cm, 03/27/22 12:16:00 PST, Height/Length (cm), 86.3, kg, 03/26/22 18:15:00 PST, Dose calculation weight (kg) Start Date: 04/11/22 Status: Ordered atorvastatin 80 mg oral tablet = 1 Tab, ORAL, DAILY, # 30 Tab, 0 Refill(s), Maintenance, Pharmacy: [facility] #[id number], 180.34, cm, 03/27/22 12:16:00 PST, Height/Length (cm), 86.3, kg, 03/26/22 18:15:00 PST, Dose calculation weight (kg) Start Date: 04/11/22 Status: Ordered budesonide 0.5 mg/2 mL inhalation suspension = 2 mL, INH, Q12H, # 120 mL, 0 Refill(s), Maintenance, Pharmacy: [facility] #[id number], 180.34, cm, 03/27/22 12:16:00 PST, Height/Length (cm), 86.3, kg, 03/26/22 18:15:00 PST, Dose calculation weight (kg) Start Date: 04/11/22 Status: Ordered cholecalciferol 1000 intl units oral tablet = 1 Tab, ORAL, DAILY, # 30 Tab, 0 Refill(s), Maintenance, Pharmacy: [facility] #[id number], 180.34, cm, 03/27/22 12:16:00 PST, Height/Length (cm), 86.3, kg, 03/26/22 18:15:00 PST, Dose calculation weight (kg) Start Date: 04/11/22 Status: Ordered digoxin 0.125 mg, ORAL, TAB, 04/11/22 9:00:00 PST Start Date: 04/11/22 Stop Date: 04/11/22 Status: Completed digoxin 0.125 mg, ORAL, TAB, 04/10/22 9:00:00 PST Start Date: 04/10/22 Stop Date: 04/10/22 Status: Completed digoxin 0.125 mg, ORAL, TAB, 04/09/22 9:00:00 PST Start Date: 04/09/22 Stop Date: 04/09/22 Status: Completed digoxin 125 mcg (0.125 mg) oral tablet = 1 Tab, ORAL, DAILY, # 30 Tab, 0 Refill(s), Maintenance, Pharmacy: [facility] #[id number], 180.34, cm, 03/27/22 12:16:00 PST, Height/Length (cm), 86.3, kg, 03/26/22 18:15:00 PST, Dose calculation weight (kg) Start Date: 04/11/22 Status: Ordered docusate-senna 50 mg-8.6 mg oral capsule 0 Refill(s), Maintenance Start Date: 03/07/22 Status: Ordered Eliquis 5 mg oral tablet = 1 Tab, ORAL, BID, # 60 Tab, 0 Refill(s), Maintenance, Pharmacy: [facility] #[id number], 180.34, cm, 03/27/22 12:16:00 PST, Height/Length (cm), 86.3, kg, 03/26/22 18:15:00 PST, Dose calculation weight (kg) Start Date: 04/11/22 Status: Ordered furosemide 20 mg oral tablet = 1 Tab, ORAL, DAILY, # 30 Tab, 0 Refill(s), Maintenance, Pharmacy: [facility] #[id number], 180.34, cm, 03/27/22 12:16:00 PST, Height/Length (cm), 86.3, kg, 03/26/22 18:15:00 PST, Dose calculation weight (kg) Start Date: 04/11/22 Status: Ordered Keppra 500 mg oral tablet = 1 Tab, ORAL, BID, # 60 Tab, 0 Refill(s), Maintenance, Pharmacy: [facility] #[id number], 180.34, cm, 03/27/22 12:16:00 PST, Height/Length (cm), 86.3, kg, 03/26/22 18:15:00 PST, Dose calculation weight (kg) Start Date: 04/11/22 Status: Ordered lisinopril 10 mg oral tablet = 1 Tab, ORAL, DAILY, # 30 Tab, 0 Refill(s), Maintenance, Pharmacy: [facility] #[id number], 180.34, cm, 03/27/22 12:16:00 PST, Height/Length (cm), 86.3, kg, 03/26/22 18:15:00 PST, Dose calculation weight (kg) Start Date: 04/11/22 Status: Ordered Metoprolol Tartrate 50 mg oral tablet = 1 Tab, ORAL, BID, # 60 Tab, 0 Refill(s), Maintenance, Pharmacy: [facility] #[id number], 180.34, cm, 03/27/22 12:16:00 PST, Height/Length (cm), 86.3, kg, 03/26/22 18:15:00 PST, Dose calculation weight (kg) Start Date: 04/11/22 Status: Ordered nicotine 14 mg/24 hr transdermal film, extended release = 1 Patch, TOP, DAILY, X 7 Day(s), # 7 Patch, 0 Refill(s), Acute, Pharmacy: [facility] #[id number], 180.34, cm, 03/27/22 12:16:00 PST, Height/Length (cm), 86.3, kg, 03/26/22 18:15:00 PST, Dose calculation weight (kg) Start Date: 04/11/22 Stop Date: 04/18/22 Status: Ordered pantoprazole 40 mg oral enteric coated tablet = 1 Tab, ORAL, ACBkfst, # 30 Tab, 0 Refill(s), Maintenance, Pharmacy: [facility] #[id number], 180.34, cm, 03/27/22 12:16:00 PST, Height/Length (cm), 86.3, kg, 03/26/22 18:15:00 PST, Dose calculation weight (kg) Start Date: 04/11/22 Status: Ordered tamsulosin 0.4 mg oral capsule = 1 Cap, ORAL, QBedtime, # 30 Cap, 0 Refill(s), Maintenance, Pharmacy: [facility] #[id number], 180.34, cm,03/27/22 12:16:00 PST, Height/Length (cm), 86.3, kg, 03/26/22 18:15:00 PST, Dose calculation weight(kg) Start Date: 04/11/22 Status: Ordered Problem List Condition Confirmation Course Effective Dates Status Health St [facility] Informant Body mass index 30+ - obesity Confirmed Active Diabetes Confirmed Active Elevated serum cholesterol Confirmed Active High blood pressure Confirmed Active TIA (transient ischemic attack) Confirmed Active Results Laboratory List Name Date CBC w Differential 04/10/22 Comprehensive Metabolic Panel CMP (CMP C omprehensive Metabolic Panel) 04/10/22 Differential Automated* 04/10/22 Magnesium Level 04/10/22 Basic Metabolic Panel BMP (BMP Basic Met abolic Panel) 03/31/22 CBC w Differential 03/31/22 Differential Automated* 03/31/22 Basic Metabolic Panel BMP (BMP Basic Met abolic Panel) 03/29/22 CBC w Differential 03/29/22 Differential Automated* 03/29/22 CRPhs CReactive Protein HighSensitivity 03/28/22 Comprehensive Metabolic Panel CMP (CMP C omprehensive Metabolic Panel) 03/28/22 Magnesium Level 03/28/22 Sed Rate (ESR) AUTO (ESR Auto) 03/28/22 Uric Acid Level 03/28/22 Most recent to oldest [Reference Range]: 1 2 3 CRP High Sensitivity [0.020-0.748 mg/dL] 5.945 mg/dL *HI* (03/28/22 4:36 AM) Auto Neutrophil Percent [46.0-78.0 %] 68.9 % (04/10/22 5:25 AM) 61.2 % (03/31/22 3:03 AM) 65.4 % (03/29/22 4:46 AM) Auto Neutrophil Absolute [1.4-7.2 K/mm3] 6.3 K/mm3 (04/10/22 5:25 AM) 4.0 K/mm3 (03/31/22 3:03 AM) 4.6 K/mm3 (03/29/22 4:46 AM) Auto Lymphocyte Percent [9.0-42.0 %] 17.6 % (04/10/22 5:25 AM) 21.0 % (03/31/22 3:03 AM) 16.0 % (03/29/22 4:46 AM) Auto Lymphocyte Absolute [0.8-4.4 K/mm3] 1.6 K/mm3 (04/10/22 5:25 AM) 1.4 K/mm3 (03/31/22 3:03 AM) 1.1 K/mm3 (03/29/22 4:46 AM) Auto Monocyte Percent [0.0-10.0 %] 12.1 % *HI* (04/10/22 5:25 AM) 15.6 % *HI* (03/31/22 3:03 AM) 16.6 % *HI* (03/29/22 4:46 AM) Auto Monocyte Absolute [0.2-1.6 K/mm3] 1.1 K/mm3 (04/10/22 5:25 AM) 1.0 K/mm3 (03/31/22 3:03 AM) 1.2 K/mm3 (03/29/22 4:46 AM) Auto Basophil Percent [0.0-3.0 %] 0.6 % (04/10/22 5:25 AM) 1.0 % (03/31/22 3:03 AM) 0.6 % (03/29/22 4:46 AM) Auto Basophil Absolute [0.0-0.2 K/mm3] 0.1 K/mm3 (04/10/22 5:25 AM) 0.1 K/mm3 (03/31/22 3:03 AM) 0.0 K/mm3 (03/29/22 4:46 AM) Auto Eosinophil Percent [0.0-7.0 %] 0.8 % (04/10/22 5:25 AM) 1.2 % (03/31/22 3:03 AM) 1.4 % (03/29/22 4:46 AM) Auto Eosinophil Absolute [0.0-0.7 K/mm3] 0.1 K/mm3 (04/10/22 5:25 AM) 0.1 K/mm3 (03/31/22 3:03 AM) 0.1 K/mm3 (03/29/22 4:46 AM) WBC [4.50-11.00 K/mm3] 9.20 K/mm3 (04/10/22 5:25 AM) 6.60 K/mm3 (03/31/22 3:03 AM) 7.00 K/mm3 (03/29/22 4:46 AM) RBC [4.50-5.90 M/mm3] 3.34 M/mm3 *LOW* (04/10/22 5:25 AM) 2.86 M/mm3 *LOW* (03/31/22 3:03 AM) 2.86 M/mm3 *LOW* (03/29/22 4:46 AM) HGB [13.5-17.5 gm/dL] 9.5 gm/dL *LOW* (04/10/22 5:25 AM) 8.4 gm/dL *LOW* (03/31/22 3:03 AM) 8.4 gm/dL *LOW* (03/29/22 4:46 AM) HCT [37.0-49.0 %] 29.0 % *LOW* (04/10/22 5:25 AM) 25.4 % *LOW* (03/31/22 3:03 AM) 25.3 % *LOW* (03/29/22 4:46 AM) MCV [80.0-99.0 fL] 87.0 fL (04/10/22 5:25 AM) 88.9 fL (03/31/22 3:03 AM) 88.4 fL (03/29/22 4:46 AM) MCH [26.0-34.0 pg] 28.4 pg (04/10/22 5:25 AM) 29.3 pg (03/31/22 3:03 AM) 29.3 pg (03/29/22 4:46 AM) MCHC [32.5-35.5 gm/dL] 32.6 gm/dL (04/10/22 5:25 AM) 33.0 gm/dL (03/31/22 3:03 AM) 33.1 gm/dL (03/29/22 4:46 AM) RDW [11.5-14.5 %] 15.2 % *HI* (04/10/22 5:25 AM) 14.7 % *HI* (03/31/22 3:03 AM) 14.5 % (03/29/22 4:46 AM) PLT [150-400 K/mm3] 368 K/mm3 (04/10/22 5:25 AM) 362 K/mm3 (03/31/22 3:03 AM) 327 K/mm3 (03/29/22 4:46 AM) MPV [7.4-10.4 fL] 8.6 fL (04/10/22 5:25 AM) 9.0 fL (03/31/22 3:03 AM) 9.3 fL (03/29/22 4:46 AM) Sedimentation Rate Auto [0-2 0 mm/hr] 40 mm/hr *HI* (03/28/22 4:36 AM) Sodium Level [136-144 mmol/L] 138 mmol/L (04/10/22 5:25 AM) 138 mmol/L (03/31/22 3:03 AM) 136 mmol/L (03/29/22 4:46 AM) Potassium Level [3.5-5.2 mmol/L] 3.9 mmol/L (04/10/22 5:25 AM) 4.5 mmol/L (03/31/22 3:03 AM) 4.5 mmol/L (03/29/22 4:46 AM) Chloride Level [101-111 mmol/L] 101 mmol/L (04/10/22 5:25 AM) 103 mmol/L (03/31/22 3:03 AM) 100 mmol/L *LOW* (03/29/22 4:46 AM) CO2/Carbon Dioxide [22-32 mmol/L] 29 mmol/L (04/10/22 5:25 AM) 28 mmol/L (03/31/22 3:03 AM) 29 mmol/L (03/29/22 4:46 AM) Anion Gap [5-15 mmol/L] 8 mmol/L (04/10/22 5:25 AM) 7 mmol/L (03/31/22 3:03 AM) 7 mmol/L (03/29/22 4:46 AM) Glucose, Random [70-110 mg/dL] 104 mg/dL (04/10/22 5:25 AM) 116 mg/dL *HI* (03/31/22 3:03 AM) 99 mg/dL (03/29/22 4:46 AM) BUN [7-29 mg/dL] 17 mg/dL (04/10/22 5:25 AM) 12 mg/dL (03/31/22 3:03 AM) 20 mg/dL (03/29/22 4:46 AM) Creatinine [0.5-1.4 mg/dL] 1.0 mg/dL (04/10/22 5:25 AM) 0.9 mg/dL (03/31/22 3:03 AM) 1.0 mg/dL (03/29/22 4:46 AM) BUN/Creat Ratio [15-24] 17 (04/10/22 5:25 AM) 13 *LOW* (03/31/22 3:03 AM) 20 (03/29/22 4:46 AM) Osmolality, Calculated [275-295 mOsm/L] 278 mOsm/L (04/10/22 5:25 AM) 276 mOsm/L (03/31/22 3:03 AM) 275 mOsm/L (03/29/22 4:46 AM) Uric Acid Level [2.6-8.7 mg/dL] 4.5 mg/dL (03/28/22 4:36 AM) Calcium Level [8.9-10.3 mg/dL] 8.6 mg/dL *LOW* (04/10/22 5:25 AM) 8.1 mg/dL *LOW* (03/31/22 3:03 AM) 8.2 mg/dL *LOW* (03/29/22 4:46 AM) Magnesium Level [1.8-2.4 mg/dL] 1.8 mg/dL (04/10/22 5:25 AM) 1.7 mg/dL *LOW* (03/28/22 4:36 AM) Total Protein [6.5-8.1 gm/dL] 6.1 gm/dL *LOW* (04/10/22 5:25 AM) 5.9 gm/dL *LOW* (03/28/22 4:36 AM) Albumin Level [3.5-5.0 gm/dL] 2.9 gm/dL *LOW* (04/10/22 5:25 AM) 2.5 gm/dL *LOW* (03/28/22 4:36 AM) Globulin Level [2.6-4.0 gm/dL] 3.2 gm/dL (04/10/22 5:25 AM) 3.4 gm/dL (03/28/22 4:36 AM) A/G Ratio [1.5-3.0] 0.9 *LOW* (04/10/22 5:25 AM) 0.7 *LOW* (03/28/22 4:36 AM) Bilirubin, Total [0.0-1.2 mg/dL] 0.4 mg/dL (04/10/22 5:25 AM) 0.7 mg/dL (03/28/22 4:36 AM) AST [15-41 IntUnit/L] 13 IntUnit/L *LOW* (04/10/22 5:25 AM) 12 IntUnit/L *LOW* (03/28/22 4:36 AM) ALT [14-63 IntUnit/L] 6 IntUnit/L *LOW* (04/10/22 5:25 AM) 5 IntUnit/L *LOW* (03/28/22 4:36 AM) ALP [30-114 IntUnit/L] 63 IntUnit/L (04/10/22 5:25 AM) 64 IntUnit/L (03/28/22 4:36 AM) eGFR 82 mL/min/1.73m2 1 *NA* (04/10/22 5:25 AM) 89 mL/min/1.73m2 2 *NA* (03/31/22 3:03 AM) 81 mL/min/1.73m2 3 *NA* (03/29/22 4:46 AM) 1Result Comment: This eGFR equation utilizes the 2020 CKD-EPI creatinine equation. 2Result Comment: This eGFR equation utilizes the 2020 CKD-EPI creatinine equation. 3Result Comment: This eGFR equation utilizes the 2020 CKD-EPI creatinine equation. Radiology Reports * Exam Date Time Procedure Performing Provider Status 03/28/22 11:38 AM Knee Rt 2 Vw Kamilah Gao; Au th (Verified) Notes: (Knee Rt 2 Vw) Reason For Exam: Swelling REPORT EXAMINATION: Knee Rt 2 Vw CLINICAL HISTORY: [...] Sandeep Montiel on 03/28/2022 12:51 PM Final * Exam Date Time Procedure Performing Provider Status 03/28/22 12:15 AM US Lower Ext Vein Duplex Rt GEN LLOYD (Verified) Notes: (US Lower Ext Vein Duplex Rt) Reason For Exam: Edema REPORT EXAM: Right extremity venous duplex study CLINICAL INDICATION: Swelling COMPARISON: None TECHNIQUE: Venous duplex evaluation performed using 4 MHz transducer. Sagittal and axial berry scaleand color Doppler images, including compression images, obtained of the right common femoral, femoral, popliteal, posterior tibial veins. Spectral wave forms from the segments also recorded. FINDINGS: No DVT IMPRESSION: 1. Normal Signed by: Chapo Lowery on 03/28/2022 6:21 AM Final Vital Signs Most recent to oldest [Reference Range]: 1 2 3 4 Temperature (F) [97-100.4 DegF] 97.6 DegF (04/11/22 3:48 PM) 97.9 DegF (04/11/22 8:17 AM) 97.4 DegF (04/10/22 7:29 PM) Peripheral Pulse Rate [60-99 bpm] 90 bpm (04/11/22 3:48 PM) 78 bpm (04/11/22 8:17 AM) 76 bpm (04/11/22 7:33 AM) 76 bpm (04/11/22 7:33 AM) Apical Heart Rate [60-99 bpm] 78 bpm (04/11/22 8:38 AM) 99 bpm (04/10/22 8:54 AM) 70 bpm (04/09/22 9:21 AM) Respiratory rate [14-20 br/min] 18 br/min (04/11/22 3:48 PM) 18 br/min (04/11/22 8:17 AM) 18 br/min (04/11/22 7:33 AM) 18 br/min (04/11/22 7:33 AM) Blood Pressure [90-139/60-89 mmHg] 130/69mmHg (04/11/22 3:48 PM) 127/66mmHg (04/11/22 8:17 AM) 147/67mmHg *HI* (04/10/22 7:29 PM) Pulse Oximetry 97 % (04/11/22 3:48 PM) 93 % (04/11/22 8:17 AM) 94 % (04/11/22 7:33 AM) 94 % (04/11/22 7:33 AM) Pulse oximetry site Finger (04/10/22 8:39 AM) Finger (04/09/22 7:07 PM) Finger (04/08/22 6:52 PM) Pulse oximetry method Intermittent (04/10/22 7:29 PM) Intermittent (04/10/22 7:45 AM) Intermittent (04/09/22 1:32 PM) Oxygen delivery Room air (04/11/22 3:48 PM) Room air (04/11/22 9:44 AM) Room air 1 (04/11/22 7:13 AM) Activity with SPO2 monitoring At rest (04/10/22 7:45 AM) At rest (04/08/22 7:23 PM) At rest (04/08/22 6:23 PM) Oxygen flow 1 L/min (04/10/22 11:30 PM) 1 L/min (04/10/22 11:21 PM) 1 L/min (04/10/22 8:39 AM) Oxygen %/FiO2 [18-100 %] 21 % (04/11/22 7:33 AM) 21 % (04/11/22 7:33 AM) 21 % (04/11/22 7:13 AM) 21 % (04/11/22 7:13 AM) Temp site Oral (04/11/22 3:48 PM) Oral (04/11/22 8:17 AM) Oral (04/10/22 7:29 PM) BP position Sitting (04/11/22 3:48 PM) Sitting (04/11/22 8:17 AM) Lying (04/10/22 7:29 PM) BP location Right arm (04/11/22 3:48 PM) Right arm (04/11/22 8:17 AM) Right arm (04/10/22 7:29 PM) Blood Pressure Method Automatic (04/11/22 3:48 PM) Automatic (04/11/22 8:17 AM) Automatic (04/10/22 7:29 PM) Peripheral pulse site Non-invasive BP device (04/11/22 3:48 PM) Non-invasive BP device (04/11/22 8:17 AM) Pulse oximetry device (04/11/22 7:33 AM) Pulse oximetry device (04/11/22 7:33 AM) Weight (kg) 88.3 kg (04/11/22 6:40 AM) 88.0 kg (04/08/22 5:04 AM) 87.0 kg (04/07/22 6:40 AM) Dose calculation weight (kg) 86.3 kg (03/26/22 6:14 PM) Body Mass Index [30 kg/m2] 26.54 kg/m2 (03/26/22 6:14 PM) Weight measured method Bed scale (04/11/22 6:40 AM) Bed scale (04/08/22 5:04 AM) Bed scale (04/07/22 6:40 AM) Height/Length (cm) 180.34 cm (03/27/22 10:06 AM) 180.34 cm (03/26/22 6:14 PM) Orientation rehab Usual for patient (04/09/22 1:32 PM) Usual for patient (04/08/22 9:30 AM) Not oriented to time, Other: forgetful (04/05/22 10:38 AM) Follows commands Multiple (04/10/22 12:35 PM) Simple (04/09/22 1:32 PM) Simple, Multiple (04/08/22 9:30 AM) Cues required Yes, Verbal, Tactile, Visual (04/10/22 12:35 PM) Yes (04/09/22 1:32 PM) Yes, Verbal, Tactile, Visual (04/08/22 9:30 AM) Affect Intact (04/10/22 12:35 PM) Intact (03/27/22 9:58 AM) Affect rehab Animated (04/10/22 12:35 PM) Animated (04/04/22 2:44 PM) Animated (03/28/22 9:57 AM) Attention Intact (04/10/22 12:35 PM) Intact (04/08/22 9:30 AM) Intact (04/05/22 10:38 AM) Initiation Intact (04/10/22 12:35 PM) Intact (04/08/22 9:30 AM) Intact (04/05/22 10:38 AM) Sequencing Intact (04/10/22 12:35 PM) Intact (04/05/22 10:38 AM) Intact (03/29/22 10:27 AM) Safety/Judgment Intact (04/10/22 12:35 PM) Intact 2 (04/08/22 9:30 AM) Intact (04/05/22 10:38 AM) Concept Formation Intact (04/10/22 12:35 PM) Intact (03/27/22 9:58 AM) Reasoning Intact (04/05/22 10:38 AM) Intact (03/29/22 10:27 AM) Self awareness Impaired (04/10/22 12:35 PM) Intact (04/04/22 2:44 PM) Intact (03/29/22 10:27 AM) Mood/Emotions rehab Appropriate to situation (04/10/22 12:35 PM) Irritable (04/09/22 1:32 PM) Appropriate to situation (04/08/22 9:30 AM) Memory Intact (04/11/22 9:44 AM) Impaired (04/10/22 7:53 PM) Intact (04/10/22 12:35 PM) Problem solving Intact (04/11/22 9:44 AM) Impaired (04/10/22 7:53 PM) Intact (04/10/22 12:35 PM) Social interaction Intact (04/11/22 9:44 AM) Intact (04/10/22 7:53 PM) Intact (04/10/22 12:35 PM) Neurological norm Alert, Age appropriate, Equalizing Saw Operator strength firm and equal, Moves extremities equally, No pain, Opens eyes spontaneously, Oriented X 4, PERRLA (04/11/22 9:44 AM) Alert, Age appropriate (04/10/22 7:53 PM) Alert, Age appropriate, Behavior appropriate, Equalizing Saw Operator strength firm and equal, Moves extremities equally, No pain, Opens eyes spontaneously, Oriented X 4, PERRLA, Verbal response appropriate (04/10/22 7:24 AM) 1Result Comment: see clin note 2Result Comment: needs cues/reminders intermittent Social History Social History Type Response Smoking Status Never; Is there a sm oker in the household? No; *Do you have concerns about tobacco use in household? No;Former smoker, quit more than 30 days ago; *Are you ready to quit? N/A; Receiving counseling during visit/stay: No; Started at age: 12; Stopped at age: 75; Number of years: 63; 1 entered on: 03/26/22 Sex Male 1Pt astates had last cigarette on June 12- 63 yrs of smoking History and Physical Examination * MD Omid, Kymberly: PERFORM, MODIFY, MODIFY, MODIFY, MODIFY, MODIFY, MODIFY, MODIFY, MODIFY, MODIFY, MODIFY, MODIFY, MODIFY, MODIFY, MODIFY, MODIFY, MODIFY Event Display: History and Physical Examination Authored Date: Patient: SHERRON SURESH ? Age: 76 years?Legal Sex: MALE?: 1945 Date of Service 03/27/2022 11:59 PST Chief Complaint SWING BED History of Present Illness 76 yo male with hx of HTN, HLD, tob abuse, COPD, pre-diabetes, s/p carotid endarterectomy 02/21/22 who is admitted to [facility] Swing bed for cont IV Abx therapy for MSSA Bacteremia with IV Ancef thru 04/10/22 and rehab for weakness after an acute hospitalization where he was treated for an acute CVA with tPA and he suffered a seizure and developed atrial fibrillation. Has a nash catheter for urine retention - has not had any problems with urination previously and no dx of prostate problems.?? 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 Pt is a full code. [facility] Tread[facility].?? Had his carotid stent placed there 02/21/22. His and stepson are at the bedside helping with history ( is 86 and stepson is 70); , Julián Rodriges, is surrogate decision maker.?? I reviewed notes, studies, and imaging reports from the outside facility ?? Acute hospitalization Recap: 76-year-old male with history of HTN, HLD, chronic ex-smoker, COPD,new T2DM, s/p carotid endarterectomy on 02/21/22 who was admitted due to AMS to r/o stroke on 03/04. Patient was directly admitted to ICU for tPA. Later,??MRI had no findings of stroke, unremarkable CT angio of the neck and unremarkable During hospitalization, patient developed Afib with RVR and was managed with amiodarone drip. Patient also developed urinary retention and hematuria and was placed on Nash. Blood cultures during his hospital stayed showed [...] the patient's altered sensorium and atrial fibrillation. ??This is probably masked by the patient's corticosteroids. ??TheE. faecalis and Citrobacter likely a complication of a catheter-associated urinary tract infection.The patient has had hematuria; that has now [...] ICU after a seizure-like activity/rapid response episode. Nextday, he was downgraded. Tele neuro was consulted and recommended Keppra, apixaban, atorvastatin. Patient has remained?? stable, neurologically intact. No more seizure-like activity. [...] knee Skin: Negative. Neurologic: Negative. Psychiatric: Negative. ?? Review of Systems was completed. ?? Physical Exam Vitals and Measurements T: 98.0 F HR: 69(Apical) HR: 82 RR: 18 BP: 126/74 SpO2: 97% O2 Delivery: Nasal cannula O2 Flow: 1L/min HT:??180.34 cm??WT:??86.3 kg(Dose Calc Wt.)??WT:??86.3 kg??BMI:??26.54 kg/m2 ??Shock Index: ??0.558 03/27/22 07:29 General Appearance: No acute distress. 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 Atrial fibrillation with RVR (Unspecified atrial fibrillation, I48.91) - currently NSR - will cont the aniticoag, B avis, Echo (03/05/22)??- showed EF 55-60% ?? COPD without exacerbation (Chronic obstructive pulmonary disease, unspecified, J44.9) - will cont on inhaled steroids and breathing tx - will get resp therapy consult, give pt IS ?? Generalized weakness (Weakness, R53.1) - will admit to rehab - get PT/OT/ST eval and tx - pt has supportive family, will return home with them, is motivated to return to [facility] Ordered: Admission Status ?? History of TIA (transient ischemic attack) (Personal history of transient ischemic attack (TIA), and cerebral infarction without residual deficits, Z86.73) - reviewed records from outside facility - pt received tx with tPA on 03/04/22 for likely stroke, had consult with Dr Cagle, neurologoy - cont chol, bp control, anticoagulation - disc high risk of re-stroke with multiple RF and cont tob abuse ?? Hyperglycemia (Hyperglycemia, unspecified, R73.9) - will cont to monitor - likely sugar was elevated from steroids received and acute stress - per pt and family has no dx of DM ?? MSSA bacteremia (Bacteremia, R78.81) - admit for continued IV Abx therapy for MSSA bacteremia (polymicrobial infection per ID, Dr Fernandez notes) - will cont IV abx therapy with 2 gn Ancef Q8 thru 04/10/22 (4 weeks 03/13/22 thru 04/10/22) - will monitor weekly labs - CBC/CMP/ESR/CRP-hs ?? Prediabetes (Prediabetes, R73.03) - hgA1c 6.4 03/11/22 - will cont FSBS, SSI coverage, CCD diet, monitor closely and adj medication - likely higher sugars due to steroid therapy and acute stress ?? Right knee pain (Pain in right knee, M25.561) - pain and swelling started in last 24 hours, - will r/o acute gout attack, will check xray and u/s to r/o DVT - ok for elevation and cold compress, take meds as needed for pain ?? Seizure (Unspecified convulsions, R56.9) - one episode, had the tele-neuro consult that rec?? keppra - will give lorazepam IV for acute sustained seizure - will cont seizure precaution - needs f/u with Dr Cagle ?? Tobacco abuse (Tobacco use, Z72.0) - disc need for cessation - disc high risk for re-stroke - cont nicotine patch ?? Urinary catheter present (Presence of urogenital implants, Z96.0) - cont nash care per protocol ?? Urine retention (Retention of urine, unspecified, R33.9) - cont meds and will cont with bladder training - disc that poss had some underlying prostate enlargement that was unknown -?? disc that as gets more moble and stable from his acute illness normal bladder functions more likely to return ? Orders: acetaminophen (acetaminophen), 500 mg, ORAL, Q6H, PRN, Pain-Mild (Scale 1-3), TAB, 03/26/22 20:32:00 PST albuterol-ipratropium (DuoNeb), = 3 mL, INH, Q6H7, NEB AMP, 03/27/22 13:00:00 PST albuterol-ipratropium (DuoNeb), = 3 mL, INH, Q4H7, PRN, Shortness of breath, [facility] AMP, 03/27/22 12:55:00 PST apixaban (Eliquis), 5 mg, ORAL, BID, Indication = Atrial Fibrillation, TAB, 03/26/22 21:00:00 PST atorvastatin (atorvastatin), 80 mg, ORAL, DAILY, TAB, 03/26/22 19:46:00 PST budesonide (budesonide 0.25 mg/2 mL Inhal Susp), 0.5 mg, INH, Q12H, NEB AMP, 03/27/22 13:00:00 PST ceFAZolin (Ancef), 2 gm, IVPB, [id number], Indication= Bacteremia / Fungemia, INJ, 03/26/22 20:00:00 [...] Communication Communication Comprehensive Metabolic Panel CMP Continue Nash CRPhs CReactive Protein HighSensitivity Differential Automated* Fingerstick/Capillary Blood Sugar Fingerstick/Capillary Blood Sugar Full Code Hypoglycemia Protocol Hypoglycemia Protocol Incentive Spirometry Education Intake and Output Knee Rt 2 Vw Magnesium Level Notify Physician Nutritional Services Consult Occupational Therapy Eval & Treat per protocol Oxygen Therapy Physical Therapy Eval & Treat per protocol POC Glucose Panel POC Glucose Panel POC Glucose Panel POC Glucose Panel POC Glucose Panel POC Glucose Panel Precautions Regular Diet Respiratory Assessment Sed Rate (ESR) AUTO Serum Indices [employer] Helper Consult Speech Therapy Eval & Treat per protocol Straight Cath Updraft Nebulizer Treatment Updraft Nebulizer Treatment Updraft Nebulizer Treatment Uric Acid Level US Lower Ext Vein Duplex Rt Vital Signs VTE Prophylaxis Guidelines Weigh Patient ?? Disposition:?? Swing Bed Anticipated DC: once IV ABx and rehab complete Place of DC: home with family with HHN/PT/OT Allergies NKA Problem List Active Problems Body mass index 30+ - obesity Elevated serum cholesterol High blood pressure TIA (transient ischemic attack) Gout Pre-Diabetes Chronic Cough COPD (takes inhalers, no home oxygen) Atrial Fibrillation (dx in acute hospital) Procedure/Surgical History L carotid endarterectomy/stent 02/21/22 (at [place]) Medications Inpatient acetaminophen, 500 mg, 1 ea, ORAL, Q6H, PRN Ancef, 2 gm, 1 Vial, IVPB, U5E-Losyvtqa atorvastatin, 80 mg, 2 Tab, ORAL, DAILY [...] mg, 1 Cap, ORAL, QBedtime Lab Results ?? Immunology ? SARS-CoV-2 Source Nasopharyngeal?? 03/26/22 14:30 PST Patient From Congregate Area? No?? 03/26/22 14:30 PST Health Care Worker? No?? 03/26/22 14:30 PST SARS-CoV-2 Molecular Negative?? 03/26/22 14:30 PST Symptomatic per CDC? Yes?? 03/26/22 14:30 PST SARS-CoV-2 First test? Unknown?? 03/26/22 14:30 PST SARS-CoV-2 Is the Patient Hospitalized? Yes?? 03/26/22 14:30 PST SARS-CoV-2 Is the Patient in ICU? No?? 03/26/22 14:30 PST SARS-CoV-2 Is the Patient ? No?? 03/26/22 14:30 PST Social History ?Abuse/Intent to Harm ?CSSRS Risk Level: No risk [...] Stroke in Brother Electronically signed by: MD Omid, Kymberly Signed on: 28-Mar-2022 07:09 [facility] Hospitalist Progress Note * MD Betsy, Ulises Bauman: PERFORM Event Display: Hospitalist Progress Note Authored Date: [id number] Patient: SHERRON SURESH ? Age: 76 years?Legal [...] Nasal cannula O2 Flow: 1L/min FiO2: 28% HT:??180.34 cm??WT:??87.0 kg??BMI:??26.54 kg/m2 Intake and Output??as of 14:15 (24 hour periods starting at 06:00) ?? 04/07/22 04/06/22 04/05/22 Intake mL ? 1380 ? 2205 ? 2810 Output mL ? 1800 ? 3900 ? 6000 Fluid Balance ? -420 ?-1695 ?-3190 Physical Exam General: ??Alert and oriented, No acute distress. ?? HENT: ??Normocephalic. ?? Neck: ??Supple, Non-tender. ?? Respiratory: ??Respirations are non-labored, Breath sounds are equal. ?? Cardiovascular: ??Normal rate, No edema. ?? Gastrointestinal: ??Soft, Non-tender, Non-distended. ?? Integumentary: ??Warm, Dry. ?? Neurologic: ??Alert, Oriented. ?? Psychiatric: ??Cooperative. ?? Inpatient Medications Scheduled: albuterol-ipratrop 3-0.5 mg/3 mL Neb Soln ??3 mL, INH, Q6H7 apixaban 5 mg Tab ??5 mg 1 Tab, ORAL, BID atorvastatin 40 mg Tab ??80 mg 2 Tab, ORAL, DAILY budesonide 0.5 mg/2 mL, 2 mL Inhal Susp ??0.5 mg 2 mL, INH, Q12H ceFAZolin 2 g Inj ??2 gm 1 Vial, IVPB, F2J-Osmiungc cholecalciferol (D3) 25 mcg (1,000 IU) Tab ??25 mcg 1 Tab, ORAL, DAILY digoxin 0.125 mg Tab ??0.125 mg 1 Tab, ORAL, DAILY docusate sodium 100 mg Cap ??100 mg 1 Cap, ORAL, BID furosemide 20 mg Tab ??20 mg 1 Tab, ORAL, DAILY insulin regular (HumuLIN R) 100 units/mL, 3 mL MDV ??sliding scale, SUBQ, AC&Bed levETIRAcetam 500 mg Tab ??500 mg 1 Tab, ORAL, BID lisinopril 10 mg Tab ??10 mg 1 Tab, ORAL, DAILY magnesium Oxide 400 mg Tab ??400 mg 1 Tab, ORAL, BIDMEALS metoprolol tartrate 50 mg Tab ??50 mg 1 Tab, ORAL, BID nicotine 14 mg/day Patch ??14 mg 1 Patch, TOP, DAILY pantoprazole 40 mg EC Tab ??40 mg 1 Tab, ORAL, ACBkfst tamsulosin 0.4 mg Cap ??0.4 mg 1 Cap, ORAL, QBedtime ?? Continuous: ?? PRN: acetaminophen 500 mg Tab ??500 mg 1 ea, ORAL, Q6H albuterol-ipratrop 3-0.5 mg/3 mL Neb Soln ??3 mL, INH, Q4H7 bisacodyl 5 mg EC Tab ??5 mg 1 Tab, ORAL, DAILY Dextrose 50% Inj 50 mL Syr ??25 mL, IV, As directed Dextrose 50% Inj 50 mL Syr ??50 mL, IV, As directed glucagon 1 mg Inj SDV ??1 mg, SUBQ, As directed Glucose 40% Oral Gel 15 gm ??15 gm 37.5 mL, ORAL, As directed Milk of Magnesia 30 mL ??30 mL, ORAL, DAILY traMADol 50 mg Tab ??50 mg 1 Tab, ORAL, Q6H traMADol 50 mg Tab ??100 mg 2 Tab, ORAL, Q6H Lab Results ?? Labs All 24H ?Lab ?Results ?Date POCT - Glucose (Capillary)?? 112 mg/dL?? (HIGH)?? 04/07/22 11:01 PST Assessment/Plan _ Acute respiratory [...] Urine retention (Retention of urine, unspecified, R33.9) 1.?Generalized weakness - S/P??treatment for TIA, MSSA bacteremia, new onset AFib - for PT/OT ?? 2.?? TIA - patient presented with signs/symptoms of CVA - CT head was negative for hemorrhagic stroke - Neurology recommended tPA. Subsequent MRI brain wasnegative for stroke, CT angio was negative for hemodynamically significant stenosis in the head andneck. Echo with bubble study was negative for cardiac source of thrombus and negative for vegetations. - dual antiplatelet agents were discontinued as per Neurology ?? 3.?? New onset AFib - currently in NSR, HR is controlled -??Cardiology recommended metoprolol and digoxin and follow up??as outpatient - he is on Eliquis ?? 4.?? Urinary retention - patient was thought to have traumatic urinary catheterization and developed urinary retention then failed bladder training??so will be discharged with Nash and follow up with Urology - he is on tamsulosin ?? 5.?? Seizure like activity -??CT and MRI brain were negative for acute process - he was started on Keppra - patient has been scheduled for EEG on 04/10/22 - will follow up with Neurology ?? 6.?? MSSA and E faecalis bacteremia - patient is on Ancef until 04/10/22 ?? 7. COPD - stable on budesonide and Duoneb treatments ?? 8.?? HTN - controlled on lisinopril and metoprolol ?? 9.?? Pre-diabetes - on insulin sliding scale ?? 10.?? GI and DVT prophylaxis ?? 11.?? Full code ?? 12.?? Swing bed - over-all patient is improving and is for potential discharge on 04/10/22 which is last day of antibiotics Electronically signed by: MD Betsy, Ulises Bauman Signed on: 07-Apr-2022 14:17 PST * MD Betsy, Ulises Bauman: PERFORM Event Display: Hospitalist Progress Note Authored Date: Patient: SHERRON SURESH ? Age: 76 years?Legal Sex: MALE?: 1945 Date of Service 04/06/22 Hospital Course 76M with HTN, HLD, smoker, COPD, pre-diabetes, S/P carotid endarterectomy 02/21/22, is admitted for IV antibiotics and rehab after acute treatment for TIA (treated with tPA), MSSA bacteremia, new onset AFib, seizure, urinary retention ? Subjective Patient has no new concerns today Objective Vitals and Measurements T: 98.3 F HR: 64(Apical) HR: 81 RR: 18 BP: 140/76 SpO2: 97% O2 Delivery: Nasal cannula O2 Flow: 2L/min FiO2: 28% HT:??180.34 cm??WT:??90.9 kg??BMI:??26.54 kg/m2 Intake and Output??as of (24 hour periods starting at 06:00) ?? 04/06/22 04/05/22 04/04/22 Intake mL ?0 ? 2810 ? 2940 Output mL ?250 ? 6000 ? 4400 Fluid Balance ? -250 ?-3190 ?-1460 Physical Exam . ?? General: ??Alert and oriented, No acute distress. ?? HENT: ??Normocephalic. ?? Neck: ??Supple, Non-tender. ?? Respiratory: ??Respirations are non-labored, Breath sounds are equal. ?? Cardiovascular: ??Normal rate, No edema. ?? Gastrointestinal: ??Soft, Non-tender, Non-distended. ?? Integumentary: ??Warm, Dry. ?? Neurologic: ??Alert, Oriented. ?? Psychiatric: ??Cooperative. ?? Inpatient Medications Scheduled: albuterol-ipratrop 3-0.5 mg/3 mL Neb Soln ??3 mL, INH, Q6H7 apixaban 5 mg Tab ??5 mg 1 Tab, ORAL, BID atorvastatin 40 mg Tab ??80 mg 2 Tab, ORAL, DAILY budesonide 0.5 mg/2 mL, 2 mL Inhal Susp ??0.5 mg 2 mL, INH, Q12H ceFAZolin 2 g Inj ??2 gm 1 Vial, IVPB, Q0L-Smfxewjh cholecalciferol (D3) 25 mcg (1,000 IU) Tab ??25 mcg 1 Tab, ORAL, DAILY digoxin 0.125 mg Tab ??0.125 mg 1 Tab, ORAL, DAILY docusate sodium 100 mg Cap ??100 mg 1 Cap, ORAL, BID furosemide 20 mg Tab ??20 mg 1 Tab, ORAL, DAILY insulin regular (HumuLIN R) 100 units/mL, 3 mL MDV ??sliding scale, SUBQ, AC&Bed levETIRAcetam 500 mg Tab ??500 mg 1 Tab, ORAL, BID lisinopril 10 mg Tab ??10 mg 1 Tab, ORAL, DAILY magnesium Oxide 400 mg Tab ??400 mg 1 Tab, ORAL, BIDMEALS metoprolol tartrate 50 mg Tab ??50 mg 1 Tab, ORAL, BID nicotine 14 mg/day Patch ??14 mg 1 Patch, TOP, DAILY pantoprazole 40 mg EC Tab ??40 mg 1 Tab, ORAL, ACBkfst tamsulosin 0.4 mg Cap ??0.4 mg 1 Cap, ORAL, QBedtime ?? Continuous: ?? PRN: acetaminophen 500 mg Tab ??500 mg 1 ea, ORAL, Q6H albuterol-ipratrop 3-0.5 mg/3 mL Neb Soln ??3 mL, INH, Q4H7 bisacodyl 5 mg EC Tab ??5 mg 1 Tab, ORAL, DAILY Dextrose 50% Inj 50 mL Syr ??25 mL, IV, As directed Dextrose 50% Inj 50 mL Syr ??50 mL, IV, As directed glucagon 1 mg Inj SDV ??1 mg, SUBQ, As directed Glucose 40% Oral Gel 15 gm ??15 gm 37.5 mL, ORAL, As directed Milk of Magnesia 30 mL ??30 mL, ORAL, DAILY traMADol 50 mg Tab ??50 mg 1 Tab, ORAL, Q6H traMADol 50 mg Tab ??100 mg 2 Tab, ORAL, Q6H Lab Results ?? Labs All 24H ?Lab ?Results ?Date POCT - Glucose (Capillary)?? 118 mg/dL?? (HIGH)?? 04/05/22 16:09 PST Assessment/Plan _ Acute respiratory [...] Urine retention (Retention of urine, unspecified, R33.9) 1.?Generalized weakness - S/P??treatment for TIA, MSSA bacteremia, new onset AFib - for PT/OT ?? 2.?? TIA - patient presented with signs/symptoms of CVA - CT head was negative for hemorrhagic stroke - Neurology recommended tpA. Subsequent MRI brain wasnegative for stroke, CT angio was negative for hemodynamically significant stenosis in the head andneck. Echo with bubble study was negative for cardiac source of thrombus and negative for vegetations. - dual antiplatelet agents were discontinued as per Neurology ?? 3.?? New onset AFib - currently in NSR, HR is controlled -??Cardiology recommended metoprolol and digoxin and follow up??as outpatient - he is on Eliquis ?? 4.?? Urinary retention - patient was thought to have traumatic urinary catheterization and developed urinary retention then failed bladder training??so will be discharged with Nash and follow up with Urology - he is on tamsulosin ?? 5.?? Seizure like activity -??CT and MRI brain were negative for acute process - he was started on Keppra - patient has been scheduled for EEG on 04/10/22 - will follow up with Neurology ?? 6.?? MSSA and E faecalis bacteremia - patient is on Ancef until 04/10/22 ?? 7. COPD - stable on budesonide and Duoneb treatments ?? 8.?? HTN - controlled on lisinopril and metoprolol ?? 9.?? Pre-diabetes - on insulin sliding scale ?? 10.?? GI and DVT prophylaxis ?? 11.?? Full code ?? 12.?? Swing bed - over-all patient is improving and is for potential discharge on 04/10/22 which is last day of antibiotics ? Electronically signed by: MD Betsy, Ulises Bauman Signed on: 06-Apr-2022 11:48 PST * MD Omid, Kymberly: MODIFY, MODIFY, MODIFY, MODIFY, MODIFY, MODIFY, MODIFY, MODIFY, PERFORM Event Display: Hospitalist Progress Note Authored Date: Patient: SHERRON SURESH ? Age: 76 years?Legal Sex: MALE?: 1945 Date of Service 04/01/2022 11:22 PST Hospital Course 76 yo male with hx of HTN, HLD, tob abuse, COPD, pre-diabetes, s/p carotid endarterectomy 02/21/22 who is admitted to [facility] Swing bed for cont IV Abx therapy for MSSA Bacteremia with IV Ancef thru 04/10/22 and rehab for weakness after an acute hospitalization where he was treated for an acute CVA with tPA and he suffered a seizure and developed atrial fibrillation. Has a nash catheter for urine retention - has not had any problems with urination previously and no dx of prostate problems.?? 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 Pt is a full code. [facility]read[facility].?? Had his carotid stent placed there 02/21/22. His and stepson are at the bedside helping with history ( is 86 and stepson is 70); , Julián Rodriges, is surrogate decision maker.?? I reviewed notes, studies, and imaging reports from the outside facility [1] Subjective Is doing okay - cannot feel his bladder filling up, is okay to wait on taking out the nash cath. No pain in the knee - feeling back to normal Objective Vitals and Measurements T: 98.6 F HR: 91(Apical) HR: 91 RR: 20 BP: 138/79 SpO2: 95% O2 Delivery: Nasal cannula O2 Flow: 2L/min HT:??180.34 cm??WT:??86.3 kg??BMI:??26.54 kg/m2 Intake and Output??as of (24 hour periods starting at 06:00) ?? 04/01/22 03/31/22 03/30/22 Intake mL ?720 ? 2460 ? 2382 Output mL ?475 ? 3000 ? 3675 Fluid Balance ?245 ? -540 ?-1293 Physical Exam General Appearance: No acute distress. Cardiac: Normal sinus rhythm. No murmurs. Lungs: Clear to auscultation, diminished at bases Abdomen: Soft, non-distended, nontender, +BS Musculoskeletal: Lt knee - no pain with ROM, no edema/erythema Psychiatric: Alert and interactive Inpatient Medications Scheduled: albuterol-ipratrop 3-0.5 mg/3 mL Neb Soln ??3 mL, INH, Q6H7 apixaban 5 mg Tab ??5 mg 1 Tab, ORAL, BID atorvastatin 40 mg Tab ??80 mg 2 Tab, ORAL, DAILY budesonide 0.5 mg/2 mL, 2 mL Inhal Susp ??0.5 mg 2 mL, INH, Q12H ceFAZolin 2 g Inj ??2 gm 1 Vial, IVPB, O6U-Gdwgwrta cholecalciferol (D3) 25 mcg (1,000 IU) Tab ??25 mcg 1 Tab, ORAL, DAILY digoxin 0.125 mg Tab ??0.125 mg 1 Tab, ORAL, DAILY docusate sodium 100 mg Cap ??100 mg 1 Cap, ORAL, BID furosemide 20 mg Tab ??20 mg 1 Tab, ORAL, DAILY insulin regular (HumuLIN R) 100 units/mL, 3 mL MDV ??sliding scale, SUBQ, AC&Bed levETIRAcetam 500 mg Tab ??500 mg 1 Tab, ORAL, BID lisinopril 10 mg Tab ??10 mg 1 Tab, ORAL, DAILY magnesium Oxide 400 mg Tab ??400 mg 1 Tab, ORAL, BIDMEALS metoprolol tartrate 50 mg Tab ??50 mg 1 Tab, ORAL, BID nicotine 14 mg/day Patch ??14 mg 1 Patch, TOP, DAILY pantoprazole 40 mg EC Tab ??40 mg 1 Tab, ORAL, ACBkfst tamsulosin 0.4 mg Cap ??0.4 mg 1 Cap, ORAL, QBedtime ?? Continuous: ?? PRN: acetaminophen 500 mg Tab ??500 mg 1 ea, ORAL, Q6H albuterol-ipratrop 3-0.5 mg/3 mL Neb Soln ??3 mL, INH, Q4H7 Dextrose 50% Inj 50 mL Syr ??25 mL, IV, As directed Dextrose 50% Inj 50 mL Syr ??50 mL, IV, As directed glucagon 1 mg Inj SDV ??1 mg, SUBQ, As directed Glucose 40% Oral Gel 15 gm ??15 gm 37.5 mL, ORAL, As directed Milk of Magnesia 30 mL ??30 mL, ORAL, DAILY traMADol 50 mg Tab ??50 mg 1 Tab, ORAL, Q6H traMADol 50 mg Tab ??100 mg 2 Tab, ORAL, Q6H Lab Results ?? Labs All 24H ?Lab ?Results ?Date POCT - Glucose (Capillary)?? 119 mg/dL?? (HIGH)?? 04/01/22 11:03 PST Assessment/Plan _ Acute respiratory [...] active with PT (had 3 attempts at nash removal in [place]) - disc that may have to go home with nash and f/u w/outpt urology Orders: metoprolol (Metoprolol Tartrate), 50 mg, ORAL, BID, TAB, 03/30/22 21:00:00 PST naproxen (Naprosyn), 500 mg, ORAL, BID, NOW, TAB, 03/28/22 14:54:00 PST, 3 Day(s), Stop date 03/31/22 14:53:00 PST Basic Metabolic Panel BMP Bladder Training CBC w Differential Continue Nash Differential Automated* Occult Bld Stool FIT (Lab) Screen POC Glucose Panel POC Glucose Panel POC Glucose Panel POC Glucose Panel POC Glucose Panel POC Glucose Panel POC Glucose Panel POC Glucose Panel POC Glucose Panel POC Glucose Panel POC Glucose Panel POC Glucose Panel POC Glucose Panel Serum Indices ?? Disposition: Swing Bed Anticipated DC: once abx/rehab complete Place of DC:?? home wi/family with HHN/PT/OT [1]??Hospitalist Progress/SOAP Note; MD Anne Tasha 03/31/2022 14:40 PST Electronically signed by: MD Anne Tasha Signed on: 01-Apr-2022 21:03 PST Progress note * MD Morgan, Clayton: SIGN, VERIFY, PERFORM Event Display: Progress Note Authored Date: Patient: SHERRON SURESH Age: 76 years Legal [...] As directed, PRN, Blood Glucose, GEL, 03/27/22 8:30:00PST insulin regular Sliding Scale Med (Body wt [...] All Problems Anticoagulated by anticoagulation treatment / [id number] / Confirmed Bleeding / 090931964 / Provisional Blood sugar management / 8008397793 / Provisional Body mass index 30+ - obesity / 812763605 / Confirmed Current smoker / 661629053 / Confirmed Diabetes / 38201 / Confirmed Elevated serum cholesterol / [id number] / Confirmed Fall risk / 9667659533 / Provisional High blood pressure / [id number] / Confirmed Manage infection control / 5872260784 / Provisional Readiness for discharge / 9957191808 / Provisional TIA (transient ischemic attack) / [id number] / Confirmed Canceled: Activity intolerance / 561541867 Canceled: Anticoagulant monitoring / 457221225 Canceled: Blood sugar management / 6283384189 Canceled: Decreased cardiac output / 302628767 Canceled: Fall risk / 7641402833 Canceled: Knowledge deficit / 7015801043 Canceled: Readiness for discharge / 1152700828 Canceled: Skin integrity at risk / 7506537603, Active or Inactive Problems (5) Body mass index 30+ - obesity Diabetes Elevated serum cholesterol High blood pressure TIA (transient ischemic attack) Physical Examination Vital Signs (last 24 hrs) Last Charted Minimum Maximum Temp(??F) 98 (APR 10 07:45 PST) 97.9 (APR [...] bowel sounds. Genitourinary: No costovertebral angle tenderness, Nash in place . Musculoskeletal Normal range of [...] L 25.4 (MAR 31) L 25.3 (MAR 17) L 25.5 (MAR 16) Plt 368 (APR 10) 362 (MAR 31) 327 (MAR 29) 337 (MAR 16) Na 138 (APR 10) 138 (MAR 31) 136 (MAR 17) L 134 (MAR 16) K 3.9 (APR 10) 4.5 (MAR 31) 4.5 (MAR 17) 4.0 (MAR 16) CO2 29 (APR 10) 28 (MAR 31) 29 (MAR 29) 30 (MAR 16) Cl 101 (APR 10) 103 (MAR 31) L 100 (MAR 29) L 99 (MAR 16) Cr 1.0 (APR 10) 0.9 (MAR 31) 1.0 (MAR 17) 0.8 (MAR 16) BUN 17 (APR 10) 12 (MAR 31) 20 (MAR 17) 15 (MAR 16) Glucose Random 104 (APR 10) H 116 (MAR 31) 99 (MAR 17) H 121 (MAR 16) Mg 1.8 (APR 10) L 1.7 (MAR 28) Ca L 8.6 (APR 10) L 8.1 (FEB 19) L 8.2 (MAR 17) L 8.2 [...] outpatient, cont Eliquis. 4. Urinary retention: On Nash, Cont Bladder training with new parameters. Nurse informed for bladder scanning. Cont Flomax. 5. Seizure like activity: CT and MRI brain were negative for acute process, Cont Keppra, scheduled for EEG on today at [facility] with Dr. Cagle, will follow up with Neurology. 6. MSSA and E faecalis bacteremia: Cont Ancef until 04/10/22. Missed the dose last night, will restart and last dose tomorrow am. 7. COPD: Chronic, not on exacerbation, need O2 at night, Cont Budesonide and Duoneb treatments, mayneed Home O2 nocturnal. 8. HTN: Cont Lisinopril [...] Morgan, Clayton Signed on: 10-Apr-2022 10:01 PST * MD Morgan, Clayton: PERFORM, SIGN, VERIFY Event Display: Progress Note Authored Date: [id number] Patient: SHERRON SURESH Age: 76 years Legal Sex: Male : 1945 Author: MD Morgan, Clayton Basic Information No events, Review of Systems Constitutional: Weakness, Fatigue, Decreased activity. Eye: Negative. Ear/Nose/Mouth/Throat: Negative. Respiratory: Shortness of breath. Cardiovascular: Negative. Gastrointestinal: Negative. Genitourinary: Negative. Musculoskeletal: Joint pain. Integumentary: Negative. Neurologic: Negative. Psychiatric: Negative. Health Status Allergies: Allergic Reactions (Selected) NKA Current medications: (Selected) Inpatient Medications Ordered Ancef: 2 gm, IVPB, [id number]-Yxdipojk, Indication= Bacteremia / Fungemia, INJ, 03/26/22 20:00:00 [...] As directed, PRN, Blood Glucose, GEL, 03/27/22 8:30:00PST insulin regular Sliding Scale Med (Body wt [...] g Inj 2 gm 1 Vial, IVPB, T4Q-Ossqfdjb cholecalciferol (D3) 25 mcg (1,000 IU) Tab [...] All Problems Anticoagulated by anticoagulation treatment / 47835390 / Confirmed Bleeding / 960490575 / Provisional Blood sugar management / 1497060044 / Provisional Body mass index 30+ - obesity / 357803938 / Confirmed Current smoker / 463612459 / Confirmed Diabetes / 68840 / Confirmed Elevated serum cholesterol / [id number] / Confirmed Fall risk / 3084168243 / Provisional High blood pressure / [id number] / Confirmed Manage infection control / 8709000283 / Provisional Readiness for discharge / 6488166037 / Provisional TIA (transient ischemic attack) / [id number] / Confirmed Canceled: Activity intolerance / 611322790 Canceled: Anticoagulant monitoring / 388400233 Canceled: Blood sugar management / 5145792291 Canceled: Decreased cardiac output / 252849503 Canceled: Fall risk / 1374832987 Canceled: Knowledge deficit / 4839386859 Canceled: Readiness for discharge / 5379274648 Canceled: Skin integrity at risk / 1811000840, Active or Inactive Problems (5) Body mass index 30+ - obesity Diabetes Elevated serum cholesterol High blood pressure TIA (transient ischemic attack) Physical Examination Vital Signs (last 24 hrs) Last Charted Minimum Maximum Temp(??F) 98.4 (APR 09 08:15 PST) 97.8 (B 19:23 PST) 98.4 (APR 09 08:15 PST) [...] 08:15 PST) 1 (B 18:23 PST) 2 (B 17:55 PST) OXYDELIVERY Nasal cannula Room a [...] bowel sounds. Genitourinary: No costovertebral angle tenderness, Nash in place . Musculoskeletal Normal range of [...] (MAR 29) 7.40 (MAR 16) Hgb L 8.4 (MAR 31) L 8.4 (MAR 29) L 8.5 (MAR 16) Hct L 25.4 (MAR 31) L 25.3 (MAR 17) L 25.5 (MAR 16) Plt 362 (MAR 31) 327 (MAR 29) 337 (MAR 16) Na 138 (MAR 31) 136 (MAR 29) L 134 (MAR 16) K 4.5 (MAR 31) 4.5 (MAR 29) 4.0 (MAR 16) CO2 28 (MAR 31) 29 (MAR 29) 30 (MAR 28) Cl 103 (MAR 31) L 100 (MAR 29) L 99 (MAR 16) Cr 0.9 (MAR 31) 1.0 (MAR 29) 0.8 (MAR 16) BUN 12 (MAR 31) 20 (MAR 17) 15 (MAR 16) Glucose Random H 116 (MAR 31) 99 (MAR 17) H 121 (MAR 16) Mg L 1.7 (MAR 28) Ca L 8.1 (MAR 31) L 8.2 (MAR 29) L 8.2 (MAR 16) . Impression and [...] outpatient, cont Eliquis. 4. Urinary retention: On Nash, Cont Bladder training with new parameters. Nurse informed for bladder scanning. Cont Flomax. 5. Seizure like activity: CT and MRI brain were negative for acute process, Cont Keppra, scheduled for EEG on 04/10/22, will follow up with Neurology. 6. MSSA and E faecalis bacteremia: Cont Ancef until 04/10/22. 7. COPD: Chronic, not on exacerbation, need O2 at night, Cont Budesonide and Duoneb treatments, mayneed Home O2 nocturnal. 8. HTN: Cont Lisinopril and Metoprolol. 9. Pre-diabetes: Cont Insulin sliding scale. 10. HLD: Cont Lipitor 11. Smoking: Nicotine patch and counseling done. 12. 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 13. DVT, GI PPX 14. Code: Full 15. Dispo: In PT Swing Electronically signed by: MD Mora Mehdi Signed on: 09-Apr-2022 10:34 PST * MD Morgan Clayton: PERFORM, SIGN, VERIFY Event Display: Progress Note Authored Date: Patient: SHERRON SURESH Age: 76 years Legal Sex: Male : 1945 Author: MD Morgan, Clayton Basic Information No events, Review of Systems Constitutional: Weakness, Fatigue, Decreased activity. Eye: Negative. Ear/Nose/Mouth/Throat: Negative. Respiratory: Shortness of breath. Cardiovascular: Negative. Gastrointestinal: Negative. Genitourinary: Negative. Musculoskeletal: Joint pain. Integumentary: Negative. Neurologic: Negative. Psychiatric: Negative. Health Status Allergies: Allergic Reactions (Selected) NKA Current medications: (Selected) Inpatient Medications Ordered Ancef: 2 gm, IVPB, [id number], Indication= Bacteremia / Fungemia, INJ, 03/26/22 20:00:00 PST, Stop date 04/10/22 3:59:00 PST Dextrose 50% Inj 50 mL: = 25 mL, IV, As directed, PRN, Blood Glucose, INJ, 03/27/22 8:30:00 PST Dextrose 50% Inj 50 mL: = 50 mL, IV, As directed, PRN, Blood Glucose, INJ, 03/27/22 8:30:00 PST DuoNeb: = 3 mL, INH, Q4H7, PRN, Shortness of breath, [facility], 03/27/22 12:55:00 PST DuoNeb: = 3 mL, INH, Q6H7, [facility], 03/27/22 13:00:00 PST Eliquis: 5 mg, ORAL, [...] mL Inhal Susp: 0.5 mg, INH, Q12H, [facility], 03/27/22 13:00:00 PST cholecalciferol: 25 mcg, ORAL, [...] As directed, PRN, Blood Glucose, [facility], 03/27/22 8:30:00PST insulin regular Sliding Scale Med (Body wt [...] g Inj 2 gm 1 Vial, IVPB, [id number] cholecalciferol (D3) 25 mcg (1,000 IU) Tab [...] All Problems Anticoagulated by anticoagulation treatment / [id number] / Confirmed Bleeding / [id number] / Provisional Blood sugar management / [id number] / Provisional Body mass index 30+ - obesity / 145526100 / Confirmed Current smoker / [id number] / Confirmed Diabetes / 53265 / Confirmed Elevated serum cholesterol / [id number] / Confirmed Fall risk / [id number] / Provisional High blood pressure / [id number] / Confirmed Manage infection control / [id number] / Provisional Readiness for discharge / [id number] / Provisional TIA (transient ischemic attack) / [id number] / Confirmed, Active or Inactive Problems (5) Body mass index 30+ - obesity Diabetes Elevated serum cholesterol High blood pressure TIA (transient ischemic attack) Physical Examination Vital Signs (last 24 hrs) Last Charted Minimum Maximum Temp(??F) 98.4 (APR 08 07:26 PST) 98.4 (APR 07 19:17 PST) 98.4 (APR 07 19:17 PST) Heart Rate 75 (APR 08 16:03 PST) 66 (APR 08 07:05 PST) 92 (APR 07 19:17 PST) Resp Rate 18 (APR 08 16:03 PST) 18 (APR 08 07:10 PST) 20 (B 19:00 PST) SBP 120 (APR 08 16:03 PST) 120 (B 16:03 PST) 134 (B 19:17 PST) DBP [...] Weight measured method Bed scale 04/07/2022 06:40 [facility] Weight (kg) 87.0 kg Weight measured method Bed scale General: Alert and oriented, No acute distress. Eye: Extraocular movements are intact. HENT: Normocephalic. Neck: Supple. Respiratory: Rales and coarse BL, decrease BS bases . Cardiovascular: Normal rate, Regular rhythm, Diastolc Murmur. Gastrointestinal: Soft, Non-tender, Non-distended, Normal bowel sounds. Genitourinary: No costovertebral angle tenderness, Nash in place . Musculoskeletal Normal range of [...] outpatient, cont Eliquis. 4. Urinary retention: On Nash, start Bladder training with new parameters. Nurse informed for bladder scanning. Cont Flomax. 5. Seizure like activity: CT and MRI brain were negative for acute process, Cont Keppra, scheduled for EEG on 04/10/22, will follow up with Neurology. 6. MSSA and E faecalis bacteremia: Cont Ancef until 04/10/22. 7. COPD: Chronic, not on exacerbation, need O2 at night, Cont Budesonide and Duoneb treatments, mayneed Home O2 nocturnal. 8. HTN: Cont Lisinopril and Metoprolol. 9. Pre-diabetes: Cont Insulin sliding scale. 10. HLD: Cont Lipitor 11. Smoking: Nicotine patch and counseling done. 12. 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 13. DVT, GI PPX 14. Code: Full 15. Dispo: In PT Swing Electronically signed by: MD Mora Mehdi Signed on: 08-Apr-2022 19:13 [facility] Discharge summary * MD Mora Mehdi: PERFORM, MODIFY, SIGN, VERIFY Event Display: Discharge Summary Authored Date: Patient: SHERRON SURESH Age: 76 years Legal Sex: Male : 1945 Author: MD Mora Mehdi Basic Information Documented by: Attending Physician. Discharge Information Discharge Information: Admit Date: 03/26/22 17:18 Discharge Date: 04/11/22 Reason For Visit: SWING BED Discharge Location: Home Physicians Involved With Care ? Admitting: ? MD Omid, Kymberly ? Attending: ? MD Omid, Kymberly ? Primary Care: ? NONE, . Conditions Present on Admission: DIagnosis/Condition: [...] ischemic attack) (Personal history of transient ischemic attack(TIA), and cerebral infarction without residual deficits) ?Urinary [...] ischemic attack) (Personal history of transient ischemic attack(TIA), and cerebral infarction without residual deficits) ?Urinary catheter present (Presence of urogenital implants) ?Urine retention (Retention of urine, unspecified) ?Atrial fibrillation with RVR (Unspecified atrial fibrillation) ?Seizure (Unspecified convulsions) ?MSSA bacteremia (Bacteremia) ?Generalized weakness (Weakness) . Allergies: Allergic Reactions (Selected) NKA. 76 yo male with hx of HTN, HLD, tob abuse, COPD, pre-diabetes, s/p carotid endarterectomy 02/21/22 who is admitted to [facility] Swing bed for cont IV Abx therapy for MSSA Bacteremia with IV Ancef thru 04/10/22 and rehab for weakness after an acute hospitalization where he was treated for an acute CVA with tPA and he suffered a seizure and developed atrial fibrillation. Has a nash catheter for urine retention - has not had any problems with urination previously and no dx of prostate problems. Seen by Dr. Cagel neurology on 04/10/22 and recommended to continue [...] outpatient, cont Eliquis. 4. Urinary retention: On Nash, Cont Bladder training with new parameters. Nurse informed for bladder scanning. Cont Flomax. 5. Seizure like activity: CT and MRI brain were negative for acute process, Cont Keppra, scheduled for EEG on today at [facility] with Dr. Cagle, will follow up with Neurology. 6. MSSA and E faecalis bacteremia: Cont Ancef until 04/10/22. Missed the dose last night, will restart and last dose tomorrow am. 7. COPD: Chronic, not on exacerbation, need O2 at night, Cont Budesonide and Duoneb treatments, mayneed Home O2 nocturnal. 8. HTN: Cont Lisinopril and Metoprolol. 9. Pre-diabetes: Cont Insulin sliding scale. 10. HLD: Cont Lipitor 11. Smoking: Nicotine patch and counseling done. 12. 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 13. Anemia: Hgb stable and improving, no sign of bleed. Laboratory Results: Lab Results ST Selected Lab Results Lab ?? Results ?? Normalcy ?? Date WBC ?? 9.20 K/mm3 ?? Normal ?? 04/10/22 05:25 HGB ?? 9.5 gm/dL ?? Low ?? 04/10/22 05:25 HCT ?? 29.0 % ?? Low ?? 04/10/22 05:25 PLT ?? 368 K/mm3 ?? Normal ?? 04/10/22 05:25 Sodium Level ?? 138 mmol/L ?? Normal ?? 04/10/22 05:25 Chloride Level ?? 101 mmol/L ?? Normal ?? 04/10/22 05:25 Potassium Level ?? 3.9 mmol/L ?? Normal ?? 04/10/22 05:25 BUN ?? 17 mg/dL ?? Normal ?? 04/10/22 05:25 Creatinine ?? 1.0 mg/dL ?? Normal ?? 04/10/22 05:25 AST ?? 13 IntUnit/L ?? Low ?? 04/10/22 05:25 ALT ?? 6 IntUnit/L ?? Low ?? 04/10/22 05:25 Calcium Level ?? 8.6 mg/dL ?? Low ?? 04/10/22 05:25 Magnesium Level ?? 1.8 mg/dL ?? Normal ?? 04/10/22 05:25 Albumin Level ?? 2.9 gm/dL ?? Low ?? 04/10/22 05:25 CO2/Carbon Dioxide ?? 29 mmol/L ?? Normal ?? 04/10/22 05:25 Glucose, Random ?? 104 mg/dL ?? Normal ?? 04/10/22 05:25 , Unresulted Labs/Orders ST Results [...] Signs (last charted) Pulse:?78?(04/11 08:38)?Pulse Ox:?93?(04/11 08:17) BP:?127/66?(04/11 08:17)?Ox Delivery:?Room air Temperature:?97.9 F (36.6 C) ??(04/11 08:17)?Ox %/FiO2:?21?(04/11 07:33) Respiration:?18?(04/11 08:17)?FiO2 set:?Not Charted Pain Intensity Level:?6?(04/11 08:38) Measurements (last charted) ? Weight: ? [...] bowel sounds. Genitourinary: No costovertebral angle tenderness, Nash in place . Musculoskeletal Normal range of [...] signed by: MD Morgan, Clayton Signed on: 02-Mar-2023 11:25 PST XR Knee - right 2 Views * MD Dinesh, Sandeep Quan: VERIFY, VERIFY Event Display: Report EXAMINATION: Knee Rt 2 Vw CLINICAL HISTORY: [...] Sandeep Montiel on 03/28/2022 12:51 PM Final Lower Ext Vein Duplex Rt * MD Lowery Arthur Byron: VERIFY, VERIFY Event Display: Report EXAM: Right extremity venous duplex study CLINICAL INDICATION: Swelling COMPARISON: None TECHNIQUE: Venous duplex evaluation performed using 4 MHz transducer. Sagittal and axial berry scaleand color Doppler images, including compression images, obtained of the right common femoral, femoral, popliteal, posterior tibial veins. Spectral wave forms from the segments also recorded. FINDINGS: No DVT IMPRESSION: 1. Normal Signed by: Chapo Lowery on 03/28/2022 6:21 AM Final Patient Care team information Care Team Personnel Name: MD MARTHA Position: Physician Optimized Member Role: Primary Care Physician Care Team Related Persons Name: SERGIO Kenney Address: [facility] Name: MARIO SURESH Address: [facility] Name: JULIÁN RODRIGES Address: [facility] Name: PATRICIA RODRIGES Address: [place]
--- OUTSIDE RECORDS SUMMARY | 2024-02-18 04:11 | XMS_ITS | Encounter Summary ---
Author Organization [employer] Care Team Providers Care Buildings And Grounds Director Name Role Phone Provider, Unknown Primary Care Provider Unavaila ble Encounter Details Date Type Department Care Team (Latest Contact Info) Description 01/25/2024 Travel Social History Tobacco Use Types Packs/Day Years Used Date Smoking Tobacco: Never Assessed [facility] Utilities Answer Date Recorded In the past 12 months has [employer], gas, oil, or water [employer] threatened to shut off services in your [...] 01/25/2024 How often do you attend chur or confucianism services? Patient unable to answer 01/25/2024 Do you belong to any clubs o r organizations such as uatsdin groups, unions, fraternal or athletic groups, or [...] you are drinking? Patient unable to answer 12/15/202 4 Q3: How often do you have si x or more drinks on one occasion? Patient unable to answer 01/25/2024 Overall Financial Resource Strain (CARDIA) Answe r Date Recorded How hard is it for you to pa y for the very basics like food, housing, medical care, and heating? Patient unable to answer 01/25/2024 [facility] - Occupational Stress Questionnaire Answer Date Recorded [...] any time in the past 12 m [facility], were you homeless or living in a skilled nursing (including now)? Patient unable to answer 01/25/2024 Sex and Gender Information Value Date Recorded Sex Assigned at Not on file Legal Sex Male 11:18 AM [employer] Gender Identity Not on file Sexual Orientation Not on file documented as of this encounter Functional Status * Audit-C Score Answer Date of Assessment Author -1 01/25/2024 5:07 PM Adelaide Birmingham RN * Question Answer Date of Assessment Author Q1: How often do you have a drink containing alcohol? Patient unable to answer 01/25/2024 5:07 PM Gail Birmingham RN Q2: How many drinks containing alcohol do you have on a typical day when you are drinking? Patient unable to answer 01/25/2024 5:07 PM Gail Birmingham RN Q3: How often do you have six or more drinks on one occasion? Patient unable to answer 01/25/2024 5:07 PM Gail Birmingham RN documented as of this encounter Plan of Treatment Not on file documented as of this encounter Visit Diagnoses Not on filedocumented in this encounter Additional Health Concerns Infection Onset Date Last Indicated Resolved Time COVID - 19 01/25/2024 01/25/2024 01/25/2024 12:5 8 PM [employer] documented as of this encounter Care Teams Buildings And Grounds Director Relationship Specialty Start Date End Date Provider, Unknown UNKNOWN PCP - General 01/25/24 documented as of this encounter
--- OUTSIDE RECORDS SUMMARY | 2024-02-18 04:11 | XMS_ITS | Encounter Summary ---
Author Organization [facility] Address [address] [place] [address] Phone Care Team Providers Care Hose Inspector And Patcher Name Role Phone Provider, Unknown Primary Care Provider Unavaila ble Reason for Visit * Reason Comments Altered Mental Status * Auth/Cert (Routine) Specialty Diagnoses / Procedures Referred By Contac t Referred To Contact Diagnoses Seizure (HCC) Altered mental status Acute respiratory failure with hypoxia and hypercapnia (HCC) Pneumonia due to infectious organism, unspecified laterality, unspecified part of lung Cardiopulmonary arrest with successful resuscitation (HCC) Gagan Montiel MD [address] [place] [address] Phone: tel: fax: Referral ID Status Reason Start Date Expiration Date Visits Re quested Visits Authorized [id number] 1 1 Encounter Details Date Type Department Care Team (Latest Contact Info) Description 01/25/2024 11:18 AM FORMS DESIGNER - 02/09/2024 6:35 PM FORMS DESIGNER Hospital Encounter [facility] Medical/Surgical Intensive Care [address] [place] [id number] Ta Reyes MD [address] [place] [address] Gagan Montiel MD [address] [place] [address] April Walton MD [address] [place] [address] Ector Carroll MD [address] [place] [address] Cardiopulmonary arrest with successful resuscitation (HCC) Discharge Disposition: Discharged/Transferred to Rehab Facility (IRF)/Unit Social History Tobacco Use Types Packs/Day Years Used Date Smoking Tobacco: Former Cigarettes [facility] Utilities Answer Date Recorded In [...] How often do you attend chur or uatsdin services? Patient unable to answer 01/25/2024 Do you belong to any clubs o r organizations such as cheondoism groups, unions, fraternal or athletic groups, or [...] and heating? Patient unable to answer 01/25/2024 [place] [employer] - Occupational Stress [...] any time in the past 12 m [facility], were you homeless or living in a long term (including now)? Patient unable to answer 01/25/2024 Sex and Gender Information Value Date Recorded Sex Assigned at Not on file Legal Sex Male 11:18 AM FORMS DESIGNER Gender Identity Not on file Sexual Orientation Not on file documented as of this encounter Last Filed Vital Signs Vital Sign Reading Time Taken Comments Blood Pressure 133/73 02/09/2024 6:00 PM FORMS DESIGNER Pulse 90 02/09/2024 6:00 PM FORMS DESIGNER Temperature 37 ??C (98.6 ??F) 02/09/2024 7:00 AM FORMS DESIGNER Respiratory Rate 23 02/09/2024 6:00 PM FORMS DESIGNER Oxygen Saturation 100% 02/09/2024 6:00 PM FORMS DESIGNER Inhaled Oxygen Concentration - - Weight 70.4 kg (155 lb 3.2 oz) 02/09/2024 6:00 A M FORMS DESIGNER Height 177.8 cm (5' 10 ) 01/25/2024 5:06 PM FORMS DESIGNER Body Mass Index 22.27 01/25/2024 5:06 PM FORMS DESIGNER documented in this encounter Functional Status * Audit-C Score Answer Date of Assessment Author -1 01/25/2024 5:07 PM FORMS DESIGNER Adelaide Lopez RN * Question Answer Date of Assessment [...] [place] RN documented as of this encounter Discharge Summaries * Ector Carroll MD - 02/09/2024 12:34 PM CST Images from the original note were not included. [facility] DISCHARGE SUMMARY Name: Papito Joseph Age: 78 y.o. : 1945 Attending Physician: Ector Carroll MD Admission Date/Time: 01/25/2024 Discharge Date: 02/09/2024 Primary Care Physician: UNKNOWN PROVIDER Discharging Provider: Ector Carroll MD INSTRUCTIONS FOR PHYSICIANS ON FOLLOW UP AFTER DISCHARGE: Follow-up Information Follow up With Specialties Details Why Contact [facility] Rehabilitation Follow up on 02/09/2024 Discharge Instructions: Discharge Condition: improved Disposition: Rehab Diet: Cardiac Diet Activity: activity as tolerated Discharge Diagnoses: Cardiopulmonary arrest, severe aortic stenosis Present on Admission: Cardiopulmonary arrest with successful resuscitation (HCC) Seizures (HCC) SD (myocardial infarction) (HCC) CVA (cerebral vascular accident) (HCC) COPD (chronic obstructive pulmonary disease) (HCC) BPH (benign prostatic hyperplasia) A-fib (HCC) Aortic valve stenosis Mitral valve stenosis Chronic diastolic heart failure (HCC) CAD (coronary artery disease) TIA (transient ischemic attack) HLD (hyperlipidemia) Pulmonary HTN (HCC) DM type 2 (diabetes mellitus, type 2) ([facility]) Admitting Diagnoses: Cardiopulmonary arrest HOSPITAL COURSE: Papito Joseph was admitted 01/25/2024 with cardiac and respiratory arrest and resuscitation. The patient remained intubated and on the ventilator for few days was could be finally extubated. The patient had sepsis associated with pneumonia on admission and was treated with broad-spectrum antibiotics. He had a non ST-elevation SD and was also found to have a severe aortic stenosis with an aorticvalve area of 0.8. He has a preserved left ventricular ejection fraction and consequently decision was made to have additional cardiac workup with a cardiac catheterization and cardio dynamic evaluation after he gets a few days of rehabilitation and becomes stronger. The patient has an issue with aspiration into airways. He has been constantly aspirating with thin liquids and this should be avoided and he should remain on aspiration precaution would at least a nectar thick liquid regimen. Additional speech therapy can be done at the facility. The patient has been having acute metabolic encephalopathy as well but this is overall getting better and was associated with hypoxia at the latest episode. Has to be on oxygen supplementation and has to be monitored to keep the oxygen in place as what he gets hypoxic, it may take him several minutes to recover and he becomes encephalopathic as well. He has a chronic indwelling Blankenship catheter associated with a history of urinary retention. In summary the patient will be sent to the rehabilitation facility for post acute care rehabilitation. The goal would be to get him stronger so that he would be able to tolerate additional cardiac workup probably receive a TAVR in the near future. Surgeries performed during stay: * No surgery found * Consults: Treatment Team: Consulting Physician: Robinson Robison MD Code status at discharge: Full code Exam Day of Discharge: Temp Av.8 ??F (36.6 ??C) Min: 97.4 ??F (36.3 ??C) Max: 98.6 ??F (37 ??C) BP Min: 102/58 Max: 135/76 Pulse Av.8 Min: 74 Max: 103 Heart Rate (Monitor) Av.1 Min: 75 Max: 104 Resp Av.8 Min: 16 Max: 25 SpO2 Av.6 % Min: 85 % Max: 100 % O2 Flow Rate (l/min): 3 l/min Body mass index is 22.27 kg/m??. Exam: General: Well developed, well nourished, in no distress, lying in the bed Skin: Normal appearance, decreased turgor, no rashes HEENT: Normocephalic, atraumatic, no flaring Eyes: nonicteric, intact extra occular movement, PERRL Neck: normal, supple, no lymphadenopathy Cardiovascular: regular rate and rhythm, S1, S2 normal, no murmur, click, rub or gallop Lungs: Coarse breath sounds, humid and minimally productive cough, normal respirations, normal precautions Abdominal: soft, non-tender; bowel sounds normal; no masses, no organomegaly : external genitalia normal in appearance Musculoskeletal: no deformities, joint mobility appears intact, no clubbing Neuro: Non-focal, CN intact, sensory and motor intact, is having his oxygen on Psychological: alert and oriented X3, appropriate mood and affect, Intact judgement and memory although he had an additional episode of agitation overnight Lab / Imaging Review: Lab Results Component Value Date WBC 9.15 02/09/2024 HEMOGLOBIN 8.9 (L) 02/09/2024 PLATELETCNT 400 02/09/2024 MCV 92.6 02/09/2024 Lab Results Component Value Date SODIUM 142 02/09/2024 POTASSIUM 3.2 (L) 02/09/2024 CHLORIDE 102 02/09/2024 CO2VEN 35 (H) 02/09/2024 ANIONGAP 8.2 02/09/2024 GLUCOSE 106 (H) 02/09/2024 BUN 15 02/09/2024 CREATININE 0.74 02/09/2024 BCRATIO8 20 02/09/2024 TOTALPROTEIN 6.4 02/08/2024 ALBUMIN 3.0 (L) 02/08/2024 CALCIUM 8.6 (L) 02/09/2024 TBIL 0.5 02/08/2024 SGOTAST 12 02/08/2024 SGPTALT 9 02/08/2024 ALKALINEPHO 107 02/08/2024 GFRNA >60 02/09/2024 GFRA >60 02/09/2024 Lab Results Component Value Date GLUCOSEPOCT 131 (H) 02/05/2024 Lab Results Component Value Date INR 1.2 01/25/2024 PTP 15.1 (H) 01/25/2024 Lab Results Component Value Date HGBA1C 5.6 01/25/2024 Lab Results Component Value Date CPK 407 (H) 01/26/2024 Lab Results Component Value Date PHARTERIAL 7.38 02/08/2024 PO2ART 125 (H) 02/08/2024 PEI5NOL 55 (H) 02/08/2024 O2ART 98 02/08/2024 Lab Results Component Value Date LACTICA 0.7 02/07/2024 XR CHEST SINGLE VIEW PORTABLE Result Date: 02/08/2024 IMPRESSION: Worsening CHF with bilateral pleural effusions. XR SMALL BOWEL FOLLOW THROUGH Result Date: 02/07/2024 IMPRESSION: Normal small bowel follow through exam. No evidence of bowel obstruction XR ABDOMEN KUB FLAT PLATE Result Date: 02/07/2024 IMPRESSION: Nasogastric tube tip and side hole project over the gastric fundus. Bilateral lower lobe pneumonia and small pleural effusions. XR ABDOMEN KUB FLAT PLATE Result Date: 02/07/2024 IMPRESSION: High NG tube. Recommend advancing at least 12 cm. Findings were discussed with SABRINA Kim, at 04:46 on 02/07/[address] ABDOMEN PELVIS W/ CONTRAST Result Date: 02/06/2024 IMPRESSION: Marked stool debris throughout the entire colon with some gas distention of sigmoid colon. Findings suggest stool impaction. Thjc-rj-[id number] distention of small bowel loops in the pelviswith some additional decompressed small bowel distally. This [...] clinical factors. Blankenship catheter in the bladder. XR ABDOMEN KUB FLAT PLATE Result Date: 02/06/2024 IMPRESSION: Moderate to large amount of retained fecal debris in the colon, which is concerning forconstipation. Mild dilatation of the small bowel measuring up to 3.7 cm, which may be related to ileus, however developing small- bowel obstruction can not be entirely excluded. Follow-up with serial r adiographs versus CT is recommended as clinically indicated. Findings were discussed with patient'snurseKaci RN, by Dr. Contreras at 13:21 hours on 02/06/2024 . XR SWALLOWING FUNCTION STUDY WITH VIDEO/CINE Result Date: 02/05/2024 IMPRESSION: Aspiration, as detailed above. Please correlate with Speech Pathology report. XR CHEST SINGLE VIEW PORTABLE Result Date: 02/03/2024 IMPRESSION: Small slightly increased left pleural effusion. Stable small right pleural effusion. Stable left lower lung atelectasis or airspace disease. XR CHEST SINGLE VIEW PORTABLE Result Date: 01/30/2024 IMPRESSION: Small right pleural effusion slightly increased. Unchanged trace left effusion. Unchanged diffuse interstitial thickening and hazy opacities may be due to slightly worsened pulmonary edema or infection. Removal of endotracheal and gastric tubes. XR CHEST SINGLE VIEW PORTABLE Result Date: 01/28/2024 IMPRESSION: Worsening bibasilar infiltrates and effusions. Support devices as above. No pneumothorax. XR CHEST SINGLE VIEW PORTABLE Result Date: 01/27/2024 IMPRESSION: Small right pneumothorax similar to previous exam. Atelectasis and infiltrates left lower lung. ETT about 2 cm above the rolando. NG tube is not well seen. XR CHEST SINGLE VIEW PORTABLE Result Date: 01/26/2024 IMPRESSION: Small right pneumothorax. Hypoventilatory chest with bibasilar atelectasis and small left effusion. Endotracheal and enteric tubes in place. Findings were discussed with Elsa Weaver RN, at 06:33 on 01/26/[address] CHEST, ABDOMEN, PELVIS WITHOUT CONTRAST Result Date: 01/25/2024 IMPRESSION: Large amount of debris in the left mainstem bronchus extending into the other bronchi in the left lung. Severe emphysema. Patchy consolidation at both lung bases, worse on the left. Pneumonia is a definite consideration. Small bilateral pleural effusions, cause unknown. Severe atherosclerosis. CTA STROKE HEAD AND NECK Result Date: 01/25/2024 IMPRESSION: CAROTID CTA: No carotid or vertebral stenosis. INTRACRANIAL CTA: Normal. CT HEAD OR BRAIN WO CONTRAST Result Date: 01/25/2024 IMPRESSION: No acute intracranial abnormality. XR CHEST SINGLE VIEW PORTABLE Result Date: 01/25/2024 IMPRESSION: 1. Endotracheal tube in place. Distal tip is approximately 4 cm above the level of the rolando. Nasogastric tube is visualized coursing into the upper abdomen distal tip overlies the epigastric region. 2. Diffuse interstitial prominence within both lungs, with patchy opacities in the bases. Small effusions. 3. There are air-filled somewhat dilated loops of bowel suggested within the upper abdomen as well as some subtle lucency in the right upper quadrant, which is limited in assessment on this study. This may reflect artifact overlying the patient. The potential for free air can not be excluded. Correlate with clinical exam findings. Abdominal radiographs and or CT abdomen/pelvisrecommended for further assessment. Findings were conveyed to MELVIN Yi via phone call at 1:01p.m. on 01/25/2024 CT STROKE HEAD WO CONTRAST Result Date: 01/25/2024 IMPRESSION: No acute intracranial abnormality. Results called to ordering provider at the time of image interpretation. Pending results: None DISCHARGE MEDICATION LIST: Medication List START taking these medications aspirin 81 MG Chew Take 1 Tablet by mouth daily. Start taking on: February 10, 2024 lacosamide 100 MG Tabs Commonly known as: VIMPAT Take 1 Tablet by mouth 2 times daily. Lidocaine 4 % Ptch 1 Patch by Transdermal route nightly. nicotine 21 MG/24HR Pt24 Commonly known as: NICODERM CQ 1 Patch by Transdermal route daily as needed (smoking cessation). polyethylene glycol 17 g Pack Commonly known as: GLYCOLAX, MIRALAX Take 1 Packet by mouth daily. Dissolve in 4-8 oz of liquid. Indications: Constipation predniSONE 10 MG Tabs Commonly known as: DELTASONE Take 1 Tablet by mouth daily (with breakfast) for 3 days, THEN 0.5 Tablets daily (with breakfast) for 3 days. Start taking on: February 10, 2024 QUEtiapine Fumarate 50 MG Tabs Commonly known as: SEROquel Take 1 Tablet by mouth nightly. Torsemide 40 MG Tabs Take 40 mg by mouth every morning. Start taking on: February 10, 2024 CHANGE how you take these medications LevETIRAcetam 1000 MG Tabs Commonly known as: KEPPRA Take 1 Tablet by mouth 2 times daily. What changed: medication strength how much to take CONTINUE taking these medications * albuterol 108 (90 Base) MCG/ACT Aers Commonly known as: PROVENTIL HFA, VENTOLIN HFA * albuterol (2.5 MG/3ML) 0.083% Nebu Commonly known as: PROVENTIL, VENTOLIN apixaban 5 MG Tabs Commonly known as: ELIQUIS atorvastatin 80 MG Tabs Commonly known as: LIPITOR budesonide-formoterol fumarate 160-4.5 MCG/ACT Aero Commonly known as: SYMBICORT ferrous sulfate 325 (65 Fe) MG Tabs finasteride 5 MG Tabs Commonly known as: PROSCAR fluticasone-salmeterol 250-50 MCG/ACT Aepb Commonly known as: ADVAIR melatonin 3 MG Tabs oxybutynin 5 MG Tab-sr-24hr Commonly known as: DITROPAN-XL pantoprazole 40 MG Tbec Commonly known as: PROTONIX potassium chloride SA 20 MEQ Mob-whjc-frf Commonly known as: KLORCON M senna-docusate 8.6-50 MG Tabs Commonly known as: SENOKOT S tiotropium-olodaterol 2.5-2.5 MCG/ACT Aers Commonly known as: STIOLTO RESPIMAT traMADol 50 MG Tabs Commonly known as: ULTRAM Vitamin D3 1000 UNIT Tabs * This list has 2 medication(s) that are the same as other medications prescribed for you. Read thedirections carefully, and ask your doctor or other care provider to review them with you. STOP taking these medications furosemide 40 MG Tabs Commonly known as: LASIX lisinopril 10 MG Tabs Commonly known as: PRINIVIL, ZESTRIL Where to Get Your Medications Information about where to get these medications is not yet available Ask your nurse or doctor about these medications aspirin 81 MG Chew lacosamide 100 MG Tabs LevETIRAcetam 1000 MG Tabs Lidocaine 4 % Ptch nicotine 21 MG/24HR Pt24 polyethylene glycol 17 g Pack predniSONE 10 MG Tabs QUEtiapine Fumarate 50 MG Tabs Torsemide 40 MG Tabs I have spent time coordinating care for this hospital discharge: Greater than 30 minutes spent in coordinating care Thank you very much for allowing the [facility] Adult Hospitalist Service to participate in the care of this patient. If you have any questions, please don't hesitate to call. Signed: Ector Carroll MD, 02/09/2024, 12:34 PM FORMS DESIGNER S DESIGNER documented in this encounter Discharge Instructions * Attachments The following attachments cannot be sent through Care Everywhere. * Aortic Valve Stenosis (Cymraes) documented in this encounter Medications at Time of Discharge albuterol (PROVENTIL, VENTOLIN) (2.5 MG/3ML) 0.083% Nebulizer Soln 2.5 mg by Nebulization route every 6 hours as needed for Shortness of Breath. albuterol 108 (90 Base) MCG/ACT Aerosol Solution take 1 Puff by inhalation every 6 hours as needed for Wheezing. 09/09/2023 apixaban (ELIQUIS) 5 MG Tablet Take 5 mg by mouth 2 times daily. 05/04/2023 aspirin 81 MG Chewable Tablet Take 1 Tablet by mouth daily. 02/10/2024 atorvastatin (LIPITOR) 80 MG Tablet Take 1 Tablet by mouth every evening. 02/12/2023 ferrous sulfate 325 (65 Fe) MG TabletIndication s:Iron Deficiency Take 325 mg by mouth three times a week. Indications: Iron Deficiency finasteride (PROSCAR) 5 MG Tablet Take 5 mg by mouth daily. 05/29/2023 fluticasone-salm eterol (ADVAIR) 250-50 MCG/ACT AEROSOL POWDER, BREATH ACTIVATED take 1 Puff by inhalation 2 times daily. 11/28/2023 lacosamide (VIMPAT) 100 MG TabletIndication s:Seizure (HCC) Take 1 Tablet by mouth 2 times daily. 60 Tablet 02/09/2024 levETIRAcetam (KEPPRA) 1000 MG Tablet Take 1 Tablet by mouth 2 times daily. 60 Tablet 02/09/2024 Lidocaine 4 % Patch 1 Patch by Transdermal route nightly. 30 Patch 02/09/2024 melatonin 3 MG TabletIndication s:Insomnia Take 5 mg by mouth nightly as needed for Other. Indications: Trouble Sleeping nicotine (NICODERM CQ) 21 MG/24HR PATCH 24 HR 1 Patch by Transdermal route daily as needed (smoking cessation). 30 Patch 02/09/2024 oxybutynin (DITROPAN-XL) 5 MG TABLET SR 24 HR Take 5 mg by mouth daily. 12/26/2023 pantoprazole (PROTONIX) 40 MG Tablet Delayed Response Take 40 mg by mouth daily. 10/23/2023 polyethylene glycol (GLYCOLAX, MIRALAX) 17 g PackIndications: Constipation Take 1 Packet by mouth daily. Dissolve in 4-8 oz of liquid. Indications: Constipation 90 Packet 02/09/2024 potassium chloride SA (KLORCON M) 20 MEQ Tablet Controlled Release Take 10 mEq by mouth daily. 04/01/2023 QUEtiapine (SEROquel) 50 MG Tablet Take 1 Tablet by mouth nightly. 180 Tablet 02/09/2024 senna-docusate (SENOKOT S) 8.6-50 MG Tablet Take 1 Tablet by mouth 2 times daily. 04/30/2023 tiotropium-oloda terol (STIOLTO RESPIMAT) 2.5-2.5 MCG/ACT Aerosol Solution take 2 Puffs by inhalation daily. 09/09/2023 torsemide 40 MG Tablet Take 40 mg by mouth every morning. 90 Tablet 02/10/2024 traMADol (ULTRAM) 50 MG Tablet Take 50 mg by mouth 2 times daily as needed for Moderate or more severe pain. 10/23/2023 Vitamin D3 (cholecalciferol ) 1000 UNIT TabletIndication s:Vitamin D Deficiency Take 25 mcg by mouth daily. Indications: Vitamin D Deficiency predniSONE (DELTASONE) 10 MG Tablet Take 1 Tablet by mouth daily (with breakfast) for 3 days, THEN 0.5 Tablets daily (with breakfast) for 3 days. 5 Tablet 02/10/2024 5 documented as of this encounter Progress Notes * Ector Carroll MD - 02/08/2024 8:56 AM CST [facility] INPATIENT DAILY PROGRESS NOTE Papito Joseph is a 78 y.o. male at Hospital LOS: 13 days Subjective: Interval History: The patient took his oxygen off overnight accidentally and became very hypoxic. He was transferred to the intensive care unit with the initial intention of intubating him and putting him on the ventilator. Secondarily however he is oxygenation got better as soon as 2-3 L of oxygen per nasal cannulawas put on him. I emphasized the necessity of keeping the oxygen in place. Otherwise he is doing better. We are still waiting for insurance authorization for transferring him to acute rehabilitation. Review of Systems: A 14 point comprehensive review of systems was negative except what is documented in interval history above. The patient had a soapsuds enema yesterday and his bowels moved Objective: Exam: General: Well developed, well nourished, in no distress, lying in the bed Skin: Normal appearance, decreased turgor, no rashes HEENT: Normocephalic, atraumatic, no flaring Eyes: nonicteric, intact extra occular movement, PERRL Neck: normal, supple, no lymphadenopathy Cardiovascular: regular rate and rhythm, S1, S2 normal, no murmur, click, rub or gallop Lungs: Coarse breath sounds, humid and minimally productive cough, normal respirations, normal precautions Abdominal: soft, non-tender; bowel sounds normal; no masses, no organomegaly : external genitalia normal in appearance Musculoskeletal: no deformities, joint mobility appears intact, no clubbing Neuro: Non-focal, CN intact, sensory and motor intact, is having his oxygen on Psychological: alert and oriented X3, appropriate mood and affect, Intact judgement and memory although he had an additional episode of agitation overnight Current Medications: No recently discontinued medications to reconcile Medication Modifications: I will discontinue the antibiotics and will start switching the steroids to oral. We will also switch the rest of the medications to oral when an equivalent is available Lab Results: Lab Results Component Value Date PHARTERIAL 7.38 02/08/2024 PO2ART 125 (H) 02/08/2024 [id number] 55 (H) 02/08/2024 O2ART 98 02/08/2024 Lab Results Component Value Date WBC 12.08 (H) 02/08/2024 HEMOGLOBIN 9.5 (L) 02/08/2024 PLATELETCNT 411 02/08/2024 MCV 94.7 02/08/2024 Lab Results Component Value Date SODIUM 146 (H) 02/08/2024 POTASSIUM 3.5 02/08/2024 CHLORIDE 106 02/08/2024 CO2VEN 30 02/08/2024 ANIONGAP 13.5 02/08/2024 GLUCOSE 168 (H) 02/08/2024 BUN 16 02/08/2024 CREATININE 0.73 02/08/2024 BCRATIO8 22 (H) 02/08/2024 TOTALPROTEIN 6.4 02/08/2024 ALBUMIN 3.0 (L) 02/08/2024 CALCIUM 8.8 02/08/2024 TBIL 0.5 02/08/2024 SGOTAST 12 02/08/2024 SGPTALT 9 02/08/2024 ALKALINEPHO 107 02/08/2024 GFRNA >60 02/08/2024 GFRA >60 02/08/2024 Lab Results Component Value Date CPK 407 (H) 01/26/2024 Lab Results Component Value Date LACTICA 0.7 02/07/2024 Lab Results Component Value Date GLUCOSEPOCT 131 (H) 02/05/2024 EKG: EKG 12 LEAD Result Date: 01/28/2024 Normal sinus rhythm Right bundle branch block Abnormal ECG no change since 25 January 2024 11:44a.m. Confirmed by Robinson Robison ([id number]) on 01/28/2024 3:01:13 PM EKG 12 LEAD Result Date: 01/28/2024 Sinus tachycardia Rightward axis Nonspecific intraventricular block Abnormal ECG No previous ECGs available Confirmed by Robinson Robison ([id number]) on 01/28/2024 2:58:37 PM Imaging: XR CHEST SINGLE VIEW PORTABLE Result Date: 02/08/2024 IMPRESSION: Worsening CHF with bilateral pleural effusions. XR SMALL BOWEL FOLLOW THROUGH Result Date: 02/07/2024 IMPRESSION: Normal small bowel follow through exam. No evidence of bowel obstruction XR ABDOMEN KUB FLAT PLATE Result Date: 02/07/2024 IMPRESSION: Nasogastric tube tip and side hole project over the gastric fundus. Bilateral lower lobe pneumonia and small pleural effusions. I independently reviewed images and test results. My personal interpretation is: No new imaging studies were done Assessment: Active Hospital Problems Diagnosis Date Noted Seizures (HCC) SD (myocardial infarction) (HCC) CVA (cerebral vascular accident) (HCC) COPD (chronic obstructive pulmonary disease) (HCC) BPH (benign prostatic hyperplasia) A-fib (HCC) Aortic valve stenosis Mitral valve stenosis Chronic diastolic heart failure (HCC) CAD (coronary artery disease) TIA (transient ischemic attack) HLD (hyperlipidemia) Pulmonary HTN (HCC) DM type 2 (diabetes mellitus, type 2) (HCC) Cardiopulmonary arrest with successful resuscitation ([facility]) 01/25/2024 Resolved Hospital Problems No resolved problems to display. Vitals: 02/08/24 0500 02/08/24 0600 02/08/24 0700 02/08/24 0800 Temp: 97.8 ??F (36.6 ??C) TempSrc: Tympanic Heart Rate (Monitor): 96 94 90 89 Pulse: 95 93 89 90 Resp: 18 25 16 19 BP: 146/77 143/78 119/69 117/68 Height: Weight: 155 lb 1.6 oz (70.4 kg) SpO2: 93% 100% 93% 93% O2 Flow Rate (l/min): 3 l/min O2 Device: Nasal cannula I/O last 3 completed shifts: In: 30 [I.V.:20; IV Piggyback:10] Out: 1550 [Urine:1550] BMI: Body mass index is 22.25 kg/m??. Lines: Peripheral and PICC line Tubes: None Catheters: Blankenship Other providers notes reviewed: Cardiology notes reviewed Plan: Plan 1. Status post cardio respiratory arrest and resuscitation. The patient is now extubated for few days. He has not has a swallow evaluation and passed the test. He is now able to mechanical soft diet and eating relatively well and this can progressively be advanced. Still remain on the nectar thick liquids based on sent swallow assessment study. The fact that his chest x-ray is mildly worse could be associated with the aspiration. 2. Sepsis present on admission. Probably secondarily to pneumonia. The patient received a full course of antibiotic therapy which was completed on Friday. I discontinue the antibiotics. The CBC does not show any leukocytosis. The chest x-ray is overall stable although the pleural effusion might be slightly increasing. I started him on Mucomyst nebulizers. His white blood cell count is gradually increasing. I will start further deduction of the prednisone. 3. Non ST-elevation myocardial infarction. The patient was put on the heparin drip in the beginning. The echocardiogram showed a normal left ventricular ejection fraction but he has moderate to severe aortic stenosis. Cardiology following and the plan is to follow-up as outpatient for the moderate to severe aortic stenosis. The plan is to get him somewhat stronger through rehabilitation and have him reassessed by Cardiology as outpatient and make a decision regarding a possible TAVR. 4. Aspiration pneumonia. Treated with IV antibiotics. Treatment course is completed. The patient grew Streptococcus pneumoniae from the sputum cultures. No further antibiotics are required at this point. His white blood cell count remained stable the x-ray is relatively unchanged. The patient has aswallow evaluation which showed penetration and aspiration with thin liquids and should remain on nectar thick liquids. His white blood cell count is increasing and the lungs are mildly more hazy on the chest x-ray. Continue monitoring. 5. Urinary tract infection with Serratia marcescens. The patient has been treated with cefepime forthe pneumonia which will also cover the UTI. He has a Blankenship catheter in place which is a chronic issue and the patient had it prior to admission. He has chronic bladder incontinence. The patient willneed routine and regular catheter replacement. 6. Chronic diastolic heart failure. The patient has a normal left ventricular ejection fraction butevidence of diastolic dysfunction. At this moment he is not in any acute clinical failure. 7. History of atrial fibrillation. This has started in February of 2022. The patient had cardioversion and is in NSR currently. 8. Hypernatremia. Sodium level is decreasing after he was encouraged to increase his oral hydration. The sodium level is up to 146 and further oral intake of water was encouraged. 9. Acute metabolic encephalopathy. The patient was again agitated overnight and had to be put on the Precedex. Currently his mental status has improved. It was possible that he might be having some sundowning. I requested a full cognitive assessment which is in favor of a severe cognitive dysfunction. Part of it could be sedated to ICU psychosis but an underlying dementia should be kept in mind. Ideally after he goes through adequate course of rehabilitation, the cognitive assessment should be repeated and accordingly a treatment plan can be decided on. His mental status is somewhat better today regardless. 10. Hyperglycemia. In the past few days his blood sugar levels were elevated. It was probably secondarily to stress and steroids. His hemoglobin A1c is less than 6 and he does not have a history of diabetes. I discontinued all of the insulin administration and the Accu-Cheks. Care plan discussed with: Patient and the care team Activity: Bed Rest IV fluids: Maintenance treatment but will start oral hydration. Diet: Dysphagia 1 diet will be started after speech therapy. Level of Care: Continue same care. Anticipated Disposition at discharge: Acute rehabilitation facility Social Determinants: The patient was living at home. At this moment in his to go to an acute Rehabilitation and we are still waiting for insurance authorization. VTE Prophylaxis: Lovenox 40mg Q24h Expected discharge date: As soon as we have insurance authorization. The patient is clinically stable. He can be transferred back to the medical floor. The acute respiratory failure this time was secondarily to take it off his oxygen By: Ector Carroll MD, 02/08/2024 8:56 AM FORMS DESIGNER S DESIGNER * Luzma Bermudez APRN, CNP - 02/08/2024 3:04 AM CST INCIDENTAL NOTE: Acute respiratory Distress Called to bedside pt Acute respiratory distress. Per staffing branch manager pt was found with oxygen off and o2 sats 40%. Pt seen and examined Confused, with a weak non productive Congested cough, diminished lung breath sounds throughout , HR107, BP 156/89 CXR ordered NRB placed, ABG ordered ABG as follows PH 7.38, PCO2 55, Po2 125, Base 7.[address] Agata Demarco Newspaper Delivery Counselor consulted Transfer order placed for ICU Negrito Wong updated Pt transferred to ICU Pt using Accessory muscles and have diminished wheezing on auscultation O2 decreased to 5L NC Cbc, cmp, bnp ordered HR 97 BP 129/79, 98% 5L NC, RR 19 Dr. Agata Demarco Updated WBC 12.08 from 11.91 CXR results worsening CHF with Bilateral pleural effusions BNP 346 40mg lasix x1 IV and BID ECHO (01/26/24) LVEF 60-65% The left ventricle is normal in size. Mild concentric left ventricular hypertrophy is present. LV function is normal. There are no regional wall motion abnormalities. Grade III diastolic dysfunction/restrictive filling pattern. Consider updated Echo Troponin ordered and Cardiology consulted Critical Care Time 45 minutes Cosigned by Ector Carroll MD at 02/08/2024 8:56 AM FORMS DESIGNER S DESIGNER S DESIGNER S DESIGNER S DESIGNER S DESIGNER S DESIGNER S DESIGNER * Gagan Montiel MD - 02/07/2024 8:12 PM CST [facility] IN[facility]IENT DAILY PROGRESS NOTE Papito Joseph is a 78 y.o. male at Hospital LOS: 13 days Assessment: Active Hospital Problems Diagnosis Date Noted Seizures (HCC) SD (myocardial infarction) (HCC) CVA (cerebral vascular accident) (HCC) COPD (chronic obstructive pulmonary disease) (HCC) BPH (benign prostatic hyperplasia) A-fib (HCC) Aortic valve stenosis Mitral valve stenosis Chronic diastolic heart failure (HCC) CAD (coronary artery disease) TIA (transient ischemic attack) HLD (hyperlipidemia) Pulmonary HTN (HCC) DM type 2 (diabetes mellitus, type 2) ([facility]) Cardiopulmonary arrest with successful resuscitation ([facility]) 01/25/2024 Resolved Hospital Problems No resolved problems to display. Vitals: 02/07/24 1400 02/07/24 1501 02/07/24 1701 02/07/24 1900 Temp: 98.2 ??F (36.8 ??C) TempSrc: Tympanic Heart Rate (Monitor): 98 85 95 Pulse: 87 Resp: 20 BP: 153/73 Height: Weight: SpO2: 98% I/O last 3 completed shifts: In: 830 [P.O.:800; I.V.:20; IV Piggyback:10] Out: 700 [Urine:700] Plan: Plan Status post cardio respiratory arrest and resuscitation. The patient is now extubated for few days.He has not has a swallow evaluation and passed the test. He is now able to mechanical soft diet andeating relatively well and this can progressively be advanced. 2. Sepsis present on admission. Probably secondarily to pneumonia. The patient received a full course of antibiotic therapy which was completed on Friday. I discontinue the antibiotics. The CBC does not show any leukocytosis. The chest x-ray is overall stable although the pleural effusion might be slightly increasing. I will start him on Mucomyst nebulizers. 3. Non ST-elevation myocardial infarction. The patient was put on the heparin drip in the beginning. The echocardiogram showed a normal left ventricular ejection fraction but he has moderate to severe aortic stenosis. Cardiology following and the plan is to follow-up as outpatient for the moderate to severe aortic stenosis. The plan is to get him somewhat stronger through rehabilitation and have him reassessed by Cardiology as outpatient and make a decision regarding a possible TAVR. 4. Aspiration pneumonia. Treated with IV antibiotics. Treatment course is completed. The patient grew Streptococcus pneumoniae from the sputum cultures. No further antibiotics are required at this point. His white blood cell count remained stable the x-ray is relatively unchanged. The patient has aswallow evaluation which showed penetration and aspiration with thin liquids and should remain on nectar thick liquids. 5. Urinary tract infection with Serratia marcescens. The patient has been treated with cefepime forthe pneumonia which will also cover the UTI. He has a Blankenship catheter in place which is a chronic issue and the patient had it prior to admission. He has chronic bladder incontinence. The patient willneed routine and regular catheter replacement. 6. Chronic diastolic heart failure. The patient has a normal left ventricular ejection fraction butevidence of diastolic dysfunction. At this moment he is not in any acute clinical failure. 7. History of atrial fibrillation. This has started in February of 2022. The patient had cardioversion and is in NSR currently. 8. Hypernatremia. Sodium level is decreasing after he was encouraged to increase his oral hydration. The sodium level is down to 145. 9. Acute metabolic encephalopathy. The patient was again agitated overnight and had to be put on the Precedex. Currently his mental status has improved. It was possible that he might be having some sundowning. I requested a full cognitive assessment which is in favor of a severe cognitive dysfunction. Part of it could be sedated to ICU psychosis but an underlying dementia should be kept in mind. Ideally after he goes through adequate course of rehabilitation, the cognitive assessment should be repeated and accordingly a treatment plan can be decided on. 10. Hyperglycemia. In the past few days his blood sugar levels were elevated. It was probably secondarily to stress and steroids. His hemoglobin A1c is less than 6 and he does not have a history of diabetes. I will discontinue all of the insulin administration and the Accu-Cheks. 11. Abdominal distention/developing small-bowel obstruction versus ileus versus constipation 02/06/2024 --- as per referred by nursing staff, no bowel movement in 5 days. Imaging studies identifies developing SBO versus ileus versus constipation. NG tube, loading been suctioning placed. Small-bowel follow-through pending. 02/07/2024 --- small-bowel follow-through performed, and notification for resolution of suspected SBO. Constipation persists. 12. Constipation 02/07/2024 --- continuation on CT and KUB imaging. Discontinuation of NG tube. Further supplements of lactulose and MiraLax therapies in conjunction with soapsuds enema. Pending reassessment. Expected discharge date: 01/27/2024 Subjective: Interval History: Patient seen at bedside. Status post small-bowel follow- through. Constipation persists. Further supplements provided. Diet advanced to full liquids. Review of Systems: A 14 point comprehensive review of systems was negative, except as documented in HPI. Objective: Exam: General: alert, oriented and in no acute distress, O2 via nasal cannula Skin: normal coloration and turgor, no rashes. HEENT: normocephalic, atraumatic. Pupils equal, round and reactive to light. Extraocular movements intact. Oronasopharynx pink and moist, no lesion or exudate. Neck: Supple. No JVD, lymphadenopathy thyromegaly or carotid bruits auscultated. CVS: RRR, S1/S2 normal, no murmurs, gallops or rubs. Chest: clear to auscultation, no wheezes, rales or rhonchi, symmetric air entry and normal respiratory effort. Abdominal: Soft, positive bowel sounds, slight distention, no guarding, nontender, no increase in warmth of abdomen . Extremities: no edema, no clubbing or cyanosis. Neuro: CN 2-12 grossly intact, normal speech, no focal findings or movement disorder noted. Gait not tested.. Lab Results: Lab Results Component Value Date PHARTERIAL 7.42 01/28/2024 PO2ART 107 (H) 01/28/2024 GYY2EED 48 (H) 01/28/2024 O2ART 98 01/28/2024 Lab Results Component Value Date WBC 11.91 02/07/2024 HEMOGLOBIN 8.9 (L) 02/07/2024 PLATELETCNT 379 02/07/2024 MCV 93.7 02/07/2024 Lab Results Component Value Date SODIUM 144 02/07/2024 POTASSIUM 3.8 02/07/2024 CHLORIDE 109 (H) 02/07/2024 CO2VEN 30 02/07/2024 ANIONGAP 8.8 02/07/2024 GLUCOSE 105 (H) 02/07/2024 BUN 15 02/07/2024 CREATININE 0.77 02/07/2024 BCRATIO8 19 02/07/2024 TOTALPROTEIN 6.0 (L) 02/07/2024 ALBUMIN 2.8 (L) 02/07/2024 CALCIUM 8.7 02/07/2024 TBIL 0.5 02/07/2024 SGOTAST 11 02/07/2024 SGPTALT 8 02/07/2024 ALKALINEPHO 91 02/07/2024 GFRNA >60 02/07/2024 GFRA >60 02/07/2024 Lab Results Component Value Date CPK 407 (H) 01/26/2024 No results found for: FOLATE Lab Results Component Value Date LACTICA 0.7 02/07/2024 No results found for: [id number] No results found for: FERRITIN Lab Results Component Value Date GLUCOSEPOCT 131 (H) 02/05/2024 EKG: EKG 12 LEAD Result Date: 01/28/2024 Normal sinus rhythm Right bundle branch block Abnormal ECG no change since 25 January 2024 11:44a.m. Confirmed by Robinson Robison ([id number]) on 01/28/2024 3:01:13 PM EKG 12 LEAD Result Date: 01/28/2024 Sinus tachycardia Rightward axis Nonspecific intraventricular block Abnormal ECG No previous ECGs available Confirmed by Robinson Robison ([id number]) on 01/28/2024 2:58:37 PM Imaging: XR SMALL BOWEL FOLLOW THROUGH Result Date: 02/07/2024 IMPRESSION: Normal small bowel follow through exam. No evidence of bowel obstruction XR ABDOMEN KUB FLAT PLATE Result Date: 02/07/2024 IMPRESSION: Nasogastric tube tip and side hole project over the gastric fundus. Bilateral lower lobe pneumonia and small pleural effusions. XR ABDOMEN KUB FLAT PLATE Result Date: 02/07/2024 IMPRESSION: High NG tube. Recommend advancing at least 12 cm. Findings were discussed with SABRINA Kim, at 04:46 on 02/07/2024 . RBV. By: Gagan Montiel MD, 02/07/2024 8:12 PM FORMS DESIGNER S DESIGNER * Gagan Montiel MD - 02/06/2024 7:00 PM CST [facility] DAILY PROGRESS NOTE Papito Joseph is a 78 y.o. male at Hospital LOS: 12 days Assessment: Active Hospital Problems Diagnosis Date Noted Seizures (HCC) SD (myocardial infarction) (HCC) CVA (cerebral vascular accident) (HCC) COPD (chronic obstructive pulmonary disease) (HCC) BPH (benign prostatic hyperplasia) A-fib (HCC) Aortic valve stenosis Mitral valve stenosis Chronic diastolic heart failure (HCC) CAD (coronary artery disease) TIA (transient ischemic attack) HLD (hyperlipidemia) Pulmonary HTN (HCC) DM type 2 (diabetes mellitus, type 2) ([facility]) Cardiopulmonary arrest with successful resuscitation ([facility]) 01/25/2024 Resolved Hospital Problems No resolved problems to display. Vitals: 02/06/24 1306 02/06/24 1311 02/06/24 1335 02/06/24 1508 Temp: 98.6 ??F (37 ??C) TempSrc: Tympanic Heart Rate (Monitor): (!) 111 (!) 117 (!) 104 Pulse: 100 Resp: 18 16 BP: 126/66 Height: Weight: SpO2: 91% 96% I/O last 3 completed shifts: In: 800 [P.O.:800] Out: 400 [Urine:400] Plan: Plan Status post cardio respiratory arrest and resuscitation. The patient is now extubated for few days.He has not has a swallow evaluation and passed the test. He is now able to mechanical soft diet andeating relatively well and this can progressively be advanced. 2. Sepsis present on admission. Probably secondarily to pneumonia. The patient received a full course of antibiotic therapy which was completed on Friday. I discontinue the antibiotics. The CBC does not show any leukocytosis. The chest x-ray is overall stable although the pleural effusion might be slightly increasing. I will start him on Mucomyst nebulizers. 3. Non ST-elevation myocardial infarction. The patient was put on the heparin drip in the beginning. The echocardiogram showed a normal left ventricular ejection fraction but he has moderate to severe aortic stenosis. Cardiology following and the plan is to follow-up as outpatient for the moderate to severe aortic stenosis. The plan is to get him somewhat stronger through rehabilitation and have him reassessed by Cardiology as outpatient and make a decision regarding a possible TAVR. 4. Aspiration pneumonia. Treated with IV antibiotics. Treatment course is completed. The patient grew Streptococcus pneumoniae from the sputum cultures. No further antibiotics are required at this point. His white blood cell count remained stable the x-ray is relatively unchanged. The patient has aswallow evaluation which showed penetration and aspiration with thin liquids and should remain on nectar thick liquids. 5. Urinary tract infection with Serratia marcescens. The patient has been treated with cefepime forthe pneumonia which will also cover the UTI. He has a Blankenship catheter in place which is a chronic issue and the patient had it prior to admission. He has chronic bladder incontinence. The patient willneed routine and regular catheter replacement. 6. Chronic diastolic heart failure. The patient has a normal left ventricular ejection fraction butevidence of diastolic dysfunction. At this moment he is not in any acute clinical failure. 7. History of atrial fibrillation. This has started in February of 2022. The patient had cardioversion and is in NSR currently. 8. Hypernatremia. Sodium level is decreasing after he was encouraged to increase his oral hydration. The sodium level is down to 145. 9. Acute metabolic encephalopathy. The patient was again agitated overnight and had to be put on the Precedex. Currently his mental status has improved. It was possible that he might be having some sundowning. I requested a full cognitive assessment which is in favor of a severe cognitive dysfunction. Part of it could be sedated to ICU psychosis but an underlying dementia should be kept in mind. Ideally after he goes through adequate course of rehabilitation, the cognitive assessment should be repeated and accordingly a treatment plan can be decided on. 10. Hyperglycemia. In the past few days his blood sugar levels were elevated. It was probably secondarily to stress and steroids. His hemoglobin A1c is less than 6 and he does not have a history of diabetes. I will discontinue all of the insulin administration and the Accu-Cheks. 11. Abdominal distention/developing small-bowel obstruction versus ileus versus constipation 02/06/2024 --- as per referred by nursing staff, no bowel movement in 5 days. Imaging studies identifies developing SBO versus ileus versus constipation. NG tube, loading been suctioning placed. Small-bowel follow-through pending. Expected discharge date: 01/27/2024 Subjective: Interval History: Patient seen at bedside. No new complaints by patient. Per nursing staff, no bowel movement in 5 days. Review of Systems: A 14 point comprehensive review of systems was negative, except as documented in HPI. Objective: Exam: General: alert, oriented and in no acute distress, O2 via nasal cannula Skin: normal coloration and turgor, no rashes. HEENT: normocephalic, atraumatic. Pupils equal, round and reactive to light. Extraocular movements intact. Oronasopharynx pink and moist, no lesion or exudate. Neck: Supple. No JVD, lymphadenopathy thyromegaly or carotid bruits auscultated. CVS: RRR, S1/S2 normal, no murmurs, gallops or rubs. Chest: clear to auscultation, no wheezes, rales or rhonchi, symmetric air entry and normal respiratory effort. Abdominal: Soft, positive bowel sounds, slight distention, no guarding, nontender, no increase in warmth of abdomen . Extremities: no edema, no clubbing or cyanosis. Neuro: CN 2-12 grossly intact, normal speech, no focal findings or movement disorder noted. Gait not tested.. Lab Results: Lab Results Component Value Date PHARTERIAL 7.42 01/28/2024 PO2ART 107 (H) 01/28/2024 [id number] 48 (H) 01/28/2024 O2ART 98 01/28/2024 Lab Results Component Value Date WBC 18.18 (H) 02/06/2024 HEMOGLOBIN 9.3 (L) 02/06/2024 PLATELETCNT 396 02/06/2024 MCV 93.4 02/06/2024 Lab Results Component Value Date SODIUM 145 02/03/2024 POTASSIUM 3.8 02/03/2024 CHLORIDE 106 02/03/2024 CO2VEN 31 (H) 02/03/2024 ANIONGAP 11.8 02/03/2024 GLUCOSE 85 02/03/2024 BUN 18 02/03/2024 CREATININE 0.72 02/03/2024 BCRATIO8 25 (H) 02/03/2024 TOTALPROTEIN 6.5 01/28/2024 ALBUMIN 2.9 (L) 01/30/2024 CALCIUM 9.2 02/03/2024 TBIL 0.5 01/28/2024 SGOTAST 13 01/28/2024 SGPTALT 10 01/28/2024 ALKALINEPHO 59 01/28/2024 GFRNA >60 02/03/2024 GFRA >60 02/03/2024 Lab Results Component Value Date CPK 407 (H) 01/26/2024 No results found for: FOLATE Lab Results Component Value Date LACTICA 1.9 01/26/2024 No results found for: [id number] No results found for: FERRITIN Lab Results Component Value Date GLUCOSEPOCT 131 (H) 02/05/2024 EKG: EKG 12 LEAD Result Date: 01/28/2024 Normal sinus rhythm Right bundle branch block Abnormal ECG no change since 25 January 2024 11:44a.m. Confirmed by Robinson Robison ([id number]) on 01/28/2024 3:01:13 PM EKG 12 LEAD Result Date: 01/28/2024 Sinus tachycardia Rightward axis Nonspecific intraventricular block Abnormal ECG No previous ECGs available Confirmed by Robinson Robison ([id number]) on 01/28/2024 2:58:37 PM Imaging: XR ABDOMEN KUB FLAT PLATE Result Date: 02/06/2024 IMPRESSION: Moderate to large amount of retained fecal debris in the colon, which is concerning forconstipation. Mild dilatation of the small bowel measuring up to 3.7 cm, which may be related to ileus, however developing small- bowel obstruction can not be entirely excluded. Follow-up with serial r adiographs versus CT is recommended as clinically indicated. Findings were discussed with patient'Kaci tenorio RN, by Dr. Contreras at 13:21 hours on 02/06/2024 . By: Gagan Montiel MD, 02/06/2024 7:00 PM FORMS DESIGNER S DESIGNER * Ector Carroll MD - 02/05/2024 8:50 AM CST [facility] IN[facility]IENT DAILY PROGRESS NOTE Papito Joseph is a 78 y.o. male at Hospital LOS: 10 days Subjective: Interval History: The patient was given a dose of Seroquel last night. It helped somewhat but he has was still ratherconfused earlier today but now is doing better. His seems that staying in the ICU is having a toll on him. We are still waiting for transfer to an acute rehabilitation. Review of Systems: A 14 point comprehensive review of systems was negative except what is documented in interval history above. Objective: Exam: General: Well developed, well nourished, in no distress, sitting up in the chair Skin: Normal appearance, decreased turgor, no rashes HEENT: Normocephalic, atraumatic, no flaring Eyes: nonicteric, intact extra occular movement, PERRL Neck: normal, supple, no lymphadenopathy Cardiovascular: regular rate and rhythm, S1, S2 normal, no murmur, click, rub or gallop Lungs: Coarse breath sounds, humid and minimally productive cough, normal respirations, normal precautions Abdominal: soft, non-tender; bowel sounds normal; no masses, no organomegaly : external genitalia normal in appearance Musculoskeletal: no deformities, joint mobility appears intact, no clubbing Neuro: Non-focal, CN intact, sensory and motor intact Psychological: alert and oriented X3, appropriate mood and affect, Intact judgement and memory although he had an additional episode of agitation overnight Current Medications: No recently discontinued medications to reconcile Medication Modifications: I will discontinue the antibiotics and will start switching the steroids to oral. We will also switch the rest of the medications to oral when an equivalent is available Lab Results: Lab Results Component Value Date PHARTERIAL 7.42 01/28/2024 PO2ART 107 (H) 01/28/2024 ESH2WSC 48 (H) 01/28/2024 O2ART 98 01/28/2024 Lab Results Component Value Date WBC 11.47 02/03/2024 HEMOGLOBIN 10.4 (L) 02/03/2024 PLATELETCNT 336 02/03/2024 MCV 94.1 02/03/2024 Lab Results Component Value Date SODIUM 145 02/03/2024 POTASSIUM 3.8 02/03/2024 CHLORIDE 106 02/03/2024 CO2VEN 31 (H) 02/03/2024 ANIONGAP 11.8 02/03/2024 GLUCOSE 85 02/03/2024 BUN 18 02/03/2024 CREATININE 0.72 02/03/2024 BCRATIO8 25 (H) 02/03/2024 TOTALPROTEIN 6.5 01/28/2024 ALBUMIN 2.9 (L) 01/30/2024 CALCIUM 9.2 02/03/2024 TBIL 0.5 01/28/2024 SGOTAST 13 01/28/2024 SGPTALT 10 01/28/2024 ALKALINEPHO 59 01/28/2024 GFRNA >60 02/03/2024 GFRA >60 02/03/2024 Lab Results Component Value Date CPK 407 (H) 01/26/2024 Lab Results Component Value Date LACTICA 1.9 01/26/2024 Lab Results Component Value Date GLUCOSEPOCT 176 (H) 02/04/2024 EKG: EKG 12 LEAD Result Date: 01/28/2024 Normal sinus rhythm Right bundle branch block Abnormal ECG no change since 25 January 2024 11:44a.m. Confirmed by Robinson Robison ([id number]) on 01/28/2024 3:01:13 PM EKG 12 LEAD Result Date: 01/28/2024 Sinus tachycardia Rightward axis Nonspecific intraventricular block Abnormal ECG No previous ECGs available Confirmed by Robinson Robison ([id number]) on 01/28/2024 2:58:37 PM Imaging: No results found. I independently reviewed images and test results. My personal interpretation is: No new imaging studies were done Assessment: Active Hospital Problems Diagnosis Date Noted Seizures (HCC) SD (myocardial infarction) (HCC) CVA (cerebral vascular accident) (HCC) COPD (chronic obstructive pulmonary disease) (HCC) BPH (benign prostatic hyperplasia) A-fib (HCC) Aortic valve stenosis Mitral valve stenosis Chronic diastolic heart failure (HCC) CAD (coronary artery disease) TIA (transient ischemic attack) HLD (hyperlipidemia) Pulmonary HTN (HCC) DM type 2 (diabetes mellitus, type 2) (HCC) Cardiopulmonary arrest with successful resuscitation ([facility]) 01/25/2024 Resolved Hospital Problems No resolved problems to display. Vitals: 02/05/24 0400 02/05/24 0500 02/05/24 0600 02/05/24 0700 Temp: TempSrc: Heart Rate (Monitor): (!) 105 (!) 102 (!) 104 Pulse: 105 102 103 Resp: BP: 162/78 162/68 Height: Weight: SpO2: 98% 99% 94% O2 Flow Rate (l/min): 2 l/min O2 Device: Nasal cannula I/O last 3 completed shifts: In: 720 [P.O.:720] Out: 2350 [Urine:2350] BMI: Body mass index is 22.05 kg/m??. Lines: Peripheral and PICC line Tubes: None Catheters: Blankenship Other providers notes reviewed: Cardiology notes reviewed Plan: Plan 1. Status post cardio respiratory arrest and resuscitation. The patient is now extubated for few days. He has not has a swallow evaluation and passed the test. He is now able to mechanical soft diet and eating relatively well and this can progressively be advanced. 2. Sepsis present on admission. Probably secondarily to pneumonia. The patient received a full course of antibiotic therapy which was completed on Friday. I discontinue the antibiotics. The CBC does not show any leukocytosis. The chest x-ray is overall stable although the pleural effusion might be slightly increasing. I will start him on Mucomyst nebulizers. 3. Non ST-elevation myocardial infarction. The patient was put on the heparin drip in the beginning. The echocardiogram showed a normal left ventricular ejection fraction but he has moderate to severe aortic stenosis. Cardiology following and the plan is to follow-up as outpatient for the moderate to severe aortic stenosis. The plan is to get him somewhat stronger through rehabilitation and have him reassessed by Cardiology as outpatient and make a decision regarding a possible TAVR. 4. Aspiration pneumonia. Treated with IV antibiotics. Treatment course is completed. The patient grew Streptococcus pneumoniae from the sputum cultures. No further antibiotics are required at this point. His white blood cell count remained stable the x-ray is relatively unchanged. The patient has aswallow evaluation which showed penetration and aspiration with thin liquids and should remain on nectar thick liquids. 5. Urinary tract infection with Serratia marcescens. The patient has been treated with cefepime forthe pneumonia which will also cover the UTI. He has a Blankenship catheter in place which is a chronic issue and the patient had it prior to admission. He has chronic bladder incontinence. The patient willneed routine and regular catheter replacement. 6. Chronic diastolic heart failure. The patient has a normal left ventricular ejection fraction butevidence of diastolic dysfunction. At this moment he is not in any acute clinical failure. 7. History of atrial fibrillation. This has started in February of 2022. The patient had cardioversion and is in NSR currently. 8. Hypernatremia. Sodium level is decreasing after he was encouraged to increase his oral hydration. The sodium level is down to 145. 9. Acute metabolic encephalopathy. The patient was again agitated overnight and had to be put on the Precedex. Currently his mental status has improved. It was possible that he might be having some sundowning. I requested a full cognitive assessment which is in favor of a severe cognitive dysfunction. Part of it could be sedated to ICU psychosis but an underlying dementia should be kept in mind. Ideally after he goes through adequate course of rehabilitation, the cognitive assessment should be repeated and accordingly a treatment plan can be decided on. 10. Hyperglycemia. In the past few days his blood sugar levels were elevated. It was probably secondarily to stress and steroids. His hemoglobin A1c is less than 6 and he does not have a history of diabetes. I will discontinue all of the insulin administration and the Accu-Cheks. Care plan discussed with: Patient and the care team Activity: Bed Rest IV fluids: Maintenance treatment but will start oral hydration. Diet: Dysphagia 1 diet will be started after speech therapy. Level of Care: Continue same care. Anticipated Disposition at discharge: Acute rehabilitation facility Social Determinants: The patient was living at home. At this moment in his to go to an acute Rehabilitation and we are still waiting for insurance authorization. VTE Prophylaxis: Lovenox 40mg Q24h Expected discharge date: As soon as we have insurance authorization. The patient is clinically stable. By: Ector Carroll MD, 02/05/2024 8:50 AM FORMS DESIGNER S DESIGNER S DESIGNER * Ector Carroll MD - 02/04/2024 8:51 AM CST [facility] INPATIENT DAILY PROGRESS NOTE Papito Joseph is a 78 y.o. male at Hospital LOS: 9 days Subjective: Interval History: The patient slept well last night and did not require the Precedex. He wore the BIPAP for a limitedtime. The patient is feeling better overall and his appetite has improved. Review of Systems: A 14 point comprehensive review of systems was negative except what is documented in interval history above. Objective: Exam: General: Well developed, well nourished, in no distress, detention sitting up in the bed comfortably,has been also up in the chair Skin: Normal appearance, decreased turgor, no rashes HEENT: Normocephalic, atraumatic, no flaring Eyes: nonicteric, intact extra occular movement, PERRL Neck: normal, supple, no lymphadenopathy Cardiovascular: regular rate and rhythm, S1, S2 normal, no murmur, click, rub or gallop Lungs: Coarse breath sounds, humid and minimally productive cough, normal respirations, normal precautions Abdominal: soft, non-tender; bowel sounds normal; no masses, no organomegaly : external genitalia normal in appearance Musculoskeletal: no deformities, joint mobility appears intact, no clubbing Neuro: Non-focal, CN intact, sensory and motor intact Psychological: alert and oriented X3, appropriate mood and affect, Intact judgement and memory although he still additional episodes ofagitation overnight Current Medications: No recently discontinued medications to reconcile Medication Modifications: I will discontinue the antibiotics and will start switching the steroids to oral. We will also switch the rest of the medications to oral when an equivalent is available Lab Results: Lab Results Component Value Date PHARTERIAL 7.42 01/28/2024 PO2ART 107 (H) 01/28/2024 REO0RUP 48 (H) 01/28/2024 O2ART 98 01/28/2024 Lab Results Component Value Date WBC 11.47 02/03/2024 HEMOGLOBIN 10.4 (L) 02/03/2024 PLATELETCNT 336 02/03/2024 MCV 94.1 02/03/2024 Lab Results Component Value Date SODIUM 145 02/03/2024 POTASSIUM 3.8 02/03/2024 CHLORIDE 106 02/03/2024 CO2VEN 31 (H) 02/03/2024 ANIONGAP 11.8 02/03/2024 GLUCOSE 85 02/03/2024 BUN 18 02/03/2024 CREATININE 0.72 02/03/2024 BCRATIO8 25 (H) 02/03/2024 TOTALPROTEIN 6.5 01/28/2024 ALBUMIN 2.9 (L) 01/30/2024 CALCIUM 9.2 02/03/2024 TBIL 0.5 01/28/2024 SGOTAST 13 01/28/2024 SGPTALT 10 01/28/2024 ALKALINEPHO 59 01/28/2024 GFRNA >60 02/03/2024 GFRA >60 02/03/2024 Lab Results Component Value Date CPK 407 (H) 01/26/2024 Lab Results Component Value Date LACTICA 1.9 01/26/2024 Lab Results Component Value Date GLUCOSEPOCT 78 02/04/2024 EKG: EKG 12 LEAD Result Date: 01/28/2024 Normal sinus rhythm Right bundle branch block Abnormal ECG no change since 25 January 2024 11:44a.m. Confirmed by Robinson Robison ([id number]) on 01/28/2024 3:01:13 PM EKG 12 LEAD Result Date: 01/28/2024 Sinus tachycardia Rightward axis Nonspecific intraventricular block Abnormal ECG No previous ECGs available Confirmed by Robinson Robison ([id number]) on 01/28/2024 2:58:37 PM Imaging: XR CHEST SINGLE VIEW PORTABLE Result Date: 02/03/2024 IMPRESSION: Small slightly increased left pleural effusion. Stable small right pleural effusion. Stable left lower lung atelectasis or airspace disease. I independently reviewed images and test results. My personal interpretation is: No new imaging studies were done Assessment: Active Hospital Problems Diagnosis Date Noted Seizures (HCC) SD (myocardial infarction) (HCC) CVA (cerebral vascular accident) (HCC) COPD (chronic obstructive pulmonary disease) (HCC) BPH (benign prostatic hyperplasia) A-fib (HCC) Aortic valve stenosis Mitral valve stenosis Chronic diastolic heart failure (HCC) CAD (coronary artery disease) TIA (transient ischemic attack) HLD (hyperlipidemia) Pulmonary HTN (HCC) DM type 2 (diabetes mellitus, type 2) (HCC) Cardiopulmonary arrest with successful resuscitation ([facility]) 01/25/2024 Resolved Hospital Problems No resolved problems to display. Vitals: 02/04/24 0450 02/04/24 0505 02/04/24 0554 02/04/24 0600 Temp: TempSrc: Heart Rate (Monitor): 93 97 Pulse: 91 93 95 96 Resp: 18 20 BP: 157/77 154/75 Height: Weight: SpO2: 93% 95% 95% 96% O2 Flow Rate (l/min): 3 l/min O2 Device: Nasal cannula I/O last 3 completed shifts: In: 1241.4 [P.O.:920; I.V.:301.4; IV Piggyback:20] Out: 1400 [Urine:1400] BMI: Body mass index is 22.05 kg/m??. Lines: Peripheral and PICC line Tubes: None Catheters: Blankenship Other providers notes reviewed: Cardiology notes reviewed Plan: Plan 1. Status post cardio respiratory arrest and resuscitation. The patient is now extubated for few days. He has not has a swallow evaluation and passed the test. He is now able to mechanical soft diet and eating relatively well and this can progressively be advanced. 2. Sepsis present on admission. Probably secondarily to pneumonia. The patient received a full course of antibiotic therapy which was completed on Friday. I discontinue the antibiotics. The CBC does not show any leukocytosis. The chest x-ray is overall stable although the pleural effusion might be slightly increasing. I will start him on Mucomyst nebulizers. 3. Non ST-elevation myocardial infarction. The patient was put on the heparin drip in the beginning. The echocardiogram showed a normal left ventricular ejection fraction but he has moderate to severe aortic stenosis. Cardiology following and the plan is to follow-up as outpatient for the moderate to severe aortic stenosis. 4. Aspiration pneumonia. Treated with IV antibiotics. Treatment course is completed. The patient grew Streptococcus pneumoniae from the sputum cultures. No further antibiotics are required at this point. His white blood cell count remained stable the x-ray is relatively unchanged. 5. Urinary tract infection with Serratia marcescens. The patient has been treated with cefepime forthe pneumonia which will also cover the UTI. He has a Blankenship catheter in place which is a chronic issue and the patient had it prior to admission. He has chronic bladder incontinence. 6. Chronic diastolic heart failure. The patient has a normal left ventricular ejection fraction butevidence of diastolic dysfunction. At this moment he is not in any acute clinical failure. 7. History of atrial fibrillation. This has started in February of 2022. The patient had cardioversion and is in NSR currently. 8. Hypernatremia. Sodium level is decreasing after he was encouraged to increase his oral hydration. 9. Acute metabolic encephalopathy. The patient was again agitated overnight and had to be put on the Precedex. Currently his mental status has improved. It was possible that he might be having some sundowning. I will order a full cognitive assessment tomorrow. Care plan discussed with: Patient and the care team Activity: Bed Rest IV fluids: Maintenance treatment but will start oral hydration. Diet: Dysphagia 1 diet will be started after speech therapy. Level of Care: Continue same care. Anticipated Disposition at discharge: Acute rehabilitation facility Social Determinants: The patient was living at home. At this moment in his to go to an acute Rehabilitation and we are still waiting for insurance authorization. VTE Prophylaxis: Lovenox 40mg Q24h Expected discharge date: 02/05/2024 By: Ector Carroll MD, 02/04/2024 8:51 AM FORMS DESIGNER S DESIGNER * Ector Carroll MD - 02/03/2024 8:47 AM CST [facility] INPATIENT DAILY PROGRESS NOTE Papito Joseph is a 78 y.o. male at Hospital LOS: 9 days Subjective: Interval History: The patient has a rough night and had to be put on Precedex and spent the night on the BiPAP. We will repeat the chest x-ray. At home he wears only oxygen 2 L. He is otherwise doing better overall and is eating better. Review of Systems: A 14 point comprehensive review of systems was negative except what is documented in interval history above. Objective: Exam: General: Well developed, well nourished, in no distress, lying in the bed comfortably, has been also up in the chair Skin: Normal appearance, decreased turgor, no rashes HEENT: Normocephalic, atraumatic, no flaring Eyes: nonicteric, intact extra occular movement, PERRL Neck: normal, supple, no lymphadenopathy Cardiovascular: regular rate and rhythm, S1, S2 normal, no murmur, click, rub or gallop Lungs: clear to ausculation, normal respirations, normal precautions Abdominal: soft, non-tender; bowel sounds normal; no masses, no organomegaly : external genitalia normal in appearance Musculoskeletal: no deformities, joint mobility appears intact, no clubbing Neuro: Non-focal, CN intact, sensory and motor intact Psychological: alert and oriented X3, appropriate mood and affect, Intact judgement and memory although he still additional episodes ofagitation overnight Current Medications: No recently discontinued medications to reconcile Medication Modifications: I will discontinue the antibiotics and will start switching the steroids to oral. We will also switch the rest of the medications to oral when an equivalent is available Lab Results: Lab Results Component Value Date PHARTERIAL 7.42 01/28/2024 PO2ART 107 (H) 01/28/2024 DPE3TPA 48 (H) 01/28/2024 O2ART 98 01/28/2024 Lab Results Component Value Date WBC 11.47 02/03/2024 HEMOGLOBIN 10.4 (L) 02/03/2024 PLATELETCNT 336 02/03/2024 MCV 94.1 02/03/2024 Lab Results Component Value Date SODIUM 145 02/03/2024 POTASSIUM 3.8 02/03/2024 CHLORIDE 106 02/03/2024 CO2VEN 31 (H) 02/03/2024 ANIONGAP 11.8 02/03/2024 GLUCOSE 85 02/03/2024 BUN 18 02/03/2024 CREATININE 0.72 02/03/2024 BCRATIO8 25 (H) 02/03/2024 TOTALPROTEIN 6.5 01/28/2024 ALBUMIN 2.9 (L) 01/30/2024 CALCIUM 9.2 02/03/2024 TBIL 0.5 01/28/2024 SGOTAST 13 01/28/2024 SGPTALT 10 01/28/2024 ALKALINEPHO 59 01/28/2024 GFRNA >60 02/03/2024 GFRA >60 02/03/2024 Lab Results Component Value Date CPK 407 (H) 01/26/2024 Lab Results Component Value Date LACTICA 1.9 01/26/2024 Lab Results Component Value Date GLUCOSEPOCT 124 (H) 02/03/2024 EKG: EKG 12 LEAD Result Date: 01/28/2024 Normal sinus rhythm Right bundle branch block Abnormal ECG no change since 25 January 2024 11:44a.m. Confirmed by Robinson Robison ([id number]) on 01/28/2024 3:01:13 PM EKG 12 LEAD Result Date: 01/28/2024 Sinus tachycardia Rightward axis Nonspecific intraventricular block Abnormal ECG No previous ECGs available Confirmed by Robinson Robison ([id number]) on 01/28/2024 2:58:37 PM Imaging: XR CHEST SINGLE VIEW PORTABLE Result Date: 02/03/2024 IMPRESSION: Small slightly increased left pleural effusion. Stable small right pleural effusion. Stable left lower lung atelectasis or airspace disease. I independently reviewed images and test results. My personal interpretation is: No new imaging studies were done Assessment: Active Hospital Problems Diagnosis Date Noted Seizures (HCC) SD (myocardial infarction) ([facility]) CVA (cerebral vascular accident) (HCC) COPD (chronic obstructive pulmonary disease) (HCC) BPH (benign prostatic hyperplasia) A-fib (HCC) Aortic valve stenosis Mitral valve stenosis Chronic diastolic heart failure (HCC) CAD (coronary artery disease) TIA (transient ischemic attack) HLD (hyperlipidemia) Pulmonary HTN (HCC) DM type 2 (diabetes mellitus, type 2) ([facility]) Cardiopulmonary arrest with successful resuscitation ([facility]) 01/25/2024 Resolved Hospital Problems No resolved problems to display. Vitals: 02/03/24 1300 02/03/24 1306 02/03/24 1400 02/03/24 1500 Temp: 98.8 ??F (37.1 ??C) TempSrc: Tympanic Heart Rate (Monitor): (!) 115 (!) 113 (!) 109 (!) 103 Pulse: (!) 114 108 102 Resp: BP: 119/60 110/58 117/60 Height: Weight: SpO2: 95% 94% 96% 96% O2 Flow Rate (l/min): 3 l/min O2 Device: Nasal cannula I/O last 3 completed shifts: In: 1555.7 [P.O.:680; I.V.:845.7; IV Piggyback:30] Out: 1874 [Urine:1875] BMI: Body mass index is 22.05 kg/m??. Lines: Peripheral and PICC line Tubes: None Catheters: Blankenship Other providers notes reviewed: Cardiology notes reviewed Plan: Plan 1. Status post cardio respiratory arrest and resuscitation. The patient is now extubated for few days. He has not has a swallow evaluation and passed the test. He is now able to mechanical soft diet and eating relatively well and this can progressively be advanced. 2. Sepsis present on admission. Probably secondarily to pneumonia. The patient received a full course of antibiotic therapy which was completed on Friday. I discontinue the antibiotics. The CBC does not show any leukocytosis. The chest x-ray is overall stable although the pleural effusion might be slightly increasing. 3. Non ST-elevation myocardial infarction. The patient was put on the heparin drip in the beginning. The echocardiogram showed a normal left ventricular ejection fraction but he has moderate to severe aortic stenosis. Cardiology following and the plan is to follow-up as outpatient for the moderateto severe aortic stenosis. 4. Aspiration pneumonia. Treated with IV antibiotics. Treatment course is completed. The patient grew Streptococcus pneumoniae from the sputum cultures. No further antibiotics are required at this point. 5. Urinary tract infection with Serratia marcescens. The patient has been treated with cefepime forthe pneumonia which will also cover the UTI. He is still has a Blankenship catheter in place which shouldbe eventually removed. 6. Chronic diastolic heart failure. The patient has a normal left ventricular ejection fraction butevidence of diastolic dysfunction. At this moment he is not in any acute clinical failure. 7. History of atrial fibrillation. This has started in February of 2022. The patient had cardioversion. 8. Hypernatremia. Sodium level is decreasing after he was encouraged to increase his oral hydration. 9. Acute metabolic encephalopathy. The patient was again agitated overnight and had to be put on the Precedex. Currently his mental status has improved. It was possible that he might be having some owning. I will order a full cognitive assessment in the upcoming days Care plan discussed with: Patient and the care team Activity: Bed Rest IV fluids: Maintenance treatment but will start oral hydration. Diet: Dysphagia 1 diet will be started after speech therapy. Level of Care: Continue same care. Anticipated Disposition at discharge: Acute rehabilitation facility Social Determinants: The patient was living at home. At this moment in his to go to an acute Rehabilitation and we are still waiting for insurance authorization. VTE Prophylaxis: Lovenox 40mg Q24h Expected discharge date: 02/05/2024 Total critical care time not including any procedure time: 35 minutes By: Ector Carroll MD, 02/03/2024 4:47 PM FORMS DESIGNER S DESIGNER * Chitra Robison APRN, CNP - 02/02/2024 8:59 AM CST Cardiology Progress Note: 02/02/24 Symptoms: Patient extubated nasal cannula. Reports feeling better this a.m.. Patient denies chest pain, reports improvement in breathing. Vitals: 02/02/24 0400 02/02/24 0500 02/02/24 0600 02/02/24 0700 Temp: TempSrc: Heart Rate (Monitor): 91 93 95 88 Pulse: 92 91 95 89 Resp: BP: 129/78 130/71 128/86 135/75 Height: Weight: SpO2: 100% 96% 98% 100% I/O last 3 completed shifts: In: 1886 [P.O.:120; I.V.:1413; IV Piggyback:354] Out: 2124 [Urine:2124] No intake/output data recorded. Exam: HEENT: No pallor or Icterus. Cardiac: PMI and JVP normal, S1 and S2 normal, no murmur, no gallop or rub Abdomen: Soft, nontender, BS active Lungs: Bilateral scattered rhonchi Extremities: No clubbing, cyanosis. No edema. Pedal pulses 2+ Neuro: A&O x3 Medication: Current Facility-Administered Medications Medication Dose Route Frequency Provider Last Rate Last Admin acetaminophen (TYLENOL) tablet 650 mg 650 mg Oral Q4H PRN Luzma Bermudez APRN [employer] 650 mg at 01/26/24 0205 Or acetaminophen (TYLENOL) suppository 650 mg 650 mg Rectal Q4H PRN Luzma Bermudez APRN, AUTOMAT WATCH[employer] aspirin chewable tablet 81 mg 81 mg Oral Daily Luzma Bermudez APRN, CNP 81 mg at 02/01/24 0919 bisacodyl suppository 10 mg 10 mg Rectal Once Dianati, Behfar, MD dexmedetomidine HCl in NaCl (PRECEDEX) 400 MCG/100ML infusion 0-1 mcg/kg/hr Intravenous Continuous HebertRika perez APRN, CNP Stopped at 02/02/24 0200 dextrose 5 % solution Intravenous Continuous April Walton MD 50 mL/hr at 02/01/24 1259 New Bag at 02/01/24 1259 glucose (GLUTOSE) 40 % gel GEL 15 g 15 g Oral PRN Luzma Bermudez APRN, CNP Or dextrose 50 % solution 12.5 g 12.5 g Intravenous PRN Luzma Bermudez APRN, CNP Or Glucagon Emergency injection KIT 1 mg 1 mg Intramuscular PRN Luzma Bermudez APRN, CNP Or Glucagon Emergency injection KIT 1 mg 1 mg Subcutaneous PRN Luzma Bermudez APRN, CNP enoxaparin (LOVENOX) injection 40 mg 40 mg Subcutaneous Daily Spenser Leonard MD 40 mg at 02/02/24 0816 EPINEPHrine (Anaphylaxis) injection 0.3 mg 0.3 mg Intramuscular Once PRN Robinson Robison MD [Held By Provider] furosemide (LASIX) tablet 40 mg 40 mg Oral Daily Spenser Leonard MD hydrALAZINE (APRESOLINE) injection 10 mg 10 mg Intravenous Q1H PRN Luzma Bermudez APRN, CNP [Held By Provider] insulin glargine (LANTUS) 100 UNIT/ML injection 10 Units 10 Units Subcutaneous QAM Spenser Leonard MD 10 Units at 01/29/24 0818 insulin lispro (HumaLOG) 100 UNIT/ML injection 2-12 Units 2-12 Units Subcutaneous 4 times per day Luzma Bermudez APRN, CNP 2 Units at 01/29/24 0644 ipratropium-albuterol (DUO-NEB) 0.5-2.5 (3) MG/3ML nebulizer solution 3 mL 3 mL Nebulization Q6H April Walton MD 3 mL at 02/02/24 0736 labetalol (NORMODYNE;TRANDATE) injection 10 mg 10 mg Intravenous Q1H PRN Luzma Bermudez APRN, CNP lacosamide (VIMPAT) injection 100 mg 100 mg Intravenous Q12H [facility] Perez Nelson MD 100 mg at 02/02/24 0815 levETIRAcetam (KEPPRA) injection 1,000 mg 1,000 mg Intravenous Q12H Spenser Leonard MD 1,000 mg at 02/02/24 0815 Lidocaine 4 % patch 1 Patch 1 Patch Transdermal Nightly Rika Ambrosio APRN, CNP 1 Patch at 02/01/242109 LORazepam (ATIVAN) injection 2 mg 2 mg Intravenous Q1H PRN Spenser Leonard MD magnesium hydroxide (MILK OF MAGNESIA) 400 MG/5ML suspension 30 mL 30 mL Oral Daily PRN Luzma Bermudez APRN, CNP methylPREDNISolone Na Suc (PF) (Solu-MEDROL) injection 40 mg 40 mg Intravenous Q24H Spenser Leonard MD 40 mg at 02/01/242112 metoclopramide (REGLAN) injection 5 mg 5 mg Intravenous Q6H PRN Gagan Montiel MD morphine sulfate (PF) injection 1 mg 1 mg Intravenous Q4H PRN April Walton MD 1 mg at104/04/23 0418 nicotine (NICODERM CQ) 21 MG/24HR patch 1 Patch 1 Patch Transdermal Daily PRN Gagan Montiel MD 1Patch at 02/01/242110 ondansetron (ZOFRAN) injection 4 mg 4 mg Intravenous Q6H PRN Gagan Montiel MD polyethylene glycol (GLYCOLAX, MIRALAX) packet 17 g 17 g Oral BID PRN Luzma Bermudez APRN, CNP Prochlorperazine Edisylate (COMPAZINE) injection 10 mg 10 mg Intravenous Q6H PRN Luzma Bermudez APRN, CNP senna (SENOKOT) tablet 8.6 mg 1 Tablet Oral BID PRN Lumza Bermudez APRN, CNP TRANSDERMAL PATCH ACKNOWLEDGEMENT Miscellaneous Eladioly Rika Ambrosio APRN, CNP Labs: Lab Results Component Value Date CPK 407 (H) 01/26/2024 No results for input(s): BNP , BNPPOCT in the last 72 hours. Recent Labs Units 02/01/24 0438 01/30/24 0917 SODIUM mmol/L 148* 144 POTASSIUM mmol/L 4.0 4.0 CHLORIDE mmol/L 109* 105 CO2VEN mmol/L 32* 32* ANIONGAP mmol/L 11.0 11.0 GLUCOSE mg/dL 150* 104* BUN mg/dL 24 28* CREATININE mg/dL 0.70 0.74 BCRATIO8 ratio 34* 38* CALCIUM mg/dL 9.4 9.8 GFRNA >60 >60 GFRA >60 >60 Recent Labs Units 02/01/24 0438 WBC 10(3)/mcL 11.41 HEMOGLOBIN g/dL 9.7* PLATELETCNT 10(3)/mcL 283 MCV fL 92.6 Lab Results Component Value Date MAGNESIUM 2.0 01/30/2024 No results found for: DDIMER No results for input(s): CHOLESTEROL , TRIGLYCRIDES , HDLCHOLESTE , LDL in the last 72 hours. No results for input(s): INR , PTP in the last 72 hours. Test: Results for orders placed or performed during the hospital encounter of 01/25/24 ADULT TRANS THORACIC ECHO 2D COMPLT W CONT Collection Time: 01/26/24 7:53 AM Result Value AV Peak Grad mmHg 41.22 Mean Aortic Valve Gradient (MAVG) 25 LV end cristina diam cm 3.2 LV end sys diam cm 2.5 Aortic Root Diam cm 2.9 LA vol index ml/m2 32 LVOT Peak Abrahan m/sec 0.85 AV Peak Abrahan m/sec 3.21 MV Mean Grad mmHg 5 MVA by PHT cm2 1.83 E/A Ratio 1.64 TR Abrahan m/sec 3.18 E/E' 31.1 AV Area (VTI) cm2 0.74 SEPTUM DIASTOLIC CM 1 PW DIASTOLIC CM 1.3 LA VOLUME 59.9 Narrative Transthoracic Echocardiography Report (TTE) Patient name OPAL Bryson Rafael 1945 Patient ID (UPI) [id number] Indications: Cardiac arrest, COPD, Atrial fibrillation, Aortic [...] lbs. 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 A complete set of results can be found in Results Review. @[email or web address]@ @LASTECGRESULT@ Impressions/Assessment/ Plan: Status post cardiopulmonary arrest (cardiac versus infection versus seizure) Sepsis possible lung versus urine source NSTEMI Moderate to severe aortic stenosis -patient extubated and feeling better. Stable from cardiac standpoint. Reviewed plan of care with him including follow-up structural clinic with possibility of further assessment of his moderate to severe aortic stenosis with cardiac catheterization. -continue with supportive care recent lung infection, lung disease. -we will arrange for outpatient follow-up within the next 1-2 weeks and structural clinic. By: Chitra Robison APRN, AUTOMAT WATCHER; 02/02/2024, 9:00 AM FORMS DESIGNER S DESIGNER * Ector Carroll MD - 02/02/2024 8:47 AM CST [facility] INPATIENT DAILY PROGRESS NOTE Papito Joseph is a 78 y.o. male at Hospital LOS: 7 days Subjective: Interval History: Still restless overnight. Had Precedex overnight. Has weakness and probably ICU myopathy. No BMs since admission. He is not in any acute distress and denies any pain or discomfort at this moment. He is still on oxygen supplementation. Review of Systems: A 14 point comprehensive review of systems was negative except what is documented in interval history above. Objective: Exam: General: Well developed, well nourished, in no distress, lying in the bed comfortably Skin: Normal appearance, decreased turgor, no rashes HEENT: Normocephalic, atraumatic, no flaring Eyes: nonicteric, intact extra occular movement, PERRL Neck: normal, supple, no lymphadenopathy Cardiovascular: regular rate and rhythm, S1, S2 normal, no murmur, click, rub or gallop Lungs: clear to ausculation, normal respirations, normal precautions Abdominal: soft, non-tender; bowel sounds normal; no masses, no organomegaly : external genitalia normal in appearance Musculoskeletal: no deformities, joint mobility appears intact, no clubbing Neuro: Non-focal, CN intact, sensory and motor intact Psychological: alert and oriented X3, appropriate mood and affect, Intact judgement and memory although had episodes of agitation overnight Current Medications: No recently discontinued medications to reconcile Medication Modifications: I will discontinue the antibiotics and will start switching the steroids to oral. We will also switch the rest of the medications to oral when an equivalent is available Lab Results: Lab Results Component Value Date PHARTERIAL 7.42 01/28/2024 PO2ART 107 (H) 01/28/2024 [id number] 48 (H) 01/28/2024 O2ART 98 01/28/2024 Lab Results Component Value Date WBC 11.41 02/01/2024 HEMOGLOBIN 9.7 (L) 02/01/2024 PLATELETCNT 283 02/01/2024 MCV 92.6 02/01/2024 Lab Results Component Value Date SODIUM 148 (H) 02/01/2024 POTASSIUM 4.0 02/01/2024 CHLORIDE 109 (H) 02/01/2024 CO2VEN 32 (H) 02/01/2024 ANIONGAP 11.0 02/01/2024 GLUCOSE 150 (H) 02/01/2024 BUN 24 02/01/2024 CREATININE 0.70 02/01/2024 BCRATIO8 34 (H) 02/01/2024 TOTALPROTEIN 6.5 01/28/2024 ALBUMIN 2.9 (L) 01/30/2024 CALCIUM 9.4 02/01/2024 TBIL 0.5 01/28/2024 SGOTAST 13 01/28/2024 SGPTALT 10 01/28/2024 ALKALINEPHO 59 01/28/2024 GFRNA >60 02/01/2024 GFRA >60 02/01/2024 Lab Results Component Value Date CPK 407 (H) 01/26/2024 Lab Results Component Value Date LACTICA 1.9 01/26/2024 Lab Results Component Value Date GLUCOSEPOCT 157 (H) 02/02/2024 EKG: EKG 12 LEAD Result Date: 01/28/2024 Normal sinus rhythm Right bundle branch block Abnormal ECG no change since 25 January 2024 11:44a.m. Confirmed by Robinson Robison ([id number]) on 01/28/2024 3:01:13 PM EKG 12 LEAD Result Date: 01/28/2024 Sinus tachycardia Rightward axis Nonspecific intraventricular block Abnormal ECG No previous ECGs available Confirmed by Robinson Robison ([id number]) on 01/28/2024 2:58:37 PM Imaging: No results found. I independently reviewed images and test results. My personal interpretation is: No new imaging studies were done Assessment: Active Hospital Problems Diagnosis Date Noted Seizures (HCC) SD (myocardial infarction) (HCC) CVA (cerebral vascular accident) (HCC) COPD (chronic obstructive pulmonary disease) (HCC) BPH (benign prostatic hyperplasia) A-fib (HCC) Aortic valve stenosis Mitral valve stenosis Chronic diastolic heart failure (HCC) CAD (coronary artery disease) TIA (transient ischemic attack) HLD (hyperlipidemia) Pulmonary HTN (HCC) DM type 2 (diabetes mellitus, type 2) ([facility]) Cardiopulmonary arrest with successful resuscitation ([facility]) 01/25/2024 Resolved Hospital Problems No resolved problems to display. Vitals: 02/02/24 0400 02/02/24 0500 02/02/24 0600 02/02/24 0700 Temp: TempSrc: Heart Rate (Monitor): 91 93 95 88 Pulse: 92 91 95 89 Resp: BP: 129/78 130/71 128/86 135/75 Height: Weight: SpO2: 100% 96% 98% 100% O2 Flow Rate (l/min): 6 l/min (decreased to 4) O2 Device: Nasal cannula I/O last 3 completed shifts: In: 1886 [P.O.:120; I.V.:1413; IV Piggyback:354] Out: 2124 [Urine:2124] BMI: Body mass index is 22.91 kg/m??. Lines: Peripheral and PICC line Tubes: None Catheters: Blankenship Other providers notes reviewed: Cardiology notes reviewed Plan: Plan 1. Status post cardio respiratory arrest and resuscitation. The patient is now extubated for few days. He has not been eating so far and he is going to have a swallow evaluation. He has been refusinginsertion of an NG-tube. 2. Sepsis present on admission. Probably secondarily to pneumonia. The patient received a full course of antibiotic therapy which was completed today. I will discontinue the antibiotics. 3. Non ST-elevation myocardial infarction. The patient was put on the heparin drip in the beginning. The echocardiogram showed a normal left ventricular ejection fraction but he has moderate to severe aortic stenosis. Cardiology following and the plan is to follow-up as outpatient for the moderate to severe aortic stenosis. 4. Aspiration pneumonia. Treated with IV antibiotics. Treatment course is completed. The patient grew Streptococcus pneumoniae from the sputum cultures. 5. Urinary tract infection with Serratia marcescens. The patient has been treated with cefepime forthe pneumonia which will also cover the UTI. He is still has a Blankenship catheter in place which shouldbe eventually removed. 6. Chronic diastolic heart failure. The patient has a normal left ventricular ejection fraction butevidence of diastolic dysfunction. At this moment he is not in any acute clinical failure. 7. History of atrial fibrillation. This has been started in February of 2022. The patient had cardioversion. 8. Hypernatremia. Sodium level is still elevated. Encourage oral hydration. 9. Acute metabolic encephalopathy. The patient became agitated overnight and had to be put on the Precedex again. Currently his mental status has improved. Care plan discussed with: Patient and the care team Activity: Bed Rest IV fluids: Maintenance treatment but will start oral hydration. Diet: Dysphagia 1 diet will be started after speech therapy. Level of Care: Continue same care. Anticipated Disposition at discharge: Acute rehabilitation facility Social Determinants: The patient was living at home. At this moment in his to go to a retirement facility. VTE Prophylaxis: Lovenox 40mg Q24h Expected discharge date: 02/05/2024 Total critical care time not including any procedure time: 35 minutes By: Ector Carroll MD, 02/02/2024 8:48 AM FORMS DESIGNER S DESIGNER * April Walton MD - 02/01/2024 6:14 PM CST [facility] INPATIENT DAILY PROGRESS NOTE Papito Joseph is a 78 y.o. male at Hospital LOS: 7 days Assessment: Active Hospital Problems Diagnosis Date Noted Seizures (HCC) SD (myocardial infarction) (HCC) CVA (cerebral vascular accident) (HCC) COPD (chronic obstructive pulmonary disease) (HCC) BPH (benign prostatic hyperplasia) A-fib (HCC) Aortic valve stenosis Mitral valve stenosis Chronic diastolic heart failure (HCC) CAD (coronary artery disease) TIA (transient ischemic attack) HLD (hyperlipidemia) Pulmonary HTN (HCC) DM type 2 (diabetes mellitus, type 2) ([facility]) Cardiopulmonary arrest with successful resuscitation ([facility]) 01/25/2024 Resolved Hospital Problems No resolved problems to display. Vitals: 02/02/24 0203 02/02/24 0300 02/02/24 0400 02/02/24 0500 Temp: TempSrc: Heart Rate (Monitor): 77 86 91 93 Pulse: 65 87 92 91 Resp: 20 18 17 19 BP: (!) 84/56 100/63 129/78 130/71 Height: Weight: SpO2: 100% 98% 100% 96% I/O last 3 completed shifts: In: 2052.8 [P.O.:130; I.V.:1469.8; IV Piggyback:454] Out: 2450 [Urine:2450] Plan: Plan Cardiopulmonary Arrest Ddx: Cardiac vs Infection vs Seizure 3 mins CPR with ROSC achieved Intubated by ERP Newspaper Delivery Counselor consulted Admitted to ICU 01/26/2024 --- echocardiogram and evaluation by housing and residence life director, Neurology and Cardiology Services. Patient remains on supportive care while intubated 01/31/2024: Mr. Joseph was extubated on 01/28 and placed on BiPAP at . Overnight on the , hewas placed on Precedex gtt due to agitation (taking off BiPAP mask and trying to get OOB). Today, he remains on Precedex which is being gradually weaned. 02/01/2024: Patient has been weaned off Precedex, now on NC. Plan to proceed with BUSINESS TECHNOLOGY TEACHER, PT/ OT evaluations in the AM. Sepsis possible lung vs urine source Temp 100.9, HR 109, Hypotensive SBP 70-80, Lactic Acid 10.4 1150 IVF bolus given Empiric antibiotics started 01/26/2024 --- no growth to date on blood culture testing x2 nor urine culture. Antibiotic therapy continues 01/27/2024 --- no growth to date on blood culture testing x2. Urine culture positive for Serratia marcescens and Enterococcus faecalis on preliminary testing. 01/28/2024 --- respiratory culture positive for Pseudomonas aeruginosa and Streptococcal pneumoniae. Antibiotic therapy continues with Zosyn 01/31/2024: Patient continues to receive treatment with Zosyn. Blood cultures have been negative todate x 2. NSTEMI EKG ST Troponin 61-108-152 Heparin gtt was initiated ASA given Echocardiogram revealed normal LV function with no regional wall motion abnormalities. LVEF 60-65%.Grade III Diastolic Dysfunction noted in addition to mild to moderate mitral stenosis with mild MR,moderate to severe aortic stenosis. Cardiology consulted with recommendation to perform LHC if patient remains stable after extubation.Will follow-up plans for next week. Concerns for Aspiration vs Community Acquired Pneumonia CXR Diffuse interstitial prominence within both lungs, with patchy opacities in the bases. Small effusions. CT Chest/ A/P-There is patchy consolidation at both lung bases, worse on the left. There is a large amount of debris in the left mainstem bronchus extending into the other bronchi in the left lung MRSA PCR negative Empirically initiated on Zosyn and azithromycin 01/26/2024 ---antibiotic therapy continues. No growth to date on blood culture nor respiratory culture testing 01/30/2024 --- respiratory culture positive for Pseudomonas aeruginosa on moderate Streptococcus pneumoniae Patient continues to receive Zosyn at this time. Breakthrough Seizure Postictal status Heat CT-No evidence of acute large vessel territorial infarction. 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 Keppra started Neuro consulted EEG ordered 01/26/2024 ---neurology evaluation with the addition of Vimpat to current management 01/31/2024: No further seizure activity noted. Acute Cystitis UA + WBC Esterase, few bacteria , small amount epithelial cells, and WBC 11-20 Urine culture pending Pt already started on empiric Zosyn 01/26/2024 ---no growth to date. Antibiotic therapy continues 01/29/2024 --- urine culture sensitivities identify Serratia marcescens and Enterococcus faecalis Type 2 DM A1c 5.6 BS stable Low dose SSI 01/26/2024 ---continue monitor fingerstick glucose levels Chronic Heart Failure with Preserved EF /Pulmonary HTN In no exacerbation Last Echo 02/25/2023 EF 60-65% PO meds on hold Repeat echocardiogram revealed normal LV function with no regional wall motion abnormalities. LVEF 60-65%. Grade III Diastolic Dysfunction noted in addition to mild to moderate mitral stenosis with mild MR, moderate to severe aortic stenosis. Hopefully, once able to tolerate po, we can restart his oral medications. For now, he is on gentle hydration until a formal BUSINESS TECHNOLOGY TEACHER evaluation can be performed. Moderate Aortic Stenosis Severe Mitral Stenosis Cardiology is considering LHC depending on patient's status post-extubation. 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 COPD PFT from 07/27/2022 revealed moderate obstructive pattern consistent with COPD Patient is utilizing BiPAP at HS Hx of CVA Per chart review 3 years ago recovered Hypernatremia 01/31: Sodium level 148 today with Cl level of 109. D5LR switched to D5W for now. Hopefully, once BUSINESS TECHNOLOGY TEACHER evaluation can be performed, this can be discontinued. Will repeat BMP in the AM to reassess. VTE Prophylaxis: Full dose Lovenox Expected discharge date: TBD Subjective: Interval History: Mr. Joseph was seen and examined at bedside. He is now awake and alert, though confused. He does not endorse sx of shortness of breath and is comfortable on NC. Per nursing, he is tolerating ice chips. Plan to proceed with BUSINESS TECHNOLOGY TEACHER evaluation in the AM to restart diet and po medications in addition to PT/ OT evaluations. Review of Systems: A 14 point comprehensive review of systems was negative, except as documented in HPI. Objective: Exam: General: Awake, alert though confused Skin: normal coloration and turgor, no rashes. HEENT: normocephalic, atraumatic. Neck: Supple. No JVD, lymphadenopathy thyromegaly or carotid bruits auscultated. CVS: RRR, S1/S2 normal, no murmurs, gallops or rubs. Chest: Breath sounds are diminished with rare expiratory wheezing noted Abdominal: soft, nontender, nondistended. Positive Bowel sounds, no organomegaly appreciated. Extremities: no edema, no clubbing or cyanosis. Neuro: Presently awake and alert, confused but calm and able to be directed. Lab Results: Lab Results Component Value Date PHARTERIAL 7.42 01/28/2024 PO2ART 107 (H) 01/28/2024 [id number] 48 (H) 01/28/2024 O2ART 98 01/28/2024 Lab Results Component Value Date WBC 11.41 02/01/2024 HEMOGLOBIN 9.7 (L) 02/01/2024 PLATELETCNT 283 02/01/2024 MCV 92.6 02/01/2024 Lab Results Component Value Date SODIUM 148 (H) 02/01/2024 POTASSIUM 4.0 02/01/2024 CHLORIDE 109 (H) 02/01/2024 CO2VEN 32 (H) 02/01/2024 ANIONGAP 11.0 02/01/2024 GLUCOSE 150 (H) 02/01/2024 BUN 24 02/01/2024 CREATININE 0.70 02/01/2024 BCRATIO8 34 (H) 02/01/2024 TOTALPROTEIN 6.5 01/28/2024 ALBUMIN 2.9 (L) 01/30/2024 CALCIUM 9.4 02/01/2024 TBIL 0.5 01/28/2024 SGOTAST 13 01/28/2024 SGPTALT 10 01/28/2024 ALKALINEPHO 59 01/28/2024 GFRNA >60 02/01/2024 GFRA >60 02/01/2024 Lab Results Component Value Date CPK 407 (H) 01/26/2024 No results found for: FOLATE Lab Results Component Value Date LACTICA 1.9 01/26/2024 No results found for: [id number] No results found for: FERRITIN Lab Results Component Value Date GLUCOSEPOCT 157 (H) 02/02/2024 EKG: EKG 12 LEAD Result Date: 01/28/2024 Normal sinus rhythm Right bundle branch block Abnormal ECG no change since 25 January 2024 11:44a.m. Confirmed by Robinson Robison ([id number]) on 01/28/2024 3:01:13 PM EKG 12 LEAD Result Date: 01/28/2024 Sinus tachycardia Rightward axis Nonspecific intraventricular block Abnormal ECG No previous ECGs available Confirmed by Robinson Robison ([id number]) on 01/28/2024 2:58:37 PM Imaging: No results found. By: April Walton M.D. S DESIGNER * April Walton MD - 01/31/2024 5:49 PM CST [facility] INPATIENT DAILY PROGRESS NOTE Papito Joseph is a 78 y.o. male at Hospital LOS: 6 days Assessment: Active Hospital Problems Diagnosis Date Noted Seizures (HCC) SD (myocardial infarction) (HCC) CVA (cerebral vascular accident) (HCC) COPD (chronic obstructive pulmonary disease) (HCC) BPH (benign prostatic hyperplasia) A-fib (HCC) Aortic valve stenosis Mitral valve stenosis Chronic diastolic heart failure (HCC) CAD (coronary artery disease) TIA (transient ischemic attack) HLD (hyperlipidemia) Pulmonary HTN (HCC) DM type 2 (diabetes mellitus, type 2) ([facility]) Cardiopulmonary arrest with successful resuscitation ([facility]) 01/25/2024 Resolved Hospital Problems No resolved problems to display. Vitals: 02/02/24 0203 02/02/24 0300 02/02/24 0400 02/02/24 0500 Temp: TempSrc: Heart Rate (Monitor): 77 86 91 93 Pulse: 65 87 92 91 Resp: 20 18 17 19 BP: (!) 84/56 100/63 129/78 130/71 Height: Weight: SpO2: 100% 98% 100% 96% I/O last 3 completed shifts: In: 2052.8 [P.O.:130; I.V.:1469.8; IV Piggyback:454] Out: 2450 [Urine:2450] Plan: Plan Cardiopulmonary Arrest Ddx: Cardiac vs Infection vs Seizure 3 mins CPR with ROSC achieved Intubated by ERP Newspaper Delivery Counselor consulted Admitted to ICU 01/26/2024 --- echocardiogram and evaluation by housing and residence life director, Neurology and Cardiology Services. Patient remains on supportive care while intubated 01/31/2024: Mr. Joseph was extubated on 01/28 and placed on BiPAP at HS. Overnight on the , hewas placed on Precedex gtt due to agitation (taking off BiPAP mask and trying to get OOB). Today, he remains on Precedex which is being gradually weaned. Sepsis possible lung vs urine source Temp 100.9, HR 109, Hypotensive SBP 70-80, Lactic Acid 10.4 1150 IVF bolus given Empiric antibiotics started 01/26/2024 --- no growth to date on blood culture testing x2 nor urine culture. Antibiotic therapy continues 01/27/2024 --- no growth to date on blood culture testing x2. Urine culture positive for Serratia marcescens and Enterococcus faecalis on preliminary testing. 01/28/2024 --- respiratory culture positive for Pseudomonas aeruginosa and Streptococcal pneumoniae. Antibiotic therapy continues with Zosyn 01/31/2024: Patient continues to receive treatment with Zosyn. Blood cultures have been negative todate x 2. NSTEMI EKG ST Troponin 61-108-152 Heparin gtt was initiated ASA given Echocardiogram revealed normal LV function with no regional wall motion abnormalities. LVEF 60-65%.Grade III Diastolic Dysfunction noted in addition to mild to moderate mitral stenosis with mild MR,moderate to severe aortic stenosis. Cardiology consulted with recommendation to perform LHC if patient remains stable after extubation.Will follow-up plans for next week. Concerns for Aspiration vs Community Acquired Pneumonia CXR Diffuse interstitial prominence within both lungs, with patchy opacities in the bases. Small effusions. CT Chest/ A/P-There is patchy consolidation at both lung bases, worse on the left. There is a large amount of debris in the left mainstem bronchus extending into the other bronchi in the left lung MRSA PCR negative Empirically initiated on Zosyn and azithromycin 01/26/2024 ---antibiotic therapy continues. No growth to date on blood culture nor respiratory culture testing 01/30/2024 --- respiratory culture positive for Pseudomonas aeruginosa on moderate Streptococcus pneumoniae Patient continues to receive Zosyn at this time. Breakthrough Seizure Postictal status Heat CT-No evidence of acute large vessel territorial infarction. 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 Keppra started Neuro consulted EEG ordered 01/26/2024 ---neurology evaluation with the addition of Vimpat to current management 01/31/2024: No further seizure activity noted. Acute Cystitis UA + WBC Esterase, few bacteria , small amount epithelial cells, and WBC 11-20 Urine culture pending Pt already started on empiric Zosyn 01/26/2024 ---no growth to date. Antibiotic therapy continues 01/29/2024 --- urine culture sensitivities identify Serratia marcescens and Enterococcus faecalis Type 2 DM A1c 5.6 BS stable Low dose SSI 01/26/2024 ---continue monitor fingerstick glucose levels Chronic Heart Failure with Preserved EF /Pulmonary HTN In no exacerbation Last Echo 02/25/2023 EF 60-65% PO meds on hold Repeat echocardiogram revealed normal LV function with no regional wall motion abnormalities. LVEF 60-65%. Grade III Diastolic Dysfunction noted in addition to mild to moderate mitral stenosis with mild MR, moderate to severe aortic stenosis. Hopefully, once able to tolerate po, we can restart his oral medications. For now, he is on gentle hydration until a formal BUSINESS TECHNOLOGY TEACHER evaluation can be performed. Moderate Aortic Stenosis Severe Mitral Stenosis Cardiology is considering C depending on patient's status post-extubation. 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 COPD PFT from 07/27/2022 revealed moderate obstructive pattern consistent with COPD Patient is utilizing BiPAP at HS Hx of CVA Per chart review 3 years ago recovered VTE Prophylaxis: Full dose Lovenox Expected discharge date: TBD Subjective: Interval History: Mr. Joseph was seen and examined at bedside. He was placed on Precedex gtt overnight due to agitation, now being gradually weaned. On BiPAP, patient is maintaining saturations. Plan to continue weaning Precedex throughout the day. Once off and more alert, will proceed with BUSINESS TECHNOLOGY TEACHER evaluation to restart diet and po medications in addition to PT/ OT evaluations. Review of Systems: A 14 point comprehensive review of systems was negative, except as documented in HPI. Objective: Exam: General: Sedated on Precedex gtt Skin: normal coloration and turgor, no rashes. HEENT: normocephalic, atraumatic. Neck: Supple. No JVD, lymphadenopathy thyromegaly or carotid bruits auscultated. CVS: RRR, S1/S2 normal, no murmurs, gallops or rubs. Chest: Breath sounds are diminished throughout Abdominal: soft, nontender, nondistended. Positive Bowel sounds, no organomegaly appreciated. Extremities: no edema, no clubbing or cyanosis. Neuro: Presently sedated on Precedex. Lab Results: Lab Results Component Value Date PHARTERIAL 7.42 01/28/2024 PO2ART 107 (H) 01/28/2024 [id number] 48 (H) 01/28/2024 O2ART 98 01/28/2024 Lab Results Component Value Date WBC 11.41 02/01/2024 HEMOGLOBIN 9.7 (L) 02/01/2024 PLATELETCNT 283 02/01/2024 MCV 92.6 02/01/2024 Lab Results Component Value Date SODIUM 148 (H) 02/01/2024 POTASSIUM 4.0 02/01/2024 CHLORIDE 109 (H) 02/01/2024 CO2VEN 32 (H) 02/01/2024 ANIONGAP 11.0 02/01/2024 GLUCOSE 150 (H) 02/01/2024 BUN 24 02/01/2024 CREATININE 0.70 02/01/2024 BCRATIO8 34 (H) 02/01/2024 TOTALPROTEIN 6.5 01/28/2024 ALBUMIN 2.9 (L) 01/30/2024 CALCIUM 9.4 02/01/2024 TBIL 0.5 01/28/2024 SGOTAST 13 01/28/2024 SGPTALT 10 01/28/2024 ALKALINEPHO 59 01/28/2024 GFRNA >60 02/01/2024 GFRA >60 02/01/2024 Lab Results Component Value Date CPK 407 (H) 01/26/2024 No results found for: FOLATE Lab Results Component Value Date LACTICA 1.9 01/26/2024 No results found for: [id number] No results found for: FERRITIN Lab Results Component Value Date GLUCOSEPOCT 157 (H) 02/02/2024 EKG: EKG 12 LEAD Result Date: 01/28/2024 Normal sinus rhythm Right bundle branch block Abnormal ECG no change since 25 January 2024 11:44a.m. Confirmed by Robinson Robison ([id number]) on 01/28/2024 3:01:13 PM EKG 12 LEAD Result Date: 01/28/2024 Sinus tachycardia Rightward axis Nonspecific intraventricular block Abnormal ECG No previous ECGs available Confirmed by Robinson Robison ([id number]) on 01/28/2024 2:58:37 PM Imaging: No results found. By: April Walton M.D. S DESIGNER * Gagan Montiel MD - 01/30/2024 11:11 PM CST [facility] INPATIENT DAILY PROGRESS NOTE Papito Joseph is a 78 y.o. male at Hospital LOS: 5 days Assessment: Active Hospital Problems Diagnosis Date Noted Seizures (HCC) SD (myocardial infarction) (HCC) CVA (cerebral vascular accident) (HCC) COPD (chronic obstructive pulmonary disease) (HCC) BPH (benign prostatic hyperplasia) A-fib (HCC) Aortic valve stenosis Mitral valve stenosis Chronic diastolic heart failure (HCC) CAD (coronary artery disease) TIA (transient ischemic attack) HLD (hyperlipidemia) Pulmonary HTN (HCC) DM type 2 (diabetes mellitus, type 2) (HCC) Cardiopulmonary arrest with successful resuscitation ([facility]) 01/25/2024 Resolved Hospital Problems No resolved problems to display. Vitals: 01/30/24199901/30/24204401/30/24209901/30/24 2200 Temp: TempSrc: Heart Rate (Monitor): (!) 111 (!) 117 (!) 115 (!) 109 Pulse: 108 (!) 114 (!) 116 110 Resp: (!) 31 24 21 BP: 156/89 146/81 160/81 Height: Weight: SpO2: 95% (!) 89% (!) 89% (!) 89% I/O last 3 completed shifts: In: 903.7 [I.V.:573.7; IV Piggyback:330] Out: 4200 [Urine:4200] Plan: Plan Cardiopulmonary Arrest Ddx: Cardiac vs Infection vs Seizure 3 mins CPR with ROS achieved Intubated by ERP Newspaper Delivery Counselor consulted Admitted to ICU 01/26/2024 --- echocardiogram and evaluation by housing and residence life director, Neurology and Cardiology Services. Patient remains on supportive care while intubated Sepsis possible lung vs urine source Temp 100.9, HR 109, Hypotensive SBP 70-80, Lactic Acid 10.4 1150 IVF bolus given Blood and urine Cult pending Empiric antibiotics started 01/26/2024 --- no growth to date on blood culture testing x2 nor urine culture. Antibiotic therapy continues 01/27/2024 --- no growth to date on blood culture testing x2. Urine culture positive for Serratia marcescens and Enterococcus faecalis on preliminary testing. 01/28/2024 --- respiratory culture positive for Pseudomonas aeruginosa and streptococcal pneumonia.Antibiotic therapy continues with Zosyn NSTEMI EKG ST Troponin 61-108-152 Heparin gtt ASA given Echo ordered Cardiology consulted 01/26/2024 ---echocardiogram obtained, cardiology evaluation Concerns for Aspiration vs Community Acquired Pneumonia CXR Diffuse interstitial prominence within both lungs, with patchy opacities in the bases. Small effusions. CT Chest/ A/P-There is patchy consolidation at both lung bases, worse on the left. There is a large amount of debris in the left mainstem bronchus extending into the other bronchi in the left lung MRSA Pcr negative Urine antigen and Procalcitonin ordered Empiric Zosyn and azithromycin 01/26/2024 ---antibiotic therapy continues. No growth to date on blood culture nor respiratory culture testing 01/30/2024 --- respiratory culture positive for Pseudomonas aeruginosa on moderate Streptococcus pneumoniae Breakthrough Seizure Postictal status Heat CT-No evidence of acute large vessel territorial infarction. 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 Keppra started Neuro consulted EEG ordered 01/26/2024 ---neurology evaluation with the addition of Vimpat to current management Possible Acute Cystitis UA + WBC Esterase, few bacteria , small amount epithelial cells, and WBC 11-20 Urine culture pending Pt already started on empiric Zosyn 01/26/2024 ---no growth to date. Antibiotic therapy continues 01/29/2024 --- urine culture sensitivities identify Serratia marcescens and Enterococcus faecalis Type 2 DM A1c 5.6 BS stable Low dose SSI 01/26/2024 ---continue monitor fingerstick glucose levels Chronic diastolic Heart Failure /Pulmonary HTN In no exacerbation Last Echo 02/25/2023 EF 60-65% PO meds on hold 01/26/2024 ---echocardiogram testing Moderate Aortic Stenosis Severe Mitral Stenosis Noted on Echo 07/27/2023 Caroid Aortic Stenosis S/p left CEA 01/2022 History of Atrial Fibrillation-onset 02/2022 S/p ablation 07/2022 s/p cardio version 09/24/2022 On eliquis at home but NPO therefore will start weight base Lovenox BID COPD PFT from 07/27/2022 Show moderate obstructive pattern consistent with COPD Hx of CVA Per chart review 3 years ago recovered VTE Prophylaxis: Full dose Lovenox Expected discharge date: 01/27/2024 Subjective: Interval History: Patient seen at bedside in ICU. Patient responding well to supportive care and oxygen weaned down to nasal cannula. PT OT evaluation requested. Swallow study assessment pending Review of Systems: A 14 point comprehensive review of systems was negative, except as documented in HPI. Objective: Exam: General: Alert and oriented times 2-3, using O2 via nasal cannula Skin: normal coloration and turgor, no rashes. HEENT: normocephalic, atraumatic. Pupils equal, round and reactive to light. Extraocular movements intact. Oronasopharynx pink and moist, no lesion or exudate. Neck: Supple. No JVD, lymphadenopathy thyromegaly or carotid bruits auscultated. CVS: RRR, S1/S2 normal, no murmurs, gallops or rubs. Chest: O2 via nasal cannula, no focal consolidation. Abdominal: soft, nontender, nondistended. Positive Bowel sounds, no organomegaly appreciated. Extremities: no edema, no clubbing or cyanosis. Neuro: Alert and oriented x2, mild confusion persist, strength 4 to 5/5 upper extremities bilaterally, 4-5 lower extremities bilaterally. Lab Results: Lab Results Component Value Date PHARTERIAL 7.42 01/28/2024 PO2ART 107 (H) 01/28/2024 [id number] 48 (H) 01/28/2024 O2ART 98 01/28/2024 Lab Results Component Value Date WBC 8.56 01/30/2024 HEMOGLOBIN 9.3 (L) 01/30/2024 PLATELETCNT 223 01/30/2024 MCV 91.0 01/30/2024 Lab Results Component Value Date SODIUM 144 01/30/2024 POTASSIUM 4.0 01/30/2024 CHLORIDE 105 01/30/2024 CO2VEN 32 (H) 01/30/2024 ANIONGAP 11.0 01/30/2024 GLUCOSE 104 (H) 01/30/2024 BUN 28 (H) 01/30/2024 CREATININE 0.74 01/30/2024 BCRATIO8 38 (H) 01/30/2024 TOTALPROTEIN 6.5 01/28/2024 ALBUMIN 2.9 (L) 01/30/2024 CALCIUM 9.8 01/30/2024 TBIL 0.5 01/28/2024 SGOTAST 13 01/28/2024 SGPTALT 10 01/28/2024 ALKALINEPHO 59 01/28/2024 GFRNA >60 01/30/2024 GFRA >60 01/30/2024 Lab Results Component Value Date CPK 407 (H) 01/26/2024 No results found for: FOLATE Lab Results Component Value Date LACTICA 1.9 01/26/2024 No results found for: [id number] No results found for: FERRITIN Lab Results Component Value Date GLUCOSEPOCT 111 (H) 01/30/2024 EKG: EKG 12 LEAD Result Date: 01/28/2024 Normal sinus rhythm Right bundle branch block Abnormal ECG no change since 25 January 2024 11:44a.m. Confirmed by Robinson Robison ([id number]) on 01/28/2024 3:01:13 PM EKG 12 LEAD Result Date: 01/28/2024 Sinus tachycardia Rightward axis Nonspecific intraventricular block Abnormal ECG No previous ECGs available Confirmed by Robinson Robison ([id number]) on 01/28/2024 2:58:37 PM Imaging: XR CHEST SINGLE VIEW PORTABLE Result Date: 01/30/2024 IMPRESSION: Small right pleural effusion slightly increased. Unchanged trace left effusion. Unchanged diffuse interstitial thickening and hazy opacities may be due to slightly worsened pulmonary edema or infection. Removal of endotracheal and gastric tubes. By: Gagan Montiel MD, 01/30/2024 11:11 PM FORMS DESIGNER S DESIGNER * Spenser Leonard MD - 01/30/2024 10:03 AM CST INPATIENT PROGRESS NOTE - Newspaper Delivery Counselor Papito Joseph is a 78 y.o. male at Hospital Day (LOS: 4 days) This patient has been followed by Critical Care because of: Respiratory failure, pneumonia Subjective: Patient was extubated without any difficulty yesterday and was on BiPAP overnight. He is weak and debilitated has some difficulty coughing up secretions. Objective: Temp Av.8 ??F (37.1 ??C) Min: 98.2 ??F (36.8 ??C) Max: 99.3 ??F (37.4 ??C) BP Min: 136/84 Max: 178/88 Pulse Av.3 Min: 95 Max: 122 Heart Rate (Monitor) Av.5 Min: 94 Max: 123 Resp Av.5 Min: 13 Max: 34 SpO2 Av.4 % Min: 90 % Max: 99 % O2 Flow Rate (l/min): 3 l/min I/O last 3 completed shifts: In: 1511.2 [I.V.:261.2; NG/GT:930; IV Piggyback:320] Out: 4650 [Urine:4650] Stool Occurrence: 0 (01/27/24 0500) Weights: Wt Readings from Last 3 Encounters: 01/25/24 159 lb 11.2 oz (72.4 kg) PHYSICAL EXAM: Awake and following commands interacting blood pressure was 157/95 heart rate was 94 respiratory rate was 16 oxygen saturation was 91% on 3 L. HEENT no discharge per ears or nose Oral mucosa was dry Neck no jugular distention Lungs rhonchi present bilaterally Cardiovascular was regular non tachycardic Abdomen was soft nontender Extremities shows no significant erythema Neurologically the patient is awake very hard of hearing and weak Skin shows no rash Musculoskeletal no evidence of joint inflammation Active Scheduled and PRN meds aspirin, 81 mg, Daily ceFEPIme (MAXIPIME) IV, 2 g, Q8H enoxaparin, 40 mg, Daily famotidine (PEPCID) IV, 20 mg, Daily furosemide, 40 mg, Daily insulin glargine, 10 Units, QAM insulin lispro (HumaLOG) injection, 2-12 Units, 4 times per day ipratropium-albuterol, 3 mL, Q4H lacosamide, 100 mg, Q12H PATTIE levETIRAcetam, 1,000 mg, Q12H magnesium replacement, 1 Each, BID methylPREDNIsolone, 40 mg, Q24H potassium replacement, 1 Each, BID acetaminophen, 650 mg, Q4H PRN Or acetaminophen, 650 mg, Q4H PRN glucose, 15 g, PRN Or dextrose, 12.5 g, PRN Or glucagon injection 1 mg, 1 mg, PRN Or glucagon injection 1 mg, 1 mg, PRN EPINEPHrine ANAPHYLAXIS ORDERABLE, 0.3 mg, Once PRN hydrALAZINE, 10 mg, Q1H PRN labetalol (NORMODYNE;TRANDATE) injection 10 mg, 10 mg, Q1H PRN lorazepam, 2 mg, Q1H PRN magnesium hydroxide, 30 mL, Daily PRN metoclopramide, 5 mg, Q6H PRN ondansetron, 4 mg, Q6H PRN polyethylene glycol, 17 g, BID PRN Prochlorperazine Edisylate, 10 mg, Q6H PRN senna, 1 Tablet, BID PRN Lab Review Lab Results Component Value Date WBC 8.56 01/30/2024 HEMOGLOBIN 9.3 (L) 01/30/2024 PLATELETCNT 223 01/30/2024 MCV 91.0 01/30/2024 Lab Results Component Value Date SODIUM 144 01/30/2024 POTASSIUM 4.0 01/30/2024 CHLORIDE 105 01/30/2024 CO2VEN 32 (H) 01/30/2024 GLUCOSE 104 (H) 01/30/2024 BUN 28 (H) 01/30/2024 CREATININE 0.74 01/30/2024 CALCIUM 9.8 01/30/2024 MAGNESIUM 2.0 01/30/2024 PHOSPHORUS 3.2 01/30/2024 ALBUMIN 2.9 (L) 01/30/2024 Lab Results Component Value Date SODIUM 144 01/30/2024 POTASSIUM 4.0 01/30/2024 CHLORIDE 105 01/30/2024 CO2VEN 32 (H) 01/30/2024 GLUCOSE 104 (H) 01/30/2024 ANIONGAP 11.0 01/30/2024 BUN 28 (H) 01/30/2024 CREATININE 0.74 01/30/2024 CALCIUM 9.8 01/30/2024 Lab Results Component Value Date SODIUM 144 01/30/2024 POTASSIUM 4.0 01/30/2024 CHLORIDE 105 01/30/2024 CO2VEN 32 (H) 01/30/2024 ANIONGAP 11.0 01/30/2024 GLUCOSE 104 (H) 01/30/2024 BUN 28 (H) 01/30/2024 CREATININE 0.74 01/30/2024 BCRATIO8 38 (H) 01/30/2024 TOTALPROTEIN 6.5 01/28/2024 ALBUMIN 2.9 (L) 01/30/2024 CALCIUM 9.8 01/30/2024 TBIL 0.5 01/28/2024 SGOTAST 13 01/28/2024 SGPTALT 10 01/28/2024 ALKALINEPHO 59 01/28/2024 GFRNA >60 01/30/2024 GFRA >60 01/30/2024 Lab Results Component Value Date INR 1.2 01/25/2024 PTP 15.1 (H) 01/25/2024 Lab Results Component Value Date PHARTERIAL 7.42 01/28/2024 PO2ART 107 (H) 01/28/2024 [id number] 48 (H) 01/28/2024 O2ART 98 01/28/2024 Radiology Results were Reviewed Labs/chart/meds reviewed. Assessment/Plan: 1. Neurologically: Will get PT, OT, speech to see, continue Keppra. No further seizures 2. Cardiovascular: No acute cardiac dysrhythmic events, blood pressure has increased some. Were holding antihypertensive medications since the patient can not take p.o yet. and he refused NG tube. 3. Respiratory: Continue with updrafts. Wean steroids 4. GI: Will wait for speech to clear him to be able to take p.o.. I suspect he will not be able to do so today yet 5. and renal: BUN and creatinine overall stable. Will start him on IV fluids until he is able totake p.o. 6. Endocrine: Blood sugars are on the lower side, adding glucose so IV fluids. Holding Lantus 7. Hematologically: CBC shows normal white blood cell count with improvement of the hemoglobin 8. DVT prophylaxis: Lovenox 9. Id: Continue antibiotics for Pseudomonas/strep pneumonia Critical Care will sign off, okay to downgrade Voice recognition software was used to dictate this note. In spite of proofreading, typographical and/or content errors may have occurred. Spenser Demarco MD 01/30/2024 10:03 AM FORMS DESIGNER S DESIGNER * Gagan Montiel MD - 01/29/2024 11:24 PM CST [facility] INPATIENT DAILY PROGRESS NOTE Critical care time: 35 minutes Papito Joseph is a 78 y.o. male at Hospital LOS: 4 days Assessment: Active Hospital Problems Diagnosis Date Noted Seizures (HCC) SD (myocardial infarction) (HCC) CVA (cerebral vascular accident) (HCC) COPD (chronic obstructive pulmonary disease) (HCC) BPH (benign prostatic hyperplasia) A-fib (HCC) Aortic valve stenosis Mitral valve stenosis Chronic diastolic heart failure (HCC) CAD (coronary artery disease) TIA (transient ischemic attack) HLD (hyperlipidemia) Pulmonary HTN (HCC) DM type 2 (diabetes mellitus, type 2) ([facility]) Cardiopulmonary arrest with successful resuscitation ([facility]) 01/25/2024 Resolved Hospital Problems No resolved problems to display. Vitals: 01/29/24 1730 01/29/24 1800 01/29/24 1900 01/29/24 2000 Temp: 99.3 ??F (37.4 ??C) TempSrc: Heart Rate (Monitor): (!) 110 (!) 106 (!) 115 (!) 123 Pulse: 109 106 (!) 111 (!) 122 Resp: BP: 153/90 (!) 151/99 178/88 Height: Weight: SpO2: 96% 96% 94% I/O last 3 completed shifts: In: 2668.1 [I.V.:371.1; NG/GT:1957; IV Piggyback:340] Out: 4600 [Urine:4600] Plan: Plan Cardiopulmonary Arrest Ddx: Cardiac vs Infection vs Seizure 3 mins CPR with ROS achieved Intubated by ERP Newspaper Delivery Counselor consulted Admitted to ICU 01/26/2024 --- echocardiogram and evaluation by housing and residence life director, Neurology and Cardiology Services. Patient remains on supportive care while intubated Sepsis possible lung vs urine source Temp 100.9, HR 109, Hypotensive SBP 70-80, Lactic Acid 10.4 1150 IVF bolus given Blood and urine Cult pending Empiric antibiotics started 01/26/2024 --- no growth to date on blood culture testing x2 nor urine culture. Antibiotic therapy continues 01/27/2024 --- no growth to date on blood culture testing x2. Urine culture positive for Serratia marcescens and Enterococcus faecalis on preliminary testing. 01/28/2024 --- respiratory culture positive for Pseudomonas aeruginosa and streptococcal pneumonia.Antibiotic therapy continues with Zosyn NSTEMI EKG ST Troponin 61-108-152 Heparin gtt ASA given Echo ordered Cardiology consulted 01/26/2024 ---echocardiogram obtained, cardiology evaluation Concerns for Aspiration vs Community Acquired Pneumonia CXR Diffuse interstitial prominence within both lungs, with patchy opacities in the bases. Small effusions. CT Chest/ A/P-There is patchy consolidation at both lung bases, worse on the left. There is a large amount of debris in the left mainstem bronchus extending into the other bronchi in the left lung MRSA Pcr negative Urine antigen and Procalcitonin ordered Empiric Zosyn and azithromycin 01/26/2024 ---antibiotic therapy continues. No growth to date on blood culture nor respiratory culture testing Breakthrough Seizure Postictal status Heat CT-No evidence of acute large vessel territorial infarction. 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 Keppra started Neuro consulted EEG ordered 01/26/2024 ---neurology evaluation with the addition of Vimpat to current management Possible Acute Cystitis UA + WBC Esterase, few bacteria , small amount epithelial cells, and WBC 11-20 Urine culture pending Pt already started on empiric Zosyn 01/26/2024 ---no growth to date. Antibiotic therapy continues 01/29/2024 --- urine culture sensitivities identify Serratia marcescens and Enterococcus faecalis Type 2 DM A1c 5.6 BS stable Low dose SSI 01/26/2024 ---continue monitor fingerstick glucose levels Chronic diastolic Heart Failure /Pulmonary HTN In no exacerbation Last Echo 02/25/2023 EF 60-65% PO meds on hold 01/26/2024 ---echocardiogram testing Moderate Aortic Stenosis Severe Mitral Stenosis Noted on Echo 07/27/2023 Caroid Aortic Stenosis S/p left CEA 01/2022 History of Atrial Fibrillation-onset 02/2022 S/p ablation 07/2022 s/p cardio version 09/24/2022 On eliquis at home but NPO therefore will start weight base Lovenox BID COPD PFT from 07/27/2022 Show moderate obstructive pattern consistent with COPD Hx of CVA Per chart review 3 years ago recovered VTE Prophylaxis: Full dose Lovenox Expected discharge date: 01/27/2024 Subjective: Interval History: Patient seen at bedside in ICU. Weaning trials has be provided and tolerated leading to patient being extubated Review of Systems: A 14 point comprehensive review of systems was negative, except as documented in HPI. Objective: Exam: General: BiPAP Skin: normal coloration and turgor, no rashes. HEENT: normocephalic, atraumatic. Pupils equal, round and reactive to light. Extraocular movements intact. Oronasopharynx pink and moist, no lesion or exudate. Neck: Supple. No JVD, lymphadenopathy thyromegaly or carotid bruits auscultated. CVS: RRR, S1/S2 normal, no murmurs, gallops or rubs. Chest: Poor inspiratory effort, no focal consolidation. Abdominal: soft, nontender, nondistended. Positive Bowel sounds, no organomegaly appreciated. Extremities: no edema, no clubbing or cyanosis. Neuro: Unable to assess, patient is sedated. Lab Results: Lab Results Component Value Date PHARTERIAL 7.42 01/28/2024 PO2ART 107 (H) 01/28/2024 [id number] 48 (H) 01/28/2024 O2ART 98 01/28/2024 Lab Results Component Value Date WBC 9.83 01/29/2024 HEMOGLOBIN 8.1 (L) 01/29/2024 PLATELETCNT 205 01/29/2024 MCV 91.9 01/29/2024 Lab Results Component Value Date SODIUM 144 01/29/2024 POTASSIUM 4.1 01/29/2024 CHLORIDE 108 (H) 01/29/2024 CO2VEN 31 (H) 01/29/2024 ANIONGAP 9.1 01/29/2024 GLUCOSE 197 (H) 01/29/2024 BUN 24 01/29/2024 CREATININE 0.87 01/29/2024 BCRATIO8 28 (H) 01/29/2024 TOTALPROTEIN 6.5 01/28/2024 ALBUMIN 3.0 (L) 01/29/2024 CALCIUM 9.4 01/29/2024 TBIL 0.5 01/28/2024 SGOTAST 13 01/28/2024 SGPTALT 10 01/28/2024 ALKALINEPHO 59 01/28/2024 GFRNA >60 01/29/2024 GFRA >60 01/29/2024 Lab Results Component Value Date CPK 407 (H) 01/26/2024 No results found for: FOLATE Lab Results Component Value Date LACTICA 1.9 01/26/2024 No results found for: [id number] No results found for: FERRITIN Lab Results Component Value Date GLUCOSEPOCT 92 01/29/2024 EKG: EKG 12 LEAD Result Date: 01/28/2024 Normal sinus rhythm Right bundle branch block Abnormal ECG no change since 25 January 2024 11:44a.m. Confirmed by Robinson Robison ([id number]) on 01/28/2024 3:01:13 PM EKG 12 LEAD Result Date: 01/28/2024 Sinus tachycardia Rightward axis Nonspecific intraventricular block Abnormal ECG No previous ECGs available Confirmed by Robinson Robison ([id number]) on 01/28/2024 2:58:37 PM Imaging: No results found. By: Gagan Montiel MD, 01/29/2024 11:25 PM FORMS DESIGNER S DESIGNER * Spenser Leonard MD - 01/29/2024 10:30 AM CST INPATIENT PROGRESS NOTE - Newspaper Delivery Counselor Papito Joseph is a 78 y.o. male at Hospital Day (LOS: 3 days) This patient has been followed by Critical Care because of: Respiratory failure, pneumonia, cardiopulmonary arrest, valvular heart disease Subjective: Patient is currently awake and following commands, he is very hard of hearing Under groin pressure support trials as sedation interruption Objective: Temp Av.2 ??F (37.3 ??C) Min: 97.7 ??F (36.5 ??C) Max: 100.4 ??F (38 ??C) BP Min: 110/63 Max: 157/77 Pulse Av Min: 82 Max: 116 Heart Rate (Monitor) Av.3 Min: 82 Max: 116 Resp Av.8 Min: 0 Max: 35 SpO2 Av.9 % Min: 95 % Max: 100 % I/O last 3 completed shifts: In: 4408 [I.V.:306; NG/GT:3452; IV Piggyback:650] Out: 3262 [Urine:3262] Stool Occurrence: 0 (01/27/24 0500) Weights: Wt Readings from Last 3 Encounters: 01/25/24 159 lb 11.2 oz (72.4 kg) PHYSICAL EXAM: Blood pressure was 145/72 heart rate was 92 respiratory rate was 23 oxygen saturation was 97%. T-max was 99.3. HEENT pupils are reactive Endotracheal tube is in place Or G-tube is in place Neck was jugular distention Lungs rhonchi present bilaterally minimal rales Cardiovascular was regular not tachycardic Abdomen was soft not distended Extremities was no significant erythema Neurologic is the patient is awake and he is interacting following commands moving all extremities Skin shows no rash Musculoskeletal no evidence of joint inflammation Active Scheduled and PRN meds aspirin, 81 mg, Daily enoxaparin, 40 mg, Daily EPINEPHrine, , famotidine (PEPCID) IV, 20 mg, Daily insulin glargine, 10 Units, QAM insulin lispro (HumaLOG) injection, 2-12 Units, 4 times per day ipratropium-albuterol, 3 mL, Q4H lacosamide, 100 mg, Q12H PATTIE levETIRAcetam, 1,000 mg, Q12H magnesium replacement, 1 Each, BID methylPREDNIsolone, 40 mg, Q12H piperacillin-tazobactam, 4.5 g, Q8H potassium replacement, 1 Each, BID acetaminophen, 650 mg, Q4H PRN Or acetaminophen, 650 mg, Q4H PRN glucose, 15 g, PRN Or dextrose, 12.5 g, PRN Or glucagon injection 1 mg, 1 mg, PRN Or glucagon injection 1 mg, 1 mg, PRN EPINEPHrine ANAPHYLAXIS ORDERABLE, 0.3 mg, Once PRN EPINEPHrine, , fentaNYL (PF), 25 mcg, Q1H PRN hydrALAZINE, 10 mg, Q1H PRN labetalol (NORMODYNE;TRANDATE) injection 10 mg, 10 mg, Q1H PRN lorazepam, 2 mg, Q1H PRN magnesium hydroxide, 30 mL, Daily PRN metoclopramide, 5 mg, Q6H PRN midazolam, 5 mg, Q1H PRN ondansetron, 4 mg, Q6H PRN polyethylene glycol, 17 g, BID PRN Prochlorperazine Edisylate, 10 mg, Q6H PRN senna, 1 Tablet, BID PRN Lab Review Lab Results Component Value Date WBC 9.83 01/29/2024 HEMOGLOBIN 8.1 (L) 01/29/2024 PLATELETCNT 205 01/29/2024 MCV 91.9 01/29/2024 Lab Results Component Value Date SODIUM 144 01/29/2024 POTASSIUM 4.1 01/29/2024 CHLORIDE 108 (H) 01/29/2024 CO2VEN 31 (H) 01/29/2024 GLUCOSE 197 (H) 01/29/2024 BUN 24 01/29/2024 CREATININE 0.87 01/29/2024 CALCIUM 9.4 01/29/2024 MAGNESIUM 2.2 01/28/2024 PHOSPHORUS 2.1 (L) 01/29/2024 ALBUMIN 3.0 (L) 01/29/2024 Lab Results Component Value Date SODIUM 144 01/29/2024 POTASSIUM 4.1 01/29/2024 CHLORIDE 108 (H) 01/29/2024 CO2VEN 31 (H) 01/29/2024 GLUCOSE 197 (H) 01/29/2024 ANIONGAP 9.1 01/29/2024 BUN 24 01/29/2024 CREATININE 0.87 01/29/2024 CALCIUM 9.4 01/29/2024 Lab Results Component Value Date SODIUM 144 01/29/2024 POTASSIUM 4.1 01/29/2024 CHLORIDE 108 (H) 01/29/2024 CO2VEN 31 (H) 01/29/2024 ANIONGAP 9.1 01/29/2024 GLUCOSE 197 (H) 01/29/2024 BUN 24 01/29/2024 CREATININE 0.87 01/29/2024 BCRATIO8 28 (H) 01/29/2024 TOTALPROTEIN 6.5 01/28/2024 ALBUMIN 3.0 (L) 01/29/2024 CALCIUM 9.4 01/29/2024 TBIL 0.5 01/28/2024 SGOTAST 13 01/28/2024 SGPTALT 10 01/28/2024 ALKALINEPHO 59 01/28/2024 GFRNA >60 01/29/2024 GFRA >60 01/29/2024 Lab Results Component Value Date INR 1.2 01/25/2024 PTP 15.1 (H) 01/25/2024 Lab Results Component Value Date PHARTERIAL 7.42 01/28/2024 PO2ART 107 (H) 01/28/2024 [id number] 48 (H) 01/28/2024 O2ART 98 01/28/2024 Radiology Results were Reviewed Labs/chart/meds reviewed. Assessment/Plan: 1. Neurologically: Patient seems to be able to follow commands and move all extremities. He is blurry hard of hearing the requires very loud speech in order for him to understand. Continue seizure medications 2. Cardiovascular: Doing overall about the same. Heart rate remained stable no evidence of volume excess 3. Respiratory: Failure associated with pneumonia some of this could be aspiration but he is growing Pseudomonas and strep pneumo in his sputum culture. Since sensitivities to Zosyn are still pendingand the organism soon is sensitive to cefepime , will switch him. 4. GI: Patient has been tolerating feedings. He is on prophylaxis 5. and renal: BUN creatinine electrolytes overall balance 6. Endocrine: Blood sugars are still elevated but better 7. Hematologically: CBC shows improving on leukocytosis. Anemia remains relatively stable 8. DVT prophylaxis: Lovenox 9. Id: Switched to cefepime to cover strep and Pseudomonas Spent total of 30 minutes of critical care time Voice recognition software was used to dictate this note. In spite of proofreading, typographical and/or content errors may have occurred. Spenser Demarco MD 01/29/2024 10:30 AM FORMS DESIGNER S DESIGNER * Gagan Montiel MD - 01/28/2024 9:29 PM CST [facility] INPATIENT DAILY PROGRESS NOTE Critical care time: 35 minutes Papito Joseph is a 78 y.o. male at Hospital LOS: 3 days Assessment: Active Hospital Problems Diagnosis Date Noted Seizures (HCC) SD (myocardial infarction) (HCC) CVA (cerebral vascular accident) (HCC) COPD (chronic obstructive pulmonary disease) (HCC) BPH (benign prostatic hyperplasia) A-fib (HCC) Aortic valve stenosis Mitral valve stenosis Chronic diastolic heart failure (HCC) CAD (coronary artery disease) TIA (transient ischemic attack) HLD (hyperlipidemia) Pulmonary HTN (HCC) DM type 2 (diabetes mellitus, type 2) (HCC) Cardiopulmonary arrest with successful resuscitation ([facility]) 01/25/2024 Resolved Hospital Problems No resolved problems to display. Vitals: 01/28/24 1830 01/28/24 1845 01/28/24 1900 01/28/241999 Temp: 100.4 ??F (38 ??C) 100.4 ??F (38 ??C) 100.4 ??F (38 ??C) 99.5 ??F (37.5 ??C) TempSrc: Heart Rate (Monitor): (!) 115 (!) 116 (!) 108 99 Pulse: (!) 114 (!) 116 109 99 Resp: 27 (!) 0 18 17 BP: 154/57 140/70 113/70 Height: Weight: SpO2: 95% 96% 95% 96% I/O last 3 completed shifts: In: 3368 [I.V.:306; NG/GT:2522; IV Piggyback:540] Out: 2936 [Urine:2936] Plan: Plan Cardiopulmonary Arrest Ddx: Cardiac vs Infection vs Seizure 3 mins CPR with ROS achieved Intubated by ERP Newspaper Delivery Counselor consulted Admitted to ICU 01/26/2024 --- echocardiogram and evaluation by housing and residence life director, Neurology and Cardiology Services. Patient remains on supportive care while intubated Sepsis possible lung vs urine source Temp 100.9, HR 109, Hypotensive SBP 70-80, Lactic Acid 10.4 1150 IVF bolus given Blood and urine Cult pending Empiric antibiotics started 01/26/2024 --- no growth to date on blood culture testing x2 nor urine culture. Antibiotic therapy continues 01/27/2024 --- no growth to date on blood culture testing x2. Urine culture positive for Serratia marcescens and Enterococcus faecalis on preliminary testing. 01/28/2024 --- respiratory culture positive for Pseudomonas aeruginosa and streptococcal pneumonia.Antibiotic therapy continues with Zosyn NSTEMI EKG ST Troponin 61-108-152 Heparin gtt ASA given Echo ordered Cardiology consulted 01/26/2024 ---echocardiogram obtained, cardiology evaluation Concerns for Aspiration vs Community Acquired Pneumonia CXR Diffuse interstitial prominence within both lungs, with patchy opacities in the bases. Small effusions. CT Chest/ A/P-There is patchy consolidation at both lung bases, worse on the left. There is a large amount of debris in the left mainstem bronchus extending into the other bronchi in the left lung MRSA Pcr negative Urine antigen and Procalcitonin ordered Empiric Zosyn and azithromycin 01/26/2024 ---antibiotic therapy continues. No growth to date on blood culture nor respiratory culture testing Breakthrough Seizure Postictal status Heat CT-No evidence of acute large vessel territorial infarction. 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 Keppra started Neuro consulted EEG ordered 01/26/2024 ---neurology evaluation with the addition of Vimpat to current management Possible Acute Cystitis UA + WBC Esterase, few bacteria , small amount epithelial cells, and WBC 11-20 Urine culture pending Pt already started on empiric Zosyn 01/26/2024 ---no growth to date. 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 Respiratory culture results identified on preliminary testing. Review of Systems: A 14 point comprehensive review of systems was negative, except as documented in HPI. Objective: Exam: General: Intubated and sedated. Skin: normal coloration and turgor, no rashes. HEENT: normocephalic, atraumatic. Pupils equal, round and reactive to light. Extraocular movements intact. Oronasopharynx pink and moist, no lesion or exudate. Neck: Supple. No JVD, lymphadenopathy thyromegaly or carotid bruits auscultated. CVS: RRR, S1/S2 normal, no murmurs, gallops or rubs. Chest: Poor inspiratory effort, no focal consolidation. Abdominal: soft, nontender, nondistended. Positive Bowel sounds, no organomegaly appreciated. Extremities: no edema, no clubbing or cyanosis. Neuro: Unable to assess, patient is sedated. Lab Results: Lab Results Component Value Date PHARTERIAL 7.42 01/28/2024 PO2ART 107 (H) 01/28/2024 [id number] 48 (H) 01/28/2024 O2ART 98 01/28/2024 Lab Results Component Value Date WBC 11.36 01/28/2024 HEMOGLOBIN 7.9 (L) 01/28/2024 PLATELETCNT 178 01/28/2024 MCV 93.0 01/28/2024 Lab Results Component Value Date SODIUM 145 01/28/2024 POTASSIUM 4.2 01/28/2024 CHLORIDE 114 (H) 01/28/2024 CO2VEN 27 01/28/2024 ANIONGAP 8.2 01/28/2024 GLUCOSE 217 (H) 01/28/2024 BUN 21 01/28/2024 CREATININE 0.87 01/28/2024 BCRATIO8 24 (H) 01/28/2024 TOTALPROTEIN 6.5 01/28/2024 ALBUMIN 3.0 (L) 01/28/2024 CALCIUM 9.3 01/28/2024 TBIL 0.5 01/28/2024 SGOTAST 13 01/28/2024 SGPTALT 10 01/28/2024 ALKALINEPHO 59 01/28/2024 GFRNA >60 01/28/2024 GFRA >60 01/28/2024 Lab Results Component Value Date CPK 407 (H) 01/26/2024 No results found for: FOLATE Lab Results Component Value Date LACTICA 1.9 01/26/2024 No results found for: [id number] No results found for: FERRITIN Lab Results Component Value Date GLUCOSEPOCT 206 (H) 01/28/2024 EKG: EKG 12 LEAD Result Date: 01/28/2024 Normal sinus rhythm Right bundle branch block Abnormal ECG no change since 25 January 2024 11:44a.m. Confirmed by Robinson Robison ([id number]) on 01/28/2024 3:01:13 PM EKG 12 LEAD Result Date: 01/28/2024 Sinus tachycardia Rightward axis Nonspecific intraventricular block Abnormal ECG No previous ECGs available Confirmed by Robinson Robison ([id number]) on 01/28/2024 2:58:37 PM Imaging: XR CHEST SINGLE VIEW PORTABLE Result Date: 01/28/2024 IMPRESSION: Worsening bibasilar infiltrates and effusions. Support devices as above. No pneumothorax. By: Gagan Montiel MD, 01/28/2024 9:29 PM FORMS DESIGNER S DESIGNER * Chitra Robison, AIRCRAFT LIFE SUPPORT FITTER, AUTOMAT WATCHER - 01/28/2024 12:35 PM CST Cardiology Progress Note: 01/28/24 Symptoms: Patient continues to be intubated and sedated. Vitals: 01/28/24 0900 01/28/24 0902 01/28/24 0930 01/28/24 1000 Temp: 98.6 ??F (37 ??C) 98.6 ??F (37 ??C) 98.6 ??F (37 ??C) 98.6 ??F (37 ??C) TempSrc: Heart Rate (Monitor): 88 88 88 87 Pulse: 90 88 88 88 Resp: BP: 111/54 111/54 113/53 117/60 Height: Weight: SpO2: 97% 97% 98% 98% I/O last 3 completed shifts: In: 3200.7 [I.V.:225.7; NG/GT:2095; IV Piggyback:880] Out: 2586 [Urine:2586] No intake/output data recorded. Exam: HEENT: No pallor or Icterus. Cardiac: PMI and JVP normal, S1 and S2 normal, no murmur, no gallop or rub Abdomen: Soft, nontender, BS active Lungs: bilateral scattered rhonchi Extremities: No clubbing, cyanosis. No edema. Pedal pulses 2+ Neuro: Intubated, sedated Medication: Current Facility-Administered Medications Medication Dose Route Frequency Provider Last Rate Last Admin acetaminophen (TYLENOL) tablet 650 mg 650 mg Oral Q4H PRN Luzma Bermudez APRN, AUTOMAT WATCHER 650 mg at 01/26/24 0205 Or acetaminophen (TYLENOL) suppository 650 mg 650 mg Rectal Q4H PRN Luzma Bermudez AIRCRAFT LIFE SUPPORT FITTER, AUTOMAT WATCHER aspirin chewable tablet 81 mg 81 mg Oral Daily Luzma Bermudez APRN, AUTOMAT WATCHER 81 mg at 01/28/24 1135 glucose (GLUTOSE) 40 % gel GEL 15 g 15 g Oral PRN Luzma Bermudez APRN, AUTOMAT WATCHER Or dextrose 50 % solution 12.5 g 12.5 g Intravenous PRN Luzma Bermudez APRN, AUTOMAT WATCHER Or Glucagon Emergency injection KIT 1 mg 1 mg Intramuscular PRN Luzma Bermudez APRN, AUTOMAT WATCHER Or Glucagon Emergency injection KIT 1 mg 1 mg Subcutaneous PRN Luzma Bermudez AIRCRAFT LIFE SUPPORT FITTER, AUTOMAT WATCHER [START ON 01/29/2024] enoxaparin (LOVENOX) injection 40 mg 40 mg Subcutaneous Daily Spenser Leonard MD EPINEPHrine (Anaphylaxis) injection 0.3 mg 0.3 mg Intramuscular Once PRN Robinson Robison MD EPINEPHRINE 1 MG/10ML IV SOSY famotidine (PF) (PEPCID) injection 20 mg 20 mg Intravenous Daily Spenser Leonard MD 20 mg at 01/28/24 0818 fentaNYL (PF) (SUBLIMAZE) injection 25 mcg 25 mcg Intravenous Q1H PRN Spenser Leonard MD 25 mcg at 01/28/24 0727 hydrALAZINE (APRESOLINE) injection 10 mg 10 mg Intravenous Q1H PRN Luzma Bermudez APRN, HUSSEIN insulin glargine (LANTUS) 100 UNIT/ML injection 10 Units 10 Units Subcutaneous QAM Spenser Leonard MD 10 Units at 01/28/24 1136 insulin lispro (HumaLOG) 100 UNIT/ML injection 2-12 Units 2-12 Units Subcutaneous 4 times per day Luzma Bermudez APRN, CNP 4 Units at 01/28/24 0514 ipratropium-albuterol (DUO-NEB) 0.5-2.5 (3) MG/3ML nebulizer solution 3 mL 3 mL Nebulization Q4H Spenser Hall MD 3 mL at 01/28/24 1127 labetalol (NORMODYNE;TRANDATE) injection 10 mg 10 mg Intravenous Q1H PRN Luzma Bermudez APRN, HUSSEIN lacosamide (VIMPAT) injection 100 mg 100 mg Intravenous Q12H Perez Gan MD 100 mg at 01/28/24 0818 levETIRAcetam (KEPPRA) injection 1,000 mg 1,000 mg Intravenous Q12H Spenser Leonard MD 1,000 mg at 01/28/24 0721 LORazepam (ATIVAN) injection 2 mg 2 mg Intravenous Q1H PRN Spenser Leonard MD magnesium hydroxide (MILK OF MAGNESIA) 400 MG/5ML suspension 30 mL 30 mL Oral Daily PRN Luzma Bermudez APRN, AUTOMAT WATCHER Magnesium Replacement - [facility] Adult Critical Care-Magnesium Replacement (Goal = above 2 mg/dL)- Placeholder 1 Each Miscellaneous BID Spenser Leonard MD methylPREDNISolone Na Suc (PF) (Solu-MEDROL) injection 40 mg 40 mg Intravenous Q12H Spenser Leonard MD 40 mg at 01/28/24 1138 metoclopramide (REGLAN) injection 5 mg 5 mg Intravenous Q6H PRN Gagan Montiel MD metOLazone (ZAROXOLYN) tablet 5 mg 5 mg Per NG tube Once Spenser Leonard MD midazolam (VERSED) injection 5 mg 5 mg Intravenous Q1H PRN Ta Reyes MD 5 mg at 01/28/24 0132 ondansetron (ZOFRAN) injection 4 mg 4 mg Intravenous Q6H PRN Gagan Montiel MD piperacillin-tazobactam (ZOSYN) 4.5 g in sodium chloride 0.9 % 100 mL IVPB 4.5 g Intravenous Q8H Ta Reyes MD 25 mL/hr at 01/28/24 1137 4.5 g at 01/28/24 1137 polyethylene glycol (GLYCOLAX, MIRALAX) packet 17 g 17 g Oral BID PRN Luzma Bermudez APRN, AUTOMAT WATCHER Potassium Replacement: [facility] Adult Critical Care-STANDARD Potassium Replacement (Goal = above 3.5 mmol/L) - Placeholder 1 Each Miscellaneous BID Spenser Leonard MD Prochlorperazine Edisylate (COMPAZINE) injection 10 mg 10 mg Intravenous Q6H PRN Luzma Bermudez APRN, HUSSEIN propofol (DIPRIVAN) injection 5-50 mcg/kg/min Intravenous Continuous Spenser Leonard MD 10.9 mL/hr at 01/28/24 0405 25 mcg/kg/min at 01/28/24 0405 senna (SENOKOT) tablet 8.6 mg 1 Tablet Oral BID PRN Luzma Bermudez APRN, AUTOMAT WATCHER Labs: Lab Results Component Value Date CPK 407 (H) 01/26/2024 No results for input(s): BNP , BNPPOCT in the last 72 hours. Recent Labs Units 01/28/24 0413 01/27/24 0420 01/26/24 0428 SODIUM mmol/L 145 144 143 POTASSIUM mmol/L 4.2 3.5 3.5 CHLORIDE mmol/L 114* 113* 112* CO2VEN mmol/L 27 21* 25 ANIONGAP mmol/L 8.2 13.5 9.5 GLUCOSE mg/dL 217* 153* 85 BUN mg/dL 21 21 18 CREATININE mg/dL 0.87 0.97 1.05 BCRATIO8 ratio 24* 22* 17 TOTALPROTEIN g/dL 6.5 -- 5.4* ALBUMIN g/dL 3.0* 2.8* 2.7* CALCIUM mg/dL 9.3 8.6* 8.4* TBIL mg/dL 0.5 -- 0.5 SGOTAST U/L 13 -- 22 SGPTALT U/L 10 -- 10 ALKALINEPHO U/L 59 -- 52 GFRNA >60 >60 >60 GFRA >60 >60 >60 Recent Labs Units 01/28/24 0908 01/28/24 0413 01/27/24 0949 01/27/24 0420 WBC 10(3)/mcL 11.36 13.11* -- 9.56 HEMOGLOBIN g/dL 7.9* 8.6* 8.6* 8.1* PLATELETCNT 10(3)/mcL 178 195 -- 205 MCV fL 93.0 92.5 -- 93.5 Lab Results Component Value Date MAGNESIUM 2.2 01/28/2024 No results found for: DDIMER Recent Labs Units 01/26/24 0428 CHOLESTEROL mg/dL 84 TRIGLYCRIDES mg/dL 60 66 HDLCHOLESTE mg/dL 34* LDL mg/dL 37 No results for input(s): INR , PTP in the last 72 hours. Test: Results for orders placed or performed during the hospital encounter of 01/25/24 ADULT TRANS THORACIC ECHO 2D COMPLT W CONT Collection Time: 01/26/24 7:53 AM Result Value AV Peak Grad mmHg 41.22 Mean Aortic Valve Gradient (MAVG) 25 LV end cristina diam cm 3.2 LV end sys diam cm 2.5 Aortic Root Diam cm 2.9 LA vol index ml/m2 32 LVOT Peak Abrahan m/sec 0.85 AV Peak Abrahan m/sec 3.21 MV Mean Grad mmHg 5 MVA by PHT cm2 1.83 E/A Ratio 1.64 TR Abrahan m/sec 3.18 E/E' 31.1 AV Area (VTI) cm2 0.74 SEPTUM DIASTOLIC CM 1 PW DIASTOLIC CM 1.3 LA VOLUME 59.9 Narrative Transthoracic Echocardiography Report (TTE) Patient name OPLA Hall 1945 Patient ID (I) [id number] Indications: Cardiac arrest, COPD, Atrial fibrillation, Aortic [...] lbs. 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 A complete set of results can be found in Results Review. @LASTSTRESSRESULT@ @[facility]@ Impressions/Assessment/ Plan: -S/p suspected cardiopulmonary arrest with about 3 minutes of CPR. ROSC achieved. -Troponin trend 12->61->108->152->142. Troponin likely elevated in the setting of cardiac arrest versus oxygen demand. -EKG with sinus tachycardia and RBBB -echocardiogram normal LVEF 60-65%, no regional wall motion abnormalities. Grade 3 diastolic dysfunction. [id number] mitral stenosis, mild mitral regurgitation, [id number]-[id number] aortic stenosis. -patient with worsening chest x-ray, increased secretions. -cardiology will continue to hold off on any further cardiac procedures at this point. Once/if patient recovers from event and is stable once extubated and if neurologically intact then we would proceed with left heart catheterization and further evaluation of his moderate to severe aortic stenosis. Cardiology will continue to follow up p.r.n. By: Chitra Robison APRN, HUSSEIN; 01/28/2024, 12:35 PM FORMS DESIGNER S DESIGNER * Spenser Leonard MD - 01/28/2024 10:29 AM CST INPATIENT PROGRESS NOTE - Newspaper Delivery Counselor Papito Joseph is a 78 y.o. male at Hospital Day (LOS: 2 days) This patient has been followed by Critical Care because of: Respiratory failure, possible anoxic brain injury, severe chronic lung disease, valvular heart disease Subjective: Patient has more secretions today requiring lavaged. He is growing Streptococcus pneumoniae and Pseudomonas in the sputum. Chest x-ray today shows worsening infiltrate and increased interstitial prominence Objective: Temp Av.2 ??F (37.3 ??C) Min: 98.4 ??F (36.9 ??C) Max: 100.4 ??F (38 ??C) BP Min: 99/51 Max: 149/70 Pulse Av.3 Min: 83 Max: 131 Heart Rate (Monitor) Av.3 Min: 84 Max: 123 Resp Av.8 Min: 0 Max: 31 SpO2 Av.4 % Min: 89 % Max: 98 % I/O last 3 completed shifts: In: 3200.7 [I.V.:225.7; NG/GT:2095; IV Piggyback:880] Out: 2586 [Urine:2586] Stool Occurrence: 0 (01/27/24 0500) Weights: Wt Readings from Last 3 Encounters: 01/25/24 159 lb 11.2 oz (72.4 kg) PHYSICAL EXAM: Sedated, intubated blood pressure was 117/60 heart rate was 87 respiratory rate 24 oxygen saturation was 98% temperature is 98.6?? HEENT no discharge. Nose pupils started about 2-3 mm Endotracheal tube is in place O2 is in place Neck doing eustachian Lungs rhonchi present bilaterally Cardiovascular was regular not tachycardic Abdomen was soft bowel sounds were present Extremities shows no significant erythema or edema Neurologically the patient is sedated Skin was no rash Musculoskeletal no evidence of joint inflammation Active Scheduled and PRN meds aspirin, 81 mg, Daily Or aspirin, 300 mg, Daily enoxaparin, 1 mg/kg, Q12H PATTIE EPINEPHrine, , famotidine (PEPCID) IV, 20 mg, Daily insulin lispro (HumaLOG) injection, 2-12 Units, 4 times per day ipratropium-albuterol, 3 mL, Q6H lacosamide, 100 mg, Q12H PATTIE levETIRAcetam, 1,000 mg, Q12H magnesium replacement, 1 Each, BID methylPREDNIsolone, 40 mg, Q12H piperacillin-tazobactam, 4.5 g, Q8H potassium replacement, 1 Each, BID acetaminophen, 650 mg, Q4H PRN Or acetaminophen, 650 mg, Q4H PRN glucose, 15 g, PRN Or dextrose, 12.5 g, PRN Or glucagon injection 1 mg, 1 mg, PRN Or glucagon injection 1 mg, 1 mg, PRN EPINEPHrine ANAPHYLAXIS ORDERABLE, 0.3 mg, Once PRN EPINEPHrine, , fentaNYL (PF), 25 mcg, Q1H PRN hydrALAZINE, 10 mg, Q1H PRN labetalol (NORMODYNE;TRANDATE) injection 10 mg, 10 mg, Q1H PRN lorazepam, 2 mg, Q1H PRN magnesium hydroxide, 30 mL, Daily PRN metoclopramide, 5 mg, Q6H PRN midazolam, 5 mg, Q1H PRN ondansetron, 4 mg, Q6H PRN polyethylene glycol, 17 g, BID PRN Prochlorperazine Edisylate, 10 mg, Q6H PRN senna, 1 Tablet, BID PRN Lab Review Lab Results Component Value Date WBC 11.36 01/28/2024 HEMOGLOBIN 7.9 (L) 01/28/2024 PLATELETCNT 178 01/28/2024 MCV 93.0 01/28/2024 Lab Results Component Value Date SODIUM 145 01/28/2024 POTASSIUM 4.2 01/28/2024 CHLORIDE 114 (H) 01/28/2024 CO2VEN 27 01/28/2024 GLUCOSE 217 (H) 01/28/2024 BUN 21 01/28/2024 CREATININE 0.87 01/28/2024 CALCIUM 9.3 01/28/2024 MAGNESIUM 2.2 01/28/2024 PHOSPHORUS 2.1 (L) 01/28/2024 ALBUMIN 3.0 (L) 01/28/2024 Lab Results Component Value Date SODIUM 145 01/28/2024 POTASSIUM 4.2 01/28/2024 CHLORIDE 114 (H) 01/28/2024 CO2VEN 27 01/28/2024 GLUCOSE 217 (H) 01/28/2024 ANIONGAP 8.2 01/28/2024 BUN 21 01/28/2024 CREATININE 0.87 01/28/2024 CALCIUM 9.3 01/28/2024 Lab Results Component Value Date SODIUM 145 01/28/2024 POTASSIUM 4.2 01/28/2024 CHLORIDE 114 (H) 01/28/2024 CO2VEN 27 01/28/2024 ANIONGAP 8.2 01/28/2024 GLUCOSE 217 (H) 01/28/2024 BUN 21 01/28/2024 CREATININE 0.87 01/28/2024 BCRATIO8 24 (H) 01/28/2024 TOTALPROTEIN 6.5 01/28/2024 ALBUMIN 3.0 (L) 01/28/2024 CALCIUM 9.3 01/28/2024 TBIL 0.5 01/28/2024 SGOTAST 13 01/28/2024 SGPTALT 10 01/28/2024 ALKALINEPHO 59 01/28/2024 GFRNA >60 01/28/2024 GFRA >60 01/28/2024 Lab Results Component Value Date INR 1.2 01/25/2024 PTP 15.1 (H) 01/25/2024 Lab Results Component Value Date PHARTERIAL 7.34 (L) 01/25/2024 PO2ART 62 (L) 01/25/2024 [id number] 48 (H) 01/25/2024 O2ART 86 (L) 01/25/2024 Radiology Results were Reviewed Labs/chart/meds reviewed. Assessment/Plan: 1. Neurologically: He is on propofol. Gets tachypneic off sedation due to pneumonia. We will not dosedation interruption today both retry tomorrow 2. Cardiovascular: Valvular heart disease my require further workup if mental status improves and he recovers 3. Respiratory: Failure associated with aspiration and now growing Streptococcus and Pseudomonas pneumonia. Is certainly possible that he might have developed pneumonia 1st and then respiratory stress culminating in cardiopulmonary arrest. In any case, we will continue with mechanical ventilation. We will give him 1 dose of diuretics and continue antibiotics. The patient is not ready to be weaned. X-ray today in fact was worse but pneumothorax which probably occurred during cardiac arrest has resolved 4. GI: Tolerating tube feedings continue GI prophylaxis 5. and renal: BUN and creatinine overall stable, sodium level is 145. We will consider to increase free water. 6. Endocrine: Blood sugars are overall moderately elevated, patient is on steroids. Will add low dose of Lantus 7. Hematologically: CBC shows decrease in the hemoglobin further but no overt bleeding. Do not see that the patient needs full anticoagulation anymore therefore will decrease Lovenox to DVT prophylaxis doses. Will follow 8. DVT prophylaxis: Lovenox 40 mg q.h.s. 9. Id: Continuous Zosyn for strep pneumo and Pseudomonas pneumonia Spent a total of 35 minutes glucose done Voice recognition software was used to dictate this note. In spite of proofreading, typographical and/or content errors may have occurred. Spenser Demarco MD 01/28/2024 10:29 AM FORMS DESIGNER S DESIGNER * Gagan Montiel MD - 01/27/2024 6:53 PM CST [facility] INPATIENT DAILY PROGRESS NOTE Critical care time: 39 minutes Papito Joseph is a 78 y.o. male at Hospital LOS: 2 days Assessment: Active Hospital Problems Diagnosis Date Noted Seizures (HCC) SD (myocardial infarction) (HCC) CVA (cerebral vascular accident) (HCC) COPD (chronic obstructive pulmonary disease) (HCC) BPH (benign prostatic hyperplasia) A-fib (HCC) Aortic valve stenosis Mitral valve stenosis Chronic diastolic heart failure (HCC) CAD (coronary artery disease) TIA (transient ischemic attack) HLD (hyperlipidemia) Pulmonary HTN (HCC) DM type 2 (diabetes mellitus, type 2) ([facility]) Cardiopulmonary arrest with successful resuscitation ([facility]) 01/25/2024 Resolved Hospital Problems No resolved problems to display. Vitals: 01/27/24 1600 01/27/24 1630 01/27/24 1700 01/27/24 1730 Temp: 99.9 ??F (37.7 ??C) 99.9 ??F (37.7 ??C) 99.7 ??F (37.6 ??C) 99.5 ??F (37.5 ??C) TempSrc: Heart Rate (Monitor): (!) 116 (!) 106 (!) 114 (!) 110 Pulse: (!) 114 108 (!) 114 109 Resp: 25 13 (!) 0 9 BP: 145/58 135/72 124/69 140/73 Height: Weight: SpO2: 96% 96% 96% 97% I/O last 3 completed shifts: In: 2611.1 [I.V.:1041.1; NG/GT:660; IV Piggyback:910] Out: 1490 [Urine:1490] Plan: Plan Cardiopulmonary Arrest Ddx: Cardiac vs Infection vs Seizure 3 mins CPR with ROS achieved Intubated by ERP Newspaper Delivery Counselor consulted Admitted to ICU 01/26/2024 --- echocardiogram and evaluation by housing and residence life director, Neurology and Cardiology Services. Patient remains on supportive care while intubated Sepsis possible lung vs urine source Temp 100.9, HR 109, Hypotensive SBP 70-80, Lactic Acid 10.4 1150 IVF bolus given Blood and urine Cult pending Empiric antibiotics started 01/26/2024 --- no growth to date on blood culture testing x2 nor urine culture. Antibiotic therapy continues 01/27/2024 --- no growth to date on blood culture testing x2. Urine culture positive for Serratia marcescens and Enterococcus faecalis on preliminary testing. NSTEMI EKG ST Troponin 61-108-152 Heparin gtt ASA given Echo ordered Cardiology consulted 01/26/2024 ---echocardiogram obtained, cardiology evaluation Concerns for Aspiration vs Community Acquired Pneumonia CXR Diffuse interstitial prominence within both lungs, with patchy opacities in the bases. Small effusions. CT Chest/ A/P-There is patchy consolidation at both lung bases, worse on the left. There is a large amount of debris in the left mainstem bronchus extending into the other bronchi in the left lung MRSA Pcr negative Urine antigen and Procalcitonin ordered Empiric Zosyn and azithromycin 01/26/2024 ---antibiotic therapy continues. No growth to date on blood culture nor respiratory culture testing Breakthrough Seizure Postictal status Heat CT-No evidence of acute large vessel territorial infarction. 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 Keppra started Neuro consulted EEG ordered 01/26/2024 ---neurology evaluation with the addition of Vimpat to current management Possible Acute Cystitis UA + WBC Esterase, few bacteria , small amount epithelial cells, and WBC 11-20 Urine culture pending Pt already started on empiric Zosyn 01/26/2024 ---no growth to date. 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 Ventilator management continues, breathing trial pending per housing and residence life director. Blood culture testing no growth to date, preliminary urine culture results noted. Review of Systems: A 14 point comprehensive review of systems was negative, except as documented in HPI. Objective: Exam: General: Intubated and sedated. Skin: normal coloration and turgor, no rashes. HEENT: normocephalic, atraumatic. Pupils equal, round and reactive to light. Extraocular movements intact. Oronasopharynx pink and moist, no lesion or exudate. Neck: Supple. No JVD, lymphadenopathy thyromegaly or carotid bruits auscultated. CVS: RRR, S1/S2 normal, no murmurs, gallops or rubs. Chest: Poor inspiratory effort, no focal consolidation. Abdominal: soft, nontender, nondistended. Positive Bowel sounds, no organomegaly appreciated. Extremities: no edema, no clubbing or cyanosis. Neuro: Unable to assess, patient is sedated. Lab Results: Lab Results Component Value Date PHARTERIAL 7.34 (L) 01/25/2024 PO2ART 62 (L) 01/25/2024 RKG2GSV 48 (H) 01/25/2024 O2ART 86 (L) 01/25/2024 Lab Results Component Value Date WBC 9.56 01/27/2024 HEMOGLOBIN 8.6 (L) 01/27/2024 PLATELETCNT 205 01/27/2024 MCV 93.5 01/27/2024 Lab Results Component Value Date SODIUM 144 01/27/2024 POTASSIUM 3.5 01/27/2024 CHLORIDE 113 (H) 01/27/2024 CO2VEN 21 (L) 01/27/2024 ANIONGAP 13.5 01/27/2024 GLUCOSE 153 (H) 01/27/2024 BUN 21 01/27/2024 CREATININE 0.97 01/27/2024 BCRATIO8 22 (H) 01/27/2024 TOTALPROTEIN 5.4 (L) 01/26/2024 ALBUMIN 2.8 (L) 01/27/2024 CALCIUM 8.6 (L) 01/27/2024 TBIL 0.5 01/26/2024 SGOTAST 22 01/26/2024 SGPTALT 10 01/26/2024 ALKALINEPHO 52 01/26/2024 GFRNA >60 01/27/2024 GFRA >60 01/27/2024 Lab Results Component Value Date CPK 407 (H) 01/26/2024 No results found for: FOLATE Lab Results Component Value Date LACTICA 1.9 01/26/2024 No results found for: [id number] No results found for: FERRITIN Lab Results Component Value Date GLUCOSEPOCT 173 (H) 01/27/2024 EKG: No results found. Imaging: XR CHEST SINGLE VIEW PORTABLE Result Date: 01/27/2024 IMPRESSION: Small right pneumothorax similar to previous exam. Atelectasis and infiltrates left lower lung. ETT about 2 cm above the rolando. NG tube is not well seen. By: Gagan Montiel MD, 01/27/2024 6:53 PM FORMS DESIGNER S DESIGNER * Perez Nelson MD - 01/27/2024 4:04 PM CST Date of Service: 01/27/2024 Neurology progress note: S: Papito continues to be very encephalopathic. He had a EEG which did not show epileptic activity but did show moderate to severe slowing consistent with a severe encephalopathy. O: Examination: Vitals: 01/27/24 0630 01/27/24 0700 01/27/24 0730 01/27/24 0800 BP: 112/59 114/61 108/56 105/58 Pulse: 100 97 103 103 Resp: Temp: 99.5 ??F (37.5 ??C) 99.5 ??F (37.5 ??C) 99.5 ??F (37.5 ??C) 99.3 ??F (37.4 ??C) TempSrc: SpO2: 98% 100% 96% 98% Weight: Height: General Exam: Appears awake alert not in distress. Heart is regular in rate and rhythm. Lungs are clear to auscultation bilaterally. There are no carotid bruits. There is no peripheral edema. Neuro Exam: Intubated but not sedated On cranial nerve exam, CN II: visual simmons are full to confrontation. Fundi are clear without hemorrhage or exudate, discs are sharp.CN III: Pupils are equal, round and reactive bilaterally; CN III,IV, extraocular movements are full with normal saccades and normal pursuits. There are no squarewave jerks. CN VIII: Hearing is intact bilaterally. CN V: Facial sensation is intact -VIII; CN VII: face is symmetric. CN IX: Palate elevates symmetrically. CN XII: Tongue is midline. CN XI: Shrug is 5/5. A motor examination was performed and patient withdraws symmetrically to pain Assessment and Plan: Seizures - continue Keppra and Vimpat - reviewed EEG which did not show epileptic activity but did show evidence of severe encephalopathy 2. Respiratory failure - patient is intubated and on the vent 3. Sepsis - urine cultures positive for UTI with Enterococcus faecalis - blood cultures negative - respiratory cultures pending - on empiric antibiotics S DESIGNER * Spenser Leonard MD - 01/27/2024 10:22 AM CST INPATIENT PROGRESS NOTE - Newspaper Delivery Counselor Papito Joseph is a 78 y.o. male at Hospital Day (LOS: 1 day) This patient has been followed by Critical Care because of: Cardiopulmonary arrest, respiratory failure Subjective: Patient has been off sedation but does not follow commands consistently Objective: Temp Av.8 ??F (37.7 ??C) Min: 99.1 ??F (37.3 ??C) Max: 100.6 ??F (38.1 ??C) BP Min: 83/57 Max: 157/97 Pulse Av.7 Min: 87 Max: 116 Heart Rate (Monitor) Av.3 Min: 87 Max: 123 Resp Av Min: 0 Max: 32 SpO2 Av.9 % Min: 91 % Max: 100 % I/O last 3 completed shifts: In: 2611.1 [I.V.:1041.1; NG/GT:660; IV Piggyback:910] Out: 1490 [Urine:1490] Stool Occurrence: 0 (01/27/24 0500) Weights: Wt Readings from Last 3 Encounters: 01/25/24 159 lb 11.2 oz (72.4 kg) PHYSICAL EXAM: He is sedated but he would open his eyes and move spontaneously but did not follow commands for me. HEENT pupils were about 3 mm and minimally reactive Endotracheal tube is in place OG tube is in place Neck no jugular distention Lungs no wheezing moderate rhonchi bilaterally Cardiovascular was regular non tachycardic Abdomen was soft not distended Extremities shows no significant erythema Neurologically he is does move his lower extremities spontaneously but he does not follow commands for me Active Scheduled and PRN meds aspirin, 81 mg, Daily Or aspirin, 300 mg, Daily azithromycin, 500 mg, Q24H enoxaparin, 1 mg/kg, Q12H PATTIE EPINEPHrine, , famotidine (PEPCID) IV, 20 mg, Daily insulin lispro (HumaLOG) injection, 2-12 Units, 4 times per day ipratropium-albuterol, 3 mL, Q6H lacosamide, 100 mg, Q12H PATTIE levETIRAcetam, 1,000 mg, Q12H magnesium replacement, 1 Each, BID piperacillin-tazobactam, 4.5 g, Q8H potassium chloride, 20 mEq, Q2H potassium replacement, 1 Each, BID acetaminophen, 650 mg, Q4H PRN Or acetaminophen, 650 mg, Q4H PRN glucose, 15 g, PRN Or dextrose, 12.5 g, PRN Or glucagon injection 1 mg, 1 mg, PRN Or glucagon injection 1 mg, 1 mg, PRN EPINEPHrine ANAPHYLAXIS ORDERABLE, 0.3 mg, Once PRN EPINEPHrine, , fentaNYL (PF), 25 mcg, Q1H PRN hydrALAZINE, 10 mg, Q1H PRN labetalol (NORMODYNE;TRANDATE) injection 10 mg, 10 mg, Q1H PRN lorazepam, 2 mg, Q1H PRN magnesium hydroxide, 30 mL, Daily PRN metoclopramide, 5 mg, Q6H PRN midazolam, 5 mg, Q1H PRN ondansetron, 4 mg, Q6H PRN polyethylene glycol, 17 g, BID PRN Prochlorperazine Edisylate, 10 mg, Q6H PRN senna, 1 Tablet, BID PRN Lab Review Lab Results Component Value Date WBC 9.56 01/27/2024 HEMOGLOBIN 8.6 (L) 01/27/2024 PLATELETCNT 205 01/27/2024 MCV 93.5 01/27/2024 Lab Results Component Value Date SODIUM 144 01/27/2024 POTASSIUM 3.5 01/27/2024 CHLORIDE 113 (H) 01/27/2024 CO2VEN 21 (L) 01/27/2024 GLUCOSE 153 (H) 01/27/2024 BUN 21 01/27/2024 CREATININE 0.97 01/27/2024 CALCIUM 8.6 (L) 01/27/2024 MAGNESIUM 2.2 01/27/2024 PHOSPHORUS 2.4 (L) 01/27/2024 ALBUMIN 2.8 (L) 01/27/2024 Lab Results Component Value Date SODIUM 144 01/27/2024 POTASSIUM 3.5 01/27/2024 CHLORIDE 113 (H) 01/27/2024 CO2VEN 21 (L) 01/27/2024 GLUCOSE 153 (H) 01/27/2024 ANIONGAP 13.5 01/27/2024 BUN 21 01/27/2024 CREATININE 0.97 01/27/2024 CALCIUM 8.6 (L) 01/27/2024 Lab Results Component Value Date SODIUM 144 01/27/2024 POTASSIUM 3.5 01/27/2024 CHLORIDE 113 (H) 01/27/2024 CO2VEN 21 (L) 01/27/2024 ANIONGAP 13.5 01/27/2024 GLUCOSE 153 (H) 01/27/2024 BUN 21 01/27/2024 CREATININE 0.97 01/27/2024 BCRATIO8 22 (H) 01/27/2024 TOTALPROTEIN 5.4 (L) 01/26/2024 ALBUMIN 2.8 (L) 01/27/2024 CALCIUM 8.6 (L) 01/27/2024 TBIL 0.5 01/26/2024 SGOTAST 22 01/26/2024 SGPTALT 10 01/26/2024 ALKALINEPHO 52 01/26/2024 GFRNA >60 01/27/2024 GFRA >60 01/27/2024 Lab Results Component Value Date INR 1.2 01/25/2024 PTP 15.1 (H) 01/25/2024 Lab Results Component Value Date PHARTERIAL 7.34 (L) 01/25/2024 PO2ART 62 (L) 01/25/2024 UGD5IBL 48 (H) 01/25/2024 O2ART 86 (L) 01/25/2024 Radiology Results were Reviewed Labs/chart/meds reviewed. Assessment/Plan: 1. Neurologically: Patient has some degree of encephalopathy. This is expected in the setting of for long cardiopulmonary resuscitation. EEG is pending. He does have a history of seizures but we havenot noticed any 2. Cardiovascular: Troponins were moderately elevated post cardiopulmonary arrest which is expected. Echocardiogram done yesterday shows normal left ventricular size with no significant wall motion abnormalities and preserved systolic function. He did have moderate mitral stenosis due to calcification as well as moderate to severe aortic stenosis . His mental status improved, will consider Cardiology consultation for possible ALEIDA to better evaluate the aortic and mitral valves. 3. Respiratory: Failure associated with cardiopulmonary arrest and altered mental status. Patient is a big time smoker. Chest x-ray shows small pneumothorax which could have been related to cardiopulmonary resuscitation CPR. He does have bibasilar infiltrates which are more prominent on the left side consistent with pneumonia. This could have been prior or after arrest. Continue antibiotics, updrafts, steroids will be added today. Unable to wean until his mental status improved 4. GI: He is tolerating tube feedings. Continue GI prophylaxis with Pepcid 5. and renal: BUN and creatinine are overall stable his sodium level is 144. Will increase free water per tube. Urine output is adequate. 6. Endocrine: Blood sugars are marginally elevated, TSH was normal 7. Hematologically: CBC shows normal white blood cell count with decreased hemoglobin. There is no evidence of overt bleeding and this in part could be related to hydration. Will continue to monitor 8. DVT prophylaxis: He is fully anticoagulated which I will continue for at least another 24 hours 9. Id: Continue Zosyn. Urine cultures were consistent with Serratia and Enterococcus both of which should be sensitive to Zosyn. Sensitivities are pending. Patient is not in shock Spent total of 45 minutes critical care time Voice recognition software was used to dictate this note. In spite of proofreading, typographical and/or content errors may have occurred. Spenser Demarco MD 01/27/2024 10:22 AM FORMS DESIGNER S DESIGNER * Madie Ramirez APRN, AUTOMAT WATCHER - 01/27/2024 10:05 AM CST Cardiology Progress Note: 01/27/24 Symptoms: Remains intubated and sedated. No signs of distress. Vitals: 01/27/24 0700 01/27/24 0718 01/27/24 0730 01/27/24 0800 Temp: 99.5 ??F (37.5 ??C) 99.5 ??F (37.5 ??C) 99.3 ??F (37.4 ??C) TempSrc: Heart Rate (Monitor): 98 (!) 102 (!) 104 (!) 104 Pulse: 97 103 103 Resp: BP: 114/61 108/56 105/58 Height: Weight: SpO2: 100% 96% 98% I/O last 3 completed shifts: In: 2611.1 [I.V.:1041.1; NG/GT:660; IV Piggyback:910] Out: 1490 [Urine:1490] No intake/output data recorded. Exam: HEENT: No pallor or Icterus. Cardiac: Tachycardic rate, murmur appreciated Abdomen: Soft, nontender, BS active Lungs: Coarse to auscultation. Respirations unlabored Extremities: No clubbing, cyanosis. No edema. Pedal pulses 2+ Neuro: Intubated and sedated Medication: Current Facility-Administered Medications Medication Dose Route Frequency Provider Last Rate Last Admin acetaminophen (TYLENOL) tablet 650 mg 650 mg Oral Q4H PRN Luzma Bermudez APRN AUTOMAT WATCHER 650 mg at 01/26/24 0205 Or acetaminophen (TYLENOL) suppository 650 mg 650 mg Rectal Q4H PRN Luzma Bermudez APRN, CNP aspirin chewable tablet 81 mg 81 mg Oral Daily Luzma Bermudez APRN, CNP 81 mg at 01/27/24 0919 Or aspirin suppository 300 mg 300 mg Rectal Daily Luzma Bermudez APRN, CNP azithromycin (ZITHROMAX) 500 mg in sodium chloride 0.9 % 250 mL IVPB 500 mg Intravenous Q24H Spenser Leonard MD Stopped at 01/26/242052 glucose (GLUTOSE) 40 % gel GEL 15 g 15 g Oral PRN Luzma Bermudez APRN, CNP Or dextrose 50 % solution 12.5 g 12.5 g Intravenous PRN Bermudez, Luzma, AIRCRAFT LIFE SUPPORT FITTER, AUTOMAT WATCHER Or Glucagon Emergency injection KIT 1 mg 1 mg Intramuscular PRN Luzma Bermudez APRN, CNP Or Glucagon Emergency injection KIT 1 mg 1 mg Subcutaneous PRN Luzma Bermudez APRN, CNP enoxaparin (LOVENOX) injection 70 mg 1 mg/kg Subcutaneous Q12H [facility] Luzma Bermudez APRN, CNP 70 mg at 01/27/24 0918 EPINEPHrine (Anaphylaxis) injection 0.3 mg 0.3 mg Intramuscular Once PRN Robinson Robison MD EPINEPHRINE 1 MG/10ML IV SOSY famotidine (PF) (PEPCID) injection 20 mg 20 mg Intravenous Daily Spenser Leonard MD 20 mg at 01/27/24 0919 fentaNYL (PF) (SUBLIMAZE) injection 25 mcg 25 mcg Intravenous Q1H PRN Spenser Leonard MD 25 mcg at 01/26/24 1644 hydrALAZINE (APRESOLINE) injection 10 mg 10 mg Intravenous Q1H PRN Luzma Bermudez APRN, CNP insulin lispro (HumaLOG) 100 UNIT/ML injection 2-12 Units 2-12 Units Subcutaneous 4 times per day Luzma Bermudez APRN, CNP ipratropium-albuterol (DUO-NEB) 0.5-2.5 (3) MG/3ML nebulizer solution 3 mL 3 mL Nebulization Q6H Spenser Hall MD 3 mL at 01/27/24 0718 labetalol (NORMODYNE;TRANDATE) injection 10 mg 10 mg Intravenous Q1H PRN Luzma Bermudez APRN, CNP lacosamide (VIMPAT) injection 100 mg 100 mg Intravenous Q12H [facility] Perez Nelson MD 100 mg at 01/27/24 0919 levETIRAcetam (KEPPRA) injection 1,000 mg 1,000 mg Intravenous Q12H Spenser Leonard MD 1,000 mg at 01/27/24 0737 LORazepam (ATIVAN) injection 2 mg 2 mg Intravenous Q1H PRN Spenser Leonard MD magnesium hydroxide (MILK OF MAGNESIA) 400 MG/5ML suspension 30 mL 30 mL Oral Daily PRN Luzma Bermudez APRN, CNP Magnesium Replacement - [facility] Adult Critical Care-Magnesium Replacement (Goal = above 2 mg/dL)- Placeholder 1 Each Miscellaneous BID Spenser Leonard MD metoclopramide (REGLAN) injection 5 mg 5 mg Intravenous Q6H PRN Gagan Montiel MD midazolam (VERSED) injection 5 mg 5 mg Intravenous Q1H PRN Ta Reyes MD 5 mg at 01/27/24 0521 ondansetron (ZOFRAN) injection 4 mg 4 mg Intravenous Q6H PRN Gagan Montiel MD piperacillin-tazobactam (ZOSYN) 4.5 g in sodium chloride 0.9 % 100 mL IVPB 4.5 g Intravenous Q8H Ta Reyes MD Stopped at 01/27/24 0741 polyethylene glycol (GLYCOLAX, MIRALAX) packet 17 g 17 g Oral BID PRN Luzma Bermudez APRN, CNP potassium chloride (KLOR-CON) packet 20 mEq 20 mEq Per NG tube Q2H Spenser Leonard MD 20 mEq at 01/27/24 0918 Potassium Replacement: [facility] Adult Critical Care-STANDARD Potassium Replacement (Goal = above 3.5 mmol/L) - Placeholder 1 Each Miscellaneous BID Spenser Leonard MD Prochlorperazine Edisylate (COMPAZINE) injection 10 mg 10 mg Intravenous Q6H PRN Luzma Bermudez APRN, CNP propofol (DIPRIVAN) injection 5-50 mcg/kg/min Intravenous Continuous Spenser Leonard MD Stopped at 01/27/24 0730 senna (SENOKOT) tablet 8.6 mg 1 Tablet Oral BID PRN Luzma Bermudez APRN, CNP Labs: Lab Results Component Value Date CPK 407 (H) 01/26/2024 No results for input(s): BNP , BNPPOCT in the last 72 hours. Recent Labs Units 01/27/24 0420 01/26/24 0428 01/25/24 1201 SODIUM mmol/L 144 143 142 POTASSIUM mmol/L 3.5 3.5 4.7 CHLORIDE mmol/L 113* 112* 105 CO2VEN mmol/L 21* 25 18* ANIONGAP mmol/L 13.5 9.5 23.7* GLUCOSE mg/dL 153* 85 130* BUN mg/dL 21 18 19 CREATININE mg/dL 0.97 1.05 1.27 BCRATIO8 ratio 22* 17 15 TOTALPROTEIN g/dL -- 5.4* 7.7 ALBUMIN g/dL 2.8* 2.7* 3.9 CALCIUM mg/dL 8.6* 8.4* 10.0 TBIL mg/dL -- 0.5 0.5 SGOTAST U/L -- 22 18 SGPTALT U/L -- 10 16 ALKALINEPHO U/L -- 52 89 GFRNA >60 >60 55* GFRA >60 >60 >60 Recent Labs Units 01/27/24 0420 01/26/24 0428 01/25/24 1201 WBC 10(3)/mcL 9.56 7.58 11.53 HEMOGLOBIN g/dL 8.1* 10.2* 12.4* PLATELETCNT 10(3)/mcL 205 211 315 MCV fL 93.5 93.1 96.7* Lab Results Component Value Date MAGNESIUM 2.2 01/27/2024 No results found for: DDIMER Recent Labs Units 01/26/24 0428 CHOLESTEROL mg/dL 84 TRIGLYCRIDES mg/dL 60 66 HDLCHOLESTE mg/dL 34* LDL mg/dL 37 Recent Labs Units 01/25/24 1201 INR 1.2 PTP sec 15.1* Test: Results for orders placed or performed during the hospital encounter of 01/25/24 ADULT TRANS THORACIC ECHO 2D COMPLT W CONT Collection Time: 01/26/24 7:53 AM Result Value AV Peak Grad mmHg 41.22 Mean Aortic Valve Gradient (MAVG) 25 LV end cristina diam cm 3.2 LV end sys diam cm 2.5 Aortic Root Diam cm 2.9 LA vol index ml/m2 32 LVOT Peak Abrahan m/sec 0.85 AV Peak Abrahan m/sec 3.21 MV Mean Grad mmHg 5 MVA by PHT cm2 1.83 E/A Ratio 1.64 TR Abrahan m/sec 3.18 E/E' 31.1 AV Area (VTI) cm2 0.74 SEPTUM DIASTOLIC CM 1 PW DIASTOLIC CM 1.3 LA VOLUME 59.9 Narrative Transthoracic Echocardiography Report (TTE) Patient name OPAL Bryson 1945 Patient ID (UPI) [id number] Indications: Cardiac arrest, COPD, Atrial fibrillation, Aortic [...] lbs. 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 A complete set of results can be found in Results Review. @LASTSTRESSRESULT@ @[facility]@ Impressions/Assessment/ Plan: Cardiopulmonary Arrest, suspected Sepsis Community Acquired Pneumonia NSTEMI Seizure -S/p suspected cardiopulmonary arrest with about 3 minutes of CPR. ROSC achieved. -Troponin trend 12->61->108->152->142. Troponin likely elevated in the setting of cardiac arrest versus oxygen demand. -EKG with sinus tachycardia and RBBB -echocardiogram normal LVEF 60-65%, no regional wall motion abnormalities. Grade 3 diastolic dysfunction. [id number] mitral stenosis, mild mitral regurgitation, bewldeqa-[id number] aortic stenosis. -Receiving IV antibiotics. -Hemodynamically stable, not requiring vasopressors -we will arrange for patient to see structural cardiology in our clinic upon discharge for TAVR workup and left heart catheterization. -we will hold off on initiating Aldactone and Jardiance until patient clinically stable. -trialing spontaneous breathing this morning per critical care recommendations -continue supportive treatment and management of sepsis, community-acquired pneumonia, and seizures -progressive care per primary team -cardiology will continue follow By: Madie Ramirez APRN, HUSSEIN; 01/27/2024, 10:05 AM FORMS DESIGNER S DESIGNER * Gagan Montiel MD - 01/26/2024 3:13 PM CST [facility] INPATIENT DAILY PROGRESS NOTE Critical care time: 35 minutes Papito Joseph is a 78 y.o. male at Hospital LOS: 1 day Assessment: Active Hospital Problems Diagnosis Date Noted Seizures (HCC) SD (myocardial infarction) (HCC) CVA (cerebral vascular accident) (HCC) COPD (chronic obstructive pulmonary disease) (HCC) BPH (benign prostatic hyperplasia) A-fib (HCC) Aortic valve stenosis Mitral valve stenosis Chronic diastolic heart failure (HCC) CAD (coronary artery disease) TIA (transient ischemic attack) HLD (hyperlipidemia) Pulmonary HTN (HCC) DM type 2 (diabetes mellitus, type 2) ([facility]) Cardiopulmonary arrest with successful resuscitation ([facility]) 01/25/2024 Resolved Hospital Problems No resolved problems to display. Vitals: 01/26/24 0600 01/26/24 0615 01/26/24 0630 01/26/24 0645 Temp: 99.3 ??F (37.4 ??C) 99.3 ??F (37.4 ??C) 99.3 ??F (37.4 ??C) 99.3 ??F (37.4 ??C) TempSrc: Heart Rate (Monitor): 91 88 100 96 Pulse: 91 88 96 92 Resp: 20 15 29 28 BP: 94/52 97/51 101/63 108/61 Height: Weight: SpO2: 100% 100% 100% 99% I/O last 3 completed shifts: In: 2470.5 [I.V.:1960.5; NG/GT:60; IV Piggyback:450] Out: 840 [Urine:840] Plan: Plan Cardiopulmonary Arrest Ddx: Cardiac vs Infection vs Seizure 3 mins CPR with ROS achieved Intubated by ERP Newspaper Delivery Counselor consulted Admitted to ICU 01/26/2024 --- echocardiogram and evaluation by housing and residence life director, Neurology and Cardiology Services. Patient remains on supportive care while intubated Sepsis possible lung vs urine source Temp 100.9, HR 109, Hypotensive SBP 70-80, Lactic Acid 10.4 1150 IVF bolus given Blood and urine Cult pending Empiric antibiotics started 01/26/2024 --- no growth to date on blood culture testing x2 nor urine culture. Antibiotic therapy continues NSTEMI EKG ST Troponin 61-108-152 Heparin gtt ASA given Echo ordered Cardiology consulted 01/26/2024 ---echocardiogram obtained, cardiology evaluation Concerns for Aspiration vs Community Acquired Pneumonia CXR Diffuse interstitial prominence within both lungs, with patchy opacities in the bases. Small effusions. CT Chest/ A/P-There is patchy consolidation at both lung bases, worse on the left. There is a large amount of debris in the left mainstem bronchus extending into the other bronchi in the left lung MRSA Pcr negative Urine antigen and Procalcitonin ordered Empiric Zosyn and azithromycin 01/26/2024 ---antibiotic therapy continues. No growth to date on blood culture nor respiratory culture testing Breakthrough Seizure Postictal status Heat CT-No evidence of acute large vessel territorial infarction. 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 Keppra started Neuro consulted EEG ordered 01/26/2024 ---neurology evaluation with the addition of Vimpat to current management Possible Acute Cystitis UA + WBC Esterase, few bacteria , small amount epithelial cells, and WBC 11-20 Urine culture pending Pt already started on empiric Zosyn 01/26/2024 ---no growth to date. Antibiotic therapy continues Type 2 DM A1c 5.6 BS stable Low dose SSI 01/26/2024 ---continue monitor fingerstick glucose levels Chronic diastolic Heart Failure /Pulmonary HTN In no exacerbation Last Echo 02/25/2023 EF 60-65% PO meds on hold 01/26/2024 ---echocardiogram testing Moderate Aortic Stenosis Severe Mitral Stenosis Noted on Echo 07/27/2023 Caroid Aortic Stenosis S/p left CEA 01/2022 History of Atrial Fibrillation-onset 02/2022 S/p ablation 07/2022 s/p cardio version 09/24/2022 On eliquis at home but NPO therefore will start weight base Lovenox BID COPD PFT from 07/27/2022 Show moderate obstructive pattern consistent with COPD Hx of CVA Per chart review 3 years ago recovered VTE Prophylaxis: Full dose Lovenox Expected discharge date: 01/29/2024 Subjective: Interval History: Patient seen at bedside in ICU. At present time patient remains ventilator management and weaning trial will be provided. Consultation evaluations with housing and residence life director, html developer andNeurology services requested. Echocardiogram obtained. Review of Systems: A 14 point comprehensive review of systems was negative, except as documented in HPI. Objective: Exam: General: Intubated and sedated. Skin: normal coloration and turgor, no rashes. HEENT: normocephalic, atraumatic. Pupils equal, round and reactive to light. Extraocular movements intact. Oronasopharynx pink and moist, no lesion or exudate. Neck: Supple. No JVD, lymphadenopathy thyromegaly or carotid bruits auscultated. CVS: RRR, S1/S2 normal, no murmurs, gallops or rubs. Chest: Poor inspiratory effort, no focal consolidation. Abdominal: soft, nontender, nondistended. Positive Bowel sounds, no organomegaly appreciated. Extremities: no edema, no clubbing or cyanosis. Neuro: Unable to assess, patient is sedated. Lab Results: Lab Results Component Value Date PHARTERIAL 7.34 (L) 01/25/2024 PO2ART 62 (L) 01/25/2024 [id number] 48 (H) 01/25/2024 O2ART 86 (L) 01/25/2024 Lab Results Component Value Date WBC 7.58 01/26/2024 HEMOGLOBIN 10.2 (L) 01/26/2024 PLATELETCNT 211 01/26/2024 MCV 93.1 01/26/2024 Lab Results Component Value Date SODIUM 143 01/26/2024 POTASSIUM 3.5 01/26/2024 CHLORIDE 112 (H) 01/26/2024 CO2VEN 25 01/26/2024 ANIONGAP 9.5 01/26/2024 GLUCOSE 85 01/26/2024 BUN 18 01/26/2024 CREATININE 1.05 01/26/2024 BCRATIO8 17 01/26/2024 TOTALPROTEIN 5.4 (L) 01/26/2024 ALBUMIN 2.7 (L) 01/26/2024 CALCIUM 8.4 (L) 01/26/2024 TBIL 0.5 01/26/2024 SGOTAST 22 01/26/2024 SGPTALT 10 01/26/2024 ALKALINEPHO 52 01/26/2024 GFRNA >60 01/26/2024 GFRA >60 01/26/2024 Lab Results Component Value Date CPK 407 (H) 01/26/2024 No results found for: FOLATE Lab Results Component Value Date LACTICA 1.9 01/26/2024 No results found for: [id number] No results found for: FERRITIN Lab Results Component Value Date GLUCOSEPOCT 100 (H) 01/26/2024 EKG: No results found. Imaging: XR CHEST SINGLE VIEW PORTABLE Result Date: 01/26/2024 IMPRESSION: Small right pneumothorax. Hypoventilatory chest with bibasilar atelectasis and small left effusion. Endotracheal and enteric tubes in place. Findings were discussed with Elsa Weaver RN, at 06:33 on 01/26/2024 . RBV. By: Gagan Montiel MD, 01/26/2024 3:13 PM FORMS DESIGNER S DESIGNER * Spenser Leonard MD - 01/26/2024 11:34 AM CST INPATIENT PROGRESS NOTE - Newspaper Delivery Counselor Papito Joseph is a 78 y.o. male at Hospital Day (LOS: 1 day) This patient has been followed by Critical Care because of: Respiratory failure, cardiopulmonary arrest, pneumonia, seizures Subjective: Patient is undergoing sedation interruption today to evaluate his neurological status and obtain EEG. No further seizures orders Objective: Temp Av.3 ??F (37.9 ??C) Min: 96.7 ??F (35.9 ??C) Max: 101.3 ??F (38.5 ??C) BP Min: 77/46 Max: 192/72 Pulse Av.8 Min: 66 Max: 117 Heart Rate (Monitor) Av.1 Min: 67 Max: 128 Resp Av.6 Min: 12 Max: 51 SpO2 Av.3 % Min: 80 % Max: 100 % I/O last 3 completed shifts: In: 2470.5 [I.V.:1960.5; NG/GT:60; IV Piggyback:450] Out: 840 [Urine:840] Weights: Wt Readings from Last 3 Encounters: 01/25/24 159 lb 11.2 oz (72.4 kg) PHYSICAL EXAM: Patient is starting to open his eyes but does not follow commands yet for me Blood pressure is 108/61 heart rate was 96 respiratory rate 20 oxygen saturation was 99% HEENT no discharge per ears or nose Neck no jugular distention Lungs no wheezing positive rales bilaterally Cardiovascular was regular non tachycardic Abdomen was soft not distended Extremities shows no significant erythema Neurologically the patient is open his eyes and trying to move spontaneously but not following commands Skin shows no rash Active Scheduled and PRN meds aspirin, 81 mg, Daily Or aspirin, 300 mg, Daily azithromycin, 500 mg, Q24H enoxaparin, 1 mg/kg, Q12H PATTIE EPINEPHrine, , famotidine (PEPCID) IV, 20 mg, Daily insulin lispro (HumaLOG) injection, 2-12 Units, 4 times per day ipratropium-albuterol, 3 mL, Q6H levETIRAcetam, 1,000 mg, Q12H magnesium replacement, 1 Each, BID piperacillin-tazobactam, 4.5 g, Q8H potassium replacement, 1 Each, BID acetaminophen, 650 mg, Q4H PRN Or acetaminophen, 650 mg, Q4H PRN glucose, 15 g, PRN Or dextrose, 12.5 g, PRN Or glucagon injection 1 mg, 1 mg, PRN Or glucagon injection 1 mg, 1 mg, PRN EPINEPHrine ANAPHYLAXIS ORDERABLE, 0.3 mg, Once PRN EPINEPHrine, , fentaNYL (PF), 25 mcg, Q1H PRN hydrALAZINE, 10 mg, Q1H PRN labetalol (NORMODYNE;TRANDATE) injection 10 mg, 10 mg, Q1H PRN lorazepam, 2 mg, Q1H PRN magnesium hydroxide, 30 mL, Daily PRN metoclopramide, 5 mg, Q6H PRN midazolam, 5 mg, Q1H PRN ondansetron, 4 mg, Q6H PRN polyethylene glycol, 17 g, BID PRN Prochlorperazine Edisylate, 10 mg, Q6H PRN senna, 1 Tablet, BID PRN Lab Review Lab Results Component Value Date WBC 7.58 01/26/2024 HEMOGLOBIN 10.2 (L) 01/26/2024 PLATELETCNT 211 01/26/2024 MCV 93.1 01/26/2024 Lab Results Component Value Date SODIUM 143 01/26/2024 POTASSIUM 3.5 01/26/2024 CHLORIDE 112 (H) 01/26/2024 CO2VEN 25 01/26/2024 GLUCOSE 85 01/26/2024 BUN 18 01/26/2024 CREATININE 1.05 01/26/2024 CALCIUM 8.4 (L) 01/26/2024 MAGNESIUM 1.6 01/26/2024 ALBUMIN 2.7 (L) 01/26/2024 Lab Results Component Value Date SODIUM 143 01/26/2024 POTASSIUM 3.5 01/26/2024 CHLORIDE 112 (H) 01/26/2024 CO2VEN 25 01/26/2024 GLUCOSE 85 01/26/2024 ANIONGAP 9.5 01/26/2024 BUN 18 01/26/2024 CREATININE 1.05 01/26/2024 CALCIUM 8.4 (L) 01/26/2024 Lab Results Component Value Date SODIUM 143 01/26/2024 POTASSIUM 3.5 01/26/2024 CHLORIDE 112 (H) 01/26/2024 CO2VEN 25 01/26/2024 ANIONGAP 9.5 01/26/2024 GLUCOSE 85 01/26/2024 BUN 18 01/26/2024 CREATININE 1.05 01/26/2024 BCRATIO8 17 01/26/2024 TOTALPROTEIN 5.4 (L) 01/26/2024 ALBUMIN 2.7 (L) 01/26/2024 CALCIUM 8.4 (L) 01/26/2024 TBIL 0.5 01/26/2024 SGOTAST 22 01/26/2024 SGPTALT 10 01/26/2024 ALKALINEPHO 52 01/26/2024 GFRNA >60 01/26/2024 GFRA >60 01/26/2024 Lab Results Component Value Date INR 1.2 01/25/2024 PTP 15.1 (H) 01/25/2024 Lab Results Component Value Date PHARTERIAL 7.34 (L) 01/25/2024 PO2ART 62 (L) 01/25/2024 XCB0COP 48 (H) 01/25/2024 O2ART 86 (L) 01/25/2024 Radiology Results were Reviewed Labs/chart/meds reviewed. Assessment/Plan: 1. Neurologically: Patient is on sedation interruption. Waiting to do EEG once he is completely offsedation continue Keppra. Will evaluate his neurological status post cardiac arrest off sedation 2. Cardiovascular: Cardiopulmonary arrest, unclear etiology echocardiogram pending. Troponins were mildly elevated. EKG did not show any definite ischemia. 3. Respiratory: Failure associated with pneumonia, possible aspiration. Chest x- ray today shows small pneumothorax in the right side with worsening bilateral infiltrates. ABG showed a pH 7.34 with a pCO2 48 PO2 of 62. We are continuing to wean FiO2 as tolerated. Will follow up 4. GI: Will start him on tube feedings. Continue prophylaxis with Pepcid 5. and renal: BUN and creatinine are overall normal as well as electrolytes 6. Endocrine: Blood sugars overall stable 7. Hematologically: CBC shows normal white blood cell count with decreased hemoglobin. This will befollowed 8. DVT prophylaxis: He is fully anticoagulated on Lovenox 9. Id: Continue present antibiotics for now pending cultures. Spent total of 35 minutes critical care time Voice recognition software was used to dictate this note. In spite of proofreading, typographical and/or content errors may have occurred. Spenser Demarco MD 01/26/2024 11:34 AM FORMS DESIGNER S DESIGNER * Tino Nettles MD - 01/25/2024 7:55 PM CST Telemedicine Note: Chart reviewed Camera assessment done Orders reviewed Pt was seen and admitted by day time housing and residence life director - recommendation reviewed and fully agree. No new recommendations from our side Will monitor closely @ this time. A: Seizures breakthrough likely Aspiration pneumonia Supposed cardiac arrest ? Thready pulse in the setting of Sz ? Acute respiratory failure on ventilator Plan: As per primary housing and residence life director. S DESIGNER documented in this encounter H&P Notes * Luzma Bermudez, LORE, AUTOMAT WATCHER - 01/25/2024 8:47 PM CST [facility] ADMISSION HISTORY & PHYSICAL Critical Care Time 45 min HPI: Papito Joseph is a 78 y.o. male COPD/ emphysema quit <1yr ago , history of seizures on Keppra,BPH, hx CVA, Afib on Eliquis, Aortic valve stenosis, mitral valve stenosis, Chronic Diastolic heathfailure, CAD, TIA, HLD, Pulmonary HTN, DMII, who presented to [facility] with complaints of altered mental status. Per granddaughter pt is from [place] and has recently moved in with family in Oct 2023 due to his passing. Son takes pt to all MD appointments. At time of assessment pt intubated and sedated, HPI obtained through talking to granddaughter at bedside and chart review. Per the granddaughter pt was found by Pt's son outside sitting in chair with altered mental status this morning. Granddaughter states pt was staring at TV but nothing was on less responsive verbally to questions and only able to answer yea to any question asked. Son called EMS and pt was brought to ED for further evaluation. Per chart review while pt was in Ct scan pt had a seizure followed by postictal state and lost pulse requiring about 3mins of CPR. ROS obtained, pt intubated, Newspaper Delivery Counselor consulted. In the Ed labs were unremarkable except Co2 18, Anion gap 23.7, Lactic acid 10.4 CT Head -No evidence of acute large vessel territorial infarction. 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 CTA Head/Neck- No carotid or vertebral stenosis. Allergies: is allergic to gabapentin. Home Medications: Prior to Admission Medications Prescriptions Last Dose Informant Patient Reported? Taking? Vitamin D3 (cholecalciferol) 1000 UNIT Tablet 01/24/2024 Yes Yes Sig: Take 25 mcg by mouth daily. Indications: Vitamin D Deficiency albuterol (PROVENTIL, VENTOLIN) (2.5 MG/3ML) 0.083% Nebulizer Soln 01/24/2024 Yes Yes Si.5 mg by Nebulization route every 6 hours as needed for Shortness of Breath. albuterol 108 (90 Base) MCG/ACT Aerosol Solution 01/24/2024 Yes Yes Sig: take 1 Puff by inhalation every 6 hours as needed for Wheezing. apixaban (ELIQUIS) 5 MG Tablet 01/24/2024 Yes Yes Sig: Take 5 mg by mouth 2 times daily. atorvastatin (LIPITOR) 80 MG Tablet 01/24/2024 Yes Yes Sig: Take 1 Tablet by mouth every evening. budesonide-formoterol fumarate (SYMBICORT) 160-4.5 MCG/ACT Aerosol 01/24/2024 Yes Yes Sig: take 2 Puffs by inhalation 2 times daily. ferrous sulfate 325 (65 Fe) MG Tablet 01/18/2024 Yes Yes Sig: Take 325 mg by mouth three times a week. Indications: Iron Deficiency finasteride (PROSCAR) 5 MG Tablet 01/24/2024 Yes Yes Sig: Take 5 mg by mouth daily. fluticasone-salmeterol (ADVAIR) 250-50 MCG/ACT AEROSOL POWDER, BREATH ACTIVATED 01/24/2024 Yes Yes Sig: take 1 Puff by inhalation 2 times daily. furosemide (LASIX) 40 MG Tablet 01/24/2024 Yes Yes Sig: Take 40 mg by mouth daily. levETIRAcetam (KEPPRA) 500 MG Tablet 01/24/2024 Yes Yes Sig: Take 500 mg by mouth 2 times daily. lisinopril (PRINIVIL, ZESTRIL) 10 MG Tablet 01/24/2024 Yes Yes Sig: Take 10 mg by mouth daily. melatonin 3 MG Tablet Unknown Yes No Sig: Take 5 mg by mouth nightly as needed for Other. Indications: Trouble Sleeping oxybutynin (DITROPAN-XL) 5 MG TABLET SR 24 HR 01/24/2024 Yes Yes Sig: Take 5 mg by mouth daily. pantoprazole (PROTONIX) 40 MG Tablet Delayed Response 01/24/2024 Yes Yes Sig: Take 40 mg by mouth daily. potassium chloride SA (KLORCON M) 20 MEQ Tablet Controlled Release 01/24/2024 Yes Yes Sig: Take 10 mEq by mouth daily. senna-docusate (SENOKOT S) 8.6-50 MG Tablet 12/26/2023 Yes Yes Sig: Take 1 Tablet by mouth 2 times daily. tiotropium-olodaterol (STIOLTO RESPIMAT) 2.5-2.5 MCG/ACT Aerosol Solution 01/24/2024 Yes Yes Sig: take 2 Puffs by inhalation daily. traMADol (ULTRAM) 50 MG Tablet 12/26/2023 Yes Yes Sig: Take 50 mg by mouth 2 times daily as needed for Moderate or more severe pain. Facility-Administered Medications: None Past Medical History: He has a past medical history of A-fib (HCC), Aortic valve stenosis, BPH (benign prostatic hyperplasia), CAD (coronary artery disease), Chronic diastolic heart failure ([facility]), COPD (chronic obstructive pulmonary disease) ([facility]), CVA (cerebral vascular accident) ([facility]), DM type 2 (diabetes mellitus, type 2) ([facility]), HLD (hyperlipidemia), SD (myocardial infarction) ([facility]), Mitral valve stenosis, Pulmonary HTN ([facility]), Seizures ([facility]), and TIA (transient ischemic attack). Surgical History: has no past surgical history on file. Social History: reports that he has quit smoking. His smoking use included cigarettes. He does not have any smokeless tobacco history on file. Family History: Family history is unknown by patient. Review of Systems: Unable to assess pt intubated Physical Exam: VITALS:Temp Av.5 ??F (38.1 ??C) Min: 96.7 ??F (35.9 ??C) Max: 101.3 ??F (38.5 ??C) BP Min: 77/46 Max: 192/72 Pulse Av.8 Min: 66 Max: 117 Heart Rate (Monitor) Av.4 Min: 67 Max: 128 Resp Av.8 Min: 12 Max: 51 SpO2 Av % Min: 80 % Max: 100 % I/O last 3 completed shifts: In: 1099 [I.V.:999; IV Piggyback:100] Out: 350 [Urine:350] Weight: Wt Readings from Last 1 Encounters: 01/25/24 159 lb 11.2 oz (72.4 kg) General: pt sedated and intubated, withdrawals from painful stimuli, tachypneic on the vent. Skin: normal coloration and turgor, no rashes HEENT: normocephalic, atraumatic. Pupils equal, round and reactive to light. Extraocular movements intact. Oronasopharynx pink and moist, no lesion or exudate. Neck: Supple. No JVD, lymphadenopathy thyromegaly or carotid bruits auscultated CVS: RRR Murmur heard, no gallops or rubs Chest: course diminished with expiratory wheezing, tachypneic symmetric air entry Abdominal: soft, nontender, nondistended. Positive Bowel sounds, no organomegaly appreciated Extremities: no edema, no clubbing or cyanosis Neuro:intubated and sedated , withdrawals from painful stimuli, Gait not tested Data Review: CT CHEST, ABDOMEN, PELVIS WITHOUT CONTRAST Result Date: 01/25/2024 IMPRESSION: Large amount of debris in the left mainstem bronchus extending into the other bronchi in the left lung. Severe emphysema. Patchy consolidation at both lung bases, worse on the left. Pneumonia is a definite consideration. Small bilateral pleural effusions, cause unknown. Severe atherosclerosis. CTA STROKE HEAD AND NECK Result Date: 01/25/2024 IMPRESSION: CAROTID CTA: No carotid or vertebral stenosis. INTRACRANIAL CTA: Normal. CT HEAD OR BRAIN WO CONTRAST Result Date: 01/25/2024 IMPRESSION: No acute intracranial abnormality. XR CHEST SINGLE VIEW PORTABLE Result Date: 01/25/2024 IMPRESSION: 1. Endotracheal tube in place. Distal tip is approximately 4 cm above the level of the rolando. Nasogastric tube is visualized coursing into the upper abdomen distal tip overlies the epigastric region. 2. Diffuse interstitial prominence within both lungs, with patchy opacities in the bases. Small effusions. 3. There are air-filled somewhat dilated loops of bowel suggested within the upper abdomen as well as some subtle lucency in the right upper quadrant, which is limited in assessment on this study. This may reflect artifact overlying the patient. The potential for free air can not be excluded. Correlate with clinical exam findings. Abdominal radiographs and or CT abdomen/pelvis recommended for further assessment. Findings were conveyed to MELVIN Yi via phone call at 1:01 p.m. on 01/25/2024 CT STROKE HEAD WO CONTRAST Result Date: 01/25/2024 IMPRESSION: No acute intracranial abnormality. Results called to ordering provider at the time of image interpretation. Lab Results Component Value Date WBC 11.53 01/25/2024 HEMOGLOBIN 12.4 (L) 01/25/2024 PLATELETCNT 315 01/25/2024 MCV 96.7 (H) 01/25/2024 Lab Results Component Value Date SODIUM 142 01/25/2024 POTASSIUM 4.7 01/25/2024 CHLORIDE 105 01/25/2024 CO2VEN 18 (L) 01/25/2024 ANIONGAP 23.7 (H) 01/25/2024 GLUCOSE 130 (H) 01/25/2024 BUN 19 01/25/2024 CREATININE 1.27 01/25/2024 BCRATIO8 15 01/25/2024 TOTALPROTEIN 7.7 01/25/2024 ALBUMIN 3.9 01/25/2024 CALCIUM 10.0 01/25/2024 TBIL 0.5 01/25/2024 SGOTAST 18 01/25/2024 SGPTALT 16 01/25/2024 ALKALINEPHO 89 01/25/2024 GFRNA 55 (L) 01/25/2024 GFRA >60 01/25/2024 Lab Results Component Value Date PHARTERIAL 7.34 (L) 01/25/2024 PO2ART 62 (L) 01/25/2024 [id number] 48 (H) 01/25/2024 O2ART 86 (L) 01/25/2024 No results found for: CPK , CPKI , CKMB , CKMBNI , CKMBPOCT , CKMBRELINDX , TROPONINI , POCTRP No results found for: AMYL , AMYLASE No results found for: LIPASE No results found for: CHOLESTEROL , TRIGLYCRIDES , HDLCHOLESTE , LDL Assessment/Plan Active Hospital Problems Diagnosis Date Noted Seizures (HCC) SD (myocardial infarction) (HCC) CVA (cerebral vascular accident) (HCC) COPD (chronic obstructive pulmonary disease) (HCC) BPH (benign prostatic hyperplasia) A-fib (HCC) Aortic valve stenosis Mitral valve stenosis Chronic diastolic heart failure (HCC) CAD (coronary artery disease) TIA (transient ischemic attack) HLD (hyperlipidemia) Pulmonary HTN (HCC) DM type 2 (diabetes mellitus, type 2) ([facility]) Cardiopulmonary arrest with successful resuscitation ([facility]) 01/25/2024 Resolved Hospital Problems No resolved problems to display. Plan: Cardiopulmonary Arrest Ddx: Cardiac vs Infection vs Seizure 3 mins CPR with ROS achieved Intubated by ERP Newspaper Delivery Counselor consulted Admitted to ICU Sepsis possible lung vs urine source Temp 100.9, HR 109, Hypotensive SBP 70-80, Lactic Acid 10.4 1150 IVF bolus given Blood and urine Cult pending Empiric antibiotics started NSTEMI EKG ST Troponin 61-108-152 Heparin gtt ASA given Echo ordered Cardiology consulted Concerns for Aspiration vs Community Acquired Pneumonia CXR Diffuse interstitial prominence within both lungs, with patchy opacities in the bases. Small effusions. CT Chest/ A/P-There is patchy consolidation at both lung bases, worse on the left. There is a large amount of debris in the left mainstem bronchus extending into the other bronchi in the left lung MRSA Pcr negative Urine antigen and Procalcitonin ordered Empiric Zosyn and azithromycin Breakthrough Seizure Postictal status Heat CT-No evidence of acute large vessel territorial infarction. 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 Keppra started Neuro consulted EEG ordered Possible Acute Cystitis UA + WBC Esterase, few bacteria , small amount epithelial cells, and WBC 11-20 Urine culture pending Pt already started on empiric Zosyn Type 2 DM A1c 5.6 BS stable Low dose SSI Chronic diastolic Heart Failure /Pulmonary HTN In no exacerbation Last Echo 02/25/2023 EF 60-65% PO meds on hold Moderate Aortic Stenosis Severe Mitral Stenosis Noted on Echo 07/27/2023 Caroid Aortic Stenosis S/p left CEA 01/2022 History of Atrial Fibrillation-onset 02/2022 S/p ablation 07/2022 s/p cardio version 09/24/2022 On eliquis at home but NPO therefore will start weight base Lovenox BID COPD PFT from 07/27/2022 Show moderate obstructive pattern consistent with COPD Hx of CVA Per chart review 3 years ago recovered Advance Care Planning: Aggregate face to face time discussing end of life advance care planning with patient and/or family and/or Power of Radiologist Physician approximately 16 minutes. Discussed CPR/Intubation/Treatment Goals/Quality of life/Intensity of Care. Patient desires: Full Code VTE Prophylaxis: Full dose Lovenox Treatment Team: Consulting Physician: Spenser Leonard MD; Consulting Physician: Sandeep Carpenter MD PhD Thank you very much for allowing the [facility] Adult Hospitalist Service to participate in the care of this patient. By: Luzma Bermudez APRN, CNP, 01/26/2024, 5:29 AM FORMS DESIGNER Primary Care Physician: UNKNOWN PROVIDER Cosigned by Gagan Montiel MD at 01/26/2024 3:13 PM FORMS DESIGNER S DESIGNER S DESIGNER Associated attestation - Gagan Montiel MD - 01/26/2024 3:13 PM FORMS DESIGNER I collaborated in the care of this patient with the AIRCRAFT LIFE SUPPORT FITTER/MELVIN. I did not personally examine this patient. I agree with the AIRCRAFT LIFE SUPPORT FITTER/PA???s findings and defer to the attached note. I have the following additions/revisions: --- Critical care time: 45 minutes documented in this encounter Consult Notes * Perez Nelson MD - 01/26/2024 1:10 PM CSTAssociated Order(s): IP CONSULT TO NEUROLOGY NEUROLOGY CONSULT Date of Service: 01/26/2024 Assessment and Plan Grand mal seizures - breakthrough seizure versus triggered event - patient has been [facility] - will add Vimpat to his regimen - will try to get further details from his neurologist in [place] - will get an EEG 2. UTI - urine culture positive for Enterococcus faecalis - patient is on ABX 3. Cardiac arrest - - ROSC after 3 minutes Reason for Consultation: seizures HPI: Papito is a 78-year-old gentleman who recently moved from [place] after his . He has been staying with his son who has been helping him. His son is not completely sure in regards tohis medical history though knows that he has had strokes and seizures in the past as well as AFib and CAD. Patient was not getting the best care when he was not [place] as his before she passed awaywas in [facility] herself. Once he came back to stay with his son he started to gain weight andseem to be doing very well. His son had set up his medications in a pillbox and even taking it somewhat religiously. The day of admission patient's son note that he went to his father's room when he saw him watching TV. Patient's son asked him if he had needed help changing the remote when he noticed his father wasnot responding to him and was starting off. Whenever he was talk to he only responded with the izabella.Patient was brought to the emergency department by EMS and in the emergency department patient got a CT scan and was witnessed to have a tonic-clonic seizure. Patient was postictal and in that postictal state became pulseless and received 3 minutes of CPR. Patient was intubated and started on a Versed drip. Patient has been opening his eyes in his more interactive at this time. Past Medical History Positives Diagnosis Date A-fib (HCC) dx in 02/2022, s/p ablation in 07/29/22, cardioversion 09/24/22 Aortic valve stenosis BPH (benign prostatic hyperplasia) CAD (coronary artery disease) Chronic diastolic heart failure ([facility]) COPD (chronic obstructive pulmonary disease) ([facility]) CVA (cerebral vascular accident) ([facility]) 3 yrs ago recovered DM type 2 (diabetes mellitus, type 2) ([facility]) HLD (hyperlipidemia) SD (myocardial infarction) ([facility]) Mitral valve stenosis Pulmonary HTN ([facility]) Seizures ([facility]) TIA (transient ischemic attack) No past surgical history on file. Family History Family history unknown: Yes Social History Tobacco Use Smoking status: Former Types: Cigarettes Smokeless tobacco: Not on file Substance Use Topics Alcohol use: Not on file Allergies Allergen Reactions Gabapentin Rash Medications Prior to Admission Medication Sig Dispense Refill albuterol (PROVENTIL, VENTOLIN) (2.5 MG/3ML) 0.083% Nebulizer Soln 2.5 mg by Nebulization route every 6 hours as needed for Shortness of Breath. albuterol 108 (90 Base) MCG/ACT Aerosol Solution take 1 Puff by inhalation every 6 hours as needed for Wheezing. apixaban (ELIQUIS) 5 MG Tablet Take 5 mg by mouth 2 times daily. atorvastatin (LIPITOR) 80 MG Tablet Take 1 Tablet by mouth every evening. budesonide-formoterol fumarate (SYMBICORT) 160-4.5 MCG/ACT Aerosol take 2 Puffs by inhalation 2 times daily. ferrous sulfate 325 (65 Fe) MG Tablet Take 325 mg by mouth three times a week. Indications: Iron Deficiency finasteride (PROSCAR) 5 MG Tablet Take 5 mg by mouth daily. fluticasone-salmeterol (ADVAIR) 250-50 MCG/ACT AEROSOL POWDER, BREATH ACTIVATED take 1 Puff by inhalation 2 times daily. furosemide (LASIX) 40 MG Tablet Take 40 mg by mouth daily. levETIRAcetam (KEPPRA) 500 MG Tablet Take 500 mg by mouth 2 times daily. lisinopril (PRINIVIL, ZESTRIL) 10 MG Tablet Take 10 mg by mouth daily. melatonin 3 MG Tablet Take 5 mg by mouth nightly as needed for Other. Indications: Trouble Sleeping oxybutynin (DITROPAN-XL) 5 MG TABLET SR 24 HR Take 5 mg by mouth daily. pantoprazole (PROTONIX) 40 MG Tablet Delayed Response Take 40 mg by mouth daily. potassium chloride SA (KLORCON M) 20 MEQ Tablet Controlled Release Take 10 mEq by mouth daily. senna-docusate (SENOKOT S) 8.6-50 MG Tablet Take 1 Tablet by mouth 2 times daily. tiotropium-olodaterol (STIOLTO RESPIMAT) 2.5-2.5 MCG/ACT Aerosol Solution take 2 Puffs by inhalation daily. traMADol (ULTRAM) 50 MG Tablet Take 50 mg by mouth 2 times daily as needed for Moderate or more severe pain. Vitamin D3 (cholecalciferol) 1000 UNIT Tablet Take 25 mcg by mouth daily. Indications: Vitamin D Deficiency Medications midazolam (VERSED) injection 5 mg (5 mg Intravenous Given 01/25/24 5551) piperacillin-tazobactam (ZOSYN) 4.5 g in sodium chloride 0.9 % 100 mL IVPB (4.5 g Intravenous New Bag 01/26/24 1242) metoclopramide (REGLAN) injection 5 mg (has no administration in time range) ondansetron (ZOFRAN) injection 4 mg (has no administration in time range) EPINEPHRINE 1 MG/10ML IV SOSY (has no administration in time range) fentaNYL (PF) (SUBLIMAZE) injection 25 mcg (25 mcg Intravenous Given 01/26/24930) famotidine (PF) (PEPCID) injection 20 mg (20 mg Intravenous Given 01/26/24825) ipratropium-albuterol (DUO-NEB) 0.5-2.5 (3) MG/3ML nebulizer solution 3 mL (3 mL Nebulization Given01/26/24 0747) levETIRAcetam (KEPPRA) injection 1,000 mg (1,000 mg Intravenous Given 01/26/24825) LORazepam (ATIVAN) injection 2 mg (has no administration in time range) azithromycin (ZITHROMAX) 500 mg in sodium chloride 0.9 % 250 mL IVPB (0 mg Intravenous Stopped 01/25/242047) Magnesium Replacement - [facility] Adult Critical Care-Magnesium Replacement (Goal = above 2 mg/dL)- Placeholder (1 Each Miscellaneous Acknowledged 01/26/24899) Potassium Replacement: [facility] Adult Critical Care-STANDARD Potassium Replacement (Goal = above 3.5 mmol/L) - Placeholder (1 Each Miscellaneous Acknowledged 01/26/24899) labetalol (NORMODYNE;TRANDATE) injection 10 mg (has no administration in time range) hydrALAZINE (APRESOLINE) injection 10 mg (has no administration in time range) aspirin chewable tablet 81 mg (81 mg Oral Given 01/26/24826) Or aspirin suppository 300 mg ( Rectal See Alternative 01/26/24826) glucose (GLUTOSE) 40 % gel GEL 15 g (has no administration in time range) Or dextrose 50 % solution 12.5 g (has no administration in time range) Or Glucagon Emergency injection KIT 1 mg (has no administration in time range) Or Glucagon Emergency injection KIT 1 mg (has no administration in time range) polyethylene glycol (GLYCOLAX, MIRALAX) packet 17 g (has no administration in time range) senna (SENOKOT) tablet 8.6 mg (has no administration in time range) magnesium hydroxide (MILK OF MAGNESIA) 400 MG/5ML suspension 30 mL (has no administration in time range) acetaminophen (TYLENOL) tablet 650 mg (650 mg Oral Given 01/26/24204) Or acetaminophen (TYLENOL) suppository 650 mg ( Rectal See Alternative 12/16/24 0205) Prochlorperazine Edisylate (COMPAZINE) injection 10 mg (has no administration in time range) insulin lispro (HumaLOG) 100 UNIT/ML injection 2-12 Units ( Subcutaneous Not Given 01/26/24 1200) enoxaparin (LOVENOX) injection 70 mg (70 mg Subcutaneous Given 01/26/24 0826) EPINEPHrine (Anaphylaxis) injection 0.3 mg (has no administration in time range) propofol (DIPRIVAN) injection (has no administration in time range) lacosamide (VIMPAT) injection 100 mg (has no administration in time range) etomidate (AMIDATE) injection 20 mg (20 mg Intravenous Given 01/25/24 1135) EPINEPHrine (ADRENALINE) injection (1 mg Intravenous Given 01/25/24 1135) iopamidol (ISOVUE-370) 76 % injection 100 mL (100 mL Intravenous Given 01/25/24 1237) 0.9 % sodium chloride solution (0 mL Intravenous Stopped 01/25/24 1430) 0.9 % sodium chloride solution (0 mL Intravenous Stopped 01/25/24 1718) piperacillin-tazobactam (ZOSYN) 4.5 g in sodium chloride 0.9 % 100 mL IVPB (0 g Intravenous Biijqke65/15/24 1622) sulfur hexafluoride microsphere (LUMASON) 25 mg in 0.9% sodium chloride (diluent for Lumason) 5 mL total volume syringe (3 mL Intravenous Given 01/26/24 0830) potassium chloride IVPB 20 mEq 100 mL (0 mEq Intravenous Stopped 01/26/24 1131) magnesium sulfate in 5 % dextrose IVPB premix 1 g (0 g Intravenous Stopped 01/26/24 1130) Review of Systems: A 14 point Review of Systems is obtained, and is negative other than that mentioned in the History of Present Illness. Objective: VITALS: Blood pressure 108/61, pulse 92, temperature 99.3 ??F (37.4 ??C), resp. rate 28, height 5' 10 (1.778 m), weight 159 lb 11.2 oz (72.4 kg), SpO2 99%. Weight: Wt Readings from Last 1 Encounters: 01/25/24 159 lb 11.2 oz (72.4 kg) Body mass index is 22.91 kg/m??. EXAM: General appearance: alert, no distress, cooperative, appears stated age Head: Normocephalic, without obvious abnormality, atraumatic Heart: regular rate and rhythm, S1, S2 normal, no murmur, click, rub or gallop Extremities: extremities normal, atraumatic, no cyanosis or edema Neurologic: Data Review: Radiology Reviewed: yes XR CHEST SINGLE VIEW PORTABLE Result Date: 01/26/2024 IMPRESSION: Small right pneumothorax. Hypoventilatory chest with bibasilar atelectasis and small left effusion. Endotracheal and enteric tubes in place. Findings were discussed with Elsa Weaver RN, at 06:33 on 01/26/[address] CHEST, ABDOMEN, PELVIS WITHOUT CONTRAST Result Date: 01/25/2024 IMPRESSION: Large amount of debris in the left mainstem bronchus extending into the other bronchi in the left lung. Severe emphysema. Patchy consolidation at both lung bases, worse on the left. Pneumonia is a definite consideration. Small bilateral pleural effusions, cause unknown. Severe atherosclerosis. CTA STROKE HEAD AND NECK Result Date: 01/25/2024 IMPRESSION: CAROTID CTA: No carotid or vertebral stenosis. INTRACRANIAL CTA: Normal. CT HEAD OR BRAIN WO CONTRAST Result Date: 01/25/2024 IMPRESSION: No acute intracranial abnormality. XR CHEST SINGLE VIEW PORTABLE Result Date: 01/25/2024 IMPRESSION: 1. Endotracheal tube in place. Distal tip is approximately 4 cm above the level of the rolando. Nasogastric tube is visualized coursing into the upper abdomen distal tip overlies the epigastric region. 2. Diffuse interstitial prominence within both lungs, with patchy opacities in the bases. Small effusions. 3. There are air-filled somewhat dilated loops of bowel suggested within the upper abdomen as well as some subtle lucency in the right upper quadrant, which is limited in assessment on this study. This may reflect artifact overlying the patient. The potential for free air can not be excluded. Correlate with clinical exam findings. Abdominal radiographs and or CT abdomen/pelvisrecommended for further assessment. Findings were conveyed to MELVIN Yi via phone call at 1:01p.m. on 01/25/2024 CT STROKE HEAD WO CONTRAST Result Date: 01/25/2024 IMPRESSION: No acute intracranial abnormality. Results called to ordering provider at the time of image interpretation. CBC: Lab Results Component Value Date WBC 7.58 01/26/2024 RBC 3.48 (L) 01/26/2024 HEMOGLOBIN 10.2 (L) 01/26/2024 PLATELETCNT 211 01/26/2024 CMP: Lab Results Component Value Date SODIUM 143 01/26/2024 POTASSIUM 3.5 01/26/2024 CHLORIDE 112 (H) 01/26/2024 CO2VEN 25 01/26/2024 ANIONGAP 9.5 01/26/2024 GLUCOSE 85 01/26/2024 BUN 18 01/26/2024 CREATININE 1.05 01/26/2024 BCRATIO8 17 01/26/2024 TOTALPROTEIN 5.4 (L) 01/26/2024 ALBUMIN 2.7 (L) 01/26/2024 CALCIUM 8.4 (L) 01/26/2024 TBIL 0.5 01/26/2024 SGPTALT 10 01/26/2024 ALKALINEPHO 52 01/26/2024 GFRNA >60 01/26/2024 GFRA >60 01/26/2024 GFRES >60 01/26/2024 Coagulation: Lab Results Component Value Date PTP 15.1 (H) 01/25/2024 INR 1.2 01/25/2024 PTT 28 01/25/2024 Cardiac markers: Lab Results Component Value Date HSTRP 142 (H) 01/26/2024 ABGs: Lab Results Component Value Date PHARTERIAL 7.34 (L) 01/25/2024 QAI8CRD 48 (H) 01/25/2024 PO2ART 62 (L) 01/25/2024 O2ART 86 (L) 01/25/2024 I personally reviewed the above labs and radiological studies (images if available and reports), and agree with the radiologist unless stated above. By: Perez Nelson MD, 01/26/2024, 1:11 PM FORMS DESIGNER Primary Care Physician: UNKNOWN PROVIDER S DESIGNER * Madie Ramirez APRN, AUTOMAT WATCHER - 01/26/2024 12:24 PM CSTAssociated Order(s): IP CONSULT TO CARDIOLOGY CARDIOLOGY CONSULTATION NOTE Papito Joseph is a 78 y.o. male admitted 01/25/2024 11:18 AM (LOS: 1 day) CHIEF COMPLAINT S/p cardiac arrest HPI: Papito Joseph is a 78 y.o. male with a past medical history significant for COPD, seizures, BPH, CVA, aortic valve stenosis, mitral valve stenosis, chronic diastolic heart failure, CAD, hyperlipidemia, and type 2 diabetes mellitus. Patient is currently intubated and sedated. HPI collected through chart review and collaboration with healthcare team. Yesterday, patient was found with altered mental status at home. He was brought to the emergency and taken for a CT scan. While in scanner, patient experienced a seizure with supposed loss of pulse. CPR was initiated and ROSC was obtained. He was intubated and sedated at that time. On arrival, labswere significant for lactic acid 10.4, arterial blood gas after bagging was pH 7.03, pCO2 74. Initial troponin was 12. EKG revealed sinus tachycardia with right bundle-branch block. CT of head strokeprotocol was unremarkable. CT of chest revealed of debris in the left mainstem bronchus extending left lung, severe emphysema patchy consolidation both bases and small bilateral pleural effusions. Past Medical/ Social/Family History: Medications Prior to Admission Medication Sig Dispense Refill albuterol (PROVENTIL, VENTOLIN) (2.5 MG/3ML) 0.083% Nebulizer Soln 2.5 mg by Nebulization route every 6 hours as needed for Shortness of Breath. albuterol 108 (90 Base) MCG/ACT Aerosol Solution take 1 Puff by inhalation every 6 hours as needed for Wheezing. apixaban (ELIQUIS) 5 MG Tablet Take 5 mg by mouth 2 times daily. atorvastatin (LIPITOR) 80 MG Tablet Take 1 Tablet by mouth every evening. budesonide-formoterol fumarate (SYMBICORT) 160-4.5 MCG/ACT Aerosol take 2 Puffs by inhalation 2 times daily. ferrous sulfate 325 (65 Fe) MG Tablet Take 325 mg by mouth three times a week. Indications: Iron Deficiency finasteride (PROSCAR) 5 MG Tablet Take 5 mg by mouth daily. fluticasone-salmeterol (ADVAIR) 250-50 MCG/ACT AEROSOL POWDER, BREATH ACTIVATED take 1 Puff by inhalation 2 times daily. furosemide (LASIX) 40 MG Tablet Take 40 mg by mouth daily. levETIRAcetam (KEPPRA) 500 MG Tablet Take 500 mg by mouth 2 times daily. lisinopril (PRINIVIL, ZESTRIL) 10 MG Tablet Take 10 mg by mouth daily. melatonin 3 MG Tablet Take 5 mg by mouth nightly as needed for Other. Indications: Trouble Sleeping oxybutynin (DITROPAN-XL) 5 MG TABLET SR 24 HR Take 5 mg by mouth daily. pantoprazole (PROTONIX) 40 MG Tablet Delayed Response Take 40 mg by mouth daily. potassium chloride SA (KLORCON M) 20 MEQ Tablet Controlled Release Take 10 mEq by mouth daily. senna-docusate (SENOKOT S) 8.6-50 MG Tablet Take 1 Tablet by mouth 2 times daily. tiotropium-olodaterol (STIOLTO RESPIMAT) 2.5-2.5 MCG/ACT Aerosol Solution take 2 Puffs by inhalation daily. traMADol (ULTRAM) 50 MG Tablet Take 50 mg by mouth 2 times daily as needed for Moderate or more severe pain. Vitamin D3 (cholecalciferol) 1000 UNIT Tablet Take 25 mcg by mouth daily. Indications: Vitamin D Deficiency Allergies Allergen Reactions Gabapentin Rash Past Medical History Positives Diagnosis Date A-fib (HCC) dx in 02/2022, s/p ablation in 07/29/22, cardioversion 09/24/22 Aortic valve stenosis BPH (benign prostatic hyperplasia) CAD (coronary artery disease) Chronic diastolic heart failure (HCC) COPD (chronic obstructive pulmonary disease) (HCC) CVA (cerebral vascular accident) ([facility]) 3 yrs ago recovered DM type 2 (diabetes mellitus, type 2) (HCC) HLD (hyperlipidemia) SD (myocardial infarction) (HCC) Mitral valve stenosis Pulmonary HTN (HCC) Seizures (HCC) TIA (transient ischemic attack) No past surgical history on file. Social History Socioeconomic History Marital status: Spouse name: Not on file Number of children: Not on file Years of education: Not on file Highest education level: Not on file Occupational History Not on file Tobacco Use Smoking status: Former Types: Cigarettes Smokeless tobacco: Not on file Substance and Sexual Activity Alcohol use: Not on file Drug use: Not on file Sexual activity: Not on file Other Topics Concern Not on file Social History Narrative Not on file Social Drivers of Health Financial Resource Needs: Patient Unable To Answer (01/25/2024) Overall Financial Resource Strain (CARDIA) Difficulty of Paying Living Expenses: Patient unable to answer Food Insecurity Needs: Patient Unable To Answer (01/25/2024) Hunger Vital Sign Worried About Running Out of Food in the Last Year: Patient unable to answer Ran Out of Food in the Last Year: Patient unable to answer Transportation Needs: Patient Unable To Answer (01/25/2024) PRAPARE - Transportation Lack of Transportation (Medical): Patient unable to answer Lack of Transportation (Non-Medical): Patient unable to answer Physical Activity: Patient Unable To Answer (01/25/2024) Exercise Vital Sign Days of Exercise per Week: Patient unable to answer Minutes of Exercise per Session: Patient unable to answer Stress: Patient Unable To Answer (01/25/2024) [place] [place] [employer] - Occupational Stress Questionnaire Feeling of Stress : Patient unable to answer Social Integration: Patient Unable To Answer (01/25/2024) Social Connection and Isolation Panel [NHANES] Frequency of Communication with Friends and Family: Patient unable to answer Frequency of Social Gatherings with Friends and Family: Patient unable to answer Attends [employer] Services: Patient unable to answer Active Member of Clubs or Organizations: Patient unable to answer Attends Club or Organization Meetings: Patient unable to answer Marital Status: Patient unable to answer Personal Safety: Unknown (01/25/2024) Personal Safety Feels Unsafe at Home or Work/School: unable to answer (comment required) Feels Threatened by Someone: unable to answer (comment required) Does Anyone Try to Keep You From Having Contact with Others or Doing Things Outside Your Home?: unable to answer (comment required) Physical Signs of Abuse Present: no Housing Stability: Patient Unable To Answer (01/25/2024) Housing Stability Vital Sign Unable to Pay for Housing in the Last Year: Patient unable to answer Number of Times Moved in the Last Year: 2 Homeless in the Last Year: Patient unable to answer Family History Family history unknown: Yes Review of Systems: All systems were reviewed and are negative other than what is noted in HPI. Objective: BP 108/61 Pulse 92 Temp 99.3 ??F (37.4 ??C) Resp 28 Ht 5' 10 (1.778 m) Wt 159 lb 11.2 oz(72.4 kg) SpO2 99% BMI 22.91 kg/m?? Physical Exam: General appearance: Intubated and sedated Head: Normocephalic, without obvious abnormality, atraumatic, intubated Neck: supple, symmetrical, trachea midline, no adenopathy, and no Jugular Venous Distention Lungs: rhonchi bilaterally Heart: Normal rhythm, tachycardic rate, unable to appreciate murmurs/clicks/gallops Abdomen: soft. Bowel sounds normal. Extremities: extremities normal, atraumatic, no cyanosis or edema. In bilateral soft wrist restraints Pulses: 2+ and symmetric Musculoskeletal: Unable to obtain Neurologic: Intubated and sedated. Withdraws from pain Cardiographics: ECG: Sinus tachycardia with right bundle-branch block . Echocardiogram: Ordered Imaging: Chest X-Ray: Small right pneumothorax. Hypoventilatory chest with bibasilar atelectasis and small left effusion. Endotracheal and enteric tubes in place. Lab Review: CBC: Lab Results Component Value Date WBC 7.58 01/26/2024 HEMOGLOBIN 10.2 (L) 01/26/2024 PLATELETCNT 211 01/26/2024 BMP: Lab Results Component Value Date SODIUM 143 01/26/2024 POTASSIUM 3.5 01/26/2024 CHLORIDE 112 (H) 01/26/2024 CO2VEN 25 01/26/2024 GLUCOSE 85 01/26/2024 BUN 18 01/26/2024 CREATININE 1.05 01/26/2024 CREATININE 1.27 01/25/2024 CREATININE 1.0 01/25/2024 CALCIUM 8.4 (L) 01/26/2024 Coagulation: Lab Results Component Value Date INR 1.2 01/25/2024 Cardiac markers: Lab Results Component Value Date CPK 407 (H) 01/26/2024 Lab Results Component Value Date CHOLESTEROL 84 01/26/2024 TRIGLYCRIDES 66 01/26/2024 TRIGLYCRIDES 60 01/26/2024 HDLCHOLESTE 34 (L) 01/26/2024 LDL 37 01/26/2024 Lab Results Component Value Date SGPTALT 10 01/26/2024 No results found for: BNP , BNPPOCT Assessment/ Plan: Cardiopulmonary Arrest, suspected Sepsis Community Acquired Pneumonia NSTEMI Seizure -S/p suspected cardiopulmonary arrest with about 3 minutes of CPR. ROSC achieved. -Troponin trend 12->61->108->152->142. Troponin likely elevated in the setting of cardiac arrest versus oxygen demand. -EKG with sinus tachycardia and RBBB -echocardiogram normal LVEF 60-65%, no regional wall motion abnormalities. Grade 3 diastolic dysfunction. Sqgb-zz-[id number] mitral stenosis, mild mitral regurgitation, [id number] aortic stenosis. -Lactic acid 10.4 on admission. Receiving IV antibiotics. LA 1.9 this morning. -Hemodynamically stable, not requiring vasopressors -we will arrange for patient to see structural cardiology in our clinic upon discharge for TAVR workup and left heart catheterization. -we will hold off on initiating Aldactone and Jardiance until patient clinically stable. -continue supportive treatment and management of sepsis, community-acquired pneumonia, and seizures -progressive care per primary team -cardiology will continue follow See orders for recommended meds By: Madie Ramirez APRN, CNP, 01/26/2024, 12:24 PM FORMS DESIGNER Primary Care Physician: UNKNOWN PROVIDER Cosigned by Tal Calvin MD at 01/27/2024 7:55 PM FORMS DESIGNER S DESIGNER S DESIGNER * Spenser Leonard MD - 01/25/2024 6:52 PM CST GRAIN SPOUTER CONSULT Papito Joseph was admitted with the chief complaint of altered mental status. I was asked to see the patient and provide recommendations for management of respiratory failure, probable aspiration pneumonia, seizures, presumed cardiac arrest. HPI This patient 78 years of age with history of emphysema, he continues to smoke, history of seizures on Keppra, on chronic anticoagulation, the family do not know the reason. Today he was found less responsive by his son so 911 was called. He arrived to the emergency room and he was confused. As he was getting a head CT, he developed a seizure followed by postictal status and apparently lost his pulse requiring about 3 minutes of CPR. Head CT and CTA where essentially negative. EKG showed a rightbundle branch block but no definite evidence of acute ischemia. Troponins were mildly elevated. Chest CT show evidence of bilateral infiltrates consistent with pneumonia, possible aspiration and no significant issues in the abdomen. The patient has been hemodynamically stable. His original lactic acid was 10.4 and then decreased to 4.6. HOME MEDICATIONS: None ALLERGIES: Allergies There is no known ICA information for this patient. REVIEW OF SYSTEMS: Unable to obtain PAST MEDICAL HISTORY He has no past medical history on file. Emphysema Hypertension Chronic anticoagulation on Eliquis, family do not know why. PAST SURGICAL HISTORY: has no past surgical history on file. FAMILY HISTORY: family history is not on file. SOCIAL HISTORY : He continues to smoke Do not use alcohol PHYSICAL EXAM : He is sedated, intubated his most recent blood pressure was 94/56 Heart rate was 87 respiratory rate was 20 oxygen saturation was 100% on 80% FiO2 and peep of 8 his temperature was 96.7. HEENT pupils are about 2 mm and minimally reactive Endotracheal tube is in place OG tube is in place Neck positive for 3 cm jugular vein distention Lungs diminished breath sounds bilaterally with some rhonchi but no wheezing or rales Cardiovascular was regular non tachycardic no definite murmurs very soft S1-S2 Abdomen soft does not seems to be tender or distended Extremities shows no significant erythema or edema Neurologically the patient is sedated Skin shows no rash Musculoskeletal no evidence of joint inflammation VITALS: Patient Vitals for the past 12 hrs: BP Temp Pulse Heart Rate (Monitor) Resp SpO2 Height Weight Temp src 01/25/24 1800 94/55 -- 78 79 21 100 % -- -- -- 01/25/24 1706 -- 96.7 ??F (35.9 ??C) -- -- -- -- 5' 10 (1.778 m) 159 lb 11.2 oz (72.4 kg) Tympanic 01/25/24 1700 101/48 -- 81 82 12 100 % -- -- -- 01/25/24 1623 105/58 -- 76 76 18 98 % -- -- -- 01/25/24 1615 -- -- 74 76 22 100 % -- -- -- 01/25/24 1615 98/50 -- -- -- -- -- -- -- -- 01/25/24 1600 109/60 -- 78 78 23 100 % -- -- -- 01/25/24 1545 104/51 -- 66 67 19 100 % -- -- -- 01/25/24 1530 113/80 -- 84 75 19 100 % -- -- -- 01/25/24 1515 103/52 -- 76 76 21 100 % -- -- -- 01/25/24 1500 98/54 -- 77 78 (!) 45 100 % -- -- -- 01/25/24 1445 97/55 -- 78 79 18 97 % -- -- -- 01/25/24 1439 116/60 -- 74 74 18 92 % -- -- -- 01/25/24 1430 96/55 -- 81 80 18 97 % -- -- -- 01/25/24 1415 116/63 -- 81 82 (!) 33 97 % -- -- -- 01/25/24 1400 124/64 -- 87 85 19 93 % -- -- -- 01/25/24 1345 116/58 -- 86 87 22 92 % -- -- -- 01/25/24 1330 119/62 -- 101 95 (!) 33 (!) 80 % -- -- -- 01/25/24 1318 -- -- -- -- -- -- 5' 10 (1.778 m) 154 lb (69.9 kg) -- 01/25/24 1315 91/54 -- 98 99 22 94 % -- -- -- 01/25/24 1300 110/62 -- 101 (!) 104 25 100 % -- -- -- 01/25/24 1245 103/54 -- 103 (!) 102 26 100 % -- -- -- 01/25/24 1230 123/74 -- (!) 117 (!) 128 26 100 % -- -- -- 01/25/24 1215 119/63 -- (!) 115 (!) 115 25 100 % -- -- -- 01/25/24 1214 116/54 -- (!) 116 (!) 117 25 100 % -- -- -- 01/25/24 1200 110/54 -- (!) 112 (!) 113 26 100 % -- -- -- 01/25/24 1145 192/72 -- 100 99 17 98 % -- -- -- 01/25/24 1145 139/68 -- (!) 112 96 -- 96 % -- -- -- 01/25/24 1118 164/89 -- 90 90 18 96 % -- -- -- Temp (24hrs), Av.7 ??F (35.9 ??C), Min:96.7 ??F (35.9 ??C), Max:96.7 ??F (35.9 ??C) Weight: Wt Readings from Last 1 Encounters: 01/25/24 159 lb 11.2 oz (72.4 kg) DATA REVIEW : I have reviewed CT scans and chest x-ray CBC: Lab Results Component Value Date WBC 11.53 01/25/2024 HEMOGLOBIN 12.4 (L) 01/25/2024 PLATELETCNT 315 01/25/2024 CMP: Lab Results Component Value Date GLUCOSE 130 (H) 01/25/2024 SODIUM 142 01/25/2024 POTASSIUM 4.7 01/25/2024 CHLORIDE 105 01/25/2024 CO2VEN 18 (L) 01/25/2024 BUN 19 01/25/2024 CREATININE 1.27 01/25/2024 CALCIUM 10.0 01/25/2024 SGPTALT 16 01/25/2024 ALBUMIN 3.9 01/25/2024 ALKALINEPHO 89 01/25/2024 No results found for: CPK , CKMB , CKMBPOCT , CKMBRELINDX , TROPONINI , POCTRP Assessment/PLAN: 1. Neurologically: Patient has suffered seizure followed by postictal status. He does have a history of seizures for which he is on Keppra. Head CT was essentially negative. Will keep sedated overnight and then do sedation interruption tomorrow to evaluate his neurological status and obtain EEG. Res tart Keppra. 2. Cardiovascular: Cardiopulmonary arrest, it is not clear why he would have that. Certainly possible that his pulse was thready after the seizure on the CT scanner and I have been difficult to obtain a pulse. In any case will obtain echocardiogram tomorrow patient has significant jugular vein distention which I suspect is related to pulmonary hypertension. Patient does not look volume overloaded. History of hypertension but no heart disease according to the family 3. Respiratory: Failure due to cardiopulmonary arrest and seizures. Will continue to wean PEEP and FiO2 and optimize minute ventilation. The patient has bilateral infiltrates which might be consistent with aspiration. He was started on Zosyn in the ER showed will continue for now. Will obtain a sputum culture. History of emphysema without any evidence of COPD exacerbation at present time 4. GI: Prophylaxis with Pepcid. CT scan of the abdomen failed to show any significant abnormality. LFTs are normal 5. and renal: BUN creatinine and electrolytes are overall stable with minimal elevation of the glucose and some degree of metabolic acidosis. This will be followed. Will start him on IV fluids formaintenance tonight 6. Endocrine: No history of diabetes or thyroid disease. Will check TSH in the morning 7. Hematologically: CBC shows mild leukocytosis with anemia and normal platelet count. Will recheckCBC tomorrow 8. DVT prophylaxis: This patient has been on chronic anticoagulation on Eliquis but has not taken any of his medications today. Will start him on Lovenox tonight. Will discontinue heparin drip 9. Id: Continue with Zosyn for possible aspiration versus community-acquired pneumonia. Will add Zithromax and check MRSA PCR Pain assessment: Ongoing Advance directives reviewed and on file. Spoke with the family Spent total of 35 minutes critical care time Voice recognition software was used to dictate this note. In spite of proof reading, typographical and/or content errors might have occurred. Thank you for this consult. More recommendations will be made as appropriate based on progress during hospitalization. Spenser Demarco MD 46:53 PM FORMS DESIGNER S DESIGNER S DESIGNER documented in this encounter ED Notes * Claudia Andrews RN - 01/25/2024 4:23 PM CST Pt admitted to ICU 3. Pt accompanied to floor by this rn, religious education director, and respiratory. Pt condition remains unchanged. S DESIGNER * Claudia Andrews RN - 01/25/2024 4:00 PM CST Family remains at bedside. Pt to be admitted to icu awaiting bed assignment. S DESIGNER * Claudia Andrews RN - 01/25/2024 3:00 PM CST Pt family remains at bedside. Family was informed of pt admission. Awaiting bed assignment. Will continue to montior. S DESIGNER S DESIGNER * Claudia Andrews RN - 01/25/2024 2:00 PM CST Pts family remains at bedside. Ct results pending. Awaiting further orders S DESIGNER * Claudia Andrews RN - 01/25/2024 1:00 PM CST Pts family remains at bedside. Ct results pending. Awaiting further orders. S DESIGNER S DESIGNER * Claudia Andrews RN - 01/25/2024 12:00 PM CST Pts family is at bedside. Will continue to monitor. S DESIGNER * Ta Reyes MD - 01/25/2024 11:51 AM CSTAssociated Order(s): EKG 12 LEAD; EKG 12 LEAD; Intubation; Critical Care Chief Complaint Patient presents with Altered Mental Status Patient is a 78-year-old male with unknown past medical history but according to his medications hehas history of BPH, he is on Eliquis for some reason, he is on Keppra I will presumed for seizures who presented with altered mental status. All history comes from EMS. Apparently patient lives with a son who reports that he will last saw him normal last night and then today he found him in the garage confused noninteractive. Per EMS report his blood glucose was 97, vital signs showed hypertension. Patient was taken to CT scan per stroke protocol and per nursing report he seized, this lasted for about 2 minutes and then patient became completely unresponsive with gaze deviation to the right code was called, patient was brought back to the emergency department with CPR undergoing, at 1st pulse check we were able to palpate a pulse, he was given 1 dose of epinephrine prior to that, monitor shows tachycardia, patient was intubated uneventfully and currently is sedated. Current Facility-Administered Medications Medication Dose Route Frequency Provider Last Rate Last Admin heparin (porcine) injection 1,400-2,100 Units 20-30 Units/kg Intravenous Q6H PRN Ta Reyes MD heparin 25,000 units in 0.45 % sodium chloride 500 mL infusion 300-3,000 Units/hr Intravenous Continuous Ta Reyes MD 17 mL/hr at 01/25/24 1604 850 Units/hr at 01/25/24 1604 midazolam (VERSED) 1 mg/mL premix IV 1 mg/hr Intravenous Continuous Ta Reyes MD 100 mg at 01/25/24 1149 midazolam (VERSED) injection 5 mg 5 mg Intravenous Q1H PRN Ta Reyes MD 5 mg at 01/25/24 1304 piperacillin-tazobactam (ZOSYN) 4.5 g in sodium chloride 0.9 % 100 mL IVPB 4.5 g Intravenous Once Ta Reyes MD piperacillin-tazobactam (ZOSYN) 4.5 g in sodium chloride 0.9 % 100 mL IVPB 4.5 g Intravenous Q8H Ta Reyes MD No current outpatient medications on file. Not on File No past medical history on file. No past surgical history on file. Social History Socioeconomic History Marital status: Spouse name: Not on file Number of children: Not on file Years of education: Not on file Highest education level: Not on file Occupational History Not on file Tobacco Use Smoking status: Not on file Smokeless tobacco: Not on file Substance and Sexual Activity Alcohol use: Not on file Drug use: Not on file Sexual activity: Not on file Other Topics Concern Not on file Social History Narrative Not on file Social Drivers of Health Financial Resource Needs: Not on file Food Insecurity Needs: Not on file Transportation Needs: Not on file Physical Activity: Not on file Stress: Not on file Social Integration: Not on file Personal Safety: Not on file Housing Stability: Not on file BP 104/51 Pulse 66 Resp 19 Ht 5' 10 (1.778 m) Wt 154 lb (69.9 kg) SpO2 100% BMI 22.10 kg/m?? Review of Systems Unable to perform ROS: Acuity of condition Physical Exam Vitals and nursing note reviewed. Constitutional: Appearance: He is well-developed. Comments: Unresponsive HENT: Head: Normocephalic and atraumatic. Right Ear: External ear normal. Left Ear: External ear normal. Nose: Nose normal. Eyes: Conjunctiva/sclera: Conjunctivae normal. Comments: Gaze deviation to the right Neck: Trachea: No tracheal deviation. Cardiovascular: Rate and Rhythm: Regular rhythm. Tachycardia present. Heart sounds: Normal heart sounds. No murmur heard. Pulmonary: Comments: Lungs are clear to auscultation bilaterally, Abdominal: General: Abdomen is flat. There is no distension. Tenderness: There is no abdominal tenderness. There is no guarding. Comments: No epigastric breath sounds Musculoskeletal: General: No swelling, deformity or signs of injury. Skin: General: Skin is warm and dry. Neurological: Comments: Gaze deviation to the right EKG 12 LEAD Performed by: Ta Reyes MD Authorized by: Ta Reyes MD ECG interpreted by ED Physician in the absence of a html developer: yes Previous ECG: Previous ECG: Unavailable Interpretation: Interpretation: non-specific Quality: Tracing quality: Limited by artifact Rate: ECG rate: 108 ECG rate assessment: tachycardic Rhythm: Rhythm: sinus rhythm and sinus tachycardia Ectopy: Ectopy: none QRS: QRS axis: Normal QRS intervals: Wide QRS conduction: non-specific conduction delay ST segments: ST segments: Non-specific Q waves: Abnormal Q-waves: present Q waves: AVL EKG 12 LEAD Performed by: Ta Reyes MD Authorized by: Ta Reyes MD ECG interpreted by ED Physician in the absence of a html developer: yes Previous ECG: Previous ECG: Compared to current Similarity: No change Interpretation: Interpretation: non-specific Rate: ECG rate: 77 ECG rate assessment: normal Rhythm: Rhythm: sinus rhythm Ectopy: Ectopy: none QRS: QRS axis: Normal QRS intervals: Wide QRS conduction: RBBB ST segments: ST segments: Non-specific T waves: T waves: inverted Inverted: V2 and V3 Q waves: Abnormal Q-waves: present Q waves: AVL Intubation Performed by: Ta Reyes MD Authorized by: Ta Reyes MD Consent: The procedure was performed in an emergent [...] the procedure well with no immediate complications Critical Care Performed by: Ta Reyes MD Authorized by: Ta Reyes MD Critical care provider statement: Critical care time (minutes): 150 Critical care was necessary to treat or prevent imminent or life-threatening deterioration of the following conditions: Cardiac failure, respiratory failure and shock Recent Results (from the past 24 hours) POCT Glucose Collection Time: 01/25/24 11:24 AM Result Value Ref Range GLUCOSE,BEDSIDE POCT 99 70 - 99 mg/dL POCT Creatinine Collection Time: 01/25/24 11:35 AM Result Value Ref Range CREATININE - POCT 1.0 0.6 - 1.3 mg/dL POCT Glucose Collection Time: 01/25/24 11:48 AM Result Value Ref Range GLUCOSE,BEDSIDE POCT 119 (H) 70 - 99 mg/dL Blood Gases, Arterial w/ O2 Saturation Collection Time: 01/25/24 11:54 AM Result Value Ref Range O2 STATUS just bagged 95% PH ARTERIAL 7.03 (LL) 7.35 - 7.45 PC02 (ARTERIAL) 74 (HH) 35 - 45 mmHg PO2 (ARTERIAL) 292 (H) 75 - 100 mmHg O2 SAT ART, MEASURED 99 94 - 100 % BASE ARTERIAL -11.7 (L) -2.0 - 2.0 mmol/L BICARBONATE 19.5 (L) 22.0 - 26.0 mmol/L WANDA'S TEST RESULTS Positive - Right Radial CARBOXYHEMOGLOBIN 2.3 0.0 - 5.0 % METHEMOGLOBIN 0.4 0.0 - 1.5 % APTT (PTT) Collection Time: 01/25/24 12:01 PM Result Value Ref Range PTT 28 24 - 36 sec PT (PROTHROMBIN TIME) Collection Time: 01/25/24 12:01 PM Result Value Ref Range PROTIME-PATIENT 15.1 (H) 11.6 - 14.8 sec INR 1.2 0.9 - 1.2 CBC with Auto Differential Collection Time: 01/25/24 12:01 PM Result Value Ref Range WBC 11.53 4.00 - 12.00 10(3)/mcL RBC 4.25 (L) 4.40 - 5.80 10(6)/mcL HEMOGLOBIN (HGB) 12.4 (L) 13.0 - 16.5 g/dL HEMATOCRIT (HCT) 41.1 38.0 - 50.0 % MCV 96.7 (H) 82.0 - 96.0 fL MCH 29.2 26.0 - 32.0 pg MCHC 30.2 (L) 31.0 - 36.0 g/dL PLATELET COUNT 315 140 - 440 10(3)/mcL RDW 16.0 (H) 11.8 - 15.5 % MPV 11.9 8.0 - 12.6 fL NEUTROPHILS 49.6 40.0 - 68.0 % LYMPHOCYTES 38.2 19.0 - 49.0 % MONOCYTES 9.8 3.0 - 13.0 % EOSINOPHILS 1.7 0.0 - 8.0 % BASOPHILS 0.7 0.0 - 1.0 % ABSOLUTE NEUTROPHILS 5.72 (H) 1.40 - 5.30 10(3)/mcL ABSOLUTE LYMPHOCYTES 4.40 (H) 0.90 - 3.30 10(3)/mcL ABSOLUTE MONOCYTES 1.13 (H) 0.10 - 0.90 10(3)/mcL ABSOLUTE EOSINOPHIL 0.20 0.00 - 0.50 10(3)/mcL ABSOLUTE BASOPHILS 0.08 0.00 - 0.10 10(3)/mcL NRBC PER 100 WBC 1 CMP Collection Time: 01/25/24 12:01 PM Result Value Ref Range SODIUM 142 136 - 145 mmol/L POTASSIUM 4.7 3.5 - 5.1 mmol/L CHLORIDE 105 98 - 107 mmol/L CO2, VENOUS 18 (L) 22 - 30 mmol/L ANION GAP 23.7 (H) <18.0 mmol/L GLUCOSE 130 (H) 70 - 99 mg/dL BUN 19 8 - 26 mg/dL CREATININE, BLOOD 1.27 0.70 - 1.30 mg/dL BUN/CREATININE RATIO 15 12 - 20 ratio TOTAL PROTEIN 7.7 6.3 - 8.2 g/dL ALBUMIN 3.9 3.5 - 5.0 g/dL A/G RATIO 1.0 1.0 - 2.2 CALCIUM 10.0 8.7 - 10.5 mg/dL T BILI 0.5 0.2 - 1.2 mg/dL SGOT (AST) 18 5 - 34 U/L SGPT (ALT) 16 0 - 55 U/L ALKALINE PHOSPHATASE 89 40 - 150 U/L GFR, ESTIMATED 57 (L) >=60 GFR, EST. >60 >=60 GFR, EST. NONAFRICAN 55 (L) >=60 Magnesium Collection Time: 01/25/24 12:01 PM Result Value Ref Range MAGNESIUM 2.3 1.6 - 2.6 mg/dL TROPONIN I, HIGH SENSITIVITY (HSTRP) Collection Time: 01/25/24 12:01 PM Result Value Ref Range TROPONIN I, HIGH SENSITIVITY- JALLOH 12 <=35 ng/L Lactic Acid (Lactate) Collection Time: 01/25/24 12:09 PM Result Value Ref Range LACTIC ACID 10.4 (HH) 0.7 - 2.0 mmol/L TYPE & SCREEN (CROSSMATCH CONVERTIBLE) Collection Time: 01/25/24 12:09 PM Result Value Ref Range ABO TYPING O RH Positive ABSC Negative ZAINAB-COV-2 Flu RSV - (Quad PCR) Collection Time: 01/25/24 12:10 PM Specimen: Nasal; Swab Result Value Ref Range FLU A Negative Negative, Error FLU B Negative Negative RESP SYNC VIRUS Negative Negative SARSCOV2 NOT DETECTED (Reference Range for this test is Not Detected) Blood Gases, Arterial w/ O2 Saturation Collection Time: 01/25/24 12:55 PM Result Value Ref Range O2 STATUS fio2 100 rr 18 vt 450 peep 4 PH ARTERIAL 7.24 (L) 7.35 - 7.45 PC02 (ARTERIAL) 53 (H) 35 - 45 mmHg PO2 (ARTERIAL) 386 (H) 75 - 100 mmHg O2 SAT ART, MEASURED 99 94 - 100 % BASE ARTERIAL -3.9 (L) -2.0 - 2.0 mmol/L BICARBONATE 23.1 22.0 - 26.0 mmol/L WANDA'S TEST RESULTS Positive - Right Radial CARBOXYHEMOGLOBIN 2.2 0.0 - 5.0 % METHEMOGLOBIN 0.5 0.0 - 1.5 % TROPONIN I, HIGH SENSITIVITY (HSTRP) Collection Time: 01/25/24 1:30 PM Result Value Ref Range TROPONIN I, HIGH SENSITIVITY- JALLOH 61 (H) <=35 ng/L Lactic Acid (Lactate) Collection Time: 01/25/24 1:30 PM Result Value Ref Range LACTIC ACID 4.6 (HH) 0.7 - 2.0 mmol/L Urinalysis w/ Reflex Collection Time: 01/25/24 1:31 PM Result Value Ref Range SPECIFIC GRAVITY 1.010 1.003 - 1.030 URINE PH 5.0 5.0 - 9.0 WBC ESTERASE 500 /uL (A) Negative NITRITE Negative Negative PROTEIN, RANDOM URINE 30 mg/dL (A) Negative URINE GLUCOSE, QUAL Negative Negative URINE KETONES Negative Negative UROBILINOGEN Normal Normal mg/dL URINE BLOOD 150 /uL (A) Negative rosalinda/ul URINALYSIS COLOR Yellow URINALYSIS CLARITY Slightly Cloudy WBC (Urine) 11-20 (A) Negative, 0-5 /hpf URINE RBC'S 0-2 Negative, 0-2 /hpf EPITHELIAL CELLS Small amount /lpf BACTERIA, URINE Few (A) Negative /hpf Urine Drug Screen Collection Time: 01/25/24 1:31 PM Result Value Ref Range UR AMPHETAMINE NON DETECTED NON DETECTED UR BENZODIAZEPINES DETECTED (A) NON DETECTED UR COCAINE METABOLITE NON DETECTED NON DETECTED UR OPIATES NON DETECTED NON DETECTED UR PHENCYCLIDINE NON DETECTED NON DETECTED UR CANNABINOID NON DETECTED NON DETECTED UR BARBITURATE NON DETECTED NON DETECTED UR FENTANYL NON DETECTED NON DETECTED Blood Gases, Arterial w/ O2 Saturation [id number] Collection Time: 01/25/24 2:02 PM Result Value Ref Range O2 STATUS . PH ARTERIAL 7.34 (L) 7.35 - 7.45 PC02 (ARTERIAL) 48 (H) 35 - 45 mmHg PO2 (ARTERIAL) 62 (L) 75 - 100 mmHg O2 SAT ART, MEASURED 86 (L) 94 - 100 % BASE ARTERIAL 0.7 -2.0 - 2.0 mmol/L BICARBONATE 26.2 (H) 22.0 - 26.0 mmol/L CARBOXYHEMOGLOBIN 2.2 0.0 - 5.0 % METHEMOGLOBIN 0.3 0.0 - 1.5 % TROPONIN I, HIGH SENSITIVITY (HSTRP) Collection Time: 01/25/24 3:28 PM Result Value Ref Range TROPONIN I, HIGH SENSITIVITY- JALLOH 108 (H) <=35 ng/L PTT (Partial Thromboplastin Time) - baseline Collection Time: 01/25/24 3:37 PM Result Value Ref Range PTT 28 24 - [address] CHEST, ABDOMEN, PELVIS WITHOUT CONTRAST (Final result) Result time 01/25/24 15:34:59 Final result by Pa Ovalles MD (01/25/24 15:34:59) Impression: IMPRESSION: Large amount of debris in the left mainstem bronchus extending into the other bronchi in the left lung. Severe emphysema. Patchy consolidation at both lung bases, worse on the left. Pneumonia is a definite consideration. Small bilateral pleural effusions, cause unknown. Severe atherosclerosis. Narrative: EXAM DESCRIPTION: CT CHEST, ABDOMEN, PELVIS WITHOUT [...] No stones. No hydronephrosis or hydroureter. A Blankenship catheter is seen in the bladder. [...] Rafa Ovalles M.D. VONNIE: VONNIE Report ID: [id number] Reading Location: [id number] CTA STROKE HEAD AND NECK (Final result) Result time 01/25/24 13:56:56 Final result by Chris Tran MD (01/25/24 13:56:56) Impression: IMPRESSION: CAROTID CTA: No carotid or vertebral stenosis. INTRACRANIAL CTA: Normal. Narrative: EXAM DESCRIPTION: CTA STROKE HEAD AND NECK [...] OTHER: No other significant finding. INTRACRANIAL VESSELS: [place] OF STOUT: The anterior, middle, posterior cerebral arteries are all patent. No evidence of aneurysm or focal stenosis. POSTERIOR CIRCULATION: The distal vertebral arteries are patent as is the basilar artery. No aneurysm. BRAIN: No gross enhancing lesions as visualized. THIS IS AN ELECTRONICALLY VERIFIED FINAL REPORT 01/25/2024 1:54 PM - Electronically signed by Chris Tran M.D. RB: GILES Report ID: [id number] Reading Location: [id number] CT HEAD OR BRAIN WO CONTRAST (Final result) Result time 01/25/24 13:26:00 Final result by Edgar Lema MD (01/25/24 13:26:00) Impression: IMPRESSION: No acute intracranial abnormality. Narrative: EXAM DESCRIPTION: CT HEAD OR BRAIN WO [...] Edgar Lema M.D. SN: SN Report ID: [id number] Reading Location: [id number] XR CHEST SINGLE VIEW PORTABLE (Final result) Result time 01/25/24 13:06:55 Final result by Humera Jaquez MD (01/25/24 13:06:55) Impression: IMPRESSION: 1. Endotracheal tube in place. Distal tip is approximately 4 cm above the level of the rolando. Nasogastric tube is visualized coursing into the upper abdomen distal tip overlies the epigastric region. 2. Diffuse interstitial prominence within both lungs, with patchy opacities in the bases. Small effusions. 3. There are air-filled somewhat dilated loops of bowel suggested within the upper abdomen as well as some subtle lucency in the right upper quadrant, which is limited in assessment on this study. This may reflect artifact overlying the patient. The potential for free air can not be excluded. Correlate with clinical exam findings. Abdominal radiographs and or CT abdomen/pelvis recommended for further assessment. Findings were conveyed to MELVIN Yi via phone call at 1:01 p.m. on 01/25/2024 Narrative: EXAM DESCRIPTION: XR CHEST SINGLE VIEW PORTABLE REASON FOR STUDY: cardiac arrest. NG tube, OG tube placement TECHNIQUE: AP radiographic view(s) of the chest. COMPARISON: None FINDINGS: LUNGS: There are diffuse interstitial opacities present within both lungs as well as a few areas of patchy airspace opacity most evident in the bases. Small effusions noted, right greater than left. No appreciable pneumothorax. HEART/MEDIASTINUM: Cardiac silhouette is at the upper limits of normal in size. Pulmonary vascularity is enlarged. Atherosclerotic calcification of the thoracic aorta. LINES/TUBES: Endotracheal tube is in place. Distal tip appears approximately 4 cm above the level of the rolando. Nasogastric tube is visualized coursing into the upper abdomen. BONES: No acute osseous abnormality. Other: There are air-filled loops of bowel within the upper abdomen, few of which appear distended. There is some lucency projecting in the right upper quadrant not definitively within bowel. This could reflect artifact superimposed over the patient. Free air can not be excluded on this examination. Abdominal radiograph and or abdominal CT recommended for further evaluation. THIS IS AN ELECTRONICALLY VERIFIED FINAL REPORT 01/25/2024 1:04 PM - Electronically signed by Humera Jaquez M.D. TW: BETTY Report ID: [id number] Reading Location: [id number] CT STROKE HEAD WO CONTRAST (Final result) Result time 01/25/24 11:38:40 Final result by Edgar Lema MD (01/25/24 11:38:40) Impression: IMPRESSION: No acute intracranial abnormality. Results called to ordering provider at the time of image interpretation. Narrative: EXAM DESCRIPTION: CT STROKE HEAD WO CONTRAST [...] Edgar Lema M.D. SN: SN Report ID: [id number] Reading Location: [id number] Medical Decision Making Clinical Impression 1. Cardiopulmonary arrest with successful resuscitation (HCC) 2. Seizure (HCC) 3. Acute respiratory failure with hypoxia and hypercapnia (HCC) 4. Pneumonia due to infectious organism, unspecified laterality, unspecified part of lung 5. Altered mental status Disposition: Admit ED Course as of 01/25/24 1606 Sun Jan 25, 2024 1201 Discussed with family, they report patient has a history of mini strokes they are not reallysure why he is on Eliquis or Keppra. They state that patient appeared like he was trying to say something while he was pain taken away by the ambulance but could not do so so this increase his concern for a CVA. His initial blood pressure was reading elevated although this was over his clothes, family states that his blood pressure is usually normal, currently 110/54 so hypertensive emergency is unlikely and that was likely an erroneous pressure. Patient will be taken back to CT emergently to get another CT of the head rule out intracranial hemorrhage and if that is unremarkable get a CTA of the head and neck [DK] 1203 CT STROKE HEAD WO CONTRAST IMPRESSION: No acute intracranial abnormality. [DK] 1315 XR CHEST SINGLE VIEW PORTABLE IMPRESSION: 1. Endotracheal tube in place. Distal tip is approximately 4 cm above the level of the rolando. Nasogastric tube is visualized coursing into the upper abdomen distal tip overlies the epigastric region. 2. Diffuse interstitial prominence within both lungs, with patchy opacities in the bases. Small effusions. 3. There are air-filled somewhat dilated loops of bowel suggested within the upper abdomen as well as some subtle lucency in the right upper quadrant, which is limited in assessment on this study. This may reflect artifact overlying the patient. The potential for free air can not be excluded. Correlate with clinical exam findings. Abdominal radiographs and or CT abdomen/pelvis recommended for further assessment. CT of the chest abdomen and pelvis ordered [DK] 1321 PO2 (ARTERIAL)(!): 386 will wean down oxygen [DK] 1334 CT HEAD OR BRAIN WO CONTRAST IMPRESSION: No acute intracranial abnormality. [DK] 1334 Gaze deviation is no longer evident, pupils are equal and reactive bilaterally. Patient is moving all extremities. Will continue Versed drip. Differential diagnosis includes CVA versus seizure with the rest, cardiac etiology is less likely we will continue to trend cardiac enzymes. Patient cont inues to be stable. [DK] 1343 Monitor showed hypoxia, O2 sats 77%. Good waveform. O2 was set at 35%, increased back to 100%,O2 sats 91 currently, bilateral breath sounds auscultated, [DK] 1400 Further vent adjustments made, tidal volume increased to 500 cc, peep increased to 8, satting 93% now. Waiting for CT rates, still waiting for patient to go to CT scan for chest abdomen and pelvis. Bilateral breath sounds. [DK] 1428 CTA STROKE HEAD AND NECK IMPRESSION: CAROTID CTA: No carotid or vertebral stenosis. INTRACRANIAL CTA: Normal. [DK] 1439 Discussed with housing and residence life director who will consult on the patient. Discussed with neurology who will consult on the patient. CT shows pulmonary vascular congestion, pulmonary edema, pleural effusions, likely secondary to cardiac arrest. This is likely the etiology behind his hypoxia, however he has no longer hypoxic and is oxygenating well on current settings. Will continue to closely monitor. Final CT of the chest abdomen and pelvis read pending. Will repeat another EKG. [DK] 1516 TROPONIN I, HIGH SENSITIVITY- JALLOH(!): 61 Troponin elevation noted, likely secondary to cardiac arrest, we will continue to trend troponins. EKG shows right bundle-branch block, T-wave inversions in V2 and V3 but that is expected with a bundle-branch block, no other acute findings. Will continue to closely monitor. Will discuss with Cardiology. [DK] [address] Carpenter cardiology, will start patient on heparin drip, no indication for immediate intervention at this time. Will continue to trend cardiac enzymes. [DK] 1520 Patient is on Eliquis but he did not take Eliquis today so he will be started on heparin drip.[DK] 1544 CT CHEST, ABDOMEN, PELVIS WITHOUT CONTRAST IMPRESSION: Large amount of debris in the left mainstem bronchus extending into the other bronchi in the left lung. Severe emphysema. Patchy consolidation at both lung bases, worse on the left. Pneumonia is a definite consideration. Small bilateral pleural effusions, cause unknown. Severe atherosclerosis. [DK] 1546 Paging hospitalist [DK] 1602 Discussed with hospitalist who accepts patient for admission. [DK] ED Course User Index [DK] Ta Reyes MD S DESIGNER * Claudia Andrews RN - 01/25/2024 11:35 AM CST Pt was on ct table when he began to have seizure activity. Pt was rolled onto his side, transferredfrom ct table to [facility]. Pt then had decorticate posturing and went into cardiac arrest. CPR initiated immediately S DESIGNER S DESIGNER * Isabel Arciniega - 01/25/2024 11:18 AM CST Bed: [place] [id number] Expected date: 01/25/24 Expected time: 11:14 AM Means of arrival: Ambulance (AFD ) Comments: AFD 78M AMS DOES NOT FOLLOW COMMANDS S DESIGNER * Claudia Andrews RN - 01/25/2024 11:18 AM CST Pt to stat ct S DESIGNER documented in this encounter Miscellaneous Notes * Interdisciplinary - Marcelo Denise RN - 02/09/2024 6:35 PM CST SL removed. Patient dressed and ready to be discharged. Discharge instructions reviewed with patient and patient verbalized understanding. Patient taken by wheel chair to the door with belongings. Report called to SABRINA Ramírez at [facility]. All discharge paperwork given to patient's [facility] facility S DESIGNER * Plan of Care - Marcelo Denies RN - 02/09/2024 3:37 PM CST Problem: Adult Inpatient Plan of Care Goal: Plan of Care Review Outcome: Outcome Achieved Goal: Optimal Comfort and Wellbeing Outcome: Outcome Achieved Goal: Readiness for Transition of Care Outcome: Outcome Achieved Problem: Skin Injury Risk Increased Goal: Skin Health and Integrity Outcome: Outcome Achieved Problem: Fall Injury Risk Goal: Absence of Fall and Fall-Related Injury Outcome: Outcome Achieved Problem: Functional Deficit Goal: Improved Balance and Postural Control Outcome: Outcome Achieved Goal: Optimal Cognitive Function Outcome: Outcome Achieved Goal: Optimal Coordination Outcome: Outcome Achieved Goal: Improved Muscle Strength Outcome: Outcome Achieved Goal: Improved Muscle Tone Outcome: Outcome Achieved Goal: Optimal Range of Motion Outcome: Outcome Achieved Goal: Compensation for Sensory Deficit Outcome: Outcome Achieved Problem: Confusion Acute Goal: Optimal Cognitive Function Outcome: Outcome Achieved Problem: Violence Risk or Actual Goal: Anger and Impulse Control Outcome: Outcome Achieved S DESIGNER * Zheng - Anastasiia Browne RN - 02/09/2024 2:47 PM CST Case Management Discharge Readiness Note Papito???s readmission risk level (if calculated) is: 2-Medium Low Patient Class: Inpatient Consecutive Inpatient Midnights 15 Actual day(s) of hospital stay (compare to working DRG): 15 (See Clinical Product Specialist Note for further detail) Additional Information regarding DC Plan: Patient is discharging to [facility] @ 1830 Notifications of Discharge Plan: Information for bedside nurse to call report and fax PACT Document in Sticky Note? Yes Nursing notified: YES SABRINA Cruz via [place] Decision Maker / Caregiver Information Decision Maker: Patient is assumed to be the medical decision maker Telephoto Installer/Surgery Teacher Name: Marvin Joseph Patient/ Decision Maker and family notified: Papito and ashley Wong Pre-Admission Screen & [place] State Background Check Information IM Letter Documentation, if applicable Medicare Notice Given to Responsible Democrat: Yes, in person Date Form Given to Patient/Responsible Democrat: 02/09/24 S DESIGNER * Dayana Reeves - 02/09/2024 2:36 PM CST Clinical Product Specialist - Transition Arrangements Coordinated Note - Transition Specialists do not coordinate all transitions or aspects of transitions- CONFIRM PATIENT READINESS WITH SURGICAL SCHEDULER PRIOR TO DISCHARGE Demand Inspector notified: yes, notified CM Anastasiia at the following time 1436 via in person. Additional Details of Discharge Plan: DC via family car to [facility] discharge The following person at the receiving facility was notified of this patient's discharge:yes, notified Toyin at the following time 1435 via phone. Primary Medical Coverage: Medicare Part A Secondary Medical Coverage: N/A Discharge Level of Care:Inpatient Rehabilitation Facility [IRF] Prior authorization NOT required (primary payor is either: Medicare A or Medicare Railroad & facility did not require secondary payor prior authorization). Patient will be discharged on 02/09/24 at 1830 by Family car to [facility] Transportation will be per facility vehicle or personal vehicle DISCHARGING BEDSIDE NURSE: - Prior to discharge, please call nurse to nurse report to the following phone number: [phone] - Prior to discharge, please fax the Post Acute Care Transition (PACT) document to the following fax number: [phone]. - is accepting. S DESIGNER * Interdisciplinary - Dayana Wood - 02/09/2024 2:36 PM CST Clinical Product Specialist Coordination Note SUMMARY - Clinical Product Specialist currently working the potential transition plan(s): 02/02/2024 @ 2:52 PM FORMS DESIGNER (KEAGAN, DENIS) Inpatient Rehabilitation Facility [IRF] (See detail within the referral type(s) below for information on what is needed to complete coordination Note - the Transition Specialists do not coordinate all transition types - please direct all question regarding hospital transition to the Demand Inspector) Readmission risk level (if calculated) is: 2-Medium Low Primary Care Provider: PCP: UNKNOWN PROVIDER Primary Medical Coverage: Medicare Part A Secondary Medical Coverage: N/A Hospital Follow-Up appointment(s) scheduling status: N/A - Currently anticipating facility / non-community discharge Inpatient Rehabilitation Facility [IRF] Prior Authorization Required? prior authorization NOT required (primary payor is either: Medicare A, Medicare Railroad, or traditional Medicaid) Needed Clarification/ Information / Documentation to complete IRF coordination: none [facility] - New Referral - ACCEPTED & SELECTED Required COVID testing: None required Contact or Liaison Name: Shelby Contact phone: [phone] Facility has Bette Garland 02/09/2024 @ 2:35 PM FORMS DESIGNER ([facility], ) Notified Toyin that pts son will transport pt at 1830. Provided RN stations phone number. 02/09/2024 @ 12:15 PM FORMS DESIGNER ([facility], ) Spoke with Toyin who stated she spoke with her MD and pt is ok to admit after it has been 24h from last IV Lasix drip. So she said pt can admit after 1800 today. Informed KYLE Laurent via secure chat 02/09/2024 @ 10:28 AM FORMS DESIGNER ([facility], ) Spoke with Toyin who stated pt had IV lasix at 1807 yesterday and pts have to be off IV diuretics for 24h before they can admit. She is going to talk to her MD about possibly having pt admit later today, but it will likely be tomorrow to ensure no more diuretics are required. Informed KYLE Laurent via secure chat 02/09/2024 @ 10:02 AM FORMS DESIGNER ([facility], ) Notified Toyin that pt is ready for discharge and asked if she can take a look at him to see if he is good on their end. 02/06/2024 @ 1:42 PM FORMS DESIGNER ([facility], ) Informed Shelby that KUB shows a possible small bowel obstruction. Dr Montiel is aware. 02/06/2024 @ 11:29 AM FORMS DESIGNER ([facility], ) Per Shelby, they are requesting Doc to Doc phone call. Dr Dooley at [phone]. Informed KYLE Laurent and MD via secure chat 02/06/2024 @ 11:05 AM FORMS DESIGNER ([facility], ) Response from RN stating pt has not yet had a BM provider is aware. Med given. Informed Shelby of situation and will provide updates as they come. KYLE Laurent is aware 02/06/2024 @ 10:56 AM FORMS DESIGNER ([facility], ) Spoke with Shelby, she stated pt is looking much better today and can come once he has a bowel movement or a KUB stating no obstruction. Secure chat to RN asking when pts last BM was. 02/05/2024 @ 2:03 PM FORMS DESIGNER ([facility], ) Verified with RN, pt is now having hallucinations and talking tosomeone named Chiki and seeing a little boy. Confirmed with Shelby they cannot take pt while he is having hallucinations. I did inform her pt is very sleep deprived, only getting an hour or two of sleep a night. KYLE Laurent aware 02/05/2024 @ 12:03 PM FORMS DESIGNER ([facility], ) Spoke with Shelby and let her know speech and OT notes are charted for review. 02/03/2024 @ 1:55 PM FORMS DESIGNER ([facility], ) Spoke with Toyin who stated pt looks ok, but she will not be ableto get a final answer until pt is a bit more stable. Did let her know his diet has been advanced. We will touch base again in a day or two. KYLE Newman notified in person 02/03/2024 @ 9:00 AM FORMS DESIGNER ([facility], ) Spoke with Toyin who stated they are verifying pts insurance benefits. Referral still pending at this time. 02/03/2024 @ 8:48 AM FORMS DESIGNER ([facility], ) Left message for Toyin asking for referral update. 02/02/2024 @ 2:52 PM FORMS DESIGNER ([facility], ) Notified Shelby of referral via [employer] message 02/02/2024 @ 2:53 PM FORMS DESIGNER ([facility], ) Referral sent via [employer] S DESIGNER S DESIGNER S DESIGNER S DESIGNER * Plan of Care - Deny Stokes, MS [facility]-BUSINESS TECHNOLOGY TEACHER - 02/09/2024 12:21 PM FORMS DESIGNER Speech-Language Pathology: Dysphagia Treatment Completed: 02/09/2024 Recommendations: Diet Solids Recommendation: IDDSI 5/Moist and Minced Diet Liquids Recommendations: IDDSI 2/Mildly thick liquids/[place] thick Recommended Form of Meds: Crush, In puree Feeding Guidelines: Upright for all oral intake Slow rate of intake Cue patient for additional swallow, throat clear and effortful swallow Aggressive oral care Instrumental assessment : not recommended at this time Patient would benefit from: continued skilled intervention and patient/family education Assessment: Patient presented with continued evidence of dysphagia this date and demonstrated fair minus progress toward roman catholic of oral nutrition/hydration with optimal safety, adequacy and enjoyment. Targeted education visit due to patient's change in mentation. Patient is at elevated risk for adverse effects related to dysphagia/aspiration and continued skilled intervention is warranted at this time. The prognosis for the patient to meet nutritional needs by mouth is fair. based on degree of impairment, stimulability for treatment, baseline medical condition. Strongest to weakest predictors of aspiration pneumonia exhibited by this patient are Dependence for feeding, Dependence for oral care, Number of decayed teeth, More than one medical diagnosis, Number of medication prescribed, Current smoker, Xerostomia (dry mouth), Reduced activity level, Aspiration of food/liquid, and GERD(Langcarlota et al). Silent aspiration cannot be excluded clinically. If concern for silent aspiration, please refer formodified barium swallow study. Subjective: Physician reported family had brought non-recommended liquids (thin liquids and regular diet) for patient to consume. Patient had decline in status due to probable aspiration and patient removal of nasal cannula. Upon arrival to room, patient exhibited increased irritation and confusion. No family present. Treatment: For improved awareness, patient answered simple orientation questions when provided with max assistwith 60% accuracy. Patient attempted to mask errors with BUSINESS TECHNOLOGY TEACHER. Clinician provided skilled instruction to patient on orientation information and location/use of external aids. Patient denied understanding and recall of modified barium swallow study and dysphagia intervention. BUSINESS TECHNOLOGY TEACHER provided skilled instruction to patient regarding rationale for skilled services, therapy performance, silent aspiration, recommendations for modified diet/liquids, recommended feeding guidelines. BUSINESS TECHNOLOGY TEACHER provided patient with written instruction and diagrams for improved comprehension. BUSINESS TECHNOLOGY TEACHER answered patient questions until he expressed satisfaction and provided ability to recall information withat least 50%. No family present for educaiton. Education: BUSINESS TECHNOLOGY TEACHER provided skilled verbal instruction to patient regarding therapy performance, compensatory strategies and/or precautions, and recommended guidelines. Patient did stated understanding Alerted nursing to evaluation performance and recommendations for care. Sign posted at bedside withfeeding guidelines with patient permission. Patient remained in recliner with call light near. If this is the last Speech Therapy visit, please refer to this note as the discharge summary. Thank you for your referral. DENY STOKES MS [facility]-BUSINESS TECHNOLOGY TEACHER Speech Language Pathologist 02/09/2024 Visit Timing/Type Start Time: 1145 Stop Time: 1211 Time Calculation (min): 26 min Time Calculation Comment: SFT BUSINESS TECHNOLOGY TEACHER Received On: 01/29/24 Type of visit: Treatment Treatment type for BilMin: TX Swallow/ Oral Dysfucnt (eg Dysphag) Swallow/Oral Function Treatment Time Entry: 26 BUSINESS TECHNOLOGY TEACHER Frequency: 5 sessions a week Speech Therapy Plan of Care Patient to be seen by Speech Therapy 4-5x/week to address impairments and functional limitations. Treatments to include:education and facilitation of compensatory strategies Preferred Language: Cymraes Goals to be achieved by: discharge Precautions: falls,safety, full code - BUSINESS TECHNOLOGY TEACHER to provide skilled instruction to patient/family/staff regarding recommendations, precautionsand strategies for improved health literacy, safety and discharge planning. - Patient to consume clinician led oral intake trials to determine candidacy for consistent oral intake. - Patient to consume consistent modified diet/liquid textures without evidence of associated adverse effects related dysphagia/aspiration - Completed MODIFIED BARIUM SWALLOW STUDY for comprehensive exam of swallow physiology and determine further intervention needs. GOAL MET - Mu-Ism of oral nutrition/hydration with optimal safety, adequacy and enjoyment. S DESIGNER * Plan of Care - Mariam Ledezma OT - 02/09/2024 10:46 AM CST Activity Recommendations: Recommendations for floor staff include transfer to recliner from EOB with moderate assist x 1. Activity recommendations communicated with RN and on white board. Discharge Recommendations: From a therapy perspective, at the time of discharge it appears that patient would benefit from acute rehab due to decreased independence with ADL and transfers. Therapist discussed this recommendation with patient and RN. DME recommendations include:w/walker Assessment: Significant occupational therapist findings with this patient include Weakness, Decreased endurance, Decreased strength, Decreased range of motion, Decreased cognition, Impaired balance, Impaired coordination, and Decreased cardiopulmonary endurance that leads to functional limitations including dec reased ability to transfer to recliner. This represents a functional decline that requires acute OT intervention. Patient will benefit fromoccupational therapy to address these deficits during their hospitalization. Strengths of this patient include Family support, Good participation/motivation, and Independent prior to admission. Anticipate patient will progress toward stated goals with therapeutic intervention. OT Plan of Care Date of Initial Evaluation: 01/30/24 Patient to be seen by Occupational Therapy 3 to 4 x/week to address impairments and functional limitations. Treatments to include: Self care retraining, Balance training, Cognition, Therapeutic activities, Endurance training, Mobility/Transfers, Safety, and Therapeutic exercise Precautions: Fall, Monitor Vitals, and safety Goals to be achieved by: 02/15/23 Goals updated on 02/09/24 - Patient will perform bed mobility with minimal assist to be able to assist with positioning.(Progressing 02/09/24 MKK) - Patient will perform self care transfers chair and commode with minimal assist to decrease burdenof caregiver assist. (Progressing 02/09/24 MKK) - Patient will demo G balance for toileting tasks. (Ongoing 02/09/24 MKK) - Patient will participate in therapeutic exercise to increase bilateral upper extremity strength and activity tolerance. (Initiated 02/09/24 MKK) - Patient will participate in fine and gross motor activities to improve motor planning skills in bilateral upper extremity for dressing. - Patient will improve AM-PAC score to be greater than or equal to 20 points to indicate improved overall daily function. Patient stated goal: unable to state Preferred Language Cymraes OT TREATMENT NOTE Subjective: Do I have to do it right now? Observations: Patient was seen supine in bed with HOB elevated. Medical equipment includes: continuous pulse ox, tele, and BP cuff intact. Blankenship intact. O2 3L: 100% (at rest), decreased to 85% with transfer on 3L and improved to 95% after transfer. Pain: Location: chest (0-10) Pain Rating: Rest: (Patient did not rate.) (0-10) Pain Rating: Activity: (Patient did not rate.) Treatment: Bed Mobility: ? Supine to Sit: Moderate assist with Set up, Verbal Cues, and 1 person using Bed Rails and Head ofBed Elevated . Bed Mobility Details: Patient required assist for elevation of trunk when completing supine to sit. Transfers: ? Sit to Stand transfer with Moderate assist and Set up, Verbal Cues, and 1 person using Gait belt. ? Stand to Sit transfer with Moderate assist and Set up, Verbal Cues, and 1 person using Gait belt. ? Stand/Pivot transfer with Moderate assist and Set up, Verbal Cues, and 1 person using Gait belt. Transfer Details: Patient completed sit>stand from EOB, stand pivot towards chair, and stand>sit to chair with moderate assist x 1. Patient demonstrates impaired balance and endurance with task. Therex: To increase BUE endurance and maintain joint integrity and mobility, patient participated in BUE AROM exercises while supine in bed with HOB elevated. Patient completed 10 reps x 1 set of each of thefollowing through available ROM: shoulder elevation/depression, shoulder flexion/extension, shoulder internal/external rotation, elbow flexion/extension, forearm pronation/supination, wrist flexion/extension, and digit flexion/extension. Patient did require intermittent cues for optimal completion of digit flexion/extension, as well as tactile cues for wrist flexion/extension. Education Provided: Benefits of OT, ROM execises, benefits of OOB Patient demonstrates progress towards goals as evidenced by willingness to participate in UB ROM exercises and OOB activity. Outcome Measure: [facility]-PAC 6 Clicks Daily Activity How much help from another person does the patient currently need ??? 1.Putting on and taking off lower body clothing? 2 A Lot 2. Bathing (including washing, rinsing, drying?) 2 A Lot 3. Toileting, which includes using toilet, bedpan or urinal? 2 A Lot 4. Putting on and taking off regular upper body clothing? 3 A Little 5. Taking care of personal grooming such as brushing teeth? 3 A Little 6. Eating meals? 4 None Raw Score 16 18 or Less= predictive of discharge to institutional setting 19-24 predictive of discharge to home actual discharge disposition may be impacted by other factors lennox Farias. Association of A-PAC ???6 Clicks?? Basic Mobility and Daily Activity Scores with Discharge Destination. PTJ. March 2020 Patient left up in chair with chair alarm on and call light in reach. OT Eval /Treat Visit and Timing Start Time: 1046 Stop Time: 1058 Time Calculation (min): 12 min OT Received On: 01/30/24 Type of visit: Treatment Therapeutic Activity Time Entry: 12 All charges today are appropriate and separate from each other. Next session plan to continue per POC. MARIAM LEDEZMA OT S DESIGNER * Interdisciplinary - Courtney Alexis, MOVIE SHOT CAMERA OPERATOR - 02/09/2024 8:23 AM CST Respiratory Therapy Assessment And Education Points 0 1 2 3 4 Score Pulmonary History No Smoking Smokes <1 ppd Smokes 1 ppd or more Pulmonary impairment (acute or chronic) Severe or Chronic exacerbation 3 Surgical Status None General Surgery Lower Abdominal Surgery Thoracic or Upper Abdominal Surgery Thoracic with Pulmonary Disease 0 CXR (from last 24 hrs) Clear Unavailable Infiltrates, Atelectasis or Pleural effusion Infiltrates in more than 1 lobe Infiltrates plus Atelectasis or Pleural effusion 2 Respirations Regular Pattern, RR 8-20 Increased, RR 21-25 Dyspnea on exertion, irregular pattern, RR 26-30 Use of accessory muscles, prolonged expiration, RR 31-35 Severe SOB with use of accessory muscles, RR >35 0 BS Clear Diminished Unilaterally Diminished Bilaterally Crackles in Bases Wheezing and/or Rhonchi 110 Cough Strong, Non- productive cough Strong, productive cough Weak, Non- productive cough Weak, productive cough No cough, may require suctioning 2 Mental status Alert and oriented Lethargic, follows commands Confused, does not follow commands Obtunded Comatose 0 Level of Activity Ambulatory Ambulatory with assistance Temporarily non-Ambulatory Bed rest, able to position self Bed rest, unable to position self 1 O2 required to keep SpO2 >=92% (or ordered goal) None 1-3 L/M or FiO2 25-35% 4-6 L/M or FiO2 35-50% >50% 100% 1 Total Score 10 Treatment Scoring Guide Frequency Utilize ORDER SET for all changes Severity Level 5 > 20 points Q2 and Q4 Albuterol Q2 and Ipratropium Q4 *Discontinue previous orders* Severity Level 4 16-20 points Q4 and PRN Duoneb Q4 and Albuterol Q2 PRN *Discontinue previous orders* Severity Level 3 11-15 points QID and PRN Duoneb QID and Albuterol Q4 PRN *Discontinue previous orders* Severity Level 2 6-10 points TID and Q6 PRN Albuterol only *Discontinue previous orders* Severity Level 1 0-5 points Q6 PRN Albuterol only *Discontinue previous orders* Home Regimen Home medication orders As per reconciled home medications Patient RTA Severity Level Is: 2 Patient Progression Since Admission: not changed Treatment Plan Adjusted: No: Education Documented (within Education Tab): Yes Education Provided To: patient Comments: By: COURTNEY ALEXIS CRT; 02/09/2024, 8:24 AM FORMS DESIGNER S DESIGNER * Interdisciplinary - Melissa Chowdhury RN - 02/09/2024 7:04 AM CST Patient report given to SABRINA Cruz. Patient resting in bed. Patient A&Ox4. Patient turned/repositioned and skin assessed with oncoming RN. Vital Signs per flowsheet. Call light within reach. Bed alarm on. Patient updated to plan of care. No acute distress noted. MELISSA CHOWDHURY RN S DESIGNER * Interdisciplinary - Marcelo Denise RN - 02/09/2024 7:00 AM CST Report received from SABRINA Lemus. Assumed patient care at this time. Patient A&Ox4. Vital signs per flowsheet. IV drip rates verified. Call light in reach, alarms on. No acute distress noted. Patient updated to plan of care. BSSR completed and 2 RN skin assessment completed. Patient turned and repositioned. S DESIGNER * Plan of Care - O'Lucinda, Morghan R, RN - 02/08/2024 4:46 PM CST Problem: Adult Inpatient Plan of Care Goal: Plan of Care Review Outcome: Ongoing (see interventions/notes) Flowsheets (Taken 02/08/2024 1645) Plan of Care Reviewed With: patient Progress: progress toward functional goals as expected Today's Goal: Patient will maintain SpO2 >90% this shift. Outcome Evaluation: Goal met, remains on 3L of oxygen. Does the patient need assistance with discharge and/or transitioning to the next level of care?: Yes, case management already following Goal: Optimal Comfort and Wellbeing Outcome: Ongoing (see interventions/notes) Goal: Readiness for Transition of Care Outcome: Ongoing (see interventions/notes) Problem: Skin Injury Risk Increased Goal: Skin Health and Integrity Outcome: Ongoing (see interventions/notes) Problem: Fall Injury Risk Goal: Absence of Fall and Fall-Related Injury Outcome: Ongoing (see interventions/notes) Problem: Functional Deficit Goal: Improved Balance and Postural Control Outcome: Ongoing (see interventions/notes) Goal: Optimal Cognitive Function Outcome: Ongoing (see interventions/notes) Goal: Optimal Coordination Outcome: Ongoing (see interventions/notes) Goal: Improved Muscle Strength Outcome: Ongoing (see interventions/notes) Goal: Improved Muscle Tone Outcome: Ongoing (see interventions/notes) Goal: Optimal Range of Motion Outcome: Ongoing (see interventions/notes) Goal: Compensation for Sensory Deficit Outcome: Ongoing (see interventions/notes) Problem: Confusion Acute Goal: Optimal Cognitive Function Outcome: Ongoing (see interventions/notes) Intervention: Minimize Contributing Factors Flowsheets (Taken 02/08/2024 0555) Communication Support Strategies: active listening utilized Sensory Stimulation Regulation: care clustered lighting decreased quiet environment promoted television on Reorientation Measures: clock in view reorientation provided Problem: Violence Risk or Actual Goal: Anger and Impulse Control Outcome: Ongoing (see interventions/notes) S DESIGNER * Telehealth - Alyse Queen MD - 02/08/2024 1:20 PM CST [facility] GRAIN SPOUTER NOTE Papito Joseph date: 1945. Admission Date: 01/25/2024 Date of ICU Admission: 02/08/2024 Admitting Diagnosis: Seizure (HCC) [R56.9] Altered mental status [R41.82] Acute respiratory failure with hypoxia and hypercapnia (HCC) [J96.01, J96.02] Pneumonia due to infectious organism, unspecified laterality, unspecified part of lung [J18.9] Cardiopulmonary arrest with successful resuscitation (HCC) [I46.9] 1. Cardiopulmonary arrest with successful resuscitation (HCC) albuterol (PROVENTIL, VENTOLIN) (2.5 MG/3ML) 0.083% nebulizer solution 2.5 mg albuterol (PROVENTIL, VENTOLIN) (2.5 MG/3ML) 0.083% nebulizer solution 2.5 mg DISCONTINUED: ipratropium-albuterol (DUO-NEB) 0.5-2.5 (3) MG/3ML nebulizer solution 3 mL 2. Seizure (HCC) 3. Acute respiratory failure with hypoxia and hypercapnia (HCC) DISCONTINUED: ipratropium-albuterol(DUO-NEB) 0.5-2.5 (3) MG/3ML nebulizer solution 3 mL DISCONTINUED: albuterol (PROVENTIL, VENTOLIN) (2.5 MG/3ML) 0.083% nebulizer solution 2.5 mg 4. Pneumonia due to infectious organism, unspecified laterality, unspecified part of lung 5. Altered mental status Papito Joseph is a 78 y.o. male who is Hospital Day (LOS: 14 days) HPI: 78 yo male s/p arrest now extubated, course c/b pneumonia, UTI, delirium, patient also has history of diastolic HF and moderate/severe on ECHO. Had acute respiratory distress and transferred to ICU with signs of worsening fluid overload, now getting IV diuresis. Ht Readings from Last 1 Encounters: 01/25/24 5' 10 (1.778 m) Wt Readings from Last 1 Encounters: 02/08/24 155 lb 1.6 oz (70.4 kg) Body mass index is 22.25 kg/m??. Vitals: 02/08/24 1000 02/08/24 1100 02/08/24 1200 02/08/24 1300 BP: 120/75 102/61 112/74 (!) 131/92 Pulse: 97 97 96 98 Resp: Temp: 98.2 ??F (36.8 ??C) TempSrc: Tympanic SpO2: (!) 88% 96% 94% 93% Weight: Height: Blood pressure (!) 131/92, pulse 98, temperature 98.2 ??F (36.8 ??C), temperature source Tympanic, resp. rate 22, height 5' 10 (1.778 m), weight 155 lb 1.6 oz (70.4 kg), SpO2 93%. Recent Labs Units 02/08/24 0345 02/07/24 0802 WBC 10(3)/mcL 12.08* 11.91 SODIUM mmol/L 146* 144 CALCIUM mg/dL 8.8 8.7 POTASSIUM mmol/L 3.5 3.8 BUN mg/dL 16 15 CREATININE mg/dL 0.73 0.77 LACTICA mmol/L -- 0.7 SGOTAST U/L 12 11 SGPTALT U/L 9 8 ALBUMIN g/dL 3.0* 2.8* TOTALPROTEIN g/dL 6.4 6.0* Recent Labs Units 02/08/24 0345 02/07/24 0802 HEMOGLOBIN g/dL 9.5* 8.9* PLATELETCNT 10(3)/mcL 411 379 Medications: Continuous IV Principal Problem: Cardiopulmonary arrest with successful resuscitation ([facility]) Active Problems: Seizures (HCC) SD (myocardial infarction) ([facility]) CVA (cerebral vascular accident) ([facility]) Overview: 05/2023 COPD (chronic obstructive pulmonary disease) (HCC) BPH (benign prostatic hyperplasia) A-fib (HCC) Aortic valve stenosis Mitral valve stenosis Chronic diastolic heart failure ([facility]) CAD (coronary artery disease) TIA (transient ischemic attack) HLD (hyperlipidemia) Pulmonary HTN (HCC) DM type 2 (diabetes mellitus, type 2) ([facility]) Assessment/Plan: Last Ventilator settings: Vent Mode: PS/CPAP (Pat is on weaning trails) FIO2 (%): 30 % SpO2: 93 % Set Vt (ml): 500 ml Resp Rate (Set): 14 PEEP/CPAP (cm H2O): 5 cm H20 Pressure Support (cm H2O): 10 cm H2O Days intubated: 0 Vasopressors: none IV fluids: none Antibiotics: none Consults: cardiology DVT prophylaxis: lovenox Medications, labs and pertinent radiology were reviewed I reviewed the treatment plan, best practices and diagnosis Treatment plan and management deferred to bedside physician team EICU available should acute issues arise Alyse Queen MD S DESIGNER * Interdisciplinary - Roxana Barr RN - 02/08/2024 11:05 AM CST Marvin, son, call returned. Updated on patient status and all questions and concerns addressed. S DESIGNER * Plan of Care - Elsa Weaver RN - 02/08/2024 6:25 AM CST Problem: Adult Inpatient Plan of Care Goal: Plan of Care Review Outcome: Ongoing (see interventions/notes) Goal: Optimal Comfort and Wellbeing Outcome: Ongoing (see interventions/notes) Goal: Readiness for Transition of Care Outcome: Ongoing (see interventions/notes) Problem: Skin Injury Risk Increased Goal: Skin Health and Integrity Outcome: Ongoing (see interventions/notes) Problem: Fall Injury Risk Goal: Absence of Fall and Fall-Related Injury Outcome: Ongoing (see interventions/notes) Problem: Functional Deficit Goal: Improved Balance and Postural Control Outcome: Ongoing (see interventions/notes) Goal: Optimal Cognitive Function Outcome: Ongoing (see interventions/notes) Goal: Optimal Coordination Outcome: Ongoing (see interventions/notes) Goal: Improved Muscle Strength Outcome: Ongoing (see interventions/notes) Goal: Improved Muscle Tone Outcome: Ongoing (see interventions/notes) Goal: Optimal Range of Motion Outcome: Ongoing (see interventions/notes) Goal: Compensation for Sensory Deficit Outcome: Ongoing (see interventions/notes) Problem: Confusion Acute Goal: Optimal Cognitive Function Outcome: Ongoing (see interventions/notes) Problem: Violence Risk or Actual Goal: Anger and Impulse Control Outcome: Ongoing (see interventions/notes) S DESIGNER * Telehealth - Clarice Ricks MD - 02/08/2024 5:43 AM CST [facility] Physician Brief Note Patient trsf from the floor after ELECTRONIC EQUIPMENT REPAIRMEN for hypoxia. Found with mask off. Chart reviewed briefly. On camera, the patient is in NAD. CxR with worsening pulmonary edema and effusion (worse on right).. Plan: Ordered lasix 40 mg IVP x1. Monitor strict I&Os. Eicu is available if acute issues arise. S DESIGNER * Interdisciplinary - Florin Ley RN - 02/08/2024 3:32 AM CST Patient transferred via bed to ICU 2. Update/report given at bedside. S DESIGNER * Interdisciplinary - Rika Gillis RN - 02/08/2024 2:45 AM CST Patient found by this nurse with oxygen removed along with his heart monitor. Oxygen placed back onpt. SpO2 was in the 40s on 3L Increased O2 to 5L Informed bedside nurse of patient's status Upon arriving back to room patient was still in the 60s so patient was placed on 15L non-rebreather Conference Services Manager to bedside and provider informed of change in patient status Respiratory to bedside and ABGs obtained Patient stabilized and transported to ICU-2 on non-rebreather S DESIGNER * Interdisciplinary - Florin Ley RN - 02/07/2024 8:23 PM CST Patient sitting up in chair at this time. O2 in place at 2L per nasal cannula. Blankenship patent and draining without difficulty. Call light in reach. S DESIGNER * Plan of Care - Ddii Sellers RN - 02/07/2024 3:52 PM CST Problem: Adult Inpatient Plan of Care Goal: Plan of Care Review Flowsheets Taken 02/07/2024 1550 by DIDI Plan of Care Reviewed With: patient Progress: progress toward functional goals is gradual Outcome Evaluation: pt has NG tube placed but no bowel movement yet, family in room call bel in reach Taken 02/07/2024 0057 by FLORIN Today's Goal: Patient will have a bowel movement this shift. Does the patient need assistance with discharge and/or transitioning to the next level of care?: Yes, case management already following Goal: Optimal Comfort and Wellbeing Intervention: Monitor Pain and Promote Comfort Flowsheets (Taken 02/07/2024 1550) Pain Management Interventions: pillow support provided care clustered quiet environment facilitated S DESIGNER * Interdisciplinary - Chata Morrell, MOVIE SHOT CAMERA OPERATOR - 02/07/2024 8:11 AM CST Respiratory Therapy Assessment And Education Points 0 1 2 3 4 Score Pulmonary History No Smoking Smokes <1 ppd Smokes 1 ppd or more Pulmonary impairment (acute or chronic) Severe or Chronic exacerbation 3 Surgical Status None General Surgery Lower Abdominal Surgery Thoracic or Upper Abdominal Surgery Thoracic with Pulmonary Disease 0 CXR (from last 24 hrs) Clear Unavailable Infiltrates, Atelectasis or Pleural effusion Infiltrates in more than 1 lobe Infiltrates plus Atelectasis or Pleural effusion 1 Respirations Regular Pattern, RR 8-20 Increased, RR 21-25 Dyspnea on exertion, irregular pattern, RR 26-30 Use of accessory muscles, prolonged expiration, RR 31-35 Severe SOB with use of accessory muscles, RR >35 0 BS Clear Diminished Unilaterally Diminished Bilaterally Crackles in Bases Wheezing and/or Rhonchi 2 Cough Strong, Non- productive cough Strong, productive cough Weak, Non- productive cough Weak, productive cough No cough, may require suctioning 0 Mental status Alert and oriented Lethargic, follows commands Confused, does not follow commands Obtunded Comatose 0 Level of Activity Ambulatory Ambulatory with assistance Temporarily non-Ambulatory Bed rest, able to position self Bed rest, unable to position self 1 O2 required to keep SpO2 >=92% (or ordered goal) None 1-3 L/M or FiO2 25-35% 4-6 L/M or FiO2 35-50% >50% 100% 1 Total Score 8 Treatment Scoring Guide Frequency Utilize ORDER SET for all changes Severity Level 5 > 20 points Q2 and Q4 Albuterol Q2 and Ipratropium Q4 *Discontinue previous orders* Severity Level 4 16-20 points Q4 and PRN Duoneb Q4 and Albuterol Q2 PRN *Discontinue previous orders* Severity Level 3 11-15 points QID and PRN Duoneb QID and Albuterol Q4 PRN *Discontinue previous orders* Severity Level 2 6-10 points TID and Q6 PRN Albuterol only *Discontinue previous orders* Severity Level 1 0-5 points Q6 PRN Albuterol only *Discontinue previous orders* Home Regimen Home medication orders As per reconciled home medications Patient RTA Severity Level Is: level 2 Patient Progression Since Admission: improved Treatment Plan Adjusted: No: Education Documented (within Education Tab): Yes Education Provided To: patient Comments: By: CHATA MORRELL, MOVIE SHOT CAMERA OPERATOR; 02/07/2024, 8:11 AM FORMS DESIGNER S DESIGNER * Interdisciplinary - Chata Herrera RN - 02/07/2024 1:36 AM CST Attempted NG tube again and patient did not tolerate well, pulled tube out before could get it advanced. Patient states I cannot do this, I am sorry . SHEETER OPERATOR notified. S DESIGNER * Plan of Care - Florin Ley RN - 02/07/2024 1:04 AM CST Problem: Adult Inpatient Plan of Care Goal: Plan of Care Review Outcome: Ongoing (see interventions/notes) Flowsheets (Taken 02/07/2024 005) Plan of Care Reviewed With: patient Progress: no change Today's Goal: Patient will have a bowel movement this shift. Outcome Evaluation: patient has had no bowel movmeent this shift. NG tube attempted to be placed and was unsuccessful. patient refused to let staff try again right now. no s/s of any distress noted. has had some complaints of pain this shift. call light in reach. Does the patient need assistance with discharge and/or transitioning to the next level of care?: Yes, case management already following Goal: Optimal Comfort and Wellbeing Outcome: Ongoing (see interventions/notes) Intervention: Monitor Pain and Promote Comfort Flowsheets (Taken 02/06/20242004) Pain Management Interventions: care clustered pain management plan reviewed with patient/caregiver pillow support provided position adjusted relaxation techniques promoted quiet environment facilitated Intervention: Provide Person-Centered Care Flowsheets (Taken 02/06/20242029) Trust Relationship/Rapport: care explained reassurance provided therapeutic presence provided thoughts/feelings acknowledged respect patient/family decisions provided choices provided emotional support provided empathic listening provided safe/supportive environment facilitated nonverbal communication acknowledged questions answered questions encouraged Goal: Readiness for Transition of Care Outcome: Ongoing (see interventions/notes) Problem: Skin Injury Risk Increased Goal: Skin Health and Integrity Outcome: Ongoing (see interventions/notes) Intervention: Optimize Skin Protection Flowsheets Taken 02/07/202456 Activity Management: activity adjusted per tolerance activity encouraged Pressure Reduction Techniques: frequent weight shift encouraged Head of Bed (HOB) Positioning: HOB at 30 degrees Taken 02/06/202443 Skin Protection: incontinence pads utilized transparent dressing maintained protective footwear used Intervention: Promote and Optimize Oral Intake Flowsheets (Taken 02/07/202456) Nutrition Interventions: (patient NPO at this time.) other (see comments) Problem: Fall Injury Risk Goal: Absence of Fall and Fall-Related Injury Outcome: Ongoing (see interventions/notes) Intervention: Identify and Manage Contributors Flowsheets Taken 02/07/202456 Medication Review/Management: medications reviewed Taken 02/05/20241999 Self-Care Promotion: independence encouraged BADL personal objects within reach BADL personal routines maintained Intervention: Promote Injury-Free Environment Flowsheets (Taken 02/07/202456) Safety Promotion/Fall Prevention: bed alarm environmental modification fall reduction program maintained lighting adjusted for task/safety low bed nonskid shoes/slippers when out of bed Problem: Functional Deficit Goal: Improved Balance and Postural Control Outcome: Ongoing (see interventions/notes) Intervention: Optimize Balance and Safe Activity Flowsheets Taken 02/07/202456 Activity Management: activity adjusted per tolerance activity encouraged Safety Promotion/Fall Prevention: bed alarm environmental modification fall reduction program maintained lighting adjusted for task/safety low bed nonskid shoes/slippers when out of bed Taken 02/05/20241999 Self-Care Promotion: independence encouraged BADL personal objects within reach BADL personal routines maintained Goal: Optimal Cognitive Function Outcome: Ongoing (see interventions/notes) Intervention: Optimize Cognitive Function Flowsheets Taken 02/06/202443 Sensory Stimulation Regulation: care clustered lighting decreased quiet environment promoted Environment Familiarity/Consistency: familiar objects from home provided Taken 02/05/20241999 Self-Care Promotion: independence encouraged BADL personal objects within reach BADL personal routines maintained Goal: Optimal Coordination Outcome: Ongoing (see interventions/notes) Intervention: Optimize Motor Coordination and Function Flowsheets (Taken 02/05/20241999) Self-Care Promotion: independence encouraged BADL personal objects within reach BADL personal routines maintained Goal: Improved Muscle Strength Outcome: Ongoing (see interventions/notes) Intervention: Optimize Muscle Strength Flowsheets Taken 02/07/202456 Activity Management: activity adjusted per tolerance activity encouraged Activity Assistance Provided: assistance, 1 person Taken 02/05/20241999 Self-Care Promotion: independence encouraged BADL personal objects within reach BADL personal routines maintained Goal: Improved Muscle Tone Outcome: Ongoing (see interventions/notes) Goal: Optimal Range of Motion Outcome: Ongoing (see interventions/notes) Intervention: Maintain Functional Joint Range Position Flowsheets Taken 02/07/202456 Positioning/Transfer Devices: pillows in use Taken 02/06/20242004 Range of Motion: active ROM (range of motion) encouraged Goal: Compensation for Sensory Deficit Outcome: Ongoing (see interventions/notes) Intervention: Optimize Sensory Function Flowsheets Taken 02/07/202456 Pressure Reduction Techniques: frequent weight shift encouraged Sensation Impairment Protection: cues provided for safety Taken 02/06/202443 Skin Protection: incontinence pads utilized transparent dressing maintained protective footwear used Problem: Confusion Acute Goal: Optimal Cognitive Function Outcome: Ongoing (see interventions/notes) Intervention: Minimize Contributing Factors Flowsheets (Taken 02/06/202443) Communication Support Strategies: active listening utilized extra time allowed for response Sensory Stimulation Regulation: care clustered lighting decreased quiet environment promoted Reorientation Measures: clock in view reorientation provided Environment Familiarity/Consistency: familiar objects from home provided Problem: Violence Risk or Actual Goal: Anger and Impulse Control Outcome: Ongoing (see interventions/notes) Intervention: Minimize Safety Risk Flowsheets Taken 02/07/202456 Enhanced Safety Measures: bed alarm set Taken 02/06/202443 Behavior Management: impulse control promoted Sensory Stimulation Regulation: care clustered lighting decreased quiet environment promoted De-Escalation Techniques: stimulation decreased increased round frequency quiet time facilitated verbally redirected Intervention: Promote Self-Control Flowsheets (Taken 02/06/2024 0044) Supportive Measures: active listening utilized relaxation techniques promoted verbalization of feelings encouraged Environmental Support: calm environment promoted rest periods encouraged S DESIGNER * Interdisciplinary - Chata Herrera RN - 02/06/2024 9:00 PM CST Placed NG tube and ordered KUB. NG tube coiled at the end, attempted to adjust tube several times without success. NG tube pulled and patient states he would like to wait for a re-attempt. SHEETER OPERATOR notified. S DESIGNER * Plan of Care - Deny Stokes MS [facility]-BUSINESS TECHNOLOGY TEACHER - 02/06/2024 4:13 PM FORMS DESIGNER Speech-Language Pathology: Dysphagia Treatment Completed: 02/06/2024 Recommendations: Diet Solids Recommendation: IDDSI 5/Moist and Minced Diet Liquids Recommendations: IDDSI 2/Mildly thick liquids/[place] thick Recommended Form of Meds: Crush, In puree Feeding Guidelines: Upright for all oral intake Slow rate of intake Cue patient for additional swallow, throat clear and effortful swallow Aggressive oral care Instrumental assessment : completed during this admit Patient would benefit from: continued skilled intervention and patient/family education Assessment: Patient presented with continued evidence of dysphagia and known silent aspiration and demonstratedgood progress toward roman catholic of oral nutrition/hydration at baseline level. Patient demonstrated emerging strength and endurance. Recommend continue with modified diet/liquid textures, feeding guidelines and oral hygiene management. Patient is at elevated risk for adverse effects related to dysphagia/aspiration and continued skilled intervention is warranted. The prognosis for the patient to meet nutritional needs by mouth is good. based on degree of impairment, stimulability for treatment, baseline medical condition. Strongest to weakest predictors of aspiration pneumonia exhibited by this patient are Dependence for feeding, Dependence for oral care, More than one medical diagnosis, Number of medication prescribed, Xerostomia (dry mouth), Reduced activity level, Aspiration of food/liquid, and GERD(Langcarlota et al). Silent aspiration cannot be excluded clinically. If concern for silent aspiration, please refer formodified barium swallow study. Subjective: Patient was awake in room with evening meal. No family present. Treatment: Patient need for assist with procedure: Moderate [place], fair self feeding ability Positioning: upright on bed Liquid/Solid Trials: [place] thick liquids/[place]ild[place] thick liquids, Puree/IDDSI 4, and Moist and Minced/IDDSI 5 Oral Phase Characteristics: intact labial seal, appearance of incomplete mastication of solids, andtrace residue lining oral structures Pharyngeal phase characteristics: suspected pharyngeal impairment and appearance of inconsistent laryngeal elevation The Jeffers Assessment of Swallowing Ability (MASA) was utilized to assess the patient's overall swallowing function. Alertness: 10-alert Cooperation: 10-cooperative Auditory Comprehension: 8-follows ordinary conversation with little difficulty Respiration: 10-no chest infection Respiratory Rate for Swallow: 5-able to control rate for swallow Aphasia: 5-no deficits Apraxia: 5-no deficits Dysarthria: 4-slow with occasional halting Saliva: 5-no deficits Lip Seal: 5-no deficits Tongue Movement: 8-mild impairment in range Tongue Strength: 8-minimal weakness Tongue Coordination: 8-mild incoordination Oral Prep: 8-lip or tongue seal bolus escape Ga-no deficits noted Palate: 10-no deficits noted Bolus Clearance: 8-significant clearance/minimal residue present Oral Transit: 8-delayed >1 second Cough Reflex: 3-reflexive cough Voluntary Cough: 5-attempt inadequate Voice: 8-mild impairment/huskiness Trach: 10-no trach Pharyngeal Phase: 8-mildly restricted elevation/slow initiation Pharyngeal Response: 5-cough before/during/after the swallow MASA Score: 169/200 (initial eval score: 124) MASA Dysphagia Severity Score: Mild (168-177) MASA Aspiration Risk Score: MILD 149-169 Education: BUSINESS TECHNOLOGY TEACHER provided skilled verbal instruction to patient regarding rationale for skilled services, therapy performance, compensatory strategies and/or precautions, and recommended guidelines. Patient did stated understanding and further reinforcement warranted Alerted nursing to evaluation performance and recommendations for care. Sign posted at bedside withfeeding guidelines with patient permission. Patient remained in bed with dinner and with call light near. If this is the last Speech Therapy visit, please refer to this note as the discharge summary. Thank you for your referral. DENY STOKES MS [facility]-BUSINESS TECHNOLOGY TEACHER Speech Language Pathologist 02/06/2024 Visit Timing/Type Start Time: 1545 Stop Time: 1605 Time Calculation (min): 20 min Time Calculation Comment: SFT BUSINESS TECHNOLOGY TEACHER Received On: 01/29/24 Type of visit: Treatment Swallow/Oral Function Treatment Time Entry: 20 BUSINESS TECHNOLOGY TEACHER Frequency: 5 sessions a week Speech Therapy Plan of Care Patient to be seen by Speech Therapy 4-5x/week to address impairments and functional limitations. Treatments to include:education and facilitation of compensatory strategies Preferred Language: Cymraes Goals to be achieved by: discharge Precautions: falls,safety, full code - BUSINESS TECHNOLOGY TEACHER to provide skilled instruction to patient/family/staff regarding recommendations, precautionsand strategies for improved health literacy, safety and discharge planning. - Patient to consume clinician led oral intake trials to determine candidacy for consistent oral intake. - Patient to consume consistent modified diet/liquid textures without evidence of associated adverse effects related dysphagia/aspiration - Completed MODIFIED BARIUM SWALLOW STUDY for comprehensive exam of swallow physiology and determine further intervention needs. GOAL MET - Mu-Ism of oral nutrition/hydration with optimal safety, adequacy and enjoyment. S DESIGNER * Zheng - Dayana Wood - 02/06/2024 1:44 PM CST Clinical Product Specialist Coordination Note SUMMARY - Clinical Product Specialist currently working the potential transition plan(s): 02/02/2024 @ 2:52 PM FORMS DESIGNER (KEAGAN, DENIS) Inpatient Rehabilitation Facility [IRF] (See detail within the referral type(s) below for information on what is needed to complete coordination Note - the Transition Specialists do not coordinate all transition types - please direct all question regarding hospital transition to the Demand Inspector) Readmission risk level (if calculated) is: 2-Medium Low Primary Care Provider: PCP: UNKNOWN PROVIDER Primary Medical Coverage: Medicare Part A Secondary Medical Coverage: N/A Hospital Follow-Up appointment(s) scheduling status: N/A - Currently anticipating facility / non-community discharge Inpatient Rehabilitation Facility [IRF] Prior Authorization Required? prior authorization NOT required (primary payor is either: Medicare A, Medicare Railroad, or traditional Medicaid) Needed Clarification/ Information / Documentation to complete IRF coordination: Current Physical Therapy documentation Current Occupational Therapy documentation Confirmed Discharge Date [facility] - New Referral - ACCEPTED & SELECTED Required COVID testing: None required Contact or Liaison Name: Shelby Contact phone: [phone] Facility has Bette Garland 02/06/2024 @ 1:42 PM FORMS DESIGNER (GRACE [facility], ) Informed Shelby that KUB shows a possible small bowel obstruction. Dr Montiel is aware. 02/06/2024 @ 11:29 AM FORMS DESIGNER ([facility], ) Per Shelby, they are requesting Doc to Doc phone call. Dr Dooley at [phone]. Informed KYLE Laurent and via secure chat 02/06/2024 @ 11:05 AM FORMS DESIGNER ([facility], ) Response from RN stating pt has not yet had a BM provider is aware. Med given. Informed Shelby of situation and will provide updates as they come. KYLE Laurent is aware 02/06/2024 @ 10:56 AM FORMS DESIGNER ([facility], ) Spoke with Shelby, she stated pt is looking much better today and can come once he has a bowel movement or a KUB stating no obstruction. Secure chat to RN asking when pts last BM was. 02/05/2024 @ 2:03 PM FORMS DESIGNER ([facility], ) Verified with RN, pt is now having hallucinations and talking tosomeone named Chiki and seeing a little boy. Confirmed with Shelby they cannot take pt while he is having hallucinations. I did inform her pt is very sleep deprived, only getting an hour or two of sleep a night. KYLE Laurent aware 02/05/2024 @ 12:03 PM FORMS DESIGNER ([facility], ) Spoke with Shelby and let her know speech and OT notes are charted for review. 02/03/2024 @ 1:55 PM FORMS DESIGNER ([facility], ) Spoke with Toyin who stated pt looks ok, but she will not be ableto get a final answer until pt is a bit more stable. Did let her know his diet has been advanced. We will touch base again in a day or two. KYLE Newman notified in person 02/03/2024 @ 9:00 AM FORMS DESIGNER ([facility], ) Spoke with Toyin who stated they are verifying pts insurance benefits. Referral still pending at this time. 02/03/2024 @ 8:48 AM FORMS DESIGNER ([facility], ) Left message for Toyin asking for referral update. 02/02/2024 @ 2:52 PM FORMS DESIGNER ([facility], ) Notified Shelby of referral via [employer] message 02/02/2024 @ 2:53 PM FORMS DESIGNER ([facility]) Referral sent via [employer] S DESIGNER S DESIGNER S DESIGNER S DESIGNER * Interdisciplinary - Kaci Palacios RN - 02/06/2024 1:[address] Patel from clinical radiology spoke to this RN regarding KUB and possible SBO measuring 3.8cm. Dr. Montiel notified. Orders placed. S DESIGNER * Plan of Care - Jailyn Lubin, PT - 02/06/2024 12:50 PM CST Activity Recommendations: Recommendations for floor staff include up to chair and requires Minimal assist with Front Wheeled Walker and Gait belt. Activity recommendations communicated with RN. Discharge Recommendations: From a therapy perspective, at the time of discharge it appears that patient would benefit from Acute rehab due to decreased functional mobility. Therapist discussed this recommendation with RN. DME recommendations include:To be determined Assessment: Significant Physical Therapist findings with this patient include Weakness, Decreased endurance, Decreased strength, Decreased cognition, Impaired balance, and Impaired gait that leads to functional limitations including decreased ability to get in/out of bed, stand from bed or chair, ambulate household distances safely. This represents a functional decline that requires acute PT intervention. Patient will benefit fromPhysical Therapy to address these deficits during their hospitalization. Strengths of this patient include Family support. Anticipate patient will progress toward stated goals with therapeutic intervention. PT Plan of Care: Date of Initial Evaluation: 02/02/24 Patient to be seen by Physical Therapy. 3 to 4 x/week. Physical Therapy to address impairments and functional limitations. Treatments to include: Balance training, Endurance training, Gait, Mobility/Transfers, Neuro re-education, Safety, and Therex Precautions: Seizure, Fall, and Monitor Vitals Goals to be achieved by: 02/09/24 - Patient will perform supine-sit transfers with Minimal assist to be able to assist with positioning. - Patient will perform sit-stand transfers with least restrictive device and Minimal assist to be able to rise from chair. - Patient will ambulate with least restrictive device for 15 feet and Minimal assist to be able to facilitate patient access to bathroom. - Patient will demonstrate independence in therapeutic exercise program specific to relative impairments in order to optimize rehabilitation. - Patient will improve AM-PAC score to be greater than or equal to 17 points to indicate improved overall daily function. Patient stated goal: Do what I was doing Preferred Language [place]ymraes PHYSICAL THERAPY TREATMENT Subjective: Patient reports that he is not any any pain today. Observation: Patient observed supine in bed with HOB elevated - tele, IV, O2, and blankenship catheter intact. 2L O2 via NC Pain: (0-10) Pain Rating: Rest: (patient denies pain) (0-10) Pain Rating: Activity: (patient denies pain) Bed Mobility: ? Supine to Sit: Minimal assist with 1 person using Bed Rails and Head of Bed Elevated . Bed Mobility Details: Patient transferred from supine in bed with HOB elevated to sitting up edge of bed with minimal assistance from therapist for safety Transfers: ? Sit to Stand transfer with Minimal assist and 1 person using Front Wheeled Walker and Gait belt. ? Stand to Sit transfer with Minimal assist and 1 person using Front Wheeled Walker and Gait belt. Gait: Ambulated 35 feet x 2 with Contact guard assist and 1 person + 1 person for equipment using Front Wheeled Walker and Gait belt Gait Details: Patient required assistance with oxygen tank and had a wheelchair follow for safety. He required one seated rest break after ambulating 35 feet then walked back to his hospital room. Patient demonstrates progress towards goals as evidenced by ambulating further distances today. Outcome Measure Used: [facility] AM-PAC?6 Clicks?? Basic Mobility Inpatient Short Form How much help from another person does the patient currently need??? 1. Turning from your back to your side while in a flat bed without using bedrails? 3 A Little 2. Moving from lying on your back to sitting on the side of a flat bed without using bedrails? 3 A Little 3. Moving to and from a bed to a chair (including a wheelchair)? 3 A Little 4. Standing up from a chair using your arms (e.g. wheelchair or bedside chair)? 3 A Little 5. To walk in hospital room? 3 A Little 6. Climbing 3-5 steps with a railing? 1 Unable Raw Score 16 16 or Less = predictive of discharge to an institutional setting. 17-24 = predictive of discharge to home lennox Farias. Association of A-PAC ???6 Clicks?? Basic Mobility and Daily Activity Scores with Discharge Destination. PTJ. March 2020 Education Provided: safety, hand placement, gait training Eval /Treat Visit and Timing Start Time: 1250 Stop Time: 1305 Time Calculation (min): 15 min PT Received On: 02/02/24 Type of visit: Treatment Treatment Type: Gait Training Gait Training Time Entry: 15 All charges today are appropriate and separate from each other. Patient returned to bed with alarm on and call light in reach. Next session plan to progress patient as appropriate. JAILYN LUBIN, PT S DESIGNER * Interdisciplinary - Marleen Day RD - 02/06/2024 12:41 PM CST ASSESSMENT: Nutrition Assessment triggered by: RD consult, Nutrition Risk Screen concern. Nutrition risk screen tube feeding or parenteral nutrition, (but pt not on TF at this time). Onesimo Score 12 with probably inadequate nutrition per Risk Assessment. 01/29/2024- pt extubated & OGTF stopped (Vital AF 1.2). 02/02/2024-diet advanced after BUSINESS TECHNOLOGY TEACHER evaluation Nutrition risk screen difficulty chewing/swallowing. PROBLEM: Increased nutrient needs, related to & evidenced by intubation. Principal Problem: Cardiopulmonary arrest with successful resuscitation (HCC) Past Medical History: Past Medical History Positives Diagnosis Date A-fib (HCC) dx in 02/2022, s/p ablation in 07/29/22, cardioversion 09/24/22 Aortic valve stenosis BPH (benign prostatic hyperplasia) CAD (coronary artery disease) Chronic diastolic heart failure (HCC) COPD (chronic obstructive pulmonary disease) (HCC) CVA (cerebral vascular accident) (HCC) 3 yrs ago recovered DM type 2 (diabetes mellitus, type 2) (HCC) HLD (hyperlipidemia) SD (myocardial infarction) (HCC) Mitral valve stenosis Pulmonary HTN (HCC) Seizures (HCC) TIA (transient ischemic attack) Diet: DIET DYSPHAGIA II Restrictions: Thickened Liquids, [place] Diet Supplement: none (stopped Ensure Plus, pt says it gags him) Chew/swallow: modified alter BUSINESS TECHNOLOGY TEACHER evaluation Intake Adequacy: 0-25% Current Onesimo Score 19 with very probably inadequate nutrition, per Risk Assessment. Skin/Wound: none Labs noted: 02/03/24-EGFR>60, BS=85, Vj=526, K=3.8; 01/30/24-P=3.2, Mg=2.2; 01/25/24-albumin=3.9, EGFR=55, XC=445, Ci=688, K=4.7, Mg=2.3, XkH0T=3.6; Meds noted: IV-reglan, humalog, prednisone, senokot, lactulose Current Education: pt declines all available nutrition supplements Previous Education: discussed nutrition supplements & pt agreeable to them Height: Ht Readings from Last 1 Encounters: 01/25/24 5' 10 (1.778 m) Weight: Wt Readings from Last 1 Encounters: 02/02/24 153 lb 11.2 oz (69.7 kg) BMI: Body mass index is 21.95 kg/m??. BMI weight range for height: 132-173# Acute wt Hx: 01/25/24 1706 159 lb 11.2 oz (72.4 kg) -- 01/25/24 1318 154 lb (69.9 kg), an estimated wt -- EMR wt Hx: 162.6# -01/09/2024 ([facility]) 161# -12[facility]26/2023 [facility] 157# -09/09/2023 ([facility]) A.S.P.E.N Clinical Characteristics to Support Malnutrition Diagnosis Clinical Characteristic Clinical Assessment Criteria/Location Energy Intake Inadequate <50% of estimated energy requirement, x4 days Weight Loss Significant 4% in 9 days Subcutaneous Fat Loss Moderate Orbital, Triceps Muscle Loss Severe Confucianism, Interosseous, Clavicle, Acromion, Calf, Patellar region, inner thigh Fluid Accumulation None Noted Hand Student Life Coordinator Strength Unable to Assess 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 These characteristics are indicative of severe malnutrition in the context of acute on chronic illness. NEEDS:(based on 70kg) Calories: 2100 (30kcal/kg) Protein: 70-901gm (1-1.3gm/kg) Fluid: 1800-2100ml GOAL: nutrition adequacy INTERVENTION: pt stopped drinking Ensure Plus, states that it 'gags' him; Discussed alternative supplements & he declines them also; likes Ice cream, but this cannot be thickened; Discussed Magic Cup, but he cannot consume vanilla flavor, therefore all nutrition supplements havebeen stopped; Previous RD note: 01/30/24-attempted placement NG tube for nutrition, per refused; Pt was NPO for 4 days after extubation; acute Rehab for therapy recommended on DC; Diet advanced today after BUSINESS TECHNOLOGY TEACHER eval; Started Ensure Plus High Protein, all meals & pt is drinking them. Reassess: 02/12/[address] S DESIGNER * Interdisciplinary - Chata Morrell, MOVIE SHOT CAMERA OPERATOR - 02/06/2024 9:00 AM CST Respiratory Therapy Assessment And Education Points 0 1 2 3 4 Score Pulmonary History No Smoking Smokes <1 ppd Smokes 1 ppd or more Pulmonary impairment (acute or chronic) Severe or Chronic exacerbation 3 Surgical Status None General Surgery Lower Abdominal Surgery Thoracic or Upper Abdominal Surgery Thoracic with Pulmonary Disease 0 CXR (from last 24 hrs) Clear Unavailable Infiltrates, Atelectasis or Pleural effusion Infiltrates in more than 1 lobe Infiltrates plus Atelectasis or Pleural effusion 1 Respirations Regular Pattern, RR 8-20 Increased, RR 21-25 Dyspnea on exertion, irregular pattern, RR 26-30 Use of accessory muscles, prolonged expiration, RR 31-35 Severe SOB with use of accessory muscles, RR >35 0 BS Clear Diminished Unilaterally Diminished Bilaterally Crackles in Bases Wheezing and/or Rhonchi 4 Cough Strong, Non- productive cough Strong, productive cough Weak, Non- productive cough Weak, productive cough No cough, may require suctioning 0 Mental status Alert and oriented Lethargic, follows commands Confused, does not follow commands Obtunded Comatose 0 Level of Activity Ambulatory Ambulatory with assistance Temporarily non-Ambulatory Bed rest, able to position self Bed rest, unable to position self 1 O2 required to keep SpO2 >=92% (or ordered goal) None 1-3 L/M or FiO2 25-35% 4-6 L/M or FiO2 35-50% >50% 100% 1 Total Score 10 Treatment Scoring Guide Frequency Utilize ORDER SET for all changes Severity Level 5 > 20 points Q2 and Q4 Albuterol Q2 and Ipratropium Q4 *Discontinue previous orders* Severity Level 4 16-20 points Q4 and PRN Duoneb Q4 and Albuterol Q2 PRN *Discontinue previous orders* Severity Level 3 11-15 points QID and PRN Duoneb QID and Albuterol Q4 PRN *Discontinue previous orders* Severity Level 2 6-10 points TID and Q6 PRN Albuterol only *Discontinue previous orders* Severity Level 1 0-5 points Q6 PRN Albuterol only *Discontinue previous orders* Home Regimen Home medication orders As per reconciled home medications Patient RTA Severity Level Is: level 2 Patient Progression Since Admission: not changed Treatment Plan Adjusted: No: Education Documented (within Education Tab): Yes Education Provided To: patient Comments: By: CHATA MORRELL CRT; 02/06/2024, 9:00 AM FORMS DESIGNER S DESIGNER * Plan of Care - Florin Ley RN - 02/06/2024 12:48 AM CST Problem: Adult Inpatient Plan of Care Goal: Plan of Care Review Outcome: Ongoing (see interventions/notes) Flowsheets (Taken 02/06/2024 004) Plan of Care Reviewed With: patient Progress: progress toward functional goals as expected Today's Goal: Pain less than 4 this shift. Outcome Evaluation: Patient has been alert to self this shift. He has been sleeping off and on thisshift. no s/s of any distress noted. blankenship patent and draining without difficulty. safety companionin place. telemetry in place. call light in reach. Does the patient need assistance with discharge and/or transitioning to the next level of care?: Yes, case management already following Goal: Optimal Comfort and Wellbeing Outcome: Ongoing (see interventions/notes) Intervention: Monitor Pain and Promote Comfort Flowsheets (Taken 02/05/2024 6308) Pain Management Interventions: care clustered pain management plan reviewed with patient/caregiver pain medication given pillow support provided position adjusted relaxation techniques promoted quiet environment facilitated Intervention: Provide Person-Centered Care Flowsheets (Taken 02/05/20241999) Trust Relationship/Rapport: care explained choices provided emotional support provided empathic listening provided questions answered questions encouraged nonverbal communication acknowledged safe/supportive environment facilitated respect patient/family decisions provided thoughts/feelings acknowledged therapeutic presence provided reassurance provided Goal: Readiness for Transition of Care Outcome: Ongoing (see interventions/notes) Problem: Skin Injury Risk Increased Goal: Skin Health and Integrity Outcome: Ongoing (see interventions/notes) Intervention: Optimize Skin Protection Flowsheets Taken 02/06/202443 Activity Management: activity adjusted per tolerance activity encouraged Pressure Reduction Techniques: frequent weight shift encouraged Skin Protection: incontinence pads utilized transparent dressing maintained protective footwear used Taken 02/06/2024 0000 Head of Bed (HOB) Positioning: HOB at 30 degrees Intervention: Promote and Optimize Oral Intake Flowsheets (Taken 02/06/202443) Nutrition Interventions: food preferences provided Problem: Fall Injury Risk Goal: Absence of Fall and Fall-Related Injury Outcome: Ongoing (see interventions/notes) Intervention: Identify and Manage Contributors Flowsheets (Taken 02/05/20241999) Medication Review/Management: medications reviewed Self-Care Promotion: independence encouraged BADL personal objects within reach BADL personal routines maintained Intervention: Promote Injury-Free Environment Flowsheets (Taken 02/06/202443) Safety Promotion/Fall Prevention: bed alarm lighting adjusted for task/safety fall reduction program maintained environmental modification low bed nonskid shoes/slippers when out of bed Problem: Functional Deficit Goal: Improved Balance and Postural Control Outcome: Ongoing (see interventions/notes) Goal: Optimal Cognitive Function Outcome: Ongoing (see interventions/notes) Goal: Optimal Coordination Outcome: Ongoing (see interventions/notes) Goal: Improved Muscle Strength Outcome: Ongoing (see interventions/notes) Goal: Improved Muscle Tone Outcome: Ongoing (see interventions/notes) Goal: Optimal Range of Motion Outcome: Ongoing (see interventions/notes) Goal: Compensation for Sensory Deficit Outcome: Ongoing (see interventions/notes) Problem: Confusion Acute Goal: Optimal Cognitive Function Outcome: Ongoing (see interventions/notes) Intervention: Minimize Contributing Factors Flowsheets (Taken 02/06/202443) Communication Support Strategies: active listening utilized extra time allowed for response Sensory Stimulation Regulation: care clustered lighting decreased quiet environment promoted Reorientation Measures: clock in view reorientation provided Environment Familiarity/Consistency: familiar objects from home provided Problem: Violence Risk or Actual Goal: Anger and Impulse Control Outcome: Ongoing (see interventions/notes) Intervention: Minimize Safety Risk Flowsheets (Taken 02/06/202443) Behavior Management: impulse control promoted Sensory Stimulation Regulation: care clustered lighting decreased quiet environment promoted De-Escalation Techniques: stimulation decreased increased round frequency quiet time facilitated verbally redirected Enhanced Safety Measures: bed alarm set monitored by video Intervention: Promote Self-Control Flowsheets (Taken 02/06/202443) Supportive Measures: active listening utilized relaxation techniques promoted verbalization of feelings encouraged Environmental Support: calm environment promoted rest periods encouraged S DESIGNER * Interdisciplinary - Isabel Henriquez RN - 02/05/2024 5:27 PM CST Transferred patient to [facility] via wheelchair and gave report to SABRINA Hairston. All safety precautions were taken. Patient denied any distress. S DESIGNER * Plan of Care - Deny Stokes MS [facility]-BUSINESS TECHNOLOGY TEACHER - 02/05/2024 3:13 PM FORMS DESIGNER Speech-Language Pathology: Cognitive-Communication Evaluation Completed: 02/05/2024 Recommendations: Cognitive Communication Guidelines: Reduce distractions during interaction Increased level of assist compared to PLOF Use of multiple modalities for improved comprehension, retention Continued skilled Speech Pathology intervention is warranted at this time Alerted nursing to evaluation performance and recommendations for care. Assessment: Patient presented with evidence of impaired cognitive communication skills, concerning for deliriumv underlying cognitive impairment Continued skilled Speech Pathology intervention is warranted The prognosis for the patient to meet speech/language/cognitive goals is fair. based on degree of impairment, stimulability for treatment, baseline medical condition. History: HPI: Patient presented to ED on 01/25/2024 with initial complaint for altered mental status after being found by family. Patient had recent move from [place] after of spouse, lives with children. During ED work up, patient had witnessed seizure, lost pulse, underwent approximately three minutes of CPR and emergently intubated. Initial head CT unremarkable for acute process. CTA negative for acute process. Initial work up for cardiac arrest, sepsis possible lung v urine source, NSTEMI, concerns for aspiration v CAP, breakthrough seizure. Patient extubated on 01/29/24 with transfer to nasal cannula at 3L. Patient demonstrated increased confusion on 02/04/24 per nursing with hallucinations reported 02/05/24 PMH: Patient has a past medical history of A-fib (HCC), Aortic valve stenosis, BPH (benign prostatic hyperplasia), CAD (coronary artery disease), Chronic diastolic heart failure ([facility]), COPD (chronic obstructive pulmonary disease) ([facility]), CVA (cerebral vascular accident) ([facility]), DM type 2 (diabetes mellitus, type 2) ([facility]), HLD (hyperlipidemia), SD (myocardial infarction) ([facility]), Mitral valve stenosis, Pulmonary HTN ([facility]), Seizures ([facility]), and TIA (transient ischemic attack). Subjective: Order received for eval and treat. Reviewed patient status with spencer Carrasco prior to evaluation. Family x1 present for visit Examination: Speech Characteristics Intelligibility: Mild Deficit (20-39%) Respiration: Audible Inspiration, Insufficient replenishing breaths, Shallow, Motor speech: Dysarthria Voice: breathy Oral Motor Evaluation Facial: WFL Labial skills: WFL Lingual skills: WFL Alternating motion rates: not assessed Sequential motion rates: not assessed Auditory Comprehension Orientation: Oriented to person and time , NOT oriented to place or situation Yes/No Questions Simple: intact Complex: intact when provided with additional time Follow Verbal Commands: intact when provided with additional time Understood simple information: MOD cues required Understood complex information: MAX cues required Verbal Expression Automatic speech tasks: MOD assist required Repetition: impaired, suspected poor attention Closure Naming: intact Confrontation Namin% accuracy (shapes) Responsive Naming: intact Ability to communicate basic wants/needs: intact Ability to communicate complex information: MAX assist Reading/Writing: not assessed Cognitive/Executive Function Attention: Impaired Visual scanning : not assessed Memory: Immediate Memory: 40% accuracy Delayed Recall: 20% accuracy Functional Recall: 0% accuracy Problem solving: related to current environment- DEPENDENT Abstract Reasoning: (recite reversed months) 18% accuracy The clock drawing subtest from the Cognitive Linguistic Quick Test (CLQT) was used to assess cognition. Scores at/above 11/ 13 are considered WNL when compared to same age peers. Patient's score of 4/13 correlated to severe cognitive impairment. Patient errors this date included: no hands, perseveration of numbers, misplaced numbers, non-rotated numbers and absent insight. The [facility] Mental Status Exam (UMS) was used to screen for cognition. Scores at/above 27 are considered WNL when compared to peers with same level of education. Patient's score of /30 correlated to dementia rating and severe cognitive impairment. Patient errors this date included: orientation, math reasoning, executive functioning, visual reasoning and recall. Education: BUSINESS TECHNOLOGY TEACHER provided skilled verbal instruction to patient regarding rationale for skilled services, evaluation performance, compensatory strategies and/or precautions, and recommended guidelines. Patient did not demonstrate evidence of learning Notified RN and patient of results and recommendations. Expressed understanding. Patient was left upright in recliner with call light near. If this is the last Speech Therapy visit, please refer to this note as the discharge summary. Thank you for your referral. DENY STOKES MS [facility]-BUSINESS TECHNOLOGY TEACHER Speech Language Pathologist 02/05/2024 Visit Timing/Type Start Time: 1435 Stop Time: 1512 Time Calculation (min): 37 min Time Calculation Comment: VERA BUSINESS TECHNOLOGY TEACHER Received On: 01/29/24 Type of visit: Evaluation Evaluation Type for Bilmin: Eval of Speech Sound Prod with Lang Comp/Express Speech Sound Production Eval W/ Lang Comp and Exp Time Entry: 37 Swallow Evaluation with Radiopaque Mat Time Entry: 38 BUSINESS TECHNOLOGY TEACHER Frequency: 5 sessions a week Speech Therapy Plan of Care Patient to be seen by Speech Therapy 4-5x/week to address impairments and functional limitations. Treatments to include:education and facilitation of compensatory strategies Preferred Language: Cymraes Goals to be achieved by: discharge Precautions: falls, safety, full code 1- For improved awareness, patient to answer open ended orientation questions when provided with moderate assist. 2- For improved safety, patient will answer simple questions related to safety in current environment when provided with moderate assist. 3- For improve reasoning, patient will answer questions and provide logical solution when provided with moderate assist. S DESIGNER * Zheng - Dayana Wood - 02/05/2024 2:06 PM CST Clinical Product Specialist Coordination Note SUMMARY - Clinical Product Specialist currently working the potential transition plan(s): 02/02/2024 @ 2:52 PM FORMS DESIGNER ([facility], ) Inpatient Rehabilitation Facility [IRF] (See detail within the referral type(s) below for information on what is needed to complete coordination Note - the Transition Specialists do not coordinate all transition types - please direct all question regarding hospital transition to the Demand Inspector) Readmission risk level (if calculated) is: 2-Medium Low Primary Care Provider: PCP: UNKNOWN PROVIDER Primary Medical Coverage: Medicare Part A Secondary Medical Coverage: N/A Hospital Follow-Up appointment(s) scheduling status: N/A - Currently anticipating facility / non-community discharge Inpatient Rehabilitation Facility [IRF] Prior Authorization Required? prior authorization NOT required (primary payor is either: Medicare A, Medicare Railroad, or traditional Medicaid) Needed Clarification/ Information / Documentation to complete IRF coordination: Current Physical Therapy documentation Current Occupational Therapy documentation Confirmed Discharge Date [facility] - New Referral - pending Required COVID testing: None required Contact or Liaison Name: Shelby Contact phone: [phone] Facility has Bette Garland 02/05/2024 @ 2:03 PM FORMS DESIGNER ([facility], ) Verified with RN, pt is now having hallucinations and talking tosomeone named Chiki and seeing a little boy. Confirmed with Shelby they cannot take pt while he is having hallucinations. I did inform her pt is very sleep deprived, only getting an hour or two of sleep a night. KYLE Laurent aware 02/05/2024 @ 12:03 PM FORMS DESIGNER ([facility], ) Spoke with Shelby and let her know speech and OT notes are charted for review. 02/03/2024 @ 1:55 PM FORMS DESIGNER ([facility], ) Spoke with Toyin who stated pt looks ok, but she will not be ableto get a final answer until pt is a bit more stable. Did let her know his diet has been advanced. We will touch base again in a day or two. KYLE Newman notified in person 02/03/2024 @ 9:00 AM FORMS DESIGNER ([facility], ) Spoke with Toyin who stated they are verifying pts insurance benefits. Referral still pending at this time. 02/03/2024 @ 8:48 AM FORMS DESIGNER ([facility], ) Left message for Toyin asking for referral update. 02/02/2024 @ 2:52 PM FORMS DESIGNER ([facility], ) Notified Shelby of referral via [employer] message 02/02/2024 @ 2:53 PM FORMS DESIGNER ([facility], ) Referral sent via [employer] S DESIGNER S DESIGNER * Plan of Care - Paula Klein, PT - 02/05/2024 1:30 PM CST Activity Recommendations: Recommendations for floor staff include up to chair and requires Minimal assist with Front Wheeled Walker and Gait belt. Activity recommendations communicated with RN. Discharge Recommendations: From a therapy perspective, at the time of discharge it appears that patient would benefit from Acute rehab due to decreased functional mobility. Therapist discussed this recommendation with RN. DME recommendations include:To be determined Assessment: Significant Physical Therapist findings with this patient include Weakness, Decreased endurance, Decreased strength, Decreased cognition, Impaired balance, and Impaired gait that leads to functional limitations including decreased ability to get in/out of bed, stand from bed or chair, ambulate household distances safely. This represents a functional decline that requires acute PT intervention. Patient will benefit fromPhysical Therapy to address these deficits during their hospitalization. Strengths of this patient include Family support. Anticipate patient will progress toward stated goals with therapeutic intervention. PT Plan of Care: Date of Initial Evaluation: 02/02/24 Patient to be seen by Physical Therapy. 3 to 4 x/week. Physical Therapy to address impairments and functional limitations. Treatments to include: Balance training, Endurance training, Gait, Mobility/Transfers, Neuro re-education, Safety, and Therex Precautions: Seizure, Fall, and Monitor Vitals Goals to be achieved by: 02/09/24 - Patient will perform supine-sit transfers with Minimal assist to be able to assist with positioning. - Patient will perform sit-stand transfers with least restrictive device and Minimal assist to be able to rise from chair. - Patient will ambulate with least restrictive device for 15 feet and Minimal assist to be able to facilitate patient access to bathroom. - Patient will demonstrate independence in therapeutic exercise program specific to relative impairments in order to optimize rehabilitation. - Patient will improve AM-PAC score to be greater than or equal to 17 points to indicate improved overall daily function. Patient stated goal: Do what I was doing Preferred Language Cymraes PHYSICAL THERAPY TREATMENT Subjective: Im moving not to bad for an old mateo. Observation: Pt was sitting in bedside chair on 2 L of O2 and blankenship in place. A&O x 3 but did display moments of confusion Pain: Location: chest, shoulder (0-10) Pain Rating: Rest: 8 (later reported to RN that pain was 5/10 and he needs medicine) (0-10) Pain Rating: Activity: 8 Transfers: ? Sit to Stand transfer with Minimal assist and 1 person + 1 person for equipment using Front Wheeled Walker and Gait belt. ? Stand to Sit transfer with Minimal assist and Verbal Cues and 1 person + 1 person for equipment using Front Wheeled Walker and Gait belt. Transfer Details: Pt needed verbal cues for transfers, and therapist assist to manage O2 tank. Pt given cues to slowly lower himself to chair, but was unable to control decent. Gait: Ambulated 30 ft x 2 feet with Minimal assist and 1 person + 1 person for equipment using Front Wheeled Walker and Gait belt Gait Details: Pt ambulated 30 ft x 2 with Min assist and 1 rest break on 3 L of O2. Therapist assisted with O2 tank and RN followed with wheelchair. O2 sats 91% and HR 131 after ambulation. Patient demonstrates progress towards goals as evidenced by participating in physical therapy . Outcome Measure Used: [facility] AM-PAC?6 Clicks?? Basic Mobility Inpatient Short Form How much help from another person does the patient currently need??? 1. Turning from your back to your side while in a flat bed without using bedrails? 3 A Little 2. Moving from lying on your back to sitting on the side of a flat bed without using bedrails? 3 A Little 3. Moving to and from a bed to a chair (including a wheelchair)? 3 A Little 4. Standing up from a chair using your arms (e.g. wheelchair or bedside chair)? 3 A Little 5. To walk in hospital room? 2 A Lot 6. Climbing 3-5 steps with a railing? 1 Unable Raw Score 15 16 or Less = predictive of discharge to an institutional setting. 17-24 = predictive of discharge to home lennox Farias. Association of A-PAC ???6 Clicks?? Basic Mobility and Daily Activity Scores with Discharge Destination. PTJ. March 2020 Education Provided: benefits of PT, safety, bed alarms Eval /Treat Visit and Timing Start Time: 1330 Stop Time: 1345 Time Calculation (min): 15 min Type of visit: Treatment Treatment Type: Gait Training Gait Training Time Entry: 15 All charges today are appropriate and separate from each other. Patient left up in chair with alarm on and call light in reach. Next session plan to progress patient as tolerated. GRIFFIN MONTE, Student I have read and agree with student documentation by SAHRA Packer on this date. Review of documentation includes Note, Doc flow sheet and associated functions to support documentation. PAULA GÓMEZ PT S DESIGNER S DESIGNER S DESIGNER * Interdisciplinary - Isabel Henriquez RN - 02/05/2024 12:15 PM FORMS DESIGNER Patient has been in and out of confusion today and has also had a couple episodes of hallucination.He was talking to someone name Chiki, but when I told him Chiki wasn't there, he was easily reoriented to reality and admitted that he is confused to day. S DESIGNER * Plan of Care - Deny Stokes, MS CCC-BUSINESS TECHNOLOGY TEACHER - 02/05/2024 10:57 AM FORMS DESIGNER Speech Pathology Modified Barium Swallow Study Diagnosis: Dysphagia Referring Physician: Glen Attending Radiologist: Mercedes Pre/Post Pain: 0/ 0 Patient was referred for modified barium swallow study with speech pathology from internal med service with much appreciation. Primary reason for assessment study for comprehensive exam of swallow physiology. Reported onset date: 01/25/24. Respiratory status: room air HPI: Patient presented to ED on 01/25/2024 with initial complaint for altered mental status after being found by family. Patient had recent move from [place] after of spouse, lives with children. During ED work up, patient had witnessed seizure, lost pulse, underwent approximately three minutes of CPR and emergently intubated. Initial head CT unremarkable for acute process. CTA negative for acute process. Initial work up for cardiac arrest, sepsis possible lung v urine source, NSTEMI, concerns for aspiration v CAP, breakthrough seizure. Patient extubated on 01/29/24 with transfer to nasal cannula at 3L. Patient was seen by Speech Pathology service with clinical swallow evaluation with recommendations for modified diet and liquid textures with noted global strength deficit. BUSINESS TECHNOLOGY TEACHER requested swallow study due to persistent evidence of dysphagia and poor endurance during oral intake PMH: Patient has a past medical history of A-fib (HCC), Aortic valve stenosis, BPH (benign prostatic hyperplasia), CAD (coronary artery disease), Chronic diastolic heart failure ([facility]), COPD (chronic obstructive pulmonary disease) ([facility] CVA (cerebral vascular accident) ([facility]), DM type 2 (diabetes mellitus, type 2) ([facility]), HLD (hyperlipidemia), SD (myocardial infarction) ([facility]), Mitral valve stenosis, Pulmonary HTN ([facility]), Seizures ([facility]), and TIA (transient ischemic attack). Current (pre-evaluation) Intake/Diet: Route: PO Diet Grade: IDDSI 6/Soft and Bite Sized Liquid Consistencies: IDDSI 2/Mildly thick liquids/[place] thick Pre-Study Functional Oral Intake Scale (FOIS): 5- total oral diet with multiple consistencies but requiring special preparation or compensations Patient/Caregiver Goal or Patient Reported Outcome: I gotta work on Patient was positioned in a seated right lateral position at 70-90 degrees. Commercially prepared, standardized Barium Viscosities were used and graduated from thin liquid to pudding consistency; administered via teaspoon, 5 ml boluses and by cup or straw in single & sequentially swallowed boluses, as tolerated; Solid evaluated with ?? shortbread cookie/3ml barium pudding coating, as tolerated. Medication was evaluated via barium tablet with free water, as tolerated. MBSImP I.D.:[id number] Objective: Oral mechanism exam revealed full dentures in place. No overt evidence of structural abnormality orstrength deficit. MBS Impairment Profile (MBSImP): Oral phase: Lip closure for intraoral bolus containment resulted in interlabial escape, without progression to the anterior lip. Tongue control during bolus hold allowed posterior escape of greater than half of the bolus. Bolus preparation and mastication could not be assessed; solid not given due to logistical reasons or safety concerns unrelated to oral impairment. Bolus transport/lingual motion was with slowed tongue motion. Oral residue was a trace, lining oral structures. Pharyngeal phase: Initiation of the pharyngeal swallow occurred when the bolus head was in the pyriform sinuses. Softpalate elevation resulted in no bolus between the soft palate and the pharyngeal wall. Laryngeal elevation demonstrated complete superior movement of the thyroid cartilage with complete approximationof the arytenoids to the epiglottic petiole. Anterior hyoid excursion demonstrated no movement. Epiglottic movement resulted in partial inversion. Laryngeal vestibular closure was incomplete, with a narrow column of air/contrast noted within the laryngeal vestibule at the height of the swallow. Penetration with aspiration evident during the swallow with 5ml thin liquids trials and latent aspiration from pharyngeal residue after the swallow. Pharyngeal stripping wave was present, but diminished.Pharyngeal contraction could not be determined due to logistical reasons not related to physiologicimpairment. Pharyngoesophageal segment opening demonstrated partial distension/partial duration, with partial obstruction of bolus flow. Tongue base retraction allowed a wide column of contrast or air between the retracted tongue base and the posterior pharyngeal wall. Pharyngeal residue was a collection of residue within or on pharyngeal structures. Esophageal phase: Esophageal clearance in the upright position was complete, with only a coating of contrast, if any. COMPONENT Number and Descriptor Scale Current Score and Descriptor 1- Lip Closure (0-4) 1- Interlabial escape; no progression to anterior lip 2-Tongue Control/Bolus Hold (0-3) 3- Posterior escape of more than half of bolus 3-Bolus Prep/Mastication (0-3) Solid not given due to logistical reasons or safety concerns unrelated to oral impairment 4-Bolus Transport/Lingual Motion (0-4) 2- Slowed tongue motion 5-Oral Residue (0-4) 1- Trace residue lining oral structures 6-Initiation of Pharyngeal Swallow (0-4) 3- bolus head in pyriforms 7-Soft Palate Elevation (0-4) 0- No bolus between soft palate and pharyngeal wall 8-Laryngeal Elevation (0-3) 0- Complete superior movement of the thyroid cartilage with complete approximation of arytenoids to epiglottic petiole 9- Anterior Hyoid Excursion (0-2) 2- No anterior movement 10-Epiglottic Movement (0-2) 1-Partial inversion 11- Laryngeal Vestibular Closure (0-2) 1- Incomplete; narrow column of air/contrast in laryngeal vestibule 12- Pharyngeal Stripping Wave (0-2) 1- Present- diminished 13- Pharyngeal Contraction (0-3) No A/V view completed this exam 14- Pharyngoesophageal Segment Opening (0-3) 1- Partial distension/partial duration; partial obstruction of flow 15-Tongue Base Retraction (0-4) 3- Wide column of contrast of air between tongue base and pharyngeal wall 16-Pharyngeal Residue (0-4) 2- collection of residue within or on pharyngeal structures 17-Esophageal Clearance (upright) (0-4) 1- Esophageal retention Oral Impairment Score: 8 (absence of score, component 3) Pharyngeal Impairment Score: 11 (absence of score, component 13) Esophageal Impairment Score: 0 Clinical Assessment: Abnormal study. Patient presented with global strength deficit and impaired swallow timing resultedin consistent penetration with aspiration DURING the swallow with thin liquids and AFTER the swallow from pharyngeal stasis. Suspect global debility from medical status, emergent intubation. Recommend modified diet and liquid textures with intensive skilled intervention for roman catholic of baseline function. Recommendations: Route of Intake: PO Diet Recommendations: : IDDSI 5/Moist and Minced Liquids Recommendations: IDDSI 2/Mildly thick liquids/[place] thick Meds Delivery Recommendations: Crush, In puree Post Study Functional Oral Intake Scale (FOIS): 5- total oral diet with multiple consistencies but requiring special preparation or compensations Education regarding findings from today's study and plans for therapy were provided to patient through verbal instruction. Understanding was expressed by the patient; but further reinforcement warranted.. Follow up/Compensatory Strategies: The following compensatory strategies should be part of the patient???s therapy/management plan to reduce risk of aspiration and alleviate dysphagia: 1. Upright for oral intake 2. Slow rate of oral intake 3. Prompt additional swallows, throat clear and cough 4. Aggressive oral care Prognosis for Improvement: The prognosis for the patient to meet nutritional needs by mouth is goodbased on degree of impairment, stimulability for treatment, baseline medical condition. Thank you for your referral to [facility]. For further inquiry, please contacta Speech Pathologist at . DENY STOKES MS CCC-BUSINESS TECHNOLOGY TEACHER Speech Language Pathologist [facility]istered [facility] Time In:1015 Time Out:1053 Time spent with patient:38m S DESIGNER * Interdisciplinary - Isabel Henriquez RN - 02/05/2024 9:55 AM CST Patient went downstairs via wheelchair for a swallow study. S DESIGNER * Zheng - Isabel Henriquez RN - 02/05/2024 9:32 AM CST Patient is up in chair after working with occupational therapy. Tolerating well. Vitals stable per flowsheet. S DESIGNER * Plan of Care - Gail Loredo OT - 02/05/2024 9:14 AM CST Activity Recommendations: Recommendations for floor staff include transfer to recliner and ambulate to the bathroom with mod assist to come to standing and min assist for mobility with w/walker. Activity recommendations communicated with RN and on white board. Discharge Recommendations: From a therapy perspective, at the time of discharge it appears that patient would benefit from acute rehab due to decreased independence with ADL and transfers. Therapist discussed this recommendation with patient and RN. DME recommendations include:w/walker Assessment: Significant occupational therapist findings with this patient include Weakness, Decreased endurance, Decreased strength, Decreased range of motion, Decreased cognition, Impaired balance, Impaired coordination, and Decreased cardiopulmonary endurance that leads to functional limitations including dec reased ability to transfer to recliner. This represents a functional decline that requires acute OT intervention. Patient will benefit fromoccupational therapy to address these deficits during their hospitalization. Strengths of this patient include Family support, Good participation/motivation, and Independent prior to admission. Anticipate patient will progress toward stated goals with therapeutic intervention. OT Plan of Care Date of Initial Evaluation: 01/30/24 Patient to be seen by Occupational Therapy 3 to 4 x/week to address impairments and functional limitations. Treatments to include: Self care retraining, Balance training, Cognition, Therapeutic activities, Endurance training, Mobility/Transfers, Safety, and Therapeutic exercise Precautions: Fall, Monitor Vitals, and safety Goals to be achieved by: 02/06/24 - Patient will perform bed mobility with Moderate assist to be able to assist with positioning. Goal met, 02/05/24, GABRIEL - Patient will perform self care transfers chair and commode with Moderate assist to decrease burden of caregiver assist. Goal met, 02/05/24, GABRIEL - Patient will demo F balance for toileting tasks. Goal met, 02/05/24, GABRIEL - Patient will participate in therapeutic exercise to increase bilateral upper extremity strength and activity tolerance. - Patient will participate in fine and gross motor activities to improve motor planning skills in bilateral upper extremity for dressing. - Patient will improve AM-PAC score to be greater than or equal to 20 points to indicate improved overall daily function. Patient stated goal: unable to state Preferred Language Cymraes OT TREATMENT NOTE Subjective: I didn't sleep much . Observations: Patient was seen sitting up in recliner. Medical equipment includes SpO2=. 90% on 2L of O2 Pain: (0-10) Pain Rating: Rest: 8 (0-10) Pain Rating: Activity: 8 Treatment: Self Cares: ? Grooming: oral hygiene at Chair with Stand by assist with Set up . Self Care Details: set up required to retrieve items Bed Mobility: ? Supine to Sit: Minimal assist with Set up and Verbal Cues using Bed Rails and Head of Bed Elevated . Bed Mobility Details: Verbal cues to reach for bed rail Transfers: ? Sit to Stand transfer with Moderate assist and Set up and Verbal Cues using Front Wheeled Walker and Gait belt. ? Stand to Sit transfer with Minimal assist and Set up and Verbal Cues using Front Wheeled Walker and Gait belt. ? Bed to chair transfer with Moderate assist and Set up and Verbal Cues using Front Wheeled Walker and Gait belt. ? Bed to Wheelchair transfer with Minimal assist and Set up and Verbal Cues using Front Wheeled Walker and Gait belt. Transfer Details: Verbal cues for correct sequencing for optimal walker safety. Theract: Patient ambulated 35 ft x 2 with min assist and chair to follow. O2 increased to 3 L and patient required 2 sitting rest breaks. SpO2= 90% after activity on 3 L of O2 Cognition: Oriented person, place, date and situation Education Provided: ADL, functional mobility, transfers, call light Patient demonstrates progress towards goals as evidenced by improved participation in areas mentioned above. Outcome Measure: [place] AM-PAC 6 Clicks Daily Activity How much help from another person does the patient currently need ??? 1.Putting on and taking off lower body clothing? 2 A Lot 2. Bathing (including washing, rinsing, drying?) 2 A Lot 3. Toileting, which includes using toilet, bedpan or urinal? 2 A Lot 4. Putting on and taking off regular upper body clothing? 3 A Little 5. Taking care of personal grooming such as brushing teeth? 3 A Little 6. Eating meals? 4 None Raw Score 16 18 or Less= predictive of discharge to institutional setting 19-24 predictive of discharge to home actual discharge disposition may be impacted by other factors Juni Ahumada at al. Association of A-PAC ???6 Clicks?? Basic Mobility and Daily Activity Scores with Discharge Destination. PTJ. March 2020 Patient taken to swallow test in w/c. OT Eval /Treat Visit and Timing Start Time: 910 Stop Time: 952 Time Calculation (min): 42 min OT Received On: 01/30/24 Type of visit: Treatment Treatment Type: ADL/Self-Care training Self Care/Home Management (ADLs) Time Entry: 17 Therapeutic Activity Time Entry: 25 All charges today are appropriate and separate from each other. Next session plan to continue per POC. GAIL LOREDO OT S DESIGNER * Interdisciplinary - Chata Morrell, MOVIE SHOT CAMERA OPERATOR - 02/05/2024 8:15 AM CST Respiratory Therapy Assessment And Education Points 0 1 2 3 4 Score Pulmonary History No Smoking Smokes <1 ppd Smokes 1 ppd or more Pulmonary impairment (acute or chronic) Severe or Chronic exacerbation 3 Surgical Status None General Surgery Lower Abdominal Surgery Thoracic or Upper Abdominal Surgery Thoracic with Pulmonary Disease 0 CXR (from last 24 hrs) Clear Unavailable Infiltrates, Atelectasis or Pleural effusion Infiltrates in more than 1 lobe Infiltrates plus Atelectasis or Pleural effusion 1 Respirations Regular Pattern, RR 8-20 Increased, RR 21-25 Dyspnea on exertion, irregular pattern, RR 26-30 Use of accessory muscles, prolonged expiration, RR 31-35 Severe SOB with use of accessory muscles, RR >35 0 BS Clear Diminished Unilaterally Diminished Bilaterally Crackles in Bases Wheezing and/or Rhonchi 4 Cough Strong, Non- productive cough Strong, productive cough Weak, Non- productive cough Weak, productive cough No cough, may require suctioning 0 Mental status Alert and oriented Lethargic, follows commands Confused, does not follow commands Obtunded Comatose 0 Level of Activity Ambulatory Ambulatory with assistance Temporarily non-Ambulatory Bed rest, able to position self Bed rest, unable to position self 1 O2 required to keep SpO2 >=92% (or ordered goal) None 1-3 L/M or FiO2 25-35% 4-6 L/M or FiO2 35-50% >50% 100% 1 Total Score 10 Treatment Scoring Guide Frequency Utilize ORDER SET for all changes Severity Level 5 > 20 points Q2 and Q4 Albuterol Q2 and Ipratropium Q4 *Discontinue previous orders* Severity Level 4 16-20 points Q4 and PRN Duoneb Q4 and Albuterol Q2 PRN *Discontinue previous orders* Severity Level 3 11-15 points QID and PRN Duoneb QID and Albuterol Q4 PRN *Discontinue previous orders* Severity Level 2 6-10 points TID and Q6 PRN Albuterol only *Discontinue previous orders* Severity Level 1 0-5 points Q6 PRN Albuterol only *Discontinue previous orders* Home Regimen Home medication orders As per reconciled home medications Patient RTA Severity Level Is: level 2 Patient Progression Since Admission: not changed Treatment Plan Adjusted: No: Education Documented (within Education Tab): Yes Education Provided To: patient Comments: By: CHATA MORRELL CRT; 02/05/2024, 8:15 AM FORMS DESIGNER S DESIGNER * Interdisciplinary - Isabel Henriquez RN - 02/05/2024 7:09 AM CST Report received from SABRINA Hunter. Assumed patient care at this time. Patient A&Ox3. Vital signsper flowsheet. IV drip rates verified. Call light in reach, alarms on. No acute distress noted. Patient updated to plan of care. BSSR completed and 2 RN skin assessment completed. Patient turned and repositioned. S DESIGNER * Plan of Care - Elsa Weaver RN - 02/05/2024 4:24 AM CST Problem: Adult Inpatient Plan of Care Goal: Plan of Care Review Outcome: Ongoing (see interventions/notes) Flowsheets (Taken 02/05/2024 0418) Plan of Care Reviewed With: patient Progress: progress toward functional goals as expected Today's Goal: A&O x 3-4 Outcome Evaluation: Patient A&O x 1-2 throughout the night. Patient reports not sleeping more than a couple of hours at a time since his admission to the hospital. Seroquel started yesterday to help manage sleeplessness and impulsive behaviors. Patient slept approximately 2 hours and has been awake since 2229. Patient states, I just need to get some sleep. Ten hours is what I need and I'll be back to normal. Sleep hygiene promoted. Does the patient need assistance with discharge and/or transitioning to the next level of care?: Yes, case management already following Goal: Optimal Comfort and Wellbeing Outcome: Ongoing (see interventions/notes) Intervention: Monitor Pain and Promote Comfort Flowsheets (Taken 02/04/2024 2236) Pain Management Interventions: pain medication given pain management plan reviewed with patient/caregiver pillow support provided relaxation techniques promoted quiet environment facilitated position adjusted care clustered Intervention: Provide Person-Centered Care Flowsheets (Taken 02/04/20241903) Trust Relationship/Rapport: care explained choices provided emotional support provided empathic listening provided questions answered questions encouraged reassurance provided respect patient/family decisions provided safe/supportive environment facilitated nonverbal communication acknowledged therapeutic presence provided thoughts/feelings acknowledged Goal: Readiness for Transition of Care Outcome: Ongoing (see interventions/notes) Problem: Skin Injury Risk Increased Goal: Skin Health and Integrity Outcome: Ongoing (see interventions/notes) Intervention: Optimize Skin Protection Flowsheets Taken 02/05/2024 0300 Head of Bed (HOB) Positioning: HOB at 60-90 degrees Taken 02/04/2024 1904 Activity Management: activity adjusted per tolerance Pressure Reduction Techniques: frequent weight shift encouraged heels elevated off bed Pressure Reduction Devices: pressure-redistributing mattress utilized Skin Protection: incontinence pads utilized skin sealant/moisture barrier applied transparent dressing maintained Problem: Fall Injury Risk Goal: Absence of Fall and Fall-Related Injury Outcome: Ongoing (see interventions/notes) Intervention: Identify and Manage Contributors Flowsheets (Taken 02/04/2024 190) Medication Review/Management: medications reviewed Self-Care Promotion: independence encouraged BADL personal objects within reach meal set-up provided Intervention: Promote Injury-Free Environment Flowsheets (Taken 02/04/2024 190) Safety Promotion/Fall Prevention: bed alarm fall reduction program maintained lighting adjusted for task/safety low bed nonskid shoes/slippers when out of bed room near unit station Problem: Functional Deficit Goal: Improved Balance and Postural Control Outcome: Ongoing (see interventions/notes) Intervention: Optimize Balance and Safe Activity Flowsheets (Taken 02/04/2024 190) Activity Management: activity adjusted per tolerance Safety Promotion/Fall Prevention: bed alarm fall reduction program maintained lighting adjusted for task/safety low bed nonskid shoes/slippers when out of bed room near unit station Self-Care Promotion: independence encouraged BADL personal objects within reach meal set-up provided Goal: Optimal Cognitive Function Outcome: Ongoing (see interventions/notes) Intervention: Optimize Cognitive Function Flowsheets (Taken 02/04/20241903) Sensory Stimulation Regulation: care clustered quiet environment promoted Self-Care Promotion: independence encouraged BADL personal objects within reach meal set-up provided Goal: Optimal Coordination Outcome: Ongoing (see interventions/notes) Intervention: Optimize Motor Coordination and Function Flowsheets (Taken 02/04/20241903) Self-Care Promotion: independence encouraged BADL personal objects within reach meal set-up provided Goal: Improved Muscle Strength Outcome: Ongoing (see interventions/notes) Intervention: Optimize Muscle Strength Flowsheets (Taken 02/04/20241903) Activity Management: activity adjusted per tolerance Activity Assistance Provided: assistance, 2 people Self-Care Promotion: independence encouraged BADL personal objects within reach meal set-up provided Goal: Improved Muscle Tone Outcome: Ongoing (see interventions/notes) Goal: Optimal Range of Motion Outcome: Ongoing (see interventions/notes) Intervention: Maintain Functional Joint Range Position Flowsheets (Taken 02/05/2024 0300) Positioning/Transfer Devices: pillows in use Goal: Compensation for Sensory Deficit Outcome: Ongoing (see interventions/notes) Intervention: Optimize Sensory Function Flowsheets (Taken 02/04/20241903) Pressure Reduction Techniques: frequent weight shift encouraged heels elevated off bed Skin Protection: incontinence pads utilized skin sealant/moisture barrier applied transparent dressing maintained Problem: Confusion Acute Goal: Optimal Cognitive Function Outcome: Ongoing (see interventions/notes) Intervention: Minimize Contributing Factors Flowsheets (Taken 02/04/20241903) Communication Support Strategies: active listening utilized nonverbal strategies used one-step directions provided Sensory Stimulation Regulation: care clustered quiet environment promoted Reorientation Measures: clock in view reorientation provided Problem: Violence Risk or Actual Goal: Anger and Impulse Control Outcome: Ongoing (see interventions/notes) Intervention: Minimize Safety Risk Flowsheets Taken 02/04/20241903 Sensory Stimulation Regulation: care clustered quiet environment promoted Enhanced Safety Measures: bed alarm set room near unit station Taken 01/26/2024 0458 De-Escalation Techniques: increased round frequency reoriented stimulation decreased Intervention: Promote Self-Control Flowsheets (Taken 02/04/20241903) Supportive Measures: active listening utilized relaxation techniques promoted Environmental Support: calm environment promoted S DESIGNER * PatientPass Patient Instructions - Elsa Weaver RN - 02/05/2024 3:44 AM CST Images from the original note were not included. Patient Education Table of Contents Dysphagia Eating Plan, Bite Size Food Thickening Liquids for Dysphagia Diet To view videos and all your education online visit, [email or web address] or scan this QR code with your smartphone. Access to this content will in one year. Dysphagia Eating Plan, Bite Size Food This diet is recommended for people who are not able to bite pieces of food but are able to chew. You may need this diet if you have weakness of the muscles that control swallowing, you have an increased risk of choking, or you suffer from fatigue when chewing. Foods in the diet are soft, tender, and moist. Work with your health care provider, your diet and livestock nutrition territory manager (dietitian), or speech-language pathologist to make sure you are following the eating plan safely and getting all the nutrientsyou need. What are tips for following this plan? Cooking To moisten foods, add liquids while you are blending, mashing, or grinding your foods to the right consistency. These liquids include gravies, sauces, vegetable or fruit juice, milk, half and half, or water. Strain extra liquid from foods before eating. Reheat foods slowly to prevent a tough crust from forming. Prepare foods in advance. Meal planning Eat a variety of foods to get all the nutrients you need. Some foods may be tolerated better than others. Work with your speech-language pathologist to identify which foods are safest for you to eat. Follow your meal plan as told by your dietitian. General information You may eat foods that are tender, soft, and moist. Always test food texture before taking a bite. Poke food with a fork or spoon to make sure it is tender. The test sample should squash, break apart, or change shape, and it should not return to its original shape when the fork or spoon is removed. Food should be easy to cut and chew. Avoid large pieces of food that require a lot of chewing. Take small bites. Each bite should be smaller than your thumbnail (about 15 mm by 15 mm for adults and 8mm by 8 mm for children). If you were on a pureed or minced food eating plan, you may eat any of the foods included in those diets. Avoid foods that are very dry, hard, sticky, chewy, coarse, or crunchy. If instructed by your health care provider, thicken liquids. Follow your health care provider's instructions for what products to use, how to do this, and to what thickness. What foods should I eat? Fruits Canned or cooked fruits that are soft or moist and do not have skin or seeds. Fresh, soft bananas. Vegetables Soft, well-cooked vegetables in small pieces. Soft-cooked, mashed potatoes. Grains Moist breads without nuts or seeds. Biscuits, muffins, pancakes, and waffles that are well-moistened with syrup, jelly, margarine, or butter. Cooked cereals. Moist bread stuffing. Moist rice. Well-moistened cold cereal with small chunks. Well-cooked pasta, noodles, and rice in small pieces and thick sauce. Soft dumplings or spaetzle in small pieces and butter or gravy. Meats and other proteins Tender, moist meats or poultry in small pieces. Moist meatballs or meatloaf. Fish without bones. Eggs or egg substitutes in small pieces. Tofu. [place] and meat alternatives in small pieces. Well-cooked, tender beans, peas, baked beans, and other legumes. Dairy Milk. Cream cheese. Yogurt. Cottage cheese. Sour cream. Small pieces of soft cheese. Fats and oils Butter. Oils. Margarine. Mayonnaise. Gravy. Spreads. Sweets and desserts Soft, smooth, moist desserts. Pudding. Custard. Moist cakes. Jam. Jelly. Honey. Preserves. Ask yourhealth care provider whether you can have frozen desserts. Seasonings and other foods All seasonings and sweeteners. All sauces with small chunks. Prepared tuna, egg, or chicken salad without raw fruits or vegetables. Moist casseroles with small, tender pieces of meat. Soups with tender meat. The items listed above may not be a complete list of foods and beverages you can eat. Contact a dietitian for more information. What foods should I avoid? Fruits Hard, crunchy, stringy, high-pulp, and juicy raw fruits such as apples, pineapple, papaya, and watermelon. Small, round fruits, such as grapes. Dried fruit and fruit leather. Vegetables All raw vegetables. Cooked corn. Rubbery or stiff cooked vegetables. Stringy vegetables, such as celery. Tough, crisp fried potatoes. Potato skins. Grains Coarse or dry cereals. Dry breads. [place]. Crackers. Tough, crusty breads, such as [place] bread and baguettes. Dry pancakes, waffles, and muffins. Sticky rice. Dry bread stuffing. Granola. Popcorn. Chips. Meats and other proteins Large pieces of meat. Dry, tough meats, such as sancehz, sausage, and hot dogs. Chicken, turkey, or fish with skin and bones. Crunchy peanut butter. Nuts. Seeds. Nut and seed butters. Dairy Yogurt with nuts, seeds, or large chunks. Large chunks of cheese. Sweets and desserts Dry cakes. Chewy or dry cookies. Any desserts with nuts, seeds, dry fruits, coconut, pineapple, or anything dry, sticky, or hard. Chewy caramel. Licorice. Taffy-type candies. Ask your health care provider whether you can have frozen desserts. Seasonings and other foods Soups with tough or large chunks of meats, poultry, or vegetables. [place] or clam chowder. Smoothies with large chunks of fruit. The items listed above may not be a complete list of foods and beverages you should avoid. Contact a dietitian for more information. Summary Bite-size foods can be helpful for people with swallowing problems. On this dysphagia eating plan, you may eat foods that are soft, moist, and cut into pieces smaller than your thumbnail (about 15 mm by 15 mm for adults and 8mm by 8 mm for children). You may be instructed to thicken liquids. Follow your health care provider's instructions about howto do this and to what consistency. This information is not intended to replace advice given to you by your health care provider. Make sure you discuss any questions you have with your health care provider. Document Released: 2006-01-27 Document Updated: 2022-03-21 Document Reviewed: 2022-03-21 [employer] Patient Education ? 2023 [employer] Thickening Liquids for Dysphagia Diet If you are on a dysphagia diet, you may need to thicken liquids, including drinks, soups, and foodsthat melt at room temperature. Thickening liquids makes them safer to swallow and allows you to have better control when swallowing if you are at risk of choking on thinner liquids. It also reduces the risk of liquid traveling to your lungs. Follow instructions from your health care provider, livestock nutrition territory manager (dietitian), or speech-language pathologist about: How to thicken your liquids. What thickness, or consistency, you should thicken your liquids to. How long you need to thicken liquids. How to thicken a liquid To thicken a liquid, you will need to add a commercial food thickening product or a soft food to the liquid until it reaches the desired consistency. Liquid consistencies include: Thin and slightly thick. These liquids include most drinks, such as water, milk, tea, soda, juice, and carbonated drinks. They also include broth-based soups as well as melted ice cream, sherbet, sorbet, and ice pops. Slightly thick liquids are thicker than water and will flow a little slower than thin liquids. Mild to moderately thick. This includes nectar-like liquids, such as maple syrup and creamy soup, and honey-like liquids. These liquids are thicker, but they can still be sipped through a straw. Extremely thick. Also called spoon-thick, these liquids are thick like pudding. They do not keep their shape or stay in a mound when put on a plate or bowl. Thickening a liquid with a commercial food and beverage thickener A commercial food and beverage thickener is a powder or gel that makes a food or beverage thicker. You can buy thickeners at pharmacies, medical supply stores, some grocery stores, and online. They can be added to both hot and cold liquids and do not change the taste of the liquid. Ask your health care provider, dietitian, or speech-language pathologist for a complete list of commercial thickeners. Each thickening product is different. Some need to be blended into a liquid with a relish blender, while others can be stirred into a liquid with a fork or spoon. To thicken a liquid using a thickening product, follow the instructions on the product label. Thickening a liquid with soft foods Some liquids such as soups, casseroles, and gravies can be thickened with soft foods. Soft foods include: Baby cereal. Gravy powder. Mashed potato. Pureed baby food. Instant potato flakes. Powdered sauce mixes, such as cheese mixes. Flour or corn starch. To thicken a liquid using one of these soft food items, stir or mix the soft food into the liquid until it reaches the desired thickness. Start with a small amount and make adjustments as necessary. Note that flour and corn starch work best with warm liquids, such as broth. To thicken a liquid withflour or corn starch: 1. Make a paste out of the flour and water. Cook or warm the liquid and add the paste to it. Stir until the mixture thickens. General recommendations Take thickeners with you when eating out or traveling. If a liquid gets too thick, add more of the thinner liquid until the desired consistency is reached. Consider purchasing premade thickened drinks. Consider using a thickening product to make your own frozen desserts. See your health care provider, dietitian, or speech-language pathologist regularly for help with your dietary changes. Summary Thickening liquids makes them safer to swallow and allows you to have better control when swallowing. Follow instructions from your health care provider, dietitian, or speech- language pathologist abouthow to thicken your liquids. You can thicken a liquid using a commercial thickening product or by adding a soft food to the liquid until it reaches the desired consistency. This information is not intended to replace advice given to you by your health care provider. Make sure you discuss any questions you have with your health care provider. Document Released: 2012-07-28 Document Updated: 2022-03-21 Document Reviewed: 2022-03-21 [employer] Patient Education ? 2023 [employer] S DESIGNER * Interdisciplinary - Elsa Weaver RN - 02/04/2024 11:57 PM CST The patient called this RN to bedside and asked for a ham sandwich. I educated patient on current diet restrictions, and patient asked if he could have tomato soup. Patient given tomato soup with nectar thick consistency, per diet recommendations. Patient consumed approximately 60 mL of soup and started to desaturate. He had an audible wet and gurgly cough. RTMargo, called to bedside to assist with NT suctioning. Patient cooperated and returned to baseline. Liquids removed from the bedside toensure adequate supervision during intake. No acute distress noted at this time. S DESIGNER * Plan of Care - Gail Lopez RN - 02/04/2024 5:22 PM CST Problem: Adult Inpatient Plan of Care Goal: Plan of Care Review Outcome: Ongoing (see interventions/notes) Flowsheets Taken 02/04/2024 1721 by GAIL Progress: progress toward functional goals as expected Outcome Evaluation: pt has been oriented x3 most of the day, this evening he is confused. spo2 >88% on 3L o2 Taken 02/01/2024 0454 by ELSA Today's Goal: SpO2>88 Does the patient need assistance with discharge and/or transitioning to the next level of care?: Yes, case management already following Taken 01/31/2024 0536 by ELSA Plan of Care Reviewed With: patient Goal: Optimal Comfort and Wellbeing Outcome: Ongoing (see interventions/notes) Goal: Readiness for Transition of Care Outcome: Ongoing (see interventions/notes) Problem: Skin Injury Risk Increased Goal: Skin Health and Integrity Outcome: Ongoing (see interventions/notes) Problem: Fall Injury Risk Goal: Absence of Fall and Fall-Related Injury Outcome: Ongoing (see interventions/notes) Problem: Stroke, Ischemic (Includes Transient Ischemic Attack) Goal: Optimal Coping Outcome: Ongoing (see interventions/notes) Goal: Effective Bowel Elimination Outcome: Ongoing (see interventions/notes) Goal: Optimal Cerebral Tissue Perfusion Outcome: Ongoing (see interventions/notes) Goal: Optimal Cognitive Function Outcome: Ongoing (see interventions/notes) Goal: Improved Communication Skills Outcome: Ongoing (see interventions/notes) Goal: Optimal Functional Ability Outcome: Ongoing (see interventions/notes) Goal: Optimal Nutrition Intake Outcome: Ongoing (see interventions/notes) Goal: Effective Oxygenation and Ventilation Outcome: Ongoing (see interventions/notes) Goal: Improved Sensorimotor Function Outcome: Ongoing (see interventions/notes) Goal: Safe and Effective Swallow Outcome: Ongoing (see interventions/notes) Goal: Effective Urinary Elimination Outcome: Ongoing (see interventions/notes) Problem: Functional Deficit Goal: Improved Balance and Postural Control Outcome: Ongoing (see interventions/notes) Goal: Optimal Cognitive Function Outcome: Ongoing (see interventions/notes) Goal: Optimal Coordination Outcome: Ongoing (see interventions/notes) Goal: Improved Muscle Strength Outcome: Ongoing (see interventions/notes) Goal: Improved Muscle Tone Outcome: Ongoing (see interventions/notes) Goal: Optimal Range of Motion Outcome: Ongoing (see interventions/notes) Goal: Compensation for Sensory Deficit Outcome: Ongoing (see interventions/notes) Problem: Confusion Acute Goal: Optimal Cognitive Function Outcome: Ongoing (see interventions/notes) Problem: Violence Risk or Actual Goal: Anger and Impulse Control Outcome: Ongoing (see interventions/notes) S DESIGNER * Zheng - Paty Redding - 02/04/2024 10:06 AM CST Case Management 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 No Summary: Decision Maker: Patient is assumed to be the medical decision maker Telephoto Installer/Surgery Teacher Name: Marvin Joseph Met with Papito and introduced self and role and discussed plan of care. Referral to [facility] remains pending at this time. They are following/considering, but are wanting to see how he does with oral intake and therapy over next couple days. No authorization would be required. Plan of Care:(Problem/ situation/ barrier + goals/ milestones + interventions + evaluation of progress = Plan of Care) Papito's primary medical problem this hospitalization is Cardiopulmonary arrest with successful resuscitation (HCC). Hospital Plan: IV keppra, PO prednisone, 3L O2, BiPap at night Anticipated Discharge Plan: Inpatient Rehabilitation Facility (IRF) Family/ Caregiver's readiness, willingness and ability to support patient with anticipated community discharge plan: Did not speak with family/caregiver during this contact. IM Letter Documentation, if applicable Medicare Notice Given to Responsible Democrat: Yes, in person Date Form Given to Patient/Responsible Democrat: 01/26/24 No new referrals or updates for post-acute hospital services. S DESIGNER * Interdisciplinary - Courtney Alexis, CLARISA - 02/04/2024 7:56 AM CST Respiratory Therapy Assessment And Education Points 0 1 2 3 4 Score Pulmonary History No Smoking Smokes <1 ppd Smokes 1 ppd or more Pulmonary impairment (acute or chronic) Severe or Chronic exacerbation 3 Surgical Status None General Surgery Lower Abdominal Surgery Thoracic or Upper Abdominal Surgery Thoracic with Pulmonary Disease 0 CXR (from last 24 hrs) Clear Unavailable Infiltrates, Atelectasis or Pleural effusion Infiltrates in more than 1 lobe Infiltrates plus Atelectasis or Pleural effusion 1 Respirations Regular Pattern, RR 8-20 Increased, RR 21-25 Dyspnea on exertion, irregular pattern, RR 26-30 Use of accessory muscles, prolonged expiration, RR 31-35 Severe SOB with use of accessory muscles, RR >35 0 BS Clear Diminished Unilaterally Diminished Bilaterally Crackles in Bases Wheezing and/or Rhonchi 2 Cough Strong, Non- productive cough Strong, productive cough Weak, Non- productive cough Weak, productive cough No cough, may require suctioning 0 Mental status Alert and oriented Lethargic, follows commands Confused, does not follow commands Obtunded Comatose 0 Level of Activity Ambulatory Ambulatory with assistance Temporarily non-Ambulatory Bed rest, able to position self Bed rest, unable to position self 1 O2 required to keep SpO2 >=92% (or ordered goal) None 1-3 L/M or FiO2 25-35% 4-6 L/M or FiO2 35-50% >50% 100% 1 Total Score 8 Treatment Scoring Guide Frequency Utilize ORDER SET for all changes Severity Level 5 > 20 points Q2 and Q4 Albuterol Q2 and Ipratropium Q4 *Discontinue previous orders* Severity Level 4 16-20 points Q4 and PRN Duoneb Q4 and Albuterol Q2 PRN *Discontinue previous orders* Severity Level 3 11-15 points QID and PRN Duoneb QID and Albuterol Q4 PRN *Discontinue previous orders* Severity Level 2 6-10 points TID and Q6 PRN Albuterol only *Discontinue previous orders* Severity Level 1 0-5 points Q6 PRN Albuterol only *Discontinue previous orders* Home Regimen Home medication orders As per reconciled home medications Patient RTA Severity Level Is: 2 Patient Progression Since Admission: not changed Treatment Plan Adjusted: No: Education Documented (within Education Tab): Yes Education Provided To: patient Comments: By: COURTNEY ALEXIS CRT; 02/04/2024, 7:56 AM FORMS DESIGNER S DESIGNER * Plan of Care - Macey Garsia RN - 02/04/2024 3:58 AM CST Problem: Adult Inpatient Plan of Care Goal: Plan of Care Review Outcome: Ongoing (see interventions/notes) Flowsheets Taken 02/04/2024 0356 by MACEY Outcome Evaluation: Patient remains confused but cooperative. Lungs remain coarse with congested cough. Does suction self. Wore BIPAP for a short time. Has maintained sat's greater then 88% on 3L nasal cannula. Taken 02/02/2024 0505 by KENYON Progress: progress towards functional goals is fair Taken 02/01/2024 0454 by ELSA Today's Goal: SpO2>88 Does the patient need assistance with discharge and/or transitioning to the next level of care?: Yes, case management already following Taken 01/31/2024 0536 by ELSA Plan of Care Reviewed With: patient Goal: Optimal Comfort and Wellbeing Outcome: Ongoing (see interventions/notes) Intervention: Monitor Pain and Promote Comfort Flowsheets (Taken 02/04/2024 0300) Pain Management Interventions: care clustered diversional activity provided pain management plan reviewed with patient/caregiver pillow support provided position adjusted quiet environment facilitated relaxation techniques promoted Intervention: Provide Person-Centered Care Flowsheets (Taken 02/04/2024 0300) Trust Relationship/Rapport: care explained choices provided emotional support provided empathic listening provided questions answered questions encouraged reassurance provided respect patient/family decisions provided safe/supportive environment facilitated nonverbal communication acknowledged therapeutic presence provided thoughts/feelings acknowledged Problem: Skin Injury Risk Increased Goal: Skin Health and Integrity Outcome: Ongoing (see interventions/notes) Intervention: Optimize Skin Protection Flowsheets (Taken 02/04/2024 030) Activity Management: activity adjusted per tolerance Pressure Reduction Techniques: frequent weight shift encouraged weight shift assistance provided heels elevated off bed Head of Bed (HOB) Positioning: HOB at 30-45 degrees Pressure Reduction Devices: pressure-redistributing mattress utilized Skin Protection: incontinence pads utilized Problem: Fall Injury Risk Goal: Absence of Fall and Fall-Related Injury Outcome: Ongoing (see interventions/notes) Intervention: Identify and Manage Contributors Flowsheets Taken 02/03/2024 190 by MACEY Medication Review/Management: medications reviewed Taken 02/03/2024 0720 by LISA Self-Care Promotion: BADL personal objects within reach Intervention: Promote Injury-Free Environment Flowsheets (Taken 02/04/2024 0300) Safety Promotion/Fall Prevention: bed alarm commode/urinal/bedpan at bedside environmental modification fall reduction program maintained lighting adjusted for task/safety low bed room near unit station nonskid shoes/slippers when out of bed supervised activity Problem: Confusion Acute Goal: Optimal Cognitive Function Outcome: Ongoing (see interventions/notes) Intervention: Minimize Contributing Factors Flowsheets Taken 02/04/2024 0300 Sensory Stimulation Regulation: care clustered television on lighting decreased quiet environment promoted Reorientation Measures: calendar in view clock in view reorientation provided Taken 02/03/2024 1900 Communication Support Strategies: extra time allowed for response nonverbal strategies used S DESIGNER * Plan of Care - Lisa Winter RN - 02/03/2024 5:43 PM CST Problem: Adult Inpatient Plan of Care Goal: Plan of Care Review Outcome: Ongoing (see interventions/notes) Goal: Optimal Comfort and Wellbeing Outcome: Ongoing (see interventions/notes) Goal: Readiness for Transition of Care Outcome: Ongoing (see interventions/notes) Problem: Skin Injury Risk Increased Goal: Skin Health and Integrity Outcome: Ongoing (see interventions/notes) Problem: Fall Injury Risk Goal: Absence of Fall and Fall-Related Injury Outcome: Ongoing (see interventions/notes) Problem: Stroke, Ischemic (Includes Transient Ischemic Attack) Goal: Optimal Coping Outcome: Ongoing (see interventions/notes) Goal: Effective Bowel Elimination Outcome: Ongoing (see interventions/notes) Goal: Optimal Cerebral Tissue Perfusion Outcome: Ongoing (see interventions/notes) Goal: Optimal Cognitive Function Outcome: Ongoing (see interventions/notes) Goal: Improved Communication Skills Outcome: Ongoing (see interventions/notes) Goal: Optimal Functional Ability Outcome: Ongoing (see interventions/notes) Goal: Optimal Nutrition Intake Outcome: Ongoing (see interventions/notes) Goal: Effective Oxygenation and Ventilation Outcome: Ongoing (see interventions/notes) Goal: Improved Sensorimotor Function Outcome: Ongoing (see interventions/notes) Goal: Safe and Effective Swallow Outcome: Ongoing (see interventions/notes) Goal: Effective Urinary Elimination Outcome: Ongoing (see interventions/notes) Problem: Functional Deficit Goal: Improved Balance and Postural Control Outcome: Ongoing (see interventions/notes) Goal: Optimal Cognitive Function Outcome: Ongoing (see interventions/notes) Goal: Optimal Coordination Outcome: Ongoing (see interventions/notes) Goal: Improved Muscle Strength Outcome: Ongoing (see interventions/notes) Goal: Improved Muscle Tone Outcome: Ongoing (see interventions/notes) Goal: Optimal Range of Motion Outcome: Ongoing (see interventions/notes) Goal: Compensation for Sensory Deficit Outcome: Ongoing (see interventions/notes) Problem: Confusion Acute Goal: Optimal Cognitive Function Outcome: Ongoing (see interventions/notes) Problem: Violence Risk or Actual Goal: Anger and Impulse Control Outcome: Ongoing (see interventions/notes) S DESIGNER * Plan of Care - Lisa Winter RN - 02/03/2024 5:00 PM CST 1700- Ass Problem: Adult Inpatient Plan of Care Goal: Plan of Care Review Outcome: Ongoing (see interventions/notes) Goal: Optimal Comfort and Wellbeing Outcome: Ongoing (see interventions/notes) Goal: Readiness for Transition of Care Outcome: Ongoing (see interventions/notes) Problem: Skin Injury Risk Increased Goal: Skin Health and Integrity Outcome: Ongoing (see interventions/notes) Problem: Fall Injury Risk Goal: Absence of Fall and Fall-Related Injury Outcome: Ongoing (see interventions/notes) Problem: Stroke, Ischemic (Includes Transient Ischemic Attack) Goal: Optimal Coping Outcome: Ongoing (see interventions/notes) Goal: Effective Bowel Elimination Outcome: Ongoing (see interventions/notes) Goal: Optimal Cerebral Tissue Perfusion Outcome: Ongoing (see interventions/notes) Goal: Optimal Cognitive Function Outcome: Ongoing (see interventions/notes) Goal: Improved Communication Skills Outcome: Ongoing (see interventions/notes) Goal: Optimal Functional Ability Outcome: Ongoing (see interventions/notes) Goal: Optimal Nutrition Intake Outcome: Ongoing (see interventions/notes) Goal: Effective Oxygenation and Ventilation Outcome: Ongoing (see interventions/notes) Goal: Improved Sensorimotor Function Outcome: Ongoing (see interventions/notes) Goal: Safe and Effective Swallow Outcome: Ongoing (see interventions/notes) Goal: Effective Urinary Elimination Outcome: Ongoing (see interventions/notes) Problem: Functional Deficit Goal: Improved Balance and Postural Control Outcome: Ongoing (see interventions/notes) Goal: Optimal Cognitive Function Outcome: Ongoing (see interventions/notes) Goal: Optimal Coordination Outcome: Ongoing (see interventions/notes) Goal: Improved Muscle Strength Outcome: Ongoing (see interventions/notes) Goal: Improved Muscle Tone Outcome: Ongoing (see interventions/notes) Goal: Optimal Range of Motion Outcome: Ongoing (see interventions/notes) Goal: Compensation for Sensory Deficit Outcome: Ongoing (see interventions/notes) Problem: Confusion Acute Goal: Optimal Cognitive Function Outcome: Ongoing (see interventions/notes) Problem: Violence Risk or Actual Goal: Anger and Impulse Control Outcome: Ongoing (see interventions/notes) essments as noted. Patient resting per bed. Dialysis currently in progress. Patient tolerating well. Spouse visited x2 hours. Blankenship catheter remains in place, with 75 mL output thus far this shift. Midline IV access, double lumen remains present to R upper arm, draws and flushes, capped with antiseptic caps. Patient takes any fluids offered. Is oriented x2-3 this shift, but very sleepy, rouses easily to light touch or voice. Turned q2 hours.Cardizem held x1 this shift, as HR was 60. Given for second dose scheduled as HR tachy in the 110s-120s. S DESIGNER * Interdisciplinary - Lisa Winter RN - 02/03/2024 3:00 PM FORMS DESIGNER 1500-Patient resting per bed, sitting up watching TV. Has occasionally productive cough, and is using suction to remove the secretions on his own. Alert, oriented, but family reports patient is occasionally saying things that dont make sense in context of situation. Patient provided with additional thickened coffee per request. Monitoring devices remain in place. No complaints at this time. S DESIGNER * Plan of Care - Deny Stokes MS [facility]-BUSINESS TECHNOLOGY TEACHER - 02/03/2024 2:07 PM FORMS DESIGNER Speech-Language Pathology: Dysphagia Treatment Completed: 02/03/2024 Recommendations: Diet Solids Recommendation: IDDSI 6/Soft and Bite Sized Diet Liquids Recommendations: IDDSI 2/Mildly thick liquids/[place] thick Recommended Form of Meds: Crush, In puree, Advance as tolerated Feeding Guidelines: Upright for all oral intake Slow rate of intake Remain upright after oral intake Frequent oral care No oral intake when respiratory rate above 31 Instrumental assessment : may be beneficial if symptoms persist Patient would benefit from: continued skilled intervention Assessment: Patient presented with continued evidence of dysphagia this date and demonstrated fair plus progress toward goals. Patient presented with fair feeding ability, emerging endurance and continued evidence of pharyngeal dysphagia. Recommend continue diet and liquid texture modifications at this time with feeding guidelines and aggressive oral care. Patient is at elevated risk for adverse effects related to dysphagia/aspiration and continued skilled intervention is warranted at this time. The prognosis for the patient to meet nutritional needs by mouth is good. based on degree of impairment, stimulability for treatment, baseline medical condition. Strongest to weakest predictors of aspiration pneumonia exhibited by this patient are Dependence for feeding, Dependence for oral care, Number of decayed teeth, More than one medical diagnosis, Number of medication prescribed, Xerostomia (dry mouth), Reduced activity level, Aspiration of food/liquid, and GERD(Langcarlota et al). Silent aspiration cannot be excluded clinically. If concern for silent aspiration, please refer formodified barium swallow study. Subjective: Reviewed patient status with nursing prior to visit. Patient was repositioned upright in bed adequate for oral intake Treatment: Patient need for assist with procedure: Stand by Assist, Positioning: upright in bed Liquid/Solid Trials: ice chips, thin liquids, Puree/IDDSI 4, and Regular diet/IDDSI 7 Oral Phase Characteristics: intact labial seal, appearance of adequate mastication of solids, and trace residue lining oral structures Pharyngeal phase characteristics: appearance of prolonged transition between oral and pharyngeal phase, appearance of inconsistent laryngeal elevation, latent cough response, and consistent throat clear The Jeffers Assessment of Swallowing Ability (MASA) was utilized to assess the patient's overall swallowing function. Alertness: 10-alert Cooperation: 10-cooperative Auditory Comprehension: 8-follows ordinary conversation with little difficulty Respiration: 2-chest infection Respiratory Rate for Swallow: 5-able to control rate for swallow Aphasia: 5-no deficits Apraxia: 5-no deficits Dysarthria: 3-speech intelligible but obvious defects Saliva: 5-no deficits Lip Seal: 5-no deficits Tongue Movement: 10-full range Tongue Strength: 10-no deficits noted Tongue Coordination: 10-no deficits noted Oral Prep: 10-no deficits noted Ga-no deficits noted Palate: 10-no deficits noted Bolus Clearance: 8-significant clearance/minimal residue present Oral Transit: 8-delayed >1 second Cough Reflex: 5-no deficits noted Voluntary Cough: 10-no deficits noted Voice: 10-no deficits noted Trach: 10-no trach Pharyngeal Phase: 8-mildly restricted elevation/slow initiation Pharyngeal Response: 5-cough before/during/after the swallow MASA Score: 177/200 (initial eval score: 124) MASA Dysphagia Severity Score: Mild (168-177) MASA Aspiration Risk Score: NIL ABNORMALITY DETECTED 170-200 Education: BUSINESS TECHNOLOGY TEACHER provided skilled verbal instruction to patient regarding rationale for skilled services, therapy performance, compensatory strategies and/or precautions, and recommended guidelines. Patient did stated understanding, demonstrated understanding, and provided teachback Alerted nursing to evaluation performance and recommendations for care. Sign posted at bedside withfeeding guidelines with patient permission. Patient was left upright in bed with call light near. If this is the last Speech Therapy visit, please refer to this note as the discharge summary. Thank you for your referral. DENY STOKES MS CCC-BUSINESS TECHNOLOGY TEACHER Speech Language Pathologist 02/03/2024 Visit Timing/Type Start Time: 1200 Stop Time: 1230 Time Calculation (min): 30 min Time Calculation Comment: SFT BUSINESS TECHNOLOGY TEACHER Received On: 01/29/24 Type of visit: Treatment Treatment type for BilMin: TX Swallow/ Oral Dysfucnt (eg Dysphag) Swallow/Oral Function Treatment Time Entry: 30 BUSINESS TECHNOLOGY TEACHER Frequency: 5 sessions a week Speech Therapy Plan of Care Patient to be seen by Speech Therapy 4-5x/week to address impairments and functional limitations. Treatments to include:education and facilitation of compensatory strategies Preferred Language: Cymraes Goals to be achieved by: discharge Precautions: falls,safety, full code - BUSINESS TECHNOLOGY TEACHER to provide skilled instruction to patient/family/staff regarding recommendations, precautionsand strategies for improved health literacy, safety and discharge planning. - Patient to consume clinician led oral intake trials to determine candidacy for consistent oral intake. - Patient to consume consistent modified diet/liquid textures without evidence of associated adverse effects related dysphagia/aspiration - Completed MODIFIED BARIUM SWALLOW STUDY for comprehensive exam of swallow physiology and determine further intervention needs. - Mu-Ism of oral nutrition/hydration with optimal safety, adequacy and enjoyment. Electronically signed by Deny Stokes MS [facility]-BUSINESS TECHNOLOGY TEACHER at 02/03/2024 2:20 PM FORMS DESIGNER * Dayana Reeves - 02/03/2024 1:56 PM CST Clinical Product Specialist Coordination Note SUMMARY - Clinical Product Specialist currently working the potential transition plan(s): 02/02/2024 @ 2:52 PM FORMS DESIGNER ([place], TS) Inpatient Rehabilitation Facility [IRF] (See detail within the referral type(s) below for information on what is needed to complete coordination Note - the Transition Specialists do not coordinate all transition types - please direct all question regarding hospital transition to the Demand Inspector) Readmission risk level (if calculated) is: 1-Low Primary Care Provider: PCP: UNKNOWN PROVIDER Primary Medical Coverage: Medicare Part A Secondary Medical Coverage: N/A Hospital Follow-Up appointment(s) scheduling status: N/A - Currently anticipating facility / non-community discharge Inpatient Rehabilitation Facility [IRF] Prior Authorization Required? prior authorization NOT required (primary payor is either: Medicare A, Medicare Railroad, or traditional Medicaid) Needed Clarification/ Information / Documentation to complete IRF coordination: Current Physical Therapy documentation Current Occupational Therapy documentation Confirmed Discharge Date [facility] - New Referral - pending Required COVID testing: None required Contact or Liaison Name: Shelby Contact phone: [phone] Facility has Bette Garland 02/03/2024 @ 1:55 PM FORMS DESIGNER ([facility], ) Spoke with Toyin who stated pt looks ok, but she will not be ableto get a final answer until pt is a bit more stable. Did let her know his diet has been advanced. We will touch base again in a day or two. KYLE Newman notified in person 02/03/2024 @ 9:00 AM FORMS DESIGNER ([facility], ) Spoke with Toyin who stated they are verifying pts insurance benefits. Referral still pending at this time. 02/03/2024 @ 8:48 AM FORMS DESIGNER ([facility], ) Left message for Toyin asking for referral update. 02/02/2024 @ 2:52 PM FORMS DESIGNER ([facility], ) Notified Shelby of referral via [employer] message 02/02/2024 @ 2:53 PM FORMS DESIGNER ([facility], ) Referral sent via [employer] S DESIGNER S DESIGNER S DESIGNER * Interdisciplinary - Lisa Winter RN - 02/03/2024 12:38 PM FORMS DESIGNER 1238- Family arrived to visit at bedside. S DESIGNER * Interdisciplinary - Lisa Winter RN - 02/03/2024 12:25 PM FORMS DESIGNER 1225- Dr. Carroll to patient's bedside. N.O. to be placed. Kaleigh DON completed evaluation. Continuecurrent plan of nectar thickened fluids, moist, minced meat, bite-sized pieces. S DESIGNER * Interdisciplinary - Lisa Winter RN - 02/03/2024 12:15 PM FORMS DESIGNER 1215-Kaleigh from ST to patient's bedside to assist with meal. S DESIGNER * Plan of Care - Juni Cummins OT - 02/03/2024 9:48 AM CST Attempted to see patient for OT treatment. X-ray was in room. Will attempt at a later date/time. JUNI CUMMINS OT S DESIGNER * Interdisciplinary - Theodora Padilla RRT - 02/03/2024 8:25 AM CST Respiratory Therapy Assessment And Education Points 0 1 2 3 4 Score Pulmonary History No Smoking Smokes <1 ppd Smokes 1 ppd or more Pulmonary impairment (acute or chronic) Severe or Chronic exacerbation 3 Surgical Status None General Surgery Lower Abdominal Surgery Thoracic or Upper Abdominal Surgery Thoracic with Pulmonary Disease 0 CXR (from last 24 hrs) Clear Unavailable Infiltrates, Atelectasis or Pleural effusion Infiltrates in more than 1 lobe Infiltrates plus Atelectasis or Pleural effusion 1 Respirations Regular Pattern, RR 8-20 Increased, RR 21-25 Dyspnea on exertion, irregular pattern, RR 26-30 Use of accessory muscles, prolonged expiration, RR 31-35 Severe SOB with use of accessory muscles, RR >35 0 BS Clear Diminished Unilaterally Diminished Bilaterally Crackles in Bases Wheezing and/or Rhonchi 2 Cough Strong, Non- productive cough Strong, productive cough Weak, Non- productive cough Weak, productive cough No cough, may require suctioning 0 Mental status Alert and oriented Lethargic, follows commands Confused, does not follow commands Obtunded Comatose 0 Level of Activity Ambulatory Ambulatory with assistance Temporarily non-Ambulatory Bed rest, able to position self Bed rest, unable to position self 1 O2 required to keep SpO2 >=92% (or ordered goal) None 1-3 L/M or FiO2 25-35% 4-6 L/M or FiO2 35-50% >50% 100% 1 Total Score 8 Treatment Scoring Guide Frequency Utilize ORDER SET for all changes Severity Level 5 > 20 points Q2 and Q4 Albuterol Q2 and Ipratropium Q4 *Discontinue previous orders* Severity Level 4 16-20 points Q4 and PRN Duoneb Q4 and Albuterol Q2 PRN *Discontinue previous orders* Severity Level 3 11-15 points QID and PRN Duoneb QID and Albuterol Q4 PRN *Discontinue previous orders* Severity Level 2 6-10 points TID and Q6 PRN Albuterol only *Discontinue previous orders* Severity Level 1 0-5 points Q6 PRN Albuterol only *Discontinue previous orders* Home Regimen Home medication orders As per reconciled home medications Patient RTA Severity Level Is: 2 Patient Progression Since Admission: improved Treatment Plan Adjusted: No: Education Documented (within Education Tab): Yes Education Provided To: patient Comments: By: THEODORA PADILLA RRT; 02/03/2024, 8:25 AM FORMS DESIGNER S DESIGNER * Interdisciplinary - Theodora Padilla RRT - 02/03/2024 7:09 AM CST Decreased FiO2 to 30%. S DESIGNER * Interdisciplinary - Lisa Winter RN - 02/03/2024 6:45 AM FORMS DESIGNER 0645-Report received from Macey Garsia RN off-going nurse. Bi-pap remains in place, monitoring devices remain attached. S DESIGNER * Plan of Care - Macey Garsia RN - 02/03/2024 3:24 AM CST Problem: Adult Inpatient Plan of Care Goal: Plan of Care Review Outcome: Ongoing (see interventions/notes) Flowsheets Taken 02/03/2024318 by MACEY Outcome Evaluation: Patient's lungs very congested. Frequent encouragement given for coughing and deep breathing. Began desating to 85-86%. Placed on BIPAP. Tolerated for awhile. Became more confusedand restless. Pulling on equipment and trying to climb out of the bed. Frequent attempts made to redirect and reorient patient. Precedex drip restarted. Has been tolerating BIPAP better. Taken 02/02/2024 0505 by KENYON Progress: progress towards functional goals is fair Taken 02/01/2024 0454 by ELSA Today's Goal: SpO2>88 Does the patient need assistance with discharge and/or transitioning to the next level of care?: Yes, case management already following Taken 01/31/2024 0536 by ELSA Plan of Care Reviewed With: patient Goal: Optimal Comfort and Wellbeing Outcome: Ongoing (see interventions/notes) Intervention: Monitor Pain and Promote Comfort Flowsheets (Taken 02/03/2024299) Pain Management Interventions: care clustered diversional activity provided pain management plan reviewed with patient/caregiver pillow support provided position adjusted quiet environment facilitated relaxation techniques promoted Intervention: Provide Person-Centered Care Flowsheets (Taken 02/03/2024299) Trust Relationship/Rapport: care explained choices provided emotional support provided empathic listening provided questions answered questions encouraged reassurance provided respect patient/family decisions provided safe/supportive environment facilitated nonverbal communication acknowledged therapeutic presence provided thoughts/feelings acknowledged Problem: Skin Injury Risk Increased Goal: Skin Health and Integrity Outcome: Ongoing (see interventions/notes) Intervention: Optimize Skin Protection Flowsheets (Taken 02/03/2024299) Activity Management: activity adjusted per tolerance Pressure Reduction Techniques: frequent weight shift encouraged weight shift assistance provided heels elevated off bed Head of Bed (HOB) Positioning: HOB at 45 degrees Pressure Reduction Devices: pressure-redistributing mattress utilized Skin Protection: incontinence pads utilized Problem: Fall Injury Risk Goal: Absence of Fall and Fall-Related Injury Outcome: Ongoing (see interventions/notes) Intervention: Identify and Manage Contributors Flowsheets (Taken 02/03/2024299) Medication Review/Management: medications reviewed Intervention: Promote Injury-Free Environment Flowsheets (Taken 02/03/2024299) Safety Promotion/Fall Prevention: bed alarm commode/urinal/bedpan at bedside environmental modification fall reduction program maintained lighting adjusted for task/safety low bed nonskid shoes/slippers when out of bed room near unit station supervised activity Problem: Confusion Acute Goal: Optimal Cognitive Function 02/03/2024318 by MACEY Outcome: Ongoing (see interventions/notes) 02/03/2024318 by MACEY Reactivated Intervention: Minimize Contributing Factors Flowsheets (Taken 02/03/2024 0300) Communication Support Strategies: nonverbal strategies used extra time allowed for response Sensory Stimulation Regulation: care clustered television on lighting decreased quiet environment promoted Reorientation Measures: calendar in view clock in view reorientation provided S DESIGNER * Interdisciplinary - Marcelo Denise RN - 02/02/2024 7:04 PM CST Patient report given to SABRINA Choudhury. Patient resting in bed. Patient A&Ox3. Vital Signs per flowsheet. Call light within reach. Bed alarm on. Patient updated to plan of care. No acute distress noted. MARCELO DENISE RN S DESIGNER * Plan of Care - Marcelo Denise RN - 02/02/2024 4:24 PM CST Problem: Adult Inpatient Plan of Care Goal: Plan of Care Review Outcome: Ongoing (see interventions/notes) Goal: Optimal Comfort and Wellbeing Outcome: Ongoing (see interventions/notes) Goal: Readiness for Transition of Care Outcome: Ongoing (see interventions/notes) Problem: Skin Injury Risk Increased Goal: Skin Health and Integrity Outcome: Ongoing (see interventions/notes) Problem: Fall Injury Risk Goal: Absence of Fall and Fall-Related Injury Outcome: Ongoing (see interventions/notes) Problem: Stroke, Ischemic (Includes Transient Ischemic Attack) Goal: Optimal Coping Outcome: Ongoing (see interventions/notes) Goal: Effective Bowel Elimination Outcome: Ongoing (see interventions/notes) Goal: Optimal Cerebral Tissue Perfusion Outcome: Ongoing (see interventions/notes) Goal: Optimal Cognitive Function Outcome: Ongoing (see interventions/notes) Goal: Improved Communication Skills Outcome: Ongoing (see interventions/notes) Goal: Optimal Functional Ability Outcome: Ongoing (see interventions/notes) Goal: Optimal Nutrition Intake Outcome: Ongoing (see interventions/notes) Goal: Effective Oxygenation and Ventilation Outcome: Ongoing (see interventions/notes) Goal: Improved Sensorimotor Function Outcome: Ongoing (see interventions/notes) Goal: Safe and Effective Swallow Outcome: Ongoing (see interventions/notes) Goal: Effective Urinary Elimination Outcome: Ongoing (see interventions/notes) Problem: Functional Deficit Goal: Improved Balance and Postural Control Outcome: Ongoing (see interventions/notes) Goal: Optimal Cognitive Function Outcome: Ongoing (see interventions/notes) Goal: Optimal Coordination Outcome: Ongoing (see interventions/notes) Goal: Improved Muscle Strength Outcome: Ongoing (see interventions/notes) Goal: Improved Muscle Tone Outcome: Ongoing (see interventions/notes) Goal: Optimal Range of Motion Outcome: Ongoing (see interventions/notes) Goal: Compensation for Sensory Deficit Outcome: Ongoing (see interventions/notes) Problem: Violence Risk or Actual Goal: Anger and Impulse Control Outcome: Ongoing (see interventions/notes) S DESIGNER * Dayana Reeves - 02/02/2024 2:52 PM CST Clinical Product Specialist Coordination Note SUMMARY - Clinical Product Specialist currently working the potential transition plan(s): 02/02/2024 @ 2:52 PM FORMS DESIGNER (DENIS BOOGIE) Inpatient Rehabilitation Facility [IRF] (See detail within the referral type(s) below for information on what is needed to complete coordination Note - the Transition Specialists do not coordinate all transition types - please direct all question regarding hospital transition to the Demand Inspector) Readmission risk level (if calculated) is: 1-Low Primary Care Provider: PCP: UNKNOWN PROVIDER Primary Medical Coverage: Medicare Part A Secondary Medical Coverage: N/A Hospital Follow-Up appointment(s) scheduling status: N/A - Currently anticipating facility / non-community discharge Inpatient Rehabilitation Facility [IRF] Prior Authorization Required? prior authorization NOT required (primary payor is either: Medicare A, Medicare Railroad, or traditional Medicaid) Needed Clarification/ Information / Documentation to complete IRF coordination: Current Physical Therapy documentation Current Occupational Therapy documentation Confirmed Discharge Date [facility] - New Referral - initial Required COVID testing: None required Contact or Liaison Name: Shelby Contact phone: [phone] Facility has Bette Garland 02/02/2024 @ 2:52 PM FORMS DESIGNER ([facility], TS) Notified Shelby of referral via [employer] message 02/02/2024 @ 2:53 PM FORMS DESIGNER ([facility], TS) Referral sent via [employer] S DESIGNER * Plan of Care - Paula Klein, PT - 02/02/2024 2:28 PM CST Activity Recommendations: Recommendations for floor staff include up to chair and requires Moderate assist with Gait belt andTwo person assist. Activity recommendations communicated with RN. Discharge Recommendations: From a therapy perspective, at the time of discharge it appears that patient would benefit from Acute rehab vs SNF due to decreased functional mobility. Therapist discussed this recommendation with RN. DME recommendations include:To be determined Assessment: Significant Physical Therapist findings with this patient include Weakness, Decreased endurance, Decreased strength, Decreased cognition, Impaired balance, and Impaired gait that leads to functional limitations including decreased ability to get in/out of bed, stand from bed or chair, ambulate household distances safely. This represents a functional decline that requires acute PT intervention. Patient will benefit fromPhysical Therapy to address these deficits during their hospitalization. Strengths of this patient include Family support. Anticipate patient will progress toward stated goals with therapeutic intervention. PT Plan of Care: Date of Initial Evaluation: 02/02/24 Patient to be seen by Physical Therapy. 3 to 4 x/week. Physical Therapy to address impairments and functional limitations. Treatments to include: Balance training, Endurance training, Gait, Mobility/Transfers, Neuro re-education, Safety, and Therex Precautions: Seizure, Fall, and Monitor Vitals Goals to be achieved by: 02/09/24 - Patient will perform supine-sit transfers with Minimal assist to be able to assist with positioning. - Patient will perform sit-stand transfers with least restrictive device and Minimal assist to be able to rise from chair. - Patient will ambulate with least restrictive device for 15 feet and Minimal assist to be able to facilitate patient access to bathroom. - Patient will demonstrate independence in therapeutic exercise program specific to relative impairments in order to optimize rehabilitation. - Patient will improve AM-PAC score to be greater than or equal to 17 points to indicate improved overall daily function. Patient stated goal: Do what I was doing Preferred Language Cymraes PHYSICAL THERAPY INITIAL EVALUATION Subjective: I'm ready Pain: Location: chest (0-10) Pain Rating: Rest: (did not rate) Home Environment: Patient lives in Single story home. Patient has 1 stairs to enter with no rail(s). Home has all needs on the main level. Patient lives with their children. Prior Level of Function: Patient reports he was ambulating with cane. Patient reports he was independent with ADLs. Patient reports he granddaughter completes cooking, cleaning, laundry. Patient reports he drives. Patient reports he wears 2L/min O2 at home Examination: History of present illness: This is a 78 y.o. year old male who was admitted on 01/25/2024 for Cardiopulmonary arrest with successful resuscitation. Relevant PMHx includes: has a past medical history of A-fib ([facility]), Aortic valve stenosis, BPH (benign prostatic hyperplasia), CAD (coronary artery disease), Chronic diastolic heart failure ([facility]), COPD (chronic obstructive pulmonary disease) ([facility]), CVA (cerebral vascular accident) ([facility]), DM type 2 (diabetes mellitus, type 2) ([facility]), HLD (hyperlipidemia), SD (myocardial infarction) ([facility]), Mitral valve stenosis, Pulmonary HTN ([facility]), Seizures ([facility]), and TIA (transient ischemic attack). Observations: Patient alert and supine in bed with HOB elevated. 3L/min O2 intact. O2 sats 92% at rest. Cognition: Oriented to person only . ROM: Left Lower Extremity: WFL Right Lower Extremity: WFL Strength: 3+/5 B LE grossly Balance Static sitting balance: fair Dynamic sitting balance: NT Static standing balance: fair- Dynamic standing balance: poor Sit to stand dynamic balance: poor Bed Mobility: ? Supine to Sit: Moderate assist with 1 person using Bed Rails and Head of Bed Elevated . Bed Mobility Details: Moderate assist with verbal cues for advancing LEs. Assist to elevate trunk and scoot hips toward EOB Transfers: ? Sit to Stand transfer with Moderate assist and Verbal Cues and 2 person using Gait belt. ? Stand to Sit transfer with Moderate assist and Verbal Cues and 2 person using Gait belt. ? Stand/Pivot transfer with Moderate assist and Verbal Cues and 2 person using Gait belt. Transfer Details: Moderate assist x 2 to stand from EOB and verbal cues for sequencing steps towardchair. Cues for hand placement and safety. O2 sats 81% on 3L/min after mobility. Verbal cues for pursed lip breathing. O2 sats increased to 85%. O2 increased to 4L/min and continued cueing for deep breathing. O2 sats increased to 91%. RN notified. Outcome Measure Used. [facility] AM-PAC?6 Clicks?? Basic Mobility Inpatient Short Form How much help from another person does the patient currently need??? 1. Turning from your back to your side while in a flat bed without using bedrails? 2 A Lot 2. Moving from lying on your back to sitting on the side of a flat bed without using bedrails? 2 A Lot 3. Moving to and from a bed to a chair (including a wheelchair)? 1 Unable 4. Standing up from a chair using your arms (e.g. wheelchair or bedside chair)? 1 Unable 5. To walk in hospital room? 1 Unable 6. Climbing 3-5 steps with a railing? 1 Unable Raw Score 8 16 or Less = predictive of discharge to an institutional setting. 17-24 = predictive of discharge to home Juni Ahumada at [facility]. Association of A-PAC ???6 Clicks?? Basic Mobility and Daily Activity Scores with Discharge Destination. PTJ. March 2020 Education Provided: Benefits of PT, safety, pursed lip breathing, call light Eval /Treat Visit and Timing Start Time: 1428 Stop Time: 1447 Time Calculation (min): 19 min PT Received On: 02/02/24 Type of visit: Evaluation PT Evaluation (Moderate) Time Entry: 19 All charges today are appropriate and separate from each other. Patient left up in chair with alarm on and call light in reach. Next session plan to Progress as tolerated. PAULA KLEIN, PT S DESIGNER * Interdisciplinary - Paty Redding - 02/02/2024 2:17 PM CST Case Management Patient / Patient Building Maintenance Supervisor Contact Note Papito's readmission risk level (if calculated) is: 1-Low Patient Class: Inpatient Consecutive Inpatient Midnights 8 Actual day(s) of hospital stay (compare to working DRG):8 New Consult for Case Management? No Summary: Decision Maker: Patient is assumed to be the medical decision maker Telephoto Installer/Surgery Teacher Name: Marvin Opal Met with Papito and son Marvin and introduced self and role and discussed plan of care. CM met with patient and son to review discharge planning and coordination. They are hopeful for an Acute Rehab and request referral to [facility]. No PASRR required for acute rehab. Plan of Care:(Problem/ situation/ barrier + goals/ milestones + interventions + evaluation of progress = Plan of Care) Papito's primary medical problem this hospitalization is Cardiopulmonary arrest with successful resuscitation (HCC). Hospital Plan: PT/OT/BUSINESS TECHNOLOGY TEACHER, cefepime, prednisone, keppra Anticipated Discharge Plan: Inpatient Rehabilitation Facility (IRF) Family/ Caregiver's readiness, willingness and ability to support patient with anticipated community discharge plan: Spoke with family/caregiver(s) (negrito Wong), who is/are agreeable to anticipated discharge plan. No concerns expressed. IM Letter Documentation, if applicable Medicare Notice Given to Responsible Democrat: Yes, in person Date Form Given to Patient/Responsible Democrat: 01/26/24 New referral(s) for Post-Acute Hospital Service(s) Inpatient Rehabilitation Facility [IRF] Facility Choice(s): [facility] List of Medicare approved IRF agencies with quality measures and resource data, in the desired geographic area (with any financial affiliations disclosed and/ or in network providers identified as applicable) provided to patient / family: Yes New Referral Anticipated Needs at Facility upon discharge: Therapy Needs [x] Physical Therapy [x] Occupational Therapy [x] Speech Therapy Nursing Needs [] IV medication (include name, dose, frequency, route) [] IM medication (include name, dose, frequency) [] Wound Care [] Wound Vac [] Education and teaching for rehabilitative nursing procedures [] Enteral Feeds [] Total Parenteral Nutrition (TPN) [] Ostomy(ies) [] Drain(s) [] Catheter Care Considerations [] Bariatric Needs (>350 lbs) Height: 5' 10 (177.8 cm) Weight: 153 lb 11.2 oz (69.7 kg) (bed scale) [] Isolation [] Active IV Chemotherapy* [] Active PO Chemotherapy [] Active Radiation Tx* Dialysis: [] HD at Facility [] Travel to HD unit [] Peritoneal Oxygen [x] Nasal Cannula [] Heated High Flow NC [] CPAP [] BiPAP [] Other [] Check box if the above is a new respiratory treatment requiring monitoring Other [] Patient will possibly require transition to long-term care after facility stay Equipment [] Specialty mattress or bed *Facilities typically cannot accept patients receiving active IV chemo or radiation treatments - ask hospital treatment team if holding cancer treatment for duration of facility stay is appropriate Patients with PO chemo will typically only be considered for SNF/NH if patient ca supply and selfadminister PO chemo medication S DESIGNER * Interdisciplinary - Marleen Day, PROSPER - 02/02/2024 1:06 PM CST ASSESSMENT: Nutrition Assessment triggered by: RD consult, Nutrition Risk Screen concern. Nutrition risk screen tube feeding or parenteral nutrition, (but pt not on TF at this time). Onesimo Score 12 with probably inadequate nutrition per Risk Assessment. 01/29/2024- pt extubated & OGTF stopped (Vital AF 1.2). 02/02/2024-diet advanced after BUSINESS TECHNOLOGY TEACHER evaluation Nutrition risk screen difficulty chewing/swallowing. PROBLEM: Increased nutrient needs, related to & evidenced by intubation. Principal Problem: Cardiopulmonary arrest with successful resuscitation (HCC) Past Medical History: Past Medical History Positives Diagnosis Date A-fib (HCC) dx in 02/2022, s/p ablation in 07/29/22, cardioversion 09/24/22 Aortic valve stenosis BPH (benign prostatic hyperplasia) CAD (coronary artery disease) Chronic diastolic heart failure (HCC) COPD (chronic obstructive pulmonary disease) (HCC) CVA (cerebral vascular accident) (HCC) 3 yrs ago recovered DM type 2 (diabetes mellitus, type 2) (HCC) HLD (hyperlipidemia) SD (myocardial infarction) (HCC) Mitral valve stenosis Pulmonary HTN (HCC) Seizures (HCC) TIA (transient ischemic attack) Diet: DIET DYSPHAGIA III Restrictions: Thickened Liquids, [place] Diet Supplement: Ensure Plus High Protein-all meals Chew/swallow: modified alter BUSINESS TECHNOLOGY TEACHER evaluation Intake Adequacy: <75% of estimated energy requirement, >/=1 month Current Onesimo Score 16 with very poor nutrition, per Risk Assessment. Skin/Wound: none Labs noted: 02/01/24-EGFR>60, SX=382, Bg=655, K=4.0; 01/30/24-P=3.2, Mg=2.2; 01/25/24-albumin=3.9, EGFR=55, SW=774, Ll=027, K=4.7, Mg=2.3, ItM0E=2.6; Meds noted: IV-reglan/precedex-prn, humalog, lantus/lasix-being held, prednisone, senokot Education needs: discussed nutrition supplements & pt agreeable to them Height: Ht Readings from Last 1 Encounters: 01/25/24 5' 10 (1.778 m) Weight: Wt Readings from Last 1 Encounters: 02/02/24 153 lb 11.2 oz (69.7 kg) BMI: Body mass index is 21.95 kg/m??. BMI weight range for height: 132-173# Acute wt Hx: 01/25/24 1706 159 lb 11.2 oz (72.4 kg) -- 01/25/24 1318 154 lb (69.9 kg), an estimated wt -- EMR wt Hx: 162.6# -01/09/2024 ([facility]) 161# -12/26/2023 ([facility]) 157# -09/09/2023 ([facility]) A.S.P.E.N Clinical Characteristics to Support Malnutrition Diagnosis Clinical Characteristic Clinical Assessment Criteria/Location Energy Intake Inadequate <50% of estimated energy requirement, x4 days Weight Loss Significant 4% in 9 days Subcutaneous Fat Loss Moderate Orbital, Triceps Muscle Loss Severe Confucianism, Interosseous, Clavicle, Acromion, Calf, Patellar region, inner thigh Fluid Accumulation None Noted Hand Student Life Coordinator Strength Unable to Assess 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 These characteristics are indicative of severe malnutrition in the context of acute on chronic illness. NEEDS:(based on 70kg) Calories: 2100 (30kcal/kg) Protein: 70-901gm (1-1.3gm/kg) Fluid: 1800-2100ml GOAL: nutrition adequacy INTERVENTION: 01/30/24-attempted placement NG tube for nutrition, per refused; Pt was NPO for 4 days after extubation; acute Rehab for therapy recommended on DC; Diet advanced today after BUSINESS TECHNOLOGY TEACHER eval; Started Ensure Plus High Protein, all meals & pt is drinking them. Reassess: 02/06/[address] S DESIGNER S DESIGNER * Plan of Care - Deny Stokes MS [facility]-BUSINESS TECHNOLOGY TEACHER - 02/02/2024 11:50 AM FORMS DESIGNER Speech-Language Pathology: Dysphagia Treatment Completed: 02/02/2024 Recommendations: Diet Solids Recommendation: IDDSI 6/Soft and Bite Sized Diet Liquids Recommendations: IDDSI 2/Mildly thick liquids/[place] thick Recommended Form of Meds: Crush, In puree, Advance as tolerated Feeding Guidelines: Upright for all oral intake Slow rate of intake Remain upright after oral intake Frequent oral care No oral intake when respiratory rate above 31 Instrumental assessment : may be beneficial if symptoms persist Patient would benefit from: continued skilled intervention and patient/family education Assessment: Patient presented with continued evidence of dysphagia this date and demonstrated fair plus progress toward roman catholic of oral nutrition/hydration with optimal safety, adequacy and enjoyment. Recommend initiate oral intake with diet and liquid texture modifications, feeding guidelines and oral care for optimal safety. Patient is at elevated risk for adverse effects related to dysphagia/aspiration and continued skilled intervention is warranted. The prognosis for the patient to meet nutritional needs by mouth is fair. based on degree of impairment, stimulability for treatment, baseline medical condition. Strongest to weakest predictors of aspiration pneumonia exhibited by this patient are Dependence for feeding, Dependence for oral care, More than one medical diagnosis, Number of medication prescribed, Xerostomia (dry mouth), Reduced activity level, Aspiration of food/liquid, and GERD(Feli et al). Silent aspiration cannot be excluded clinically. If concern for silent aspiration, please refer formodified barium swallow study. Subjective: Reviewed patient status with nursing prior to visit. Patient was awake, in bed, upon arrival to room. No family present Treatment: Patient need for assist with procedure: Stand by Assist, Positioning: upright in bed Liquid/Solid Trials: ice chips, thin liquids, [place] thick liquids/Mildy thick liquids, Puree/IDDSI4, and Regular diet/IDDSI 7 Oral Phase Characteristics: intact labial seal, appearance of incomplete mastication of solids, andtrace residue lining oral structures Pharyngeal phase characteristics: suspected pharyngeal impairment, appearance of prolonged transition between oral and pharyngeal phase, latent cough response, and reflexive cough response The Jeffers Assessment of Swallowing Ability (MASA) was utilized to assess the patient's overall swallowing function. Alertness: 10-alert Cooperation: 10-cooperative Auditory Comprehension: 10-no deficits noted Respiration: 10-no chest infection Respiratory Rate for Swallow: 5-able to control rate for swallow Aphasia: 5-no deficits Apraxia: 5-no deficits Dysarthria: 5-no deficits Saliva: 5-no deficits Lip Seal: 5-no deficits Tongue Movement: 10-full range Tongue Strength: 10-no deficits noted Tongue Coordination: 10-no deficits noted Oral Prep: 10-no deficits noted Ga-no deficits noted Palate: 10-no deficits noted Bolus Clearance: 8-significant clearance/minimal residue present Oral Transit: 8-delayed >1 second Cough Reflex: 3-reflexive cough Voluntary Cough: 5-attempt inadequate Voice: 6-hoarse Trach: 10-no trach Pharyngeal Phase: 5-pooling/gurgling/incomplete elevation Pharyngeal Response: 5-cough before/during/after the swallow MASA Score: 175/200 (initial eval score: 124) MASA Dysphagia Severity Score: Mild (168-177) MASA Aspiration Risk Score: NIL ABNORMALITY DETECTED 170-200 Education: BUSINESS TECHNOLOGY TEACHER provided skilled verbal instruction to patient regarding rationale for skilled services, evaluation performance, recommendations for care, compensatory strategies and/or precautions, and recommended guidelines. Patient did not demonstrate evidence of learning Alerted nursing to evaluation performance and recommendations for care. Sign posted at bedside withfeeding guidelines with patient permission. Patient was left upright in bed with call light near. If this is the last Speech Therapy visit, please refer to this note as the discharge summary. Thank you for your referral. DENY STOKES MS [facility]-BUSINESS TECHNOLOGY TEACHER Speech Language Pathologist 02/02/2024 Visit Timing/Type Start Time: 1035 Stop Time: 1105 Time Calculation (min): 30 min Time Calculation Comment: SFT Type of visit: Treatment Treatment type for BilMin: TX Swallow/ Oral Dysfucnt (eg Dysphag) Swallow/Oral Function Treatment Time Entry: 30 BUSINESS TECHNOLOGY TEACHER Frequency: 5 sessions a week Speech Therapy Plan of Care Patient to be seen by Speech Therapy 4-5x/week to address impairments and functional limitations. Treatments to include:education and facilitation of compensatory strategies Preferred Language: Cymraes Goals to be achieved by: discharge Precautions: falls,safety, full code - BUSINESS TECHNOLOGY TEACHER to provide skilled instruction to patient/family/staff regarding recommendations, precautionsand strategies for improved health literacy, safety and discharge planning. - Patient to consume clinician led oral intake trials to determine candidacy for consistent oral intake. - Patient to consume consistent modified diet/liquid textures without evidence of associated adverse effects related dysphagia/aspiration - Completed MODIFIED BARIUM SWALLOW STUDY for comprehensive exam of swallow physiology and determine further intervention needs. - Mu-Ism of oral nutrition/hydration with optimal safety, adequacy and enjoyment. Electronically signed by Deny Stokes MS [facility]-BUSINESS TECHNOLOGY TEACHER at 02/02/2024 12:00 PM FORMS DESIGNER * Interdisciplinary - Chata Morrell, MOVIE SHOT CAMERA OPERATOR - 02/02/2024 8:54 AM CST Respiratory Therapy Assessment And Education Points 0 1 2 3 4 Score Pulmonary History No Smoking Smokes <1 ppd Smokes 1 ppd or more Pulmonary impairment (acute or chronic) Severe or Chronic exacerbation 3 Surgical Status None General Surgery Lower Abdominal Surgery Thoracic or Upper Abdominal Surgery Thoracic with Pulmonary Disease 0 CXR (from last 24 hrs) Clear Unavailable Infiltrates, Atelectasis or Pleural effusion Infiltrates in more than 1 lobe Infiltrates plus Atelectasis or Pleural effusion 1 Respirations Regular Pattern, RR 8-20 Increased, RR 21-25 Dyspnea on exertion, irregular pattern, RR 26-30 Use of accessory muscles, prolonged expiration, RR 31-35 Severe SOB with use of accessory muscles, RR >35 0 BS Clear Diminished Unilaterally Diminished Bilaterally Crackles in Bases Wheezing and/or Rhonchi 0 Cough Strong, Non- productive cough Strong, productive cough Weak, Non- productive cough Weak, productive cough No cough, may require suctioning 0 Mental status Alert and oriented Lethargic, follows commands Confused, does not follow commands Obtunded Comatose 0 Level of Activity Ambulatory Ambulatory with assistance Temporarily non-Ambulatory Bed rest, able to position self Bed rest, unable to position self 1 O2 required to keep SpO2 >=92% (or ordered goal) None 1-3 L/M or FiO2 25-35% 4-6 L/M or FiO2 35-50% >50% 100% 1 Total Score 6 Treatment Scoring Guide Frequency Utilize ORDER SET for all changes Severity Level 5 > 20 points Q2 and Q4 Albuterol Q2 and Ipratropium Q4 *Discontinue previous orders* Severity Level 4 16-20 points Q4 and PRN Duoneb Q4 and Albuterol Q2 PRN *Discontinue previous orders* Severity Level 3 11-15 points QID and PRN Duoneb QID and Albuterol Q4 PRN *Discontinue previous orders* Severity Level 2 6-10 points TID and Q6 PRN Albuterol only *Discontinue previous orders* Severity Level 1 0-5 points Q6 PRN Albuterol only *Discontinue previous orders* Home Regimen Home medication orders As per reconciled home medications Patient RTA Severity Level Is: level 2 Patient Progression Since Admission: improved Treatment Plan Adjusted: Yes Education Documented (within Education Tab): Yes Education Provided To: patient Comments: By: CHATA MORRELL CRT; 02/02/2024, 8:54 AM FORMS DESIGNER S DESIGNER * Interdisciplinary - Marleen Day RD - 02/02/2024 8:12 AM CST 01/30/2024-NG tube p[placement attempted, pt refused. S DESIGNER * Interdisciplinary - Marcelo Denise RN - 02/02/2024 6:55 AM CST Report received from SABRINA Prescott. Assumed patient care at this time. Patient A&Ox2-3. Vital signs per flowsheet. IV drip rates verified. Call light in reach, alarms on. No acute distress noted.Patient updated to plan of care. BSSR completed and 2 RN skin assessment completed. Patient turned and repositioned. S DESIGNER * Plan of Care - Kenyon Huber RN - 02/02/2024 5:08 AM CST Problem: Adult Inpatient Plan of Care Goal: Plan of Care Review Outcome: Ongoing (see interventions/notes) Flowsheets Taken 02/02/2024 0505 by KENYON Progress: progress towards functional goals is fair Outcome Evaluation: Patient alert and oriented to place and time, very forgetful this shift and impulsive. Patient agitated that he can not smoke cigarettes. Zyprexa given and precedex gtt restarted.Patient did not tolerate Bipap, O2 on at 3L. IVF and IV antibiotics given. blankenship patent. Speech to see today to advance diet. Taken 02/01/2024 0454 by ELSA Today's Goal: SpO2>88 Does the patient need assistance with discharge and/or transitioning to the next level of care?: Yes, case management already following Taken 01/31/2024 0536 by ELSA Plan of Care Reviewed With: patient Goal: Optimal Comfort and Wellbeing Outcome: Ongoing (see interventions/notes) Goal: Readiness for Transition of Care Outcome: Ongoing (see interventions/notes) Problem: Skin Injury Risk Increased Goal: Skin Health and Integrity Outcome: Ongoing (see interventions/notes) Problem: Fall Injury Risk Goal: Absence of Fall and Fall-Related Injury Outcome: Ongoing (see interventions/notes) Problem: Stroke, Ischemic (Includes Transient Ischemic Attack) Goal: Optimal Coping Outcome: Ongoing (see interventions/notes) Goal: Effective Bowel Elimination Outcome: Ongoing (see interventions/notes) Goal: Optimal Cerebral Tissue Perfusion Outcome: Ongoing (see interventions/notes) Goal: Optimal Cognitive Function Outcome: Ongoing (see interventions/notes) Goal: Improved Communication Skills Outcome: Ongoing (see interventions/notes) Goal: Optimal Functional Ability Outcome: Ongoing (see interventions/notes) Goal: Optimal Nutrition Intake Outcome: Ongoing (see interventions/notes) Goal: Effective Oxygenation and Ventilation Outcome: Ongoing (see interventions/notes) Goal: Improved Sensorimotor Function Outcome: Ongoing (see interventions/notes) Goal: Safe and Effective Swallow Outcome: Ongoing (see interventions/notes) Goal: Effective Urinary Elimination Outcome: Ongoing (see interventions/notes) Problem: Functional Deficit Goal: Improved Balance and Postural Control Outcome: Ongoing (see interventions/notes) Goal: Optimal Cognitive Function Outcome: Ongoing (see interventions/notes) Goal: Optimal Coordination Outcome: Ongoing (see interventions/notes) Goal: Improved Muscle Strength Outcome: Ongoing (see interventions/notes) Goal: Improved Muscle Tone Outcome: Ongoing (see interventions/notes) Goal: Optimal Range of Motion Outcome: Ongoing (see interventions/notes) Goal: Compensation for Sensory Deficit Outcome: Ongoing (see interventions/notes) Problem: Violence Risk or Actual Goal: Anger and Impulse Control Outcome: Ongoing (see interventions/notes) S DESIGNER * Zheng - Luis Manuel Wheeler RT - 02/02/2024 1:41 AM CST Found patient with Bipap off at this time-taken off by nursing due to patient agitation and not tolerating it well. S DESIGNER * Kenyon Anguiano RN - 02/01/2024 10:07 PM CST Patient agitated and multiple attempts to get out of bed. Patient wants to go outside for cigarettealthough pt agreed earlier to wearing a nicotine patch. [place] SHEETER OPERATOR gave new order for Zyprexa times 1 dose. S DESIGNER * Kenyon Anguiano RN - 02/01/2024 7:00 PM CST Report received from SABRINA Larose. Assumed patient care at this time. Patient A&Ox2. Vital signs per flowsheet. IV drip rates verified. Call light in reach, alarms on. No acute distress noted. Patient updated to plan of care. BSSR completed and 2 RN skin assessment completed. Patient turned and repositioned. S DESIGNER * Plan of Care - Lachelle Stokes RN - 02/01/2024 4:29 PM CST Problem: Adult Inpatient Plan of Care Goal: Plan of Care Review Outcome: Ongoing (see interventions/notes) Goal: Optimal Comfort and Wellbeing Outcome: Ongoing (see interventions/notes) Goal: Readiness for Transition of Care Outcome: Ongoing (see interventions/notes) Problem: Skin Injury Risk Increased Goal: Skin Health and Integrity Outcome: Ongoing (see interventions/notes) Problem: Fall Injury Risk Goal: Absence of Fall and Fall-Related Injury Outcome: Ongoing (see interventions/notes) Problem: Stroke, Ischemic (Includes Transient Ischemic Attack) Goal: Optimal Coping Outcome: Ongoing (see interventions/notes) Goal: Effective Bowel Elimination Outcome: Ongoing (see interventions/notes) Goal: Optimal Cerebral Tissue Perfusion Outcome: Ongoing (see interventions/notes) Goal: Optimal Cognitive Function Outcome: Ongoing (see interventions/notes) Goal: Improved Communication Skills Outcome: Ongoing (see interventions/notes) Goal: Optimal Functional Ability Outcome: Ongoing (see interventions/notes) Goal: Optimal Nutrition Intake Outcome: Ongoing (see interventions/notes) Goal: Effective Oxygenation and Ventilation Outcome: Ongoing (see interventions/notes) Goal: Improved Sensorimotor Function Outcome: Ongoing (see interventions/notes) Goal: Safe and Effective Swallow Outcome: Ongoing (see interventions/notes) Goal: Effective Urinary Elimination Outcome: Ongoing (see interventions/notes) Problem: Functional Deficit Goal: Improved Balance and Postural Control Outcome: Ongoing (see interventions/notes) Goal: Optimal Cognitive Function Outcome: Ongoing (see interventions/notes) Goal: Optimal Coordination Outcome: Ongoing (see interventions/notes) Goal: Improved Muscle Strength Outcome: Ongoing (see interventions/notes) Goal: Improved Muscle Tone Outcome: Ongoing (see interventions/notes) Goal: Optimal Range of Motion Outcome: Ongoing (see interventions/notes) Goal: Compensation for Sensory Deficit Outcome: Ongoing (see interventions/notes) S DESIGNER * Interdisciplinary - Lachelle Stokes RN - 02/01/2024 11:20 AM CST Pt up to chair at this time with 2 person assist and gait belt. S DESIGNER * Interdisciplinary - Lachelle Stokes RN - 02/01/2024 7:37 AM CST Patient report received from Elsa BENNETT. Pt resting in bed. Pt alert and oriented x3. Vital signs per flowsheet. Call light within reach. Bed alarm on. Pt updated to plan of care. No acute distress noted. S DESIGNER * Plan of Care - Elsa Weaver RN - 02/01/2024 4:58 AM CST Problem: Adult Inpatient Plan of Care Goal: Plan of Care Review Outcome: Ongoing (see interventions/notes) Flowsheets Taken 02/01/2024 4791 Progress: improving Today's Goal: SpO2>88 Outcome Evaluation: Patient placed on bipap for a short time this shift before he asked for it to be removed. He is currently on 3L NC. He has maintained spo2 above goal throughout the night. Patientis NPO with the exception of ice chips. Patient has frequent requests for ice chips and has had no signs of aspiration or distress. Swallow evaluation pending to advance diet. Patient is A&Ox3, pl easant, and has expressed motivation to begin therapy. Does the patient need assistance with discharge and/or transitioning to the next level of care?: Yes, case management already following Taken 01/31/2024 0500 Plan of Care Reviewed With: patient Goal: Optimal Comfort and Wellbeing Outcome: Ongoing (see interventions/notes) Goal: Readiness for Transition of Care Outcome: Ongoing (see interventions/notes) Problem: Skin Injury Risk Increased Goal: Skin Health and Integrity Outcome: Ongoing (see interventions/notes) Problem: Fall Injury Risk Goal: Absence of Fall and Fall-Related Injury Outcome: Ongoing (see interventions/notes) Problem: Stroke, Ischemic (Includes Transient Ischemic Attack) Goal: Optimal Coping Outcome: Ongoing (see interventions/notes) Goal: Effective Bowel Elimination Outcome: Ongoing (see interventions/notes) Goal: Optimal Cerebral Tissue Perfusion Outcome: Ongoing (see interventions/notes) Goal: Optimal Cognitive Function Outcome: Ongoing (see interventions/notes) Goal: Improved Communication Skills Outcome: Ongoing (see interventions/notes) Goal: Optimal Functional Ability Outcome: Ongoing (see interventions/notes) Goal: Optimal Nutrition Intake Outcome: Ongoing (see interventions/notes) Goal: Effective Oxygenation and Ventilation Outcome: Ongoing (see interventions/notes) Goal: Improved Sensorimotor Function Outcome: Ongoing (see interventions/notes) Goal: Safe and Effective Swallow Outcome: Ongoing (see interventions/notes) Goal: Effective Urinary Elimination Outcome: Ongoing (see interventions/notes) Problem: Functional Deficit Goal: Improved Balance and Postural Control Outcome: Ongoing (see interventions/notes) Goal: Optimal Cognitive Function Outcome: Ongoing (see interventions/notes) Goal: Optimal Coordination Outcome: Ongoing (see interventions/notes) Goal: Improved Muscle Strength Outcome: Ongoing (see interventions/notes) Goal: Improved Muscle Tone Outcome: Ongoing (see interventions/notes) Goal: Optimal Range of Motion Outcome: Ongoing (see interventions/notes) Goal: Compensation for Sensory Deficit Outcome: Ongoing (see interventions/notes) S DESIGNER * Interdisciplinary - Marcelo Denise RN - 01/31/2024 6:53 PM CST Patient report given to SABRINA Hunter. Patient resting in bed. Patient A&Ox4. Vital Signs per flowsheet. Call light within reach. Bed alarm on. Patient updated to plan of care. No acute distress noted. MARCELO DENISE RN S DESIGNER * Plan of Care - Marcelo Denise RN - 01/31/2024 3:34 PM CST Problem: Adult Inpatient Plan of Care Goal: Plan of Care Review Outcome: Ongoing (see interventions/notes) Goal: Optimal Comfort and Wellbeing Outcome: Ongoing (see interventions/notes) Goal: Readiness for Transition of Care Outcome: Ongoing (see interventions/notes) Problem: Skin Injury Risk Increased Goal: Skin Health and Integrity Outcome: Ongoing (see interventions/notes) Problem: Fall Injury Risk Goal: Absence of Fall and Fall-Related Injury Outcome: Ongoing (see interventions/notes) Problem: Stroke, Ischemic (Includes Transient Ischemic Attack) Goal: Optimal Coping Outcome: Ongoing (see interventions/notes) Goal: Effective Bowel Elimination Outcome: Ongoing (see interventions/notes) Goal: Optimal Cerebral Tissue Perfusion Outcome: Ongoing (see interventions/notes) Goal: Optimal Cognitive Function Outcome: Ongoing (see interventions/notes) Goal: Improved Communication Skills Outcome: Ongoing (see interventions/notes) Goal: Optimal Functional Ability Outcome: Ongoing (see interventions/notes) Goal: Optimal Nutrition Intake Outcome: Ongoing (see interventions/notes) Goal: Effective Oxygenation and Ventilation Outcome: Ongoing (see interventions/notes) Goal: Improved Sensorimotor Function Outcome: Ongoing (see interventions/notes) Goal: Safe and Effective Swallow Outcome: Ongoing (see interventions/notes) Goal: Effective Urinary Elimination Outcome: Ongoing (see interventions/notes) Problem: Functional Deficit Goal: Improved Balance and Postural Control Outcome: Ongoing (see interventions/notes) Goal: Optimal Cognitive Function Outcome: Ongoing (see interventions/notes) Goal: Optimal Coordination Outcome: Ongoing (see interventions/notes) Goal: Improved Muscle Strength Outcome: Ongoing (see interventions/notes) Goal: Improved Muscle Tone Outcome: Ongoing (see interventions/notes) Goal: Optimal Range of Motion Outcome: Ongoing (see interventions/notes) Goal: Compensation for Sensory Deficit Outcome: Ongoing (see interventions/notes) Problem: Confusion Acute Goal: Optimal Cognitive Function Outcome: Ongoing (see interventions/notes) S DESIGNER * Plan of Care - Loraine Pack PT - 01/31/2024 11:49 AM CST Patient is on hold from a physical therapy evaluation due to not being awake enough, per RN. S DESIGNER * Interdisciplinary - Marcelo Denise RN - 01/31/2024 7:00 AM CST Report received from SABRINA Hunter. Assumed patient care at this time. Patient mildly sedated and on Bipap at this time. Vital signs per flowsheet. IV drip rates verified. Call light in reach, alarms on. No acute distress noted. Patient updated to plan of care. BSSR completed and 2 RN skin assessmentcompleted. Patient turned and repositioned. S DESIGNER * Plan of Care - Elsa Weaver RN - 01/31/2024 5:38 AM CST Problem: Adult Inpatient Plan of Care Goal: Plan of Care Review Outcome: Ongoing (see interventions/notes) Flowsheets (Taken 01/31/2024 1041) Plan of Care Reviewed With: patient Progress: progress toward functional goals is gradual Today's Goal: SpO2>88 Outcome Evaluation: Patient placed on bipap for the majority of the night and maintained spo2 goal.Patient became restless and bipap removed, per flowsheet. Patient became agitated while on NC, requiring additional supplemental o2. Precedex started, per MAR, to maintain bipap compliance after dropping into the 60s per pulse ox. Does the patient need assistance with discharge and/or transitioning to the next level of care?: Yes, case management already following Goal: Optimal Comfort and Wellbeing Outcome: Ongoing (see interventions/notes) Goal: Readiness for Transition of Care Outcome: Ongoing (see interventions/notes) Problem: Skin Injury Risk Increased Goal: Skin Health and Integrity Outcome: Ongoing (see interventions/notes) Problem: Fall Injury Risk Goal: Absence of Fall and Fall-Related Injury Outcome: Ongoing (see interventions/notes) Problem: Stroke, Ischemic (Includes Transient Ischemic Attack) Goal: Optimal Coping Outcome: Ongoing (see interventions/notes) Goal: Effective Bowel Elimination Outcome: Ongoing (see interventions/notes) Goal: Optimal Cerebral Tissue Perfusion Outcome: Ongoing (see interventions/notes) Goal: Optimal Cognitive Function Outcome: Ongoing (see interventions/notes) Goal: Improved Communication Skills Outcome: Ongoing (see interventions/notes) Goal: Optimal Functional Ability Outcome: Ongoing (see interventions/notes) Goal: Optimal Nutrition Intake Outcome: Ongoing (see interventions/notes) Goal: Effective Oxygenation and Ventilation Outcome: Ongoing (see interventions/notes) Goal: Improved Sensorimotor Function Outcome: Ongoing (see interventions/notes) Goal: Safe and Effective Swallow Outcome: Ongoing (see interventions/notes) Goal: Effective Urinary Elimination Outcome: Ongoing (see interventions/notes) Problem: Functional Deficit Goal: Improved Balance and Postural Control Outcome: Ongoing (see interventions/notes) Goal: Optimal Cognitive Function Outcome: Ongoing (see interventions/notes) Goal: Optimal Coordination Outcome: Ongoing (see interventions/notes) Goal: Improved Muscle Strength Outcome: Ongoing (see interventions/notes) Goal: Improved Muscle Tone Outcome: Ongoing (see interventions/notes) Goal: Optimal Range of Motion Outcome: Ongoing (see interventions/notes) Goal: Compensation for Sensory Deficit Outcome: Ongoing (see interventions/notes) Problem: Confusion Acute Goal: Optimal Cognitive Function Outcome: Ongoing (see interventions/notes) S DESIGNER * Interdisciplinary - Luis Manuel Wheeler RT - 01/30/2024 9:39 PM CST Respiratory Therapy Assessment And Education Points 0 1 2 3 4 Score Pulmonary History No Smoking Smokes <1 ppd Smokes 1 ppd or more Pulmonary impairment (acute or chronic) Severe or Chronic exacerbation 3 Surgical Status None General Surgery Lower Abdominal Surgery Thoracic or Upper Abdominal Surgery Thoracic with Pulmonary Disease 0 CXR (from last 24 hrs) Clear Unavailable Infiltrates, Atelectasis or Pleural effusion Infiltrates in more than 1 lobe Infiltrates plus Atelectasis or Pleural effusion 2 Respirations Regular Pattern, RR 8-20 Increased, RR 21-25 Dyspnea on exertion, irregular pattern, RR 26-30 Use of accessory muscles, prolonged expiration, RR 31-35 Severe SOB with use of accessory muscles, RR >35 1 BS Clear Diminished Unilaterally Diminished Bilaterally Crackles in Bases Wheezing and/or Rhonchi 2 Cough Strong, Non- productive cough Strong, productive cough Weak, Non- productive cough Weak, productive cough No cough, may require suctioning 0 Mental status Alert and oriented Lethargic, follows commands Confused, does not follow commands Obtunded Comatose 1 Level of Activity Ambulatory Ambulatory with assistance Temporarily non-Ambulatory Bed rest, able to position self Bed rest, unable to position self 1 O2 required to keep SpO2 >=92% (or ordered goal) None 1-3 L/M or FiO2 25-35% 4-6 L/M or FiO2 35-50% >50% 100% 1 Total Score 11 Treatment Scoring Guide Frequency Utilize ORDER SET for all changes Severity Level 5 > 20 points Q2 and Q4 Albuterol Q2 and Ipratropium Q4 *Discontinue previous orders* Severity Level 4 16-20 points Q4 and PRN Duoneb Q4 and Albuterol Q2 PRN *Discontinue previous orders* Severity Level 3 11-15 points QID and PRN Duoneb QID and Albuterol Q4 PRN *Discontinue previous orders* Severity Level 2 6-10 points TID and Q6 PRN Albuterol only *Discontinue previous orders* Severity Level 1 0-5 points Q6 PRN Albuterol only *Discontinue previous orders* Home Regimen Home medication orders As per reconciled home medications Patient RTA Severity Level Is: level 3 per protocol Patient Progression Since Admission: improved Treatment Plan Adjusted: Yes Education Documented (within Education Tab): Yes Education Provided To: patient Comments: changed to level 3 per protocol By: LUIS MANUEL WHEELER RT; 01/30/2024, 9:39 PM FORMS DESIGNER S DESIGNER * Interdisciplinary - Paty Redding - 01/30/2024 3:49 PM CST Case Management Patient / Patient Building Maintenance Supervisor Contact Note Papito's readmission risk level (if calculated) is: 1-Low Patient Class: Inpatient Consecutive Inpatient Midnights 5 Actual day(s) of hospital stay (compare to working DRG):5 New Consult for Case Management? No Summary: Decision Maker: Patient is assumed to be the medical decision maker Telephoto Installer/Surgery Teacher Name: Marvin Joseph Met with Papito and introduced self and role and discussed plan of care. SNF list provided for review, no authorization will be required. Plan of Care:(Problem/ situation/ barrier + goals/ milestones + interventions + evaluation of progress = Plan of Care) Papito's primary medical problem this hospitalization is Cardiopulmonary arrest with successful resuscitation (HCC). Hospital Plan: PT/OT/BUSINESS TECHNOLOGY TEACHER, suction, 3L O2, cefepime, D5 Anticipated Discharge Plan: Home Family/ Caregiver's readiness, willingness and ability to support patient with anticipated community discharge plan: Did not speak with family/caregiver during this contact. IM Letter Documentation, if applicable Medicare Notice Given to Responsible Democrat: Yes, in person Date Form Given to Patient/Responsible Democrat: 01/26/24 No new referrals or updates for post-acute hospital services. S DESIGNER * Plan of Care - Gail Lopez RN - 01/30/2024 3:42 PM CST Problem: Adult Inpatient Plan of Care Goal: Plan of Care Review Outcome: Ongoing (see interventions/notes) Flowsheets Taken 01/30/2024 1541 by GAIL Progress: progress towards functional goals is fair Today's Goal: spo2 >88 Outcome Evaluation: 3L NC throughout my shift spo2 > 88 majority of the day. up to chair today. worked w BUSINESS TECHNOLOGY TEACHER, not cleared at this time. Taken 01/30/2024 0459 by MELISSA Plan of Care Reviewed With: patient Taken 01/26/2024 1721 by ALESSANDRA Does the patient need assistance with discharge and/or transitioning to the next level of care?: Yes, case management already following Goal: Optimal Comfort and Wellbeing Outcome: Ongoing (see interventions/notes) Goal: Readiness for Transition of Care Outcome: Ongoing (see interventions/notes) Problem: Skin Injury Risk Increased Goal: Skin Health and Integrity Outcome: Ongoing (see interventions/notes) Problem: Fall Injury Risk Goal: Absence of Fall and Fall-Related Injury Outcome: Ongoing (see interventions/notes) Problem: Stroke, Ischemic (Includes Transient Ischemic Attack) Goal: Optimal Coping Outcome: Ongoing (see interventions/notes) Goal: Effective Bowel Elimination Outcome: Ongoing (see interventions/notes) Goal: Optimal Cerebral Tissue Perfusion Outcome: Ongoing (see interventions/notes) Goal: Optimal Cognitive Function Outcome: Ongoing (see interventions/notes) Goal: Improved Communication Skills Outcome: Ongoing (see interventions/notes) Goal: Optimal Functional Ability Outcome: Ongoing (see interventions/notes) Goal: Optimal Nutrition Intake Outcome: Ongoing (see interventions/notes) Goal: Effective Oxygenation and Ventilation Outcome: Ongoing (see interventions/notes) Goal: Improved Sensorimotor Function Outcome: Ongoing (see interventions/notes) Goal: Safe and Effective Swallow Outcome: Ongoing (see interventions/notes) Goal: Effective Urinary Elimination Outcome: Ongoing (see interventions/notes) Problem: Functional Deficit Goal: Improved Balance and Postural Control Outcome: Ongoing (see interventions/notes) Goal: Optimal Cognitive Function Outcome: Ongoing (see interventions/notes) Goal: Optimal Coordination Outcome: Ongoing (see interventions/notes) Goal: Improved Muscle Strength Outcome: Ongoing (see interventions/notes) Goal: Improved Muscle Tone Outcome: Ongoing (see interventions/notes) Goal: Optimal Range of Motion Outcome: Ongoing (see interventions/notes) Goal: Compensation for Sensory Deficit Outcome: Ongoing (see interventions/notes) S DESIGNER * Plan of Care - Deny Stokes MS [facility]-BUSINESS TECHNOLOGY TEACHER - 01/30/2024 2:58 PM FORMS DESIGNER Speech-Language Pathology: Dysphagia Treatment Completed: 01/30/2024 Recommendations: Diet Solids Recommendation: No solids Diet Liquids Recommendations: Ice chips with staff supervision Recommended Form of Meds: Consider alternate route Feeding Guidelines: Upright for all oral intake Slow rate of intake Remain upright after oral intake Frequent oral care No oral intake when respiratory rate above 31 Instrumental assessment : may be beneficial if symptoms persist Patient would benefit from: continued skilled intervention and patient/family education Assessment: Patient presented with continued overt evidence of boom-pharyngeal dysphagia this date and demonstrated slight/minimal progress toward roman catholic of oral nutrition/hydration with optimal safety, adequacy and enjoyment. Patient presented with continued lingual strength deficit, severely delayed swallow initiation, poor cough strength and suboptimal respiratory function. Recommend continue NPO withsupervised ice chip trials when alert. Patient is at elevated risk for adverse effects related to dysphagia/aspiration and continued skilled intervention is warranted. The prognosis for the patient to meet nutritional needs by mouth is poor. based on degree of impairment, stimulability for treatment, baseline medical condition. Strongest to weakest predictors of aspiration pneumonia exhibited by this patient are Dependence for feeding, Dependence for oral care, Number of decayed teeth, More than one medical diagnosis, Number of medication prescribed, Xerostomia (dry mouth), Reduced activity level, Aspiration of food/liquid, and GERD(Langmore et al). Silent aspiration cannot be excluded clinically. If concern for silent aspiration, please refer formodified barium swallow study. Subjective: Reviewed patient status with nursing prior to visit. Patient seated upright in recliner with granddaughter present. Patient awake, cooperative Treatment: Due to correlation of orientation and swallow safety, patient was asked open ended orientation questions. Patient accurately answered all questions with only additional time provided. Patient exhibited open mouth posture. BUSINESS TECHNOLOGY TEACHER provided skilled instruction to patient/family for rationale for nasal inhalation over open mouth breathing. Patient demonstrated improved lingual protrusion, improved lingual lateralization with improved endurance.BUSINESS TECHNOLOGY TEACHER provided skilled instruction to patient/family on need to improve oral motor strength and coordination. Patient need for assist with procedure: Dependent, Positioning: upright in recliner Liquid/Solid Trials: ice chips Oral Phase Characteristics: absent labial seal, appearance of incomplete mastication of solids, appearance of mistimed oral phase, and residue collection on oral structures Pharyngeal phase characteristics: suspected pharyngeal impairment, appearance of prolonged transition between oral and pharyngeal phase, appearance of inconsistent laryngeal elevation, reflexive cough response, and no coping/gurgling BUSINESS TECHNOLOGY TEACHER provided verbal cues to patient to use volitional cough in response to increased congestion andpatient reported inability to clear bolus. Suspect patient's poor cough strength impeded complete pharyngeal clearance and increased risk of airway invasion. The Jeffers Assessment of Swallowing Ability (MASA) was utilized to assess the patient's overall swallowing function. Alertness: 10-alert Cooperation: 10-cooperative Auditory Comprehension: 6-follows simple commands Respiration: 2-chest infection Respiratory Rate for Swallow: 3-some independent control Aphasia: 5-no deficits Apraxia: 5-no deficits Dysarthria: 5-no deficits Saliva: 5-no deficits Lip Seal: 2-incomplete seal Tongue Movement: 8-mild impairment in range Tongue Strength: 5-unilateral weakness Tongue Coordination: 5-gross incoordination Oral Prep: 6-minimal chew/gravity assisted Ga-diminished bilaterally Palate: 8-slight asymmetry Bolus Clearance: 5-some clearance/residue present Oral Transit: 6-delayed >5 seconds Cough Reflex: 3-reflexive cough Voluntary Cough: 5-attempt inadequate Voice: 4-wet/gurgling Trach: 10-no trach Pharyngeal Phase: 5-pooling/gurgling/incomplete elevation Pharyngeal Response: 1-not coping/gurgling MASA Score: 129/200 (initial eval score: 124) MASA Dysphagia Severity Score: Severe (<138) MASA Aspiration Risk Score: SEVERE <140 Education: BUSINESS TECHNOLOGY TEACHER provided skilled verbal instruction to patient and family member regarding rationale for skilled services, therapy performance, compensatory strategies and/or precautions, and recommended guidelines. Patient did not demonstrate evidence of learning Alerted nursing to evaluation performance and recommendations for care. Patient remained seated in recliner with call light near. If this is the last Speech Therapy visit, please refer to this note as the discharge summary. Thank you for your referral. DENY STOKES MS CCC-BUSINESS TECHNOLOGY TEACHER Speech Language Pathologist 01/30/2024 Visit Timing/Type Start Time: 1430 Stop Time: 1450 Time Calculation (min): 20 min Time Calculation Comment: SFT BUSINESS TECHNOLOGY TEACHER Received On: 01/29/24 Type of visit: Treatment Treatment type for BilMin: TX Swallow/ Oral Dysfucnt (eg Dysphag) Swallow/Oral Function Treatment Time Entry: 20 BUSINESS TECHNOLOGY TEACHER Frequency: 5 sessions a week Speech Therapy Plan of Care Patient to be seen by Speech Therapy 4-5x/week to address impairments and functional limitations. Treatments to include:education and facilitation of compensatory strategies Preferred Language: Cymraes Goals to be achieved by: discharge Precautions: falls,safety, full code - BUSINESS TECHNOLOGY TEACHER to provide skilled instruction to patient/family/staff regarding recommendations, precautionsand strategies for improved health literacy, safety and discharge planning. - Patient to consume clinician led oral intake trials to determine candidacy for consistent oral intake. - Patient to consume consistent modified diet/liquid textures without evidence of associated adverse effects related dysphagia/aspiration - Completed MODIFIED BARIUM SWALLOW STUDY for comprehensive exam of swallow physiology and determine further intervention needs. - Mu-Ism of oral nutrition/hydration with optimal safety, adequacy and enjoyment. S DESIGNER * Plan of Care - Loraine Pack, PT - 01/30/2024 2:55 PM CST Patient was too fatigued to tolerate [id number] therapy sessions per occupational therapist. She just saw him and performed a [place] lift transfer due to weakness. Patient may be seen tomorrow for PT evaluation. S DESIGNER * Plan of Care - Gail Loredo OT - 01/30/2024 1:40 PM CST Activity Recommendations: Recommendations for floor staff include transfer to recliner and requires Dependent assist with Lift equipment. Activity recommendations communicated with RN and on white board. Discharge Recommendations: From a therapy perspective, at the time of discharge it appears that patient would benefit from [facility] with continued Therapy due to decreased independence with ADL and transfers. Therapist discussed this recommendation with patient and his sister DME recommendations include:To be determined Assessment: Significant occupational therapist findings with this patient include Weakness, Decreased endurance, Decreased strength, Decreased range of motion, Decreased cognition, Impaired balance, Impaired coordination, and Decreased cardiopulmonary endurance that leads to functional limitations including dec reased ability to transfer to recliner. This represents a functional decline that requires acute OT intervention. Patient will benefit fromoccupational therapy to address these deficits during their hospitalization. Strengths of this patient include Family support, Good participation/motivation, and Independent prior to admission. Anticipate patient will progress toward stated goals with therapeutic intervention. OT Plan of Care Date of Initial Evaluation: 01/30/24 Patient to be seen by Occupational Therapy 3 to 4 x/week to address impairments and functional limitations. Treatments to include: Self care retraining, Balance training, Cognition, Therapeutic activities, Endurance training, Mobility/Transfers, Safety, and Therapeutic exercise Precautions: Fall, Monitor Vitals, and safety Goals to be achieved by: 02/06/24 - Patient will perform bed mobility with Moderate assist to be able to assist with positioning. - Patient will perform self care transfers chair and commode with Moderate assist to decrease burden of caregiver assist. - Patient will demo F balance for toileting tasks. - Patient will participate in therapeutic exercise to increase bilateral upper extremity strength and activity tolerance. - Patient will participate in fine and gross motor activities to improve motor planning skills in bilateral upper extremity for dressing. - Patient will improve AM-PAC score to be greater than or equal to 20 points to indicate improved overall daily function. Patient stated goal: unable to state Preferred Language Cymraes Occupational Therapy Initial Evaluation Subjective: I feel fine . Pain: (0-10) Pain Rating: Rest: 0 (0-10) Pain Rating: Activity: 0 Home Environment: Patient lives with son (works from home) in Single story home. Patient has ~2 stairs to enter with 1 rails. Home has walk-in shower, shower chair, shower grab bars, and cane. Prior Level of Function: Mobility/Transfers: Completed independently and Required assistive device (cane) Bathing: Completed independently Dressing: Completed independently Grooming: Completed independently Self-Feeding: Completed independently Toileting: Completed independently Homemaking: daughter in law completes meals, cleaning and laundry Driving: son provides transportation Leisure/Hobbies/Occupation: watches TV, takes walks Examination: History of present illness: This is a 78 y.o. year old male who was admitted on 01/25/2024 for Cardiopulmonary Arrest. Relevant past medical history includes: has a past medical history of A-fib ([facility]), Aortic valve stenosis, BPH (benign prostatic hyperplasia), CAD (coronary artery disease), Chronic diastolic heart failure ([facility]), COPD (chronic obstructive pulmonary disease) ([facility]), CVA (cerebral vascular accident) ([facility]), DM type 2 (diabetes mellitus, type 2) ([facility]), HLD (hyperlipidemia), SD (myocardial infarction) ([facility]), Mitral valve stenosis, Pulmonary HTN ([facility]), Seizures ([facility]), and TIA (transient ischemic attack). Observations/Medical Equipment: Patient was seen laying in supine, SpO2= 88% on 3 L of O2 Orientation: Patient oriented to person. Commanding: follows 1 step commands Short term memory: Impaired watermaster memory: Impaired Cognition: Patient would benefit from further testing on a future date. Safety awareness: Impaired Range of Motion RUE: WFL except R shoulder = 0/80 LUE: WFL except L shoulder = 0/80 Upper Extremity Tone: o No current concerns Strength Right upper extremity: 2+/5 proximally and 3-/5 distally Left upper extremity: 2+/5 proximally and 3-/5 distally Bed mobility ? Rolling: Maximal assist with Set up and Verbal Cues using Draw sheet. Bed Mobility Details: Verbal cues to flex LE and reach for bed rail. Transfers: ? Bed to chair transfer with Dependent assist and Set up and Verbal Cues using Lift equipment. Transfer Details: Patient required [place] lift Sitting balance: Static: fair (sitting up in recliner) Dynamic: NT Standing balance: Static: NT Dynamic: NT Self Cares: Dependent in ADL due to B UE weakness Coordination: Decreased due to weakness and limited ROM/strength Sensation: RUE: Within functional limits LUE: Within functional limits Vision: o no deficits noted Endurance: Fair Education provided: Benefits of OT, call light, mobiities Outcome Measure: [place] AM-PAC 6 Clicks Daily Activity How much help from another person does the patient currently need ??? 1.Putting on and taking off lower body clothing? 1 Unable 2. Bathing (including washing, rinsing, drying?) 1 Unable 3. Toileting, which includes using toilet, bedpan or urinal? 1 Unable 4. Putting on and taking off regular upper body clothing? 2 A Lot 5. Taking care of personal grooming such as brushing teeth? 2 A Lot 6. Eating meals? 2 A Lot Raw Score 9 18 or Less= predictive of discharge to institutional setting 19-24 predictive of discharge to home actual discharge disposition may be impacted by other factors Juni Ahumada at [facility]. Association of A-PAC ???6 Clicks?? Basic Mobility and Daily Activity Scores with Discharge Destination. PTJ. March 2020 Patient left up in chair with chair alarm on and call light in reach. OT Eval /Treat Visit and Timing Start Time: 1332 Stop Time: 1415 Time Calculation (min): 43 min OT Received On: 01/30/24 Type of visit: Evaluation, Treatment Treatment Type: Therapeutic Activities OT Evaluation (Moderate) Time Entry: 15 Therapeutic Activity Time Entry: 28 All charges today are appropriate and separate from each other. Next session plan to continue per POC. GAIL LOREDO OT S DESIGNER * Plan of Care - Deny Stokes MS [facility]-BUSINESS TECHNOLOGY TEACHER - 01/30/2024 10:20 AM FORMS DESIGNER Speech-Language Pathology: Dysphagia Treatment Completed: 01/30/2024 Recommendations: Diet Solids Recommendation: No solids Diet Liquids Recommendations: Ice chips with staff supervision Recommended Form of Meds: Consider alternate route Feeding Guidelines: Upright for all oral intake Slow rate of intake Remain upright after oral intake Frequent oral care No oral intake when respiratory rate above 31 Instrumental assessment : may be beneficial if symptoms persist Patient would benefit from: continued skilled intervention and patient/family education Assessment: Patient presented with continued evidence of dysphagia this date and demonstrated minimal progress toward roman catholic of oral nutrition/hydration with optimal safety, adequacy and enjoyment. Patient's laryngeal deconditioning, emergent intubation and current medical status directly impede safety and adequacy of oral intake. Given level of debility, alternate/short term means of alternative nutrition/hydration should be considered in the following days. Patient is at elevated risk for adverse effects related to dysphagia/aspiration and continued skilled intervention is warranted. The prognosis for the patient to meet nutritional needs by mouth is fair. based on degree of impairment, stimulability for treatment, baseline medical condition. Strongest to weakest predictors of aspiration pneumonia exhibited by this patient are Dependence for feeding, Dependence for oral care, Number of decayed teeth, Tube feeding, More than one medical diagnosis, Number of medication prescribed, Current smoker, Xerostomia (dry mouth), Reduced activity level, Aspiration of food/liquid, and GERD(Langmore et al). Silent aspiration cannot be excluded clinically. If concern for silent aspiration, please refer formodified barium swallow study. Subjective: Reviewed patient status with nursing prior to visit. Nursing reported consistent oral care and needfor oral suctioning due to poor secretion management and cough strength. Treatment: Due to correlation of orientation status and swallow safety, patient was asked open ended orientation questions. Patient oriented to self and generalized place only. BUSINESS TECHNOLOGY TEACHER provided immediate verbal feedback and instruction to patient regarding orientation information and rationale for admit. BUSINESS TECHNOLOGY TEACHER provided skilled instruction to patient regarding need for access for nutrition/hydration, current level of debility and options for care. Patient did not provide evidence of learning and appeared to have visual and auditory hallucinations during interaction. Nursing notified. Patient demonstrated slowed, incomplete lingual lateralization upon request. Patient cough strengthdemonstrated minimal strength. With max verbal cues, patient able to complete volitional cough x4 only before patient report of fatigue. No oral intake trials due to level of debility. Education: BUSINESS TECHNOLOGY TEACHER provided skilled verbal instruction to patient regarding rationale for skilled services, therapy performance, patient specific risk factors for adverse effects related to dysphagia/aspiration, recommendations for care, compensatory strategies and/or precautions, and recommended guidelines. Patient did not demonstrate evidence of learning Alerted nursing to evaluation performance and recommendations for care. Sign posted at bedside withfeeding guidelines with patient permission. Patient was positioned upright in bed with call light near. If this is the last Speech Therapy visit, please refer to this note as the discharge summary. Thank you for your referral. DENY STOKES MS CCC-BUSINESS TECHNOLOGY TEACHER Speech Language Pathologist 01/30/2024 Visit Timing/Type Start Time: 914 Stop Time: 924 Time Calculation (min): 10 min Time Calculation Comment: SFT BUSINESS TECHNOLOGY TEACHER Received On: 01/29/24 Type of visit: Treatment Treatment type for BilMin: TX Swallow/ Oral Dysfucnt (eg Dysphag) Swallow/Oral Function Treatment Time Entry: 10 BUSINESS TECHNOLOGY TEACHER Frequency: 5 sessions a week Speech Therapy Plan of Care Patient to be seen by Speech Therapy 4-5x/week to address impairments and functional limitations. Treatments to include:education and facilitation of compensatory strategies Preferred Language: Cymraes Goals to be achieved by: discharge Precautions: falls,safety, full code - BUSINESS TECHNOLOGY TEACHER to provide skilled instruction to patient/family/staff regarding recommendations, precautionsand strategies for improved health literacy, safety and discharge planning. - Patient to consume clinician led oral intake trials to determine candidacy for consistent oral intake. - Patient to consume consistent modified diet/liquid textures without evidence of associated adverse effects related dysphagia/aspiration - Completed MODIFIED BARIUM SWALLOW STUDY for comprehensive exam of swallow physiology and determine further intervention needs. - Mu-Ism of oral nutrition/hydration with optimal safety, adequacy and enjoyment. S DESIGNER * Interdisciplinary - Gail Lopez RN - 01/30/2024 9:53 AM FORMS DESIGNER Pt refusing NG placement, Isabel notified S DESIGNER * Interdisciplinary - Melissa Chowdhury RN - 01/30/2024 6:55 AM CST Patient report given to SABRINA Domingo. Patient resting in bed. Patient A&Ox3-4. Patient turned/repositioned and skin assessed with oncoming RN. Vital Signs per flowsheet. Call light within reach. Bed alarm on. Patient updated to plan of care. No acute distress noted. MELISSA CHOWDHURY RN S DESIGNER * Plan of Care - Melissa Chowdhury RN - 01/30/2024 5:03 AM CST Problem: Adult Inpatient Plan of Care Goal: Plan of Care Review Outcome: Ongoing (see interventions/notes) Flowsheets Taken 01/30/2024 0459 by MELISSA Plan of Care Reviewed With: patient Progress: progress toward functional goals as expected Today's Goal: wear BiPAP, remain afebrile Outcome Evaluation: Patient extubated during day shift today. 3L NC during the day and wore BiPAP throughout the night. SpO2>95% on BiPAP. Restless and awake all night. Afebrile and no c/o pain this shift. Patient is more alert, but difficult to understand when talking. Plans for BUSINESS TECHNOLOGY TEACHER/PT/OT evaluation. Taken 01/26/2024 1721 by ALESSANDRA Does the patient need assistance with discharge and/or transitioning to the next level of care?: Yes, case management already following Goal: Optimal Comfort and Wellbeing Outcome: Ongoing (see interventions/notes) Intervention: Monitor Pain and Promote Comfort Flowsheets (Taken 01/30/2024 0300) Pain Management Interventions: care clustered pillow support provided position adjusted quiet environment facilitated relaxation techniques promoted Intervention: Provide Person-Centered Care Flowsheets (Taken 01/30/2024 0300) Trust Relationship/Rapport: care explained choices provided emotional support provided empathic listening provided questions answered reassurance provided respect patient/family decisions provided safe/supportive environment facilitated nonverbal communication acknowledged therapeutic presence provided thoughts/feelings acknowledged Goal: Readiness for Transition of Care Outcome: Ongoing (see interventions/notes) Problem: Skin Injury Risk Increased Goal: Skin Health and Integrity Outcome: Ongoing (see interventions/notes) Intervention: Optimize Skin Protection Flowsheets (Taken 01/30/2024299) Activity Management: bedrest Pressure Reduction Techniques: frequent weight shift encouraged heels elevated off bed weight shift assistance provided Head of Bed (HOB) Positioning: HOB at 30-45 degrees Pressure Reduction Devices: pressure-redistributing mattress utilized Skin Protection: incontinence pads utilized transparent dressing maintained Problem: Fall Injury Risk Goal: Absence of Fall and Fall-Related Injury Outcome: Ongoing (see interventions/notes) Intervention: Identify and Manage Contributors Flowsheets Taken 01/30/2024299 Self-Care Promotion: independence encouraged BADL personal objects within reach Taken 01/29/2024 190 Medication Review/Management: medications reviewed Intervention: Promote Injury-Free Environment Flowsheets (Taken 01/30/2024299) Safety Promotion/Fall Prevention: bed alarm fall reduction program maintained lighting adjusted for task/safety nonskid shoes/slippers when out of bed room near unit station Problem: Stroke, Ischemic (Includes Transient Ischemic Attack) Goal: Optimal Coping Outcome: Ongoing (see interventions/notes) Intervention: Support Psychosocial Response to Stroke Flowsheets (Taken 01/30/2024299) Supportive Measures: active listening utilized positive reinforcement provided relaxation techniques promoted self-care encouraged Family/Support System Care: self-care encouraged support provided Goal: Effective Bowel Elimination Outcome: Ongoing (see interventions/notes) Goal: Optimal Cerebral Tissue Perfusion Outcome: Ongoing (see interventions/notes) Intervention: Protect and Optimize Cerebral Perfusion Flowsheets (Taken 01/30/2024299) Sensory Stimulation Regulation: care clustered lighting decreased quiet environment promoted Cerebral Perfusion Promotion: blood pressure monitored Goal: Optimal Cognitive Function Outcome: Ongoing (see interventions/notes) Intervention: Optimize Cognitive Function Flowsheets (Taken 01/30/2024299) Sensory Stimulation Regulation: care clustered lighting decreased quiet environment promoted Reorientation Measures: calendar in view clock in view reorientation provided Goal: Improved Communication Skills Outcome: Ongoing (see interventions/notes) Intervention: Optimize Communication Skills Flowsheets (Taken 01/30/2024299) Communication Enhancement Strategies: one-step directions provided Goal: Optimal Functional Ability Outcome: Ongoing (see interventions/notes) Intervention: Optimize Functional Ability Flowsheets (Taken 01/30/2024299) Activity Management: bedrest Self-Care Promotion: independence encouraged BADL personal objects within reach Goal: Optimal Nutrition Intake Outcome: Ongoing (see interventions/notes) Goal: Effective Oxygenation and Ventilation Outcome: Ongoing (see interventions/notes) Intervention: Optimize Oxygenation and Ventilation Flowsheets Taken 01/30/2024 0300 Head of Bed (HOB) Positioning: HOB at 30-45 degrees Taken 01/29/2024 1900 Airway/Ventilation Management: HOB elevated 30-45 degrees Goal: Improved Sensorimotor Function Outcome: Ongoing (see interventions/notes) Intervention: Optimize Range of Motion, Motor Control and Function Flowsheets Taken 01/30/2024 0300 Positioning/Transfer Devices: pillows in use Taken 01/29/2024 1900 Range of Motion: ROM (range of motion) performed Intervention: Optimize Sensory and Perceptual Ability Flowsheets (Taken 01/30/2024 0300) Pressure Reduction Techniques: frequent weight shift encouraged heels elevated off bed weight shift assistance provided Pressure Reduction Devices: pressure-redistributing mattress utilized Goal: Safe and Effective Swallow Outcome: Ongoing (see interventions/notes) Intervention: Promote and Optimize Fluid and Food Intake Flowsheets (Taken 01/29/2024 1900) Aspiration Precautions: oral hygiene care promoted Goal: Effective Urinary Elimination Outcome: Ongoing (see interventions/notes) Intervention: Promote Effective Bladder Elimination Flowsheets (Taken 01/29/2024 2300) Urinary Elimination Promotion: catheter patency maintained S DESIGNER * Interdisciplinary - Melissa Chowdhury RN - 01/29/2024 6:53 PM CST Report received from SABRINA Cardenas. Assumed patient care at this time. Patient A&Ox1-2, difficult to understand. Patient turned/repositioned and skin assessed with off going RN. Vital signs per flowsheet. No IV drips running at this time. Call light in reach, alarms on. No acute distress noted. Patient updated to plan of care. MELISSA CHOWDHURY RN S DESIGNER * Interdisciplinary - Clyde Middleton RN - 01/29/2024 6:50 PM CST Patient report given to SABRINA Torres. Patient resting in bed. Vital Signs per flowsheet. Call light within reach. Bed alarm on. Patient updated to plan of care. Frequent suctioning done to assist patient in clearing his oral secretions. CLYDE MIDDLETON RN S DESIGNER * Plan of Care - Clyde Middleton RN - 01/29/2024 5:00 PM CST Problem: Adult Inpatient Plan of Care Goal: Plan of Care Review Outcome: Ongoing (see interventions/notes) Goal: Optimal Comfort and Wellbeing Outcome: Ongoing (see interventions/notes) Goal: Readiness for Transition of Care Outcome: Ongoing (see interventions/notes) Problem: Skin Injury Risk Increased Goal: Skin Health and Integrity Outcome: Ongoing (see interventions/notes) Problem: Fall Injury Risk Goal: Absence of Fall and Fall-Related Injury Outcome: Ongoing (see interventions/notes) Problem: Restraint, Nonviolent Goal: Absence of Harm or Injury Outcome: Ongoing (see interventions/notes) Problem: Stroke, Ischemic (Includes Transient Ischemic Attack) Goal: Optimal Coping Outcome: Ongoing (see interventions/notes) Goal: Effective Bowel Elimination Outcome: Ongoing (see interventions/notes) Goal: Optimal Cerebral Tissue Perfusion Outcome: Ongoing (see interventions/notes) Goal: Optimal Cognitive Function Outcome: Ongoing (see interventions/notes) Goal: Improved Communication Skills Outcome: Ongoing (see interventions/notes) Goal: Optimal Functional Ability Outcome: Ongoing (see interventions/notes) Goal: Optimal Nutrition Intake Outcome: Ongoing (see interventions/notes) Goal: Effective Oxygenation and Ventilation Outcome: Ongoing (see interventions/notes) Goal: Improved Sensorimotor Function Outcome: Ongoing (see interventions/notes) Goal: Safe and Effective Swallow Outcome: Ongoing (see interventions/notes) Goal: Effective Urinary Elimination Outcome: Ongoing (see interventions/notes) Problem: Mechanical Ventilation Invasive Goal: Effective Communication Outcome: Ongoing (see interventions/notes) Goal: Optimal Device Function Outcome: Ongoing (see interventions/notes) Goal: Mechanical Ventilation Liberation Outcome: Ongoing (see interventions/notes) Goal: Optimal Nutrition Delivery Outcome: Ongoing (see interventions/notes) Goal: Absence of Device-Related Skin and Tissue Injury Outcome: Ongoing (see interventions/notes) Goal: Absence of Ventilator-Induced Lung Injury Outcome: Ongoing (see interventions/notes) S DESIGNER * Plan of Care - Deny Stokes MS [facility]-BUSINESS TECHNOLOGY TEACHER - 01/29/2024 4:13 PM FORMS DESIGNER Speech-Language Pathology: Clinical Swallow Evaluation Completed: 01/29/2024 Recommendations: Diet Solids Recommendation: No solids Diet Liquids Recommendations: Ice chips with staff supervision Recommended Form of Meds: Consider alternate route Feeding Guidelines: Upright for all oral intake Slow rate of intake Remain upright after oral intake Frequent oral care No oral intake when respiratory rate above 31 Recommendations communicated with RN Instrumental assessment : may be beneficial Patient would benefit from: continued skilled intervention and patient/family education Assessment: Within the constraints of a clinical swallowing evaluation, patient presented with overt clinical evidence of boom-pharyngeal dysphagia this date. Suspect etiology of impairment related to laryngeal deconditioning secondary to prolonged intubation,current medical status and medical history. Recommend introduce intermittent ice chips with nursing assistance when alert to promote oral hydration. Patient is at elevated risk for associated adverse effects related to dysphagia/aspiration and continued skilled intervention is warranted. The prognosis for the patient to meet nutritional needs by mouth is fair. based on degree of impairment, stimulability for treatment, baseline medical condition. Strongest to weakest predictors of aspiration pneumonia exhibited by this patient are Dependence for feeding, Dependence for oral care, Number of decayed teeth, Tube feeding, More than one medical diagnosis, Number of medication prescribed, Current smoker, Xerostomia (dry mouth), Reduced activity level, Aspiration of food/liquid, and GERD(Feli et al). Silent aspiration cannot be excluded clinically. If concern for silent aspiration, please refer formodified barium swallow study. History: HPI: Patient presented to ED on 01/25/2024 with initial complaint for altered mental status after being found by family. Patient had recent move from [place] after of spouse, lives with children. During ED work up, patient had witnessed seizure, lost pulse, underwent approximately three minutes of CPR and emergently intubated. Initial head CT unremarkable for acute process. CTA negative for acute process. Initial work up for cardiac arrest, sepsis possible lung v urine source, NSTEMI, concerns for aspiration v CAP, breakthrough seizure. Patient extubated on 01/29/24 with transfer to nasal cannula at 3L. PMH: Patient has a past medical history of A-fib ([facility]), Aortic valve stenosis, BPH (benign prostatic hyperplasia), CAD (coronary artery disease), Chronic diastolic heart failure ([facility]), COPD (chronic obstructive pulmonary disease) ([facility] CVA (cerebral vascular accident) ([facility] DM type 2 (diabetes mellitus, type 2) ([facility] HLD (hyperlipidemia), SD (myocardial infarction) ([facility]), Mitral valve stenosis, Pulmonary HTN ([facility]), Seizures ([facility]), and TIA (transient ischemic attack). tobacco dependence Previous Speech Pathology intervention: None prior Subjective: Order received for clinical swallow eval due to s/p extubation. Chart review completed, reviewed patient status with nursing, Clyde, to obtain permission for PO trials. Current Hospital Diet: NPO, No liquids Examination: Patient/Family report: Patient reclined in bed, chronic open mouth posture, respiratory rate in midto high 20s Patient/Caregiver Goal or Patient Reported Outcome: none reported Oral Motor: Patient exhibited with evidence of structural abnormality or strength deficit during the oral [facility] exam Dentition: Natural, Loose, Missing, and Poor Dentition Oral mucosa: intact Facial Symmetry: intact, Lingual ROM/Strength: intact lingual lateralization, incomplete velopharyngeal elevation and symmetry Respiratory Status: NC in place History of recent intubation: Yes- see above details Orientation/Communication: Due to correlation of orientation and swallow status, the patient was asked open ended orientation questions. Patient accurately answered with less than 50% accuracy when provided with maximum assistfrom clinician. Patient demonstrated ability to communicate at word to simple phrase level, primarily only responsive to questions, poor speech intelligibility. Poor hearing acuity Clinical Swallow Examination: Patient level of assist required: Dependent, Positioning: reclined at 45 degrees in bed Liquid/Solid Trials: ice chips Oral Phase Characteristics: absent labial seal, appearance of incomplete mastication of solids, Minimal mastication evident, and residue collection on oral structures Pharyngeal phase characteristics: suspected pharyngeal impairment, appearance of prolonged transition between oral and pharyngeal phase, latent cough response, reflexive cough response, and required deep suctioning secondary to congestion and weak cough response Objective Outcome Measures: To screen for aspiration, the [place] Swallow Protocol was attempted due its high reliability and sensitivity. Patient UNABLE to follow commands and screen tool was terminated. The [place] Assessment of Swallowing Ability (MASA) was utilized to assess the patient's overall swallowing function. Alertness: 8-fluctuates Cooperation: 10-cooperative Auditory Comprehension: 4-occasional motor response Respiration: 2-chest infection Respiratory Rate for Swallow: 5-able to control rate for swallow Aphasia: 3-expresses self in limited manner (short phrases/words) Apraxia: 5-no deficits Dysarthria: 2-speech unintelligible Saliva: 4-frothy/expectorated Lip Seal: 2-incomplete seal Tongue Movement: 6-incomplete movement Tongue Strength: 8-minimal weakness Tongue Coordination: 5-gross incoordination Oral Prep: 6-minimal chew/gravity assisted Ga-diminished/absent unilaterally Palate: 8-slight asymmetry Bolus Clearance: 5-some clearance/residue present Oral Transit: 6-delayed >5 seconds Cough Reflex: 3-reflexive cough Voluntary Cough: 5-attempt inadequate Voice: 4-wet/gurgling Trach: 10-no trach Pharyngeal Phase: 5-pooling/gurgling/incomplete elevation Pharyngeal Response: 5-cough before/during/after the swallow MASA Score: 124/200 MASA Dysphagia Severity Score: Severe (<138) MASA Aspiration Risk Score: SEVERE <140 Education: BUSINESS TECHNOLOGY TEACHER provided skilled verbal instruction to patient regarding rationale for skilled services, evaluation performance, patient specific risk factors for adverse effects related to dysphagia/aspiration,recommendations for care, compensatory strategies and/or precautions, and recommended guidelines. Patient did not demonstrate evidence of learning Alerted nursing to evaluation performance and recommendations for care. Whiteboard updated at bedside with feeding guidelines with patient permission. Patient was reclined in bed with call light near. If this is the last Speech Therapy visit, please refer to this note as the discharge summary. Thank you for your referral. DENY STOKES MS [facility]-BUSINESS TECHNOLOGY TEACHER Speech Language Pathologist 01/29/2024 Visit Timing/Type Start Time: 1530 Stop Time: 1550 Time Calculation (min): 20 min Time Calculation Comment: SFE BUSINESS TECHNOLOGY TEACHER Received On: 01/29/24 Type of visit: Evaluation Evaluation Type for Bilmin: Clinical Eval Swallowing Function Clinical Swallow Eval Time Entry: 20 BUSINESS TECHNOLOGY TEACHER Frequency: 5 sessions a week Speech Therapy Plan of Care Patient to be seen by Speech Therapy 4-5x/week to address impairments and functional limitations. Treatments to include:education and facilitation of compensatory strategies Preferred Language: Cymraes Goals to be achieved by: discharge Precautions: falls,safety, full code - BUSINESS TECHNOLOGY TEACHER to provide skilled instruction to patient/family/staff regarding recommendations, precautionsand strategies for improved health literacy, safety and discharge planning. - Patient to consume clinician led oral intake trials to determine candidacy for consistent oral intake. - Patient to consume consistent modified diet/liquid textures without evidence of associated adverse effects related dysphagia/aspiration - Completed MODIFIED BARIUM SWALLOW STUDY for comprehensive exam of swallow physiology and determine further intervention needs. - Mu-Ism of oral nutrition/hydration with optimal safety, adequacy and enjoyment. S DESIGNER * Interdisciplinary - Marleen Day RD - 01/29/2024 12:14 PM CST ASSESSMENT: Nutrition Assessment triggered by: RD consult, Nutrition Risk Screen concern. Nutrition risk screen tube feeding or parenteral nutrition, (but pt not on TF at this time). Onesimo Score 12 with probably inadequate nutrition per Risk Assessment. 01/29/2024- pt extubated & OGTF stopped. PROBLEM: Increased nutrient needs, related to & evidenced by intubation. Principal Problem: Cardiopulmonary arrest with successful resuscitation (HCC) Past Medical History: Past Medical History Positives Diagnosis Date A-fib (HCC) dx in 02/2022, s/p ablation in 07/29/22, cardioversion 09/24/22 Aortic valve stenosis BPH (benign prostatic hyperplasia) CAD (coronary artery disease) Chronic diastolic heart failure (HCC) COPD (chronic obstructive pulmonary disease) (HCC) CVA (cerebral vascular accident) (HCC) 3 yrs ago recovered DM type 2 (diabetes mellitus, type 2) (HCC) HLD (hyperlipidemia) SD (myocardial infarction) (HCC) Mitral valve stenosis Pulmonary HTN (HCC) Seizures (HCC) TIA (transient ischemic attack) Diet: no DIET order, at this time Previous OGTF: Vital AF 1.2 @ 45ml/hour with 150ml H2O flush every 4 hours (currently stopped); Chew/swallow: no impairments prior to intubation, standard BUSINESS TECHNOLOGY TEACHER evaluation on extubation. Intake Adequacy: NPO Current Onesimo Score 14 with adequate nutrition per Risk Assessment. Last BM: unknown Skin/Wound: none Labs noted: 01/29/24-albumin=3.0, EGFR>60, SU=478, Ta=074, K=4.1, P=2.1; 01/28/24-Mg=2.2; 01/25/24-albumin=3.9, EGFR=55, QB=757, Qj=341, K=4.7, Mg=2.3, GwX3H=3.6; Meds noted: IV-reglan/pepcid, humalog, lantus, solumedrol, lasix Education: not indicated Height: Ht Readings from Last 1 Encounters: 01/25/24 5' 10 (1.778 m) Weight: Wt Readings from Last 1 Encounters: 01/25/24 159 lb 11.2 oz (72.4 kg) BMI: Body mass index is 22.91 kg/m??. BMI weight range for height: 132-173# EMR wt Hx: 162.6# -01/09/2024 ([facility]) 161# -12/26/2023 ([facility]) 157# -09/09/2023 ([facility]) ESTIMATED NEEDS:(critical care guidelines) Calories: 1800 (25kcal/72.4kg, current wt) Protein: 87-109gm (1.2-1.5gm/kg, current wt) Fluid: 1800ml (1ml/kcal) GOAL: nutrition adequacy INTERVENTION: consult-cardiology; neurology, for EEG; sedation interruption planned; OGTF stopped, but was being tolerated well; Previous RD notes: -OGTF: Vital AF 1.2 @ 45ml/hour with 100ml H2O flush every 6 hours; Propofol @ 5mcg/kg/min, providing 57 calories; OGTF provides: 1080ml vital AF 1.2 (875ml free fluid), 81gm PRO, 119gm CHO/5.5gm fiber, 1777mg K+, 1084mg P; Water flush: 400ml (1480ml total fluid &/or 1275ml total free fluid) -Pt sedated & intubated; consults-cardiology, neurology, housing and residence life director-pt hemodynamically stable; IV-propofol providing 115kcal/day; Hx of DM, but on no home meds for DM; RD consult in regard to Nutrition Risk Screen flag for TF/TPN, nsg to ask Newspaper Delivery Counselor about TF; Reassess: 02/02/[address] S DESIGNER S DESIGNER * Interdisciplinary - Courtney Alexis CRT - 01/29/2024 11:17 AM CST Pt extubated at 11:05 and is on BIPAP as per physician order S DESIGNER * Interdisciplinary - Kenyon Huber RN - 01/29/2024 6:50 AM CST Patient report given to SABRINA Cardenas. Patient resting in bed. Patient remains intubated and sedated and in candice wrist restraints.. Vital Signs per flowsheet. Bed alarm on. No acute distress noted. KENYON HUBER RN S DESIGNER * Plan of Care - Kenyon Huber RN - 01/29/2024 5:30 AM CST Problem: Adult Inpatient Plan of Care Goal: Plan of Care Review Outcome: Ongoing (see interventions/notes) Flowsheets Taken 01/29/2024 0529 by KENYON Outcome Evaluation: Patient remains intubated and sedated and in candice wrist restraints to prevent removal of ETT. Propofol gtt continues, prn fentanyl given once to maintain Rass -2. Patient tolerating tube feeding. Plans for DSI today. Taken 01/28/2024 0421 by KENYON Progress: progress towards functional goals is fair Taken 01/26/2024 1721 by ALESSANDRA Plan of Care Reviewed With: patient Today's Goal: SpO2 >88, remain afebrile Does the patient need assistance with discharge and/or transitioning to the next level of care?: Yes, case management already following Goal: Optimal Comfort and Wellbeing Outcome: Ongoing (see interventions/notes) Goal: Readiness for Transition of Care Outcome: Ongoing (see interventions/notes) Problem: Skin Injury Risk Increased Goal: Skin Health and Integrity Outcome: Ongoing (see interventions/notes) Problem: Fall Injury Risk Goal: Absence of Fall and Fall-Related Injury Outcome: Ongoing (see interventions/notes) Problem: Restraint, Nonviolent Goal: Absence of Harm or Injury Outcome: Ongoing (see interventions/notes) Problem: Stroke, Ischemic (Includes Transient Ischemic Attack) Goal: Optimal Coping Outcome: Ongoing (see interventions/notes) Goal: Effective Bowel Elimination Outcome: Ongoing (see interventions/notes) Goal: Optimal Cerebral Tissue Perfusion Outcome: Ongoing (see interventions/notes) Goal: Optimal Cognitive Function Outcome: Ongoing (see interventions/notes) Goal: Improved Communication Skills Outcome: Ongoing (see interventions/notes) Goal: Optimal Functional Ability Outcome: Ongoing (see interventions/notes) Goal: Optimal Nutrition Intake Outcome: Ongoing (see interventions/notes) Goal: Effective Oxygenation and Ventilation Outcome: Ongoing (see interventions/notes) Goal: Improved Sensorimotor Function Outcome: Ongoing (see interventions/notes) Goal: Safe and Effective Swallow Outcome: Ongoing (see interventions/notes) Goal: Effective Urinary Elimination Outcome: Ongoing (see interventions/notes) Problem: Mechanical Ventilation Invasive Goal: Effective Communication Outcome: Ongoing (see interventions/notes) Goal: Optimal Device Function Outcome: Ongoing (see interventions/notes) Goal: Mechanical Ventilation Liberation Outcome: Ongoing (see interventions/notes) Goal: Optimal Nutrition Delivery Outcome: Ongoing (see interventions/notes) Goal: Absence of Device-Related Skin and Tissue Injury Outcome: Ongoing (see interventions/notes) Goal: Absence of Ventilator-Induced Lung Injury Outcome: Ongoing (see interventions/notes) S DESIGNER * Interdisciplinary - Kenyon Huber RN - 01/28/2024 7:00 PM CST Report received from SABRINA Cardenas. Assumed patient care at this time. Patient remains intubated and sedated and in candice wrists restraints. Vital signs per flowsheet. IV drip rates verified.alarms on. Noacute distress noted. BSSR completed and 2 RN skin assessment completed. Patient turned and repositioned. S DESIGNER * Plan of Care - Clyde Middleton RN - 01/28/2024 5:00 PM CST Problem: Adult Inpatient Plan of Care Goal: Plan of Care Review Outcome: Ongoing (see interventions/notes) Goal: Optimal Comfort and Wellbeing Outcome: Ongoing (see interventions/notes) Goal: Readiness for Transition of Care Outcome: Ongoing (see interventions/notes) Problem: Skin Injury Risk Increased Goal: Skin Health and Integrity Outcome: Ongoing (see interventions/notes) Problem: Fall Injury Risk Goal: Absence of Fall and Fall-Related Injury Outcome: Ongoing (see interventions/notes) Problem: Restraint, Nonviolent Goal: Absence of Harm or Injury Outcome: Ongoing (see interventions/notes) Problem: Stroke, Ischemic (Includes Transient Ischemic Attack) Goal: Optimal Coping Outcome: Ongoing (see interventions/notes) Goal: Effective Bowel Elimination Outcome: Ongoing (see interventions/notes) Goal: Optimal Cerebral Tissue Perfusion Outcome: Ongoing (see interventions/notes) Goal: Optimal Cognitive Function Outcome: Ongoing (see interventions/notes) Goal: Improved Communication Skills Outcome: Ongoing (see interventions/notes) Goal: Optimal Functional Ability Outcome: Ongoing (see interventions/notes) Goal: Optimal Nutrition Intake Outcome: Ongoing (see interventions/notes) Goal: Effective Oxygenation and Ventilation Outcome: Ongoing (see interventions/notes) Goal: Improved Sensorimotor Function Outcome: Ongoing (see interventions/notes) Goal: Safe and Effective Swallow Outcome: Ongoing (see interventions/notes) Goal: Effective Urinary Elimination Outcome: Ongoing (see interventions/notes) Problem: Mechanical Ventilation Invasive Goal: Effective Communication Outcome: Ongoing (see interventions/notes) Goal: Optimal Device Function Outcome: Ongoing (see interventions/notes) Goal: Mechanical Ventilation Liberation Outcome: Ongoing (see interventions/notes) Goal: Optimal Nutrition Delivery Outcome: Ongoing (see interventions/notes) Goal: Absence of Device-Related Skin and Tissue Injury Outcome: Ongoing (see interventions/notes) Goal: Absence of Ventilator-Induced Lung Injury Outcome: Ongoing (see interventions/notes) S DESIGNER * Interdisciplinary - Paty Redding - 01/28/2024 11:34 AM CST Case Management Patient / Patient Building Maintenance Supervisor Contact Note Papito's readmission risk level (if calculated) is: 1-Low Patient Class: Inpatient Consecutive Inpatient Midnights 3 Actual day(s) of hospital stay (compare to working DRG):3 New Consult for Case Management? No Summary: Decision Maker: Patient is currently documented as being incapacitated to make own care decisions. Active medical decision maker(s): Marvin Joseph, Surrogate Telephoto Installer/Surgery Teacher Name: Marvin Joseph Discharge needs undetermined at this time due to current condition. CM will continue to follow to assist as needed and complete discharge planning once stable and appropriate. Plan of Care:(Problem/ situation/ barrier + goals/ milestones + interventions + evaluation of progress = Plan of Care) Papito's primary medical problem this hospitalization is Cardiopulmonary arrest with successful resuscitation (HCC). Hospital Plan: intubated, sedated, Cardio, zosyn, cultures pending Anticipated Discharge Plan: Home Family/ Caregiver's readiness, willingness and ability to support patient with anticipated community discharge plan: Did not speak with family/caregiver during this contact. IM Letter Documentation, if applicable Medicare Notice Given to Responsible Democrat: Yes, in person Date Form Given to Patient/Responsible Democrat: 01/26/24 No new referrals or updates for post-acute hospital services. S DESIGNER * Interdisciplinary - Clyde Middleton RN - 01/28/2024 7:00 AM CST Report received from SABRINA Prescott. Assumed patient care at this time. Patient is sedated at this time. Vital signs per flowsheet. IV drip rates verified. Call light in reach, alarms on. No acute distress noted. BSSR completed and 2 RN skin assessment completed. Patient turned and repositioned. S DESIGNER * Interdisciplinary - Kenyon Huber RN - 01/28/2024 6:53 AM CST Patient report given to SABRINA Cardenas. Patient resting in bed. Patient remains intubated and sedated and in restraints. Vital Signs per flowsheet. Bed alarm on. No acute distress noted. KENYON HUBER RN S DESIGNER * Plan of Care - Kenyon Huber RN - 01/28/2024 4:27 AM CST Problem: Adult Inpatient Plan of Care Goal: Plan of Care Review Outcome: Ongoing (see interventions/notes) Flowsheets Taken 01/28/2024 0421 by KENYON Progress: progress towards functional goals is fair Outcome Evaluation: Patient remains intubated and sedated and in candice wrist restraints to prevent removal of ETT. Propofol gtt continues. IV antibiotics given. PRN versed and fentanyl given to help maintain Rass goal of -2. Thick secretions continue. Bath given. Patient tolerating tube feeding. [id number] to 35%. Pt failed BT on dayshift. Taken 01/26/2024 1721 by ALESSANDRA Plan of Care Reviewed With: patient Today's Goal: SpO2 >88, remain afebrile Does the patient need assistance with discharge and/or transitioning to the next level of care?: Yes, case management already following Goal: Optimal Comfort and Wellbeing Outcome: Ongoing (see interventions/notes) Goal: Readiness for Transition of Care Outcome: Ongoing (see interventions/notes) Problem: Skin Injury Risk Increased Goal: Skin Health and Integrity Outcome: Ongoing (see interventions/notes) Problem: Fall Injury Risk Goal: Absence of Fall and Fall-Related Injury Outcome: Ongoing (see interventions/notes) Problem: Restraint, Nonviolent Goal: Absence of Harm or Injury Outcome: Ongoing (see interventions/notes) Problem: Stroke, Ischemic (Includes Transient Ischemic Attack) Goal: Optimal Coping Outcome: Ongoing (see interventions/notes) Goal: Effective Bowel Elimination Outcome: Ongoing (see interventions/notes) Goal: Optimal Cerebral Tissue Perfusion Outcome: Ongoing (see interventions/notes) Goal: Optimal Cognitive Function Outcome: Ongoing (see interventions/notes) Goal: Improved Communication Skills Outcome: Ongoing (see interventions/notes) Goal: Optimal Functional Ability Outcome: Ongoing (see interventions/notes) Goal: Optimal Nutrition Intake Outcome: Ongoing (see interventions/notes) Goal: Effective Oxygenation and Ventilation Outcome: Ongoing (see interventions/notes) Goal: Improved Sensorimotor Function Outcome: Ongoing (see interventions/notes) Goal: Safe and Effective Swallow Outcome: Ongoing (see interventions/notes) Goal: Effective Urinary Elimination Outcome: Ongoing (see interventions/notes) Problem: Mechanical Ventilation Invasive Goal: Effective Communication Outcome: Ongoing (see interventions/notes) Goal: Optimal Device Function Outcome: Ongoing (see interventions/notes) Goal: Mechanical Ventilation Liberation Outcome: Ongoing (see interventions/notes) Goal: Optimal Nutrition Delivery Outcome: Ongoing (see interventions/notes) Goal: Absence of Device-Related Skin and Tissue Injury Outcome: Ongoing (see interventions/notes) Goal: Absence of Ventilator-Induced Lung Injury Outcome: Ongoing (see interventions/notes) S DESIGNER * Plan of Care - Alessandra Diop RN - 01/27/2024 8:06 PM CST Problem: Adult Inpatient Plan of Care Goal: Plan of Care Review Outcome: Ongoing (see interventions/notes) Goal: Optimal Comfort and Wellbeing Outcome: Ongoing (see interventions/notes) Goal: Readiness for Transition of Care Outcome: Ongoing (see interventions/notes) S DESIGNER * Interdisciplinary - Marleen Day RD - 01/27/2024 1:08 PM CST OGTF: Vital AF 1.2 @ 45ml/hour with 100ml H2O flush every 6 hours; Propofol @ 5mcg/kg/min, providing 57 calories; OGTF provides: 1080ml vital AF 1.2 (875ml free fluid), 81gm PRO, 119gm CHO/5.5gm fiber, 1777mg K+, 1084mg P; Water flush: 400ml (1480ml total fluid &/or 1275ml total free fluid) S DESIGNER * Theodora Rudolph RRT - 01/27/2024 9:11 AM CST Placed pt on SBT at 0905, tolerating well at this time. S DESIGNER * Theodora Rudolph RRT - 01/27/2024 7:24 AM CST Decreased FiO2 to 35%. S DESIGNER * Kenyon Anguiano RN - 01/27/2024 7:00 AM CST Patient report given to SABRINA Vazquez. Patient resting in bed. Patient intubated and sedated, wrist restraints continues. Vital Signs per flowsheet.Bed alarm on. No acute distress noted. KENYON HUBER RN S DESIGNER * Plan of Care - Kenyon Huber RN - 01/27/2024 5:18 AM CST Day 2 - Current (ADULT ISCHEMIC STROKE TIA PATHWAY) Day 2 - Neuro Deficits Stable And/Or Improved Outcome: Not Met Variance Other: Explain in Comment Day 2 - Statin Therapy Initiated for Lipids greater than or equal to 70 Outcome: Not Met Variance Other: Explain in Comment Day 2 - Rehab Needs Addressed Outcome: Not Met Variance Other: Explain in Comment Day 2 - Current (ADULT ISCHEMIC STROKE TIA PATHWAY) Day 2 - Antiplatelet Therapy Initiated Outcome: Met Problem: Adult Inpatient Plan of Care Goal: Plan of Care Review Outcome: Ongoing (see interventions/notes) Flowsheets Taken 01/27/2024 0515 by KENYON Outcome Evaluation: Patient remains intubated and sedated and in candice wrist restraints. Propofol gttcontinues to maintain Rass goal 0 to -2. Temp 37.5. Assessment as noted. Bath given. Vent settings unchanged, pt tolerating vent. IV antibiotics continues. Taken 01/26/2024 1721 by ALESSANDRA Plan of Care Reviewed With: patient Progress: progress toward functional goals as expected Today's Goal: SpO2 >88, remain afebrile Does the patient need assistance with discharge and/or transitioning to the next level of care?: Yes, case management already following Goal: Optimal Comfort and Wellbeing Outcome: Ongoing (see interventions/notes) Goal: Readiness for Transition of Care Outcome: Ongoing (see interventions/notes) Problem: Skin Injury Risk Increased Goal: Skin Health and Integrity Outcome: Ongoing (see interventions/notes) Problem: Fall Injury Risk Goal: Absence of Fall and Fall-Related Injury Outcome: Ongoing (see interventions/notes) Problem: Restraint, Nonviolent Goal: Absence of Harm or Injury Outcome: Ongoing (see interventions/notes) Problem: Stroke, Ischemic (Includes Transient Ischemic Attack) Goal: Optimal Coping Outcome: Ongoing (see interventions/notes) Goal: Effective Bowel Elimination Outcome: Ongoing (see interventions/notes) Goal: Optimal Cerebral Tissue Perfusion Outcome: Ongoing (see interventions/notes) Goal: Optimal Cognitive Function Outcome: Ongoing (see interventions/notes) Goal: Improved Communication Skills Outcome: Ongoing (see interventions/notes) Goal: Optimal Functional Ability Outcome: Ongoing (see interventions/notes) Goal: Optimal Nutrition Intake Outcome: Ongoing (see interventions/notes) Goal: Effective Oxygenation and Ventilation Outcome: Ongoing (see interventions/notes) Goal: Improved Sensorimotor Function Outcome: Ongoing (see interventions/notes) Goal: Safe and Effective Swallow Outcome: Ongoing (see interventions/notes) Goal: Effective Urinary Elimination Outcome: Ongoing (see interventions/notes) Problem: Mechanical Ventilation Invasive Goal: Effective Communication Outcome: Ongoing (see interventions/notes) Goal: Optimal Device Function Outcome: Ongoing (see interventions/notes) Goal: Mechanical Ventilation Liberation Outcome: Ongoing (see interventions/notes) Goal: Optimal Nutrition Delivery Outcome: Ongoing (see interventions/notes) Goal: Absence of Device-Related Skin and Tissue Injury Outcome: Ongoing (see interventions/notes) Goal: Absence of Ventilator-Induced Lung Injury Outcome: Ongoing (see interventions/notes) S DESIGNER * Interdisciplinary - Alessandra Diop RN - 01/26/2024 7:33 PM FORMS DESIGNER Bedside shift report given to SABRINA Márquez. Skin assessed and patient repositioned with oncoming RN. Patient remains intubated and sedated. Vital Signs per flowsheet. Call light within reach, alarms on. Patient and family updated to plan of care. No acute distress noted. IV drip rates verified with oncalfreda RN. ALESSANDRA DIOP RN S DESIGNER * Zheng - Kenyon Huber RN - 01/26/2024 7:00 PM CST Report received from SABRINA Vazquez. Assumed patient care at this time. Patient intubated and sedated. Vital signs per flowsheet. IV drip rates verified. alarms on. Family at bedside and updated on plan ofcare. No acute distress noted. BSSR completed and 2 RN skin assessment completed. Patient turned and repositioned. S DESIGNER * Plan of Care - Alessandra Diop RN - 01/26/2024 5:25 PM CST Problem: Adult Inpatient Plan of Care Goal: Plan of Care Review Outcome: Ongoing (see interventions/notes) Flowsheets (Taken 01/26/2024 1721) Plan of Care Reviewed With: patient Progress: progress toward functional goals as expected Today's Goal: SpO2 >88, remain afebrile Outcome Evaluation: Patient remains intubated and seaed, patient completed a DSI and SBT today. patient remains restrained. patient has been febrile throughout this shift. Does the patient need assistance with discharge and/or transitioning to the next level of care?: Yes, case management already following Goal: Optimal Comfort and Wellbeing Outcome: Ongoing (see interventions/notes) Intervention: Monitor Pain and Promote Comfort Flowsheets (Taken 01/26/2024 1721) Pain Management Interventions: care clustered pain management plan reviewed with patient/caregiver pillow support provided position adjusted quiet environment facilitated relaxation techniques promoted Intervention: Provide Person-Centered Care Flowsheets (Taken 01/26/2024 1500) Trust Relationship/Rapport: care explained respect patient/family decisions provided safe/supportive environment facilitated nonverbal communication acknowledged therapeutic presence provided Goal: Readiness for Transition of Care Outcome: Ongoing (see interventions/notes) Problem: Skin Injury Risk Increased Goal: Skin Health and Integrity Outcome: Ongoing (see interventions/notes) Intervention: Optimize Skin Protection Flowsheets Taken 01/26/2024 1700 Head of Bed (HOB) Positioning: HOB at 30-45 degrees Taken 01/26/2024 1500 Activity Management: activity adjusted per tolerance Pressure Reduction Techniques: weight shift assistance provided Pressure Reduction Devices: pressure-redistributing mattress utilized heel offloading device utilized Skin Protection: transparent dressing maintained incontinence pads utilized Problem: Fall Injury Risk Goal: Absence of Fall and Fall-Related Injury Outcome: Ongoing (see interventions/notes) Problem: Restraint, Nonviolent Goal: Absence of Harm or Injury Outcome: Ongoing (see interventions/notes) S DESIGNER * Interdisciplinary - Anastasiia Browne RN - 01/26/2024 10:45 AM CST First & last name, Marvin Joseph (contact phone: [phone]) verbalized understanding & AGREED to act as HC-surrogate. S DESIGNER * Plan of Care - Anastasiia Browne RN - 01/26/2024 10:30 AM CST Case Management Comprehensive Assessment Papito's readmission risk level (if calculated) is: 1-Low Patient Class: Inpatient Consecutive Inpatient Midnights 1 Actual day(s) of hospital stay (compare to working DRG): 1 Reason for Demand InspectorDairy Helper: No PCP and Consult for stroke Papito is in the hospital due to: Cardiac arrest w/ successful resuscitation Prior to Admission (Support, Living Environment,ADLs IADLs, Transportation, Employment, Access to Care) Patient is intubated and sedated, assessment completed via phone with patient's son Marvin. Patient lives with his son and DIL in a single story home, that has 1 steps to enter. Patient reports he is independent with ADL's and iADL's, patient's son assists with medication management and management of patient's indwelling blankenship. Patient does drive, but patient's son provides transportation as needed. Patient reports having a cane, grab bars, O2 and CPAP through the [facility] devices in the home. Patient's PCP is Dr. Bae at [facility] [place], whom he last seen within the last few months. Patient's pharmacy is [facility]. Patient reports no issues in obtaining his medications at this time. No HCPOA on file. Patient's demographics verified via phone. Patient is current with the following medical equipment company for their respiratory equipment: Knowable oxygen, CPAP Pap[facility] is not a 30 day re-hospitalization. Plan of Care (Problem/ situation/ barrier + goals/ milestones + interventions + evaluation of progress = Plan of Care) Hospital Plan:Newspaper Delivery Counselor, intubated/sedated, BC/UC-pending, IV zosyn and vanc, ECHO, cardio following. Anticipated Discharge Plan: Home 01/26/24 Patient/ patient insurance representative's preferences regarding the discharge plan: Home Family/ Caregiver's readiness, willingness and ability to support patient with anticipated community discharge plan: Spoke with family/caregiver(s) (Marvin), who is/are agreeable to anticipated discharge plan. No concerns expressed. SUMMARY (summary of interaction with patient/decision maker, family and interdisciplinary team) Decision Maker: Patient is currently documented as being incapacitated to make own care decisions. Active medical decision maker(s): Marvin Telephoto Installer/Surgery Teacher Name: Marvin Joseph By phone, spoke with child Marvin and introduced self and role and discussed plan of care. CM spoke with patient's son via phone. Marvin states that patient just recently moved here from [place] after the loss of his . Marvin states that patient is independent and active and he feels that there should be no need for services at discharge, but at this point is is hard to say, so discharge planning will wait for patient's progress. No referrals sent at this time. No further needs at this time. IM Letter Documentation, if applicable N/A - Medicare Inpatient but IM letter provided in the past 2 days by Patient Accounts or Nursing No new referrals or updates for post-acute hospital services. S DESIGNER * Zheng - Marleen Day RD - 01/26/2024 10:10 AM CST ASSESSMENT: Nutrition Assessment triggered by: RD consult, Nutrition Risk Screen concern. Nutrition risk screen tube feeding or parenteral nutrition, (but pt not on TF at this time). Onesimo Score 12 with probably inadequate nutrition per Risk Assessment. PROBLEM: Increased nutrient needs, related to & evidenced by intubation. Principal Problem: Cardiopulmonary arrest with successful resuscitation (HCC) Past Medical History: Past Medical History Positives Diagnosis Date A-fib (HCC) dx in 02/2022, s/p ablation in 07/29/22, cardioversion 09/24/22 Aortic valve stenosis BPH (benign prostatic hyperplasia) CAD (coronary artery disease) Chronic diastolic heart failure (HCC) COPD (chronic obstructive pulmonary disease) (HCC) CVA (cerebral vascular accident) (HCC) 3 yrs ago recovered DM type 2 (diabetes mellitus, type 2) (HCC) HLD (hyperlipidemia) SD (myocardial infarction) (HCC) Mitral valve stenosis Pulmonary HTN (HCC) Seizures (HCC) TIA (transient ischemic attack) Diet: DIET NPO Effective Now Chew/swallow: no impairments prior to intubation, standard BUSINESS TECHNOLOGY TEACHER evaluation on extubation. Intake Adequacy: NPO IV's: lactated ringers Skin/Wound: none Labs noted: 01/26/24-albumin=2.7, EGFR>60, BS=85, Zf=474, K=3.5, Mg=1.6; 01/25/24-albumin=3.9, EGFR=55, DB=203, Rr=854, K=4.7, Mg=2.3, EcD1V=1.6; Meds noted: IV-zosyn/propofol (10mcg/kg/bus=429flvk/day), humalog Education: not indicated at this time Height: Ht Readings from Last 1 Encounters: 01/25/24 5' 10 (1.778 m) Weight: Wt Readings from Last 1 Encounters: 01/25/24 159 lb 11.2 oz (72.4 kg) BMI: Body mass index is 22.91 kg/m??. BMI weight range for height: 132-173# EMR wt Hx: 162.6# -01/09/2024 ([facility] 161# -12/26/2023 ([facility]) 157# -09/09/2023 ([facility]) ESTIMATED NEEDS:(critical care guidelines) Calories: 1800 (25kcal/72.4kg, current wt) Protein: 87-109gm (1.2-1.5gm/kg, current wt) Fluid: 1800ml (1ml/kcal) GOAL: nutrition adequacy INTERVENTION: Pt sedated & intubated; consults-cardiology, neurology, housing and residence life director-pt hemodynamically stable; IV-propofol providing 115kcal/day; Hx of DM, but on no home meds for DM; RD consult in regard to Nutrition Risk Screen flag for TF/TPN, nsg to ask Newspaper Delivery Counselor about TF; Reassess: 01/29/[address] S DESIGNER * Plan of Care - Elsa Weaver RN - 01/26/2024 5:05 AM CST Problem: Adult Inpatient Plan of Care Goal: Plan of Care Review Outcome: Ongoing (see interventions/notes) Flowsheets (Taken 01/26/2024 0458) Plan of Care Reviewed With: patient family Progress: progress toward functional goals as expected Today's Goal: spo2 > 88 afebrile Outcome Evaluation: Patient remains intubated and sedated. Patient became tachypneic and asynchronous with ventilator despite interventions. Sedation changed to propofol with patient's respirations decreasing and becoming compliant with ventilator. Spo2 has remained above goal throughout the night. Patient was febrile with a max temp of 38.5. Bedding removed, fan in place, ice packs, and Tylenol utilized to manage temp. Current esophageal temp 37.5. No acute distress noted at this time. Does the patient need assistance with discharge and/or transitioning to the next level of care?: Yes, will consult case management Goal: Optimal Comfort and Wellbeing Outcome: Ongoing (see interventions/notes) Intervention: Monitor Pain and Promote Comfort Flowsheets (Taken 01/25/2024 2118) Pain Management Interventions: relaxation techniques promoted quiet environment facilitated pillow support provided position adjusted Intervention: Provide Person-Centered Care Flowsheets (Taken 01/25/2024 1900) Trust Relationship/Rapport: care explained questions encouraged reassurance provided respect patient/family decisions provided safe/supportive environment facilitated nonverbal communication acknowledged therapeutic presence provided Goal: Readiness for Transition of Care Outcome: Ongoing (see interventions/notes) Problem: Skin Injury Risk Increased Goal: Skin Health and Integrity Outcome: Ongoing (see interventions/notes) Intervention: Optimize Skin Protection Flowsheets Taken 01/26/2024 0300 Head of Bed (HOB) Positioning: HOB at 30-45 degrees Taken 01/25/2024 1900 Activity Management: activity adjusted per tolerance Pressure Reduction Techniques: frequent weight shift encouraged heels elevated off bed Pressure Reduction Devices: pressure-redistributing mattress utilized heel offloading device utilized Skin Protection: incontinence pads utilized skin sealant/moisture barrier applied transparent dressing maintained silicone foam dressing in place Problem: Fall Injury Risk Goal: Absence of Fall and Fall-Related Injury Outcome: Ongoing (see interventions/notes) Intervention: Identify and Manage Contributors Flowsheets (Taken 01/25/2024 1900) Medication Review/Management: medications reviewed high-risk medications identified Intervention: Promote Injury-Free Environment Flowsheets (Taken 01/25/2024 1900) Safety Promotion/Fall Prevention: bed alarm family at bedside lighting adjusted for task/safety low bed room near unit station Problem: Restraint, Nonviolent Goal: Absence of Harm or Injury Outcome: Ongoing (see interventions/notes) Intervention: Implement Least Restrictive Safety Strategies Flowsheets (Taken 01/26/2024 0458) Less Restrictive Alternative: bed alarm in use calming techniques promoted De-Escalation Techniques: increased round frequency reoriented stimulation decreased Intervention: Protect Dignity, Rights and Personal Wellbeing Flowsheets (Taken 01/25/2024 1900) Trust Relationship/Rapport: care explained questions encouraged reassurance provided respect patient/family decisions provided safe/supportive environment facilitated nonverbal communication acknowledged therapeutic presence provided Intervention: Protect Skin and Joint Integrity Flowsheets Taken 01/26/2024 0300 Body Position: turned heels elevated upper extremity elevated Taken 01/25/2024 1900 Skin Protection: incontinence pads utilized skin sealant/moisture barrier applied transparent dressing maintained silicone foam dressing in place Problem: Stroke, Ischemic (Includes Transient Ischemic Attack) Goal: Optimal Coping Outcome: Ongoing (see interventions/notes) Intervention: Support Psychosocial Response to Stroke Flowsheets (Taken 01/25/2024 190) Supportive Measures: relaxation techniques promoted Family/Support System Care: self-care encouraged support provided Goal: Effective Bowel Elimination Outcome: Ongoing (see interventions/notes) Goal: Optimal Cerebral Tissue Perfusion Outcome: Ongoing (see interventions/notes) Intervention: Protect and Optimize Cerebral Perfusion Flowsheets Taken 01/26/2024 0458 Sensory Stimulation Regulation: care clustered lighting decreased quiet environment promoted Taken 01/25/2024 1900 Fluid/Electrolyte Management: intravenous fluid replacement initiated Cerebral Perfusion Promotion: blood pressure monitored normothermia promoted Goal: Optimal Cognitive Function Outcome: Ongoing (see interventions/notes) Intervention: Optimize Cognitive Function Flowsheets (Taken 01/26/2024 0458) Sensory Stimulation Regulation: care clustered lighting decreased quiet environment promoted Goal: Improved Communication Skills Outcome: Ongoing (see interventions/notes) Intervention: Optimize Communication Skills Flowsheets (Taken 01/26/2024 0458) Communication Enhancement Strategies: one-step directions provided nonverbal strategies used Goal: Optimal Functional Ability Outcome: Ongoing (see interventions/notes) Intervention: Optimize Functional Ability Flowsheets (Taken 01/25/2024 1900) Activity Management: activity adjusted per tolerance Goal: Optimal Nutrition Intake Outcome: Ongoing (see interventions/notes) Goal: Effective Oxygenation and Ventilation Outcome: Ongoing (see interventions/notes) Intervention: Optimize Oxygenation and Ventilation Flowsheets Taken 01/26/2024457 Airway/Ventilation Management: airway patency maintained HOB elevated 30-45 degrees Taken 01/26/2024 0300 Head of Bed (HOB) Positioning: HOB at 30-45 degrees Goal: Improved Sensorimotor Function Outcome: Ongoing (see interventions/notes) Intervention: Optimize Range of Motion, Motor Control and Function Flowsheets (Taken 01/26/2024 0300) Positioning/Transfer Devices: pillows in use Intervention: Optimize Sensory and Perceptual Ability Flowsheets (Taken 01/25/2024 1900) Pressure Reduction Techniques: frequent weight shift encouraged heels elevated off bed Pressure Reduction Devices: pressure-redistributing mattress utilized heel offloading device utilized Goal: Safe and Effective Swallow Outcome: Ongoing (see interventions/notes) Intervention: Promote and Optimize Fluid and Food Intake Flowsheets (Taken 01/25/2024 1900) Aspiration Precautions: NPO pending swallow screening/evaluation respiratory status monitored oral hygiene care promoted Goal: Effective Urinary Elimination Outcome: Ongoing (see interventions/notes) Intervention: Promote Effective Bladder Elimination Flowsheets (Taken 01/26/2024457) Urinary Elimination Promotion: absorbent pad/diaper use encouraged catheter patency maintained Problem: Mechanical Ventilation Invasive Goal: Effective Communication Outcome: Ongoing (see interventions/notes) Intervention: Ensure Effective Communication Flowsheets Taken 01/26/2024457 Communication Enhancement Strategies: one-step directions provided nonverbal strategies used Taken 01/25/2024 190 Trust Relationship/Rapport: care explained questions encouraged reassurance provided respect patient/family decisions provided safe/supportive environment facilitated nonverbal communication acknowledged therapeutic presence provided Family/Support System Care: self-care encouraged support provided Goal: Optimal Device Function Outcome: Ongoing (see interventions/notes) Intervention: Optimize Device Care and Function Flowsheets (Taken 01/26/2024457) Airway Safety Measures: manual resuscitator/mask at bedside suction at bedside oxygen flowmeter at bedside Airway/Ventilation Management: airway patency maintained HOB elevated 30-45 degrees Goal: Mechanical Ventilation Liberation Outcome: Ongoing (see interventions/notes) Intervention: Promote Extubation and Mechanical Ventilation Liberation Flowsheets Taken 01/26/2024457 Environmental Support: calm environment promoted Sleep/Rest Enhancement: awakenings minimized family presence promoted noise level reduced regular sleep/rest pattern promoted relaxation techniques promoted room darkened therapeutic touch utilized Taken 01/25/2024 1900 Medication Review/Management: medications reviewed high-risk medications identified Goal: Optimal Nutrition Delivery Outcome: Ongoing (see interventions/notes) Goal: Absence of Device-Related Skin and Tissue Injury Outcome: Ongoing (see interventions/notes) Intervention: Maintain Skin and Tissue Health Flowsheets (Taken 01/26/2024 0458) Device Skin Pressure Protection: absorbent pad utilized/changed adhesive use limited tubing/devices free from skin contact [id number] areas padded Goal: Absence of Ventilator-Induced Lung Injury Outcome: Ongoing (see interventions/notes) Intervention: Facilitate Lung-Protection Measures Flowsheets (Taken 01/26/2024 0458) Lung Protection Measures: ventilator synchrony promoted Intervention: Prevent Ventilator-Associated Pneumonia Flowsheets (Taken 01/26/2024 0300) Head of Bed (HOB) Positioning: HOB at 30-45 degrees VAP Prevention Bundle: Oral care performed HOB elevated 30-45 Degrees S DESIGNER * Plan of Care - Gail Lopez RN - 01/25/2024 6:11 PM CST Problem: Adult Inpatient Plan of Care Goal: Plan of Care Review Outcome: Ongoing (see interventions/notes) Flowsheets (Taken 01/25/2024 1810) Plan of Care Reviewed With: patient family Progress: progress towards functional goals is fair Today's Goal: no pulling at tubes/lines Outcome Evaluation: restraints in place to prevent pulling. Does the patient need assistance with discharge and/or transitioning to the next level of care?: Yes, will consult case management Goal: Optimal Comfort and Wellbeing Outcome: Ongoing (see interventions/notes) Goal: Readiness for Transition of Care Outcome: Ongoing (see interventions/notes) Problem: Skin Injury Risk Increased Goal: Skin Health and Integrity Outcome: Ongoing (see interventions/notes) Problem: Fall Injury Risk Goal: Absence of Fall and Fall-Related Injury Outcome: Ongoing (see interventions/notes) Problem: Restraint, Nonviolent Goal: Absence of Harm or Injury Outcome: Ongoing (see interventions/notes) S DESIGNER * Interdisciplinary - Alessandra Diop RN - 01/25/2024 5:36 PM FORMS DESIGNER Initial Skin Assessment Patient assessed with 2nd RN Jose L Wounds noted: Skin tears PRESSURE INJURY AND MOISTURE MANAGEMENT RECOMMENDATIONS: Moisture Management: Apply Z-Guard to gluteals every 2 hours as needed for incontinence Pressure Injury Prevention Interventions: Will turn every 2 hours, Will elevate heels with heel medix boots, Will apply Sacral Optifoam for protection and change twice weekly and as needed Specialty Surface Selection: Moisture Score: 4-->rarely moist Mobility Score: 1-->completely immobile Total Onesimo Score: 12 Patient is in an ICU bed Wound care: N/A ALESSANDRA DIOP RN S DESIGNER * Interdisciplinary - Antony Roper RN - 01/25/2024 4:57 PM CST New Admission noted. Onsite team aware and Will continue to monitor ANTONY ROPER RN, 01/25/2024, 4:57 PM FORMS DESIGNER [facility] ([facility]) Intensive Care RN S DESIGNER * Interdisciplinary - Keith Sister Mayra - 01/25/2024 4:14 PM CST Pastoral Care spoke with family the patient is on the vent the patient's son Marvin said pt could bebaptized if he was dying . S DESIGNER * Interdisciplinary - Vickie Alonzo RN - 01/25/2024 12:49 PM FORMS DESIGNER On[facility] Sepsis Note Sepsis BPA alert received. By: Vickie Alonzo RN; 01/25/2024, 12:49 PM FORMS DESIGNER OnCall Sepsis Note Sepsis BPA alert received. Chart Reviewed, no action needed due to: All bundle components met at this time By: Vickie Alonzo RN; 01/25/2024, 2:36 PM FORMS DESIGNER S DESIGNER S DESIGNER documented in this encounter Plan of Treatment Not on file documented as of this encounter Procedures Procedure Name Priority Date/Time Associated Diagnosis Comments CBC WITH AUTO DIFFERENTIAL Routine 02/09/2024 4:39 AM FORMS DESIGNER COMPLETE BLOOD COUNT (CBC) WITH DIFF Routine 02/09/2024 4:39 AM FORMS DESIGNER BASIC METABOLIC PANEL W/ CALCIUM TOTAL Routine 02/09/2024 4:39 AM FORMS DESIGNER RHYTHM STRIP 02/09/2024 12:00 AM FORMS DESIGNER RHYTHM STRIP 02/09/2024 12:00 AM FORMS DESIGNER RHYTHM STRIP 02/09/2024 12:00 AM FORMS DESIGNER RHYTHM STRIP 02/09/2024 12:00 AM FORMS DESIGNER TROPONIN I, HIGH SENSITIVITY (HSTRP) STAT 02/08/2024 3:45 AM FORMS DESIGNER CBC WITH AUTO DIFFERENTIAL STAT 02/08/2024 3:45 AM FORMS DESIGNER CMP (COMPREHENSIVE METABOLIC PANEL) STAT 02/08/2024 3:45 AM FORMS DESIGNER COMPLETE BLOOD COUNT (CBC) WITH DIFF STAT 02/08/2024 3:45 AM FORMS DESIGNER B-TYPE NATRIURETIC PEPTIDE (BNP) STAT 02/08/2024 3:45 AM FORMS DESIGNER XR CHEST SINGLE VIEW PORTABLE Stat with Interpretation 02/08/2024 3:44 AM FORMS DESIGNER BLOOD GASES, ARTERIAL W/ O2 SATURATION Routine 02/08/2024 2:58 AM FORMS DESIGNER RHYTHM STRIP 02/08/2024 12:00 AM FORMS DESIGNER RHYTHM STRIP 02/08/2024 12:00 AM FORMS DESIGNER RHYTHM STRIP 02/08/2024 12:00 AM FORMS DESIGNER RHYTHM STRIP 02/08/2024 12:00 AM FORMS DESIGNER RHYTHM STRIP 02/08/2024 12:00 AM FORMS DESIGNER XR SMALL BOWEL FOLLOW THROUGH Routine 02/07/2024 2:33 PM FORMS DESIGNER XR ABDOMEN KUB FLAT PLATE STAT 02/07/2024 11:42 AM FORMS DESIGNER CBC WITH AUTO DIFFERENTIAL STAT 02/07/2024 8:02 AM FORMS DESIGNER LACTIC ACID (LACTATE) STAT 02/07/2024 8:02 AM FORMS DESIGNER CMP (COMPREHENSIVE METABOLIC PANEL) STAT 02/07/2024 8:02 AM FORMS DESIGNER COMPLETE BLOOD COUNT (CBC) WITH DIFF STAT 02/07/2024 8:02 AM FORMS DESIGNER XR ABDOMEN KUB FLAT PLATE Routine 02/07/2024 3:09 AM FORMS DESIGNER RHYTHM STRIP 02/07/2024 12:00 AM FORMS DESIGNER RHYTHM STRIP 02/07/2024 12:00 AM FORMS DESIGNER RHYTHM STRIP 02/07/2024 12:00 AM FORMS DESIGNER RHYTHM STRIP 02/07/2024 12:00 AM FORMS DESIGNER RHYTHM STRIP 02/07/2024 12:[address] ABDOMEN PELVIS W/ CONTRAST Stat with Interpretation 02/06/2024 7:34 PM FORMS DESIGNER EXTRA TUBES Routine 02/06/2024 1:40 PM FORMS DESIGNER MELVIN VÁZQUEZ HEPARIN/SST TOP TUBE Routine 02/06/2024 1:40 PM FORMS DESIGNER GOLD TOP TUBE Routine 02/06/2024 1:40 PM FORMS DESIGNER BLUE TOP TUBE Routine 02/06/2024 1:40 PM FORMS DESIGNER CBC WITH AUTO DIFFERENTIAL STAT 02/06/2024 1:40 PM FORMS DESIGNER COMPLETE BLOOD COUNT (CBC) WITH DIFF STAT 02/06/2024 1:40 PM FORMS DESIGNER B-TYPE NATRIURETIC PEPTIDE (BNP) STAT 02/06/2024 1:40 PM FORMS DESIGNER XR ABDOMEN KUB FLAT PLATE Stat with Interpretation 02/06/2024 12:54 PM FORMS DESIGNER RHYTHM STRIP 02/06/2024 12:00 AM FORMS DESIGNER RHYTHM STRIP 02/06/2024 12:00 AM FORMS DESIGNER RHYTHM STRIP 02/06/2024 12:00 AM FORMS DESIGNER RHYTHM STRIP 02/06/2024 12:00 AM FORMS DESIGNER XR SWALLOWING FUNCTION STUDY WITH VIDEO/CINE Routine 02/05/2024 10:40 AM FORMS DESIGNER POCT GLUCOSE Routine 02/05/2024 8:55 AM FORMS DESIGNER RHYTHM STRIP 02/05/2024 12:00 AM FORMS DESIGNER RHYTHM STRIP 02/05/2024 12:00 AM FORMS DESIGNER RHYTHM STRIP 02/05/2024 12:00 AM FORMS DESIGNER RHYTHM STRIP 02/05/2024 12:00 AM FORMS DESIGNER POCT GLUCOSE Routine 02/04/2024 5:11 PM FORMS DESIGNER POCT GLUCOSE Routine 02/04/2024 10:43 AM FORMS DESIGNER POCT GLUCOSE Routine 02/04/2024 5:07 AM FORMS DESIGNER RHYTHM STRIP 02/04/2024 12:00 AM FORMS DESIGNER RHYTHM STRIP 02/04/2024 12:00 AM FORMS DESIGNER RHYTHM STRIP 02/04/2024 12:00 AM FORMS DESIGNER RHYTHM STRIP 02/04/2024 12:00 AM FORMS DESIGNER RHYTHM STRIP 02/04/2024 12:00 AM FORMS DESIGNER RHYTHM STRIP 02/04/2024 12:00 AM FORMS DESIGNER POCT GLUCOSE Routine 02/03/2024 10:21 PM FORMS DESIGNER POCT GLUCOSE Routine 02/03/2024 4:27 PM FORMS DESIGNER POCT GLUCOSE Routine 02/03/2024 11:49 AM FORMS DESIGNER CBC WITH AUTO DIFFERENTIAL Routine 02/03/2024 10:53 AM FORMS DESIGNER COMPLETE BLOOD COUNT (CBC) WITH DIFF Routine 02/03/2024 10:53 AM FORMS DESIGNER BASIC METABOLIC PANEL W/ CALCIUM TOTAL Routine 02/03/2024 10:43 AM FORMS DESIGNER XR CHEST SINGLE VIEW PORTABLE Routine 02/03/2024 9:53 AM FORMS DESIGNER POCT GLUCOSE Routine 02/03/2024 7:51 AM FORMS DESIGNER POCT GLUCOSE Routine 02/03/2024 5:07 AM FORMS DESIGNER RHYTHM STRIP 02/03/2024 12:00 AM FORMS DESIGNER RHYTHM STRIP 02/03/2024 12:00 AM FORMS DESIGNER RHYTHM STRIP 02/03/2024 12:00 AM FORMS DESIGNER RHYTHM STRIP 02/03/2024 12:00 AM FORMS DESIGNER POCT GLUCOSE Routine 02/02/2024 10:58 PM FORMS DESIGNER POCT GLUCOSE Routine 02/02/2024 5:51 PM FORMS DESIGNER POCT GLUCOSE Routine 02/02/2024 12:02 PM FORMS DESIGNER INCENTIVE SPIROMETRY RT-INITIAL Routine 02/02/2024 11:36 AM FORMS DESIGNER POCT GLUCOSE Routine 02/02/2024 5:21 AM FORMS DESIGNER RHYTHM STRIP 02/02/2024 12:00 AM FORMS DESIGNER RHYTHM STRIP 02/02/2024 12:00 AM FORMS DESIGNER RHYTHM STRIP 02/02/2024 12:00 AM FORMS DESIGNER POCT GLUCOSE Routine 02/01/2024 11:01 PM FORMS DESIGNER POCT GLUCOSE Routine 02/01/2024 5:52 PM FORMS DESIGNER POCT GLUCOSE Routine 02/01/2024 12:55 PM FORMS DESIGNER CBC WITH AUTO DIFFERENTIAL Routine 02/01/2024 4:38 AM FORMS DESIGNER COMPLETE BLOOD COUNT (CBC) WITH DIFF Routine 02/01/2024 4:38 AM FORMS DESIGNER BASIC METABOLIC PANEL W/ CALCIUM TOTAL Routine 02/01/2024 4:38 AM FORMS DESIGNER RHYTHM STRIP 02/01/2024 12:00 AM FORMS DESIGNER RHYTHM STRIP 02/01/2024 12:00 AM FORMS DESIGNER RHYTHM STRIP 02/01/2024 12:00 AM FORMS DESIGNER POCT GLUCOSE Routine 01/31/2024 11:44 PM FORMS DESIGNER POCT GLUCOSE Routine 01/31/2024 5:28 PM FORMS DESIGNER POCT GLUCOSE Routine 01/31/2024 12:25 PM FORMS DESIGNER POCT GLUCOSE Routine 01/31/2024 5:59 AM FORMS DESIGNER RHYTHM STRIP 01/31/2024 12:00 AM FORMS DESIGNER POCT GLUCOSE Routine 01/30/2024 11:29 PM FORMS DESIGNER POCT GLUCOSE Routine 01/30/2024 4:54 PM FORMS DESIGNER POCT GLUCOSE Routine 01/30/2024 12:19 PM FORMS DESIGNER OT EVALUATE AND TREAT Routine 01/30/2024 9:23 AM FORMS DESIGNER PT EVALUATE AND TREAT Routine 01/30/2024 9:23 AM FORMS DESIGNER PHOSPHORUS (PO4) Routine 01/30/2024 9:17 AM FORMS DESIGNER MAGNESIUM (MG) Routine 01/30/2024 9:17 AM FORMS DESIGNER BASIC METABOLIC PANEL W/ CALCIUM TOTAL Routine 01/30/2024 9:17 AM FORMS DESIGNER XR CHEST SINGLE VIEW PORTABLE Routine 01/30/2024 6:55 AM FORMS DESIGNER CBC WITH AUTO DIFFERENTIAL Routine 01/30/2024 4:22 AM FORMS DESIGNER RENAL FUNCTION PANEL (RFP) Routine 01/30/2024 4:22 AM FORMS DESIGNER COMPLETE BLOOD COUNT (CBC) WITH DIFF Routine 01/30/2024 4:22 AM FORMS DESIGNER RHYTHM STRIP 01/30/2024 12:00 AM FORMS DESIGNER RHYTHM STRIP 01/30/2024 12:00 AM FORMS DESIGNER POCT GLUCOSE Routine 01/29/2024 11:54 PM FORMS DESIGNER POCT GLUCOSE Routine 01/29/2024 5:40 PM FORMS DESIGNER POCT GLUCOSE Routine 01/29/2024 11:25 AM FORMS DESIGNER COMMUNICATION TO RESPIRATORY THERAPY Routine 01/29/2024 10:39 AM FORMS DESIGNER POCT GLUCOSE Routine 01/29/2024 6:40 AM FORMS DESIGNER CBC WITH AUTO DIFFERENTIAL Routine 01/29/2024 4:49 AM FORMS DESIGNER RENAL FUNCTION PANEL (RFP) Routine 01/29/2024 4:49 AM FORMS DESIGNER COMPLETE BLOOD COUNT (CBC) WITH DIFF Routine 01/29/2024 4:49 AM FORMS DESIGNER RHYTHM STRIP 01/29/2024 12:00 AM FORMS DESIGNER RHYTHM STRIP 01/29/2024 12:00 AM FORMS DESIGNER RHYTHM STRIP 01/29/2024 12:00 AM FORMS DESIGNER POCT GLUCOSE Routine 01/28/2024 10:57 PM FORMS DESIGNER POCT GLUCOSE Routine 01/28/2024 5:21 PM FORMS DESIGNER BLOOD GASES, ARTERIAL W/ O2 SATURATION Routine 01/28/2024 11:27 AM FORMS DESIGNER POCT GLUCOSE Routine 01/28/2024 11:23 AM FORMS DESIGNER CBC WITH AUTO DIFFERENTIAL Routine 01/28/2024 9:08 AM FORMS DESIGNER COMPLETE BLOOD COUNT (CBC) WITH DIFF Routine 01/28/2024 9:08 AM FORMS DESIGNER XR CHEST SINGLE VIEW PORTABLE Routine 01/28/2024 5:21 AM FORMS DESIGNER POCT GLUCOSE Routine 01/28/2024 5:10 AM FORMS DESIGNER CBC WITH AUTO DIFFERENTIAL Routine 01/28/2024 4:13 AM FORMS DESIGNER PHOSPHORUS (PO4) Routine 01/28/2024 4:13 AM FORMS DESIGNER MAGNESIUM (MG) Routine 01/28/2024 4:13 AM FORMS DESIGNER HEPATIC FUNCTION PANEL Routine 01/28/2024 4:13 AM FORMS DESIGNER COMPLETE BLOOD COUNT (CBC) WITH DIFF Routine 01/28/2024 4:13 AM FORMS DESIGNER BASIC METABOLIC PANEL W/ CALCIUM TOTAL Routine 01/28/2024 4:13 AM FORMS DESIGNER AMMONIA Routine 01/28/2024 4:13 AM FORMS DESIGNER RHYTHM STRIP 01/28/2024 12:00 AM FORMS DESIGNER RHYTHM STRIP 01/28/2024 12:00 AM FORMS DESIGNER RHYTHM STRIP 01/28/2024 12:00 AM FORMS DESIGNER RHYTHM STRIP 01/28/2024 12:00 AM FORMS DESIGNER POCT GLUCOSE Routine 01/27/2024 11:30 PM FORMS DESIGNER POCT GLUCOSE Routine 01/27/2024 7:07 PM FORMS DESIGNER POCT GLUCOSE Routine 01/27/2024 12:17 PM FORMS DESIGNER TYPE & SCREEN (CROSSMATCH CONVERTIBLE) STAT 01/27/2024 9:49 AM FORMS DESIGNER HEMOGLOBIN & HEMATOCRIT (H&H) STAT 01/27/2024 9:49 AM FORMS DESIGNER XR CHEST SINGLE VIEW PORTABLE Routine 01/27/2024 6:16 AM FORMS DESIGNER POCT GLUCOSE Routine 01/27/2024 5:25 AM FORMS DESIGNER CBC WITH AUTO DIFFERENTIAL Routine 01/27/2024 4:20 AM FORMS DESIGNER RENAL FUNCTION PANEL (RFP) Routine 01/27/2024 4:20 AM FORMS DESIGNER MAGNESIUM (MG) Routine 01/27/2024 4:20 AM FORMS DESIGNER COMPLETE BLOOD COUNT (CBC) WITH DIFF Routine 01/27/2024 4:20 AM FORMS DESIGNER RHYTHM STRIP 01/27/2024 12:00 AM FORMS DESIGNER RHYTHM STRIP 01/27/2024 12:00 AM FORMS DESIGNER RHYTHM STRIP 01/27/2024 12:00 AM FORMS DESIGNER RHYTHM STRIP 01/27/2024 12:00 AM FORMS DESIGNER RHYTHM STRIP 01/27/2024 12:00 AM FORMS DESIGNER POCT GLUCOSE Routine 01/26/2024 11:13 PM FORMS DESIGNER POCT GLUCOSE Routine 01/26/2024 5:36 PM FORMS DESIGNER POCT GLUCOSE Routine 01/26/2024 12:27 PM FORMS DESIGNER ADULT TRANS THORACIC ECHO 2D COMPLT W CONT STAT 01/26/2024 7:53 AM FORMS DESIGNER STREPTOCOCCUS PNEUMONIAE ANTIGEN, URINE Routine 01/26/2024 6:28 AM FORMS DESIGNER UR LEGIONELLA ANTIGEN Routine 01/26/2024 6:28 AM FORMS DESIGNER XR CHEST SINGLE VIEW PORTABLE Routine 01/26/2024 6:16 AM FORMS DESIGNER PROCALCITONIN Routine 01/26/2024 6:15 AM FORMS DESIGNER TROPONIN I, HIGH SENSITIVITY (HSTRP) Routine 01/26/2024 4:28 AM FORMS DESIGNER MANUAL DIFFERENTIAL STAT 01/26/2024 4 :28 AM FORMS DESIGNER CBC WITH AUTO DIFFERENTIAL STAT 01/26/2024 4:28 AM FORMS DESIGNER TRIGLYCERIDES Routine 01/26/2024 4:28 AM FORMS DESIGNER THYROID STIMULATING HORMONE (TSH) Routine 01/26/2024 4:28 AM FORMS DESIGNER MAGNESIUM (MG) Routine 01/26/2024 4:28 AM FORMS DESIGNER LIPID PANEL STAT 01/26/2024 4:28 AM FORMS DESIGNER LACTIC ACID (LACTATE) STAT 01/26/2024 4:28 AM FORMS DESIGNER HEPATIC FUNCTION PANEL STAT 01/26/2024 4:28 AM FORMS DESIGNER CREATINE KINASE (CK) TOTAL Routine 01/26/2024 4:28 AM FORMS DESIGNER COMPLETE BLOOD COUNT (CBC) WITH DIFF STAT 01/26/2024 4:28 AM FORMS DESIGNER BASIC METABOLIC PANEL W/ CALCIUM TOTAL STAT 01/26/2024 4:28 AM FORMS DESIGNER POCT GLUCOSE Routine 01/26/2024 12:29 AM FORMS DESIGNER RHYTHM STRIP 01/26/2024 12:00 AM FORMS DESIGNER RHYTHM STRIP 01/26/2024 12:00 AM FORMS DESIGNER RHYTHM STRIP 01/26/2024 12:00 AM FORMS DESIGNER RHYTHM STRIP 01/26/2024 12:00 AM FORMS DESIGNER AEROSOL NEBULIZER-INITIAL Routine 01/25/2024 10:31 PM FORMS DESIGNER MRSA NASAL PCR STAT 01/25/2024 7:29 PM FORMS DESIGNER TROPONIN I, HIGH SENSITIVITY (HSTRP) STAT 01/25/2024 7:29 PM FORMS DESIGNER MRSA NASAL BY PCR STAT 01/25/2024 7:2 9 PM FORMS DESIGNER LACTIC ACID (LACTATE) STAT 01/25/2024 7:29 PM FORMS DESIGNER CULTURE, RESPIRATORY, LOWER Routine 01/25/2024 7:12 PM FORMS DESIGNER APTT (PTT) STAT 01/25/2024 3:37 PM FORMS DESIGNER TROPONIN I, HIGH SENSITIVITY (HSTRP) STAT 01/25/2024 3:28 PM FORMS DESIGNER EKG 12 LEAD STAT 01/25/2024 2:[address] CHEST, ABDOMEN, PELVIS WITHOUT CONTRAST Stat with Interpretation 01/25/2024 2:27 PM FORMS DESIGNER BLOOD GASES, ARTERIAL W/ O2 SATURATION STAT 01/25/2024 2:02 PM FORMS DESIGNER URINALYSIS REFLEX IF INDICATED BY ABNORMAL RESULTS STAT 01/25/2024 1:31 PM FORMS DESIGNER CULTURE, URINE STAT 01/25/2024 1:31 PM FORMS DESIGNER URINE DRUG SCREEN STAT 01/25/2024 1:3 1 PM FORMS DESIGNER TROPONIN I, HIGH SENSITIVITY (HSTRP) STAT 01/25/2024 1:30 PM FORMS DESIGNER LACTIC ACID (LACTATE) STAT 01/25/2024 1:30 PM FORMS DESIGNER CULTURE, BLOOD STAT 01/25/2024 1:25 PM FORMS DESIGNER CULTURE, BLOOD STAT 01/25/2024 1:05 PM FORMS DESIGNER BLOOD GASES, ARTERIAL W/ O2 SATURATION STAT 01/25/2024 12:55 PM FORMS DESIGNER CTA STROKE HEAD AND NECK Stat with Interpretation 01/25/2024 12:[address] HEAD OR BRAIN WO CONTRAST Stat with Interpretation 01/25/2024 12:37 PM FORMS DESIGNER RSV,SARS-COV-2,INFL UENZA A&B BY PCR STAT 01/25/2024 12:10 PM FORMS DESIGNER LEVETIRACETAM STAT 01/25/2024 12:09 PM FORMS DESIGNER TYPE & SCREEN (CROSSMATCH CONVERTIBLE) STAT 01/25/2024 12:09 PM FORMS DESIGNER LACTIC ACID (LACTATE) STAT 01/25/2024 12:09 PM FORMS DESIGNER HEMOGLOBIN A1C W/ ESTIMATED GLUCOSE STAT 01/25/2024 12:01 PM FORMS DESIGNER TROPONIN I, HIGH SENSITIVITY (HSTRP) STAT 01/25/2024 12:01 PM FORMS DESIGNER CBC WITH AUTO DIFFERENTIAL STAT 01/25/2024 12:01 PM FORMS DESIGNER APTT (PTT) STAT 01/25/2024 12:01 PM FORMS DESIGNER PROTIME (PT) (PROTHROMBIN TIME) STAT 01/25/2024 12:01 PM FORMS DESIGNER MAGNESIUM (MG) STAT 01/25/2024 12:01 PM FORMS DESIGNER CMP (COMPREHENSIVE METABOLIC PANEL) STAT 01/25/2024 12:01 PM FORMS DESIGNER COMPLETE BLOOD COUNT (CBC) WITH DIFF STAT 01/25/2024 12:01 PM FORMS DESIGNER BLOOD GASES, ARTERIAL W/ O2 SATURATION STAT 01/25/2024 11:54 AM FORMS DESIGNER CRITICAL CARE Routine 01/25/2024 11:51 AM FORMS DESIGNER INTUBATION Routine 01/25/2024 11:51 AM FORMS DESIGNER XR CHEST SINGLE VIEW PORTABLE STAT 01/25/2024 11:49 AM FORMS DESIGNER POCT GLUCOSE STAT 01/25/2024 11:48 AM FORMS DESIGNER EKG 12 LEAD STAT 01/25/2024 11:44 AM FORMS DESIGNER POCT CREATININE STAT 01/25/2024 11:[address] STROKE HEAD WO CONTRAST Stat with Interpretation 01/25/2024 11:29 AM FORMS DESIGNER POCT GLUCOSE STAT 01/25/2024 11:24 AM FORMS DESIGNER RHYTHM STRIP 01/25/2024 12:00 AM FORMS DESIGNER RHYTHM STRIP 01/25/2024 12:00 AM FORMS DESIGNER RHYTHM STRIP 01/25/2024 12:00 AM FORMS DESIGNER RHYTHM STRIP 01/25/2024 12:00 AM FORMS DESIGNER EKG SCAN 01/25/2024 12:00 AM FORMS DESIGNER documented in this encounter Results * (ABNORMAL) CBC with Auto Differential (02/09/2024 4:39 AM FORMS DESIGNER) Only the most recent of13 resultswithin the time period is included. WBC 9.15 4.00 - 12.00 10(3)/mcL 02/09/2024 5:03 AM FORMS DESIGNER [facility] RBC 3.09(L) 4.40 - 5.80 10(6)/mcL 02/09/2024 5:[address] [facility] HEMOGLOBIN (HGB) 8.9(L) 13.0 - 16.5 g/dL 02/09/2024 5:03 AM [facility] HEMATOCRIT (HCT) 28.6(L) 38.0 - 50.0 % 02/09/2024 5:[address] [facility] MCV 92.6 82.0 - 96.0 fL 02/09/2024 5:[address] [facility] MCH 28.8 26.0 - 32.0 pg 02/09/2024 5:03 AM [facility] MCHC 31.1 31.0 - 36.0 g/dL 02/09/2024 5:03 AM [facility] PLATELET COUNT 400 140 - 440 10(3)/mcL 02/09/2024 5:03 AM [facility] RDW 15.9(H) 11.8 - 15.5 % 02/09/2024 5:03 AM [facility] MPV 10.7 8.0 - 12.6 fL 02/09/2024 5:03 AM [facility] NEUTROPHILS 71.9(H) 40.0 - 68.0 % 02/09/2024 5:03 AM [facility] LYMPHOCYTES 16.8(L) 19.0 - 49.0 % 02/09/2024 5:03 AM [facility] MONOCYTES 9.5 3.0 - 13.0 % 02/09/2024 5:03 AM [facility] EOSINOPHILS 1.5 0.0 - 8.0 % 02/09/2024 5:03 AM [facility] BASOPHILS 0.3 0.0 - 1.0 % 02/09/2024 5:03 AM [facility] ABSOLUTE NEUTROPHILS 6.57(H) 1.40 - 5.30 10(3)/Health system 02/09/2024 5:03 AM [facility] ABSOLUTE LYMPHOCYTES 1.54 0.90 - 3.30 10(3)/Health system 02/09/2024 5:03 AM [facility] ABSOLUTE MONOCYTES 0.87 0.10 - 0.90 10(3)/Health system 02/09/2024 5:03 AM [facility] ABSOLUTE EOSINOPHIL 0.14 0.00 - 0.50 10(3)/Health system 02/09/2024 5:03 AM [facility] ABSOLUTE BASOPHILS 0.03 0.00 - 0.10 10(3)/Health system 02/09/2024 5:03 AM [facility] NRBC PER 100 WBC 0 02/09/20 5:03 AM [facility] Blood Venipuncture / Unknown 02/09/2024 4:39 AM [facility] 02/09/2024 5:00 AM FORMS DESIGNER Ector Carroll MD HEMATOLOGY ORDERABLES Final Re sult [facility] [address] [place] [address] * (ABNORMAL) Basic Metabolic Panel w/ Calcium Total (02/09/2024 4:39 AM FORMS DESIGNER) Only the most recent of6 resultswithin the time period is included. SODIUM 142 136 - 145 mmol/L 02/09/2024 5:24 AM [facility] POTASSIUM 3.2(L) 3.5 - 5.1 mmol/L 02/09/2024 5:24 AM [facility] CHLORIDE 102 98 - 107 mmol/L 02/09/2024 5:24 AM [facility] CO2, VENOUS 35(H) 22 - 30 mmol/L 02/09/2024 5:24 AM [facility] ANION GAP 8.2 <18.0 mmol/L 02/09/2024 5:24 AM [facility] GLUCOSE 106(H) 70 - 99 mg/dL 02/09/2024 5:24 AM [facility] BUN 15 8 - 26 mg/dL 02/09/2024 5:24 AM [facility] CREATININE, BLOOD 0.74 0.70 - 1.30 mg/dL 02/09/2024 5:24 AM [facility] BUN/CREATININE RATIO 20 12 - 20 ratio 02/09/2024 5:24 AM [facility] CALCIUM 8.6(L) 8.7 - 10.5 mg/dL 02/09/2024 5:24 AM [facility] GFR, ESTIMATED >60 >=60 02/09/2024 5:24 AM [facility] Comment: Creatinine Clearance is the preferred criteria for selecting drug dose adjustments in renally impaired patients. ??The GFR is provided as additional pertinent clinical information. GFR is reported in mL/min/1.73 sq m. Calculation based on the Chronic Kidney Disease Epidemiology Collaboration (CKD- EPI) equation refit without adjustment for race. GFR, EST. >60 >=60 024 5:24 AM [facility] GFR, EST. NONAFRICAN >60 >=60 02/09/2024 5:24 AM FORMS DESIGNER [facility] Blood Venipuncture / Unknown 02/09/2024 4:39 AM FORMS DESIGNER 02/09/2024 5:00 AM FORMS DESIGNER us Ector Carroll MD CHEMISTRY ORDERABLES Final Res ult Performing Organization Address [facility] Co de Phone Number [facility] [address] [place] [address] * RHYTHM STRIP (02/09/2024 12:00 AM FORMS DESIGNER) Only the most recent of61 resultswithin the time period is included. 02/09/2024 us Provider Scan IMG ECG ORDERABLES Final Result Performing Organization Address [facility] de Phone Number RESULTING AGENCY * TROPONIN I, HIGH SENSITIVITY (HSTRP) (02/08/2024 3:45 AM FORMS DESIGNER) Only the most recent of6 resultswithin the time period is included. TROPONIN I, HIGH SENSITIVITY- [facility] 9 <=35 ng/L 02/08/2024 6:35 AM FORMS DESIGNER [facility] Comment: High-sensitivity troponin I results are reported in ng/L making the result appear to be 1,000 times higher than the contemporary troponin I value which is reported in ng/ml. Results from [facility]. Blood Venipuncture / Unknown 02/08/2024 3:45 AM FORMS DESIGNER 02/08/2024 3:48 AM FORMS DESIGNER us Luzma Bermudez [employer], AUTOMAT WATCHER CHEMISTRY ORDERABLES Madyson l Result Performing Organization Address [facility] Co de Phone Number [facility] [address] [place] [address] * (ABNORMAL) CMP (Comprehensive Metabolic Panel) (02/08/2024 3:45 AM FORMS DESIGNER) Only the most recent of3 resultswithin the time period is included. SODIUM 146(H) 136 - 145 mmol/L 02/08/2024 4:10 AM [facility] POTASSIUM 3.5 3.5 - 5.1 mmol/L 02/08/2024 4:10 AM [facility] CHLORIDE 106 98 - 107 mmol/L 02/08/2024 4:10 AM [facility] CO2, VENOUS 30 22 - 30 mmol/L 02/08/2024 4:10 AM [facility] ANION GAP 13.5 <18.0 mmol/L 02/08/2024 4:10 AM [facility] GLUCOSE 168(H) 70 - 99 mg/dL 02/08/2024 4:10 AM [facility] BUN 16 8 - 26 mg/dL 02/08/2024 4:10 AM [facility] CREATININE, BLOOD 0.73 0.70 - 1.30 mg/dL 02/08/2024 4:10 AM [facility] BUN/CREATININE RATIO 22(H) 12 - 20 ratio 02/08/2024 4:10 AM [facility] TOTAL PROTEIN 6.4 6.3 - 8.2 g/dL 02/08/2024 4:10 AM [facility] ALBUMIN 3.0(L) 3.5 - 5.0 g/dL 02/08/2024 4:10 AM [facility] A/G RATIO 0.9(L) 1.0 - 2.2 02/08/2024 4:10 AM [facility] CALCIUM 8.8 8.7 - 10.5 mg/dL 02/08/2024 4:10 AM [facility] T BILI 0.5 0.2 - 1.2 mg/dL 02/08/2024 4:10 AM [facility] SGOT (AST) 12 5 - 34 U/L 02/08/2024 4:10 AM [facility] SGPT (ALT) 9 0 - 55 U/L 02/08/2024 4:10 AM FORMS DESIGNER [facility] ALKALINE PHOSPHATASE 107 40 - 150 U/L 02/08/2024 4:10 AM FORMS DESIGNER [facility] GFR, ESTIMATED >60 >=60 02/08/2024 4:10 AM FORMS DESIGNER [facility] Comment: Creatinine Clearance is the preferred criteria for selecting drug dose adjustments in renally impaired patients. ??The GFR is provided as additional pertinent clinical information. GFR is reported in mL/min/1.73 sq m. Calculation based on the Chronic Kidney Disease Epidemiology Collaboration (CKD- EPI) equation refit without adjustment for race. GFR, EST. >60 >=60 024 4:10 AM FORMS DESIGNER [facility] GFR, EST. NONAFRICAN >60 >=60 02/08/2024 4:10 AM FORMS DESIGNER [facility] Blood Venipuncture / Unknown 02/08/2024 3:45 AM FORMS DESIGNER 02/08/2024 3:48 AM FORMS DESIGNER us Luzma Bermudez [employer] FITTER, AUTOMAT WATCHER CHEMISTRY ORDERABLES Madyson l Result Performing Organization Address City/[facility]/ZIP Co de Phone Number [facility] [address] [place] [address] * (ABNORMAL) B-Type Natriuretic Peptide (BNP) (02/08/2024 3:45 AM FORMS DESIGNER) Only the most recent of2 resultswithin the time period is included. B TYPE NATRIURETIC PEPTIDE 346(H) <100 pg/mL 02/08/2024 4:42 AM FORMS DESIGNER [facility] Blood Venipuncture / Unknown 02/08/2024 3:45 AM FORMS DESIGNER 02/08/2024 3:48 AM FORMS DESIGNER us Luzma Bermudez [employer] SUPPORT FITTER, AUTOMAT WATCHER CHEMISTRY ORDERABLES Madyson l Result Performing Organization Address City/[facility]/ZIP Co de Phone Number [facility] [place] [address] * XR CHEST SINGLE VIEW PORTABLE (02/08/2024 3:44 AM FORMS DESIGNER) Only the most recent of7 resultswithin the time period is included. Anatomical Region Laterality Modality Chest N/A Digital Radiogra phy 02/08/2024 4:27 AM FORMS DESIGNER Impressions 02/08/2024 4:30 AM FORMS DESIGNER IMPRESSION: ?? Worsening CHF with bilateral pleural effusions. Narrative 02/08/2024 4:30 AM FORMS DESIGNER EXAM DESCRIPTION: ?? XR CHEST SINGLE VIEW [...] AM T: ??02/08/2024 4:27 AM Report ID: [id number] Reading Location: ??[id number] Procedure Note Jessica Pena MD - 02/08/2024 [...] Electronically signed by Jessica Pena M.D. SN: SN Report ID: [id number] Reading Location: [id number] IMPRESSION: Worsening CHF with bilateral pleural effusions. Arelis Sellers AIRCRAFT LIFE SUPPORT FITTER, AUTOMAT WATCHER IMG DIAGNOSTIC ORDERABL ES Final Result * (ABNORMAL) Blood Gases, Arterial w/ O2 Saturation (02/08/2024 2:58 AM FORMS DESIGNER) Only the most recent of5 resultswithin the time period is included. O2 STATUS 100% nonrebreather mask 02/08/2024 3:02 AM [facility] PH ARTERIAL 7.38 7.35 - 7.45 02/08/2024 3:02 AM [facility] PC02 (ARTERIAL) 55(H) 35 - 45 mmHg 02/08/2024 3:02 AM [facility] PO2 (ARTERIAL) 125(H) 75 - 100 mmHg 02/08/2024 3:02 AM [facility] O2 SAT ART, MEASURED 98 94 - 100 % 02/08/2024 3:02 AM [facility] BASE ARTERIAL 7.3(H) -2.0 - 2.0 mmol/L 02/08/2024 3:02 AM [facility] BICARBONATE 33.1(H) 22.0 - 26.0 mmol/L 02/08/2024 3:02 AM [facility] WANDA'S TEST RESULTS Non-Radial Site 02/08/2024 3:02 AM [facility] CARBOXYHEMOGLOBIN 2.6 0.0 - 5.0 % 02/08/2024 3:02 AM [facility] METHEMOGLOBIN 0.4 0.0 - 1.5 % 02/08/2024 3:02 AM [facility] ART Blood Gas Arterial Punctur e / Unknown 02/08/2024 2:58 AM FORMS DESIGNER 02/08/2024 2:58 AM FORMS DESIGNER us Arelis Sellers [employer] SUPPORT FITTER, AUTOMAT WATCHER CHEMISTRY ORDERABLES Fi nal Result [facility] [place] [address] * XR SMALL BOWEL FOLLOW THROUGH (02/07/2024 2:33 PM FORMS DESIGNER) Anatomical Region Laterality Modality GI, Abdomen N/A Digital Radiogra phy 02/07/2024 3:56 PM FORMS DESIGNER Impressions 02/07/2024 3:58 PM FORMS DESIGNER IMPRESSION: ?? Normal small bowel follow through exam. ??No evidence of bowel obstruction Narrative 02/07/2024 3:58 PM FORMS DESIGNER EXAM DESCRIPTION: ?? XR SMALL BOWEL FOLLOW THROUGH REASON FOR STUDY: ?? Admitted 01/27/24 due to cardiac arrest. XR KUB and CT Abdomen/Pelvis on 02/06/24 suggest partial or developing small bowel obstruction. Pt had modified barium swallow on 02/05/24. ?? COMPARISON: ?? Abdominal radiographs 02/06/2024 PROCEDURE: Initial receiving checker image of abdomen acquired, followed by administration of ?? 80 mL ??oral contrast. ??Serial radiographic images acquired. ??Fluoroscopic images recorded of the terminal ileum and other indicated areas. ??Compression spot images obtained where possible. ?? FINDINGS: CASING IN LINE SETTER KUB: ?? Residual contrast from prior study [...] PM T: ??02/07/2024 3:56 PM Report ID: [id number] Reading Location: ??[id number] Procedure Note Gale Velez MD - 02/07/2024 EXAM DESCRIPTION: XR SMALL BOWEL FOLLOW THROUGH REASON FOR STUDY: Admitted 01/27/24 due to cardiac arrest. XR KUB and CT Abdomen/Pelvis on 02/06/24 suggest partial or developing small bowel obstruction. Pt had modified barium swallow on 02/05/24. COMPARISON: Abdominal radiographs 02/06/2024 PROCEDURE: Initial receiving checker image of abdomen acquired, followed by administration of 80 mL oral contrast. Serial radiographic images acquired. Fluoroscopic images recorded of the terminal ileum and other indicated areas. Compression spot images obtained where possible. FINDINGS: CASING IN LINE SETTER KUB: Residual contrast from prior study opacifies [...] Gale Beltran M.D. FT: FT Report ID: [id number] Reading Location: [id number] IMPRESSION: Normal small bowel follow through exam. No evidence of bowel obstruction Gagan Chao MD IMG FLUOROSCOPY ORDERABLES Fi nal Result * XR ABDOMEN KUB FLAT PLATE (02/07/2024 11:42 AM FORMS DESIGNER) Only the most recent of3 resultswithin the time period is included. Anatomical Region Laterality Modality Abdomen N/A Digital Radiogra phy 02/07/2024 11:5 6 AM FORMS DESIGNER Impressions 02/07/2024 11:58 AM FORMS DESIGNER IMPRESSION: Nasogastric tube tip and side hole project over the gastric fundus. Bilateral lower lobe pneumonia and small pleural effusions. Narrative 02/07/2024 11:58 AM FORMS DESIGNER EXAM DESCRIPTION: ?? XR ABDOMEN KUB FLAT PLATE REASON FOR STUDY: ?? NG tube placement verification ?? TECHNIQUE: 1 ??radiographic view of the abdomen. COMPARISON: ?? Small-bowel follow-through examination receiving checker image from the same day. ??CT from [...] AM T: ??02/07/2024 11:56 AM Report ID: [id number] Reading Location: ??[id number] Procedure Note Maxi Long MD - 02/07/2024 EXAM DESCRIPTION: XR ABDOMEN KUB FLAT PLATE REASON FOR STUDY: NG tube placement verification TECHNIQUE: 1 radiographic view of the abdomen. COMPARISON: Small-bowel follow-through examination receiving checker image from the same day. CT from [...] Maxi Long M.D. MZ: MAHIN Report ID: [id number] Reading Location: [id number] IMPRESSION: Nasogastric tube tip and side hole project over the gastric fundus. Bilateral lower lobe pneumonia and small pleural effusions. us Gagan Chao MD IMG DIAGNOSTIC ORDERABLES Fin al Result * Lactic Acid (Lactate) (02/07/2024 8:02 AM FORMS DESIGNER) Only the most recent of5 resultswithin the time period is included. LACTIC ACID 0.7 0.7 - 2.0 mmol/L 02/07/2024 8:51 AM FORMS DESIGNER [facility] Blood Venipuncture / Unknown 02/07/2024 8:02 AM FORMS DESIGNER 02/07/2024 8:14 AM FORMS DESIGNER us Gagan Chao MD CHEMISTRY ORDERABLES Final Re sult [facility] [address] [place] [address] * CT ABDOMEN PELVIS W/ CONTRAST (02/06/2024 7:34 PM FORMS DESIGNER) Anatomical Region Laterality Modality Abdomen N/A Computed Tomogra phy 02/06/2024 8:22 PM FORMS DESIGNER Impressions 02/06/2024 8:24 PM FORMS DESIGNER IMPRESSION: Marked stool debris throughout the entire colon with some gas distention of sigmoid colon. ??Findings suggest stool impaction. ?? Dcmi-fe-unclgsyb distention of small bowel loops in the [...] in the bladder. Narrative 02/06/2024 8:24 PM FORMS DESIGNER EXAM DESCRIPTION: ?? CT ABDOMEN PELVIS W/ [...] PM T: ??02/06/2024 8:22 PM Report ID: [id number] Reading Location: ??[id number] Procedure Note Jeanne Hardy MD - 02/06/2024 [...] Sara Hardy M.D. LC: SURESH Report ID: [id number] Reading Location: [id number] IMPRESSION: Marked stool debris throughout the entire colon with some gas distention of sigmoid colon. Findings suggest stool impaction. Awlb-qg-nxkyomby distention of small bowel loops in the [...] clinical factors. Blankenship catheter in the bladder. Gagan Chao MD IMG CT ORDERABLES Final Resul t * MELVIN VÁZQUEZ HEPARIN/SST TOP TUBE (02/06/2024 1:40 PM FORMS DESIGNER) Blood No Phlebotomy Charged / Unknown 02/06/2024 1:40 PM FORMS DESIGNER 02/06/2024 1:45 PM FORMS DESIGNER Gagan Chao MD HEMATOLOGY ORDERABLES Final R esult Performing Organization Address [facility] Co de Phone Number [facility] [place] [address] * Gold Top Tube (02/06/2024 1:40 PM FORMS DESIGNER) Blood No Phlebotomy Charged / Unknown 02/06/2024 1:40 PM FORMS DESIGNER 02/06/2024 1:45 PM FORMS DESIGNER Gagan Chao MD CHEMISTRY ORDERABLES Final Re sult Performing Organization Address [facility] Co de Phone Number [facility] [address] [place] [address] * Blue Top Tube (02/06/2024 1:40 PM FORMS DESIGNER) Blood No Phlebotomy Charged / Unknown 02/06/2024 1:40 PM FORMS DESIGNER 02/06/2024 1:45 PM FORMS DESIGNER us Gagan Chao MD HEMATOLOGY ORDERABLES Final R esult [facility] [address] [place] [address] * XR SWALLOWING FUNCTION STUDY WITH VIDEO/CINE (02/05/2024 10:40 AM FORMS DESIGNER) Anatomical Region Laterality Modality GI, Abdomen N/A Digital Radiogra phy 02/05/2024 11:0 6 AM FORMS DESIGNER Impressions 02/05/2024 11:08 AM FORMS DESIGNER IMPRESSION: ?? Aspiration, as detailed above. Please correlate with Speech Pathology report. Narrative 02/05/2024 11:08 AM FORMS DESIGNER EXAM DESCRIPTION: ?? XR SWALLOWING FUNCTION STUDY [...] 11:06 AM - Electronically signed by ??Maxi STOCKTON: MAHIN D: ??02/05/2024 11:06 AM T: ??02/05/2024 11:06 AM Report ID: [id number] Reading Location: ??[id number] Procedure Note Maxi Long MD - 02/05/2024 [...] Maxi Long M.D. MZ: MZ Report ID: [id number] Reading Location: [id number] IMPRESSION: Aspiration, as detailed above. Please correlate with Speech Pathology report. us Ector Carroll MD IMG FLUOROSCOPY ORDERABLES Fin al Result * (ABNORMAL) POCT Glucose (02/05/2024 8:55 AM FORMS DESIGNER) Only the most recent of41 resultswithin the time period is included. GLUCOSE,BEDSID E POCT 131(H) 70 - 99 mg/dL 02/05/2024 9:01 AM FORMS DESIGNER [facility] Comment:Patient RN Performed Blood 02/05/2024 8:55 AM FORMS DESIGNER 02/05/2024 9:01 AM FORMS DESIGNER us None Provider POINT OF CARE TESTING Final Resu lt Performing Organization Address City/[facility]/ZIP Co de Phone Number [facility] [address] [place] [address] * PHOSPHORUS (PO4) (01/30/2024 9:17 AM FORMS DESIGNER) Only the most recent of2 resultswithin the time period is included. PHOSPHORUS 3.2 2.5 - 4.5 mg/dL 01/30/2024 9:46 AM FORMS DESIGNER [facility] Blood Venipuncture / Unknown 01/30/2024 9:17 AM FORMS DESIGNER 01/30/2024 9:19 AM FORMS DESIGNER Gagan Chao MD CHEMISTRY ORDERABLES Final Re sult Performing Organization Address [facility] Co de Phone Number [facility] [address] [place] [address] * MAGNESIUM (MG) (01/30/2024 9:17 AM FORMS DESIGNER) Only the most recent of5 resultswithin the time period is included. MAGNESIUM 2.0 1.6 - 2.6 mg/dL 01/30/2024 9:46 AM FORMS DESIGNER [facility] Blood Venipuncture / Unknown 01/30/2024 9:17 AM FORMS DESIGNER 01/30/2024 9:19 AM FORMS DESIGNER Gagan Chao MD CHEMISTRY ORDERABLES Final Re sult Performing Organization Address City/[facility] Co de Phone Number [facility] [address] [place] [address] * (ABNORMAL) Renal Function Panel (RFP) (01/30/2024 4:22 AM FORMS DESIGNER) Only the most recent of3 resultswithin the time period is included. SODIUM 141 136 - 145 mmol/L 01/30/2024 5:[address] [facility] POTASSIUM 6.0(H) 3.5 - 5.1 mmol/L 01/30/2024 5:46 AM [facility] Comment: Specimen is hemolyzed. In vitro hemolysis could affect results. Clinical correlation advised. CHLORIDE 104 98 - 107 mmol/L 01/30/2024 5:46 AM [facility] CO2, VENOUS 31(H) 22 - 30 mmol/L 01/30/2024 5:46 AM [facility] ANION GAP 12.0 <18.0 mmol/L 01/30/2024 5:46 AM [facility] GLUCOSE 116(H) 70 - 99 mg/dL 01/30/2024 5:46 AM [facility] BUN 26 8 - 26 mg/dL 01/30/2024 5:46 AM [facility] CREATININE, BLOOD 0.78 0.70 - 1.30 mg/dL 01/30/2024 5:46 AM [facility] BUN/CREATININE RATIO 33(H) 12 - 20 ratio 01/30/2024 5:46 AM [facility] ALBUMIN 2.9(L) 3.5 - 5.0 g/dL 01/30/2024 5:46 AM [facility] CALCIUM 9.7 8.7 - 10.5 mg/dL 01/30/2024 5:46 AM [facility] PHOSPHORUS 3.3 2.5 - 4.5 mg/dL 01/30/2024 5:46 AM [facility] Comment: Specimen is hemolyzed. In vitro hemolysis could affect results. Clinical correlation advised. GFR, ESTIMATED >60 >=60 01/30/2024 5:46 AM [facility] Comment: Creatinine Clearance is the preferred criteria for selecting drug dose adjustments in renally impaired patients. ??The GFR is provided as additional pertinent clinical information. GFR is reported in mL/min/1.73 sq m. Calculation based on the Chronic Kidney Disease Epidemiology Collaboration (CKD- EPI) equation refit without adjustment for race. GFR, EST. >60 >=60 024 5:46 AM FORMS DESIGNER [facility] GFR, EST. NONAFRICAN >60 >=60 01/30/2024 5:46 AM FORMS DESIGNER [facility] Blood Venipuncture / Unknown 01/30/2024 4:22 AM FORMS DESIGNER 01/30/2024 4:57 AM FORMS DESIGNER Spenser Demarco MD CHEMISTRY ORDERABLES Final Result [facility] [address] [place] [address] * (ABNORMAL) Hepatic Function Panel (01/28/2024 4:13 AM FORMS DESIGNER) Only the most recent of2 resultswithin the time period is included. T BILI 0.5 0.2 - 1.2 mg/dL 01/28/2024 5:[address] [facility] BILIRUBIN,DIRECT 0.3 0.0 - 0.5 mg/dL 01/28/2024 5:[address] [facility] ALKALINE PHOSPHATASE 59 40 - 150 U/L 01/28/2024 5:[address] [facility] SGOT (AST) 13 5 - 34 U/L 01/28/2024 5:[address] [facility] SGPT (ALT) 10 0 - 55 U/L 01/28/2024 5:[address] [facility] TOTAL PROTEIN 6.5 6.3 - 8.2 g/dL 01/28/2024 5:[address] [facility] ALBUMIN 3.0(L) 3.5 - 5.0 g/dL 01/28/2024 5:[address] [facility] Blood Venipuncture / Unknown 01/28/2024 4:13 AM FORMS DESIGNER 01/28/2024 4:45 AM FORMS DESIGNER Spenser Demarco MD CHEMISTRY ORDERABLES Final Result [facility] [address] [place] [address] * AMMONIA (01/28/2024 4:13 AM FORMS DESIGNER) AMMONIA 41 18 - 72 umol/L 01/28/2024 5:[address] [facility] Blood Venipuncture / Unknown 01/28/2024 4:13 AM FORMS DESIGNER 01/28/2024 4:44 AM FORMS DESIGNER us Spenser Demarco MD CHEMISTRY ORDERABLES Final Result Performing Organization Address [facility] de Phone Number [facility] [address] [place] [address] * EEG (01/27/2024 10:30 AM FORMS DESIGNER) Narrative Perez Nelson MD - 01/27/2024 10:30 AM FORMS DESIGNER Perez Nelson MD ? 01/28/2024 10:25 PM Electroencephalography Date of EE01/27/24 Clinical History: The patient is a 78 year old male with cardiac arrest. ?? Suspicious for seizure. EEG Description: This EEG was recorded on a [place] with 18 cranial leads and an EKG. [...] discharges were seen. ??Clinical correlation is recommended. us Spenser Demarco MD NEUROLOGY ORDERABLES Final Result * TYPE & SCREEN (CROSSMATCH CONVERTIBLE) (01/27/2024 9:49 AM FORMS DESIGNER) Only the most recent of2 resultswithin the time period is included. ABO TYPING O 01/27/2024 11:25 AM FORMS DESIGNER [facility] BLOOD BANK RH Positive 01/27/2024 11:25 AM FORMS DESIGNER [facility] BLOOD BANK ABSC Negative 01/27/2024 11:25 AM FORMS DESIGNER [facility] BLOOD BANK Blood Venipuncture / Unknown 01/27/2024 9:49 AM FORMS DESIGNER 01/27/2024 10:06 AM FORMS DESIGNER Gagan Chao MD BLOOD BANK ORDERABLES Edited Result - Final Performing Organization Address City/[facility]/ZIP Co de Phone Number [facility] BLOOD BANK #[address] [place] [address] * (ABNORMAL) Hemoglobin & Hematrocrit (H&H) (01/27/2024 9:49 AM FORMS DESIGNER) Pathologist [facility] HEMOGLOBIN (HGB) 8.6(L) 13.0 - 16.5 g/dL 01/27/2024 10:08 AM FORMS DESIGNER [facility] HEMATOCRIT (HCT) 27.1(L) 38.0 - 50.0 % 01/27/2024 10:08 AM FORMS DESIGNER [facility] Blood Venipuncture / Unknown 01/27/2024 9:49 AM FORMS DESIGNER 01/27/2024 10:06 AM FORMS DESIGNER Gagan Chao MD HEMATOLOGY ORDERABLES Final R esult Performing Organization Address City/[facility] Co de Phone Number [facility] [address] [place] [address] * ADULT TRANS THORACIC ECHO 2D COMPLT W CONT (01/26/2024 7:53 AM FORMS DESIGNER) AV Peak Grad mmHg 41.22 mmHg RESULTING [...] CARDIO N/A Ultrasound Narrative 01/26/2024 2:41 PM FORMS DESIGNER Transthoracic Echocardiography Report (TTE) Patient name ? OPAL Bryson ? 1945 Patient ID (UPI) ? [id number] ? Indications: Cardiac arrest, COPD, Atrial fibrillation, [...] ? 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 3 Interpreting ? Calvin ?Referring Physician ?Tal ? Physician Procedure Note Tal Calvin MD - 01/26/2024 Transthoracic Echocardiography Report (TTE) Patient name OPAL Bryson Rafael 1945 Patient ID (UPI) [id number] Indications: Cardiac arrest, COPD, Atrial fibrillation, Aortic [...] lbs. BMI (BSA) 22.91 kg/m^2 (1.9 m^2) Power Plant Mechanic [facility] Room 3 Interpreting Calvin Referring Physician Tal Physician Gagan Chao MD IMG ECHO ORDERABLES Final Res ult * Ur Legionella Antigen (01/26/2024 6:28 AM FORMS DESIGNER) LEGIONELLA URINE AG Negative Negative 01/26/2024 2:14 PM FORMS DESIGNER [facility] Comment:Presumptive Negative for Legionella Pneumophila Serogroup 1 [...] Non-Phlebotomy Collection / Unknown 01/26/2024 6:28 AM FORMS DESIGNER 01/26/2024 7:48 AM FORMS DESIGNER Luzma Bermudez APRN, CNP URINE ORDERABLES Final Re sult [facility] [address] [place] [address], [place] * Streptococcus Pneumoniae Antigen, Urine (01/26/2024 6:28 AM FORMS DESIGNER) STREP PNEUMO ANTIGEN Negative Negative 01/26/2024 2:15 PM FORMS DESIGNER [facility] Comment:Negative result sugg ests no current or recent pneumococcal infection. Infection due to S. pneumoniae cannot be ruled out since the antigen present in the sample may be below the detection limit of the test. Other URINE SPECIMEN / Unknown Non-Phlebotomy Collection / Unknown 01/26/2024 6:28 AM FORMS DESIGNER 01/26/2024 7:48 AM FORMS DESIGNER Luzma Bermudez AIRCRAFT LIFE SUPPORT FITTER, AUTOMAT WATCHER URINE ORDERABLES Final Re sult [facility] [address] [place] [address], [place] * (ABNORMAL) Procalcitonin (01/26/2024 6:15 AM FORMS DESIGNER) PROCALCITONIN 0.73(H) <=0.25 ng/mL 01/26/2024 7:21 AM FORMS DESIGNER [facility] Blood Venipuncture / Unknown 01/26/2024 6:15 AM FORMS DESIGNER 01/26/2024 6:20 AM FORMS DESIGNER us Luzma Bermudez APRN, AUTOMAT WATCHER IMMUNOLOGY ORDERABLES Fin al Result Performing Organization Address City/[facility]/ZIP Co de Phone Number [facility] [address] [place] [address] * (ABNORMAL) Manual Differential (01/26/2024 4:28 AM FORMS DESIGNER) BANDS % 16.0 % 01/26/2024 6:06 AM FORMS DESIGNER [facility] NEUTROPHILS % 64.0 40.0 - 68.0 % 01/26/2024 6:06 AM FORMS DESIGNER [facility] LYMPHOCYTES % 11.0(L) 19.0 - 49.0 % 01/26/2024 6:06 AM FORMS DESIGNER [facility] MONOCYTES % 9.0 3.0 - 13.0 % 01/26/2024 6:06 AM FORMS DESIGNER [facility] NEUTROPHILS ABSOLUTE 6.06 1.50 - 6.70 10(3)/mcL 01/26/2024 6:06 AM FORMS DESIGNER [facility] LYMPHOCYTES ABSOLUTE 0.83(L) 0.90 - 3.30 10(3)/mcL 01/26/2024 6:06 AM FORMS DESIGNER [facility] MONOCYTES ABSOLUTE 0.68 0.10 - 0.90 10(3)/mcL 01/26/2024 6:06 AM FORMS DESIGNER [facility] RBC MORPHOLOGY CONSISTENT WITH INDICES Yes 01/26/2024 6:06 AM FORMS DESIGNER [facility] WBC MORPH STATUS Normal 01/26/20 24 6:06 AM FORMS DESIGNER [facility] PLATELET STATUS Normal 4 6:06 AM FORMS DESIGNER [facility] Blood BLOOD SPECIMEN / Unknown Venipuncture / Unknown 01/26/2024 4:28 AM FORMS DESIGNER 01/26/2024 5:23 AM FORMS DESIGNER Gagan Chao MD HEMATOLOGY ORDERABLES Final R esult [facility] [address] [place] [address] * (ABNORMAL) Creatine Kinase (CK) Total (01/26/2024 4:28 AM FORMS DESIGNER) CK (CPK) 407(H) 30 - 200 U/L 01/26/2024 5:51 AM FORMS DESIGNER [facility] Blood BLOOD SPECIMEN / Unknown Venipuncture / Unknown 01/26/2024 4:28 AM FORMS DESIGNER 01/26/2024 5:23 AM FORMS DESIGNER Spenser Demarco MD HEMATOLOGY ORDERABLES Madyson l Result Performing Organization Address City/[facility]/ZIP Co de Phone Number [facility] [address] [place] [address] * Triglycerides (01/26/2024 4:28 AM FORMS DESIGNER) TRIGLYCERIDES 60 <150 mg/dL 01/26/2024 6:26 AM FORMS DESIGNER [facility] Blood BLOOD SPECIMEN / Unknown Venipuncture / Unknown 01/26/2024 4:28 AM FORMS DESIGNER 01/26/2024 5:23 AM FORMS DESIGNER Spenser Demarco MD CHEMISTRY ORDERABLES Final Result [facility] [address] [place] [address] * (ABNORMAL) Lipid Panel (01/26/2024 4:28 AM FORMS DESIGNER) CHOLESTEROL 84 <200 mg/dL 01/26/2024 5:54 AM FORMS DESIGNER [facility] TRIGLYCERIDES 66 <150 mg/dL 01/26/2024 5:54 AM FORMS DESIGNER [facility] HDL CHOLESTEROL 34(L) >40 mg/dL 5:54 AM FORMS DESIGNER [facility] LDL 37 <130 mg/dL 01/26/2024 5:54 AM FORMS DESIGNER [facility] VLDL 13 10 - 50 mg/dL 01/26/2024 5:54 AM FORMS DESIGNER [facility] CHOL/HDL RATIO 2.5 0.0 - 4.4 01/26/2024 5:54 AM FORMS DESIGNER [facility] NON-HDL CHOLESTEROL 50 <130 mg/dL 01/26/2024 5:54 AM FORMS DESIGNER [facility] Blood BLOOD SPECIMEN / Unknown Venipuncture / Unknown 01/26/2024 4:28 AM FORMS DESIGNER 01/26/2024 5:23 AM FORMS DESIGNER Luzma Bermudez APRN, HUSSEIN CHEMISTRY ORDERABLES Madyson l Result [facility] [address] [place] [address] * Thyroid Stimulating Hormone (TSH) (01/26/2024 4:28 AM FORMS DESIGNER) TSH 0.485 0.300 - 5.000 mIU/L 01/26/2024 6:06 AM FORMS DESIGNER [facility] Blood BLOOD SPECIMEN / Unknown Venipuncture / Unknown 01/26/2024 4:28 AM FORMS DESIGNER 01/26/2024 5:23 AM FORMS DESIGNER Spenser Demarco MD CHEMISTRY ORDERABLES Final Result [facility] [address] [place] [address] * MRSA NASAL PCR (01/25/2024 7:29 PM FORMS DESIGNER) MRSA PCR RESULT Negative Negative, Invalid 01/25/2024 9:03 PM FORMS DESIGNER [facility] Other NASOPHARYNGEAL SWAB / Unknown Non-Phlebotomy Collection / Unknown 01/25/2024 7:29 PM FORMS DESIGNER 01/25/2024 7:31 PM FORMS DESIGNER us Ta Reyes MD MICROBIOLOGY - GENERAL ORDERABLE S Final Result [facility] [address] [place] [address] * Culture, Respiratory, Lower (01/25/2024 7:12 PM FORMS DESIGNER) Pathologist [facility] CULTURE RESULTS PSEUDOMONAS AERUGINOSA 01/29/2024 9:52 PM FORMS DESIGNER [facility] CULTURE RESULTS STREPTOCOCCUS PNEUMONIAE 01/29/2024 9:52 PM FORMS DESIGNER [facility] CULTURE RESULTS Few Mixed matias 01/29/2024 9:52 PM FORMS DESIGNER [facility] Comment:PROBABLE USUAL MATIAS FOR THIS SPECIMEN SOURCE Culture SPECIMEN FROM [facility] OBTAINED BY ASPIRATION / Unknown Non-Phlebotomy Collection / Unknown 01/25/2024 7:12 PM FORMS DESIGNER 01/25/2024 11:11 PM FORMS DESIGNER Narrative Organism Antibiotic Method Susceptibility Pseudomonas aeruginosa [...] ORTEZ SALMERON Susceptible Comment:VERIFIED BY NEELIMA SALMERON us Spenser Demarco MD MICROBIOLOGY - GENERAL ORD ERABLES Final Result Performing Organization Address City/[facility] Co de Phone Number [facility] [address] [place] [address], [place] * PTT (Partial Thromboplastin Time) - baseline (01/25/2024 3:37 PM FORMS DESIGNER) Only the most recent of2 resultswithin the time period is included. PTT 28 24 - 36 sec 01/25/2024 3:59 PM FORMS DESIGNER [facility] Blood Venipuncture / Unknown 01/25/2024 3:37 PM FORMS DESIGNER 01/25/2024 3:39 PM FORMS DESIGNER Narrative [facility] - 01/25/2024 3:59 PM FORMS DESIGNER Therapeutic range for unfractionated heparin at 0.3-0.7 U/mL is an aPTT value in the range of 71-100 seconds. Critical value for the PTT test is >= 122 seconds. us Ta Reyes MD HEMATOLOGY ORDERABLES Final Resu lt Performing Organization Address [facility] Co de Phone Number [facility] [address] [place] [address] * EKG 12 LEAD (01/25/2024 2:39 PM FORMS DESIGNER) Only the most recent of2 resultswithin the time period is included. Ventricular Rate 77 BPM EXTERNAL EKG Atrial Rate 77 BPM EXTERNAL EKG P-R Interval 168 ms EXTERNAL EKG QRS Duration 150 ms EXTERNAL EKG Q-T Duration 428 ms EXTERNAL EKG QTC CALCULATION 484 ms EXTERNAL EKG P Crestline 86 degrees EXTERNAL EKG R Crestline 97 degrees EXTERNAL EKG T Crestline 30 degrees EXTERNAL EKG 01/25/2024 2:39 PM FORMS DESIGNER Impressions EXTERNAL EKG - 01/28/2024 3:01 PM FORMS DESIGNER Normal sinus rhythm Right bundle branch block Abnormal ECG no change since 25 January 2024 11:44 a.m. Confirmed by Robinson Robison ([id number]) on 01/28/2024 3:01:13 PM Narrative Procedure Note Robinson Robison MD - 01/28/2024 IMPRESSION: Normal sinus rhythm Right bundle branch block Abnormal ECG no change since 25 January 2024 11:44 a.m. Confirmed by Robinson Robison ([id number]) on 01/28/2024 3:01:13 PM us Ta Reyes MD IMG ECG ORDERABLES Final Result EXTERNAL EKG * CT CHEST, ABDOMEN, PELVIS WITHOUT CONTRAST (01/25/2024 2:27 PM FORMS DESIGNER) Anatomical Region Laterality Modality Chest, Abdomen, Pelvis N/A Computed Tomography 01/25/2024 3:32 PM FORMS DESIGNER Impressions 01/25/2024 3:34 PM FORMS DESIGNER IMPRESSION: Large amount of debris in the left mainstem bronchus extending into the other bronchi in the left lung. ?? Severe emphysema. Patchy consolidation at both lung bases, worse on the left. Pneumonia is a definite consideration. Small bilateral pleural effusions, cause unknown. Severe atherosclerosis. Narrative 01/25/2024 3:34 PM FORMS DESIGNER EXAM DESCRIPTION: CT CHEST, ABDOMEN, PELVIS WITHOUT [...] PM T: ??01/25/2024 3:32 PM Report ID: [id number] Reading Location: ??[id number] Procedure Note Pa Ovalles MD - 01/25/2024 [...] No stones. No hydronephrosis or hydroureter. A Blankenship catheter is seen in the bladder. [...] Rafa Ovalles M.D. VONNIE: VONNIE Report ID: [id number] Reading Location: [id number] IMPRESSION: Large amount of debris in the left mainstem bronchus extending into the other bronchi in the left lung. Severe emphysema. Patchy consolidation at both lung bases, worse on the left. Pneumonia is a definite consideration. Small bilateral pleural effusions, cause unknown. Severe atherosclerosis. us Ta Reyes MD IMG CT ORDERABLES Final Result * Culture, Urine (01/25/2024 1:31 PM FORMS DESIGNER) CULTURE RESULTS SERRATIA MARCESCENS 01/27/2024 8:02 PM FORMS DESIGNER [facility] CULTURE RESULTS Also mixed growth of distal urethral contaminants 01/27/2024 8:02 PM FORMS DESIGNER [facility] CULTURE RESULTS ENTEROCOCCUS FAECALIS 01/27/2024 8:02 PM FORMS DESIGNER [facility] Comment:SENSITIVITY NOT PERF ORMED Urine URINE SPECIMEN / Unknown Non-Phlebotomy Collection / Unknown 01/25/2024 1:31 PM FORMS DESIGNER 01/25/2024 1:35 PM FORMS DESIGNER Narrative [facility] - 01/27/2024 8:02 PM FORMS DESIGNER Susceptibility not performed on enterococcus species. ??Due [...] MICROBIOLOGY - GENERAL ORDERABLE S Final Result [facility] [address] [place] [address], * (ABNORMAL) Urine Drug Screen (01/25/2024 1:31 PM FORMS DESIGNER) UR AMPHETAMINE NON DETECTED NON DETECTED 01/25/2024 1:[address] [facility] Comment: FOR MEDICAL USE ONLY. CUTOFF CONCENTRATION FOR DETECTED RESULT: AMPHETAMINE: ??500 NG/ML UR BENZODIAZEPINES DETECTED(A) NON DETECTED 01/25/2024 1:[address] [facility] Comment: FOR MEDICAL USE ONLY. CUTOFF CONCENTRATION FOR DETECTED RESULT: BENZODIAZAPINE: ??200 NG/ML UR COCAINE METABOLITE NON DETECTED NON DETECTED 01/25/2024 1:[address] [facility] Comment: FOR MEDICAL USE ONLY. CUTOFF CONCENTRATION FOR DETECTED RESULT: COCAINE: ??150 NG/ML UR OPIATES NON DETECTED NON DETECTED 01/25/2024 1:[address] [facility] Comment: FOR MEDICAL USE ONLY. CUTOFF CONCENTRATION FOR DETECTED RESULT: OPIATES: ? 300 NG/ML UR PHENCYCLIDINE NON DETECTED NON DETECTED 01/25/2024 1:[address] [facility] Comment: FOR MEDICAL USE ONLY. CUTOFF CONCENTRATION FOR DETECTED RESULT: PCP: ? 25 NG/ML UR CANNABINOID NON DETECTED NON DETECTED 01/25/2024 1:[address] [facility] Comment: FOR MEDICAL USE ONLY. CUTOFF CONCENTRATION FOR DETECTED RESULT: THC (MARIJUANA): 50 NG/ML UR BARBITURATE NON DETECTED NON DETECTED 01/25/2024 1:[address] [facility] Comment: FOR MEDICAL USE ONLY. CUTOFF CONCENTRATION FOR DETECTED RESULT: BARBITUATES: ? 200 NG/ML UR FENTANYL NON DETECTED NON DETECTED 01/25/2024 1:[address] [facility] Comment: FOR MEDICAL USE ONLY. CUTOFF CONCENTRATION FOR DETECTED RESULT: FENTANYL: ??1.0 NG/ML Urine Non-Phlebotomy Collection / Unknown 01/25/2024 1:31 PM FORMS DESIGNER 01/25/2024 1:35 PM FORMS DESIGNER us Ta Reyes MD URINE ORDERABLES Final Result [facility] [address] [place] [address] * (ABNORMAL) Urinalysis w/ Reflex (01/25/2024 1:31 PM FORMS DESIGNER) SPECIFIC GRAVITY 1.010 1.003 - 1.030 01/25/2024 1:[address] [facility] URINE PH 5.0 5.0 - 9.0 01/25/2024 1:[address] [facility] WBC ESTERASE 500 /uL(A) Negative 01/25/2024 1:[address] [facility] NITRITE Negative Negative 01/25/2024 1:[address] [facility] PROTEIN, RANDOM URINE 30 mg/dL(A) Negative 01/25/2024 1:[address] [facility] URINE GLUCOSE, QUAL Negative Negative 01/25/2024 1:[address] [facility] URINE KETONES Negative Negative 01/25/2024 1:[address] [facility] UROBILINOGEN Normal Normal mg/dL 01/25/2024 1:[address] [facility] URINE BLOOD 150 /uL(A) Negative rosalinda/ul 01/25/2024 1:[address] [facility] URINALYSIS COLOR Yellow 01/25/20 24 1:[address] [facility] URINALYSIS CLARITY Slightly Cloudy 01/25/2024 1:[address] [facility] WBC (Urine) 11-20(A) Negative, 0-5 /hpf 01/25/2024 1:52 PM [facility] URINE RBC'S 0-2 Negative, 0-2 /hpf 01/25/2024 1:52 PM [facility] EPITHELIAL CELLS Small amount /lpf 2023 1:[address] [facility] BACTERIA, URINE Few(A) Negative /hpf 01/25/2024 1:52 PM FORMS DESIGNER [facility] Urine URINE SPECIMEN / Unknown Non-Phlebotomy Collection / Unknown 01/25/2024 1:31 PM FORMS DESIGNER 01/25/2024 1:35 PM FORMS DESIGNER us Ta Reyes MD URINE ORDERABLES Final Result [facility] [address] [place] [address] * Blood Culture #2 (01/25/2024 1:25 PM FORMS DESIGNER) Only the most recent of2 resultswithin the time period is included. CULTURE RESULTS NO GROWTH WITHIN 5 DAYS, FINAL RESULT 01/30/2024 2:01 PM FORMS DESIGNER [facility] Culture BLOOD SPECIMEN / Unknown Venipuncture / Unknown 01/25/2024 1:25 PM FORMS DESIGNER 01/25/2024 1:25 PM FORMS DESIGNER Ta Reyes MD MICROBIOLOGY - GENERAL ORDERABLE S Final Result [facility] [address] [place] [address], [place] * CTA STROKE HEAD AND NECK (01/25/2024 12:40 PM FORMS DESIGNER) Anatomical Region Laterality Modality vascular N/A Computed Tomogra phy 01/25/2024 1:54 PM FORMS DESIGNER Impressions 01/25/2024 1:56 PM FORMS DESIGNER IMPRESSION: CAROTID CTA: No carotid or vertebral stenosis. INTRACRANIAL CTA: Normal. Narrative 01/25/2024 1:56 PM FORMS DESIGNER EXAM DESCRIPTION: ?? CTA STROKE HEAD AND [...] ?? No other significant finding. INTRACRANIAL VESSELS: KAIBAB OF STOUT: ?? The anterior, middle, posterior [...] PM T: ??01/25/2024 1:54 PM Report ID: [id number] Reading Location: ??[id number] Procedure Note Chris Tran MD - 01/25/2024 [...] OTHER: No other significant finding. INTRACRANIAL VESSELS: KAIBAB OF STOUT: The anterior, middle, posterior cerebral arteries are all patent. No evidence of aneurysm or focal stenosis. POSTERIOR CIRCULATION: The distal vertebral arteries are patent as is the basilar artery. No aneurysm. BRAIN: No gross enhancing lesions as visualized. THIS IS AN ELECTRONICALLY VERIFIED FINAL REPORT 01/25/2024 1:54 PM - Electronically signed by Chris Tran M.D. RB: GILES Report ID: [id number] Reading Location: [place] [address] IMPRESSION: CAROTID CTA: No carotid or vertebral stenosis. INTRACRANIAL CTA: Normal. Ta Reyes MD [facility] CT ORDERABLES Final Result * CT HEAD OR BRAIN WO CONTRAST (01/25/2024 12:37 PM FORMS DESIGNER) Anatomical Region Laterality Modality Head N/A Computed Tomogra phy 01/25/2024 1:23 PM FORMS DESIGNER Impressions 01/25/2024 1:26 PM FORMS DESIGNER IMPRESSION: No acute intracranial abnormality. Narrative 01/25/2024 1:26 PM FORMS DESIGNER EXAM DESCRIPTION: CT HEAD OR BRAIN WO [...] PM T: ??01/25/2024 1:23 PM Report ID: [id number] Reading Location: ??[id number] Procedure Note Edgar Lema MD - 01/25/2024 [...] Edgar Lema M.D. SN: SN Report ID: [id number] Reading Location: [id number] IMPRESSION: No acute intracranial abnormality. Ta Reyes MD IM CT ORDERABLES Final Result * ZAINAB-COV-2 Flu RSV - (Quad PCR) (01/25/2024 12:10 PM FORMS DESIGNER) FLU A Negative Negative, Error 01/25/2024 12:58 PM FORMS DESIGNER [facility] FLU B Negative Negative 01/25/2024 12:58 PM FORMS DESIGNER [facility] RESP SYNC VIRUS Negative Negative 12:58 PM FORMS DESIGNER [facility] SARSCOV2 NOT DETECTED (Reference Range for this test is Not Detected) 01/25/2024 12:58 PM FORMS DESIGNER [facility] Comment:This test was perfor med by a Reverse Career Development Engineer PCR Method. Swab NASOPHARYNGEAL SWAB / Unknown Non-Phlebotomy Collection / Unknown 01/25/2024 12:10 PM FORMS DESIGNER 01/25/2024 12:17 PM FORMS DESIGNER Narrative [facility] - 01/25/2024 12:58 PM FORMS DESIGNER This test has not been FDA cleared or approved; the test has been authorized by FDA under an Emergency Use Authorization (EUA) for use by laboratories certified under the CLIA that meet the requirements to perform moderate, high or waived complexity tests. Authorized Fact Sheets about this test for providers and patients are available at: https://www.fda.gov/medical-devices/nfiedualq-bybxhimktx-unvqein-devices/emergen cy-us e-authorizations us Ta Reyes MD MICROBIOLOGY - GENERAL ORDERABLE S Final Result [facility] [address] [place] [address] * LEVETIRACETAM (01/25/2024 12:09 PM FORMS DESIGNER) LEVETIRACETAM 15.6 12 - 46 mcg/mL 01/25/2024 9:23 PM FORMS DESIGNER [facility] Blood Venipuncture / Unknown 01/25/2024 12:09 PM FORMS DESIGNER 01/25/2024 12:18 PM FORMS DESIGNER us Ta Reyes MD LAB SEND OUTS Final Result [facility] [address] [place] [address], [place] * (ABNORMAL) PT (PROTHROMBIN TIME) (01/25/2024 12:01 PM FORMS DESIGNER) PROTIME-PATIENT 15.1(H) 11.6 - 14.8 sec 01/25/2024 12:24 PM FORMS DESIGNER [facility] INR 1.2 0.9 - 1.2 01/25/2024 12:24 PM FORMS DESIGNER [facility] Comment: Therapeutic Ranges INR = 2.0-3.0: Venous thromb, atrial fib, pul embolism, tissue heart valve, ami. INR = 2.5-3.5: Mechanical heart valve Critical value for INR is >/= 4.5 Blood Venipuncture / Unknown 01/25/2024 12:01 PM FORMS DESIGNER 01/25/2024 12:01 PM FORMS DESIGNER us Ta Reyes MD HEMATOLOGY ORDERABLES Final Resu lt Performing Organization Address City/[facility]/ZIP Co de Phone Number [facility] [address] [place] [address] * Hemoglobin A1C w/ Estimated Glucose (01/25/2024 12:01 PM FORMS DESIGNER) Pathologist [facility] HGB-A1C 5.6 4.0 - 6.0 % 01/25/2024 4:27 PM FORMS DESIGNER [facility] Est Average Glucose 114.0 mg/dL 01/25/2024 4:27 PM FORMS DESIGNER [facility] Blood Venipuncture / Unknown 01/25/2024 12:01 PM FORMS DESIGNER 01/25/2024 12:01 PM FORMS DESIGNER Narrative [facility] - 01/25/2024 4:27 PM FORMS DESIGNER HEMOGLOBIN A1C: DIABETIC PATIENTS: WELL-CONTROLLED: ?? 6.2 - 7.0 INTERMEDIATE WELL-CONTROLLED: ??7.0 - 9.0 POORLY-CONTROLLED: ??>9.0 us Gagan Chao MD CHEMISTRY ORDERABLES Final Re sult [facility] [address] [place] [address] * Critical Care (01/25/2024 11:51 AM FORMS DESIGNER) Ta Lua MD - 01/25/2024 11:51 AM FORMS DESIGNER Ta Reyes MD ? 01/25/2024 ??4:06 PM [...] Final Result * Intubation (01/25/2024 11:51 AM FORMS DESIGNER) Narrative Ta Reyes MD - 01/25/2024 11:51 AM FORMS DESIGNER Ta Reyes MD ? 01/25/2024 ??4:06 PM [...] Result * POCT Creatinine (01/25/2024 11:35 AM FORMS DESIGNER) CREATININE - POCT 1.0 0.6 - 1.3 mg/dL 01/25/2024 12:12 PM FORMS DESIGNER [facility] Blood 01/25/2024 11:3 5 AM FORMS DESIGNER 01/25/2024 12:12 PM FORMS DESIGNER us None Provider POINT OF CARE TESTING Final Resu lt [facility] [address] [place] [address] * CT STROKE HEAD WO CONTRAST (01/25/2024 11:29 AM FORMS DESIGNER) Anatomical Region Laterality Modality Head N/A Computed Tomogra phy 01/25/2024 11:3 6 AM FORMS DESIGNER Impressions 01/25/2024 11:38 AM FORMS DESIGNER IMPRESSION: No acute intracranial abnormality. Results called to ordering provider at the time of image interpretation. Narrative 01/25/2024 11:38 AM FORMS DESIGNER EXAM DESCRIPTION: CT STROKE HEAD WO CONTRAST [...] AM T: ??01/25/2024 11:36 AM Report ID: [id number] Reading Location: ??[id number] Procedure Note Edgar Lema MD - 01/25/2024 [...] Edgar Lema M.D. SN: SN Report ID: [id number] Reading Location: [place] [address] IMPRESSION: No acute intracranial abnormality. Results called to ordering provider at the time of image interpretation. Ta Reyes MD IMG CT ORDERABLES Final Result * EKG SCAN (01/25/2024 12:00 AM FORMS DESIGNER) 01/25/2024 Provider Scan IMG ECG ORDERABLES Final Result RESULTING AGENCY documented in this encounter Visit Diagnoses Diagnosis Cardiopulmonary arrest with successful resuscitation (HCC)- Primary Cardiopulmonary arrest with successful resuscitation ([facility]) Seizure (HCC) Other convulsions Acute respiratory failure with hypoxia and hypercapnia ([facility]) Pneumonia due to infectious organism, unspecified laterality, unspecified part of lung Altered mental status Seizures (HCC) Other convulsions SD (myocardial infarction) (HCC) Acute myocardial infarction, unspecified site, episode of care unspecified CVA (cerebral vascular accident) (HCC) Unspecified cerebral artery occlusion with cerebral infarction COPD (chronic obstructive pulmonary disease) (HCC) Chronic airway obstruction, not elsewhere classified BPH (benign prostatic hyperplasia) Unspecified hyperplasia of prostate without urinary obstruction and other lower urinary tract symptoms (LUTS) A-fib (HCC) Atrial fibrillation Aortic valve stenosis Aortic valve disorders Mitral valve stenosis Mitral stenosis Chronic diastolic heart failure (HCC) Chronic diastolic heart failure CAD (coronary artery disease) Coronary atherosclerosis of unspecified type of vessel, wilton or graft TIA (transient ischemic attack) Unspecified transient cerebral ischemia HLD (hyperlipidemia) Other and unspecified hyperlipidemia Pulmonary HTN (HCC) Other chronic pulmonary heart diseases DM type 2 (diabetes mellitus, type 2) ([facility]) Type II or unspecified type diabetes mellitus without mention of complication, not stated as uncontrolled Seizure ([facility])- Primary Other convulsions documented in this encounter Admitting Diagnoses Diagnosis Cardiopulmonary arrest with successful resuscitation ([facility]) documented in this encounter Administered Medications Inactive Administered Medications - up to 3 most recent administrations Medication Order MAR Action Action Date Dose Rate Site 0.9 % sodium chloride solution at 999 mL/hr, Intravenous, ONCE, 1 dose, On Fri01/25/24 at 1330 New Bag 01/25/2024 1:30 PM FORMS DESIGNER 1,000 mL 999 mL/hr 0.9 % sodium chloride solution at 150 mL/hr, Intravenous, ONCE, 1 dose, On Fri01/25/24 at 1400 New Bag 01/25/2024 2:00 PM FORMS DESIGNER 1,000 mL 150 mL/hr acetaminophen (TYLENOL) suppository 650 mg 650 mg, Rectal, EVERY 4 HOURS PRN, Starting on Fri01/25/24 at 2038, Until Fri02/09/24 at 2110, Mild pain or more severe pain if patient requests, Fever, If patient is taking oral intake without complications and both PO/TN orders are active, administer through the oral route. acetaminophen (TYLENOL) tablet 650 mg 650 mg, Oral, EVERY 4 HOURS PRN, Starting on Fri01/25/24 at 2038, Until Fri02/09/24 at 2110, Mild pain or more severe pain if patient requests, Fever, If patient is taking oral intake without complications and both PO/TN orders are active, administer through the oral route. Given 01/26/2024 2:05 AM FORMS DESIGNER 650 mg acetylcysteine (MUCOMYST) 20 % nebulizer solution 2 mL 2 mL, Nebulization, 2 TIMES DAILY, 6 doses, First dose on Fri02/04/24 at 0930, Last dose on Fri02/06/24 at 1900 Given 02/06/2024 8:34 PM FORMS DESIGNER 2 mL Given 02/06/2024 7:40 AM FORMS DESIGNER 2 mL Given 02/05/2024 8:03 PM FORMS DESIGNER 2 mL albuterol (PROVENTIL, VENTOLIN) (2.5 MG/3ML) 0.083% nebulizer solution 2.5 mg 2.5 mg, Nebulization, 3 TIMES DAILY, First dose on Fri02/02/24 at 1300, Until Discontinued, For RTA Severity Level 2Indications:Cardiopulmonary arrest with successful resuscitation (HCC) Given 02/09/2024 1:14 PM FORMS DESIGNER 2.5 mg Given 02/09/2024 7:44 AM FORMS DESIGNER 2.5 mg Given 02/08/2024 8:48 PM FORMS DESIGNER 2.5 mg albuterol (PROVENTIL, VENTOLIN) (2.5 MG/3ML) 0.083% nebulizer solution 2.5 mg 2.5 mg, Nebulization, EVERY 6 HOURS PRN, Starting on Fri02/02/24 at 0900, Until Fri02/09/24 at 2110, Wheezing, Shortness of Breath, For RTA Severity Level 2Indications:Cardiopulmonary arrest with successful resuscitation (HCC) Given 02/06/2024 12:10 AM FORMS DESIGNER 2.5 mg aspirin chewable tablet 81 mg 81 mg, Oral, DAILY, First dose on Fri01/25/24 at 2100, Until Discontinued Given 02/09/2024 8:21 AM FORMS DESIGNER 81 mg Given 02/08/2024 10:25 AM FORMS DESIGNER 81 mg Given 02/06/2024 7:58 AM FORMS DESIGNER 81 mg azithromycin (ZITHROMAX) 500 mg in sodium chloride 0.9 % 250 mL IVPB 500 mg, Intravenous, EVERY 24 HOURS, 3 doses, First dose on Fri01/25/24 at 2000, Last dose on Fri01/27/24 at 1999, Administer over 60 Minutes, Indications: Community Acquired Pneumonia, at 250 mL/hrIndications:Community Acquired Pneumonia New Bag 01/27/2024 8:20 PM FORMS DESIGNER 500 mg 250 mL/hr New Bag 01/26/2024 7:53 PM FORMS DESIGNER 500 mg 250 mL/hr New Bag 01/25/2024 7:48 PM FORMS DESIGNER 500 mg 250 mL/hr barium sulfate (VARIBAR) 40 % suspension SUSP 16 g 16 g (40 mL), Oral, ONCE, 1 dose, On Debra 02/05/24 at 1100 Given 02/05/2024 10:35 AM FORMS DESIGNER 16 g Barium Sulfate 40 % PSTE 5 mL 5 mL, Oral, ONCE, 1 dose, On Debra 02/05/24 at 1100 Given 02/05/2024 10:34 AM FORMS DESIGNER 5 mL Barium Sulfate 40 % SUSR 4 g 4 g (10 mL), Oral, ONCE, 1 dose, On Debra 02/05/24 at 1100 Given 02/05/2024 10:35 AM FORMS DESIGNER 4 g bisacodyl suppository 10 mg 10 mg, Rectal, ONCE, 1 dose, On 02/02/24 at 0930, Hold for loose stools (loose, liquid, mucoid, soft, watery stool that takes the shape of the container) or greater than 2 moderate or larger stools in 24hrs Given 02/02/2024 9:30 AM FORMS DESIGNER 10 mg cefepime (MAXIPIME) 2 g in sodium chloride 0.9 % 100 mL IVPB 2 g, Intravenous, ONCE, 1 dose, On Debra 01/29/24 at 1130, Administer over 30 Minutes, Indications: Pseudomonas pneumonia, at 200 mL/hrIndications:Pseudomonas pneumonia New Bag 01/29/2024 11:41 AM FORMS DESIGNER 2 g 200 mL/hr cefepime (MAXIPIME) 2 g in sodium chloride 0.9 % 100 mL IVPB 2 g, Intravenous, EVERY 8 HOURS, First dose on Debra 01/29/24 at 2000, Until Discontinued, Administer over 4 Hours, Indications: Pseudomonas pneumonia, at 25 mL/hrIndications:Pseudomonas pneumonia New Bag 02/02/2024 3:19 AM FORMS DESIGNER 2 g 25 mL/hr New Bag 02/01/2024 7:28 PM FORMS DESIGNER 2 g 25 mL/hr New Bag 02/01/2024 1:01 PM FORMS DESIGNER 2 g 25 mL/hr cefTRIAXone (ROCEPHIN) injection 2 g 2 g, Intravenous, EVERY 24 HOURS, First dose on 01/25/24 at 1430, Until Discontinued, Indications: CystitisIndications:Cystiti s Given 01/25/2024 2:30 PM FORMS DESIGNER 2 g dexmedetomidine HCl in NaCl (PRECEDEX) 400 MCG/100ML infusion 0-1 mcg/kg/hr ? 72.4 kg (0-18.1 mL/hr), Intravenous, CONTINUOUS, Starting on 01/31/24 at 0530, Until Debra 02/05/24 at 0745, 1) Start infusion at 0.2 mcg/kg/hour. 2) Goal for Sedation is a RASS Score of -2 to 0. 3) Titrate infusion by 0.1 mcg/kg/hour every 30 minutes to Sedation Goal 4) Call physician if not at Sedation Goal at maximum of ordered dose range, for Hypotension, and for Bradycardia. Rate Change 02/03/2024 5:30 AM FORMS DESIGNER 0.1 mcg/kg/hr 1.8 mL/hr Restarted 02/03/2024 1:39 AM FORMS DESIGNER 0.2 mcg/kg/hr 3.6 mL/hr Rate Change 02/02/2024 1:15 AM FORMS DESIGNER 0.5 mcg/kg/hr 9.1 mL/hr DEXMEDETOMIDINE HCL IN NACL 400 MCG/100ML IV SOLN 1 dose, Starting on 01/31/24 at 0503, Until 01/31/24 at 0500, Created by cabinet override dextrose 5 % in lactated ringers infusion at 50 mL/hr, Intravenous, CONTINUOUS, Starting on Fri01/30/24 at 1030, Until Fri02/01/24 at 1119 New Bag 02/01/2024 1:22 AM FORMS DESIGNER 50 mL/hr New Bag 01/31/2024 4:22 AM FORMS DESIGNER 50 mL/hr New Bag 01/30/2024 10:45 AM FORMS DESIGNER 50 mL/hr dextrose 5 % solution at 50 mL/hr, Intravenous, CONTINUOUS, Starting on Fri02/01/24 at 1200, Until Fri02/02/24 at 1159 New Bag 02/02/2024 9:39 AM FORMS DESIGNER 50 mL/hr New Bag 02/01/2024 12:59 PM FORMS DESIGNER 50 mL/hr diatrizoate meglumine-sodium (GASTROGRAFIN) 66-10 % solution 90 mL 90 mL, Oral, ONCE, 1 dose, On 02/07/24 at 1500 Given 02/07/2024 11:55 AM FORMS DESIGNER 80 mL enoxaparin (LOVENOX) injection 40 mg 40 mg, Subcutaneous, EVERY 24 HOURS SCHEDULED (Daily), First dose on 01/25/24 at 2100, Until Discontinued Given 01/25/2024 9:00 PM FORMS DESIGNER 40 mg Right Abdomen enoxaparin (LOVENOX) injection 40 mg 40 mg, Subcutaneous, EVERY 24 HOURS SCHEDULED (Daily), First dose (after last modification) on Debra 01/29/24 at 0900, Until Discontinued Given 02/09/2024 8:20 AM FORMS DESIGNER 40 mg Left Abdomen Given 02/08/2024 10:25 AM FORMS DESIGNER 40 mg R ight Abdomen Given 02/07/2024 10:41 AM FORMS DESIGNER 40 mg L eft Abdomen enoxaparin (LOVENOX) injection 70 mg 70 mg (rounded from 72.4 mg = 1 mg/kg ? 72.4 kg), Subcutaneous, EVERY 12 HOURS SCHEDULED, First dose (after last modification) on Fri01/26/24 at 0900, Until Discontinued Given 01/27/2024 8:26 PM FORMS DESIGNER 70 mg Right Abdomen Given 01/27/2024 9:18 AM FORMS DESIGNER 70 mg Le ft Abdomen Given 01/26/2024 8:01 PM FORMS DESIGNER 70 mg Le ft Abdomen EPINEPHrine (ADRENALINE) injection Intravenous, Code medication, Starting on 01/25/24 at 1135, Until [place] 01/25/24 at 1135 Given 01/25/2024 11:35 AM FORMS DESIGNER 1 mg EPINEPHrine (Anaphylaxis) injection 0.3 mg 0.3 mg, Intramuscular, ONCE PRN, 1 dose, Starting on Fri01/26/24 at 0744, Until Fri02/09/24 at 2110, Other, Use during or immediately following echo cardiogram following [employer] Allergic Reaction with Respiratory Compromise Standing Order, Use during or immediately following echo cardiogram following [employer] Allergic Reaction with Respiratory Compromise Standing Order, notify ordering provider if utilized, call rapid response or 911 (off -site). etomidate (AMIDATE) injection 20 mg 20 mg, Intravenous, ONCE, 1 dose, On 01/25/24 at 1230 Given 01/25/2024 11:35 AM FORMS DESIGNER 20 mg famotidine (PF) (PEPCID) injection 20 mg 20 mg, Intravenous, DAILY, First dose on [place] 01/25/24 at 1930, Until Discontinued, Indications: Stress Ulcer ProphylaxisIndications:Stress Ulcer Prophylaxis Given 01/30/2024 8:14 AM FORMS DESIGNER 20 mg Given 01/29/2024 8:18 AM FORMS DESIGNER 20 mg Given 01/28/2024 8:18 AM FORMS DESIGNER 20 mg fentaNYL (PF) (SUBLIMAZE) injection 25 mcg 25 mcg, Intravenous, EVERY 1 HOUR PRN, Starting on 01/25/24 at 1846, Until [facility] 01/29/24 at 1033, Moderate pain or more severe pain if patient requests Given 01/28/2024 7:00 PM FORMS DESIGNER 25 mcg Given 01/28/2024 1:46 PM FORMS DESIGNER 25 mcg Given 01/28/2024 7:27 AM FORMS DESIGNER 25 mcg furosemide (LASIX) injection 40 mg 40 mg, Intravenous, ONCE, 1 dose, On Fri02/08/24 at 0600 Given 02/08/2024 5:49 AM FORMS DESIGNER 40 mg furosemide (LASIX) injection 40 mg 40 mg, Intravenous, 2 TIMES DAILY WITH MEALS, First dose (after last modification) on Fri02/08/24 at 1200, Until Discontinued Given 02/08/2024 6:07 PM FORMS DESIGNER 40 mg Given 02/08/2024 12:52 PM FORMS DESIGNER 40 mg heparin 25,000 units in 0.45 % sodium chloride 500 mL infusion 300-3,000 Units/hr (6-60 mL/hr), Intravenous, CONTINUOUS, Starting on Fri01/25/24 at 1600, Until Fri01/25/24 at 1846, Ischemic Cardiac Nomogram Notify the provider if a PTT value comes back at a level not expected [facility] 01/25/2024 4:04 PM FORMS DESIGNER 850 Units/hr 17 mL/hr hydrALAZINE (APRESOLINE) injection 10 mg 10 mg, Intravenous, EVERY 1 HOUR PRN, Starting on Fri01/25/24 at 2033, Until Fri02/09/24 at 2110, Heart rate less than 60, Administer 10 mg every hour IVP over 2 minutes for SBP greater than 220. May repeat initial dose in 10 minutes x 1. If BP remains greater than 220 or PRN required hourly x2 consecutive hours, call provider insulin glargine (LANTUS) 100 UNIT/ML injection 10 Units 10 Units, Subcutaneous, EVERY MORNING, First dose on Fri01/28/24 at 1100, Until Discontinued, On hold since Fri01/30/2024 at 1009 until manually unheld Given 01/29/2024 8:18 AM FORMS DESIGNER 10 Units Right Abdomen Given 01/28/2024 11:36 AM FORMS DESIGNER 10 Units R ight Abdomen insulin glargine (LANTUS) 100 UNIT/ML injection 15 Units 15 Units, Subcutaneous, NIGHTLY, First dose on Fri02/03/24 at 2200, Until Discontinued Given 02/03/2024 10:25 PM FORMS DESIGNER 15 Units Right Lateral Upper Arm insulin lispro (HumaLOG) 100 UNIT/ML injection 2-12 Units 2-12 Units, Subcutaneous, EVERY 6 HOURS SCHEDULED (4 times per day), First dose on Fri01/26/24 at 0600, Until Discontinued, If BS is: 70-180 give no correction Insulin; 181-200 give 2 Units; 201-250 give 4 Units; 251-300 give 6 Units; 301-350 give 8 Units; 351-400 give 10 Units; 401 or greater give 12 Units and call physician Given 02/03/2024 12:15 PM FORMS DESIGNER 8 Units Right Lateral Upper Arm Given 01/29/2024 6:44 AM FORMS DESIGNER 2 Units Le ft Abdomen Given 01/28/2024 5:30 PM FORMS DESIGNER 4 Units Le ft Abdomen insulin lispro (HumaLOG) 100 UNIT/ML injection 5 Units 5 Units, Subcutaneous, 3 TIMES DAILY BEFORE MEALS, First dose on Fri02/03/24 at 1600, Until Discontinued Given 02/03/2024 4:49 PM FORMS DESIGNER 5 Units Left Lateral Upper A rm insulin lispro (HumaLOG) 100 UNIT/ML injection 5 Units 5 Units, Subcutaneous, 4 TIMES DAILY WITH MEALS & NIGHTLY, First dose (after last modification) on Fri02/04/24 at 1130, Until Discontinued Given 02/04/2024 1:29 PM FORMS DESIGNER 5 Units Left Abdomen insulin NPH (HumuLIN N;NovoLIN N) injection 10 Units 10 Units, Subcutaneous, ONCE, 1 dose, On Fri02/03/24 at 1330 Given 02/03/2024 1:33 PM FORMS DESIGNER 10 Units Left Lateral Upper A rm iopamidol (ISOVUE-370) 76 % injection 100 mL 100 mL, Intravenous, ONCE, 1 dose, On Fri01/25/24 at 1300 Given 01/25/2024 12:37 PM FORMS DESIGNER 100 mL iopamidol (ISOVUE-370) 76 % injection 76 mL 76 mL, Intravenous, ONCE, 1 dose, On Fri02/06/24 at 2000 Given 02/06/2024 7:32 PM FORMS DESIGNER 76 mL ipratropium-albuterol (DUO-NEB) 0.5-2.5 (3) MG/3ML nebulizer solution 3 mL 3 mL, Nebulization, EVERY 6 HOURS, First dose on Fri01/25/24 at 1930, Until Discontinued Given 01/28/2024 7:26 AM FORMS DESIGNER 3 mL Given 01/28/2024 12:47 AM FORMS DESIGNER 3 mL Given 01/27/2024 7:38 PM FORMS DESIGNER 3 mL ipratropium-albuterol (DUO-NEB) 0.5-2.5 (3) MG/3ML nebulizer solution 3 mL 3 mL, Nebulization, EVERY 4 HOURS, First dose (after last modification) on Fri01/28/24 at 1100, Until Discontinued Given 01/30/2024 7:52 PM FORMS DESIGNER 3 mL Given 01/30/2024 3:07 PM FORMS DESIGNER 3 mL Given 01/30/2024 10:54 AM FORMS DESIGNER 3 mL ipratropium-albuterol (DUO-NEB) 0.5-2.5 (3) MG/3ML nebulizer solution 3 mL 3 mL, Nebulization, 4 TIMES DAILY, First dose (after last modification) on 01/31/24 at 0700, Until Discontinued, For RTA severity level 3Indications:Acute respiratory failure with hypoxia and hypercapnia (HCC) Given 01/31/2024 5:08 AM FORMS DESIGNER 3 mL ipratropium-albuterol (DUO-NEB) 0.5-2.5 (3) MG/3ML nebulizer solution 3 mL 3 mL, Nebulization, EVERY 6 HOURS, First dose on 01/31/24 at 1300, Until DiscontinuedIndications:Cardiopulmonary arrest with successful resuscitation (HCC) Given 02/02/2024 7:36 AM FORMS DESIGNER 3 mL Given 02/02/2024 1:41 AM FORMS DESIGNER 3 mL Given 02/01/2024 8:06 PM FORMS DESIGNER 3 mL labetalol (NORMODYNE;TRANDATE) injection 10 mg 10 mg, Intravenous, EVERY 1 HOUR PRN, Starting on 01/25/24 at 2033, Until 02/09/24 at 2110, Non - Reperfusion. Administer 10 mg every hour IVP over 2 minutes for SBP greater than 220. May repeat initial dose in 10 minutes x 1. If BP remains greater than 220 or PRN required hourly x2 consecutive hours, call provider , Heart rate greater than 60 lacosamide (VIMPAT) injection 100 mg 100 mg, Intravenous, EVERY 12 HOURS SCHEDULED, First dose on Fri01/26/24 at 1330, Until Discontinued, Administer over 5 Minutes Given 02/04/2024 8:46 AM FORMS DESIGNER 100 mg Given 02/03/2024 8:02 PM FORMS DESIGNER 100 mg Given 02/03/2024 10:06 AM FORMS DESIGNER 100 mg lacosamide (VIMPAT) injection 100 mg 100 mg, Intravenous, 2 TIMES DAILY, First dose on Fri02/06/24 at 2330, Until Discontinued, Administer over 5 Minutes Given 02/07/2024 10:40 AM FORMS DESIGNER 100 mg Given 02/06/2024 11:23 PM FORMS DESIGNER 100 mg lacosamide (VIMPAT) tablet 100 mg 100 mg, Oral, 2 TIMES DAILY, First dose on Fri02/04/24 at 2100, Until Discontinued Given 02/06/2024 7:58 AM FORMS DESIGNER 100 mg Given 02/05/2024 9:48 PM FORMS DESIGNER 100 mg Given 02/05/2024 8:43 AM FORMS DESIGNER 100 mg lacosamide (VIMPAT) tablet 100 mg 100 mg, Oral, 2 TIMES DAILY, First dose on Fri02/06/24 at 2330, Until Discontinued Given 02/09/2024 8:21 AM FORMS DESIGNER 100 mg Given 02/08/2024 9:43 PM FORMS DESIGNER 100 mg Given 02/08/2024 10:25 AM FORMS DESIGNER 100 mg lactated ringers infusion at 75 mL/hr, Intravenous, CONTINUOUS, Starting on 01/25/24 at 1930, Until Fri01/26/24 at 1146 New Bag 01/26/2024 9:30 AM FORMS DESIGNER 75 mL/hr New Bag 01/25/2024 7:48 PM FORMS DESIGNER 75 mL/hr lactulose (CHRONULAC) 10 GM/15ML solution 20 g 20 g, Oral, 4 TIMES DAILY, 2 doses, First dose on Fri02/06/24 at 1030, Last dose on Fri02/06/24 at 1400 Given 02/06/2024 1:11 PM FORMS DESIGNER 20 g Given 02/06/2024 11:04 AM FORMS DESIGNER 20 g lactulose (CHRONULAC) 10 GM/15ML solution 20 g 20 g, Oral, EVERY 4 HOURS, 4 doses, First dose (after last reorder) on 02/07/24 at 1630, Last dose on 02/08/24 at 0430 Given 02/07/2024 7:30 PM FORMS DESIGNER 20 g Given 02/07/2024 5:01 PM FORMS DESIGNER 20 g levETIRAcetam (KEPPRA) injection 1,000 mg 1,000 mg, Intravenous, EVERY 12 HOURS, First dose on 01/25/24 at 1930, Until Discontinued, Administer over 2 Minutes Given 02/04/2024 8:46 AM FORMS DESIGNER 1,00 0 mg Given 02/03/2024 8:02 PM FORMS DESIGNER 1,000 mg Given 02/03/2024 10:06 AM FORMS DESIGNER 1,000 mg levETIRAcetam (KEPPRA) injection 1,000 mg 1,000 mg, Intravenous, 2 TIMES DAILY, First dose on Fri02/06/24 at 2330, Until Discontinued, Administer over 2 Minutes Given 02/07/2024 10:40 AM FORMS DESIGNER 1,0 00 mg Given 02/06/2024 11:23 PM FORMS DESIGNER 1,000 mg levETIRAcetam (KEPPRA) tablet 1,000 mg 1,000 mg, Oral, 2 TIMES DAILY, First dose on Fri02/04/24 at 2100, Until Discontinued, Crush in applesauce Given 02/06/2024 7:58 AM FORMS DESIGNER 1,000 mg Given 02/05/2024 9:48 PM FORMS DESIGNER 1,000 mg Given 02/05/2024 8:43 AM FORMS DESIGNER 1,000 mg levETIRAcetam (KEPPRA) tablet 1,000 mg 1,000 mg, Oral, 2 TIMES DAILY, First dose on Fri02/06/24 at 2330, Until Discontinued Given 02/09/2024 8:21 AM FORMS DESIGNER 1,000 mg Given 02/08/2024 9:43 PM FORMS DESIGNER 1,000 mg Given 02/08/2024 10:25 AM FORMS DESIGNER 1,000 mg Lidocaine 4 % patch 1 Patch 1 Patch, Transdermal, NIGHTLY, First dose on Fri01/31/24 at 2230, Until Discontinued, Administer over 12 Hours, Application Site: Back - Remove patch after 12 hours Patch Applied 02/07/2024 9:33 PM FORMS DESIGNER 1 Patch Right Scapular Patch Applied 02/06/2024 9:58 PM FORMS DESIGNER 1 Patch Right Scapular Patch Applied 02/05/2024 9:48 PM FORMS DESIGNER 1 Patch Other (See comment) LORazepam (ATIVAN) injection 2 mg 2 mg, Intravenous, EVERY 1 HOUR PRN, Starting on 01/25/24 at 1852, Until Fri02/09/24 at 2110, Other, Seizures, For intramuscular administration: Administer undiluted. For intravenous administration: Dilute with an equal volume of NS prior to administration. Gently invert to mix. Maximum rate of IV administration is 2mg/min. magnesium hydroxide (MILK OF MAGNESIA) 400 MG/5ML suspension 30 mL 30 mL, Oral, DAILY PRN, Starting on Fri01/25/24 at 2037, Until Fri02/09/24 at 2110, Constipation - 3rd line, Magnesium hydroxide 400 mg/5 ml = 166.7 mg elemental magnesium/5ml. Hold for loose stools (loose, liquid, mucoid, soft, watery stool that takes the shape of the container) or greater than 2 moderate or larger stools in 24hrsIndications:Constipation magnesium sulfate in 5 % dextrose IVPB premix 1 g 1 g, Intravenous, ONCE, 1 dose, On Fri01/26/24 at 0900, Administer over 2 Hours, For Serum Magnesium 1.6- 2 mg/dL: Magnesium 1gm IVPB Once. Lab Results Component Value Date MAGNESIUM 1.6 01/26/2024 Unless otherwise directed, administer each gram over 2 hours. New Bag 01/26/2024 9:30 AM FORMS DESIGNER 1 g 50 mL/hr methylPREDNISolone Na Suc (PF) (Solu-MEDROL) injection 40 mg 40 mg, Intravenous, EVERY 12 HOURS, First dose on Fri01/27/24 at 1130, Until Discontinued Given 01/28/2024 10:50 PM FORMS DESIGNER 40 mg Given 01/28/2024 11:38 AM FORMS DESIGNER 40 mg Given 01/27/2024 10:37 PM FORMS DESIGNER 40 mg methylPREDNISolone Na Suc (PF) (Solu-MEDROL) injection 40 mg 40 mg, Intravenous, EVERY 24 HOURS, First dose (after last modification) on Fri01/29/24 at 2200, Until Discontinued Given 02/01/2024 9:13 PM FORMS DESIGNER 40 mg Given 01/31/2024 8:22 PM FORMS DESIGNER 40 mg Given 01/30/2024 8:06 PM FORMS DESIGNER 40 mg metoclopramide (REGLAN) injection 5 mg 5 mg, Intravenous, EVERY 6 HOURS PRN, Starting on Fri01/25/24 at 1613, Until Fri02/09/24 at 2110, Vomiting, Nausea - 1st line metOLazone (ZAROXOLYN) tablet 5 mg 5 mg, Per NG tube, ONCE, 1 dose, On Fri01/28/24 at 1100 Given 01/28/2024 11:36 AM FORMS DESIGNER 5 mg metOLazone (ZAROXOLYN) tablet 5 mg 5 mg, Per NG tube, ONCE, 1 dose, On Fri01/28/24 at 1800 Given 01/28/2024 5:30 PM FORMS DESIGNER 5 mg midazolam (VERSED) 1 mg/mL premix IV 1 dose, Starting on 01/25/24 at 1140, Until 01/25/24 at 1149, Created by cabinet override midazolam (VERSED) 1 mg/mL premix IV 1-15 mg/hr (1-15 mL/hr), Intravenous, CONTINUOUS, Starting on 01/25/24 at 1230, Until 01/26/24 at 1146, Max Dose 15 mg/hr GOAL for Sedation: RASS Score of -2 to 0 INITIATE : 1mg/hr TITRATE : 1-2mg/hr increments. Give IV Push 2mg Midazolam prn , if ordered, prior to each rate increase or anticipated procedure INTERVAL: 30-60min Contact Provider if Sedation Goal not achieved at Min or Max of goal range Rate Change 01/26/2024 12:45 AM FORMS DESIGNER 1 mg/hr 1 mL/hr Rate Change 01/26/2024 12:15 AM FORMS DESIGNER 3 mg/hr 3 mL/hr Rate Change 01/25/2024 11:45 PM FORMS DESIGNER 5 mg/hr 5 mL/hr midazolam (VERSED) injection 5 mg 5 mg, Intravenous, EVERY 1 HOUR PRN, Starting on 01/25/24 at 1152, Until [place] 01/29/24 at 1039, Other, to maintain at sedation goal, 1. Goal for Sedation is a RASS Score of -2 to 0. 2. Contact physician if IV Push if goal not achieved after 3 consecutive doses Given 01/28/2024 1:32 AM FORMS DESIGNER 5 mg Given 01/27/2024 3:01 PM FORMS DESIGNER 5 mg Given 01/27/2024 5:21 AM FORMS DESIGNER 5 mg MIDAZOLAM HCL 5 MG/ML IJ SOLN 1 dose, Starting on 01/25/24 at 1143, Until 01/25/24 at 1144, Created by cabinet override morphine sulfate (PF) injection 1 mg 1 mg, Intravenous, EVERY 4 HOURS PRN, Starting on Fri01/30/24 at 1529, Until 02/01/24 at 1528, Moderate pain or more severe pain if patient requests Given 02/01/2024 2:02 PM FORMS DESIGNER 1 mg Given 02/01/2024 7:55 AM FORMS DESIGNER 1 mg Given 01/31/2024 10:00 PM FORMS DESIGNER 1 mg morphine sulfate (PF) injection 1 mg 1 mg, Intravenous, EVERY 4 HOURS PRN, Starting on Fri02/01/24 at 1818, Until Fri02/03/24 at 1817, Moderate pain or more severe pain if patient requests Given 02/03/2024 10:02 AM FORMS DESIGNER 1 mg Given 02/02/2024 4:18 AM FORMS DESIGNER 1 mg Given 02/01/2024 7:27 PM FORMS DESIGNER 1 mg nicotine (NICODERM CQ) 21 MG/24HR patch 1 Patch 1 Patch, Transdermal, DAILY PRN, Starting on Fri01/30/24 at 1323, Until Fri02/09/24 at 2110, Administer over 24 Hours, smoking cessation, For disposal of medication AND containers- black bin Patch Applied 02/04/2024 5:05 PM FORMS DESIGNER 1 Patch Right Scapular Patch Applied 02/01/2024 9:11 PM FORMS DESIGNER 1 Patch Right Upper Arm Patch Applied 01/30/2024 1:43 PM FORMS DESIGNER 1 Patch Right Scapular OLANZapine (ZYPREXA) injection 5 mg 5 mg, Intramuscular, ONCE, 1 dose, On Fri01/30/24 at 2130, Concurrent use of IM Olanzapine and benzodiazepines has a pronounced effect on SBP and oxygenation status. Concurrent use of these agents in the setting of alcohol intoxication is not recommended. Given 01/30/2024 8:54 PM FORMS DESIGNER 5 mg Left Vastus Laterali s OLANZapine (ZYPREXA) injection 5 mg 5 mg, Intramuscular, ONCE, 1 dose, On Fri02/01/24 at 2230, Concurrent use of IM Olanzapine and benzodiazepines has a pronounced effect on SBP and oxygenation status. Concurrent use of these agents in the setting of alcohol intoxication is not recommended. Given 02/01/2024 10:59 PM FORMS DESIGNER 5 mg Left Vastus Laterali s ondansetron (ZOFRAN) injection 4 mg 4 mg, Intravenous, EVERY 6 HOURS PRN, Starting on Fri01/25/24 at 1613, Until Fri02/09/24 at 2110, Nausea - 2nd line oxyCODONE-acetaminophen (PERCOCET) 5-325 MG per tablet 1 Tablet 1 Tablet, Oral, EVERY 4 HOURS PRN, Starting on Fri02/04/24 at 0445, Until Fri02/09/24 at 2110, Moderate pain or more severe pain if patient requests, Maximum dose of acetaminophen is 4000 mg from all sources in 24 hours. If pain not effectively managed, then contact provider to discuss possibly 1) adding scheduled opioid dosing or non-opioid pain treatments, 2) increasing dosage, or 3) changing to [employer]. Given 02/09/2024 7:47 AM FORMS DESIGNER 1 Tablet Given 02/08/2024 3:04 PM FORMS DESIGNER 1 Tablet Given 02/08/2024 5:36 AM FORMS DESIGNER 1 Tablet piperacillin-tazobactam (ZOSYN) 4.5 g in sodium chloride 0.9 % 100 mL IVPB 4.5 g, Intravenous, ONCE, 1 dose, On 01/25/24 at 1630, Administer over 30 Minutes, First dose should be bolus dose over 30 minutes, with second dose given 4 hours later (8 hours for q12 regimen) Lactated ringer? s solution is not compatible with piperacillin/tazobactam. Run LR and piperacillin/tazobactam in separate lines or contact provider to request an alternate maintenance fluid., Indications: Aspiration Pneumonia, at 200 mL/hrIndications:Aspiration Pneumonia New Bag 01/25/2024 4:06 PM FORMS DESIGNER 4.5 g 200 mL/hr piperacillin-tazobactam (ZOSYN) 4.5 g in sodium chloride 0.9 % 100 mL IVPB 4.5 g, Intravenous, EVERY 8 HOURS, First dose on Fri01/25/24 at 2030, Until Discontinued, Administer over 4 Hours, Second dose given 4 hours after first dose (8 hours for q12 regimen) Lactated ringer? s solution is not compatible with piperacillin/tazobactam. Run LR and piperacillin/tazobactam in separate lines or contact provider to request an alternate maintenance fluid., Indications: Aspiration Pneumonia, at 25 mL/hrIndications:Aspiration Pneumonia New Bag 01/29/2024 4:23 AM FORMS DESIGNER 4.5 g 25 mL/hr New Bag 01/28/2024 7:40 PM FORMS DESIGNER 4.5 g 25 mL/hr New Bag 01/28/2024 11:37 AM FORMS DESIGNER 4.5 g 25 mL/hr polyethylene glycol (GLYCOLAX, MIRALAX) packet 17 g 17 g, Oral, 2 TIMES DAILY PRN, Starting on 01/25/24 at 2037, Until [place] 02/05/24 at 0853, Constipation - 1st line, Dilute dose in 120 - 240 mL of beverage.Hold for loose stools (loose, liquid, mucoid, soft, watery stool that takes the shape of the container) or greater than 2 moderate or larger stools in 24hrsIndications:Constipation Given 02/05/2024 3:13 AM FORMS DESIGNER 17 g polyethylene glycol (GLYCOLAX, MIRALAX) packet 17 g 17 g, Oral, 2 TIMES DAILY, First dose (after last modification) on Fri02/05/24 at 0930, Until Discontinued, Dilute dose in 120 - 240 mL of beverage.Hold for loose stools (loose, liquid, mucoid, soft, watery stool that takes the shape of the container) or greater than 2 moderate or larger stools in 24hrsIndications:Constipation Given 02/08/2024 10:25 AM FORMS DESIGNER 17 g Given 02/07/2024 9:33 PM FORMS DESIGNER 17 g Given 02/06/2024 7:58 AM FORMS DESIGNER 17 g polyethylene glycol (GLYCOLAX, MIRALAX) packet 34 g 34 g, Oral, ONCE, 1 dose, On 02/07/24 at 1800, Dilute dose in 120 - 240 mL of beverage. Given 02/07/2024 6:52 PM FORMS DESIGNER 34 g potassium chloride (KLOR-CON) packet 20 mEq 20 mEq, Per NG tube, EVERY 2 HOURS, 2 doses, First dose on Fri01/27/24 at 0900, Last dose on Fri01/27/24 at 1100, Dissolve each packet in at least 120 mL of cold water or other beverage prior to administration. If GI irritation occurs, increase dilution. Given 01/27/2024 11:18 AM FORMS DESIGNER 20 mEq Given 01/27/2024 9:18 AM FORMS DESIGNER 20 mEq potassium chloride (KLOR-CON) packet 20 mEq 20 mEq, Oral, 2 TIMES DAILY WITH MEALS, First dose on Fri02/08/24 at 1800, Until Discontinued, Dissolve each packet in at least 120 mL of cold water or other beverage prior to administration. If GI irritation occurs, increase dilution. Given 02/09/2024 8:21 AM FORMS DESIGNER 20 mEq Given 02/08/2024 6:07 PM FORMS DESIGNER 20 mEq potassium chloride (KLOR-CON) packet 40 mEq 40 mEq, Oral, ONCE, 1 dose, On 02/09/24 at 1000, Dissolve each packet in at least 120 mL of cold water or other beverage prior to administration. If GI irritation occurs, increase dilution. Given 02/09/2024 9:50 AM FORMS DESIGNER 40 mEq potassium chloride IVPB 20 mEq 100 mL 20 mEq, Intravenous, EVERY HOUR, 2 doses, First dose on Fri01/26/24 at 0900, Last dose on Fri01/26/24 at 1000, Administer over 1 Hours New Bag 01/26/2024 10:31 AM FORMS DESIGNER 20 mEq New Bag 01/26/2024 9:30 AM FORMS DESIGNER 20 mEq predniSONE (DELTASONE) tablet 10 mg 10 mg, Oral, DAILY WITH BREAKFAST, First dose (after last modification) on Fri02/09/24 at 0900, Until Discontinued Given 02/09/2024 8:21 AM FORMS DESIGNER 10 mg predniSONE (DELTASONE) tablet 20 mg 20 mg, Oral, DAILY WITH BREAKFAST, First dose (after last modification) on Fri02/06/24 at 0900, Until Discontinued Given 02/08/2024 10:28 AM FORMS DESIGNER 20 mg Given 02/06/2024 7:58 AM FORMS DESIGNER 20 mg predniSONE (DELTASONE) tablet 30 mg 30 mg, Oral, DAILY WITH BREAKFAST, First dose on Fri02/03/24 at 0900, Until Discontinued Given 02/05/2024 8:43 AM FORMS DESIGNER 30 mg Given 02/04/2024 8:45 AM FORMS DESIGNER 30 mg Given 02/03/2024 10:05 AM FORMS DESIGNER 30 mg Prochlorperazine Edisylate (COMPAZINE) injection 10 mg 10 mg, Intravenous, EVERY 6 HOURS PRN, Starting on Fri01/25/24 at 2040, Until Fri02/09/24 at 2110, Nausea - 3rd line, Second Line Antiemetic Give if nausea/vomiting recurs after ondansetron. propofol (DIPRIVAN) injection 5-50 mcg/kg/min ? 72.4 kg (2.172-21.72 mL/hr, rounded to 2.2-21.7 mL/hr), Intravenous, CONTINUOUS, Starting on Fri01/25/24 at 2230, Until Fri01/26/24 at 1141, 1) Initiate infusion at 25 mcg/kg/min 2) Goal for Sedation is a RASS Score of -2 to 0. 3) Titrate by 5 mcg/kg/min increments every 5 minutes to Sedation Goal. 4) Contact physician if Sedation Goal not achieved at maximum of ordered dose range. Rate Change 01/26/2024 10:24 AM FORMS DESIGNER 5 mcg/kg/min 2.2 mL/hr Rate Change 01/26/2024 1:00 AM FORMS DESIGNER 10 mcg/kg/min 4.3 mL/hr Rate Change 01/26/2024 12:00 AM FORMS DESIGNER 15 mcg/kg/min 6.5 mL/h r propofol (DIPRIVAN) injection 5-50 mcg/kg/min ? 72.4 kg (2.172-21.72 mL/hr, rounded to 2.2-21.7 mL/hr), Intravenous, CONTINUOUS, Starting on 01/26/24 at 1230, Until [place] 01/29/24 at 1036, 1) Initiate infusion at 10 mcg/kg/min 2) Goal for Sedation is a RASS Score of -2 to 0. 3) Titrate by 5 mcg/kg/min increments every 5 minutes to Sedation Goal. 4) Contact physician if Sedation Goal not achieved at maximum of ordered dose range. Rate Change 01/29/2024 4:45 AM FORMS DESIGNER 20 mcg/kg/min 8.7 mL/hr New Bag 01/29/2024 4:44 AM FORMS DESIGNER 25 mcg/kg/min 10.9 mL/hr New Bag 01/28/2024 9:20 PM FORMS DESIGNER 25 mcg/kg/min 10.9 mL/hr PROPOFOL 1000 MG/100ML IV EMUL 1 dose, Starting on Fri01/25/24 at 2204, Until Fri01/25/24 at 2207, Created by hollie gan QUEtiapine (SEROquel) tablet 50 mg 50 mg, Oral, NIGHTLY, First dose (after last modification) on Fri02/04/24 at 1830, Until Discontinued Given 02/08/2024 9:43 PM FORMS DESIGNER 50 mg Given 02/07/2024 9:33 PM FORMS DESIGNER 50 mg Given 02/05/2024 9:48 PM FORMS DESIGNER 50 mg senna (SENOKOT) tablet 8.6 mg 8.6 mg (1 Tablet), Oral, 2 TIMES DAILY PRN, Starting on 01/25/24 at 2037, Until Fri02/09/24 at 2110, Constipation - 2nd line Given 02/08/2024 10:25 AM FORMS DESIGNER 8 .6 mg sulfur hexafluoride microsphere (LUMASON) 25 mg in 0.9% sodium chloride (diluent for Lumason) 5 mL total volume syringe 2-4 mL, Intravenous, ONCE, 1 dose, On Fri01/26/24 at 0830, Only to be administered by a certified early childhood educator aide. Dosing: Adult: Cardiovascular imaging: IV: 2 mL during echocardiography; may repeat once during procedure to prolong contrast enhancement. Note: Adjust the mechanical index for the ultrasound device to 0.8 or lower after baseline non-contrast echocardiography is complete. Continue imaging following injection. Given 01/26/2024 8:30 AM FORMS DESIGNER 3 mL tiotropium-olodaterol (STIOLTO RESPIMAT) 2.5-2.5 MCG/ACT inhaler 2 Puff 2 Puff, Inhalation, DAILY, First dose on Fri02/04/24 at 0930, Until Discontinued, For disposal - bag and return to Pharmacy Given 02/09/2024 7:45 AM FORMS DESIGNER 2 Puffs Given 02/08/2024 7:18 AM FORMS DESIGNER 2 Puffs Given 02/07/2024 7:13 AM FORMS DESIGNER 2 Puffs torsemide (DEMADEX) tablet 40 mg 40 mg, Oral, EVERY MORNING, First dose on Fri02/09/24 at 0930, Until Discontinued Given 02/09/2024 9:50 AM FORMS DESIGNER 40 mg TRANSDERMAL PATCH ACKNOWLEDGEMENT Miscellaneous, NIGHTLY, First dose on Fri01/31/24 at 2230, Until Discontinued, This order is a communication order only. The patient has a lidocaine transdermal patch. Please use the Acknowledged' MAR action when documenting on the MAR. documented in this encounter Active and Recently Administered Medications Times are shown in FORMS DESIGNER. Scheduled Medication Order 02/07/2024 02/08/2024 02/09/2024 albuterol (PROVENTIL, VENTOLIN) (2.5 MG/3ML) 0.083% nebulizer solution 2.5 mg 2.5 mg, Nebulization, 3 TIMES DAILY, First dose on Fri02/02/24 at 1300, Until Discontinued, For RTA Severity Level 2 0714 (Given - Provider: Chata Morrell, MOVIE SHOT CAMERA OPERATOR)1254 (Given - Provider: Courtney Alexis, MOVIE SHOT CAMERA OPERATOR)2054 (Given - Provider: Loraine Nagy, MOVIE SHOT CAMERA OPERATOR) 0718 (Given - Provider: Courtney Alexis MOVIE SHOT CAMERA OPERATOR)1328 (Given - Provider: Courtney Alexis MOVIE SHOT CAMERA OPERATOR)2048 (Given - Provider: Luis Manuel Wheeler, RT) 0744 (Given - Provider: Courtney Alexis, MOVIE SHOT CAMERA OPERATOR)1314 (Given - Provider: Courtney Alexis MOVIE SHOT CAMERA OPERATOR) aspirin chewable tablet 81 mg(Linked Group 1) 81 mg, Oral, DAILY, First dose on 01/25/24 at 2100, Until Discontinued 0900 (Not Given - Provider: Didi Sellers RN - Reason: NPO) 1025 (Given - Provider: Roxana Barr RN) 0821 (Given - Provider: Marcelo Denise, SABRINA) diatrizoate meglumine-sodium (GASTROGRAFIN) 66-10 % solution 90 mL (COMPLETED) 90 mL, Oral, ONCE, 1 dose, On 02/07/24 at 1500 1155 (Given - Provider: Jessica Lee, RTR) enoxaparin (LOVENOX) injection 40 mg 40 mg, Subcutaneous, EVERY 24 HOURS SCHEDULED (Daily), First dose (after last modification) on Debra 01/29/24 at 0900, Until Discontinued 1041 (Given - Provider: Didi Sellers RN) 1025 (Given - Provider: Roxana Barr RN) 0820 (Given - Provider: Marcelo Denise, SABRINA) furosemide (LASIX) injection 40 mg (COMPLETED) 40 mg, Intravenous, ONCE, 1 dose, On 02/08/24 at 0600 0549 (Given - Provider: Elsa Weaver RN) furosemide (LASIX) injection 40 mg (CANCELED) 40 mg, Intravenous, 2 TIMES DAILY WITH MEALS, First dose (after last modification) on 02/08/24 at 1200, Until Discontinued 1252 (Given - Provider: Roxana Barr RN)1807 (Given - Provider: Roxana Barr, SABRINA) 0821 (Not Given - Provider: Marcelo Denise, SABRINA - Reason: Loss of IV access) lacosamide (VIMPAT) injection 100 mg(Linked Group 2) 100 mg, Intravenous, 2 TIMES DAILY, First dose on Fri02/06/24 at 2330, Until Discontinued, Administer over 5 Minutes 1040 (Given - Provider: Didi Sellers RN)2132 (See Alternative - Provider: Rika Gillis RN) 1024 (See Alternative - Provider: Roxana Barr, SABRINA)2142 (See Alternative - Provider: Melissa Chowdhury, RN) 08 (See Alternative - Provider: Marcelo Denise, SABRINA) lacosamide (VIMPAT) tablet 100 mg(Linked Group 2) 100 mg, Oral, 2 TIMES DAILY, First dose on Fri02/06/24 at 2330, Until Discontinued 1040 (See Alternative - Provider: Didi Sellers RN)2131 (Given - Provider: Rika Gillis RN) 1024 (Given - Provider: Roxana Barr, SABRINA)2142 (Given - Provider: Melissa Chowdhury, SABRINA) 820 (Given - Provider: Marcelo Denise, SABRINA) lactulose (CHRONULAC) 10 GM/15ML solution 20 g () 20 g, Oral, EVERY 4 HOURS, 4 doses, First dose (after last reorder) on 02/07/24 at 1630, Last dose on 02/08/24 at 0430 1701 (Given - Provider: Didi Sellers RN)1930 (Given - Provider: Florin Ley RN) 0030 (Not Given - Provider: Florin Ley RN - Reason: Patient/family refused)0430 (Not Given - Provider: Elsa Weaver RN - Reason: Patient/family refused) levETIRAcetam (KEPPRA) injection 1,000 mg(Linked Group 3) 1,000 mg, Intravenous, 2 TIMES DAILY, First dose on Fri02/06/24 at 2330, Until Discontinued, Administer over 2 Minutes 1040 (Given - Provider: Didi Sellers RN)2132 (See Alternative - Provider: Rika Gillis RN) 1024 (See Alternative - Provider: Roxana Barr, SABRINA)2142 (See Alternative - Provider: Melissa Chowdhury, SABRINA) 820 (See Alternative - Provider: Marcelo Denise, SABRINA) levETIRAcetam (KEPPRA) tablet 1,000 mg(Linked Group 3) 1,000 mg, Oral, 2 TIMES DAILY, First dose on Fri02/06/24 at 2330, Until Discontinued 1040 (See Alternative - Provider: Didi Sellers RN)2132 (Given - Provider: Rika Gillis, SARBINA) 1025 (Given - Provider: Roxana Barr RN)2142 (Given - Provider: Melissa Chowdhury RN) 0821 (Given - Provider: Marcelo Denise, SABRINA) Lidocaine 4 % patch 1 Patch 1 Patch, Transdermal, NIGHTLY, First dose on 01/31/24 at 2230, Until Discontinued, Administer over 12 Hours, Application Site: Back - Remove patch after 12 hours 0958 (Patch Removed - Provider: Didi Sellers RN)2132 (Patch Applied - Provider: Rika Gillis, SABRINA) 0933 (Patch Removed - Provider: Roxana Barr RN)2199 (Not Given - Provider: Melissa Chowdhury RN - Reason: Patient/family refused - Comment: patient reports he does not want this tonight) polyethylene glycol (GLYCOLAX, MIRALAX) packet 17 g 17 g, Oral, 2 TIMES DAILY, First dose (after last modification) on Debra 02/05/24 at 0930, Until Discontinued, Dilute dose in 120 - 240 mL of beverage.Hold for loose stools (loose, liquid, mucoid, soft, watery stool that takes the shape of the container) or greater than 2 moderate or larger stools in 24hrs 0900 (Not Given - Provider: Didi Sellers RN - Reason: NPO)2132 (Given - Provider: Rika Gillis RN) 102 (Given - Provider: Roxana Barr RN)2199 (Not Given - Provider: Melissa Chowdhury RN - Reason: Patient/family refused - Comment: patient does not want this before going to bed) 0900 (Not Given - Provider: Marcelo Denise, SABRINA - Reason: Contraindicated - Comment: thickened liquids) polyethylene glycol (GLYCOLAX, MIRALAX) packet 34 g (COMPLETED) 34 g, Oral, ONCE, 1 dose, On 02/07/24 at 1800, Dilute dose in 120 - 240 mL of beverage. 185 (Given - Provider: Didi Sellers RN) potassium chloride (KLOR-CON) packet 20 mEq 20 mEq, Oral, 2 TIMES DAILY WITH MEALS, First dose on 02/08/24 at 1800, Until Discontinued, Dissolve each packet in at least 120 mL of cold water or other beverage prior to administration. If GI irritation occurs, increase dilution. 1807 (Given - Provider: Roxana Barr RN) 0821 (Given - Provider: Marcelo Denise RN)1800 (Not Given - Provider: Marcelo Denise RN - Reason: Patient/family refused) potassium chloride (KLOR-CON) packet 40 mEq (COMPLETED) 40 mEq, Oral, ONCE, 1 dose, On Fri02/09/24 at 1000, Dissolve each packet in at least 120 mL of cold water or other beverage prior to administration. If GI irritation occurs, increase dilution. 0950 (Given - Provid er: Marcelo Denise RN) predniSONE (DELTASONE) tablet 10 mg 10 mg, Oral, DAILY WITH BREAKFAST, First dose (after last modification) on Fri02/09/24 at 0900, Until Discontinued 0821 (Given - Provid er: Marcelo Denise RN) predniSONE (DELTASONE) tablet 20 mg (CANCELED) 20 mg, Oral, DAILY WITH BREAKFAST, First dose (after last modification) on Fri02/06/24 at 0900, Until Discontinued 0900 (Not Given - Provider: Didi Sellers RN - Reason: NPO) 1028 (Given - Provider: Roxana Barr RN) QUEtiapine (SEROquel) tablet 50 mg 50 mg, Oral, NIGHTLY, First dose (after last modification) on Fri02/04/24 at 1830, Until Discontinued 2132 (Given - Provider: Rika Gillis RN) 2142 (Given - Provider: Melissa Chowdhury RN) tiotropium-olodaterol (STIOLTO RESPIMAT) 2.5-2.5 MCG/ACT inhaler 2 Puff 2 Puff, Inhalation, DAILY, First dose on Fri02/04/24 at 0930, Until Discontinued, For disposal - bag and return to Pharmacy 07 (Given - Provider: Chata Morrell CRT) 0718 (Given - Provider: Courtney Alexis CRT) 0745 (Given - Provider: Courtney Alexis CRT) torsemide (DEMADEX) tablet 40 mg 40 mg, Oral, EVERY MORNING, First dose on Fri02/09/24 at 0930, Until Discontinued 0950 (Given - Provid er: Marcelo Denise RN) TRANSDERMAL PATCH ACKNOWLEDGEMENT Miscellaneous, NIGHTLY, First dose on 01/31/24 at 2230, Until Discontinued, This order is a communication order only. The patient has a lidocaine transdermal patch. Please use the Acknowledged' APR action when documenting on the APR. 2199 (Acknowledged - Provider: Rika Gillis RN) 2199 (Acknowledged - Provider: Melissa Chowdhury RN) PRN Medication Order 02/07/2024 02/08/2024 02/09/2024 acetaminophen (TYLENOL) suppository 650 mg(Linked Group 4) 650 mg, Rectal, EVERY 4 HOURS PRN, Starting on 01/25/24 at 2038, Until Fri02/09/24 at 2109, Mild pain or more severe pain if patient requests, Fever, If patient is taking oral intake without complications and both PO/TN orders are active, administer through the oral route. acetaminophen (TYLENOL) tablet 650 mg(Linked Group 4) 650 mg, Oral, EVERY 4 HOURS PRN, Starting on 01/25/24 at 2038, Until Fri02/09/24 at 2109, Mild pain or more severe pain if patient requests, Fever, If patient is taking oral intake without complications and both PO/TN orders are active, administer through the oral route. albuterol (PROVENTIL, VENTOLIN) (2.5 MG/3ML) 0.083% nebulizer solution 2.5 mg 2.5 mg, Nebulization, EVERY 6 HOURS PRN, Starting on Fri02/02/24 at 0900, Until Fri02/09/24 at 2109, Wheezing, Shortness of Breath, For RTA Severity Level 2 EPINEPHrine (Anaphylaxis) injection 0.3 mg 0.3 mg, Intramuscular, ONCE PRN, 1 dose, Starting on Fri01/26/24 at 0744, Until Fri02/09/24 at 2109, Other, Use during or immediately following echo cardiogram following ELECTRONIC EQUIPMENT REPAIRMEN Allergic Reaction with Respiratory Compromise Standing Order, Use during or immediately following echo cardiogram following ELECTRONIC EQUIPMENT REPAIRMEN Allergic Reaction with Respiratory Compromise Standing Order, notify ordering provider if utilized, call rapid response or 911 (off -site). hydrALAZINE (APRESOLINE) injection 10 mg 10 mg, Intravenous, EVERY 1 HOUR PRN, Starting on 01/25/24 at 2032, Until Fri02/09/24 at 2109, Heart rate less than 60, Administer 10 mg every hour IVP over 2 minutes for SBP greater than 220. May repeat initial dose in 10 minutes x 1. If BP remains greater than 220 or PRN required hourly x2 consecutive hours, call provider labetalol (NORMODYNE;TRANDATE) injection 10 mg 10 mg, Intravenous, EVERY 1 HOUR PRN, Starting on Fri01/25/24 at 2032, Until Fri02/09/24 at 2109, Non - Reperfusion. Administer 10 mg every hour IVP over 2 minutes for SBP greater than 220. May repeat initial dose in 10 minutes x 1. If BP remains greater than 220 or PRN required hourly x2 consecutive hours, call provider , Heart rate greater than 60 LORazepam (ATIVAN) injection 2 mg 2 mg, Intravenous, EVERY 1 HOUR PRN, Starting on Fri01/25/24 at 1852, Until Fri02/09/24 at 2109, Other, Seizures, For intramuscular administration: Administer undiluted. For intravenous administration: Dilute with an equal volume of NS prior to administration. Gently invert to mix. Maximum rate of IV administration is 2mg/min. magnesium hydroxide (MILK OF MAGNESIA) 400 MG/5ML suspension 30 mL 30 mL, Oral, DAILY PRN, Starting on Fri01/25/24 at 2036, Until Fri02/09/24 at 2109, Constipation - 3rd line, Magnesium hydroxide 400 mg/5 ml = 166.7 mg elemental magnesium/5ml. Hold for loose stools (loose, liquid, mucoid, soft, watery stool that takes the shape of the container) or greater than 2 moderate or larger stools in 24hrs metoclopramide (REGLAN) injection 5 mg 5 mg, Intravenous, EVERY 6 HOURS PRN, Starting on Fri01/25/24 at 1613, Until Fri02/09/24 at 2109, Vomiting, Nausea - 1st line nicotine (NICODERM CQ) 21 MG/24HR patch 1 Patch 1 Patch, Transdermal, DAILY PRN, Starting on Fri01/30/24 at 1323, Until Fri02/09/24 at 2109, Administer over 24 Hours, smoking cessation, For disposal of medication AND containers- black bin ondansetron (ZOFRAN) injection 4 mg 4 mg, Intravenous, EVERY 6 HOURS PRN, Starting on Fri01/25/24 at 1613, Until Fri02/09/24 at 2110, Nausea - 2nd line oxyCODONE-acetaminophen (PERCOCET) 5-325 MG per tablet 1 Tablet 1 Tablet, Oral, EVERY 4 HOURS PRN, Starting on Fri02/04/24 at 0445, Until Fri02/09/24 at 2110, Moderate pain or more severe pain if patient requests, Maximum dose of acetaminophen is 4000 mg from all sources in 24 hours. If pain not effectively managed, then contact provider to discuss possibly 1) adding scheduled opioid dosing or non-opioid pain treatments, 2) increasing dosage, or 3) changing to [employer]. 1918 (Given - Provider: Florin Ley RN) 0536 (Given - Provider: Hattie Doshi RN)1504 (Given - Provider: Roxana Barr, SABRINA) 0747 (Given - Provider: Marcelo Denise RN) Prochlorperazine Edisylate (COMPAZINE) injection 10 mg 10 mg, Intravenous, EVERY 6 HOURS PRN, Starting on 01/25/24 at 2040, Until Fri02/09/24 at 2110, Nausea - 3rd line, Second Line Antiemetic Give if nausea/vomiting recurs after ondansetron. senna (SENOKOT) tablet 8.6 mg 8.6 mg (1 Tablet), Oral, 2 TIMES DAILY PRN, Starting on Fri01/25/24 at 2037, Until Fri02/09/24 at 2110, Constipation - 2nd line 1025 (Given - Provider: Roxana Barr RN) Linked Groups Order Group 1: aspirin chewable tablet 81 mgJump to med 81 mg, Oral, DAILY, First dose on Fri01/25/24 at 2100, Until Discontinued Or aspirin suppository 300 mg (CANCELED) 300 mg, Rectal, DAILY, First dose on Fri01/25/24 at 2100, Until Discontinued Group 2: lacosamide (VIMPAT) injection 100 mgJump to med 100 mg, Intravenous, 2 TIMES DAILY, First dose on Fri02/06/24 at 2330, Until Discontinued, Administer over 5 Minutes Or lacosamide (VIMPAT) tablet 100 mgJump to med 100 mg, Oral, 2 TIMES DAILY, First dose on Fri02/06/24 at 2330, Until Discontinued Group 3: levETIRAcetam (KEPPRA) injection 1,000 mgJump to med 1,000 mg, Intravenous, 2 TIMES DAILY, First dose on Fri02/06/24 at 2330, Until Discontinued, Administer over 2 Minutes Or levETIRAcetam (KEPPRA) tablet 1,000 mgJump to med 1,000 mg, Oral, 2 TIMES DAILY, First dose on Fri02/06/24 at 2330, Until Discontinued Group 4: acetaminophen (TYLENOL) tablet 650 mgJump to med 650 mg, Oral, EVERY 4 HOURS PRN, Starting on Fri01/25/24 at 2038, Until Fri02/09/24 at 2109, Mild pain or more severe pain if patient requests, Fever, If patient is taking oral intake without complications and both PO/TN orders are active, administer through the oral route. Or acetaminophen (TYLENOL) suppository 650 mgJump to med 650 mg, Rectal, EVERY 4 HOURS PRN, Starting on Fri01/25/24 at 2038, Until Fri02/09/24 at 2110, Mild pain or more severe pain if patient requests, Fever, If patient is taking oral intake without complications and both PO/TN orders are active, administer through the oral route. 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
--- OUTSIDE RECORDS SUMMARY | 2024-02-18 04:11 | XMS_ITS | Encounter Summary ---
Author Organization [facility] Address [address] [place] [address] Phone Care Team Providers Care Coffee Shop Attendant Name Role Phone Provider, Unknown Primary Care Provider Unavaila ble Reason for Visit * Reason Comments Seizure Encounter Details Date Type Department Care Team (Late st Contact Info) Description 01/27/2024 10:30 AM MEDICAL TECHNOLOGIST CHEMISTRY EEG [facility] [address] [place] [address] Spenser Leonard MD [address] [place] [address] Seizure (HCC) (Primary Dx) Discharge Disposition: Discharged to home or Selfcare Social History Tobacco Use Types Packs/Day Years Used Date Smoking Tobacco: Former Cigarettes [facility] Utilities Answer Date Recorded In the past 12 months has [employer], [employer], oil, or water [employer] threatened to shut off services in your [...] How often do you attend chur or protestant services? Patient unable to answer 01/25/2024 Do you belong to any clubs o r organizations such as catholic groups, unions, fraternal or athletic groups, or [...] and heating? Patient unable to answer 01/25/2024 [facility] - Occupational Stress Questionnaire Answer Date Recorded [...] any time in the past 12 m onths, were you homeless or living in a fci (including now)? Patient unable to answer 01/25/2024 Sex and Gender Information Value Date Recorded Sex Assigned at Not on file Legal Sex Male 11:18 AM MEDICAL TECHNOLOGIST CHEMISTRY Gender Identity Not on file Sexual Orientation Not on file documented as of this encounter Procedure Notes * Perez Nelson MD - 01/27/2024 10:30 AM CSTAssociated Order(s): EEG Electroencephalography Date of EE01/27/24 Clinical History: The patient is a 78 year old male with cardiac arrest. Suspicious for seizure. EEG Description: This EEG was recorded on a Spalding with 18 cranial leads and an EKG. The International 10-20 systemwas used for electrode placement. Background: The recording was done during an obtunded state. There was moderate diffuse generalized slowing in the theta range, with a posterior dominant rhythm of 6 - 7 hz. Sleep: No sleep architecture noted. Activation Procedures: Photic stimulation and hyperventilation were not performed. Epileptic Discharges: No epileptic discharges noted. Interpretation: This is a abnormal EEG with diffuse generalized slowing consistent with a moderate encephalopathy. No epileptic discharges were seen. Clinical correlation is recommended. CAL TECHNOLOGIST CHEMISTRY documented in this encounter Plan of Treatment Not on file documented as of this encounter Procedures Procedure Name Priority Date/Time Associated Diagnosis Comments EEG Routine 01/27/2024 10:30 AM MEDICAL TECHNOLOGIST CHEMISTRY documented in this encounter Results * EEG (01/27/2024 10:30 AM MEDICAL TECHNOLOGIST CHEMISTRY) Narrative Perez Nelson MD - 01/27/2024 10:30 AM MEDICAL TECHNOLOGIST CHEMISTRY Perez Nelson MD ? 01/28/2024 10:25 PM Electroencephalography Date of EE01/27/24 Clinical History: The patient is a 78 year old male with cardiac arrest. ?? Suspicious for seizure. EEG Description: This EEG was recorded on a Spalding with 18 cranial leads and an EKG. [...] Spenser Demarco MD NEUROLOGY ORDERABLES Final Result documented in this encounter Visit Diagnoses Diagnosis Seizure (HCC)- Primary Other convulsions documented in this encounter Care Teams Coffee Shop Attendant Relationship Specialty Start Date End Date Provider, Unknown UNKNOWN PCP - General 01/25/24 documented as of this encounter
== END 2024-02-14 23:34 | disposition hospice, home (50) | DRG 189 ==
LOC: ANHED 12:16 → ANHIMU 13:42 → ANH2MED 02-14 18:18 → ANHIMU 02-17 12:19
PROVIDERS: Nurse Practitioner Adult Health; Student in an Organized Health Care Education/Training Program; Admitting Provider Internal Medicine; Emergency Provider Physician Assistant; Visit Provider General Practice
DX: J96.01 Acute respiratory failure with hypoxia (principal); I50.33 Acute on chronic diastolic (congestive) heart failure; J18.9 Pneumonia, unspecified organism; J44.1 Chronic obstructive pulmonary disease with (acute) exacerbation; J44.0 Chronic obstructive pulmonary disease with (acute) lower respiratory infection; I25.10 Atherosclerotic heart disease of native coronary artery without angina pectoris; I35.0 Nonrheumatic aortic (valve) stenosis; I34.2 Nonrheumatic mitral (valve) stenosis; I27.20 Pulmonary hypertension, unspecified; E11.9 Type 2 diabetes mellitus without complications; N40.0 Benign prostatic hyperplasia without lower urinary tract symptoms; N31.9 Neuromuscular dysfunction of bladder, unspecified; G40.909 Epilepsy, unspecified, not intractable, without status epilepticus; F17.210 Nicotine dependence, cigarettes, uncomplicated; Z20.822 Contact with and (suspected) exposure to COVID-19; Z79.01 Long term (current) use of anticoagulants; Z79.82 Long term (current) use of aspirin; Q54.9 Hypospadias, unspecified; Z51.5 Encounter for palliative care
CPT/HCPCS: 36415; 36600; 71045; 71046; 71275; 80048; 80053; 82375; 82805; 82948; 83050; 83880; 84145; 84484; 85018; 85025; 85055; 87040; 87637; 92610; 92611; 93005; 93306; 94640; 96365; 96367; 96375; 96376; 99285; A9270; G0378; J0456; J0696; J1940; J2270; J7030; Q9967